=== PATIENT | female | born 1935 | race Caucasian/White ===

== ENCOUNTER 2017-11-14 10:08 | Observation (INO) | payer OTHER ==
--- NOTE | 2017-11-14 10:32 | RAD REPORT ---
EXAM DESCRIPTION: CT - Ct Stroke Brain Wo Cont - 11/14/2017 10:24 am CLINICAL HISTORY: Aphasia, acute CVA, stroke protocol study CLINICAL HISTORY: CT February 2016 TECHNIQUE: Axial 5 millimeter thick images of the head were obtained without IV contrast. All CT scans are performed using dose optimization technique as appropriate and may include automated exposure control or mA/KV adjustment according to patient size. FINDINGS: No intracranial hemorrhage, mass, or cerebral edema. No acute cortical based infarction. A trophy changes are mild. Mild chronic ischemic changes are present. Ventricular size is in proportion to volume loss. Dense arterial tree calcifications are present. No extra-axial fluid collections. G ray matter-white matter differentiation is preserved. Visualized portions of the mastoid air cells, paranasal sinuses, and orbits are unremarkable. Findings telephoned to doctor Simmons 10:28 a.m.. IMPRESSION: No CT evidence of acute intracranial process. Mild atrophy and mild chronic ischemic changes are similar to prior imaging. Chronic ischemic changes can mask nonhemorrhagic acute infarction. MR brain followup can be obtained if there is ongoing concern for acute ischemia.
--- NOTE | 2017-11-14 10:54 | EDPHYS ---
Physician Documentation [facility] Name: Radha Lara Age: 82 yrs Sex: Female : 1935 Arrival Date: 11/14/2017 Time: 10:13 Bed 2 Private MD: Elli Britt ED Physician Reynold Paredes HPI: 11/14 10:58 This 82 yrs old Female presents to ER via Wheelchair with complaints of S/S gs of Possible Stroke. 10:58 The patient's problem is reported as dysphasia, expressive aphasia. Onset: The gs symptoms/episode began/occurred today, at 08:00. Duration: This was a single incident. The symptoms are alleviated by nothing. The symptoms are aggravated by nothing. Associated signs and symptoms: Pertinent negatives: agitation, blurred vision, confusion, shortness of breath, vertigo, weakness. Severity of symptoms: At their worst the symptoms were moderate in the emergency department the symptoms have improved markedly, essentially resolved. The patient has experienced similar episodes in the past, a few times. Historical: - Allergies: 10:48 Aspirin; jl7 10:48 Codeine; jl7 10:48 Iodinated Contrast Media - IV Dye; jl7 - Home Meds: 10:48 carvedilol 25 mg Oral tab 1 tab 2 times per day [Active]; valsartan 160 mg Oral tab 1 jl7 tab once daily [Active]; verapamil 240 mg Oral TbER 1 tab once daily [Active]; hydralazine 50 mg Oral tab 1 tab 4 times per day [Active]; Eliquis 5 mg Oral tab 2 times per day [Active]; metformin 500 mg Oral Tb24 1 tab 2 times per day [Active]; omeprazole 40 mg Oral cpDR 1 cap once daily [Active]; Crestor 40 mg Oral tab once daily [Active]; ranitidine HCl 75 mg Oral tab as needed [Active]; cranberry Oral twice a day [Active]; Probiotic Oral [Active]; Multiple Vitamins Oral tab daily [Active]; vitamin E Oral once daily [Active]; Vitamin D3 1,000 unit Oral chew daily [Active]; Vitamin B-12 2,000 mcg Oral TbER daily [Active]; magnesium oxide 500 mg Oral cap [Active]; - PMHx: 10:48 Diabetes - NIDDM; Hypertension; Kidney stones; TIA; UTI; Atrial Fib; Acid reflux; jl7 Hyperlipidemia; - PSHx: 10:48 Tonsillectomy; blood clot in lung; stents in kidney; bone-spurs removed; triple bypass; jl7 Cholecystectomy; Hysterectomy; Triple Bypass; Stints in right kidney; Sleep Apnea; Cataract Surgery; - Immunization history:: Adult Immunizations unknown. - Social history:: The patient lives at home, Smoking status: Patient/guardian denies using tobacco. ROS: 10:58 All other systems are negative. gs Exam: 10:58 Head/Face: Normocephalic, atraumatic. Eyes: Pupils equal round and reactive to light, gs extra-ocular motions intact. Lids and lashes normal. Conjunctiva and sclera are non-icteric and not injected. Cornea within normal limits. Periorbital areas with no swelling, redness, or edema. ENT: Nares patent. No nasal discharge, no septal abnormalities noted. Tympanic membranes are normal and external auditory canals are clear. Oropharynx with no redness, swelling, or masses, exudates, or evidence of obstruction, uvula midline. Mucous membranes moist. Neck: Trachea midline, no thyromegaly or masses palpated, and no cervical lymphadenopathy. Supple, full range of motion without nuchal rigidity, or vertebral point tenderness. No Meningismus. Chest/axilla: Normal chest wall appearance and motion. Nontender with no deformity. No lesions are appreciated. Cardiovascular: Regular rate and rhythm with a normal S1 and S2. No gallops, murmurs, or rubs. Normal PMI, no JVD. No pulse deficits. Respiratory: Lungs have equal breath sounds bilaterally, clear to auscultation and percussion. No rales, rhonchi or wheezes noted. No increased work of breathing, no retractions or nasal flaring. Abdomen/GI: Soft, non-tender, with normal bowel sounds. No distension or tympany. No guarding or rebound. No evidence of tenderness throughout. Back: No spinal tenderness. No costovertebral tenderness. Full range of motion. Skin: Warm, dry with normal turgor. Normal color with no rashes, no lesions, and no evidence of cellulitis. MS/ Extremity: Pulses equal, no cyanosis. Neurovascular intact. Full, normal range of motion. Neuro: Awake and alert, GCS 15, oriented to person, place, time, and situation. Cranial nerves II-XII grossly intact. Motor strength 5/5 in all extremities. Sensory grossly intact. Cerebellar exam normal. Normal gait. 10:58 ECG was reviewed by the Attending Physician. Vital Signs: 10:26 BP 191 / 85; Pulse 54; Resp 16 S; Pulse Ox 100% on R/A; Pain 0/10; jl7 10:45 BP 216 / 83; Pulse 55; Resp 16 S; Pulse Ox 99% on R/A; jl7 11:00 BP 206 / 72; Pulse 51; Resp 16 S; Pulse Ox 100% on R/A; jl7 11:15 BP 199 / 60; Pulse 44; Resp 16 S; Pulse Ox 99% on R/A; jl7 11:30 BP 219 / 64; Pulse 53; Resp 16; Pulse Ox 99% ; jl7 11:45 BP 220 / 61; Pulse 53; Resp 16 S; Pulse Ox 99% on R/A; jl7 11:57 BP 169 / 100; Pulse 52; Resp 16 S; Pulse Ox 97% on R/A; Pain 0/10; jl7 12:00 BP 178 / 58; Pulse 54; Resp 18 S; Pulse Ox 98% on R/A; jl7 NIH Stroke Scale Scores: 10:21 NIHSS Score: 0 7 10:58 NIHSS Score: 0 MDM: 10:33 Patient medically screened. 10:58 Differential diagnosis: CVA, TIA, metabolic disorder, drug effects. Data reviewed: vital signs, nurses notes. Response to treatment: the patient's symptoms have markedly improved after treatment, and as a result, I will admit patient. ED course: no tpa discussed risks benefits and low to zero NIH pt doesn't not want so will not administer TPA. 11:02 Physician consultation: Edmundo Diamond MD and will see patient in inpatient room. 11/14 10:34 Order name: Basic Metabolic Panel; Complete Time: 11:38 11/14 10:34 Order name: CBC with Diff; Complete Time: 11:02 11/14 10:34 Order name: PT-INR; Complete Time: 11:38 11/14 10:34 Order name: Troponin (emerg Dept Use Only); Complete Time: 11:38 11/14 10:18 Order name: CT Stroke Brain w/o Contrast; Complete Time: 10:33 11/14 10:34 Order name: XRAY Chest (1 view); Complete Time: 11:38 11/14 10:34 Order name: EKG; Complete Time: 10:34 11/14 10:34 Order name: Cardiac monitoring; Complete Time: 11:03 11/14 10:57 Order name: CONS Physician Consult [facility] 11/14 12:31 Order name: Urine Dipstick--Ancillary (enter results) 11/14 12:35 Order name: Urine Dipstick-Ancillary [facility] 11/14 10:34 Order name: EKG - Nurse/Tech; Complete Time: 11:03 11/14 10:34 Order name: IV Saline Lock; Complete Time: 11:03 11/14 10:34 Order name: Labs collected and sent; Complete Time: 11:03 11/14 10:34 Order name: O2 Per Protocol; Complete Time: 11:03 11/14 10:34 Order name: O2 Sat Monitoring; Complete Time: 11:03 11/14 10:34 Order name: Urine Dipstick-Ancillary (obtain specimen); Complete Time: 12:40 gs EC:58 Rate is 56 beats/min. Rhythm is irregularly irregular. Q waves are Old. T waves are gs Normal. No ST changes noted. Clinical impression: Abnormal EKG without significant change. Interpreted by me. Administered Medications: 11:48 Drug: Enalaprilat 1.25 mg Route: IV; Rate: bolus; Site: right antecubital; jl7 11:51 Follow up: IV Status: Completed infusion jl7 Point of Care Testing: Blood Glucose: 10:18 Blood Glucose: 135 mg/dL; iw Ranges: Critical Glucose Levels:Adult <50 mg/dl or >400 mg/dl <40 mg/dl or >180 mg/dl Disposition: 11/14/17 10:53 Hospitalization ordered by Marielena Bañuelos for Observation. Preliminary diagnosis is Transient cerebral ischemic attacks and related syndromes. - Bed requested for Telemetry/MedSurg (observation). - Status is Observation. tw2 - Condition is Stable. - Problem is new. - Symptoms have improved. UTI on Admission? No Critical care time excluding procedures: 10:58 Critical care time: Bedside Care: 10 minutes, Consultation: 10 minutes, Family gs Intervention: 10 minutes. Total time: 30 minutes NIH Stroke Scale - NIH Stroke Score Date: 11/14/2017 Time: 10:21 Total Score = 0 1a. Level of Consciousness (LOC) - 0(Alert) 1b. Level of Consciousness (LOC) (Year \T\ Age) - 0(Both) 1c. LOC Commands (Open \T\ Closes Eyes/Business Services Sales Agent) - 0(Both) 2. Best Gaze (Lateral Gaze Paresis) - 0(Normal) 3. Visual Field Loss - 0(No visual loss) 4. Facial Palsy - 0(Normal) 5a. Left Arm: Motor (10-second hold) - 0(No drift) 5b. Right Arm: Motor (10-second hold) - 0(No drift) 6a. Left Leg: Motor (5-second hold - always test supine) - 0(No drift) 6b. Right Leg: Motor (5-second hold - always test supine) - 0(No drift) 7. Limb Ataxia (finger/nose \T\ heel/felix - test with eyes open) - 0(Absent) 8. Sensory Loss (pinprick arms/legs/face) - 0(Normal) 9. Best Language: Aphasia (description/naming/reading) - 0(No aphasia) 10. Dysarthria (speech clarity - read or repeat words) - 0(Normal) 11. Extinction and Inattention (visual/tactile/auditory/spatial/personal) - 0(No abnormality) Initials: jl7 NIH Stroke Scale - NIH Stroke Score Date: 11/14/2017 Time: 10:58 Total Score = 0 1a. Level of Consciousness (LOC) - 0(Alert) 1b. Level of Consciousness (LOC) (Year \T\ Age) - 0(Both) 1c. LOC Commands (Open \T\ Closes Eyes/Business Services Sales Agent) - 0(Both) 2. Best Gaze (Lateral Gaze Paresis) - 0(Normal) 3. Visual Field Loss - 0(No visual loss) 4. Facial Palsy - 0(Normal) 5a. Left Arm: Motor (10-second hold) - 0(No drift) 5b. Right Arm: Motor (10-second hold) - 0(No drift) 6a. Left Leg: Motor (5-second hold - always test supine) - 0(No drift) 6b. Right Leg: Motor (5-second hold - always test supine) - 0(No drift) 7. Limb Ataxia (finger/nose \T\ heel/felix - test with eyes open) - 0(Absent) 8. Sensory Loss (pinprick arms/legs/face) - 0(Normal) 9. Best Language: Aphasia (description/naming/reading) - 0(No aphasia) 10. Dysarthria (speech clarity - read or repeat words) - 0(Normal) 11. Extinction and Inattention (visual/tactile/auditory/spatial/personal) - 0(No abnormality) Initials: gs Signatures: Dispatcher [employer] EDSunshine Rao Tara RN RN tw2 Vicente Villatoro RN RN jl7 Diana Mahoney RN RN Reynold Guzmán MD MD
--- NOTE | 2017-11-14 10:54 | ER ---
Nurse's Notes [facility] Name: Radha Lara Age: 82 yrs Sex: Female : 1935 Arrival Date: 11/14/2017 Time: 10:13 Bed 2 Private MD: Elli Britt Diagnosis: Transient cerebral ischemic attacks and related syndromes Presentation: 11/14 10:12 Presenting complaint: Friend states: 2 days ago pt c/o right sided facial numbness and iw right sided weakness, yesterday felt normal, today while eating breakfast at 0900 she all of a sudden had a hard time speaking. Transition of care: patient was not received from another setting of care. 10:12 Method Of Arrival: Wheelchair iw 10:12 Acuity: YOLANDE 2 iw 10:30 No acute neurological deficit is noted. The patients blood glucose was checked before jl7 arriving to the hospital and was found to be normal. Onset of symptoms was November 14, 2017 at 09:00. Initial Sepsis Screen: Does the patient meet any 2 criteria? No. Patient's initial sepsis screen is negative. Does the patient have a suspected source of infection? No. Patient's initial sepsis screen is negative. Care prior to arrival: None. Triage Assessment: 10:26 The onset of the patients symptoms was November 14, 2017 at 09:00. jl7 10:30 General: Appears in no apparent distress. uncomfortable, Behavior is cooperative, jl7 anxious. 10:30 Neuro: Reports "I couldn't find my words.". jl7 Stroke Activation: Symptom onset < 3 hours Physician: Stroke Attending; Name: ; Notified At: ; Arrived At: Physician: Chief Stroke Resident; Name: ; Notified At: ; Arrived At: Physician: Stroke Resident; Name: ; Notified At: ; Arrived At: Physician: ED Attending; Name: ; Notified At: ; Arrived At: Physician: ED Resident; Name: ; Notified At: ; Arrived At: Historical: - Allergies: 10:48 Aspirin; jl7 10:48 Codeine; jl7 10:48 Iodinated Contrast Media - IV Dye; jl7 - Home Meds: 10:48 carvedilol 25 mg Oral tab 1 tab 2 times per day [Active]; valsartan 160 mg Oral tab 1 jl7 tab once daily [Active]; verapamil 240 mg Oral TbER 1 tab once daily [Active]; hydralazine 50 mg Oral tab 1 tab 4 times per day [Active]; Eliquis 5 mg Oral tab 2 times per day [Active]; metformin 500 mg Oral Tb24 1 tab 2 times per day [Active]; omeprazole 40 mg Oral cpDR 1 cap once daily [Active]; Crestor 40 mg Oral tab once daily [Active]; ranitidine HCl 75 mg Oral tab as needed [Active]; cranberry Oral twice a day [Active]; Probiotic Oral [Active]; Multiple Vitamins Oral tab daily [Active]; vitamin E Oral once daily [Active]; Vitamin D3 1,000 unit Oral chew daily [Active]; Vitamin B-12 2,000 mcg Oral TbER daily [Active]; magnesium oxide 500 mg Oral cap [Active]; - PMHx: 10:48 Diabetes - NIDDM; Hypertension; Kidney stones; TIA; UTI; Atrial Fib; Acid reflux; jl7 Hyperlipidemia; - PSHx: 10:48 Tonsillectomy; blood clot in lung; stents in kidney; bone-spurs removed; triple bypass; jl7 Cholecystectomy; Hysterectomy; Triple Bypass; Stints in right kidney; Sleep Apnea; Cataract Surgery; - Immunization history:: Adult Immunizations unknown. - Social history:: The patient lives at home, Smoking status: Patient/guardian denies using tobacco. Screenin:40 Abuse screen: Denies threats or abuse. Denies injuries from another. Nutritional jl7 screening: No deficits noted. Tuberculosis screening: No symptoms or risk factors identified. Fall Risk IV access (20 points). Mental Status- Oriented to own ability (0 pts). Total Glez Fall Scale indicates No Risk (0-24 pts). Assessment: 10:14 Reassessment: To CT via wheelchair with LAILA Marcos. jl7 10:20 General: Appears in no apparent distress. uncomfortable, Behavior is cooperative, jl7 anxious. Pain: Denies pain. Neuro: Level of Consciousness is awake, alert, obeys commands, Oriented to person, place, time, situation, Copier And Printer Field Technician are equal bilaterally Moves all extremities. Gait is steady, Speech is normal, Facial symmetry appears normal, Pupils are PERRLA. Cardiovascular: Denies chest pain, Heart tones S1 S2 present Patient's skin is warm and dry. Respiratory: Airway is patent Respiratory effort is even, unlabored, Respiratory pattern is regular, symmetrical, Breath sounds are clear bilaterally. Denies shortness of breath. GI: No signs and/or symptoms were reported involving the gastrointestinal system. Patient currently denies diarrhea, nausea, vomiting. : No signs and/or symptoms were reported regarding the genitourinary system. EENT: No signs and/or symptoms were reported regarding the EENT system. Derm: Skin is pink, warm \\T\\ dry. Musculoskeletal: No signs and/or symptoms reported regarding the musculoskeletal system. 10:30 T-PA (Activase) Screening: Contraindications: Is the patient on Aspirin, Heparin, or jl7 Warfarin: Yes. 10:35 The patient has not been NPO before screening. The patient is currently on the jl7 following diet: regular The patient is alert, and able to follow commands. The patient does not exhibit slurred or garbled speech. The patient is not exhibiting difficulty speaking. The patient does not exhibit difficulty understanding words. The patient is able to swallow own secretions with no drooling or need for suction. The patient did not tolerate one teaspoon of water. Drooling, immediate coughing, gurgling, or clearing of the throat was noted. Bedside swallow screening discontinued. Patient kept NPO until cleared by Speech Therapy or Physician. The patient failed the bedside swallow screening. The patient will be kept NPO until cleared by Speech Therapy or Physician. Provider notified of bedside swallow screening results: Reynold Paredes MD. 10:40 Reassessment: Daughter at bedside. 7 10:[address] Paredes, pt swallowing own secretions, ordered to re-assess swallow screen. jl7 Patient tolerated one teaspoon of water. No drooling, immediate coughing, gurgling, or clearing of the throat was noted. . The patient tolerated 90mL of water. No drooling, immediate coughing, gurgling, or clearing of the throat was noted. The patient passed the bedside swallow screening. Oral medications may be given as ordered. Contact Physician for further diet orders. Provider notified of bedside swallow screening results: Reynold Paredes MD. 11:20 Reassessment: No changes from previously documented assessment. Patient and/or family jl7 updated on plan of care and expected duration. Pain level reassessed. Patient is alert, oriented x 3, equal unlabored respirations, skin warm/dry/pink. Daughter remains at bedside. 12:00 Reassessment: Assisted pt to bathroom via wheel chair. Pt denies discomfort at this jl7 time. 12:15 Reassessment: Pt to MRI via wheelchair. jl7 Vital Signs: 10:26 BP 191 / 85; Pulse 54; Resp 16 S; Pulse Ox 100% on R/A; Pain 0/10; jl7 10:45 BP 216 / 83; Pulse 55; Resp 16 S; Pulse Ox 99% on R/A; jl7 11:00 BP 206 / 72; Pulse 51; Resp 16 S; Pulse Ox 100% on R/A; jl7 11:15 BP 199 / 60; Pulse 44; Resp 16 S; Pulse Ox 99% on R/A; jl7 11:30 BP 219 / 64; Pulse 53; Resp 16; Pulse Ox 99% ; jl7 11:45 BP 220 / 61; Pulse 53; Resp 16 S; Pulse Ox 99% on R/A; jl7 11:57 BP 169 / 100; Pulse 52; Resp 16 S; Pulse Ox 97% on R/A; Pain 0/10; jl7 12:00 BP 178 / 58; Pulse 54; Resp 18 S; Pulse Ox 98% on R/A; jl7 NIH Stroke Scale Scores: 10:21 NIHSS Score: 0 jl7 10:58 NIHSS Score: 0 ED Course: 10:13 Patient arrived in ED. mr 10:13 Elli Britt MD is Private Physician. mr 10:17 Vicente Villatoro, LAILA is Primary Nurse. jl7 10:20 Reynold Paredes MD is Attending Physician. gs 10:20 Triage completed. iw 10:23 CT Stroke Brain w/o Contrast In Process Unspecified. EDMS 10:26 Arm band placed on right wrist. jl7 10:30 Patient has correct armband on for positive identification. Placed in gown. Bed in low jl7 position. Call light in reach. Side rails up X2. monitoring and evaluation advisor on. Pulse ox on. NIBP on. Warm blanket given. 10:37 EKG done, by radio television technical director. reviewed by Reynold Paredes MD. at1 10:46 Missed attempt(s): 20 gauge in left antecubital area. jb1 10:46 Inserted saline lock: 24 gauge in right antecubital area, using aseptic technique. jb1 Blood collected. 10:53 Marielena Bañuelos MD is Hospitalizing Provider. gs 10:54 X-ray completed. Portable x-ray completed in exam room. Patient tolerated procedure jb2 well. 10:55 XRAY Chest (1 view) In Process Unspecified. EDMS 12:22 Patient moved to MRI via wheelchair. ka 12:45 Urine collected: clean catch specimen, cloudy, izabel colored. jb1 13:04 MRI completed. Patient tolerated well. Patient moved back from MRI. ka 13:23 No provider procedures requiring assistance completed. Patient admitted, IV remains in tw2 place. Administered Medications: 11:48 Drug: Enalaprilat 1.25 mg Route: IV; Rate: bolus; Site: right antecubital; jl7 11:51 Follow up: IV Status: Completed infusion jl7 Point of Care Testing: Blood Glucose: 10:18 Blood Glucose: 135 mg/dL; iw Ranges: Outcome: 10:53 Decision to Hospitalize by Provider. gs 13:23 Admitted to Med/surg accompanied by tech, with chart. tw2 13:23 Condition: stable 13:23 Instructed on the need for admit. 13:24 Patient left the ED. tw2 NIH Stroke Scale - NIH Stroke Score Date: 11/14/2017 Time: 10:21 Total Score = 0 1a. Level of Consciousness (LOC) - 0(Alert) 1b. Level of Consciousness (LOC) (Year \\T\\ Age) - 0(Both) 1c. LOC Commands (Open \\T\\ Closes Eyes/Agricultural Real Estate Agent) - 0(Both) 2. Best Gaze (Lateral Gaze Paresis) - 0(Normal) 3. Visual Field Loss - 0(No visual loss) 4. Facial Palsy - 0(Normal) 5a. Left Arm: Motor (10-second hold) - 0(No drift) 5b. Right Arm: Motor (10-second hold) - 0(No drift) 6a. Left Leg: Motor (5-second hold - always test supine) - 0(No drift) 6b. Right Leg: Motor (5-second hold - always test supine) - 0(No drift) 7. Limb Ataxia (finger/nose \\T\\ heel/felix - test with eyes open) - 0(Absent) 8. Sensory Loss (pinprick arms/legs/face) - 0(Normal) 9. Best Language: Aphasia (description/naming/reading) - 0(No aphasia) 10. Dysarthria (speech clarity - read or repeat words) - 0(Normal) 11. Extinction and Inattention (visual/tactile/auditory/spatial/personal) - 0(No abnormality) Initials: jl7 NIH Stroke Scale - NIH Stroke Score Date: 11/14/2017 Time: 10:58 Total Score = 0 1a. Level of Consciousness (LOC) - 0(Alert) 1b. Level of Consciousness (LOC) (Year \\T\\ Age) - 0(Both) 1c. LOC Commands (Open \\T\\ Closes Eyes/Agricultural Real Estate Agent) - 0(Both) 2. Best Gaze (Lateral Gaze Paresis) - 0(Normal) 3. Visual Field Loss - 0(No visual loss) 4. Facial Palsy - 0(Normal) 5a. Left Arm: Motor (10-second hold) - 0(No drift) 5b. Right Arm: Motor (10-second hold) - 0(No drift) 6a. Left Leg: Motor (5-second hold - always test supine) - 0(No drift) 6b. Right Leg: Motor (5-second hold - always test supine) - 0(No drift) 7. Limb Ataxia (finger/nose \\T\\ heel/felix - test with eyes open) - 0(Absent) 8. Sensory Loss (pinprick arms/legs/face) - 0(Normal) 9. Best Language: Aphasia (description/naming/reading) - 0(No aphasia) 10. Dysarthria (speech clarity - read or repeat words) - 0(Normal) 11. Extinction and Inattention (visual/tactile/auditory/spatial/personal) - 0(No abnormality) Initials: gs Signatures: Dispatcher [employer] EDMS Marc Gonzalez jb1 Keila Hanna Arun Russell jb2 Priti Crawford, LAILA RN iw Amaya garzon, sawdust machine operator EKG Tat1 Viola Aguirre Tara, RN RN tw2 Vicente Villatoro RN RN jl7 Reynold Paredes MD MD gs
[2017-11-14 11:00] LABS: Absolute Lymphocytes (CBC) 2.4 K/uL (0.7-4.9); Absolute Monocytes 0.7 K/uL (0.1-1.3); Absolute Neutrophil 3.9 K/uL (1.8-8.0); Basophils % 0.6 % (0-1.3); Eosinophils % 4.9 % (0-4.4); Hematocrit 40.2 % (36.0-45.0); MCH 32.4 pg (27.0-35.0); MCV 95.8 fL (80-100); MPV 7.8 fL (7.6-11.3); Monocytes % 9.3 % (3.3-12.3)
[2017-11-14 11:08] LABS: Protime INR 1.23
[2017-11-14 11:13] LABS: Bicarbonate 26 mEq/L (21-31); Glucose Level 123 mg/dL (65-120); Potassium 4.1 mEq/L (3.6-5.0); Sodium Level 135 mEq/L (135-145)
[2017-11-14 11:14] LABS: BUN Blood Urea Nitrogen 14 mg/dL (6-20)
[2017-11-14] MEDS ORDERED: ONDANSETRON 4 MG/2 ML VIAL IV PRN (11:14)
[2017-11-14] MEDS ORDERED: ACETAMINOPHEN 500 MG TAB PO PRN (11:14)
--- NOTE | 2017-11-14 11:34 | RAD REPORT ---
EXAM DESCRIPTION: RAD - Chest Single View - 11/14/2017 11:02 am CLINICAL HISTORY: Code stroke chest film COMPARISON: June 2017 TECHNIQUE: AP portable chest image was obtained 1034 hours . FINDINGS: No mass, consolidation or pulmonary edema. Mild cardiomegaly present without vascular engo rgement. Sternotomy wires are in place. Trachea is midline. No measurable pleural effusion and no pne umothorax. No gross bony abnormality seen. No acute aortic findings suspected. IMPRESSION: No acute cardiopulmonary process. Chest findings are similar to June 28, 2017 imaging.
[2017-11-14] MEDS ORDERED: ENALAPRILAT 1.25 MG/ML VIAL IV ONE (11:44)
[2017-11-14 12:34] LABS: Urine Blood NEGATIVE (NEG); Urine Glucose NEGATIVE (NEG); Urine Protein NEGATIVE (NEG); Urine Specific Gravity 1.015 (1.005-1.030)
--- NOTE | 2017-11-14 13:32 | RAD REPORT ---
EXAM DESCRIPTION: MRI - Stroke Protocol - 11/14/2017 1:09 pm CLINICAL HISTORY: TIA, possible CVA, slurred speech, right-sided face and arm numbness COMPARISON: CT head November 14 TECHNIQUE: Sagittal T1- weighted images were obtained along with PD/heavily T2- weighted and T2-FLAI R images. Axial DWI and ADC mapping sequences were also obtained. Coronal heavily T2- weighted images were obtained. MRA head imaging performed with source images and 3D reconstruction images reviewed. MRA neck imaging was performed with source and 3D reconstruction imaging reviewed. Post contrast T1 i maging was performed. A 14 ml GD dosage was utilized. FINDINGS: No intracranial hemorrhage, mass or acute infarction. There is no edema or shift of midlin e structures. No extra-axial fluid collections. Alberto-matter/white matter junction is preserved. Signa l voids are seen as a normal finding in the major intracranial vessels. Mild atrophy changes are pres ent. Mild to moderate chronic ischemic changes are present in the cerebral white matter. Brainstem an d basal ganglia are spared any significant chronic ischemic change. Ventricles are in proportion to v olume loss. Mastoid air cells and paranasal sinuses are clear. No globe or orbit abnormality. MRA Head imaging shows no aneurysm or vascular malformation. Advanced atherosclerotic changes are pre sent causing luminal narrowing and irregular contour to the left-side M1 MCA and A1 MONSERRAT segments near the inupiat of Lawson. More peripherally in the bilateral middle cerebral artery distributions athero sclerotic changes are mild. Mild atherosclerotic changes are present in the posterior cerebral artery circulations. Tortuosity of the basilar artery noted without stenosis. Left vertebral artery is do minant. Aortic arch is 3 vessel with no origin stenosis. Vertebral artery origins are not adequately visualiz ed for assessment. No vertebral artery stenosis or dissection.Approximately 50% stenosis noted at the origin of each internal carotid artery. No dissection. IMPRESSION: No acute infarction changes are present. No hemorrhage, mass or acute intracranial findi ng. Intracranial atherosclerotic changes are present with significant disease involving the A1 MONSERRAT and M1 MCA segments. Elsewhere the atherosclerotic intracranial disease is more mild. Approximately 50% stenosis of each internal carotid artery origin. Atrophy and chronic ischemic changes are present. Ventricular size is in proportion.
--- NOTE | 2017-11-14 13:53 | EKG ---
Test Date: 2017-11-14 Test Time: 10:34:49 Warehouse Delivery Manager: RIYA MEASUREMENT RESULTS: Intervals: Rate: 56 DE: QRSD: 98 QT: 434 QTc: 418 [place]: P: DE: QRS: 51 T: 86 INTERPRETIVE STATEMENTS: Atrial fibrillation with slow ventricular response with premature ventricular or aberrantly conducted complexes Septal infarct, age undetermined Abnormal ECG Compared to ECG 06/29/2017 07:35:23 Myocardial infarct finding now present ST (T wave) deviation no longer present Possible ischemia no longer present Electronically Signed On 11-14-17 13:52:35 CDT by Ayaan Ni
[2017-11-14 15:35] LABS: Thyroid Stimulating Hormone 3.56 uIU/mL (0.34-5.60)
[2017-11-14 16:39] VITALS: BMI 24.3
[2017-11-14] MEDS ORDERED: PNEUMOCOCCAL VACCINE 0.5 ML IMVAC ONE (17:00)
[2017-11-14] MEDS ORDERED: HYDRALAZINE HCL 25 MG TABLET PO ONE (17:45)
[2017-11-14] MEDS ORDERED: ACETAMINOPHEN PO PRN (17:53)
[2017-11-14] MEDS ORDERED: RANITIDINE HCL 75 MG PO PRN (17:53)
[2017-11-14] MEDS ORDERED: RANITIDINE 150 MG TABLET PO PRN (18:17)
[2017-11-14] MEDS ORDERED: ACETAMINOPHEN 325 MG TABLET PO PRN (18:28)
[2017-11-14] MEDS ORDERED: D50W 25 GM/50 ML SYRINGE IV PRN (18:30)
[2017-11-14] MEDS ORDERED: GLUCAGON 1 MG/VIAL IM PRN (18:30)
--- NOTE | 2017-11-14 18:36 | P.HP ---
Certification for Inpatient Patient admitted to: Observation With expected LOS: <2 Midnights Patient will require the following post-hospital care: None Practitioner: I am a practitioner with admitting privileges, knowledge of patient current condition, hospital course, and medical plan of care. Services: Services provided to patient in accordance with Admission requirements found in Title 42 Section 412.3 of the Code of Federal Regulations Patient History Date of Service: 11/14/17 Primary Care Provider: Dr Britt Reason for admission: TIA History of Present Illness: This is a 82-year-old female with significant past medical history of hypertension, hyperlipidemia, diabetes, atrial fibrillation, acid reflux, who presented to the ED complaining of dysarthria. Patient stated that it is 2-3 days ago she started noticing that she was having a facial droop however could not think of anything at that time. And just resumed her normal daily activity. However this morning around 9AM patient was having breakfast with her friend who noticed that she was having trouble speaking and thus the decided to come to the ER. Patient has never had anything like this happen to her before this is the 1st time that she has these symptoms. In the ER patient was alert and oriented x3 in no neurological deficits were noted. Medicine team was thus consulted to admit the patient for further workup. Allergies aspirin Adverse Reaction (Verified 06/28/17 21:58) RAPID HEART RATE clonidine Adverse Reaction (Verified 06/28/17 21:58) Rapid Heart Rate codeine [Codeine] Adverse Reaction (Verified 06/28/17 21:58) CONFUSION hydrocodone bitartrate [From Vicodin] Adverse Reaction (Verified 06/28/17 21:58) CONFUSION iodine Adverse Reaction (Verified 06/28/17 21:58) NAUSEA lisinopril Adverse Reaction (Verified 06/28/17 21:58) COUGH niacin Adverse Reaction (Verified 06/28/17 21:58) Rash nitrofurantoin Adverse Reaction (Verified 11/14/17 15:31) Itching/Hives/Rash nitrous oxide [Nitrous Oxide] Adverse Reaction (Verified 06/28/17 21:58) Shortness of breath iodine dye Allergy (Intermediate, Uncoded 06/28/17 21:58) Itching/Hives/Rash Home Medications: Carvedilol [Coreg*] 25 mg PO BID 05/22/14 Cranberry Conc/Ascorbic Acid [Cranberry 12,600 mg Softgel] 4,200 mg PO BID 05/22 Multivitamin [One Daily Multivitamin] 1 each PO DAILY 05/22/14 Omeprazole [Prilosec] 1 tab PO DAILY 05/22/14 Vitamin E [Vitamin E*] 400 iu PO DAILY 09/30/14 Apixaban [Eliquis] 5 mg PO BID 11/13/15 Metformin HCl [Glucophage*] 1 tab PO BID 11/13/15 Verapamil HCl [Verapamil ER] 240 mg PO BEDTIME 11/13/15 Cyanocobalamin [Vitamin B-12*] 2,000 mcg PO DAILY 11/17/15 Magnesium Oxide [Magnesium] 500 mg PO DAILY 05/15/16 Ranitidine HCl 75 mg PO DAILY PRN 05/15/16 Rosuvastatin Calcium [Crestor] 40 mg PO DAILY 05/15/16 Valsartan/Hydrochlorothiazide [Valsartan-Hctz 160-12.5 mg Tab] 1 each PO DAILY 05/15/16 Hydralazine HCl [Apresoline] 50 mg PO QID #120 tablet 06/30/17 Acetaminophen [Tylenol Arthritis] 1 tab PO Q6H PRN 11/14/17 Cholecalciferol (Vitamin D3) [Vitamin D3] 1,000 unit PO DAILY 11/14/17 L.acidoph,Paracasei, B.lactis [Probiotic] 1 each PO BEDTIME 11/14/17 - Past Medical/Surgical History Has patient received pneumonia vaccine in the past: Yes Diabetic: Yes -: Kidney Stones -: TIA -: PUMONARY EMBOLISM -: DM -: CAD -: tonsillectomy -: colon polyps -: CABG -: Cholecystectomy -: Hysterectomy -: Bone Spurs removed -: Triple Bypass -: 3 Stents in right kidney - Family History Mother -: Heart disease, Other (see notes) Notes: [place]. Age of 64 Father -: Heart disease Notes: Age of 77 - Social History Smoking Status: Never smoker Alcohol use: No CD- Drugs: No Caffeine use: No Place of Residence: Home Review of Systems General: As per HPI Physical Examination - Vital Signs Temperature: 96.3 F Blood Pressure: 186/77 Pulse: 52 Respirations: 16 Pulse Ox (%): 96 - Physical Exam General: Alert, In no apparent distress, Oriented x3 HEENT: Atraumatic Neck: Supple Respiratory: Clear to auscultation bilaterally, Normal air movement Cardiovascular: Regular rate/rhythm, Normal S1 S2 Gastrointestinal: Normal bowel sounds, Soft and benign, Non-distended, No tenderness Musculoskeletal: No tenderness Integumentary: No rashes Neurological: Normal gait, Normal strength at 5/5 x4 extr, Normal tone, Abnormal speech Lymphatics: No axilla or inguinal lymphadenopathy - Studies Laboratory Data (last 24 hrs) 11/14/17 10:30: PT 14.5 H, INR 1.23 11/14/17 10:30: WBC 7.4, Hgb 13.6, Hct 40.2, Plt Count 202 11/14/17 10:30: Sodium 135, Potassium 4.1, BUN 14, Creatinine 0.54, Glucose 123 H Assessment and Plan - Problems (Diagnosis) (1) TIA (transient ischemic attack) Current Visit: Yes Status: Acute Plan: Right sided Weakness and facial Droop with Dysarthia today -Head CT negative -MRI stroke pending -Neurology consulted. Awaiting reccs -On high intensity statin and Eleiquis at this time -PT/OT Qualifiers: Transient cerebral ischemia type: other Qualified Code(s): G45.8 - Other transient cerebral ischemic attacks and related syndromes (2) HTN (hypertension) Current Visit: Yes Status: Chronic Qualifiers: Hypertension type: essential hypertension Qualified Code(s): I10 - Essential (primary) hypertension (3) Atrial fibrillation Onset Date: 11/13/15 Current Visit: No Status: Chronic Qualifiers: Atrial fibrillation type: chronic (4) Diabetes mellitus Onset Date: 11/13/15 Current Visit: No Status: Chronic Qualifiers: Diabetes mellitus type: type 2 Diabetes mellitus fdc insulin use: without fdc use Diabetes mellitus complication status: without complication Qualified Code(s): E11.9 - Type 2 diabetes mellitus without complications (5) GERD (gastroesophageal reflux disease) Current Visit: Yes Status: Chronic Qualifiers: Esophagitis presence: without esophagitis Qualified Code(s): K21.9 - Gastro -esophageal reflux disease without esophagitis Discharge Plan: Home Plan to discharge in: 24 Hours - Advance Directives Does patient have a Living Will: Yes Does patient have a Durable POA for Healthcare: Yes
[2017-11-14] MEDS: INSULIN -REGULAR HUMAN 50 UNIT/0.5 ML ML SQ SCH (21:00)
[2017-11-14] MEDS ORDERED: HOME MED 1 EA UNK (Hydralazine Hcl [Apresoline] 50 MG) PO SCH (21:00)
[2017-11-14] MEDS: ASCORBIC ACID PO SCH (21:00)
[2017-11-14] MEDS ORDERED: HOME MED 1 EA UNK (L.Acidoph,Paracasei, B.Lactis [Probiotic] 1 EACH) PO SCH (21:00)
[2017-11-14] MEDS ORDERED: VERAPAMIL SR 240 MG TABLET PO SCH (21:00)
[2017-11-14] MEDS ORDERED: VERAPAMIL HCL 240 MG PO SCH (21:00)
[2017-11-14] MEDS ORDERED: ATORVASTATIN 40 MG TAB PO SCH (21:00)
[2017-11-14] MEDS: CRANBERRY PO SCH (21:00)
[2017-11-14] MEDS ORDERED: ROSUVASTATIN 10 MG TAB PO SCH (21:00)
[2017-11-14] MEDS: LACTOBACILLUS/ACIDOPHILUS TAB PO SCH ×2 (21:00→21:19)
[2017-11-14] MEDS: CARVEDILOL 25 MG TAB PO SCH (21:03)
[2017-11-14] MEDS: APIXABAN 5 MG TABLET PO SCH (21:03)
[2017-11-14 22:14] VITALS: O2SAT 97
[2017-11-14] MEDS: HYDRALAZINE HCL 25 MG TABLET PO SCH (23:00)
--- NOTE | 2017-11-15 00:36 | CON ---
Date of Consultation: 11/14/2017 Reason: TIA. History: This is an 82-year-old lady with a history of hypertension, hyperlipidemia, vascular disease, history of kidney stones, diabetes, prior bypass. She was in her usual state of health until really today. She woke up, she felt fine. 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 While there, she had abrupt onset of dysarthria. She was brought to the Emergency Department , and by the time she arrived in the Emergency Department, symptoms were improving quite rapidly as she was on Eliquis, and had rapidly improving symptoms. Decision was made not to administer tPA. CT scan was negative. She was admitted. Since being admitted, brain MRI has been performed which is normal. No evidence of stroke, but she does have significant intracranial atherosclerosis. As noted at this juncture, symptoms have resolved completely. Neurologic consultation was requested. Past Medical History: As alluded to. Medications: Routinely, carvedilol, cranberry, multivitamin, Eliquis 5 mg twice daily, and the patient states she has good compliance with that medicine. Metformin, verapamil, B12, magnesium, Zantac, Crestor 40, valsartan, hydrochlorothiazide, hydralazine. Social History: Never smoked. Independent with activities of daily living. Family History: Heart disease, mother. Heart disease, father. Review of Systems: General: Good health. Eyes: Anisocoria, postsurgical. Ears, Ears, Nose, Throat: Dysarthria resolved. Cardiovascular: Atrial fibrillation. Pulmonary: Negative. GI: Negative. : History of kidney stones. Musculoskeletal: Arthralgias. Neurologic: As noted. Psychiatric: Negative. Endocrine: Diabetes. Hematologic: Negative. Physical Examination: Vital Signs: 96.3, 52, 16, 186/77. General: Pleasant lady, sitting in bed, in no distress. She is awake, alert, oriented to time, person, place, situation. Heart: Irregularly, irregular. Lungs: Clear. Abdomen: Soft. Bowel sounds present. No carotid bruits. Eyes: Pupils reactive. Anisocoria OD greater than OS. OD is postsurgical and slightly irregular after cataract extraction. Ocular motion full. Parker full. Facial strength sensation normal. Tongue protrudes evenly. Soft palate elevates symmetrically bilaterally. Extremity: Strength full. Sensation intact. No cortical extinction. Reflexes 1/4. Toes are downgoing. Cerebellar exam demonstrates no ataxia. Pertinent Laboratory Data: MRI as noted. EKG, atrial fibrillation with slow ventricular response. CT as noted, negative for acute event. Chest x-ray, cardiomegaly and prior median sternotomy. White count normal, hemoglobin normal , platelets normal. Creatinine 0.54, glucose 140, LDL 27, total cholesterol 101. TSH normal. B12 874. Impression: Transient ischemic attack. Plan: The patient is on really maximal medical therapy for her problem. Lipids are good. I would suggest just continuing the Crestor her treating avionics systems repairer is Dr. Ni. I think the only medication adjustments that might be fruitful would be perhaps to work on her antihypertensive regimen. She states that it is difficult to control and she is on multiple medications for that problem. The patient's allergies include aspirin, clonidine, codeine, hydrocodone, and iodine. There has been some suggestions that Xa inhibitors with the addition of anti-platelet agent to be helpful for intracranial atherosclerosis, i.e., low-dose aspirin, but with the aspirin allergy, she states it causes heart fluttering, but even with that, I think I would be hesitant to empirically add that to her regimen, so I think the prudent thing to do is to observe the patient overnight for any recurrent events and if she remains at baseline tomorrow, and I think she can safely be discharged to home with just the recommendation to monitor her blood pressure, and bring those readings to her avionics systems repairer and see if any additional changes in her antihypertensive regimen are warranted. Thank you for the consult. MI Voice ID: [id number] Report ID: [id number] MAURA
[2017-11-15 05:41] LABS: Absolute Lymphocytes (CBC) 2.5 K/uL (0.7-4.9); Absolute Monocytes 0.8 K/uL (0.1-1.3); Absolute Neutrophil 3.7 K/uL (1.8-8.0); Basophils % 0.6 % (0-1.3); Eosinophils % 4.5 % (0-4.4); Hematocrit 37.2 % (36.0-45.0); Lymphocytes % 34.3 % (15.3-44.8); MCH 32.1 pg (27.0-35.0); MPV 8.4 fL (7.6-11.3); Monocytes % 10.6 % (3.3-12.3); RBC Red Blood Cell Count 3.87 M/uL (3.86-4.86)
[2017-11-15 06:48] LABS: ALT/SGPT 17 IU/L (10-60); AST/SGOT 21 IU/L (10-42); Albumin 3.4 g/dL (3.2-5.5); Alkaline Phosphatase 63 IU/L (42-121); BUN Blood Urea Nitrogen 15 mg/dL (6-20); Bicarbonate 27 mEq/L (21-31); Bilirubin Total 0.6 mg/dL (0.3-1.2); Glucose Level 114 mg/dL (65-120); Magnesium 1.9 mg/dL (1.8-2.5); Phosphorus 4.1 mg/dL (2.5-4.3); Protein, Total 5.8 g/dL (6.0-8.3); Sodium Level 135 mEq/L (135-145)
[2017-11-15 07:22] LABS: Thyroid Stimulating Hormone 6.14 uIU/mL (0.34-5.60)
[2017-11-15] MEDS ORDERED: PANTOPRAZOLE 40MG TABLET PO SCH (07:30)
[2017-11-15] MEDS: INSULIN -REGULAR HUMAN 50 UNIT/0.5 ML ML SQ SCH ×3 (07:30→16:30)
[2017-11-15] MEDS: HYDRALAZINE HCL 25 MG TABLET PO SCH (08:51)
[2017-11-15] MEDS: hydroCHLOROthiazide 12.5 MG CAP PO SCH ×2 (08:52→09:00)
[2017-11-15] MEDS: APIXABAN 5 MG TABLET PO SCH (08:52)
[2017-11-15] MEDS: CRANBERRY PO SCH (08:53)
[2017-11-15] MEDS: ASCORBIC ACID PO SCH (08:53)
[2017-11-15] MEDS: CARVEDILOL 25 MG TAB PO SCH (08:53)
[2017-11-15] MEDS ORDERED: HOME MED 1 EA UNK (Rosuvastatin Calcium [Crestor] 40 MG) PO SCH (09:00)
[2017-11-15] MEDS ORDERED: VALSARTAN PO SCH (09:00)
[2017-11-15] MEDS ORDERED: HOME MED 1 EA UNK (Cholecalciferol (Vitamin D3) [Vitamin D3] 1,000 UNIT) PO SCH (09:00)
[2017-11-15] MEDS ORDERED: CYANOCOBALAMIN 1,000 MCG TAB PO SCH (09:00)
[2017-11-15] MEDS ORDERED: VITAMIN E 400 IU CAP PO SCH (09:00)
[2017-11-15] MEDS ORDERED: HOME MED 1 EA UNK (Omeprazole [Prilosec] 1 TAB) PO SCH (09:00)
[2017-11-15] MEDS ORDERED: MULTIVITAMIN PO SCH (09:00)
[2017-11-15] MEDS ORDERED: MULTIVITAMIN TAB PO SCH (09:00)
[2017-11-15] MEDS ORDERED: ASPIRIN 81 MG CHEWABLE TABLET PO SCH (09:00)
[2017-11-15] MEDS ORDERED: [UNRECOGNIZED DRUG - OTHER] PO SCH (09:00)
[2017-11-15] MEDS ORDERED: VALSARTAN 160 MG TAB PO SCH (09:00)
[2017-11-15] MEDS ORDERED: HYDROCHLOROTHIAZIDE PO SCH (09:00)
[2017-11-15] MEDS ORDERED: HOME MED 1 EA UNK (Magnesium Oxide [Magnesium] 500 MG) PO SCH (09:00)
[2017-11-15] MEDS ORDERED: VITAMIN D 1000 UNIT TAB PO SCH (09:00)
[2017-11-15] MEDS ORDERED: HYDRALAZINE HCL 25 MG TABLET PO SCH (14:00)
--- NOTE | 2017-11-15 14:10 | RAD REPORT ---
EXAM DESCRIPTION: VAS - Abdomen Pelvis Scan - 11/15/2017 1:51 pm CLINICAL HISTORY: High blood pressure COMPARISON: 04/30/2014 FINDINGS: The bilateral kidneys are normal in size, the right measuring 9.1 x 3.9 x 3.8 cm and the l eft measuring 12.1 x 4.9 x 4.4 cm. Several cysts are present involving both kidneys. Aortic velocity: 89 cm/second Right proximal renal artery: 178 cm/second Right mid renal artery: 109 cm/second Right distal renal artery: 115 cm/second Right renal arcuate artery resistive index: 0.7 Right renal artery / aorta ratio: 2.0 Left proximal renal artery: 179 cm/second Left mid renal artery: 107 cm/second Left distal renal artery: 118 cm/second Left renal arcuate artery resistive index: 0.7 Left renal artery/aorta ratio: 2.0 Normal waveforms demonstrated within the bilateral renal arteries. IMPRESSION: No evidence of hemodynamically significant stenosis within the bilateral renal arteries.
[2017-11-15 17:09] VITALS: BP 197/81; TEMP 98.4
--- NOTE | 2017-11-15 18:19 | P.SSS ---
Patient History Date of Service: 11/15/17 Primary Care Provider: Dr Britt Reason for admission: TIA History of Present Illness: This is a 82-year-old female with significant past medical history of hypertension, hyperlipidemia, diabetes, atrial fibrillation, acid reflux, who presented to the ED complaining of dysarthria. Patient stated that it is 2-3 days ago she started noticing that she was having a facial droop however could not think of anything at that time. And just resumed her normal daily activity. However this morning around 9AM patient was having breakfast with her friend who noticed that she was having trouble speaking and thus the decided to come to the ER. Patient has never had anything like this happen to her before this is the 1st time that she has these symptoms. In the ER patient was alert and oriented x3 in no neurological deficits were noted. Medicine team was thus consulted to admit the patient for further workup. Allergies aspirin Adverse Reaction (Verified 06/28/17 21:58) RAPID HEART RATE clonidine Adverse Reaction (Verified 06/28/17 21:58) Rapid Heart Rate codeine [Codeine] Adverse Reaction (Verified 06/28/17 21:58) CONFUSION hydrocodone bitartrate [From Vicodin] Adverse Reaction (Verified 06/28/17 21:58) CONFUSION iodine Adverse Reaction (Verified 06/28/17 21:58) NAUSEA lisinopril Adverse Reaction (Verified 06/28/17 21:58) COUGH niacin Adverse Reaction (Verified 06/28/17 21:58) Rash nitrofurantoin Adverse Reaction (Verified 11/14/17 15:31) Itching/Hives/Rash nitrous oxide [Nitrous Oxide] Adverse Reaction (Verified 06/28/17 21:58) Shortness of breath iodine dye Allergy (Intermediate, Uncoded 06/28/17 21:58) Itching/Hives/Rash Home Medications: Carvedilol [Coreg*] 25 mg PO BID 05/22/14 Cranberry Conc/Ascorbic Acid [Cranberry 12,600 mg Softgel] 4,200 mg PO BID 05/22 Multivitamin [One Daily Multivitamin] 1 each PO DAILY 05/22/14 Omeprazole [Prilosec] 1 tab PO DAILY 05/22/14 Vitamin E [Vitamin E*] 400 iu PO DAILY 09/30/14 Apixaban [Eliquis] 5 mg PO BID 11/13/15 Metformin HCl [Glucophage*] 1 tab PO BID 11/13/15 Verapamil HCl [Verapamil ER] 240 mg PO BEDTIME 11/13/15 Cyanocobalamin [Vitamin B-12*] 2,000 mcg PO DAILY 11/17/15 Magnesium Oxide [Magnesium] 500 mg PO DAILY 05/15/16 Ranitidine HCl 75 mg PO DAILY PRN 05/15/16 Rosuvastatin Calcium [Crestor] 40 mg PO DAILY 05/15/16 Valsartan/Hydrochlorothiazide [Valsartan-Hctz 160-12.5 mg Tab] 1 each PO DAILY 05/15/16 Acetaminophen [Tylenol Arthritis] 1 tab PO Q6H PRN 11/14/17 Cholecalciferol (Vitamin D3) [Vitamin D3] 1,000 unit PO DAILY 11/14/17 L.acidoph,Paracasei, B.lactis [Probiotic] 1 each PO BEDTIME 11/14/17 Hydralazine [Apresoline*] 100 mg PO TID #90 tab 11/15/17 - Past Medical/Surgical History Has patient received pneumonia vaccine in the past: Yes Diabetic: Yes -: Kidney Stones -: TIA -: PUMONARY EMBOLISM -: DM -: CAD -: tonsillectomy -: colon polyps -: CABG -: Cholecystectomy -: Hysterectomy -: Bone Spurs removed -: Triple Bypass -: 3 Stents in right kidney - Family History Mother -: Heart disease, Other (see notes) Notes: [place]. Age of 64 Father -: Heart disease Notes: Age of 77 - Social History Smoking Status: Never smoker Alcohol use: No CD- Drugs: No Caffeine use: No Place of Residence: Home Review of Systems General: As per HPI Physical Examination - Vital Signs Temperature: 98.4 F Blood Pressure: 197/81 Pulse: 75 Respirations: 17 Pulse Ox (%): 96 - Physical Exam General: Alert, In no apparent distress, Oriented x3 HEENT: Atraumatic, PERRLA, Mucous membr. moist/pink, EOMI, Sclerae nonicteric Neck: Supple, 2+ carotid pulse no bruit, No LAD, Without JVD or thyroid abnormality Respiratory: Clear to auscultation bilaterally, Normal air movement Cardiovascular: Regular rate/rhythm, Normal S1 S2 Gastrointestinal: Normal bowel sounds, No tenderness Musculoskeletal: No tenderness Integumentary: No rashes Neurological: Normal gait, Normal speech, Normal strength at 5/5 x4 extr, Normal tone, Normal affect Lymphatics: No axilla or inguinal lymphadenopathy - Diagnosis (Problem(s)) (1) TIA (transient ischemic attack) Status: Acute Plan: Right sided Weakness and facial Droop with Dysarthia on admission. resolved today. PT consulted and Pt is independent and Rehab needs identified -Head CT negative -MRI stroke negative -Neurology consulted. Reccs appreciated -Adjusted Home medication for BP -Increased Hydralazine to 100mg TID -BP log to be kept by Patient. -DC on Eliquis and ASA -Stop Crestor -F/U with PCP in 1 week Qualifiers: Transient cerebral ischemia type: other Qualified Code(s): G45.8 - Other transient cerebral ischemic attacks and related syndromes (2) HTN (hypertension) Status: Chronic Qualifiers: Hypertension type: essential hypertension Qualified Code(s): I10 - Essential (primary) hypertension (3) Atrial fibrillation Onset Date: 11/13/15 Status: Chronic Qualifiers: Atrial fibrillation type: chronic (4) Diabetes mellitus Onset Date: 11/13/15 Status: Chronic Qualifiers: Diabetes mellitus type: type 2 Diabetes mellitus chcf insulin use: without assistant terminal manager use Diabetes mellitus complication status: without complication Qualified Code(s): E11.9 - Type 2 diabetes mellitus without complications (5) GERD (gastroesophageal reflux disease) Status: Chronic Qualifiers: Esophagitis presence: without esophagitis Qualified Code(s): K21.9 - Gastro -esophageal reflux disease without esophagitis - Disposition Disposition: ROUTINE DISCHARGE Condition: GOOD Patient Discharge Instructions: Please f/u with PCP in 1 week post discharge. Please f/u with Cardiology in 1 week post discharge. Please keep a log of BP at home to bring to the cardiology appt. New medication. Hydralazine changed to 100mg TID Diet: Regular Activity: Ad treva
== END 2017-11-15 17:28 | disposition home or self-care (01) ==
LOC: ER 10:08 → ERHOLD 10:55 → 2ND 12:52
PROVIDERS: ADMIT Family Medicine; ATTEND Family Medicine
DX: G45.9 Transient cerebral ischemic attack, unspecified (principal); I10 Essential (primary) hypertension; I48.2 Chronic atrial fibrillation; E11.9 Type 2 diabetes mellitus without complications; K21.9 Gastro-esophageal reflux disease without esophagitis; E78.5 Hyperlipidemia, unspecified; I25.10 Atherosclerotic heart disease of native coronary artery without angina pectoris; Z95.1 Presence of aortocoronary bypass graft; Z87.442 Personal history of urinary calculi; Z88.6 Allergy status to analgesic agent
CPT/HCPCS: 36415; 70450; 70544; 70549; 70553; 71045; 80048; 80053; 80061; 81003; 82306; 82607; 82962 ×6; 83735; 84100; 84439; 84443 ×2; 84484; 85025 ×2; 85610; 92526; 93005; 93975; 96374; 97116; 97163; 97530; 99285; A9577; G0378 ×2

== ENCOUNTER 2017-11-19 17:16 | Emergency (ER) | payer OTHER ==
--- NOTE | 2017-11-19 17:35 | RAD REPORT ---
EXAM DESCRIPTION: CT - Ct Stroke Brain Wo Cont - 11/19/2017 5:27 pm CLINICAL HISTORY: TIA/CVA COMPARISON: 11/14/2017 TECHNIQUE: All CT scans are performed using dose optimization technique as appropriate and may inclu de automated exposure control or mA/KV adjustment according to patient size. FINDINGS: No intracranial hemorrhage, hydrocephalus or extra-axial fluid collection.Moderate general ized brain atrophy is present with mild periventricular and deep white matter chronic microvascular i schemic changes.No areas of brain edema or evidence of midline shift. The paranasal sinuses and mastoids are clear. The calvarium is intact. Vertebral arteries are calcifi ed. IMPRESSION: No acute intracranial abnormality. The findings were discussed with Dr. Simmons in the emergency room on 11/19/2017 at 5:30 p.m. by kellen mendoza.
[2017-11-19 17:39] LABS: Absolute Lymphocytes (CBC) 2.6 K/uL (0.7-4.9); Absolute Monocytes 0.6 K/uL (0.1-1.3); Absolute Neutrophil 4.2 K/uL (1.8-8.0); Basophils % 0.9 % (0-1.3); Eosinophils % 4.4 % (0-4.4); Lymphocytes % 33.4 % (15.3-44.8); MCH 32.7 pg (27.0-35.0); MCV 94.7 fL (80-100); Monocytes % 7.4 % (3.3-12.3); RBC Red Blood Cell Count 4.11 M/uL (3.86-4.86)
[2017-11-19] MEDS ORDERED: NA CHLORIDE 0.9% 0 ML IV ONE (17:42)
[2017-11-19] MEDS ORDERED: ALTEPLASE 0 ML IV ONE (17:42)
[2017-11-19 17:44] LABS: Protime INR 1.29
[2017-11-19 17:49] LABS: Bicarbonate 27 mEq/L (21-31); Glucose Level 206 mg/dL (65-120); Sodium Level 131 mEq/L (135-145)
[2017-11-19 17:50] LABS: BUN Blood Urea Nitrogen 16 mg/dL (6-20)
[2017-11-19 18:04] LABS: Urine Blood NEGATIVE (NEG); Urine Glucose NEGATIVE (NEG); Urine Protein NEGATIVE (NEG); Urine Specific Gravity 1.015 (1.005-1.030); Urine pH 7.5 (5.0-7.0)
[2017-11-19 18:07] LABS: Urine Bacteria NONE SEEN /HPF (<20); Urine Culture Reflex Order NOT NEEDED; Urine RBC <5 /HPF (NONE SEEN)
--- NOTE | 2017-11-19 18:11 | RAD REPORT ---
EXAM DESCRIPTION: RAD - Chest Single View - 11/19/2017 5:50 pm CLINICAL HISTORY: TIA/CVA COMPARISON: 11/14/2017 FINDINGS: Portable technique limits examination quality. The lungs are grossly clear. The heart is normal in size. No displaced fractures.Sternotomy wires pre sent. IMPRESSION: No acute intrathoracic process suspected.
--- NOTE | 2017-11-19 18:12 | ER ---
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 Pt was hospitalized for TIA 2 weeks ago, has some left sided weakness from previous CVA. Pupils unequal and nonreactive, RIGHT 5mm, LEFT 1-2mm, BP 198/68, BGL 228. Hx TIA, CVA, AFib, sleep anea, HTN. Transition of care: patient was not received from another setting of care. An acute neurological deficit is present. The patients blood glucose was checked prior to arriving to the hospital and was found to be hyperglycemic. The charge nurse has been notified. Onset of symptoms was November 19, 2017 at 16:45. Initial Sepsis Screen: Does the patient meet any 2 criteria? No. Patient's initial sepsis screen is negative. Does the patient have a suspected source of infection? No. Patient's initial sepsis screen is negative. Care prior to arrival: None. 17:18 Method Of Arrival: EMS: [facility] hb 17:18 Acuity: YOLANDE 2 hb Triage Assessment: 17:18 The onset of the patients symptoms was less than three hours ago. General: Appears ae1 uncomfortable. Neuro: Reports weakness. 18:56 The onset of the patients symptoms was November 19, 2017 at 16:30. General: Behavior is ae1 cooperative, anxious. Stroke Activation: Symptom onset < 3 hours Physician: Stroke Attending; Name: ; Notified At: ; Arrived At: Physician: Chief Stroke Resident; Name: ; Notified At: ; Arrived At: Physician: Stroke Resident; Name: ; Notified At: ; Arrived At: Physician: ED Attending; Name: ; Notified At: ; Arrived At: Physician: ED Resident; Name: ; Notified At: ; Arrived At: Historical: - Allergies: 17:32 Aspirin; hb 17:32 Codeine; hb 17:32 Iodinated Contrast Media - IV Dye; hb - Home Meds: 17:32 carvedilol 25 mg Oral tab 1 tab 2 times per day [Active]; cranberry Oral twice a day hb [Active]; Crestor 40 mg Oral tab once daily [Active]; Eliquis 5 mg Oral tab 2 times per day [Active]; hydralazine 50 mg Oral tab 1 tab 4 times per day [Active]; magnesium oxide 500 mg Oral cap [Active]; metformin 500 mg Oral Tb24 1 tab 2 times per day [Active]; Multiple Vitamins Oral tab daily [Active]; omeprazole 40 mg Oral cpDR 1 cap once daily [Active]; Probiotic Oral [Active]; ranitidine HCl 75 mg Oral tab as needed [Active]; valsartan 160 mg Oral tab 1 tab once daily [Active]; verapamil 240 mg Oral TbER 1 tab once daily [Active]; Vitamin B-12 2,000 mcg Oral TbER daily [Active]; Vitamin D3 1,000 unit Oral chew daily [Active]; vitamin E Oral once daily [Active]; - PMHx: 17:32 acid reflux; Atrial Fib; Diabetes - NIDDM; Hyperlipidemia; Hypertension; Kidney stones; hb TIA; UTI; - PSHx: 17:32 Tonsillectomy; blood clot in lung; stents in kidney; Cholecystectomy; Hysterectomy; hb Triple Bypass; Sleep Apnea; Stints in right kidney; Cataract Surgery; bone-spurs removed; - Immunization history:: Adult Immunizations up to date. - Social history:: Smoking status: Patient/guardian denies using tobacco. Screenin:33 Abuse screen: Denies threats or abuse. Denies injuries from another. Nutritional hb screening: No deficits noted. Tuberculosis screening: No symptoms or risk factors identified. Fall Risk Total Glez Fall Scale indicates High Risk Score (45 or more points). Fall prevention measures have been instituted. Side Rails Up X 2 Frequent Obs/Assessments Occuring Family Present and informed to notify staff if the need to leave the bedside As available patient and family educated on Fall Prevention Program and Strategies. Assessment: 17:18 Reassessment: PA Page at bedside to assess pt. hb 17:20 Reassessment: Pt to CT. hb 17:20 General: Appears uncomfortable, slender, Behavior is cooperative, anxious, crying. ae1 Pain: Denies pain. Neuro: Level of Consciousness is awake, alert, obeys commands, Oriented to person, place, time, situation. Cardiovascular: Heart tones S1 S2 Patient's skin is warm and dry. Rhythm is irregular. Respiratory: Airway is patent Respiratory effort is even, unlabored, Respiratory pattern is regular, symmetrical, Breath sounds are clear bilaterally. GI: No signs and/or symptoms were reported involving the gastrointestinal system. : Urine is clear. EENT: Oral mucosa is dry. Derm: Skin is pale. Musculoskeletal: No signs and/or symptoms reported regarding the musculoskeletal system. Reports Generalized weakness. 17:27 Reassessment: Pt returned from CT. hb 17:31 Reassessment: Dr. Bernal reports negative CT. iw 17:40 T-PA (Activase) Screening: Indications: Definite evidence of stroke, ischemic, embolic, iw or hypertensive: Yes. Treatment will start within 4.5 hours onset of symptoms: Yes. No evidence of intracranial hemorrhage or CT of head and no evidence of peripheral hemorrhage or recent CVA: Yes. Contraindications: Is the patient on Aspirin, Heparin, or Warfarin: Yes. 17:40 Reassessment: pt will not receive TPA, is currently on Eliquis for Afib. iw 17:51 Patient has been NPO before screening. The patient is alert, and able to follow ae1 commands. The patient does not exhibit slurred or garbled speech. The patient is exhibiting difficulty speaking. Patient can speak clearly and patient states she is having trouble stating what she wants to say, she states can "think it" but "it has trouble coming out" The patient does not exhibit difficulty understanding words. The patient is able to swallow own secretions with no drooling or need for suction. Patient tolerated one teaspoon of water. No drooling, immediate coughing, gurgling, or clearing of the throat was noted. The patient passed the bedside swallow screening. Oral medications may be given as ordered. Contact Physician for further diet orders. Pain: Denies pain. 18:29 Reassessment: Report called to LAILA Barraza [facility] via telephone. ae1 18:42 Provider notified of bedside swallow screening results: Hari DE LA O. ae1 18:54 Reassessment: Bedside report and hand off care to EMS. ae1 Vital Signs: 17:43 BP 190 / 82; Pulse 76; Resp 24; Temp 97.3(A); Pulse Ox 99% on R/A; Weight 63.5 kg (R); ae1 17:49 Weight 64.5 kg (M); hb 18:11 BP 193 / 80; Pulse 76; Resp 20; Pulse Ox 99% on R/A; ae1 18:40 BP 171 / 56; Pulse 71; Resp 19; Pulse Ox 99% on R/A; ae1 NIH Stroke Scale Scores: 17:18 NIHSS Score: 4 ae1 17:34 NIHSS Score: 1 cp ED Course: 17:21 Patient arrived in ED. hb 17:21 Hari Lara PA is PHCP. cp 17:21 Hari Simmons MD is Attending Physician. cp 17:27 CT Stroke Brain w/o Contrast In Process Unspecified. EDMS 17:28 Triage completed. hb 17:29 Arm band placed on right wrist. hb 17:37 Drew Jackson, LAILA is Primary Nurse. ae1 17:40 Inserted saline lock: 22 gauge in left antecubital area, using aseptic technique. Blood iw collected. IV inserted by Sumit Soni ED tech Missed attempt(s): 22 gauge in right wrist. Bleeding controlled, band aid applied, catheter tip intact. 17:45 X-ray completed. Portable x-ray completed in exam room. Patient tolerated procedure kp1 well. 17:50 Stroke CXR 1 View In Process Unspecified. EDMS 18:10 Placed in gown. Bed in low position. Call light in reach. Side rails up X2. Adult w/ ae1 patient. laryngologist on. Pulse ox on. NIBP on. Warm blanket given. 18:55 No provider procedures requiring assistance completed. Patient transferred, IV remains ae1 in place. Administered Medications: 18:53 Drug: foLIC Acid 1 mg Route: IVPB; Site: left antecubital; ae1 18:54 Follow up: IV Status: Completed infusion ae1 Point of Care Testing: Blood Glucose: 17:20 Blood Glucose: 189 mg/dL; hb Ranges: Outcome: 18:11 ER care complete, transfer ordered by . cp 18:55 Transferred by ground EMS to [facility]. ae1 18:55 Condition: stable 18:55 Discharge instructions given to patient, family, Instructed on the need for transfer, Demonstrated understanding of instructions. 18:57 Patient left the ED. ae1 NIH Stroke Scale - NIH Stroke Score Date: 11/19/2017 Time: 17:18 Total Score = 4 1a. Level of Consciousness (LOC) - 0(Alert) 1b. Level of Consciousness (LOC) (Year \\T\\ Age) - 0(Both) 1c. LOC Commands (Open \\T\\ Closes Eyes/Market Analysis Director) - 0(Both) 2. Best Gaze (Lateral Gaze Paresis) - 0(Normal) 3. Visual Field Loss - 0(No visual loss) 4. Facial Palsy - 1(Minor Paralysis) 5a. Left Arm: Motor (10-second hold) - 1(Drift) 5b. Right Arm: Motor (10-second hold) - 0(No drift) 6a. Left Leg: Motor (5-second hold - always test supine) - 0(No drift) 6b. Right Leg: Motor (5-second hold - always test supine) - 0(No drift) 7. Limb Ataxia (finger/nose \\T\\ heel/felix - test with eyes open) - 0(Absent) 8. Sensory Loss (pinprick arms/legs/face) - 0(Normal) 9. Best Language: Aphasia (description/naming/reading) - 1(Mild to moderate aphasia) 10. Dysarthria (speech clarity - read or repeat words) - 1(Mild to Moderate) 11. Extinction and Inattention (visual/tactile/auditory/spatial/personal) - 0(No abnormality) Initials: ae1 NIH Stroke Scale - NIH Stroke Score Date: 11/19/2017 Time: 17:34 Total Score = 1 1a. Level of Consciousness (LOC) - 0(Alert) 1b. Level of Consciousness (LOC) (Year \\T\\ Age) - 0(Both) 1c. LOC Commands (Open \\T\\ Closes Eyes/Market Analysis Director) - 0(Both) 2. Best Gaze (Lateral Gaze Paresis) - 0(Normal) 3. Visual Field Loss - 0(No visual loss) 4. Facial Palsy - 0(Normal) 5a. Left Arm: Motor (10-second hold) - 0(No drift) 5b. Right Arm: Motor (10-second hold) - 0(No drift) 6a. Left Leg: Motor (5-second hold - always test supine) - 0(No drift) 6b. Right Leg: Motor (5-second hold - always test supine) - 0(No drift) 7. Limb Ataxia (finger/nose \\T\\ heel/felix - test with eyes open) - 0(Absent) 8. Sensory Loss (pinprick arms/legs/face) - 0(Normal) 9. Best Language: Aphasia (description/naming/reading) - 0(No aphasia) 10. Dysarthria (speech clarity - read or repeat words) - 1(Mild to Moderate) 11. Extinction and Inattention (visual/tactile/auditory/spatial/personal) - 0(No abnormality) Initials: cp Signatures: Dispatcher [employer] EDMS Priti Crawford RN RN Hari Lara PA PA cp Deepthi Pablo RN RN Drew Jackson RN RN ae1 Katherine Vasquez kp1 Corrections: (The following items were deleted from the chart) 18:45 17:20 BP 171 / 56; Pulse 71bpm; Resp 19bpm; Pulse Ox 99% RA; ae1 ae1
--- NOTE | 2017-11-19 18:12 | EDPHYS ---
Physician Documentation [facility] Name: Radha Lara Age: 82 yrs Sex: Female : 1935 Arrival Date: 11/19/2017 Time: 17:21 Bed 3 Private MD: ED Physician Hari Simmons HPI: 11/19 17:49 This 82 yrs old Female presents to ER via EMS with complaints of S/S of cp Possible Stroke. 17:49 The patient's problem is reported as dysphasia, expressive aphasia, weakness, that is cp generalized. Onset: The symptoms/episode began/occurred 30 minute(s) ago. Duration: The episode is continuous. 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 Associated signs and symptoms: Pertinent negatives: abdominal pain, chest pain, headache. Severity of symptoms: in the emergency department the symptoms are unchanged despite EMS interventions. Patient's baseline: Neuro: alert and fully oriented, Motor: no deficits, Ambulation: walks without assistance, Speech: normal. Historical: - Allergies: 17:32 Aspirin; hb 17:32 Codeine; hb 17:32 Iodinated Contrast Media - IV Dye; hb - Home Meds: 17:32 carvedilol 25 mg Oral tab 1 tab 2 times per day [Active]; cranberry Oral twice a day hb [Active]; Crestor 40 mg Oral tab once daily [Active]; Eliquis 5 mg Oral tab 2 times per day [Active]; hydralazine 50 mg Oral tab 1 tab 4 times per day [Active]; magnesium oxide 500 mg Oral cap [Active]; metformin 500 mg Oral Tb24 1 tab 2 times per day [Active]; Multiple Vitamins Oral tab daily [Active]; omeprazole 40 mg Oral cpDR 1 cap once daily [Active]; Probiotic Oral [Active]; ranitidine HCl 75 mg Oral tab as needed [Active]; valsartan 160 mg Oral tab 1 tab once daily [Active]; verapamil 240 mg Oral TbER 1 tab once daily [Active]; Vitamin B-12 2,000 mcg Oral TbER daily [Active]; Vitamin D3 1,000 unit Oral chew daily [Active]; vitamin E Oral once daily [Active]; - PMHx: 17:32 acid reflux; Atrial Fib; Diabetes - NIDDM; Hyperlipidemia; Hypertension; Kidney stones; hb TIA; UTI; - PSHx: 17:32 Tonsillectomy; blood clot in lung; stents in kidney; Cholecystectomy; Hysterectomy; hb Triple Bypass; Sleep Apnea; Stints in right kidney; Cataract Surgery; bone-spurs removed; - Immunization history:: Adult Immunizations up to date. - Social history:: Smoking status: Patient/guardian denies using tobacco. ROS: 17:55 Eyes: Negative for injury, pain, redness, and discharge. cp 17:55 Constitutional: Negative for body aches, chills, fever, poor PO intake. 17:55 Cardiovascular: Negative for chest pain, edema, palpitations. 17:55 Respiratory: Negative for cough, shortness of breath, wheezing. 17:55 Abdomen/GI: Negative for abdominal pain, vomiting, diarrhea, constipation, black/tarry stool, rectal bleeding. 17:55 Skin: Negative for cellulitis, rash. 17:55 Neuro: Positive for speech changes, general weakness, Negative for altered mental status, headache. 17:55 All other systems are negative. Exam: 17:56 Radiologist reports: negative for acute findings cp 17:56 Head/Face: Normocephalic, atraumatic. 17:56 Constitutional: The patient appears in no acute distress, alert, awake, non-diaphoretic, non-toxic, well developed, well nourished. 17:56 Eyes: Periorbital structures: appear normal, Pupils: equal, round, and reactive to light and accomodation, Extraocular movements: intact throughout, Conjunctiva: normal, no exudate, no injection, Sclera: no appreciated abnormality, Lids and lashes: appear normal, bilaterally. 17:56 ENT: External ear(s): are unremarkable, Ear canal(s): are normal, clear, TM's: dullness, bilaterally, Nose: is normal, Mouth: Lips: moist, Oral mucosa: moist, Posterior pharynx: is normal, airway is patent, no erythema, no exudate. 17:56 Neck: ROM/movement: is normal, is supple, without pain, no range of motions limitations, no meningismus, no nuchal rigidity. 17:56 Chest/axilla: Inspection: normal, Palpation: is normal, no crepitus, no tenderness. 17:56 Cardiovascular: Rate: normal, Rhythm: irregularly irregular, Pulses: Pulses are 2+ in right radial artery and left radial artery. Edema: is not appreciated, JVD: is not appreciated. 17:56 Respiratory: the patient does not display signs of respiratory distress, Respirations: normal, no use of accessory muscles, no retractions, no splinting, no tachypnea, labored breathing, is not present, Breath sounds: are clear throughout, no decreased breath sounds, no stridor, no wheezing. 17:56 Abdomen/GI: Inspection: abdomen appears normal, Bowel sounds: active, all quadrants, Palpation: abdomen is soft and non-tender, in all quadrants, rebound tenderness, is not appreciated, voluntary guarding, is not appreciated, involuntary guarding, is not appreciated. 17:56 Back: pain, is absent. 17:56 Skin: cellulitis, is not appreciated, no rash present. 17:56 Neuro: Orientation: to person, place \T\ time. Mentation: able to follow commands, slow to respond, Cerebellar function: Romberg testing is negative, normal finger to nose testing, Motor: moves all fours, general weakness w/o focal deficits, Sensation: no obvious gross deficits. 18:10 ECG was reviewed by the Attending Physician. cp Vital Signs: 17:43 BP 190 / 82; Pulse 76; Resp 24; Temp 97.3(A); Pulse Ox 99% on R/A; Weight 63.5 kg (R); ae1 17:49 Weight 64.5 kg (M); hb 18:11 BP 193 / 80; Pulse 76; Resp 20; Pulse Ox 99% on R/A; ae1 18:40 BP 171 / 56; Pulse 71; Resp 19; Pulse Ox 99% on R/A; ae1 NIH Stroke Scale Scores: 17:18 NIHSS Score: 4 ae1 17:34 NIHSS Score: 1 cp MDM: 17:24 Patient medically screened. cp 17:30 Differential diagnosis: CVA, TIA, drug effects. cp 18:01 ED course: VSS. Patient not a candidate for tpa due to current use of prescribed cp Eliquis for a-fib. 18:10 Data reviewed: vital signs, nurses notes, EKG, radiologic studies, CT scan, plain films.cp 18:10 Counseling: I had a detailed discussion with the patient and/or guardian regarding: the cp historical points, exam findings, and any diagnostic results supporting the discharge/admit diagnosis, the need to transfer to another facility, for higher level of care. 11/19 17:24 Order name: Magnesium cp 11/19 17:24 Order name: Troponin (emerg Dept Use Only) 11/19 17:24 Order name: Basic Metabolic Panel 11/19 17:24 Order name: CBC with Diff 11/19 17:24 Order name: Protime (+inr) 11/19 17:24 Order name: Ptt, Activated 11/19 17:24 Order name: Urine Microscopic Only 11/19 17:24 Order name: CT Stroke Brain w/o Contrast 11/19 17:24 Order name: Stroke CXR 1 View 11/19 17:24 Order name: EKG; Complete Time: 17:24 11/19 17:24 Order name: Accucheck; Complete Time: 17:49 cp 11/19 18:04 Order name: Urine Dipstick--Ancillary (enter results) 11/19 18:05 Order name: Urine Dipstick-Ancillary EDME 11/19 17:24 Order name: Cardiac monitoring; Complete Time: 17:49 cp 11/19 17:24 Order name: EKG - Nurse/Tech; Complete Time: 18:05 cp 11/19 17:24 Order name: IV Saline Lock; Complete Time: 17:49 cp 11/19 17:24 Order name: Labs collected and sent; Complete Time: 17:50 cp 11/19 17:24 Order name: NPO; Complete Time: 17:50 cp 11/19 17:24 Order name: O2 Per Protocol; Complete Time: 17:50 cp 11/19 17:24 Order name: O2 Sat Monitoring; Complete Time: 17:50 cp 11/19 17:24 Order name: Stroke Swallow Screen; Complete Time: 17:57 cp 11/19 17:24 Order name: Urine Dipstick-Ancillary (obtain specimen); Complete Time: 17:50 cp EC:10 Rate is 71 beats/min. Rhythm is irregularly irregular. QRS interval is normal. QT cp interval is normal. No ST changes noted. Clinical impression: Atrial Fibrillation. Interpreted by me. Reviewed by me. Administered Medications: 18:53 Drug: foLIC Acid 1 mg Route: IVPB; Site: left antecubital; ae1 18:54 Follow up: IV Status: Completed infusion ae1 Point of Care Testing: Blood Glucose: 17:20 Blood Glucose: 189 mg/dL; hb Ranges: Critical Glucose Levels:Adult <50 mg/dl or >400 mg/dl <40 mg/dl or >180 mg/dl Disposition: 11/19/17 18:[address] [facility]. Diagnosis are Aphasia, Chronic atrial fibrillation. - Reason for transfer: Higher level of care. - Accepting physician is DR Quevedo. - Condition is Stable. - Problem is new. - Symptoms are unchanged. NIH Stroke Scale - NIH Stroke Score Date: 11/19/2017 Time: 17:18 Total Score = 4 1a. Level of Consciousness (LOC) - 0(Alert) 1b. Level of Consciousness (LOC) (Year \T\ Age) - 0(Both) 1c. LOC Commands (Open \T\ Closes Eyes/Maintenance Shop Technician) - 0(Both) 2. Best Gaze (Lateral Gaze Paresis) - 0(Normal) 3. Visual Field Loss - 0(No visual loss) 4. Facial Palsy - 1(Minor Paralysis) 5a. Left Arm: Motor (10-second hold) - 1(Drift) 5b. Right Arm: Motor (10-second hold) - 0(No drift) 6a. Left Leg: Motor (5-second hold - always test supine) - 0(No drift) 6b. Right Leg: Motor (5-second hold - always test supine) - 0(No drift) 7. Limb Ataxia (finger/nose \T\ heel/felix - test with eyes open) - 0(Absent) 8. Sensory Loss (pinprick arms/legs/face) - 0(Normal) 9. Best Language: Aphasia (description/naming/reading) - 1(Mild to moderate aphasia) 10. Dysarthria (speech clarity - read or repeat words) - 1(Mild to Moderate) 11. Extinction and Inattention (visual/tactile/auditory/spatial/personal) - 0(No abnormality) Initials: ae1 NIH Stroke Scale - NIH Stroke Score Date: 11/19/2017 Time: 17:34 Total Score = 1 1a. Level of Consciousness (LOC) - 0(Alert) 1b. Level of Consciousness (LOC) (Year \T\ Age) - 0(Both) 1c. LOC Commands (Open \T\ Closes Eyes/Maintenance Shop Technician) - 0(Both) 2. Best Gaze (Lateral Gaze Paresis) - 0(Normal) 3. Visual Field Loss - 0(No visual loss) 4. Facial Palsy - 0(Normal) 5a. Left Arm: Motor (10-second hold) - 0(No drift) 5b. Right Arm: Motor (10-second hold) - 0(No drift) 6a. Left Leg: Motor (5-second hold - always test supine) - 0(No drift) 6b. Right Leg: Motor (5-second hold - always test supine) - 0(No drift) 7. Limb Ataxia (finger/nose \T\ heel/felix - test with eyes open) - 0(Absent) 8. Sensory Loss (pinprick arms/legs/face) - 0(Normal) 9. Best Language: Aphasia (description/naming/reading) - 0(No aphasia) 10. Dysarthria (speech clarity - read or repeat words) - 1(Mild to Moderate) 11. Extinction and Inattention (visual/tactile/auditory/spatial/personal) - 0(No abnormality) Initials: cp Addendum: 11/21/2017 09:08 Co-signature as Attending Physician, Hari Simmons MD I agree with the iron assessment and plan of care. Signatures: Dispatcher [employer] EDHari Andrade MD MD cha Page, Corey, PA PA cp Baxter, Heather, LIALA RN Drew Andujar RN RN ae1
[2017-11-19] MEDS ORDERED: FOLIC ACID 5 MG/ML VIAL ONE (18:50)
[2017-11-19 19:16] VITALS: TEMP 97.3; O2SAT 99
[2017-11-19 19:18] VITALS: BP 171/56
--- NOTE | 2017-11-20 16:09 | EKG ---
Test Date: 2017-11-19 Test Time: 18:03:39 Outpatient Phlebotomist: AMANDEEP MEASUREMENT RESULTS: Intervals: Rate: 71 NV: QRSD: 94 QT: 398 QTc: 432 [place]: P: NV: QRS: 15 T: 152 INTERPRETIVE STATEMENTS: Atrial fibrillation Septal infarct, age undetermined ST & T wave abnormality, consider lateral ischemia Abnormal ECG Compared to ECG 11/14/2017 10:34:49 ST (T wave) deviation now present Possible ischemia now present Ventricular premature complex(es) no longer present Aberrant conduction of supraventricular beat(s) no longer present Myocardial infarct finding still present Electronically Signed On 11-20-17 16:08:34 CDT by Ayaan Ni
== END 2017-11-19 18:57 | disposition short-term general hospital (02) ==
LOC: ER 17:16
DX: I48.2 Chronic atrial fibrillation (principal); I10 Essential (primary) hypertension; E11.9 Type 2 diabetes mellitus without complications; E78.5 Hyperlipidemia, unspecified; Z79.02 Long term (current) use of antithrombotics/antiplatelets; Z88.5 Allergy status to narcotic agent; Z88.6 Allergy status to analgesic agent; Z91.041 Radiographic dye allergy status
CPT/HCPCS: 36415; 70450; 71045; 80048; 81003; 81015; 82962; 83735; 84484; 85025; 85610; 85730; 93005; 96374; 99285; J2997

== ENCOUNTER 2018-08-20 18:04 | Emergency (ER) | payer OTHER ==
--- OUTSIDE RECORDS SUMMARY | 2018-08-20 18:07 | XMS REPORT | Clinical Summary ---
:1935 Author Organization [facility] Address [address] [place] [address] Care Team Providers Name Role Phone Unavailable Primary Care Provider Unavailable Allergies Active Allergy Reactions Severity Noted Date Comments Aspirin 11/19/2017 palpitations Codeine 11/19/2017 Confusion Iodinated Contrast- Oral And Iv Dye 11/19/2017 vomiting Medications Medication Sig Dispensed Refills Start Date End Date Status carvedilol (COREG) 25 Take 25 mg by 0 Active MG tablet mouth 2 (two) times daily with breakfast and dinner. rosuvastatin (CRESTOR) Take 40 mg by 0 Active 40 MG tablet mouth daily. apixaban (ELIQUIS) 5 Take 5 mg by 0 Active mg Tab tablet mouth 2 (two) times daily. hydrALAZINE Take 100 mg by 0 Active (APRESOLINE) 100 MG mouth 3 (three) tablet times daily. magnesium gluconate Take 500 mg by 0 Active (MAGONATE) 27.5 mg mouth 2 (two) (500 mg) tablet times daily. metFORMIN (GLUCOPHAGE) Take 500 mg by 0 Active 500 MG tablet mouth 2 (two) times daily with breakfast and dinner. omeprazole (PRILOSEC) Take 40 mg by 0 Active 40 MG capsule mouth daily. valsartan (DIOVAN) 160 Take 160 mg by 0 Active MG tablet mouth daily. verapamil (VERELAN PM) Take 240 mg by 0 Active 240 MG 24 hr capsule mouth nightly. cyanocobalamin Take 1,000 mcg 0 Active (VITAMIN B-12) 1000 by mouth daily. MCG tablet cholecalciferol, Take 1,000 Units 0 Active vitamin D3, 1,000 unit by mouth daily. capsule clopidogrel (PLAVIX) Take 1 tablet 30 tablet 3 11/23/2017 11/23/2018 Active 75 mg tablet (75 mg total) by mouth daily. Active Problems Problem Noted Date Expressive aphasia 11/19/2017 Essential hypertension 11/19/2017 Type 2 diabetes mellitus without complication, without long-term current 11/19 use of insulin Chronic atrial fibrillation 11/19/2017 Hyponatremia 11/19/2017 TIA (transient ischemic attack) 11/19/2017 Encounters Date Type Specialty Care Team Description 11/22/2017 Surgery Virtual, PROCEDURE DONE Surgeon OUTSIDE OR 11/22/2017 Anesthesia Event Fran Ambriz CRNA 11/19/2017 - Hospital Encounter General Internal [facility] Chronic atrial fibrillation (HCC) (Primary Dx); 11/22/2017 Medicine Maria Teresa Montes Essential hypertension; MD Jesica Expressive aphasia; Svetlana Edwards Hyponatremia; Magda Hathaway, Transient cerebral ischemia, unspecified type; Type 2 diabetes mellitus without complication, without long-term current use of insulin (HCC); Yana Charles Bilateral carotid artery stenosis MD Daisy Paz, Otoniel Randhawa MD after 08/19/2017 Social History Tobacco Use Types Packs/Day Years Used Date Never Smoker Smokeless Tobacco: Never Used Sex Assigned at Date Recorded Not on file Job Start Date Occupation Industry Not on file Not on file Not on file Travel History Travel Start Travel End No recent travel history available. Last Filed Vital Signs Vital Sign Reading Time Taken Blood Pressure 164/70 11/22/2017 4:00 PM CDT Pulse 70 11/22/2017 4:00 PM CDT Temperature 35.7 C (96.2 F) 11/22/2017 12:00 PM CDT Respiratory Rate 22 11/22/2017 12:00 PM CDT Oxygen Saturation 99% 11/22/2017 12:00 PM CDT Inhaled Oxygen Concentration 21% 11/22/2017 2:14 AM CDT Weight 60.3 kg (133 lb) 11/21/2017 12:00 PM CDT Height 162.6 cm (5' 4") 11/21/2017 12:00 PM CDT Body Mass Index 22.83 11/21/2017 12:00 PM CDT Plan of Treatment Not on file Procedures Procedure Name Priority Date/Time Associated Comments Diagnosis RHYTHM STRIP - SCAN 11/24/2017 10:30 AM CDT NV CEREBRAL 4 VESSEL Routine 11/22/2017 11:25 Results for this ANGIOGRAM AM CDT procedure are in the results section. PROCEDURE DONE OUTSIDE 11/22/2017 10:45 Stenosis of artery OR AM CDT (HCC) POCT-GLUCOSE METER Routine 11/22/2017 7:28 Results for this AM CDT procedure are in the results section. POCT-GLUCOSE METER Routine 11/22/2017 5:51 Results for this AM CDT procedure are in the results section. PT/APTT Routine 11/22/2017 5:44 Results for this AM CDT procedure are in the results section. MAGNESIUM Routine 11/22/2017 5:44 Results for this AM CDT procedure are in the results section. BASIC METABOLIC PANEL Routine 11/22/2017 5:44 Results for this (7) AM CDT procedure are in the results section. POCT-GLUCOSE METER Routine 11/21/2017 9:31 Results for this PM CDT procedure are in the results section. ECHOCARDIOGRAM REPORT - 11/21/2017 5:50 SCAN PM CDT POCT-GLUCOSE METER Routine 11/21/2017 5:29 Results for this PM CDT procedure are in the results section. 2D ECHO W/ DOPPLER Routine 11/21/2017 2:36 Results for this (CW/PW/COLOR) PM CDT procedure are in the results section. CT/CTA BRAIN Routine 11/21/2017 1:55 Results for this PM CDT procedure are in the results section. CT/CTA CAROTID Routine 11/21/2017 1:55 Results for this PM CDT procedure are in the results section. POCT-GLUCOSE METER Routine 11/21/2017 11:48 Results for this AM CDT procedure are in the results section. POCT-GLUCOSE METER Routine 11/21/2017 7:39 Results for this AM CDT procedure are in the results section. MAGNESIUM Routine 11/21/2017 4:21 Results for this AM CDT procedure are in the results section. BASIC METABOLIC PANEL Routine 11/21/2017 4:21 Results for this (7) AM CDT procedure are in the results section. POCT-GLUCOSE METER Routine 11/20/2017 9:26 Results for this PM CDT procedure are in the results section. TSH/FREE T4 IF Routine 11/20/2017 9:14 Results for this INDICATED PM CDT procedure are in the results section. MAGNESIUM Routine 11/20/2017 9:14 Results for this PM CDT procedure are in the results section. LIPID PANEL Routine 11/20/2017 9:14 Results for this PM CDT procedure are in the results section. BASIC METABOLIC PANEL Routine 11/20/2017 9:14 Results for this (7) PM CDT procedure are in the results section. POCT-GLUCOSE METER Routine 11/20/2017 5:38 Results for this PM CDT procedure are in the results section. POCT-GLUCOSE METER Routine 11/20/2017 12:31 Results for this PM CDT procedure are in the results section. MR BRAIN WITHOUT IV Routine 11/20/2017 10:36 Results for this CONTRAST AM CDT procedure are in the results section. MR MRA NECK WITHOUT IV Routine 11/20/2017 10:36 Results for this CONTRAST AM CDT procedure are in the results section. MR MRA HEAD WITHOUT Routine 11/20/2017 10:36 Results for this CONTRAST AM CDT procedure are in the results section. POCT-GLUCOSE METER Routine 11/20/2017 7:42 Results for this AM CDT procedure are in the results section. CBC W/PLT COUNT & AUTO Routine 11/20/2017 5:27 Results for this DIFFERENTIAL AM CDT procedure are in the results section. TSH/FREE T4 IF Routine 11/20/2017 5:27 Results for this INDICATED AM CDT procedure are in the results section. VITAMIN B12 Routine 11/20/2017 5:27 Results for this AM CDT procedure are in the results section. CBC W/PLT COUNT & AUTO Routine 11/20/2017 5:27 Results for this DIFFERENTIAL AM CDT procedure are in the results section. HEMOGLOBIN A1C Routine 11/20/2017 5:27 Results for this AM CDT procedure are in the results section. POCT-GLUCOSE METER Routine 11/19/2017 10:07 Results for this PM CDT procedure are in the results section. after 08/19/2017 Results RHYTHM STRIP - SCAN (11/24/2017 10:30 AM CDT) Narrative Performed At [facility] cerebral 4 vessel angiogram (11/22/2017 11:25 AM CDT) Narrative Performed At [facility] November 22, 2017 CLINICAL HISTORY: 82 years old right-handed female with history of carotid stenosis. The patient is referred for angiographic evaluation . Procedure: The risk and benefits of the procedure as well as alternatives were explained to the patient and her family and they expressed understanding and willingness to proceed with the procedure. A consent form was signed. The risks include but not limited to stroke, damage to the blood vessels, aneurysm rupture, hemorrhage, damage to the cranial nerves with loss motor, and sensory functions, loss of vision, infection, allergic reaction to the contrast, damage to the kidney with renal failure,need for additional treatment, and . Neuroleptic sedation was provided by anesthesiology. Using a micropuncture set and under fluoroscopic guidance and strict sterile technique a 4 Ecuadorean femoral sheath was inserted into the right common femoral artery. Through the sheath a 4 Ecuadorean vertebral catheter was then advanced over the wire and the following procedure was performed: 1. Selective right common carotid arteriogram with biplane imaging over the common carotid bifurcation. 2. Selective right common carotid arteriogram with biplane imaging over the intracranial carotid circulation. 3. Selective left common carotid arteriogram with biplane imaging over the common carotid bifurcation. 4. Selective left common carotid arteriogram with biplane imaging overthe intracranial carotid circulation. 5. Selective left vertebral angiogram with biplane imaging over the vertebrobasilar circulation. 6. Selective right vertebral arteriogram with biplane imaging over the vertebrobasilar circulation. Findings: The selective right common carotid arteriogram with biplane imaging over the common carotid bifurcation demonstrates mild proximal internal carotid stenosis of approximately 40%. The selective right common carotid arteriogram with biplane imaging over the intracranial carotid circulation demonstrates diminished antegrade with diffuse atherosclerotic changes particularly involving the cavernous segment with multiple ulcerations without significant focal stenosis, aneurysm, vascular malformation, or dural arteriovenous fistula. The venous system is within normal limits. There is mild to moderate cross filling to the left intracranial circulation. The selective left common carotid arteriogram with biplane imaging over the common carotid bifurcation demonstrates mild stenosis of the proximal internal carotid artery of approximately 30%. The selective left common carotid arteriogram with biplane imaging over the intracranial carotid circulation demonstrates a critical supraclinoid ICA stenosis of approximately 80%. There is delayed antegrade flow. The venous system is within normal limits. The selective right vertebral arteriogram demonstrates good antegrade flow without significant focal stenosis, aneurysm, vascular malformation, or dural arteriovenous fistula. The venous system is within normal limits. No posterior communicating arteries are seen. The selective left vertebral arteriogram demonstrates good antegrade flow without significant focal stenosis, aneurysm, vascular malformation, or dural arteriovenous fistula. The venous system is within normal limits. No posterior commuting artery is seen. At the end of the procedure, the right femoral sheath was withdrawn. Local hemostasis was achieved utilizing manual compression and a mynx closure device. The patient tolerated the procedure well without acute complication. SUMMARY: 1. Critical stenosis of the left supraclinoid ICA measuring 85% with delay of anterograde flow 2. Main collateral is through the anterior communicating artery. 3. Mild bilateral cervical ICA stenosis with mild diffuse right cavernous ICA stenosis. Signed: Susanna Aden MD Report Verified Date/Time:11/22/2017 11:37:47 Reading Location: [facility] [id number] Neuro Angio Reading Room Procedure Note Interface, External Ris In - 11/22/2017 11:40 AM CDT FINAL REPORT November 22, 2017 CLINICAL HISTORY: 82 years old right-handed female with history of carotid stenosis. The patient is referred for angiographic evaluation . Procedure: The risk and benefits of the procedure as well as alternatives were explained to the patient and her family and they expressed understanding and willingness to proceed with the procedure. A consent form was signed. The risks include but not limited to stroke, damage to the blood vessels, aneurysm rupture, hemorrhage, damage to the cranial nerves with loss motor, and sensory functions, loss of vision, infection, allergic reaction to the contrast, damage to the kidney with renal failure,need for additional treatment, and . Neuroleptic sedation was provided by anesthesiology. Using a micropuncture set and under fluoroscopic guidance and strict sterile technique a 4 Ecuadorean femoral sheath was inserted into the right common femoral artery. Through the sheath a 4 Ecuadorean vertebral catheter was then advanced over the wire and the following procedure was performed: 1. Selective right common carotid arteriogram with biplane imaging over the common carotid bifurcation. 2. Selective right common carotid arteriogram with biplane imaging over the intracranial carotid circulation. 3. Selective left common carotid arteriogram with biplane imaging over the common carotid bifurcation. 4. Selective left common carotid arteriogram with biplane imaging over the intracranial carotid circulation. 5. Selective left vertebral angiogram with biplane imaging over the vertebrobasilar circulation. 6. Selective right vertebral arteriogram with biplane imaging over the vertebrobasilar circulation. Findings: The selective right common carotid arteriogram with biplane imaging over the common carotid bifurcation demonstrates mild proximal internal carotid stenosis of approximately 40%. The selective right common carotid arteriogram with biplane imaging over the intracranial carotid circulation demonstrates diminished antegrade with diffuse atherosclerotic changes particularly involving the cavernous segment with multiple ulcerations without significant focal stenosis, aneurysm, vascular malformation, or dural arteriovenous fistula. The venous system is within normal limits. There is mild to moderate cross filling to the left intracranial circulation. The selective left common carotid arteriogram with biplane imaging over the common carotid bifurcation demonstrates mild stenosis of the proximal internal carotid artery of approximately 30%. The selective left common carotid arteriogram with biplane imaging over the intracranial carotid circulation demonstrates a critical supraclinoid ICA stenosis of approximately 80%. There is delayed antegrade flow. The venous system is within normal limits. The selective right vertebral arteriogram demonstrates good antegrade flow without significant focal stenosis, aneurysm, vascular malformation, or dural arteriovenous fistula. The venous system is within normal limits. No posterior communicating arteries are seen. The selective left vertebral arteriogram demonstrates good antegrade flow without significant focal stenosis, aneurysm, vascular malformation, or dural arteriovenous fistula. The venous system is within normal limits. No posterior commuting artery is seen. At the end of the procedure, the right femoral sheath was withdrawn. Local hemostasis was achieved utilizing manual compression and a mynx closure device. The patient tolerated the procedure well without acute complication. SUMMARY: 1. Critical stenosis of the left supraclinoid ICA measuring 85% with delay of anterograde flow 2. Main collateral is through the anterior communicating artery. 3. Mild bilateral cervical ICA stenosis with mild diffuse right cavernous ICA stenosis. Signed: Susanna Aden MD Report Verified Date/Time: 11/22/2017 11:37:47 Reading Location: [facility] Performing Organization Address City/State/Zipcode Phone Number [employer] POC-Glucose meter (11/22/2017 7:28 AM CDT)Only the most recent of11 resultswithin the time period is included. POC-Glucose Meter 149 (H)Comment: TESTED AT 70 - 110 mg/dL [facility] [address] [place] [id number] Specimen Blood Performing Organization Address City/State/Zipcode Phone Number [address] [address] CENTER PT/aPTT (11/22/2017 5:44 AM CDT) Protime 15.5 (H) 11.7 - 14.7 seconds [facility] INR 1.2 <=5.9 [facility] PTT 35.9 22.5 - 36.0 seconds [facility] Specimen Blood - Arm, Right Narrative Performed At [facility] RECOMMENDED COUMADIN/WARFARIN INR THERAPY RANGES STANDARD DOSE: 2.0 - 3.0 Includes: PROPHYLAXIS for venous thrombosis, systemic embolization; TREATMENT for venous thrombosis and/or pulmonary embolus. HIGH RISK: Target INR is 2.5-3.5 for patients with mechanical heart valves. Performing Organization Address City/[facility] Cent[facility] Phone Number [address] [address] CENTER Magnesium (11/22/2017 5:44 AM CDT)Only the most recent of3 resultswithin the time period is included. Magnesium 2.0 1.6 - 2.6 mg/dL [facility] Specimen Blood - Arm, Right Performing Organization Address City/State/Zipcode Phone Number [address] [address] [phone] CENTER Basic metabolic panel (11/22/2017 5:44 AM CDT)Only the most recent of3 resultswithin the time period is included. Sodium 133 (L) 136 - 145 meq/L [facility] Potassium 4.4 3.5 - 5.1 meq/L [facility] Chloride 99 98 - 107 meq/L [facility] CO2 25 22 - 29 meq/L [facility] BUN 11 7 - 21 mg/dL [facility] Creatinine 0.65 0.57 - 1.25 mg/dL [facility] Glucose 162 (H) 70 - 105 mg/dL [facility] Calcium 9.5 8.4 - 10.2 mg/dL [facility] EGFR 87Comment: ESTIMATED GFR IS mL/min/1.73 sq m [facility] NOT ACCURATE CREATININE [facility] CLEARANCE IN PREDICTING GLOMERULAR FILTRATION RATE. ESTIMATED GFR IS NOT APPLICABLE FOR DIALYSIS PATIENTS. Specimen Blood - Arm, Right Performing Organization Address City/State/Zipcode Phone Number [facility] [address] [place] [address] [phone] CENTER ECHOCARDIOGRAM REPORT - SCAN (11/21/2017 5:50 PM CDT) Narrative Performed At 2D Echo W/Doppler(CW/PW/Color) (11/21/2017 2:36 PM CDT) Ejection Fraction [facility] ECHO [facility] MKCKESSON CPA Narrative Performed At Transthoracic Echocardiography Report (TTE) [facility]ART[facility] Demographics Patient Name Anamaria LARA of Study11/21/2017 M [id number] Gender Female Visit Number [id number] Race [id number] [id number] Number Date of Birth1935 Referring PhysicianYana Charles Age82 year(s) SonographFranklin Crawford RDCS AnalystAriadna Interpreting Slava Burrows PhysicianMD Procedure Type of Study TTE procedure:2DECHO W DOPPLER(CW/PW/COLOR) (Routine) Indications:TIA work up . Clinical History DEFINITY 3 ML HGB 13.4 HCT 39.7 % HTN, DM II, A-FIB, TIA, PULMONARY EMBOLUS, CVA, CABG Contrast Medium: Bubble Study. Height: 64 inches Weight: 60.33 kg (133 lbs) BSA: 1.64 m^2 BMI: 22.83 kg/m^2 HR: 71 bpm BP: 164/59 mmHg Summary The left ventricle is chamber size (by vol index) is small. Agllvyrn-yg-rosyzu concentric LV hypertrophy. All of the LV segments are hyperkinetic . Global LV systolic function hyperdynamic . LVEF by Friend's method of disk assessment is increased (>60%) . Degree of diastolic dysfunction (LAP assessment) is inconclusive due to arrhythmia. IV saline contrast injection was negative for a PFO (patent foramen ovale) at rest and post Valsalva . Mild aortic stenosis. Mild mitral regurgitation. Estimated peak systolic PA pressure is 35-40 mmHg . No pericardial effusion is visualized. Signature Findings Left Ventricle LV endocardium is adequately visualized with IV ul trasound enhancing agent. Th e left ventricle is chamber size (by vol index) is small. Yaofpqri-nn-iangvk concentric LV hy pertrophy. All of the LV segments are hy perkinetic . Global LV systolic function hy perdynamic . LV EF by Friend's method of disk assessment is in creased (>60%) . De gree of diastolic dysfunction (LAP assessment) is in conclusive due to arrhythmia. Left AtriumLA size is severely enlarged (>48 ml/m2) . Right VentricleRV chamber size is normal . Gl obal RV systolic function is normal . Right Atrium RA size is normal. Atrial SeptumIV saline contrast injection was negative for a PFO (p atent foramen ovale) at rest and post Valsalva . Aortic Valve Mild AoV cusp thickening. Mi hp-qh-svuqhaly AoV cusp calcification. Mi ld aortic stenosis. Mitral Valve Mild MV leaflet thickening. Mo derate mitral annular calcification. Mi ld mitral regurgitation. Tricuspid ValveMild TV leaflet thickening. Mi ld tricuspid regurgitation. Es timated peak systolic PA pressure is 35-40 mmHg . Pulmonic Valve Normal PV structure and function by limited views an d Doppler. PericardiumNo pericardial effusion is visualized. IVC/SVC/PA/PV/PleuralThe estimated RA pressure by IVC dynamics 8 mmHg . Chambers/Structures Left Atrium LA Dimension: 4.45 cmLA Area: 23.03 cm^2 LA Volume: 75.68 ml LA Vol. Index: 46 ml/m^2 Left Ventricle LVIDd: 3.29 cm LVIDs: 2 cm LV Septum Diastolic: 1.59 cm LV PW Diastolic: 1.51 cmLV FS: 39.2 % LVEDV Friend's:46.27 mlLV IVRT: 117.9 msec LVESV Friend's:13.03 mlLVEDVI: 28 ml/m^2 LVEF Friend's: 71.8 %LVESVI: 8 ml/m^2 LVOT Diameter: 2.17 cm Right Atrium RA Vol. (Sngl Plane): 38.5 ml Doppler/Quantitative Measurements Mitral Valve MV Peak E-Wave: 1.28 m/sMV Peak A-Wave: 0.5 m/s E/A Ratio: 2.57 Mean Velocity: 0.62 m/s Peak Gradient: 6.56 mmHg Mean Gradient: 2.02 mmHgDeceleration Time: 214.4 msec Area (continuity): 2.31 cm^2 MV VTI: 36.46 cm MV Cosme. Peak: 1.35 m/s Aortic Valve Peak Velocity: 2.13 m/sMean Velocity: 1.36 m/s Peak Gradient: 18.16 mmHgMean Gradient: 8.75 mmHg AV Area (continuity): 1.75 cm^2 AV VTI: 48.1 cm AV DVI: 0.47 LVOT Peak Velocity: 0.95 m/s Peak Gradient: 3.63 mmHg Mean Velocity: 0.66 m/s Mean Gradient: 1.99 mmHg LVOT Diameter: 2.17 cmLVOT VTI: 22.78 cm LVOT Area: 3.7 cm^2 LVOT SV:84.21 ml LVOT CO: 5.98 l/min LVOT CI: 3.65 l/min/m^2 RVOT RVOT VTI (PW): 14.03 cm Tricuspid Valve TR Velocity: 2.73 m/s TR Gradient: 29.74 mmHg Procedure Note Interface, External Ris In - 11/21/2017 5:15 PM CDT Transthoracic Echocardiography Report (TTE) Demographics Patient Name RADHA LARA Date of Study 11/21/2017 M Gender Female Visit Number [id number] Race Room Number 2211 Number Date of 1935 Referring Physician Yana Charles Age 82 year(s) [place] Drawer Jorge A Crawford [facility] Sleeping Room Cleaner Mari Interpreting Slava Burrows Physician Procedure Type of Study TTE procedure:2DECHO W DOPPLER(CW/PW/COLOR) (Routine) Indications:TIA work up . Clinical History DEFINITY 3 ML HGB 13.4 HCT 39.7 % HTN, DM II, A-FIB, TIA, PULMONARY EMBOLUS, CVA, CABG Contrast Medium: Bubble Study. Height: 64 inches Weight: 60.33 kg (133 lbs) BSA: 1.64 m^2 BMI: 22.83 kg/m^2 HR: 71 bpm BP: 164/59 mmHg Summary The left ventricle is chamber size (by vol index) is small. Knurxxxk-fy-ivakbp concentric LV hypertrophy. All of the LV segments are hyperkinetic . Global LV systolic function hyperdynamic . LVEF by Friend's method of disk assessment is increased (>60%) . Degree of diastolic dysfunction (LAP assessment) is inconclusive due to arrhythmia. IV saline contrast injection was negative for a PFO (patent foramen ovale) at rest and post Valsalva . Mild aortic stenosis. Mild mitral regurgitation. Estimated peak systolic PA pressure is 35-40 mmHg . No pericardial effusion is visualized. Signature Findings Left Ventricle LV endocardium is adequately visualized with IV ultrasound enhancing agent. The left ventricle is chamber size (by vol index) is small. Repvkxez-td-muwnsg concentric LV hypertrophy. All of the LV segments are hyperkinetic . Global LV systolic function hyperdynamic . LVEF by Friend's method of disk assessment is increased (>60%) . Degree of diastolic dysfunction (LAP assessment) is inconclusive due to arrhythmia. Left Atrium LA size is severely enlarged (>48 ml/m2) . Right Ventricle RV chamber size is normal . Global RV systolic function is normal . Right Atrium RA size is normal. Atrial Septum IV saline contrast injection was negative for a PFO (patent foramen ovale) at rest and post Valsalva . Aortic Valve Mild AoV cusp thickening. Uiqw-du-apeunzdg AoV cusp calcification. Mild aortic stenosis. Mitral Valve Mild MV leaflet thickening. Moderate mitral annular calcification. Mild mitral regurgitation. Tricuspid Valve Mild TV leaflet thickening. Mild tricuspid regurgitation. Estimated peak systolic PA pressure is 35-40 mmHg . Pulmonic Valve Normal PV structure and function by limited views and Doppler. Pericardium No pericardial effusion is visualized. IVC/SVC/PA/PV/Pleural The estimated RA pressure by IVC dynamics 8 mmHg . Chambers/Structures Left Atrium LA Dimension: 4.45 cm LA Area: 23.03 cm^2 LA Volume: 75.68 ml LA Vol. Index: 46 ml/m^2 Left Ventricle LVIDd: 3.29 cm LVIDs: 2 cm LV Septum Diastolic: 1.59 cm LV PW Diastolic: 1.51 cm LV FS: 39.2 % LVEDV Friend's:46.27 ml LV IVRT: 117.9 msec LVESV Friend's:13.03 ml LVEDVI: 28 ml/m^2 LVEF Friend's: 71.8 % LVESVI: 8 ml/m^2 LVOT Diameter: 2.17 cm Right Atrium RA Vol. (Sngl Plane): 38.5 ml Doppler/Quantitative Measurements Mitral Valve MV Peak E-Wave: 1.28 m/s MV Peak A-Wave: 0.5 m/s E/A Ratio: 2.57 Mean Velocity: 0.62 m/s Peak Gradient: 6.56 mmHg Mean Gradient: 2.02 mmHg Deceleration Time: 214.4 msec Area (continuity): 2.31 cm^2 MV VTI: 36.46 cm MV Cosme. Peak: 1.35 m/s Aortic Valve Peak Velocity: 2.13 m/s Mean Velocity: 1.36 m/s Peak Gradient: 18.16 mmHg Mean Gradient: 8.75 mmHg AV Area (continuity): 1.75 cm^2 AV VTI: 48.1 cm AV DVI: 0.47 LVOT Peak Velocity: 0.95 m/s Peak Gradient: 3.63 mmHg Mean Velocity: 0.66 m/s Mean Gradient: 1.99 mmHg LVOT Diameter: 2.17 cm LVOT VTI: 22.78 cm LVOT Area: 3.7 cm^2 LVOT SV:84.21 ml LVOT CO: 5.98 l/min LVOT CI: 3.65 l/min/m^2 RVOT RVOT VTI (PW): 14.03 cm Tricuspid Valve TR Velocity: 2.73 m/s TR Gradient: 29.74 mmHg Performing Organization Address City/State/Zipcode Phone Number [facility] CTA carotid (11/21/2017 1:55 PM CDT) Narrative Performed At FINAL REPORT [facility] CT angiogram of the upper chest, neck, and head Comparison:MRA dated November 20, 2017 Reason for exam: TIA Discussion: Multiple axial CT images of the upper chest, neck, and head were obtained using CT angiography technique. 2-D and 3-D reconstructed images were provided.Please note that CTA is inherently insensitive in evaluating the cavernous and skullbase portions of the internal carotid arteries because of adjacent bone and venous opacification. This exam was performed according to our departmental dose optimization program which includes automated exposure control, adjustment of the mA and/or kV according to patient's size and/or use of iterative reconstructive technique. There is mild calcification at the aortic arch and great vessel origins, without hemodynamically significant stenosis. Mild narrowing is noted at the bifurcation of right common carotid and subclavian arteries. There is mild stenosis at the origin of the left vertebral artery, and 1 cm segment of at least moderate stenosis at origin of the right vertebral artery. Remainder of the cervical segment vertebral arteries are normally patent. Heavy atherosclerotic calcification is present at both carotid bifurcations, with moderate (approximately 50-60 % narrowing by NASCET criteria) stenosis at the origin of the right ICA, moderate narrowing of the distal left common carotid, and moderate narrowing (50-60%) of the left ICA origin. At least moderate narrowing is noted in the mid left ICA, where there is a sharp angulation, at the level of C2-C3, and just distally, there is an inferolateral broad-based aneurysmal outpouching, measuring approximately 3 mm. Multifocal high-grade narrowing is noted in the left carotid siphon, with suspected near occlusion, or occlusion of the supraclinoid portion of the left ICA. Flow is reconstituted in the left ICA terminus. There is also ijyz-mh-scvghmsw multifocal narrowing of the right carotid siphon. Degree of vascular enhancement in the left MCA is decreased compared to the right side. The intracranial portion of the vertebral arteries demonstrate mild multifocal narrowing. Basilar artery is normally patent. No aneurysm, or major branch vessel occlusion is identified intracranially. The major dural venous sinuses are patent. There is no mass or abnormal enhancement. No evidence for lymphadenopathy. The salivary glands are unremarkable. The thyroid gland is homogeneous. The visualized brain, orbits, paranasal sinuses are without worrisome finding. No suspicious bony lesion. Visualized lung apices are unremarkable. Impression: Moderate stenosis of the bilateral ICA origins. Mild stenosis of the left vertebral artery origin, at least moderate stenosis of the origin and proximal portion of right vertebral artery. At least moderate focal narrowing and sharp angulation in the mid left ICA at the level of C2-C3. 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 Multifocal high-grade narrowing in the left carotid siphon. Suspect near occlusion or occlusion of the supraclinoid portion of the left ICA, with reconstitution of flow in left ICA terminus. Mild to moderate multifocal narrowing of the right carotid siphon. Signed: Sylvia Mcdaniels MD Report Verified Date/Time:11/21/2017 14:54:26 Reading Location: [facility] Radiology Reading Room Procedure Note Interface, External Ris In - 11/21/2017 3:39 PM CDT FINAL REPORT CT angiogram of the upper chest, neck, and head Comparison: MRA dated November 20, 2017 Reason for exam: TIA Discussion: Multiple axial CT images of the upper chest, neck, and head were obtained using CT angiography technique. 2-D and 3-D reconstructed images were provided. Please note that CTA is inherently insensitive in evaluating the cavernous and skullbase portions of the internal carotid arteries because of adjacent bone and venous opacification. This exam was performed according to our departmental dose optimization program which includes automated exposure control, adjustment of the mA and/or kV according to patient's size and/or use of iterative reconstructive technique. There is mild calcification at the aortic arch and great vessel origins, without hemodynamically significant stenosis. Mild narrowing is noted at the bifurcation of right common carotid and subclavian arteries. There is mild stenosis at the origin of the left vertebral artery, and 1 cm segment of at least moderate stenosis at origin of the right vertebral artery. Remainder of the cervical segment vertebral arteries are normally patent. Heavy atherosclerotic calcification is present at both carotid bifurcations, with moderate (approximately 50-60 % narrowing by NASCET criteria) stenosis at the origin of the right ICA, moderate narrowing of the distal left common carotid, and moderate narrowing (50-60%) of the left ICA origin. At least moderate narrowing is noted in the mid left ICA, where there is a sharp angulation, at the level of C2-C3, and just distally, there is an inferolateral broad-based aneurysmal outpouching, measuring approximately 3 mm. Multifocal high-grade narrowing is noted in the left carotid siphon, with suspected near occlusion, or occlusion of the supraclinoid portion of the left ICA. Flow is reconstituted in the left ICA terminus. There is also iwql-bq-aasymlzb multifocal narrowing of the right carotid siphon. Degree of vascular enhancement in the left MCA is decreased compared to the right side. The intracranial portion of the vertebral arteries demonstrate mild multifocal narrowing. Basilar artery is normally patent. No aneurysm, or major branch vessel occlusion is identified intracranially. The major dural venous sinuses are patent. There is no mass or abnormal enhancement. No evidence for lymphadenopathy. The salivary glands are unremarkable. The thyroid gland is homogeneous. The visualized brain, orbits, paranasal sinuses are without worrisome finding. No suspicious bony lesion. Visualized lung apices are unremarkable. Impression: Moderate stenosis of the bilateral ICA origins. Mild stenosis of the left vertebral artery origin, at least moderate stenosis of the origin and proximal portion of right vertebral artery. At least moderate focal narrowing and sharp angulation in the mid left ICA at the level of C2-C3. 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 Multifocal high-grade narrowing in the left carotid siphon. Suspect near occlusion or occlusion of the supraclinoid portion of the left ICA, with reconstitution of flow in left ICA terminus. Mild to moderate multifocal narrowing of the right carotid siphon. Signed: Sylvia Mcdaniels MD Report Verified Date/Time: 11/21/2017 14:54:26 Reading Location: [facility] Radiology Reading Room Performing Organization Address City/State/Zipcode Phone Number [facility] CTA brain (11/21/2017 1:55 PM CDT) Narrative Performed At FINAL REPORT [facility] CT angiogram of the upper chest, neck, and head Comparison:MRA dated November 20, 2017 Reason for exam: TIA Discussion: Multiple axial CT images of the upper chest, neck, and head were obtained using CT angiography technique. 2-D and 3-D reconstructed images were provided.Please note that CTA is inherently insensitive in evaluating the cavernous and skullbase portions of the internal carotid arteries because of adjacent bone and venous opacification. This exam was performed according to our departmental dose optimization program which includes automated exposure control, adjustment of the mA and/or kV according to patient's size and/or use of iterative reconstructive technique. There is mild calcification at the aortic arch and great vessel origins, without hemodynamically significant stenosis. Mild narrowing is noted at the bifurcation of right common carotid and subclavian arteries. There is mild stenosis at the origin of the left vertebral artery, and 1 cm segment of at least moderate stenosis at origin of the right vertebral artery. Remainder of the cervical segment vertebral arteries are normally patent. Heavy atherosclerotic calcification is present at both carotid bifurcations, with moderate (approximately 50-60 % narrowing by NASCET criteria) stenosis at the origin of the right ICA, moderate narrowing of the distal left common carotid, and moderate narrowing (50-60%) of the left ICA origin. At least moderate narrowing is noted in the mid left ICA, where there is a sharp angulation, at the level of C2-C3, and just distally, there is an inferolateral broad-based aneurysmal outpouching, measuring approximately 3 mm. Multifocal high-grade narrowing is noted in the left carotid siphon, with suspected near occlusion, or occlusion of the supraclinoid portion of the left ICA. Flow is reconstituted in the left ICA terminus. There is also rxez-qw-uqmqhsbc multifocal narrowing of the right carotid siphon. Degree of vascular enhancement in the left MCA is decreased compared to the right side. The intracranial portion of the vertebral arteries demonstrate mild multifocal narrowing. Basilar artery is normally patent. No aneurysm, or major branch vessel occlusion is identified intracranially. The major dural venous sinuses are patent. There is no mass or abnormal enhancement. No evidence for lymphadenopathy. The salivary glands are unremarkable. The thyroid gland is homogeneous. The visualized brain, orbits, paranasal sinuses are without worrisome finding. No suspicious bony lesion. Visualized lung apices are unremarkable. Impression: Moderate stenosis of the bilateral ICA origins. Mild stenosis of the left vertebral artery origin, at least moderate stenosis of the origin and proximal portion of right vertebral artery. At least moderate focal narrowing and sharp angulation in the mid left ICA at the level of C2-C3. 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 Multifocal high-grade narrowing in the left carotid siphon. Suspect near occlusion or occlusion of the supraclinoid portion of the left ICA, with reconstitution of flow in left ICA terminus. Mild to moderate multifocal narrowing of the right carotid siphon. Signed: Sylvia Mcdaniels MD Report Verified Date/Time:11/21/2017 14:54:26 Reading Location: [facility] Radiology Reading Room Procedure Note Interface, External Ris In - 11/21/2017 3:39 PM CDT FINAL REPORT CT angiogram of the upper chest, neck, and head Comparison: MRA dated November 20, 2017 Reason for exam: TIA Discussion: Multiple axial CT images of the upper chest, neck, and head were obtained using CT angiography technique. 2-D and 3-D reconstructed images were provided. Please note that CTA is inherently insensitive in evaluating the cavernous and skullbase portions of the internal carotid arteries because of adjacent bone and venous opacification. This exam was performed according to our departmental dose optimization program which includes automated exposure control, adjustment of the mA and/or kV according to patient's size and/or use of iterative reconstructive technique. There is mild calcification at the aortic arch and great vessel origins, without hemodynamically significant stenosis. Mild narrowing is noted at the bifurcation of right common carotid and subclavian arteries. There is mild stenosis at the origin of the left vertebral artery, and 1 cm segment of at least moderate stenosis at origin of the right vertebral artery. Remainder of the cervical segment vertebral arteries are normally patent. Heavy atherosclerotic calcification is present at both carotid bifurcations, with moderate (approximately 50-60 % narrowing by NASCET criteria) stenosis at the origin of the right ICA, moderate narrowing of the distal left common carotid, and moderate narrowing (50-60%) of the left ICA origin. At least moderate narrowing is noted in the mid left ICA, where there is a sharp angulation, at the level of C2-C3, and just distally, there is an inferolateral broad-based aneurysmal outpouching, measuring approximately 3 mm. Multifocal high-grade narrowing is noted in the left carotid siphon, with suspected near occlusion, or occlusion of the supraclinoid portion of the left ICA. Flow is reconstituted in the left ICA terminus. There is also efmh-yz-pfhfzeyg multifocal narrowing of the right carotid siphon. Degree of vascular enhancement in the left MCA is decreased compared to the right side. The intracranial portion of the vertebral arteries demonstrate mild multifocal narrowing. Basilar artery is normally patent. No aneurysm, or major branch vessel occlusion is identified intracranially. The major dural venous sinuses are patent. There is no mass or abnormal enhancement. No evidence for lymphadenopathy. The salivary glands are unremarkable. The thyroid gland is homogeneous. The visualized brain, orbits, paranasal sinuses are without worrisome finding. No suspicious bony lesion. Visualized lung apices are unremarkable. Impression: Moderate stenosis of the bilateral ICA origins. Mild stenosis of the left vertebral artery origin, at least moderate stenosis of the origin and proximal portion of right vertebral artery. At least moderate focal narrowing and sharp angulation in the mid left ICA at the level of C2-C3. 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 Multifocal high-grade narrowing in the left carotid siphon. Suspect near occlusion or occlusion of the supraclinoid portion of the left ICA, with reconstitution of flow in left ICA terminus. Mild to moderate multifocal narrowing of the right carotid siphon. Signed: Sylvia Mcdaniels MD Report Verified Date/Time: 11/21/2017 14:54:26 Reading Location: [facility] Radiology Reading Room Performing Organization Address City/[facility] Phone Number [facility] TSH/Free T4 If Indicated (11/20/2017 9:14 PM CDT)Only the most recent of2 resultswithin the time period is included. TSH 4.66 0.35 - 4.94 uIU/mL [facility] Specimen Blood Performing Organization Address City/[facility] Cent[facility]ode Phone Number [address] [phone] [place] Lipid panel (11/20/2017 9:14 PM CDT) Triglycerides 70 mg/dL [facility] Cholesterol 101 mg/dL [facility] HDL 39 mg/dL [facility] LDL Calculated 48 mg/dL [facility] Specimen Blood Narrative Performed At [facility] Triglyceride Reference Range: Low Risk <150 [id number] High Risk 200-499 Very High Risk>=500 Cholesterol Reference Range: Low Risk <200 [id number] High Risk>240 HDL Cholesterol Reference Range: Low Risk >=60 High Risk <40 LDL Cholesterol Reference Range: Optimal<100 Near [id number] Very High >=190 Performing Organization Address [facility] Cent[facility]oks Phone Number [address] [phone] [place] MR brain without IV contrast (11/20/2017 10:36 AM CDT) Narrative Performed At FINAL REPORT [facility] MRI Brain without contrast Clinical History: CVA Technique: MRI of the brain utilizing axial T2, FLAIR, GRE, DWI; sagittal and coronal T1-weighted images. Comparisons: None Findings: There is no evidence of acute infarct or parenchymal hemorrhage. There are punctate chronic bilateral cerebellar infarcts. There is asymmetric FLAIR signal abnormality throughout the left cerebral sulci, without corresponding gradient echo signal dephasing. There is periventricular and subcortical white matter T2 hyperintensity, which is nonspecific but compatible with chronic microvascular ischemic change. There is mild generalized parenchymal volume loss without hydrocephalus, midline shift, or apparent mass effect. There are no extra-axial fluid collections. The craniocervical junction is preserved. The major intracranial flow-voids appear patent. IMPRESSION: No evidence of acute infarct. Punctate chronic bilateral cerebellar infarcts. Left cerebral sulcal FLAIR signal abnormality. The differential diagnosis includes slow vascular flow related to a proximal stenosis versus abnormal sulcal debris. However, an asymmetric meningitis would be considered atypical. Clinical correlation is requested. Signed: Alexa Bolden MD Report Verified Date/Time:11/20/2017 11:05:05 Reading Location: [address] Neuro Reading Room Procedure Note Interface, External Ris In - 11/20/2017 11:07 AM CDT FINAL REPORT MRI Brain without contrast Clinical History: CVA Technique: MRI of the brain utilizing axial T2, FLAIR, GRE, DWI; sagittal and coronal T1-weighted images. Comparisons: None Findings: There is no evidence of acute infarct or parenchymal hemorrhage. There are punctate chronic bilateral cerebellar infarcts. There is asymmetric FLAIR signal abnormality throughout the left cerebral sulci, without corresponding gradient echo signal dephasing. There is periventricular and subcortical white matter T2 hyperintensity, which is nonspecific but compatible with chronic microvascular ischemic change. There is mild generalized parenchymal volume loss without hydrocephalus, midline shift, or apparent mass effect. There are no extra-axial fluid collections. The craniocervical junction is preserved. The major intracranial flow-voids appear patent. IMPRESSION: No evidence of acute infarct. Punctate chronic bilateral cerebellar infarcts. Left cerebral sulcal FLAIR signal abnormality. The differential diagnosis includes slow vascular flow related to a proximal stenosis versus abnormal sulcal debris. However, an asymmetric meningitis would be considered atypical. Clinical correlation is requested. Signed: Alexa Bolden MD Report Verified Date/Time: 11/20/2017 11:05:05 Reading Location: [address] Neuro Reading Room Performing Organization Address City/State/Zipcode Phone Number [facility] MRA neck without IV contrast (11/20/2017 10:36 AM CDT) Narrative Performed At FINAL REPORT [facility] MRA Head and Neck CLINICAL HISTORY: CVA TECHNIQUE: MRA of the head utilizing 3-D geit-ls-qkkwuk technique, with 3-D reconstructions. MRA of the neck utilizing 2-D and 3-D ngho-gn-nwskic technique, with 3-D reconstructions. COMPARISON: None FINDINGS: There is asymmetric decreased intensity of flow related enhancement throughout the left common and internal carotid artery. There is a high-grade stenosis of the proximal left internal carotid artery, although exact quantification is difficult. Additionally, there is a severe appearing stenosis of the left internal carotid artery siphon, with near complete signal dropout in the paraclinoid region. There is diminished intensity of flow related enhancement throughout the left middle cerebral artery without evidence of a proximal branch vessel occlusion. There is no other evidence for a [place] proximal branch vessel occlusion. There is a severe stenosis of the proximal left posterior cerebral artery. There is no hemodynamically significant stenosis of the proximal right internal carotid artery by NASCET criteria. There is a severe appearing stenosis of the right internal carotid artery siphons. There is antegrade flow in the vertebral arteries in the neck. IMPRESSION: Decreased intensity of flow related enhancement throughout the left common and internal carotid artery with severe stenosis and focal signal dropout near the carotid terminus. Decreased intensity of flow related enhancement within the left middle artery branch vessels likely reflects slow flow from the upstream stenosis, and may account for the asymmetric FLAIR signal abnormality on MRI brain. Severe stenosis of the right internal carotid artery siphon. Signed: Alexa Bolden MD Report Verified Date/Time:11/20/2017 11:33:14 Reading Location: [address] Neuro Reading Room Procedure Note Interface, External Ris In - 11/20/2017 11:35 AM CDT FINAL REPORT MRA Head and Neck CLINICAL HISTORY: CVA TECHNIQUE: MRA of the head utilizing 3-D nljg-eb-dhkskb technique, with 3-D reconstructions. MRA of the neck utilizing 2-D and 3-D sfsj-gb-tovkzg technique, with 3-D reconstructions. COMPARISON: None FINDINGS: There is asymmetric decreased intensity of flow related enhancement throughout the left common and internal carotid artery. There is a high-grade stenosis of the proximal left internal carotid artery, although exact quantification is difficult. Additionally, there is a severe appearing stenosis of the left internal carotid artery siphon, with near complete signal dropout in the paraclinoid region. There is diminished intensity of flow related enhancement throughout the left middle cerebral artery without evidence of a proximal branch vessel occlusion. There is no other evidence for a [place] proximal branch vessel occlusion. There is a severe stenosis of the proximal left posterior cerebral artery. There is no hemodynamically significant stenosis of the proximal right internal carotid artery by NASCET criteria. There is a severe appearing stenosis of the right internal carotid artery siphons. There is antegrade flow in the vertebral arteries in the neck. IMPRESSION: Decreased intensity of flow related enhancement throughout the left common and internal carotid artery with severe stenosis and focal signal dropout near the carotid terminus. Decreased intensity of flow related enhancement within the left middle artery branch vessels likely reflects slow flow from the upstream stenosis, and may account for the asymmetric FLAIR signal abnormality on MRI brain. Severe stenosis of the right internal carotid artery siphon. Signed: Alexa Bolden MD Report Verified Date/Time: 11/20/2017 11:33:14 Reading Location: [address] Neuro Reading Room Performing Organization Address City/State/Zipcode Phone Number [facility] RIS MRA head without IV contrast (11/20/2017 10:36 AM CDT) Narrative Performed At FINAL REPORT [facility] RIS MRA Head and Neck CLINICAL HISTORY: CVA TECHNIQUE: MRA of the head utilizing 3-D isri-ay-gsluhj technique, with 3-D reconstructions. MRA of the neck utilizing 2-D and 3-D glgt-hj-dozuqa technique, with 3-D reconstructions. COMPARISON: None FINDINGS: There is asymmetric decreased intensity of flow related enhancement throughout the left common and internal carotid artery. There is a high-grade stenosis of the proximal left internal carotid artery, although exact quantification is difficult. Additionally, there is a severe appearing stenosis of the left internal carotid artery siphon, with near complete signal dropout in the paraclinoid region. There is diminished intensity of flow related enhancement throughout the left middle cerebral artery without evidence of a proximal branch vessel occlusion. There is no other evidence for a [place] proximal branch vessel occlusion. There is a severe stenosis of the proximal left posterior cerebral artery. There is no hemodynamically significant stenosis of the proximal right internal carotid artery by NASCET criteria. There is a severe appearing stenosis of the right internal carotid artery siphons. There is antegrade flow in the vertebral arteries in the neck. IMPRESSION: Decreased intensity of flow related enhancement throughout the left common and internal carotid artery with severe stenosis and focal signal dropout near the carotid terminus. Decreased intensity of flow related enhancement within the left middle artery branch vessels likely reflects slow flow from the upstream stenosis, and may account for the asymmetric FLAIR signal abnormality on MRI brain. Severe stenosis of the right internal carotid artery siphon. Signed: Alexa Bolden MD Report Verified Date/Time:11/20/2017 11:33:14 Reading Location: [facility] C013V Neuro Reading Room Procedure Note Interface, External Ris In - 11/20/2017 11:35 AM CDT FINAL REPORT MRA Head and Neck CLINICAL HISTORY: CVA TECHNIQUE: MRA of the head utilizing 3-D [id number]-vm-cthhye technique, with 3-D reconstructions. MRA of the neck utilizing 2-D and 3-D eacz-[id number] technique, with 3-D reconstructions. COMPARISON: None FINDINGS: There is asymmetric decreased intensity of flow related enhancement throughout the left common and internal carotid artery. There is a high-grade stenosis of the proximal left internal carotid artery, although exact quantification is difficult. Additionally, there is a severe appearing stenosis of the left internal carotid artery siphon, with near complete signal dropout in the paraclinoid region. There is diminished intensity of flow related enhancement throughout the left middle cerebral artery without evidence of a proximal branch vessel occlusion. There is no other evidence for a [place] proximal branch vessel occlusion. There is a severe stenosis of the proximal left posterior cerebral artery. There is no hemodynamically significant stenosis of the proximal right internal carotid artery by NASCET criteria. There is a severe appearing stenosis of the right internal carotid artery siphons. There is antegrade flow in the vertebral arteries in the neck. IMPRESSION: Decreased intensity of flow related enhancement throughout the left common and internal carotid artery with severe stenosis and focal signal dropout near the carotid terminus. Decreased intensity of flow related enhancement within the left middle artery branch vessels likely reflects slow flow from the upstream stenosis, and may account for the asymmetric FLAIR signal abnormality on MRI brain. Severe stenosis of the right internal carotid artery siphon. Signed: Alexa Bolden MD Report Verified Date/Time: 11/20/2017 11:33:14 Reading Location: [facility] C013V Neuro Reading Room Performing Organization Address City/State/Zipcode Phone Number GE RIS CBC with platelet count + automated diff (11/20/2017 5:27 AM CDT) WBC 8.3 3.5 - 10.5 K/L [facility] RBC 4.11 3.93 - 5.22 M/L [facility] Hemoglobin 13.4 11.2 - 15.7 GM/DL [facility] Hematocrit 39.7 34.1 - 44.9 % [facility] MCV 96.6 (H) 79.4 - 94.8 fL [facility] MCH 32.6 (H) 25.6 - 32.2 pg [facility] MCHC 33.8 32.2 - 35.5 GM/DL [facility] RDW 12.1 11.7 - 14.4 % [facility] Platelets 209 150 - 450 K/CU MM [facility] MPV 9.7 9.4 - 12.3 fL [facility] nRBC 0 0 - 0 /100 WBC [facility] % Neutros 49 % [facility] % Lymphs 35 % [facility] % Monos 12 % [facility] % Eos 4 % [facility] % Baso 1 % [facility] # Neutros 4.02 1.56 - 6.13 K/L [facility] # Lymphs 2.89 1.18 - 3.74 K/L [facility] # Monos 0.95 (H) 0.24 - 0.36 K/L [facility] # Eos 0.35 0.04 - 0.36 K/L [facility] # Baso 0.04 0.01 - 0.08 K/L [facility] Immature Granulocytes-Relative 0 0 - 1 % [facility] Specimen Blood Performing Organization Address City/[facility] Phone Number [facility] [address] [place] [address] [phone] [place] Hemoglobin A1c (11/20/2017 5:27 AM CDT) Hemoglobin A1C 6.1 4.3 - 6.1 % [facility] Specimen Blood Performing Organization Address [facility] Phone Number [facility] [address] [place] [phone] [place] Vitamin B12 (11/20/2017 5:27 AM CDT) Vitamin B12 857 (H) 213 - 816 pg/mL [facility] Specimen Blood Performing Organization Address City/[facility]oks Phone Number [facility] [address] [place] [address] [phone] [place] after 08/19/2017 Insurance Payer Benefit Plan / Group Subscriber ID Type Phone Address [facility] xxxxxxxxx Maps Contracted Advance Directives For more information, please contact:[address] [phone] Code Status Date Activated Date Inactivated Comments Partial Code 11/19/2017 10:17 PM 11/22/2017 6:56 PM This code status was determined by: Patient Drug Protocol After Arrest Occurs? No Mechanical Ventilation with Intubation? No Bag/Mask? No Internal/External Pacemaker? No Transfer to Critical Care? No Chest Compressions? No Defibrillation/Cardioversion? No
--- OUTSIDE RECORDS SUMMARY | 2018-08-20 18:08 | XMS REPORT ---
:1935 Author Organization [employer] Care Team Providers Name Role Phone Britt, Na Provider Role Unavailable Allergies, Adverse Reactions, Alerts Substance Reaction Event Type N.K.D.A. Info Not Available Non Drug Allergy Problems Problem Type Condition Code Onset Dates Condition Status Problem Type 2 diabetes E11.9 Active Problem Obstructive sleep apnea G47.33 Active Problem Overactive bladder N32.81 Active Problem Hospital discharge follow-up Z09 Active Assessment Hyperlipidemia E78.5 Active Problem Atherosclerosis I70.90 Active Assessment Allergic rhinitis J30.9 Active Assessment Obstructive sleep apnea G47.33 Active Problem History of TIA (transient ischemic Z86.73 Active attack) Problem 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 Active Problem Recurrent urinary tract infection N39.0 Active Problem Stenosis of left carotid artery I65.22 Active Problem Other speech disturbance R47.89 Active Problem GERD (gastroesophageal reflux K21.9 Active disease) Assessment Hypertension I10 Active Assessment Type 2 diabetes E11.9 Active Problem Allergic rhinitis J30.9 Active Problem Hyperlipidemia E78.5 Active Problem Obesity E66.9 Active Problem Chronic a-fib I48.2 Active Assessment Chronic a-fib I48.2 Active Problem Hypertension I10 Active Problem Abnormal mammogram R92.8 Active Medications Medication Code Code Instructions Start End Status Dosage System Date Date Vitamin D3 [facility] 62415417250 1000 UNIT Active 1 capsule Orally Once a day HydrALAZINE HCl [facility] 59687189535 100 MG Orally December 05, Active as Three times a 2018 day Omeprazole [facility] 90647970646 40 MG orally Active 1 EACH daily in AM ONCE A DAY Plavix ND 46922949842 75 MG Orally Active 1 tablet Once a day Cyanocobalamin [facility] [address]-29 1000 MCG/15ML Active 15 ml Orally Once a day Valsartan ND 29777164690 160 MG Orally Active 1 tablet Once a day Verapamil HCl ER ND 17776667514 240 MG Orally Active 1 capsule Once a day Coreg [facility] 63630491774 25 MG Orally Active not defined HydrALAZINE HCl [facility] 36748780254 50 MG Orally Active 1 tablet Four times a with food day Eliquis [facility] 66249117498 5 MG Orally Active 1 tablet twice a day Myrbetriq [facility] 82997748228 25 MG Orally Inactive 1 tablet Once a day Metformin HCl [facility] 50034118417 500 MG Orally Active 1 tablet Twice a day with meals Toviaz [facility] 09072095417 8 MG Orally Active 1 tablet Once a day Crestor [facility] 04514054185 40 MG Active 1 EACH ONCE A DAY Results No Known Results Summary Purpose eClinicalWorks Submission
--- OUTSIDE RECORDS SUMMARY | 2018-08-20 18:08 | XMS REPORT ---
[...] Active Problem Hospital discharge follow-up Z09 Active Problem Atherosclerosis I70.90 Active Problem History of TIA (transient ischemic Z86.73 Active attack) Problem 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 Active Problem Recurrent urinary tract infection N39.0 Active Problem Stenosis of left carotid artery I65.22 Active Problem Other speech disturbance R47.89 Active Problem GERD (gastroesophageal reflux K21.9 Active disease) Assessment Urinary tract infection without N39.0 Active hematuria, site unspecified Problem Allergic rhinitis J30.9 Active Problem Hyperlipidemia E78.5 Active Problem Obesity E66.9 Active Problem Chronic a-fib I48.2 Active Problem Hypertension I10 Active Problem Abnormal mammogram R92.8 Active Medications Medication Code Code Instructions Start End Status Dosage System Date Date Verapamil HCl ER [facility] 36558030886 240 MG Orally Active 1 capsule Once a day Bactrim DS [facility] 19985970505 800-160 MG January Active 1 tablet Orally Twice a , [address] [facility] 64597464424 500 MG Orally Active 1 tablet Twice a day with meals Valsartan [facility] 43485362404 160 MG Orally Active 1 tablet Once a day Plavix ND 61993463899 75 MG Orally Active 1 tablet Once a day Vitamin D3 ND 27720209805 1000 UNIT Active 1 capsule Orally Once a day Toviaz [facility] 39036580589 8 MG Orally Active 1 tablet Once a day Eliquis [facility] 05559082435 5 MG Orally Active 1 tablet twice a day Crestor [facility] 04878765877 40 MG Active 1 EACH ONCE A DAY HydrALAZINE HCl [facility] 94381241852 50 MG Orally Active 1 tablet Four times a with food day Cyanocobalamin [facility] [address]-66 1000 MCG/15ML Active 15 ml Orally Once a day Omeprazole [facility] 72966549542 40 MG orally Active 1 EACH daily in AM ONCE A DAY HydrALAZINE HCl [facility] 14900540626 100 MG Orally December 05, Active as Three times a [address] [facility] 95854303733 25 MG Orally Active not defined Results No Known Results Summary Purpose eClinicalWorks Submission
--- OUTSIDE RECORDS SUMMARY | 2018-08-20 18:08 | XMS REPORT ---
:1935 [facility] Address [address] [place] [address] [address] [place] [address] Care Team Providers Name Role Phone DORY MEJIA Unavailable Unavailable Problems This patient has no known problems. Allergies, Adverse Reactions, Alerts This patient has no known allergies or adverse reactions. Medications This patient has no known medications. Results Test Description Test Time Test Comments Text Results Atomic Results Result Comments NV, ANGIOGRAM, 2017-11-22 11:37:00 Reason for FINAL REPORT PATIENT ID: CEREBRAL exam:->TIAs [id number] November 22, 2017 CLINICAL HISTORY: 82 years [...] guidance and strict sterile technique a 4 Romanian femoral sheath was inserted into the right common femoral artery. Through the sheath a 4 Romanian vertebral catheter was then advanced over the wire and the following procedure was performed: 1. Selective right common carotid arteriogram with biplane imaging over the common carotid bifurcation. 2. Selective right common carotid arteriogram with biplane imaging over the intracranial carotid circulation.3. Selective left common carotid arteriogram with biplane imaging over the common carotid bifurcation.4. Selective left common carotid arteriogram with biplane imaging over the intracranial carotid circulation.5. Selective left vertebral angiogram with biplane imaging [...] right cavernous ICA stenosis. Signed: Susanna Aden MDReport Verified Date/Time: 11/22/2017 11:37:47 Reading Location: [facility] Y018 Neuro Angio Reading Room -GLUCOSE METER 2017-11-22 07:43:00 Test Item Value Reference Range Comments POC-GLUCOSE METER (BEAKER) (test 149 mg/dL 70-110 TESTED AT [facility] [address] [facility] qoco=1379) [facility] [address] [id number] 06:46:00 Test Item Value Reference Range Comments MAGNESIUM (BEAKER) (test pqdk=727) 2.0 mg/dL 1.6-2.6 BASIC METABOLIC [id number] 06:46:00 Test Item Value Reference Range Comments SODIUM (BEAKER) (test 133 meq/L 136-145 skpw=962) POTASSIUM (BEAKER) (test 4.4 meq/L 3.5-5.1 rnkx=120) CHLORIDE (BEAKER) (test 99 meq/L 98-107 midd=409) CO2 (BEAKER) (test 25 meq/L 22-29 eeex=838) BLOOD UREA NITROGEN 11 mg/dL 7-21 (BEAKER) (test fnft=568) CREATININE (BEAKER) (test 0.65 mg/dL 0.57-1.25 jsdt=327) GLUCOSE RANDOM (BEAKER) 162 mg/dL 70-105 (test ljfl=496) CALCIUM (BEAKER) (test 9.5 mg/dL 8.4-10.2 oxsz=566) EGFR (BEAKER) (test 87 mL/min/1.73 sq m ESTIMATED GFR IS NOT fujv=4719) ACCURATE CREATININE CLEARANCE IN PREDICTING GLOMERULAR FILTRATION RATE. ESTIMATED GFR IS NOT APPLICABLE FOR DIALYSIS PATIENTS. [id number] 06:33:00 Test Item Value Reference Range Comments PROTIME (BEAKER) (test gznx=495) 15.5 seconds 11.7-14.7 INR (BEAKER) (test uapj=717) 1.2 <=5.9 PARTIAL THROMBOPLASTIN TIME (BEAKER) (test 35.9 seconds 22.5-36.0 hoht=377) RECOMMENDED COUMADIN/WARFARIN INR THERAPY RANGESSTANDARD DOSE: 2.0 - 3.0 Includes: PROPHYLAXIS forvenous thrombosis, systemic embolization; TREATMENT for venous thrombosis and/or pulmonary embolus.HIGH RISK: Target INR is 2.5-3.5 for patients with mechanical heart valves.POCT-GLUCOSE [id number] 06:22:00 Test Item Value Reference Range Comments POC-GLUCOSE METER (BEAKER) 161 mg/dL 70-110 TESTED AT [facility] [address] [facility] (test nbcg=8510) [facility] [address] POCT-GLUCOSE [id number] 02:08:00 Test Item Value Reference Range Comments POC-GLUCOSE METER (BEAKER) 182 mg/dL 70-110 TESTED AT [facility] [address] [facility] (test xbse=0021) [facility] [address] POCT-GLUCOSE [id number] 19:30:00 Test Item Value Reference Range Comments POC-GLUCOSE METER (BEAKER) 146 mg/dL 70-110 TESTED AT [facility] [address] [facility] (test vief=1382) [facility] [address] CT, CAROTID, [id number] 14:54:00Please include aortaFINAL REPORT CT angiogram of the upper chest, neck, and head Comparison: MRAdated November 20, 2017 Reason for exam: TIA [...] are normally patent. Heavy atherosclerotic calcification is presentat both carotid bifurcations, with moderate (approximately 50-60 % narrowing by NASCET criteria ) stenosis at the origin of the right [...] the left ICA terminus. There is also wymp-ys-vbvoaopd multifocal narrowing of the right carotid siphon. [...] for lymphadenopathy. The salivary glands are unremarkable. Thethyroid gland is homogeneous. The visualized brain, orbits, [...] Suspect near occlusion or occlusion of the supraclinoidportion of the left ICA, with reconstitution of flow in left ICA terminus. Mild to moderate multifocal narrowing of the right carotid siphon. Signed: Sylvia Mcd[facility]iel[facility]arnes[facility] Verified Date/Time: 11/21/2017 14:54:26 Reading Location: [facility] Radiology Reading Room [facility] [id number] 14:54:00FINAL REPORT CT angiogram of the upper chest, neck, and head Comparison: MRAdated November 20, 2017 Reason for exam: TIA [...] are normally patent. Heavy atherosclerotic calcification is presentat both carotid bifurcations, with moderate (approximately 50-60 % narrowing by NASCET criteria ) stenosis at the origin of the right [...] the left ICA terminus. There is also zorj-gm-okggtify multifocal narrowing of the right carotid siphon. [...] for lymphadenopathy. The salivary glands are unremarkable. Thethyroid gland is homogeneous. The visualized brain, orbits, [...] Suspect near occlusion or occlusion of the supraclinoidportion of the left ICA, with reconstitution of flow in left ICA terminus. Mild to moderate multifocal narrowing of the right carotid siphon. Signed: Sylvia Mcdaniels Verified Date/Time: 11/21/2017 14:54:26 Reading Location: [facility] Radiology Reading Room POCT-GLUCOSE [id number] 11:50:00 Test Item Value Reference Range Comments POC-GLUCOSE METER (BEAKER) 153 mg/dL 70-110 TESTED AT [facility] [address] [facility] (test bcst=0939) [facility] [address] POCT-GLUCOSE [id number] 08:08:00 Test Item Value Reference Range Comments POC-GLUCOSE METER (BEAKER) 125 mg/dL 70-110 TESTED AT [facility] [address] [facility] (test tdnf=2524) [facility] [address] [id number] 06:43:00 Test Item Value Reference Range Comments MAGNESIUM (BEAKER) (test mnmb=007) 2.1 mg/dL 1.6-2.6 BASIC METABOLIC [id number] 06:43:00 Test Item Value Reference Range Comments SODIUM (BEAKER) (test 136 meq/L 136-145 jtov=760) POTASSIUM (BEAKER) (test 4.0 meq/L 3.5-5.1 pqvk=204) CHLORIDE (BEAKER) (test 101 meq/L 98-107 gwkz=770) CO2 (BEAKER) (test 27 meq/L 22-29 amex=805) BLOOD UREA NITROGEN 12 mg/dL 7-21 (BEAKER) (test vvlc=783) CREATININE (BEAKER) (test 0.68 mg/dL 0.57-1.25 ysyg=423) GLUCOSE RANDOM (BEAKER) 122 mg/dL 70-105 (test dlky=546) CALCIUM (BEAKER) (test 9.5 mg/dL 8.4-10.2 crqs=485) EGFR (BEAKER) (test 83 mL/min/1.73 sq m ESTIMATED GFR IS NOT ifpc=2435) ACCURATE CREATININE CLEARANCE IN PREDICTING GLOMERULAR FILTRATION RATE. ESTIMATED GFR IS NOT APPLICABLE FOR DIALYSIS PATIENTS. TSH/FREE T4 IF [id number] 22:12:00 Test Item Value Reference Range Comments THYROID STIMULATING HORMONE (BEAKER) (test 4.66 uIU/mL 0.35-4.94 kyma=921) [id number] 21:54:00 Test Item Value Reference Range Comments MAGNESIUM (BEAKER) (test iqty=903) 2.0 mg/dL 1.6-2.6 BASIC METABOLIC [id number] 21:54:00 Test Item Value Reference Range Comments SODIUM (BEAKER) (test 134 meq/L 136-145 rclw=855) POTASSIUM (BEAKER) (test 4.1 meq/L 3.5-5.1 eytc=815) CHLORIDE (BEAKER) (test 101 meq/L 98-107 yagz=388) CO2 (BEAKER) (test 24 meq/L 22-29 rhec=280) BLOOD UREA NITROGEN 11 mg/dL 7-21 (BEAKER) (test ukfx=632) CREATININE (BEAKER) (test 0.65 mg/dL 0.57-1.25 ealw=309) GLUCOSE RANDOM (BEAKER) 126 mg/dL 70-105 (test equm=561) CALCIUM (BEAKER) (test 9.5 mg/dL 8.4-10.2 yozp=154) EGFR (BEAKER) (test 87 mL/min/1.73 sq m ESTIMATED GFR IS NOT ewyq=0904) ACCURATE CREATININE CLEARANCE IN PREDICTING GLOMERULAR FILTRATION RATE. ESTIMATED GFR IS NOT APPLICABLE FOR DIALYSIS PATIENTS. LIPID [id number] 21:54:00 Test Item Value Reference Range Comments TRIGLYCERIDES (BEAKER) (test ywek=437) 70 mg/dL CHOLESTEROL (BEAKER) (test kdsh=383) 101 mg/dL HDL CHOLESTEROL (BEAKER) (test jbmv=027) 39 mg/dL LDL CHOLESTEROL CALCULATED (BEAKER) (test 48 mg/dL lzze=056) Triglyceride Reference Range: Low Risk <150 Borderline 150- 199 High Risk 200-499 Very High Risk >=500Cholesterol Reference Range: Low Risk <200 Borderline 200-239 High Risk > 240HDL Cholesterol Reference Range: Low Risk >=60 High Risk <40LDL Cholesterol Reference Range: Optimal <100 Near Optimal 100-129 Borderline 130-159 High 160-189 Very High >=190POCT-GLUCOSE [id number] 21:35:00 Test Item Value Reference Range Comments POC-GLUCOSE METER (BEAKER) 128 mg/dL 70-110 TESTED AT [address] (test mptt=5876) [facility] [address] POCT-GLUCOSE [id number] 17:55:00 Test Item Value Reference Range Comments POC-GLUCOSE METER (BEAKER) 113 mg/dL 70-110 TESTED AT [address] (test ytqr=2013) [facility] [address] POCT-GLUCOSE [id number] 12:32:00 Test Item Value Reference Range Comments POC-GLUCOSE METER (JANNETH) 120 mg/dL 70-110 TESTED AT [place] [address] [facility] (test iecd=8222[facility] [address] MR, MRA, BRAIN, WITHOUT [id number] 11:33:00Reason for exam:-> Ischemic Stroke EvaluationFINAL REPORT MRA Head and Neck CLINICAL HISTORY: CVA TECHNIQUE: MRA of the head utilizing 3-D osrl-iv-naaket technique, with 3-D reconstructions. MRA of the neck utilizing 2-D and 3-D time- of-flight technique, with 3-D reconstructions. COMPARISON: None FINDINGS: [...] dropout in the paraclinoid region. There is diminishedintensity of flow related enhancement throughout the left middle cerebral artery without evidence ofa proximal branch vessel occlusion. There is no other evidence for a [place] proximal branch vessel occlusion. There [...] right internal carotid artery siphon. Signed: Alexa Kocheport Verified Date/Time: 11/20/2017 11:33:14 Reading Location : [facility] C013V Neuro Reading Room MR, MRA, NECK, WITHOUT IV [id number] 11:33: 00Reason for exam:->Ischemic Stroke EvaluationFINAL REPORT MRA Head and Neck CLINICAL HISTORY: CVA TECHNIQUE: MRA of the head utilizing 3-D afxo-er-ntphug technique, with 3-D reconstructions. MRA of the neck utilizing 2-D and 3-D opvk-vt-wanepp technique, with 3-D reconstructions. COMPARISON: None FINDINGS: [...] dropout in the paraclinoid region. There is diminishedintensity of flow related enhancement throughout the left middle cerebral artery without evidence ofa proximal branch vessel occlusion. There is no other evidence for a [place] proximal branch vessel occlusion. There [...] right internal carotid artery siphon. Signed: Alexa Koch MDReport Verified Date/Time: 11/20/2017 11 :33:14 Reading Location: [address] Neuro Reading Room MR, BRAIN, WITHOUT [id number] 11:05:00Reason for exam:->Ischemic Stroke EvaluationFINAL REPORT MRI Brain without contrast Clinical History: CVA Technique: MRI of the brain utilizing axial T2, FLAIR, GRE, DWI; sagittal and coronal T1-weighted images. Comparisons: None Findings: There is no evidence of acute infarct or parenchymal hemorrhage. There are punctatechronic bilateral cerebellar infarcts. There is asymmetric FLAIR signal abnormality throughout the left cerebral sulci, without corresponding gradient echo signal dephasing. There is periventricular and subcortical white matter T2 hyperintensity, which is nonspecific but compatible with chronic microvascular ischemic change. There is mild generalized parenchymal volume loss without hydrocephalus, midline shift , or apparent mass effect. There are no [...] atypical. Clinical correlation is requested. Signed: Alexa Koch MDReport Verified Date/Time: 11/20/2017 11:05:05 Reading Location: [address] Neuro Reading Room HEMOGLOBIN [id number] 09:08:00 Test Item Value Reference Range Comments HEMOGLOBIN A1C (BEAKER) (test viwl=797) 6.1 % 4.3-6.1 POCT-GLUCOSE [id number] 08:27:00 Test Item Value Reference Range Comments POC-GLUCOSE METER ([facility]) 125 mg/dL 70-110 TESTED AT [facility] [address] [facility] (test qgwg=1130) [facility] [address] TSH/FREE T4 IF [id number] 07:47:00 Test Item Value Reference Range Comments THYROID STIMULATING HORMONE (BEAKER) (test 5.97 uIU/mL 0.35-4.94 qqqn=574) VITAMIN [id number] 07:44:00 Test Item Value Reference Range Comments VITAMIN B12 (BEAKER) (test irtf=118) 857 pg/mL 213-816 CBC W/PLT COUNT & AUTO [id number] 06:47:00 Test Item Value Reference Range Comments WHITE BLOOD CELL COUNT (BEAKER) (test sost=871) 8.3 K/ L 3.5-10.5 RED BLOOD CELL COUNT (BEAKER) (test ujyt=299) 4.11 M/ L 3.93-5.22 HEMOGLOBIN (BEAKER) (test fbpw=943) 13.4 GM/DL 11.2-15.7 HEMATOCRIT (BEAKER) (test uwce=004) 39.7 % 34.1-44.9 MEAN CORPUSCULAR VOLUME (BEAKER) (test rpox=366) 96.6 fL 79.4-94.8 MEAN CORPUSCULAR HEMOGLOBIN (BEAKER) (test 32.6 pg 25.6-32.2 dygw=748) MEAN CORPUSCULAR HEMOGLOBIN CONC (BEAKER) (test 33.8 GM/DL 32.2-35.5 hwwu=271) RED CELL DISTRIBUTION WIDTH (BEAKER) (test 12.1 % 11.7-14.4 hyag=135) PLATELET COUNT (BEAKER) (test prpl=063) 209 K/CU MM 150-450 MEAN PLATELET VOLUME (BEAKER) (test wxoq=557) 9.7 fL 9.4-12.3 NUCLEATED RED BLOOD CELLS (BEAKER) (test 0 /100 WBC 0-0 vupm=461) NEUTROPHILS RELATIVE PERCENT (BEAKER) (test 49 % dlwn=454) LYMPHOCYTES RELATIVE PERCENT (BEAKER) (test 35 % gznm=606) MONOCYTES RELATIVE PERCENT (BEAKER) (test 12 % weom=672) EOSINOPHILS RELATIVE PERCENT (BEAKER) (test 4 % zqtm=469) BASOPHILS RELATIVE PERCENT (BEAKER) (test 1 % djdg=669) NEUTROPHILS ABSOLUTE COUNT (BEAKER) (test 4.02 K/ L 1.56-6.13 esoi=693) LYMPHOCYTES ABSOLUTE COUNT (BEAKER) (test 2.89 K/ L 1.18-3.74 ntto=571) MONOCYTES ABSOLUTE COUNT (BEAKER) (test 0.95 K/ L 0.24-0.36 jyme=600) EOSINOPHILS ABSOLUTE COUNT (BEAKER) (test 0.35 K/ L 0.04-0.36 feqv=824) BASOPHILS ABSOLUTE COUNT (BEAKER) (test 0.04 K/ L 0.01-0.08 hovf=654) IMMATURE GRANULOCYTES-RELATIVE PERCENT (BEAKER) 0 % 0-1 (test dyvk=5789) POCT-GLUCOSE [id number] 22:09:00 Test Item Value Reference Range Comments POC-GLUCOSE METER (BEAKER) 130 mg/dL 70-110 TESTED AT [facility] [address] [facility] (test ygem=3297) [facility] [address]
--- NOTE | 2018-08-20 19:02 | RAD REPORT ---
EXAM DESCRIPTION: Diane Single View08/20/2018 6:47 pm CLINICAL HISTORY: Cough COMPARISON: October 2017 FINDINGS: The lungs appear clear of acute infiltrate. The heart is mildly enlarged. Postsurgical changes involve the chest. IMPRESSION: No acute abnormalities displayed
[2018-08-20] MEDS ORDERED: CARVEDILOL 6.25 MG TAB ONE (20:31)
--- NOTE | 2018-08-20 21:06 | ER ---
Nurse's Notes [facility] Name: Radha Lara Age: 83 yrs Sex: Female : 1935 Arrival Date: 08/20/2018 Time: 18:07 Bed 25 Private MD: Diagnosis: Acute upper respiratory infection, unspecified;Urinary tract infection, site not specified Presentation: 08/20 18:12 Presenting complaint: Patient states: I have been sick for 2-3 days and it is getting la1 worse, I feel SOB and am having pain in my shoulders, I have been real congested, I have felt really warm but dont know if I have had fever. Transition of care: patient was not received from another setting of care. Onset of symptoms was August 20, 2018. Risk Assessment: Do you want to hurt yourself or someone else? Patient reports no desire to harm self or others. Initial Sepsis Screen: Does the patient meet any 2 criteria? No. Patient's initial sepsis screen is negative. Does the patient have a suspected source of infection? No. Patient's initial sepsis screen is negative. Care prior to arrival: None. 18:12 Method Of Arrival: Wheelchair la1 18:12 Acuity: YOLANDE 3 la1 Triage Assessment: 18:30 Respiratory: Onset: The symptoms/episode began/occurred gradually, the patient has mild aj1 shortness of breath. 18:30 General: Appears in no apparent distress. aj1 Historical: - Allergies: 18:12 Aspirin; la1 18:12 Codeine; la1 18:12 Iodinated Contrast Media - IV Dye; la1 18:12 nitrous oxide; la1 18:12 vicoden; la1 18:12 Niacin; la1 18:12 Lisinopril; la1 18:12 Clonidine; la1 18:12 Nitrofurantoin; la1 - PMHx: 18:12 acid reflux; Atrial Fib; Diabetes - NIDDM; Hyperlipidemia; Hypertension; Kidney stones; la1 TIA; UTI; - Immunization history:: Adult Immunizations up to date. - Social history:: Smoking status: Patient/guardian denies using tobacco. - Ebola Screening: : No symptoms or risks identified at this time. Screenin:30 Abuse screen: Denies threats or abuse. Denies injuries from another. Nutritional aj1 screening: No deficits noted. Tuberculosis screening: No symptoms or risk factors identified. 21:59 Fall Risk No fall in past 12 months (0 pts). No secondary diagnosis (0 pts). No IV (0 aj1 pts). Ambulatory Aid- Crutches/Cane/Walker (15 pts). Gait- Weak (10 pts.). Mental Status- Oriented to own ability (0 pts). Total Glez Fall Scale indicates Low Risk Score (25-44 pts). As available Patient and Family Educated on Fall Prevention Program and strategies. Assessment: 18:30 General: Appears in no apparent distress. uncomfortable, ill, Behavior is calm, aj1 cooperative, appropriate for age. Pain: Complains of pain in left trapezius, right trapezius and thoracic area Pain does not radiate. Pain currently is 5 out of 10 on a pain scale. Neuro: Level of Consciousness is awake, alert, obeys commands. Cardiovascular: Denies chest pain, Heart tones S1 S2 present Patient's skin is warm and dry. Rhythm is sinus rhythm. Respiratory: Reports shortness of breath cough that is persistent Airway is patent Respiratory effort is even, labored, Respiratory pattern is regular, symmetrical, Breath sounds are clear bilaterally. GI: No signs and/or symptoms were reported involving the gastrointestinal system. : No signs and/or symptoms were reported regarding the genitourinary system. EENT: Reports nasal congestion nasal discharge. Derm: No signs and/or symptoms reported regarding the dermatologic system. Skin is pink, warm \T\ dry. normal. Musculoskeletal: No signs and/or symptoms reported regarding the musculoskeletal system. Circulation, motion, and sensation intact. 19:20 Reassessment: Patient appears in no apparent distress at this time. No changes from aj1 previously documented assessment. Patient and/or family updated on plan of care and expected duration. Pain level reassessed. Patient is alert, oriented x 3, equal unlabored respirations, skin warm/dry/pink. 19:50 Reassessment: Verbal order received from Velma Maynard NP to hold Rocephin until we are aj1 able to obtain a urine sample. 20:13 Reassessment: Patient appears in no apparent distress at this time. No changes from aj1 previously documented assessment. Patient and/or family updated on plan of care and expected duration. Pain level reassessed. Patient is alert, oriented x 3, equal unlabored respirations, skin warm/dry/pink. 21:30 Reassessment: Patient appears in no apparent distress at this time. No changes from aj1 previously documented assessment. Patient and/or family updated on plan of care and expected duration. Pain level reassessed. Patient is alert, oriented x 3, equal unlabored respirations, skin warm/dry/pink. Vital Signs: 18:20 BP 214 / 58; Pulse 69; Resp 18; Temp 98.0; Pulse Ox 97% on R/A; la1 19:20 BP 192 / 49; Pulse 55; Resp 16; Pulse Ox 100% on R/A; aj1 20:14 BP 208 / 62; Pulse 60; Resp 18; Pulse Ox 99% on R/A; aj1 21:30 BP 175 / 65; Pulse 58; Resp 18; Pulse Ox 97% on R/A; aj1 ED Course: 18:07 Patient arrived in ED. mr 18:13 Triage completed. la1 18:13 Arm band placed on right wrist. la1 18:17 Linette Julien RN is Primary Nurse. ph 18:24 Bessie Maynard FNP-C [facility]. snw 18:24 Chris Hammond MD is Attending Physician. snw 18:30 Patient has correct armband on for positive identification. Placed in gown. Bed in low aj1 position. Call light in reach. doughmaker on. Pulse ox on. NIBP on. 18:30 No provider procedures requiring assistance completed. aj1 18:30 EKG done, reviewed by Bessie BOWLING. aj1 18:48 Chest Single View XRAY In Process Unspecified. EDMS 19:16 Rebecca Lal RN is Primary Nurse. aj1 22:00 Patient did not have IV access during this emergency room visit. aj1 Administered Medications: 20:24 Drug: carvedilol 25 mg Route: PO; aj1 21:57 Follow up: Response: No adverse reaction aj1 21:30 Drug: Rocephin (cefTRIAXone) 1 grams Route: IM; Site: right gluteus; aj1 21:57 Follow up: Response: No adverse reaction aj1 Outcome: 21:06 Discharge ordered by . snw 22:00 Discharged to home via ambulance, with family. aj1 22:00 Condition: good 22:00 Discharge instructions given to patient, family, Instructed on discharge instructions, follow up and referral plans. medication usage, Demonstrated understanding of instructions, follow-up care, medications. 22:01 Patient left the ED. aj1 Signatures: Dispatcher [employer] EDMS Rebecca Lal RN RN aj1 Caesar Bessie, BAND SINGER-C BAND SINGER-Csnw Marley HannaKevin, RN RN la1 Linette Julien RN RN ph Corrections: (The following items were deleted from the chart) 19:16 General: Appears in no apparent distress. uncomfortable, ill, Behavior is calm, aj1 cooperative, appropriate for age, aj1 : 19:16 Pain: Complains of pain in left trapezius, right trapezius and thoracic area Pain aj1 does not radiate. Pain currently is 5 out of 10 on a pain scale. aj1 : 19:16 Neuro: Level of Consciousness is awake, alert, obeys commands, aj1 aj1 : 19:16 Cardiovascular: Denies chest pain, Heart tones S1 S2 present Patient's skin is aj1 warm and dry. Rhythm is sinus rhythm aj1 19:16 Respiratory: Reports shortness of breath cough that is persistent Airway is aj1 patent Respiratory effort is even, labored, Respiratory pattern is regular, symmetrical, Breath sounds are clear bilaterally. aj1 : 19:16 GI: No signs and/or symptoms were reported involving the gastrointestinal system. aj1 aj1 : 19:16 : No signs and/or symptoms were reported regarding the genitourinary system. aj1aj1 : 19:16 EENT: Reports nasal congestion nasal discharge aj1 aj1 19:16 Derm: No signs and/or symptoms reported regarding the dermatologic system. Skin aj1 is pink, warm \T\ dry. normal, aj1 : 19:16 Musculoskeletal: No signs and/or symptoms reported regarding the musculoskeletal aj1 system. Circulation, motion, and sensation intact. aj1
--- NOTE | 2018-08-20 21:07 | EDPHYS ---
Physician Documentation [facility] Name: Radha Lara Age: 83 yrs Sex: Female : 1935 Arrival Date: 08/20/2018 Time: 18:07 Bed 25 Private MD: ED Physician Chris Hammond HPI: 08/20 18:35 This 83 yrs old Female presents to ER via Wheelchair with complaints of Flu snw Symptoms, Breathing Difficulty. 18:35 congestion, low grade fever, body aches to upper chest and back. Onset: The snw symptoms/episode began/occurred suddenly, 2 day(s) ago, and became persistent. Severity of symptoms: At their worst the symptoms were moderate. It is unknown whether or not the patient has had similar symptoms in the past. It is unknown whether or not the patient has recently seen a physician, sees Dr. Britt. Historical: - Allergies: 18:12 Aspirin; la1 18:12 Codeine; la1 18:12 Iodinated Contrast Media - IV Dye; la1 18:12 nitrous oxide; la1 18:12 vicoden; la1 18:12 Niacin; la1 18:12 Lisinopril; la1 18:12 Clonidine; la1 18:12 Nitrofurantoin; la1 - PMHx: 18:12 acid reflux; Atrial Fib; Diabetes - NIDDM; Hyperlipidemia; Hypertension; Kidney stones; la1 TIA; UTI; - Immunization history:: Adult Immunizations up to date. - Social history:: Smoking status: Patient/guardian denies using tobacco. - Ebola Screening: : No symptoms or risks identified at this time. ROS: 18:30 Eyes: Negative for injury, pain, redness, and discharge, ENT: Negative for injury, snw pain, and discharge, Neck: Negative for injury, pain, and swelling, Cardiovascular: Negative for chest pain, palpitations, and edema. 18:30 ENT: Negative for injury, pain, and discharge, + congestion and swollen nasal passages Abdomen/GI: Negative for abdominal pain, nausea, vomiting, diarrhea, and constipation, Back: Negative for injury and pain, : Negative for injury, bleeding, discharge, and swelling, MS/Extremity: Negative for injury and deformity, Skin: Negative for injury, rash, and discoloration, Neuro: Negative for headache, weakness, numbness, tingling, and seizure, Psych: Negative for depression, anxiety, suicide ideation, homicidal ideation, and hallucinations. 18:30 Constitutional: Positive for body aches, fatigue, fever, malaise. 18:30 Respiratory: Positive for cough. Exam: 18:29 Head/Face: Normocephalic, atraumatic. Eyes: Pupils equal round and reactive to light, snw extra-ocular motions intact. Lids and lashes normal. Conjunctiva and sclera are non-icteric and not injected. Cornea within normal limits. Periorbital areas with no swelling, redness, or edema. 18:29 Neck: Trachea midline, no thyromegaly or masses palpated, and no cervical lymphadenopathy. Supple, full range of motion without nuchal rigidity, or vertebral point tenderness. No Meningismus. Chest/axilla: Normal chest wall appearance and motion. Nontender with no deformity. No lesions are appreciated. 18:29 Abdomen/GI: Soft, non-tender, with normal bowel sounds. No distension or tympany. No guarding or rebound. No evidence of tenderness throughout. Back: No spinal tenderness. No costovertebral tenderness. Full range of motion. Skin: Warm, dry with normal turgor. Normal color with no rashes, no lesions, and no evidence of cellulitis. MS/ Extremity: Pulses equal, no cyanosis. Neurovascular intact. Full, normal range of motion. Neuro: Awake and alert, GCS 15, oriented to person, place, time, and situation. Cranial nerves II-XII grossly intact. Motor strength 5/5 in all extremities. Sensory grossly intact. Cerebellar exam normal. Normal gait. 18:29 Constitutional: The patient appears awake, frail, restless, uncomfortable. 18:29 ENT: TM's: are normal, Nose: Nasal mucosa: edematous, Mouth: is normal, Posterior pharynx: is normal, Dental exam: normal, Voice: is hoarse. 18:29 Cardiovascular: Rate: normal, Rhythm: irregularly irregular, Pulses: no pulse deficits are appreciated, Heart sounds: murmur, systolic, grade 2 over 6, JVD: is not appreciated. 18:29 Respiratory: the patient does not display signs of respiratory distress, Respirations: shallow respirations, Breath sounds: + upper airway congestion. Vital Signs: 18:20 BP 214 / 58; Pulse 69; Resp 18; Temp 98.0; Pulse Ox 97% on R/A; la1 19:20 BP 192 / 49; Pulse 55; Resp 16; Pulse Ox 100% on R/A; aj1 20:14 BP 208 / 62; Pulse 60; Resp 18; Pulse Ox 99% on R/A; aj1 21:30 BP 175 / 65; Pulse 58; Resp 18; Pulse Ox 97% on R/A; aj1 MDM: 18:25 Patient medically screened. snw 21:07 Data reviewed: vital signs, nurses notes. Data interpreted: Pulse oximetry: on room air snw is 99 %. Interpretation: normal. Counseling: I had a detailed discussion with the patient and/or guardian regarding: the historical points, exam findings, and any diagnostic results supporting the discharge/admit diagnosis, lab results, radiology results, the need for outpatient follow up, to return to the emergency department if symptoms worsen or persist or if there are any questions or concerns that arise at home. Special discussion: Based on the history and exam findings, there is no indication for further emergent testing or inpatient evaluation. I discussed with the patient/guardian the need to see the primary care provider for further evaluation of the symptoms. 08/20 18:24 Order name: Flu; Complete Time: 19:05 snw 08/20 19:53 Order name: Urine Culture snw 08/20 18:24 Order name: Chest Single View XRAY; Complete Time: 19:05 snw 08/20 20:59 Order name: Urine Dipstick--Ancillary (enter results) ar5 08/20 19:08 Order name: Misc. Order: saline neb; Complete Time: 19:17 snw 08/20 19:16 Order name: Recheck B/P; Complete Time: 19:21 snw Administered Medications: 20:24 Drug: carvedilol 25 mg Route: PO; aj1 21:57 Follow up: Response: No adverse reaction aj1 21:30 Drug: Rocephin (cefTRIAXone) 1 grams Route: IM; Site: right gluteus; aj1 21:57 Follow up: Response: No adverse reaction aj1 Disposition: 08/20/18 21:06 Discharged to Home. Impression: Acute upper respiratory infection, unspecified, Urinary tract infection, site not specified. - Condition is Stable. - Discharge Instructions: Hypertension, Upper Respiratory Infection, Adult, Urinary Tract Infection, Adult, Cool Mist Vaporizer, Rehydration, Elderly. - Prescriptions for Flonase Allergy Relief 50 mcg/actuation Nasal spray,suspension - inhale 2 spray by INTRANASAL route once daily; 1 Cartridge. Augmentin 875- 125 mg Oral Tablet - take 1 tablet by ORAL route every 12 hours for 10 days; 20 tablet. Fluconazole 150 mg Oral Tablet - take 1 tablet by ORAL route once wkly; 2 tablet. - Medication Reconciliation Form, Thank You Letter, Antibiotic Education, Prescription Opioid Use form. - Follow up: Private Physician; When: 2 - 3 days; Reason: Recheck today's complaints, Continuance of care, Re-evaluation by your physician. Follow up: Emergency Department; When: As needed; Reason: Worsening of condition. Addendum: 08/22/2018 19:59 Co-signature as Attending Physician, Chris Hammond MD. r n Signatures: Dispatcher [employer] EDMS Rebecca Lal RN RN aj1 Bessie Maynard, MIDDLE SCHOOL COUNSELOR-C MIDDLE SCHOOL COUNSELOR-Csnw Chris Hammond MD MD rn Attema, Lee RN RN la1 Corrections: (The following items were deleted from the chart) 08/20 22:01 21:06 08/20/2018 21:06 Discharged to Home. Impression: Acute upper respiratory aj1 infection, unspecified; Urinary tract infection, site not specified. Condition is Stable. Forms are Medication Reconciliation Form, Thank You Letter, Antibiotic Education, Prescription Opioid Use. Follow up: Private Physician; When: 2 - 3 days; Reason: Recheck today's complaints, Continuance of care, Re-evaluation by your physician. Follow up: Emergency Department; When: As needed; Reason: Worsening of condition. snw
[2018-08-20] MEDS ORDERED: CEFTRIAXONE 1000 MG/VIAL ONE (21:30)
[2018-08-20] MEDS ORDERED: LIDOCAINE 1% MPF 2 ML AMPULE ONE (21:30)
[2018-08-20 22:06] VITALS: TEMP 98
[2018-08-20 22:11] VITALS: BP 175/65; O2SAT 97
[2018-08-20 22:56] LABS: Urine Blood NEGATIVE (NEG); Urine Glucose NEGATIVE (NEG); Urine pH 7.5 (5.0-7.0)
[2018-08-20 22:57] LABS: Urine Protein NEGATIVE (NEG)
--- NOTE | 2018-08-21 20:52 | EKG ---
Test Date: 2018-08-20 Test Time: 18:28:46 Automotive Services Manager: [place] MEASUREMENT RESULTS: Intervals: Rate: 57 IA: QRSD: 100 QT: 408 QTc: 397 Porter: P: IA: QRS: 11 T: 91 INTERPRETIVE STATEMENTS: Atrial fibrillation with slow ventricular response Nonspecific ST and T wave abnormality Abnormal ECG Compared to ECG 11/19/2017 18:03:39 Myocardial infarct finding no longer present Possible ischemia no longer present ST (T wave) deviation still present Electronically Signed On 08-21-18 20:48:18 PLATFORM ENGINEER by Jass Lance
== END 2018-08-20 22:01 | disposition home or self-care (01) ==
LOC: ER 18:04
DX: J06.9 Acute upper respiratory infection, unspecified (principal); N39.0 Urinary tract infection, site not specified; I10 Essential (primary) hypertension; Z88.5 Allergy status to narcotic agent; Z88.6 Allergy status to analgesic agent; Z88.8 Allergy status to other drugs, medicaments and biological substances; Z91.041 Radiographic dye allergy status
CPT/HCPCS: 71045; 81003; 87088; 87804 ×2; 93005; 96372; 99284; J2001; 87086

== ENCOUNTER 2018-11-20 16:03 | Emergency (ER) | payer OTHER ==
--- OUTSIDE RECORDS SUMMARY | 2018-11-20 16:08 | XMS REPORT | Clinical Summary ---
:1935 Author Organization [facility] Address [address] [place] [address] Care Team Providers Name Role Phone Unavailable [...] CRNA 11/19/2017 - Hospital Encounter General Internal [facility] Chronic atrial fibrillation (HCC) (Primary Dx); 11/22/2017 Medicine Maria Teresa Montes Essential hypertension; MD Jesica Expressive aphasia; Svetlana Edwards Hyponatremia; Magda Hathaway, Transient cerebral ischemia, unspecified type; Type 2 diabetes mellitus without complication, without long-term current use of insulin (HCC); Yana Charles Bilateral carotid artery stenosis MD Daisy Paz, Otoniel Randhawa MD after 11/19/2017 Social History Tobacco Use Types Packs/Day Years [...] procedure are in the results section. after 11/19/2017 Results RHYTHM STRIP - SCAN (11/24/2017 10:30 AM CDT) Narrative Performed At [facility] cerebral 4 vessel angiogram (11/22/2017 11:25 AM CDT) Specimen Narrative Performed At FINAL REPORT [facility] November 22, 2017 CLINICAL HISTORY: 82 years [...] guidance and strict sterile technique a 4 Tongan femoral sheath was inserted into the right common femoral artery. Through the sheath a 4 Tongan vertebral catheter was then advanced over the [...] MD Report Verified Date/Time:11/22/2017 11:37:47 Reading Location: [facility] Y018 Neuro Angio Reading Room Procedure [...] guidance and strict sterile technique a 4 Tongan femoral sheath was inserted into the right common femoral artery. Through the sheath a 4 Tongan vertebral catheter was then advanced over the [...] Report Verified Date/Time: 11/22/2017 11:37:47 Reading [facility] Performing Organization Address City/State/Zipcode Phone Number [employer] POC-Glucose meter (11/22/2017 7:28 AM CDT)Only the most recent of11 resultswithin the time period is included. POC-Glucose Meter 149 (H)Comment: TESTED AT 70 - 110 mg/dL [address] [address] Specimen Blood Performing Organization Address City/State/Zipcode Phone Number [address] [address] CENTER PT/aPTT (11/22/2017 5:44 AM CDT) Protime 15.5 (H) 11.7 - 14.7 seconds [facility] INR 1.2 <=5.9 [facility] PTT 35.9 22.5 - 36.0 seconds [facility] Specimen Blood Narrative Performed At [facility] RECOMMENDED COUMADIN/WARFARIN INR THERAPY RANGES STANDARD DOSE: 2.0 - 3.0 Includes: PROPHYLAXIS for venous thrombosis, systemic embolization; TREATMENT for venous thrombosis and/or pulmonary embolus. HIGH RISK: Target INR is 2.5-3.5 for patients with mechanical heart valves. Performing Organization Address City/State/[facility] Phone Number [address] [phone] CENTER Magnesium (11/22/2017 5:44 AM CDT)Only the most recent of3 resultswithin the time period is included. Magnesium 2.0 1.6 - 2.6 mg/dL [facility] Specimen Blood Performing Organization Address City/[facility] Phone Number [address] [address] [phone] [place] Basic metabolic panel (11/22/2017 5:44 AM CDT)Only the most recent of3 resultswithin the time period is included. Sodium 133 (L) 136 - 145 meq/L [facility] Potassium 4.4 3.5 - 5.1 meq/L [facility] Chloride 99 98 - 107 meq/L [facility] CO2 25 22 - 29 meq/L [facility] BUN 11 7 - 21 mg/dL [facility] Creatinine 0.65 0.57 - 1.25 mg/dL [facility] Glucose 162 (H) 70 - 105 mg/dL [facility] Calcium 9.5 8.4 - 10.2 mg/dL [facility] EGFR 87Comment: ESTIMATED GFR IS mL/min/1.73 sq m [facility] NOT ACCURATE CREATININE [facility] CENTER CLEARANCE IN PREDICTING GLOMERULAR FILTRATION RATE. ESTIMATED GFR IS NOT APPLICABLE FOR DIALYSIS PATIENTS. Specimen Blood Performing Organization Address City/State/Zipcode Phone Number [facility] [address] [place] [address] [phone] CENTER ECHOCARDIOGRAM REPORT - SCAN (11/21/2017 5:50 PM CDT) Narrative Performed At 2D Echo W/Doppler(CW/PW/Color) (11/21/2017 2:36 PM CDT) Ejection Fraction [facility] ECHO [facility] Specimen Narrative Performed At Transthoracic Echocardiography Report (TTE) [facility] ECHO [facility] Demographics Patient Name Kavya LARAte of Study11/21/2017 M [id number] Gender Female Visit Number [id number] Race [id number] Number Date of Birth1935 Referring PhysicianYana Charles Age82 year(s) SonLaura Crawford [facility] AnalystAriadna Interpreting Slava Burrows PhysicianMD Procedure Type [...] chamber size (by vol index) is small. Dndrpcbk-yq-rnrxik concentric LV hypertrophy. All of the LV [...] chamber size (by vol index) is small. Dgfrdilr-de-tcnhsb concentric LV hy pertrophy. All of the [...] Aortic Valve Mild AoV cusp thickening. Mi rv-ht-cujhiivh AoV cusp calcification. Mi ld aortic stenosis. 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 Tnmvecgi-kz-bgqqer concentric LV hypertrophy. All of the LV [...] chamber size (by vol index) is small. Kdzgppda-yc-jjzsge concentric LV hypertrophy. All of the LV [...] . Aortic Valve Mild AoV cusp thickening. Lkes-jy-gzvsyomt AoV cusp calcification. Mild aortic stenosis. Mitral [...] mmHg Performing Organization Address City/State/Zipcode Phone Number [facility] ECHO HEARTLAB MKCKESSON [facility] CTA carotid (11/21/2017 1:55 PM CDT) Specimen Narrative Performed At FINAL REPORT [employer] CT angiogram of the upper chest, neck, [...] the left ICA terminus. There is also irsk-bf-deyqchen multifocal narrowing of the right carotid siphon. [...] MD Report Verified Date/Time:11/21/2017 14:54:26 Reading Location: [facility] Radiology Reading Room Procedure Note Interface, External [...] the left ICA terminus. There is also lrlz-hy-gechjfvx multifocal narrowing of the right carotid siphon. [...] Report Verified Date/Time: 11/21/2017 14:54:26 Reading Location: [facility] Radiology Reading Room Performing Organization Address City/State/Zipcode Phone Number [employer] CTA brain (11/21/2017 1:55 PM CDT) Specimen Narrative Performed At FINAL REPORT [employer] CT angiogram of the upper chest, neck, [...] the left ICA terminus. There is also urwh-hi-jjylazuh multifocal narrowing of the right carotid siphon. [...] MD Report Verified Date/Time:11/21/2017 14:54:26 Reading Location: [facility] Radiology Reading Room Procedure Note Interface, External [...] the left ICA terminus. There is also awal-lg-lzvpbswo multifocal narrowing of the right carotid siphon. [...] Report Verified Date/Time: 11/21/2017 14:54:26 Reading Location: [facility] Radiology Reading Room Performing Organization Address City/State/Zipcode Phone Number [facility] TSH/Free T4 If Indicated (11/20/2017 9:14 PM CDT)Only the most recent of2 resultswithin the time period is included. TSH 4.66 0.35 - 4.94 uIU/mL [facility] Specimen Blood Performing Organization Address City/[facility]/Zipcode Phone Number [facility] [address] [place] [phone] [place] Lipid panel (11/20/2017 9:14 PM CDT) Triglycerides 70 mg/dL [facility] Cholesterol 101 mg/dL [facility] HDL 39 mg/dL [facility] LDL Calculated 48 mg/dL [facility] Specimen Blood Narrative Performed At [facility] Triglyceride Reference Range: Low Risk <150 [id number] High Risk 200-499 Very High Risk>=500 Cholesterol Reference Range: Low Risk <200 Ietgohgbgm001-501 High Risk>240 HDL Cholesterol Reference Range: Low Risk >=60 High Risk <40 LDL Cholesterol Reference Range: Optimal<100 Near Ralwirr043-532 Snmpjndqjz524-929 Fqfr345-675 Very High >=190 Performing Organization Address City/[facility] Phone Number [address] [address] [phone] [place] MR brain without IV contrast (11/20/2017 10:36 AM CDT) Specimen Narrative Performed At FINAL REPORT [facility] MRI Brain without contrast Clinical History: CVA [...] MD Report Verified Date/Time:11/20/2017 11:05:05 Reading Location: [address] Neuro Reading Room Procedure Note Interface, [...] Report Verified Date/Time: 11/20/2017 11:05:05 Reading Location: [address] Neuro Reading Room Performing Organization Address City/State/Zipcode Phone Number [employer] MRA neck without IV contrast (11/20/2017 10:36 AM CDT) Specimen Narrative Performed At FINAL REPORT [employer] MRA Head and Neck CLINICAL HISTORY: CVA TECHNIQUE: MRA of the head utilizing 3-D jjcr-yy-jkkxbv technique, with 3-D reconstructions. MRA of the neck utilizing 2-D and 3-D xkwg-jv-xjsvdo technique, with 3-D reconstructions. COMPARISON: None FINDINGS: [...] There is no other evidence for a [place] proximal branch vessel occlusion. There [...] MD Report Verified Date/Time:11/20/2017 11:33:14 Reading Location: [address] Neuro Reading Room Procedure Note Interface, External Ris In - 11/20/2017 11:35 AM CDT FINAL REPORT MRA Head and Neck CLINICAL HISTORY: CVA TECHNIQUE: MRA of the head utilizing 3-D trqn-vb-jxmdew technique, with 3-D reconstructions. MRA of the neck utilizing 2-D and 3-D ipst-an-sttuiw technique, with 3-D reconstructions. COMPARISON: None FINDINGS: [...] There is no other evidence for a [place] proximal branch vessel occlusion. There [...] Report Verified Date/Time: 11/20/2017 11:33:14 Reading Location: [address] Neuro Reading Room Performing Organization Address City/State/Zipcode Phone Number [employer] MRA head without IV contrast (11/20/2017 10:36 AM CDT) Specimen Narrative Performed At FINAL REPORT [employer] [facility]IS MRA Head and Neck CLINICAL HISTORY: CVA TECHNIQUE: MRA of the head utilizing 3-D urrx-xm-vtdsgn technique, with 3-D reconstructions. MRA of the neck utilizing 2-D and 3-D ykvz-cv-kpulua technique, with 3-D reconstructions. COMPARISON: None FINDINGS: [...] There is no other evidence for a [place] proximal branch vessel occlusion. There [...] MD Report Verified Date/Time:11/20/2017 11:33:14 Reading Location: [address] Neuro Reading Room Procedure Note Interface, External Ris In - 11/20/2017 11:35 AM CDT FINAL REPORT MRA Head and Neck CLINICAL HISTORY: CVA TECHNIQUE: MRA of the head utilizing 3-D fgzp-vk-joencm technique, with 3-D reconstructions. MRA of the neck utilizing 2-D and 3-D hhqa-wv-zynull technique, with 3-D reconstructions. COMPARISON: None FINDINGS: [...] There is no other evidence for a [place] proximal branch vessel occlusion. There [...] Report Verified Date/Time: 11/20/2017 11:33:14 Reading Location: [address] Neuro Reading Room Performing Organization Address City/State/Zipcode Phone Number [facility] CBC with platelet count + automated diff (11/20/2017 5:27 AM CDT) WBC 8.3 3.5 - 10.5 K/L [facility] RBC 4.11 3.93 - 5.22 M/L [facility] Hemoglobin 13.4 11.2 - 15.7 GM/DL [facility] Hematocrit 39.7 34.1 - 44.9 % [facility] MCV 96.6 (H) 79.4 - 94.8 fL [facility] MCH 32.6 (H) 25.6 - 32.2 pg [facility] MCHC 33.8 32.2 - 35.5 GM/DL [facility] RDW 12.1 11.7 - 14.4 % [facility] Platelets 209 150 - 450 K/CU MM [facility] MPV 9.7 9.4 - 12.3 fL [facility] nRBC 0 0 - 0 /100 WBC [facility] % Neutros 49 % [facility] % Lymphs 35 % [facility] % Monos 12 % [facility] % Eos 4 % [facility] % Baso 1 % [facility] # Neutros 4.02 1.56 - 6.13 K/L [facility] # Lymphs 2.89 1.18 - 3.74 K/L [facility] # Monos 0.95 (H) 0.24 - 0.36 K/L [facility] # Eos 0.35 0.04 - 0.36 K/L [facility] # Baso 0.04 0.01 - 0.08 K/L [facility] Immature Granulocytes-Relative 0 0 - 1 % [facility] Specimen Blood Performing Organization Address City/[facility] Phone Number [facility] [address] [place] [phone] CENTER Hemoglobin A1c (11/20/2017 5:27 AM CDT) Hemoglobin A1C 6.1 4.3 - 6.1 % [facility] Specimen Blood Performing Organization Address [facility] Phone Number [address] [address] [place] Vitamin B12 (11/20/2017 5:27 AM CDT) Vitamin B12 857 (H) 213 - 816 pg/mL [facility] Specimen Blood Performing Organization Address City/[facility] Phone Number [facility] [address] [place] [phone] CENTER after 11/19/2017 Insurance Payer Benefit Plan / Group Subscriber ID Type Phone Address [employer] xxxxxxxxx Maps Contracted Advance Directives For more information, please contact:[address] [phone] Code Status Date Activated Date Inactivated Comments Partial Code 11/19/2017 10:17 PM 11/22/2017 6:56 PM This code status was determined by: Patient Drug Protocol After Arrest Occurs? No Mechanical Ventilation with Intubation? No Bag/Mask? No Internal/External Pacemaker? No Transfer to Critical Care? No Chest Compressions? No Defibrillation/Cardioversion? No
--- OUTSIDE RECORDS SUMMARY | 2018-11-20 16:09 | XMS REPORT ---
[...] Status Dosage System Date Date Vitamin D3 [facility] 47735824704 1000 UNIT Active 1 capsule Orally Once a day HydrALAZINE HCl [facility] 35684958589 100 MG Orally December 05, Active as Three times a 2018 day Omeprazole [facility] 15410085208 40 MG orally Active 1 EACH daily in AM ONCE A DAY Plavix ND 73177629577 75 MG Orally Active 1 tablet Once a day Cyanocobalamin [facility] [address]-74 1000 MCG/15ML Active 15 ml Orally Once a day Valsartan ND 14171469769 160 MG Orally Active 1 tablet Once a day Verapamil HCl ER ND 51428913436 240 MG Orally Active 1 capsule Once a day Coreg [facility] 91243260517 25 MG Orally Active not defined HydrALAZINE HCl [facility] 60523564501 50 MG Orally Active 1 tablet Four times a with food day Eliquis [facility] 36121416854 5 MG Orally Active 1 tablet twice a day Myrbetriq [facility] 31738958812 25 MG Orally Inactive 1 tablet Once a day Metformin HCl [facility] 29364514058 500 MG Orally Active 1 tablet Twice a day with meals Toviaz [facility] 40447391193 8 MG Orally Active 1 tablet Once a day Crestor [facility] 00091815419 40 MG Active 1 EACH ONCE A DAY Results No Known Results Summary Purpose eClinicalWorks Submission
--- OUTSIDE RECORDS SUMMARY | 2018-11-20 16:09 | XMS REPORT ---
:1935 [facility] Address [address] [place] [address] [address]. [address] [place] [address] Care Team Providers Name Role Phone DORY MEJIA Unavailable Unavailable Problems This patient has no known problems. Allergies, Adverse Reactions, Alerts This patient has no known allergies or adverse reactions. Medications This patient has no known medications. Results Test Description Test Time Test Comments Text Results Atomic Results Result Comments NV, ANGIOGRAM, 2017-11-22 11:37:00 Reason for FINAL REPORT PATIENT ID: CEREBRAL exam:->TIAs [id number] November 22, 2017 CLINICAL HISTORY: 82 years [...] guidance and strict sterile technique a 4 Ghanaian femoral sheath was inserted into the right common femoral artery. Through the sheath a 4 Ghanaian vertebral catheter was then advanced over the [...] MDReport Verified Date/Time: 11/22/2017 11:37:47 Reading Location: [facility] Y018 Neuro Angio Reading Room -GLUCOSE METER 2017-11-22 07:43:00 Test Item Value Reference Range Comments POC-GLUCOSE METER (BEAKER) (test 149 mg/dL 70-110 TESTED AT [facility] [address] [facility] mhxl=4239) [facility] [address] [id number] 06:46:00 Test Item Value Reference Range Comments MAGNESIUM (BEAKER) (test aubz=822) 2.0 mg/dL 1.6-2.6 BASIC METABOLIC [id number] 06:46:00 Test Item Value Reference Range Comments SODIUM (BEAKER) (test 133 meq/L 136-145 tpsz=807) POTASSIUM (BEAKER) (test 4.4 meq/L 3.5-5.1 qpqz=559) CHLORIDE (BEAKER) (test 99 meq/L 98-107 rkqh=025) CO2 (BEAKER) (test 25 meq/L 22-29 xofi=033) BLOOD UREA NITROGEN 11 mg/dL 7-21 (BEAKER) (test pzag=021) CREATININE (BEAKER) (test 0.65 mg/dL 0.57-1.25 gcob=024) GLUCOSE RANDOM (BEAKER) 162 mg/dL 70-105 (test wlne=617) CALCIUM (BEAKER) (test 9.5 mg/dL 8.4-10.2 yuxg=326) EGFR (BEAKER) (test 87 mL/min/1.73 sq m ESTIMATED GFR IS NOT bkqe=9188) ACCURATE CREATININE CLEARANCE IN PREDICTING GLOMERULAR FILTRATION RATE. ESTIMATED GFR IS NOT APPLICABLE FOR DIALYSIS PATIENTS. [id number] 06:33:00 Test Item Value Reference Range Comments PROTIME (BEAKER) (test xmcn=349) 15.5 seconds 11.7-14.7 INR (BEAKER) (test esvv=627) 1.2 <=5.9 PARTIAL THROMBOPLASTIN TIME (BEAKER) (test 35.9 seconds 22.5-36.0 tpsr=964) RECOMMENDED COUMADIN/WARFARIN INR THERAPY RANGESSTANDARD DOSE: 2.0 - 3.0 Includes: PROPHYLAXIS forvenous thrombosis, systemic embolization; TREATMENT for venous thrombosis and/or pulmonary embolus.HIGH RISK: Target INR is 2.5-3.5 for patients with mechanical heart valves.POCT-GLUCOSE [id number] 06:22:00 Test Item Value Reference Range Comments POC-GLUCOSE METER (BEAKER) 161 mg/dL 70-110 TESTED AT [facility] [address] [facility] (test picq=9655) [facility] [address] POCT-GLUCOSE [id number] 02:08:00 Test Item Value Reference Range Comments POC-GLUCOSE METER (BEAKER) 182 mg/dL 70-110 TESTED AT [facility] [address] [facility] (test xkbb=1483) [facility] [address] POCT-GLUCOSE [id number] 19:30:00 Test Item Value Reference Range Comments POC-GLUCOSE METER (BEAKER) 146 mg/dL 70-110 TESTED AT [facility] [address] [facility] (test fbhg=6373) [facility] [address] CT, CAROTID, [id number] 14:54:00Please include aortaFINAL REPORT CT angiogram of [...] the left ICA terminus. There is also stby-hv-ywthxwod multifocal narrowing of the right carotid siphon. [...] of the right carotid siphon. Signed: [facility] Verified Date/Time: 11/21/2017 14:54:26 Reading Location: [facility] Radiology Reading Room [facility] [id number] 14:54:00FINAL REPORT CT angiogram of the upper [...] the left ICA terminus. There is also ltwc-pd-rpynaods multifocal narrowing of the right carotid siphon. [...] Mcdaniels Verified Date/Time: 11/21/2017 14:54:26 Reading Location: [facility] Radiology Reading Room POCT-GLUCOSE [id number] 11:50:00 Test Item Value Reference Range Comments POC-GLUCOSE METER (BEAKER) 153 mg/dL 70-110 TESTED AT [facility] [address] [facility] (test auzf=0357) [facility] [address] POCT-GLUCOSE [id number] 08:08:00 Test Item Value Reference Range Comments POC-GLUCOSE METER (BEAKER) 125 mg/dL 70-110 TESTED AT [facility] [address] [facility] (test atun=8925) [facility] [address] [id number] 06:43:00 Test Item Value Reference Range Comments MAGNESIUM (BEAKER) (test dkvl=089) 2.1 mg/dL 1.6-2.6 BASIC METABOLIC [id number] 06:43:00 Test Item Value Reference Range Comments SODIUM (BEAKER) (test 136 meq/L 136-145 zdvy=334) POTASSIUM (BEAKER) (test 4.0 meq/L 3.5-5.1 dqkm=864) CHLORIDE (BEAKER) (test 101 meq/L 98-107 xxpy=899) CO2 (BEAKER) (test 27 meq/L 22-29 jdjt=731) BLOOD UREA NITROGEN 12 mg/dL 7-21 (BEAKER) (test iqmn=122) CREATININE (BEAKER) (test 0.68 mg/dL 0.57-1.25 vliz=240) GLUCOSE RANDOM (BEAKER) 122 mg/dL 70-105 (test gvki=650) CALCIUM (BEAKER) (test 9.5 mg/dL 8.4-10.2 zpyo=465) EGFR (BEAKER) (test 83 mL/min/1.73 sq m ESTIMATED GFR IS NOT tfoq=9067) ACCURATE CREATININE CLEARANCE IN PREDICTING GLOMERULAR FILTRATION RATE. ESTIMATED GFR IS NOT APPLICABLE FOR DIALYSIS PATIENTS. TSH/FREE T4 IF [id number] 22:12:00 Test Item Value Reference Range Comments THYROID STIMULATING HORMONE (BEAKER) (test 4.66 uIU/mL 0.35-4.94 nzoz=778) [id number] 21:54:00 Test Item Value Reference Range Comments MAGNESIUM (BEAKER) (test lsmq=807) 2.0 mg/dL 1.6-2.6 BASIC METABOLIC [id number] 21:54:00 Test Item Value Reference Range Comments SODIUM (BEAKER) (test 134 meq/L 136-145 nsgn=498) POTASSIUM (BEAKER) (test 4.1 meq/L 3.5-5.1 wczb=631) CHLORIDE (BEAKER) (test 101 meq/L 98-107 pheu=128) CO2 (BEAKER) (test 24 meq/L 22-29 gdqk=840) BLOOD UREA NITROGEN 11 mg/dL 7-21 (BEAKER) (test xikl=327) CREATININE (BEAKER) (test 0.65 mg/dL 0.57-1.25 zgjd=104) GLUCOSE RANDOM (BEAKER) 126 mg/dL 70-105 (test cdnd=485) CALCIUM (BEAKER) (test 9.5 mg/dL 8.4-10.2 uxtq=526) EGFR (BEAKER) (test 87 mL/min/1.73 sq m ESTIMATED GFR IS NOT yius=0370) ACCURATE CREATININE CLEARANCE IN PREDICTING GLOMERULAR FILTRATION RATE. ESTIMATED GFR IS NOT APPLICABLE FOR DIALYSIS PATIENTS. LIPID [id number] 21:54:00 Test Item Value Reference Range Comments TRIGLYCERIDES (BEAKER) (test rojr=226) 70 mg/dL CHOLESTEROL (BEAKER) (test jmoa=818) 101 mg/dL HDL CHOLESTEROL (BEAKER) (test zgay=802) 39 mg/dL LDL CHOLESTEROL CALCULATED (BEAKER) (test 48 mg/dL vuaq=887) Triglyceride Reference Range: Low Risk <150 Borderline 150- 199 High Risk 200-499 Very High Risk >=500Cholesterol Reference Range: Low Risk <200 Borderline 200-239 High Risk > 240HDL Cholesterol Reference Range: Low Risk >=60 High Risk <40LDL Cholesterol Reference Range: Optimal <100 Near Optimal 100-129 Borderline 130-159 High 160-189 Very High >=190POCT-GLUCOSE [id number] 21:35:00 Test Item Value Reference Range Comments POC-GLUCOSE METER (BEAKER) 128 mg/dL 70-110 TESTED AT [address] (test dguv=1359) [facility] [address] POCT-GLUCOSE [id number] 17:55:00 Test Item Value Reference Range Comments POC-GLUCOSE METER (BEAKER) 113 mg/dL 70-110 TESTED AT [address] (test nvxf=6440) [facility] [address] POCT-GLUCOSE [id number] 12:32:00 Test Item Value Reference Range Comments POC-GLUCOSE METER (JANNETH) 120 mg/dL 70-110 TESTED [facility] [place] [address] [facility] qjrv[facility]5974[facility] [address] MR, MRA, BRAIN, WITHOUT [id number] 11:33:00Reason for exam:-> Ischemic Stroke EvaluationFINAL REPORT MRA Head and Neck CLINICAL HISTORY: CVA TECHNIQUE: MRA of the head utilizing 3-D liby-gv-xdqldp technique, with 3-D reconstructions. MRA of the [...] There is no other evidence for a lower elwh[place] of [place] proximal branch vessel occlusion. There [...] Verified Date/Time: 11/20/2017 11:33:14 Reading Location : [facility] C013V Neuro Reading Room MR, MRA, NECK, WITHOUT IV [id number] 11:33: 00Reason for exam:->Ischemic Stroke EvaluationFINAL REPORT MRA Head and Neck CLINICAL HISTORY: CVA TECHNIQUE: MRA of the head utilizing 3-D sgar-ny-hncpow technique, with 3-D reconstructions. MRA of the neck utilizing 2-D and 3-D nnyh-xp-ibgmzs technique, with 3-D reconstructions. COMPARISON: None FINDINGS: [...] There is no other evidence for a lower el[place] of [place] proximal branch vessel occlusion. There [...] Verified Date/Time: 11/20/2017 11 :33:14 Reading Location: [address] Neuro Reading Room MR, BRAIN, WITHOUT [id number] 11:05:00Reason for exam:->Ischemic Stroke EvaluationFINAL REPORT MRI [...] MDReport Verified Date/Time: 11/20/2017 11:05:05 Reading Location: [address] Neuro Reading Room HEMOGLOBIN [id number] 09:08:00 Test Item Value Reference Range Comments HEMOGLOBIN A1C (BEAKER) (test vfdj=969) 6.1 % 4.3-6.1 POCT-GLUCOSE [id number] 08:27:00 Test Item Value Reference Range Comments POC-GLUCOSE METER ([facility]) 125 mg/dL 70-110 TESTED AT [facility] [address] [facility] (test kzua=0076) [facility] [address] TSH/FREE T4 IF [id number] 07:47:00 Test Item Value Reference Range Comments THYROID STIMULATING HORMONE (BEAKER) (test 5.97 uIU/mL 0.35-4.94 jmst=780) VITAMIN [id number] 07:44:00 Test Item Value Reference Range Comments VITAMIN B12 (BEAKER) (test vnlc=515) 857 pg/mL 213-816 CBC W/PLT COUNT & AUTO [id number] 06:47:00 Test Item Value Reference Range Comments WHITE BLOOD CELL COUNT (BEAKER) (test dqzz=573) 8.3 K/ L 3.5-10.5 RED BLOOD CELL COUNT (BEAKER) (test xtbf=491) 4.11 M/ L 3.93-5.22 HEMOGLOBIN (BEAKER) (test gamf=824) 13.4 GM/DL 11.2-15.7 HEMATOCRIT (BEAKER) (test stxt=791) 39.7 % 34.1-44.9 MEAN CORPUSCULAR VOLUME (BEAKER) (test pbwv=527) 96.6 fL 79.4-94.8 MEAN CORPUSCULAR HEMOGLOBIN (BEAKER) (test 32.6 pg 25.6-32.2 jfoz=001) MEAN CORPUSCULAR HEMOGLOBIN CONC (BEAKER) (test 33.8 GM/DL 32.2-35.5 dzrq=965) RED CELL DISTRIBUTION WIDTH (BEAKER) (test 12.1 % 11.7-14.4 ykgs=216) PLATELET COUNT (BEAKER) (test vcnd=069) 209 K/CU MM 150-450 MEAN PLATELET VOLUME (BEAKER) (test ctwd=276) 9.7 fL 9.4-12.3 NUCLEATED RED BLOOD CELLS (BEAKER) (test 0 /100 WBC 0-0 ighq=495) NEUTROPHILS RELATIVE PERCENT (BEAKER) (test 49 % xxqn=919) LYMPHOCYTES RELATIVE PERCENT (BEAKER) (test 35 % fzvh=519) MONOCYTES RELATIVE PERCENT (BEAKER) (test 12 % esyp=213) EOSINOPHILS RELATIVE PERCENT (BEAKER) (test 4 % flci=532) BASOPHILS RELATIVE PERCENT (BEAKER) (test 1 % cows=893) NEUTROPHILS ABSOLUTE COUNT (BEAKER) (test 4.02 K/ L 1.56-6.13 reey=899) LYMPHOCYTES ABSOLUTE COUNT (BEAKER) (test 2.89 K/ L 1.18-3.74 pfkt=682) MONOCYTES ABSOLUTE COUNT (BEAKER) (test 0.95 K/ L 0.24-0.36 ezfe=182) EOSINOPHILS ABSOLUTE COUNT (BEAKER) (test 0.35 K/ L 0.04-0.36 psmz=817) BASOPHILS ABSOLUTE COUNT (BEAKER) (test 0.04 K/ L 0.01-0.08 zqwv=739) IMMATURE GRANULOCYTES-RELATIVE PERCENT (BEAKER) 0 % 0-1 (test xsoy=9419) POCT-GLUCOSE [id number] 22:09:00 Test Item Value Reference Range Comments POC-GLUCOSE METER (BEAKER) 130 mg/dL 70-110 TESTED AT [facility] [address] [facility] (test cteo=9985) [facility] [address]
--- OUTSIDE RECORDS SUMMARY | 2018-11-20 16:09 | XMS REPORT ---
[...] Dosage System Date Date Verapamil HCl ER [facility] 05860786124 240 MG Orally Active 1 capsule Once a day Bactrim DS [facility] 67209176368 800-160 MG January Active 1 tablet Orally Twice a , 2017 Metformin HCl [facility] 60138317901 500 MG Orally Active 1 tablet Twice a day with meals Valsartan [facility] 65491372702 160 MG Orally Active 1 tablet Once a day Plavix ND 19918275204 75 MG Orally Active 1 tablet Once a day Vitamin D3 ND 19476273526 1000 UNIT Active 1 capsule Orally Once a day Toviaz [facility] 90494971313 8 MG Orally Active 1 tablet Once a day Eliquis [facility] 79563350493 5 MG Orally Active 1 tablet twice a day Crestor [facility] 13762809525 40 MG Active 1 EACH ONCE A DAY HydrALAZINE HCl [facility] 74098685749 50 MG Orally Active 1 tablet Four times a with food day Cyanocobalamin [facility] [address]-82 1000 MCG/15ML Active 15 ml Orally Once a day Omeprazole [facility] 39671427399 40 MG orally Active 1 EACH daily in AM ONCE A DAY HydrALAZINE HCl [facility] 47867887612 100 MG Orally December 05, Active as Three times a 2018 day Coreg [facility] 65800708834 25 MG Orally Active not defined Results No Known Results Summary Purpose eClinicalWorks Submission
--- OUTSIDE RECORDS SUMMARY | 2018-11-20 16:09 | XMS REPORT ---
:1935 Author Organization eClinicalWorks Care Team Providers Name Role Phone Britt, Na Provider Role Unavailable Allergies, Adverse Reactions, Alerts Substance Reaction Event Type PCN yeast infection Drug Allergy Problems Problem Type Condition Code Onset Dates Condition Status Problem Hyperlipidemia E78.5 Active Problem Abnormal mammogram R92.8 Active Problem Chronic a-fib I48.2 Active Problem Hospital discharge follow-up Z09 Active Problem Stenosis of left carotid artery I65.22 Active Problem Chronic fatigue R53.82 Active Problem History of TIA (transient ischemic Z86.73 Active attack) Problem Type 2 diabetes E11.9 Active Problem Atherosclerosis I70.90 Active Problem Other speech disturbance R47.89 Active Problem Recurrent urinary tract infection N39.0 Active Problem Overactive bladder N32.81 Active Assessment Acute cystitis without hematuria N30.00 Active Problem GERD (gastroesophageal reflux K21.9 Active disease) Problem Obesity E66.9 Active Problem Obstructive sleep apnea G47.33 Active Problem Hypertension I10 Active Problem 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 Active Problem Allergic rhinitis J30.9 Active Medications Medication Code Code Instructions Start End Status Dosage System Date Date Macrobid [facility] 98187548528 100 MG Orally Sep 08, Aug Active 1 capsule every 12 hrs 2018 22, with food 2018 HydrALAZINE HCl [facility] 68018749013 100 MG Orally December 05, Active as Three times a 2018 day Cyanocobalamin [facility] [address]-90 1000 MCG/15ML Active 15 ml Orally Once a day Metformin HCl [facility] 23476676668 500 MG Orally Active 1 tablet Twice a day with meals Bactrim DS ND 55872990062 800-160 MG January Active 1 tablet Orally Twice a 30, day 2017 Irbesartan [facility] 15442815707 150 MG Orally Active 1 tablet Once a day Crestor [facility] 23938497691 40 MG Active 1 EACH ONCE A DAY Valsartan [facility] 11566399261 160 MG Orally Active 1 tablet Once a day HydrALAZINE HCl [facility] 17856357461 50 MG Orally Active 1 tablet Four times a with food day Eliquis [facility] 90079861690 5 MG Orally Active 1 tablet twice a day Metformin HCl [facility] 37208735378 500 Active TAKE 1 TABLET BY MOUTH TWICE DAILY Crestor [facility] 18671387085 40 Active 1 EACH ONCE A DAY Coreg [facility] 05999546923 25 MG Orally Active not defined Omeprazole [facility] 69846321846 40 Active 1 EACH ONCE A DAY Toviaz [facility] 84233245944 8 MG Orally Active 1 tablet Once a day Plavix [facility] 02077494573 75 MG Orally Active 1 tablet Once a day Verapamil HCl ER [facility] 49874932216 240 MG Orally Active 1 capsule Once a day Omeprazole [facility] 16110071072 40 MG orally Active 1 EACH daily in AM ONCE A DAY Vitamin D3 [facility] 22426422483 1000 UNIT Active 1 capsule Orally Once a day Results No Known Results Summary Purpose eClinicalWorks Submission
--- OUTSIDE RECORDS SUMMARY | 2018-11-20 16:09 | XMS REPORT ---
:1935 Author Organization eClinicalWorks Care Team Providers Name Role Phone Britt, Na Provider Role Unavailable Allergies, Adverse Reactions, Alerts Substance Reaction Event Type N.K.D.A. Info Not Available Non Drug Allergy Problems Problem Type Condition Code Onset Dates Condition Status Assessment Chronic fatigue R53.82 Active Problem Hypertension I10 Active Assessment Chronic a-fib I48.2 Active Problem Allergic rhinitis J30.9 Active Assessment Obstructive sleep apnea G47.33 Active Problem Hyperlipidemia E78.5 Active Problem Abnormal mammogram R92.8 Active Problem Chronic a-fib I48.2 Active Problem Hospital discharge follow-up Z09 Active Problem Stenosis of left carotid artery I65.22 Active Assessment Hypertension I10 Active Assessment Hyperlipidemia E78.5 Active Problem Chronic fatigue R53.82 Active Assessment Allergic rhinitis J30.9 Active Problem History of TIA (transient ischemic Z86.73 Active attack) Problem Type 2 diabetes E11.9 Active Problem Atherosclerosis I70.90 Active Problem Other speech disturbance R47.89 Active Problem Recurrent urinary tract infection N39.0 Active Problem Overactive bladder N32.81 Active Assessment Type 2 diabetes E11.9 Active Problem GERD (gastroesophageal reflux K21.9 Active disease) Problem Obesity E66.9 Active Problem Obstructive sleep apnea G47.33 Active Problem 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 Active Medications Medication Code Code Instructions Start End Status Dosage System Date Date Omeprazole [facility] 89033952153 40 MG orally Active 1 EACH daily in AM ONCE A DAY HydrALAZINE HCl [facility] 71381563672 50 MG Orally Active 1 tablet Four times a with food day Vitamin D3 [facility] 19381334413 1000 UNIT Active 1 capsule Orally Once a day Cyanocobalamin [facility] [address]-82 1000 MCG/15ML Active 15 ml Orally Once a day Metformin HCl [facility] 02461461458 500 MG Orally Active 1 tablet Twice a day with meals Omeprazole [facility] 45338140943 40 Active 1 EACH ONCE A DAY Coreg [facility] 93966106412 25 MG Orally Active not defined Bactrim DS [facility] 83528799643 800-160 MG January Active 1 tablet Orally Twice a , 2017 Toviaz [facility] 47981898887 8 MG Orally Active 1 tablet Once a day Valsartan [facility] 22859079781 160 MG Orally Active 1 tablet Once a day Verapamil HCl ER [facility] 97927660226 240 MG Orally Active 1 capsule Once a day Eliquis [facility] 65960196120 5 MG Orally Active 1 tablet twice a day Metformin HCl [facility] 66565936529 500 Active TAKE 1 TABLET BY MOUTH TWICE DAILY HydrALAZINE HCl [facility] 92427970410 100 MG Orally December 05, Active as Three times a 2017 day Crestor [facility] 01488100743 40 Active 1 EACH ONCE A DAY Crestor [facility] 89170486874 40 MG Active 1 EACH ONCE A DAY Plavix [facility] 14914316247 75 MG Orally Active 1 tablet Once a day Irbesartan [facility] 01353033407 150 MG Orally Active 1 tablet Once a day Results No Known Results Summary Purpose eClinicalWorks Submission
--- OUTSIDE RECORDS SUMMARY | 2018-11-20 16:09 | XMS REPORT ---
:1935 Author Organization eClinicalWorks Care Team Providers Name Role Phone Britt, Na Provider Role Unavailable Allergies No Known Allergies Problems Problem Type Condition Code Onset Dates [...] N39.0 Active Problem Overactive bladder N32.81 Active Problem GERD (gastroesophageal reflux K21.9 Active disease) Problem Obesity E66.9 Active Problem Obstructive sleep apnea G47.33 Active Problem Hypertension I10 Active Problem 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 Active Problem Allergic rhinitis J30.9 Active Medications Medication Code Code Instructions Start End Status Dosage System Date Date Fluconazole IDC 66865256027 150 MG Orally Sep 15, Active 1 tablet today one tab a week 2018 and may repeat one tab in 1 week if no improvement Results No Known Results Summary Purpose eClinicalWorks Submission
[2018-11-20 17:45] LABS: Absolute Lymphocytes (CBC) 2.5 K/uL (0.7-4.9); Absolute Monocytes 0.6 K/uL (0.1-1.3); Absolute Neutrophil 3.9 K/uL (1.8-8.0); Basophils % 0.7 % (0-1.3); Eosinophils % 1.9 % (0-4.4); Hematocrit 40.8 % (36.0-45.0); MPV 8.3 fL (7.6-11.3); Monocytes % 8.4 % (3.3-12.3); RBC Red Blood Cell Count 4.27 M/uL (3.86-4.86)
[2018-11-20 17:48] LABS: Protime INR 1.15
[2018-11-20 18:05] LABS: ALT/SGPT 27 U/L (12-78); AST/SGOT 18 U/L (15-37); Albumin 3.7 g/dL (3.4-5.0); Alkaline Phosphatase 99 U/L (45-117); BUN Blood Urea Nitrogen 15 mg/dL (7-18); Bicarbonate 28 mmol/L (21-32); Bilirubin Direct 0.1 mg/dL (0-0.2); Bilirubin Total 0.4 mg/dL (0.2-1.0); Creatine Phosphokinase 42 U/L (26-192); Glucose Level 141 mg/dL (74-106); Magnesium 2.2 mg/dL (1.8-2.4); NT PRO-BNP 1611 pg/mL (<450); Potassium 4.2 mmol/L (3.5-5.1); Protein, Total 7.6 g/dL (6.4-8.2); Sodium Level 137 mmol/L (136-145); Troponin (Emerg Dept Use Only) < 0.02 ng/mL (0.0-0.045)
--- NOTE | 2018-11-20 18:54 | RAD REPORT ---
EXAM DESCRIPTION: RAD - Chest Single View - 11/20/2018 6:12 pm CLINICAL HISTORY: Body aches, cough and congestion COMPARISON: July 2018 TECHNIQUE: AP portable chest image was obtained 1807 hours . FINDINGS: No focal mass or consolidation. Lung markings are not substantially different from compari son when adjusting for a more shallow inspiration on the current study. CABG surgical changes again n oted. Heart and vasculature are normal. No measurable pleural effusion and no pneumothorax. No acute bony abnormality seen. No acute aortic findings suspected. IMPRESSION: No acute cardiopulmonary process. Chest is not significantly different from comparison.
[2018-11-20 18:55] LABS: Urine Blood NEGATIVE (NEG); Urine Glucose NEGATIVE (NEG); Urine Protein NEGATIVE (NEG); Urine Specific Gravity 1.015 (1.005-1.030); Urine pH 7.5 (5.0-7.0)
--- NOTE | 2018-11-20 19:26 | ER ---
Nurse's Notes [facility] Name: Radha Lara Age: 83 yrs Sex: Female : 1935 Arrival Date: 11/20/2018 Time: 16:04 Bed 30 Private MD: Elli Britt Diagnosis: Weakness Presentation: 11/20 16:22 Presenting complaint: Patient states: nasal congestion, chest congestion, and body aa5 aches that began this morning. Pt denies cough. Transition of care: patient was not received from another setting of care. Onset of symptoms was October 2018. Risk Assessment: Do you want to hurt yourself or someone else? Patient reports no desire to harm self or others. Initial Sepsis Screen: Does the patient meet any 2 criteria? No. Patient's initial sepsis screen is negative. Does the patient have a suspected source of infection? No. Patient's initial sepsis screen is negative. Care prior to arrival: None. 16:22 Method Of Arrival: Wheelchair aa5 16:22 Acuity: YOLANDE 3 aa5 Historical: - Allergies: 16:24 Aspirin; aa5 16:24 Clonidine; aa5 16:24 Codeine; aa5 16:24 Iodinated Contrast Media - IV Dye; aa5 16:24 Lisinopril; aa5 16:24 Niacin; aa5 16:24 Nitrofurantoin; aa5 16:24 nitrous oxide; aa5 16:24 vicoden; aa5 - Home Meds: 17:58 carvedilol 25 mg Oral tab 1 tab 2 times per day [Active]; cranberry Oral twice a day mg2 [Active]; Crestor 40 mg Oral tab once daily [Active]; Eliquis 5 mg Oral tab 2 times per day [Active]; hydralazine 50 mg Oral tab 1 tab 4 times per day [Active]; magnesium oxide 500 mg Oral cap [Active]; metformin 500 mg Oral Tb24 1 tab 2 times per day [Active]; Multiple Vitamins Oral tab daily [Active]; omeprazole 40 mg Oral cpDR 1 cap once daily [Active]; Probiotic Oral [Active]; ranitidine HCl 75 mg Oral tab as needed [Active]; valsartan 160 mg Oral tab 1 tab once daily [Active]; verapamil 240 mg Oral TbER 1 tab once daily [Active]; Vitamin B-12 2,000 mcg Oral TbER daily [Active]; Vitamin D3 1,000 unit Oral chew daily [Active]; vitamin E Oral once daily [Active]; - PMHx: 16:24 acid reflux; Atrial Fib; Diabetes - NIDDM; Hyperlipidemia; Hypertension; Kidney stones; aa5 TIA; UTI; - Immunization history:: Pneumococcal vaccine is up to date, Flu vaccine is not up to date. - Social history:: Smoking status: Patient/guardian denies using tobacco. - Ebola Screening: : No symptoms or risks identified at this time. Screenin:01 Abuse screen: Denies threats or abuse. Denies injuries from another. Nutritional mg2 screening: No deficits noted. Tuberculosis screening: No symptoms or risk factors identified. Fall Risk None identified. Assessment: 17:53 General: Appears in no apparent distress. comfortable, Behavior is calm, cooperative. mg2 Pain: Complains of pain in chest Pain does not radiate. Pain currently is 4 out of 10 on a pain scale. Quality of pain is described as aching, Pain began gradually, 2-3 days ago. Neuro: Level of Consciousness is awake, alert, obeys commands, Oriented to person, place, time, situation. Cardiovascular: Reports chest pain, Capillary refill < 3 seconds Patient's skin is warm and dry. Respiratory: Airway is patent Respiratory effort is even, unlabored, Respiratory pattern is regular, symmetrical. Respiratory: Reports runny nose and congestion. GI: No signs and/or symptoms were reported involving the gastrointestinal system. : No signs and/or symptoms were reported regarding the genitourinary system. EENT: No signs and/or symptoms were reported regarding the EENT system. Derm: Skin is intact, is healthy with good turgor, Skin is pink, warm \T\ dry. normal. Musculoskeletal: Circulation, motion, and sensation intact. Capillary refill < 3 seconds. 20:08 Reassessment: Patient appears in no apparent distress at this time. Patient and/or mg2 family updated on plan of care and expected duration. Pain level reassessed. Patient is alert, oriented x 3, equal unlabored respirations, skin warm/dry/pink. Vital Signs: 16:24 BP 186 / 85; Pulse 71; Resp 18 S; Temp 98.1(O); Pulse Ox 97% on R/A; Weight 63.5 kg aa5 (R); Height 5 ft. 2 in. (157.48 cm) (R); Pain 4/10; 18:31 BP 177 / 53; Pulse 68; Resp 18; Pulse Ox 100% on R/A; mg2 20:08 BP 137 / 67; Pulse 80; Resp 18; Pulse Ox 100% on R/A; Pain 0/10; mg2 16:24 Body Mass Index 25.61 (63.50 kg, 157.48 cm) aa5 ED Course: 16:04 Patient arrived in ED. as 16:05 Elli Britt MD is Private Physician. as 16:22 Arm band placed on. aa5 16:23 Triage completed. aa5 16:30 Reynold Paredes MD is Attending Physician. 16:57 Gage Bajwa, RN is Primary Nurse. mg2 17:21 EKG done, by [employer] technical lead senior developer. reviewed by Reynold Paredes MD. sm3 17:55 Patient has correct armband on for positive identification. stem roller or crusher operator on. Pulse mg2 ox on. NIBP on. Door closed. Warm blanket given. 17:55 No provider procedures requiring assistance completed. Inserted saline lock: in left mg2 wrist, using aseptic technique. Blood collected. 18:09 X-ray completed. Portable x-ray completed in exam room. Patient tolerated procedure ml well. 18:12 XRAY Chest (1 view) In Process Unspecified. EDMS 20:09 IV discontinued, intact, bleeding controlled, No redness/swelling at site. Pressure mg2 dressing applied. Administered Medications: No medications were administered Outcome: 19:26 Discharge ordered by MD. 20:08 Discharged to home via wheelchair, with family. mg2 20:08 Condition: stable 20:08 Discharge instructions given to patient, family, Instructed on discharge instructions, follow up and referral plans. Demonstrated understanding of instructions, follow-up care. 20:09 Patient left the ED. mg2 Signatures: Dispatcher [employer] EDMS Vicki Thomas Melissa ml Calderon, Audri, RN RN [place] [employer] Reynold Paredes MD MD Gage Bajwa, LAILA RN mg2 Maddie De Oliveira 3 Corrections: (The following items were deleted from the chart) 18:33 18:31 Pulse 68bpm; Resp 18bpm; Pulse Ox 100% RA; mg2 mg2 19:21 18:31 BP 117 / 53; Pulse 68bpm; Resp 18bpm; Pulse Ox 100% RA; mg2 mg2
--- NOTE | 2018-11-20 19:26 | EDPHYS ---
Physician Documentation [facility] Name: Radha Lara Age: 83 yrs Sex: Female : 1935 Arrival Date: 11/20/2018 Time: 16:04 Bed 30 Private MD: Elli Britt ED Physician Reynold Paredes HPI: 11/20 21:07 This 83 yrs old Female presents to ER via Wheelchair with complaints of Pain gs All Over. 21:07 says pain everywhere for a week . Onset: The symptoms/episode began/occurred 1 week(s) gs ago. Severity of symptoms: At their worst the symptoms were severe in the emergency department the symptoms are unchanged. The patient has experienced similar episodes in the past, a few times. The patient has not recently seen a physician. Historical: - Allergies: 16:24 Aspirin; aa5 16:24 Clonidine; aa5 16:24 Codeine; aa5 16:24 Iodinated Contrast Media - IV Dye; aa5 16:24 Lisinopril; aa5 16:24 Niacin; aa5 16:24 Nitrofurantoin; aa5 16:24 nitrous oxide; aa5 16:24 vicoden; aa5 - Home Meds: 17:58 carvedilol 25 mg Oral tab 1 tab 2 times per day [Active]; cranberry Oral twice a day mg2 [Active]; Crestor 40 mg Oral tab once daily [Active]; Eliquis 5 mg Oral tab 2 times per day [Active]; hydralazine 50 mg Oral tab 1 tab 4 times per day [Active]; magnesium oxide 500 mg Oral cap [Active]; metformin 500 mg Oral Tb24 1 tab 2 times per day [Active]; Multiple Vitamins Oral tab daily [Active]; omeprazole 40 mg Oral cpDR 1 cap once daily [Active]; Probiotic Oral [Active]; ranitidine HCl 75 mg Oral tab as needed [Active]; valsartan 160 mg Oral tab 1 tab once daily [Active]; verapamil 240 mg Oral TbER 1 tab once daily [Active]; Vitamin B-12 2,000 mcg Oral TbER daily [Active]; Vitamin D3 1,000 unit Oral chew daily [Active]; vitamin E Oral once daily [Active]; - PMHx: 16:24 acid reflux; Atrial Fib; Diabetes - NIDDM; Hyperlipidemia; Hypertension; Kidney stones; aa5 TIA; UTI; - Immunization history:: Pneumococcal vaccine is up to date, Flu vaccine is not up to date. - Social history:: Smoking status: Patient/guardian denies using tobacco. - Ebola Screening: : No symptoms or risks identified at this time. ROS: 21:07 Constitutional: Positive for fatigue, Negative for fever. gs 21:07 Cardiovascular: Negative for chest pain, orthopnea, palpitations, paroxysmal nocturnal dyspnea. 21:07 Respiratory: Negative for cough, hemoptysis, pleurisy, shortness of breath. 21:07 Abdomen/GI: Negative for nausea and vomiting, nausea, vomiting, and diarrhea. 21:07 Skin: Negative for abscesses, cellulitis, erythema, rash, swelling. 21:07 Neuro: Negative for altered mental status. 21:07 All other systems are negative. Exam: 21:07 Head/Face: Normocephalic, atraumatic. Eyes: Pupils equal round and reactive to light, gs extra-ocular motions intact. Lids and lashes normal. Conjunctiva and sclera are non-icteric and not injected. Cornea within normal limits. Periorbital areas with no swelling, redness, or edema. ENT: Nares patent. No nasal discharge, no septal abnormalities noted. Tympanic membranes are normal and external auditory canals are clear. Oropharynx with no redness, swelling, or masses, exudates, or evidence of obstruction, uvula midline. Mucous membranes moist. Neck: Trachea midline, no thyromegaly or masses palpated, and no cervical lymphadenopathy. Supple, full range of motion without nuchal rigidity, or vertebral point tenderness. No Meningismus. Chest/axilla: Normal chest wall appearance and motion. Nontender with no deformity. No lesions are appreciated. Cardiovascular: Regular rate and rhythm with a normal S1 and S2. No gallops, murmurs, or rubs. Normal PMI, no JVD. No pulse deficits. Respiratory: Lungs have equal breath sounds bilaterally, clear to auscultation and percussion. No rales, rhonchi or wheezes noted. No increased work of breathing, no retractions or nasal flaring. Abdomen/GI: Soft, non-tender, with normal bowel sounds. No distension or tympany. No guarding or rebound. No evidence of tenderness throughout. Back: No spinal tenderness. No costovertebral tenderness. Full range of motion. Skin: Warm, dry with normal turgor. Normal color with no rashes, no lesions, and no evidence of cellulitis. MS/ Extremity: Pulses equal, no cyanosis. Neurovascular intact. Full, normal range of motion. Neuro: Awake and alert, GCS 15, oriented to person, place, time, and situation. Cranial nerves II-XII grossly intact. Motor strength 5/5 in all extremities. Sensory grossly intact. Cerebellar exam normal. Normal gait. 21:07 Constitutional: The patient appears alert, awake. 21:07 ECG was reviewed by the Attending Physician. Vital Signs: 16:24 BP 186 / 85; Pulse 71; Resp 18 S; Temp 98.1(O); Pulse Ox 97% on R/A; Weight 63.5 kg aa5 (R); Height 5 ft. 2 in. (157.48 cm) (R); Pain 4/10; 18:31 BP 177 / 53; Pulse 68; Resp 18; Pulse Ox 100% on R/A; mg2 20:08 BP 137 / 67; Pulse 80; Resp 18; Pulse Ox 100% on R/A; Pain 0/10; mg2 16:24 Body Mass Index 25.61 (63.50 kg, 157.48 cm) aa5 MDM: 17:07 Patient medically screened. 21:07 Differential Diagnosis sepsis, flu, uti cad. Data reviewed: vital signs, nurses notes, gs lab test result(s), EKG, radiologic studies. Counseling: I had a detailed discussion with the patient and/or guardian regarding: the historical points, exam findings, and any diagnostic results supporting the discharge/admit diagnosis, lab results, radiology results, the need for outpatient follow up. Response to treatment: the patient's symptoms have mildly improved after treatment, and as a result, I will discharge patient. 11/20 17:07 Order name: Basic Metabolic Panel; Complete Time: 18:19 11/20 17:07 Order name: CBC with Diff; Complete Time: 18:19 11/20 17:07 Order name: LFT's; Complete Time: 18:19 11/20 17:07 Order name: Magnesium; Complete Time: 18:19 11/20 17:07 Order name: NT PRO-BNP; Complete Time: 18:19 11/20 17:07 Order name: PT-INR; Complete Time: 18:19 11/20 17:07 Order name: Troponin (emerg Dept Use Only); Complete Time: 18:19 11/20 17:07 Order name: XRAY Chest (1 view); Complete Time: 18:56 11/20 17:07 Order name: EKG; Complete Time: 17:09 11/20 17:07 Order name: Cardiac monitoring; Complete Time: 17: 11/20 17:07 Order name: EKG - Nurse/Tech; Complete Time: 17: 11/20 17:07 Order name: IV Saline Lock; Complete Time: 17: 11/20 17:07 Order name: CPK; Complete Time: 18:19 11/20 18:48 Order name: Urine Dipstick--Ancillary (enter results); Complete Time: 18:56 11/20 17:07 Order name: Labs collected and sent; Complete Time: 17: 11/20 17:07 Order name: O2 Per Protocol; Complete Time: : 11/20 17:07 Order name: O2 Sat Monitoring; Complete Time: : 11/20 18:20 Order name: Urine Dipstick-Ancillary (obtain specimen); Complete Time: 18:46 gs EC:07 Rate is 64 beats/min. Rhythm is irregularly irregular. QRS interval is normal. QT gs interval is normal. T waves are Flattened. Clinical impression: Abnormal EKG without significant change. Interpreted by me. Administered Medications: No medications were administered Disposition: 11/20/18 19:26 Discharged to Home. Impression: Weakness. - Condition is Stable. - Discharge Instructions: Weakness, Fatigue. - Medication Reconciliation Form, Thank You Letter, Antibiotic Education, Prescription Opioid Use form. - Follow up: Private Physician; When: 1 - 2 days; Reason: Re-evaluation by your physician. - Problem is new. - Symptoms have improved. Signatures: Dispatcher [employer] EDGuerda Oconnor, RN RN aa5 Reynold Paredes MD MD gs Gardose, Michele, RN RN mg2 Corrections: (The following items were deleted from the chart) 20:09 19:26 11/20/2018 19:26 Discharged to Home. Impression: Weakness. Condition is Stable. mg2 Forms are Medication Reconciliation Form, Thank You Letter, Antibiotic Education, Prescription Opioid Use. Follow up: Private Physician; When: 1 - 2 days; Reason: Re-evaluation by your physician. Problem is new. Symptoms have improved. gs
[2018-11-20 20:15] VITALS: TEMP 98.1
[2018-11-20 20:16] VITALS: O2SAT 100
[2018-11-20 20:17] VITALS: BP 137/67
--- NOTE | 2018-11-21 07:14 | EKG ---
Test Date: 2018-11-20 Test Time: 17:17:38 Welfare Manager: ЕКАТЕРИНА MEASUREMENT RESULTS: Intervals: Rate: 64 [place]: QRSD: 98 QT: 406 QTc: 418 [place]: P: [place]: QRS: 51 T: 83 INTERPRETIVE STATEMENTS: Atrial fibrillation Minimal voltage criteria for LVH, may be normal variant Anteroseptal infarct, age undetermined Abnormal ECG Compared to ECG 08/20/2018 18:28:46 Left ventricular hypertrophy now present Myocardial infarct finding now present ST (T wave) deviation no longer present Electronically Signed On 11-21-18 07:13:26 CDT by Ayaan Ni
== END 2018-11-20 20:09 | disposition home or self-care (01) ==
LOC: ER 16:03
DX: R53.1 Weakness (principal); I10 Essential (primary) hypertension; E78.5 Hyperlipidemia, unspecified; E11.9 Type 2 diabetes mellitus without complications; I48.91 Unspecified atrial fibrillation; Z79.01 Long term (current) use of anticoagulants; Z88.5 Allergy status to narcotic agent; Z88.6 Allergy status to analgesic agent; Z88.8 Allergy status to other drugs, medicaments and biological substances; Z91.041 Radiographic dye allergy status
CPT/HCPCS: 36415; 71045; 80048; 80076; 81003; 82550; 83735; 83880; 84484; 85025; 85610; 93005; 99284

== ENCOUNTER 2018-12-31 12:01 | Emergency (ER) | payer OTHER ==
--- OUTSIDE RECORDS SUMMARY | 2018-12-31 12:04 | XMS REPORT ---
[...] Dosage System Date Date Verapamil HCl [place] [facility] [place] 31140110820 240 MG Orally Active 1 capsule Once a day Bactrim DS [facility] [place] 23376973599 800-160 MG January Active 1 tablet Orally Twice a , 2017 Metformin HCl [facility] [place] 41991995324 500 MG Orally Active 1 tablet Twice a day with meals Valsartan [facility] [place] 95349126855 160 MG Orally Active 1 tablet Once a day Plavix ND 53024877454 75 MG Orally Active 1 tablet Once a day Vitamin D3 ND 24766392560 1000 UNIT Active 1 capsule Orally Once a day Toviaz [facility] [place] 43135106350 8 MG Orally Active 1 tablet Once a day Eliquis [facility] [place] 27879462915 5 MG Orally Active 1 tablet twice a day Crestor [facility] [place] 66454275052 40 MG Active 1 EACH ONCE A DAY HydrALAZINE HCl [facility] [place] 72066351646 50 MG Orally Active 1 tablet Four times a with food day Cyanocobalamin [facility] [place] [address]-48 1000 MCG/15ML Active 15 ml Orally Once a day Omeprazole [facility] [place] 46169567722 40 MG orally Active 1 EACH daily in AM ONCE A DAY HydrALAZINE HCl [facility] [place] 10067245392 100 MG Orally December 05, Active as Three times a 2018 day Coreg [facility] [place] 61160484356 25 MG Orally Active not defined Results No Known Results Summary Purpose eClinicalWorks Submission
--- OUTSIDE RECORDS SUMMARY | 2018-12-31 12:04 | XMS REPORT | Clinical Summary ---
:1935 Author Organization [facility] Address [address] [place] [address] Care Team Providers Name Role Phone Unavailable [...] times daily with breakfast and dinner. rosuvastatin Take 40 mg by 0 Active (CRESTOR) 40 MG mouth daily. tablet apixaban (ELIQUIS) 5 Take 5 mg by 0 Active mg Tab tablet mouth 2 (two) times daily. hydrALAZINE Take 100 mg by 0 Active (APRESOLINE) 100 MG mouth 3 (three) tablet times daily. magnesium gluconate Take 500 mg by 0 Active (MAGONATE) 27.5 mg mouth 2 (two) (500 mg) tablet times daily. metFORMIN Take 500 mg by 0 Active (GLUCOPHAGE) 500 MG mouth 2 (two) tablet times daily with breakfast and dinner. omeprazole (PRILOSEC) Take 40 mg by 0 Active 40 MG capsule mouth daily. valsartan (DIOVAN) Take 160 mg by 0 Active 160 MG tablet mouth daily. verapamil (VERELAN Take 240 mg by 0 Active PM) 240 MG 24 hr mouth nightly. capsule cyanocobalamin Take 1,000 mcg 0 Active (VITAMIN B-12) 1000 by mouth daily. MCG tablet cholecalciferol, Take 1,000 Units 0 Active vitamin D3, 1,000 by mouth daily. unit capsule clopidogrel (PLAVIX) Take 1 tablet 30 tablet 3 11/23/2017 11/23/2018 75 mg tablet (75 mg total) by mouth daily. Active Problems Problem Noted Date Expressive aphasia 11/19/2017 Essential hypertension 11/19/2017 Type 2 diabetes mellitus without complication, without long-term current 11/19 use of insulin Chronic atrial fibrillation 11/19/2017 Hyponatremia 11/19/2017 TIA (transient ischemic attack) 11/19/2017 Social History Tobacco Use Types Packs/Day Years Used Date Never Smoker Smokeless Tobacco: Never Used Sex Assigned at Date Recorded Not on file Job Start Date Occupation Industry Not on file Not on file Not on file Travel History Travel Start Travel End No recent travel history available. Last Filed Vital Signs Not on file Plan of Treatment Not on file Results Not on fileafter 12/30/2017 Insurance Payer Benefit Plan / Group Subscriber ID Type Phone Address [facility] x[facility] Maps Contracted Advance Directives For more information, please contact:[address] [phone] Code Status Date Activated Date Inactivated Comments Partial Code 11/19/2017 10:17 PM 11/22/2017 6:56 PM This code status was determined by: Patient Drug Protocol After Arrest Occurs? No Mechanical Ventilation with Intubation? No Bag/Mask? No Internal/External Pacemaker? No Transfer to Critical Care? No Chest Compressions? No Defibrillation/Cardioversion? No
--- OUTSIDE RECORDS SUMMARY | 2018-12-31 12:04 | XMS REPORT ---
[...] End Status Dosage System Date Date Macrobid [facility] 13470934091 100 MG Orally Sep 08, Aug Active 1 capsule every 12 hrs 2018 22, with food 2018 HydrALAZINE HCl [facility] 46981668793 100 MG Orally December 05, Active as Three times a 2018 day Cyanocobalamin [facility] [address]-98 1000 MCG/15ML Active 15 ml Orally Once a day Metformin HCl [facility] 90578725268 500 MG Orally Active 1 tablet Twice a day with meals Bactrim DS ND 96815270676 800-160 MG January Active 1 tablet Orally Twice a 30, day 2017 Irbesartan [facility] 67498850108 150 MG Orally Active 1 tablet Once a day Crestor [facility] 21495977804 40 MG Active 1 EACH ONCE A DAY Valsartan [facility] 63821274807 160 MG Orally Active 1 tablet Once a day HydrALAZINE HCl [facility] 86270504424 50 MG Orally Active 1 tablet Four times a with food day Eliquis [facility] 69074863244 5 MG Orally Active 1 tablet twice a day Metformin HCl [facility] 87733306941 500 Active TAKE 1 TABLET BY MOUTH TWICE DAILY Crestor [facility] 81805143620 40 Active 1 EACH ONCE A DAY Coreg [facility] 47438756680 25 MG Orally Active not defined Omeprazole [facility] 39625300869 40 Active 1 EACH ONCE A DAY Toviaz [facility] 86602847665 8 MG Orally Active 1 tablet Once a day Plavix [facility] 77329110864 75 MG Orally Active 1 tablet Once a day Verapamil HCl ER [facility] 68892679902 240 MG Orally Active 1 capsule Once a day Omeprazole [facility] 06051352729 40 MG orally Active 1 EACH daily in AM ONCE A DAY Vitamin D3 [facility] 91435590179 1000 UNIT Active 1 capsule Orally Once a day Results No Known Results Summary Purpose eClinicalWorks Submission
--- OUTSIDE RECORDS SUMMARY | 2018-12-31 12:04 | XMS REPORT ---
:1935 [facility] Address [address] [place] [address] [address] [place] [address] Care Team Providers Name Role Phone DORY MEJIA Unavailable Unavailable Problems This patient has no known problems. Allergies, Adverse Reactions, Alerts This patient has no known allergies or adverse reactions. Medications This patient has no known medications. Results Test Description Test Time Test Comments Text Results Atomic Results Result Comments NV, ANGIOGRAM, 2017-11-22 11:37:00 Reason for FINAL REPORT PATIENT ID: CEREBRAL exam:->TIAs [id number] November 22, 2017 CLINICAL HISTORY: 82 years [...] guidance and strict sterile technique a 4 Welsh femoral sheath was inserted into the right common femoral artery. Through the sheath a 4 Welsh vertebral catheter was then advanced over the [...] MDReport Verified Date/Time: 11/22/2017 11:37:47 Reading Location: [facility] Y018 Neuro Angio Reading Room -GLUCOSE METER 2017-11-22 07:43:00 Test Item Value Reference Range Comments POC-GLUCOSE METER (BEAKER) (test 149 mg/dL 70-110 TESTED AT [facility] [address] [facility] yifu=2536) [facility] [place] [address] [id number] 06:46:00 Test Item Value Reference Range Comments MAGNESIUM (BEAKER) (test ybip=093) 2.0 mg/dL 1.6-2.6 BASIC METABOLIC [id number] 06:46:00 Test Item Value Reference Range Comments SODIUM (BEAKER) (test 133 meq/L 136-145 rqee=923) POTASSIUM (BEAKER) (test 4.4 meq/L 3.5-5.1 dlyq=480) CHLORIDE (BEAKER) (test 99 meq/L 98-107 tmrj=759) CO2 (BEAKER) (test 25 meq/L 22-29 dpmy=277) BLOOD UREA NITROGEN 11 mg/dL 7-21 (BEAKER) (test godt=532) CREATININE (BEAKER) (test 0.65 mg/dL 0.57-1.25 uexu=271) GLUCOSE RANDOM (BEAKER) 162 mg/dL 70-105 (test vgww=788) CALCIUM (BEAKER) (test 9.5 mg/dL 8.4-10.2 tdpi=720) EGFR (BEAKER) (test 87 mL/min/1.73 sq m ESTIMATED GFR IS NOT fxzc=6686) ACCURATE CREATININE CLEARANCE IN PREDICTING GLOMERULAR FILTRATION RATE. ESTIMATED GFR IS NOT APPLICABLE FOR DIALYSIS PATIENTS. [id number] 06:33:00 Test Item Value Reference Range Comments PROTIME (BEAKER) (test advu=144) 15.5 seconds 11.7-14.7 INR (BEAKER) (test vpmn=681) 1.2 <=5.9 PARTIAL THROMBOPLASTIN TIME (BEAKER) (test 35.9 seconds 22.5-36.0 ubul=583) RECOMMENDED COUMADIN/WARFARIN INR THERAPY RANGESSTANDARD DOSE: 2.0 - 3.0 Includes: PROPHYLAXIS forvenous thrombosis, systemic embolization; TREATMENT for venous thrombosis and/or pulmonary embolus.HIGH RISK: Target INR is 2.5-3.5 for patients with mechanical heart valves.POCT-GLUCOSE [id number] 06:22:00 Test Item Value Reference Range Comments POC-GLUCOSE METER (BEAKER) 161 mg/dL 70-110 TESTED AT [facility] [address] [facility] (test boll=4902) [facility] [place] [address] POCT-GLUCOSE [id number] 02:08:00 Test Item Value Reference Range Comments POC-GLUCOSE METER (BEAKER) 182 mg/dL 70-110 TESTED AT [facility] [address] [facility] (test tqfe=3260) [facility] [place] [address] POCT-GLUCOSE [id number] 19:30:00 Test Item Value Reference Range Comments POC-GLUCOSE METER (BEAKER) 146 mg/dL 70-110 TESTED AT [facility] [address] [facility] (test imdo=4102) [facility] [place] [address] CT, CAROTID, [id number] 14:54:00Please include aortaFINAL REPORT CT angiogram of [...] the left ICA terminus. There is also bhot-ee-npwntvam multifocal narrowing of the right carotid siphon. [...] of the right carotid siphon. Signed: [facility] Verified Date/Time: 11/21/2017 14:54:26 [facility] Reading Room [facility] [id number] 14:54:00FINAL REPORT CT angiogram of the upper [...] the left ICA terminus. There is also fspd-in-cfqjfdkc multifocal narrowing of the right carotid siphon. [...] Mcdaniels Verified Date/Time: 11/21/2017 14:54:26 Reading Location: [facility] Radiology Reading Room POCT-GLUCOSE [id number] 11:50:00 Test Item Value Reference Range Comments POC-GLUCOSE METER (BEAKER) 153 mg/dL 70-110 TESTED AT [facility] [address] [facility] (test lvvn=4376) [facility] [place] [address] POCT-GLUCOSE [id number] 08:08:00 Test Item Value Reference Range Comments POC-GLUCOSE METER (BEAKER) 125 mg/dL 70-110 TESTED AT [facility] [address] [facility] (test rqvp=7030) [facility] [place] [address] [id number] 06:43:00 Test Item Value Reference Range Comments MAGNESIUM (BEAKER) (test nlgh=598) 2.1 mg/dL 1.6-2.6 BASIC METABOLIC [id number] 06:43:00 Test Item Value Reference Range Comments SODIUM (BEAKER) (test 136 meq/L 136-145 bjlr=855) POTASSIUM (BEAKER) (test 4.0 meq/L 3.5-5.1 tyri=787) CHLORIDE (BEAKER) (test 101 meq/L 98-107 hter=313) CO2 (BEAKER) (test 27 meq/L 22-29 bsve=269) BLOOD UREA NITROGEN 12 mg/dL 7-21 (BEAKER) (test yanf=724) CREATININE (BEAKER) (test 0.68 mg/dL 0.57-1.25 uovq=858) GLUCOSE RANDOM (BEAKER) 122 mg/dL 70-105 (test meem=201) CALCIUM (BEAKER) (test 9.5 mg/dL 8.4-10.2 ecsh=992) EGFR (BEAKER) (test 83 mL/min/1.73 sq m ESTIMATED GFR IS NOT daxk=1369) ACCURATE CREATININE CLEARANCE IN PREDICTING GLOMERULAR FILTRATION RATE. ESTIMATED GFR IS NOT APPLICABLE FOR DIALYSIS PATIENTS. TSH/FREE T4 IF [id number] 22:12:00 Test Item Value Reference Range Comments THYROID STIMULATING HORMONE (BEAKER) (test 4.66 uIU/mL 0.35-4.94 qnfp=672) [id number] 21:54:00 Test Item Value Reference Range Comments MAGNESIUM (BEAKER) (test kszd=526) 2.0 mg/dL 1.6-2.6 BASIC METABOLIC [id number] 21:54:00 Test Item Value Reference Range Comments SODIUM (BEAKER) (test 134 meq/L 136-145 guwb=835) POTASSIUM (BEAKER) (test 4.1 meq/L 3.5-5.1 ctii=416) CHLORIDE (BEAKER) (test 101 meq/L 98-107 deul=504) CO2 (BEAKER) (test 24 meq/L 22-29 wmav=292) BLOOD UREA NITROGEN 11 mg/dL 7-21 (BEAKER) (test yqyg=327) CREATININE (BEAKER) (test 0.65 mg/dL 0.57-1.25 pntw=696) GLUCOSE RANDOM (BEAKER) 126 mg/dL 70-105 (test qvuz=606) CALCIUM (BEAKER) (test 9.5 mg/dL 8.4-10.2 pzxw=843) EGFR (BEAKER) (test 87 mL/min/1.73 sq m ESTIMATED GFR IS NOT oexm=9208) ACCURATE CREATININE CLEARANCE IN PREDICTING GLOMERULAR FILTRATION RATE. ESTIMATED GFR IS NOT APPLICABLE FOR DIALYSIS PATIENTS. LIPID [id number] 21:54:00 Test Item Value Reference Range Comments TRIGLYCERIDES (BEAKER) (test ijoi=950) 70 mg/dL CHOLESTEROL (BEAKER) (test zhks=261) 101 mg/dL HDL CHOLESTEROL (BEAKER) (test yuaq=996) 39 mg/dL LDL CHOLESTEROL CALCULATED (BEAKER) (test 48 mg/dL mxpr=045) Triglyceride Reference Range: Low Risk <150 Borderline 150- 199 High Risk 200-499 Very High Risk >=500Cholesterol Reference Range: Low Risk <200 Borderline 200-239 High Risk > 240HDL Cholesterol Reference Range: Low Risk >=60 High Risk <40LDL Cholesterol Reference Range: Optimal <100 Near Optimal 100-129 Borderline 130-159 High 160-189 Very High >=190POCT-GLUCOSE [id number] 21:35:00 Test Item Value Reference Range Comments POC-GLUCOSE METER (BEAKER) 128 mg/dL 70-110 TESTED AT [address] (test cyko=9252) [facility] [place] [address] POCT-GLUCOSE [id number] 17:55:00 Test Item Value Reference Range Comments POC-GLUCOSE METER (BEAKER) 113 mg/dL 70-110 TESTED AT [address] (test clzv=5614) [facility] [place] [address] POCT-GLUCOSE [id number] 12:32:00 Test Item Value Reference Range Comments POC-GLUCOSE METER (JANNETH) 120 mg/dL 70-110 TEST[facility] [place] [address] [facility] ohtt[facility]4443[facility] [place] [address] MR, MRA, BRAIN, WITHOUT [id number] 11:33:00Reason for exam:-> Ischemic Stroke EvaluationFINAL REPORT MRA Head and Neck CLINICAL HISTORY: CVA TECHNIQUE: MRA of the head utilizing 3-D bljn-cc-nuddbb technique, with 3-D reconstructions. MRA of the [...] There is no other evidence for a [place] of [place] proximal branch vessel occlusion. There [...] Verified Date/Time: 11/20/2017 11:33:14 Reading Location : [facility] C013V Neuro Reading Room MR, MRA, NECK, WITHOUT IV [id number] 11:33: 00Reason for exam:->Ischemic Stroke EvaluationFINAL REPORT MRA Head and Neck CLINICAL HISTORY: CVA TECHNIQUE: MRA of the head utilizing 3-D yrrb-nr-betskp technique, with 3-D reconstructions. MRA of the neck utilizing 2-D and 3-D ywal-vb-elmsmb technique, with 3-D reconstructions. COMPARISON: None FINDINGS: [...] There is no other evidence for a [place] of [place] proximal branch vessel occlusion. There [...] Verified Date/Time: 11/20/2017 11 :33:14 Reading Location: [address] Neuro Reading Room MR, BRAIN, WITHOUT [id number] 11:05:00Reason for exam:->Ischemic Stroke EvaluationFINAL REPORT MRI [...] MDReport Verified Date/Time: 11/20/2017 11:05:05 Reading Location: [address] Neuro Reading Room HEMOGLOBIN [id number] 09:08:00 Test Item Value Reference Range Comments HEMOGLOBIN A1C (BEAKER) (test eegh=095) 6.1 % 4.3-6.1 POCT-GLUCOSE [id number] 08:27:00 Test Item Value Reference Range Comments POC-GLUCOSE METER ([facility]) 125 mg/dL 70-110 TESTED AT [facility] [address] [facility] (test isox=7224) [facility] [place] [address] TSH/FREE T4 IF [id number] 07:47:00 Test Item Value Reference Range Comments THYROID STIMULATING HORMONE (BEAKER) (test 5.97 uIU/mL 0.35-4.94 svxj=217) VITAMIN [id number] 07:44:00 Test Item Value Reference Range Comments VITAMIN B12 (BEAKER) (test wspu=170) 857 pg/mL 213-816 CBC W/PLT COUNT & AUTO [id number] 06:47:00 Test Item Value Reference Range Comments WHITE BLOOD CELL COUNT (BEAKER) (test jcea=693) 8.3 K/ L 3.5-10.5 RED BLOOD CELL COUNT (BEAKER) (test iodu=859) 4.11 M/ L 3.93-5.22 HEMOGLOBIN (BEAKER) (test ozgq=742) 13.4 GM/DL 11.2-15.7 HEMATOCRIT (BEAKER) (test toso=570) 39.7 % 34.1-44.9 MEAN CORPUSCULAR VOLUME (BEAKER) (test fyrm=313) 96.6 fL 79.4-94.8 MEAN CORPUSCULAR HEMOGLOBIN (BEAKER) (test 32.6 pg 25.6-32.2 oowz=255) MEAN CORPUSCULAR HEMOGLOBIN CONC (BEAKER) (test 33.8 GM/DL 32.2-35.5 wczj=464) RED CELL DISTRIBUTION WIDTH (BEAKER) (test 12.1 % 11.7-14.4 mlqz=896) PLATELET COUNT (BEAKER) (test rldy=435) 209 K/CU MM 150-450 MEAN PLATELET VOLUME (BEAKER) (test okoc=564) 9.7 fL 9.4-12.3 NUCLEATED RED BLOOD CELLS (BEAKER) (test 0 /100 WBC 0-0 wfcb=281) NEUTROPHILS RELATIVE PERCENT (BEAKER) (test 49 % ydmt=174) LYMPHOCYTES RELATIVE PERCENT (BEAKER) (test 35 % sjkg=342) MONOCYTES RELATIVE PERCENT (BEAKER) (test 12 % kirb=660) EOSINOPHILS RELATIVE PERCENT (BEAKER) (test 4 % dxqx=777) BASOPHILS RELATIVE PERCENT (BEAKER) (test 1 % aiyd=577) NEUTROPHILS ABSOLUTE COUNT (BEAKER) (test 4.02 K/ L 1.56-6.13 ekkh=965) LYMPHOCYTES ABSOLUTE COUNT (BEAKER) (test 2.89 K/ L 1.18-3.74 tevl=365) MONOCYTES ABSOLUTE COUNT (BEAKER) (test 0.95 K/ L 0.24-0.36 suhz=389) EOSINOPHILS ABSOLUTE COUNT (BEAKER) (test 0.35 K/ L 0.04-0.36 fjkn=821) BASOPHILS ABSOLUTE COUNT (BEAKER) (test 0.04 K/ L 0.01-0.08 rkmj=333) IMMATURE GRANULOCYTES-RELATIVE PERCENT (BEAKER) 0 % 0-1 (test pvbw=2414) POCT-GLUCOSE [id number] 22:09:00 Test Item Value Reference Range Comments POC-GLUCOSE METER (BEAKER) 130 mg/dL 70-110 TESTED AT [facility] [address] [facility] (test aesv=9004) [facility] [place] [address]
--- OUTSIDE RECORDS SUMMARY | 2018-12-31 12:04 | XMS REPORT ---
[...] End Status Dosage System Date Date Omeprazole [facility] 52609185888 40 MG orally Active 1 EACH daily in AM ONCE A DAY HydrALAZINE HCl [facility] 65944942289 50 MG Orally Active 1 tablet Four times a with food day Vitamin D3 [facility] 34737992459 1000 UNIT Active 1 capsule Orally Once a day Cyanocobalamin [facility] [address]-24 1000 MCG/15ML Active 15 ml Orally Once a day Metformin HCl [facility] 24407805479 500 MG Orally Active 1 tablet Twice a day with meals Omeprazole [facility] 54308740031 40 Active 1 EACH ONCE A DAY Coreg [facility] 95853164443 25 MG Orally Active not defined Bactrim DS [facility] 44502055332 800-160 MG January Active 1 tablet Orally Twice a , 2017 Toviaz [facility] 88752393163 8 MG Orally Active 1 tablet Once a day Valsartan [facility] 91500067869 160 MG Orally Active 1 tablet Once a day Verapamil HCl ER [facility] 10217244654 240 MG Orally Active 1 capsule Once a day Eliquis [facility] 62074841801 5 MG Orally Active 1 tablet twice a day Metformin HCl [facility] 28767466193 500 Active TAKE 1 TABLET BY MOUTH TWICE DAILY HydrALAZINE HCl [facility] 51193688175 100 MG Orally December 05, Active as Three times a 2017 day Crestor [facility] 81989359806 40 Active 1 EACH ONCE A DAY Crestor [facility] 51172443388 40 MG Active 1 EACH ONCE A DAY Plavix [facility] 83801550095 75 MG Orally Active 1 tablet Once a day Irbesartan [facility] 46958594347 150 MG Orally Active 1 tablet Once a day Results No Known Results Summary Purpose eClinicalWorks Submission
--- OUTSIDE RECORDS SUMMARY | 2018-12-31 12:04 | XMS REPORT ---
[...] Status Dosage System Date Date Vitamin D3 [facility] 05228298323 1000 UNIT Active 1 capsule Orally Once a day HydrALAZINE HCl [facility] 31965319709 100 MG Orally December 05, Active as Three times a 2018 day Omeprazole [facility] 33135249176 40 MG orally Active 1 EACH daily in AM ONCE A DAY Plavix ND 28874576509 75 MG Orally Active 1 tablet Once a day Cyanocobalamin [facility] [address]-04 1000 MCG/15ML Active 15 ml Orally Once a day Valsartan ND 08842559851 160 MG Orally Active 1 tablet Once a day Verapamil HCl ER ND 96582137337 240 MG Orally Active 1 capsule Once a day Coreg [facility] 19484137445 25 MG Orally Active not defined HydrALAZINE HCl [facility] 79555015729 50 MG Orally Active 1 tablet Four times a with food day Eliquis [facility] 91377246814 5 MG Orally Active 1 tablet twice a day Myrbetriq [facility] 48428635980 25 MG Orally Inactive 1 tablet Once a day Metformin HCl [facility] 56364831288 500 MG Orally Active 1 tablet Twice a day with meals Toviaz [facility] 10062009644 8 MG Orally Active 1 tablet Once a day Crestor [facility] 04649171051 40 MG Active 1 EACH ONCE A DAY Results No Known Results Summary Purpose eClinicalWorks Submission
--- OUTSIDE RECORDS SUMMARY | 2018-12-31 12:05 | XMS REPORT ---
[...] End Status Dosage System Date Date Fluconazole TNC 02586673102 150 MG Orally Sep 15, Active 1 tablet today one tab a week 2018 and may repeat one tab in 1 week if no improvement Results No Known Results Summary Purpose eClinicalWorks Submission
[2018-12-31] MEDS ORDERED: NA CHLORIDE 0.9% 500 ML ONE (12:54)
[2018-12-31 13:26] LABS: Absolute Lymphocytes (CBC) 1.9 K/uL (0.7-4.9); Absolute Monocytes 0.9 K/uL (0.1-1.3); Absolute Neutrophil 5.4 K/uL (1.8-8.0); Basophils % 0.7 % (0-1.3); Eosinophils % 1.3 % (0-4.4); Hematocrit 39.1 % (36.0-45.0); Lymphocytes % 22.8 % (15.3-44.8); MPV 7.7 fL (7.6-11.3); Monocytes % 10.8 % (3.3-12.3); RBC Red Blood Cell Count 4.11 M/uL (3.86-4.86)
[2018-12-31 13:28] LABS: Urine Blood NEGATIVE (NEG); Urine Glucose NEGATIVE (NEG); Urine Protein NEGATIVE (NEG); Urine Specific Gravity 1.015 (1.005-1.030); Urine pH 6.5 (5.0-7.0)
[2018-12-31 13:34] LABS: Protime INR 1.46
[2018-12-31 13:41] LABS: Urine Bacteria <20 /HPF (<20); Urine Culture Reflex Order NOT NEEDED; Urine RBC <5 /HPF (NONE SEEN)
[2018-12-31 13:46] LABS: ALT/SGPT 28 U/L (12-78); AST/SGOT 18 U/L (15-37); Albumin 3.7 g/dL (3.4-5.0); Alkaline Phosphatase 90 U/L (45-117); BUN Blood Urea Nitrogen 15 mg/dL (7-18); Bicarbonate 27 mmol/L (21-32); Bilirubin Direct 0.2 mg/dL (0-0.2); Bilirubin Total 0.4 mg/dL (0.2-1.0); Glucose Level 127 mg/dL (74-106); Magnesium 2.2 mg/dL (1.8-2.4); NT PRO-BNP 1291 pg/mL (<450); Potassium 4.7 mmol/L (3.5-5.1); Protein, Total 7.2 g/dL (6.4-8.2); Sodium Level 130 mmol/L (136-145); Troponin (Emerg Dept Use Only) < 0.02 ng/mL (0.0-0.045)
[2018-12-31] MEDS ORDERED: ONDANSETRON 4 MG/2 ML VIAL ONE (14:42)
[2018-12-31] MEDS ORDERED: FAMOTIDINE 20 MG/2 ML VIAL IV ONE (14:42)
--- NOTE | 2018-12-31 15:01 | ER ---
Nurse's Notes [facility] Name: Radha Lara Age: 83 yrs Sex: Female : 1935 Arrival Date: 12/31/2018 Time: 12:06 Bed 13 Private MD: Elli Britt Diagnosis: Nausea;Weakness-general Presentation: 12/31 12:17 Presenting complaint: Patient states: Fatigue and weakness x 2 weeks. Seen by PCP 3 ss days ago and diagnosed with UTI and given Bactrim. Pt reports that her symptoms have not improved and she is now nauseated and has mid back achiness. Transition of care: patient was not received from another setting of care. Onset of symptoms was December 17, 2018. Risk Assessment: Do you want to hurt yourself or someone else? Patient reports no desire to harm self or others. Initial Sepsis Screen: Does the patient meet any 2 criteria? No. Patient's initial sepsis screen is negative. Does the patient have a suspected source of infection? No. Patient's initial sepsis screen is negative. Care prior to arrival: None. 12:17 Method Of Arrival: Ambulatory ss 12:17 Acuity: YOLANDE 3 ss Historical: - Allergies: 12:22 Aspirin; tw2 12:22 Clonidine; tw2 12:22 Codeine; tw2 12:22 Iodinated Contrast Media - IV Dye; tw2 12:22 Lisinopril; tw2 12:22 Niacin; tw2 12:22 Nitrofurantoin; tw2 12:22 nitrous oxide; tw2 12:22 vicoden; tw2 12:22 Ibuprofen; tw2 12:22 Unable to obtain; tw2 - Home Meds: 14:42 carvedilol 25 mg Oral tab 1 tab 2 times per day [Active]; cranberry Oral twice a day tw2 [Active]; Crestor 40 mg Oral tab once daily [Active]; Eliquis 5 mg Oral tab 2 times per day [Active]; hydralazine 50 mg Oral tab 1 tab 4 times per day [Active]; Multiple Vitamins Oral tab daily [Active]; omeprazole 40 mg Oral cpDR 1 cap once daily [Active]; Probiotic Oral [Active]; vitamin E Oral once daily [Active]; verapamil 240 mg Oral TbER 1 tab once daily [Active]; Vitamin D3 1,000 unit Oral chew daily [Active]; Vitamin B-12 2,000 mcg Oral TbER daily [Active]; valsartan 160 mg Oral tab 1 tab once daily [Active]; ranitidine HCl 75 mg Oral tab as needed [Active]; metformin 500 mg Oral Tb24 1 tab 2 times per day [Active]; magnesium oxide 500 mg Oral cap [Active]; - PMHx: 12:22 Diabetes - NIDDM; Hypertension; Kidney stones; Hyperlipidemia; acid reflux; Atrial Fib; tw2 TIA; UTI; - Immunization history:: Adult Immunizations. - Social history:: Smoking status: . - Ebola Screening: : Patient denies travel to an Ebola-affected area in the 21 days before illness onset. Screenin:19 Abuse screen: Denies threats or abuse. Nutritional screening: No deficits noted. tw2 Tuberculosis screening: No symptoms or risk factors identified. Fall Risk Secondary diagnosis (15 points) impaired mobility. Assessment: 12:10 General: Appears in no apparent distress. Behavior is calm, cooperative, appropriate tw2 for age. Pain: Denies pain. Neuro: Level of Consciousness is awake, alert, obeys commands, Oriented to person, place, time, situation. Neuro: Reports weakness. Cardiovascular: Heart tones S1 S2 Patient's skin is warm and dry. Respiratory: Airway is patent Respiratory effort is even, unlabored, Respiratory pattern is regular, symmetrical, Breath sounds are clear bilaterally. GI: Abdomen is flat, non-distended, Bowel sounds present X 4 quads. Reports nausea. : Reports recent uti. EENT: No signs and/or symptoms were reported regarding the EENT system. Derm: No signs and/or symptoms reported regarding the dermatologic system. Musculoskeletal: Range of motion: intact in all extremities. 13:10 Reassessment: Patient appears in no apparent distress at this time. No changes from tw2 previously documented assessment. Patient and/or family updated on plan of care and expected duration. Pain level reassessed. Patient is alert, oriented x 3, equal unlabored respirations, skin warm/dry/pink. 14:12 Reassessment: Patient appears in no apparent distress at this time. No changes from tw2 previously documented assessment. Patient and/or family updated on plan of care and expected duration. Pain level reassessed. Patient is alert, oriented x 3, equal unlabored respirations, skin warm/dry/pink. 15:27 Reassessment: Patient appears in no apparent distress at this time. No changes from tw2 previously documented assessment. Patient and/or family updated on plan of care and expected duration. Pain level reassessed. Patient is alert, oriented x 3, equal unlabored respirations, skin warm/dry/pink. Vital Signs: 12:17 BP 183 / 63; Pulse 75; Resp 18; Temp 98.0(TE); Pulse Ox 98% on R/A; Weight 63.05 kg; ss Height 5 ft. 2 in. (157.48 cm); Pain 0/10; 13:10 BP 167 / 42; Pulse 64; Resp 17; Pulse Ox 98% on R/A; tw2 14:12 BP 182 / 49; Pulse 61; Resp 17; Pulse Ox 98% on R/A; tw2 14:57 BP 178 / 55; Pulse 68; Resp 17; Pulse Ox 99% ; tw2 15:27 BP 174 / 42; Pulse 63; Resp 17; Pulse Ox 97% on R/A; tw2 12:17 Body Mass Index 25.42 (63.05 kg, 157.48 cm) ss 14:57 pt reports being due for next BP medication at 3pm today, provider notified. tw2 ED Course: 12:06 Patient arrived in ED. mr 12:06 Elli Britt MD is Private Physician. mr 12:07 Hari Lara PA is PHCP. cp 12:07 Chris Hammond MD is Attending Physician. cp 12:08 Placed in gown. Bed in low position. Call light in reach. Side rails up X2. Cardiac tw2 monitor on. Pulse ox on. NIBP on. 12:19 Mary Ellen Keys, LAILA is Primary Nurse. tw2 12:20 Arm band placed on. tw2 12:23 Triage completed. ss 12:51 Missed attempt(s): 22 gauge in right forearm. Bleeding controlled, band aid applied, tw2 catheter tip intact. Missed attempt(s): 22 gauge in right forearm. Bleeding controlled, band aid applied, catheter tip intact. 13:20 Inserted saline lock: 22 gauge in left antecubital area, using aseptic technique. Blood la1 collected. 14:28 XRAY Chest (1 view) In Process Unspecified. EDMS 14:59 Elli Britt MD is Referral Physician. cp 15:26 No provider procedures requiring assistance completed. IV discontinued, intact, tw2 bleeding controlled, No redness/swelling at site. Pressure dressing applied. Administered Medications: 13:20 Drug: NS 0.9% 500 ml Route: IV; Rate: 500 ml/hr; Site: left antecubital; tw2 14:00 Follow up: Response: No adverse reaction; IV Status: Completed infusion; IV Intake: tw2 500ml 14:35 Drug: Zofran 4 mg Route: IVP; Site: left antecubital; tw2 14:58 Follow up: Response: No adverse reaction; Nausea is decreased tw2 14:36 Drug: Pepcid 20 mg Route: IVP; Site: left antecubital; tw2 14:58 Follow up: Response: No adverse reaction tw2 Intake: 14:00 IV: 500ml; Total: 500ml. tw2 Outcome: 15:01 Discharge ordered by MD. cp 15:27 Discharged to home via wheelchair, with family. tw2 15:27 Condition: stable 15:27 Discharge instructions given to patient, family, Instructed on discharge instructions, follow up and referral plans. medication usage, Demonstrated understanding of instructions, follow-up care, medications, Prescriptions given X 1. 15:28 Patient left the ED. tw2 Signatures: Dispatcher [employer] Marley Yu Shelby, RN Kevin Ely RN RN la1 Hari Lara PA PA cp Wise, Tara, RN RN tw2
--- NOTE | 2018-12-31 15:01 | EDPHYS ---
Physician Documentation [facility] Name: Radha Lara Age: 83 yrs Sex: Female : 1935 Arrival Date: 12/31/2018 Time: 12:06 Bed 13 Private MD: Elli Britt ED Physician Chris Hammond HPI: 12/31 12:35 This 83 yrs old Female presents to ER via Ambulatory with complaints of cp Nausea, Weakness. 12:35 The patient presents to the emergency department with nausea, that is mild. cp 12:35 Onset: The symptoms/episode began/occurred gradually. Possible causes: diagnosed with cp UTI 2 days ago and currently taking Bactrim. Associated signs and symptoms: Pertinent positives: fatigue, general weakness, low back pain, Pertinent negatives: abdominal pain, constipation, diarrhea, fever, GI bleeding, hematuria, vomiting. Severity of symptoms: in the emergency department the symptoms are unchanged despite home interventions. Historical: - Allergies: 12:22 Aspirin; tw2 12:22 Clonidine; tw2 12:22 Codeine; tw2 12:22 Iodinated Contrast Media - IV Dye; tw2 12:22 Lisinopril; tw2 12:22 Niacin; tw2 12:22 Nitrofurantoin; tw2 12:22 nitrous oxide; tw2 12:22 vicoden; tw2 12:22 Ibuprofen; tw2 12:22 Unable to obtain; tw2 - Home Meds: 14:42 carvedilol 25 mg Oral tab 1 tab 2 times per day [Active]; cranberry Oral twice a day tw2 [Active]; Crestor 40 mg Oral tab once daily [Active]; Eliquis 5 mg Oral tab 2 times per day [Active]; hydralazine 50 mg Oral tab 1 tab 4 times per day [Active]; Multiple Vitamins Oral tab daily [Active]; omeprazole 40 mg Oral cpDR 1 cap once daily [Active]; Probiotic Oral [Active]; vitamin E Oral once daily [Active]; verapamil 240 mg Oral TbER 1 tab once daily [Active]; Vitamin D3 1,000 unit Oral chew daily [Active]; Vitamin B-12 2,000 mcg Oral TbER daily [Active]; valsartan 160 mg Oral tab 1 tab once daily [Active]; ranitidine HCl 75 mg Oral tab as needed [Active]; metformin 500 mg Oral Tb24 1 tab 2 times per day [Active]; magnesium oxide 500 mg Oral cap [Active]; - PMHx: 12:22 Diabetes - NIDDM; Hypertension; Kidney stones; Hyperlipidemia; acid reflux; Atrial Fib; tw2 TIA; UTI; - Immunization history:: Adult Immunizations. - Social history:: Smoking status: . - Ebola Screening: : Patient denies travel to an Ebola-affected area in the 21 days before illness onset. ROS: 12:45 Constitutional: Negative for body aches, chills, fever, poor PO intake. cp 12:45 Eyes: Negative for injury, pain, redness, and discharge. cp 12:45 ENT: Negative for drainage from ear(s), ear pain, sore throat, difficulty swallowing, difficulty handling secretions. 12:45 Neck: Negative for pain with movement, pain at rest, stiffness, tenderness. 12:45 Cardiovascular: Negative for chest pain, edema, palpitations. 12:45 Respiratory: Negative for cough, shortness of breath, wheezing. 12:45 Abdomen/GI: Positive for nausea, Negative for abdominal pain, vomiting, diarrhea, constipation, anorexia, black/tarry stool, rectal bleeding. 12:45 Back: Positive for pain at rest, of the low back area. 12:45 : Negative for hematuria, pelvic pain, difficulty urinating, vaginal bleeding. 12:45 Skin: Negative for cellulitis, rash. 12:45 Neuro: Positive for weakness, Negative for altered mental status, dizziness, headache, syncope. 12:45 All other systems are negative. Exam: 12:50 ECG was reviewed by the Attending Physician. cp 12:52 Constitutional: The patient appears in no acute distress, alert, awake, cp non-diaphoretic, non-toxic, well developed, well nourished. 12:52 Head/Face: Normocephalic, atraumatic. Eyes: Pupils equal round and reactive to light, cp extra-ocular motions intact. Lids and lashes normal. Conjunctiva and sclera are non-icteric and not injected. Cornea within normal limits. Periorbital areas with no swelling, redness, or edema. ENT: Nares patent. No nasal discharge, no septal abnormalities noted. Tympanic membranes are normal and external auditory canals are clear. Oropharynx with no redness, swelling, or masses, exudates, or evidence of obstruction, uvula midline. Mucous membranes moist. Neck: Trachea midline, no thyromegaly or masses palpated, and no cervical lymphadenopathy. Supple, full range of motion without nuchal rigidity, or vertebral point tenderness. No Meningismus. Chest/axilla: Normal chest wall appearance and motion. Nontender with no deformity. No lesions are appreciated. 12:52 Cardiovascular: Rate: normal, Rhythm: regular, Edema: is not appreciated, JVD: is not appreciated. 12:52 Respiratory: the patient does not display signs of respiratory distress, Respirations: normal, no use of accessory muscles, no retractions, no splinting, no tachypnea, labored breathing, is not present, Breath sounds: are clear throughout, no decreased breath sounds, no stridor, no wheezing. 12:52 Abdomen/GI: Inspection: abdomen appears normal, Bowel sounds: active, all quadrants, Palpation: abdomen is soft and non-tender, in all quadrants, rebound tenderness, is not appreciated, voluntary guarding, is not appreciated, involuntary guarding, is not appreciated. 12:52 Back: pain, that is very mild, of the low back area, ROM is normal. 12:52 Skin: cellulitis, is not appreciated, no rash present. 12:52 Neuro: Orientation: to person, place \T\ time. Mentation: is normal, Cerebellar function: is grossly normal, Motor: moves all fours, strength is normal, Sensation: no obvious gross deficits. Vital Signs: 12:17 BP 183 / 63; Pulse 75; Resp 18; Temp 98.0(TE); Pulse Ox 98% on R/A; Weight 63.05 kg; ss Height 5 ft. 2 in. (157.48 cm); Pain 0/10; 13:10 BP 167 / 42; Pulse 64; Resp 17; Pulse Ox 98% on R/A; tw2 14:12 BP 182 / 49; Pulse 61; Resp 17; Pulse Ox 98% on R/A; tw2 14:57 BP 178 / 55; Pulse 68; Resp 17; Pulse Ox 99% ; tw2 15:27 BP 174 / 42; Pulse 63; Resp 17; Pulse Ox 97% on R/A; tw2 12:17 Body Mass Index 25.42 (63.05 kg, 157.48 cm) 14:57 pt reports being due for next BP medication at 3pm today, provider notified. tw2 MDM: 12:10 Patient medically screened. cp 15:00 Data reviewed: vital signs, nurses notes, lab test result(s), EKG, radiologic studies, cp plain films. 15:00 Differential diagnosis: gastritis, viral gastroenteritis, gastroenteritis, sepsis, cp bacteremia. Test interpretation: by ED physician or midlevel provider: ECG, plain radiologic studies. Counseling: I had a detailed discussion with the patient and/or guardian regarding: the historical points, exam findings, and any diagnostic results supporting the discharge/admit diagnosis, lab results, radiology results, to return to the emergency department if symptoms worsen or persist or if there are any questions or concerns that arise at home. Response to treatment: the patient's symptoms have mildly improved after treatment, and as a result, I will discharge patient. 12/31 12:26 Order name: Basic Metabolic Panel 12/31 12:26 Order name: CBC with Diff 12/31 12:26 Order name: LFT's 12/31 12:26 Order name: Magnesium 12/31 12:26 Order name: NT PRO-BNP 12/31 12:26 Order name: PT-INR; Complete Time: 13:49 12/31 13:49 Interpretation: Reviewed. 12/31 12:26 Order name: Troponin (emerg Dept Use Only); Complete Time: 13:49 12/31 13:50 Interpretation: Reviewed. 12/31 12:26 Order name: Urine Microscopic Only; Complete Time: 13:49 12/31 13:51 Interpretation: Reviewed. 12/31 12:26 Order name: Procalcitonin; Complete Time: 14:12 cp 12/31 14:13 Interpretation: Within normal limits: Procalcitonin < 0.05. 12/31 12:26 Order name: Lactate; Complete Time: 13:49 cp 12/31 12:29 Order name: Basic Metabolic Panel; Complete Time: 13:49 EDMS 12/31 13:49 Interpretation: Normal except: NA 130; CL 97; GLUC 127; GFR 74. 12/31 12:29 Order name: CBC with Automated Diff; Complete Time: 13:49 EDMS 12/31 12:29 Order name: Liver (Hepatic) Function; Complete Time: 13:49 EDMS 12/31 12:29 Order name: Magnesium; Complete Time: 13:49 EDMS 12/31 12:26 Order name: EKG; Complete Time: 12:30 cp 12/31 12:26 Order name: Cardiac monitoring; Complete Time: 12:39 cp 12/31 12:26 Order name: EKG - Nurse/Tech; Complete Time: 13:14 cp 12/31 12:26 Order name: IV Saline Lock; Complete Time: 13:14 cp 12/31 12:26 Order name: Labs collected and sent; Complete Time: 13:14 cp 12/31 12:26 Order name: O2 Per Protocol; Complete Time: 13:14 cp 12/31 12:26 Order name: O2 Sat Monitoring; Complete Time: 13:14 cp 12/31 12:26 Order name: Cath; Complete Time: 13:20 cp 12/31 12:26 Order name: Urine Dipstick-Ancillary (obtain specimen); Complete Time: 13:20 cp 12/31 12:29 Order name: NT PRO-BNP; Complete Time: 13:49 EDMS 12/31 13:49 Interpretation: Abnormal: NT PRO-BNP 1291. cp 12/31 13:26 Order name: Urine Dipstick--Ancillary (enter results); Complete Time: 13:49 ag 12/31 13:50 Order name: XRAY Chest (1 view) cp / 14:14 Order name: PO challenge; Complete Time: 14:57 cp EC:50 Rate is 70 beats/min. Rhythm is irregularly irregular. QRS interval is prolonged at 104 cp msec. QT interval is normal. T waves are Inverted in leads aVL, V5. Interpreted by me. Reviewed by me. Administered Medications: 13:20 Drug: NS 0.9% 500 ml Route: IV; Rate: 500 ml/hr; Site: left antecubital; tw2 14:00 Follow up: Response: No adverse reaction; IV Status: Completed infusion; IV Intake: tw2 500ml 14:35 Drug: Zofran 4 mg Route: IVP; Site: left antecubital; tw2 14:58 Follow up: Response: No adverse reaction; Nausea is decreased tw2 14:36 Drug: Pepcid 20 mg Route: IVP; Site: left antecubital; tw2 14:58 Follow up: Response: No adverse reaction tw2 Disposition: 18:32 Co-signature as Attending Physician, Chris Hammond MD. rn Disposition: 12/31/18 15:01 Discharged to Home. Impression: Nausea, Weakness - general. - Condition is Stable. - Discharge Instructions: Nausea, Adult, Weakness. - Prescriptions for Zofran 4 mg Oral Tablet - take 1 tablet by ORAL route every 12 hours As needed; 20 tablet. - Medication Reconciliation Form, Thank You Letter, Antibiotic Education, Prescription Opioid Use form. - Follow up: Elli Britt MD; When: 1 - 2 days; Reason: Worsening of condition. - Problem is new. - Symptoms have improved. Signatures: Dispatcher [employer] EDMS Chris Hammond MD MD rn Page, Corey, PA PA cp Wise, Tara, RN RN tw2 Corrections: (The following items were deleted from the chart) 15:28 15:01 12/31/2018 15:01 Discharged to Home. Impression: Nausea; Weakness - general. tw2 Condition is Stable. Forms are Medication Reconciliation Form, Thank You Letter, Antibiotic Education, Prescription Opioid Use. Follow up: Elli Britt; When: 1 - 2 days; Reason: Worsening of condition. Problem is new. Symptoms have improved. cp
--- NOTE | 2018-12-31 15:31 | RAD REPORT ---
EXAM DESCRIPTION: RAD - Chest Single View - 12/31/2018 2:26 pm CLINICAL HISTORY: Weakness, fatigue, shortness of breath COMPARISON: October 2018 TECHNIQUE: AP portable chest image was obtained 1425 hours . FINDINGS: No focal lung parenchymal process. Chronic interstitial pattern is similar to comparison. Mild cardiomegaly matches prior imaging. No abnormal vascular engorgement. Sternotomy wires in place. No measurable pleural effusion and no pneumothorax. No acute bony abnormality seen. No acute aortic findings suspected. IMPRESSION: No acute cardiopulmonary process. Chest is similar to comparison.
[2018-12-31 15:43] VITALS: TEMP 98
[2018-12-31 15:46] VITALS: BP 174/42; O2SAT 97
--- NOTE | 2019-01-01 09:56 | EKG ---
Test Date: 2018-12-31 Test Time: 12:41:18 Fluid Pump Operator: DAGO MEASUREMENT RESULTS: Intervals: Rate: 70 WI: QRSD: 104 QT: 408 QTc: 440 [place]: P: WI: QRS: 38 T: 156 INTERPRETIVE STATEMENTS: Atrial fibrillation Minimal voltage criteria for LVH, may be normal variant Anteroseptal infarct, age undetermined ST & T wave abnormality, consider lateral ischemia Abnormal ECG Compared to ECG 11/20/2018 17:17:38 ST (T wave) deviation now present Possible ischemia now present Myocardial infarct finding still present Electronically Signed On 01-01-19 09:55:14 CDT by Ayaan Ni
== END 2018-12-31 15:28 | disposition home or self-care (01) ==
LOC: ER 12:01
DX: R53.1 Weakness (principal); I10 Essential (primary) hypertension; E11.9 Type 2 diabetes mellitus without complications; I48.91 Unspecified atrial fibrillation; E78.5 Hyperlipidemia, unspecified; Z79.01 Long term (current) use of anticoagulants; Z88.4 Allergy status to anesthetic agent; Z88.5 Allergy status to narcotic agent; Z88.6 Allergy status to analgesic agent; Z88.8 Allergy status to other drugs, medicaments and biological substances; Z91.041 Radiographic dye allergy status
CPT/HCPCS: 96361; 93005; 85025; 80048; 36415; 83735; 85610; 80076; 83605; 84484; 84145; 83880; 71045; 96375; 96374; 99284; J2405; 81003; 81015

== ENCOUNTER 2019-01-01 18:38 | Observation (INO) | payer OTHER ==
--- OUTSIDE RECORDS SUMMARY | 2019-01-01 18:40 | XMS REPORT | Clinical Summary ---
:1935 Author Organization [facility] Address [address] [place] [address] Care Team Providers Name Role Phone Unavailable [...] Not on file Results Not on fileafter 12/31/2017 Insurance Payer Benefit Plan / Group Subscriber ID Type Phone Address [facility] xxxxxxxxx Maps Contracted Advance Directives For more information, please contact:[address] [phone] Code Status Date Activated Date Inactivated Comments Partial Code 11/19/2017 10:17 PM 11/22/2017 6:56 PM This code status was determined by: Patient Drug Protocol After Arrest Occurs? No Mechanical Ventilation with Intubation? No Bag/Mask? No Internal/External Pacemaker? No Transfer to Critical Care? No Chest Compressions? No Defibrillation/Cardioversion? No
--- OUTSIDE RECORDS SUMMARY | 2019-01-01 18:41 | XMS REPORT ---
[...] Status Dosage System Date Date Vitamin D3 [facility] 72229188806 1000 UNIT Active 1 capsule Orally Once a day HydrALAZINE HCl [facility] 16922085621 100 MG Orally December 05, Active as Three times a 2018 day Omeprazole [facility] 25526670060 40 MG orally Active 1 EACH daily in AM ONCE A DAY Plavix ND 97514979923 75 MG Orally Active 1 tablet Once a day Cyanocobalamin [facility] [address]-75 1000 MCG/15ML Active 15 ml Orally Once a day Valsartan ND 49949777650 160 MG Orally Active 1 tablet Once a day Verapamil HCl ER ND 27774563867 240 MG Orally Active 1 capsule Once a day Coreg [facility] 75592059720 25 MG Orally Active not defined HydrALAZINE HCl [facility] 03125304379 50 MG Orally Active 1 tablet Four times a with food day Eliquis [facility] 03919408670 5 MG Orally Active 1 tablet twice a day Myrbetriq [facility] 15856578627 25 MG Orally Inactive 1 tablet Once a day Metformin HCl [facility] 80746310887 500 MG Orally Active 1 tablet Twice a day with meals Toviaz [facility] 41797044964 8 MG Orally Active 1 tablet Once a day Crestor [facility] 02398396146 40 MG Active 1 EACH ONCE A DAY Results No Known Results Summary Purpose eClinicalWorks Submission
--- OUTSIDE RECORDS SUMMARY | 2019-01-01 18:41 | XMS REPORT ---
[...] End Status Dosage System Date Date Fluconazole ORC 39818718644 150 MG Orally Sep 15, Active 1 tablet today one tab a week 2018 and may repeat one tab in 1 week if no improvement Results No Known Results Summary Purpose eClinicalWorks Submission
--- OUTSIDE RECORDS SUMMARY | 2019-01-01 18:41 | XMS REPORT ---
[...] End Status Dosage System Date Date Macrobid [facility] 40838881661 100 MG Orally Sep 08, Aug Active 1 capsule every 12 hrs 2018 22, with food 2018 HydrALAZINE HCl [facility] 32955035664 100 MG Orally December 05, Active as Three times a 2018 day Cyanocobalamin [facility] [address]-73 1000 MCG/15ML Active 15 ml Orally Once a day Metformin HCl [facility] 53698212529 500 MG Orally Active 1 tablet Twice a day with meals Bactrim DS ND 64547501195 800-160 MG January Active 1 tablet Orally Twice a 30, day 2017 Irbesartan [facility] 47656643347 150 MG Orally Active 1 tablet Once a day Crestor [facility] 09545933350 40 MG Active 1 EACH ONCE A DAY Valsartan [facility] 89326218356 160 MG Orally Active 1 tablet Once a day HydrALAZINE HCl [facility] 67198696542 50 MG Orally Active 1 tablet Four times a with food day Eliquis [facility] 52059105927 5 MG Orally Active 1 tablet twice a day Metformin HCl [facility] 37214251612 500 Active TAKE 1 TABLET BY MOUTH TWICE DAILY Crestor [facility] 72447988506 40 Active 1 EACH ONCE A DAY Coreg [facility] 28064509983 25 MG Orally Active not defined Omeprazole [facility] 38615910521 40 Active 1 EACH ONCE A DAY Toviaz [facility] 79196688102 8 MG Orally Active 1 tablet Once a day Plavix [facility] 91541199789 75 MG Orally Active 1 tablet Once a day Verapamil HCl ER [facility] 28845032545 240 MG Orally Active 1 capsule Once a day Omeprazole [facility] 43075222846 40 MG orally Active 1 EACH daily in AM ONCE A DAY Vitamin D3 [facility] 46033236360 1000 UNIT Active 1 capsule Orally Once a day Results No Known Results Summary Purpose eClinicalWorks Submission
--- OUTSIDE RECORDS SUMMARY | 2019-01-01 18:41 | XMS REPORT ---
[...] End Status Dosage System Date Date Omeprazole [facility] 98757532006 40 MG orally Active 1 EACH daily in AM ONCE A DAY HydrALAZINE HCl [facility] 58521239573 50 MG Orally Active 1 tablet Four times a with food day Vitamin D3 [facility] 92456645333 1000 UNIT Active 1 capsule Orally Once a day Cyanocobalamin [facility] [address]-57 1000 MCG/15ML Active 15 ml Orally Once a day Metformin HCl [facility] 14719946689 500 MG Orally Active 1 tablet Twice a day with meals Omeprazole [facility] 49221334496 40 Active 1 EACH ONCE A DAY Coreg [facility] 06202758081 25 MG Orally Active not defined Bactrim DS [facility] 55407721818 800-160 MG January Active 1 tablet Orally Twice a , 2017 Toviaz [facility] 10376498922 8 MG Orally Active 1 tablet Once a day Valsartan [facility] 90686727425 160 MG Orally Active 1 tablet Once a day Verapamil HCl ER [facility] 78445149883 240 MG Orally Active 1 capsule Once a day Eliquis [facility] 33060829452 5 MG Orally Active 1 tablet twice a day Metformin HCl [facility] 67103759720 500 Active TAKE 1 TABLET BY MOUTH TWICE DAILY HydrALAZINE HCl [facility] 55755216667 100 MG Orally December 05, Active as Three times a 2017 day Crestor [facility] 39323841966 40 Active 1 EACH ONCE A DAY Crestor [facility] 70384948105 40 MG Active 1 EACH ONCE A DAY Plavix [facility] 76071191274 75 MG Orally Active 1 tablet Once a day Irbesartan [facility] 54336291851 150 MG Orally Active 1 tablet Once a day Results No Known Results Summary Purpose eClinicalWorks Submission
--- OUTSIDE RECORDS SUMMARY | 2019-01-01 18:41 | XMS REPORT ---
:1935 [facility] [address] [place] [address] [address] [place] [address] Care Team Providers Name Role Phone DORY MEJIA Unavailable Unavailable Problems This patient has no known problems. Allergies, Adverse Reactions, Alerts This patient has no known allergies or adverse reactions. Medications This patient has no known medications. Results Test Description Test Time Test Comments Text Results Atomic Results Result Comments NV, ANGIOGRAM, 2017-11-22 11:37:00 Reason for FINAL REPORT PATIENT ID: CEREBRAL exam:->TIAs [id number] November 22, 2017 CLINICAL HISTORY: 82 years [...] guidance and strict sterile technique a 4 English femoral sheath was inserted into the right common femoral artery. Through the sheath a 4 English vertebral catheter was then advanced over the [...] MDReport Verified Date/Time: 11/22/2017 11:37:47 Reading Location: [facility] Y018 Neuro Angio Reading Room -GLUCOSE METER 2017-11-22 07:43:00 Test Item Value Reference Range Comments POC-GLUCOSE METER (BEAKER) (test 149 mg/dL 70-110 TESTED AT [facility] [address] [facility] srun=7012) [facility] [address] [id number] 06:46:00 Test Item Value Reference Range Comments MAGNESIUM (BEAKER) (test lfdn=067) 2.0 mg/dL 1.6-2.6 BASIC METABOLIC [id number] 06:46:00 Test Item Value Reference Range Comments SODIUM (BEAKER) (test 133 meq/L 136-145 oqbo=050) POTASSIUM (BEAKER) (test 4.4 meq/L 3.5-5.1 rfeh=462) CHLORIDE (BEAKER) (test 99 meq/L 98-107 zcjd=527) CO2 (BEAKER) (test 25 meq/L 22-29 gbta=849) BLOOD UREA NITROGEN 11 mg/dL 7-21 (BEAKER) (test lsfd=384) CREATININE (BEAKER) (test 0.65 mg/dL 0.57-1.25 icmi=663) GLUCOSE RANDOM (BEAKER) 162 mg/dL 70-105 (test ijtj=122) CALCIUM (BEAKER) (test 9.5 mg/dL 8.4-10.2 macj=091) EGFR (BEAKER) (test 87 mL/min/1.73 sq m ESTIMATED GFR IS NOT uvma=7380) ACCURATE CREATININE CLEARANCE IN PREDICTING GLOMERULAR FILTRATION RATE. ESTIMATED GFR IS NOT APPLICABLE FOR DIALYSIS PATIENTS. [id number] 06:33:00 Test Item Value Reference Range Comments PROTIME (BEAKER) (test wrnc=062) 15.5 seconds 11.7-14.7 INR (BEAKER) (test tmls=993) 1.2 <=5.9 PARTIAL THROMBOPLASTIN TIME (BEAKER) (test 35.9 seconds 22.5-36.0 hcto=408) RECOMMENDED COUMADIN/WARFARIN INR THERAPY RANGESSTANDARD DOSE: 2.0 - 3.0 Includes: PROPHYLAXIS forvenous thrombosis, systemic embolization; TREATMENT for venous thrombosis and/or pulmonary embolus.HIGH RISK: Target INR is 2.5-3.5 for patients with mechanical heart valves.POCT-GLUCOSE [id number] 06:22:00 Test Item Value Reference Range Comments POC-GLUCOSE METER (BEAKER) 161 mg/dL 70-110 TESTED AT [facility] [address] [facility] (test bths=4540) [facility] [address] POCT-GLUCOSE [id number] 02:08:00 Test Item Value Reference Range Comments POC-GLUCOSE METER (BEAKER) 182 mg/dL 70-110 TESTED AT [facility] [address] [facility] (test xlie=9080) [facility] [address] POCT-GLUCOSE [id number] 19:30:00 Test Item Value Reference Range Comments POC-GLUCOSE METER (BEAKER) 146 mg/dL 70-110 TESTED AT [facility] [address] [facility] (test pobu=6356) [facility] [address] CT, CAROTID, [id number] 14:54:00Please include aortaFINAL REPORT CT angiogram of [...] the left ICA terminus. There is also atpp-pd-wyxmcnvj multifocal narrowing of the right carotid siphon. [...] of the right carotid siphon. Signed: [facility] Verified Date/Time: 11/21/2017 14:54:26 Reading Location: [facility] Radiology Reading Room . [facility] [id number] 14:54:00FINAL REPORT CT angiogram of the upper [...] the left ICA terminus. There is also hpbw-nu-eohkpsjl multifocal narrowing of the right carotid siphon. [...] Mcdaniels Verified Date/Time: 11/21/2017 14:54:26 Reading Location: [facility] Radiology Reading Room POCT-GLUCOSE [id number] 11:50:00 Test Item Value Reference Range Comments POC-GLUCOSE METER (BEAKER) 153 mg/dL 70-110 TESTED AT [facility] [address] [facility] (test vttc=7079) [facility] [address] POCT-GLUCOSE [id number] 08:08:00 Test Item Value Reference Range Comments POC-GLUCOSE METER (BEAKER) 125 mg/dL 70-110 TESTED AT [facility] [address] [facility] (test fybv=0203) [facility] [address] [id number] 06:43:00 Test Item Value Reference Range Comments MAGNESIUM (BEAKER) (test sjgp=336) 2.1 mg/dL 1.6-2.6 BASIC METABOLIC [id number] 06:43:00 Test Item Value Reference Range Comments SODIUM (BEAKER) (test 136 meq/L 136-145 eunf=149) POTASSIUM (BEAKER) (test 4.0 meq/L 3.5-5.1 yapa=662) CHLORIDE (BEAKER) (test 101 meq/L 98-107 xqxu=307) CO2 (BEAKER) (test 27 meq/L 22-29 aeec=723) BLOOD UREA NITROGEN 12 mg/dL 7-21 (BEAKER) (test adso=146) CREATININE (BEAKER) (test 0.68 mg/dL 0.57-1.25 ggeb=644) GLUCOSE RANDOM (BEAKER) 122 mg/dL 70-105 (test xjsp=792) CALCIUM (BEAKER) (test 9.5 mg/dL 8.4-10.2 dkbk=657) EGFR (BEAKER) (test 83 mL/min/1.73 sq m ESTIMATED GFR IS NOT ydyx=3983) ACCURATE CREATININE CLEARANCE IN PREDICTING GLOMERULAR FILTRATION RATE. ESTIMATED GFR IS NOT APPLICABLE FOR DIALYSIS PATIENTS. TSH/FREE T4 IF [id number] 22:12:00 Test Item Value Reference Range Comments THYROID STIMULATING HORMONE (BEAKER) (test 4.66 uIU/mL 0.35-4.94 dqhc=228) [id number] 21:54:00 Test Item Value Reference Range Comments MAGNESIUM (BEAKER) (test nsrq=419) 2.0 mg/dL 1.6-2.6 BASIC METABOLIC [id number] 21:54:00 Test Item Value Reference Range Comments SODIUM (BEAKER) (test 134 meq/L 136-145 lvwa=555) POTASSIUM (BEAKER) (test 4.1 meq/L 3.5-5.1 vvwu=419) CHLORIDE (BEAKER) (test 101 meq/L 98-107 okdo=818) CO2 (BEAKER) (test 24 meq/L 22-29 dfme=244) BLOOD UREA NITROGEN 11 mg/dL 7-21 (BEAKER) (test tkdh=370) CREATININE (BEAKER) (test 0.65 mg/dL 0.57-1.25 jhkw=561) GLUCOSE RANDOM (BEAKER) 126 mg/dL 70-105 (test bhdg=829) CALCIUM (BEAKER) (test 9.5 mg/dL 8.4-10.2 uhvi=962) EGFR (BEAKER) (test 87 mL/min/1.73 sq m ESTIMATED GFR IS NOT dgvd=4274) ACCURATE CREATININE CLEARANCE IN PREDICTING GLOMERULAR FILTRATION RATE. ESTIMATED GFR IS NOT APPLICABLE FOR DIALYSIS PATIENTS. LIPID [id number] 21:54:00 Test Item Value Reference Range Comments TRIGLYCERIDES (BEAKER) (test zyiz=578) 70 mg/dL CHOLESTEROL (BEAKER) (test zrpx=744) 101 mg/dL HDL CHOLESTEROL (BEAKER) (test xbdk=091) 39 mg/dL LDL CHOLESTEROL CALCULATED (BEAKER) (test 48 mg/dL mpbe=486) Triglyceride Reference Range: Low Risk <150 Borderline 150- 199 High Risk 200-499 Very High Risk >=500Cholesterol Reference Range: Low Risk <200 Borderline 200-239 High Risk > 240HDL Cholesterol Reference Range: Low Risk >=60 High Risk <40LDL Cholesterol Reference Range: Optimal <100 Near Optimal 100-129 Borderline 130-159 High 160-189 Very High >=190POCT-GLUCOSE [id number] 21:35:00 Test Item Value Reference Range Comments POC-GLUCOSE METER (BEAKER) 128 mg/dL 70-110 TESTED AT [address] (test spvo=5509) [facility] [address] POCT-GLUCOSE [id number] 17:55:00 Test Item Value Reference Range Comments POC-GLUCOSE METER (BEAKER) 113 mg/dL 70-110 TESTED AT [address] (test dnxp=0334) [facility] [address] POCT-GLUCOSE [id number] 12:32:00 Test Item Value Reference Range Comments POC-GLUCOSE METER (JANNETH) 120 mg/dL 70-110 TESTED AT [place] [address] [facility] moha[facility]5404[facility] [address] MR, MRA, BRAIN, WITHOUT [id number] 11:33:00Reason for exam:-> Ischemic Stroke EvaluationFINAL REPORT MRA Head and Neck CLINICAL HISTORY: CVA TECHNIQUE: MRA of the head utilizing 3-D eytu-tl-tuvlek technique, with 3-D reconstructions. MRA of the [...] There is no other evidence for a [place] proximal branch vessel occlusion. There [...] Verified Date/Time: 11/20/2017 11:33:14 Reading Location : [facility] C013V Neuro Reading Room MR, MRA, NECK, WITHOUT IV [id number] 11:33: 00Reason for exam:->Ischemic Stroke EvaluationFINAL REPORT MRA Head and Neck CLINICAL HISTORY: CVA TECHNIQUE: MRA of the head utilizing 3-D dvhr-ps-yejnbk technique, with 3-D reconstructions. MRA of the neck utilizing 2-D and 3-D egxi-rj-tmckan technique, with 3-D reconstructions. COMPARISON: None FINDINGS: [...] There is no other evidence for a [place] proximal branch vessel occlusion. There [...] Verified Date/Time: 11/20/2017 11 :33:14 Reading Location: [address] Neuro Reading Room MR, BRAIN, WITHOUT [id number] 11:05:00Reason for exam:->Ischemic Stroke EvaluationFINAL REPORT MRI [...] MDReport Verified Date/Time: 11/20/2017 11:05:05 Reading Location: [address] Neuro Reading Room HEMOGLOBIN [id number] 09:08:00 Test Item Value Reference Range Comments HEMOGLOBIN A1C (BEAKER) (test usyn=399) 6.1 % 4.3-6.1 POCT-GLUCOSE [id number] 08:27:00 Test Item Value Reference Range Comments POC-GLUCOSE METER ([facility]) 125 mg/dL 70-110 TESTED AT [facility] [address] [facility] (test aqve=4499) [facility] [address] TSH/FREE T4 IF [id number] 07:47:00 Test Item Value Reference Range Comments THYROID STIMULATING HORMONE (BEAKER) (test 5.97 uIU/mL 0.35-4.94 nvhz=304) VITAMIN [id number] 07:44:00 Test Item Value Reference Range Comments VITAMIN B12 (BEAKER) (test wsnw=293) 857 pg/mL 213-816 CBC W/PLT COUNT & AUTO [id number] 06:47:00 Test Item Value Reference Range Comments WHITE BLOOD CELL COUNT (BEAKER) (test ezql=869) 8.3 K/ L 3.5-10.5 RED BLOOD CELL COUNT (BEAKER) (test dtgh=341) 4.11 M/ L 3.93-5.22 HEMOGLOBIN (BEAKER) (test klcz=977) 13.4 GM/DL 11.2-15.7 HEMATOCRIT (BEAKER) (test jbza=072) 39.7 % 34.1-44.9 MEAN CORPUSCULAR VOLUME (BEAKER) (test anfc=844) 96.6 fL 79.4-94.8 MEAN CORPUSCULAR HEMOGLOBIN (BEAKER) (test 32.6 pg 25.6-32.2 xwru=111) MEAN CORPUSCULAR HEMOGLOBIN CONC (BEAKER) (test 33.8 GM/DL 32.2-35.5 qilt=679) RED CELL DISTRIBUTION WIDTH (BEAKER) (test 12.1 % 11.7-14.4 cinb=920) PLATELET COUNT (BEAKER) (test uydp=035) 209 K/CU MM 150-450 MEAN PLATELET VOLUME (BEAKER) (test cxwi=073) 9.7 fL 9.4-12.3 NUCLEATED RED BLOOD CELLS (BEAKER) (test 0 /100 WBC 0-0 kjiu=196) NEUTROPHILS RELATIVE PERCENT (BEAKER) (test 49 % vuoq=669) LYMPHOCYTES RELATIVE PERCENT (BEAKER) (test 35 % nqvz=902) MONOCYTES RELATIVE PERCENT (BEAKER) (test 12 % xqet=737) EOSINOPHILS RELATIVE PERCENT (BEAKER) (test 4 % abkf=785) BASOPHILS RELATIVE PERCENT (BEAKER) (test 1 % zpkg=880) NEUTROPHILS ABSOLUTE COUNT (BEAKER) (test 4.02 K/ L 1.56-6.13 xhju=958) LYMPHOCYTES ABSOLUTE COUNT (BEAKER) (test 2.89 K/ L 1.18-3.74 wjxq=437) MONOCYTES ABSOLUTE COUNT (BEAKER) (test 0.95 K/ L 0.24-0.36 qcmr=054) EOSINOPHILS ABSOLUTE COUNT (BEAKER) (test 0.35 K/ L 0.04-0.36 ewty=703) BASOPHILS ABSOLUTE COUNT (BEAKER) (test 0.04 K/ L 0.01-0.08 ipes=891) IMMATURE GRANULOCYTES-RELATIVE PERCENT (BEAKER) 0 % 0-1 (test blnw=0384) POCT-GLUCOSE [id number] 22:09:00 Test Item Value Reference Range Comments POC-GLUCOSE METER (BEAKER) 130 mg/dL 70-110 TESTED AT [facility] [address] [facility] (test wzrv=8136) [facility] [address]
--- OUTSIDE RECORDS SUMMARY | 2019-01-01 18:41 | XMS REPORT ---
[...] Dosage System Date Date Verapamil HCl ER [facility] 12524075660 240 MG Orally Active 1 capsule Once a day Bactrim DS [facility] 57241449149 800-160 MG January Active 1 tablet Orally Twice a , 2017 Metformin HCl [facility] 78630619912 500 MG Orally Active 1 tablet Twice a day with meals Valsartan [facility] 69676144107 160 MG Orally Active 1 tablet Once a day Plavix ND 51287897839 75 MG Orally Active 1 tablet Once a day Vitamin D3 ND 90892735829 1000 UNIT Active 1 capsule Orally Once a day Toviaz [facility] 57494433434 8 MG Orally Active 1 tablet Once a day Eliquis [facility] 13923034300 5 MG Orally Active 1 tablet twice a day Crestor [facility] 12181892468 40 MG Active 1 EACH ONCE A DAY HydrALAZINE HCl [facility] 63849088262 50 MG Orally Active 1 tablet Four times a with food day Cyanocobalamin [facility] [address]-58 1000 MCG/15ML Active 15 ml Orally Once a day Omeprazole [facility] 39116585947 40 MG orally Active 1 EACH daily in AM ONCE A DAY HydrALAZINE HCl [facility] 13595134669 100 MG Orally December 05, Active as Three times a 2018 day Coreg [facility] 87167136705 25 MG Orally Active not defined Results No Known Results Summary Purpose eClinicalWorks Submission
[2019-01-01] MEDS ORDERED: CEFTRIAXONE/SWI 1gm 1 GM/10 ML SYR ONE (19:39)
[2019-01-01] MEDS ORDERED: NA CHLORIDE 0.9% 1,000 ML ONE ×2 (19:39→21:34)
[2019-01-01] MEDS ORDERED: ONDANSETRON 4 MG/2 ML VIAL ONE (19:39)
[2019-01-01 20:15] LABS: Absolute Lymphocytes (CBC) 1.9 K/uL (0.7-4.9); Absolute Monocytes 0.9 K/uL (0.1-1.3); Absolute Neutrophil 4.7 K/uL (1.8-8.0); Basophils % 3.1 % (0-1.3); Eosinophils % 1.7 % (0-4.4); Hematocrit 38.1 % (36.0-45.0); Lymphocytes % 23.9 % (15.3-44.8); MPV 7.7 fL (7.6-11.3); Monocytes % 11.3 % (3.3-12.3); RBC Red Blood Cell Count 3.99 M/uL (3.86-4.86)
[2019-01-01 20:17] LABS: Protime INR 1.13
--- NOTE | 2019-01-01 20:22 | RAD REPORT ---
EXAM DESCRIPTION: Diane Single View01/01/2019 8:07 pm CLINICAL HISTORY: Chest pain COMPARISON: December 31, 2018 FINDINGS: The lungs appear clear of acute infiltrate. The heart is mildly enlarged. Postsurgical changes involve the chest. IMPRESSION: No acute abnormalities displayed
[2019-01-01 20:29] LABS: Urine Blood NEGATIVE (NEG); Urine Glucose TRACE (NEG); Urine Protein NEGATIVE (NEG)
[2019-01-01 20:35] LABS: ALT/SGPT 32 U/L (12-78); AST/SGOT 23 U/L (15-37); Albumin 3.4 g/dL (3.4-5.0); Alkaline Phosphatase 107 U/L (45-117); BUN Blood Urea Nitrogen 15 mg/dL (7-18); Bicarbonate 27 mmol/L (21-32); Bilirubin Direct 0.1 mg/dL (0-0.2); Bilirubin Total 0.4 mg/dL (0.2-1.0); Creatine Phosphokinase 53 U/L (26-192); Glucose Level 174 mg/dL (74-106); Potassium 4.4 mmol/L (3.5-5.1); Protein, Total 7.1 g/dL (6.4-8.2); Sodium Level 127 mmol/L (136-145)
[2019-01-01 20:36] LABS: C-Reactive Protein < 2.90 mg/L (<3.00); CKMB Creatine Kinase MB 1.3 ng/mL (0.3-3.6); Lipase 148 U/L (73-393)
[2019-01-01 20:49] LABS: Urine Bacteria <20 /HPF (<20); Urine Culture Reflex Order NOT NEEDED; Urine RBC NONE SEEN /HPF (NONE SEEN)
--- NOTE | 2019-01-01 21:17 | ER ---
Nurse's Notes [facility] Name: Radha Lara Age: 83 yrs Sex: Female : 1935 Arrival Date: 01/01/2019 Time: 18:42 Bed 23 Private MD: Diagnosis: Cyclical vomiting, intractable Presentation: 01/01 18:56 Presenting complaint: Patient states: N/V since yesterday. Seen in this ER for same aj complaints. Given RX for zofran. Care prior to arrival: None. 18:56 Method Of Arrival: Ambulatory aj 18:56 Acuity: YOLANDE 3 aj 20:21 Transition of care: patient was not received from another setting of care. Onset of mg2 symptoms was January 01, 2019. Risk Assessment: Do you want to hurt yourself or someone else? Patient reports no desire to harm self or others. Initial Sepsis Screen: Does the patient meet any 2 criteria? No. Patient's initial sepsis screen is negative. Does the patient have a suspected source of infection? No. Patient's initial sepsis screen is negative. Triage Assessment: 18:57 General: Appears in no apparent distress. uncomfortable, ill, Behavior is calm, aj cooperative, appropriate for age. Pain: Denies pain. Neuro: Level of Consciousness is awake, alert, obeys commands, Oriented to person, place, time, situation, Appropriate for age. Respiratory: Airway is patent Respiratory effort is even, unlabored, Respiratory pattern is regular, symmetrical. GI: Reports nausea, vomiting. Derm: Skin is intact, is healthy with good turgor, Skin is pink, warm \T\ dry. normal. Historical: - Allergies: 18:57 Aspirin; aj 18:57 Clonidine; aj 18:57 Codeine; aj 18:57 Ibuprofen; aj 18:57 Iodinated Contrast Media - IV Dye; aj 18:57 Lisinopril; aj 18:57 Niacin; aj 18:57 Nitrofurantoin; aj 18:57 nitrous oxide; aj 18:57 Unable to obtain; aj 18:57 vicoden; aj - Home Meds: 20:25 carvedilol 25 mg Oral tab 1 tab 2 times per day [Active]; cranberry Oral twice a day mg2 [Active]; Crestor 40 mg Oral tab once daily [Active]; Eliquis 5 mg Oral tab 2 times per day [Active]; hydralazine 50 mg Oral tab 1 tab 4 times per day [Active]; magnesium oxide 500 mg Oral cap [Active]; metformin 500 mg Oral Tb24 1 tab 2 times per day [Active]; Multiple Vitamins Oral tab daily [Active]; omeprazole 40 mg Oral cpDR 1 cap once daily [Active]; Probiotic Oral [Active]; ranitidine HCl 75 mg Oral tab as needed [Active]; valsartan 160 mg Oral tab 1 tab once daily [Active]; verapamil 240 mg Oral TbER 1 tab once daily [Active]; Vitamin B-12 2,000 mcg Oral TbER daily [Active]; Vitamin D3 1,000 unit Oral chew daily [Active]; vitamin E Oral once daily [Active]; - PMHx: 20:28 acid reflux; Atrial Fib; Diabetes - NIDDM; Hyperlipidemia; Hypertension; Kidney stones; mg2 TIA; UTI; - Immunization history:: Flu vaccine status is unknown. - Social history:: Smoking status: unknown Patient/guardian denies using alcohol, street drugs, The patient lives with family. - Ebola Screening: : No symptoms or risks identified at this time. - Family history:: not pertinent. Screenin:18 Abuse screen: Denies threats or abuse. Denies injuries from another. Nutritional mg2 screening: No deficits noted. Tuberculosis screening: No symptoms or risk factors identified. Fall Risk IV access (20 points). Assessment: 20:19 General: Appears in no apparent distress. comfortable, Behavior is calm, cooperative. mg2 Pain: Complains of pain in abdomen Pain does not radiate. Pain currently is 2 out of 10 on a pain scale. Neuro: Level of Consciousness is awake, alert, obeys commands, Oriented to person, place, time, situation. Cardiovascular: Capillary refill < 3 seconds Patient's skin is warm and dry. Respiratory: Airway is patent Respiratory effort is even, unlabored, Respiratory pattern is regular, symmetrical. GI: Reports lower abdominal pain, upper abdominal pain, nausea, vomiting. : Reports history of UTI. EENT: No signs and/or symptoms were reported regarding the EENT system. Derm: Skin is intact, is healthy with good turgor, Skin is pink, warm \T\ dry. normal. Musculoskeletal: Circulation, motion, and sensation intact. Capillary refill < 3 seconds. 23:22 Reassessment: LAILA Gross will call me back to receive the report as per MALVIN Schneider. mg2 Vital Signs: 18:57 BP 196 / 91; Pulse 79; Resp 20; Temp 97.9; Pulse Ox 96% on R/A; Weight 63.05 kg; Height aj 5 ft. 2 in. (157.48 cm); 20:27 BP 183 / 63; Pulse 71; Resp 18; Pulse Ox 95% on R/A; mg2 21:54 BP 159 / 56; Pulse 78; Resp 18; Pulse Ox 95% on R/A; mg2 23:45 BP 159 / 54; Pulse 72; Resp 18; Temp 97.8; Pulse Ox 95% on R/A; Pain 0/10; mg2 18:57 Body Mass Index 25.42 (63.05 kg, 157.48 cm) aj ED Course: 18:42 Patient arrived in ED. tw3 18:56 Triage completed. aj 18:57 Arm band placed on left wrist. Patient placed in waiting room. aj 18:59 Jonathan Galicia MD is Attending Physician. ma2 19:01 Gage Bajwa, LAILA is Primary Nurse. mg2 20:10 Chest Single View XRAY In Process Unspecified. EDMS 20:17 No provider procedures requiring assistance completed. Inserted saline lock: 20 gauge mg2 in right hand, using aseptic technique. Blood collected. 20:22 Patient has correct armband on for positive identification. mg2 21:16 Mattie Lemus MD is Hospitalizing Provider. ma2 23:44 Patient admitted, IV remains in place. mg2 Administered Medications: 19:59 Drug: Zofran 4 mg Route: IVP; Site: right hand; mg2 22:11 Follow up: Response: No adverse reaction; Marked relief of symptoms mg2 20:00 Drug: NS 0.9% (30 ml/kg) 30 ml/kg Route: IV; Rate: bolus; Site: right hand; mg2 23:23 Follow up: Response: No adverse reaction; IV Status: Completed infusion; IV Intake: mg2 1800ml 20:00 Drug: Rocephin 1 grams Route: IV; Rate: calculated rate; Site: right hand; mg2 20:19 Follow up: given \\ 2019 mg2 23:23 Follow up: Response: No adverse reaction; IV Status: Completed infusion mg2 Point of Care Testing: Blood Glucose: 20:30 Blood Glucose: 166 mg/dL; mg2 Ranges: Intake: 23:23 IV: 1800ml; Total: 1800ml. mg2 Outcome: 21:16 Decision to Hospitalize by Provider. ma2 23:44 Admitted to Tele accompanied by tech, via wheelchair, room 421, with chart, Report mg2 called to LAILA Gross 23:44 Condition: stable 23:44 Instructed on the need for admit, Demonstrated understanding of instructions. 23:57 Patient left the ED. mg2 Signatures: Dispatcher [employer] Amaya Weems RN RN aj Wade, Tia tw3 Jonathan Galicia MD MD ma2 Gage Bajwa RN RN mg2 Corrections: (The following items were deleted from the chart) 18:57 18:56 Presenting complaint: Patient states: N/V since yesterday. Seen in this ER for aj same complaints aj
--- NOTE | 2019-01-01 21:18 | EDPHYS ---
Physician Documentation [facility] Name: Radha Lara Age: 83 yrs Sex: Female : 1935 Arrival Date: 01/01/2019 Time: 18:42 Bed 23 Private MD: ED Physician Jonathan Galicia HPI: 01/01 21:13 This 83 yrs old Female presents to ER via Ambulatory with complaints of ma2 Weakness, Vomiting. 21:13 This 83 yrs old Female presents to ER via Ambulatory with complaints of ma2 Weakness, Vomiting. 21:13 This 83 yrs old Female presents to ER via Ambulatory with complaints of ma2 Weakness, Vomiting. 21:13 This 83 yrs old Female presents to ER via Ambulatory with complaints of ma2 Weakness, Vomiting. 21:13 This 83 yrs old Female presents to ER via Ambulatory with complaints of ma2 Weakness, Vomiting. 21:13 Onset: The symptoms/episode began/occurred gradually, 1 week(s) ago. Associated signs ma2 and symptoms: Pertinent positives: nausea, Pertinent negatives: dizziness, fever, seizure, syncope, loss of vision. Severity of symptoms: At their worst the symptoms were moderate in the emergency department the symptoms are unchanged. The patient has experienced similar episodes in the past. Historical: - Allergies: 18:57 Aspirin; aj 18:57 Clonidine; aj 18:57 Codeine; aj 18:57 Ibuprofen; aj 18:57 Iodinated Contrast Media - IV Dye; aj 18:57 Lisinopril; aj 18:57 Niacin; aj 18:57 Nitrofurantoin; aj 18:57 nitrous oxide; aj 18:57 Unable to obtain; aj 18:57 vicoden; aj - Home Meds: 20:25 carvedilol 25 mg Oral tab 1 tab 2 times per day [Active]; cranberry Oral twice a day mg2 [Active]; Crestor 40 mg Oral tab once daily [Active]; Eliquis 5 mg Oral tab 2 times per day [Active]; hydralazine 50 mg Oral tab 1 tab 4 times per day [Active]; magnesium oxide 500 mg Oral cap [Active]; metformin 500 mg Oral Tb24 1 tab 2 times per day [Active]; Multiple Vitamins Oral tab daily [Active]; omeprazole 40 mg Oral cpDR 1 cap once daily [Active]; Probiotic Oral [Active]; ranitidine HCl 75 mg Oral tab as needed [Active]; valsartan 160 mg Oral tab 1 tab once daily [Active]; verapamil 240 mg Oral TbER 1 tab once daily [Active]; Vitamin B-12 2,000 mcg Oral TbER daily [Active]; Vitamin D3 1,000 unit Oral chew daily [Active]; vitamin E Oral once daily [Active]; - PMHx: 20:28 acid reflux; Atrial Fib; Diabetes - NIDDM; Hyperlipidemia; Hypertension; Kidney stones; mg2 TIA; UTI; - Immunization history:: Flu vaccine status is unknown. - Social history:: Smoking status: unknown Patient/guardian denies using alcohol, street drugs, The patient lives with family. - Ebola Screening: : No symptoms or risks identified at this time. - Family history:: not pertinent. ROS: 21:13 Constitutional: Negative for fever, chills, and weight loss. ma2 21:13 Abdomen/GI: Positive for nausea, vomiting, Negative for abdominal cramps, abdominal distension, rectal pain, flatulence. 21:13 All other systems are negative. Exam: 21:13 Constitutional: This is a well developed, well nourished patient who is awake, alert, ma2 and in no acute distress. Head/Face: Normocephalic, atraumatic. ENT: Nares patent. No nasal discharge, no septal abnormalities noted. Tympanic membranes are normal and external auditory canals are clear. Oropharynx with no redness, swelling, or masses, exudates, or evidence of obstruction, uvula midline. Mucous membranes moist. Chest/axilla: Normal chest wall appearance and motion. Nontender with no deformity. No lesions are appreciated. Cardiovascular: Regular rate and rhythm with a normal S1 and S2. No gallops, murmurs, or rubs. Normal PMI, no JVD. No pulse deficits. Respiratory: Lungs have equal breath sounds bilaterally, clear to auscultation and percussion. No rales, rhonchi or wheezes noted. No increased work of breathing, no retractions or nasal flaring. Abdomen/GI: Soft, non-tender, with normal bowel sounds. No distension or tympany. No guarding or rebound. No evidence of tenderness throughout. Skin: Warm, dry with normal turgor. Normal color with no rashes, no lesions, and no evidence of cellulitis. MS/ Extremity: Pulses equal, no cyanosis. Neurovascular intact. Full, normal range of motion. Neuro: Awake and alert, GCS 15, oriented to person, place, time, and situation. Cranial nerves II-XII grossly intact. Motor strength 5/5 in all extremities. Sensory grossly intact. Cerebellar exam normal. Normal gait. Vital Signs: 18:57 BP 196 / 91; Pulse 79; Resp 20; Temp 97.9; Pulse Ox 96% on R/A; Weight 63.05 kg; Height aj 5 ft. 2 in. (157.48 cm); 20:27 BP 183 / 63; Pulse 71; Resp 18; Pulse Ox 95% on R/A; mg2 21:54 BP 159 / 56; Pulse 78; Resp 18; Pulse Ox 95% on R/A; mg2 23:45 BP 159 / 54; Pulse 72; Resp 18; Temp 97.8; Pulse Ox 95% on R/A; Pain 0/10; mg2 18:57 Body Mass Index 25.42 (63.05 kg, 157.48 cm) aj MDM: 18:59 Patient medically screened. [facility] 21:13 Data reviewed: vital signs, EMS record, lab test result(s), EKG. Counseling: I had a [facility] detailed discussion with the patient and/or guardian regarding: the historical points, exam findings, and any diagnostic results supporting the discharge/admit diagnosis, the presence of at least one elevated blood pressure reading (>120/80) during this emergency department visit, the need for outpatient follow up. Response to treatment: the patient's symptoms have mildly improved after treatment. ED course: will admit for intractable nausea and vomiitng second visit to er . 01/01 19:20 Order name: C-Reactive Protein [facility] 01/01 19:20 Order name: Urine Culture [facility] 01/01 19:20 Order name: Basic Metabolic Panel [facility] 01/01 19:20 Order name: Blood Culture Adult (2) [facility] 01/01 19:20 Order name: CBC with Diff [facility] 01/01 19:20 Order name: Ckmb [facility] 01/01 19:20 Order name: CPK; Complete Time: 21:00 [facility] 01/01 19:20 Order name: Lactate; Complete Time: 21:00 [facility] 01/01 19:20 Order name: LFT's; Complete Time: 21:00 [facility] 01/01 19:20 Order name: Lipase; Complete Time: 21:00 [facility] 01/01 19:20 Order name: Procalcitonin [facility] 01/01 19:20 Order name: Protime (+inr); Complete Time: 21:00 [facility] 01/01 19:20 Order name: Ptt, Activated; Complete Time: 21:00 [facility] 01/01 19:20 Order name: Troponin (emerg Dept Use Only); Complete Time: 21:00 [facility] 01/01 19:20 Order name: Urine Microscopic Only; Complete Time: 21:00 [facility] 01/01 19:20 Order name: Chest Single View XRAY; Complete Time: 21:00 [facility] 01/01 19:20 Order name: Accucheck; Complete Time: 20:17 [facility] 01/01 19:20 Order name: Cardiac monitoring; Complete Time: 20:01 [facility] 01/01 19:20 Order name: EKG - Nurse/Tech; Complete Time: 20:17 [facility] 01/01 19:23 Order name: C-Reactive Protein; Complete Time: 21:00 [facility] 01/01 19:23 Order name: Urine Culture [facility] 01/01 19:23 Order name: Basic Metabolic Panel; Complete Time: 21:00 [facility] 01/01 19:23 Order name: Blood Culture [facility] 01/01 19:23 Order name: CBC with Automated Diff [facility] 01/01 19:23 Order name: CKMB Creatine Kinase MB; Complete Time: 21:00 [facility] 01/01 20:25 Order name: Urine Dipstick--Ancillary (enter results); Complete Time: 21:00 [facility] 01/01 21:44 Order name: CBC Smear Scan [facility] 01/01 19:20 Order name: IV Saline Lock - Large Bore; Complete Time: 20:01 [facility] 01/01 19:20 Order name: Labs collected and sent; Complete Time: 20:01 [facility] 01/01 19:20 Order name: O2 Per Protocol; Complete Time: 20:01 [facility] 01/01 19:20 Order name: O2 Sat Monitoring; Complete Time: 20:01 [facility] 01/01 19:20 Order name: Urine Dipstick-Ancillary (obtain specimen); Complete Time: 20:29 ma2 Administered Medications: 19:59 Drug: Zofran 4 mg Route: IVP; Site: right hand; mg2 22:11 Follow up: Response: No adverse reaction; Marked relief of symptoms mg2 20:00 Drug: NS 0.9% (30 ml/kg) 30 ml/kg Route: IV; Rate: bolus; Site: right hand; mg2 23:23 Follow up: Response: No adverse reaction; IV Status: Completed infusion; IV Intake: mg2 1800ml 20:00 Drug: Rocephin 1 grams Route: IV; Rate: calculated rate; Site: right hand; mg2 20:19 Follow up: given \T\ 2019 mg2 23:23 Follow up: Response: No adverse reaction; IV Status: Completed infusion mg2 Point of Care Testing: Blood Glucose: 20:30 Blood Glucose: 166 mg/dL; mg2 Ranges: Critical Glucose Levels:Adult <50 mg/dl or >400 mg/dl <40 mg/dl or >180 mg/dl Disposition: 01/01/19 21:16 Hospitalization ordered by Mattie Lemus for Observation. Preliminary diagnosis is Cyclical vomiting, intractable. - Bed requested for Telemetry/MedSurg (observation). - Status is Observation. mg2 - Condition is Stable. - Problem is new. - Symptoms are unchanged. UTI on Admission? No Signatures: Dispatcher [employer] EDMS Ingrid Taylor RN RN Amaya Mason RN RN aj Alzahri, Mohammad, MD MD ma2 Gage Bajwa RN RN mg2 Corrections: (The following items were deleted from the chart) 23:03 21:16 Hospitalization Ordered by Mattie Lemus MD for Observation. Preliminary mw diagnosis is Cyclical vomiting, intractable. Bed requested for Telemetry/MedSurg (observation). Status is Observation. Condition is Stable. Problem is new. Symptoms are unchanged. UTI on Admission? No. ma2 23:57 23:03 01/01/2019 21:16 Hospitalization Ordered by Mattie Lemus MD for Observation. mg2 Preliminary diagnosis is Cyclical vomiting, intractable. Bed requested for Telemetry/MedSurg (observation). Status is Observation. Condition is Stable. Problem is new. Symptoms are unchanged. UTI on Admission? No. mw
[2019-01-01 21:43] LABS: Blood Morphology Comment NOT SEEN (NOT SEEN); Platelet Estimate ADEQ; Urine White Blood Cell Casts OK
--- NOTE | 2019-01-01 23:14 | P.HP ---
Certification for Inpatient Patient admitted to: Observation With expected LOS: <2 Midnights Practitioner: I am a practitioner with admitting privileges, knowledge of patient current condition, hospital course, and medical plan of care. Services: Services provided to patient in accordance with Admission requirements found in Title 42 Section 412.3 of the Code of Federal Regulations Patient History Date of Service: 01/01/19 Reason for admission: hyponatremia History of Present Illness: Ms Lara is an 83 years old woman with multiple medical problems, who start about 4 days ago, with painful urination associated with nausea. She went to see her PCP, was diagnosed with UTI, she was prescribed Bactrim. Yesterday she came to ED because, weakness and nausea, but the patient was discharged home. Today, she came back to ED because her symptoms got worse. Lab work remarkable for normal WBC count, sodium level 127. Lactate and procalcitonin normal. Allergies aspirin Adverse Reaction (Verified 06/28/17 21:58) RAPID HEART RATE clonidine Adverse Reaction (Verified 06/28/17 21:58) Rapid Heart Rate codeine [Codeine] Adverse Reaction (Verified 06/28/17 21:58) CONFUSION hydrocodone bitartrate [From Vicodin] Adverse Reaction (Verified 06/28/17 21:58) CONFUSION iodine Adverse Reaction (Verified 06/28/17 21:58) NAUSEA lisinopril Adverse Reaction (Verified 06/28/17 21:58) COUGH niacin Adverse Reaction (Verified 06/28/17 21:58) Rash nitrofurantoin Adverse Reaction (Verified 11/14/17 15:31) Itching/Hives/Rash nitrous oxide [Nitrous Oxide] Adverse Reaction (Verified 06/28/17 21:58) Shortness of breath iodine dye Allergy (Intermediate, Uncoded 06/28/17 21:58) Itching/Hives/Rash Home Medications: Carvedilol [Coreg*] 25 mg PO BID 05/22/14 Cranberry Conc/Ascorbic Acid [Cranberry 12,600 mg Softgel] 4,200 mg PO BID 05/22 Multivitamin [One-Daily Multi-Vitamin] 1 each PO DAILY 05/22/14 Omeprazole [Prilosec] 1 tab PO DAILY 05/22/14 Vitamin E [Vitamin E*] 400 iu PO DAILY 09/30/14 Apixaban [Eliquis] 5 mg PO BID 11/13/15 Metformin HCl [Glucophage*] 1 tab PO BID 11/13/15 Verapamil HCl [Verapamil ER] 240 mg PO BEDTIME 11/13/15 Cyanocobalamin [Vitamin B-12*] 2,000 mcg PO DAILY 11/17/15 Magnesium Oxide [Magnesium] 500 mg PO DAILY 05/15/16 Rosuvastatin Calcium [Crestor] 40 mg PO DAILY 05/15/16 Valsartan/Hydrochlorothiazide [Valsartan-Hctz 160-12.5 mg Tab] 1 each PO DAILY 05/15/16 raNITIdine HCl [Ranitidine HCl] 75 mg PO DAILY PRN 05/15/16 Acetaminophen [Tylenol Arthritis] 1 tab PO Q6H PRN 11/14/17 Cholecalciferol (Vitamin D3) [Vitamin D3] 1,000 unit PO DAILY 11/14/17 L.acidoph,Paracasei, B.lactis [Probiotic] 1 each PO BEDTIME 11/14/17 Hydralazine [Apresoline*] 100 mg PO TID #90 tab 11/15/17 - Past Medical/Surgical History Diabetic: Yes -: Kidney Stones -: TIA -: PUMONARY EMBOLISM -: DM -: CAD -: tonsillectomy -: colon polyps -: CABG -: Cholecystectomy -: Hysterectomy -: Bone Spurs removed -: Triple Bypass -: 3 Stents in right kidney - Family History Mother -: Heart disease, Other (see notes) Notes: [place]. Age of 64 Father -: Heart disease Notes: Age of 77 - Social History Alcohol use: No CD- Drugs: No Caffeine use: No Place of Residence: Home Review of Systems 10-point ROS is otherwise unremarkable Physical Examination - Physical Exam General: Alert, In no apparent distress HEENT: Atraumatic, PERRLA, Mucous membr. moist/pink, EOMI, Sclerae nonicteric Neck: Supple, 2+ carotid pulse no bruit, No LAD, Without JVD or thyroid abnormality Respiratory: Clear to auscultation bilaterally, Normal air movement Cardiovascular: Normal S1 S2, No gallops Gastrointestinal: Normal bowel sounds, No tenderness Musculoskeletal: No tenderness Integumentary: No rashes Neurological: Normal speech, Normal strength at 5/5 x4 extr, Normal tone, Normal affect Lymphatics: No axilla or inguinal lymphadenopathy - Studies Laboratory Data (last 24 hrs) 01/01/19 19:55: PT 13.3 H, INR 1.13, APTT 35.5 01/01/19 19:55: WBC 7.8, Hgb 12.7, Hct 38.1, Plt Count 186 01/01/19 19:55: Sodium 127 L, Potassium 4.4, BUN 15, Creatinine 0.63, Glucose 174 H, Total Bilirubin 0.4, AST 23, ALT 32, Alkaline Phosphatase 107, Lipase 148 Assessment and Plan - Problems (Diagnosis) (1) Hyponatremia Current Visit: Yes Status: Acute (2) Atrial fibrillation Onset Date: 11/13/15 Current Visit: No Status: Chronic Qualifiers: Atrial fibrillation type: chronic (3) Diabetes mellitus Onset Date: 11/13/15 Current Visit: No Status: Chronic Qualifiers: Diabetes mellitus type: type 2 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 Will start gently IV normal saline. Continue SSI for BS control. - Advance Directives Does patient have a Living Will: Yes Does patient have a Durable POA for Healthcare: Yes - Code Status/Comfort Care Code Status Assessed: Yes Code Status: Full Code
[2019-01-02] MEDS ORDERED: ONDANSETRON 4 MG/2 ML VIAL IV PRN (00:04)
[2019-01-02] MEDS ORDERED: D50W 25 GM/50 ML SYRINGE IV PRN (00:04)
[2019-01-02] MEDS ORDERED: GLUCAGON 1 MG/VIAL IM PRN (00:04)
[2019-01-02] MEDS: NA CHLORIDE 0.9% 1,000 ML IV SCH ×2 (00:33→09:08)
[2019-01-02 01:32] VITALS: O2SAT 98; BMI 25.0
[2019-01-02] MEDS: HYDRALAZINE HCL 20 MG/ML VIAL IV PRN ×4 (05:37→17:46)
[2019-01-02] MEDS: INSULIN -REGULAR HUMAN 50 UNIT/0.5 ML ML SQ SCH ×3 (07:30→16:08)
[2019-01-02 07:46] LABS: BUN Blood Urea Nitrogen 8 mg/dL (7-18); Bicarbonate 24 mmol/L (21-32); Glucose Level 126 mg/dL (74-106); Potassium 4.2 mmol/L (3.5-5.1); Sodium Level 135 mmol/L (136-145)
[2019-01-02 08:02] LABS: Absolute Lymphocytes (CBC) 2.1 K/uL (0.7-4.9); Absolute Monocytes 0.8 K/uL (0.1-1.3); Absolute Neutrophil 4.4 K/uL (1.8-8.0); Basophils % 0.9 % (0-1.3); Eosinophils % 1.4 % (0-4.4); Lymphocytes % 28.6 % (15.3-44.8); MPV 8.2 fL (7.6-11.3); Monocytes % 10.5 % (3.3-12.3); RBC Red Blood Cell Count 3.91 M/uL (3.86-4.86)
[2019-01-02 17:23] VITALS: BP 182/61; TEMP 97.6
--- NOTE | 2019-01-02 23:25 | DS ---
Date of Discharge: 01/02/2019 Code Status: Full. Discharge Diagnoses: 1.Hyponatremia, resolved. 2.Atrial fibrillation, chronic. 3.Diabetes mellitus, type 2, without long-term use of insulin, with hyperglycemia. 4.Essential hypertension. 5.History of TIA. 6.Coronary artery disease, [place] artery, [place] heart, status post CABG. Hospital Course: The patient is an 83-year-old female with hypertension, coronary artery disease, di abetes, comes in with UTI. The patient was started on Bactrim by her PCP, came to the ER the day andres or to admission, however, was sent home. Returned to the ED on the day of admission for worsening sy mptoms. The patient was found to have a sodium level of 127. White count was normal. Repeat urine was clear and urine culture has been negative to date. The patient was not septic and lactate and pr ocalcitonin were negative. The patient was started on IV fluids. Sodium improved to 135. The patie nt antibiotics were held as repeat urine was negative. The patient was asymptomatic, did not have an y further dysuria, frequency, or pain in her flank, which are her usual symptoms. The patient does h ave history of recurrent UTIs. Has seen Dr. Benavides in the past. Overall, the patient did well. She was able to ambulate. She was able to tolerate her diet, did not have any further symptoms. Sodium had normalized. She was then cleared for discharge, sent home in a stable condition. Activity: As tolerated. Medications: As per medication reconciliation list. Followup: Follow up with primary care physician in 2-3 days. Follow up with urologist in 2-4 weeks. Return to ER for worsening condition. Physical Examination: General: Awake, alert, oriented x3. No acute distress. CV: S1, S2. Irregularly irregular. Peripheral pulses present. Respiratory: Moving air well bilaterally. Abdomen: Soft, nontender, nondistended. Positive bowel sounds. Extremities: No clubbing, cyanosis, or edema. Neurologic: Nonfocal. SA/MODL Voice ID: [id number] Report ID: [id number]
--- NOTE | 2019-01-03 06:20 | EKG ---
Test Date: 2019-01-01 Test Time: 20:06:32 Filter Assembler: MEASUREMENT RESULTS: Intervals: Rate: 71 [place]: QRSD: 106 QT: 382 QTc: 415 [place]: P: [place]: QRS: 157 T: 46 INTERPRETIVE STATEMENTS: Suspect arm lead reversal, interpretation assumes no reversal Atrial fibrillation Minimal voltage criteria for LVH, may be normal variant Anterolateral infarct, age undetermined Abnormal ECG Compared to ECG 12/31/2018 12:41:18 ST (T wave) deviation no longer present Possible ischemia no longer present Myocardial infarct finding still present Electronically Signed On 01-03-19 06:19:57 CDT by Ayaan Ni
== END 2019-01-02 19:35 | disposition home or self-care (01) ==
LOC: ER 18:38 → ERHOLD 23:16 → 4TH 23:44
PROVIDERS: ADMIT Internal Medicine; ATTEND Family Medicine
DX: E87.1 Hypo-osmolality and hyponatremia (principal); N39.0 Urinary tract infection, site not specified; G43.A1 Cyclical vomiting, in migraine, intractable; I48.2 Chronic atrial fibrillation; E11.65 Type 2 diabetes mellitus with hyperglycemia; I10 Essential (primary) hypertension; I25.10 Atherosclerotic heart disease of native coronary artery without angina pectoris; K21.9 Gastro-esophageal reflux disease without esophagitis; E78.5 Hyperlipidemia, unspecified; Z79.84 Long term (current) use of oral hypoglycemic drugs; Z79.01 Long term (current) use of anticoagulants; Z79.899 Other long term (current) drug therapy; Z95.1 Presence of aortocoronary bypass graft; Z86.73 Personal history of transient ischemic attack (TIA), and cerebral infarction without residual deficits; Z86.711 Personal history of pulmonary embolism
CPT/HCPCS: 96365; 96368; 93005; 87040 ×2; 87088; 85025 ×2; 80048 ×2; 36415; 82550; 85610; 82962 ×4; 80076; 83605; 85730; 84484; 82553; 83690; 84145; 86140; 71045; 96375; 99285; 96366; J0360 ×4; J0696; J7030 ×4; J2405; G0378 ×2; 81003; 81015; 87086

== ENCOUNTER 2019-01-26 11:35 | Emergency (ER) | payer OTHER ==
--- OUTSIDE RECORDS SUMMARY | 2019-01-26 11:40 | XMS REPORT ---
:1935 [facility] Address [address] [place] [address] [address] [place] [address] Care Team Providers Name Role Phone DORY MEJIA Unavailable Unavailable Problems This patient has no known problems. Allergies, Adverse Reactions, Alerts This patient has no known allergies or adverse reactions. Medications This patient has no known medications. Results Test Description Test Time Test Comments Text Results Atomic Results Result Comments NV, ANGIOGRAM, 2017-11-22 11:37:00 Reason for FINAL REPORT PATIENT ID: CEREBRAL exam:->TIAs [id number] November 22, 2017 CLINICAL HISTORY: 82 years [...] guidance and strict sterile technique a 4 Bulgarian femoral sheath was inserted into the right common femoral artery. Through the sheath a 4 Bulgarian vertebral catheter was then advanced over the [...] MDReport Verified Date/Time: 11/22/2017 11:37:47 Reading Location: [facility] Y018 Neuro Angio Reading Room -GLUCOSE METER 2017-11-22 07:43:00 Test Item Value Reference Range Comments POC-GLUCOSE METER (BEAKER) (test 149 mg/dL 70-110 TESTED AT [facility] [address] [facility] psax=2876) [facility] [address] [id number] 06:46:00 Test Item Value Reference Range Comments MAGNESIUM (BEAKER) (test ckrv=821) 2.0 mg/dL 1.6-2.6 BASIC METABOLIC [id number] 06:46:00 Test Item Value Reference Range Comments SODIUM (BEAKER) (test 133 meq/L 136-145 agee=287) POTASSIUM (BEAKER) (test 4.4 meq/L 3.5-5.1 fxcm=173) CHLORIDE (BEAKER) (test 99 meq/L 98-107 yrva=074) CO2 (BEAKER) (test 25 meq/L 22-29 tcuq=547) BLOOD UREA NITROGEN 11 mg/dL 7-21 (BEAKER) (test mwmr=241) CREATININE (BEAKER) (test 0.65 mg/dL 0.57-1.25 qsrp=918) GLUCOSE RANDOM (BEAKER) 162 mg/dL 70-105 (test oyvc=972) CALCIUM (BEAKER) (test 9.5 mg/dL 8.4-10.2 pfah=522) EGFR (BEAKER) (test 87 mL/min/1.73 sq m ESTIMATED GFR IS NOT dctz=2096) ACCURATE CREATININE CLEARANCE IN PREDICTING GLOMERULAR FILTRATION RATE. ESTIMATED GFR IS NOT APPLICABLE FOR DIALYSIS PATIENTS. [id number] 06:33:00 Test Item Value Reference Range Comments PROTIME (BEAKER) (test qpzv=547) 15.5 seconds 11.7-14.7 INR (BEAKER) (test pgoq=239) 1.2 <=5.9 PARTIAL THROMBOPLASTIN TIME (BEAKER) (test 35.9 seconds 22.5-36.0 eqlu=623) RECOMMENDED COUMADIN/WARFARIN INR THERAPY RANGESSTANDARD DOSE: 2.0 - 3.0 Includes: PROPHYLAXIS forvenous thrombosis, systemic embolization; TREATMENT for venous thrombosis and/or pulmonary embolus.HIGH RISK: Target INR is 2.5-3.5 for patients with mechanical heart valves.POCT-GLUCOSE [id number] 06:22:00 Test Item Value Reference Range Comments POC-GLUCOSE METER (BEAKER) 161 mg/dL 70-110 TESTED AT [facility] [address] [facility] (test hxkk=1621) [facility] [address] POCT-GLUCOSE [id number] 02:08:00 Test Item Value Reference Range Comments POC-GLUCOSE METER (BEAKER) 182 mg/dL 70-110 TESTED AT [facility] [address] [facility] (test fqwu=1791) [facility] [address] POCT-GLUCOSE [id number] 19:30:00 Test Item Value Reference Range Comments POC-GLUCOSE METER (BEAKER) 146 mg/dL 70-110 TESTED AT [facility] [address] [facility] (test zokw=8244) [facility] [address] CT, CAROTID, [id number] 14:54:00Please include aortaFINAL REPORT CT angiogram of [...] the left ICA terminus. There is also ooog-kg-jcntjcek multifocal narrowing of the right carotid siphon. [...] of the right carotid siphon. Signed: [facility] Verified Date/Time: 11/21/2017 14:54:26 Reading Location: [facility] Radiology Reading Room [facility] [id number] 14:54:00FINAL REPORT CT angiogram of the upper [...] the left ICA terminus. There is also yddc-fy-jisbmnqh multifocal narrowing of the right carotid siphon. [...] Mcdaniels Verified Date/Time: 11/21/2017 14:54:26 Reading Location: [facility] Radiology Reading Room POCT-GLUCOSE [id number] 11:50:00 Test Item Value Reference Range Comments POC-GLUCOSE METER (BEAKER) 153 mg/dL 70-110 TESTED AT [facility] [address] [facility] (test rawq=4940) [facility] [address] POCT-GLUCOSE [id number] 08:08:00 Test Item Value Reference Range Comments POC-GLUCOSE METER (BEAKER) 125 mg/dL 70-110 TESTED AT [facility] [address] [facility] (test yxwu=0895) [facility] [address] [id number] 06:43:00 Test Item Value Reference Range Comments MAGNESIUM (BEAKER) (test tvta=832) 2.1 mg/dL 1.6-2.6 BASIC METABOLIC [id number] 06:43:00 Test Item Value Reference Range Comments SODIUM (BEAKER) (test 136 meq/L 136-145 atbs=999) POTASSIUM (BEAKER) (test 4.0 meq/L 3.5-5.1 ogiu=224) CHLORIDE (BEAKER) (test 101 meq/L 98-107 outy=642) CO2 (BEAKER) (test 27 meq/L 22-29 pwrt=389) BLOOD UREA NITROGEN 12 mg/dL 7-21 (BEAKER) (test hden=613) CREATININE (BEAKER) (test 0.68 mg/dL 0.57-1.25 kpmn=892) GLUCOSE RANDOM (BEAKER) 122 mg/dL 70-105 (test ycpt=405) CALCIUM (BEAKER) (test 9.5 mg/dL 8.4-10.2 satp=180) EGFR (BEAKER) (test 83 mL/min/1.73 sq m ESTIMATED GFR IS NOT pyox=4620) ACCURATE CREATININE CLEARANCE IN PREDICTING GLOMERULAR FILTRATION RATE. ESTIMATED GFR IS NOT APPLICABLE FOR DIALYSIS PATIENTS. TSH/FREE T4 IF [id number] 22:12:00 Test Item Value Reference Range Comments THYROID STIMULATING HORMONE (BEAKER) (test 4.66 uIU/mL 0.35-4.94 vehw=788) [id number] 21:54:00 Test Item Value Reference Range Comments MAGNESIUM (BEAKER) (test wilg=961) 2.0 mg/dL 1.6-2.6 BASIC METABOLIC [id number] 21:54:00 Test Item Value Reference Range Comments SODIUM (BEAKER) (test 134 meq/L 136-145 dxsa=219) POTASSIUM (BEAKER) (test 4.1 meq/L 3.5-5.1 mrlr=142) CHLORIDE (BEAKER) (test 101 meq/L 98-107 fqot=216) CO2 (BEAKER) (test 24 meq/L 22-29 fxyk=844) BLOOD UREA NITROGEN 11 mg/dL 7-21 (BEAKER) (test loek=706) CREATININE (BEAKER) (test 0.65 mg/dL 0.57-1.25 tmaf=417) GLUCOSE RANDOM (BEAKER) 126 mg/dL 70-105 (test iizm=945) CALCIUM (BEAKER) (test 9.5 mg/dL 8.4-10.2 wcfs=808) EGFR (BEAKER) (test 87 mL/min/1.73 sq m ESTIMATED GFR IS NOT qfbu=8557) ACCURATE CREATININE CLEARANCE IN PREDICTING GLOMERULAR FILTRATION RATE. ESTIMATED GFR IS NOT APPLICABLE FOR DIALYSIS PATIENTS. LIPID [id number] 21:54:00 Test Item Value Reference Range Comments TRIGLYCERIDES (BEAKER) (test zjfc=266) 70 mg/dL CHOLESTEROL (BEAKER) (test hgeb=192) 101 mg/dL HDL CHOLESTEROL (BEAKER) (test cxlx=340) 39 mg/dL LDL CHOLESTEROL CALCULATED (BEAKER) (test 48 mg/dL ywzy=092) Triglyceride Reference Range: Low Risk <150 Borderline 150- 199 High Risk 200-499 Very High Risk >=500Cholesterol Reference Range: Low Risk <200 Borderline 200-239 High Risk > 240HDL Cholesterol Reference Range: Low Risk >=60 High Risk <40LDL Cholesterol Reference Range: Optimal <100 Near Optimal 100-129 Borderline 130-159 High 160-189 Very High >=190POCT-GLUCOSE [id number] 21:35:00 Test Item Value Reference Range Comments POC-GLUCOSE METER (BEAKER) 128 mg/dL 70-110 TESTED AT [address] (test eufp=3610) [facility] [address] POCT-GLUCOSE [id number] 17:55:00 Test Item Value Reference Range Comments POC-GLUCOSE METER (BEAKER) 113 mg/dL 70-110 TESTED AT [address] (test saie=8824) [facility] [address] POCT-GLUCOSE [id number] 12:32:00 Test Item Value Reference Range Comments POC-GLUCOSE METER (JANNETH) 120 mg/dL 70-110 [facility] [place] [address] [facility] cgvd[facility]4461[facility] [address] MR, MRA, BRAIN, WITHOUT [id number] 11:33:00Reason for exam:-> Ischemic Stroke EvaluationFINAL REPORT MRA Head and Neck CLINICAL HISTORY: CVA TECHNIQUE: MRA of the head utilizing 3-D hqro-ts-grbzzo technique, with 3-D reconstructions. MRA of the [...] There is no other evidence for a [place] of [place] proximal branch vessel occlusion. There [...] Verified Date/Time: 11/20/2017 11:33:14 Reading Location : [facility] C013V Neuro Reading Room MR, MRA, NECK, WITHOUT IV [id number] 11:33: 00Reason for exam:->Ischemic Stroke EvaluationFINAL REPORT MRA Head and Neck CLINICAL HISTORY: CVA TECHNIQUE: MRA of the head utilizing 3-D bxjj-cr-seugqm technique, with 3-D reconstructions. MRA of the neck utilizing 2-D and 3-D rehy-lm-aqucsj technique, with 3-D reconstructions. COMPARISON: None FINDINGS: [...] There is no other evidence for a [place] of [place] proximal branch vessel occlusion. There [...] Verified Date/Time: 11/20/2017 11 :33:14 Reading Location: [address] Neuro Reading Room MR, BRAIN, WITHOUT [id number] 11:05:00Reason for exam:->Ischemic Stroke EvaluationFINAL REPORT MRI [...] MDReport Verified Date/Time: 11/20/2017 11:05:05 Reading Location: [address] Neuro Reading Room HEMOGLOBIN [id number] 09:08:00 Test Item Value Reference Range Comments HEMOGLOBIN A1C (BEAKER) (test dvyx=798) 6.1 % 4.3-6.1 POCT-GLUCOSE [id number] 08:27:00 Test Item Value Reference Range Comments POC-GLUCOSE METER ([facility]) 125 mg/dL 70-110 TESTED AT [facility] [address] [facility] (test ogas=8669) [facility] [address] TSH/FREE T4 IF [id number] 07:47:00 Test Item Value Reference Range Comments THYROID STIMULATING HORMONE (BEAKER) (test 5.97 uIU/mL 0.35-4.94 yvfz=372) VITAMIN [id number] 07:44:00 Test Item Value Reference Range Comments VITAMIN B12 (BEAKER) (test qypb=257) 857 pg/mL 213-816 CBC W/PLT COUNT & AUTO [id number] 06:47:00 Test Item Value Reference Range Comments WHITE BLOOD CELL COUNT (BEAKER) (test bzne=720) 8.3 K/ L 3.5-10.5 RED BLOOD CELL COUNT (BEAKER) (test ixkb=343) 4.11 M/ L 3.93-5.22 HEMOGLOBIN (BEAKER) (test hpfd=650) 13.4 GM/DL 11.2-15.7 HEMATOCRIT (BEAKER) (test yuwp=211) 39.7 % 34.1-44.9 MEAN CORPUSCULAR VOLUME (BEAKER) (test onxe=781) 96.6 fL 79.4-94.8 MEAN CORPUSCULAR HEMOGLOBIN (BEAKER) (test 32.6 pg 25.6-32.2 sqne=048) MEAN CORPUSCULAR HEMOGLOBIN CONC (BEAKER) (test 33.8 GM/DL 32.2-35.5 kfni=002) RED CELL DISTRIBUTION WIDTH (BEAKER) (test 12.1 % 11.7-14.4 ujvr=486) PLATELET COUNT (BEAKER) (test goqv=721) 209 K/CU MM 150-450 MEAN PLATELET VOLUME (BEAKER) (test jsgl=587) 9.7 fL 9.4-12.3 NUCLEATED RED BLOOD CELLS (BEAKER) (test 0 /100 WBC 0-0 qelm=585) NEUTROPHILS RELATIVE PERCENT (BEAKER) (test 49 % tmee=972) LYMPHOCYTES RELATIVE PERCENT (BEAKER) (test 35 % lehh=489) MONOCYTES RELATIVE PERCENT (BEAKER) (test 12 % lhaf=819) EOSINOPHILS RELATIVE PERCENT (BEAKER) (test 4 % mwcc=957) BASOPHILS RELATIVE PERCENT (BEAKER) (test 1 % iabe=775) NEUTROPHILS ABSOLUTE COUNT (BEAKER) (test 4.02 K/ L 1.56-6.13 ffea=045) LYMPHOCYTES ABSOLUTE COUNT (BEAKER) (test 2.89 K/ L 1.18-3.74 jwlx=855) MONOCYTES ABSOLUTE COUNT (BEAKER) (test 0.95 K/ L 0.24-0.36 nsja=691) EOSINOPHILS ABSOLUTE COUNT (BEAKER) (test 0.35 K/ L 0.04-0.36 igvp=830) BASOPHILS ABSOLUTE COUNT (BEAKER) (test 0.04 K/ L 0.01-0.08 jtbz=780) IMMATURE GRANULOCYTES-RELATIVE PERCENT (BEAKER) 0 % 0-1 (test jgei=1989) POCT-GLUCOSE [id number] 22:09:00 Test Item Value Reference Range Comments POC-GLUCOSE METER (BEAKER) 130 mg/dL 70-110 TESTED AT [facility] [address] [facility] (test ultm=5137) [facility] [address]
--- OUTSIDE RECORDS SUMMARY | 2019-01-26 11:40 | XMS REPORT ---
[...] Status Dosage System Date Date Vitamin D3 [facility] 33577223337 1000 UNIT Active 1 capsule Orally Once a day HydrALAZINE HCl [facility] 76858054268 100 MG Orally December 05, Active as Three times a 2018 day Omeprazole [facility] 47329377704 40 MG orally Active 1 EACH daily in AM ONCE A DAY Plavix ND 58670832579 75 MG Orally Active 1 tablet Once a day Cyanocobalamin [facility] [address]-32 1000 MCG/15ML Active 15 ml Orally Once a day Valsartan ND 06677758645 160 MG Orally Active 1 tablet Once a day Verapamil HCl ER ND 18816256618 240 MG Orally Active 1 capsule Once a day Coreg [facility] 85765488584 25 MG Orally Active not defined HydrALAZINE HCl [facility] 14216424591 50 MG Orally Active 1 tablet Four times a with food day Eliquis [facility] 24159794106 5 MG Orally Active 1 tablet twice a day Myrbetriq [facility] 93484722011 25 MG Orally Inactive 1 tablet Once a day Metformin HCl [facility] 18488711610 500 MG Orally Active 1 tablet Twice a day with meals Toviaz [facility] 46856289641 8 MG Orally Active 1 tablet Once a day Crestor [facility] 38588888237 40 MG Active 1 EACH ONCE A DAY Results No Known Results Summary Purpose eClinicalWorks Submission
--- OUTSIDE RECORDS SUMMARY | 2019-01-26 11:40 | XMS REPORT ---
[...] Dosage System Date Date Verapamil HCl ER [facility] 11791834140 240 MG Orally Active 1 capsule Once a day Bactrim DS [facility] 14355805255 800-160 MG January Active 1 tablet Orally Twice a , 2017 Metformin HCl [facility] 50600755910 500 MG Orally Active 1 tablet Twice a day with meals Valsartan [facility] 55901116185 160 MG Orally Active 1 tablet Once a day Plavix ND 00950873408 75 MG Orally Active 1 tablet Once a day Vitamin D3 ND 84014459579 1000 UNIT Active 1 capsule Orally Once a day Toviaz [facility] 31630865623 8 MG Orally Active 1 tablet Once a day Eliquis [facility] 28573893086 5 MG Orally Active 1 tablet twice a day Crestor [facility] 89068461057 40 MG Active 1 EACH ONCE A DAY HydrALAZINE HCl [facility] 05441448503 50 MG Orally Active 1 tablet Four times a with food day Cyanocobalamin [facility] [address]-29 1000 MCG/15ML Active 15 ml Orally Once a day Omeprazole [facility] 23121073368 40 MG orally Active 1 EACH daily in AM ONCE A DAY HydrALAZINE HCl [facility] 13516490436 100 MG Orally December 05, Active as Three times a 2018 day Coreg [facility] 55128538458 25 MG Orally Active not defined Results No Known Results Summary Purpose eClinicalWorks Submission
--- OUTSIDE RECORDS SUMMARY | 2019-01-26 11:41 | XMS REPORT ---
:1935 Author Organization eClinicalWorks Care Team Providers Name Role Phone Britt, Na Provider Role Unavailable Allergies No Known Allergies Problems Problem Type Condition Code Onset Dates Condition Status Problem Abnormal mammogram R92.8 Active Problem Atherosclerosis I70.90 Active Problem Type 2 diabetes E11.9 Active Problem Elevated TSH R79.89 Active Problem Chronic fatigue R53.82 Active Problem Mild depression F32.0 Active Problem Stenosis of left carotid artery I65.22 Active Problem History of TIA (transient ischemic Z86.73 Active attack) Problem Hospital discharge follow-up Z09 Active Problem Other speech disturbance R47.89 Active Problem Obstructive sleep apnea G47.33 Active Problem 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 Active Problem Recurrent urinary tract infection N39.0 Active Problem Overactive bladder N32.81 Active Problem Hypertension I10 Active Problem Allergic rhinitis J30.9 Active Problem GERD (gastroesophageal reflux K21.9 Active disease) Problem Hyperlipidemia E78.5 Active Problem Obesity E66.9 Active Problem Chronic a-fib I48.2 Active Medications No Known Medications Results No Known Results Summary Purpose eClinicalWorks Submission
--- OUTSIDE RECORDS SUMMARY | 2019-01-26 11:41 | XMS REPORT ---
[...] End Status Dosage System Date Date Macrobid [facility] 95502124056 100 MG Orally Sep 08, Aug Active 1 capsule every 12 hrs 2018 22, with food 2018 HydrALAZINE HCl [facility] 49703176485 100 MG Orally December 05, Active as Three times a 2018 day Cyanocobalamin [facility] [address]-17 1000 MCG/15ML Active 15 ml Orally Once a day Metformin HCl [facility] 43308525717 500 MG Orally Active 1 tablet Twice a day with meals Bactrim DS ND 15311989103 800-160 MG January Active 1 tablet Orally Twice a 30, day 2017 Irbesartan [facility] 61985434362 150 MG Orally Active 1 tablet Once a day Crestor [facility] 08149027130 40 MG Active 1 EACH ONCE A DAY Valsartan [facility] 00487797521 160 MG Orally Active 1 tablet Once a day HydrALAZINE HCl [facility] 09973612229 50 MG Orally Active 1 tablet Four times a with food day Eliquis [facility] 34466800456 5 MG Orally Active 1 tablet twice a day Metformin HCl [facility] 81208487187 500 Active TAKE 1 TABLET BY MOUTH TWICE DAILY Crestor [facility] 21916781917 40 Active 1 EACH ONCE A DAY Coreg [facility] 96153049236 25 MG Orally Active not defined Omeprazole [facility] 07801515413 40 Active 1 EACH ONCE A DAY Toviaz [facility] 87330163676 8 MG Orally Active 1 tablet Once a day Plavix [facility] 61352409242 75 MG Orally Active 1 tablet Once a day Verapamil HCl ER [facility] 05174432676 240 MG Orally Active 1 capsule Once a day Omeprazole [facility] 32189339188 40 MG orally Active 1 EACH daily in AM ONCE A DAY Vitamin D3 [facility] 90679628412 1000 UNIT Active 1 capsule Orally Once a day Results No Known Results Summary Purpose eClinicalWorks Submission
--- OUTSIDE RECORDS SUMMARY | 2019-01-26 11:41 | XMS REPORT ---
[...] End Status Dosage System Date Date Omeprazole [facility] 60342562608 40 MG orally Active 1 EACH daily in AM ONCE A DAY HydrALAZINE HCl [facility] 13595498492 50 MG Orally Active 1 tablet Four times a with food day Vitamin D3 [facility] 01641045773 1000 UNIT Active 1 capsule Orally Once a day Cyanocobalamin [facility] [address]-05 1000 MCG/15ML Active 15 ml Orally Once a day Metformin HCl [facility] 45586562291 500 MG Orally Active 1 tablet Twice a day with meals Omeprazole [facility] 06336150761 40 Active 1 EACH ONCE A DAY Coreg [facility] 26306862364 25 MG Orally Active not defined Bactrim DS [facility] 15468996126 800-160 MG January Active 1 tablet Orally Twice a , 2017 Toviaz [facility] 47604640052 8 MG Orally Active 1 tablet Once a day Valsartan [facility] 54171139764 160 MG Orally Active 1 tablet Once a day Verapamil HCl ER [facility] 98947646210 240 MG Orally Active 1 capsule Once a day Eliquis [facility] 04457743603 5 MG Orally Active 1 tablet twice a day Metformin HCl [facility] 45047112047 500 Active TAKE 1 TABLET BY MOUTH TWICE DAILY HydrALAZINE HCl [facility] 09415421419 100 MG Orally December 05, Active as Three times a 2017 day Crestor [facility] 16148096690 40 Active 1 EACH ONCE A DAY Crestor [facility] 55437945298 40 MG Active 1 EACH ONCE A DAY Plavix [facility] 91580578759 75 MG Orally Active 1 tablet Once a day Irbesartan [facility] 13980823997 150 MG Orally Active 1 tablet Once a day Results No Known Results Summary Purpose eClinicalWorks Submission
--- OUTSIDE RECORDS SUMMARY | 2019-01-26 11:41 | XMS REPORT ---
[...] End Status Dosage System Date Date Fluconazole [facility] 89445480712 150 MG Orally Sep 15, Active 1 tablet today one tab a week 2018 and may repeat one tab in 1 week if no improvement Results No Known Results Summary Purpose eClinicalWorks Submission
--- OUTSIDE RECORDS SUMMARY | 2019-01-26 11:41 | XMS REPORT ---
[...] R79.89 Active Problem Chronic fatigue R53.82 Active Assessment Acute urinary tract infection N39.0 Active Assessment Nasal sinus congestion R09.81 Active Problem Mild depression F32.0 Active Problem [...] K21.9 Active disease) Problem Hyperlipidemia E78.5 Active Assessment Allergic rhinitis J30.9 Active Problem Obesity E66.9 Active Problem Chronic a-fib I48.2 Active Medications Medication Code Code Instructions Start End Status Dosage System Date Date Verapamil HCl ER [facility] 12553316430 240 MG Orally Active 1 capsule Once a day Metformin HCl [facility] 01263694500 500 Active TAKE 1 TABLET BY MOUTH TWICE DAILY Metformin HCl [facility] 09283846728 500 MG Orally Active 1 tablet with Twice a day meals Eliquis [facility] 74235604234 5 MG Orally Active 1 tablet twice a day Coreg ND 79060016391 25 MG Orally Active not defined Crestor [facility] 20405844078 40 Active 1 EACH ONCE A DAY Vitamin D3 [facility] 79799152393 1000 UNIT Active 1 capsule Orally Once a day HydrALAZINE HCl ND 83663595910 100 MG Orally December 05, Active as directed Three times a 2017 day Bactrim DS [facility] 32829150858 800-160 MG January Active 1 tablet Orally Twice a , [address] [facility] 65459106067 500 Active TAKE 1 TABLET BY MOUTH TWICE DAILY HydrALAZINE HCl [facility] 49320298904 50 MG Orally Active 1 tablet with Four times a food day Fluconazole ND 27569676697 150 MG Orally Sep 15, Active 1 tablet one tab a week 2019 today and may repeat one tab in 1 week if no improvement Carvedilol [facility] 61109695752 25 MG Orally Active as directed Irbesartan [facility] 84951775302 150 MG Orally Active 1 tablet Once a day Omeprazole [facility] 84632121804 40 Active 1 EACH ONCE A DAY Crestor [facility] 13716080024 40 Active 1 EACH ONCE A DAY Valsartan [facility] 19970431625 160 MG Orally Active 1 tablet Once a day Cyanocobalamin [facility] [address]-97 1000 MCG/15ML Active 15 ml Orally Once a day Bactrim DS [facility] 25944227864 800-160 MG December Active 1 tablet Orally Twice a , [address] [facility] 44356199863 75 MG Orally Active 1 tablet Once a day Omeprazole [facility] 05153500713 40 MG orally Active 1 EACH ONCE A daily in AM DAY Crestor [facility] 38471437117 40 MG Active 1 EACH ONCE A DAY Toviaz [facility] 86237895059 8 MG Orally Active 1 tablet Once a day Results No Known Results Summary Purpose eClinicalWorks Submission
--- OUTSIDE RECORDS SUMMARY | 2019-01-26 11:41 | XMS REPORT ---
:1935 Author Organization eClinicalWorks Care Team Providers Name Role Phone Britt, Na Provider Role Unavailable Allergies, Adverse Reactions, Alerts Substance Reaction Event Type N.K.D.A. Info Not Available Non Drug Allergy Problems Problem Type Condition Code Onset Dates Condition Status Assessment Weakness R53.1 Active Assessment Chronic fatigue R53.82 Active Assessment Chronic a-fib I48.2 Active Assessment Mild depression F32.0 Active Assessment Hyperlipidemia E78.5 Active Problem Hyperlipidemia E78.5 Active Assessment Hypertension I10 Active Problem Chronic a-fib I48.2 Active Assessment Type 2 diabetes E11.9 Active Problem Abnormal mammogram R92.8 Active Problem Atherosclerosis I70.90 Active Problem Type 2 diabetes E11.9 Active Problem Elevated TSH R79.89 Active Problem Chronic fatigue R53.82 Active Assessment Hospital discharge follow-up Z09 Active Problem Mild depression F32.0 Active Assessment Hyponatremia E87.1 Active Problem Stenosis of left carotid artery [...] K21.9 Active disease) Problem Obesity E66.9 Active Medications Medication Code Code Instructions Start End Status Dosage System Date Date Carvedilol ND 07913818708 25 MG Orally Active as directed Omeprazole ND 29169652782 40 MG orally Active 1 EACH ONCE A daily in AM DAY Vitamin D3 ND 18228519011 1000 UNIT Active 1 capsule Orally Once a day Metformin HCl ND 65659214642 500 MG Orally Active 1 tablet with Twice a day meals Valsartan ND 62710496711 160 MG Orally Active 1 tablet Once a day HydrALAZINE HCl ND 80034129052 50 MG Orally Active 1 tablet with Four times a food day Eliquis [facility] 48008466861 5 MG Orally Active 1 tablet twice a day Crestor [facility] 62778563224 40 Active 1 EACH ONCE A DAY HydrALAZINE HCl [facility] 55832134583 100 MG Orally December 05, Active as directed Three times a 2017 day Fluconazole ND 21806377256 150 MG Orally Sep 15, Active 1 tablet one tab a week 2019 today and may repeat one tab in 1 week if no improvement Verapamil HCl ER [facility] 73221384820 240 MG Orally Active 1 capsule Once a day Irbesartan [facility] 63131701896 150 MG Orally Active 1 tablet Once a day Coreg [facility] 87188954611 25 MG Orally Active not defined Omeprazole [facility] 71303945049 40 Active 1 EACH ONCE A DAY Toviaz [facility] 41065415317 8 MG Orally Active 1 tablet Once a day Metformin HCl [facility] 38612615696 500 Active TAKE 1 TABLET BY MOUTH TWICE DAILY Cyanocobalamin [facility] [address]-86 1000 MCG/15ML Active 15 ml Orally Once a day Crestor [facility] 48042953338 40 MG Active 1 EACH ONCE A DAY Metformin HCl [facility] 31775710757 500 Active TAKE 1 TABLET BY MOUTH TWICE DAILY Bactrim DS [facility] 99424733695 800-160 MG January Active 1 tablet Orally Twice a , 2017 Bactrim DS [facility] 32711309796 800-160 MG December Active 1 tablet Orally Twice a , 2018 Plavix [facility] 32831448429 75 MG Orally Active 1 tablet Once a day Results Name Result Date Reference Range Unit Abnormality Flag Basic Metabolic Panel ----Calcium Level 8.5 20190111 8.5-10.1 mg/dL ----Glomerular Filtration 86 20190111 =/>90 mL L Rate ----Creatinine 0.66 20190111 0.55-1.3 mg/dL ----BUN Blood Urea Nitrogen 17 20190111 7-18 mg/dL ----Glucose Level 109 20190111 74-106 mg/dL H ----Sodium Level 138 20190111 136-145 mmol/L ----Potassium 4.2 20190111 3.5-5.1 mmol/L ----Chloride Level 104 20190111 98-107 mmol/L ----Bicarbonate 26 20190111 21-32 mmol/L Summary Purpose eClinicalWorks Submission
[2019-01-26 12:49] LABS: Absolute Lymphocytes (CBC) 2.1 K/uL (0.7-4.9); Basophils % 0.6 % (0-1.3); Eosinophils % 1.4 % (0-4.4); Hematocrit 39.6 % (36.0-45.0); Lymphocytes % 26.8 % (15.3-44.8); Monocytes % 10.8 % (3.3-12.3); RBC Red Blood Cell Count 4.15 M/uL (3.86-4.86)
[2019-01-26 12:55] LABS: Protime INR 1.46
[2019-01-26 13:15] LABS: ALT/SGPT 27 U/L (12-78); AST/SGOT 17 U/L (15-37); Albumin 3.5 g/dL (3.4-5.0); Alkaline Phosphatase 93 U/L (45-117); BUN Blood Urea Nitrogen 13 mg/dL (7-18); Bicarbonate 30 mmol/L (21-32); Bilirubin Direct 0.1 mg/dL (0-0.2); Bilirubin Total 0.5 mg/dL (0.2-1.0); Glucose Level 117 mg/dL (74-106); Lipase 126 U/L (73-393); Magnesium 2.3 mg/dL (1.8-2.4); NT PRO-BNP 1744 pg/mL (<450); Potassium 3.8 mmol/L (3.5-5.1); Protein, Total 7.2 g/dL (6.4-8.2); Sodium Level 137 mmol/L (136-145); Troponin (Emerg Dept Use Only) < 0.02 ng/mL (0.0-0.045)
--- NOTE | 2019-01-26 13:24 | RAD REPORT ---
EXAM DESCRIPTION: Diane Single View01/26/2019 1:17 pm CLINICAL HISTORY: Shortness of breath COMPARISON: January 01, 2019 FINDINGS: The lungs appear clear of acute infiltrate. The heart is mildly to moderately enlarged. Postsurgical changes involve the chest. IMPRESSION: No acute abnormalities displayed
[2019-01-26 14:03] LABS: Urine Blood NEGATIVE (NEG); Urine Glucose NEGATIVE (NEG); Urine Protein NEGATIVE (NEG)
[2019-01-26 14:05] LABS: Urine Bacteria NONE SEEN /HPF (<20); Urine Culture Reflex Order NOT NEEDED; Urine RBC NONE SEEN /HPF (NONE SEEN)
[2019-01-26] MEDS ORDERED: HYDRALAZINE HCL 20 MG/ML VIAL ONE (14:17)
--- NOTE | 2019-01-26 15:02 | ER ---
Nurse's Notes [facility] Name: Radha Lara Age: 83 yrs Sex: Female : 1935 Arrival Date: 01/26/2019 Time: 11:39 Bed 3 Private MD: Elli Britt Diagnosis: Essential (primary) hypertension;Weakness;Vomiting Presentation: 01/26 12:09 Presenting complaint: Malaise and nausea x 2 days, pain in neck and low back, SOB, hb N/V/D, and generalized weakness today. Denies abdominal pain/fever. Transition of care: patient was not received from another setting of care. 12:09 Method Of Arrival: Wheelchair hb 12:10 Onset of symptoms was January 25, 2019. Risk Assessment: Do you want to hurt yourself or hb someone else? Patient reports no desire to harm self or others. Care prior to arrival: None. 12:10 Acuity: YOLANDE 3 hb 12:36 Initial Sepsis Screen: Does the patient meet any 2 criteria? No. Patient's initial ph sepsis screen is negative. Does the patient have a suspected source of infection? No. Patient's initial sepsis screen is negative. Historical: - Allergies: 12:12 Aspirin; hb 12:12 Clonidine; hb 12:12 Codeine; hb 12:12 Ibuprofen; hb 12:12 Iodinated Contrast Media - IV Dye; hb 12:12 Lisinopril; hb 12:12 Niacin; hb 12:12 Nitrofurantoin; hb 12:12 nitrous oxide; hb 12:12 vicoden; hb - Home Meds: 12:12 carvedilol 25 mg Oral tab 1 tab 2 times per day [Active]; cranberry Oral twice a day hb [Active]; Crestor 40 mg Oral tab once daily [Active]; Eliquis 5 mg Oral tab 2 times per day [Active]; hydralazine 50 mg Oral tab 1 tab 4 times per day [Active]; magnesium oxide 500 mg Oral cap [Active]; metformin 500 mg Oral Tb24 1 tab 2 times per day [Active]; Multiple Vitamins Oral tab daily [Active]; omeprazole 40 mg Oral cpDR 1 cap once daily [Active]; Probiotic Oral [Active]; ranitidine HCl 75 mg Oral tab as needed [Active]; valsartan 160 mg Oral tab 1 tab once daily [Active]; verapamil 240 mg Oral TbER 1 tab once daily [Active]; Vitamin B-12 2,000 mcg Oral TbER daily [Active]; Vitamin D3 1,000 unit Oral chew daily [Active]; vitamin E Oral once daily [Active]; - PMHx: 12:12 Atrial Fib; Diabetes - NIDDM; acid reflux; Hyperlipidemia; Hypertension; Kidney stones; hb TIA; UTI; - Immunization history:: Adult Immunizations up to date. - Social history:: Smoking status: Patient/guardian denies using tobacco. - Ebola Screening: : No symptoms or risks identified at this time. Screenin:00 Abuse screen: Denies injuries from another. Nutritional screening: No deficits noted. ph Tuberculosis screening: No symptoms or risk factors identified. Fall Risk None identified. Assessment: 12:45 General: Appears in no apparent distress. uncomfortable, slender, well groomed, ph Behavior is calm, cooperative, appropriate for age, Denies fever, chills. Pain: Complains of pain in back of neck and back. Neuro: Level of Consciousness is awake, alert, obeys commands, Oriented to person, place, time, situation. Cardiovascular: Capillary refill < 3 seconds in bilateral fingers Patient's skin is warm and dry. Respiratory: Airway is patent Respiratory effort is even, unlabored. GI: Abdomen is round non-distended, Reports nausea, vomiting. : Reports pain in lower back Denies burning with urination, urinary frequency. Derm: Skin is intact, Skin is pink, warm \T\ dry. Musculoskeletal: Circulation, motion, and sensation intact. Range of motion: intact in all extremities. 14:00 Reassessment: Patient appears in no apparent distress at this time. Patient and/or ph family updated on plan of care and expected duration. Pain level reassessed. Patient is alert, oriented x 3, equal unlabored respirations, skin warm/dry/pink. 15:00 Reassessment: Patient appears in no apparent distress at this time. Patient and/or ph family updated on plan of care and expected duration. Pain level reassessed. Patient is alert, oriented x 3, equal unlabored respirations, skin warm/dry/pink. Vital Signs: 12:10 BP 214 / 72; Pulse 74; Resp 16; Temp 98.1(TE); Pulse Ox 100% on R/A; Weight 63.05 kg; hb Height 5 ft. 2 in. (157.48 cm); Pain 5/10; 13:38 BP 222 / 51; Pulse 64; Resp 18; Pulse Ox 100% on R/A; ph 13:53 BP 195 / 60 LA Supine (man/); Pulse 66; Resp 16; Pulse Ox 98% on R/A; ph 14:12 BP 173 / 60; Pulse 73; Resp 16; Pulse Ox 98% on R/A; aj 12:10 Body Mass Index 25.42 (63.05 kg, 157.48 cm) hb ED Course: 11:39 Patient arrived in ED. rg4 11:39 Elli Britt MD is Private Physician. rg4 12:10 Triage completed. hb 12:10 Arm band placed on. hb 12:12 John Macedo NP is PHCP. pm1 12:12 Hari Simmons MD is Attending Physician. pm1 12:13 Linette Julien RN is Primary Nurse. ph 12:30 Patient has correct armband on for positive identification. Placed in gown. Bed in low ph position. Call light in reach. pegger on. Pulse ox on. NIBP on. Door closed. Noise minimized. Warm blanket given. Pillow given. Head of bed lowered. 12:40 Inserted saline lock: 22 gauge in right forearm, using aseptic technique. Blood aj collected. 13:14 X-ray completed. Portable x-ray completed in exam room. Patient tolerated procedure jb2 well. 13:17 XRAY Chest (1 view) In Process Unspecified. EDMS 14:59 Elli Britt MD is Referral Physician. pm1 15:25 No provider procedures requiring assistance completed. IV discontinued, intact, ph bleeding controlled, No redness/swelling at site. Pressure dressing applied. Administered Medications: 14:04 Drug: hydrALAZINE 10 mg Route: IV; Rate: calculated rate; Site: right forearm; aj 15:00 Follow up: Response: No adverse reaction; Blood pressure is lowered; IV Status: ph Completed infusion Outcome: 15:00 Discharge ordered by . pm1 15:27 Patient left the ED. ph 15:27 Discharged to home via wheelchair, with family. ph 15:27 Condition: improved 15:27 Discharge instructions given to patient, family, Instructed on discharge instructions, follow up and referral plans. Demonstrated understanding of instructions, follow-up care. Signatures: Dispatcher [employer] Amaya Weems RN RN aj Buechter, Jesse jbLinette Skelton RN RN ph Marinas, Patrick, HOLE PUNCHER STRAP HOLE PUNCHER STRAP pm1 Deepthi Pablo RN RN hb Garcia, Rubi rg4
--- NOTE | 2019-01-26 15:04 | EDPHYS ---
Physician Documentation [facility] Name: Radha Lara Age: 83 yrs Sex: Female : 1935 Arrival Date: 01/26/2019 Time: 11:39 Bed 3 Private MD: Elli Britt ED Physician Hair Simmons HPI: 01/26 12:35 This 83 yrs old Female presents to ER via Wheelchair with complaints of pm1 Generalized Weakness, Neck Pain, <24hrs Old, Back Pain, Vomiting. 12:35 The patient presents to the emergency department with weakness of the entire body, pm1 generalized weakness. Onset: The symptoms/episode began/occurred yesterday. Associated signs and symptoms: Pertinent positives: vomit x 1, loose stools x 2 this AM, Pertinent negatives: chills, fever, headache, abdominal pain. Severity of symptoms: Pain is currently a 0 / 10. Patient's baseline: Neuro: alert and fully oriented, Motor: no deficits, Ambulation: walks without assistance. One month ago admission to hospital due to nausea and vomiting with electrolyte changes. Historical: - Allergies: 12:12 Aspirin; hb 12:12 Clonidine; hb 12:12 Codeine; hb 12:12 Ibuprofen; hb 12:12 Iodinated Contrast Media - IV Dye; hb 12:12 Lisinopril; hb 12:12 Niacin; hb 12:12 Nitrofurantoin; hb 12:12 nitrous oxide; hb 12:12 vicoden; hb - Home Meds: 12:12 carvedilol 25 mg Oral tab 1 tab 2 times per day [Active]; cranberry Oral twice a day hb [Active]; Crestor 40 mg Oral tab once daily [Active]; Eliquis 5 mg Oral tab 2 times per day [Active]; hydralazine 50 mg Oral tab 1 tab 4 times per day [Active]; magnesium oxide 500 mg Oral cap [Active]; metformin 500 mg Oral Tb24 1 tab 2 times per day [Active]; Multiple Vitamins Oral tab daily [Active]; omeprazole 40 mg Oral cpDR 1 cap once daily [Active]; Probiotic Oral [Active]; ranitidine HCl 75 mg Oral tab as needed [Active]; valsartan 160 mg Oral tab 1 tab once daily [Active]; verapamil 240 mg Oral TbER 1 tab once daily [Active]; Vitamin B-12 2,000 mcg Oral TbER daily [Active]; Vitamin D3 1,000 unit Oral chew daily [Active]; vitamin E Oral once daily [Active]; - PMHx: 12:12 Atrial Fib; Diabetes - NIDDM; acid reflux; Hyperlipidemia; Hypertension; Kidney stones; hb TIA; UTI; - Immunization history:: Adult Immunizations up to date. - Social history:: Smoking status: Patient/guardian denies using tobacco. - Ebola Screening: : No symptoms or risks identified at this time. ROS: 12:35 Eyes: Negative for injury, pain, redness, and discharge, ENT: Negative for injury, pm1 pain, and discharge, Cardiovascular: Negative for chest pain, palpitations, and edema. 12:35 Constitutional: Negative for fever, chills, and weight loss. 12:35 Back: Negative for injury and pain, : Negative for injury, bleeding, discharge, and swelling, MS/Extremity: Negative for injury and deformity, Skin: Negative for injury, rash, and discoloration. 12:35 Neck: Positive for tenderness, of the left trapezius and right trapezius, Negative for stiffness, swelling. 12:35 Respiratory: Positive for occasional sensation like she cant catch her breath. No current shortness of breath. 12:35 Abdomen/GI: Positive for nausea and vomiting x 1. Loose stool x 2 this AM. 12:35 Neuro: Positive for generalized weakness. Exam: 12:35 Constitutional: This is a well developed, well nourished patient who is awake, alert, pm1 and in no acute distress. Head/Face: Normocephalic, atraumatic. Eyes: Pupils equal round and reactive to light, extra-ocular motions intact. Lids and lashes normal. Conjunctiva and sclera are non-icteric and not injected. Cornea within normal limits. Periorbital areas with no swelling, redness, or edema. ENT: Nares patent. No nasal discharge, no septal abnormalities noted. Tympanic membranes are normal and external auditory canals are clear. Oropharynx with no redness, swelling, or masses, exudates, or evidence of obstruction, uvula midline. Mucous membranes moist. 12:35 Chest/axilla: Normal chest wall appearance and motion. Nontender with no deformity. No lesions are appreciated. Cardiovascular: Regular rate and rhythm with a normal S1 and S2. No gallops, murmurs, or rubs. Normal PMI, no JVD. No pulse deficits. Respiratory: Lungs have equal breath sounds bilaterally, clear to auscultation and percussion. No rales, rhonchi or wheezes noted. No increased work of breathing, no retractions or nasal flaring. Abdomen/GI: Soft, non-tender, with normal bowel sounds. No distension or tympany. No guarding or rebound. No evidence of tenderness throughout. Back: No spinal tenderness. No costovertebral tenderness. Full range of motion. Skin: Warm, dry with normal turgor. Normal color with no rashes, no lesions, and no evidence of cellulitis. MS/ Extremity: Pulses equal, no cyanosis. Neurovascular intact. Full, normal range of motion. 12:35 Neck: External neck: tenderness, of the left trapezius and right trapezius, improved with massage to area. No crepitus, ROM/movement: Meningeal signs: are not present, Kernig's sign is negative, Brudzinski's sign is negative, nuchal rigidity, is not appreciated. 12:35 Neuro: Orientation: is normal, Mentation: is normal, Cranial nerves: CN II- XII are normal as tested, Cerebellar function: normal finger to nose testing, Motor: moves all fours, Sensation: is normal, no obvious gross deficits. Vital Signs: 12:10 BP 214 / 72; Pulse 74; Resp 16; Temp 98.1(TE); Pulse Ox 100% on R/A; Weight 63.05 kg; hb Height 5 ft. 2 in. (157.48 cm); Pain 5/10; 13:38 BP 222 / 51; Pulse 64; Resp 18; Pulse Ox 100% on R/A; ph 13:53 BP 195 / 60 LA Supine (man/); Pulse 66; Resp 16; Pulse Ox 98% on R/A; ph 14:12 BP 173 / 60; Pulse 73; Resp 16; Pulse Ox 98% on R/A; aj 12:10 Body Mass Index 25.42 (63.05 kg, 157.48 cm) hb MDM: 12:12 Patient medically screened. [facility] 14:58 Data reviewed: vital signs. Data interpreted: Pulse oximetry: on room air is 98 %. pm1 Interpretation: normal. Counseling: I had a detailed discussion with the patient and/or guardian regarding: the historical points, exam findings, and any diagnostic results supporting the discharge/admit diagnosis, lab results, radiology results, the need for outpatient follow up, to return to the emergency department if symptoms worsen or persist or if there are any questions or concerns that arise at home. 01/26 12:23 Order name: Basic Metabolic Panel; Complete Time: 13:33 pm01/26 12:23 Order name: CBC with Diff; Complete Time: 13:33 pm01/26 12:23 Order name: LFT's; Complete Time: 13:33 pm01/26 12:23 Order name: Magnesium; Complete Time: 13:33 pm01/26 12:23 Order name: NT PRO-BNP; Complete Time: 13:33 pm01/26 12:23 Order name: PT-INR; Complete Time: 13:33 pm01/26 12:23 Order name: Troponin (emerg Dept Use Only); Complete Time: 13:33 pm01/26 12:23 Order name: XRAY Chest (1 view); Complete Time: 13:33 pm01/26 12:23 Order name: EKG; Complete Time: 12:25 pm01/26 12:23 Order name: Cardiac monitoring; Complete Time: 13:57 pm01/26 12:23 Order name: Lipase; Complete Time: 13:33 pm01/26 12:23 Order name: Urine Microscopic Only; Complete Time: 14:10 pm01/26 13:55 Order name: Urine Dipstick--Ancillary (enter results); Complete Time: 14:10 01/26 12:23 Order name: EKG - Nurse/Tech; Complete Time: 13:57 pm01/26 12:23 Order name: IV Saline Lock; Complete Time: 12:41 pm01/26 12:23 Order name: Labs collected and sent; Complete Time: 12:41 pm01/26 12:23 Order name: O2 Per Protocol; Complete Time: 13:57 pm01/26 12:23 Order name: O2 Sat Monitoring; Complete Time: 13:57 pm01/26 12:23 Order name: Urine Dipstick-Ancillary (obtain specimen); Complete Time: 13:57 pm EC:59 Rate is 68 beats/min. Rhythm is irregular, A fib with No ectopy. No Q waves. T waves pm1 are Normal. No ST changes noted. Clinical impression: Atrial Fibrillation. Administered Medications: 14:04 Drug: hydrALAZINE 10 mg Route: IV; Rate: calculated rate; Site: right forearm; 15:00 Follow up: Response: No adverse reaction; Blood pressure is lowered; IV Status: ph Completed infusion Disposition: 01/26/19 15:00 Discharged to Home. Impression: Essential (primary) hypertension, Weakness, Vomiting. - Condition is Stable. - Discharge Instructions: Hypertension, Nausea and Vomiting, Adult, Weakness, How to Take Your Blood Pressure, [id number], DASH Eating Plan, Managing Your Hypertension. - Prescriptions for Zofran 4 mg Oral Tablet - take 1 tablet by ORAL route every 12 hours As needed; 20 tablet. - Medication Reconciliation Form, Thank You Letter, Antibiotic Education, Prescription Opioid Use form. - Follow up: Emergency Department; When: As needed; Reason: Worsening of condition. Follow up: Elli Britt MD; When: 2 - 3 days; Reason: Recheck today's complaints, Continuance of care, Re-evaluation by your physician. - Problem is new. - Symptoms have improved. Addendum: 01/31/2019 16:49 Co-signature as Attending Physician, Hari Simmons MD I agree with the assessment and c rosales plan of care. Signatures: Dispatcher [employer] EDMS Amaya Mason RN RN aj Anderson, Corey, MD MD cha Hall, Patricia, RN RN John Macedo, MANAGER TRANSPORTATION MANAGER TRANSPORTATION pm1 Deepthi Pablo RN RN Corrections: (The following items were deleted from the chart) 01/26 15:27 15:00 01/26/2019 15:00 Discharged to Home. Impression: Essential (primary) ph hypertension; Weakness; Vomiting. Condition is Stable. Forms are Medication Reconciliation Form, Thank You Letter, Antibiotic Education, Prescription Opioid Use. Follow up: Emergency Department; When: As needed; Reason: Worsening of condition. Follow up: Elli Britt; When: 2 - 3 days; Reason: Recheck today's complaints, Continuance of care, Re-evaluation by your physician. Problem is new. Symptoms have improved. pm1
[2019-01-26 15:42] VITALS: TEMP 98.1
[2019-01-26 15:43] VITALS: O2SAT 98
[2019-01-26 15:45] VITALS: BP 173/60
--- NOTE | 2019-01-26 16:42 | EKG ---
Test Date: 2019-01-26 Test Time: 12:56:13 Paper Coating Machine Operator: RIYA MEASUREMENT RESULTS: Intervals: Rate: 68 WI: QRSD: 104 QT: 420 QTc: 446 [place]: P: WI: QRS: 24 T: 127 INTERPRETIVE STATEMENTS: Atrial fibrillation Minimal voltage criteria for LVH, may be normal variant Septal infarct, age undetermined Abnormal ECG Compared to ECG 01/01/2019 20:06:32 No significant changes Electronically Signed On 01-26-19 16:41:37 CDT by Jass Lance
== END 2019-01-26 15:27 | disposition home or self-care (01) ==
LOC: ER 11:35
DX: I10 Essential (primary) hypertension (principal); R11.10 Vomiting, unspecified; E11.9 Type 2 diabetes mellitus without complications; I48.91 Unspecified atrial fibrillation; Z79.01 Long term (current) use of anticoagulants; Z88.5 Allergy status to narcotic agent; Z88.6 Allergy status to analgesic agent; Z88.8 Allergy status to other drugs, medicaments and biological substances; Z91.041 Radiographic dye allergy status
CPT/HCPCS: 96365; 93005; 85025; 80048; 36415; 83735; 85610; 80076; 84484; 83690; 83880; 71045; 99284; J0360; 81003; 81015

== ENCOUNTER 2019-02-17 13:38 | Emergency (ER) | payer OTHER ==
--- OUTSIDE RECORDS SUMMARY | 2019-02-17 13:41 | XMS REPORT ---
[...] End Status Dosage System Date Date Fluconazole VAC [id number] 150 MG Orally Sep 15, Active 1 tablet today one tab a week 2018 and may repeat one tab in 1 week if no improvement Results No Known Results Summary Purpose eClinicalWorks Submission
--- OUTSIDE RECORDS SUMMARY | 2019-02-17 13:41 | XMS REPORT ---
:1935 Author Organization [facility] Address [address] [place] [address] [address] [place] [address] Care Team Providers Name Role Phone DORY MEJIA Unavailable Unavailable Problems This patient has no known problems. Allergies, Adverse Reactions, Alerts This patient has no known allergies or adverse reactions. Medications This patient has no known medications. Results Test Description Test Time Test Comments Text Results Atomic Results Result Comments NV, ANGIOGRAM, 2017-11-22 11:37:00 Reason for FINAL REPORT PATIENT ID: CEREBRAL exam:->TIAs [id number] November 22, 2017 CLINICAL HISTORY: 82 years [...] guidance and strict sterile technique a 4 [place] femoral sheath was inserted into the right common femoral artery. Through the sheath a 4 [place] vertebral catheter was then advanced over the [...] MDReport Verified Date/Time: 11/22/2017 11:37:47 Reading Location: [facility] Y018 Neuro Angio Reading Room -GLUCOSE METER 2017-11-22 07:43:00 Test Item Value Reference Range Comments POC-GLUCOSE METER (BEAKER) (test 149 mg/dL 70-[address] [facility] [address] [facility] ggih=7858) [facility] [address] [id number] 06:46:00 Test Item Value Reference Range Comments MAGNESIUM (BEAKER) (test zvnq=713) 2.0 mg/dL 1.6-2.6 BASIC METABOLIC [id number] 06:46:00 Test Item Value Reference Range Comments SODIUM (BEAKER) (test 133 meq/L 136-145 ofrf=016) POTASSIUM (BEAKER) (test 4.4 meq/L 3.5-5.1 orsa=652) CHLORIDE (BEAKER) (test 99 meq/L 98-107 vqqa=515) CO2 (BEAKER) (test 25 meq/L 22-29 aphl=493) BLOOD UREA NITROGEN 11 mg/dL 7-21 (BEAKER) (test lehj=966) CREATININE (BEAKER) (test 0.65 mg/dL 0.57-1.25 uthg=468) GLUCOSE RANDOM (BEAKER) 162 mg/dL 70-105 (test uttb=564) CALCIUM (BEAKER) (test 9.5 mg/dL 8.4-10.2 qhbi=648) EGFR (BEAKER) (test 87 mL/min/1.73 sq m ESTIMATED GFR IS NOT lcao=5532) ACCURATE CREATININE CLEARANCE IN PREDICTING GLOMERULAR FILTRATION RATE. ESTIMATED GFR IS NOT APPLICABLE FOR DIALYSIS PATIENTS. [id number] 06:33:00 Test Item Value Reference Range Comments PROTIME (BEAKER) (test qtqw=127) 15.5 seconds 11.7-14.7 INR (BEAKER) (test fpdx=084) 1.2 <=5.9 PARTIAL THROMBOPLASTIN TIME (BEAKER) (test 35.9 seconds 22.5-36.0 ivsh=351) RECOMMENDED COUMADIN/WARFARIN INR THERAPY RANGESSTANDARD DOSE: 2.0 - 3.0 Includes: PROPHYLAXIS forvenous thrombosis, systemic embolization; TREATMENT for venous thrombosis and/or pulmonary embolus.HIGH RISK: Target INR is 2.5-3.5 for patients with mechanical heart valves.POCT-GLUCOSE [id number] 06:22:00 Test Item Value Reference Range Comments POC-GLUCOSE METER (BEAKER) 161 mg/dL 70-[address] [facility] [address] [facility] (test yzji=6773) [facility] [address] POCT-GLUCOSE [id number] 02:08:00 Test Item Value Reference Range Comments POC-GLUCOSE METER (BEAKER) 182 mg/dL 70-[address] [facility] [address] [facility] (test ddal=8781) [facility] [address] POCT-GLUCOSE [id number] 19:30:00 Test Item Value Reference Range Comments POC-GLUCOSE METER (BEAKER) 146 mg/dL 70-[address] [facility] [address] [facility] (test frsw=9979) [facility] [address] CT, CAROTID, [id number] 14:54:00Please include aortaFINAL REPORT CT angiogram of [...] the left ICA terminus. There is also tyxp-zj-lsiftvae multifocal narrowing of the right carotid siphon. [...] of the right carotid siphon. Signed: [facility] Verified Date/Time: 11/21/2017 14:54:26 Reading Location: [facility] Radiology Reading Room [facility] [id number] 14:54:00FINAL REPORT CT angiogram of the upper [...] the left ICA terminus. There is also cccv-cc-owqqojlo multifocal narrowing of the right carotid siphon. [...] 14:54:26 Reading Location: [facility] Radiology Reading Room POCT-GLUCOSE [id number] 11:50:00 Test Item Value Reference Range Comments POC-GLUCOSE METER (BEAKER) 153 mg/dL 70-[address] [facility] [address] [facility] (test iqxn=7484) [facility] [address] POCT-GLUCOSE [id number] 08:08:00 Test Item Value Reference Range Comments POC-GLUCOSE METER (BEAKER) 125 mg/dL 70-[address] [facility] [address] [facility] (test xezh=6667) [facility] [address] [id number] 06:43:00 Test Item Value Reference Range Comments MAGNESIUM (BEAKER) (test boor=084) 2.1 mg/dL 1.6-2.6 BASIC METABOLIC [id number] 06:43:00 Test Item Value Reference Range Comments SODIUM (BEAKER) (test 136 meq/L 136-145 zdlt=398) POTASSIUM (BEAKER) (test 4.0 meq/L 3.5-5.1 kgys=073) CHLORIDE (BEAKER) (test 101 meq/L 98-107 bkqc=042) CO2 (BEAKER) (test 27 meq/L 22-29 oqju=978) BLOOD UREA NITROGEN 12 mg/dL 7-21 (BEAKER) (test llhx=474) CREATININE (BEAKER) (test 0.68 mg/dL 0.57-1.25 iqcp=469) GLUCOSE RANDOM (BEAKER) 122 mg/dL 70-105 (test rvha=779) CALCIUM (BEAKER) (test 9.5 mg/dL 8.4-10.2 aiav=787) EGFR (BEAKER) (test 83 mL/min/1.73 sq m ESTIMATED GFR IS NOT hxah=7554) ACCURATE CREATININE CLEARANCE IN PREDICTING GLOMERULAR FILTRATION RATE. ESTIMATED GFR IS NOT APPLICABLE FOR DIALYSIS PATIENTS. TSH/FREE T4 IF [id number] 22:12:00 Test Item Value Reference Range Comments THYROID STIMULATING HORMONE (BEAKER) (test 4.66 uIU/mL 0.35-4.94 vgjr=355) [id number] 21:54:00 Test Item Value Reference Range Comments MAGNESIUM (BEAKER) (test yibp=776) 2.0 mg/dL 1.6-2.6 BASIC METABOLIC [id number] 21:54:00 Test Item Value Reference Range Comments SODIUM (BEAKER) (test 134 meq/L 136-145 tvzt=270) POTASSIUM (BEAKER) (test 4.1 meq/L 3.5-5.1 ogzn=787) CHLORIDE (BEAKER) (test 101 meq/L 98-107 zdbq=769) CO2 (BEAKER) (test 24 meq/L 22-29 rpyx=661) BLOOD UREA NITROGEN 11 mg/dL 7-21 (BEAKER) (test ynwl=700) CREATININE (BEAKER) (test 0.65 mg/dL 0.57-1.25 dgzq=337) GLUCOSE RANDOM (BEAKER) 126 mg/dL 70-105 (test yfbi=987) CALCIUM (BEAKER) (test 9.5 mg/dL 8.4-10.2 vyaf=929) EGFR (BEAKER) (test 87 mL/min/1.73 sq m ESTIMATED GFR IS NOT zhrj=0710) ACCURATE CREATININE CLEARANCE IN PREDICTING GLOMERULAR FILTRATION RATE. ESTIMATED GFR IS NOT APPLICABLE FOR DIALYSIS PATIENTS. LIPID [id number] 21:54:00 Test Item Value Reference Range Comments TRIGLYCERIDES (BEAKER) (test szep=871) 70 mg/dL CHOLESTEROL (BEAKER) (test ycrl=197) 101 mg/dL HDL CHOLESTEROL (BEAKER) (test gqum=257) 39 mg/dL LDL CHOLESTEROL CALCULATED (BEAKER) (test 48 mg/dL pbzi=237) Triglyceride Reference Range: Low Risk <150 Borderline 150- 199 High Risk 200-499 Very High Risk >=500Cholesterol Reference Range: Low Risk <200 Borderline 200-239 High Risk > 240HDL Cholesterol Reference Range: Low Risk >=60 High Risk <40LDL Cholesterol Reference Range: Optimal <100 Near Optimal 100-129 Borderline 130-159 High 160-189 Very High >=190POCT-GLUCOSE [id number] 21:35:00 Test Item Value Reference Range Comments POC-GLUCOSE METER (BEAKER) 128 mg/dL 70-110 TESTED AT [address] (test gtzj=8170) [facility] [address] POCT-GLUCOSE [id number] 17:55:00 Test Item Value Reference Range Comments POC-GLUCOSE METER (BEAKER) 113 mg/dL 70-110 TESTED AT [address] (test clrb=1533) [facility] [address] POCT-GLUCOSE [id number] 12:32:00 Test Item Value Reference Range Comments POC-GLUCOSE METER (JANNETH) 120 mg/dL 70-110 TESTED AT [place] [address] [facility] (test hqpi=9264) [facility] [address] MR, MRA, BRAIN, WITHOUT [id number] 11:33:00Reason for exam:-> Ischemic Stroke EvaluationFINAL REPORT MRA Head and Neck CLINICAL HISTORY: CVA TECHNIQUE: MRA of the head utilizing 3-D lkpu-si-trtstc technique, with 3-D reconstructions. MRA of the [...] There is no other evidence for a [place] proximal branch vessel occlusion. There [...] Verified Date/Time: 11/20/2017 11:33:14 Reading Location : [facility] C013V Neuro Reading Room MR, MRA, NECK, WITHOUT IV [id number] 11:33: 00Reason for exam:->Ischemic Stroke EvaluationFINAL REPORT MRA Head and Neck CLINICAL HISTORY: CVA TECHNIQUE: MRA of the head utilizing 3-D zoxk-oz-fqxmwc technique, with 3-D reconstructions. MRA of the neck utilizing 2-D and 3-D gbkh-aj-hgxqaz technique, with 3-D reconstructions. COMPARISON: None FINDINGS: [...] There is no other evidence for a [place] proximal branch vessel occlusion. There [...] Verified Date/Time: 11/20/2017 11 :33:14 Reading Location: [address] Neuro Reading Room MR, BRAIN, WITHOUT [id number] 11:05:00Reason for exam:->Ischemic Stroke EvaluationFINAL REPORT MRI [...] MDReport Verified Date/Time: 11/20/2017 11:05:05 Reading Location: [address] Neuro Reading Room HEMOGLOBIN [id number] 09:08:00 Test Item Value Reference Range Comments HEMOGLOBIN A1C (BEAKER) (test bofj=985) 6.1 % 4.3-6.1 POCT-GLUCOSE [id number] 08:27:00 Test Item Value Reference Range Comments POC-GLUCOSE METER (BANNER) 125 mg/dL 70-[address] [facility] [address] [facility] (test cdjc=8548) [facility] [address] TSH/FREE T4 IF [id number] 07:47:00 Test Item Value Reference Range Comments THYROID STIMULATING HORMONE (BEAKER) (test 5.97 uIU/mL 0.35-4.94 nvyq=323) VITAMIN [id number] 07:44:00 Test Item Value Reference Range Comments VITAMIN B12 (BEAKER) (test fgnq=104) 857 pg/mL 213-816 CBC W/PLT COUNT & AUTO [id number] 06:47:00 Test Item Value Reference Range Comments WHITE BLOOD CELL COUNT (BEAKER) (test lkwj=666) 8.3 K/ L 3.5-10.5 RED BLOOD CELL COUNT (BEAKER) (test joup=372) 4.11 M/ L 3.93-5.22 HEMOGLOBIN (BEAKER) (test qwdw=414) 13.4 GM/DL 11.2-15.7 HEMATOCRIT (BEAKER) (test ukax=750) 39.7 % 34.1-44.9 MEAN CORPUSCULAR VOLUME (BEAKER) (test nxps=485) 96.6 fL 79.4-94.8 MEAN CORPUSCULAR HEMOGLOBIN (BEAKER) (test 32.6 pg 25.6-32.2 ayvf=661) MEAN CORPUSCULAR HEMOGLOBIN CONC (BEAKER) (test 33.8 GM/DL 32.2-35.5 osrf=170) RED CELL DISTRIBUTION WIDTH (BEAKER) (test 12.1 % 11.7-14.4 zegd=324) PLATELET COUNT (BEAKER) (test wxqd=743) 209 K/CU MM 150-450 MEAN PLATELET VOLUME (BEAKER) (test zffc=657) 9.7 fL 9.4-12.3 NUCLEATED RED BLOOD CELLS (BEAKER) (test 0 /100 WBC 0-0 snim=276) NEUTROPHILS RELATIVE PERCENT (BEAKER) (test 49 % rlsd=443) LYMPHOCYTES RELATIVE PERCENT (BEAKER) (test 35 % tbhf=535) MONOCYTES RELATIVE PERCENT (BEAKER) (test 12 % heov=134) EOSINOPHILS RELATIVE PERCENT (BEAKER) (test 4 % mrxg=740) BASOPHILS RELATIVE PERCENT (BEAKER) (test 1 % ncad=706) NEUTROPHILS ABSOLUTE COUNT (BEAKER) (test 4.02 K/ L 1.56-6.13 fkus=609) LYMPHOCYTES ABSOLUTE COUNT (BEAKER) (test 2.89 K/ L 1.18-3.74 utrz=018) MONOCYTES ABSOLUTE COUNT (BEAKER) (test 0.95 K/ L 0.24-0.36 sjom=070) EOSINOPHILS ABSOLUTE COUNT (BEAKER) (test 0.35 K/ L 0.04-0.36 oybp=365) BASOPHILS ABSOLUTE COUNT (BEAKER) (test 0.04 K/ L 0.01-0.08 vyde=910) IMMATURE GRANULOCYTES-RELATIVE PERCENT (BEAKER) 0 % 0-1 (test gdhc=2809) POCT-GLUCOSE [id number] 22:09:00 Test Item Value Reference Range Comments POC-GLUCOSE METER (BEAKER) 130 mg/dL 70-[address] [facility] [address] [facility] (test fpww=2451) [facility] [address]
--- OUTSIDE RECORDS SUMMARY | 2019-02-17 13:41 | XMS REPORT | Clinical Summary ---
:1935 Author Organization [facility] Address [address] [place] [address] Care Team Providers Name Role Phone Unavailable [...] Not on file Results Not on fileafter 02/16/2018 Insurance Payer Benefit Plan / Group Subscriber ID Type Phone Address [facility] ALL xxxxxxxxx Maps Contracted Advance Directives For more information, please contact:[address] [phone] Code Status Date Activated Date Inactivated Comments Partial Code 11/19/2017 10:17 PM 11/22/2017 6:56 PM This code status was determined by: Patient Drug Protocol After Arrest Occurs? No Mechanical Ventilation with Intubation? No Bag/Mask? No Internal/External Pacemaker? No Transfer to Critical Care? No Chest Compressions? No Defibrillation/Cardioversion? No
--- OUTSIDE RECORDS SUMMARY | 2019-02-17 13:41 | XMS REPORT ---
[...] End Status Dosage System Date Date Omeprazole [facility] 26945012331 40 MG orally Active 1 EACH daily in AM ONCE A DAY HydrALAZINE HCl [facility] 36219855157 50 MG Orally Active 1 tablet Four times a with food day Vitamin D3 [facility] 12316310209 1000 UNIT Active 1 capsule Orally Once a day Cyanocobalamin [facility] [address]-09 1000 MCG/15ML Active 15 ml Orally Once a day Metformin HCl [facility] 95853161935 500 MG Orally Active 1 tablet Twice a day with meals Omeprazole [facility] 43287791664 40 Active 1 EACH ONCE A DAY Coreg [facility] 76737138114 25 MG Orally Active not defined Bactrim DS [facility] 81155287721 800-160 MG January Active 1 tablet Orally Twice a , 2017 Toviaz [facility] 03465850881 8 MG Orally Active 1 tablet Once a day Valsartan [facility] 53577378955 160 MG Orally Active 1 tablet Once a day Verapamil HCl ER [facility] 92772449156 240 MG Orally Active 1 capsule Once a day Eliquis [facility] 16233150682 5 MG Orally Active 1 tablet twice a day Metformin HCl [facility] 97995418047 500 Active TAKE 1 TABLET BY MOUTH TWICE DAILY HydrALAZINE HCl [facility] 10298684727 100 MG Orally December 05, Active as Three times a 2017 day Crestor [facility] 74743109090 40 Active 1 EACH ONCE A DAY Crestor [facility] 21116487618 40 MG Active 1 EACH ONCE A DAY Plavix [facility] 55946713700 75 MG Orally Active 1 tablet Once a day Irbesartan [facility] 87234094387 150 MG Orally Active 1 tablet Once a day Results No Known Results Summary Purpose eClinicalWorks Submission
--- OUTSIDE RECORDS SUMMARY | 2019-02-17 13:41 | XMS REPORT ---
[...] Dosage System Date Date Verapamil HCl ER [facility] 01684313178 240 MG Orally Active 1 capsule Once a day Bactrim DS [facility] 74630585843 800-160 MG January Active 1 tablet Orally Twice a , 2017 Metformin HCl [facility] 98992038315 500 MG Orally Active 1 tablet Twice a day with meals Valsartan [facility] 05961978658 160 MG Orally Active 1 tablet Once a day Plavix ND 15857247336 75 MG Orally Active 1 tablet Once a day Vitamin D3 ND 85006312253 1000 UNIT Active 1 capsule Orally Once a day Toviaz [facility] 74693442782 8 MG Orally Active 1 tablet Once a day Eliquis [facility] 27469844011 5 MG Orally Active 1 tablet twice a day Crestor [facility] 61719715109 40 MG Active 1 EACH ONCE A DAY HydrALAZINE HCl [facility] 37215786516 50 MG Orally Active 1 tablet Four times a with food day Cyanocobalamin [facility] [address]-78 1000 MCG/15ML Active 15 ml Orally Once a day Omeprazole [facility] 13529860620 40 MG orally Active 1 EACH daily in AM ONCE A DAY HydrALAZINE HCl [facility] 25356889837 100 MG Orally December 05, Active as Three times a 2018 day Coreg [facility] 21695679388 25 MG Orally Active not defined Results No Known Results Summary Purpose eClinicalWorks Submission
--- OUTSIDE RECORDS SUMMARY | 2019-02-17 13:41 | XMS REPORT ---
[...] Status Dosage System Date Date Macrobid [facility] 19660239747 100 MG Orally Sep 08, Aug Active 1 capsule every 12 hrs 2018 22, with food [address] [facility] 32286139916 100 MG Orally December 05, Active as Three times a 2018 [address] [facility] [address]-31 1000 MCG/15ML Active 15 ml Orally Once a day Metformin HCl [facility] 26323760036 500 MG Orally Active 1 tablet Twice a day with meals Bactrim DS ND 18293151965 800-160 MG January Active 1 tablet Orally Twice a 30, day [address] [facility] 35875946400 150 MG Orally Active 1 tablet Once a day Crestor [facility] 92094486505 40 MG Active 1 EACH ONCE A DAY Valsartan [facility] 40704391734 160 MG Orally Active 1 tablet Once a day HydrALAZINE HCl [facility] 63628733797 50 MG Orally Active 1 tablet Four times a with food day Eliquis [facility] 69892677484 5 MG Orally Active 1 tablet twice a day Metformin HCl [facility] 17819323299 500 Active TAKE 1 TABLET BY MOUTH TWICE DAILY Crestor [facility] 27827813862 40 Active 1 EACH ONCE A DAY Coreg [facility] 75945288571 25 MG Orally Active not defined Omeprazole [facility] 47751120264 40 Active 1 EACH ONCE A DAY Toviaz [facility] 76019174613 8 MG Orally Active 1 tablet Once a day Plavix [facility] 67075696187 75 MG Orally Active 1 tablet Once a day Verapamil HCl ER [facility] 65347653705 240 MG Orally Active 1 capsule Once a day Omeprazole [facility] 48368175586 40 MG orally Active 1 EACH daily in AM ONCE A DAY Vitamin D3 [facility] 15534351694 1000 UNIT Active 1 capsule Orally Once a day Results No Known Results Summary Purpose eClinicalWorks Submission
--- OUTSIDE RECORDS SUMMARY | 2019-02-17 13:42 | XMS REPORT ---
:1935 Author Organization eClinicalWorks Care Team Providers Name Role Phone EsauAdamaris Provider Role Unavailable Allergies, Adverse Reactions, Alerts Substance Reaction Event Type N.K.D.A. Info Not Available Non Drug Allergy Problems Problem Type Condition Code Onset Dates Condition Status Assessment Recurrent UTI N39.0 Active Assessment Lower urinary tract symptoms (LUTS) R39.9 Active Problem Type 2 diabetes E11.9 Active Assessment Mixed stress and urge urinary N39.46 Active incontinence Problem Other speech disturbance R47.89 Active Problem History of TIA (transient ischemic Z86.73 Active attack) Problem Atherosclerosis I70.90 Active Problem Hospital discharge follow-up Z09 Active Problem Other chronic pain G89.29 Active Problem Stress at home F43.9 Active Problem Overactive bladder N32.81 Active Problem 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 Active Problem Mixed stress and urge urinary N39.46 Active incontinence Problem Recurrent urinary tract infection N39.0 Active Problem Chronic fatigue R53.82 Active Problem Stenosis of left carotid artery I65.22 Active Problem Mild depression F32.0 Active Problem Elevated TSH R79.89 Active Problem Obesity E66.9 Active Problem Hypertension I10 Active Problem Obstructive sleep apnea G47.33 Active Problem GERD (gastroesophageal reflux K21.9 Active disease) Problem Chronic a-fib I48.2 Active Problem Abnormal mammogram R92.8 Active Problem Allergic rhinitis J30.9 Active Problem Hyperlipidemia E78.5 Active Medications Medication Code Code Instructions Start End Status Dosage System Date Date Vitamin D3 ND 92614190110 1000 UNIT Active 1 capsule Orally Once a day Cyanocobalamin [facility] [address]-48 1000 MCG/15ML Active 15 ml Orally Once a day Crestor ND 77025493363 40 Active 1 EACH ONCE A DAY HydrALAZINE HCl ND 70083979287 100 MG Orally December 05, Active as directed Three times a 2017 day Valsartan ND 67271520400 160 MG Orally Active 1 tablet Once a day Estradiol ND 65682925826 0.1 MG/GM January Active as directed Vaginal Two , times a Week 2018 Omeprazole [facility] 30720719462 40 Active 1 EACH ONCE A DAY Verapamil HCl ER [facility] 92017370162 240 MG Orally Active 1 capsule Once a day Carvedilol ND 75672211322 25 MG Orally Active as directed HydrALAZINE HCl [facility] 73939871060 50 MG Orally Active 1 tablet with Four times a food day Sertraline HCl ND 96197665365 25 MG Orally January Active 1 tablet Once a day 2018 Sertraline HCl [facility] 50418804149 25 Orally Once Active 1 tablet a day Fluconazole [facility] 63807960231 150 MG Orally Sep 15, Active 1 tablet one tab a week 2019 today and may repeat one tab in 1 week if no improvement Metformin HCl ND 13220078752 500 Active TAKE 1 TABLET BY MOUTH TWICE DAILY Metformin HCl [facility] 31895589168 500 MG Orally Active 1 tablet with Twice a day meals Eliquis [facility] 88969289187 5 MG Orally Active 1 tablet twice a day Toviaz [facility] 49662059132 8 MG Orally Active 1 tablet Once a day Metformin HCl [facility] 18058313840 500 Active TAKE 1 TABLET BY MOUTH TWICE DAILY Omeprazole [facility] 15581206777 40 MG orally Active 1 EACH ONCE A daily in AM DAY Coreg [facility] 73613811170 25 MG Orally Active not defined Crestor [facility] 76812766855 40 MG Active 1 EACH ONCE A DAY Bactrim DS [facility] 16028783782 800-160 MG December Active 1 tablet Orally Twice a , 2018 Irbesartan ND 27478415147 150 MG Orally Active 1 tablet Once a day Plavix [facility] 79399600849 75 MG Orally Active 1 tablet Once a day Bactrim DS [facility] 82314215366 800-160 MG January Active 1 tablet Orally Twice a , 2017 Results No Known Results Summary Purpose eClinicalWorks Submission
--- OUTSIDE RECORDS SUMMARY | 2019-02-17 13:42 | XMS REPORT ---
:1935 Author Organization eClinicalWorks Care Team Providers Name Role Phone Britt, Na Provider Role Unavailable Allergies No Known Allergies Problems Problem Type Condition Code Onset Dates Condition Status Problem Other speech disturbance R47.89 Active Problem Hospital discharge follow-up Z09 Active Problem History of TIA (transient ischemic Z86.73 Active attack) Problem Stress at home F43.9 Active Problem 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 Active Problem Mild depression F32.0 Active Problem Recurrent urinary tract infection N39.0 Active Problem Other chronic pain G89.29 Active Problem Stenosis of left carotid artery I65.22 Active Problem Atherosclerosis I70.90 Active Problem Elevated TSH R79.89 Active Problem Chronic fatigue R53.82 Active Problem GERD (gastroesophageal reflux K21.9 Active disease) Problem Obesity E66.9 Active Problem Overactive bladder N32.81 Active Problem Obstructive sleep apnea G47.33 Active Problem Hyperlipidemia E78.5 Active Problem Chronic a-fib I48.2 Active Problem Hypertension I10 Active Problem Abnormal mammogram R92.8 Active Problem Allergic rhinitis J30.9 Active Problem Type 2 diabetes E11.9 Active Medications No Known Medications Results No Known Results Summary Purpose eClinicalWorks Submission
--- OUTSIDE RECORDS SUMMARY | 2019-02-17 13:42 | XMS REPORT ---
[...] Status Dosage System Date Date Carvedilol ND 06592885596 25 MG Orally Active as directed Omeprazole ND 90757964584 40 MG orally Active 1 EACH ONCE A daily in AM DAY Vitamin D3 ND 11641130417 1000 UNIT Active 1 capsule Orally Once a day Metformin HCl ND 99447557249 500 MG Orally Active 1 tablet with Twice a day meals Valsartan ND 93194593778 160 MG Orally Active 1 tablet Once a day HydrALAZINE HCl ND 14800673044 50 MG Orally Active 1 tablet with Four times a food day Eliquis [facility] 07494736622 5 MG Orally Active 1 tablet twice a day Crestor [facility] 25805524581 40 Active 1 EACH ONCE A DAY HydrALAZINE HCl [facility] 33075338641 100 MG Orally December 05, Active as directed Three times a 2017 day Fluconazole ND 07681381298 150 MG Orally Sep 15, Active 1 tablet one tab a week 2019 today and may repeat one tab in 1 week if no improvement Verapamil HCl ER [facility] 93324486786 240 MG Orally Active 1 capsule Once a day Irbesartan [facility] 29703473422 150 MG Orally Active 1 tablet Once a day Coreg [facility] 21803576642 25 MG Orally Active not defined Omeprazole [facility] 22729030239 40 Active 1 EACH ONCE A DAY Toviaz [facility] 50168341859 8 MG Orally Active 1 tablet Once a day Metformin HCl [facility] 39400699665 500 Active TAKE 1 TABLET BY MOUTH TWICE DAILY Cyanocobalamin [facility] [address]-34 1000 MCG/15ML Active 15 ml Orally Once a day Crestor [facility] 15445432831 40 MG Active 1 EACH ONCE A DAY Metformin HCl [facility] 31106368348 500 Active TAKE 1 TABLET BY MOUTH TWICE DAILY Bactrim DS [facility] 81036410830 800-160 MG January Active 1 tablet Orally Twice a , 2017 Bactrim DS [facility] 13273256439 800-160 MG December Active 1 tablet Orally Twice a , 2018 Plavix [facility] 08393639050 75 MG Orally Active 1 tablet Once [...]
--- OUTSIDE RECORDS SUMMARY | 2019-02-17 13:42 | XMS REPORT ---
[...] Dosage System Date Date Verapamil HCl ER [facility] 23930838790 240 MG Orally Active 1 capsule Once a day Metformin HCl [facility] 26818359469 500 Active TAKE 1 TABLET BY MOUTH TWICE DAILY Metformin HCl [facility] 58883145209 500 MG Orally Active 1 tablet with Twice a day meals Eliquis [facility] 55572167468 5 MG Orally Active 1 tablet twice a day Coreg ND 43276252146 25 MG Orally Active not defined Crestor [facility] 94294650589 40 Active 1 EACH ONCE A DAY Vitamin D3 [facility] 37432109131 1000 UNIT Active 1 capsule Orally Once a day HydrALAZINE HCl ND 12346150845 100 MG Orally December 05, Active as directed Three times a 2017 day Bactrim DS [facility] 33915954119 800-160 MG January Active 1 tablet Orally Twice a , 2017 Metformin HCl [facility] 88809205803 500 Active TAKE 1 TABLET BY MOUTH TWICE DAILY HydrALAZINE HCl [facility] 32217321170 50 MG Orally Active 1 tablet with Four times a food day Fluconazole ND 98522236491 150 MG Orally Sep 15, Active 1 tablet one tab a week 2019 today and may repeat one tab in 1 week if no improvement Carvedilol [facility] 89624364468 25 MG Orally Active as directed Irbesartan [facility] 80934356691 150 MG Orally Active 1 tablet Once a day Omeprazole [facility] 02349999598 40 Active 1 EACH ONCE A DAY Crestor [facility] 73136039561 40 Active 1 EACH ONCE A DAY Valsartan [facility] 04909208547 160 MG Orally Active 1 tablet Once a day Cyanocobalamin [facility] [address]-50 1000 MCG/15ML Active 15 ml Orally Once a day Bactrim DS [facility] 23620638988 800-160 MG December Active 1 tablet Orally Twice a , 2018 Plavix [facility] 56655630352 75 MG Orally Active 1 tablet Once a day Omeprazole [facility] 14456036688 40 MG orally Active 1 EACH ONCE A daily in AM DAY Crestor [facility] 15501277541 40 MG Active 1 EACH ONCE A DAY Toviaz [facility] 10095322811 8 MG Orally Active 1 tablet Once a day Results No Known Results Summary Purpose eClinical[employer] Submission
[2019-02-17 14:38] LABS: Magnesium 2.2 mg/dL (1.8-2.4); Troponin (Emerg Dept Use Only) < 0.02 ng/mL (0.0-0.045)
[2019-02-17 14:40] LABS: Albumin 3.6 g/dL (3.4-5.0); Bilirubin Direct 0.2 mg/dL (0-0.2); Bilirubin Total 0.5 mg/dL (0.2-1.0); Potassium 4.2 mmol/L (3.5-5.1); Protein, Total 7.1 g/dL (6.4-8.2)
[2019-02-17 14:45] LABS: Absolute Lymphocytes (CBC) 2.4 K/uL (0.7-4.9); Basophils % 0.4 % (0-1.3); Hematocrit 37.7 % (36.0-45.0); Lymphocytes % 26.3 % (15.3-44.8); MPV 8.1 fL (7.6-11.3); RBC Red Blood Cell Count 3.97 M/uL (3.86-4.86)
--- NOTE | 2019-02-17 15:01 | RAD REPORT ---
EXAM DESCRIPTION: Diane Single View02/17/2019 2:38 pm CLINICAL HISTORY: Chest pain COMPARISON: January 26, 2019 FINDINGS: The lungs appear clear of acute infiltrate. The heart is mildly to moderately enlarged. Postsurgical changes involve the chest. IMPRESSION: No acute abnormalities displayed
--- NOTE | 2019-02-17 15:04 | RAD REPORT ---
EXAM DESCRIPTION: CT - Head Brain Wo Cont - 02/17/2019 2:30 pm CLINICAL HISTORY: Headache COMPARISON: 2018 TECHNIQUE: Computed axial tomography of the head was obtained. IV contrast was not requested. All CT scans are performed using dose optimization technique as appropriate and may include automated exposure control or mA/KV adjustment according to patient size. FINDINGS: An intracranial bleed is not seen . The ventricles are normal in caliber. No extra-axial fluid collection is noted. Mild low-density areas within periventricular, deep and subcortical white matter likely represent is chemic changes secondary to small vessel disease. Fluid within the sinuses/ mastoids is not seen. IMPRESSION: No acute intracranial abnormality is seen. If patient's symptoms persist MRI of the bra in would be recommended.
[2019-02-17 15:33] LABS: Protime INR 1.52
[2019-02-17] MEDS ORDERED: NA CHLORIDE 0.9% 250 ML ONE (15:37)
[2019-02-17 16:16] LABS: Urine Bacteria <20 /HPF (<20); Urine Culture Reflex Order NOT NEEDED; Urine RBC <5 /HPF (NONE SEEN)
--- NOTE | 2019-02-17 16:36 | ER ---
Nurse's Notes [facility] Name: Radha Lara Age: 83 yrs Sex: Female : 1935 Arrival Date: 02/17/2019 Time: 13:40 Bed 7 Private MD: Elli Britt Diagnosis: Hypertensive heart disease Presentation: 02/17 13:42 Presenting complaint: Patient states: She was feeling bad so she checked her blood aj1 pressure and it was 200/80. Patient reports headache, and pain to her neck and shoulders. Patient also reports dizziness when she stands. Transition of care: patient was not received from another setting of care. Onset of symptoms was February 17, 2019. Risk Assessment: Do you want to hurt yourself or someone else? Patient reports no desire to harm self or others. Initial Sepsis Screen: Does the patient meet any 2 criteria? No. Patient's initial sepsis screen is negative. Does the patient have a suspected source of infection? No. Patient's initial sepsis screen is negative. Care prior to arrival: None. 13:42 Method Of Arrival: Ambulatory aj1 13:42 Acuity: YOLANDE 2 aj1 13:44 Note Physical therapist called and reports pt used to take Verapamil and changed to aa5 Amlodipine by Dr. Ni a week ago. Triage Assessment: 13:46 General: Appears in no apparent distress. uncomfortable, Behavior is calm, cooperative, aj1 appropriate for age. Pain: Complains of pain in top of head Pain currently is 3 out of 10 on a pain scale. Neuro: Level of Consciousness is awake, alert, obeys commands. Cardiovascular: Patient's skin is warm and dry. Respiratory: Airway is patent Respiratory effort is even, unlabored, Respiratory pattern is regular, symmetrical. Historical: - Allergies: 13:46 Aspirin; aj1 13:46 Clonidine; aj1 13:46 Codeine; aj1 13:46 Ibuprofen; aj1 13:46 Iodinated Contrast Media - IV Dye; aj1 13:46 Lisinopril; aj1 13:46 Niacin; aj1 13:46 Nitrofurantoin; aj1 13:46 nitrous oxide; aj1 13:46 vicoden; aj1 - Home Meds: 13:46 carvedilol 25 mg Oral tab 1 tab 2 times per day [Active]; irbesartan 150 mg oral tab 1 aj1 tab once daily [Active]; amlodipine 5 mg tab 1 tab once daily [Active]; hydralazine 100 mg oral tab 3 times per day [Active]; Eliquis 5 mg Oral tab 2 times per day [Active]; metformin 500 mg Oral Tb24 1 tab 2 times per day [Active]; omeprazole 40 mg Oral cpDR 1 cap once daily [Active]; Crestor 40 mg Oral tab once daily [Active]; Plavix 75 mg Oral tab 1 tab once daily [Active]; sertraline 50 mg oral tab 1 tab once daily [Active]; cranberry Oral twice a day [Active]; Probiotic Oral [Active]; Multiple Vitamins Oral tab daily [Active]; vitamin E Oral once daily [Active]; Vitamin D3 1,000 unit Oral chew daily [Active]; Vitamin B-12 2,000 mcg Oral TbER daily [Active]; magnesium oxide 500 mg Oral cap [Active]; - PMHx: 13:46 acid reflux; Atrial Fib; Diabetes - NIDDM; Hyperlipidemia; Hypertension; Kidney stones; aj1 TIA; UTI; ADD/ADHD; CVA; - Immunization history:: Flu vaccine is not up to date. - Social history:: Smoking status: Patient/guardian denies using tobacco. - Ebola Screening: : Patient denies travel to an Ebola-affected area in the 21 days before illness onset. Screenin:54 Abuse screen: Denies threats or abuse. Denies injuries from another. Nutritional ss screening: No deficits noted. Tuberculosis screening: Never had TB. Assessment: 13:55 General: Appears uncomfortable, Behavior is calm, cooperative, Denies fever, feeling ss ill, fatigue, chills. General: Patient and daughter report that patient has been having issues with her blood pressure and just had her medication changed last week. Daughter states that it seemed like it was working until today when patient was complaining of not feeling well, she checked her blood pressure and it was high despite taking her home medications.. Pain: Complains of pain in top of head Pain currently is 3 out of 10 on a pain scale. Quality of pain is described as aching, Pain began "a few days ago" Is intermittent. Neuro: Level of Consciousness is awake, alert, obeys commands, Oriented to person, place, time, situation, [employer] are equal bilaterally Speech is normal, Facial symmetry appears normal, Pupils are PERRLA. Cardiovascular: Capillary refill < 3 seconds is brisk in bilateral fingers. Respiratory: Airway is patent Respiratory effort is even, unlabored, Respiratory pattern is regular, symmetrical, Breath sounds are clear bilaterally. Denies cough, shortness of breath. GI: Reports nausea, Patient currently denies diarrhea, vomiting. : No signs and/or symptoms were reported regarding the genitourinary system. EENT: Oral mucosa is moist. Derm: Skin is intact, is healthy with good turgor, Skin is pink, warm \\T\\ dry. normal. Musculoskeletal: Circulation, motion, and sensation intact. Range of motion: intact in all extremities. 14:22 Reassessment: Pt in CT at this time. Patient states that she had urine tested at kidney ss specialist recently and everything checked out okay. Daughter still insist that we check her urine because "she frequently gets UTI's". 14:48 Reassessment: Patient appears in no apparent distress at this time. Patient and/or ss family updated on plan of care and expected duration. Pain level reassessed. Patient is alert, oriented x 3, equal unlabored respirations, skin warm/dry/pink. Patient denies pain at this time. Patient states feeling better. Patient states symptoms have improved. 15:30 Reassessment: assisted patient to bedside commode. Urine sample obtained. Patient back ss in bed on monitors. Awaiting IV fluids to finish infusing prior to obtaining orthostatics. 15:52 Reassessment: Patient appears in no apparent distress at this time. Patient and/or ss family updated on plan of care and expected duration. Pain level reassessed. Orthostatics complete. patient tolerated well. Hari Page notified. Awaiting disposition. Patient denies pain at this time. Vital Signs: 13:46 BP 204 / 69; Pulse 67; Resp 18; Temp 98.5; Pulse Ox 98% on R/A; Weight 63.5 kg (R); aj1 Height 5 ft. 2 in. (157.48 cm) (R); Pain 3/10; 13:54 BP 182 / 59; Pulse 60; Pulse Ox 97% ; Pain 3/10; ss 14:00 BP 180 / 57; ss 14:47 BP 158 / 56; Pulse 60; Resp 16; Pulse Ox 97% on R/A; Pain 0/10; ss 15:40 BP 190 / 52; Pulse 62; Resp 16; Pulse Ox 97% ; Pain 0/10; ss 15:52 BP 173 / 54 Supine; Pulse 68; ss 15:52 BP 184 / 91 Sitting; Pulse 68; ss 15:52 BP 170 / 65; Pulse 70; ss 16:19 BP 171 / 56; Pulse 56; ss 13:46 Body Mass Index 25.61 (63.50 kg, 157.48 cm) aj1 ED Course: 13:40 Patient arrived in ED. as 13:40 Elli Britt MD is Private Physician. as 13:43 Triage completed. aj1 13:46 Arm band placed on Patient placed in an exam room. aj1 13:50 Hari Lara PA is PHCP. cp 13:50 Hari Simmons MD is Attending Physician. cp 13:53 Abigail Ayala, LAILA is Primary Nurse. ss 13:53 Patient has correct armband on for positive identification. Placed in gown. Bed in low ss position. Call light in reach. Side rails up X 1. Adult w/ patient. monitoring specialist on. Pulse ox on. NIBP on. Warm blanket given. 14:15 Inserted saline lock: 22 gauge in right forearm, using aseptic technique. Blood ss collected. 14:[address] via stretcher. sv 14:28 CT completed. Patient tolerated procedure well. Patient moved back from CT. bq 14:30 Patient moved to radiology. bq 14:32 CT Head Brain wo Cont In Process Unspecified. EDMS 14:39 XRAY Chest (1 view) In Process Unspecified. EDMS 16:33 Ayaan Ni MD is Referral Physician. cp 16:41 No provider procedures requiring assistance completed. IV discontinued, intact, ss bleeding controlled, No redness/swelling at site. Pressure dressing applied. Administered Medications: 15:12 Not Given (Physician Discretion): hydrALAZINE 10 mg IV at calculated rate once cp 15:29 Drug: NS 0.9% 250 ml Route: IV; Rate: bolus; Site: right forearm; ss 15:51 Follow up: IV Status: Completed infusion; IV Intake: 250ml ss Intake: 15:51 IV: 250ml; Total: 250ml. ss Outcome: 16:33 Discharge ordered by . cp 16:41 Discharged to home via wheelchair, with family. ss 16:41 Condition: improved 16:41 Discharge instructions given to patient, family, Instructed on discharge instructions, follow up and referral plans. medication usage, Demonstrated understanding of instructions, follow-up care, medications, Prescriptions given X 1. 16:41 Patient left the ED. Signatures: Dispatcher [employer] EDRebecca Mathis RN RN aj1 Meg Macias RN RN Radha Bustillo Amelia as Calderon, Audri, RN RN aa5 Abigail Ayala RN RN ss Hari Lara, PA PA cp
--- NOTE | 2019-02-17 16:36 | EDPHYS ---
Physician Documentation [facility] Name: Radha Lara Age: 83 yrs Sex: Female : 1935 Arrival Date: 02/17/2019 Time: 13:40 Bed 7 Private MD: Elli Britt ED Physician Hari Simmons HPI: 02/17 14:05 This 83 yrs old Female presents to ER via Ambulatory with complaints of Blood cp Pressure Problem. 14:05 The patient has elevated blood pressure and discovered this at home, with a home cp device. Severity of symptoms: At its worst the blood pressure was 204 mm Hg, in the emergency department the blood pressure is improved, 180 mm Hg. 14:05 Onset: The symptoms/episode began/occurred today. Associated signs and symptoms: cp Pertinent positives: dizziness, headache, weakness, upper back and neck pain, Pertinent negatives: chest pain, vomiting, abdominal pain. Patient reports recent change of blood pressure medication from Verapamil to Amlodipine about [address] Ni due to HR being too low. Historical: - Allergies: 13:46 Aspirin; aj1 13:46 Clonidine; aj1 13:46 Codeine; aj1 13:46 Ibuprofen; aj1 13:46 Iodinated Contrast Media - IV Dye; aj1 13:46 Lisinopril; aj1 13:46 Niacin; aj1 13:46 Nitrofurantoin; aj1 13:46 nitrous oxide; aj1 13:46 vicoden; aj1 - Home Meds: 13:46 carvedilol 25 mg Oral tab 1 tab 2 times per day [Active]; irbesartan 150 mg oral tab 1 aj1 tab once daily [Active]; amlodipine 5 mg tab 1 tab once daily [Active]; hydralazine 100 mg oral tab 3 times per day [Active]; Eliquis 5 mg Oral tab 2 times per day [Active]; metformin 500 mg Oral Tb24 1 tab 2 times per day [Active]; omeprazole 40 mg Oral cpDR 1 cap once daily [Active]; Crestor 40 mg Oral tab once daily [Active]; Plavix 75 mg Oral tab 1 tab once daily [Active]; sertraline 50 mg oral tab 1 tab once daily [Active]; cranberry Oral twice a day [Active]; Probiotic Oral [Active]; Multiple Vitamins Oral tab daily [Active]; vitamin E Oral once daily [Active]; Vitamin D3 1,000 unit Oral chew daily [Active]; Vitamin B-12 2,000 mcg Oral TbER daily [Active]; magnesium oxide 500 mg Oral cap [Active]; - PMHx: 13:46 acid reflux; Atrial Fib; Diabetes - NIDDM; Hyperlipidemia; Hypertension; Kidney stones; aj1 TIA; UTI; ADD/ADHD; CVA; - Immunization history:: Flu vaccine is not up to date. - Social history:: Smoking status: Patient/guardian denies using tobacco. - Ebola Screening: : Patient denies travel to an Ebola-affected area in the 21 days before illness onset. ROS: 14:10 Constitutional: Negative for body aches, chills, fever, poor PO intake. cp 14:10 Eyes: Negative for injury, pain, redness, and discharge. cp 14:10 ENT: Negative for drainage from ear(s), ear pain, sore throat, difficulty swallowing, difficulty handling secretions. 14:10 Cardiovascular: Negative for chest pain, edema, palpitations. 14:10 Respiratory: Negative for cough, shortness of breath, wheezing. 14:10 Abdomen/GI: Negative for abdominal pain, nausea, vomiting, and diarrhea, black/tarry stool, rectal bleeding. 14:10 Back: Negative for pain at rest, pain with movement, radiated pain. 14:10 : Negative for urinary symptoms. 14:10 Skin: Negative for cellulitis, rash. 14:10 Neuro: Positive for general weakness, Negative for altered mental status, dizziness, headache, syncope. 14:10 All other systems are negative. Exam: 14:20 Constitutional: The patient appears in no acute distress, alert, awake, cp non-diaphoretic, non-toxic, well developed, well nourished. 14:20 Head/Face: Normocephalic, atraumatic. cp 14:20 Eyes: Periorbital structures: appear normal, Pupils: equal, round, and reactive to light and accomodation, Extraocular movements: intact throughout, Conjunctiva: normal, no exudate, no injection, Lids and lashes: appear normal, bilaterally. 14:20 ENT: External ear(s): are unremarkable, Ear canal(s): are normal, clear, TM's: bulging, is not appreciated, bilaterally, dullness, bilaterally, erythema, is not appreciated, bilaterally, Nose: is normal, Mouth: Lips: moist, Oral mucosa: pink and intact, moist, Posterior pharynx: is normal, airway is patent, no erythema, no exudate. 14:20 Neck: ROM/movement: is normal, is supple, without pain, no range of motions limitations, no meningismus, no nuchal rigidity. 14:20 Chest/axilla: Inspection: normal, Palpation: is normal, no crepitus, no tenderness. 14:20 Cardiovascular: Rate: normal, Rhythm: regular, Edema: is not appreciated, JVD: is not appreciated. 14:20 Respiratory: the patient does not display signs of respiratory distress, Respirations: normal, no use of accessory muscles, no retractions, no splinting, no tachypnea, labored breathing, is not present, Breath sounds: are clear throughout, no decreased breath sounds, no stridor, no wheezing. 14:20 Abdomen/GI: Inspection: abdomen appears normal, Bowel sounds: active, all quadrants, Palpation: abdomen is soft and non-tender, in all quadrants, rebound tenderness, is not appreciated, voluntary guarding, is not appreciated, involuntary guarding, is not appreciated. 14:20 Back: pain, is absent, ROM is normal. 14:20 Skin: no rash present. 14:20 Neuro: Orientation: to person, place \T\ time. Mentation: is normal, Cerebellar function: is grossly normal, Motor: is normal, Sensation: is normal. 14:55 ECG was reviewed by the Attending Physician. cp Vital Signs: 13:46 BP 204 / 69; Pulse 67; Resp 18; Temp 98.5; Pulse Ox 98% on R/A; Weight 63.5 kg (R); aj1 Height 5 ft. 2 in. (157.48 cm) (R); Pain 3/10; 13:54 BP 182 / 59; Pulse 60; Pulse Ox 97% ; Pain 3/10; ss 14:00 BP 180 / 57; ss 14:47 BP 158 / 56; Pulse 60; Resp 16; Pulse Ox 97% on R/A; Pain 0/10; ss 15:40 BP 190 / 52; Pulse 62; Resp 16; Pulse Ox 97% ; Pain 0/10; ss 15:52 BP 173 / 54 Supine; Pulse 68; ss 15:52 BP 184 / 91 Sitting; Pulse 68; ss 15:52 BP 170 / 65; Pulse 70; ss 16:19 BP 171 / 56; Pulse 56; ss 13:46 Body Mass Index 25.61 (63.50 kg, 157.48 cm) aj1 MDM: 13:53 Patient medically screened. [facility] 16:32 Data reviewed: vital signs, nurses notes, lab test result(s), EKG, radiologic studies, cp CT scan, plain films. 16:32 Test interpretation: by ED physician or midlevel provider: ECG. Counseling: I had a cp detailed discussion with the patient and/or guardian regarding: the historical points, exam findings, and any diagnostic results supporting the discharge/admit diagnosis, the presence of at least one elevated blood pressure reading (>120/80) during this emergency department visit, lab results, radiology results, the need for outpatient follow up, a breaker tender, to return to the emergency department if symptoms worsen or persist or if there are any questions or concerns that arise at home. Response to treatment: the patient's symptoms have mildly improved after treatment, VSS. Patient reports symptoms improved. Will increase Amlodipine to 10 mg at night and recommend f/u with cardiology, and as a result, I will discharge patient. 02/17 14:03 Order name: Basic Metabolic Panel; Complete Time: 14:50 02/17 14:47 Interpretation: Normal except: NA 133; GLUC 122; GFR 89. 02/17 14:03 Order name: CBC with Diff; Complete Time: 14:50 02/17 14:03 Order name: LFT's; Complete Time: 14:50 02/17 15:12 Interpretation: A/G 1.0. 02/17 14:03 Order name: Magnesium; Complete Time: 14:50 02/17 14:03 Order name: NT PRO-BNP; Complete Time: 14:50 02/17 14:48 Interpretation: Abnormal: NT PRO-BNP 1490. 02/17 14:03 Order name: PT-INR; Complete Time: 16:13 02/17 16:13 Interpretation: Reviewed. 02/17 14:03 Order name: CT Head Brain wo Cont; Complete Time: 15:12 02/17 14:03 Order name: Troponin (emerg Dept Use Only); Complete Time: 14:50 02/17 14:03 Order name: XRAY Chest (1 view); Complete Time: 15:12 cp 02/17 14:03 Order name: EKG; Complete Time: 14:05 cp 02/17 14:03 Order name: Urine Microscopic Only cp 02/17 15:31 Order name: Urine Dipstick--Ancillary (enter results) em1 02/17 14:03 Order name: Cardiac monitoring; Complete Time: 14:14 cp 02/17 14:03 Order name: EKG - Nurse/Tech; Complete Time: 14:49 cp 02/17 14:03 Order name: IV Saline Lock; Complete Time: 14:14 cp 02/17 14:03 Order name: Labs collected and sent; Complete Time: 14:14 cp 02/17 14:03 Order name: O2 Per Protocol; Complete Time: 14:14 cp 02/17 14:03 Order name: O2 Sat Monitoring; Complete Time: 14:14 cp 02/17 14:03 Order name: Urine Dipstick-Ancillary (obtain specimen); Complete Time: 15:28 cp 02/17 15:13 Order name: Orthostatics; Complete Time: 15:53 cp EC:55 Rate is 64 beats/min. Rhythm is irregularly irregular. QRS interval is normal. QT cp interval is normal. T waves are Inverted in lead aVL. Interpreted by me. Reviewed by me. Administered Medications: 15:12 Not Given (Physician Discretion): hydrALAZINE 10 mg IV at calculated rate once cp 15:29 Drug: NS 0.9% 250 ml Route: IV; Rate: bolus; Site: right forearm; ss 15:51 Follow up: IV Status: Completed infusion; IV Intake: 250ml ss Disposition: 02/18 11:11 Co-signature as Attending Physician, Hari Simmons MD I agree with the assessment and iron plan of care. Disposition: 02/17/19 16:33 Discharged to Home. Impression: Hypertensive heart disease. - Condition is Stable. - Discharge Instructions: Hypertension. - Prescriptions for amlodipine 10 mg Oral tablet - take 1 tablet by ORAL route Every night; 30 tablet. - Medication Reconciliation Form, Thank You Letter, Antibiotic Education, Prescription Opioid Use form. - Follow up: Ayaan Ni MD; When: 2 - 3 days; Reason: Recheck today's complaints. - Problem is new. - Symptoms have improved. - Notes: Increase Amlodipine blood pressure medication to 10 mg at night Signatures: Dispatcher [employer] EDRebecca Mathis RN RN aj1 Hari Simmons MD MD cha Smirch, Shelby, RN RN ss Hari Lara PA PA cp Corrections: (The following items were deleted from the chart) 02/17 16:41 16:33 02/17/2019 16:33 Discharged to Home. Impression: Hypertensive heart disease. ss Condition is Stable. Forms are Medication Reconciliation Form, Thank You Letter, Antibiotic Education, Prescription Opioid Use. Follow up: Ayaan Ni; When: 2 - 3 days; Reason: Recheck today's complaints. Problem is new. Symptoms have improved. cp
[2019-02-17 17:14] VITALS: O2SAT 97
[2019-02-17 17:15] VITALS: TEMP 98.5
[2019-02-17 17:21] VITALS: BP 171/56
[2019-02-17 18:12] LABS: Urine Blood NEGATIVE (NEG); Urine Glucose NEGATIVE (NEG); Urine Protein NEGATIVE (NEG); Urine Specific Gravity 1.015 (1.005-1.030)
--- NOTE | 2019-02-18 06:29 | EKG ---
Test Date: 2019-02-17 Test Time: 14:47:11 Family [employer] Consumer Education Teacher: CHRIS MEASUREMENT RESULTS: Intervals: Rate: 64 WI: QRSD: 98 QT: 436 QTc: 449 [place]: P: WI: QRS: 29 T: 160 INTERPRETIVE STATEMENTS: Atrial fibrillation ST & T wave abnormality, consider lateral ischemia or digitalis effect Abnormal ECG Compared to ECG 01/26/2019 12:56:13 ST (T wave) deviation now present Possible ischemia now present Left ventricular hypertrophy no longer present Myocardial infarct finding no longer present Electronically Signed On 02-18-19 06:28:48 CDT by Ayaan Ni
== END 2019-02-17 16:41 | disposition home or self-care (01) ==
LOC: ER 13:38
DX: I11.9 Hypertensive heart disease without heart failure (principal); E11.9 Type 2 diabetes mellitus without complications; I48.91 Unspecified atrial fibrillation; E78.5 Hyperlipidemia, unspecified; F90.9 Attention-deficit hyperactivity disorder, unspecified type; Z79.01 Long term (current) use of anticoagulants; Z88.5 Allergy status to narcotic agent; Z88.6 Allergy status to analgesic agent; Z88.8 Allergy status to other drugs, medicaments and biological substances; Z91.041 Radiographic dye allergy status
CPT/HCPCS: 36415; 70450; 71045; 80048; 80076; 81003; 81015; 83735; 83880; 84484; 85025; 85610; 93005; 96365; 99285

== ENCOUNTER 2019-02-18 18:56 | Observation (INO) | payer OTHER ==
--- OUTSIDE RECORDS SUMMARY | 2019-02-18 18:59 | XMS REPORT ---
:1935 Author Organization [facility] Address [address] [place] [address] [address] [place] [address] Care Team Providers Name Role Phone DORY MEJIA Unavailable Unavailable Problems This patient has no known problems. Allergies, Adverse Reactions, Alerts This patient has no known allergies or adverse reactions. Medications This patient has no known medications. Results Test Description Test Time Test Comments Text Results Atomic Results Result Comments NV, ANGIOGRAM, 2017-11-22 11:37:00 Reason for FINAL REPORT PATIENT ID: CEREBRAL exam:->TIAs [id number] November 22, 2017 CLINICAL HISTORY: 82 years [...] guidance and strict sterile technique a 4 Tuvaluan femoral sheath was inserted into the right common femoral artery. Through the sheath a 4 Tu[place]uan vertebral catheter was then advanced over the [...] MDReport Verified Date/Time: 11/22/2017 11:37:47 Reading Location: [facility] Y018 Neuro Angio Reading Room -GLUCOSE METER 2017-11-22 07:43:00 Test Item Value Reference Range Comments POC-GLUCOSE METER (BEAKER) (test 149 mg/dL 70-[address] [facility] [address] [facility] uzus=[id number]) [facility] [address] [id number] 06:46:00 Test Item Value Reference Range Comments MAGNESIUM (BEAKER) (test qilg=752) 2.0 mg/dL 1.6-2.6 BASIC METABOLIC [id number] 06:46:00 Test Item Value Reference Range Comments SODIUM (BEAKER) (test 133 meq/L 136-145 fbjq=884) POTASSIUM (BEAKER) (test 4.4 meq/L 3.5-5.1 xbwt=225) CHLORIDE (BEAKER) (test 99 meq/L 98-107 cldt=218) CO2 (BEAKER) (test 25 meq/L 22-29 twzm=647) BLOOD UREA NITROGEN 11 mg/dL 7-21 (BEAKER) (test wbxl=893) CREATININE (BEAKER) (test 0.65 mg/dL 0.57-1.25 zrpq=746) GLUCOSE RANDOM (BEAKER) 162 mg/dL 70-105 (test rlhc=266) CALCIUM (BEAKER) (test 9.5 mg/dL 8.4-10.2 atqr=431) EGFR (BEAKER) (test 87 mL/min/1.73 sq m ESTIMATED GFR IS NOT whzr=1329) ACCURATE CREATININE CLEARANCE IN PREDICTING GLOMERULAR FILTRATION RATE. ESTIMATED GFR IS NOT APPLICABLE FOR DIALYSIS PATIENTS. [id number] 06:33:00 Test Item Value Reference Range Comments PROTIME (BEAKER) (test inlw=594) 15.5 seconds 11.7-14.7 INR (BEAKER) (test mazi=385) 1.2 <=5.9 PARTIAL THROMBOPLASTIN TIME (BEAKER) (test 35.9 seconds 22.5-36.0 lnle=145) RECOMMENDED COUMADIN/WARFARIN INR THERAPY RANGESSTANDARD DOSE: 2.0 - 3.0 Includes: PROPHYLAXIS forvenous thrombosis, systemic embolization; TREATMENT for venous thrombosis and/or pulmonary embolus.HIGH RISK: Target INR is 2.5-3.5 for patients with mechanical heart valves.POCT-GLUCOSE [id number] 06:22:00 Test Item Value Reference Range Comments POC-GLUCOSE METER (BEAKER) 161 mg/dL 70-[address] [facility] [address] [facility] (test qkuf=7246) [facility] [address] POCT-GLUCOSE [id number] 02:08:00 Test Item Value Reference Range Comments POC-GLUCOSE METER (BEAKER) 182 mg/dL 70-[address] [facility] [address] [facility] (test ksfd=1015) [facility] [address] POCT-GLUCOSE [id number] 19:30:00 Test Item Value Reference Range Comments POC-GLUCOSE METER (BEAKER) 146 mg/dL 70-[address] [facility] [address] [facility] (test vecw=7543) [facility] [address] CT, CAROTID, [id number] 14:54:00Please include aortaFINAL REPORT CT angiogram of [...] the left ICA terminus. There is also zfck-nq-quscdikh multifocal narrowing of the right carotid siphon. [...] of the right carotid siphon. Signed: [facility] Verified Date/Time: 11/21/2017 14:54:26 Reading Location: [facility] Radiology Reading Room [facility] [id number] 14:54:00FINAL REPORT CT angiogram of the upper [...] the left ICA terminus. There is also fbbg-mw-zqjgflba multifocal narrowing of the right carotid siphon. [...] Mcdaniels Verified Date/Time: 11/21/2017 14:54:26 Reading Location: [facility] Radiology Reading Room POCT-GLUCOSE [id number] 11:50:00 Test Item Value Reference Range Comments POC-GLUCOSE METER (BEAKER) 153 mg/dL 70-[address] [facility] [address] [facility] (test mloz=9358) [facility] [address] POCT-GLUCOSE [id number] 08:08:00 Test Item Value Reference Range Comments POC-GLUCOSE METER (BEAKER) 125 mg/dL 70-[address] [facility] [address] [facility] (test wlkq=3119) [facility] [address] [id number] 06:43:00 Test Item Value Reference Range Comments MAGNESIUM (BEAKER) (test ttob=507) 2.1 mg/dL 1.6-2.6 BASIC METABOLIC [id number] 06:43:00 Test Item Value Reference Range Comments SODIUM (BEAKER) (test 136 meq/L 136-145 veir=138) POTASSIUM (BEAKER) (test 4.0 meq/L 3.5-5.1 xvln=269) CHLORIDE (BEAKER) (test 101 meq/L 98-107 ztzi=344) CO2 (BEAKER) (test 27 meq/L 22-29 midb=185) BLOOD UREA NITROGEN 12 mg/dL 7-21 (BEAKER) (test rvao=029) CREATININE (BEAKER) (test 0.68 mg/dL 0.57-1.25 lfsd=463) GLUCOSE RANDOM (BEAKER) 122 mg/dL 70-105 (test tewb=779) CALCIUM (BEAKER) (test 9.5 mg/dL 8.4-10.2 mxda=912) EGFR (BEAKER) (test 83 mL/min/1.73 sq m ESTIMATED GFR IS NOT hbil=6367) ACCURATE CREATININE CLEARANCE IN PREDICTING GLOMERULAR FILTRATION RATE. ESTIMATED GFR IS NOT APPLICABLE FOR DIALYSIS PATIENTS. TSH/FREE T4 IF [id number] 22:12:00 Test Item Value Reference Range Comments THYROID STIMULATING HORMONE (BEAKER) (test 4.66 uIU/mL 0.35-4.94 zndk=554) [id number] 21:54:00 Test Item Value Reference Range Comments MAGNESIUM (BEAKER) (test yxrw=485) 2.0 mg/dL 1.6-2.6 BASIC METABOLIC [id number] 21:54:00 Test Item Value Reference Range Comments SODIUM (BEAKER) (test 134 meq/L 136-145 amew=596) POTASSIUM (BEAKER) (test 4.1 meq/L 3.5-5.1 bhoh=810) CHLORIDE (BEAKER) (test 101 meq/L 98-107 itqd=501) CO2 (BEAKER) (test 24 meq/L 22-29 shqt=634) BLOOD UREA NITROGEN 11 mg/dL 7-21 (BEAKER) (test qqls=718) CREATININE (BEAKER) (test 0.65 mg/dL 0.57-1.25 ihmo=701) GLUCOSE RANDOM (BEAKER) 126 mg/dL 70-105 (test eeuf=675) CALCIUM (BEAKER) (test 9.5 mg/dL 8.4-10.2 akcs=017) EGFR (BEAKER) (test 87 mL/min/1.73 sq m ESTIMATED GFR IS NOT asgh=2330) ACCURATE CREATININE CLEARANCE IN PREDICTING GLOMERULAR FILTRATION RATE. ESTIMATED GFR IS NOT APPLICABLE FOR DIALYSIS PATIENTS. LIPID [id number] 21:54:00 Test Item Value Reference Range Comments TRIGLYCERIDES (BEAKER) (test sxcp=909) 70 mg/dL CHOLESTEROL (BEAKER) (test wveg=668) 101 mg/dL HDL CHOLESTEROL (BEAKER) (test fzia=086) 39 mg/dL LDL CHOLESTEROL CALCULATED (BEAKER) (test 48 mg/dL kksd=138) Triglyceride Reference Range: Low Risk <150 Borderline 150- 199 High Risk 200-499 Very High Risk >=500Cholesterol Reference Range: Low Risk <200 Borderline 200-239 High Risk > 240HDL Cholesterol Reference Range: Low Risk >=60 High Risk <40LDL Cholesterol Reference Range: Optimal <100 Near Optimal 100-129 Borderline 130-159 High 160-189 Very High >=190POCT-GLUCOSE [id number] 21:35:00 Test Item Value Reference Range Comments POC-GLUCOSE METER (BEAKER) 128 mg/dL 70-110 TESTED AT [address] (test latt=1500) [facility] [address] POCT-GLUCOSE [id number] 17:55:00 Test Item Value Reference Range Comments POC-GLUCOSE METER (BEAKER) 113 mg/dL 70-110 TESTED AT [address] (test ypqe=9066) [facility] [address] POCT-GLUCOSE [id number] 12:32:00 Test Item Value Reference Range Comments POC-GLUCOSE METER (JANNETH) 120 mg/dL 70-110 TESTED AT [place] [address] [facility] gvwk=9521) [facility] [address] MR, MRA, BRAIN, WITHOUT [id number] 11:33:00Reason for exam:-> Ischemic Stroke EvaluationFINAL REPORT MRA Head and Neck CLINICAL HISTORY: CVA TECHNIQUE: MRA of the head utilizing 3-D nmnl-dg-iljebq technique, with 3-D reconstructions. MRA of the [...] There is no other evidence for a [place] proximal branch vessel occlusion. There [...] Verified Date/Time: 11/20/2017 11:33:14 Reading Location : [facility] C013V Neuro Reading Room MR, MRA, NECK, WITHOUT IV [id number] 11:33: 00Reason for exam:->Ischemic Stroke EvaluationFINAL REPORT MRA Head and Neck CLINICAL HISTORY: CVA TECHNIQUE: MRA of the head utilizing 3-D lrln-ew-rsopre technique, with 3-D reconstructions. MRA of the neck utilizing 2-D and 3-D dhvz-sq-tucgze technique, with 3-D reconstructions. COMPARISON: None FINDINGS: [...] There is no other evidence for a [place] proximal branch vessel occlusion. There [...] Verified Date/Time: 11/20/2017 11 :33:14 Reading Location: [address] Neuro Reading Room MR, BRAIN, WITHOUT [id number] 11:05:00Reason for exam:->Ischemic Stroke EvaluationFINAL REPORT MRI [...] MDReport Verified Date/Time: 11/20/2017 11:05:05 Reading Location: [address] Neuro Reading Room HEMOGLOBIN [id number] 09:08:00 Test Item Value Reference Range Comments HEMOGLOBIN A1C (BEAKER) (test yemi=908) 6.1 % 4.3-6.1 POCT-GLUCOSE [id number] 08:27:00 Test Item Value Reference Range Comments POC-GLUCOSE METER ([facility]) 125 mg/dL 70-[address] [facility] [address] [facility] (test felh=1124) [facility] [address] TSH/FREE T4 IF [id number] 07:47:00 Test Item Value Reference Range Comments THYROID STIMULATING HORMONE (BEAKER) (test 5.97 uIU/mL 0.35-4.94 bont=463) VITAMIN [id number] 07:44:00 Test Item Value Reference Range Comments VITAMIN B12 (BEAKER) (test kwsq=594) 857 pg/mL 213-816 CBC W/PLT COUNT & AUTO [id number] 06:47:00 Test Item Value Reference Range Comments WHITE BLOOD CELL COUNT (BEAKER) (test kmwv=881) 8.3 K/ L 3.5-10.5 RED BLOOD CELL COUNT (BEAKER) (test vqwb=048) 4.11 M/ L 3.93-5.22 HEMOGLOBIN (BEAKER) (test jebi=739) 13.4 GM/DL 11.2-15.7 HEMATOCRIT (BEAKER) (test etkc=565) 39.7 % 34.1-44.9 MEAN CORPUSCULAR VOLUME (BEAKER) (test lsbe=536) 96.6 fL 79.4-94.8 MEAN CORPUSCULAR HEMOGLOBIN (BEAKER) (test 32.6 pg 25.6-32.2 qzcn=224) MEAN CORPUSCULAR HEMOGLOBIN CONC (BEAKER) (test 33.8 GM/DL 32.2-35.5 bdpu=659) RED CELL DISTRIBUTION WIDTH (BEAKER) (test 12.1 % 11.7-14.4 lwhd=992) PLATELET COUNT (BEAKER) (test vpsh=298) 209 K/CU MM 150-450 MEAN PLATELET VOLUME (BEAKER) (test khtt=647) 9.7 fL 9.4-12.3 NUCLEATED RED BLOOD CELLS (BEAKER) (test 0 /100 WBC 0-0 crsk=840) NEUTROPHILS RELATIVE PERCENT (BEAKER) (test 49 % vksb=206) LYMPHOCYTES RELATIVE PERCENT (BEAKER) (test 35 % blcr=028) MONOCYTES RELATIVE PERCENT (BEAKER) (test 12 % nqxq=213) EOSINOPHILS RELATIVE PERCENT (BEAKER) (test 4 % colk=489) BASOPHILS RELATIVE PERCENT (BEAKER) (test 1 % jxbi=255) NEUTROPHILS ABSOLUTE COUNT (BEAKER) (test 4.02 K/ L 1.56-6.13 oult=136) LYMPHOCYTES ABSOLUTE COUNT (BEAKER) (test 2.89 K/ L 1.18-3.74 rrlh=804) MONOCYTES ABSOLUTE COUNT (BEAKER) (test 0.95 K/ L 0.24-0.36 xfjv=668) EOSINOPHILS ABSOLUTE COUNT (BEAKER) (test 0.35 K/ L 0.04-0.36 hglq=891) BASOPHILS ABSOLUTE COUNT (BEAKER) (test 0.04 K/ L 0.01-0.08 oumv=813) IMMATURE GRANULOCYTES-RELATIVE PERCENT (BEAKER) 0 % 0-1 (test jooy=4034) POCT-GLUCOSE [id number] 22:09:00 Test Item Value Reference Range Comments POC-GLUCOSE METER (BEAKER) 130 mg/dL 70-[address] [facility] [address] [facility] (test vwxt=4962) [facility] [address]
--- OUTSIDE RECORDS SUMMARY | 2019-02-18 18:59 | XMS REPORT | Clinical Summary ---
:1935 Author Organization [facility] Address [address] [place] [address] Care Team Providers Name Role Phone Unavailable [...] Not on file Results Not on fileafter 02/17/2018 Insurance Payer Benefit Plan / Group Subscriber ID Type Phone Address [facility] xxxxxxxxx Maps Contracted Advance Directives For more information, please contact:[address] [phone] Code Status Date Activated Date Inactivated Comments Partial Code 11/19/2017 10:17 PM 11/22/2017 6:56 PM This code status was determined by: Patient Drug Protocol After Arrest Occurs? No Mechanical Ventilation with Intubation? No Bag/Mask? No Internal/External Pacemaker? No Transfer to Critical Care? No Chest Compressions? No Defibrillation/Cardioversion? No
--- OUTSIDE RECORDS SUMMARY | 2019-02-18 19:00 | XMS REPORT ---
[...] End Status Dosage System Date Date Fluconazole ALC [id number] 150 MG Orally Sep 15, Active 1 tablet today one tab a week 2018 and may repeat one tab in 1 week if no improvement Results No Known Results Summary Purpose eClinicalWorks Submission
--- OUTSIDE RECORDS SUMMARY | 2019-02-18 19:00 | XMS REPORT ---
[...] End Status Dosage System Date Date Omeprazole [facility] 33775288435 40 MG orally Active 1 EACH daily in AM ONCE A DAY HydrALAZINE HCl [facility] 01315742152 50 MG Orally Active 1 tablet Four times a with food day Vitamin D3 [facility] 68838721080 1000 UNIT Active 1 capsule Orally Once a day Cyanocobalamin [facility] [address]-17 1000 MCG/15ML Active 15 ml Orally Once a day Metformin HCl [facility] 05112447891 500 MG Orally Active 1 tablet Twice a day with meals Omeprazole [facility] 82562004665 40 Active 1 EACH ONCE A DAY Coreg [facility] 72101806334 25 MG Orally Active not defined Bactrim DS [facility] 66413442199 800-160 MG January Active 1 tablet Orally Twice a , 2017 Toviaz [facility] 57501897899 8 MG Orally Active 1 tablet Once a day Valsartan [facility] 22281032591 160 MG Orally Active 1 tablet Once a day Verapamil HCl ER [facility] 43338472230 240 MG Orally Active 1 capsule Once a day Eliquis [facility] 48118375873 5 MG Orally Active 1 tablet twice a day Metformin HCl [facility] 82904612043 500 Active TAKE 1 TABLET BY MOUTH TWICE DAILY HydrALAZINE HCl [facility] 14527770996 100 MG Orally December 05, Active as Three times a 2017 day Crestor [facility] 20957406432 40 Active 1 EACH ONCE A DAY Crestor [facility] 59028433659 40 MG Active 1 EACH ONCE A DAY Plavix [facility] 51960843347 75 MG Orally Active 1 tablet Once a day Irbesartan [facility] 89302041615 150 MG Orally Active 1 tablet Once a day Results No Known Results Summary Purpose eClinicalWorks Submission
--- OUTSIDE RECORDS SUMMARY | 2019-02-18 19:00 | XMS REPORT ---
[...] End Status Dosage System Date Date Macrobid [facility] 27954619935 100 MG Orally Sep 08, Aug Active 1 capsule every 12 hrs 2018 22, with food 2018 HydrALAZINE HCl [facility] 07372729602 100 MG Orally December 05, Active as Three times a 2018 day Cyanocobalamin [facility] [address]-30 1000 MCG/15ML Active 15 ml Orally Once a day Metformin HCl [facility] 76392004273 500 MG Orally Active 1 tablet Twice a day with meals Bactrim DS ND 75802200946 800-160 MG January Active 1 tablet Orally Twice a 30, day [address] [facility] 82978722722 150 MG Orally Active 1 tablet Once a day Crestor [facility] 60053715132 40 MG Active 1 EACH ONCE A DAY Valsartan [facility] 52426093958 160 MG Orally Active 1 tablet Once a day HydrALAZINE HCl [facility] 43707506961 50 MG Orally Active 1 tablet Four times a with food day Eliquis [facility] 39514099940 5 MG Orally Active 1 tablet twice a day Metformin HCl [facility] 29613473256 500 Active TAKE 1 TABLET BY MOUTH TWICE DAILY Crestor [facility] 47745790783 40 Active 1 EACH ONCE A DAY Coreg [facility] 69188261385 25 MG Orally Active not defined Omeprazole [facility] 05119575282 40 Active 1 EACH ONCE A DAY Toviaz [facility] 88581014244 8 MG Orally Active 1 tablet Once a day Plavix [facility] 10759161908 75 MG Orally Active 1 tablet Once a day Verapamil HCl ER [facility] 02093989779 240 MG Orally Active 1 capsule Once a day Omeprazole [facility] 11617862105 40 MG orally Active 1 EACH daily in AM ONCE A DAY Vitamin D3 [facility] 02993493410 1000 UNIT Active 1 capsule Orally Once a day Results No Known Results Summary Purpose eClinicalWorks Submission
--- OUTSIDE RECORDS SUMMARY | 2019-02-18 19:00 | XMS REPORT ---
[...] Dosage System Date Date Verapamil HCl ER [facility] 35239328998 240 MG Orally Active 1 capsule Once a day Bactrim DS [facility] 73589524842 800-160 MG January Active 1 tablet Orally Twice a , 2017 Metformin HCl [facility] 94026744137 500 MG Orally Active 1 tablet Twice a day with meals Valsartan [facility] 61868860434 160 MG Orally Active 1 tablet Once a day Plavix ND 97431097778 75 MG Orally Active 1 tablet Once a day Vitamin D3 ND 44517217326 1000 UNIT Active 1 capsule Orally Once a day Toviaz [facility] 06947942443 8 MG Orally Active 1 tablet Once a day Eliquis [facility] 02719457973 5 MG Orally Active 1 tablet twice a day Crestor [facility] 99410132744 40 MG Active 1 EACH ONCE A DAY HydrALAZINE HCl [facility] 89916859660 50 MG Orally Active 1 tablet Four times a with food day Cyanocobalamin [facility] [address]-32 1000 MCG/15ML Active 15 ml Orally Once a day Omeprazole [facility] 10207736524 40 MG orally Active 1 EACH daily in AM ONCE A DAY HydrALAZINE HCl [facility] 14548394104 100 MG Orally December 05, Active as Three times a 2018 day Coreg [facility] 32010825650 25 MG Orally Active not defined Results No Known Results Summary Purpose eClinicalWorks Submission
--- OUTSIDE RECORDS SUMMARY | 2019-02-18 19:01 | XMS REPORT ---
[...] Dosage System Date Date Verapamil HCl ER [facility] 69123879051 240 MG Orally Active 1 capsule Once a day Metformin HCl [facility] 17853448011 500 Active TAKE 1 TABLET BY MOUTH TWICE DAILY Metformin HCl [facility] 22602712686 500 MG Orally Active 1 tablet with Twice a day meals Eliquis [facility] 00639743712 5 MG Orally Active 1 tablet twice a day Coreg ND 74117388834 25 MG Orally Active not defined Crestor [facility] 34833709067 40 Active 1 EACH ONCE A DAY Vitamin D3 [facility] 81599438425 1000 UNIT Active 1 capsule Orally Once a day HydrALAZINE HCl ND 45358433783 100 MG Orally December 05, Active as directed Three times a 2017 day Bactrim DS [facility] 92019843557 800-160 MG January Active 1 tablet Orally Twice a , 2017 Metformin HCl [facility] 04593025089 500 Active TAKE 1 TABLET BY MOUTH TWICE DAILY HydrALAZINE HCl [facility] 66746306707 50 MG Orally Active 1 tablet with Four times a food day Fluconazole ND 79587108378 150 MG Orally Sep 15, Active 1 tablet one tab a week 2019 today and may repeat one tab in 1 week if no improvement Carvedilol [facility] 66706694657 25 MG Orally Active as directed Irbesartan [facility] 32173380350 150 MG Orally Active 1 tablet Once a day Omeprazole [facility] 14220079683 40 Active 1 EACH ONCE A DAY Crestor [facility] 99442548282 40 Active 1 EACH ONCE A DAY Valsartan [facility] 82923200280 160 MG Orally Active 1 tablet Once a day Cyanocobalamin [facility] [address]-28 1000 MCG/15ML Active 15 ml Orally Once a day Bactrim DS [facility] 16545969903 800-160 MG December Active 1 tablet Orally Twice a , 2018 Plavix [facility] 09834260158 75 MG Orally Active 1 tablet Once a day Omeprazole [facility] 49053796777 40 MG orally Active 1 EACH ONCE A daily in AM DAY Crestor [facility] 35840299858 40 MG Active 1 EACH ONCE A DAY Toviaz [facility] 48974741810 8 MG Orally Active 1 tablet Once a day Results No Known Results Summary Purpose eClinicalWorks Submission
--- OUTSIDE RECORDS SUMMARY | 2019-02-18 19:01 | XMS REPORT ---
[...] Status Dosage System Date Date Carvedilol ND 85231539990 25 MG Orally Active as directed Omeprazole ND 54557002027 40 MG orally Active 1 EACH ONCE A daily in AM DAY Vitamin D3 ND 68000669788 1000 UNIT Active 1 capsule Orally Once a day Metformin HCl ND 27252536570 500 MG Orally Active 1 tablet with Twice a day meals Valsartan ND 00913022313 160 MG Orally Active 1 tablet Once a day HydrALAZINE HCl ND 48524256549 50 MG Orally Active 1 tablet with Four times a food day Eliquis [facility] 00101130257 5 MG Orally Active 1 tablet twice a day Crestor [facility] 28482375861 40 Active 1 EACH ONCE A DAY HydrALAZINE HCl [facility] 27040374414 100 MG Orally December 05, Active as directed Three times a 2017 day Fluconazole ND 63018723308 150 MG Orally Sep 15, Active 1 tablet one tab a week 2019 today and may repeat one tab in 1 week if no improvement Verapamil HCl ER [facility] 19648877806 240 MG Orally Active 1 capsule Once a day Irbesartan [facility] 29390195766 150 MG Orally Active 1 tablet Once a day Coreg [facility] 34374121976 25 MG Orally Active not defined Omeprazole [facility] 46625130905 40 Active 1 EACH ONCE A DAY Toviaz [facility] 21280686638 8 MG Orally Active 1 tablet Once a day Metformin HCl [facility] 77664620951 500 Active TAKE 1 TABLET BY MOUTH TWICE DAILY Cyanocobalamin [facility] [address]-12 1000 MCG/15ML Active 15 ml Orally Once a day Crestor [facility] 45110293598 40 MG Active 1 EACH ONCE A DAY Metformin HCl [facility] 27651842447 500 Active TAKE 1 TABLET BY MOUTH TWICE DAILY Bactrim DS [facility] 96173844807 800-160 MG January Active 1 tablet Orally Twice a , 2017 Bactrim DS [facility] 25470798795 800-160 MG December Active 1 tablet Orally Twice a , 2018 Plavix [facility] 49944887963 75 MG Orally Active 1 tablet Once [...]
--- OUTSIDE RECORDS SUMMARY | 2019-02-18 19:01 | XMS REPORT ---
[...] Dosage System Date Date Vitamin D3 ND 76038890213 1000 UNIT Active 1 capsule Orally Once a day Cyanocobalamin [facility] [address]-23 1000 MCG/15ML Active 15 ml Orally Once a day Crestor ND 25399649629 40 Active 1 EACH ONCE A DAY HydrALAZINE HCl ND 66928191357 100 MG Orally December 05, Active as directed Three times a 2017 day Valsartan ND 10406399700 160 MG Orally Active 1 tablet Once a day Estradiol ND 90710023594 0.1 MG/GM January Active as directed Vaginal Two , times a Week 2018 Omeprazole [facility] 31993657525 40 Active 1 EACH ONCE A DAY Verapamil HCl ER [facility] 24444726689 240 MG Orally Active 1 capsule Once a day Carvedilol ND 81995080542 25 MG Orally Active as directed HydrALAZINE HCl [facility] 96250583982 50 MG Orally Active 1 tablet with Four times a food day Sertraline HCl ND 51656815772 25 MG Orally January Active 1 tablet Once a day 2018 Sertraline HCl [facility] 02610207772 25 Orally Once Active 1 tablet a day Fluconazole [facility] 69224665348 150 MG Orally Sep 15, Active 1 tablet one tab a week 2019 today and may repeat one tab in 1 week if no improvement Metformin HCl ND 20473978084 500 Active TAKE 1 TABLET BY MOUTH TWICE DAILY Metformin HCl [facility] 11084287275 500 MG Orally Active 1 tablet with Twice a day meals Eliquis [facility] 57643872820 5 MG Orally Active 1 tablet twice a day Toviaz [facility] 00105689283 8 MG Orally Active 1 tablet Once a day Metformin HCl [facility] 68231563024 500 Active TAKE 1 TABLET BY MOUTH TWICE DAILY Omeprazole [facility] 52733758889 40 MG orally Active 1 EACH ONCE A daily in AM DAY Coreg [facility] 76438644026 25 MG Orally Active not defined Crestor [facility] 86029559685 40 MG Active 1 EACH ONCE A DAY Bactrim DS [facility] 65495509754 800-160 MG December Active 1 tablet Orally Twice a , 2018 Irbesartan ND 59189361916 150 MG Orally Active 1 tablet Once a day Plavix [facility] 66821149271 75 MG Orally Active 1 tablet Once a day Bactrim DS [facility] 32137796258 800-160 MG January Active 1 tablet Orally Twice a , 2017 Results No Known Results Summary Purpose eClinicalWorks Submission
[2019-02-18 19:39] LABS: Absolute Lymphocytes (CBC) 1.9 K/uL (0.7-4.9); Basophils % 0.5 % (0-1.3); Hematocrit 38.6 % (36.0-45.0); MPV 7.8 fL (7.6-11.3); RBC Red Blood Cell Count 4.05 M/uL (3.86-4.86)
[2019-02-18 19:47] LABS: Protime INR 1.12
[2019-02-18 20:00] LABS: ALT/SGPT 25 U/L (12-78); AST/SGOT 16 U/L (15-37); Albumin 3.7 g/dL (3.4-5.0); Alkaline Phosphatase 106 U/L (45-117); BUN Blood Urea Nitrogen 14 mg/dL (7-18); Bicarbonate 29 mmol/L (21-32); Bilirubin Direct 0.2 mg/dL (0-0.2); Bilirubin Total 0.4 mg/dL (0.2-1.0); Glucose Level 189 mg/dL (74-106); NT PRO-BNP 1132 pg/mL (<450); Protein, Total 7.2 g/dL (6.4-8.2); Sodium Level 127 mmol/L (136-145); Troponin (Emerg Dept Use Only) < 0.02 ng/mL (0.0-0.045)
--- NOTE | 2019-02-18 21:35 | EDPHYS ---
Physician Documentation [facility] Name: Radha Lara Age: 83 yrs Sex: Female : 1935 Arrival Date: 02/18/2019 Time: 19:02 Bed 13 Private MD: Elli Britt ED Physician Vega Gomez HPI: 02/18 22:09 This 83 yrs old Female presents to ER via Wheelchair with complaints of High tw4 Blood Pressure, Headache, Vomiting, Feel cold. 22:09 The patient has elevated blood pressure and discovered this at home. Onset: The tw4 symptoms/episode began/occurred 2 day(s) ago. Modifying factors: The symptoms are aggravated by. Associated signs and symptoms: Pertinent positives: headache, nausea, vomiting. Severity of symptoms: At its worst the blood pressure was moderate, 200 mm Hg. The patient has not experienced similar symptoms in the past. Historical: - Allergies: 19:11 Aspirin; ak1 19:11 Clonidine; ak1 19:11 Codeine; ak1 19:11 Ibuprofen; ak1 19:11 vicoden; ak1 19:11 nitrous oxide; ak1 19:11 Nitrofurantoin; ak1 19:11 Niacin; ak1 19:11 Lisinopril; ak1 19:11 Iodinated Contrast Media - IV Dye; ak1 - Home Meds: 19:11 amlodipine 10 mg oral tab 1 tab once daily for Hypertension [Active]; cranberry Oral ak1 twice a day [Active]; carvedilol 25 mg Oral tab 1 tab 2 times per day [Active]; Crestor 40 mg Oral tab once daily [Active]; Eliquis 5 mg Oral tab 2 times per day [Active]; hydralazine 100 mg Oral tab 3 times per day [Active]; irbesartan 150 mg Oral tab 1 tab once daily [Active]; metformin 500 mg Oral Tb24 1 tab 2 times per day [Active]; magnesium oxide 500 mg Oral cap [Active]; Multiple Vitamins Oral tab daily [Active]; omeprazole 40 mg Oral cpDR 1 cap once daily [Active]; Plavix 75 mg Oral tab 1 tab once daily [Active]; Probiotic Oral [Active]; sertraline 50 mg Oral tab 1 tab once daily [Active]; Vitamin B-12 2,000 mcg Oral TbER daily [Active]; Vitamin D3 1,000 unit Oral chew daily [Active]; vitamin E Oral once daily [Active]; - PMHx: 19:11 acid reflux; ADD/ADHD; Atrial Fib; CVA; Diabetes - NIDDM; Hyperlipidemia; UTI; TIA; ak1 Kidney stones; Hypertension; - PSHx: 19:11 Hysterectomy; Tonsillectomy; Cholecystectomy; Heart stents; DVT; triple bypass; ak1 catatact sx; - Immunization history:: Adult Immunizations unknown. - Social history:: Smoking status: Patient/guardian denies using tobacco. - Ebola Screening: : No symptoms or risks identified at this time. ROS: 22:09 Constitutional: Negative for fever, chills, and weight loss, Eyes: Negative for injury, tw4 pain, redness, and discharge, Cardiovascular: Negative for chest pain, palpitations, and edema, Respiratory: Negative for shortness of breath, cough, wheezing, and pleuritic chest pain, Back: Negative for injury and pain, MS/Extremity: Negative for injury and deformity, Neuro: Negative for headache, weakness, numbness, tingling, and seizure. 22:09 Abdomen/GI: Positive for nausea and vomiting, nausea, vomiting, and diarrhea, nausea, vomiting, diarrhea, Negative for abdominal pain, abdominal cramps, abdominal distension, anorexia, black/tarry stool, rectal pain, bowel incontinence. Exam: 22:09 Constitutional: This is a well developed, well nourished patient who is awake, alert, tw4 and in no acute distress. Head/Face: Normocephalic, atraumatic. Chest/axilla: Normal chest wall appearance and motion. Nontender with no deformity. No lesions are appreciated. Cardiovascular: Regular rate and rhythm with a normal S1 and S2. No gallops, murmurs, or rubs. Normal PMI, no JVD. No pulse deficits. Respiratory: Lungs have equal breath sounds bilaterally, clear to auscultation and percussion. No rales, rhonchi or wheezes noted. No increased work of breathing, no retractions or nasal flaring. Abdomen/GI: Soft, non-tender, with normal bowel sounds. No distension or tympany. No guarding or rebound. No evidence of tenderness throughout. MS/ Extremity: Pulses equal, no cyanosis. Neurovascular intact. Full, normal range of motion. Neuro: Awake and alert, GCS 15, oriented to person, place, time, and situation. Cranial nerves II-XII grossly intact. Motor strength 5/5 in all extremities. Sensory grossly intact. Cerebellar exam normal. Normal gait. Vital Signs: 19:11 BP 189 / 65; Pulse 70; Resp 18; Temp 97.7(O); Pulse Ox 96% on R/A; Weight 65.77 kg (R); ak1 Height 5 ft. 2 in. (157.48 cm) (R); Pain 4/10; 20:30 BP 164 / 48; Pulse 72; Resp 18; Pulse Ox 95% on R/A; jb4 21:30 BP 172 / 62; Pulse 72; Resp 16; Pulse Ox 98% on R/A; jb4 22:30 BP 155 / 64; Pulse 71; Resp 18; Temp 97.4(TE); Pulse Ox 94% ; jb4 19:11 Body Mass Index 26.52 (65.77 kg, 157.48 cm) ak1 MDM: 19:09 Patient medically screened. tw4 22:09 Differential diagnosis: hypertensive crisis, Malignant HTN. Data reviewed: vital signs, tw4 nurses notes. Counseling: I had a detailed discussion with the patient and/or guardian regarding: the historical points, exam findings, and any diagnostic results supporting the discharge/admit diagnosis. Special discussion: I discussed with the patient/guardian in detail that at this point there is no indication for admission to the hospital. It is understood, however, that if the symptoms persist or worsen the patient needs to return immediately for re-evaluation. 02/18 19:15 Order name: Basic Metabolic Panel; Complete Time: 21:04 tw4 02/18 19:15 Order name: CBC with Diff; Complete Time: 21:04 tw4 02/18 19:15 Order name: LFT's; Complete Time: 21:04 tw4 02/18 19:15 Order name: Magnesium; Complete Time: 21:04 tw4 02/18 19:15 Order name: NT PRO-BNP; Complete Time: 21:04 tw02/18 19:15 Order name: PT-INR; Complete Time: 21:04 02/18 19:15 Order name: Troponin (emerg Dept Use Only); Complete Time: 21:04 tw4 02/18 19:15 Order name: EKG; Complete Time: 19:18 02/18 19:15 Order name: Cardiac monitoring; Complete Time: :32 02/18 19:15 Order name: EKG - Nurse/Tech; Complete Time: 19:32 02/18 19:15 Order name: IV Saline Lock; Complete Time: 19:32 02/18 19:15 Order name: Labs collected and sent; Complete Time: :32 02/18 19:15 Order name: O2 Per Protocol; Complete Time: :32 02/18 19:15 Order name: O2 Sat Monitoring; Complete Time: :32 tw4 Administered Medications: 21:30 Drug: NS 0.9% 1000 ml Route: IV; Rate: 125 ml/hr; Site: left antecubital; jb4 21:40 Drug: Zofran 4 mg Route: IVP; Site: left antecubital; jb4 Disposition: 02/18/19 21:33 Hospitalization ordered by Arben Martin for Observation. Preliminary diagnosis are Hypo-osmolality and hyponatremia, intractable nausea and vomiting. - Bed requested for Telemetry/MedSurg (observation). - Status is Observation. jb4 - Condition is Fair. - Problem is an ongoing problem. - Symptoms are unchanged. UTI on Admission? No Signatures: Dispatcher [employer] EDMS Sandrine Gaytan RN RN ak1 Janine Kong RN RN cg Jose Arteaga RN RN jb4 Vega oGmez MD MD tw4 Corrections: (The following items were deleted from the chart) 21:34 21:33 Hospitalization Ordered by Arben Martin DO for Observation. Preliminary tw4 diagnosis is Hypo-osmolality and hyponatremia. Bed requested for Telemetry/MedSurg (observation). Status is Observation. Condition is Fair. Problem is an ongoing problem. Symptoms are unchanged. UTI on Admission? No. tw4 22:25 21:34 02/18/2019 21:33 Hospitalization Ordered by Arben Martin DO for Observation. Preliminary diagnosis is Hypo-osmolality and hyponatremia; intractable nausea and vomiting. Bed requested for Telemetry/MedSurg (observation). Status is Observation. Condition is Fair. Problem is an ongoing problem. Symptoms are unchanged. UTI on Admission? No. tw4 23:21 22:25 02/18/2019 21:33 Hospitalization Ordered by Arben Martin DO for Observation. jb4 Preliminary diagnosis is Hypo-osmolality and hyponatremia; intractable nausea and vomiting. Bed requested for Telemetry/MedSurg (observation). Status is Observation. Condition is Fair. Problem is an ongoing problem. Symptoms are unchanged. UTI on Admission? No. cg
--- NOTE | 2019-02-18 21:35 | ER ---
Nurse's Notes [facility] Name: Radha Lara Age: 83 yrs Sex: Female : 1935 Arrival Date: 02/18/2019 Time: 19:02 Bed 13 Private MD: Elli Britt Diagnosis: Hypo-osmolality and hyponatremia;intractable nausea and vomiting Presentation: 02/18 19:12 Presenting complaint: Patient states: headache, neck pain, high blood pressure, ak1 vomiting. pt seen in ER yesterday with same s/s. Transition of care: patient was not received from another setting of care. Onset of symptoms is unknown. Risk Assessment: Do you want to hurt yourself or someone else? Patient reports no desire to harm self or others. Initial Sepsis Screen: Does the patient meet any 2 criteria? No. Patient's initial sepsis screen is negative. Does the patient have a suspected source of infection? No. Patient's initial sepsis screen is negative. Care prior to arrival: None. 19:12 Method Of Arrival: Wheelchair ak1 19:12 Acuity: YOLANDE 3 ak1 Triage Assessment: 19:11 General: Appears in no apparent distress. uncomfortable, ill, Behavior is cooperative. ak1 Historical: - Allergies: 19:11 Aspirin; ak1 19:11 Clonidine; ak1 19:11 Codeine; ak1 19:11 Ibuprofen; ak1 19:11 vicoden; ak1 19:11 nitrous oxide; ak1 19:11 Nitrofurantoin; ak1 19:11 Niacin; ak1 19:11 Lisinopril; ak1 19:11 Iodinated Contrast Media - IV Dye; ak1 - Home Meds: 19:11 amlodipine 10 mg oral tab 1 tab once daily for Hypertension [Active]; cranberry Oral ak1 twice a day [Active]; carvedilol 25 mg Oral tab 1 tab 2 times per day [Active]; Crestor 40 mg Oral tab once daily [Active]; Eliquis 5 mg Oral tab 2 times per day [Active]; hydralazine 100 mg Oral tab 3 times per day [Active]; irbesartan 150 mg Oral tab 1 tab once daily [Active]; metformin 500 mg Oral Tb24 1 tab 2 times per day [Active]; magnesium oxide 500 mg Oral cap [Active]; Multiple Vitamins Oral tab daily [Active]; omeprazole 40 mg Oral cpDR 1 cap once daily [Active]; Plavix 75 mg Oral tab 1 tab once daily [Active]; Probiotic Oral [Active]; sertraline 50 mg Oral tab 1 tab once daily [Active]; Vitamin B-12 2,000 mcg Oral TbER daily [Active]; Vitamin D3 1,000 unit Oral chew daily [Active]; vitamin E Oral once daily [Active]; - PMHx: 19:11 acid reflux; ADD/ADHD; Atrial Fib; CVA; Diabetes - NIDDM; Hyperlipidemia; UTI; TIA; ak1 Kidney stones; Hypertension; - PSHx: 19:11 Hysterectomy; Tonsillectomy; Cholecystectomy; Heart stents; DVT; triple bypass; ak1 catatact sx; - Immunization history:: Adult Immunizations unknown. - Social history:: Smoking status: Patient/guardian denies using tobacco. - Ebola Screening: : No symptoms or risks identified at this time. Screenin:15 Abuse screen: Denies threats or abuse. Nutritional screening: No deficits noted. jb4 Tuberculosis screening: No symptoms or risk factors identified. Fall Risk None identified. Assessment: 19:15 General: Appears in no apparent distress. uncomfortable, Behavior is calm, cooperative, jb4 appropriate for age. Pain: Complains of pain in abdomen, Headache. Pain does not radiate. Pain currently is 3 out of 10 on a pain scale. Quality of pain is described as aching, Pain began 1 day ago. Is intermittent. Neuro: Level of Consciousness is awake, alert, obeys commands, Oriented to person, place, time, situation, Moves all extremities. Speech is normal, Facial symmetry appears normal. Cardiovascular: Patient's skin is warm and dry. Respiratory: Airway is patent Respiratory effort is even, unlabored, Respiratory pattern is regular, symmetrical. GI: Bowel sounds present X 4 quads. Abd is soft and non tender X 4 quads. Reports lower abdominal pain, nausea, vomiting. : No signs and/or symptoms were reported regarding the genitourinary system. EENT: No signs and/or symptoms were reported regarding the EENT system. Derm: Skin is intact, Skin is pink, warm \T\ dry. Musculoskeletal: Circulation, motion, and sensation intact. Range of motion: intact in all extremities. 20:15 Reassessment: Patient appears in no apparent distress at this time. Patient and/or jb4 family updated on plan of care and expected duration. Pain level reassessed. Patient is alert, oriented x 3, equal unlabored respirations, skin warm/dry/pink. 21:43 Reassessment: Patient appears in no apparent distress at this time. Patient and/or jb4 family updated on plan of care and expected duration. Pain level reassessed. Patient is alert, oriented x 3, equal unlabored respirations, skin warm/dry/pink. Dr. Martin is at the bedside. 22:29 Reassessment: Patient appears in no apparent distress at this time. Patient and/or jb4 family updated on plan of care and expected duration. Pain level reassessed. Patient is alert, oriented x 3, equal unlabored respirations, skin warm/dry/pink. 23:00 Reassessment: Patient appears in no apparent distress at this time. Patient and/or jb4 family updated on plan of care and expected duration. Pain level reassessed. Patient is alert, oriented x 3, equal unlabored respirations, skin warm/dry/pink. PT taken upstairs via stretcher, IV pulls and flushes with ease, saline locked for transfer. Vital Signs: 19:11 BP 189 / 65; Pulse 70; Resp 18; Temp 97.7(O); Pulse Ox 96% on R/A; Weight 65.77 kg (R); ak1 Height 5 ft. 2 in. (157.48 cm) (R); Pain 4/10; 20:30 BP 164 / 48; Pulse 72; Resp 18; Pulse Ox 95% on R/A; jb4 21:30 BP 172 / 62; Pulse 72; Resp 16; Pulse Ox 98% on R/A; jb4 22:30 BP 155 / 64; Pulse 71; Resp 18; Temp 97.4(TE); Pulse Ox 94% ; jb4 19:11 Body Mass Index 26.52 (65.77 kg, 157.48 cm) ak1 ED Course: 19:02 Patient arrived in ED. es 19:02 Elli Britt MD is Private Physician. es 19:09 Vega Gomez MD is Attending Physician. tw4 19:11 Jose Arteaga, LAILA is Primary Nurse. jb4 19:11 Arm band placed on Patient placed in an exam room, on a stretcher, on pulse oximetry, ak1 Patient notified of wait time. 19:13 Triage completed. ak1 19:15 Patient has correct armband on for positive identification. Bed in low position. Call jb4 light in reach. Side rails up X 1. Pulse ox on. NIBP on. 19:18 Missed attempt(s): 22 gauge in right forearm. sc 19:25 Initial lab(s) drawn, by me, sent to lab. Inserted saline lock: 20 gauge in left jb4 antecubital area, using aseptic technique. Blood collected. Patient admitted, IV remains in place. 21:33 Arben Martin DO is Hospitalizing Provider. tw4 23:00 No provider procedures requiring assistance completed. jb4 Administered Medications: 21:30 Drug: NS 0.9% 1000 ml Route: IV; Rate: 125 ml/hr; Site: left antecubital; jb4 21:40 Drug: Zofran 4 mg Route: IVP; Site: left antecubital; jb4 Outcome: 21:33 Decision to Hospitalize by Provider. tw4 22:49 Admitted to Tele accompanied by tech, via stretcher, room 229, with chart, Report bb called to Dulce ULLOA 23:00 Condition: stable jb4 23:00 Instructed on the need for admit, Demonstrated understanding of instructions. 23:21 Patient left the ED. jb4 Signatures: Viki Wong Brenda, RN RN bb Sandrine Gaytan RN RN ak1 Jose Arteaga RN RN jb4 Thompson, Moriah mt Wadley, Terrence, MD MD tw4
[2019-02-18] MEDS ORDERED: NA CHLORIDE 0.9% 1,000 ML ONE (21:44)
[2019-02-18] MEDS ORDERED: ONDANSETRON 4 MG/2 ML VIAL ONE (21:51)
--- NOTE | 2019-02-18 22:04 | P.HP ---
Certification for Inpatient Patient admitted to: Observation With expected LOS: <2 Midnights Patient will require the following post-hospital care: None Practitioner: I am a practitioner with admitting privileges, knowledge of patient current condition, hospital course, and medical plan of care. Services: Services provided to patient in accordance with Admission requirements found in Title 42 Section 412.3 of the Code of Federal Regulations Patient History Date of Service: 02/18/19 Primary Care Provider: Dr. Britt; Cardiology-Dr. Ni Reason for admission: Nausea, vomiting and weakness History of Present Illness: 83-year-old female presented to the emergency room with nausea, vomiting and weakness. Patient with underlying hypertension, diabetes mellitus type 2 non-insulin dependent, hyperlipidemia, history of TIA, atrial fibrillation on chronic anti coagulation therapy, GERD and depression. Patient was actually seen yesterday for nausea and elevated blood pressure. The patient was released from the emergency room yesterday. Her amlodipine was increased to 10 mg daily for better blood pressure control. Actually her blood pressure medication was recently changed by Cardiology as mentioned by the patient. She was previously was taking verapamil. This was changed to amlodipine. She also reports recent start of Zoloft this past week for underlying depression. She is going through a lot of stress at home. Her has Alzheimer's him requires a lot of attention. She has been very tired and weak since. Today she was not able to keep anything down. She came to the ER for further evaluation. In the ER patient was evaluated. White count 7.6, hemoglobin 12.9, sodium 127, potassium 4.0 %period% creatinine 0.5 with a GFR greater than 90. Glucose 189. Troponin within normal range. Patient was given some IV fluids in the emergency room. She was given medication for nausea. She was admitted for further observation. When I saw the patient ER, she appeared stable. No sick contacts noted. She denies any diarrhea, constipation, fever or abdominal pain. As mentioned above recent start of Zoloft was noted. She initially did not want to take medication. Allergies aspirin Adverse Reaction (Verified 06/28/17 21:58) RAPID HEART RATE clonidine Adverse Reaction (Verified 06/28/17 21:58) Rapid Heart Rate codeine [Codeine] Adverse Reaction (Verified 06/28/17 21:58) CONFUSION hydrocodone bitartrate [From Vicodin] Adverse Reaction (Verified 06/28/17 21:58) CONFUSION iodine Adverse Reaction (Verified 06/28/17 21:58) NAUSEA lisinopril Adverse Reaction (Verified 06/28/17 21:58) COUGH niacin Adverse Reaction (Verified 06/28/17 21:58) Rash nitrofurantoin Adverse Reaction (Verified 11/14/17 15:31) Itching/Hives/Rash nitrous oxide [Nitrous Oxide] Adverse Reaction (Verified 06/28/17 21:58) Shortness of breath iodine dye Allergy (Intermediate, Uncoded 06/28/17 21:58) Itching/Hives/Rash Home medications list reviewed: Yes Home Medications: Carvedilol [Coreg*] 25 mg PO BID 05/22/14 Cranberry Conc/Ascorbic Acid [Cranberry 12,600 mg Softgel] 4,200 mg PO BID 05/22 Multivitamin [One-Daily Multi-Vitamin] 1 each PO DAILY 05/22/14 Omeprazole [Prilosec] 1 tab PO DAILY 05/22/14 Vitamin E [Vitamin E*] 400 iu PO DAILY 09/30/14 Apixaban [Eliquis] 5 mg PO BID 11/13/15 Metformin HCl [Glucophage*] 1 tab PO BID 11/13/15 Verapamil HCl [Verapamil ER] 240 mg PO BEDTIME 11/13/15 Cyanocobalamin [Vitamin B-12*] 2,000 mcg PO DAILY 11/17/15 Magnesium Oxide [Magnesium] 500 mg PO DAILY 05/15/16 Acetaminophen [Tylenol Arthritis] 1 tab PO Q6H PRN 11/14/17 Cholecalciferol (Vitamin D3) [Vitamin D3] 1,000 unit PO DAILY 11/14/17 Hydralazine [Apresoline*] 100 mg PO TID #90 tab 11/15/17 Clopidogrel Bisulfate [Plavix*] 75 mg PO BEDTIME 01/02/19 Irbesartan [Avapro*] 150 mg PO DAILY 01/02/19 Rosuvastatin Calcium [Crestor] 40 mg PO BEDTIME 01/02/19 - Past Medical/Surgical History Diabetic: Yes -: History of nephrolithiasis -: History of TIA -: History of pulmonary embolism on chronic anti coagulation therapy -: Diabetes mellitus type 2, [id number] -: CAD -: GERD -: Atrial fibrillation on chronic anti coagulation therapy -: Hyperlipidemia -: HTN -: Depression with anxiety -: Tonsillectomy -: Removal of colon polyps -: CABG -: Cholecystectomy -: Hysterectomy -: Bone Spurs removed -: Triple Bypass -: 3 Stents in right kidney Psychosocial/ Personal History: Patient lives at home. 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 - Family History Family History: Reviewed- Non-Contributory - Family History Mother -: Heart disease, Other (see notes) Notes: [place]. Age of 64 Father -: Heart disease Notes: Age of 77 - Social History Smoking Status: Never smoker Alcohol use: No CD- Drugs: No Caffeine use: No Place of Residence: Home Review of Systems General: Weakness, Malaise, As per HPI Eyes: Unremarkable ENT: Unremarkable Respiratory: Unremarkable Cardiovascular: Unremarkable Gastrointestinal: Nausea, Vomiting, As per HPI Genitourinary: Unremarkable Musculoskeletal: Unremarkable Integumentary: Unremarkable Neurological: Weakness, As per HPI Lymphatics: Unremarkable Physical Examination - Physical Exam General: Alert, In no apparent distress, Oriented x3, Cooperative HEENT: Atraumatic, Normocephalic, PERRLA, Other (Dry mucous membranes) Neck: Supple, No Thyromegaly Respiratory: Clear to auscultation bilaterally, Normal air movement Cardiovascular: Normal pulses, Regular rate/rhythm Gastrointestinal: Normal bowel sounds, Soft and benign, Non-distended, No tenderness, No masses, No rebound, No guarding Musculoskeletal: No erythema, No tenderness, No warmth Integumentary: No tenderness/swelling, No erythema, No warmth, No cyanosis Neurological: Normal speech, Normal strength at 5/5 x4 extr, Normal tone, Normal affect - Studies Laboratory Data (last 24 hrs) 02/18/19 19:30: PT 13.2 H, INR 1.12 02/18/19 19:30: WBC 7.6 D, Hgb 12.9, Hct 38.6, Plt Count 207 02/18/19 19:30: Sodium 127 L, Potassium 4.0, BUN 14, Creatinine 0.58, Glucose 189 H, Magnesium 2.0, Total Bilirubin 0.4, AST 16, ALT 25, Alkaline Phosphatase 106 Assessment and Plan - Plan Impression: Fatigue, nausea and vomiting likely secondary to medication-Zoloft Hyponatremia likely from mild dehydration, nausea and vomiting Hypertension Diabetes mellitus type 2, [id number] Atrial fibrillation on chronic anti coagulation therapy GERD CAD with prior CABG History of TIA Depression with anxiety Plan: Fatigue, nausea and vomiting likely secondary to medication-Zoloft: Patient will be admitted for observation. Will hydrate patient with IV fluids. Will discontinue Zoloft as this was recently started this past week. This is the likely cause of her fatigue, nausea and vomiting. Will recommend to discontinue Zoloft entirely. Will check tsh and free T4. Likely discharge tomorrow with clinical improvement. Hyponatremia likely from mild dehydration, nausea and vomiting: Hyponatremia likely from hypovolemia. Will check urine sodium and osmolarity. Will start low-dose IV fluids. Will advance diet as tolerated. Hypertension: Will continue with her home medication of carvedilol 25 mg 1 pill twice daily, hydralazine 100 mg 3 times a day, Irbesartan 150 mg daily and amlodipine 10 mg daily. Will monitor and adjust appropriately. Diabetes mellitus type 2, [id number]: Will restart metformin 500 mg 1 pill twice daily. Will provide insulin sliding scale. Will monitor Accu- Cheks. Atrial fibrillation on chronic anti coagulation therapy: Will continue with Eliquis 5 mg 1 pill twice daily. No need for DVT prophylaxis since the patient is taking Eliquis. GERD: Will provide Protonix 40 mg daily. Patient takes Prilosec at home. CAD with prior CABG: Continue with Plavix. History of TIA: Continue with Plavix. Depression with anxiety: Will recommend to discontinue Zoloft as this is the likely cause of her fatigue, nausea and vomiting. Will recommend counseling instead of medication. Patient did not initially want to start medication from the beginning. There is increased stress at home as she takes care of her who has Alzheimer's. Will recommend to continue help at home. Discharge Plan: Home Plan to discharge in: 24 Hours - Advance Directives Does patient have a Living Will: No Does patient have a Durable POA for Healthcare: No - Code Status/Comfort Care Code Status Assessed: Yes (Patient is full code) Time Spent Managing Pts Care (In Minutes): 55
[2019-02-18] MEDS ORDERED: ONDANSETRON 4 MG/2 ML VIAL IV PRN (22:56)
[2019-02-18] MEDS ORDERED: NA CHLORIDE 0.9% 1,000 ML IV SCH (22:56)
[2019-02-18] MEDS ORDERED: ACETAMINOPHEN 500 MG TAB PO PRN (22:56)
[2019-02-18] MEDS ORDERED: D50W 25 GM/50 ML SYRINGE IV PRN (22:56)
[2019-02-18] MEDS ORDERED: GLUCAGON 1 MG/VIAL IM PRN (22:56)
[2019-02-18 23:08] VITALS: BMI 25.2
[2019-02-18 23:57] VITALS: O2SAT 94
[2019-02-19] MEDS ORDERED: CARVEDILOL 25 MG TAB PO SCH (06:00)
[2019-02-19] MEDS ORDERED: PANTOPRAZOLE 40MG TABLET PO SCH (06:30)
[2019-02-19 06:34] LABS: BUN Blood Urea Nitrogen 8 mg/dL (7-18); Bicarbonate 28 mmol/L (21-32); Glucose Level 132 mg/dL (74-106); Magnesium 2.1 mg/dL (1.8-2.4); Potassium 3.7 mmol/L (3.5-5.1); Sodium Level 136 mmol/L (136-145)
[2019-02-19 07:23] LABS: Urine Appearance CLEAR; Urine Bilirubin NEGATIVE (NEG); Urine Blood NEGATIVE (NEG); Urine Color YELLOW; Urine Glucose NEGATIVE (NEG); Urine Protein NEGATIVE (NEG); Urine Specific Gravity <=1.005 (1.005-1.030); Urine Urobilinogen 0.2 mg/dL (0.2-1.0); Urine pH 7.5 (5.0-7.0)
[2019-02-19 07:24] LABS: Urine Microscopic Reflex NO UMIC
[2019-02-19] MEDS: INSULIN -REGULAR HUMAN 50 UNIT/0.5 ML ML SQ SCH ×2 (07:30→11:30)
--- NOTE | 2019-02-19 07:39 | EKG ---
Test Date: 2019-02-18 Test Time: 19:25:02 Metalsmith Helper: DORA MEASUREMENT RESULTS: Intervals: Rate: 67 KS: QRSD: 100 QT: 390 QTc: 412 Carbon: P: KS: QRS: 47 T: 136 INTERPRETIVE STATEMENTS: Atrial fibrillation Septal infarct, age undetermined ST & T wave abnormality, consider lateral ischemia Abnormal ECG Compared to ECG 02/17/2019 14:47:11 Myocardial infarct finding now present ST (T wave) deviation still present Possible ischemia still present Electronically Signed On 02-19-19 07:39:17 CDT by Ayaan Ni
[2019-02-19] MEDS ORDERED: METFORMIN HCL 500 MG TAB PO SCH (08:00)
[2019-02-19] MEDS: HYDRALAZINE HCL 25 MG TABLET PO SCH ×2 (08:54→12:26)
[2019-02-19] MEDS ORDERED: POTASSIUM CL SA 10 MEQ TAB PO ONE (09:00)
[2019-02-19] MEDS ORDERED: APIXABAN 5 MG TABLET PO SCH (09:00)
[2019-02-19] MEDS ORDERED: AMLODIPINE 10 MG TAB PO SCH (09:00)
[2019-02-19] MEDS ORDERED: MULTIVITAMIN TAB PO SCH (09:00)
[2019-02-19] MEDS ORDERED: CLOPIDOGREL 75 MG TABLET PO SCH (09:00)
[2019-02-19] MEDS ORDERED: IRBESARTAN 150 MG TAB PO SCH (09:00)
[2019-02-19 12:48] VITALS: BP 181/73; TEMP 97
--- NOTE | 2019-02-19 16:17 | P.SSS ---
Patient History Date of Service: 02/19/19 Primary Care Provider: Dr. Britt; Cardiology-Dr. Ni Reason for admission: Nausea, vomiting and weakness History of Present Illness: 83-year-old female presented to the emergency room with nausea, vomiting and weakness. Patient with underlying hypertension, diabetes mellitus type 2 non-insulin dependent, hyperlipidemia, history of TIA, atrial fibrillation on chronic anti coagulation therapy, GERD and depression. Patient was actually seen yesterday for nausea and elevated blood pressure. The patient was released from the emergency room yesterday. Her amlodipine was increased to 10 mg daily for better blood pressure control. Actually her blood pressure medication was recently changed by Cardiology as mentioned by the patient. She was previously was taking verapamil. This was changed to amlodipine. She also reports recent start of Zoloft this past week for underlying depression. She is going through a lot of stress at home. Her has Alzheimer's him requires a lot of attention. She has been very tired and weak since. Today she was not able to keep anything down. She came to the ER for further evaluation. In the ER patient was evaluated. White count 7.6, hemoglobin 12.9, sodium 127, potassium 4.0 %period% creatinine 0.5 with a GFR greater than 90. Glucose 189. Troponin within normal range. Patient was given some IV fluids in the emergency room. She was given medication for nausea. She was admitted for further observation. When I saw the patient ER, she appeared stable. No sick contacts noted. She denies any diarrhea, constipation, fever or abdominal pain. As mentioned above recent start of Zoloft was noted. She initially did not want to take medication. Allergies aspirin Adverse Reaction (Verified 06/28/17 21:58) RAPID HEART RATE clonidine Adverse Reaction (Verified 06/28/17 21:58) Rapid Heart Rate codeine [Codeine] Adverse Reaction (Verified 06/28/17 21:58) CONFUSION hydrocodone bitartrate [From Vicodin] Adverse Reaction (Verified 06/28/17 21:58) CONFUSION iodine Adverse Reaction (Verified 06/28/17 21:58) NAUSEA lisinopril Adverse Reaction (Verified 06/28/17 21:58) COUGH niacin Adverse Reaction (Verified 06/28/17 21:58) Rash nitrofurantoin Adverse Reaction (Verified 11/14/17 15:31) Itching/Hives/Rash nitrous oxide [Nitrous Oxide] Adverse Reaction (Verified 06/28/17 21:58) Shortness of breath iodine dye Allergy (Intermediate, Uncoded 06/28/17 21:58) Itching/Hives/Rash Home Medications: Amlodipine [Norvasc*] 1 tab PO DAILY 02/18/19 Apixaban [Eliquis] 1 tab PO BID 02/18/19 Carvedilol [Coreg*] 1 tab PO BID 02/18/19 Cholecalciferol (Vitamin D3) [Vitamin D3] 1 cap PO DAILY 02/18/19 Clopidogrel Bisulfate [Plavix*] 1 tab PO DAILY 02/18/19 Cranberry 4,200 mg PO BID 02/18/19 Hydralazine HCl [Apresoline] 1 tab PO TID 02/18/19 Irbesartan [Avapro*] 1 tab PO DAILY 02/18/19 L.acidoph,Paracasei, B.lactis [Probiotic] 1 cap PO DAILY 02/18/19 Magnesium Oxide [Magnesium] 1 tab PO DAILY 02/18/19 Metformin ER [Glucophage ER*] 1 tab PO BID 02/18/19 Multivitamin [Multivitamins] 1 cap PO DAILY 02/18/19 Omeprazole [Prilosec] 1 tab PO DAILY 02/18/19 Rosuvastatin Calcium [Crestor] 1 tab PO DAILY 02/18/19 Vit B12/Iod/mg/Zn/Se/Herb#193 [Adrenoid Capsule] 1 cap PO DAILY 02/18/19 Vitamin E 1 tab PO DAILY 02/18/19 Levothyroxine [Synthroid*] 75 mcg PO [id number] #30 tab 02/19/19 - Past Medical/Surgical History Has patient received pneumonia vaccine in the past: Yes Diabetic: Yes -: History of nephrolithiasis -: History of TIA -: History of pulmonary embolism on chronic anti coagulation therapy -: Diabetes mellitus type 2, [id number] -: CAD -: GERD -: Atrial fibrillation on chronic anti coagulation therapy -: Hyperlipidemia -: HTN -: Depression with anxiety -: Tonsillectomy -: Removal of colon polyps -: CABG -: Cholecystectomy -: Hysterectomy -: Bone Spurs removed -: Triple Bypass -: 3 Stents in right kidney Psychosocial/ Personal History: Patient lives at home. 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 - Family History Family History: Reviewed- Non-Contributory - Family History Mother -: Heart disease, Other (see notes) Notes: [place]. Age of 64 Father -: Heart disease Notes: Age of 77 - Social History Smoking Status: Never smoker Alcohol use: No CD- Drugs: No Caffeine use: No Place of Residence: Home Review of Systems 10-point ROS is otherwise unremarkable Physical Examination - Vital Signs Temperature: 97.0 F Blood Pressure: 181/73 Pulse: 74 Respirations: 16 Pulse Ox (%): 95 - Physical Exam General: Alert, In no apparent distress HEENT: Atraumatic, PERRLA, Mucous membr. moist/pink, EOMI, Sclerae nonicteric Neck: Supple, 2+ carotid pulse no bruit, No LAD, Without JVD or thyroid abnormality Respiratory: Clear to auscultation bilaterally, Normal air movement Cardiovascular: Regular rate/rhythm, Normal S1 S2 Gastrointestinal: Normal bowel sounds, No tenderness Musculoskeletal: No tenderness Integumentary: No rashes Neurological: Normal gait, Normal speech, Normal strength at 5/5 x4 extr, Normal tone, Normal affect Lymphatics: No axilla or inguinal lymphadenopathy - Studies Laboratory Data (last 24 hrs) 02/18/19 19:30: PT 13.2 H, INR 1.12 02/18/19 19:30: WBC 7.6 D, Hgb 12.9, Hct 38.6, Plt Count 207 02/18/19 19:30: Sodium 127 L, Potassium 4.0, BUN 14, Creatinine 0.58, Glucose 189 H, Magnesium 2.0, Total Bilirubin 0.4, AST 16, ALT 25, Alkaline Phosphatase 106 - Diagnosis (Problem(s)) (1) Viral gastroenteritis Status: Resolved (2) Hyponatremia Status: Resolved (3) Atrial fibrillation Onset Date: 11/13/15 Status: Chronic Qualifiers: Atrial fibrillation type: chronic (4) Diabetes mellitus Onset Date: 11/13/15 Status: Chronic Qualifiers: Diabetes mellitus type: type 2 Diabetes mellitus fci insulin use: without bed bug exterminator use Diabetes mellitus complication status: without complication Qualified Code(s): E11.9 - Type 2 diabetes mellitus without complications (5) GERD (gastroesophageal reflux disease) Onset Date: 11/16/17 Status: Chronic Qualifiers: Esophagitis presence: without esophagitis Qualified Code(s): K21.9 - Gastro -esophageal reflux disease without esophagitis (6) HTN (hypertension) Onset Date: 11/16/17 Status: Chronic Qualifiers: Hypertension type: essential hypertension Qualified Code(s): I10 - Essential (primary) hypertension Treatment Summary: Patient was initially admitted to the hospital for nausea vomiting and hypernatremia most likely secondary to dehydration viral gastroenteritis. Patient was started on IV fluids here in the hospital had marked improvement in her symptoms and thus was discharged home under stable condition - Disposition Disposition: [facility] Condition: GOOD Diet: Regular Activity: Ad trvea
[2019-02-19] MEDS ORDERED: ROSUVASTATIN 10 MG TAB PO SCH (21:00)
== END 2019-02-19 14:27 | disposition home health service (06) ==
LOC: ER 18:56 → ERHOLD 21:49 → 2ND 22:49
PROVIDERS: ADMIT Family Medicine; ATTEND Family Medicine
DX: A08.4 Viral intestinal infection, unspecified (principal); R53.83 Other fatigue; E87.1 Hypo-osmolality and hyponatremia; E11.9 Type 2 diabetes mellitus without complications; I10 Essential (primary) hypertension; I48.91 Unspecified atrial fibrillation; I25.10 Atherosclerotic heart disease of native coronary artery without angina pectoris; K21.9 Gastro-esophageal reflux disease without esophagitis; F41.8 Other specified anxiety disorders; E78.5 Hyperlipidemia, unspecified; R94.31 Abnormal electrocardiogram [ECG] [EKG]; Z79.01 Long term (current) use of anticoagulants; Z79.02 Long term (current) use of antithrombotics/antiplatelets; Z79.84 Long term (current) use of oral hypoglycemic drugs; Z79.899 Other long term (current) drug therapy; Z95.1 Presence of aortocoronary bypass graft; Z86.73 Personal history of transient ischemic attack (TIA), and cerebral infarction without residual deficits; Z86.711 Personal history of pulmonary embolism
CPT/HCPCS: 93005; 85025; 80048 ×2; 36415; 83735 ×2; 85610; 84300; 82962 ×2; 80076; 84443; 81003; 84484; 84439; 83880; 83930; 83935; 96374; 99285; J7030 ×2; J2405; G0378 ×2

== ENCOUNTER 2019-04-05 14:03 | Emergency (ER) | payer OTHER ==
--- OUTSIDE RECORDS SUMMARY | 2019-04-05 14:06 | XMS REPORT | Clinical Summary ---
:1935 Author Organization [facility] Address [address] [place] [address] Care Team Providers Name Role Phone Unavailable Primary Care Provider Unavailable Allergies Active Allergy Reactions Severity Noted Date Comments Aspirin 11/19/2017 palpitations Codeine 11/19/2017 Confusion Iodinated Contrast Media 11/19/2017 vomiting Medications Medication Sig Dispensed Refills [...] Not on file Results Not on fileafter 04/04/2018 Insurance Payer Benefit Plan / Group Subscriber ID Type Phone Address [facility] xxxxxxxxx Maps Contracted Advance Directives For more information, please contact:[address] [phone] Code Status Date Activated Date Inactivated Comments Partial Code 11/19/2017 10:17 PM 11/22/2017 6:56 PM This code status was determined by: Patient Drug Protocol After Arrest Occurs? No Mechanical Ventilation with Intubation? No Bag/Mask? No Internal/External Pacemaker? No Transfer to Critical Care? No Chest Compressions? No Defibrillation/Cardioversion? No
--- OUTSIDE RECORDS SUMMARY | 2019-04-05 14:07 | XMS REPORT ---
:1935 [facility] Organization [facility] Address [address] [place] [address] [address] [place] [address] Care Team Providers Name Role Phone DORY MEJIA Unavailable Unavailable Problems This patient has no known problems. Allergies, Adverse Reactions, Alerts This patient has no known allergies or adverse reactions. Medications This patient has no known medications. Results Test Description Test Time Test Comments Text Results Atomic Results Result Comments NV, ANGIOGRAM, 2017-11-22 11:37:00 Reason for FINAL REPORT PATIENT ID: CEREBRAL exam:->TIAs [id number] November 22, 2017 CLINICAL HISTORY: 82 years [...] guidance and strict sterile technique a 4 Australian femoral sheath was inserted into the right common femoral artery. Through the sheath a 4 Australian vertebral catheter was then advanced over the [...] MDReport Verified Date/Time: 11/22/2017 11:37:47 Reading Location: [facility] Y018 Neuro Angio Reading Room -GLUCOSE METER 2017-11-22 07:43:00 Test Item Value Reference Range Comments POC-GLUCOSE METER (BEAKER) (test 149 mg/dL 70-110 TESTED AT [facility] [address] teow=2928) [facility] [address] [id number] 06:46:00 Test Item Value Reference Range Comments MAGNESIUM (BEAKER) (test gltx=629) 2.0 mg/dL 1.6-2.6 BASIC METABOLIC [id number] 06:46:00 Test Item Value Reference Range Comments SODIUM (BEAKER) (test 133 meq/L 136-145 ujhz=132) POTASSIUM (BEAKER) (test 4.4 meq/L 3.5-5.1 vlms=430) CHLORIDE (BEAKER) (test 99 meq/L 98-107 sxbh=079) CO2 (BEAKER) (test 25 meq/L 22-29 dkfg=726) BLOOD UREA NITROGEN 11 mg/dL 7-21 (BEAKER) (test lbpl=738) CREATININE (BEAKER) (test 0.65 mg/dL 0.57-1.25 yfht=533) GLUCOSE RANDOM (BEAKER) 162 mg/dL 70-105 (test gyuj=278) CALCIUM (BEAKER) (test 9.5 mg/dL 8.4-10.2 saxq=849) EGFR (BEAKER) (test 87 mL/min/1.73 sq m ESTIMATED GFR IS NOT joxn=3080) ACCURATE CREATININE CLEARANCE IN PREDICTING GLOMERULAR FILTRATION RATE. ESTIMATED GFR IS NOT APPLICABLE FOR DIALYSIS PATIENTS. PT/[id number] 06:33:00 Test Item Value Reference Range Comments PROTIME (BEAKER) (test selv=787) 15.5 seconds 11.7-14.7 INR (BEAKER) (test npur=140) 1.2 <=5.9 PARTIAL THROMBOPLASTIN TIME (BEAKER) (test 35.9 seconds 22.5-36.0 bwho=326) RECOMMENDED COUMADIN/WARFARIN INR THERAPY RANGESSTANDARD DOSE: 2.0 - 3.0 Includes: PROPHYLAXIS forvenous thrombosis, systemic embolization; TREATMENT for venous thrombosis and/or pulmonary embolus.HIGH RISK: Target INR is 2.5-3.5 for patients with mechanical heart valves.POCT-GLUCOSE [id number] 06:22:00 Test Item Value Reference Range Comments POC-GLUCOSE METER (BEAKER) 161 mg/dL 70-110 TESTED AT [facility] [address] (test tqei=6535) [facility] [address] POCT-GLUCOSE [id number] 02:08:00 Test Item Value Reference Range Comments POC-GLUCOSE METER (BEAKER) 182 mg/dL 70-110 TESTED AT [facility] [address] [facility] (test olmz=7269) [facility] [address] POCT-GLUCOSE [id number] 19:30:00 Test Item Value Reference Range Comments POC-GLUCOSE METER (BEAKER) 146 mg/dL 70-110 TESTED AT [facility] [address] (test ldyw=8671) [facility] [address] CT, CAROTID, [id number] 14:54:00Please include aortaFINAL REPORT CT angiogram of [...] the left ICA terminus. There is also aufn-fy-dboixqck multifocal narrowing of the right carotid siphon. [...] center Verified Date/Time: 11/21/2017 14:54:26 Reading Location: [facility] Radiology Reading [facility] [id number] 14:54:00FINAL REPORT CT angiogram of the upper [...] the left ICA terminus. There is also apgk-uh-ypcbxwyo multifocal narrowing of the right carotid siphon. [...] Mcdaniels Verified Date/Time: 11/21/2017 14:54:26 Reading Location: [facility] Radiology Reading Room POCT-GLUCOSE [id number] 11:50:00 Test Item Value Reference Range Comments POC-GLUCOSE METER (BEAKER) 153 mg/dL 70-110 TESTED AT [facility] [address] (test wylv=1717) [facility] [address] POCT-GLUCOSE [id number] 08:08:00 Test Item Value Reference Range Comments POC-GLUCOSE METER (BEAKER) 125 mg/dL 70-110 TESTED AT [facility] [address] (test ptbc=2487) [facility] [address] [id number] 06:43:00 Test Item Value Reference Range Comments MAGNESIUM (BEAKER) (test rwzi=256) 2.1 mg/dL 1.6-2.6 BASIC METABOLIC [id number] 06:43:00 Test Item Value Reference Range Comments SODIUM (BEAKER) (test 136 meq/L 136-145 sysm=026) POTASSIUM (BEAKER) (test 4.0 meq/L 3.5-5.1 bdit=378) CHLORIDE (BEAKER) (test 101 meq/L 98-107 mept=105) CO2 (BEAKER) (test 27 meq/L 22-29 cofh=215) BLOOD UREA NITROGEN 12 mg/dL 7-21 (BEAKER) (test lvxl=840) CREATININE (BEAKER) (test 0.68 mg/dL 0.57-1.25 sbio=198) GLUCOSE RANDOM (BEAKER) 122 mg/dL 70-105 (test lnek=907) CALCIUM (BEAKER) (test 9.5 mg/dL 8.4-10.2 bpio=415) EGFR (BEAKER) (test 83 mL/min/1.73 sq m ESTIMATED GFR IS NOT kufb=3986) ACCURATE CREATININE CLEARANCE IN PREDICTING GLOMERULAR FILTRATION RATE. ESTIMATED GFR IS NOT APPLICABLE FOR DIALYSIS PATIENTS. TSH/FREE T4 IF [id number] 22:12:00 Test Item Value Reference Range Comments THYROID STIMULATING HORMONE (BEAKER) (test 4.66 uIU/mL 0.35-4.94 qlik=055) [id number] 21:54:00 Test Item Value Reference Range Comments MAGNESIUM (BEAKER) (test xype=536) 2.0 mg/dL 1.6-2.6 BASIC METABOLIC [id number] 21:54:00 Test Item Value Reference Range Comments SODIUM (BEAKER) (test 134 meq/L 136-145 fssc=076) POTASSIUM (BEAKER) (test 4.1 meq/L 3.5-5.1 hvjw=236) CHLORIDE (BEAKER) (test 101 meq/L 98-107 wqvb=327) CO2 (BEAKER) (test 24 meq/L 22-29 mfzy=485) BLOOD UREA NITROGEN 11 mg/dL 7-21 (BEAKER) (test yunm=512) CREATININE (BEAKER) (test 0.65 mg/dL 0.57-1.25 ohgr=896) GLUCOSE RANDOM (BEAKER) 126 mg/dL 70-105 (test kazm=375) CALCIUM (BEAKER) (test 9.5 mg/dL 8.4-10.2 bjyw=849) EGFR (BEAKER) (test 87 mL/min/1.73 sq m ESTIMATED GFR IS NOT czqm=0865) ACCURATE CREATININE CLEARANCE IN PREDICTING GLOMERULAR FILTRATION RATE. ESTIMATED GFR IS NOT APPLICABLE FOR DIALYSIS PATIENTS. LIPID [id number] 21:54:00 Test Item Value Reference Range Comments TRIGLYCERIDES (BEAKER) (test ujka=788) 70 mg/dL CHOLESTEROL (BEAKER) (test lyjw=579) 101 mg/dL HDL CHOLESTEROL (BEAKER) (test vtzc=193) 39 mg/dL LDL CHOLESTEROL CALCULATED (BEAKER) (test 48 mg/dL sopf=597) Triglyceride Reference Range: Low Risk <150 Borderline 150- 199 High Risk 200-499 Very High Risk >=500Cholesterol Reference Range: Low Risk <200 Borderline 200-239 High Risk > 240HDL Cholesterol Reference Range: Low Risk >=60 High Risk <40LDL Cholesterol Reference Range: Optimal <100 Near Optimal 100-129 Borderline 130-159 High 160-189 Very High >=190POCT-GLUCOSE [id number] 21:35:00 Test Item Value Reference Range Comments POC-GLUCOSE METER (BEAKER) 128 mg/dL 70-110 TESTED AT [address] (test lpjz=7376) [facility] [address] POCT-GLUCOSE [id number] 17:55:00 Test Item Value Reference Range Comments POC-GLUCOSE METER (BEAKER) 113 mg/dL 70-110 TESTED AT [address] (test eryc=6800) [facility] [address] POCT-GLUCOSE [id number] 12:32:00 Test Item Value Reference Range Comments POC-GLUCOSE METER (JANNETH) 120 mg/dL 70-110 [facility] [place] [address] [facility] kaxg[facility]9587[facility] [address] MR, MRA, BRAIN, WITHOUT [id number] 11:33:00Reason for exam:-> Ischemic Stroke EvaluationFINAL REPORT MRA Head and Neck CLINICAL HISTORY: CVA TECHNIQUE: MRA of the head utilizing 3-D whbd-zu-utaiks technique, with 3-D reconstructions. MRA of the [...] There is no other evidence for a [place] proximal branch vessel occlusion. There [...] Verified Date/Time: 11/20/2017 11:33:14 Reading Location : [facility] C013V Neuro Reading Room MR, MRA, NECK, WITHOUT IV [id number] 11:33: 00Reason for exam:->Ischemic Stroke EvaluationFINAL REPORT MRA Head and Neck CLINICAL HISTORY: CVA TECHNIQUE: MRA of the head utilizing 3-D tqeo-jj-vtmijc technique, with 3-D reconstructions. MRA of the neck utilizing 2-D and 3-D unsw-zk-iqhupp technique, with 3-D reconstructions. COMPARISON: None FINDINGS: [...] There is no other evidence for a [place] proximal branch vessel occlusion. There [...] Verified Date/Time: 11/20/2017 11 :33:14 Reading Location: [address] Neuro Reading Room MR, BRAIN, WITHOUT [id number] 11:05:00Reason for exam:->Ischemic Stroke EvaluationFINAL REPORT MRI [...] MDReport Verified Date/Time: 11/20/2017 11:05:05 Reading Location: [address] Neuro Reading Room HEMOGLOBIN [id number] 09:08:00 Test Item Value Reference Range Comments HEMOGLOBIN A1C (BEAKER) (test hmrf=212) 6.1 % 4.3-6.1 POCT-GLUCOSE [id number] 08:27:00 Test Item Value Reference Range Comments POC-GLUCOSE METER ([facility]) 125 mg/dL 70-110 TESTED AT [facility] [address] (test obhr=0938) [facility] [address] TSH/FREE T4 IF [id number] 07:47:00 Test Item Value Reference Range Comments THYROID STIMULATING HORMONE (BEAKER) (test 5.97 uIU/mL 0.35-4.94 ctbd=570) VITAMIN [id number] 07:44:00 Test Item Value Reference Range Comments VITAMIN B12 (BEAKER) (test kcpr=899) 857 pg/mL 213-816 CBC W/PLT COUNT & AUTO [id number] 06:47:00 Test Item Value Reference Range Comments WHITE BLOOD CELL COUNT (BEAKER) (test dgan=403) 8.3 K/ L 3.5-10.5 RED BLOOD CELL COUNT (BEAKER) (test deem=856) 4.11 M/ L 3.93-5.22 HEMOGLOBIN (BEAKER) (test oahw=792) 13.4 GM/DL 11.2-15.7 HEMATOCRIT (BEAKER) (test ptzs=444) 39.7 % 34.1-44.9 MEAN CORPUSCULAR VOLUME (BEAKER) (test lgzw=744) 96.6 fL 79.4-94.8 MEAN CORPUSCULAR HEMOGLOBIN (BEAKER) (test 32.6 pg 25.6-32.2 dxzp=388) MEAN CORPUSCULAR HEMOGLOBIN CONC (BEAKER) (test 33.8 GM/DL 32.2-35.5 hzfj=691) RED CELL DISTRIBUTION WIDTH (BEAKER) (test 12.1 % 11.7-14.4 idbt=139) PLATELET COUNT (BEAKER) (test xnzc=395) 209 K/CU MM 150-450 MEAN PLATELET VOLUME (BEAKER) (test kbon=710) 9.7 fL 9.4-12.3 NUCLEATED RED BLOOD CELLS (BEAKER) (test 0 /100 WBC 0-0 tykw=607) NEUTROPHILS RELATIVE PERCENT (BEAKER) (test 49 % wyip=308) LYMPHOCYTES RELATIVE PERCENT (BEAKER) (test 35 % oeam=329) MONOCYTES RELATIVE PERCENT (BEAKER) (test 12 % sbbs=702) EOSINOPHILS RELATIVE PERCENT (BEAKER) (test 4 % hlhy=659) BASOPHILS RELATIVE PERCENT (BEAKER) (test 1 % ylwu=514) NEUTROPHILS ABSOLUTE COUNT (BEAKER) (test 4.02 K/ L 1.56-6.13 mhsn=192) LYMPHOCYTES ABSOLUTE COUNT (BEAKER) (test 2.89 K/ L 1.18-3.74 fobj=203) MONOCYTES ABSOLUTE COUNT (BEAKER) (test 0.95 K/ L 0.24-0.36 houn=106) EOSINOPHILS ABSOLUTE COUNT (BEAKER) (test 0.35 K/ L 0.04-0.36 nxzn=342) BASOPHILS ABSOLUTE COUNT (BEAKER) (test 0.04 K/ L 0.01-0.08 hvql=679) IMMATURE GRANULOCYTES-RELATIVE PERCENT (BEAKER) 0 % 0-1 (test zrya=2974) POCT-GLUCOSE [id number] 22:09:00 Test Item Value Reference Range Comments POC-GLUCOSE METER (BEAKER) 130 mg/dL 70-110 TESTED AT [facility] [address] (test znqf=0340) [facility] [address]
--- OUTSIDE RECORDS SUMMARY | 2019-04-05 14:07 | XMS REPORT ---
:1935 Author Organization [employer] Care Team Providers Name Role Phone Lora Meyer Provider Role Unavailable Allergies, Adverse Reactions, Alerts Substance Reaction Event Type Zoloft Info Not Available Drug Allergy Vicodin Info Not Available Drug Allergy Niacin Info Not Available Drug Allergy Macrodantin Info Not Available Drug Allergy Lisinopril Info Not Available Drug Allergy Aspirin Info Not Available Drug Allergy Nitrous oxide Info Not Available Non Drug Allergy Iodine contrast dye Info Not Available Non Drug Allergy Problems Problem Type Condition Code Onset Dates Condition Status Assessment Urinary tract infection, site not N39.0 Active specified Problem Other speech disturbance R47.89 Active Problem History of TIA (transient ischemic Z86.73 Active attack) Problem Recurrent urinary tract infection N39.0 Active Problem Hospital discharge follow-up Z09 Active Problem Stenosis of left carotid artery I65.22 Active Problem Atherosclerosis I70.90 Active Problem Mixed stress and urge urinary N39.46 Active incontinence Problem Other chronic pain G89.29 Active Problem Obstructive sleep apnea G47.33 Active Problem Overactive bladder N32.81 Active Problem Acquired hypothyroidism E03.9 Active Problem 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 Active Problem Elevated TSH R79.89 Active Problem Chronic fatigue R53.82 Active Problem Stress at home F43.9 Active Problem Mild depression F32.0 Active Problem Hypertension I10 Active Problem Allergic rhinitis J30.9 Active Problem GERD (gastroesophageal reflux K21.9 Active disease) Problem Obesity E66.9 Active Problem Abnormal mammogram R92.8 Active Problem Type 2 diabetes E11.9 Active Problem Hyperlipidemia E78.5 Active Problem Chronic a-fib I48.2 Active Medications Medication Code Code Instructions Start End Status Dosage System Date Date Nystatin [facility] 24979510468 [id number] UNIT/GM Mar 12Mar Active 1 application Externally 2018 18, to affected Twice a day 2019 area Tylenol Arthritis NDC 0 Active not defined Pain Multivitamin [facility] 06938-05317 Active not defined Probiotic [facility] 04222-73888 Active not defined Fluconazole [facility] 96838774016 150 MG Orally Sep 15, Active 1 tablet one tab a week 2019 today and may repeat one tab in 1 week if no improvement Vitamin D3 [facility] 33808151443 1000 UNIT Active 1 capsule Orally Once a day Verapamil HCl ER [facility] 22817183156 240 MG Orally Active 1 capsule Once a day Ranitidine ND 0 Active not defined Vitamin E [facility] 15897-56784 Active not defined Valsartan [facility] 73550035098 160 MG Orally Active 1 tablet Once a day Cipro [facility] 63867081509 250 MG Orally Mar 24Mar Active 1 tablet twice a day 2018 Metformin HCl [facility] 22323854752 500 Active TAKE 1 TABLET BY MOUTH TWICE DAILY Metformin HCl [facility] 27376814215 500 Active TAKE 1 TABLET BY MOUTH TWICE DAILY HydrALAZINE HCl [facility] 69670603879 100 MG Orally December 05, Active as directed Three times a 2017 day Verapamil HCl [facility] [address]-91 Active not defined Cyanocobalamin [facility] [address]-55 1000 MCG/15ML Active 15 ml Orally Once a day Magnesium ND 0 Active not defined Crestor [facility] 07262371714 40 MG Active 1 EACH ONCE A DAY Vitamin B-12 [facility] 60942-35408 Active not defined Plavix [facility] 51049013695 75 MG Orally Active 1 tablet Once a day Omeprazole [facility] 93191856967 40 MG orally Active 1 EACH ONCE A daily in DAY Cranberry [facility] 65195-47747 Active not defined Concentrate Levothyroxine [facility] [address]-03 Active not defined Sodium Estradiol [facility] 29632995842 0.1 MG/GM January Active as directed Vaginal Two 22, times a Week 2018 HydrALAZINE HCl [facility] 43521931736 50 MG Orally Active 1 tablet with Four times a food day Sertraline HCl [facility] 35558570275 25 Orally Once Active 1 tablet a day Eliquis [facility] 50391577152 5 MG Orally Active 1 tablet twice a day Irbesartan [facility] 12349067951 150 MG Orally Active 1 tablet Once a day Bactrim DS [facility] 34127074277 800-160 MG January Active 1 tablet Orally Twice a 30, day 2017 Metformin HCl [facility] 76237090779 500 MG Orally Active 1 tablet with Twice a day meals Omeprazole [facility] 73154759648 40 Active TAKE 1 CAPSULE BY MOUTH EVERY DAY Amlodipine [facility] 01459672098 10 MG Orally Feb 28, Active 1 tablet Besylate Once a day 2018 Carvedilol [facility] 04684207168 25 MG Orally Active as directed Sertraline HCl [facility] 26517570983 25 MG Orally Active 1 tablet Once a day Bactrim DS [facility] 62983690899 800-160 MG December Active 1 tablet Orally Twice a 2018 Toviaz [facility] 48684366549 8 MG Orally Active 1 tablet Once a day Results Name Result Date Reference Range Unit Abnormality Flag URINALYSIS AUTO W/O SCOPE (10531) ----ANDREA TRACE [id number] ----NIT POS [id number] ----PROTEIN TRACE 20190324 ----pH 7.0 20190324 ----GLUCOSE Trace 20190324 ----KETONES NEG 20190324 ----SPECIFIC GRAVITY 1.015 20190324 ----BLO NEG 20190324 Summary Purpose [employer] Submission
[2019-04-05 16:00] LABS: Absolute Lymphocytes (CBC) 2.5 K/uL (0.7-4.9); Basophils % 1.1 % (0-1.3); Hematocrit 38.8 % (36.0-45.0); MPV 8.4 fL (7.6-11.3); RBC Red Blood Cell Count 4.05 M/uL (3.86-4.86)
[2019-04-05 16:07] LABS: Protime INR 1.35
[2019-04-05 16:16] LABS: ALT/SGPT 30 U/L (12-78); AST/SGOT 19 U/L (15-37); Albumin 4.2 g/dL (3.4-5.0); Alkaline Phosphatase 114 U/L (45-117); BUN Blood Urea Nitrogen 16 mg/dL (7-18); Bicarbonate 27 mmol/L (21-32); Bilirubin Direct 0.2 mg/dL (0-0.2); Bilirubin Total 0.5 mg/dL (0.2-1.0); Glucose Level 127 mg/dL (74-106); NT PRO-BNP 1027 pg/mL (<450); Potassium 4.5 mmol/L (3.5-5.1); Protein, Total 7.9 g/dL (6.4-8.2); Sodium Level 136 mmol/L (136-145); Troponin (Emerg Dept Use Only) < 0.02 ng/mL (0.0-0.045)
[2019-04-05 16:17] LABS: Magnesium 2.3 mg/dL (1.8-2.4)
[2019-04-05 17:10] LABS: Urine Blood NEGATIVE (NEG); Urine Glucose NEGATIVE (NEG); Urine Protein NEGATIVE (NEG); Urine Specific Gravity 1.015 (1.005-1.030)
[2019-04-05 17:10] LABS: Urine Bacteria <20 /HPF (<20); Urine Culture Reflex Order NOT NEEDED; Urine RBC <5 /HPF (NONE SEEN)
--- NOTE | 2019-04-05 17:13 | EDPHYS ---
Physician Documentation [facility] Name: Radha Lara Age: 83 yrs Sex: Female : 1935 Arrival Date: 04/05/2019 Time: 14:07 Bed 28 Private MD: Elli Britt ED Physician Jonathan Galicia HPI: 04/05 14:57 This 83 yrs old Female presents to ER via Wheelchair with complaints of jr8 Weakness, Dizziness. 14:57 Patient stated while getting eye exam this afternoon had sudden onset of general jr8 weakness, fatigue, and chills. Denies any other symptoms . Severity of symptoms: At their worst the symptoms were moderate in the emergency department the symptoms are unchanged. The patient has not experienced similar symptoms in the past. The patient has been recently seen by a physician:. Historical: - Allergies: 14:37 Aspirin; iw 14:37 Clonidine; iw 14:37 Codeine; iw 14:37 Ibuprofen; iw 14:37 Iodinated Contrast Media - IV Dye; iw 14:37 Lisinopril; iw 14:37 Niacin; iw 14:37 Nitrofurantoin; iw 14:37 nitrous oxide; iw 14:37 vicoden; iw - Home Meds: 14:37 amlodipine 10 mg tab 1 tab once daily for Hypertension [Active]; carvedilol 25 mg Oral iw tab 1 tab 2 times per day [Active]; Crestor 40 mg Oral tab once daily [Active]; Eliquis 5 mg Oral tab 2 times per day [Active]; cranberry Oral twice a day [Active]; hydralazine 100 mg Oral tab 3 times per day [Active]; irbesartan 150 mg Oral tab 1 tab once daily [Active]; magnesium oxide 500 mg Oral cap [Active]; metformin 500 mg Oral Tb24 1 tab 2 times per day [Active]; Multiple Vitamins Oral tab daily [Active]; omeprazole 40 mg Oral cpDR 1 cap once daily [Active]; Plavix 75 mg Oral tab 1 tab once daily [Active]; Probiotic Oral [Active]; sertraline 50 mg Oral tab 1 tab once daily [Active]; Vitamin B-12 2,000 mcg Oral TbER daily [Active]; Vitamin D3 1,000 unit Oral chew daily [Active]; vitamin E Oral once daily [Active]; - PMHx: 14:37 acid reflux; ADD/ADHD; Atrial Fib; CVA; Diabetes - NIDDM; Hyperlipidemia; Hypertension; iw Kidney stones; TIA; UTI; - PSHx: 14:37 Hysterectomy; Tonsillectomy; Cholecystectomy; Heart stents; DVT; triple bypass; iw catatact sx; - Immunization history:: Adult Immunizations up to date. - Social history:: Smoking status: . - Ebola Screening: : No symptoms or risks identified at this time. ROS: 14:57 Eyes: Negative for injury, pain, redness, and discharge, ENT: Negative for injury, jr8 pain, and discharge, Neck: Negative for injury, pain, and swelling, Cardiovascular: Negative for chest pain, palpitations, and edema, Respiratory: Negative for shortness of breath, cough, wheezing, and pleuritic chest pain, Abdomen/GI: Negative for abdominal pain, nausea, vomiting, diarrhea, and constipation, Back: Negative for injury and pain, MS/Extremity: Negative for injury and deformity, Skin: Negative for injury, rash, and discoloration, Neuro: Negative for headache, weakness, numbness, tingling, and seizure. 14:57 Constitutional: Positive for fatigue, malaise, general weakness. Exam: 14:57 Eyes: Pupils equal round and reactive to light, extra-ocular motions intact. Lids and jr8 lashes normal. Conjunctiva and sclera are non-icteric and not injected. Cornea within normal limits. Periorbital areas with no swelling, redness, or edema. ENT: Nares patent. No nasal discharge, no septal abnormalities noted. Tympanic membranes are normal and external auditory canals are clear. Oropharynx with no redness, swelling, or masses, exudates, or evidence of obstruction, uvula midline. Mucous membranes moist. Neck: Trachea midline, no thyromegaly or masses palpated, and no cervical lymphadenopathy. Supple, full range of motion without nuchal rigidity, or vertebral point tenderness. No Meningismus. Cardiovascular: irregularly irregular rhythm with a normal S1 and S2. 2/5 systolic murmur best her at right sternal boarder. Normal PMI, no JVD. No pulse deficits. Respiratory: Lungs have equal breath sounds bilaterally, clear to auscultation and percussion. No rales, rhonchi or wheezes noted. No increased work of breathing, no retractions or nasal flaring. Abdomen/GI: Soft, non-tender, with normal bowel sounds. No distension or tympany. No guarding or rebound. No evidence of tenderness throughout. Back: No spinal tenderness. No costovertebral tenderness. Full range of motion. Skin: Warm, dry with normal turgor. Normal color with no rashes, no lesions, and no evidence of cellulitis. MS/ Extremity: Pulses equal, no cyanosis. Neurovascular intact. Full, normal range of motion. Neuro: Awake and alert, GCS 15, oriented to person, place, time, and situation. Cranial nerves II-XII grossly intact. Motor strength 5/5 in all extremities. Sensory grossly intact. Cerebellar exam normal. Normal gait. Vital Signs: 14:35 BP 185 / 54; Pulse 63; Resp 16; Temp 97.5; Pulse Ox 98% on R/A; Weight 63.5 kg; Height iw 5 ft. 2 in. (157.48 cm); Pain 0/10; 15:30 BP 150 / 51; Pulse 70; Resp 16; Pulse Ox 100% on R/A; tr5 16:30 BP 160 / 61; Pulse 65; Resp 16; Pulse Ox 100% on R/A; tr5 17:30 BP 165 / 60; Pulse 72; Resp 17; Pulse Ox 100% on R/A; tr5 14:35 Body Mass Index 25.61 (63.50 kg, 157.48 cm) iw MDM: 14:52 Patient medically screened. [facility] 17:11 Data reviewed: vital signs, nurses notes, lab test result(s), EKG, radiologic studies, [facility] CT scan, plain films. Data interpreted: Pulse oximetry: on room air is 98 %. Interpretation: normal. Counseling: I had a detailed discussion with the patient and/or guardian regarding: the historical points, exam findings, and any diagnostic results supporting the discharge/admit diagnosis, lab results, radiology results, the need for outpatient follow up, a family practitioner, to return to the emergency department if symptoms worsen or persist or if there are any questions or concerns that arise at home. ED course: Patient feeling better. BP improved. No acute findings on labs, ECG, or imaging. Will d/c to f/u with PCP. If worse or something were to change to immediately come back. Otherwise no signs or renal, cardiac, or pulmonary problems. No electrolyte disturbances. No signs of infection or focal neurologic deficits . 04/05 14:55 Order name: Basic Metabolic Panel; Complete Time: 16:20 04/05 14:55 Order name: CBC with Diff; Complete Time: 16:15 04/05 14:55 Order name: LFT's; Complete Time: 16:20 04/05 14:55 Order name: Magnesium; Complete Time: 16:20 04/05 14:55 Order name: NT PRO-BNP; Complete Time: 16:20 04/05 14:55 Order name: PT-INR; Complete Time: 16:15 04/05 14:55 Order name: Troponin (emerg Dept Use Only); Complete Time: 16:20 04/05 14:55 Order name: XRAY Chest (1 view); Complete Time: 17:44 04/05 14:55 Order name: EKG; Complete Time: 14:56 04/05 14:55 Order name: Cardiac monitoring; Complete Time: 16:15 04/05 14:55 Order name: EKG - Nurse/Tech; Complete Time: 16:16 04/05 14:55 Order name: IV Saline Lock; Complete Time: 15:38 04/05 14:55 Order name: Urine Microscopic Only; Complete Time: 17:04/05 17:04 Order name: Urine Dipstick--Ancillary (enter results); Complete Time: 17:10 04/05 14:55 Order name: Labs collected and sent; Complete Time: 16:16 04/05 14:55 Order name: O2 Per Protocol; Complete Time: 16:16 04/05 14:55 Order name: O2 Sat Monitoring; Complete Time: 16:16 04/05 14:55 Order name: Urine Dipstick-Ancillary (obtain specimen); Complete Time: 16:33 Administered Medications: No medications were administered Disposition: 18:43 Co-signature as Attending Physician, Jonathan Galicia MD. ma2 Disposition: 04/05/19 17:13 Discharged to Home. Impression: Essential (primary) hypertension, Muscle weakness (generalized). - Condition is Stable. - Discharge Instructions: Hypertension, Weakness. - Medication Reconciliation Form, Thank You Letter, Antibiotic Education, Prescription Opioid Use form. - Follow up: Elli Britt MD; When: Tomorrow; Reason: Recheck today's complaints, Continuance of care, Re-evaluation by your physician. - Problem is new. - Symptoms have improved. Signatures: Dispatcher [employer] EDPriti Salamanca RN RN Flavio Ren PA PA jr8 Jonathan Galicia MD MD ma2 Kyle Ham RN RN tr5 Corrections: (The following items were deleted from the chart) 18:12 17:13 04/05/2019 17:13 Discharged to Home. Impression: Essential (primary) tr5 hypertension; Muscle weakness (generalized). Condition is Stable. Forms are Medication Reconciliation Form, Thank You Letter, Antibiotic Education, Prescription Opioid Use. Follow up: Elli Britt; When: Tomorrow; Reason: Recheck today's complaints, Continuance of care, Re-evaluation by your physician. Problem is new. Symptoms have improved. jr8
--- NOTE | 2019-04-05 17:13 | ER ---
Nurse's Notes [facility] Name: Radha Lara Age: 83 yrs Sex: Female : 1935 Arrival Date: 04/05/2019 Time: 14:07 Bed 28 Private MD: Elli Britt Diagnosis: Essential (primary) hypertension;Muscle weakness (generalized) Presentation: 04/05 14:31 Presenting complaint: Patient states: was at Dr. Monteiro's office for eye exam, was iw sitting in chair and got cold and clammy, light headed, weak, denies LOC, throat was very dry and daughter states that she was doing something weird with her tongue when she walked in. right now pt states she feels weak all over, recent TIAs. Transition of care: patient was not received from another setting of care. No acute neurological deficit is noted. Pre-hospital glucose is not applicable to this patient. Onset of symptoms was April 05, 2019. Risk Assessment: Do you want to hurt yourself or someone else? Patient reports no desire to harm self or others. Initial Sepsis Screen: Does the patient meet any 2 criteria? No. Patient's initial sepsis screen is negative. Does the patient have a suspected source of infection? No. Patient's initial sepsis screen is negative. Care prior to arrival: None. 14:31 Method Of Arrival: Wheelchair iw 14:31 Acuity: YOLANDE 2 iw Historical: - Allergies: 14:37 Aspirin; iw 14:37 Clonidine; iw 14:37 Codeine; iw 14:37 Ibuprofen; iw 14:37 Iodinated Contrast Media - IV Dye; iw 14:37 Lisinopril; iw 14:37 Niacin; iw 14:37 Nitrofurantoin; iw 14:37 nitrous oxide; iw 14:37 vicoden; iw - Home Meds: 14:37 amlodipine 10 mg tab 1 tab once daily for Hypertension [Active]; carvedilol 25 mg Oral iw tab 1 tab 2 times per day [Active]; Crestor 40 mg Oral tab once daily [Active]; Eliquis 5 mg Oral tab 2 times per day [Active]; cranberry Oral twice a day [Active]; hydralazine 100 mg Oral tab 3 times per day [Active]; irbesartan 150 mg Oral tab 1 tab once daily [Active]; magnesium oxide 500 mg Oral cap [Active]; metformin 500 mg Oral Tb24 1 tab 2 times per day [Active]; Multiple Vitamins Oral tab daily [Active]; omeprazole 40 mg Oral cpDR 1 cap once daily [Active]; Plavix 75 mg Oral tab 1 tab once daily [Active]; Probiotic Oral [Active]; sertraline 50 mg Oral tab 1 tab once daily [Active]; Vitamin B-12 2,000 mcg Oral TbER daily [Active]; Vitamin D3 1,000 unit Oral chew daily [Active]; vitamin E Oral once daily [Active]; - PMHx: 14:37 acid reflux; ADD/ADHD; Atrial Fib; CVA; Diabetes - NIDDM; Hyperlipidemia; Hypertension; iw Kidney stones; TIA; UTI; - PSHx: 14:37 Hysterectomy; Tonsillectomy; Cholecystectomy; Heart stents; DVT; triple bypass; iw catatact sx; - Immunization history:: Adult Immunizations up to date. - Social history:: Smoking status: . - Ebola Screening: : No symptoms or risks identified at this time. Screenin:35 Abuse screen: Denies threats or abuse. Nutritional screening: No deficits noted. tr5 Tuberculosis screening: No symptoms or risk factors identified. Fall Risk None identified. Assessment: 14:35 General: Appears uncomfortable, Behavior is calm, cooperative, appropriate for age. tr5 Pain: Denies pain. Neuro: Level of Consciousness is awake, alert, obeys commands, Oriented to person, place, time, situation, Forest Fire Prevention Specialist are equal bilaterally. Cardiovascular: Heart tones present Capillary refill < 3 seconds Pulses are all present. Respiratory: Airway is patent Respiratory effort is even, unlabored, Respiratory pattern is regular, symmetrical. GI: No signs and/or symptoms were reported involving the gastrointestinal system. : No signs and/or symptoms were reported regarding the genitourinary system. EENT: No signs and/or symptoms were reported regarding the EENT system. Derm: Skin is intact, Skin is Skin is normal, Skin temperature is warm. Musculoskeletal: Capillary refill < 3 seconds, Range of motion: intact in all extremities. 15:30 Reassessment: Patient appears in no apparent distress at this time. Patient and/or tr5 family updated on plan of care and expected duration. Pain level reassessed. Patient is alert, oriented x 3, equal unlabored respirations, skin warm/dry/pink. 16:30 Reassessment: Patient and/or family updated on plan of care and expected duration. Pain tr5 level reassessed. Patient is alert, oriented x 3, equal unlabored respirations, skin warm/dry/pink. Patient states feeling better. 17:30 Reassessment: No changes from previously documented assessment. Patient and/or family tr5 updated on plan of care and expected duration. Pain level reassessed. Patient is alert, oriented x 3, equal unlabored respirations, skin warm/dry/pink. Vital Signs: 14:35 BP 185 / 54; Pulse 63; Resp 16; Temp 97.5; Pulse Ox 98% on R/A; Weight 63.5 kg; Height iw 5 ft. 2 in. (157.48 cm); Pain 0/10; 15:30 BP 150 / 51; Pulse 70; Resp 16; Pulse Ox 100% on R/A; tr5 16:30 BP 160 / 61; Pulse 65; Resp 16; Pulse Ox 100% on R/A; tr5 17:30 BP 165 / 60; Pulse 72; Resp 17; Pulse Ox 100% on R/A; tr5 14:35 Body Mass Index 25.61 (63.50 kg, 157.48 cm) iw ED Course: 14:07 Patient arrived in ED. rg4 14:07 Elli Britt MD is Private Physician. rg4 14:35 Triage completed. iw 14:35 Arm band placed on. iw 14:35 Bed in low position. Call light in reach. Side rails up X 1. Adult w/ patient. Door tr5 closed. Warm blanket given. 14:44 Flavio Watters PA is PHCP. jr8 14:44 Jonathan Galicia MD is Attending Physician. jr8 14:56 Kyle Ham, LAILA is Primary Nurse. tr5 15:05 XRAY Chest (1 view) In Process Unspecified. EDMS 15:10 Inserted saline lock: 24 gauge in right antecubital area, using aseptic technique. tr5 15:15 Initial lab(s) drawn, by me, sent to lab. tr5 15:44 EKG done, by technology services manager. reviewed by Flavio DE LA O. sm3 17:13 Elli Britt MD is Referral Physician. jr8 18:09 No provider procedures requiring assistance completed. Patient did not have IV access tr5 during this emergency room visit. Administered Medications: No medications were administered Outcome: 17:13 Discharge ordered by . lowell 18:09 Discharged to home tr5 18:09 Discharged to home ambulatory, with family. 18:09 Condition: stable 18:09 Discharge instructions given to patient, family, Instructed on discharge instructions, follow up and referral plans. Demonstrated understanding of instructions, follow-up care. 18:12 Patient left the ED. tr5 Signatures: Dispatcher [employer] EDPriti Salamanca, RN RN Flavio Watters PA PA jr8 Mirella Kong 4 Maddie De Oliveira 3 Kyle Ham RN RN tr5 Corrections: (The following items were deleted from the chart) 14:38 14:31 Acuity: YOLANDE 3 [facility]
--- NOTE | 2019-04-05 17:23 | RAD REPORT ---
EXAM DESCRIPTION: Diane Single View04/05/2019 3:05 pm CLINICAL HISTORY: sob COMPARISON: January 2019 FINDINGS: The lungs appear clear of acute infiltrate. The heart is mildly to moderately enlarged. Postsurgical changes involve the chest. IMPRESSION: No acute abnormalities displayed
[2019-04-05 18:45] VITALS: TEMP 97.5
[2019-04-05 18:46] VITALS: O2SAT 100
[2019-04-05 18:49] VITALS: BP 165/60
--- NOTE | 2019-04-06 07:40 | EKG ---
Test Date: 2019-04-05 Test Time: 15:18:20 [place]: RIYA/S MEASUREMENT RESULTS: Intervals: Rate: 72 WI: QRSD: 94 QT: 408 QTc: 446 [place]: P: WI: QRS: 8 T: 95 INTERPRETIVE STATEMENTS: Atrial fibrillation Abnormal QRS-T angle, consider primary T wave abnormality Abnormal ECG Compared to ECG 02/18/2019 19:25:02 T-wave abnormality now present Myocardial infarct finding no longer present ST (T wave) deviation no longer present Possible ischemia no longer present Electronically Signed On 04-06-19 07:38:07 CDT by Jass Lance
== END 2019-04-05 18:12 | disposition home or self-care (01) ==
LOC: ER 14:03
DX: M62.81 Muscle weakness (generalized) (principal); I10 Essential (primary) hypertension; E78.5 Hyperlipidemia, unspecified; E11.9 Type 2 diabetes mellitus without complications; Z88.6 Allergy status to analgesic agent
CPT/HCPCS: 36415; 71045; 80048; 80076; 81003; 81015; 83735; 83880; 84484; 85025; 85610; 93005; 99284

== ENCOUNTER 2019-04-29 14:01 | Emergency (ER) | payer OTHER ==
[2019-04-29] MEDS ORDERED: FAMOTIDINE 20 MG/2 ML VIAL IV ONE (15:22)
[2019-04-29] MEDS ORDERED: ONDANSETRON 4 MG/2 ML VIAL ONE (15:22)
[2019-04-29] MEDS ORDERED: NA CHLORIDE 0.9% 500 ML ONE (15:22)
[2019-04-29 16:07] LABS: Absolute Lymphocytes (CBC) 2.2 K/uL (0.7-4.9); Basophils % 0.6 % (0-1.3); Lymphocytes % 26.6 % (15.3-44.8); MPV 7.9 fL (7.6-11.3)
[2019-04-29 16:22] LABS: Protime INR 1.53
[2019-04-29 16:28] LABS: ALT/SGPT 30 U/L (12-78); AST/SGOT 21 U/L (15-37); Albumin 3.8 g/dL (3.4-5.0); Alkaline Phosphatase 103 U/L (45-117); BUN Blood Urea Nitrogen 18 mg/dL (7-18); Bicarbonate 26 mmol/L (21-32); Bilirubin Direct 0.2 mg/dL (0-0.2); Bilirubin Total 0.5 mg/dL (0.2-1.0); Glucose Level 129 mg/dL (74-106); Lipase 148 U/L (73-393); Magnesium 2.1 mg/dL (1.8-2.4); NT PRO-BNP 1735 pg/mL (<450); Potassium 4.7 mmol/L (3.5-5.1); Protein, Total 7.6 g/dL (6.4-8.2); Sodium Level 131 mmol/L (136-145); Troponin (Emerg Dept Use Only) < 0.02 ng/mL (0.0-0.045)
--- NOTE | 2019-04-29 16:29 | RAD REPORT ---
EXAM DESCRIPTION: RAD - Chest Single View - 04/29/2019 3:37 pm CLINICAL HISTORY: Nausea, vomiting, abdominal pain COMPARISON: April 05 TECHNIQUE: AP portable chest image was obtained 1533 hours . FINDINGS: No focal mass or consolidation. Lung markings are similar to minimally increased over the comparison. Heart and vasculature are normal. No measurable pleural effusion and no pneumothorax. No acute bony abnormality seen. No acute aortic findings suspected. IMPRESSION: No focal mass or consolidation. Lung markings are similar to minimally increased. A minimal edema or infiltrate not excluded.
[2019-04-29 17:11] LABS: Urine Amorphous Sediment 1+ /HPF (NONE SEEN); Urine Bacteria <20 /HPF (<20); Urine Culture Reflex Order NOT NEEDED; Urine RBC NONE SEEN /HPF (NONE SEEN)
[2019-04-29 17:12] LABS: Urine Blood NEGATIVE (NEG); Urine Glucose NEGATIVE (NEG); Urine Protein NEGATIVE (NEG); Urine Specific Gravity 1.015 (1.005-1.030)
--- NOTE | 2019-04-29 19:13 | RAD REPORT ---
EXAM DESCRIPTION: - CT-ABD PELVIS W/O CONTRAST - 04/29/2019 7:00 pm CLINICAL HISTORY: ABD PAIN COMPARISON: None. TECHNIQUE: Axial 5 millimeter thick images of the abdomen and pelvis were obtained following oral co ntrast. The CT scan was performed using dose optimization techniques as appropriate to a performed exam incl uding one or more of the following: Automated exposure control, adjustment of the mA and/or kV accord ing to patient size (this includes techniques or standardized protocols for targeted exams where dose is matched to indication/reason for exam) and use of iterative reconstruction technique. FINDINGS: No acute lung base finding. No pericardial thickening or effusion. Right and left atria ar e prominent. Coronary artery and valve calcifications are present. Patient has dense calcification of the arterial tree. Vascular assessment is limited in the absence o f contrast. No displaced calcifications in the aorta. Maximum aortic diameter is 3.1 cm just below th e renal vasculature. The liver, spleen, pancreas and adrenal glands show no suspicious findings. Cholecystectomy clips are present. No biliary tree dilatation. No hydronephrosis or obstructing calculi. No nonobstructing calculi seen. An exophytic 2.[address] mass from the upper pole right kidney shows partial rim calcification. Urinary bladder shows no c alculus. Bladder is only partially filled. Bladder wall thickening is not suspected. Uterus is absent. Ovaries are absent or atrophic. No acute gastric finding. No acute small bowel finding. Appendicitis is not suspected. Oral CT contra st has reached the rectum. There is circumferential wall thickening involving the rectum and sigmoid colon. Very little adjacent stranding changes are present. No free air or pneumatosis. No free fluid. No omental thickening, mass or bulky lymphadenopathy. Disc and bone degenerative changes are present. IMPRESSION: Circumferential wall thickening of the rectum and sigmoid colon most likely representing colitis or d iverticulitis. The patient has very minimal diverticulosis as a baseline. No bowel obstruction, free air or other surgically emergent finding. Nonacute findings are detailed in the body of the report.
--- NOTE | 2019-04-29 19:55 | RAD REPORT ---
EXAM DESCRIPTION: - CT-STROKE BRAIN W/O CONTRAST - 04/29/2019 7:44 pm CLINICAL HISTORY: Acute onset stroke-like symptoms COMPARISON: None. TECHNIQUE: Axial 5 mm thick images of the head were obtained without IV contrast. All CT scans are performed using dose optimization technique as appropriate and may include automated exposure control or mA/KV adjustment according to patient size. FINDINGS: No intracranial hemorrhage, mass, edema or shift of mid-line structures. No acute cortical based infarction evident. No cortical edema or sulcal effacement. Patchy chronic ischemic change in the cerebral white matter similar to comparison. Ventricles are normal. Mastoid air cells and visualized portions of the paranasal sinuses are clear. No acute bony findings. Findings telephoned to the referring clinician 1730 hours IMPRESSION: No intracranial hemorrhage present. No acute infarction changes evident.
--- NOTE | 2019-04-29 20:17 | EDPHYS ---
Physician Documentation [facility] Name: Radha Lara Age: 83 yrs Sex: Female : 1935 Arrival Date: 04/29/2019 Time: 14:04 Bed 20 Private MD: Elli Britt ED Physician Chris Hammond HPI: 04/29 15:20 This 83 yrs old Female presents to ER via Wheelchair with complaints of cp Nausea/Vomiting, Weakness. 15:20 The patient presents to the emergency department with nausea, that is moderate, cp vomiting, that is intermittent, abdominal pain, of the lower abdomen. 15:20 Onset: The symptoms/episode began/occurred gradually, and became worse this morning. cp 15:20 Associated signs and symptoms: Pertinent positives: nausea, vomiting, general weakness, cp Pertinent negatives: constipation, diarrhea, fever, GI bleeding. Severity of symptoms: in the emergency department the symptoms are unchanged despite home interventions. Daughter reports patient currently taking Bactrim for uti. Historical: - Allergies: 14:30 Aspirin; aj1 14:30 Clonidine; aj1 14:30 Codeine; aj1 14:30 Ibuprofen; aj1 14:30 Iodinated Contrast Media - IV Dye; aj1 14:30 Lisinopril; aj1 14:30 Niacin; aj1 14:30 Nitrofurantoin; aj1 14:30 nitrous oxide; aj1 14:30 vicoden; aj1 - Home Meds: 14:30 amlodipine 10 mg tab 1 tab once daily for Hypertension [Active]; carvedilol 25 mg Oral aj1 tab 1 tab 2 times per day [Active]; cranberry Oral twice a day [Active]; Crestor 40 mg Oral tab once daily [Active]; Eliquis 5 mg Oral tab 2 times per day [Active]; irbesartan 150 mg Oral tab 1 tab once daily [Active]; hydralazine 100 mg Oral tab 3 times per day [Active]; magnesium oxide 500 mg Oral cap [Active]; metformin 500 mg Oral Tb24 1 tab 2 times per day [Active]; Multiple Vitamins Oral tab daily [Active]; omeprazole 40 mg Oral cpDR 1 cap once daily [Active]; Plavix 75 mg Oral tab 1 tab once daily [Active]; Probiotic Oral [Active]; sertraline 50 mg Oral tab 1 tab once daily [Active]; Vitamin B-12 2,000 mcg Oral TbER daily [Active]; Vitamin D3 1,000 unit Oral chew daily [Active]; vitamin E Oral once daily [Active]; - PMHx: 14:30 acid reflux; ADD/ADHD; Atrial Fib; CVA; Diabetes - NIDDM; Hyperlipidemia; Hypertension; aj1 Kidney stones; TIA; UTI; PE; Sleep Apnea; - PSHx: 14:30 Tonsillectomy; Cholecystectomy; Hysterectomy; triple bypass; aj1 - Immunization history:: Flu vaccine is not up to date. - Social history:: Smoking status: Patient/guardian denies using tobacco. - Ebola Screening: : Patient denies travel to an Ebola-affected area in the 21 days before illness onset. ROS: 15:27 Constitutional: Positive for poor PO intake, Negative for body aches, chills, fever. cp 15:27 Eyes: Negative for injury, pain, redness, and discharge. cp 15:27 Cardiovascular: Negative for chest pain, edema, palpitations. 15:27 Respiratory: Negative for cough, shortness of breath, wheezing. 15:27 Abdomen/GI: Positive for abdominal pain, nausea and vomiting, anorexia, Negative for diarrhea, constipation, black/tarry stool, rectal bleeding. 15:27 Back: Negative for pain at rest, pain with movement. 15:27 Skin: Negative for cellulitis, rash. 15:27 Neuro: Positive for general weakness, Negative for altered mental status, headache, syncope. 15:27 All other systems are negative. Exam: 15:25 ECG was reviewed by the Attending Physician. cp 15:30 Constitutional: The patient appears in no acute distress, alert, awake, cp non-diaphoretic, non-toxic, well developed, well nourished, uncomfortable. 15:30 Head/Face: Normocephalic, atraumatic. Eyes: Pupils equal round and reactive to light, cp extra-ocular motions intact. Lids and lashes normal. Conjunctiva and sclera are non-icteric and not injected. Cornea within normal limits. Periorbital areas with no swelling, redness, or edema. ENT: Nares patent. No nasal discharge, no septal abnormalities noted. Tympanic membranes are normal and external auditory canals are clear. Oropharynx with no redness, swelling, or masses, exudates, or evidence of obstruction, uvula midline. Mucous membranes moist. Chest/axilla: Normal chest wall appearance and motion. Nontender with no deformity. No lesions are appreciated. 15:30 Cardiovascular: Rate: normal, Rhythm: irregular, Edema: is not appreciated, JVD: is not appreciated. 15:30 Respiratory: the patient does not display signs of respiratory distress, Respirations: normal, no use of accessory muscles, no retractions, no splinting, no tachypnea, labored breathing, is not present, Breath sounds: are clear throughout, no decreased breath sounds, no stridor, no wheezing. 15:30 Abdomen/GI: Inspection: abdomen appears normal, Bowel sounds: active, all quadrants, Palpation: soft, in all quadrants, mild abdominal tenderness, in the right lower quadrant and left lower quadrant, rebound tenderness, is not appreciated, involuntary guarding, is not appreciated. 15:30 Back: CVA tenderness, is absent. 15:30 Skin: no rash present. 15:30 Neuro: Orientation: to person, place \T\ time. Mentation: is normal, Cerebellar function: is grossly normal, Motor: moves all fours, strength is normal, Sensation: no obvious gross deficits. Vital Signs: 14:30 BP 155 / 47; Pulse 67; Resp 20; Temp 97.8; Pulse Ox 96% on R/A; Weight 62.6 kg (R); aj1 Pain 2/10; 16:36 BP 155 / 48; Pulse 73; Resp 18; Pulse Ox 96% on R/A; Pain 2/10; em 18:18 BP 156 / 58; Pulse 78; Resp 18; Pulse Ox 99% on R/A; em 19:30 BP 140 / 63; Pulse 75; Resp 13; Pulse Ox 95% on R/A; lp1 20:30 BP 155 / 58; Pulse 73; Resp 20; Pulse Ox 96% on R/A; lp1 21:41 BP 149 / 76; Pulse 74; Resp 18; Temp 98.2(O); Pulse Ox 96% on R/A; lp1 22:30 BP 151 / 56; Pulse 69; Resp 19; Pulse Ox 95% on R/A; lp1 NIH Stroke Scale Scores: 19:40 NIHSS Score: 2 lp1 19:44 NIHSS Score: 1 cp MDM: 15:15 Patient medically screened. cp 19:57 ED course: received phone report from radiologist that head CT negative for acute cp findings. 20:20 Physician consultation: DR Morris, neurologist \T\[facility], will consult cp on patient and requests transfer to hospitalist services. 21:00 Data reviewed: vital signs, nurses notes, lab test result(s), EKG, radiologic studies, cp CT scan, plain films. 21:00 Test interpretation: by ED physician or midlevel provider: ECG, plain radiologic cp studies. 21:15 Physician consultation: DR Edwards, hospitalist \T\[facility], will accept patient as cp transfer. 04/29 15:14 Order name: Basic Metabolic Panel cp 04/29 15:14 Order name: CBC with Diff; Complete Time: 17:53 cp 04/29 17:53 Interpretation: Normal except: RBC 3.70; HCT 35.0. cp 04/29 15:14 Order name: LFT's; Complete Time: 17:53 cp 04/29 15:14 Order name: Magnesium; Complete Time: 17:53 cp 04/29 15:14 Order name: NT PRO-BNP; Complete Time: 17:53 cp 04/29 18:28 Interpretation: Abnormal: NT PRO-BNP 1735. cp 04/29 15:14 Order name: PT-INR; Complete Time: 17:53 cp 04/29 15:14 Order name: Troponin (emerg Dept Use Only); Complete Time: 17:53 cp 04/29 17:54 Interpretation: Reviewed. cp 04/29 15:14 Order name: XRAY Chest (1 view); Complete Time: 17:53 cp 04/29 15:14 Order name: Lipase; Complete Time: 17:53 cp 04/29 15:14 Order name: Urine Microscopic Only; Complete Time: 17:53 cp 04/29 18:28 Interpretation: Reviewed. cp 04/29 15:15 Order name: Basic Metabolic Panel; Complete Time: 17:53 EDMS 04/29 17:54 Interpretation: NA 131; GLUC 129; GFR 71. cp 04/29 16:36 Order name: Urine Dipstick--Ancillary (enter results); Complete Time: 17:53 gm 04/29 22:01 Order name: NOVA; Complete Time: 20:27 lp1 04/29 15:14 Order name: EKG; Complete Time: 15:16 cp 04/29 15:14 Order name: Cardiac monitoring; Complete Time: 16:28 cp 04/29 15:14 Order name: EKG - Nurse/Tech; Complete Time: 16:28 cp 04/29 18:56 Order name: CT-ABD ; Complete Time: 19:49 EDMS 04/29 19:26 Order name: CT-STROKE BRAIN W/O CONTRAST; Complete Time: 20:50 EDMS 04/29 15:14 Order name: IV Saline Lock; Complete Time: 16:28 cp 04/29 15:14 Order name: Labs collected and sent; Complete Time: 16:28 cp 04/29 15:14 Order name: O2 Per Protocol; Complete Time: 16:28 cp 04/29 15:14 Order name: O2 Sat Monitoring; Complete Time: 16:28 cp 04/29 15:14 Order name: Cath: patient currently on bactrim for uti; Complete Time: 16:28 cp 04/29 15:14 Order name: Urine Dipstick-Ancillary (obtain specimen); Complete Time: 16:28 cp 04/29 19:53 Order name: Swallow Screen; Complete Time: 20:02 cp EC:25 Rate is 68 beats/min. Rhythm is irregular. QRS interval is prolonged at 102 msec. QT cp interval is normal. Interpreted by me. Reviewed by me. Administered Medications: 15:50 Drug: NS 0.9% 250 ml Route: IV; Rate: bolus; Site: right antecubital; em 16:33 Follow up: IV Status: Completed infusion; IV Intake: 250ml em 15:50 Drug: Zofran 4 mg Route: IVP; Site: right antecubital; hb 16:34 Follow up: Response: No adverse reaction; Nausea is decreased em 15:51 Drug: Pepcid 20 mg Route: IVP; Site: right antecubital; hb 16:34 Follow up: Response: No adverse reaction em 16:33 Drug: NS 0.9% 1000 ml Route: IV; Rate: 75 ml/hr; Site: right antecubital; em 19:54 CANCELLED (Physician Discretion): PlaVIX 75 mg PO once cp 21:00 Drug: foLIC Acid 1 mg Route: IVPB; Site: left antecubital; lp1 21:39 Follow up: IV Status: Completed infusion; IV Intake: 50ml lp1 21:00 Drug: metroNIDAZOLE 500 mg Volume: 100 ml; Route: IVPB; Infused Over: 30 mins; Site: lp1 left antecubital; 21:44 Follow up: IV Status: Completed infusion; IV Intake: 100ml lp1 21:00 Drug: PlaVIX 75 mg Route: PO; lp1 22:41 Follow up: Response: No adverse reaction lp1 21:00 Drug: Tylenol 1000 mg Route: PO; lp1 22:40 Follow up: Response: Pain is decreased lp1 21:39 Drug: Ciprofloxacin 400 mg Volume: 200 ml; Route: IVPB; Infused Over: 60 mins; Site: lp1 left antecubital; 22:41 Follow up: IV Status: Completed infusion; IV Intake: 200ml lp1 Disposition: 04/29/19 20:17 Transfer ordered to [facility]. Diagnosis are Aphasia, Colitis. - Reason for transfer: Higher level of care. - Accepting physician is DR Edwards. - Condition is Stable. - Problem is new. - Symptoms have improved. NIH Stroke Scale - NIH Stroke Score Date: 04/29/2019 Time: 19:40 Total Score = 2 1a. Level of Consciousness (LOC) - 0(Alert) 1b. Level of Consciousness (LOC) (Year \T\ Age) - 1(One) 1c. LOC Commands (Open \T\ Closes Eyes/Laboratory Development Technician) - 0(Both) 2. Best Gaze (Lateral Gaze Paresis) - 0(Normal) 3. Visual Field Loss - 0(No visual loss) 4. Facial Palsy - 0(Normal) 5a. Left Arm: Motor (10-second hold) - 0(No drift) 5b. Right Arm: Motor (10-second hold) - 0(No drift) 6a. Left Leg: Motor (5-second hold - always test supine) - 0(No drift) 6b. Right Leg: Motor (5-second hold - always test supine) - 0(No drift) 7. Limb Ataxia (finger/nose \T\ heel/felix - test with eyes open) - 0(Absent) 8. Sensory Loss (pinprick arms/legs/face) - 0(Normal) 9. Best Language: Aphasia (description/naming/reading) - 1(Mild to moderate aphasia) 10. Dysarthria (speech clarity - read or repeat words) - 0(Normal) 11. Extinction and Inattention (visual/tactile/auditory/spatial/personal) - 0(No abnormality) Initials: lp1 NIH Stroke Scale - NIH Stroke Score Date: 04/29/2019 Time: 19:44 Total Score = 1 1a. Level of Consciousness (LOC) - 0(Alert) 1b. Level of Consciousness (LOC) (Year \T\ Age) - 1(One) 1c. LOC Commands (Open \T\ Closes Eyes/Laboratory Development Technician) - 0(Both) 2. Best Gaze (Lateral Gaze Paresis) - 0(Normal) 3. Visual Field Loss - 0(No visual loss) 4. Facial Palsy - 0(Normal) 5a. Left Arm: Motor (10-second hold) - 0(No drift) 5b. Right Arm: Motor (10-second hold) - 0(No drift) 6a. Left Leg: Motor (5-second hold - always test supine) - 0(No drift) 6b. Right Leg: Motor (5-second hold - always test supine) - 0(No drift) 7. Limb Ataxia (finger/nose \T\ heel/felix - test with eyes open) - 0(Absent) 8. Sensory Loss (pinprick arms/legs/face) - 0(Normal) 9. Best Language: Aphasia (description/naming/reading) - 0(No aphasia) 10. Dysarthria (speech clarity - read or repeat words) - 0(Normal) 11. Extinction and Inattention (visual/tactile/auditory/spatial/personal) - 0(No abnormality) Initials: cp Addendum: 05/03/2019 20:26 Co-signature as Attending Physician, Chris Hammond MD. rn Signatures: Dispatcher [employer] EDMS Rebecca Lal RN RN aj1 Sae Lim, PROPULSION MACHINERY SERVICE ENGINEER PROPULSION MACHINERY SERVICE ENGINEER Chris Flores MD MD rn Pena, Laura RN RN lp1 Hari Lara PA PA cp Baxter, Heather, RN RN Corrections: (The following items were deleted from the chart) 04/29 18:56 16:18 Abdomen Pelvis W Con+CT.RAD.BRZ ordered. EDMS EDMS 19:26 19:15 Head Brain Wo Cont+CT.RAD.BRZ ordered. EDMS EDMS 19:51 19:44 NIHSS Score: 0 cp cp 19:54 19:53 PlaVIX 75 mg PO once ordered. cp cp 20:54 20:17 04/29/2019 20:17 Transfer ordered to [facility]. cp Diagnosis is Aphasia; Colitis. Reason for transfer: Higher level of care. Accepting physician is doctor. Condition is Stable. Problem is new. Symptoms have improved. cp 23:18 20:54 04/29/2019 20:17 Transfer ordered to [facility]. lp1 Diagnosis is Aphasia; Colitis. Reason for transfer: Higher level of care. Accepting physician is DR Edwards. Condition is Stable. Problem is new. Symptoms have improved. cp
--- NOTE | 2019-04-29 20:17 | ER ---
Nurse's Notes [facility] Name: Radha Lara Age: 83 yrs Sex: Female : 1935 Arrival Date: 04/29/2019 Time: 14:04 Bed 20 Private MD: Elli Britt Diagnosis: Aphasia;Colitis Presentation: 04/29 14:26 Presenting complaint: Patient states: Lower abdominal pain, nausea that started today. aj1 Denies vomiting. Reports that last week she had a UTI, and she has been taking Bactrim for that. Denies fever, but reports chills. Denies diarrhea. Transition of care: patient was not received from another setting of care. Onset of symptoms was April 29, 2019. Risk Assessment: Do you want to hurt yourself or someone else? Patient reports no desire to harm self or others. Initial Sepsis Screen: Does the patient meet any 2 criteria? No. Patient's initial sepsis screen is negative. Does the patient have a suspected source of infection? Yes: Acute abdominal pain. Care prior to arrival: None. 14:26 Method Of Arrival: Wheelchair aj1 14:26 Acuity: YOLANDE 3 aj1 Triage Assessment: 14:30 General: Appears in no apparent distress. uncomfortable, Behavior is calm, cooperative, aj1 appropriate for age. Pain: Complains of pain in right lower quadrant and left lower quadrant Pain currently is 2 out of 10 on a pain scale. Neuro: Level of Consciousness is awake, alert, obeys commands. Cardiovascular: Patient's skin is warm and dry. Respiratory: Airway is patent Respiratory effort is even, unlabored, Respiratory pattern is regular, symmetrical. GI: Reports lower abdominal pain, nausea, vomiting. Historical: - Allergies: 14:30 Aspirin; aj1 14:30 Clonidine; aj1 14:30 Codeine; aj1 14:30 Ibuprofen; aj1 14:30 Iodinated Contrast Media - IV Dye; aj1 14:30 Lisinopril; aj1 14:30 Niacin; aj1 14:30 Nitrofurantoin; aj1 14:30 nitrous oxide; aj1 14:30 vicoden; aj1 - Home Meds: 14:30 amlodipine 10 mg tab 1 tab once daily for Hypertension [Active]; carvedilol 25 mg Oral aj1 tab 1 tab 2 times per day [Active]; cranberry Oral twice a day [Active]; Crestor 40 mg Oral tab once daily [Active]; Eliquis 5 mg Oral tab 2 times per day [Active]; irbesartan 150 mg Oral tab 1 tab once daily [Active]; hydralazine 100 mg Oral tab 3 times per day [Active]; magnesium oxide 500 mg Oral cap [Active]; metformin 500 mg Oral Tb24 1 tab 2 times per day [Active]; Multiple Vitamins Oral tab daily [Active]; omeprazole 40 mg Oral cpDR 1 cap once daily [Active]; Plavix 75 mg Oral tab 1 tab once daily [Active]; Probiotic Oral [Active]; sertraline 50 mg Oral tab 1 tab once daily [Active]; Vitamin B-12 2,000 mcg Oral TbER daily [Active]; Vitamin D3 1,000 unit Oral chew daily [Active]; vitamin E Oral once daily [Active]; - PMHx: 14:30 acid reflux; ADD/ADHD; Atrial Fib; CVA; Diabetes - NIDDM; Hyperlipidemia; Hypertension; aj1 Kidney stones; TIA; UTI; PE; Sleep Apnea; - PSHx: 14:30 Tonsillectomy; Cholecystectomy; Hysterectomy; triple bypass; aj1 - Immunization history:: Flu vaccine is not up to date. - Social history:: Smoking status: Patient/guardian denies using tobacco. - Ebola Screening: : Patient denies travel to an Ebola-affected area in the 21 days before illness onset. Screenin:40 Abuse screen: Denies threats or abuse. Nutritional screening: No deficits noted. em Tuberculosis screening: No symptoms or risk factors identified. Fall Risk None identified. 19:42 Patient has been NPO before screening. The patient is alert, able to follow commands. lp1 The patient does not exhibit slurred or garbled speech The patient is not exhibiting difficulty speaking. The patient does not exhibit difficulty understanding words. The patient is able to swallow own secretions with no drooling or need for suction. Patient tolerated one teaspoon of water. No drooling, immediate coughing, gurgling, or clearing of the throat was noted. The patient tolerated 90mL of water. No drooling, immediate coughing, gurgling, or clearing of the throat was noted. The patient passed the bedside swallow screening. Oral medications may be given as ordered. Contact Physician for further diet orders. Assessment: 15:30 General: Appears in no apparent distress. comfortable, Behavior is calm, cooperative, em Denies fever. Pain: Complains of pain in abdomen Pain currently is 2 out of 10 on a pain scale. Neuro: Level of Consciousness is awake, alert, obeys commands, Oriented to person, place, time, situation, Reports weakness Denies dizziness, headache. Cardiovascular: Capillary refill < 3 seconds Patient's skin is warm and dry. Rhythm is atrial fibrillation. Respiratory: Airway is patent Respiratory effort is even, unlabored, Respiratory pattern is regular, symmetrical. GI: Abdomen is flat, Abd is soft and non tender X 4 quads. Reports nausea, vomiting. : Reports burning with urination. Derm: Skin is intact, is healthy with good turgor, Skin is pink, warm \T\ dry. Musculoskeletal: Capillary refill < 3 seconds, Range of motion: intact in all extremities. 15:40 Reassessment: I agree with previous assessment. hb 16:57 Reassessment: Patient appears in no apparent distress at this time. Patient and/or em family updated on plan of care and expected duration. Pain level reassessed. Patient is alert, oriented x 3, equal unlabored respirations, skin warm/dry/pink. Patient states feeling better. Patient states symptoms have improved. 18:09 Reassessment: Patient appears in no apparent distress at this time. No changes from em previously documented assessment. Patient and/or family updated on plan of care and expected duration. Pain level reassessed. Patient is alert, oriented x 3, equal unlabored respirations, skin warm/dry/pink. Patient states feeling better. 19:10 Reassessment: Patient in CT at this time. lp1 19:35 Reassessment: Patient returned to room from CT; JAYLYN Billings at bedside to assess lp1 patient. 20:30 Reassessment: Patient complaint of neck pain; provider notified. lp1 20:30 Reassessment: Patient appears in no apparent distress at this time. Patient is alert, lp1 oriented x 3, equal unlabored respirations, skin warm/dry/pink. 21:30 Reassessment: Patient ambulated to bathroom at this time; States no further episodes of lp1 diarrhea. 21:56 Reassessment: report given to LAILA Cortés at [facility] for patient transfer to 14 lp1 [address] [facility] bed 1461. Vital Signs: 14:30 BP 155 / 47; Pulse 67; Resp 20; Temp 97.8; Pulse Ox 96% on R/A; Weight 62.6 kg (R); aj1 Pain 2/10; 16:36 BP 155 / 48; Pulse 73; Resp 18; Pulse Ox 96% on R/A; Pain 2/10; em 18:18 BP 156 / 58; Pulse 78; Resp 18; Pulse Ox 99% on R/A; em 19:30 BP 140 / 63; Pulse 75; Resp 13; Pulse Ox 95% on R/A; lp1 20:30 BP 155 / 58; Pulse 73; Resp 20; Pulse Ox 96% on R/A; lp1 21:41 BP 149 / 76; Pulse 74; Resp 18; Temp 98.2(O); Pulse Ox 96% on R/A; lp1 22:30 BP 151 / 56; Pulse 69; Resp 19; Pulse Ox 95% on R/A; lp1 NIH Stroke Scale Scores: 19:40 NIHSS Score: 2 lp1 19:44 NIHSS Score: 1 cp ED Course: 14:04 Patient arrived in ED. as 14:04 Elli Britt MD is Private Physician. as 14:27 Triage completed. aj1 14:30 Arm band placed on Patient placed in waiting room, Patient notified of wait time. aj1 15:00 Sae Lim LVN is Primary Nurse. em 15:00 EKG done, by ED staff. jd2 15:05 Hari Lara PA is PHCP. cp 15:05 Chris Hammond MD is Attending Physician. cp 15:30 Patient has correct armband on for positive identification. Placed in gown. Bed in low em position. Call light in reach. Side rails up X2. Adult w/ patient. boom master on. Pulse ox on. NIBP on. 15:38 XRAY Chest (1 view) In Process Unspecified. EDMS 15:50 Initial lab(s) drawn, by me, sent to lab. Inserted saline lock: 20 gauge in right em antecubital area, using aseptic technique. Blood collected. 16:24 Urine collected: straight cath specimen, clear, Amount Returned: 250mL Wet prep swab jd2 sent to lab. 16:58 IV discontinued, intact, bleeding controlled, No redness/swelling at site. Pressure em dressing applied. 16:58 Inserted saline lock: 20 gauge in left antecubital area, using aseptic technique. em 19:00 CT completed. Patient tolerated procedure well. Patient moved back from CT. mw3 19:01 CT-ABD In Process Unspecified. EDMS 19:45 CT-STROKE BRAIN W/O CONTRAST In Process Unspecified. EDMS 21:43 No provider procedures requiring assistance completed. lp1 Administered Medications: 15:50 Drug: NS 0.9% 250 ml Route: IV; Rate: bolus; Site: right antecubital; em 16:33 Follow up: IV Status: Completed infusion; IV Intake: 250ml em 15:50 Drug: Zofran 4 mg Route: IVP; Site: right antecubital; hb 16:34 Follow up: Response: No adverse reaction; Nausea is decreased em 15:51 Drug: Pepcid 20 mg Route: IVP; Site: right antecubital; hb 16:34 Follow up: Response: No adverse reaction em 16:33 Drug: NS 0.9% 1000 ml Route: IV; Rate: 75 ml/hr; Site: right antecubital; em 19:54 CANCELLED (Physician Discretion): PlaVIX 75 mg PO once cp 21:00 Drug: foLIC Acid 1 mg Route: IVPB; Site: left antecubital; lp1 21:39 Follow up: IV Status: Completed infusion; IV Intake: 50ml lp1 21:00 Drug: metroNIDAZOLE 500 mg Volume: 100 ml; Route: IVPB; Infused Over: 30 mins; Site: lp1 left antecubital; 21:44 Follow up: IV Status: Completed infusion; IV Intake: 100ml lp1 21:00 Drug: PlaVIX 75 mg Route: PO; lp1 22:41 Follow up: Response: No adverse reaction lp1 21:00 Drug: Tylenol 1000 mg Route: PO; lp1 22:40 Follow up: Response: Pain is decreased lp1 21:39 Drug: Ciprofloxacin 400 mg Volume: 200 ml; Route: IVPB; Infused Over: 60 mins; Site: lp1 left antecubital; 22:41 Follow up: IV Status: Completed infusion; IV Intake: 200ml lp1 Intake: 16:33 IV: 250ml; Total: 250ml. em 21:39 IV: 50ml; Total: 300ml. lp1 21:44 IV: 100ml; Total: 400ml. lp1 22:41 IV: 200ml; Total: 600ml. lp1 Outcome: 20:17 ER care complete, transfer ordered by cp 21:54 Condition: stable lp1 21:54 Instructed on the need for transfer. 23:00 Transferred by ground EMS to [facility], Transfer form completed. lp1 X-rays sent w/ patient. 23:18 Patient left the ED. lp1 NIH Stroke Scale - NIH Stroke Score Date: 04/29/2019 Time: 19:40 Total Score = 2 1a. Level of Consciousness (LOC) - 0(Alert) 1b. Level of Consciousness (LOC) (Year \T\ Age) - 1(One) 1c. LOC Commands (Open \T\ Closes Eyes/Residential Energy Auditor) - 0(Both) 2. Best Gaze (Lateral Gaze Paresis) - 0(Normal) 3. Visual Field Loss - 0(No visual loss) 4. Facial Palsy - 0(Normal) 5a. Left Arm: Motor (10-second hold) - 0(No drift) 5b. Right Arm: Motor (10-second hold) - 0(No drift) 6a. Left Leg: Motor (5-second hold - always test supine) - 0(No drift) 6b. Right Leg: Motor (5-second hold - always test supine) - 0(No drift) 7. Limb Ataxia (finger/nose \T\ heel/felix - test with eyes open) - 0(Absent) 8. Sensory Loss (pinprick arms/legs/face) - 0(Normal) 9. Best Language: Aphasia (description/naming/reading) - 1(Mild to moderate aphasia) 10. Dysarthria (speech clarity - read or repeat words) - 0(Normal) 11. Extinction and Inattention (visual/tactile/auditory/spatial/personal) - 0(No abnormality) Initials: lp1 NIH Stroke Scale - NIH Stroke Score Date: 04/29/2019 Time: 19:44 Total Score = 1 1a. Level of Consciousness (LOC) - 0(Alert) 1b. Level of Consciousness (LOC) (Year \T\ Age) - 1(One) 1c. LOC Commands (Open \T\ Closes Eyes/Residential Energy Auditor) - 0(Both) 2. Best Gaze (Lateral Gaze Paresis) - 0(Normal) 3. Visual Field Loss - 0(No visual loss) 4. Facial Palsy - 0(Normal) 5a. Left Arm: Motor (10-second hold) - 0(No drift) 5b. Right Arm: Motor (10-second hold) - 0(No drift) 6a. Left Leg: Motor (5-second hold - always test supine) - 0(No drift) 6b. Right Leg: Motor (5-second hold - always test supine) - 0(No drift) 7. Limb Ataxia (finger/nose \T\ heel/felix - test with eyes open) - 0(Absent) 8. Sensory Loss (pinprick arms/legs/face) - 0(Normal) 9. Best Language: Aphasia (description/naming/reading) - 0(No aphasia) 10. Dysarthria (speech clarity - read or repeat words) - 0(Normal) 11. Extinction and Inattention (visual/tactile/auditory/spatial/personal) - 0(No abnormality) Initials: cp Signatures: Dispatcher [employer] EDRebecca Mathis RN RN aj1 Sae Lim, LOZENGE MAKER HELPER LOZENGE MAKER HELPER Vicki Chao Laura, RN RN lp1 Hari Lara PA PA cp Deepthi Pablo RN RN Keshia Pandya Michelle mw3 Corrections: (The following items were deleted from the chart) 21:58 21:46 Reassessment: Patient complaint of neck pain; provider notified lp1 lp1
[2019-04-29] MEDS ORDERED: CLOPIDOGREL 75 MG TABLET ONE (20:45)
[2019-04-29] MEDS ORDERED: ACETAMINOPHEN 500 MG TAB ONE (20:45)
[2019-04-29] MEDS ORDERED: METRONIDAZOLE 500mg IVPB 500 MG/100 ML BAG IV ONE (20:46)
[2019-04-29] MEDS ORDERED: CIPROFLOXACIN 400mg IV 400 MG/200 ML BAG IV ONE (20:46)
[2019-04-29] MEDS ORDERED: FOLIC ACID 5 MG/ML VIAL ONE (20:46)
[2019-04-29] MEDS ORDERED: NA CHLORIDE 0.9% 50 ML IV ONE (20:47)
[2019-04-29 23:35] VITALS: TEMP 98.2
[2019-04-29 23:37] VITALS: BP 151/56; O2SAT 95
--- NOTE | 2019-04-30 09:47 | EKG ---
Test Date: 2019-04-29 Test Time: 15:21:43 Household Chores: VICTORINO MEASUREMENT RESULTS: Intervals: Rate: 68 NC: QRSD: 102 QT: 402 QTc: 427 Spring: P: NC: QRS: 47 T: 111 INTERPRETIVE STATEMENTS: Atrial fibrillation Septal infarct, age undetermined Abnormal ECG Compared to ECG 04/05/2019 15:18:20 Myocardial infarct finding now present T-wave abnormality no longer present Electronically Signed On 04-30-19 09:46:34 CDT by Ayaan Ni
== END 2019-04-29 23:18 | disposition short-term general hospital (02) ==
LOC: ER 14:01
DX: K52.9 Noninfective gastroenteritis and colitis, unspecified (principal); R47.01 Aphasia; I10 Essential (primary) hypertension; E11.9 Type 2 diabetes mellitus without complications; E78.5 Hyperlipidemia, unspecified; I48.91 Unspecified atrial fibrillation; F90.9 Attention-deficit hyperactivity disorder, unspecified type; Z79.01 Long term (current) use of anticoagulants; Z79.02 Long term (current) use of antithrombotics/antiplatelets; Z86.73 Personal history of transient ischemic attack (TIA), and cerebral infarction without residual deficits; Z88.5 Allergy status to narcotic agent; Z88.6 Allergy status to analgesic agent; Z91.041 Radiographic dye allergy status
CPT/HCPCS: 96365; 96367; 96361; 96368; 93005; 85025; 80048; 36415; 83735; 85610; 82962; 80076; 84484; 83690; 83880; 71045; 74176; 70450; 96375; 99285; J7040; J2405; J0744; 81003; 81015

== ENCOUNTER 2019-05-23 04:41 | Observation (INO) | payer OTHER ==
[2019-05-23] MEDS ORDERED: ONDANSETRON 4 MG/2 ML VIAL ONE (05:14)
[2019-05-23 05:39] LABS: Absolute Lymphocytes (CBC) 1.9 K/uL (0.7-4.9); Basophils % 0.5 % (0-1.3); Hematocrit 34.5 % (36.0-45.0); Lymphocytes % 31.9 % (15.3-44.8); MPV 7.9 fL (7.6-11.3); RBC Red Blood Cell Count 3.62 M/uL (3.86-4.86)
[2019-05-23 05:54] LABS: Protime INR 1.33
[2019-05-23 05:59] LABS: ALT/SGPT 25 U/L (12-78); AST/SGOT 18 U/L (15-37); Albumin 3.8 g/dL (3.4-5.0); Alkaline Phosphatase 96 U/L (45-117); BUN Blood Urea Nitrogen 12 mg/dL (7-18); Bicarbonate 29 mmol/L (21-32); Bilirubin Direct 0.2 mg/dL (0-0.2); Bilirubin Total 0.5 mg/dL (0.2-1.0); CKMB Creatine Kinase MB < 1.0 ng/mL (0.3-3.6); Creatine Phosphokinase 30 U/L (26-192); Glucose Level 163 mg/dL (74-106); Magnesium 2.1 mg/dL (1.8-2.4); Potassium 3.7 mmol/L (3.5-5.1); Protein, Total 7.2 g/dL (6.4-8.2); Sodium Level 133 mmol/L (136-145); Troponin (Emerg Dept Use Only) < 0.02 ng/mL (0.0-0.045)
[2019-05-23 06:00] LABS: Amylase Level 34 U/L (25-115); Lipase 119 U/L (73-393)
[2019-05-23] MEDS ORDERED: MAGNE/ALUM HYDROXD 30 ML UCUP ONE (06:51)
--- NOTE | 2019-05-23 07:08 | EDPHYS ---
Physician Documentation [facility] Name: Radha Lara Age: 83 yrs Sex: Female : 1935 Arrival Date: 05/23/2019 Time: 04:42 Bed 5 Private MD: ED Physician Vega Gomez HPI: 05/23 05:24 This 83 yrs old Female presents to ER via Wheelchair with complaints of tw4 Altered Mental Status, Nausea. 05:24 The patient presents with disorientation. Onset: The symptoms/episode began/occurred tw4 just prior to arrival. Possible causes: unknown. Associated signs and symptoms: The patient has no apparent associated signs or symptoms. Current symptoms: In the emergency department the patient's symptoms are unchanged from the initial presentation. The patient has not experienced similar symptoms in the past. Historical: - Allergies: 04:57 Aspirin; bb 04:57 Clonidine; bb 04:57 Codeine; bb 04:57 Ibuprofen; bb 04:57 Iodinated Contrast Media - IV Dye; bb 04:57 Lisinopril; bb 04:57 Niacin; bb 04:57 Nitrofurantoin; bb 04:57 nitrous oxide; bb 04:57 vicoden; bb 04:57 Zoloft; bb - Home Meds: 04:57 carvedilol 25 mg Oral tab 1 tab 2 times per day [Active]; irbesartan 150 mg Oral tab 1 bb tab once daily [Active]; amlodipine 5 mg oral tab 1 tab once daily [Active]; hydralazine 100 mg Oral tab 3 times per day [Active]; Eliquis 5 mg Oral tab 2 times per day [Active]; metformin 500 mg Oral Tb24 1 tab 2 times per day [Active]; omeprazole 40 mg Oral cpDR 1 cap once daily [Active]; Crestor 40 mg Oral tab once daily [Active]; Plavix 75 mg Oral tab 1 tab once daily [Active]; levothyroxine 75 mcg tab 1 tab once daily [Active]; cranberry Oral twice a day [Active]; Probiotic Oral [Active]; Multiple Vitamins Oral tab daily [Active]; furosemide 40 mg Oral tab as needed [Active]; magnesium oxide 500 mg Oral cap [Active]; Vitamin D3 1,000 unit Oral chew daily [Active]; Vitamin B-12 2,000 mcg Oral TbER daily [Active]; vitamin E Oral once daily [Active]; - PMHx: 04:57 acid reflux; ADD/ADHD; Atrial Fib; CVA; Diabetes - NIDDM; Hyperlipidemia; Hypertension; bb Kidney stones; PE; Sleep Apnea; TIA; UTI; - PSHx: 04:57 Tonsillectomy; Cholecystectomy; Hysterectomy; triple bypass; Kidney stents; cataract bb surgery; - Immunization history:: Adult Immunizations unknown. - Social history:: Smoking status: Patient/guardian denies using tobacco, Patient/guardian denies using alcohol. - Ebola Screening: : No symptoms or risks identified at this time. ROS: 05:24 Constitutional: Negative for fever, chills, and weight loss, Eyes: Negative for injury, tw4 pain, redness, and discharge, Cardiovascular: Negative for chest pain, palpitations, and edema, Respiratory: Negative for shortness of breath, cough, wheezing, and pleuritic chest pain, Abdomen/GI: Negative for abdominal pain, nausea, vomiting, diarrhea, and constipation, Back: Negative for injury and pain, MS/Extremity: Negative for injury and deformity. 05:24 Neuro: Positive for altered mental status, Negative for dizziness, gait disturbance, headache, hearing loss, loss of consciousness, numbness, seizure activity, speech changes, syncope, near syncope, tingling, tinnitus, tremor, visual changes. Exam: 05:24 Constitutional: This is a well developed, well nourished patient who is awake, alert, tw4 and in no acute distress. Head/Face: Normocephalic, atraumatic. Chest/axilla: Normal chest wall appearance and motion. Nontender with no deformity. No lesions are appreciated. Cardiovascular: Regular rate and rhythm with a normal S1 and S2. No gallops, murmurs, or rubs. Normal PMI, no JVD. No pulse deficits. Respiratory: Lungs have equal breath sounds bilaterally, clear to auscultation and percussion. No rales, rhonchi or wheezes noted. No increased work of breathing, no retractions or nasal flaring. Abdomen/GI: Soft, non-tender, with normal bowel sounds. No distension or tympany. No guarding or rebound. No evidence of tenderness throughout. Back: No spinal tenderness. No costovertebral tenderness. Full range of motion. MS/ Extremity: Pulses equal, no cyanosis. Neurovascular intact. Full, normal range of motion. Vital Signs: 04:58 BP 165 / 71; Pulse 79; Resp 16 S; Temp 97.4(O); Pulse Ox 97% on R/A; Weight 62.14 kg bb (R); Height 5 ft. 2 in. (157.48 cm) (R); Pain 0/10; 06:13 BP 161 / 48; Pulse 68; Resp 16; Pulse Ox 96% on R/A; tl1 07:00 BP 152 / 54; Pulse 75; Resp 16; Pulse Ox 96% on R/A; ph 08:32 BP 149 / 51; Pulse 79; Resp 18; Temp 97.5; Pulse Ox 96% on R/A; ph 04:58 Body Mass Index 25.06 (62.14 kg, 157.48 cm) bb MDM: 04:55 Patient medically screened. tw4 07:07 Differential Diagnosis: CVA, electrolyte abnormality, hypoglycemia, intracranial bleed, tw4 overdose, pneumonia, seizure, sepsis, TIA, UTI, volume depletion. Data reviewed: vital signs, nurses notes. Data interpreted: Pulse oximetry: Interpretation: normal. Counseling: I had a detailed discussion with the patient and/or guardian regarding: the historical points, exam findings, and any diagnostic results supporting the discharge/admit diagnosis. Physician consultation: Joe Dunbar MD regarding admission, and will see patient in inpatient room. 05/23 05:07 Order name: Glucose, Ancillary Testing; Complete Time: 06:53 EDMS 05/23 05:13 Order name: Troponin (emerg Dept Use Only) tw4 05/23 05:13 Order name: CPK tw4 05/23 05:13 Order name: Magnesium tw4 05/23 05:13 Order name: Lipase tw4 05/23 05:13 Order name: Ckmb tw4 05/23 05:13 Order name: Amylase, Serum tw4 05/23 05:13 Order name: Hepatic Function; Complete Time: 06:53 tw4 05/23 06:53 Interpretation: Within normal limits. tw4 05/23 05:13 Order name: Basic Metabolic Panel; Complete Time: 06:53 tw4 05/23 06:53 Interpretation: Normal except: NA 133; GLUC 163. tw4 05/23 05:13 Order name: CBC with Diff; Complete Time: 06:53 tw4 10/30 06:53 Interpretation: Normal except: RBC 3.62; HGB 11.9; HCT 34.5. 05/23 05:13 Order name: Protime (+inr); Complete Time: 06:53 05/23 06:53 Interpretation: Normal except: PT 15.5. 05/23 05:13 Order name: Ptt, Activated; Complete Time: 06:53 05/23 06:53 Interpretation: Within normal limits: PTT 36.2. 05/23 05:14 Order name: Troponin (Emerg Dept Use Only); Complete Time: 06:53 EDMS 05/23 06:53 Interpretation: Within normal limits: TROPED < 0.02. 05/23 05:14 Order name: Creatine Phosphokinase; Complete Time: 06:53 EDMS 05/23 06:53 Interpretation: Within normal limits: CPK 30. 05/23 05:13 Order name: CT Stroke Brain w/o Contrast 05/23 05:13 Order name: EKG; Complete Time: 05:14 05/23 05:13 Order name: Accucheck; Complete Time: 05:20 05/23 05:13 Order name: Cardiac monitoring; Complete Time: 05:27 05/23 05:13 Order name: EKG - Nurse/Tech; Complete Time: 05:20 05/23 05:13 Order name: IV Saline Lock; Complete Time: 05:20 05/23 05:13 Order name: Labs collected and sent; Complete Time: 05:27 05/23 05:13 Order name: NPO; Complete Time: 05:30 05/23 05:13 Order name: O2 Per Protocol; Complete Time: 05:27 05/23 05:13 Order name: O2 Sat Monitoring; Complete Time: 05:27 05/23 05:14 Order name: Magnesium; Complete Time: 06:53 EDMS 05/23 06:53 Interpretation: Within normal limits: MG 2.1. 05/23 05:14 Order name: Lipase; Complete Time: 06:53 EDMS 05/23 06:54 Interpretation: Within normal limits: LIP 119. 05/23 05:14 Order name: CKMB Creatine Kinase MB; Complete Time: 06:53 EDNH 05/23 05:14 Order name: Amylase Level; Complete Time: 06:53 EDNH 05/23 06:23 Order name: Urine Dipstick--Ancillary (enter results) mw2 05/23 05:13 Order name: Stroke Swallow Screen; Complete Time: 05:39 tw4 Administered Medications: 05:15 Drug: Zofran 4 mg Route: IVP; Site: left antecubital; bb Disposition: 05/23/19 07:07 Hospitalization ordered by oJe Dunbar for Observation. Preliminary diagnosis is Altered mental status, unspecified. - Bed requested for Telemetry/MedSurg (observation). - Status is Observation. ph - Condition is Stable. - Problem is new. - Symptoms have improved. UTI on Admission? No Signatures: Dispatcher [employer] EDNH Sunshine Guthrie Brenda, LAILA RN Linette Padilla RN RN Vega Perera MD MD tw4 Corrections: (The following items were deleted from the chart) 08:25 07:07 Hospitalization Ordered by Joe Dunbar MD for Observation. Preliminary diagnosis bd is Altered mental status, unspecified. Bed requested for Telemetry/MedSurg (observation). Status is Observation. Condition is Stable. Problem is new. Symptoms have improved. UTI on Admission? No. tw4 10:05 08:25 05/23/2019 07:07 Hospitalization Ordered by Joe Dunbar MD for Observation. ph Preliminary diagnosis is Altered mental status, unspecified. Bed requested for Telemetry/MedSurg (observation). Status is Observation. Condition is Stable. Problem is new. Symptoms have improved. UTI on Admission? No. bd
--- NOTE | 2019-05-23 07:08 | ER ---
Nurse's Notes [facility] Name: Radha Lara Age: 83 yrs Sex: Female : 1935 Arrival Date: 05/23/2019 Time: 04:42 Bed 5 Private MD: Diagnosis: Altered mental status, unspecified Presentation: 05/23 04:58 Presenting complaint: Patient states: she hasn't been feeling well the last 2 days she bb is confused and has been nauseous with vomiting. Transition of care: patient was not received from another setting of care. Onset of symptoms was May 20, 2019. Risk Assessment: Do you want to hurt yourself or someone else? Patient reports no desire to harm self or others. Initial Sepsis Screen: Does the patient meet any 2 criteria? No. Patient's initial sepsis screen is negative. Does the patient have a suspected source of infection? No. Patient's initial sepsis screen is negative. Care prior to arrival: None. 04:58 Method Of Arrival: Wheelchair bb 04:58 Acuity: YOLANDE 3 bb Historical: - Allergies: 04:57 Aspirin; bb 04:57 Clonidine; bb 04:57 Codeine; bb 04:57 Ibuprofen; bb 04:57 Iodinated Contrast Media - IV Dye; bb 04:57 Lisinopril; bb 04:57 Niacin; bb 04:57 Nitrofurantoin; bb 04:57 nitrous oxide; bb 04:57 vicoden; bb 04:57 Zoloft; bb - Home Meds: 04:57 carvedilol 25 mg Oral tab 1 tab 2 times per day [Active]; irbesartan 150 mg Oral tab 1 bb tab once daily [Active]; amlodipine 5 mg oral tab 1 tab once daily [Active]; hydralazine 100 mg Oral tab 3 times per day [Active]; Eliquis 5 mg Oral tab 2 times per day [Active]; metformin 500 mg Oral Tb24 1 tab 2 times per day [Active]; omeprazole 40 mg Oral cpDR 1 cap once daily [Active]; Crestor 40 mg Oral tab once daily [Active]; Plavix 75 mg Oral tab 1 tab once daily [Active]; levothyroxine 75 mcg tab 1 tab once daily [Active]; cranberry Oral twice a day [Active]; Probiotic Oral [Active]; Multiple Vitamins Oral tab daily [Active]; furosemide 40 mg Oral tab as needed [Active]; magnesium oxide 500 mg Oral cap [Active]; Vitamin D3 1,000 unit Oral chew daily [Active]; Vitamin B-12 2,000 mcg Oral TbER daily [Active]; vitamin E Oral once daily [Active]; - PMHx: 04:57 acid reflux; ADD/ADHD; Atrial Fib; CVA; Diabetes - NIDDM; Hyperlipidemia; Hypertension; bb Kidney stones; PE; Sleep Apnea; TIA; UTI; - PSHx: 04:57 Tonsillectomy; Cholecystectomy; Hysterectomy; triple bypass; Kidney stents; cataract bb surgery; - Immunization history:: Adult Immunizations unknown. - Social history:: Smoking status: Patient/guardian denies using tobacco, Patient/guardian denies using alcohol. - Ebola Screening: : No symptoms or risks identified at this time. Screenin:00 Abuse screen: Denies threats or abuse. Nutritional screening: No deficits noted. bb Tuberculosis screening: No symptoms or risk factors identified. Fall Risk None identified. 05:40 The patient has not been NPO before screening. The patient is alert, able to follow bb commands. The patient does not exhibit slurred or garbled speech The patient is not exhibiting difficulty speaking. The patient does not exhibit difficulty understanding words. The patient is able to swallow own secretions with no drooling or need for suction. Patient tolerated one teaspoon of water. No drooling, immediate coughing, gurgling, or clearing of the throat was noted. The patient tolerated 90mL of water. No drooling, immediate coughing, gurgling, or clearing of the throat was noted. The patient passed the bedside swallow screening. Oral medications may be given as ordered. Contact Physician for further diet orders. Assessment: 05:00 General: Appears ill, Behavior is cooperative, listless. Neuro: Level of Consciousness bb is awake, listless, Oriented to person, place. Cardiovascular: Capillary refill < 3 seconds Patient's skin is warm and dry. Pulses are palpable in right radial artery and left radial artery. Respiratory: Respiratory effort is even, unlabored, Respiratory pattern is regular. GI: Abdomen is round Reports nausea, vomiting. Derm: Skin is dry, Skin is pale, Skin temperature is warm. Musculoskeletal: Circulation, motion, and sensation intact. 07:00 Reassessment: Patient appears in no apparent distress at this time. Patient and/or ph family updated on plan of care and expected duration. Pain level reassessed. Pt resting comfortably w/ stable vitals, daughter at bedside, awaiting room assignment. 08:00 Reassessment: Patient appears in no apparent distress at this time. No changes from ph previously documented assessment. Patient and/or family updated on plan of care and expected duration. Pain level reassessed. 08:52 Reassessment: Patient appears in no apparent distress at this time. Patient and/or ph family updated on plan of care and expected duration. Pain level reassessed. Attempted to call report, placed on hold > 5 min. 09:36 Reassessment: Patient appears in no apparent distress at this time. Patient and/or ph family updated on plan of care and expected duration. Pain level reassessed. Report called to Berenice ULLOA. Vital Signs: 04:58 BP 165 / 71; Pulse 79; Resp 16 S; Temp 97.4(O); Pulse Ox 97% on R/A; Weight 62.14 kg bb (R); Height 5 ft. 2 in. (157.48 cm) (R); Pain 0/10; 06:13 BP 161 / 48; Pulse 68; Resp 16; Pulse Ox 96% on R/A; tl1 07:00 BP 152 / 54; Pulse 75; Resp 16; Pulse Ox 96% on R/A; ph 08:32 BP 149 / 51; Pulse 79; Resp 18; Temp 97.5; Pulse Ox 96% on R/A; ph 04:58 Body Mass Index 25.06 (62.14 kg, 157.48 cm) bb ED Course: 04:42 Patient arrived in ED. ds1 04:55 Vega Gomez MD is Attending Physician. tw4 04:58 Arm band placed on Patient placed in an exam room, on a stretcher, on pulse oximetry. bb EKG completed in triage. Results shown to MD. Family accompanied patient. 04:59 Triage completed. bb 05:00 Patient has correct armband on for positive identification. Bed in low position. Call bb light in reach. Side rails up X2. Adult w/ patient. Warm blanket given. 05:00 Inserted saline lock: 20 gauge in right antecubital area, using aseptic technique. ds4 Blood collected. 05:48 CT Stroke Brain w/o Contrast In Process Unspecified. EDMS 07:06 Joe Dunbar MD is Hospitalizing Provider. tw4 07:27 Linette Julien, RN is Primary Nurse. ph 09:37 No provider procedures requiring assistance completed. Patient admitted, IV remains in ph place. Administered Medications: 05:15 Drug: Zofran 4 mg Route: IVP; Site: left antecubital; bb Outcome: 07:07 Decision to Hospitalize by Provider. tw4 09:37 Admitted to Tele accompanied by tech, family with patient, via wheelchair, room 201, with chart, Report called to Berenice ULLOA 09:37 Condition: stable 09:37 Instructed on the need for admit. 10:05 Patient left the ED. Signatures: Dispatcher [employer] EDMD Nimisha Marcus ds1 Latihsa Chen RN RN José Guy ds4 Khushbu Luque RN RN tl1 Linette Julien, LAILA RN Vega Gomez MD MD tw4
[2019-05-23 08:46] LABS: Urine Blood NEGATIVE (NEG); Urine Glucose NEGATIVE (NEG); Urine Protein NEGATIVE (NEG); Urine pH 7.5 (5.0-7.0)
[2019-05-23] MEDS ORDERED: CLOPIDOGREL 75 MG TABLET PO SCH ×2 (09:54→21:00)
[2019-05-23] MEDS ORDERED: ONDANSETRON 4 MG/2 ML VIAL IV PRN (09:54)
[2019-05-23] MEDS ORDERED: ACETAMINOPHEN 500 MG TAB PO PRN (09:54)
[2019-05-23 10:09] VITALS: BMI 25.2
[2019-05-23] MEDS ORDERED: LORAZEPAM 0.5 MG TABLET PO ONE (10:24)
[2019-05-23] MEDS: NA CHLORIDE 0.9% 1,000 ML IV SCH (10:46)
--- NOTE | 2019-05-23 10:49 | RAD REPORT ---
EXAM DESCRIPTION: CT Head Without Intravenous Contrast CLINICAL HISTORY: The patient is 83 years old and is Female; WEAKNESS TECHNIQUE: Axial computed tomography images of the head/brain without intravenous contrast. Sagitt al and coronal reformatted images were created and reviewed. This CT exam was performed using one o r more of the following dose reduction techniques: automated exposure control, adjustment of the mA and/or kV according to patient size, and/or use of iterative reconstruction technique. COMPARISON: April 29, 2019 FINDINGS: Brain: Periventricular and deep white matter hypodensities, most commonly due to nonspec [facility] white matter chronic microvascular ischemia. Mild cerebral atrophy. No hemorrhage. Ventricles: Unremarkable. No ventriculomegaly. Bones/joints: Unremarkable. No acute fracture. Soft tissues: Unremarkable. Vasculature: Vascular calcifications. Sinuses: Unremarkable as visualized. No acute sinusitis. Mastoid air cells: Unremarkable as visualized. No mastoid effusion. IMPRESSION: No acute intracranial findings. Mild cerebral atrophy and nonspecific chronic microvascu lar ischemic changes. If there is persistent concern for acute ischemia recommend obtaining MRI for f lennox evaluation. Electronically signed by: Mark Bocanegra MD 05/23/2019 6:11 AM CDT Due to temporary technical issues with the PACS/Fluency reporting system, reports are being signed by the in house radiologist as a courtesy to ensure prompt reporting. The interpreting radiologist is bradley jaramillo responsible for the content of the report.
--- NOTE | 2019-05-23 10:56 | EKG ---
Test Date: 2019-05-23 Test Time: 05:07:04 Collar Shaper Operator: KIMI MEASUREMENT RESULTS: Intervals: Rate: 77 CT: QRSD: 94 QT: 392 QTc: 443 [place]: P: CT: QRS: 29 T: 105 INTERPRETIVE STATEMENTS: Atrial fibrillation with premature ventricular or aberrantly conducted complexes Anterior infarct, age undetermined Abnormal ECG Compared to ECG 04/29/2019 15:21:43 Ventricular premature complex(es) now present Myocardial infarct finding still present Electronically Signed On 05-23-19 10:56:10 CDT by Ayaan Ni
--- NOTE | 2019-05-23 12:28 | RAD REPORT ---
EXAM DESCRIPTION: MRI - Brain W/Wo Cont - 05/23/2019 12:14 pm CLINICAL HISTORY: AMS, rule out CVA COMPARISON: CT head May 23, MR brain April 2018 TECHNIQUE: Sagittal and axial T1-weighted images were obtained. Axial PD/heavily T2-weighted and T2- FLAIR images were obtained along with axial DWI/ADC mapping sequences. Coronal heavily T2 weighted s equence obtained. Axial and coronal post-contrast T1-weighted images were also obtained. A 14 ml Mul tihance contrast following utilized. FINDINGS: No intracranial hemorrhage, mass or acute infarction. There is no edema or shift of midli ne structures. No extra-axial fluid collections. Alberto-matter/white matter junction is preserved. Sig nal voids are seen as a normal finding in the major intracranial vessels. Mild to moderate atrophy ch anges are present. Moderate severity chronic ischemic change seen in the cerebral white matter. Brain stem is spared. The Post-contrast images show normal enhancement. No dural thickening. Mastoid air cells and paranasal sinuses are clear. No globe or orbital content abnormality. No sella or supra sella abnormality. IMPRESSION: No acute infarction. No hemorrhage, mass or acute intracranial finding. Mild to moderate atrophy and moderate chronic ischemic changes are present. Pattern is not substanti ally different from April 2018.
--- NOTE | 2019-05-23 12:32 | RAD REPORT ---
EXAM DESCRIPTION: MRI - MRA Head Wo Cont - 05/23/2019 12:14 pm CLINICAL HISTORY: AMS, rule out CVA COMPARISON: CT head same date, MRI same date TECHNIQUE: Axial and coronal 3D [id number] image acquisition was performed. 3D rotational images were generated with source and reconstruction images reviewed. Horizontal and vertical axis rotation al views generated using MIP protocol. FINDINGS: No aneurysm or vascular malformation. Left vertebral artery is dominant. Tortuosity of the vertebrobasilar vasculature seen without stenosis. Exam has motion degradation issues. There is long segment atherosclerotic narrowing involving the pet carlos portion of the left internal carotid artery estimated at 50%. This continues into the supraclinoi d portion. Significant atherosclerotic changes are present narrowing of the left anterior cerebral ar radha A2 segment. This is a high-grade focal bandlike stenosis. Prominent atherosclerotic changes invo lve the left middle cerebral artery M1 and M2 branches. Atherosclerotic changes cause significant zaida rowing of the supraclinoid portion of the right internal carotid artery. IMPRESSION: Significant atherosclerotic changes are present with significant luminal narrowing of ea ch supraclinoid portion of the internal carotid artery. Significant flow restricting atherosclerotic lesions in the left anterior and middle cerebral artery distributions. No aneurysm or vascular malformation.
--- NOTE | 2019-05-23 12:36 | RAD REPORT ---
EXAM DESCRIPTION: MRI - MRA Neck W/Wo Cont - 05/23/2019 12:14 pm CLINICAL HISTORY: AMS, CVA, memory loss and confusion COMPARISON: MRA neck April 2018 TECHNIQUE: MR angiography of the cervical vasculature performed. Coronal imaging plane acquisition u tilized. A 14 MultiHance contrast volume was utilized. Coronal reformatted images were generated and reviewed. Vertical axis 3D rotational projections obtained using maximum intensity projection protoco l. FINDINGS: Aortic arch is 3 vessel configuration. Mild narrowing at the origin of the left common car otid artery, less than 50%. Mild narrowing at the origin of each vertebral artery. Left vertebral art aron is dominant. No significant stenosis of the vertebrobasilar vasculature. No dissection in the pos terior circulation. Atherosclerotic change causes approximately 40% stenosis at the left carotid bulb. This is similar to the prior study. Focal narrowing is present at the origin of the right internal carotid artery. This is also estimated at 40% and not substantially different from comparison. The long segment narrowing of the left internal carotid artery seen on the prior study is not present on the current exam. IMPRESSION: Approximately 40% stenosis near the origin of each internal carotid artery.
--- NOTE | 2019-05-23 12:49 | RAD REPORT ---
EXAM DESCRIPTION: RAD - Chest Single View - 05/23/2019 12:42 pm CLINICAL HISTORY: Cough COMPARISON: April 29 TECHNIQUE: AP portable chest image was obtained 1223 hours . FINDINGS: Lungs are clear. Lung markings are similar to comparison. CABG surgical changes noted. Hea rt and vasculature are normal. No measurable pleural effusion and no pneumothorax. No acute bony abno rmality seen. No acute aortic findings suspected. IMPRESSION: No acute cardiopulmonary process.
--- NOTE | 2019-05-23 16:07 | ECHO ---
HEIGHT: 5 ft 2 in WEIGHT: 138 lb 0 oz DATE OF STUDY: 05/23/[address]: Joe Dunbar MD 2-DIMENSIONAL: YES M.MODE: YES DOPPLER: YES COLOR FLOW: YES TDS: NO PORTABLE: NO DEFINITY: NO BUBBLE STUDY: NO DIAGNOSIS: STROKE CARDIAC HISTORY: CATHERIZATION: YES SURGERY: YES PROSTHETIC VALVE: NO PACEMAKER: NO MEASUREMENTS (cm) DIASTOLIC (NORMALS) SYSTOLIC (NORMALS) IVSd 1.2 (0.6-1.2) LA Diam 3.9 (1.9-4.0) LVEF 68% LVIDd 4.0 (3.5-5.7) LVIDs 2.5 (2.0-3.5) %FS 37% LVPWd 1.1 (0.6-1.2) Ao Diam 2.8 (2.0-3.7) 2 DIMENSIONAL ASSESSMENT: RIGHT ATRIUM: NORMAL LEFT ATRIUM: DILATED RIGHT VENTRICLE: NORMAL LEFT VENTRICLE: NORMAL TRICUSPID VALVE: NORMAL MITRAL VALVE: NORMAL PULMONIC VALVE: NORMAL AORTIC VALVE: SCLEROSIS PERICARDIAL EFFUSION: NONE AORTIC ROOT: NORMAL LEFT VENTRICULAR WALL MOTION: NORMAL DOPPLER/COLOR FLOW: MILD MITRAL AND TRICUSPID REGURGITATION. ESTIMATED RIGHT VENTRICULAR SYSTOLIC PRESSURE 42 mmHg. MILD PULMONARY HYPERTENSION. COMMENTS: NORMAL LEFT VENTRICULAR EJECTION FRACTION. DILATED LEFT ATRIUM. AORTIC SCLEROSIS WITH NO AORTIC STENOSIS OR AORTIC REGURGITATION. MILD MITRAL AND TRICUSPID REGURGITATION. MILD PULMONARY HYPERTENSION. TECHNOLOGIST: Alejandro BATISTA
[2019-05-23] MEDS ORDERED: levETIRAcetam 500 MG in NA CHLORIDE 0.9% 100 ML IV ONE (20:00)
[2019-05-23] MEDS: APIXABAN 5 MG TABLET PO SCH (20:54)
[2019-05-23] MEDS ORDERED: ROSUVASTATIN 10 MG TAB PO SCH (21:00)
[2019-05-23] MEDS ORDERED: ATORVASTATIN 40 MG TAB PO SCH (21:00)
[2019-05-23] MEDS ORDERED: LEVETIRACETAM 500 MG/5 ML VIAL IV ONE (21:24)
[2019-05-23] MEDS ORDERED: NA CHLORIDE 0.9% 100 ML ONE (21:26)
--- NOTE | 2019-05-23 23:01 | HP ---
Date of Admission: 05/23/2019 Primary Care Physician: Dr. Britt. Consultants: Dr. Diamond with Neurology. Chief Complaint: Altered mental status. Code Status: Full. History Of Present Illness: Patient is an 83-year-old female with history of previous stroke, curren tly on Plavix; hypertension; diabetes, [id number]; hyperlipidemia; carotid artery disease; atrial fibrillation, on Eliquis; GERD; and depression. Patient was recently at [facility] f or similar symptoms, had workup done over there and was discharged on the . 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 Patient also reported some generalized malaise ongoing for the past 3 to 4 days onofre ng with allergy symptoms. Otherwise, she denies any fevers, chills. Does report some nausea and vom iting, had 1 episode of diarrhea, however, no blood in the stool. She also has decreased p.o. intake . The patient was then referred to the ER for further evaluation. Her symptoms are constant, modera te, progressively worsening. By the time she arrived to the ER, her confusion had improved. Her wor kup revealed normal WBC count. Sodium was slightly low. CT scan of the brain was unremarkable. Past Medical History: Hypertension; hyperlipidemia; diabetes mellitus type 2, non-insulin dependent; history of TIA and CVA; atrial fibrillation, on anticoagulation; GERD; depression; history of nephro lithiasis; history of pulmonary embolism; coronary artery disease. Surgical History: Tonsillectomy, removal of colon polyps, CABG, cholecystectomy, hysterectomy, bone spurs removed, 3 stents in the right kidney. Allergies: IODINE, LISINOPRIL, NIACIN, NITROFURANTOIN, NITROUS OXIDE, AND ASPIRIN WELL CLONIDI NE, CODEINE, AND VICODIN. Medications: List reviewed. Social History: The patient denies any tobacco use. No alcohol use or illicit drug use. Lives at [facility] with her , and lives in an attached unit with her daughter. Independent in her activities of daily living. Family History: Mother had heart disease, of an ND at age of 64. Father had heart disease, d at 77. Review of Systems: Ten-point system reviewed, negative except as per HPI. Physical Examination: Vital Signs: Temperature 97.4, heart rate 79, blood pressure 165/71, respirations 16, O2 97% on room air. General: Awake, alert, oriented x3. Elderly female, in some mild distress. HEENT: Normocephalic, atraumatic. PERRLA. EOMI. Moist mucous membranes. Oropharynx is clear. Co njunctivae anicteric. Neck: Supple. No JVD. Trachea midline. CV: S1, S2. Irregularly irregular. Peripheral pulses weak. Respiratory: Moving air well bilaterally. No wheezing or stridor. No use of accessory muscles. Gastrointestinal: Abdomen is soft, nontender, nondistended. Positive bowel sounds. No guarding or rigidity. Extremities: No clubbing, cyanosis, or edema. No calf tenderness. Neuro: Cranial nerves 2 through 12 intact grossly. No focal neurological deficits. Speech is chelle l. Patient is alert and oriented x3. No facial asymmetry. Sensation intact to light touch. Skin: No rashes. Normal skin turgor. Laboratory Data: Sodium 133, potassium 3.7, chloride 100, CO2 of 29, BUN 12, creatinine 0.61, glucos e 163, calcium 9, magnesium 2.1. Troponin less than 0.02. WBC 5.9, H and H 11.9 and 34.5, platelets 177, neutrophils 53%. INR 1.33. UA is negative. Head CT scan shows no acute intracranial findings . Mild cerebral atrophy and nonspecific chronic microvascular ischemic changes present. EKG shows a trial fibrillation with premature ventricular complexes, rate of 77. Assessment And Plan: An 83-year-old female with: 1.Acute metabolic encephalopathy, unclear etiology, may be seizure versus possible transient ischemi c attack or cerebrovascular accident. Patient does have history. I spoke with Dr. Diamond, patient's neurologist, who has been consulted, recommends repeat MRI of the brain. Patient does have carotid a rtery disease as well. Has seen Cardiology in the past. We will also obtain MRA of the head and nec k. Patient does not have any allergy to gadolinium, only to iodine. We will start on stroke guideli jose g. Patient is allergic to aspirin. Currently on Plavix and Eliquis. 2.Hyponatremia. Sodium 133. Start on IV fluids. We will continue to monitor. 3.Essential hypertension. We will allow permissive hypertension, systolic 160s to 180s. 4.Coronary artery disease, pokagon artery and pokagon heart, status post bypass, stable. No angina. 5.Diabetes mellitus type 2, [id number] with hyperglycemia. We will continue on sliding s luz maria insulin. Monitor blood glucose levels. 6.History of pulmonary embolism, on Eliquis. 7.Atrial fibrillation, on Eliquis. 8.Mixed hyperlipidemia. Continue with statin. 9.Depression with anxiety, stable. Plan: Admit patient to Med-Surg, [facility] as observation. /CHIKI Voice ID: [id number]
[2019-05-23 23:48] VITALS: O2SAT 95
--- NOTE | 2019-05-24 01:01 | CON ---
Date of Consultation: 05/23/2019 Reason: Possible TIA. Chief Complaint: "I had the weirdest thing happened to me last night." History: This is a very nice 83-year-old lady, who I have known for a while. Primarily, I knew her initially because her has severe advanced Alzheimer disease. Patient has chronic AFib, on [facility] anticoagulation. She has had several TIAs and has stroke as well. Over the last 18 months to 2 years, workup has revealed significant intracranial atherosclerosis and she has been evaluated at the medical center at [facility] in [place] several times, had an arteriogram even, and there was no additional surgical intervention that was recommended. Maximal medical management has been recommend ed and she did fairly well over this summer. She was actually in this hospital on the with nause a, vomiting, and weakness. She had transient dysarthria and right-sided weakness. She was subsequen tly transferred up to [place], where she had re-evaluation of the entire vascular anatomy from the dc ck up and no evidence of a new stroke. She has known significant intracranial atherosclerosis, left greater than right, near occlusive, so no medication changes were initiated and then she was discharg ed to home. I saw her in the office just like last week for a followup after her recent discharge. Events were noted. She needs to have eye surgery and we were very trepidatious about that since she is on dual anticoagulation with Eliquis and Plavix. So, we had recommended that anticoagulation be a ddressed prior to any type of interventions that might require cessation of anticoagulants. So, she was home last night with her and she was sleeping. He got up, he woke her up, this is not un common. She was helping him change and then she just felt abruptly confused. She did not know who s he was. She did not know where she was. She did not know her name. It is very much unlike her prio r TIAs and strokes, which have had a very left MCA predominant flavor to them. They summoned their f amily. They were brought to the emergency department with confusion and nausea and she improved. CT was negative. Not a tPA candidate, on Eliquis, improving symptoms. She was admitted. Since being admitted, brain MRI, no new stroke, known intracranial atherosclerotic disease. EEG was ordered and it is reviewed. It is 9 Hz background, but there are new epileptiform discharges in the right fronto temporal region, not sure why they are on the right since most of her prior symptoms have been left h emispheric, but indeed they are there. Patient is better. She does not have weakness. She is still a little bit intermittently confused and not quite at her baseline. She is normally quite sharp for her age and she was having difficulty using her smart phone. Consultation was requested. Past Medical History: Neurologic difficulties as alluded to; atrial fibrillation; hyperlipidemia, we ll controlled on the statin; hypothyroidism. Allergies: ASPIRIN, CLONIDINE, CODEINE, HYDROCODONE, IODINE. Social History: , nonsmoker, although states smoker in the chart. Normally independent activ ities of daily living. Review of Systems: General: Chronically ill. Eyes: Anisocoria. Ocular issues as alluded to in History. Ears, Nose, Throat: Negative. Cardiovascular: As alluded to. Pulmonary: Negative. GI: Nausea. : Negative. Neurologic: As noted. Psychiatric: Negative. Endocrine: Negative. Hematologic: Negative. Physical Examination: Vital Signs: 97.9, 75, 16, 145/54. Neurologic: She is awake, alert, oriented x3, but intermittently loses her train of thought. Pupils reactive. Anisocoria, OD greater than OS noted previous exam. Ocular motion full. Parker full. F acial strength, sensation normal. Tongue protrudes evenly. Soft palate elevates symmetrically bilat erally. Extremity strength full. Sensation intact. Reflexes 1/4 left toe upgoing, which is a new f inding. Right toe downgoing. Cerebellar exam demonstrates no ataxia. Pertinent Laboratory Data/imaging: An EEG is noted. CBC: Hemoglobin 11.9, otherwise normal. PT 15 .5. Glucose 140. Creatinine normal. Liver function tests normal. UA normal. Impression: New-onset complex partial seizure. Plan: We will start IV Keppra tonight and continue that p.o. tomorrow. The seizure proper is probab ly from the vascular insufficiency/prior strokes. I think she should be observed at least overnight, starting new medication, and given her age, she is likely to have some drowsiness and dizziness, and she is already a significant fall risk. Thank you for the consult. We will continue to follow with you. MI Voice ID: [id number] Report ID: [id number]
[2019-05-24] MEDS: NA CHLORIDE 0.9% 1,000 ML IV SCH (05:32)
[2019-05-24] MEDS ORDERED: LEVOTHYROXINE SOD 0.075 MG TAB PO SCH (06:00)
[2019-05-24 06:26] LABS: Basophils % 0.5 % (0-1.3); Hematocrit 36.1 % (36.0-45.0); Lymphocytes % 27.9 % (15.3-44.8); MPV 8.1 fL (7.6-11.3); RBC Red Blood Cell Count 3.79 M/uL (3.86-4.86)
[2019-05-24] MEDS ORDERED: PANTOPRAZOLE 40MG TABLET PO SCH (06:30)
[2019-05-24 07:05] LABS: ALT/SGPT 24 U/L (12-78); AST/SGOT 20 U/L (15-37); Albumin 3.3 g/dL (3.4-5.0); Alkaline Phosphatase 82 U/L (45-117); BUN Blood Urea Nitrogen 9 mg/dL (7-18); Bicarbonate 27 mmol/L (21-32); Bilirubin Total 0.5 mg/dL (0.2-1.0); Glucose Level 112 mg/dL (74-106); HDL Cholesterol 43 mg/dL (40-60); LDL Cholesterol, Calculated 30 (<130); Potassium 3.7 mmol/L (3.5-5.1); Protein, Total 6.8 g/dL (6.4-8.2); Sodium Level 139 mmol/L (136-145)
[2019-05-24] MEDS: APIXABAN 5 MG TABLET PO SCH (08:00)
[2019-05-24] MEDS ORDERED: ROSUVASTATIN CALCIUM PO SCH (09:00)
[2019-05-24] MEDS ORDERED: POTASSIUM CL SA 10 MEQ TAB PO ONE (09:00)
--- NOTE | 2019-05-24 09:55 | EEG ---
CHART: [id number] TEST ID#: [id number] DATE OF STUDY: 05/23/2019 THE EEG WAS RECORDED PORTABLE IN THE PATIENTS ROOM ON A 17 CHANNEL MACHINE. ELECTRODES WERE APPLIED IN THE USUAL MANNER USING THE INTERNATIONAL 10-20 SYSTEM. THE WAKING BACKGROUND RHYTHM IN THIS RECORD CONSISTS OF FAIRLY WELL DEVELOPED AND FAIRLY WELL ORGANIZED WAVES OF 9 HZ., MAXIMAL IN THE POSTERIOR HEAD REGIONS WHICH ATTENUATE NORMALLY WITH EYE OPENING. IN DROWSINESS THE BACKGROUND DROPS TO 8 HZ. RARE SHARP WAVES AND SHARP FRAGMENTS ARE NOTED ON THE RIGHT, MAXIMAL IN THE TEMPORAL REGION. SLEEP DID NOT OCCUR. HYPERVENTILATION WAS NOT PERFORMED. PHOTIC STIMULATION PRODUCED FAIR DRIVING BILATERALLY. IMPRESSION: ABNORMAL EEG BECAUSE OF RARE EPILEPTIFORM DISCHARGES ON THE RIGHT. THE ABOVE SUGGEST FOCAL PATHOLOGY/ DYSFUNCTION ON THE RIGHT WITH A POTENTIALLY IRRITABLE AND EPILEPTOGENIC COMPONENT.
[2019-05-24 12:27] VITALS: BP 170/71; TEMP 97.5
--- NOTE | 2019-05-25 05:00 | DS ---
Date of Discharge: 05/24/2019 Consultants: Dr. Diamond with Neurology. Discharge Diagnoses: 1.Acute metabolic encephalopathy, resolved. 2.Acute seizure. 3.Hyponatremia, corrected. 4.Essential hypertension, stable. 5.Coronary artery disease, [place] artery, [place] heart status post coronary artery bypass graft. No angina. 6.Diabetes mellitus type 2, [id number]-[id number] with hyperglycemia, stable. 7.History of pulmonary embolism on Eliquis. 8.Atrial fibrillation, chronic, permanent on Eliquis. 9.Mixed hyperlipidemia, continue statin. 10.Depression with anxiety, stable. 11.History of transient ischemic attack, cerebrovascular accident, no new strokes. Hospital Course: Patient is an 83-year-old female with past medical history of CVA, on Plavix, hyper tension, diabetes, hyperlipidemia, carotid artery disease, atrial fibrillation on Eliquis, GERD, depr ession, history of PE, who comes in with altered mental status. Patient was somewhat confused. She was admitted to the hospital for further workup. Neurology was consulted. They recommended repeatin g MRI to rule out new CVA. MRI of the brain did not show any acute CVA, showed old changes. MRA of the neck and brain was also done showed significant atherosclerotic changes with significant luminal narrowing of each supraclinoid portion of the internal carotid artery, significant flow restriction, atherosclerotic lesions in the left anterior and middle cerebral artery distributions. No aneurysms or vascular malformation. Echocardiogram was done, which showed EF of 68%, aortic sclerosis with no stenosis or regurg, mild mitral and tricuspid regurg, mild pulmonary hypertension. Patient had an ex tensive workup done at [facility] earlier this month with arteriogram and no surgical intervention wa s recommended at that time. Patient is on maximal medical management. Stroke was ruled out. EEG wa s done and was found to have epileptiform discharges in the right frontotemporal region. Therefore, she was loaded with IV Keppra and switched to oral Keppra the following day. Patient did not have an y further seizure episodes or episodes of confusion. She did well on the Keppra. She was then clear ed for discharge. She was able to ambulate without difficulty. Did not have any symptoms of orthost atic hypotension or difficulty tolerating her diet. She was then sent home in a stable condition. Activity: As tolerated. Diet: Diabetic. Followup: Follow up with primary care physician in 2-3 days. Follow up with neurologist, Dr. Diamond in 2 weeks. Return to ER for worsening condition. Medications: As per medication reconciliation list. Physical Examination: General: Awake, alert, and oriented x3, elderly female. CV: S1, S2. Irregularly irregular. Respiratory: Moving air well bilaterally. Abdomen: Abdomen is soft, nontender, nondistended. Positive bowel sounds. Extremities: No clubbing, cyanosis, edema. Neurologic: Nonfocal. SA/MODL Voice ID: [id number] Report ID: [id number]
--- OUTSIDE RECORDS SUMMARY | 2019-06-03 15:56 | XMS REPORT ---
:1935 Author Organization [employer] Care Team Providers Name Role Phone Adamaris Cifuentes Provider Role Unavailable Allergies, Adverse Reactions, Alerts Substance Reaction Event Type Zoloft Info Not Available Drug Allergy Vicodin Info Not Available Drug Allergy Niacin Info Not Available Drug Allergy Macrodantin Info Not Available Drug Allergy Lisinopril Info Not Available Drug Allergy Aspirin Info Not Available Drug Allergy Iodine contrast dye Info Not Available Non Drug Allergy Nitrous oxide Info Not Available Non Drug Allergy Problems Problem Type Condition Code Onset Dates Condition Status Assessment Recurrent UTI N39.0 Active Assessment Lower urinary tract symptoms (LUTS) R39.9 Active Assessment Mixed stress and urge urinary N39.46 Active incontinence Assessment History of recurrent UTI (urinary Z87.440 Active tract infection) Problem Recurrent urinary tract infection N39.0 Active Problem History of TIA (transient ischemic Z86.73 Active attack) Problem Hospital discharge follow-up Z09 Active Problem 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 Active Problem Atherosclerosis I70.90 Active Problem Chronic fatigue R53.82 Active Problem Stenosis of left carotid artery I65.22 Active Problem Mixed stress and urge urinary N39.46 Active incontinence Problem Other chronic pain G89.29 Active Problem GERD (gastroesophageal reflux K21.9 Active disease) Problem Obstructive sleep apnea G47.33 Active Problem Acquired hypothyroidism E03.9 Active Problem Overactive bladder N32.81 Active Problem Mild depression F32.0 Active Problem Elevated TSH R79.89 Active Problem Memory change R41.3 Active Problem Stress at home F43.9 Active Problem Allergic rhinitis J30.9 Active Problem Hyperlipidemia E78.5 Active Problem Obesity E66.9 Active Problem Hypertension I10 Active Problem Type 2 diabetes E11.9 Active Problem Other speech disturbance R47.89 Active Problem Chronic a-fib I48.2 Active Problem Abnormal mammogram R92.8 Active Medications Medication Code Code Instructions Start End Status Dosage System Date Date Magnesium NDC 0 Active not defined Ranitidine NDC 0 Active not defined Levothyroxine [facility] [address]-28 Active not defined Sodium Vitamin B-12 [facility] 259[address]677 Active not defined Metformin HCl [facility] 41028056477 500 MG Orally Active 1 tablet with Twice a day meals Sertraline HCl [facility] 37549807725 25 Orally Once Active 1 tablet a day Bactrim DS [facility] 74327965643 800-160 MG December Active 1 tablet Orally Twice a 2018 Vitamin E [facility] [address]83-77195 Active not defined Cranberry [facility] [address]06-[address]53 Active not defined Concentrate Rosuvastatin [facility] 27369796877 40 Active TAKE 1 TABLET Calcium BY MOUTH DAILY Cyanocobalamin [facility] [address]-04 1000 MCG/15ML Active 15 ml Orally Once a day Tylenol Arthritis ND 0 Active not defined Pain Valsartan [facility] 80938626433 160 MG Orally Active 1 tablet Once a day Bactrim DS [facility] 40620247649 800-160 MG January Active 1 tablet Orally Twice a , 2017 Crestor [facility] 36109815461 40 MG Active 1 EACH ONCE A DAY Multivitamin [facility] 80264-05579 Active not defined Probiotic [facility] 50631-[address]658 Active not defined Plavix [facility] 12404938921 75 MG Orally Active 1 tablet Once a day HydrALAZINE HCl [facility] 37244904877 100 MG Orally December 05, Active as directed Three times a 2017 day Toviaz [facility] 41682444595 8 MG Orally Active 1 tablet Once a day Verapamil HCl [facility] [address]-08 Active not defined Omeprazole [facility] 57956127266 40 Active TAKE 1 CAPSULE BY MOUTH EVERY DAY Fluconazole ND 33478725156 150 MG Orally Sep 15, Active 1 tablet one tab a week 2019 today and may repeat one tab in 1 week if no improvement Estradiol [facility] 43161025403 0.1 MG/GM January Active as directed Vaginal Two 22, times a Week 2018 Metformin HCl [facility] 89613416781 500 Active TAKE 1 TABLET BY MOUTH TWICE DAILY Omeprazole [facility] 66365616032 40 MG orally Active 1 EACH ONCE A daily in AM DAY Eliquis [facility] 69636978149 5 MG Orally Active 1 tablet twice a day Sertraline HCl [facility] 00228249875 25 MG Orally Active 1 tablet Once a day Carvedilol ND 38661169570 25 MG Orally Active as directed Vitamin D3 [facility] 10572957581 1000 UNIT Active 1 capsule Orally Once a day Amlodipine [facility] 93912033485 10 MG Orally Active 1 tablet Besylate Once a day Coreg [facility] 43140015147 25 MG Orally Active not defined HydrALAZINE HCl [facility] 56104349533 100 MG Orally Active 1 tablet with Three times a food day Irbesartan [facility] 00704205735 150 MG Orally Active 1 tablet Once a day Results No Known Results Summary Purpose eClinicalWorks Submission
--- OUTSIDE RECORDS SUMMARY | 2019-06-03 15:56 | XMS REPORT ---
:1935 [facility] [place] [address] Care Team Providers Name Role Phone LARISSA MENDENHALL Unavailable Unavailable DORY MEJIA Unavailable Unavailable Problems This patient has no known problems. Allergies, Adverse Reactions, Alerts This patient has no known allergies or adverse reactions. Medications This patient has no known medications. Results Test Description Test Time Test Comments Text Results Atomic Results Result Comments CT, CTANGIO 2019-05-01 10:58:00 Reason for FINAL REPORT PATIENT ID: BRAIN exam:->stroke [id number] CLINICAL HISTORY: TIA TECHNIQUE: Initially, noncontrast head CT images were performed. Contiguous contrast-enhanced axial images through the neck followed by axial images through the head with coronal and sagittal reformations to assess the arterial circulation. 3-D reconstructions were performed using a volume rendered technique separately on a workstation. This exam was performed according to the departmental dose optimization program which includes automated exposure control, adjustment of the mA and/or kV according to the patient size, and/or use of an iterative reconstruction technique. COMPARISON: Conventional catheter angiogram 11/22/2017, CTA 11/21/2017, MRI 11/20/2017 FINDINGS: There is no CT evidence of acute infarct or hemorrhage. There is no hydrocephalus or midline shift. The skull is intact. There is no evidence for a tanacross of Lawson proximal branch vessel occlusion. Mild multifocal intracranial atherosclerotic disease is unchanged. No aneurysms are seen. 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 Moderate right carotid siphon stenosis is also unchanged. Approximately 30-40% stenosis of the bilateral proximal internal carotid arteries by NASCET criteria is unchanged. A broad-based 5 mm protuberance again projects laterally from the proximal left cervical internal carotid artery compatible with a pseudoaneurysm, also unchanged. Mild to moderate bilateral vertebral artery origin and intradural segment stenoses are unchanged. There are dorsal spondylitic changes in the cervical spine. There are scattered subcentimeter lymph nodes in the neck. The visualized lung apices are clear. IMPRESSION: Since 2018, severe left internal carotid artery siphon stenosis, with near critical narrowing at the carotid terminus is unchanged. Moderate right carotid siphon stenosis is unchanged. 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 No hemodynamically significant stenosis of the proximal internal carotid arteries by NASCET criteria. Mild to moderate bilateral vertebral artery stenosis, unchanged. No evidence for a tanacross of Lawson proximal branch vessel occlusion. Signed: Alexa Koch MDReport Verified Date/Time: 05/01/2019 10:58:29 Reading Location: [facility] C013V Neuro Reading Room , CAROTID, 2019-05-01 10:58:00 Reason for exam:->eval FINAL REPORT PATIENT ID: ANGIO for TIA [id number] CLINICAL HISTORY: TIA TECHNIQUE: Initially, noncontrast head CT images were performed. Contiguous contrast-enhanced axial images through the neck followed by axial images through the head with coronal and sagittal reformations to assess the arterial circulation. 3-D reconstructions were performed using a volume rendered technique separately on a workstation. This exam was performed according to the departmental dose optimization program which includes automated exposure control, adjustment of the mA and/or kV according to the patient size, and/or use of an iterative reconstruction technique. COMPARISON: Conventional catheter angiogram 11/22/2017, CTA 11/21/2017, MRI 11/20/2017 FINDINGS: There is no CT evidence of acute infarct or hemorrhage. There is no hydrocephalus or midline shift. The skull is intact. There is no evidence for a tanacross of Lawson proximal branch vessel occlusion. Mild multifocal intracranial atherosclerotic disease is unchanged. No aneurysms are seen. 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 Moderate right carotid siphon stenosis is also unchanged. Approximately 30-40% stenosis of the bilateral proximal internal carotid arteries by NASCET criteria is unchanged. A broad-based 5 mm protuberance again projects laterally from the proximal left cervical internal carotid artery compatible with a pseudoaneurysm, also unchanged. Mild to moderate bilateral vertebral artery origin and intradural segment stenoses are unchanged. There are dorsal spondylitic changes in the cervical spine. There are scattered subcentimeter lymph nodes in the neck. The visualized lung apices are clear. IMPRESSION: Since 2018, severe left internal carotid artery siphon stenosis, with near critical narrowing at the carotid terminus is unchanged. Moderate right carotid siphon stenosis is unchanged. 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 No hemodynamically significant stenosis of the proximal internal carotid arteries by NASCET criteria. Mild to moderate bilateral vertebral artery stenosis, unchanged. No evidence for a tanacross of Lawson proximal branch vessel occlusion. Signed: Alexa Koch MDReport Verified Date/Time: 05/01/2019 10:58:29 Reading Location: [facility] C013V Neuro Reading Room C METABOLIC PANEL 2019-05-01 06:04:00 Test Item Value Reference Range Comments SODIUM (BEAKER) (test 133 meq/L 136-145 vhqf=011) POTASSIUM (BEAKER) (test 4.3 meq/L 3.5-5.1 jkgl=543) CHLORIDE (BEAKER) (test 104 meq/L 98-107 pzlk=193) CO2 (BEAKER) (test vpmo=942) 24 meq/L 22-29 BLOOD UREA NITROGEN (BEAKER) 8 mg/dL 7-21 (test fcfa=492) CREATININE (BEAKER) (test 0.63 mg/dL 0.57-1.25 fvou=593) GLUCOSE RANDOM (BEAKER) 105 mg/dL 70-105 (test bpbh=813) CALCIUM (BEAKER) (test 8.8 mg/dL 8.4-10.2 baql=045) EGFR (BEAKER) (test 90 mL/min/1.73 sq m ESTIMATED GFR IS NOT lmug=3544) ACCURATE CREATININE CLEARANCE IN PREDICTING GLOMERULAR FILTRATION RATE. ESTIMATED GFR IS NOT APPLICABLE FOR DIALYSIS PATIENTS. CBC (HEMOGRAM ONLY)2019-05-01 04:59:00 Test Item Value Reference Range Comments WHITE BLOOD CELL COUNT (BEAKER) (test pgzw=047) 7.4 K/ L 3.5-10.5 RED BLOOD CELL COUNT (BEAKER) (test cqlt=118) 3.56 M/ L 3.93-5.22 HEMOGLOBIN (BEAKER) (test nwne=034) 11.3 GM/DL 11.2-15.7 HEMATOCRIT (BEAKER) (test mcbv=242) 33.9 % 34.1-44.9 MEAN CORPUSCULAR VOLUME (BEAKER) (test obww=741) 95.2 fL 79.4-94.8 MEAN CORPUSCULAR HEMOGLOBIN (BEAKER) (test 31.7 pg 25.6-32.2 ndza=459) MEAN CORPUSCULAR HEMOGLOBIN CONC (BEAKER) (test 33.3 GM/DL 32.2-35.5 keto=650) RED CELL DISTRIBUTION WIDTH (BEAKER) (test 12.0 % 11.7-14.4 teut=334) PLATELET COUNT (BEAKER) (test jqfe=649) 170 K/CU MM 150-450 MEAN PLATELET VOLUME (BEAKER) (test mwaw=249) 9.6 fL 9.4-12.3 NUCLEATED RED BLOOD CELLS (BEAKER) (test 0 /100 WBC 0-0 ylcz=498) TROPONIN [id number] 20:18:00 Test Item Value Reference Range Comments TROPONIN I (BEAKER) (test srgu=792) < ng/mL 0.00-0.03 Troponin I (TnI) levels must be interpreted in the context of the presenting symptoms and the clinical findings. Elevated TnI levels indicate myocardial damage, but are not specific for ischemic heart disease. Elevated TnI levels are seen in patients with other cardiac conditions (including myocarditis and congestive heart failure), and slight TnI elevations occur in patients with other conditions, including sepsis, renal failure, acidosis, acute neurological disease, and persistent tachyarrhythmia.MR, BRAIN, WITHOUT [id number] 19 :07:00Reason for exam:->Ischemic Stroke EvaluationFINAL REPORT MR, BRAIN, WITHOUT CONTRAST INDICATION: Stroke, follow upIschemic Stroke Evaluation Technique: MRI of the brain utilizing axial T1, T2, FLAIR, GRE , DWI, sagittal T1;and postgadolinium axial, sagittal, and coronal T1-weighted images. COMPARISON: November 20, 2017 FINDINGS:Brain parenchyma is normal in morphology. Midline structures are normally developed. No restricted diffusion to suggest recent ischemic insult. No abnormal susceptibility. Remote bilateral cerebellar infarcts. Cerebellar tonsils are low-lying. Scattered T2/FLAIR hyperintense foci within the periventricular and subcortical white matter are nonspecific, however, statistically represent chronic microvascular ischemic changes. No hydrocephalus. Orbits are within normal limits. Prior bilateral lens surgery No obstructive paranasal sinus disease. Additional findings: None. IMPRESSION: No acute infarct Signed: Ashleigh Gee MDReport Verified Date/ Time: 04/30/2019 19:07:03 Reading Location: [address] Neuro Reading Room HEMOGLOBIN [id number] 10:33:00 Test Item Value Reference Range Comments HEMOGLOBIN A1C (BEAKER) (test tdij=859) 6.6 % 4.3-6.1 FastingVITAMIN [id number] 09:00:00 Test Item Value Reference Range Comments VITAMIN B12 (BEAKER) (test xzqr=500) 654 pg/mL 213-816 Add on please to morning labsAdd on to morning labsTSH/FREE T4 IF [id number] 09:00:00 Test Item Value Reference Range Comments THYROID STIMULATING HORMONE (BEAKER) (test 0.69 uIU/mL 0.35-4.94 yteo=099) Add on please to morning labsAdd on to morning labsBASIC METABOLIC [id number] 07:30:00 Test Item Value Reference Range Comments SODIUM (BEAKER) (test 131 meq/L 136-145 efro=841) POTASSIUM (BEAKER) (test 4.2 meq/L 3.5-5.1 Specimen slightly bmvh=653) hemolyzed CHLORIDE (BEAKER) (test 99 meq/L 98-107 rdin=957) CO2 (BEAKER) (test 23 meq/L 22-29 rnmx=400) BLOOD UREA NITROGEN 10 mg/dL 7-21 (BEAKER) (test kqmp=513) CREATININE (BEAKER) (test 0.67 mg/dL 0.57-1.25 Specimen slightly duty=869) hemolyzed GLUCOSE RANDOM (BEAKER) 115 mg/dL 70-105 (test xava=094) CALCIUM (BEAKER) (test 8.8 mg/dL 8.4-10.2 gwbv=918) EGFR (BEAKER) (test 84 mL/min/1.73 sq m ESTIMATED GFR IS NOT jcla=0996) ACCURATE CREATININE CLEARANCE IN PREDICTING GLOMERULAR FILTRATION RATE. ESTIMATED GFR IS NOT APPLICABLE FOR DIALYSIS PATIENTS. FastingLIPID [id number] 07:30:00 Test Item Value Reference Range Comments TRIGLYCERIDES (BEAKER) (test 57 mg/dL Specimen slightly hemolyzed wsgq=890) CHOLESTEROL (BEAKER) (test 83 mg/dL Specimen slightly hemolyzed lnja=842) HDL CHOLESTEROL (BEAKER) (test 37 mg/dL qtdo=938) LDL CHOLESTEROL CALCULATED 35 mg/dL (BEAKER) (test sujz=124) Triglyceride Reference Range: Low Risk <150 Borderline 150- 199 High Risk 200-499 Very High Risk >=500Cholesterol Reference Range: Low Risk <200 Borderline 200-239 High Risk > 240HDL Cholesterol Reference Range: Low Risk >=60 High Risk <40LDL Cholesterol Reference Range: Optimal <100 Near Optimal 100-129 Borderline 130-159 High 160-189 Very High >=190 FastingTROPONIN [id number] 07:28:00 Test Item Value Reference Range Comments TROPONIN I (BEAKER) (test ubyc=787) < ng/mL 0.00-0.03 Troponin I (TnI) levels must be interpreted in the context of the presenting symptoms and the clinical findings. Elevated TnI levels indicate myocardial damage, but are not specific for ischemic heart disease. Elevated TnI levels are seen in patients with other cardiac conditions (including myocarditis and congestive heart failure), and slight TnI elevations occur in patients with other conditions, including sepsis, renal failure, acidosis, acute neurological disease, and persistent tachyarrhythmia.FastingCBC W/PLT COUNT & AUTO [id number] 05:43:00 Test Item Value Reference Range Comments WHITE BLOOD CELL COUNT (BEAKER) (test ffeh=722) 7.9 K/ L 3.5-10.5 RED BLOOD CELL COUNT (BEAKER) (test ypzw=345) 3.40 M/ L 3.93-5.22 HEMOGLOBIN (BEAKER) (test nasc=803) 10.6 GM/DL 11.2-15.7 HEMATOCRIT (BEAKER) (test cdsb=728) 32.1 % 34.1-44.9 MEAN CORPUSCULAR VOLUME (BEAKER) (test okoo=595) 94.4 fL 79.4-94.8 MEAN CORPUSCULAR HEMOGLOBIN (BEAKER) (test 31.2 pg 25.6-32.2 bndm=097) MEAN CORPUSCULAR HEMOGLOBIN CONC (BEAKER) (test 33.0 GM/DL 32.2-35.5 fbef=239) RED CELL DISTRIBUTION WIDTH (BEAKER) (test 12.0 % 11.7-14.4 ygww=122) PLATELET COUNT (BEAKER) (test thum=764) 168 K/CU MM 150-450 MEAN PLATELET VOLUME (BEAKER) (test yabe=608) 9.6 fL 9.4-12.3 NUCLEATED RED BLOOD CELLS (BEAKER) (test 0 /100 WBC 0-0 ihyk=188) NEUTROPHILS RELATIVE PERCENT (BEAKER) (test 57 % drgo=773) LYMPHOCYTES RELATIVE PERCENT (BEAKER) (test 28 % pxyo=510) MONOCYTES RELATIVE PERCENT (BEAKER) (test 12 % qyxs=529) EOSINOPHILS RELATIVE PERCENT (BEAKER) (test 2 % bbum=252) BASOPHILS RELATIVE PERCENT (BEAKER) (test 0 % lbrd=219) NEUTROPHILS ABSOLUTE COUNT (BEAKER) (test 4.50 K/ L 1.56-6.13 sypc=573) LYMPHOCYTES ABSOLUTE COUNT (BEAKER) (test 2.23 K/ L 1.18-3.74 pnrk=467) MONOCYTES ABSOLUTE COUNT (BEAKER) (test 0.98 K/ L 0.24-0.36 imxn=575) EOSINOPHILS ABSOLUTE COUNT (BEAKER) (test 0.15 K/ L 0.04-0.36 pqeb=684) BASOPHILS ABSOLUTE COUNT (BEAKER) (test 0.03 K/ L 0.01-0.08 ltab=369) IMMATURE GRANULOCYTES-RELATIVE PERCENT (BEAKER) 0 % 0-1 (test ukia=5768) NV, ANGIOGRAM, [id number] 11:37:00Reason for exam:->TIAsFINAL REPORT November 22, 2017 CLINICAL HISTORY: 82 [...] guidance and strict sterile technique a 4 [place] femoral sheath was inserted into the right common femoral artery. Through the sheath a 4 [place] vertebral catheter was then advanced over the wire and the following procedure was performed: 1. Selective right common carotid arteriogram with biplane imaging over the common carotid bifurcation. 2. Selective right common carotidarteriogram with biplane imaging over the intracranial carotid circulation.3. Selective left common carotid arteriogram with biplane imaging over the common carotid bifurcation.4. Selective left commoncarotid arteriogram with biplane imaging over the intracranial [...] demonstrates a critical supraclinoid ICA stenosis of fmkecyzhvywwj54%. There is delayed antegrade flow. The venous system is within normal limits. The selective rightvertebral arteriogram demonstrates good antegrade flow without significant focal stenosis, aneurysm,vascular malformation, or dural arteriovenous fistula. The venous system is within normal limits. Noposterior communicating arteries are seen. The selective left vertebral arteriogram demonstrates good antegrade flow without significant focal stenosis, aneurysm, vascular malformation, or dural arteriovenous fistula. The venous system is within normal limits. No posterior commuting artery is seen. Atthe end of the procedure, the right femoral [...] MDReport Verified Date/Time: 11/22/2017 11:37:47 Reading Location: [facility] Y018 Neuro Angio Reading Room POCT-GLUCOSE [id number] 07:43:00 Test Item Value Reference Range Comments POC-GLUCOSE METER (BEAKER) 149 mg/dL 70-110 TESTED AT [facility] [address] [place] (test gact=5405) [facility] [address] [id number] 06:46:00 Test Item Value Reference Range Comments MAGNESIUM (BEAKER) (test xpen=704) 2.0 mg/dL 1.6-2.6 BASIC METABOLIC [id number] 06:46:00 Test Item Value Reference Range Comments SODIUM (BEAKER) (test 133 meq/L 136-145 mzwm=983) POTASSIUM (BEAKER) (test 4.4 meq/L 3.5-5.1 icjs=304) CHLORIDE (BEAKER) (test 99 meq/L 98-107 mxmz=031) CO2 (BEAKER) (test 25 meq/L 22-29 zmyr=902) BLOOD UREA NITROGEN 11 mg/dL 7-21 (BEAKER) (test nftw=527) CREATININE (BEAKER) (test 0.65 mg/dL 0.57-1.25 epie=197) GLUCOSE RANDOM (BEAKER) 162 mg/dL 70-105 (test lplc=837) CALCIUM (BEAKER) (test 9.5 mg/dL 8.4-10.2 hogt=417) EGFR (BEAKER) (test 87 mL/min/1.73 sq m ESTIMATED GFR IS NOT pvlj=7313) ACCURATE CREATININE CLEARANCE IN PREDICTING GLOMERULAR FILTRATION RATE. ESTIMATED GFR IS NOT APPLICABLE FOR DIALYSIS PATIENTS. PT/[id number] 06:33:00 Test Item Value Reference Range Comments PROTIME (BEAKER) (test fsvf=027) 15.5 seconds 11.7-14.7 INR (BEAKER) (test qnjh=039) 1.2 <=5.9 PARTIAL THROMBOPLASTIN TIME (BEAKER) (test 35.9 seconds 22.5-36.0 bcla=852) RECOMMENDED COUMADIN/WARFARIN INR THERAPY RANGESSTANDARD DOSE: 2.0 - 3.0 Includes: PROPHYLAXIS forvenous thrombosis, systemic embolization; TREATMENT for venous thrombosis and/or pulmonary embolus.HIGH RISK: Target INR is 2.5-3.5 for patients with mechanical heart valves.POCT-GLUCOSE [id number] 06:22:00 Test Item Value Reference Range Comments POC-GLUCOSE METER (BEAKER) 161 mg/dL 70-110 TESTED AT [address] (test vmpt=4441) [place] [address] POCT-GLUCOSE [id number] 02:08:00 Test Item Value Reference Range Comments POC-GLUCOSE METER (BEAKER) 182 mg/dL 70-110 TESTED AT [address] (test aphb=9372) [place] [address] POCT-GLUCOSE [id number] 19:30:00 Test Item Value Reference Range Comments POC-GLUCOSE METER (BEAKER) 146 mg/dL 70-110 TESTED AT [address] (test ysrn=2165) [place] [address] CT, CAROT[place], [id number] 14:54:00Please include aortaFINAL REPORT CT angiogram of [...] the left ICA terminus. There is also ounl-ru-tvicaimu multifocal narrowing of the right carotid siphon. [...] the right carotid siphon. Signed: Sylvia Mcdaniels MDReport Verified Date/Time: 11/21/2017 14:54:26 Reading Location: [facility] Radiology Reading Room H MEJIA [id number] 14:54:00FINAL REPORT CT angiogram of the upper [...] the left ICA terminus. There is also tthg-wp-npfabtsc multifocal narrowing of the right carotid siphon. [...] Mcdaniels Verified Date/Time: 11/21/2017 14:54:26 Reading Location: [facility] Radiology Reading Room POCT-GLUCOSE [id number] 11:50:00 Test Item Value Reference Range Comments POC-GLUCOSE METER (BEAKER) 153 mg/dL 70-110 TESTED AT [place] [id number] [place] (test fixp=7251) [facility] [address] POCT-GLUCOSE [id number] 08:08:00 Test Item Value Reference Range Comments POC-GLUCOSE METER (BEAKER) 125 mg/dL 70-110 TESTED AT [address] (test woum=0269) [place] [address] [id number] 06:43:00 Test Item Value Reference Range Comments MAGNESIUM (BEAKER) (test hzoi=085) 2.1 mg/dL 1.6-2.6 BASIC METABOLIC [id number] 06:43:00 Test Item Value Reference Range Comments SODIUM (BEAKER) (test 136 meq/L 136-145 zrtq=913) POTASSIUM (BEAKER) (test 4.0 meq/L 3.5-5.1 inie=468) CHLORIDE (BEAKER) (test 101 meq/L 98-107 vmoo=069) CO2 (BEAKER) (test 27 meq/L 22-29 jzlr=668) BLOOD UREA NITROGEN 12 mg/dL 7-21 (BEAKER) (test nbzh=521) CREATININE (BEAKER) (test 0.68 mg/dL 0.57-1.25 haua=369) GLUCOSE RANDOM (BEAKER) 122 mg/dL 70-105 (test nkkv=671) CALCIUM (BEAKER) (test 9.5 mg/dL 8.4-10.2 gcmf=928) EGFR (BEAKER) (test 83 mL/min/1.73 sq m ESTIMATED GFR IS NOT syzk=1617) ACCURATE CREATININE CLEARANCE IN PREDICTING GLOMERULAR FILTRATION RATE. ESTIMATED GFR IS NOT APPLICABLE FOR DIALYSIS PATIENTS. TSH/FREE T4 IF [id number] 22:12:00 Test Item Value Reference Range Comments THYROID STIMULATING HORMONE (BEAKER) (test 4.66 uIU/mL 0.35-4.94 lceg=875) [id number] 21:54:00 Test Item Value Reference Range Comments MAGNESIUM (BEAKER) (test bcow=052) 2.0 mg/dL 1.6-2.6 BASIC METABOLIC [id number] 21:54:00 Test Item Value Reference Range Comments SODIUM (BEAKER) (test 134 meq/L 136-145 fvld=921) POTASSIUM (BEAKER) (test 4.1 meq/L 3.5-5.1 rksi=096) CHLORIDE (BEAKER) (test 101 meq/L 98-107 wotb=535) CO2 (BEAKER) (test 24 meq/L 22-29 shrf=839) BLOOD UREA NITROGEN 11 mg/dL 7-21 (BEAKER) (test hxsw=670) CREATININE (BEAKER) (test 0.65 mg/dL 0.57-1.25 rrny=400) GLUCOSE RANDOM (BEAKER) 126 mg/dL 70-105 (test bvbz=630) CALCIUM (BEAKER) (test 9.5 mg/dL 8.4-10.2 dnqs=256) EGFR (BEAKER) (test 87 mL/min/1.73 sq m ESTIMATED GFR IS NOT uyye=7455) ACCURATE CREATININE CLEARANCE IN PREDICTING GLOMERULAR FILTRATION RATE. ESTIMATED GFR IS NOT APPLICABLE FOR DIALYSIS PATIENTS. LIPID [id number] 21:54:00 Test Item Value Reference Range Comments TRIGLYCERIDES (BEAKER) (test zamk=910) 70 mg/dL CHOLESTEROL (BEAKER) (test nvrl=603) 101 mg/dL HDL CHOLESTEROL (BEAKER) (test atbe=519) 39 mg/dL LDL CHOLESTEROL CALCULATED (BEAKER) (test 48 mg/dL wvmb=006) Triglyceride Reference Range: Low Risk <150 Borderline 150- 199 High Risk 200-499 Very High Risk >=500Cholesterol Reference Range: Low Risk <200 Borderline 200-239 High Risk > 240HDL Cholesterol Reference Range: Low Risk >=60 High Risk <40LDL Cholesterol Reference Range: Optimal <100 Near Optimal 100-129 Borderline 130-159 High 160-189 Very High >=190POCT-GLUCOSE [id number] 21:35:00 Test Item Value Reference Range Comments POC-GLUCOSE METER (BEAKER) 128 mg/dL 70-110 TESTED AT [address] (test zxxk=6979) [place] [address] POCT-GLUCOSE [id number] 17:55:00 Test Item Value Reference Range Comments POC-GLUCOSE METER (BEAKER) 113 mg/dL 70-110 TESTED AT [address] (test wvpj=2115) [place] [address] POCT-GLUCOSE [id number] 12:32:00 Test Item Value Reference Range Comments POC-GLUCOSE METER (BEAKER) 120 mg/dL 70-110 TESTED AT [address] (test awso=3409) [place] [address] MR, MRA, BRAIN, WITHOUT [id number] 11:33:00Reason for exam:-> Ischemic Stroke EvaluationFINAL REPORT MRA Head and Neck CLINICAL HISTORY: CVA TECHNIQUE: MRA of the head utilizing 3-D wiup-ey-wvmwzk technique, with 3-D reconstructions. MRA of the [...] There is no other evidence for a tanacross of Lawson proximal branch vessel occlusion. There [...] Signed: Alexa Koch MDReport Verified Date/Time: 11/20/2017 11:33:14 Reading Location : [facility] C013 Neuro Reading Room MR, MRA, NECK, WITHOUT IV [id number] 11:33: 00Reason for exam:->Ischemic Stroke EvaluationFINAL REPORT MRA Head and Neck CLINICAL HISTORY: CVA TECHNIQUE: MRA of the head utilizing 3-D yvgr-bu-kswflr technique, with 3-D reconstructions. MRA of the neck utilizing 2-D and 3-D indt-xu-nfrxgt technique, with 3-D reconstructions. COMPARISON: None FINDINGS: [...] There is no other evidence for a tanacross of Lawson proximal branch vessel occlusion. There [...] internal carotid artery siphon. Signed: Alexa Koch Verified Date/Time: 11/20/2017 11 :33:14 Reading Location: [address] Neuro Reading Room MR, BRAIN, WITHOUT [id number] 11:05:00Reason for exam:->Ischemic Stroke EvaluationFINAL REPORT MRI [...] Clinical correlation is requested. Signed: Alexa Koch Verified Date/Time: 11/20/2017 11:05:05 Reading Location: [address] Neuro Reading Room HEMOGLOBIN [id number] 09:08:00 Test Item Value Reference Range Comments HEMOGLOBIN A1C (BEAKER) (test afjm=004) 6.1 % 4.3-6.1 POCT-GLUCOSE [id number] 08:27:00 Test Item Value Reference Range Comments POC-GLUCOSE METER (BEAKER) 125 mg/dL 70-110 TESTED AT [address] (test uwqj=2991) [facility] [address] TSH/FREE T4 IF [id number] 07:47:00 Test Item Value Reference Range Comments THYROID STIMULATING HORMONE (BEAKER) (test 5.97 uIU/mL 0.35-4.94 adwh=247) VITAMIN [id number] 07:44:00 Test Item Value Reference Range Comments VITAMIN B12 (BEAKER) (test wtzx=792) 857 pg/mL 213-816 CBC W/PLT COUNT & AUTO [id number] 06:47:00 Test Item Value Reference Range Comments WHITE BLOOD CELL COUNT (BEAKER) (test brso=307) 8.3 K/ L 3.5-10.5 RED BLOOD CELL COUNT (BEAKER) (test jbva=069) 4.11 M/ L 3.93-5.22 HEMOGLOBIN (BEAKER) (test eavs=732) 13.4 GM/DL 11.2-15.7 HEMATOCRIT (BEAKER) (test kkdj=991) 39.7 % 34.1-44.9 MEAN CORPUSCULAR VOLUME (BEAKER) (test jxfs=041) 96.6 fL 79.4-94.8 MEAN CORPUSCULAR HEMOGLOBIN (BEAKER) (test 32.6 pg 25.6-32.2 qxcg=012) MEAN CORPUSCULAR HEMOGLOBIN CONC (BEAKER) (test 33.8 GM/DL 32.2-35.5 haxv=329) RED CELL DISTRIBUTION WIDTH (BEAKER) (test 12.1 % 11.7-14.4 necq=639) PLATELET COUNT (BEAKER) (test mquf=767) 209 K/CU MM 150-450 MEAN PLATELET VOLUME (BEAKER) (test sozx=001) 9.7 fL 9.4-12.3 NUCLEATED RED BLOOD CELLS (BEAKER) (test 0 /100 WBC 0-0 immb=082) NEUTROPHILS RELATIVE PERCENT (BEAKER) (test 49 % fpjx=243) LYMPHOCYTES RELATIVE PERCENT (BEAKER) (test 35 % kwac=171) MONOCYTES RELATIVE PERCENT (BEAKER) (test 12 % kiiy=037) EOSINOPHILS RELATIVE PERCENT (BEAKER) (test 4 % zgqi=162) BASOPHILS RELATIVE PERCENT (BEAKER) (test 1 % wvfm=731) NEUTROPHILS ABSOLUTE COUNT (BEAKER) (test 4.02 K/ L 1.56-6.13 hzam=798) LYMPHOCYTES ABSOLUTE COUNT (BEAKER) (test 2.89 K/ L 1.18-3.74 inmp=778) MONOCYTES ABSOLUTE COUNT (BEAKER) (test 0.95 K/ L 0.24-0.36 yjpw=420) EOSINOPHILS ABSOLUTE COUNT (BEAKER) (test 0.35 K/ L 0.04-0.36 sowu=841) BASOPHILS ABSOLUTE COUNT (BEAKER) (test 0.04 K/ L 0.01-0.08 ogjs=796) IMMATURE GRANULOCYTES-RELATIVE PERCENT (BEAKER) 0 % 0-1 (test swze=1892) POCT-GLUCOSE [id number] 22:09:00 Test Item Value Reference Range Comments POC-GLUCOSE METER (BEAKER) 130 mg/dL 70-110 TESTED AT [facility] [address] [place] (test vxdi=6933) [facility] [address]
[2020-05-24] MEDS ORDERED: levETIRAcetam 500 MG TAB PO SCH (09:00)
== END 2019-05-24 14:19 | disposition home or self-care (01) ==
LOC: ER 04:41 → ERHOLD 08:13 → 2ND 09:37
PROVIDERS: ADMIT Family Medicine; ATTEND Family Medicine
DX: G40.209 Localization-related (focal) (partial) symptomatic epilepsy and epileptic syndromes with complex partial seizures, not intractable, without status epilepticus (principal); G93.41 Metabolic encephalopathy; I10 Essential (primary) hypertension; E87.1 Hypo-osmolality and hyponatremia; I25.10 Atherosclerotic heart disease of native coronary artery without angina pectoris; E78.2 Mixed hyperlipidemia; F41.8 Other specified anxiety disorders; E11.65 Type 2 diabetes mellitus with hyperglycemia; I48.20 Chronic atrial fibrillation, unspecified; Z86.711 Personal history of pulmonary embolism; Z86.73 Personal history of transient ischemic attack (TIA), and cerebral infarction without residual deficits
CPT/HCPCS: 95816; 93005; 93306; 85025 ×2; 80048; 36415 ×2; 82150; 83735; 82550; 85610; 80061; 82947 ×5; 80076; 85730; 81003; 84484; 82553; 83690; 80053; 70450; 71045; 70553; 70544; 70549; 92610; 97112; 97116; 97161; 94760 ×3; 96374; 99285; A9577; J1953; J7030 ×2; J2405; G0378 ×3

== ENCOUNTER 2019-06-20 18:07 | Emergency (ER) | payer OTHER ==
--- OUTSIDE RECORDS SUMMARY | 2019-06-20 18:10 | XMS REPORT ---
[...] Condition Status Assessment Weakness R53.1 Active Assessment Hyponatremia E87.1 Active Assessment Seizure disorder G40.909 Active Assessment Hospital discharge follow-up Z09 Active Problem Recurrent urinary tract infection N39.0 Active Problem Chronic a-fib I48.2 Active Problem History of TIA (transient ischemic Z86.73 Active attack) Problem Hospital discharge follow-up Z09 Active Problem Overactive bladder N32.81 Active Problem Atherosclerosis I70.90 Active Problem Mild depression F32.0 Active Problem Chronic fatigue R53.82 Active Problem Acquired hypothyroidism E03.9 Active Problem Mixed stress and urge urinary N39.46 Active incontinence Problem Obesity E66.9 Active Problem GERD (gastroesophageal reflux K21.9 Active disease) Problem Seizure disorder G40.909 Active Problem Obstructive sleep apnea G47.33 Active Problem Stress at home F43.9 Active Problem Elevated TSH R79.89 Active Problem Other chronic pain G89.29 Active Problem Memory change R41.3 Active Problem Hyperlipidemia E78.5 Active Problem Abnormal mammogram R92.8 Active Problem Hypertension I10 Active Problem Allergic rhinitis J30.9 Active Problem Other speech disturbance R47.89 Active Problem Stenosis of left carotid artery I65.22 Active Problem Type 2 diabetes E11.9 Active Problem 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 Active Medications Medication Code Code Instructions Start End Status Dosage System Date Date Toviaz [facility] 69594799862 8 MG Orally Active 1 tablet Once a day Valsartan [facility] 04126584162 160 MG Orally Active 1 tablet Once a day Tylenol Arthritis NDC 0 Active not defined Pain Metformin HCl [facility] 30418059812 500 MG Orally Active 1 tablet with Twice a day meals Estradiol [facility] 57123344120 0.1 MG/GM January Active as directed Vaginal Two 22, times a Week 2018 Probiotic [facility] 55509-11451 Active not defined Cranberry [facility] 437[address]-81578 Active not defined Concentrate Bactrim DS [place] 84472248164 800-160 MG December Active 1 tablet Orally Twice a 2018 Cyanocobalamin [facility] [address]-12 1000 MCG/15ML Active 15 ml Orally Once a day HydrALAZINE HCl [facility] 34559235606 100 MG Orally December 05, Active as directed Three times a 2017 day Eliquis [facility] 03826057401 5 MG Orally Active 1 tablet twice a day Omeprazole [facility] 76055131890 40 Active TAKE 1 CAPSULE BY MOUTH EVERY DAY Levothyroxine [facility] [address]-63 Active not defined Sodium Verapamil HCl [facility] [address]-22 Active not defined Irbesartan [facility] 77791911764 150 MG Orally Active 1 tablet Once a day Sertraline HCl [facility] 53789545952 25 Orally Once Active 1 tablet a day Bactrim DS [facility] 88440914137 800-160 MG January Active 1 tablet Orally Twice a 2017 Multivitamin [facility] 31710-58002 Active not defined Sertraline HCl [facility] 72814323719 25 MG Orally Active 1 tablet Once a day Metformin HCl [facility] 01405057289 500 Active TAKE 1 TABLET BY MOUTH TWICE DAILY Vitamin B-12 [facility] 33767-83794 Active not defined Levetiracetam [facility] 66461624597 250 MG Orally Active 1 tablet every 12 hrs Amlodipine [facility] 66649556363 10 MG Orally Active 1 tablet Besylate Once a day Magnesium ND 0 Active not defined HydrALAZINE HCl [facility] 43649015615 100 MG Orally Active 1 tablet with Three times a food day Carvedilol [facility] 18569877481 25 MG Orally Active as directed Vitamin E [facility] 79[address]252 Active not defined Coreg [facility] 53144588288 25 MG Orally Active not defined Vitamin D3 [facility] 01611209517 1000 UNIT Active 1 capsule Orally Once a day Ranitidine [facility] 15382119081 Active not defined Rosuvastatin [facility] 96261717512 40 Active TAKE 1 TABLET Calcium BY MOUTH DAILY Plavix [facility] 37759115530 75 MG Orally Active 1 tablet Once a day Omeprazole [facility] 71822172249 40 MG orally Active 1 EACH ONCE A daily in AM DAY Fluconazole [facility] 05269360655 150 MG Orally Sep 15, Active 1 tablet one tab a week 2019 today and may repeat one tab in 1 week if no improvement Crestor [facility] 58723110522 40 MG Active 1 EACH ONCE A DAY Results No Known Results Summary Purpose eClinicalWorks Submission
--- OUTSIDE RECORDS SUMMARY | 2019-06-20 18:10 | XMS REPORT ---
:1935 Author Organization [facility] Address [facility] [place] [address] Care Team Providers Name Role Phone LARISSA [...] for FINAL REPORT PATIENT ID: BRAIN exam:->stroke [id number] CLINICAL HISTORY: TIA TECHNIQUE: Initially, noncontrast head [...] intact. There is no evidence for a [place] proximal branch vessel occlusion. Mild [...] artery stenosis, unchanged. No evidence for a [place] proximal branch vessel occlusion. Signed: Alexa Koch MDReport Verified Date/Time: 05/01/2019 10:58:29 Reading Location: [facility] C013V Neuro Reading Room , [place], 2019-05-01 10:58:00 Reason for exam:->eval FINAL REPORT PATIENT ID: ANGIO for TIA [id number] CLINICAL HISTORY: TIA TECHNIQUE: Initially, noncontrast head [...] intact. There is no evidence for a [place] proximal branch vessel occlusion. Mild [...] artery stenosis, unchanged. No evidence for a [place] proximal branch vessel occlusion. Signed: Alexa Koch MDReport Verified Date/Time: 05/01/2019 10:58:29 Reading Location: [facility] C013V Neuro Reading Room C METABOLIC PANEL 2019-05-01 06:04:00 Test Item Value Reference Range Comments SODIUM (BEAKER) (test 133 meq/L 136-145 igfa=372) POTASSIUM (BEAKER) (test 4.3 meq/L 3.5-5.1 hcux=448) CHLORIDE (BEAKER) (test 104 meq/L 98-107 tvqg=079) CO2 (BEAKER) (test uwyk=940) 24 meq/L 22-29 BLOOD UREA NITROGEN (BEAKER) 8 mg/dL 7-21 (test siwt=862) CREATININE (BEAKER) (test 0.63 mg/dL 0.57-1.25 qede=492) GLUCOSE RANDOM (BEAKER) 105 mg/dL 70-105 (test ozhh=412) CALCIUM (BEAKER) (test 8.8 mg/dL 8.4-10.2 vuhd=081) EGFR (BEAKER) (test 90 mL/min/1.73 sq m ESTIMATED GFR IS NOT qnhl=2915) ACCURATE CREATININE CLEARANCE IN PREDICTING GLOMERULAR FILTRATION RATE. ESTIMATED GFR IS NOT APPLICABLE FOR DIALYSIS PATIENTS. CBC (HEMOGRAM ONLY)2019-05-01 04:59:00 Test Item Value Reference Range Comments WHITE BLOOD CELL COUNT (BEAKER) (test imfm=145) 7.4 K/ L 3.5-10.5 RED BLOOD CELL COUNT (BEAKER) (test xxqn=904) 3.56 M/ L 3.93-5.22 HEMOGLOBIN (BEAKER) (test kcek=172) 11.3 GM/DL 11.2-15.7 HEMATOCRIT (BEAKER) (test vwbx=550) 33.9 % 34.1-44.9 MEAN CORPUSCULAR VOLUME (BEAKER) (test ixfg=135) 95.2 fL 79.4-94.8 MEAN CORPUSCULAR HEMOGLOBIN (BEAKER) (test 31.7 pg 25.6-32.2 msip=609) MEAN CORPUSCULAR HEMOGLOBIN CONC (BEAKER) (test 33.3 GM/DL 32.2-35.5 uyeu=955) RED CELL DISTRIBUTION WIDTH (BEAKER) (test 12.0 % 11.7-14.4 ijwq=983) PLATELET COUNT (BEAKER) (test wldz=047) 170 K/CU MM 150-450 MEAN PLATELET VOLUME (BEAKER) (test numa=822) 9.6 fL 9.4-12.3 NUCLEATED RED BLOOD CELLS (BEAKER) (test 0 /100 WBC 0-0 rtea=570) TROPONIN [id number] 20:18:00 Test Item Value Reference Range Comments TROPONIN I (BEAKER) (test piam=224) < ng/mL 0.00-0.03 Troponin I (TnI) levels [...] neurological disease, and persistent tachyarrhythmia.MR, BRAIN, WITHOUT [id number] 19 :07:00Reason for exam:->Ischemic Stroke EvaluationFINAL REPORT [...] Verified Date/ Time: 04/30/2019 19:07:03 Reading Location: [address] Neuro Reading Room HEMOGLOBIN [id number] 10:33:00 Test Item Value Reference Range Comments HEMOGLOBIN A1C (BEAKER) (test votd=007) 6.6 % 4.3-6.1 FastingVITAMIN [id number] 09:00:00 Test Item Value Reference Range Comments VITAMIN B12 (BEAKER) (test tkxu=001) 654 pg/mL 213-816 Add on please to morning labsAdd on to morning labsTSH/FREE T4 IF [id number] 09:00:00 Test Item Value Reference Range Comments THYROID STIMULATING HORMONE (BEAKER) (test 0.69 uIU/mL 0.35-4.94 euog=982) Add on please to morning labsAdd on to morning labsBASIC METABOLIC [id number] 07:30:00 Test Item Value Reference Range Comments SODIUM (BEAKER) (test 131 meq/L 136-145 uaqv=346) POTASSIUM (BEAKER) (test 4.2 meq/L 3.5-5.1 Specimen slightly lsdv=680) hemolyzed CHLORIDE (BEAKER) (test 99 meq/L 98-107 pdrc=647) CO2 (BEAKER) (test 23 meq/L 22-29 ikop=739) BLOOD UREA NITROGEN 10 mg/dL 7-21 (BEAKER) (test phfq=017) CREATININE (BEAKER) (test 0.67 mg/dL 0.57-1.25 Specimen slightly iuip=302) hemolyzed GLUCOSE RANDOM (BEAKER) 115 mg/dL 70-105 (test kdme=707) CALCIUM (BEAKER) (test 8.8 mg/dL 8.4-10.2 nruf=672) EGFR (BEAKER) (test 84 mL/min/1.73 sq m ESTIMATED GFR IS NOT tpnq=0969) ACCURATE CREATININE CLEARANCE IN PREDICTING GLOMERULAR FILTRATION RATE. ESTIMATED GFR IS NOT APPLICABLE FOR DIALYSIS PATIENTS. FastingLIPID [id number] 07:30:00 Test Item Value Reference Range Comments TRIGLYCERIDES (BEAKER) (test 57 mg/dL Specimen slightly hemolyzed nqlr=608) CHOLESTEROL (BEAKER) (test 83 mg/dL Specimen slightly hemolyzed cseq=213) HDL CHOLESTEROL (BEAKER) (test 37 mg/dL fsot=322) LDL CHOLESTEROL CALCULATED 35 mg/dL (BEAKER) (test iphy=464) Triglyceride Reference Range: Low Risk <150 Borderline 150- 199 High Risk 200-499 Very High Risk >=500Cholesterol Reference Range: Low Risk <200 Borderline 200-239 High Risk > 240HDL Cholesterol Reference Range: Low Risk >=60 High Risk <40LDL Cholesterol Reference Range: Optimal <100 Near Optimal 100-129 Borderline 130-159 High 160-189 Very High >=190 FastingTROPONIN [id number] 07:28:00 Test Item Value Reference Range Comments TROPONIN I (BEAKER) (test uxmv=325) < ng/mL 0.00-0.03 Troponin I (TnI) levels [...] and persistent tachyarrhythmia.FastingCBC W/PLT COUNT & AUTO [id number] 05:43:00 Test Item Value Reference Range Comments WHITE BLOOD CELL COUNT (BEAKER) (test gsch=876) 7.9 K/ L 3.5-10.5 RED BLOOD CELL COUNT (BEAKER) (test hbss=369) 3.40 M/ L 3.93-5.22 HEMOGLOBIN (BEAKER) (test pdny=545) 10.6 GM/DL 11.2-15.7 HEMATOCRIT (BEAKER) (test ylkj=439) 32.1 % 34.1-44.9 MEAN CORPUSCULAR VOLUME (BEAKER) (test kpay=310) 94.4 fL 79.4-94.8 MEAN CORPUSCULAR HEMOGLOBIN (BEAKER) (test 31.2 pg 25.6-32.2 caqf=803) MEAN CORPUSCULAR HEMOGLOBIN CONC (BEAKER) (test 33.0 GM/DL 32.2-35.5 fegb=601) RED CELL DISTRIBUTION WIDTH (BEAKER) (test 12.0 % 11.7-14.4 xgsu=352) PLATELET COUNT (BEAKER) (test whrs=698) 168 K/CU MM 150-450 MEAN PLATELET VOLUME (BEAKER) (test avmd=049) 9.6 fL 9.4-12.3 NUCLEATED RED BLOOD CELLS (BEAKER) (test 0 /100 WBC 0-0 syhg=997) NEUTROPHILS RELATIVE PERCENT (BEAKER) (test 57 % mkwb=541) LYMPHOCYTES RELATIVE PERCENT (BEAKER) (test 28 % rzbd=855) MONOCYTES RELATIVE PERCENT (BEAKER) (test 12 % otrx=728) EOSINOPHILS RELATIVE PERCENT (BEAKER) (test 2 % ophx=027) BASOPHILS RELATIVE PERCENT (BEAKER) (test 0 % devp=098) NEUTROPHILS ABSOLUTE COUNT (BEAKER) (test 4.50 K/ L 1.56-6.13 gfxm=588) LYMPHOCYTES ABSOLUTE COUNT (BEAKER) (test 2.23 K/ L 1.18-3.74 edjx=830) MONOCYTES ABSOLUTE COUNT (BEAKER) (test 0.98 K/ L 0.24-0.36 smwv=303) EOSINOPHILS ABSOLUTE COUNT (BEAKER) (test 0.15 K/ L 0.04-0.36 xgqq=435) BASOPHILS ABSOLUTE COUNT (BEAKER) (test 0.03 K/ L 0.01-0.08 bgon=692) IMMATURE GRANULOCYTES-RELATIVE PERCENT (BEAKER) 0 % 0-1 (test cunp=6038) NV, ANGIOGRAM, [id number] 11:37:00Reason for exam:->TIAsFINAL REPORT November 22, 2017 [...] guidance and strict sterile technique a 4 [place] femoral sheath was inserted into the right common femoral artery. Through the sheath a 4 [place] vertebral catheter was then advanced over the [...] demonstrates a critical supraclinoid ICA stenosis of mmpotephqyanq07%. There is delayed antegrade flow. The venous [...] MDReport Verified Date/Time: 11/22/2017 11:37:47 Reading Location: [facility] Y018 Neuro Angio Reading Room POCT-GLUCOSE [id number] 07:43:00 Test Item Value Reference Range Comments POC-GLUCOSE METER (BEAKER) 149 mg/dL 70-110 TESTED AT [facility] [address] [facility] (test voki=8291) [facility] [address] [id number] 06:46:00 Test Item Value Reference Range Comments MAGNESIUM (BEAKER) (test ifzf=734) 2.0 mg/dL 1.6-2.6 BASIC METABOLIC [id number] 06:46:00 Test Item Value Reference Range Comments SODIUM (BEAKER) (test 133 meq/L 136-145 kyoj=311) POTASSIUM (BEAKER) (test 4.4 meq/L 3.5-5.1 hote=764) CHLORIDE (BEAKER) (test 99 meq/L 98-107 kgjb=533) CO2 (BEAKER) (test 25 meq/L 22-29 bbyk=823) BLOOD UREA NITROGEN 11 mg/dL 7-21 (BEAKER) (test cmyl=671) CREATININE (BEAKER) (test 0.65 mg/dL 0.57-1.25 ywfz=570) GLUCOSE RANDOM (BEAKER) 162 mg/dL 70-105 (test zoam=856) CALCIUM (BEAKER) (test 9.5 mg/dL 8.4-10.2 haex=822) EGFR (BEAKER) (test 87 mL/min/1.73 sq m ESTIMATED GFR IS NOT mqqu=2941) ACCURATE CREATININE CLEARANCE IN PREDICTING GLOMERULAR FILTRATION RATE. ESTIMATED GFR IS NOT APPLICABLE FOR DIALYSIS PATIENTS. [id number] 06:33:00 Test Item Value Reference Range Comments PROTIME (BEAKER) (test rgip=817) 15.5 seconds 11.7-14.7 INR (BEAKER) (test sqkf=053) 1.2 <=5.9 PARTIAL THROMBOPLASTIN TIME (BEAKER) (test 35.9 seconds 22.5-36.0 wbhw=687) RECOMMENDED COUMADIN/WARFARIN INR THERAPY RANGESSTANDARD DOSE: 2.0 - 3.0 Includes: PROPHYLAXIS forvenous thrombosis, systemic embolization; TREATMENT for venous thrombosis and/or pulmonary embolus.HIGH RISK: Target INR is 2.5-3.5 for patients with mechanical heart valves.POCT-GLUCOSE [id number] 06:22:00 Test Item Value Reference Range Comments POC-GLUCOSE METER (BEAKER) 161 mg/dL 70-110 TESTED AT [address] (test oirv=3462) [place] [address] POCT-GLUCOSE [id number] 02:08:00 Test Item Value Reference Range Comments POC-GLUCOSE METER (BEAKER) 182 mg/dL 70-110 TESTED AT [address] (test idmi=8366) [place] [address] POCT-GLUCOSE [id number] 19:30:00 Test Item Value Reference Range Comments POC-GLUCOSE METER (BEAKER) 146 mg/dL 70-110 TESTED AT [address] (test jirz=7156) [place] [address] CT, [place]OT[place], [id number] 14:54:00Please include aortaFINAL REPORT CT angiogram of [...] the left ICA terminus. There is also avuk-oq-fgpgdmzt multifocal narrowing of the right carotid siphon. [...] MDReport Verified Date/Time: 11/21/2017 14:54:26 Reading Location: [facility] Radiology Reading Room H MEJIA [id number] 14:54:00FINAL REPORT CT angiogram of the upper [...] the left ICA terminus. There is also qyrr-gu-aknouihy multifocal narrowing of the right carotid siphon. [...] Mcdaniels Verified Date/Time: 11/21/2017 14:54:26 Reading Location: [facility] Radiology Reading Room POCT-GLUCOSE [id number] 11:50:00 Test Item Value Reference Range Comments POC-GLUCOSE METER (BEAKER) 153 mg/dL 70-110 TESTED AT [place] [id number] [facility] (test eugz=4151) [facility] [address] POCT-GLUCOSE [id number] 08:08:00 Test Item Value Reference Range Comments POC-GLUCOSE METER (BEAKER) 125 mg/dL 70-110 TESTED AT [address] (test ekxx=6308) [place] [address] [id number] 06:43:00 Test Item Value Reference Range Comments MAGNESIUM (BEAKER) (test rgdu=495) 2.1 mg/dL 1.6-2.6 BASIC METABOLIC [id number] 06:43:00 Test Item Value Reference Range Comments SODIUM (BEAKER) (test 136 meq/L 136-145 xvir=402) POTASSIUM (BEAKER) (test 4.0 meq/L 3.5-5.1 sqdc=668) CHLORIDE (BEAKER) (test 101 meq/L 98-107 przf=031) CO2 (BEAKER) (test 27 meq/L 22-29 kkuw=007) BLOOD UREA NITROGEN 12 mg/dL 7-21 (BEAKER) (test pknq=058) CREATININE (BEAKER) (test 0.68 mg/dL 0.57-1.25 ytol=935) GLUCOSE RANDOM (BEAKER) 122 mg/dL 70-105 (test yzvi=847) CALCIUM (BEAKER) (test 9.5 mg/dL 8.4-10.2 lgoq=803) EGFR (BEAKER) (test 83 mL/min/1.73 sq m ESTIMATED GFR IS NOT ddxm=9451) ACCURATE CREATININE CLEARANCE IN PREDICTING GLOMERULAR FILTRATION RATE. ESTIMATED GFR IS NOT APPLICABLE FOR DIALYSIS PATIENTS. TSH/FREE T4 IF [id number] 22:12:00 Test Item Value Reference Range Comments THYROID STIMULATING HORMONE (BEAKER) (test 4.66 uIU/mL 0.35-4.94 wpzu=235) [id number] 21:54:00 Test Item Value Reference Range Comments MAGNESIUM (BEAKER) (test qlyo=281) 2.0 mg/dL 1.6-2.6 BASIC METABOLIC [id number] 21:54:00 Test Item Value Reference Range Comments SODIUM (BEAKER) (test 134 meq/L 136-145 ajir=498) POTASSIUM (BEAKER) (test 4.1 meq/L 3.5-5.1 yfwe=646) CHLORIDE (BEAKER) (test 101 meq/L 98-107 mtbn=801) CO2 (BEAKER) (test 24 meq/L 22-29 zhhe=329) BLOOD UREA NITROGEN 11 mg/dL 7-21 (BEAKER) (test cssf=282) CREATININE (BEAKER) (test 0.65 mg/dL 0.57-1.25 fdld=765) GLUCOSE RANDOM (BEAKER) 126 mg/dL 70-105 (test dvpw=278) CALCIUM (BEAKER) (test 9.5 mg/dL 8.4-10.2 smat=576) EGFR (BEAKER) (test 87 mL/min/1.73 sq m ESTIMATED GFR IS NOT jzjt=9622) ACCURATE CREATININE CLEARANCE IN PREDICTING GLOMERULAR FILTRATION RATE. ESTIMATED GFR IS NOT APPLICABLE FOR DIALYSIS PATIENTS. LIPID [id number] 21:54:00 Test Item Value Reference Range Comments TRIGLYCERIDES (BEAKER) (test elio=333) 70 mg/dL CHOLESTEROL (BEAKER) (test lvhj=346) 101 mg/dL HDL CHOLESTEROL (BEAKER) (test lyvm=725) 39 mg/dL LDL CHOLESTEROL CALCULATED (BEAKER) (test 48 mg/dL ybeh=903) Triglyceride Reference Range: Low Risk <150 Borderline 150- 199 High Risk 200-499 Very High Risk >=500Cholesterol Reference Range: Low Risk <200 Borderline 200-239 High Risk > 240HDL Cholesterol Reference Range: Low Risk >=60 High Risk <40LDL Cholesterol Reference Range: Optimal <100 Near Optimal 100-129 Borderline 130-159 High 160-189 Very High >=190POCT-GLUCOSE [id number] 21:35:00 Test Item Value Reference Range Comments POC-GLUCOSE METER (BEAKER) 128 mg/dL 70-110 TESTED AT [address] (test yfhw=7213) [place] [address] POCT-GLUCOSE [id number] 17:55:00 Test Item Value Reference Range Comments POC-GLUCOSE METER (BEAKER) 113 mg/dL 70-110 TESTED AT [address] (test kort=9419) [place] [address] POCT-GLUCOSE [id number] 12:32:00 Test Item Value Reference Range Comments POC-GLUCOSE METER (BEAKER) 120 mg/dL 70-110 TESTED AT [address] (test vock=9051) [place] [address] MR, MRA, BRAIN, WITHOUT [id number] 11:33:00Reason for exam:-> Ischemic Stroke EvaluationFINAL REPORT MRA Head and Neck CLINICAL HISTORY: CVA TECHNIQUE: MRA of the head utilizing 3-D uwbl-bx-juypvy technique, with 3-D reconstructions. MRA of the [...] There is no other evidence for a [place] proximal branch vessel occlusion. There [...] Verified Date/Time: 11/20/2017 11:33:14 Reading Location : [facility] C013 Neuro Reading Room MR, MRA, NECK, WITHOUT IV [id number] 11:33: 00Reason for exam:->Ischemic Stroke EvaluationFINAL REPORT MRA Head and Neck CLINICAL HISTORY: CVA TECHNIQUE: MRA of the head utilizing 3-D qcwc-ro-pwvjav technique, with 3-D reconstructions. MRA of the neck utilizing 2-D and 3-D chww-tt-ybygzu technique, with 3-D reconstructions. COMPARISON: None FINDINGS: [...] There is no other evidence for a [place] proximal branch vessel occlusion. There [...] Verified Date/Time: 11/20/2017 11 :33:14 Reading Location: [address] Neuro Reading Room MR, BRAIN, WITHOUT [id number] 11:05:00Reason for exam:->Ischemic Stroke EvaluationFINAL REPORT MRI [...] Koch Verified Date/Time: 11/20/2017 11:05:05 Reading Location: [address] Neuro Reading Room HEMOGLOBIN [id number] 09:08:00 Test Item Value Reference Range Comments HEMOGLOBIN A1C (BEAKER) (test ksce=513) 6.1 % 4.3-6.1 POCT-GLUCOSE [id number] 08:27:00 Test Item Value Reference Range Comments POC-GLUCOSE METER (BEAKER) 125 mg/dL 70-110 TESTED AT [address] (test cbfl=3354) [facility] [address] TSH/FREE T4 IF [id number] 07:47:00 Test Item Value Reference Range Comments THYROID STIMULATING HORMONE (BEAKER) (test 5.97 uIU/mL 0.35-4.94 fmtf=176) VITAMIN [id number] 07:44:00 Test Item Value Reference Range Comments VITAMIN B12 (BEAKER) (test nrjk=195) 857 pg/mL 213-816 CBC W/PLT COUNT & AUTO [id number] 06:47:00 Test Item Value Reference Range Comments WHITE BLOOD CELL COUNT (BEAKER) (test gbae=902) 8.3 K/ L 3.5-10.5 RED BLOOD CELL COUNT (BEAKER) (test ibum=219) 4.11 M/ L 3.93-5.22 HEMOGLOBIN (BEAKER) (test iynk=638) 13.4 GM/DL 11.2-15.7 HEMATOCRIT (BEAKER) (test phbl=689) 39.7 % 34.1-44.9 MEAN CORPUSCULAR VOLUME (BEAKER) (test cfzk=591) 96.6 fL 79.4-94.8 MEAN CORPUSCULAR HEMOGLOBIN (BEAKER) (test 32.6 pg 25.6-32.2 ggwd=913) MEAN CORPUSCULAR HEMOGLOBIN CONC (BEAKER) (test 33.8 GM/DL 32.2-35.5 flou=419) RED CELL DISTRIBUTION WIDTH (BEAKER) (test 12.1 % 11.7-14.4 lmwh=001) PLATELET COUNT (BEAKER) (test uftl=797) 209 K/CU MM 150-450 MEAN PLATELET VOLUME (BEAKER) (test rkgd=133) 9.7 fL 9.4-12.3 NUCLEATED RED BLOOD CELLS (BEAKER) (test 0 /100 WBC 0-0 hyqe=791) NEUTROPHILS RELATIVE PERCENT (BEAKER) (test 49 % sjql=419) LYMPHOCYTES RELATIVE PERCENT (BEAKER) (test 35 % qcvd=363) MONOCYTES RELATIVE PERCENT (BEAKER) (test 12 % fvtj=560) EOSINOPHILS RELATIVE PERCENT (BEAKER) (test 4 % tuua=387) BASOPHILS RELATIVE PERCENT (BEAKER) (test 1 % urku=479) NEUTROPHILS ABSOLUTE COUNT (BEAKER) (test 4.02 K/ L 1.56-6.13 fvbx=883) LYMPHOCYTES ABSOLUTE COUNT (BEAKER) (test 2.89 K/ L 1.18-3.74 xljj=153) MONOCYTES ABSOLUTE COUNT (BEAKER) (test 0.95 K/ L 0.24-0.36 kffh=925) EOSINOPHILS ABSOLUTE COUNT (BEAKER) (test 0.35 K/ L 0.04-0.36 oecn=410) BASOPHILS ABSOLUTE COUNT (BEAKER) (test 0.04 K/ L 0.01-0.08 umzd=939) IMMATURE GRANULOCYTES-RELATIVE PERCENT (BEAKER) 0 % 0-1 (test urvg=8814) POCT-GLUCOSE [id number] 22:09:00 Test Item Value Reference Range Comments POC-GLUCOSE METER (BEAKER) 130 mg/dL 70-110 TESTED AT [facility] [address] (test blma=2121) [facility] [id number]
--- OUTSIDE RECORDS SUMMARY | 2019-06-20 18:10 | XMS REPORT ---
[...] Ranitidine NDC 0 Active not defined Levothyroxine [facility] [address]-92 Active not defined Sodium Vitamin B-12 [facility] 53440-64940 Active not defined Metformin HCl [facility] 37306142032 500 MG Orally Active 1 tablet with Twice a day meals Sertraline HCl [facility] 95383036268 25 Orally Once Active 1 tablet a day Bactrim DS [facility] 96508025127 800-160 MG December Active 1 tablet Orally Twice a 2018 Vitamin E [facility] 83[address]-19220 Active not defined Cranberry [facility] 95922-30035 Active not defined Concentrate Rosuvastatin [facility] 06420614153 40 Active TAKE 1 TABLET Calcium BY MOUTH DAILY Cyanocobalamin [facility] [address]-59 1000 MCG/15ML Active 15 ml Orally Once a day Tylenol Arthritis ND 0 Active not defined Pain Valsartan [facility] 96138222030 160 MG Orally Active 1 tablet Once a day Bactrim DS [facility] 92021944623 800-160 MG January Active 1 tablet Orally Twice a , 2017 Crestor [facility] 66659141290 40 MG Active 1 EACH ONCE A DAY Multivitamin [facility] 31707-07950 Active not defined Probiotic [facility] 78624-80910 Active not defined Plavix [facility] 55233413598 75 MG Orally Active 1 tablet Once a day HydrALAZINE HCl [facility] 93049131608 100 MG Orally December 05, Active as directed Three times a 2017 day Toviaz [facility] 30870993750 8 MG Orally Active 1 tablet Once a day Verapamil HCl [facility] [address]-45 Active not defined Omeprazole [facility] 62884430378 40 Active TAKE 1 CAPSULE BY MOUTH EVERY DAY Fluconazole ND 66711535640 150 MG Orally Sep 15, Active 1 tablet one tab a week 2019 today and may repeat one tab in 1 week if no improvement Estradiol [facility] 28837950465 0.1 MG/GM January Active as directed Vaginal Two 22, times a Week 2018 Metformin HCl [facility] 98547549327 500 Active TAKE 1 TABLET BY MOUTH TWICE DAILY Omeprazole [facility] 56528469770 40 MG orally Active 1 EACH ONCE A daily in AM DAY Eliquis [facility] 74114868952 5 MG Orally Active 1 tablet twice a day Sertraline HCl [facility] 89211854717 25 MG Orally Active 1 tablet Once a day Carvedilol ND 16936297396 25 MG Orally Active as directed Vitamin D3 [facility] 71724420117 1000 UNIT Active 1 capsule Orally Once a day Amlodipine [facility] 82077048803 10 MG Orally Active 1 tablet Besylate Once a day Coreg [facility] 04027103981 25 MG Orally Active not defined HydrALAZINE HCl [facility] 60307285153 100 MG Orally Active 1 tablet with Three times a food day Irbesartan [facility] 55088893378 150 MG Orally Active 1 tablet Once a day Results No Known Results Summary Purpose eClinicalWorks Submission
[2019-06-20] MEDS ORDERED: NA CHLORIDE 0.9% 500 ML ONE (19:33)
[2019-06-20] MEDS ORDERED: ONDANSETRON 4 MG/2 ML VIAL ONE (19:33)
[2019-06-20 20:01] LABS: Absolute Lymphocytes (CBC) 2.6 K/uL (0.7-4.9); Basophils % 0.3 % (0-1.3); Hematocrit 35.4 % (36.0-45.0); Lymphocytes % 27.3 % (15.3-44.8); RBC Red Blood Cell Count 3.69 M/uL (3.86-4.86)
[2019-06-20 20:24] LABS: ALT/SGPT 29 U/L (12-78); AST/SGOT 17 U/L (15-37); Albumin 3.6 g/dL (3.4-5.0); Alkaline Phosphatase 104 U/L (45-117); BUN Blood Urea Nitrogen 13 mg/dL (7-18); Bicarbonate 29 mmol/L (21-32); Bilirubin Direct 0.2 mg/dL (0-0.2); Bilirubin Total 0.6 mg/dL (0.2-1.0); Glucose Level 130 mg/dL (74-106); Lipase 134 U/L (73-393); Potassium 4.2 mmol/L (3.5-5.1); Protein, Total 7.2 g/dL (6.4-8.2); Sodium Level 135 mmol/L (136-145)
--- NOTE | 2019-06-20 21:59 | ER ---
Nurse's Notes [facility] Name: Radha Lara Age: 83 yrs Sex: Female : 1935 Arrival Date: 06/20/2019 Time: 18:09 Bed 23 Private MD: Elli Britt Diagnosis: Viral syndrome Presentation: 06/20 18:16 Presenting complaint: Patient states: I feel miserable and tired, my neck hurts right la1 at my shoulders, my legs hurt, I just hurt all over. I do have a sniffly nose. Transition of care: patient was not received from another setting of care. Onset of symptoms was June 20, 2019. Risk Assessment: Do you want to hurt yourself or someone else? Patient reports no desire to harm self or others. Initial Sepsis Screen: Does the patient meet any 2 criteria? No. Patient's initial sepsis screen is negative. Does the patient have a suspected source of infection? No. Patient's initial sepsis screen is negative. Care prior to arrival: None. 18:16 Method Of Arrival: Wheelchair la1 18:16 Acuity: YOLANDE 3 la1 Historical: - Allergies: 18:16 Aspirin; la1 18:16 Clonidine; la1 18:16 Codeine; la1 18:16 Ibuprofen; la1 18:16 Iodinated Contrast Media - IV Dye; la1 18:16 Lisinopril; la1 18:16 Niacin; la1 18:16 Nitrofurantoin; la1 18:16 nitrous oxide; la1 18:16 vicoden; la1 18:16 Zoloft; la1 - PMHx: 18:16 acid reflux; Atrial Fib; CVA; Diabetes - NIDDM; Hyperlipidemia; Hypertension; Kidney la1 stones; PE; Sleep Apnea; TIA; UTI; - Immunization history:: Adult Immunizations up to date. - Social history:: Smoking status: Patient/guardian denies using tobacco. - Ebola Screening: : No symptoms or risks identified at this time. Screenin:43 Abuse screen: Denies threats or abuse. Denies injuries from another. Nutritional aa1 screening: No deficits noted. Tuberculosis screening: No symptoms or risk factors identified. Fall Risk IV access (20 points). Assessment: 19:43 General: Appears in no apparent distress. uncomfortable, Behavior is calm, cooperative, aa1 appropriate for age. Pain: Complains of pain in back, right leg, left leg and neck Quality of pain is described as aching, throbbing. Neuro: Level of Consciousness is awake, alert, obeys commands, Oriented to person, place, time, situation, Moves all extremities. Speech is normal. Cardiovascular: Denies chest pain, palpitations, shortness of breath, Heart tones S1 S2 present. Cardiovascular: Reports fatigue, nausea. Respiratory: Airway is patent Respiratory effort is even, unlabored, Respiratory pattern is regular, symmetrical, Breath sounds are clear bilaterally. GI: Abdomen is non-distended, Abd is soft and non tender X 4 quads. Reports nausea, vomiting. : No signs and/or symptoms were reported regarding the genitourinary system. EENT: No signs and/or symptoms were reported regarding the EENT system. Derm: Skin is intact, is healthy with good turgor, Skin is pink, warm \T\ dry. Musculoskeletal: Circulation, motion, and sensation intact. Capillary refill < 3 seconds. 21:00 Reassessment: Patient appears in no apparent distress at this time. Patient and/or aa1 family updated on plan of care and expected duration. Pain level reassessed. Patient is alert, oriented x 3, equal unlabored respirations, skin warm/dry/pink. Awaiting provider reassessment. 22:10 Reassessment: Patient appears in no apparent distress at this time. Patient is alert, aa1 oriented x 3, equal unlabored respirations, skin warm/dry/pink. Discussed d/c \T\ f/u instructions with pt; denies questions or concerns at this time. Pt taken to vehicle via wheelchair Patient denies pain at this time. Patient states feeling better. Vital Signs: 18:15 Pulse 65; Resp 16; Temp 98.1; Pulse Ox 100% on R/A; Weight 58.97 kg; Height 5 ft. 2 in. la1 (157.48 cm); 18:25 BP 164 / 65; la1 19:13 BP 188 / 62; Pulse 73; Resp 16; Temp 97.9(O); Pulse Ox 97% on R/A; tr5 20:05 BP 163 / 55; Pulse 71; Resp 18; Pulse Ox 94% on R/A; Pain 5/10; aa1 21:00 BP 155 / 57; Pulse 74; Resp 18; Pulse Ox 94% on R/A; Pain 0/10; aa1 22:10 BP 153 / 54; Pulse 74; Resp 16; Temp 98.1; Pulse Ox 95% on R/A; Pain 0/10; aa1 18:15 Body Mass Index 23.78 (58.97 kg, 157.48 cm) la1 ED Course: 18:09 Patient arrived in ED. mr 18:09 Elli Britt MD is Private Physician. mr 18:15 Eleazar Tenorio MD is Attending Physician. kdr 18:16 Arm band placed on left wrist. la1 18:17 Triage completed. la1 19:01 Magalys Johns RN is Primary Nurse. aa1 19:12 Vega Gomez MD is Attending Physician. tw4 19:43 Patient has correct armband on for positive identification. Bed in low position. Call aa1 light in reach. table games supervisor on. Pulse ox on. NIBP on. Warm blanket given. Pillow given. 19:44 Initial lab(s) drawn, by mt, sent to lab. Inserted saline lock: 22 gauge in right hand, tr5 using aseptic technique. 21:58 Elli Britt MD is Referral Physician. tw4 22:10 No provider procedures requiring assistance completed. IV discontinued, intact, aa1 bleeding controlled, No redness/swelling at site. Pressure dressing applied. Administered Medications: 19:45 Drug: Zofran 4 mg Route: IVP; Site: right hand; tr5 19:45 Drug: NS 0.9% 500 ml Route: IV; Rate: bolus; Site: right hand; tr5 Outcome: 21:58 Discharge ordered by . tw4 22:10 Discharged to home ambulatory. aa1 22:10 Condition: stable 22:10 Discharge instructions given to patient, family, Instructed on discharge instructions, follow up and referral plans. medication usage, Demonstrated understanding of instructions, follow-up care, medications, Prescriptions given X 1. 22:13 Patient left the ED. aa1 Signatures: Magalys Johns RN RN aa1 Eleazar Tenorio MD MD kdr Hanna, Marley mr Kevin Minaya RN LAILA la1 Vega Gomez MD MD tw4 Jitendra, Kyle, RN RN tr5
--- NOTE | 2019-06-20 21:59 | EDPHYS ---
Physician Documentation [facility] Name: Radha Lara Age: 83 yrs Sex: Female : 1935 Arrival Date: 06/20/2019 Time: 18:09 Bed 23 Private MD: Elli Britt ED Physician Vega Gomez HPI: 06/20 20:10 This 83 yrs old Female presents to ER via Wheelchair with complaints of tw4 Weakness, Nausea, Neck Problem. 20:10 The patient presents to the emergency department with nausea, that is moderate, tw4 vomiting, 2 times since the onset of symptoms. Onset: The symptoms/episode began/occurred today. Possible causes: unknown. The symptoms are aggravated by nothing. The symptoms are alleviated by nothing. Associated signs and symptoms: The patient has no apparent associated signs or symptoms. Severity of symptoms: At their worst the symptoms were mild in the emergency department the symptoms are unchanged. The patient has not experienced similar symptoms in the past. Historical: - Allergies: 18:16 Aspirin; la1 18:16 Clonidine; la1 18:16 Codeine; la1 18:16 Ibuprofen; la1 18:16 Iodinated Contrast Media - IV Dye; la1 18:16 Lisinopril; la1 18:16 Niacin; la1 18:16 Nitrofurantoin; la1 18:16 nitrous oxide; la1 18:16 vicoden; la1 18:16 Zoloft; la1 - PMHx: 18:16 acid reflux; Atrial Fib; CVA; Diabetes - NIDDM; Hyperlipidemia; Hypertension; Kidney la1 stones; PE; Sleep Apnea; TIA; UTI; - Immunization history:: Adult Immunizations up to date. - Social history:: Smoking status: Patient/guardian denies using tobacco. - Ebola Screening: : No symptoms or risks identified at this time. ROS: 20:10 Eyes: Negative for injury, pain, redness, and discharge, ENT: Negative for injury, tw4 pain, and discharge, Cardiovascular: Negative for chest pain, palpitations, and edema, Respiratory: Negative for shortness of breath, cough, wheezing, and pleuritic chest pain, Back: Negative for injury and pain, MS/Extremity: Negative for injury and deformity, Skin: Negative for injury, rash, and discoloration. 20:10 Constitutional: Positive for malaise, Negative for body aches, chills, fatigue, fever. 20:10 Abdomen/GI: Positive for nausea, vomiting, Negative for abdominal pain, nausea and vomiting, nausea, vomiting, and diarrhea, vomiting, diarrhea, constipation, abdominal cramps, abdominal distension, anorexia, dysphagia, hematemesis, black/tarry stool, rectal pain, rectal bleeding. Exam: 20:10 Constitutional: This is a well developed, well nourished patient who is awake, alert, tw4 and in no acute distress. Head/Face: Normocephalic, atraumatic. Neck: Trachea midline, no thyromegaly or masses palpated, and no cervical lymphadenopathy. Supple, full range of motion without nuchal rigidity, or vertebral point tenderness. No Meningismus. Chest/axilla: Normal chest wall appearance and motion. Nontender with no deformity. No lesions are appreciated. Cardiovascular: Regular rate and rhythm with a normal S1 and S2. No gallops, murmurs, or rubs. Normal PMI, no JVD. No pulse deficits. Respiratory: Lungs have equal breath sounds bilaterally, clear to auscultation and percussion. No rales, rhonchi or wheezes noted. No increased work of breathing, no retractions or nasal flaring. Abdomen/GI: Soft, non-tender, with normal bowel sounds. No distension or tympany. No guarding or rebound. No evidence of tenderness throughout. Back: No spinal tenderness. No costovertebral tenderness. Full range of motion. Skin: Warm, dry with normal turgor. Normal color with no rashes, no lesions, and no evidence of cellulitis. MS/ Extremity: Pulses equal, no cyanosis. Neurovascular intact. Full, normal range of motion. Vital Signs: 18:15 Pulse 65; Resp 16; Temp 98.1; Pulse Ox 100% on R/A; Weight 58.97 kg; Height 5 ft. 2 in. la1 (157.48 cm); 18:25 BP 164 / 65; la1 19:13 BP 188 / 62; Pulse 73; Resp 16; Temp 97.9(O); Pulse Ox 97% on R/A; tr5 20:05 BP 163 / 55; Pulse 71; Resp 18; Pulse Ox 94% on R/A; Pain 5/10; aa1 21:00 BP 155 / 57; Pulse 74; Resp 18; Pulse Ox 94% on R/A; Pain 0/10; aa1 22:10 BP 153 / 54; Pulse 74; Resp 16; Temp 98.1; Pulse Ox 95% on R/A; Pain 0/10; aa1 18:15 Body Mass Index 23.78 (58.97 kg, 157.48 cm) la1 MDM: 19:12 Patient medically screened. 06/21 06:45 Differential diagnosis: Nonspecific abd pain, gastritis, viral gastroenteritis, tw4 gastroenteritis. Data reviewed: vital signs, nurses notes. Data reviewed: lab test result(s), CBC, white blood cell count, hemoglobin, hematocrit, platelets, electrolytes, potassium, chloride, serum bicarbonate, BUN, creatinine, serum glucose, Flu: negative hepatic panel. Data interpreted: Pulse oximetry: Interpretation: normal. Counseling: I had a detailed discussion with the patient and/or guardian regarding: the historical points, exam findings, and any diagnostic results supporting the discharge/admit diagnosis, lab results. Special discussion: I discussed with the patient/guardian in detail that at this point there is no indication for admission to the hospital. It is understood, however, that if the symptoms persist or worsen the patient needs to return immediately for re-evaluation. 06/20 19:24 Order name: Basic Metabolic Panel; Complete Time: 21:34 06/20 21:37 Interpretation: Normal except: NA 135; GLUC 130. 06/20 19:24 Order name: CBC with Diff; Complete Time: 21:34 06/20 21:37 Interpretation: Normal except: RBC 3.69; HGB 11.9; HCT 35.4. 06/20 19:24 Order name: Creatinine for Radiology; Complete Time: 21:34 06/20 21:38 Interpretation: Within normal limits: CRE 0.56. 06/20 19:24 Order name: Hepatic Function; Complete Time: 21:34 06/20 21:37 Interpretation: Normal except: GLOB 3.6; A/G 1.0. 06/20 19:24 Order name: Lipase; Complete Time: 21:34 06/20 21:38 Interpretation: Within normal limits: LIP 134. 06/20 19:24 Order name: Flu; Complete Time: 21:34 tw4 06/20 21:38 Interpretation: Within normal limits. 4 06/20 19:24 Order name: IV Saline Lock; Complete Time: 19:45 tw4 06/20 19:24 Order name: Labs collected and sent; Complete Time: 19:45 tw4 Administered Medications: 06/20 19:45 Drug: Zofran 4 mg Route: IVP; Site: right hand; tr5 19:45 Drug: NS 0.9% 500 ml Route: IV; Rate: bolus; Site: right hand; tr5 Disposition: 06/20/19 21:58 Discharged to Home. Impression: Viral syndrome. - Condition is Stable. - Discharge Instructions: Nausea, Adult. - Prescriptions for Zofran 4 mg Oral Tablet - take 1 tablet by ORAL route every 12 hours As needed; 6 tablet. - Medication Reconciliation Form, Thank You Letter, Antibiotic Education, Prescription Opioid Use form. - Follow up: Elli Britt MD; When: Upon discharge from the Emergency Department; Reason: Recheck today's complaints, Continuance of care. - Problem is new. - Symptoms have improved. Signatures: Dispatcher [employer] EDMS Magalys Johns RN RN aa1 Kevin Minaya RN RN la1 Vega Gomez MD MD tw4 Kyle Ham RN RN tr5 Corrections: (The following items were deleted from the chart) 22:13 21:58 06/20/2019 21:58 Discharged to Home. Impression: Viral syndrome. Condition is aa1 Stable. Forms are Medication Reconciliation Form, Thank You Letter, Antibiotic Education, Prescription Opioid Use. Follow up: Elli Britt; When: Upon discharge from the Emergency Department; Reason: Recheck today's complaints, Continuance of care. Problem is new. Symptoms have improved. tw4
[2019-06-20 22:58] VITALS: TEMP 97.9
[2019-06-20 22:59] VITALS: O2SAT 94
[2019-06-20 23:01] VITALS: BP 155/57
== END 2019-06-20 22:13 | disposition home or self-care (01) ==
LOC: ER 18:07
DX: B34.9 Viral infection, unspecified (principal); Z88.6 Allergy status to analgesic agent; Z88.8 Allergy status to other drugs, medicaments and biological substances; Z91.09 Other allergy status, other than to drugs and biological substances
CPT/HCPCS: 85025; 80048; 36415; 80076; 83690; 87804 ×2; 96374; 99284; J7040; J2405

== ENCOUNTER 2019-07-19 16:05 | Emergency (ER) | payer OTHER ==
--- OUTSIDE RECORDS SUMMARY | 2019-07-19 16:08 | XMS REPORT ---
:1935 [facility] [place] [address] Care Team Providers Name Role Phone LARISSA [...] for FINAL REPORT PATIENT ID: BRAIN exam:->stroke [id number] CLINICAL HISTORY: TIA TECHNIQUE: Initially, noncontrast head [...] intact. There is no evidence for a blackfeet of Lawson proximal branch vessel occlusion. Mild [...] artery stenosis, unchanged. No evidence for a blackfeet of Lawson proximal branch vessel occlusion. Signed: Alexa Koch MDReport Verified Date/Time: 05/01/2019 10:58:29 Reading Location: [facility] C013V Neuro Reading Room , CAROTID, 2019-05-01 10:58:00 Reason for exam:->eval FINAL REPORT PATIENT ID: ANGIO for TIA [id number] CLINICAL HISTORY: TIA TECHNIQUE: Initially, noncontrast head [...] intact. There is no evidence for a blackfeet of Lawson proximal branch vessel occlusion. Mild [...] artery stenosis, unchanged. No evidence for a blackfeet of Lawson proximal branch vessel occlusion. Signed: Alexa Koch MDReport Verified Date/Time: 05/01/2019 10:58:29 Reading Location: [facility] C013V Neuro Reading Room C METABOLIC PANEL 2019-05-01 06:04:00 Test Item Value Reference Range Comments SODIUM (BEAKER) (test 133 meq/L 136-145 dssj=681) POTASSIUM (BEAKER) (test 4.3 meq/L 3.5-5.1 zwom=039) CHLORIDE (BEAKER) (test 104 meq/L 98-107 mpoi=229) CO2 (BEAKER) (test kxfn=471) 24 meq/L 22-29 BLOOD UREA NITROGEN (BEAKER) 8 mg/dL 7-21 (test kthc=546) CREATININE (BEAKER) (test 0.63 mg/dL 0.57-1.25 uuzk=710) GLUCOSE RANDOM (BEAKER) 105 mg/dL 70-105 (test jtif=236) CALCIUM (BEAKER) (test 8.8 mg/dL 8.4-10.2 wclj=303) EGFR (BEAKER) (test 90 mL/min/1.73 sq m ESTIMATED GFR IS NOT nsdw=9050) ACCURATE CREATININE CLEARANCE IN PREDICTING GLOMERULAR FILTRATION RATE. ESTIMATED GFR IS NOT APPLICABLE FOR DIALYSIS PATIENTS. CBC (HEMOGRAM ONLY)2019-05-01 04:59:00 Test Item Value Reference Range Comments WHITE BLOOD CELL COUNT (BEAKER) (test dcdp=812) 7.4 K/ L 3.5-10.5 RED BLOOD CELL COUNT (BEAKER) (test zhjf=815) 3.56 M/ L 3.93-5.22 HEMOGLOBIN (BEAKER) (test iife=786) 11.3 GM/DL 11.2-15.7 HEMATOCRIT (BEAKER) (test bmlq=340) 33.9 % 34.1-44.9 MEAN CORPUSCULAR VOLUME (BEAKER) (test bwyq=496) 95.2 fL 79.4-94.8 MEAN CORPUSCULAR HEMOGLOBIN (BEAKER) (test 31.7 pg 25.6-32.2 vjtp=396) MEAN CORPUSCULAR HEMOGLOBIN CONC (BEAKER) (test 33.3 GM/DL 32.2-35.5 ydze=674) RED CELL DISTRIBUTION WIDTH (BEAKER) (test 12.0 % 11.7-14.4 sydm=294) PLATELET COUNT (BEAKER) (test lmzt=761) 170 K/CU MM 150-450 MEAN PLATELET VOLUME (BEAKER) (test kktr=921) 9.6 fL 9.4-12.3 NUCLEATED RED BLOOD CELLS (BEAKER) (test 0 /100 WBC 0-0 amhn=282) TROPONIN [id number] 20:18:00 Test Item Value Reference Range Comments TROPONIN I (BEAKER) (test bias=319) < ng/mL 0.00-0.03 Troponin I (TnI) levels [...] neurological disease, and persistent tachyarrhythmia.MR, BRAIN, WITHOUT [id number] 19 :07:00Reason for exam:->Ischemic Stroke EvaluationFINAL REPORT [...] Verified Date/ Time: 04/30/2019 19:07:03 Reading Location: [address] Neuro Reading Room HEMOGLOBIN [id number] 10:33:00 Test Item Value Reference Range Comments HEMOGLOBIN A1C (BEAKER) (test baqb=972) 6.6 % 4.3-6.1 FastingVITAMIN [id number] 09:00:00 Test Item Value Reference Range Comments VITAMIN B12 (BEAKER) (test zlyf=314) 654 pg/mL 213-816 Add on please to morning labsAdd on to morning labsTSH/FREE T4 IF [id number] 09:00:00 Test Item Value Reference Range Comments THYROID STIMULATING HORMONE (BEAKER) (test 0.69 uIU/mL 0.35-4.94 ltce=318) Add on please to morning labsAdd on to morning labsBASIC METABOLIC [id number] 07:30:00 Test Item Value Reference Range Comments SODIUM (BEAKER) (test 131 meq/L 136-145 uzfd=842) POTASSIUM (BEAKER) (test 4.2 meq/L 3.5-5.1 Specimen slightly pxpi=666) hemolyzed CHLORIDE (BEAKER) (test 99 meq/L 98-107 tcgc=504) CO2 (BEAKER) (test 23 meq/L 22-29 juph=674) BLOOD UREA NITROGEN 10 mg/dL 7-21 (BEAKER) (test heot=375) CREATININE (BEAKER) (test 0.67 mg/dL 0.57-1.25 Specimen slightly zfbk=328) hemolyzed GLUCOSE RANDOM (BEAKER) 115 mg/dL 70-105 (test duia=478) CALCIUM (BEAKER) (test 8.8 mg/dL 8.4-10.2 dvpn=008) EGFR (BEAKER) (test 84 mL/min/1.73 sq m ESTIMATED GFR IS NOT pzof=6530) ACCURATE CREATININE CLEARANCE IN PREDICTING GLOMERULAR FILTRATION RATE. ESTIMATED GFR IS NOT APPLICABLE FOR DIALYSIS PATIENTS. FastingLIPID [id number] 07:30:00 Test Item Value Reference Range Comments TRIGLYCERIDES (BEAKER) (test 57 mg/dL Specimen slightly hemolyzed fffy=360) CHOLESTEROL (BEAKER) (test 83 mg/dL Specimen slightly hemolyzed svmw=378) HDL CHOLESTEROL (BEAKER) (test 37 mg/dL ppin=143) LDL CHOLESTEROL CALCULATED 35 mg/dL (BEAKER) (test pgmo=202) Triglyceride Reference Range: Low Risk <150 Borderline 150- 199 High Risk 200-499 Very High Risk >=500Cholesterol Reference Range: Low Risk <200 Borderline 200-239 High Risk > 240HDL Cholesterol Reference Range: Low Risk >=60 High Risk <40LDL Cholesterol Reference Range: Optimal <100 Near Optimal 100-129 Borderline 130-159 High 160-189 Very High >=190 FastingTROPONIN [id number] 07:28:00 Test Item Value Reference Range Comments TROPONIN I (BEAKER) (test smez=691) < ng/mL 0.00-0.03 Troponin I (TnI) levels [...] and persistent tachyarrhythmia.FastingCBC W/PLT COUNT & AUTO [id number] 05:43:00 Test Item Value Reference Range Comments WHITE BLOOD CELL COUNT (BEAKER) (test hrrw=076) 7.9 K/ L 3.5-10.5 RED BLOOD CELL COUNT (BEAKER) (test ypmw=622) 3.40 M/ L 3.93-5.22 HEMOGLOBIN (BEAKER) (test zloy=078) 10.6 GM/DL 11.2-15.7 HEMATOCRIT (BEAKER) (test tolw=985) 32.1 % 34.1-44.9 MEAN CORPUSCULAR VOLUME (BEAKER) (test vflz=886) 94.4 fL 79.4-94.8 MEAN CORPUSCULAR HEMOGLOBIN (BEAKER) (test 31.2 pg 25.6-32.2 uhvi=470) MEAN CORPUSCULAR HEMOGLOBIN CONC (BEAKER) (test 33.0 GM/DL 32.2-35.5 bmmz=848) RED CELL DISTRIBUTION WIDTH (BEAKER) (test 12.0 % 11.7-14.4 zfay=887) PLATELET COUNT (BEAKER) (test ltxw=944) 168 K/CU MM 150-450 MEAN PLATELET VOLUME (BEAKER) (test ngcu=386) 9.6 fL 9.4-12.3 NUCLEATED RED BLOOD CELLS (BEAKER) (test 0 /100 WBC 0-0 suiw=807) NEUTROPHILS RELATIVE PERCENT (BEAKER) (test 57 % nmdj=090) LYMPHOCYTES RELATIVE PERCENT (BEAKER) (test 28 % pqhl=206) MONOCYTES RELATIVE PERCENT (BEAKER) (test 12 % zdgz=775) EOSINOPHILS RELATIVE PERCENT (BEAKER) (test 2 % vweb=515) BASOPHILS RELATIVE PERCENT (BEAKER) (test 0 % ghgp=864) NEUTROPHILS ABSOLUTE COUNT (BEAKER) (test 4.50 K/ L 1.56-6.13 rmdb=512) LYMPHOCYTES ABSOLUTE COUNT (BEAKER) (test 2.23 K/ L 1.18-3.74 pdrn=308) MONOCYTES ABSOLUTE COUNT (BEAKER) (test 0.98 K/ L 0.24-0.36 gmjw=195) EOSINOPHILS ABSOLUTE COUNT (BEAKER) (test 0.15 K/ L 0.04-0.36 cvio=140) BASOPHILS ABSOLUTE COUNT (BEAKER) (test 0.03 K/ L 0.01-0.08 usfx=176) IMMATURE GRANULOCYTES-RELATIVE PERCENT (BEAKER) 0 % 0-1 (test neze=8677) NV, ANGIOGRAM, [id number] 11:37:00Reason for exam:->TIAsFINAL REPORT November 22, 2017 [...] guidance and strict sterile technique a 4 Icelandic femoral sheath was inserted into the right common femoral artery. Through the sheath a 4 Icelandic vertebral catheter was then advanced over the [...] demonstrates a critical supraclinoid ICA stenosis of bgjbmttxongkl56%. There is delayed antegrade flow. The venous [...] MDReport Verified Date/Time: 11/22/2017 11:37:47 Reading Location: [facility] Y018 Neuro Angio Reading Room POCT-GLUCOSE [id number] 07:43:00 Test Item Value Reference Range Comments POC-GLUCOSE METER (BEAKER) 149 mg/dL 70-110 TESTED AT [facility] [address] [facility] (test cifn=1517) [facility] [address] [id number] 06:46:00 Test Item Value Reference Range Comments MAGNESIUM (BEAKER) (test stjz=214) 2.0 mg/dL 1.6-2.6 BASIC METABOLIC [id number] 06:46:00 Test Item Value Reference Range Comments SODIUM (BEAKER) (test 133 meq/L 136-145 yffm=166) POTASSIUM (BEAKER) (test 4.4 meq/L 3.5-5.1 kmyr=277) CHLORIDE (BEAKER) (test 99 meq/L 98-107 tgls=915) CO2 (BEAKER) (test 25 meq/L 22-29 cwbl=261) BLOOD UREA NITROGEN 11 mg/dL 7-21 (BEAKER) (test pqop=408) CREATININE (BEAKER) (test 0.65 mg/dL 0.57-1.25 onnf=266) GLUCOSE RANDOM (BEAKER) 162 mg/dL 70-105 (test tkxr=339) CALCIUM (BEAKER) (test 9.5 mg/dL 8.4-10.2 tnbq=583) EGFR (BEAKER) (test 87 mL/min/1.73 sq m ESTIMATED GFR IS NOT dtly=3798) ACCURATE CREATININE CLEARANCE IN PREDICTING GLOMERULAR FILTRATION RATE. ESTIMATED GFR IS NOT APPLICABLE FOR DIALYSIS PATIENTS. [id number] 06:33:00 Test Item Value Reference Range Comments PROTIME (BEAKER) (test cajr=183) 15.5 seconds 11.7-14.7 INR (BEAKER) (test prgs=505) 1.2 <=5.9 PARTIAL THROMBOPLASTIN TIME (BEAKER) (test 35.9 seconds 22.5-36.0 jufb=655) RECOMMENDED COUMADIN/WARFARIN INR THERAPY RANGESSTANDARD DOSE: 2.0 - 3.0 Includes: PROPHYLAXIS forvenous thrombosis, systemic embolization; TREATMENT for venous thrombosis and/or pulmonary embolus.HIGH RISK: Target INR is 2.5-3.5 for patients with mechanical heart valves.POCT-GLUCOSE [id number] 06:22:00 Test Item Value Reference Range Comments POC-GLUCOSE METER (BEAKER) 161 mg/dL 70-110 TESTED AT [address] (test fpvo=0493) [place] [address] POCT-GLUCOSE [id number] 02:08:00 Test Item Value Reference Range Comments POC-GLUCOSE METER (BEAKER) 182 mg/dL 70-110 TESTED AT [address] (test jvhc=4211) [place] [address] POCT-GLUCOSE [id number] 19:30:00 Test Item Value Reference Range Comments POC-GLUCOSE METER (BEAKER) 146 mg/dL 70-110 TESTED AT [address] (test rvzo=1467) [place] [address] CT, CAROTID, [id number] 14:54:00Please include aortaFINAL REPORT CT angiogram of [...] the left ICA terminus. There is also jiqe-zv-ntoghgpy multifocal narrowing of the right carotid siphon. [...] MDReport Verified Date/Time: 11/21/2017 14:54:26 Reading Location: [facility] Radiology Reading Room H MEJIA [id number] 14:54:00FINAL REPORT CT angiogram of the upper [...] the left ICA terminus. There is also cyix-oh-wkiflbht multifocal narrowing of the right carotid siphon. [...] Mcdaniels Verified Date/Time: 11/21/2017 14:54:26 Reading Location: [facility] Radiology Reading Room POCT-GLUCOSE [id number] 11:50:00 Test Item Value Reference Range Comments POC-GLUCOSE METER (BEAKER) 153 mg/dL 70-110 TESTED AT [place] [id number] [facility] (test tbfi=6991) [facility] [address] POCT-GLUCOSE [id number] 08:08:00 Test Item Value Reference Range Comments POC-GLUCOSE METER (BEAKER) 125 mg/dL 70-110 TESTED AT [address] (test yaoz=3526) [place] [address] [id number] 06:43:00 Test Item Value Reference Range Comments MAGNESIUM (BEAKER) (test iajn=517) 2.1 mg/dL 1.6-2.6 BASIC METABOLIC [id number] 06:43:00 Test Item Value Reference Range Comments SODIUM (BEAKER) (test 136 meq/L 136-145 cxuw=822) POTASSIUM (BEAKER) (test 4.0 meq/L 3.5-5.1 sqhi=927) CHLORIDE (BEAKER) (test 101 meq/L 98-107 cxig=272) CO2 (BEAKER) (test 27 meq/L 22-29 mfpg=775) BLOOD UREA NITROGEN 12 mg/dL 7-21 (BEAKER) (test logx=756) CREATININE (BEAKER) (test 0.68 mg/dL 0.57-1.25 ifuc=718) GLUCOSE RANDOM (BEAKER) 122 mg/dL 70-105 (test brem=162) CALCIUM (BEAKER) (test 9.5 mg/dL 8.4-10.2 ggau=550) EGFR (BEAKER) (test 83 mL/min/1.73 sq m ESTIMATED GFR IS NOT kknv=6487) ACCURATE CREATININE CLEARANCE IN PREDICTING GLOMERULAR FILTRATION RATE. ESTIMATED GFR IS NOT APPLICABLE FOR DIALYSIS PATIENTS. TSH/FREE T4 IF [id number] 22:12:00 Test Item Value Reference Range Comments THYROID STIMULATING HORMONE (BEAKER) (test 4.66 uIU/mL 0.35-4.94 doso=756) [id number] 21:54:00 Test Item Value Reference Range Comments MAGNESIUM (BEAKER) (test nnxp=412) 2.0 mg/dL 1.6-2.6 BASIC METABOLIC [id number] 21:54:00 Test Item Value Reference Range Comments SODIUM (BEAKER) (test 134 meq/L 136-145 liwj=085) POTASSIUM (BEAKER) (test 4.1 meq/L 3.5-5.1 pgki=454) CHLORIDE (BEAKER) (test 101 meq/L 98-107 dkmi=803) CO2 (BEAKER) (test 24 meq/L 22-29 iyby=020) BLOOD UREA NITROGEN 11 mg/dL 7-21 (BEAKER) (test uusn=181) CREATININE (BEAKER) (test 0.65 mg/dL 0.57-1.25 hgqo=061) GLUCOSE RANDOM (BEAKER) 126 mg/dL 70-105 (test gmax=287) CALCIUM (BEAKER) (test 9.5 mg/dL 8.4-10.2 rwya=736) EGFR (BEAKER) (test 87 mL/min/1.73 sq m ESTIMATED GFR IS NOT bpbe=6913) ACCURATE CREATININE CLEARANCE IN PREDICTING GLOMERULAR FILTRATION RATE. ESTIMATED GFR IS NOT APPLICABLE FOR DIALYSIS PATIENTS. LIPID [id number] 21:54:00 Test Item Value Reference Range Comments TRIGLYCERIDES (BEAKER) (test dlqq=725) 70 mg/dL CHOLESTEROL (BEAKER) (test shct=268) 101 mg/dL HDL CHOLESTEROL (BEAKER) (test mkvr=793) 39 mg/dL LDL CHOLESTEROL CALCULATED (BEAKER) (test 48 mg/dL xvmw=129) Triglyceride Reference Range: Low Risk <150 Borderline 150- 199 High Risk 200-499 Very High Risk >=500Cholesterol Reference Range: Low Risk <200 Borderline 200-239 High Risk > 240HDL Cholesterol Reference Range: Low Risk >=60 High Risk <40LDL Cholesterol Reference Range: Optimal <100 Near Optimal 100-129 Borderline 130-159 High 160-189 Very High >=190POCT-GLUCOSE [id number] 21:35:00 Test Item Value Reference Range Comments POC-GLUCOSE METER (BEAKER) 128 mg/dL 70-110 TESTED AT [address] (test lgzc=5711) [place] [address] POCT-GLUCOSE [id number] 17:55:00 Test Item Value Reference Range Comments POC-GLUCOSE METER (BEAKER) 113 mg/dL 70-110 TESTED AT [address] (test clkm=0383) [place] [address] POCT-GLUCOSE [id number] 12:32:00 Test Item Value Reference Range Comments POC-GLUCOSE METER (BEAKER) 120 mg/dL 70-110 TESTED AT [address] (test zwhu=3078) [place] [address] MR, MRA, BRAIN, WITHOUT [id number] 11:33:00Reason for exam:-> Ischemic Stroke EvaluationFINAL REPORT MRA Head and Neck CLINICAL HISTORY: CVA TECHNIQUE: MRA of the head utilizing 3-D nudu-ii-wuafbl technique, with 3-D reconstructions. MRA of the [...] There is no other evidence for a blackfeet of Lawson proximal branch vessel occlusion. There [...] Verified Date/Time: 11/20/2017 11:33:14 Reading Location : [facility] C013 Neuro Reading Room MR, MRA, NECK, WITHOUT IV [id number] 11:33: 00Reason for exam:->Ischemic Stroke EvaluationFINAL REPORT MRA Head and Neck CLINICAL HISTORY: CVA TECHNIQUE: MRA of the head utilizing 3-D uleb-ws-ksktjd technique, with 3-D reconstructions. MRA of the neck utilizing 2-D and 3-D eifv-ix-hqpdci technique, with 3-D reconstructions. COMPARISON: None FINDINGS: [...] There is no other evidence for a blackfeet of Lawson proximal branch vessel occlusion. There [...] Date/Time: 11/20/2017 11 :33:14 Reading Location: [address] Neuro Reading Room MR, BRAIN, WITHOUT [id number] 11:05:00Reason for exam:->Ischemic Stroke EvaluationFINAL REPORT MRI [...] Koch Verified Date/Time: 11/20/2017 11:05:05 Reading Location: [address] Neuro Reading Room HEMOGLOBIN [id number] 09:08:00 Test Item Value Reference Range Comments HEMOGLOBIN A1C (BEAKER) (test nsxu=173) 6.1 % 4.3-6.1 POCT-GLUCOSE [id number] 08:27:00 Test Item Value Reference Range Comments POC-GLUCOSE METER (BEAKER) 125 mg/dL 70-110 TESTED AT [address] (test zvaq=0462) [facility] [address] TSH/FREE T4 IF [id number] 07:47:00 Test Item Value Reference Range Comments THYROID STIMULATING HORMONE (BEAKER) (test 5.97 uIU/mL 0.35-4.94 dtzd=285) VITAMIN [id number] 07:44:00 Test Item Value Reference Range Comments VITAMIN B12 (BEAKER) (test brwy=679) 857 pg/mL 213-816 CBC W/PLT COUNT & AUTO [id number] 06:47:00 Test Item Value Reference Range Comments WHITE BLOOD CELL COUNT (BEAKER) (test zpjq=069) 8.3 K/ L 3.5-10.5 RED BLOOD CELL COUNT (BEAKER) (test ecpc=704) 4.11 M/ L 3.93-5.22 HEMOGLOBIN (BEAKER) (test vfpq=932) 13.4 GM/DL 11.2-15.7 HEMATOCRIT (BEAKER) (test egob=385) 39.7 % 34.1-44.9 MEAN CORPUSCULAR VOLUME (BEAKER) (test amoc=170) 96.6 fL 79.4-94.8 MEAN CORPUSCULAR HEMOGLOBIN (BEAKER) (test 32.6 pg 25.6-32.2 wweg=072) MEAN CORPUSCULAR HEMOGLOBIN CONC (BEAKER) (test 33.8 GM/DL 32.2-35.5 omls=651) RED CELL DISTRIBUTION WIDTH (BEAKER) (test 12.1 % 11.7-14.4 ldrz=645) PLATELET COUNT (BEAKER) (test cwww=707) 209 K/CU MM 150-450 MEAN PLATELET VOLUME (BEAKER) (test nzog=435) 9.7 fL 9.4-12.3 NUCLEATED RED BLOOD CELLS (BEAKER) (test 0 /100 WBC 0-0 nbrh=910) NEUTROPHILS RELATIVE PERCENT (BEAKER) (test 49 % kjyy=556) LYMPHOCYTES RELATIVE PERCENT (BEAKER) (test 35 % bcwe=983) MONOCYTES RELATIVE PERCENT (BEAKER) (test 12 % oznu=982) EOSINOPHILS RELATIVE PERCENT (BEAKER) (test 4 % ncig=295) BASOPHILS RELATIVE PERCENT (BEAKER) (test 1 % hztf=693) NEUTROPHILS ABSOLUTE COUNT (BEAKER) (test 4.02 K/ L 1.56-6.13 xucu=848) LYMPHOCYTES ABSOLUTE COUNT (BEAKER) (test 2.89 K/ L 1.18-3.74 bobi=025) MONOCYTES ABSOLUTE COUNT (BEAKER) (test 0.95 K/ L 0.24-0.36 pwai=727) EOSINOPHILS ABSOLUTE COUNT (BEAKER) (test 0.35 K/ L 0.04-0.36 wcrx=008) BASOPHILS ABSOLUTE COUNT (BEAKER) (test 0.04 K/ L 0.01-0.08 bgbx=479) IMMATURE GRANULOCYTES-RELATIVE PERCENT (BEAKER) 0 % 0-1 (test inwn=8503) POCT-GLUCOSE [id number] 22:09:00 Test Item Value Reference Range Comments POC-GLUCOSE METER (BEAKER) 130 mg/dL 70-110 TESTED AT [facility] [address] [facility] (test legq=4678) [facility] [address]
--- OUTSIDE RECORDS SUMMARY | 2019-07-19 16:08 | XMS REPORT ---
[...] Ranitidine NDC 0 Active not defined Levothyroxine [facility] [address]-28 Active not defined Sodium Vitamin B-12 [facility] [address] Active not defined Metformin HCl [facility] 35963841908 500 MG Orally Active 1 tablet with Twice a day meals Sertraline HCl [facility] 09568337640 25 Orally Once Active 1 tablet a day Bactrim DS [facility] 23467062575 800-160 MG December Active 1 tablet Orally Twice a 2018 Vitamin E [facility] 86[address]-13420 Active not defined Cranberry [facility] [address]-23784 Active not defined Concentrate Rosuvastatin [facility] 55390563881 40 Active TAKE 1 TABLET Calcium BY MOUTH DAILY Cyanocobalamin [facility] [address]-20 1000 MCG/15ML Active 15 ml Orally Once a day Tylenol Arthritis ND 0 Active not defined Pain Valsartan [facility] 04224779205 160 MG Orally Active 1 tablet Once a day Bactrim DS [facility] 53760240085 800-160 MG January Active 1 tablet Orally Twice a , 2017 Crestor [facility] 30999873558 40 MG Active 1 EACH ONCE A DAY Multivitamin [facility] 09168-18280 Active not defined Probiotic [facility] 38[address]54 Active not defined Plavix [facility] 27252041040 75 MG Orally Active 1 tablet Once a day HydrALAZINE HCl [facility] 39195242896 100 MG Orally December 05, Active as directed Three times a 2017 day Toviaz [facility] 01421169550 8 MG Orally Active 1 tablet Once a day Verapamil HCl [facility] [address]-09 Active not defined Omeprazole [facility] 04924812032 40 Active TAKE 1 CAPSULE BY MOUTH EVERY DAY Fluconazole ND 47923159814 150 MG Orally Sep 15, Active 1 tablet one tab a week 2019 today and may repeat one tab in 1 week if no improvement Estradiol [facility] 43884027517 0.1 MG/GM January Active as directed Vaginal Two 22, times a Week 2018 Metformin HCl [facility] 75734106600 500 Active TAKE 1 TABLET BY MOUTH TWICE DAILY Omeprazole [facility] 78364217725 40 MG orally Active 1 EACH ONCE A daily in AM DAY Eliquis [facility] 70531587576 5 MG Orally Active 1 tablet twice a day Sertraline HCl [facility] 73484920387 25 MG Orally Active 1 tablet Once a day Carvedilol ND 72123943113 25 MG Orally Active as directed Vitamin D3 [facility] 84989321917 1000 UNIT Active 1 capsule Orally Once a day Amlodipine [facility] 27634346510 10 MG Orally Active 1 tablet Besylate Once a day Coreg [facility] 31636628143 25 MG Orally Active not defined HydrALAZINE HCl [facility] 48848239538 100 MG Orally Active 1 tablet with Three times a food day Irbesartan [facility] 29864581550 150 MG Orally Active 1 tablet Once a day Results No Known Results Summary Purpose eClinicalWorks Submission
--- OUTSIDE RECORDS SUMMARY | 2019-07-19 16:09 | XMS REPORT ---
:1935 Author Organization eClinicalWorks Care Team Providers Name Role Phone Britt, Na Provider Role Unavailable Allergies No Known Allergies Problems Problem Type Condition Code Onset Dates Condition Status Assessment Memory change R41.3 Active Assessment Chronic a-fib I48.2 Active Assessment Hyperlipidemia E78.5 Active Assessment Mild depression F32.0 Active Assessment Acquired hypothyroidism E03.9 Active Assessment Hypertension I10 Active Assessment Type 2 diabetes E11.9 Active Problem Recurrent urinary tract infection N39.0 [...] G89.29 Active Problem Memory change R41.3 Active Assessment Stress at home F43.9 Active Problem Hyperlipidemia E78.5 Active Assessment Weakness R53.1 Active Problem Abnormal mammogram R92.8 Active Assessment Positive colorectal cancer R19.5 Active screening using Cologuard test Problem Hypertension I10 Active Assessment Chronic fatigue R53.82 Active Problem Allergic rhinitis J30.9 Active Problem Other speech disturbance R47.89 Active Problem Stenosis of left carotid artery I65.22 Active Problem Type 2 diabetes E11.9 Active Problem 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 Active Medications Medication Code Code Instructions Start End Status Dosage System Date Date Levothyroxine [facility] 29903033896 125 MCG Orally Active 1 tablet Sodium Once a day in the morning on an empty stomach Cranberry [facility] [address] 425 MG Orally Active 1 capsule Concentrate with meals Plavix ND 81373933627 75 MG Orally Active 1 tablet Once a day Eliquis [facility] 18582894022 5 MG Orally Active 1 tablet twice a day Rosuvastatin [facility] 58723914395 40 Active TAKE 1 Calcium TABLET BY MOUTH DAILY Levetiracetam [facility] 10034609837 250 MG Orally Active 1 tablet every 12 hrs Tylenol Arthritis ND 0 Active not Pain defined Vitamin B-12 [facility] 47[address]87 Active not defined Estradiol [facility] 63856684428 0.1 MG/GM January Active as Vaginal Two , directed times a Week 2018 Irbesartan [facility] 70702990728 150 MG Orally Active 1 tablet Once a day Metformin HCl [facility] 49931467493 500 MG Orally Active 1 tablet Twice a day with meals Amlodipine [facility] 27624021881 10 MG Orally Active 1 tablet Besylate Once a day Carvedilol [facility] 98106957872 25 MG Orally Active as directed Omeprazole [facility] 10451983915 40 MG orally Active 1 EACH daily in AM ONCE A DAY Sertraline HCl [facility] 81041587857 25 MG Orally Active 1 tablet Once a day HydrALAZINE HCl [facility] 93610735441 100 MG Orally Active 1 tablet Three times a with food day HydrALAZINE HCl [facility] 74838637124 100 MG Orally December 05, Active as Three times a 2017 directed day Cyanocobalamin [facility] [address]-80 1000 MCG/15ML Active 15 ml Orally Once a day Omeprazole [facility] 54917453391 40 Active TAKE 1 CAPSULE BY MOUTH EVERY DAY Crestor [facility] 52319290809 40 MG Active 1 EACH ONCE A DAY Vitamin E [facility] 59991592246 400 UNIT Orally Active not defined Coreg [facility] 46150280342 25 MG Orally Active not defined Vitamin D3 [facility] 94116812603 1000 UNIT Active 1 capsule Orally Once a day Metformin HCl [facility] 21662898056 500 Active TAKE 1 TABLET BY MOUTH TWICE DAILY Multivitamin [facility] 48650-31850 Active not defined Probiotic [facility] 90956958066 - Orally Active not defined Magnesium [facility] 37096058340 500 MG Orally Active not defined Results No Known Results Summary Purpose eClinicalWorks Submission
--- OUTSIDE RECORDS SUMMARY | 2019-07-19 16:09 | XMS REPORT ---
[...] End Status Dosage System Date Date Toviaz [facility] 37735115682 8 MG Orally Active 1 tablet Once a day Valsartan [facility] 13527554416 160 MG Orally Active 1 tablet Once a day Tylenol Arthritis NDC 0 Active not defined Pain Metformin HCl [facility] 77357205947 500 MG Orally Active 1 tablet with Twice a day meals Estradiol [facility] 49574431934 0.1 MG/GM January Active as directed Vaginal Two 22, times a Week [address] [facility] 41079-[address] Active not defined Cranberry [facility] [address]-99137 Active not defined Concentrate Bactrim DS ND 09720995867 800-160 MG December Active 1 tablet Orally Twice a [address]oc[address] [facility] [address]-13 1000 MCG/15ML Active 15 ml Orally Once a day HydrALAZINE HCl [facility] 30557884787 100 MG Orally December 05, Active as directed Three times a 2017 day Eliquis [facility] 90224857489 5 MG Orally Active 1 tablet twice a day Omeprazole [facility] 24679544815 40 Active TAKE 1 CAPSULE BY MOUTH EVERY DAY Levothyroxine [facility] [address]-58 Active not defined Sodium Verapamil HCl [facility] [address]-49 Active not defined Irbesartan [facility] 83894958490 150 MG Orally Active 1 tablet Once a day Sertraline HCl [facility] 67657967832 25 Orally Once Active 1 tablet a day Bactrim DS [facility] 12699534058 800-160 MG January Active 1 tablet Orally Twice a [address] [facility] 04706-29431 Active not defined Sertraline HCl [facility] 12327709105 25 MG Orally Active 1 tablet Once a day Metformin HCl [facility] 55389940187 500 Active TAKE 1 TABLET BY MOUTH TWICE DAILY Vitamin B-[address] [facility] 84291-90753 Active not defined Levetiracetam [facility] 20268447710 250 MG Orally Active 1 tablet every 12 hrs Amlodipine [facility] 06009196374 10 MG Orally Active 1 tablet Besylate Once a day Magnesium ND 0 Active not defined HydrALAZINE HCl [facility] 20192364392 100 MG Orally Active 1 tablet with Three times a food day Carvedilol [facility] 91033090840 25 MG Orally Active as directed Vitamin E [facility] 38[address]89 Active not defined Coreg [facility] 60404008951 25 MG Orally Active not defined Vitamin D3 [facility] 00152013058 1000 UNIT Active 1 capsule Orally Once a day Ranitidine [facility] 16313995614 Active not defined Rosuvastatin [facility] 22984565037 40 Active TAKE 1 TABLET Calcium BY MOUTH DAILY Plavix [facility] 05695847032 75 MG Orally Active 1 tablet Once a day Omeprazole [facility] 84452071593 40 MG orally Active 1 EACH ONCE A daily in AM DAY Fluconazole [facility] 38859802361 150 MG Orally Sep 15, Active 1 tablet one tab a week 2019 today and may repeat one tab in 1 week if no improvement Crestor [facility] 46477571997 40 MG Active 1 EACH ONCE A DAY Results No Known Results Summary Purpose eClinicalWorks Submission
[2019-07-19 17:48] LABS: Urine Bacteria <20 /HPF (<20); Urine Culture Reflex Order NOT NEEDED; Urine RBC <5 /HPF (NONE SEEN)
[2019-07-19 17:48] LABS: Urine Blood NEGATIVE (NEG); Urine Glucose NEGATIVE (NEG); Urine Protein NEGATIVE (NEG); Urine Specific Gravity 1.015 (1.005-1.030)
[2019-07-19 18:35] LABS: Absolute Lymphocytes (CBC) 2.3 K/uL (0.7-4.9); Basophils % 0.6 % (0-1.3); Hematocrit 36.6 % (36.0-45.0); Lymphocytes % 33.9 % (15.3-44.8); MPV 8.3 fL (7.6-11.3); RBC Red Blood Cell Count 3.85 M/uL (3.86-4.86)
[2019-07-19 18:38] LABS: Protime INR 1.07
[2019-07-19 18:54] LABS: ALT/SGPT 27 U/L (12-78); AST/SGOT 18 U/L (15-37); Albumin 3.7 g/dL (3.4-5.0); Alkaline Phosphatase 101 U/L (45-117); BUN Blood Urea Nitrogen 10 mg/dL (7-18); Bicarbonate 30 mmol/L (21-32); Bilirubin Direct 0.2 mg/dL (0-0.2); Bilirubin Total 0.5 mg/dL (0.2-1.0); Glucose Level 136 mg/dL (74-106); Magnesium 2.4 mg/dL (1.8-2.4); NT PRO-BNP 1643 pg/mL (<450); Potassium 4.2 mmol/L (3.5-5.1); Protein, Total 7.1 g/dL (6.4-8.2); Sodium Level 138 mmol/L (136-145); Troponin (Emerg Dept Use Only) < 0.02 ng/mL (0.0-0.045)
--- NOTE | 2019-07-19 19:44 | ER ---
Nurse's Notes [facility] Name: Radha Lara Age: 84 yrs Sex: Female : 1935 Arrival Date: 07/19/2019 Time: 16:08 Bed 16 Private MD: Elli Britt Diagnosis: Viral infection, unspecified Presentation: 07/19 16:29 Presenting complaint: Patient states: started feeling bad yesterday and it got worse bp around 0400 today. Pt states she is nauseated but hasn't really thrown up other than some phlegm. Transition of care: patient was not received from another setting of care. Onset of symptoms was July 18, 2019. 16:29 Method Of Arrival: Ambulatory bp 16:29 Acuity: YOLANDE 3 bp 20:54 Risk Assessment: Do you want to hurt yourself or someone else? Patient reports no lc1 desire to harm self or others. Initial Sepsis Screen: Does the patient meet any 2 criteria? No. Patient's initial sepsis screen is negative. Does the patient have a suspected source of infection? No. Patient's initial sepsis screen is negative. Care prior to arrival: None. Triage Assessment: 19:30 General: Appears Behavior is calm, cooperative. lc1 Historical: - Allergies: 16:40 Aspirin; bp 16:40 Codeine; bp 16:40 Zoloft; bp 16:40 vicoden; bp 16:40 nitrous oxide; bp 16:40 Nitrofurantoin; bp 16:40 Niacin; bp 16:40 Lisinopril; bp 16:40 Clonidine; bp 16:40 Ibuprofen; bp 16:40 Iodinated Contrast Media - IV Dye; bp - Home Meds: 16:40 carvedilol 25 mg Oral tab 1 tab 2 times per day [Active]; irbesartan 150 mg Oral tab 1 bp tab once daily [Active]; amlodipine 5 mg tab 1 tab once daily for Hypertension [Active]; hydralazine 100 mg Oral tab 3 times per day [Active]; Eliquis 5 mg Oral tab 2 times per day [Active]; metformin 500 mg Oral Tb24 1 tab 2 times per day [Active]; omeprazole 40 mg Oral cpDR 1 cap once daily [Active]; Crestor 40 mg Oral tab once daily [Active]; Plavix 75 mg Oral tab 1 tab once daily [Active]; levothyroxine 75 mcg tab 1 tab once daily [Active]; cranberry Oral twice a day [Active]; Probiotic Oral [Active]; Multiple Vitamins Oral tab daily [Active]; magnesium oxide 500 mg Oral cap [Active]; furosemide 40 mg Oral tab as needed [Active]; Vitamin B-12 2,000 mcg Oral TbER daily [Active]; Vitamin D3 1,000 unit Oral chew daily [Active]; vitamin E Oral once daily [Active]; - PMHx: 16:40 UTI; ADD/ADHD; acid reflux; Atrial Fib; CVA; Diabetes - NIDDM; Hyperlipidemia; bp Hypertension; Kidney stones; PE; Sleep Apnea; TIA; - PSHx: 16:40 CABG; Heart stents; Tonsillectomy; Hysterectomy; bp - Immunization history:: Adult Immunizations up to date. - Social history:: Smoking status: Patient/guardian denies using tobacco. - Ebola Screening: : No symptoms or risks identified at this time. Screenin:30 Abuse screen: Denies threats or abuse. Denies injuries from another. Nutritional bp screening: No deficits noted. Tuberculosis screening: No symptoms or risk factors identified. Fall Risk No fall in past 12 months (0 pts). Secondary diagnosis (15 points) CVA, No IV (0 pts). Ambulatory Aid- None/Bed Rest/Nurse Assist (0 pts). Gait- Normal/Bed Rest/Wheelchair (0 pts) Mental Status- Oriented to own ability (0 pts). Total Glez Fall Scale indicates No Risk (0-24 pts). Assessment: 16:30 General: SEE TRIAGE NOTE. Pain: Denies pain. GI: Reports diarrhea. bp 17:30 Reassessment: ALL CURRENT ORDERS COMPLETED, VS STABLE. bp 18:30 Reassessment: ADDITIONAL ORDERS COMPLETED, RESULTS PENDING. NO ACUTE S/S AT THIS TIME. bp 20:51 General: Behavior is calm, cooperative. lc1 Vital Signs: 16:31 BP 174 / 62; Pulse 62; Resp 20; Temp 98.1(O); Pulse Ox 98% on R/A; Weight 60.78 kg; bp Height 5 ft. 2 in. (157.48 cm); 17:30 BP 154 / 66; Pulse 59; Resp 17; Pulse Ox 96% ; bp 18:30 BP 129 / 75; Pulse 59; Resp 16; Pulse Ox 100% ; bp 19:30 BP 155 / 54; Pulse 57; Resp 20; Pulse Ox 100% on R/A; lc1 20:00 BP 153 / 73; Pulse 65; Resp 18; Pulse Ox 97% on R/A; lc1 16:31 Body Mass Index 24.51 (60.78 kg, 157.48 cm) bp ED Course: 16:08 Patient arrived in ED. rg4 16:09 Elli Britt MD is Private Physician. rg4 16:22 Julian Castro, RN is Primary Nurse. bp 16:30 Patient has correct armband on for positive identification. Bed in low position. Call bp light in reach. Side rails up X2. Adult w/ patient. 16:31 Triage completed. bp 16:40 Arm band placed on. bp 16:54 Bessei Maynard FNP-C is PHCP. snw 16:54 Chris Hammond MD is Attending Physician. snw 18:06 XRAY Chest (1 view) In Process Unspecified. EDMS 18:25 Inserted saline lock: 20 gauge in left forearm, using aseptic technique. Blood bp collected. 19:41 Elli Britt MD is Referral Physician. snw 19:42 Referral Physician role handed off by Elli Britt MD snw 19:42 Elli Britt MD is Referral Physician. snw 20:00 No provider procedures requiring assistance completed. IV discontinued, intact, lc1 bleeding controlled, Pressure dressing applied. Administered Medications: 20:16 Drug: Tylenol 1000 mg Route: PO; lc1 20:50 Follow up: Response: No adverse reaction 1 Outcome: 19:43 Discharge ordered by . snw 20:00 Discharged to home ambulatory. lc1 20:00 Condition: good 20:00 Discharge instructions given to patient, Instructed on discharge instructions, follow up and referral plans. Demonstrated understanding of instructions, follow-up care. 20:38 Patient left the ED. lc1 Signatures: Dispatcher [employer] EDMS Bessie Maynard FNP-C FISH SEINER-Csnw Johanna Umaña lc1 Mirella Kong rg4 Julian Castro, RN RN bp Corrections: (The following items were deleted from the chart) 20:54 20:53 General: Appears Behavior is calm, cooperative, lc1 lc1
--- NOTE | 2019-07-19 19:45 | EDPHYS ---
Physician Documentation [facility] Name: Radha Lara Age: 84 yrs Sex: Female : 1935 Arrival Date: 07/19/2019 Time: 16:08 Bed 16 Private MD: Elli Britt ED Physician Chris Hammond HPI: 07/19 19:49 This 84 yrs old Female presents to ER via Ambulatory with complaints of snw Diarrhea, Chills. 19:49 The patient presents to the emergency department with nausea, diarrhea. Onset: The snw symptoms/episode began/occurred 3 day(s) ago, and became persistent. Possible causes: unknown. The symptoms are aggravated by nothing. The symptoms are alleviated by nothing. Severity of symptoms: At their worst the symptoms were moderate in the emergency department the symptoms are unchanged. It is unknown whether or not the patient has had similar symptoms in the past. It is unknown whether or not the patient has recently seen a physician. denies fever. Historical: - Allergies: 16:40 Aspirin; bp 16:40 Codeine; bp 16:40 Zoloft; bp 16:40 vicoden; bp 16:40 nitrous oxide; bp 16:40 Nitrofurantoin; bp 16:40 Niacin; bp 16:40 Lisinopril; bp 16:40 Clonidine; bp 16:40 Ibuprofen; bp 16:40 Iodinated Contrast Media - IV Dye; bp - Home Meds: 16:40 carvedilol 25 mg Oral tab 1 tab 2 times per day [Active]; irbesartan 150 mg Oral tab 1 bp tab once daily [Active]; amlodipine 5 mg tab 1 tab once daily for Hypertension [Active]; hydralazine 100 mg Oral tab 3 times per day [Active]; Eliquis 5 mg Oral tab 2 times per day [Active]; metformin 500 mg Oral Tb24 1 tab 2 times per day [Active]; omeprazole 40 mg Oral cpDR 1 cap once daily [Active]; Crestor 40 mg Oral tab once daily [Active]; Plavix 75 mg Oral tab 1 tab once daily [Active]; levothyroxine 75 mcg tab 1 tab once daily [Active]; cranberry Oral twice a day [Active]; Probiotic Oral [Active]; Multiple Vitamins Oral tab daily [Active]; magnesium oxide 500 mg Oral cap [Active]; furosemide 40 mg Oral tab as needed [Active]; Vitamin B-12 2,000 mcg Oral TbER daily [Active]; Vitamin D3 1,000 unit Oral chew daily [Active]; vitamin E Oral once daily [Active]; - PMHx: 16:40 UTI; ADD/ADHD; acid reflux; Atrial Fib; CVA; Diabetes - NIDDM; Hyperlipidemia; bp Hypertension; Kidney stones; PE; Sleep Apnea; TIA; - PSHx: 16:40 CABG; Heart stents; Tonsillectomy; Hysterectomy; bp - Immunization history:: Adult Immunizations up to date. - Social history:: Smoking status: Patient/guardian denies using tobacco. - Ebola Screening: : No symptoms or risks identified at this time. ROS: 19:48 Eyes: Negative for injury, pain, redness, and discharge, ENT: Negative for injury, snw pain, and discharge, Neck: Negative for injury, pain, and swelling, Cardiovascular: Negative for chest pain, palpitations, and edema, Respiratory: Negative for shortness of breath, cough, wheezing, and pleuritic chest pain, Back: Negative for injury and pain, : Negative for injury, bleeding, discharge, and swelling, MS/Extremity: Negative for injury and deformity, Skin: Negative for injury, rash, and discoloration, Neuro: Negative for headache, weakness, numbness, tingling, and seizure. 19:48 Constitutional: Positive for fatigue, malaise, poor PO intake. 19:48 Abdomen/GI: Positive for nausea, diarrhea. Exam: 19:48 Head/Face: Normocephalic, atraumatic. Eyes: Pupils equal round and reactive to light, snw extra-ocular motions intact. Lids and lashes normal. Conjunctiva and sclera are non-icteric and not injected. Cornea within normal limits. Periorbital areas with no swelling, redness, or edema. ENT: Nares patent. No nasal discharge, no septal abnormalities noted. Tympanic membranes are normal and external auditory canals are clear. Oropharynx with no redness, swelling, or masses, exudates, or evidence of obstruction, uvula midline. Mucous membranes moist. Neck: Trachea midline, no thyromegaly or masses palpated, and no cervical lymphadenopathy. Supple, full range of motion without nuchal rigidity, or vertebral point tenderness. No Meningismus. Chest/axilla: Normal chest wall appearance and motion. Nontender with no deformity. No lesions are appreciated. Cardiovascular: Regular rate and rhythm with a normal S1 and S2. No gallops, murmurs, or rubs. Normal PMI, no JVD. No pulse deficits. Respiratory: Lungs have equal breath sounds bilaterally, clear to auscultation and percussion. No rales, rhonchi or wheezes noted. No increased work of breathing, no retractions or nasal flaring. Abdomen/GI: Soft, non-tender, with normal bowel sounds. No distension or tympany. No guarding or rebound. No evidence of tenderness throughout. Back: No spinal tenderness. No costovertebral tenderness. Full range of motion. Skin: Warm, dry with normal turgor. Normal color with no rashes, no lesions, and no evidence of cellulitis. MS/ Extremity: Pulses equal, no cyanosis. Neurovascular intact. Full, normal range of motion. Neuro: Awake and alert, GCS 15, oriented to person, place, time, and situation. Cranial nerves II-XII grossly intact. Motor strength 5/5 in all extremities. Sensory grossly intact. Cerebellar exam normal. Normal gait. Psych: Awake, alert, with orientation to person, place and time. Behavior, mood, and affect are within normal limits. 19:48 Constitutional: The patient appears alert, frail, uncomfortable. Vital Signs: 16:31 BP 174 / 62; Pulse 62; Resp 20; Temp 98.1(O); Pulse Ox 98% on R/A; Weight 60.78 kg; bp Height 5 ft. 2 in. (157.48 cm); 17:30 BP 154 / 66; Pulse 59; Resp 17; Pulse Ox 96% ; bp 18:30 BP 129 / 75; Pulse 59; Resp 16; Pulse Ox 100% ; bp 19:30 BP 155 / 54; Pulse 57; Resp 20; Pulse Ox 100% on R/A; lc1 20:00 BP 153 / 73; Pulse 65; Resp 18; Pulse Ox 97% on R/A; lc1 16:31 Body Mass Index 24.51 (60.78 kg, 157.48 cm) bp MDM: 16:55 Patient medically screened. snw 19:49 Data reviewed: vital signs, nurses notes. Data interpreted: Pulse oximetry: on room air snw is 100 %. Interpretation: normal. Counseling: I had a detailed discussion with the patient and/or guardian regarding: the historical points, exam findings, and any diagnostic results supporting the discharge/admit diagnosis, lab results, radiology results, the need for outpatient follow up, to return to the emergency department if symptoms worsen or persist or if there are any questions or concerns that arise at home. Special discussion: Based on the patient's Hx, exam, and Dx evaluation, there is no indication for emergent surgery or inpatient Tx. It is understood by the patient/guardian that if the Sx's persist or worsen they need to return immediately for re-evaluation. Based on the history and exam findings, there is no indication for further emergent testing or inpatient evaluation. I discussed with the patient/guardian the need to see the primary care provider for further evaluation of the symptoms. 07/19 17:12 Order name: Flu; Complete Time: 17:50 snw 07/19 17:12 Order name: Urine Culture snw 07/19 17:12 Order name: Urine Microscopic Only; Complete Time: 17:50 snw 07/19 17:39 Order name: Urine Dipstick--Ancillary (enter results); Complete Time: 17:50 eb 07/19 17:55 Order name: Basic Metabolic Panel; Complete Time: 18:58 snw 07/19 17:55 Order name: CBC with Diff; Complete Time: 18:58 snw 07/19 17:55 Order name: LFT's; Complete Time: 18:58 snw 07/19 17:55 Order name: Magnesium; Complete Time: 18:58 snw 07/19 17:55 Order name: NT PRO-BNP; Complete Time: 18:58 snw 07/19 17:55 Order name: PT-INR; Complete Time: 18:58 snw 07/19 17:55 Order name: Troponin (emerg Dept Use Only); Complete Time: 18:58 snw 07/19 17:55 Order name: XRAY Chest (1 view); Complete Time: 20:12 snw 07/19 17:55 Order name: EKG; Complete Time: 17:56 snw 07/19 17:12 Order name: Urine Dipstick-Ancillary (obtain specimen); Complete Time: 17:40 snw 07/19 17:55 Order name: Cardiac monitoring; Complete Time: 18:24 snw 07/19 17:55 Order name: EKG - Nurse/Tech; Complete Time: 18:24 snw 07/19 17:55 Order name: IV Saline Lock; Complete Time: 18:26 snw 07/19 17:55 Order name: Labs collected and sent; Complete Time: 18:26 snw 07/19 17:55 Order name: O2 Per Protocol; Complete Time: 17:59 snw 07/19 17:55 Order name: O2 Sat Monitoring; Complete Time: 17:59 snw Administered Medications: 20:16 Drug: Tylenol 1000 mg Route: PO; lc1 20:50 Follow up: Response: No adverse reaction lc1 Disposition: 07/20 05:55 Co-signature as Attending Physician, Chris Hammond MD I agree with the assessment and rn plan of care. Disposition: 07/19/19 19:43 Discharged to Home. Impression: Viral infection, unspecified. - Condition is Stable. - Discharge Instructions: Food Choices to Help Relieve Diarrhea, Adult, Muscle Pain, Adult, Viral Gastroenteritis, Adult, Rehydration, Elderly, [place] Diet. - Medication Reconciliation Form, Thank You Letter, Antibiotic Education, Prescription Opioid Use form. - Follow up: Elli Britt MD; When: 2 - 3 days; Reason: Recheck today's complaints, Continuance of care, Re-evaluation by your physician. Follow up: Emergency Department; When: As needed; Reason: Worsening of condition. Follow up: Elli Britt MD; When: 1 - 2 days; Reason: Recheck today's complaints, Continuance of care, Re-evaluation by your physician. Signatures: Dispatcher [employer] EDNJ Bessie Maynard, CRAFT ARTIST-C CRAFT ARTIST-Csnw Chris Hammond MD MD rn Calhoun, Lisa lc1 Julian Castro, RN RN bp Corrections: (The following items were deleted from the chart) 07/19 17:40 17:12 Humphries ordered. w bp 20:38 19:43 07/19/2019 19:43 Discharged to Home. Impression: Viral infection, unspecified. lc1 Condition is Stable. Forms are Medication Reconciliation Form, Thank You Letter, Antibiotic Education, Prescription Opioid Use. Follow up: Emergency Department; When: As needed; Reason: Worsening of condition. Follow up: Elli Britt; When: 1 - 2 days; Reason: Recheck today's complaints, Continuance of care, Re-evaluation by your physician. w
[2019-07-19] MEDS ORDERED: ACETAMINOPHEN 500 MG TAB ONE (19:48)
--- NOTE | 2019-07-19 20:07 | RAD REPORT ---
EXAM DESCRIPTION: RAD - Chest Single View - 07/19/2019 6:05 pm CLINICAL HISTORY: Weakness COMPARISON: May 23 TECHNIQUE: AP portable chest image was obtained 1801 hours . FINDINGS: No focal mass or consolidation. Vasculature and lung markings are fractionally increased o yash comparison. Heart size is prominent but stable. Sternotomy wires are in place. Surgical clips are present. No measurable pleural effusion and no pneumothorax. No acute bony abnormality seen. No acut e aortic findings suspected. IMPRESSION: No peripheral mass or consolidation. Prominent vasculature and lung markings suggestive of mild failure or volume overload.
[2019-07-19 21:50] VITALS: TEMP 98.1
[2019-07-19 21:52] VITALS: BP 129/75; O2SAT 100
--- NOTE | 2019-07-20 13:49 | EKG ---
Test Date: 2019-07-19 Test Time: 18:10:40 Group Insurance Specialist: JOSE MEASUREMENT RESULTS: Intervals: Rate: 76 [place]: QRSD: 98 QT: 402 QTc: 452 [place]: P: [place]: QRS: 3 T: 69 INTERPRETIVE STATEMENTS: Atrial fibrillation Septal infarct, age undetermined Abnormal ECG Compared to ECG 05/23/2019 05:07:04 Ventricular premature complex(es) no longer present Myocardial infarct finding still present Electronically Signed On 07-20-19 13:46:33 TEST FIXTURE DESIGNER by Jass Lance
== END 2019-07-19 20:38 | disposition home or self-care (01) ==
LOC: ER 16:05
DX: B34.9 Viral infection, unspecified (principal); I10 Essential (primary) hypertension; E11.9 Type 2 diabetes mellitus without complications; E78.5 Hyperlipidemia, unspecified; Z79.01 Long term (current) use of anticoagulants; Z79.02 Long term (current) use of antithrombotics/antiplatelets; Z88.8 Allergy status to other drugs, medicaments and biological substances; Z88.5 Allergy status to narcotic agent; Z88.6 Allergy status to analgesic agent; Z91.041 Radiographic dye allergy status; Z95.1 Presence of aortocoronary bypass graft; Z95.818 Presence of other cardiac implants and grafts
CPT/HCPCS: 36415; 71045; 80048; 80076; 81003; 81015; 83735; 83880; 84484; 85025; 85610; 87086; 87088; 87804; 93005; 99284

== ENCOUNTER 2019-08-04 15:10 | Emergency (ER) | payer OTHER ==
--- OUTSIDE RECORDS SUMMARY | 2019-08-04 15:14 | XMS REPORT ---
[...] End Status Dosage System Date Date Toviaz [facility] 53689504235 8 MG Orally Active 1 tablet Once a day Valsartan [facility] 78925401868 160 MG Orally Active 1 tablet Once a day Tylenol Arthritis NDC 0 Active not defined Pain Metformin HCl [facility] 72651823542 500 MG Orally Active 1 tablet with Twice a day meals Estradiol [facility] 34598010899 0.1 MG/GM January Active as directed Vaginal Two 22, times a Week 2018 Probiotic [facility] 04756-62063 Active not defined Cranberry [facility] 64[address]563 Active not defined Concentrate Bactrim DS ND 35026566557 800-160 MG December Active 1 tablet Orally Twice a 2018 Cyanocobalamin [facility] [address]-96 1000 MCG/15ML Active 15 ml Orally Once a day HydrALAZINE HCl [facility] 80185010352 100 MG Orally December 05, Active as directed Three times a 2017 day Eliquis [facility] 36566049656 5 MG Orally Active 1 tablet twice a day Omeprazole [facility] 29479805798 40 Active TAKE 1 CAPSULE BY MOUTH EVERY DAY Levothyroxine [facility] [address]-03 Active not defined Sodium Verapamil HCl [facility] [address]-61 Active not defined Irbesartan [facility] 08339444520 150 MG Orally Active 1 tablet Once a day Sertraline HCl [facility] 42502344382 25 Orally Once Active 1 tablet a day Bactrim DS [facility] 55509657651 800-160 MG January Active 1 tablet Orally Twice a 2017 Multivitamin [facility] 94271-19838 Active not defined Sertraline HCl [facility] 96156913927 25 MG Orally Active 1 tablet Once a day Metformin HCl [facility] 34538086444 500 Active TAKE 1 TABLET BY MOUTH TWICE DAILY Vitamin B-12 [facility] 93934-96916 Active not defined Levetiracetam [facility] 14097311559 250 MG Orally Active 1 tablet every 12 hrs Amlodipine [facility] 47282932414 10 MG Orally Active 1 tablet Besylate Once a day Magnesium ND 0 Active not defined HydrALAZINE HCl [facility] 55348838836 100 MG Orally Active 1 tablet with Three times a food day Carvedilol [facility] 57993444616 25 MG Orally Active as directed Vitamin E [facility] 42865-59193 Active not defined Coreg [facility] 99352839874 25 MG Orally Active not defined Vitamin D3 [facility] 41363927272 1000 UNIT Active 1 capsule Orally Once a day Ranitidine [facility] 51010270326 Active not defined Rosuvastatin [facility] 68748913848 40 Active TAKE 1 TABLET Calcium BY MOUTH DAILY Plavix [facility] 15379521647 75 MG Orally Active 1 tablet Once a day Omeprazole [facility] 06100677696 40 MG orally Active 1 EACH ONCE A daily in AM DAY Fluconazole [facility] 77855894291 150 MG Orally Sep 15, Active 1 tablet one tab a week 2019 today and may repeat one tab in 1 week if no improvement Crestor [facility] 70374364214 40 MG Active 1 EACH ONCE A DAY Results No Known Results Summary Purpose eClinicalWorks Submission
--- OUTSIDE RECORDS SUMMARY | 2019-08-04 15:14 | XMS REPORT ---
[...] End Status Dosage System Date Date Levothyroxine [facility] 64949311686 125 MCG Orally Active 1 tablet Sodium Once a day in the morning on an empty stomach Cranberry [facility] [address] 425 MG Orally Active 1 capsule Concentrate with meals Plavix ND 08908675322 75 MG Orally Active 1 tablet Once a day Eliquis [facility] 45643922737 5 MG Orally Active 1 tablet twice a day Rosuvastatin [facility] 72012783134 40 Active TAKE 1 Calcium TABLET BY MOUTH DAILY Levetiracetam [facility] 43788991923 250 MG Orally Active 1 tablet every 12 hrs Tylenol Arthritis ND 0 Active not Pain defined Vitamin B-12 [facility] 91850-91247 Active not defined Estradiol [facility] 36717319454 0.1 MG/GM January Active as Vaginal Two , directed times a Week 2018 Irbesartan [facility] 89498084706 150 MG Orally Active 1 tablet Once a day Metformin HCl [facility] 98665608227 500 MG Orally Active 1 tablet Twice a day with meals Amlodipine [facility] 53121801241 10 MG Orally Active 1 tablet Besylate Once a day Carvedilol [facility] 44293188370 25 MG Orally Active as directed Omeprazole [facility] 54310863051 40 MG orally Active 1 EACH daily in AM ONCE A DAY Sertraline HCl [facility] 93956640480 25 MG Orally Active 1 tablet Once a day HydrALAZINE HCl [facility] 82835501427 100 MG Orally Active 1 tablet Three times a with food day HydrALAZINE HCl [facility] 62791380172 100 MG Orally December 05, Active as Three times a 2017 directed day Cyanocobalamin [facility] [address]-12 1000 MCG/15ML Active 15 ml Orally Once a day Omeprazole [facility] 46660744441 40 Active TAKE 1 CAPSULE BY MOUTH EVERY DAY Crestor [facility] 83670782514 40 MG Active 1 EACH ONCE A DAY Vitamin E [facility] 79782278519 400 UNIT Orally Active not defined Coreg [facility] 62028056954 25 MG Orally Active not defined Vitamin D3 [facility] 95845878349 1000 UNIT Active 1 capsule Orally Once a day Metformin HCl [facility] 07663586204 500 Active TAKE 1 TABLET BY MOUTH TWICE DAILY Multivitamin [facility] 86254-05631 Active not defined Probiotic [facility] 28452116121 - Orally Active not defined Magnesium [facility] 15461196938 500 MG Orally Active not defined Results No Known Results Summary Purpose eClinicalWorks Submission
--- OUTSIDE RECORDS SUMMARY | 2019-08-04 15:14 | XMS REPORT ---
:1935 [facility] Address [facility] [place] [address] Care Team Providers Name Role Phone LARISSA [...] for FINAL REPORT PATIENT ID: BRAIN exam:->stroke [id number] CLINICAL HISTORY: TIA TECHNIQUE: Initially, noncontrast head [...] intact. There is no evidence for a saxman of Lawson proximal branch vessel occlusion. Mild [...] artery stenosis, unchanged. No evidence for a saxman of Lawson proximal branch vessel occlusion. Signed: Alexa Koch MDReport Verified Date/Time: 05/01/2019 10:58:29 Reading Location: [facility] C013V Neuro Reading Room , CAROTID, 2019-05-01 10:58:00 Reason for exam:->eval FINAL REPORT PATIENT ID: ANGIO for TIA [id number] CLINICAL HISTORY: TIA TECHNIQUE: Initially, noncontrast head [...] intact. There is no evidence for a saxman of Lawson proximal branch vessel occlusion. Mild [...] artery stenosis, unchanged. No evidence for a saxman of Lawson proximal branch vessel occlusion. Signed: Alexa Koch MDReport Verified Date/Time: 05/01/2019 10:58:29 Reading Location: [facility] C013V Neuro Reading Room C METABOLIC PANEL 2019-05-01 06:04:00 Test Item Value Reference Range Comments SODIUM (BEAKER) (test 133 meq/L 136-145 jnyu=488) POTASSIUM (BEAKER) (test 4.3 meq/L 3.5-5.1 stfd=624) CHLORIDE (BEAKER) (test 104 meq/L 98-107 xlje=580) CO2 (BEAKER) (test kzvg=122) 24 meq/L 22-29 BLOOD UREA NITROGEN (BEAKER) 8 mg/dL 7-21 (test wvsh=652) CREATININE (BEAKER) (test 0.63 mg/dL 0.57-1.25 hvzc=992) GLUCOSE RANDOM (BEAKER) 105 mg/dL 70-105 (test xtjh=446) CALCIUM (BEAKER) (test 8.8 mg/dL 8.4-10.2 whes=971) EGFR (BEAKER) (test 90 mL/min/1.73 sq m ESTIMATED GFR IS NOT ztjj=5451) ACCURATE CREATININE CLEARANCE IN PREDICTING GLOMERULAR FILTRATION RATE. ESTIMATED GFR IS NOT APPLICABLE FOR DIALYSIS PATIENTS. CBC (HEMOGRAM ONLY)2019-05-01 04:59:00 Test Item Value Reference Range Comments WHITE BLOOD CELL COUNT (BEAKER) (test ybmb=721) 7.4 K/ L 3.5-10.5 RED BLOOD CELL COUNT (BEAKER) (test ysvc=220) 3.56 M/ L 3.93-5.22 HEMOGLOBIN (BEAKER) (test nmpb=781) 11.3 GM/DL 11.2-15.7 HEMATOCRIT (BEAKER) (test lpcv=992) 33.9 % 34.1-44.9 MEAN CORPUSCULAR VOLUME (BEAKER) (test lqau=855) 95.2 fL 79.4-94.8 MEAN CORPUSCULAR HEMOGLOBIN (BEAKER) (test 31.7 pg 25.6-32.2 gjdc=581) MEAN CORPUSCULAR HEMOGLOBIN CONC (BEAKER) (test 33.3 GM/DL 32.2-35.5 zkmr=839) RED CELL DISTRIBUTION WIDTH (BEAKER) (test 12.0 % 11.7-14.4 xcyl=101) PLATELET COUNT (BEAKER) (test qptv=891) 170 K/CU MM 150-450 MEAN PLATELET VOLUME (BEAKER) (test oaos=375) 9.6 fL 9.4-12.3 NUCLEATED RED BLOOD CELLS (BEAKER) (test 0 /100 WBC 0-0 cxvl=379) TROPONIN [id number] 20:18:00 Test Item Value Reference Range Comments TROPONIN I (BEAKER) (test ckqb=988) < ng/mL 0.00-0.03 Troponin I (TnI) levels [...] neurological disease, and persistent tachyarrhythmia.MR, BRAIN, WITHOUT [id number] 19 :07:00Reason for exam:->Ischemic Stroke EvaluationFINAL REPORT [...] Verified Date/ Time: 04/30/2019 19:07:03 Reading Location: [address] Neuro Reading Room HEMOGLOBIN [id number] 10:33:00 Test Item Value Reference Range Comments HEMOGLOBIN A1C (BEAKER) (test wblj=282) 6.6 % 4.3-6.1 FastingVITAMIN [id number] 09:00:00 Test Item Value Reference Range Comments VITAMIN B12 (BEAKER) (test ihml=889) 654 pg/mL 213-816 Add on please to morning labsAdd on to morning labsTSH/FREE T4 IF [id number] 09:00:00 Test Item Value Reference Range Comments THYROID STIMULATING HORMONE (BEAKER) (test 0.69 uIU/mL 0.35-4.94 zpkc=030) Add on please to morning labsAdd on to morning labsBASIC METABOLIC [id number] 07:30:00 Test Item Value Reference Range Comments SODIUM (BEAKER) (test 131 meq/L 136-145 istk=948) POTASSIUM (BEAKER) (test 4.2 meq/L 3.5-5.1 Specimen slightly yxyl=313) hemolyzed CHLORIDE (BEAKER) (test 99 meq/L 98-107 qswk=668) CO2 (BEAKER) (test 23 meq/L 22-29 xhwz=753) BLOOD UREA NITROGEN 10 mg/dL 7-21 (BEAKER) (test nxra=784) CREATININE (BEAKER) (test 0.67 mg/dL 0.57-1.25 Specimen slightly qyca=097) hemolyzed GLUCOSE RANDOM (BEAKER) 115 mg/dL 70-105 (test lquj=206) CALCIUM (BEAKER) (test 8.8 mg/dL 8.4-10.2 tecp=950) EGFR (BEAKER) (test 84 mL/min/1.73 sq m ESTIMATED GFR IS NOT ebgm=7889) ACCURATE CREATININE CLEARANCE IN PREDICTING GLOMERULAR FILTRATION RATE. ESTIMATED GFR IS NOT APPLICABLE FOR DIALYSIS PATIENTS. FastingLIPID [id number] 07:30:00 Test Item Value Reference Range Comments TRIGLYCERIDES (BEAKER) (test 57 mg/dL Specimen slightly hemolyzed cwwb=751) CHOLESTEROL (BEAKER) (test 83 mg/dL Specimen slightly hemolyzed rtjg=489) HDL CHOLESTEROL (BEAKER) (test 37 mg/dL mfkr=534) LDL CHOLESTEROL CALCULATED 35 mg/dL (BEAKER) (test knrr=823) Triglyceride Reference Range: Low Risk <150 Borderline 150- 199 High Risk 200-499 Very High Risk >=500Cholesterol Reference Range: Low Risk <200 Borderline 200-239 High Risk > 240HDL Cholesterol Reference Range: Low Risk >=60 High Risk <40LDL Cholesterol Reference Range: Optimal <100 Near Optimal 100-129 Borderline 130-159 High 160-189 Very High >=190 FastingTROPONIN [id number] 07:28:00 Test Item Value Reference Range Comments TROPONIN I (BEAKER) (test pdvx=905) < ng/mL 0.00-0.03 Troponin I (TnI) levels [...] and persistent tachyarrhythmia.FastingCBC W/PLT COUNT & AUTO [id number] 05:43:00 Test Item Value Reference Range Comments WHITE BLOOD CELL COUNT (BEAKER) (test bxvu=467) 7.9 K/ L 3.5-10.5 RED BLOOD CELL COUNT (BEAKER) (test xont=939) 3.40 M/ L 3.93-5.22 HEMOGLOBIN (BEAKER) (test blps=297) 10.6 GM/DL 11.2-15.7 HEMATOCRIT (BEAKER) (test sksy=857) 32.1 % 34.1-44.9 MEAN CORPUSCULAR VOLUME (BEAKER) (test rolq=656) 94.4 fL 79.4-94.8 MEAN CORPUSCULAR HEMOGLOBIN (BEAKER) (test 31.2 pg 25.6-32.2 vgjq=002) MEAN CORPUSCULAR HEMOGLOBIN CONC (BEAKER) (test 33.0 GM/DL 32.2-35.5 lelu=793) RED CELL DISTRIBUTION WIDTH (BEAKER) (test 12.0 % 11.7-14.4 zmbm=455) PLATELET COUNT (BEAKER) (test zatc=729) 168 K/CU MM 150-450 MEAN PLATELET VOLUME (BEAKER) (test ujry=636) 9.6 fL 9.4-12.3 NUCLEATED RED BLOOD CELLS (BEAKER) (test 0 /100 WBC 0-0 nbtf=820) NEUTROPHILS RELATIVE PERCENT (BEAKER) (test 57 % kdje=461) LYMPHOCYTES RELATIVE PERCENT (BEAKER) (test 28 % kbcv=953) MONOCYTES RELATIVE PERCENT (BEAKER) (test 12 % djjk=272) EOSINOPHILS RELATIVE PERCENT (BEAKER) (test 2 % cuuy=842) BASOPHILS RELATIVE PERCENT (BEAKER) (test 0 % wneg=254) NEUTROPHILS ABSOLUTE COUNT (BEAKER) (test 4.50 K/ L 1.56-6.13 efqa=552) LYMPHOCYTES ABSOLUTE COUNT (BEAKER) (test 2.23 K/ L 1.18-3.74 tfst=902) MONOCYTES ABSOLUTE COUNT (BEAKER) (test 0.98 K/ L 0.24-0.36 cyjx=340) EOSINOPHILS ABSOLUTE COUNT (BEAKER) (test 0.15 K/ L 0.04-0.36 hwhi=780) BASOPHILS ABSOLUTE COUNT (BEAKER) (test 0.03 K/ L 0.01-0.08 obga=983) IMMATURE GRANULOCYTES-RELATIVE PERCENT (BEAKER) 0 % 0-1 (test give=1100) NV, ANGIOGRAM, [id number] 11:37:00Reason for exam:->TIAsFINAL REPORT November 22, 2017 [...] guidance and strict sterile technique a 4 Syrian femoral sheath was inserted into the right common femoral artery. Through the sheath a 4 Syrian vertebral catheter was then advanced over the [...] demonstrates a critical supraclinoid ICA stenosis of wlgwujptxpzft01%. There is delayed antegrade flow. The venous [...] MDReport Verified Date/Time: 11/22/2017 11:37:47 Reading Location: [facility] Y018 Neuro Angio Reading Room POCT-GLUCOSE [id number] 07:43:00 Test Item Value Reference Range Comments POC-GLUCOSE METER (BEAKER) 149 mg/dL 70-110 TESTED AT [facility] [address] [facility] (test tbrb=0417) [facility] [address] [id number] 06:46:00 Test Item Value Reference Range Comments MAGNESIUM (BEAKER) (test cxho=361) 2.0 mg/dL 1.6-2.6 BASIC METABOLIC [id number] 06:46:00 Test Item Value Reference Range Comments SODIUM (BEAKER) (test 133 meq/L 136-145 kbzb=658) POTASSIUM (BEAKER) (test 4.4 meq/L 3.5-5.1 srkm=346) CHLORIDE (BEAKER) (test 99 meq/L 98-107 vleg=759) CO2 (BEAKER) (test 25 meq/L 22-29 vkyc=402) BLOOD UREA NITROGEN 11 mg/dL 7-21 (BEAKER) (test mjtk=067) CREATININE (BEAKER) (test 0.65 mg/dL 0.57-1.25 sfaw=740) GLUCOSE RANDOM (BEAKER) 162 mg/dL 70-105 (test uflc=364) CALCIUM (BEAKER) (test 9.5 mg/dL 8.4-10.2 zeym=617) EGFR (BEAKER) (test 87 mL/min/1.73 sq m ESTIMATED GFR IS NOT srlz=3752) ACCURATE CREATININE CLEARANCE IN PREDICTING GLOMERULAR FILTRATION RATE. ESTIMATED GFR IS NOT APPLICABLE FOR DIALYSIS PATIENTS. [id number] 06:33:00 Test Item Value Reference Range Comments PROTIME (BEAKER) (test jgaa=496) 15.5 seconds 11.7-14.7 INR (BEAKER) (test cqhy=852) 1.2 <=5.9 PARTIAL THROMBOPLASTIN TIME (BEAKER) (test 35.9 seconds 22.5-36.0 jlkf=424) RECOMMENDED COUMADIN/WARFARIN INR THERAPY RANGESSTANDARD DOSE: 2.0 - 3.0 Includes: PROPHYLAXIS forvenous thrombosis, systemic embolization; TREATMENT for venous thrombosis and/or pulmonary embolus.HIGH RISK: Target INR is 2.5-3.5 for patients with mechanical heart valves.POCT-GLUCOSE [id number] 06:22:00 Test Item Value Reference Range Comments POC-GLUCOSE METER (BEAKER) 161 mg/dL 70-110 TESTED AT [address] (test btgk=6873) [place] [address] POCT-GLUCOSE [id number] 02:08:00 Test Item Value Reference Range Comments POC-GLUCOSE METER (BEAKER) 182 mg/dL 70-110 TESTED AT [address] (test nnua=7773) [place] [address] POCT-GLUCOSE [id number] 19:30:00 Test Item Value Reference Range Comments POC-GLUCOSE METER (BEAKER) 146 mg/dL 70-110 TESTED AT [address] (test wlkc=5059) [place] [address] CT, CAROTID, [id number] 14:54:00Please include aortaFINAL REPORT CT angiogram of [...] the left ICA terminus. There is also bspb-wb-lvqzstwv multifocal narrowing of the right carotid siphon. [...] MDReport Verified Date/Time: 11/21/2017 14:54:26 Reading Location: [facility] Radiology Reading Room H MEJIA [id number] 14:54:00FINAL REPORT CT angiogram of the upper [...] the left ICA terminus. There is also eclr-ct-ayitlfsr multifocal narrowing of the right carotid siphon. [...] Mcdaniels Verified Date/Time: 11/21/2017 14:54:26 Reading Location: [facility] Radiology Reading Room POCT-GLUCOSE [id number] 11:50:00 Test Item Value Reference Range Comments POC-GLUCOSE METER (BEAKER) 153 mg/dL 70-110 TESTED AT [place] [id number] [facility] (test bgqi=1132) [facility] [address] POCT-GLUCOSE [id number] 08:08:00 Test Item Value Reference Range Comments POC-GLUCOSE METER (BEAKER) 125 mg/dL 70-110 TESTED AT [address] (test expv=6469) [place] [address] [id number] 06:43:00 Test Item Value Reference Range Comments MAGNESIUM (BEAKER) (test xdtj=394) 2.1 mg/dL 1.6-2.6 BASIC METABOLIC [id number] 06:43:00 Test Item Value Reference Range Comments SODIUM (BEAKER) (test 136 meq/L 136-145 zzjh=831) POTASSIUM (BEAKER) (test 4.0 meq/L 3.5-5.1 awyk=075) CHLORIDE (BEAKER) (test 101 meq/L 98-107 heha=395) CO2 (BEAKER) (test 27 meq/L 22-29 cdef=933) BLOOD UREA NITROGEN 12 mg/dL 7-21 (BEAKER) (test ocas=405) CREATININE (BEAKER) (test 0.68 mg/dL 0.57-1.25 vwma=103) GLUCOSE RANDOM (BEAKER) 122 mg/dL 70-105 (test oecj=490) CALCIUM (BEAKER) (test 9.5 mg/dL 8.4-10.2 uatb=313) EGFR (BEAKER) (test 83 mL/min/1.73 sq m ESTIMATED GFR IS NOT hpmj=5634) ACCURATE CREATININE CLEARANCE IN PREDICTING GLOMERULAR FILTRATION RATE. ESTIMATED GFR IS NOT APPLICABLE FOR DIALYSIS PATIENTS. TSH/FREE T4 IF [id number] 22:12:00 Test Item Value Reference Range Comments THYROID STIMULATING HORMONE (BEAKER) (test 4.66 uIU/mL 0.35-4.94 trrw=611) [id number] 21:54:00 Test Item Value Reference Range Comments MAGNESIUM (BEAKER) (test xenz=051) 2.0 mg/dL 1.6-2.6 BASIC METABOLIC [id number] 21:54:00 Test Item Value Reference Range Comments SODIUM (BEAKER) (test 134 meq/L 136-145 yulh=976) POTASSIUM (BEAKER) (test 4.1 meq/L 3.5-5.1 nbnv=362) CHLORIDE (BEAKER) (test 101 meq/L 98-107 woin=948) CO2 (BEAKER) (test 24 meq/L 22-29 hokm=807) BLOOD UREA NITROGEN 11 mg/dL 7-21 (BEAKER) (test sszg=388) CREATININE (BEAKER) (test 0.65 mg/dL 0.57-1.25 ytmj=265) GLUCOSE RANDOM (BEAKER) 126 mg/dL 70-105 (test aucu=816) CALCIUM (BEAKER) (test 9.5 mg/dL 8.4-10.2 vzpq=291) EGFR (BEAKER) (test 87 mL/min/1.73 sq m ESTIMATED GFR IS NOT rari=3045) ACCURATE CREATININE CLEARANCE IN PREDICTING GLOMERULAR FILTRATION RATE. ESTIMATED GFR IS NOT APPLICABLE FOR DIALYSIS PATIENTS. LIPID [id number] 21:54:00 Test Item Value Reference Range Comments TRIGLYCERIDES (BEAKER) (test nwzz=936) 70 mg/dL CHOLESTEROL (BEAKER) (test sclp=514) 101 mg/dL HDL CHOLESTEROL (BEAKER) (test ohph=391) 39 mg/dL LDL CHOLESTEROL CALCULATED (BEAKER) (test 48 mg/dL wunr=143) Triglyceride Reference Range: Low Risk <150 Borderline 150- 199 High Risk 200-499 Very High Risk >=500Cholesterol Reference Range: Low Risk <200 Borderline 200-239 High Risk > 240HDL Cholesterol Reference Range: Low Risk >=60 High Risk <40LDL Cholesterol Reference Range: Optimal <100 Near Optimal 100-129 Borderline 130-159 High 160-189 Very High >=190POCT-GLUCOSE [id number] 21:35:00 Test Item Value Reference Range Comments POC-GLUCOSE METER (BEAKER) 128 mg/dL 70-110 TESTED AT [address] (test bqcd=7763) [place] [address] POCT-GLUCOSE [id number] 17:55:00 Test Item Value Reference Range Comments POC-GLUCOSE METER (BEAKER) 113 mg/dL 70-110 TESTED AT [address] (test lutm=6988) [place] [address] POCT-GLUCOSE [id number] 12:32:00 Test Item Value Reference Range Comments POC-GLUCOSE METER (BEAKER) 120 mg/dL 70-110 TESTED AT [address] (test cdzx=2846) [place] [address] MR, MRA, BRAIN, WITHOUT [id number] 11:33:00Reason for exam:-> Ischemic Stroke EvaluationFINAL REPORT MRA Head and Neck CLINICAL HISTORY: CVA TECHNIQUE: MRA of the head utilizing 3-D nyor-ea-fmsdkz technique, with 3-D reconstructions. MRA of the [...] There is no other evidence for a saxman of Lawson proximal branch vessel occlusion. There [...] Verified Date/Time: 11/20/2017 11:33:14 Reading Location : [facility] C013 Neuro Reading Room MR, MRA, NECK, WITHOUT IV [id number] 11:33: 00Reason for exam:->Ischemic Stroke EvaluationFINAL REPORT MRA Head and Neck CLINICAL HISTORY: CVA TECHNIQUE: MRA of the head utilizing 3-D ppsi-lr-weviqi technique, with 3-D reconstructions. MRA of the neck utilizing 2-D and 3-D sekf-jg-aowhim technique, with 3-D reconstructions. COMPARISON: None FINDINGS: [...] There is no other evidence for a saxman of Lawson proximal branch vessel occlusion. There [...] Verified Date/Time: 11/20/2017 11 :33:14 Reading Location: [address] Neuro Reading Room MR, BRAIN, WITHOUT [id number] 11:05:00Reason for exam:->Ischemic Stroke EvaluationFINAL REPORT MRI [...] Koch Verified Date/Time: 11/20/2017 11:05:05 Reading Location: [address] Neuro Reading Room HEMOGLOBIN [id number] 09:08:00 Test Item Value Reference Range Comments HEMOGLOBIN A1C (BEAKER) (test xozd=716) 6.1 % 4.3-6.1 POCT-GLUCOSE [id number] 08:27:00 Test Item Value Reference Range Comments POC-GLUCOSE METER (BEAKER) 125 mg/dL 70-110 TESTED AT [address] (test bbpy=7178) [facility] [address] TSH/FREE T4 IF [id number] 07:47:00 Test Item Value Reference Range Comments THYROID STIMULATING HORMONE (BEAKER) (test 5.97 uIU/mL 0.35-4.94 dtmq=834) VITAMIN [id number] 07:44:00 Test Item Value Reference Range Comments VITAMIN B12 (BEAKER) (test muca=855) 857 pg/mL 213-816 CBC W/PLT COUNT & AUTO [id number] 06:47:00 Test Item Value Reference Range Comments WHITE BLOOD CELL COUNT (BEAKER) (test vvth=376) 8.3 K/ L 3.5-10.5 RED BLOOD CELL COUNT (BEAKER) (test olca=380) 4.11 M/ L 3.93-5.22 HEMOGLOBIN (BEAKER) (test hvfc=845) 13.4 GM/DL 11.2-15.7 HEMATOCRIT (BEAKER) (test lehq=539) 39.7 % 34.1-44.9 MEAN CORPUSCULAR VOLUME (BEAKER) (test vxaw=283) 96.6 fL 79.4-94.8 MEAN CORPUSCULAR HEMOGLOBIN (BEAKER) (test 32.6 pg 25.6-32.2 isir=392) MEAN CORPUSCULAR HEMOGLOBIN CONC (BEAKER) (test 33.8 GM/DL 32.2-35.5 ajai=779) RED CELL DISTRIBUTION WIDTH (BEAKER) (test 12.1 % 11.7-14.4 jhwq=826) PLATELET COUNT (BEAKER) (test fcyk=837) 209 K/CU MM 150-450 MEAN PLATELET VOLUME (BEAKER) (test ivyq=467) 9.7 fL 9.4-12.3 NUCLEATED RED BLOOD CELLS (BEAKER) (test 0 /100 WBC 0-0 ausj=892) NEUTROPHILS RELATIVE PERCENT (BEAKER) (test 49 % huiz=339) LYMPHOCYTES RELATIVE PERCENT (BEAKER) (test 35 % yfqu=359) MONOCYTES RELATIVE PERCENT (BEAKER) (test 12 % lcem=753) EOSINOPHILS RELATIVE PERCENT (BEAKER) (test 4 % dspc=712) BASOPHILS RELATIVE PERCENT (BEAKER) (test 1 % ntmz=835) NEUTROPHILS ABSOLUTE COUNT (BEAKER) (test 4.02 K/ L 1.56-6.13 nrlu=290) LYMPHOCYTES ABSOLUTE COUNT (BEAKER) (test 2.89 K/ L 1.18-3.74 kvlx=735) MONOCYTES ABSOLUTE COUNT (BEAKER) (test 0.95 K/ L 0.24-0.36 hltl=259) EOSINOPHILS ABSOLUTE COUNT (BEAKER) (test 0.35 K/ L 0.04-0.36 xsjx=059) BASOPHILS ABSOLUTE COUNT (BEAKER) (test 0.04 K/ L 0.01-0.08 bryc=363) IMMATURE GRANULOCYTES-RELATIVE PERCENT (BEAKER) 0 % 0-1 (test jukg=8375) POCT-GLUCOSE [id number] 22:09:00 Test Item Value Reference Range Comments POC-GLUCOSE METER (BEAKER) 130 mg/dL 70-110 TESTED AT [facility] [address] [facility] (test aqzh=1928) [facility] [address]
--- OUTSIDE RECORDS SUMMARY | 2019-08-04 15:14 | XMS REPORT ---
[...] Ranitidine NDC 0 Active not defined Levothyroxine [facility] [address]-39 Active not defined Sodium Vitamin B-12 [facility] [address]-97413 Active not defined Metformin HCl [facility] 41791556262 500 MG Orally Active 1 tablet with Twice a day meals Sertraline HCl [facility] 72895413527 25 Orally Once Active 1 tablet a day Bactrim DS [facility] 85257062168 800-160 MG December Active 1 tablet Orally Twice a 2018 Vitamin E [facility] 96269-35567 Active not defined Cranberry [facility] [address]853 Active not defined Concentrate Rosuvastatin [facility] 74079466456 40 Active TAKE 1 TABLET Calcium BY MOUTH DAILY Cyanocobalamin [facility] [address]-81 1000 MCG/15ML Active 15 ml Orally Once a day Tylenol Arthritis ND 0 Active not defined Pain Valsartan [facility] 43538640636 160 MG Orally Active 1 tablet Once a day Bactrim DS [facility] 87148582199 800-160 MG January Active 1 tablet Orally Twice a , 2017 Crestor [facility] 27362897360 40 MG Active 1 EACH ONCE A DAY Multivitamin [facility] 74881-67401 Active not defined Probiotic [facility] [address]5521-95435 Active not defined Plavix [facility] 60945252150 75 MG Orally Active 1 tablet Once a day HydrALAZINE HCl [facility] 53746451095 100 MG Orally December 05, Active as directed Three times a 2017 day Toviaz [facility] 93421854128 8 MG Orally Active 1 tablet Once a day Verapamil HCl [facility] [address]-96 Active not defined Omeprazole [facility] 63098394227 40 Active TAKE 1 CAPSULE BY MOUTH EVERY DAY Fluconazole ND 60096995055 150 MG Orally Sep 15, Active 1 tablet one tab a week 2019 today and may repeat one tab in 1 week if no improvement Estradiol [facility] 21312854768 0.1 MG/GM January Active as directed Vaginal Two 22, times a Week 2018 Metformin HCl [facility] 29408867838 500 Active TAKE 1 TABLET BY MOUTH TWICE DAILY Omeprazole [facility] 76185460567 40 MG orally Active 1 EACH ONCE A daily in AM DAY Eliquis [facility] 11608159545 5 MG Orally Active 1 tablet twice a day Sertraline HCl [facility] 42313647168 25 MG Orally Active 1 tablet Once a day Carvedilol ND 18108952463 25 MG Orally Active as directed Vitamin D3 [facility] 47158666817 1000 UNIT Active 1 capsule Orally Once a day Amlodipine [facility] 27425199547 10 MG Orally Active 1 tablet Besylate Once a day Coreg [facility] 86463687748 25 MG Orally Active not defined HydrALAZINE HCl [facility] 82310237317 100 MG Orally Active 1 tablet with Three times a food day Irbesartan [facility] 25750935119 150 MG Orally Active 1 tablet Once a day Results No Known Results Summary Purpose eClinicalWorks Submission
--- OUTSIDE RECORDS SUMMARY | 2019-08-04 15:15 | XMS REPORT ---
:1935 Author Organization eClinicalWorks Care Team Providers Name Role Phone Esau Adamaris Provider Role Unavailable Allergies, Adverse Reactions, Alerts [...] Condition Code Onset Dates Condition Status Assessment Lower urinary tract symptoms (LUTS) R39.9 Active Assessment Recurrent UTI N39.0 Active Assessment Mixed stress and urge urinary N39.46 Active incontinence Assessment History of recurrent UTI (urinary Z87.440 Active tract infection) Assessment Urinary tract infection without N39.0 Active hematuria, site unspecified Problem Recurrent urinary tract infection N39.0 Active [...] End Status Dosage System Date Date Vitamin B-12 [facility] [address]38 Active not defined Levothyroxine [facility] 59611972769 125 MCG Orally Active 1 tablet Sodium Once a day in the morning on an empty stomach Crestor [facility] 90602579593 40 MG Active 1 EACH ONCE A DAY Estradiol [facility] 06153761714 0.1 MG/GM January Active as Vaginal Two 22, directed times a Week 2018 Irbesartan [facility] 56564090875 150 MG Orally Active 1 tablet Once a day Cyanocobalamin [facility] [address]-65 1000 MCG/15ML Active 15 ml Orally Once a day Methenamine [facility] 23370133716 1 GM Orally Aug 02September Active 1 tablet Hippurate Twice a day 2019 Probiotic [facility] 25919598713 - Orally Active not defined Eliquis [facility] 76412042249 5 MG Orally Active 1 tablet twice a day Vitamin E [facility] 66171749860 400 UNIT Active not Orally defined HydrALAZINE HCl [facility] 89149707058 100 MG Orally Active 1 tablet Three times a with food day Coreg [facility] 41391429672 25 MG Orally Active not defined Tylenol Arthritis ND 0 Active not Pain defined Levetiracetam [facility] 09851119064 250 MG Orally Active 1 tablet every 12 hrs Cranberry [facility] 75759-49232 425 MG Orally Active 1 capsule Concentrate with meals Multivitamin [facility] 22893-11080 Active not defined HydrALAZINE HCl [facility] 29179633559 100 MG Orally December 05, Active as Three times a 2017 directed day Metformin HCl [facility] 09636655747 500 MG Orally Active 1 tablet Twice a day with meals Plavix [facility] 96250807902 75 MG Orally Active 1 tablet Once a day Omeprazole [facility] 78760363385 40 Active TAKE 1 CAPSULE BY MOUTH EVERY DAY Omeprazole [facility] 17613475569 40 MG orally Active 1 EACH daily in AM ONCE A DAY Sertraline HCl [facility] 04215621713 25 MG Orally Active 1 tablet Once a day Carvedilol ND 75245668430 25 MG Orally Active as directed Magnesium [facility] 06108955018 500 MG Orally Active not defined Vitamin D3 [facility] 74095054084 1000 UNIT Active 1 capsule Orally Once a day Bactrim [facility] 62030638083 400-80 MG Aug 02, Aug 07, Active 1 tablet Orally BID 2019 2019 Metformin HCl [facility] 01390431244 500 Active TAKE 1 TABLET BY MOUTH TWICE DAILY Rosuvastatin [facility] 24127669017 40 Active TAKE 1 Calcium TABLET BY MOUTH DAILY Amlodipine [facility] 94784494547 10 MG Orally Active 1 tablet Besylate Once a day Results No Known Results Summary Purpose eClinicalWorks Submission
[2019-08-04] MEDS ORDERED: ONDANSETRON 4 MG/2 ML VIAL ONE (15:52)
[2019-08-04] MEDS ORDERED: DIPHENHYDRAMINE 50 MG/ML VIAL ONE (15:52)
[2019-08-04] MEDS ORDERED: NA CHLORIDE 0.9% 1,000 ML ONE (15:52)
[2019-08-04 15:58] LABS: Basophils % 0.4 % (0-1.3); Hematocrit 37.4 % (36.0-45.0); Lymphocytes % 28.8 % (15.3-44.8); MPV 8.1 fL (7.6-11.3); RBC Red Blood Cell Count 3.94 M/uL (3.86-4.86)
[2019-08-04 16:13] LABS: Albumin 3.7 g/dL (3.4-5.0); Bilirubin Direct 0.2 mg/dL (0-0.2); Bilirubin Total 0.4 mg/dL (0.2-1.0); Potassium 4.4 mmol/L (3.5-5.1); Protein, Total 7.2 g/dL (6.4-8.2)
[2019-08-04 16:21] LABS: Urine Bacteria <20 /HPF (<20); Urine Culture Reflex Order NOT NEEDED; Urine RBC <5 /HPF (NONE SEEN)
[2019-08-04 16:40] LABS: Urine Blood NEGATIVE (NEG); Urine Glucose NEGATIVE (NEG); Urine Protein NEGATIVE (NEG)
--- NOTE | 2019-08-04 17:43 | RAD REPORT ---
EXAM DESCRIPTION: CT - Abdomen Pelvis W Contrast - 08/04/2019 5:32 pm CLINICAL HISTORY: FLANK PAIN COMPARISON: CT-ABD PELVIS W/O CONTRAST dated 04/29/2019 TECHNIQUE: Biphasic, helical CT imaging of the abdomen and pelvis was performed following 100 ml non -ionic IV contrast. No oral contrast. All CT scans are performed using dose optimization technique as appropriate and may include automated exposure control or mA/KV adjustment according to patient size. FINDINGS: No acute lung parenchymal process or pleural effusion. Cardiomegaly is present. Cardiac en largement is primarily due to biatrial enlargement. There is suspected left ventricular myocardial hy pertrophy. No pericardial effusion. The liver, spleen, and pancreas show no suspicious findings. Cholecystectomy clips are present. Bilia ry tree is prominent similar to comparison. Dilatation is not outside of normal range for a post chol ecystectomy patient. Renal function is symmetric. Pyelonephritis is not suspected. No solid mass lesions seen. Complex low er pole right renal cyst with calcification unchanged from April 2019. Left ureter is prominent but no obstructing calculus seen. No acute renal parenchymal mass. No urinary bladder wall thickening, e david or enhancement. Delete select No adrenal abnormalities. No dilated bowel loops or bowel wall thickening. Appendicitis is not suspected. Patient has minimal d iverticulosis. No free air, free fluid or inflammatory stranding. No hernia, mass or bulky lymphaden opathy. Prominent disc and bony degenerative changes are present. Pattern is similar to comparison. Dense arterial tree calcifications are present. Infrarenal aortic aneurysmal dilatation is present up to 3.1 cm in diameter. No displaced calcification. No acute aortic finding. IMPRESSION: No pyelonephritis findings on CT. No acute finding is identifiable. Correlation is ne eded with any UA abnormalities. Ureteritis is not excluded. No acute GI process. Gallbladder is absent. Minimal dilatation of the biliary tree not outside of nor mal for a post cholecystectomy patient. Cardiomegaly primarily due to biatrial enlargement. Left ventricular myocardial hypertrophy suspected . No pericardial effusion.
--- NOTE | 2019-08-04 18:12 | EDPHYS ---
Physician Documentation [facility] Name: Radha Lara Age: 84 yrs Sex: Female : 1935 Arrival Date: 08/04/2019 Time: 15:13 Bed 13 Private MD: Elli Britt ED Physician Chris Hammond HPI: 08/04 15:33 This 84 yrs old Female presents to ER via Ambulatory with complaints of LLQ pm1 pain, Left flank pain, Nausea. 15:33 The patient complains of pain in the left low back and LLQ. The pain does not radiate. pm1 Onset: The symptoms/episode began/occurred 2 day(s) ago. Modifying factors: The symptoms are alleviated by nothing. the symptoms are aggravated by nothing. Associated signs and symptoms: Pertinent positives: nausea, chills, Pertinent negatives: fever, vomiting. The patient has been recently seen by a physician: the patient's primary care provider, 2 day(s) ago, with similar presenting complaints, and apparently given a diagnosis of UTI and prescribed Bactrim. Patient was seen by PCP on for burning with urination and low back pain. Was prescribed bactrim and her burning with urination has resolved. Today she experienced some chills, nausea, continued low back pain and LLQ pain. No fever or cough, but onset of runny nose today. Historical: - Allergies: 15:16 Aspirin; sv 15:16 Clonidine; sv 15:16 Codeine; sv 15:16 Ibuprofen; sv 15:16 Iodinated Contrast Media - IV Dye; sv 15:16 Lisinopril; sv 15:16 Niacin; sv 15:16 Nitrofurantoin; sv 15:16 nitrous oxide; sv 15:16 vicoden; sv 15:16 Zoloft; sv - PMHx: 15:16 Diabetes - NIDDM; Hypertension; CVA; PE; TIA; Kidney stones; Sleep Apnea; ADD/ADHD; sv acid reflux; Atrial Fib; Hyperlipidemia; UTI; - PSHx: 15:16 CABG; Heart stents; Tonsillectomy; Hysterectomy; sv - Immunization history:: Flu vaccine status is unknown. - Social history:: Smoking status: unknown. - Ebola Screening: : No symptoms or risks identified at this time. ROS: 15:33 Eyes: Negative for injury, pain, redness, and discharge. pm1 15:33 Neck: Negative for injury, pain, and swelling, Cardiovascular: Negative for chest pain, palpitations, and edema. 15:33 MS/Extremity: Negative for injury and deformity, Skin: Negative for injury, rash, and discoloration, Neuro: Negative for headache, weakness, numbness, tingling, and seizure. 15:33 Constitutional: Positive for body aches, chills, poor PO intake, Negative for fever. 15:33 ENT: Positive for rhinorrhea, Negative for ear pain, sore throat, difficulty swallowing, difficulty handling secretions, hoarseness. 15:33 Respiratory: Negative for cough, shortness of breath, sputum production, wheezing. 15:33 Abdomen/GI: Positive for abdominal pain, nausea, of the left lower quadrant, Negative for vomiting, diarrhea, constipation. 15:33 Back: Positive for flank pain, on the left, Negative for radiated pain. 15:33 : Negative for urinary frequency, burning with urination, difficulty urinating. Exam: 15:33 Constitutional: This is a well developed, well nourished patient who is awake, alert, pm1 and in no acute distress. Head/Face: Normocephalic, atraumatic. Eyes: Pupils equal round and reactive to light, extra-ocular motions intact. Lids and lashes normal. Conjunctiva and sclera are non-icteric and not injected. Cornea within normal limits. Periorbital areas with no swelling, redness, or edema. ENT: Nares patent. No nasal discharge, no septal abnormalities noted. Tympanic membranes are normal and external auditory canals are clear. Oropharynx with no redness, swelling, or masses, exudates, or evidence of obstruction, uvula midline. Mucous membranes moist. Neck: Trachea midline, no thyromegaly or masses palpated, and no cervical lymphadenopathy. Supple, full range of motion without nuchal rigidity, or vertebral point tenderness. No Meningismus. Chest/axilla: Normal chest wall appearance and motion. Nontender with no deformity. No lesions are appreciated. Cardiovascular: Regular rate and rhythm with a normal S1 and S2. No gallops, murmurs, or rubs. No pulse deficits. Respiratory: Lungs have equal breath sounds bilaterally, clear to auscultation and percussion. No rales, rhonchi or wheezes noted. No increased work of breathing, no retractions or nasal flaring. Abdomen/GI: Soft, non-tender, with normal bowel sounds. No distension or tympany. No guarding or rebound. No evidence of tenderness throughout. Back: No spinal tenderness. No costovertebral tenderness. Full range of motion. Skin: Warm, dry with normal turgor. Normal color with no rashes, no lesions, and no evidence of cellulitis. MS/ Extremity: Pulses equal, no cyanosis. Neurovascular intact. Full, normal range of motion. 15:33 Neuro: Orientation: is normal, Motor: is normal, moves all fours. Vital Signs: 15:17 BP 169 / 50; Pulse 88; Resp 20; Temp 98.2(O); Pulse Ox 98% on R/A; Weight 61.23 kg; sv Height 5 ft. 2 in. (157.48 cm); 16:07 BP 145 / 105; Pulse 70; Resp 18; Pulse Ox 100% on R/A; mg2 18:35 BP 135 / 78; Pulse 71; Resp 18; Temp 98(O); Pulse Ox 100% on R/A; mg2 15:17 Body Mass Index 24.69 (61.23 kg, 157.48 cm) sv MDM: 15:20 Patient medically screened. pm1 15:38 Data reviewed: vital signs. Data interpreted: Pulse oximetry: on room air is 98 %. pm1 Interpretation: normal. 18:10 Counseling: I had a detailed discussion with the patient and/or guardian regarding: the pm1 historical points, exam findings, and any diagnostic results supporting the discharge/admit diagnosis, lab results, radiology results, the need for outpatient follow up, to return to the emergency department if symptoms worsen or persist or if there are any questions or concerns that arise at home. 08/04 15:31 Order name: Flu; Complete Time: 16:19 pm1 08/04 15:31 Order name: Basic Metabolic Panel; Complete Time: 16:19 pm08/04 15:31 Order name: CBC with Diff; Complete Time: 16:19 pm1 08/04 15:31 Order name: Creatinine for Radiology; Complete Time: 16:19 pm1 08/04 15:31 Order name: Hepatic Function; Complete Time: 16:19 pm08/04 15:31 Order name: Lipase; Complete Time: 16:19 pm1 08/04 15:31 Order name: IV Saline Lock; Complete Time: 15:59 pm1 08/04 15:31 Order name: Labs collected and sent; Complete Time: 15:59 pm1 08/04 15:31 Order name: CT Abd/Pelvis - IV Contrast Only; Complete Time: 17:55 pm1 08/04 15:31 Order name: Urine Microscopic Only; Complete Time: 16:44 pm1 08/04 16:13 Order name: Urine Dipstick--Ancillary (enter results); Complete Time: 16:44 ms 08/04 15:31 Order name: Urine Dipstick-Ancillary (obtain specimen); Complete Time: 15:59 pm1 Administered Medications: 16:00 Drug: Zofran 4 mg Route: IVP; Site: left forearm; mg2 17:00 Follow up: Response: No adverse reaction mg2 16:00 Drug: NS 0.9% 1000 ml Route: IV; Rate: 1000 ml; Site: left forearm; mg2 18:37 Follow up: Response: No adverse reaction; IV Status: Completed infusion; IV Intake: mg2 1000ml 16:55 Drug: Benadryl 25 mg Route: IVP; Site: left forearm; mg2 18:15 Follow up: Response: No adverse reaction mg2 Disposition: 19:03 Co-signature as Attending Physician, Chris Hammond MD. rn Disposition: 08/04/19 18:11 Discharged to Home. Impression: Low back pain, Nausea, Unspecified abdominal pain. - Condition is Stable. - Discharge Instructions: Abdominal Pain, Adult, Back Pain, Adult, Nausea, Adult. - Prescriptions for Zofran 4 mg Oral Tablet - take 1 tablet by ORAL route every 12 hours As needed; 20 tablet. Tramadol 50 mg Oral Tablet - take 1 tablet by ORAL route every 8 hours As needed as needed; 12 tablet. - Medication Reconciliation Form, Thank You Letter, Antibiotic Education, Prescription Opioid Use form. - Follow up: Emergency Department; When: As needed; Reason: Worsening of condition. Follow up: Private Physician; When: 2 - 3 days; Reason: Recheck today's complaints, Continuance of care, Re-evaluation by your physician. - Problem is new. - Symptoms have improved. Signatures: [facility]patcher [facility] Meg Dobbins RN RN sv Nieto, Roman, MD MD rn Marinas John, LIANNE SIGNAL TOWER OPERATOR pm1 Gage Bajwa, RN RN mg2 Corrections: (The following items were deleted from the chart) 18:11 18:11 08/04/2019 18:11 Discharged to Home. Impression: Nausea; Unspecified abdominal pm1 pain; Low back pain. Condition is Stable. Forms are Medication Reconciliation Form, Thank You Letter, Antibiotic Education, Prescription Opioid Use. Follow up: Emergency Department; When: As needed; Reason: Worsening of condition. Follow up: Private Physician; When: 2 - 3 days; Reason: Recheck today's complaints, Continuance of care, Re-evaluation by your physician. Problem is new. Symptoms have improved. pm1 18:38 18:11 08/04/2019 18:11 Discharged to Home. Impression: Low back painNausea; Unspecified mg2 abdominal pain. Condition is Stable. Forms are Medication Reconciliation Form, Thank You Letter, Antibiotic Education, Prescription Opioid Use. Follow up: Emergency Department; When: As needed; Reason: Worsening of condition. Follow up: Private Physician; When: 2 - 3 days; Reason: Recheck today's complaints, Continuance of care, Re-evaluation by your physician. Problem is new. Symptoms have improved. pm1
--- NOTE | 2019-08-04 18:12 | ER ---
Nurse's Notes [facility] Name: Radha Lara Age: 84 yrs Sex: Female : 1935 Arrival Date: 08/04/2019 Time: 15:13 Bed 13 Private MD: Elli Britt Diagnosis: Nausea;Unspecified abdominal pain;Low back pain Presentation: 08/04 15:14 Presenting complaint: Patient states: dx with UTI on , but reports chills, sv nausea, runny nose, left back and LLQ pain started this morning. Transition of care: patient was not received from another setting of care. Onset of symptoms was August 04, 2019. Risk Assessment: Do you want to hurt yourself or someone else? Patient reports no desire to harm self or others. Care prior to arrival: None. 15:14 Method Of Arrival: Ambulatory sv 15:14 Acuity: YOLANDE 3 sv 16:08 Initial Sepsis Screen: Does the patient meet any 2 criteria? No. Patient's initial mg2 sepsis screen is negative. Does the patient have a suspected source of infection? No. Patient's initial sepsis screen is negative. Historical: - Allergies: 15:16 Aspirin; sv 15:16 Clonidine; sv 15:16 Codeine; sv 15:16 Ibuprofen; sv 15:16 Iodinated Contrast Media - IV Dye; sv 15:16 Lisinopril; sv 15:16 Niacin; sv 15:16 Nitrofurantoin; sv 15:16 nitrous oxide; sv 15:16 vicoden; sv 15:16 Zoloft; sv - PMHx: 15:16 Diabetes - NIDDM; Hypertension; CVA; PE; TIA; Kidney stones; Sleep Apnea; ADD/ADHD; sv acid reflux; Atrial Fib; Hyperlipidemia; UTI; - PSHx: 15:16 CABG; Heart stents; Tonsillectomy; Hysterectomy; sv - Immunization history:: Flu vaccine status is unknown. - Social history:: Smoking status: unknown. - Ebola Screening: : No symptoms or risks identified at this time. Screenin:03 Abuse screen: Denies threats or abuse. Denies injuries from another. Nutritional mg2 screening: No deficits noted. Tuberculosis screening: No symptoms or risk factors identified. Fall Risk IV access (20 points). Assessment: 16:01 General: Appears in no apparent distress. comfortable, Behavior is calm, cooperative. mg2 Pain: Complains of pain in left lower quadrant. Neuro: Level of Consciousness is awake, alert, obeys commands, Oriented to person, place, time, situation. Cardiovascular: Capillary refill < 3 seconds Patient's skin is warm and dry. Respiratory: Airway is patent Respiratory effort is even, unlabored, Respiratory pattern is regular, symmetrical. GI: Abdomen is flat, non-distended, Reports lower abdominal pain, nausea. : No deficits noted. EENT: No deficits noted. Derm: Skin is intact, is healthy with good turgor, Skin is pink, warm \T\ dry. normal. Musculoskeletal: Circulation, motion, and sensation intact. Capillary refill < 3 seconds. 18:36 Reassessment: Patient appears in no apparent distress at this time. Patient and/or mg2 family updated on plan of care and expected duration. Pain level reassessed. Patient is alert, oriented x 3, equal unlabored respirations, skin warm/dry/pink. Vital Signs: 15:17 BP 169 / 50; Pulse 88; Resp 20; Temp 98.2(O); Pulse Ox 98% on R/A; Weight 61.23 kg; sv Height 5 ft. 2 in. (157.48 cm); 16:07 BP 145 / 105; Pulse 70; Resp 18; Pulse Ox 100% on R/A; mg2 18:35 BP 135 / 78; Pulse 71; Resp 18; Temp 98(O); Pulse Ox 100% on R/A; mg2 15:17 Body Mass Index 24.69 (61.23 kg, 157.48 cm) sv ED Course: 15:13 Patient arrived in ED. as 15:13 Elli Britt MD is Private Physician. as 15:15 Triage completed. sv 15:17 Arm band placed on. sv 15:18 John Macedo NP is PHCP. pm1 15:18 Chris Hammond MD is Attending Physician. pm1 15:25 Gage Bajwa, LAILA is Primary Nurse. mg2 15:59 Radiology exam delayed due to lab results not completed at this time. (BUN/Creatinine). bq 16:04 No provider procedures requiring assistance completed. Inserted saline lock: 20 gauge mg2 in left forearm, using aseptic technique. Blood collected. 16:07 Patient has correct armband on for positive identification. Pulse ox on. NIBP on. Door mg2 closed. Warm blanket given. 17:32 CT Abd/Pelvis - IV Contrast Only In Process Unspecified. EDMS 17:32 CT completed. Patient tolerated procedure well. Patient moved back from CT. bq 18:35 IV discontinued, intact, bleeding controlled, No redness/swelling at site. Pressure mg2 dressing applied. Administered Medications: 16:00 Drug: Zofran 4 mg Route: IVP; Site: left forearm; mg2 17:00 Follow up: Response: No adverse reaction mg2 16:00 Drug: NS 0.9% 1000 ml Route: IV; Rate: 1000 ml; Site: left forearm; mg2 18:37 Follow up: Response: No adverse reaction; IV Status: Completed infusion; IV Intake: mg2 1000ml 16:55 Drug: Benadryl 25 mg Route: IVP; Site: left forearm; mg2 18:15 Follow up: Response: No adverse reaction mg2 Intake: 18:37 IV: 1000ml; Total: 1000ml. mg2 Outcome: 18:11 Discharge ordered by MD. pm1 18:36 Discharged to home ambulatory, with family. mg2 18:36 Condition: stable 18:36 Discharge instructions given to patient, family, Instructed on discharge instructions, follow up and referral plans. medication usage, Demonstrated understanding of instructions, follow-up care, medications, Prescriptions given X 2. 18:38 Patient left the ED. mg2 Signatures: Dispatcher [employer] EDMS Meg Macias, RN RN sv Radha Whitlock Amelia as Marinas, Patrick, COMPLEX DIRECTOR COMPLEX DIRECTOR pm1 Gage Bajwa RN RN mg2 Corrections: (The following items were deleted from the chart) 15:18 15:17 Pulse 65bpm; Resp 20bpm; Pulse Ox 96%; Temp 98.2F Oral; 61.23 kg; Height 5 ft. 2 sv in.; BMI: 24.6; sv
[2019-08-04 18:47] VITALS: O2SAT 100
[2019-08-04 18:48] VITALS: BP 135/78; TEMP 98
== END 2019-08-04 18:38 | disposition home or self-care (01) ==
LOC: ER 15:10
DX: M54.5 Low back pain (principal); R11.0 Nausea; I10 Essential (primary) hypertension; Z95.1 Presence of aortocoronary bypass graft; Z95.818 Presence of other cardiac implants and grafts
CPT/HCPCS: 96361; 85025; 80048; 36415; 80076; 83690; 87804 ×2; 74177; 96375; 96374; 99284; Q9967; J1200; J7030; J2405; 81003; 81015

== ENCOUNTER 2019-08-18 20:13 | Emergency (ER) | payer OTHER ==
--- OUTSIDE RECORDS SUMMARY | 2019-08-18 20:17 | XMS REPORT ---
:1935 [facility] [place] [address] Care Team Providers Name Role Phone LARISSA [...] for FINAL REPORT PATIENT ID: BRAIN exam:->stroke [id number] CLINICAL HISTORY: TIA TECHNIQUE: Initially, noncontrast head [...] intact. There is no evidence for a [place] proximal branch vessel occlusion. Mild [...] artery stenosis, unchanged. No evidence for a [place] proximal branch vessel occlusion. Signed: Alexa Koch MDReport Verified Date/Time: 05/01/2019 10:58:29 Reading Location: [facility] C013V Neuro Reading Room , CAROTID, 2019-05-01 10:58:00 Reason for exam:->eval FINAL REPORT PATIENT ID: ANGIO for TIA [id number] CLINICAL HISTORY: TIA TECHNIQUE: Initially, noncontrast head [...] intact. There is no evidence for a [place] proximal branch vessel occlusion. Mild [...] artery stenosis, unchanged. No evidence for a [place] proximal branch vessel occlusion. Signed: Alexa Koch MDReport Verified Date/Time: 05/01/2019 10:58:29 Reading Location: [facility] C013V Neuro Reading Room C METABOLIC PANEL 2019-05-01 06:04:00 Test Item Value Reference Range Comments SODIUM (BEAKER) (test 133 meq/L 136-145 awlx=026) POTASSIUM (BEAKER) (test 4.3 meq/L 3.5-5.1 ljwv=719) CHLORIDE (BEAKER) (test 104 meq/L 98-107 iwuf=435) CO2 (BEAKER) (test ffqn=015) 24 meq/L 22-29 BLOOD UREA NITROGEN (BEAKER) 8 mg/dL 7-21 (test abwh=223) CREATININE (BEAKER) (test 0.63 mg/dL 0.57-1.25 ijxg=356) GLUCOSE RANDOM (BEAKER) 105 mg/dL 70-105 (test zrzv=200) CALCIUM (BEAKER) (test 8.8 mg/dL 8.4-10.2 ccop=540) EGFR (BEAKER) (test 90 mL/min/1.73 sq m ESTIMATED GFR IS NOT smog=1352) ACCURATE CREATININE CLEARANCE IN PREDICTING GLOMERULAR FILTRATION RATE. ESTIMATED GFR IS NOT APPLICABLE FOR DIALYSIS PATIENTS. CBC (HEMOGRAM ONLY)2019-05-01 04:59:00 Test Item Value Reference Range Comments WHITE BLOOD CELL COUNT (BEAKER) (test dgxb=109) 7.4 K/ L 3.5-10.5 RED BLOOD CELL COUNT (BEAKER) (test fywy=682) 3.56 M/ L 3.93-5.22 HEMOGLOBIN (BEAKER) (test msig=173) 11.3 GM/DL 11.2-15.7 HEMATOCRIT (BEAKER) (test pilf=697) 33.9 % 34.1-44.9 MEAN CORPUSCULAR VOLUME (BEAKER) (test hihr=788) 95.2 fL 79.4-94.8 MEAN CORPUSCULAR HEMOGLOBIN (BEAKER) (test 31.7 pg 25.6-32.2 pyxy=263) MEAN CORPUSCULAR HEMOGLOBIN CONC (BEAKER) (test 33.3 GM/DL 32.2-35.5 jvdr=864) RED CELL DISTRIBUTION WIDTH (BEAKER) (test 12.0 % 11.7-14.4 vsqi=687) PLATELET COUNT (BEAKER) (test amxa=239) 170 K/CU MM 150-450 MEAN PLATELET VOLUME (BEAKER) (test dzvp=304) 9.6 fL 9.4-12.3 NUCLEATED RED BLOOD CELLS (BEAKER) (test 0 /100 WBC 0-0 fnfc=616) TROPONIN [id number] 20:18:00 Test Item Value Reference Range Comments TROPONIN I (BEAKER) (test ytgk=666) < ng/mL 0.00-0.03 Troponin I (TnI) levels [...] neurological disease, and persistent tachyarrhythmia.MR, BRAIN, WITHOUT [id number] 19 :07:00Reason for exam:->Ischemic Stroke EvaluationFINAL REPORT [...] Verified Date/ Time: 04/30/2019 19:07:03 Reading Location: [address] Neuro Reading Room HEMOGLOBIN [id number] 10:33:00 Test Item Value Reference Range Comments HEMOGLOBIN A1C (BEAKER) (test uelr=656) 6.6 % 4.3-6.1 FastingVITAMIN [id number] 09:00:00 Test Item Value Reference Range Comments VITAMIN B12 (BEAKER) (test xmut=581) 654 pg/mL 213-816 Add on please to morning labsAdd on to morning labsTSH/FREE T4 IF [id number] 09:00:00 Test Item Value Reference Range Comments THYROID STIMULATING HORMONE (BEAKER) (test 0.69 uIU/mL 0.35-4.94 vehe=609) Add on please to morning labsAdd on to morning labsBASIC METABOLIC [id number] 07:30:00 Test Item Value Reference Range Comments SODIUM (BEAKER) (test 131 meq/L 136-145 qjng=854) POTASSIUM (BEAKER) (test 4.2 meq/L 3.5-5.1 Specimen slightly drqs=445) hemolyzed CHLORIDE (BEAKER) (test 99 meq/L 98-107 ncom=354) CO2 (BEAKER) (test 23 meq/L 22-29 givi=633) BLOOD UREA NITROGEN 10 mg/dL 7-21 (BEAKER) (test nvod=311) CREATININE (BEAKER) (test 0.67 mg/dL 0.57-1.25 Specimen slightly nwzh=374) hemolyzed GLUCOSE RANDOM (BEAKER) 115 mg/dL 70-105 (test tmyl=178) CALCIUM (BEAKER) (test 8.8 mg/dL 8.4-10.2 qhag=580) EGFR (BEAKER) (test 84 mL/min/1.73 sq m ESTIMATED GFR IS NOT tlrn=7774) ACCURATE CREATININE CLEARANCE IN PREDICTING GLOMERULAR FILTRATION RATE. ESTIMATED GFR IS NOT APPLICABLE FOR DIALYSIS PATIENTS. FastingLIPID [id number] 07:30:00 Test Item Value Reference Range Comments TRIGLYCERIDES (BEAKER) (test 57 mg/dL Specimen slightly hemolyzed czpm=297) CHOLESTEROL (BEAKER) (test 83 mg/dL Specimen slightly hemolyzed ocgg=255) HDL CHOLESTEROL (BEAKER) (test 37 mg/dL zpfn=434) LDL CHOLESTEROL CALCULATED 35 mg/dL (BEAKER) (test kgwx=612) Triglyceride Reference Range: Low Risk <150 Borderline 150- 199 High Risk 200-499 Very High Risk >=500Cholesterol Reference Range: Low Risk <200 Borderline 200-239 High Risk > 240HDL Cholesterol Reference Range: Low Risk >=60 High Risk <40LDL Cholesterol Reference Range: Optimal <100 Near Optimal 100-129 Borderline 130-159 High 160-189 Very High >=190 FastingTROPONIN [id number] 07:28:00 Test Item Value Reference Range Comments TROPONIN I (BEAKER) (test oeez=910) < ng/mL 0.00-0.03 Troponin I (TnI) levels [...] and persistent tachyarrhythmia.FastingCBC W/PLT COUNT & AUTO [id number] 05:43:00 Test Item Value Reference Range Comments WHITE BLOOD CELL COUNT (BEAKER) (test dugv=312) 7.9 K/ L 3.5-10.5 RED BLOOD CELL COUNT (BEAKER) (test dwcd=161) 3.40 M/ L 3.93-5.22 HEMOGLOBIN (BEAKER) (test whbv=066) 10.6 GM/DL 11.2-15.7 HEMATOCRIT (BEAKER) (test hhgg=826) 32.1 % 34.1-44.9 MEAN CORPUSCULAR VOLUME (BEAKER) (test wtze=661) 94.4 fL 79.4-94.8 MEAN CORPUSCULAR HEMOGLOBIN (BEAKER) (test 31.2 pg 25.6-32.2 qivh=340) MEAN CORPUSCULAR HEMOGLOBIN CONC (BEAKER) (test 33.0 GM/DL 32.2-35.5 srei=383) RED CELL DISTRIBUTION WIDTH (BEAKER) (test 12.0 % 11.7-14.4 mtws=404) PLATELET COUNT (BEAKER) (test hyxj=046) 168 K/CU MM 150-450 MEAN PLATELET VOLUME (BEAKER) (test kvqf=076) 9.6 fL 9.4-12.3 NUCLEATED RED BLOOD CELLS (BEAKER) (test 0 /100 WBC 0-0 atcn=808) NEUTROPHILS RELATIVE PERCENT (BEAKER) (test 57 % xthq=128) LYMPHOCYTES RELATIVE PERCENT (BEAKER) (test 28 % viqs=861) MONOCYTES RELATIVE PERCENT (BEAKER) (test 12 % jnna=860) EOSINOPHILS RELATIVE PERCENT (BEAKER) (test 2 % jdkk=547) BASOPHILS RELATIVE PERCENT (BEAKER) (test 0 % zffg=859) NEUTROPHILS ABSOLUTE COUNT (BEAKER) (test 4.50 K/ L 1.56-6.13 geti=552) LYMPHOCYTES ABSOLUTE COUNT (BEAKER) (test 2.23 K/ L 1.18-3.74 hulv=510) MONOCYTES ABSOLUTE COUNT (BEAKER) (test 0.98 K/ L 0.24-0.36 hlok=407) EOSINOPHILS ABSOLUTE COUNT (BEAKER) (test 0.15 K/ L 0.04-0.36 msgv=228) BASOPHILS ABSOLUTE COUNT (BEAKER) (test 0.03 K/ L 0.01-0.08 gygp=332) IMMATURE GRANULOCYTES-RELATIVE PERCENT (BEAKER) 0 % 0-1 (test qpfh=8454) NV, ANGIOGRAM, [id number] 11:37:00Reason for exam:->TIAsFINAL REPORT November 22, 2017 [...] guidance and strict sterile technique a 4 Montenegrin femoral sheath was inserted into the right common femoral artery. Through the sheath a 4 Montenegrin vertebral catheter was then advanced over the [...] demonstrates a critical supraclinoid ICA stenosis of bybvkpimzczda95%. There is delayed antegrade flow. The venous [...] MDReport Verified Date/Time: 11/22/2017 11:37:47 Reading Location: [facility] Y018 Neuro Angio Reading Room POCT-GLUCOSE [id number] 07:43:00 Test Item Value Reference Range Comments POC-GLUCOSE METER (BEAKER) 149 mg/dL 70-[address] [facility] [address] [place] (test qkjh=5258) [facility] [address] [id number] 06:46:00 Test Item Value Reference Range Comments MAGNESIUM (BEAKER) (test crsv=345) 2.0 mg/dL 1.6-2.6 BASIC METABOLIC [id number] 06:46:00 Test Item Value Reference Range Comments SODIUM (BEAKER) (test 133 meq/L 136-145 lzma=445) POTASSIUM (BEAKER) (test 4.4 meq/L 3.5-5.1 vpnf=450) CHLORIDE (BEAKER) (test 99 meq/L 98-107 habl=034) CO2 (BEAKER) (test 25 meq/L 22-29 hhcf=662) BLOOD UREA NITROGEN 11 mg/dL 7-21 (BEAKER) (test pjnh=561) CREATININE (BEAKER) (test 0.65 mg/dL 0.57-1.25 tzfm=235) GLUCOSE RANDOM (BEAKER) 162 mg/dL 70-105 (test khtt=420) CALCIUM (BEAKER) (test 9.5 mg/dL 8.4-10.2 ztxe=730) EGFR (BEAKER) (test 87 mL/min/1.73 sq m ESTIMATED GFR IS NOT mzco=0126) ACCURATE CREATININE CLEARANCE IN PREDICTING GLOMERULAR FILTRATION RATE. ESTIMATED GFR IS NOT APPLICABLE FOR DIALYSIS PATIENTS. [id number] 06:33:00 Test Item Value Reference Range Comments PROTIME (BEAKER) (test huyx=058) 15.5 seconds 11.7-14.7 INR (BEAKER) (test yedf=731) 1.2 <=5.9 PARTIAL THROMBOPLASTIN TIME (BEAKER) (test 35.9 seconds 22.5-36.0 gmjj=556) RECOMMENDED COUMADIN/WARFARIN INR THERAPY RANGESSTANDARD DOSE: 2.0 - 3.0 Includes: PROPHYLAXIS forvenous thrombosis, systemic embolization; TREATMENT for venous thrombosis and/or pulmonary embolus.HIGH RISK: Target INR is 2.5-3.5 for patients with mechanical heart valves.POCT-GLUCOSE [id number] 06:22:00 Test Item Value Reference Range Comments POC-GLUCOSE METER (BEAKER) 161 mg/dL 70-110 TESTED AT [address] (test tthb=1301) [place] [address] POCT-GLUCOSE [id number] 02:08:00 Test Item Value Reference Range Comments POC-GLUCOSE METER (BEAKER) 182 mg/dL 70-110 TESTED AT [address] (test ozke=9414) [place] [address] POCT-GLUCOSE [id number] 19:30:00 Test Item Value Reference Range Comments POC-GLUCOSE METER (BEAKER) 146 mg/dL 70-110 TESTED AT [address] (test ymmy=7700) [place] [address] CT, CAROTID, [id number] 14:54:00Please include aortaFINAL REPORT CT angiogram of [...] the left ICA terminus. There is also psbm-kz-zpiuffqe multifocal narrowing of the right carotid siphon. [...] MDReport Verified Date/Time: 11/21/2017 14:54:26 Reading Location: [facility] Radiology Reading Room H MEJIA [id number] 14:54:00FINAL REPORT CT angiogram of the upper [...] the left ICA terminus. There is also zelf-vj-gwogiasz multifocal narrowing of the right carotid siphon. [...] Mcdaniels Verified Date/Time: 11/21/2017 14:54:26 Reading Location: [facility] Radiology Reading Room POCT-GLUCOSE [id number] 11:50:00 Test Item Value Reference Range Comments POC-GLUCOSE METER (BEAKER) 153 mg/dL 70-110 TESTED AT [place] [id number] [place] (test choi=6218) [facility] [address] POCT-GLUCOSE [id number] 08:08:00 Test Item Value Reference Range Comments POC-GLUCOSE METER (BEAKER) 125 mg/dL 70-110 TESTED AT [address] (test azgm=4021) [place] [address] [id number] 06:43:00 Test Item Value Reference Range Comments MAGNESIUM (BEAKER) (test sorb=102) 2.1 mg/dL 1.6-2.6 BASIC METABOLIC [id number] 06:43:00 Test Item Value Reference Range Comments SODIUM (BEAKER) (test 136 meq/L 136-145 nxta=877) POTASSIUM (BEAKER) (test 4.0 meq/L 3.5-5.1 llej=620) CHLORIDE (BEAKER) (test 101 meq/L 98-107 fckj=171) CO2 (BEAKER) (test 27 meq/L 22-29 ynhb=078) BLOOD UREA NITROGEN 12 mg/dL 7-21 (BEAKER) (test tekr=436) CREATININE (BEAKER) (test 0.68 mg/dL 0.57-1.25 ilhx=270) GLUCOSE RANDOM (BEAKER) 122 mg/dL 70-105 (test wtgm=533) CALCIUM (BEAKER) (test 9.5 mg/dL 8.4-10.2 axhm=153) EGFR (BEAKER) (test 83 mL/min/1.73 sq m ESTIMATED GFR IS NOT cnfy=5242) ACCURATE CREATININE CLEARANCE IN PREDICTING GLOMERULAR FILTRATION RATE. ESTIMATED GFR IS NOT APPLICABLE FOR DIALYSIS PATIENTS. TSH/FREE T4 IF [id number] 22:12:00 Test Item Value Reference Range Comments THYROID STIMULATING HORMONE (BEAKER) (test 4.66 uIU/mL 0.35-4.94 rqdq=015) [id number] 21:54:00 Test Item Value Reference Range Comments MAGNESIUM (BEAKER) (test paqw=829) 2.0 mg/dL 1.6-2.6 BASIC METABOLIC [id number] 21:54:00 Test Item Value Reference Range Comments SODIUM (BEAKER) (test 134 meq/L 136-145 zwqn=409) POTASSIUM (BEAKER) (test 4.1 meq/L 3.5-5.1 hajl=534) CHLORIDE (BEAKER) (test 101 meq/L 98-107 pibq=785) CO2 (BEAKER) (test 24 meq/L 22-29 vaeb=078) BLOOD UREA NITROGEN 11 mg/dL 7-21 (BEAKER) (test dcbo=346) CREATININE (BEAKER) (test 0.65 mg/dL 0.57-1.25 uvtz=730) GLUCOSE RANDOM (BEAKER) 126 mg/dL 70-105 (test ucpa=081) CALCIUM (BEAKER) (test 9.5 mg/dL 8.4-10.2 dmom=959) EGFR (BEAKER) (test 87 mL/min/1.73 sq m ESTIMATED GFR IS NOT npzl=0895) ACCURATE CREATININE CLEARANCE IN PREDICTING GLOMERULAR FILTRATION RATE. ESTIMATED GFR IS NOT APPLICABLE FOR DIALYSIS PATIENTS. LIPID [id number] 21:54:00 Test Item Value Reference Range Comments TRIGLYCERIDES (BEAKER) (test yimi=980) 70 mg/dL CHOLESTEROL (BEAKER) (test zzey=277) 101 mg/dL HDL CHOLESTEROL (BEAKER) (test lypl=075) 39 mg/dL LDL CHOLESTEROL CALCULATED (BEAKER) (test 48 mg/dL qujy=972) Triglyceride Reference Range: Low Risk <150 Borderline 150- 199 High Risk 200-499 Very High Risk >=500Cholesterol Reference Range: Low Risk <200 Borderline 200-239 High Risk > 240HDL Cholesterol Reference Range: Low Risk >=60 High Risk <40LDL Cholesterol Reference Range: Optimal <100 Near Optimal 100-129 Borderline 130-159 High 160-189 Very High >=190POCT-GLUCOSE [id number] 21:35:00 Test Item Value Reference Range Comments POC-GLUCOSE METER (BEAKER) 128 mg/dL 70-110 TESTED AT [address] (test okhm=3704) [place] [address] POCT-GLUCOSE [id number] 17:55:00 Test Item Value Reference Range Comments POC-GLUCOSE METER (BEAKER) 113 mg/dL 70-110 TESTED AT [address] (test tmrl=6648) [place] [address] POCT-GLUCOSE [id number] 12:32:00 Test Item Value Reference Range Comments POC-GLUCOSE METER (BEAKER) 120 mg/dL 70-110 TESTED AT [address] (test rkwr=1350) [place] [address] MR, MRA, BRAIN, WITHOUT [id number] 11:33:00Reason for exam:-> Ischemic Stroke EvaluationFINAL REPORT MRA Head and Neck CLINICAL HISTORY: CVA TECHNIQUE: MRA of the head utilizing 3-D npkv-gc-lusowk technique, with 3-D reconstructions. MRA of the [...] There is no other evidence for a [place] proximal branch vessel occlusion. There [...] Verified Date/Time: 11/20/2017 11:33:14 Reading Location : [facility] C013 Neuro Reading Room MR, MRA, NECK, WITHOUT IV [id number] 11:33: 00Reason for exam:->Ischemic Stroke EvaluationFINAL REPORT MRA Head and Neck CLINICAL HISTORY: CVA TECHNIQUE: MRA of the head utilizing 3-D cvox-mh-gsovzh technique, with 3-D reconstructions. MRA of the neck utilizing 2-D and 3-D ycpj-mq-dwrgwx technique, with 3-D reconstructions. COMPARISON: None FINDINGS: [...] There is no other evidence for a [place] proximal branch vessel occlusion. There [...] Verified Date/Time: 11/20/2017 11 :33:14 Reading Location: [address] Neuro Reading Room MR, BRAIN, WITHOUT [id number] 11:05:00Reason for exam:->Ischemic Stroke EvaluationFINAL REPORT MRI [...] Koch Verified Date/Time: 11/20/2017 11:05:05 Reading Location: [address] Neuro Reading Room HEMOGLOBIN [id number] 09:08:00 Test Item Value Reference Range Comments HEMOGLOBIN A1C (BEAKER) (test cwsx=369) 6.1 % 4.3-6.1 POCT-GLUCOSE [id number] 08:27:00 Test Item Value Reference Range Comments POC-GLUCOSE METER (BEAKER) 125 mg/dL 70-110 TESTED AT [address] (test fuyg=5569) [facility] [address] TSH/FREE T4 IF [id number] 07:47:00 Test Item Value Reference Range Comments THYROID STIMULATING HORMONE (BEAKER) (test 5.97 uIU/mL 0.35-4.94 gzoc=957) VITAMIN [id number] 07:44:00 Test Item Value Reference Range Comments VITAMIN B12 (BEAKER) (test cxew=126) 857 pg/mL 213-816 CBC W/PLT COUNT & AUTO [id number] 06:47:00 Test Item Value Reference Range Comments WHITE BLOOD CELL COUNT (BEAKER) (test cvzz=062) 8.3 K/ L 3.5-10.5 RED BLOOD CELL COUNT (BEAKER) (test ddzy=272) 4.11 M/ L 3.93-5.22 HEMOGLOBIN (BEAKER) (test hooo=462) 13.4 GM/DL 11.2-15.7 HEMATOCRIT (BEAKER) (test xssr=255) 39.7 % 34.1-44.9 MEAN CORPUSCULAR VOLUME (BEAKER) (test egsu=435) 96.6 fL 79.4-94.8 MEAN CORPUSCULAR HEMOGLOBIN (BEAKER) (test 32.6 pg 25.6-32.2 vcke=919) MEAN CORPUSCULAR HEMOGLOBIN CONC (BEAKER) (test 33.8 GM/DL 32.2-35.5 dznn=718) RED CELL DISTRIBUTION WIDTH (BEAKER) (test 12.1 % 11.7-14.4 qfvk=020) PLATELET COUNT (BEAKER) (test ychi=509) 209 K/CU MM 150-450 MEAN PLATELET VOLUME (BEAKER) (test pzvf=089) 9.7 fL 9.4-12.3 NUCLEATED RED BLOOD CELLS (BEAKER) (test 0 /100 WBC 0-0 peya=722) NEUTROPHILS RELATIVE PERCENT (BEAKER) (test 49 % kpcp=058) LYMPHOCYTES RELATIVE PERCENT (BEAKER) (test 35 % bled=655) MONOCYTES RELATIVE PERCENT (BEAKER) (test 12 % wuqi=990) EOSINOPHILS RELATIVE PERCENT (BEAKER) (test 4 % hpyq=395) BASOPHILS RELATIVE PERCENT (BEAKER) (test 1 % ekdb=813) NEUTROPHILS ABSOLUTE COUNT (BEAKER) (test 4.02 K/ L 1.56-6.13 byas=862) LYMPHOCYTES ABSOLUTE COUNT (BEAKER) (test 2.89 K/ L 1.18-3.74 jvzx=431) MONOCYTES ABSOLUTE COUNT (BEAKER) (test 0.95 K/ L 0.24-0.36 qvig=699) EOSINOPHILS ABSOLUTE COUNT (BEAKER) (test 0.35 K/ L 0.04-0.36 umjn=409) BASOPHILS ABSOLUTE COUNT (BEAKER) (test 0.04 K/ L 0.01-0.08 chbb=082) IMMATURE GRANULOCYTES-RELATIVE PERCENT (BEAKER) 0 % 0-1 (test qwps=5796) POCT-GLUCOSE [id number] 22:09:00 Test Item Value Reference Range Comments POC-GLUCOSE METER (BEAKER) 130 mg/dL 70-[address] [facility] [address] [place] (test akze=8339) [facility] [address]
--- OUTSIDE RECORDS SUMMARY | 2019-08-18 20:18 | XMS REPORT ---
[...] not defined Levothyroxine [facility] [address]-92 Active not defined Sodium Vitamin B-12 [facility] [address] Active not defined Metformin HCl [facility] 62298463642 500 MG Orally Active 1 tablet with Twice a day meals Sertraline HCl [facility] 13530707527 25 Orally Once Active 1 tablet a day Bactrim DS [facility] 94022407105 800-160 MG December Active 1 tablet Orally Twice a 2018 Vitamin E [facility] [address] Active not defined Cranberry [facility] [address] Active not defined Concentrate Rosuvastatin [facility] 85559943257 40 Active TAKE 1 TABLET Calcium BY MOUTH DAILY Cyanocobalamin [facility] [address]-66 1000 MCG/15ML Active 15 ml Orally Once a day Tylenol Arthritis ND 0 Active not defined Pain Valsartan [facility] 92951048378 160 MG Orally Active 1 tablet Once a day Bactrim DS [facility] 18560297625 800-160 MG January Active 1 tablet Orally Twice a , 2017 Crestor [facility] 21613774708 40 MG Active 1 EACH ONCE A DAY Multivitamin [facility] [address]97 Active not defined Probiotic [facility] [address] Active not defined Plavix [facility] 57404554459 75 MG Orally Active 1 tablet Once a day HydrALAZINE HCl [facility] 53891952304 100 MG Orally December 05, Active as directed Three times a 2017 day Toviaz [facility] 82294309807 8 MG Orally Active 1 tablet Once a day Verapamil HCl [facility] [address]-23 Active not defined Omeprazole [facility] 66776376637 40 Active TAKE 1 CAPSULE BY MOUTH EVERY DAY Fluconazole ND 42893005549 150 MG Orally Sep 15, Active 1 tablet one tab a week 2019 today and may repeat one tab in 1 week if no improvement Estradiol [facility] 07443435965 0.1 MG/GM January Active as directed Vaginal Two 22, times a Week 2018 Metformin HCl [facility] 94233858162 500 Active TAKE 1 TABLET BY MOUTH TWICE DAILY Omeprazole [facility] 02857901099 40 MG orally Active 1 EACH ONCE A daily in AM DAY Eliquis [facility] 25482619447 5 MG Orally Active 1 tablet twice a day Sertraline HCl [facility] 60871845992 25 MG Orally Active 1 tablet Once a day Carvedilol ND 45067734232 25 MG Orally Active as directed Vitamin D3 [facility] 94823802469 1000 UNIT Active 1 capsule Orally Once a day Amlodipine [facility] 53762871423 10 MG Orally Active 1 tablet Besylate Once a day Coreg [facility] 96188391476 25 MG Orally Active not defined HydrALAZINE HCl [facility] 68783825064 100 MG Orally Active 1 tablet with Three times a food day Irbesartan [facility] 36445650164 150 MG Orally Active 1 tablet Once a day Results No Known Results Summary Purpose eClinicalWorks Submission
--- OUTSIDE RECORDS SUMMARY | 2019-08-18 20:18 | XMS REPORT ---
[...] End Status Dosage System Date Date Toviaz [facility] 19393728371 8 MG Orally Active 1 tablet Once a day Valsartan [facility] 06004328529 160 MG Orally Active 1 tablet Once a day Tylenol Arthritis NDC 0 Active not defined Pain Metformin HCl [facility] 67900889172 500 MG Orally Active 1 tablet with Twice a day meals Estradiol [facility] 15312168123 0.1 MG/GM January Active as directed Vaginal Two 22, times a Week 2018 Probiotic [facility] 38647-41272 Active not defined Cranberry [facility] 21966-00158 Active not defined Concentrate Bactrim DS ND 79860414547 800-160 MG December Active 1 tablet Orally Twice a 2018 Cyanocobalamin [facility] [address]-57 1000 MCG/15ML Active 15 ml Orally Once a day HydrALAZINE HCl [facility] 50648131082 100 MG Orally December 05, Active as directed Three times a 2017 day Eliquis [facility] 43847465517 5 MG Orally Active 1 tablet twice a day Omeprazole [facility] 37031151983 40 Active TAKE 1 CAPSULE BY MOUTH EVERY DAY Levothyroxine [facility] [address]-96 Active not defined Sodium Verapamil HCl [facility] [address]-00 Active not defined Irbesartan [facility] 50428083551 150 MG Orally Active 1 tablet Once a day Sertraline HCl [facility] 89139454951 25 Orally Once Active 1 tablet a day Bactrim DS [facility] 12724303684 800-160 MG January Active 1 tablet Orally Twice a 2017 Multivitamin [facility] 71010-85902 Active not defined Sertraline HCl [facility] 47966587459 25 MG Orally Active 1 tablet Once a day Metformin HCl [facility] 46001065196 500 Active TAKE 1 TABLET BY MOUTH TWICE DAILY Vitamin B-12 [facility] 63752-74015 Active not defined Levetiracetam [facility] 32428601730 250 MG Orally Active 1 tablet every 12 hrs Amlodipine [facility] 79331032579 10 MG Orally Active 1 tablet Besylate Once a day Magnesium ND 0 Active not defined HydrALAZINE HCl [facility] 59223318367 100 MG Orally Active 1 tablet with Three times a food day Carvedilol [facility] 98976363315 25 MG Orally Active as directed Vitamin E [facility] 10665-19812 Active not defined Coreg [facility] 41494831205 25 MG Orally Active not defined Vitamin D3 [facility] 31706437220 1000 UNIT Active 1 capsule Orally Once a day Ranitidine [facility] 25125953961 Active not defined Rosuvastatin [facility] 39221397279 40 Active TAKE 1 TABLET Calcium BY MOUTH DAILY Plavix [facility] 20137390973 75 MG Orally Active 1 tablet Once a day Omeprazole [facility] 51813360458 40 MG orally Active 1 EACH ONCE A daily in AM DAY Fluconazole [facility] 09219751172 150 MG Orally Sep 15, Active 1 tablet one tab a week 2019 today and may repeat one tab in 1 week if no improvement Crestor [facility] 42082844918 40 MG Active 1 EACH ONCE A DAY Results No Known Results Summary Purpose eClinicalWorks Submission
--- OUTSIDE RECORDS SUMMARY | 2019-08-18 20:19 | XMS REPORT ---
[...] Status Dosage System Date Date Vitamin B-12 [facility] [address] Active not defined Levothyroxine [facility] 63623961884 125 MCG Orally Active 1 tablet Sodium Once a day in the morning on an empty stomach Crestor [facility] 47346883503 40 MG Active 1 EACH ONCE A DAY Estradiol [facility] 32417248330 0.1 MG/GM January Active as Vaginal Two 22, directed times a Week 2018 Irbesartan [facility] 90943760955 150 MG Orally Active 1 tablet Once a day Cyanocobalamin [facility] [address]-68 1000 MCG/15ML Active 15 ml Orally Once a day Methenamine [facility] 28415509353 1 GM Orally Aug 02September Active 1 tablet Hippurate Twice a day 2019 Probiotic [facility] 60733804497 - Orally Active not defined Eliquis [facility] 59395883758 5 MG Orally Active 1 tablet twice a day Vitamin E [facility] 91912421128 400 UNIT Active not Orally defined HydrALAZINE HCl [facility] 54910805891 100 MG Orally Active 1 tablet Three times a with food day Coreg [facility] 07871384167 25 MG Orally Active not defined Tylenol Arthritis ND 0 Active not Pain defined Levetiracetam [facility] 99373690683 250 MG Orally Active 1 tablet every 12 hrs Cranberry [facility] [address]90-[address] 425 MG Orally Active 1 capsule Concentrate with meals Multivitamin [facility] 49450-[address]55 Active not defined HydrALAZINE HCl [facility] 78633558928 100 MG Orally December 05, Active as Three times a 2017 directed day Metformin HCl [facility] 48895370205 500 MG Orally Active 1 tablet Twice a day with meals Plavix [facility] 84316767721 75 MG Orally Active 1 tablet Once a day Omeprazole [facility] 24107439004 40 Active TAKE 1 CAPSULE BY MOUTH EVERY DAY Omeprazole [facility] 86619660715 40 MG orally Active 1 EACH daily in AM ONCE A DAY Sertraline HCl [facility] 59282799875 25 MG Orally Active 1 tablet Once a day Carvedilol ND 78810059599 25 MG Orally Active as directed Magnesium [facility] 13135118676 500 MG Orally Active not defined Vitamin D3 [facility] 50784888989 1000 UNIT Active 1 capsule Orally Once a day Bactrim [facility] 00865868828 400-80 MG Aug 02, Aug 07, Active 1 tablet Orally BID 2019 2019 Metformin HCl [facility] 18250907681 500 Active TAKE 1 TABLET BY MOUTH TWICE DAILY Rosuvastatin [facility] 12977511245 40 Active TAKE 1 Calcium TABLET BY MOUTH DAILY Amlodipine [facility] 61448919178 10 MG Orally Active 1 tablet Besylate Once a day Results No Known Results Summary Purpose eClinicalWorks Submission
--- OUTSIDE RECORDS SUMMARY | 2019-08-18 20:19 | XMS REPORT ---
[...] Date Date Levothyroxine [facility] 07752138446 125 MCG Orally Active 1 tablet Sodium Once a day in the morning on an empty stomach Cranberry [facility] [address] 425 MG Orally Active 1 capsule Concentrate with meals Plavix ND 53311146051 75 MG Orally Active 1 tablet Once a day Eliquis [facility] 03044648926 5 MG Orally Active 1 tablet twice a day Rosuvastatin [facility] 49689523953 40 Active TAKE 1 Calcium TABLET BY MOUTH DAILY Levetiracetam [facility] 31491872561 250 MG Orally Active 1 tablet every 12 hrs Tylenol Arthritis ND 0 Active not Pain defined Vitamin B-12 [facility] [address]677-[address] Active not defined Estradiol [facility] 82749914402 0.1 MG/GM January Active as Vaginal Two , directed times a Week 2018 Irbesartan [facility] 29274146419 150 MG Orally Active 1 tablet Once a day Metformin HCl [facility] 14553973445 500 MG Orally Active 1 tablet Twice a day with meals Amlodipine [facility] 93238514907 10 MG Orally Active 1 tablet Besylate Once a day Carvedilol [facility] 36422807550 25 MG Orally Active as directed Omeprazole [facility] 34240936615 40 MG orally Active 1 EACH daily in AM ONCE A DAY Sertraline HCl [facility] 20473005608 25 MG Orally Active 1 tablet Once a day HydrALAZINE HCl [facility] 26328771603 100 MG Orally Active 1 tablet Three times a with food day HydrALAZINE HCl [facility] 58452443511 100 MG Orally December 05, Active as Three times a 2017 directed day Cyanocobalamin [facility] [address]-09 1000 MCG/15ML Active 15 ml Orally Once a day Omeprazole [facility] 36462756645 40 Active TAKE 1 CAPSULE BY MOUTH EVERY DAY Crestor [facility] 56112264848 40 MG Active 1 EACH ONCE A DAY Vitamin E [facility] 35662263246 400 UNIT Orally Active not defined Coreg [facility] 93436425670 25 MG Orally Active not defined Vitamin D3 [facility] 85639224137 1000 UNIT Active 1 capsule Orally Once a day Metformin HCl [facility] 08738643998 500 Active TAKE 1 TABLET BY MOUTH TWICE DAILY Multivitamin [facility] [address] Active not defined Probiotic [facility] 92422531162 - Orally Active not defined Magnesium [facility] 95252349077 500 MG Orally Active not defined Results No Known Results Summary Purpose eClinicalWorks Submission
[2019-08-18] MEDS ORDERED: ONDANSETRON 4 MG/2 ML VIAL ONE ×2 (21:26→22:14)
[2019-08-18] MEDS ORDERED: NA CHLORIDE 0.9% 250 ML ONE (21:27)
[2019-08-18] MEDS ORDERED: ONDANSETRON 4 MG (ODT) TAB ONE (21:40)
[2019-08-18 21:52] LABS: Absolute Lymphocytes (CBC) 2.2 K/uL (0.7-4.9); Basophils % 0.4 % (0-1.3); Hematocrit 38.8 % (36.0-45.0); Lymphocytes % 27.3 % (15.3-44.8); MPV 7.9 fL (7.6-11.3); RBC Red Blood Cell Count 4.04 M/uL (3.86-4.86)
[2019-08-18 21:59] LABS: Urine Bacteria <20 /HPF (<20); Urine RBC <5 /HPF (NONE SEEN)
[2019-08-18 22:00] LABS: Urine Culture Reflex Order NOT NEEDED
[2019-08-18 22:11] LABS: ALT/SGPT 33 U/L (12-78); AST/SGOT 26 U/L (15-37); Alkaline Phosphatase 105 U/L (45-117); BUN Blood Urea Nitrogen 10 mg/dL (7-18); Bicarbonate 27 mmol/L (21-32); Bilirubin Direct 0.2 mg/dL (0-0.2); Bilirubin Total 0.5 mg/dL (0.2-1.0); Glucose Level 143 mg/dL (74-106); Lipase 112 U/L (73-393); Protein, Total 7.5 g/dL (6.4-8.2); Sodium Level 134 mmol/L (136-145)
[2019-08-18] MEDS ORDERED: MEPERIDINE HCL 25 MG/0.5 ML ONE (22:21)
[2019-08-18 22:30] LABS: Blood Morphology Comment NOTED (NOT SEEN); Burr Cells 1+; Platelet Estimate ADEQ; Urine White Blood Cell Casts OK
[2019-08-18 23:24] LABS: Urine Blood NEGATIVE (NEG); Urine Glucose NEGATIVE (NEG); Urine Protein NEGATIVE (NEG); Urine Specific Gravity 1.015 (1.005-1.030)
--- NOTE | 2019-08-19 01:35 | ER ---
Nurse's Notes [facility] Name: Radha Lara Age: 84 yrs Sex: Female : 1935 Arrival Date: 08/18/2019 Time: 20:16 Bed 13 Private MD: Diagnosis: Viral syndrome;Vomiting, unspecified Presentation: 08/18 20:28 Presenting complaint: Sinus congestion, body aches, headache, nausea, and malaise x 2 hb days. Transition of care: patient was not received from another setting of care. Onset of symptoms was August 17, 2019. Risk Assessment: Do you want to hurt yourself or someone else? Patient reports no desire to harm self or others. Care prior to arrival: Medication(s) given: Zofran and Tylenol at 1730. 20:28 Method Of Arrival: Wheelchair hb 20:28 Acuity: YOLANDE 3 hb 21:00 Initial Sepsis Screen: Does the patient meet any 2 criteria? No. Patient's initial sepsis screen is negative. Does the patient have a suspected source of infection? No. Patient's initial sepsis screen is negative. Triage Assessment: 21:00 GI: Reports nausea. wh Historical: - Allergies: 20:30 Aspirin; hb 20:30 Clonidine; hb 20:30 Codeine; hb 20:30 Ibuprofen; hb 20:30 Iodinated Contrast Media - IV Dye; hb 20:30 Lisinopril; hb 20:30 Niacin; hb 20:30 Nitrofurantoin; hb 20:30 nitrous oxide; hb 20:30 vicoden; hb 20:30 Zoloft; hb - Immunization history:: Adult Immunizations up to date. - Coronavirus screen:: The patient has NOT traveled to [place], [place], or [place] in the past 14 days. The patient has NOT had contact with known/suspected case of Coronavirus? Proceed with normal triage procedures. - Social history:: Smoking status: Patient denies any tobacco usage or history of. - Family history:: not pertinent. - Ebola Screening: : No symptoms or risks identified at this time. - Hospitalizations: : No recent hospitalization is reported. Screenin:00 Abuse screen: Denies threats or abuse. Denies injuries from another. Nutritional wh screening: No deficits noted. Tuberculosis screening: No symptoms or risk factors identified. Fall Risk None identified. Assessment: 20:45 General: Appears in no apparent distress. Behavior is calm, cooperative, appropriate wh for age. Pain: Denies pain. Neuro: Level of Consciousness is awake, alert, obeys commands, Oriented to person, place, time, situation, Appropriate for age. Cardiovascular: Heart tones S1 S2. Respiratory: Airway is patent Respiratory effort is even, unlabored, Respiratory pattern is regular, symmetrical, Breath sounds are clear bilaterally. GI: Abdomen is flat, non-distended. : No signs and/or symptoms were reported regarding the genitourinary system. EENT: Throat is pink. Derm: Skin is intact, is healthy with good turgor, Skin is pink, warm \T\ dry. normal. Musculoskeletal: Circulation, motion, and sensation intact. 22:00 Reassessment: Patient appears in no apparent distress at this time. No changes from previously documented assessment. Patient and/or family updated on plan of care and expected duration. Pain level reassessed. Patient is alert, oriented x 3, equal unlabored respirations, skin warm/dry/pink. 23:02 Reassessment: Patient appears in no apparent distress at this time. No changes from wh previously documented assessment. Patient and/or family updated on plan of care and expected duration. Pain level reassessed. Patient is alert, oriented x 3, equal unlabored respirations, skin warm/dry/pink. Patient states feeling better. Patient states symptoms have improved. 08/19 00:10 Reassessment: Patient appears in no apparent distress at this time. No changes from wh previously documented assessment. Patient and/or family updated on plan of care and expected duration. Pain level reassessed. Patient is alert, oriented x 3, equal unlabored respirations, skin warm/dry/pink. Patient states feeling better. Patient states symptoms have improved. 01:24 Reassessment: Patient appears in no apparent distress at this time. No changes from previously documented assessment. Patient and/or family updated on plan of care and expected duration. Pain level reassessed. Patient is alert, oriented x 3, equal unlabored respirations, skin warm/dry/pink. Patient states feeling better. Patient states symptoms have improved. Vital Signs: 08/18 20:30 BP 151 / 62; Pulse 73; Resp 16; Temp 98.9; Pulse Ox 96% on R/A; Weight 61.23 kg; Height hb 5 ft. 2 in. (157.48 cm); Pain 3/10; 22:00 BP 146 / 50; Pulse 52; Resp 18; Pulse Ox 95% on R/A; wh 23:30 BP 129 / 53; Pulse 55; Resp 18; Pulse Ox 96% on R/A; 08/19 01:00 BP 134 / 75; Pulse 61; Resp 18; Pulse Ox 92% on R/A; 08/18 20:30 Body Mass Index 24.69 (61.23 kg, 157.48 cm) hb ED Course: 08/18 20:16 Patient arrived in ED. jg7 20:29 Triage completed. hb 20:30 Arm band placed on. hb 20:32 Jessica Lucero is Primary Nurse. wh 20:44 Chris Hammond MD is Attending Physician. rn 21:00 Patient has correct armband on for positive identification. Bed in low position. Call light in reach. Side rails up X 1. Pulse ox on. NIBP on. 21:05 XRAY Chest (1 view) In Process Unspecified. EDMS 21:45 Missed attempt(s): 24 gauge Bleeding controlled, band aid applied, catheter tip intact. oe 21:52 CT completed. Patient tolerated procedure well. Patient moved to CT via stretcher. Patient moved back from CT. 22:04 CT Abd/Pelvis - Without Contrast In Process Unspecified. EDMS 22:10 Missed attempt(s): 22 gauge in left forearm. fc 22:15 Inserted 18 gauge 10 cm midline to right upper arm basilic vein on first attempt. Line fc with good blood return and flushes well. 08/19 00:28 Head Brain Wo Cont In Process Unspecified. EDMS 01:38 No provider procedures requiring assistance completed. IV discontinued, intact, wh bleeding controlled, No redness/swelling at site. Administered Medications: 08/18 21:39 Not Given ( changed ordered): Zofran 4 mg IVP once; over 2 minutes 21:39 Drug: Zofran 4 mg Route: PO; 22:13 Follow up: Response: No adverse reaction; Nausea unchanged 22:14 Drug: NS 0.9% 250 ml Route: IV; Rate: 1 bolus; Site: right upper arm; 08/19 01:40 Follow up: Response: No adverse reaction; IV Status: Completed infusion 08/18 22:20 Drug: Zofran 4 mg Route: IVP; Site: right upper arm; 23:20 Follow up: Response: No adverse reaction; Nausea is decreased 22:22 Drug: Demerol - Meperidine 12.5 mg Route: IVP; Site: right upper arm; 23:21 Follow up: Response: No adverse reaction; Pain is decreased; RASS: Alert and Calm (0) Outcome: 08/19 01:34 Discharge ordered by . rn 01:38 Discharged to home via wheelchair, with family. 01:38 Condition: stable 01:38 Discharge instructions given to patient, family, Instructed on discharge instructions, follow up and referral plans. medication usage, POC Demonstrated understanding of instructions, follow-up care, medications, POC Prescriptions given X 1. 01:55 Patient left the ED. Signatures: Dispatcher [employer] EDMS Rizwan Sotelo Felicia, RN RN fc Nieto, Roman, MD MD rn Baxter, Heather, RN RN hb [place], [place] oe Habalo, Winsy Beth Baker [id number] Corrections: (The following items were deleted from the chart) 08/18 23:04 23:02 Reassessment: Patient appears in no apparent distress at this time. No changes from previously documented assessment. Patient and/or family updated on plan of care and expected duration. Pain level reassessed. Patient states feeling better. Patient states symptoms have improved.
--- NOTE | 2019-08-19 01:35 | EDPHYS ---
Physician Documentation [facility] Name: Radha Lara Age: 84 yrs Sex: Female : 1935 Arrival Date: 08/18/2019 Time: 20:16 Bed 13 Private MD: ED Physician Chris Hammond HPI: 08/18 20:56 This 84 yrs old Female presents to ER via Wheelchair with complaints of Flu rn Symptoms, Vomiting. 20:56 The patient presents to the emergency department with nausea, vomiting. Onset: The rn symptoms/episode began/occurred yesterday. Possible causes: unknown. The symptoms are aggravated by nothing. The symptoms are alleviated by nothing. Severity of symptoms: At their worst the symptoms were mild in the emergency department the symptoms are unchanged. The patient has experienced similar episodes in the past. Reports hasn't felt well since yesterday, subjective fever, + generalized weakness with runny nose/cough/nausea/vomiting. . Historical: - Allergies: 20:30 Aspirin; hb 20:30 Clonidine; hb 20:30 Codeine; hb 20:30 Ibuprofen; hb 20:30 Iodinated Contrast Media - IV Dye; hb 20:30 Lisinopril; hb 20:30 Niacin; hb 20:30 Nitrofurantoin; hb 20:30 nitrous oxide; hb 20:30 vicoden; hb 20:30 Zoloft; hb - Immunization history:: Adult Immunizations up to date. - Coronavirus screen:: The patient has NOT traveled to [place], [place], or [place] in the past 14 days. The patient has NOT had contact with known/suspected case of Coronavirus? Proceed with normal triage procedures. - Social history:: Smoking status: Patient denies any tobacco usage or history of. - Family history:: not pertinent. - Ebola Screening: : No symptoms or risks identified at this time. - Hospitalizations: : No recent hospitalization is reported. ROS: 20:56 Constitutional: + fever Eyes: Negative for injury, pain, redness, and discharge, ENT: + rn runny nose Neck: Negative for injury, pain, and swelling, Cardiovascular: Negative for chest pain, palpitations, and edema, Respiratory: Negative for shortness of breath, wheezing, and pleuritic chest pain, Abdomen/GI: Negative for diarrhea, and constipation, MS/Extremity: Negative for injury and deformity, Skin: Negative for injury, rash, and discoloration, Neuro: Negative for headache, numbness, tingling, and seizure. Exam: 20:56 Constitutional: This is a well developed, well nourished patient who is awake, alert, rn and in no acute distress. Head/Face: Normocephalic, atraumatic. ENT: MMM, no stridor, no oral lesions Neck: Trachea midline, no thyromegaly or masses palpated, and no cervical lymphadenopathy. Supple, full range of motion without nuchal rigidity, or vertebral point tenderness. No Meningismus. Cardiovascular: Regular rate and rhythm. No pulse deficits. Respiratory: No increased work of breathing, no retractions or nasal flaring. Abdomen/GI: soft, mild tenderness left abdomen MS/ Extremity: Pulses equal, no cyanosis. Neurovascular intact. Full, normal range of motion. Equal circumference. Neuro: Awake and alert, GCS 15, oriented to person, place, time, and situation. Vital Signs: 20:30 BP 151 / 62; Pulse 73; Resp 16; Temp 98.9; Pulse Ox 96% on R/A; Weight 61.23 kg; Height hb 5 ft. 2 in. (157.48 cm); Pain 3/10; 22:00 BP 146 / 50; Pulse 52; Resp 18; Pulse Ox 95% on R/A; wh 23:30 BP 129 / 53; Pulse 55; Resp 18; Pulse Ox 96% on R/A; wh 08/19 01:00 BP 134 / 75; Pulse 61; Resp 18; Pulse Ox 92% on R/A; 08/18 20:30 Body Mass Index 24.69 (61.23 kg, 157.48 cm) [facility]: 08/18 20:44 Patient medically screened. rn 08/19 01:33 Differential diagnosis: viral gastroenteritis, gastroenteritis, viral syndrome, URI, rn dehydration. Data reviewed: vital signs, nurses notes, lab test result(s), EKG, radiologic studies, CT scan, plain films, and as a result, I will discharge patient. Counseling: I had a detailed discussion with the patient and/or guardian regarding: the historical points, exam findings, and any diagnostic results supporting the discharge/admit diagnosis, lab results, radiology results, the need for outpatient follow up, to return to the emergency department if symptoms worsen or persist or if there are any questions or concerns that arise at home. Response to treatment: the patient's symptoms have mildly improved after treatment, and as a result, I will discharge patient. Special discussion: I discussed with the patient/guardian in detail that at this point there is no indication for admission to the hospital. It is understood, however, that if the symptoms persist or worsen the patient needs to return immediately for re-evaluation. ED course: No acute findings on bloodwork/ct/cxr. Neg flu. Will dc home with prn zofran and return precautions.. 08/18 20:41 Order name: Flu 08/18 20:41 Order name: Strep; Complete Time: : 08/18 20:41 Order name: Influenza Screen (A ; Complete Time: : [facility] 08/18 20:53 Order name: Basic Metabolic Panel; Complete Time: 23: 08/18 20:53 Order name: CBC with Diff; Complete Time: 23: 08/18 20:53 Order name: Creatinine for Radiology; Complete Time: 23: 08/18 20:53 Order name: Hepatic Function; Complete Time: 23: 08/18 20:53 Order name: Lipase; Complete Time: 23: 08/18 20:53 Order name: Urine Culture 08/18 20:53 Order name: Urine Microscopic Only; Complete Time: 23: 08/18 20:53 Order name: Procalcitonin; Complete Time: 23: 08/18 21:16 Order name: Throat Culture [facility] 08/18 21:58 Order name: CBC Smear Scan; Complete Time: 23: [facility] 08/18 22:09 Order name: Urine Dipstick--Ancillary (enter results); Complete Time: 01:32 ar5 08/18 20:53 Order name: IV Saline Lock; Complete Time: 22: 08/18 20:53 Order name: Labs collected and sent; Complete Time: 22: 08/18 20:53 Order name: Urine Dipstick-Ancillary (obtain specimen); Complete Time: 22: 08/18 20:53 Order name: XRAY Chest (1 view) 08/18 20:54 Order name: CT Abd/Pelvis - Without Contrast 08/18 23:49 Order name: Head Brain Wo Cont EDMS Administered Medications: 08/18 21:39 Not Given (MD changed ordered): Zofran 4 mg IVP once; over 2 minutes 21:39 Drug: Zofran 4 mg Route: PO; 22:13 Follow up: Response: No adverse reaction; Nausea unchanged 22:14 Drug: NS 0.9% 250 ml Route: IV; Rate: 1 bolus; Site: right upper arm; 08/19 01:40 Follow up: Response: No adverse reaction; IV Status: Completed infusion 08/18 22:20 Drug: Zofran 4 mg Route: IVP; Site: right upper arm; 23:20 Follow up: Response: No adverse reaction; Nausea is decreased 22:22 Drug: Demerol - Meperidine 12.5 mg Route: IVP; Site: right upper arm; 23:21 Follow up: Response: No adverse reaction; Pain is decreased; RASS: Alert and Calm (0) Disposition: 08/19/19 01:34 Discharged to Home. Impression: Viral syndrome, Vomiting, unspecified. - Condition is Stable. - Discharge Instructions: Nausea and Vomiting, Adult. - Prescriptions for Zofran ODT 4 mg Oral tablet,disintegrating - place 1 tablet by TRANSLINGUAL route every 8 hours As needed; 20 tablet. - Medication Reconciliation Form, Thank You Letter, Antibiotic Education, Prescription Opioid Use form. - Follow up: Private Physician; When: 1 - 2 days; Reason: Recheck today's complaints, Re-evaluation by your physician. - Problem is new. - Symptoms have improved. Signatures: Dispatcher [employer] EDMS Chris Hammond MD MD rn Baxter, Heather, RN RN hb Habalo, Winsy Corrections: (The following items were deleted from the chart) 08/19 01:55 01:34 08/19/2019 01:34 Discharged to Home. Impression: Viral syndrome; Vomiting, wh unspecified. Condition is Stable. Forms are Medication Reconciliation Form, Thank You Letter, Antibiotic Education, Prescription Opioid Use. Follow up: Private Physician; When: 1 - 2 days; Reason: Recheck today's complaints, Re-evaluation by your physician. Problem is new. Symptoms have improved. rn
[2019-08-19 02:49] VITALS: TEMP 98.9
[2019-08-19 02:55] VITALS: BP 134/75; O2SAT 92
--- NOTE | 2019-08-19 08:59 | RAD REPORT ---
EXAM DESCRIPTION: Diane Single View08/18/2019 9:05 pm CLINICAL HISTORY: Cough COMPARISON: June 2019 FINDINGS: The lungs appear clear of acute infiltrate. The heart is mildly to moderately enlarged. Postsurgical changes involve the chest. IMPRESSION: No acute abnormalities displayed
--- NOTE | 2019-08-20 11:07 | RAD REPORT ---
EXAM DESCRIPTION: CT - Head Brain Wo Cont - 08/19/2019 5:32 am CLINICAL HISTORY: HEADACHE; VOMITING TECHNIQUE: Multiple axial CT images of the brain were performed followed by sagittal and coronal rec onstructed images. The CT study is performed according to ALARA (as low as reasonably achievable) or ALARA/IMAGE GENTLY, with automatic adjustment of mA and/or kV according to patient size. Performed on: 08/18/2019 11:58 PM Comparisons: None. FINDINGS: There is no evidence of mass, acute mass effect or midline shift. There are no acute extra -axial fluid collections. There is no evidence of acute intracranial hemorrhage. The cerebral sulci and ventricles are normal in size and configuration. There are scattered areas of decreased attenuation within the subcortical and periventricular white m atter most likely due to mild chronic microangiopathy. There is no significant mucosal thickening of the paranasal sinuses. The mastoid air cells are clear. The orbital contents are grossly unremarkable. No acute osseous abnormalities are identified. No focal soft tissue abnormalities are identified. There are atherosclerotic calcifications along the cavernous carotid arteries and distal vertebral arteries. IMPRESSION: 1. There is no evidence of acute intracranial pathology. 2. Mild chronic microangiopathy. Electronically signed by: Tyra Barreto DO 08/19/2019 1:10 AM SOUND SYSTEM INSTALLER Due to temporary technical issues with the PACS/Fluency reporting system, reports are being signed by the in house radiologist as a courtesy to ensure prompt reporting. The interpreting radiologist is f ully responsible for the content of the report.
--- NOTE | 2019-08-20 11:42 | RAD REPORT ---
EXAM DESCRIPTION: CT - Abdomen Pelvis Wo Contrast - 08/20/2019 9:57 am CLINICAL HISTORY: 84 years Female fever, vomiting; abdominal pain TECHNIQUE: Contiguous axial images obtained through the abdomen and pelvis without intravenous contr ast administration. Coronal and sagittal reformatted images provided. This CT exam was performed according to our departmental dose-optimization program, which includes on e or more of the following dose reduction techniques: automated exposure control, adjustment of the m A and/or kV according to patient size, and/or use of iterative reconstruction technique. COMPARISON: 08/04/2019 FINDINGS: Stable mild cardiomegaly without pericardial effusion. Prior cholecystectomy without biliary dilatation. The unenhanced liver, pancreas, spleen, adrenal glands, left kidney, and urinary bladder are normal. 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 Prior hysterectomy. There is no bowel inflammation, obstruction, free intraperitoneal air, or ascites. Prior appendectomy . Atherosclerosis with a stable infrarenal abdominal aortic aneurysm measuring up to 3.0 cm. No retrope ritoneal hemorrhage. Stent at the origin of the right renal artery. Chronic degenerative changes in the spine. IMPRESSION: No acute findings in the abdomen or pelvis. 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 Stable 3 cm infrarenal abdominal aortic aneurysm. This should be followed up every three years. Electronically signed by: Mya Wills MD 08/18/2019 10:55 PM [employer] Due to temporary technical issues with the PACS/Fluency reporting system, reports are being signed by the in house radiologist as a courtesy to ensure prompt reporting. The interpreting radiologist is f ully responsible for the content of the report.
== END 2019-08-19 01:55 | disposition home or self-care (01) ==
LOC: ER 20:13
DX: B34.9 Viral infection, unspecified (principal); Z88.5 Allergy status to narcotic agent; Z88.8 Allergy status to other drugs, medicaments and biological substances; Z88.6 Allergy status to analgesic agent; Z91.041 Radiographic dye allergy status
CPT/HCPCS: 96361; 87070; 87088; 85025; 80048; 36415; 80076; 87081; 83690; 84145; 87804 ×2; 70450; 74176; 71045; 96375; 96374; 99284; J2175; J7030; J2405; 81003; 81015; 87086; 96365; 96366

== ENCOUNTER 2019-09-12 04:51 | Observation (INO) | payer OTHER ==
--- OUTSIDE RECORDS SUMMARY | 2019-09-12 04:54 | XMS REPORT ---
[...] End Status Dosage System Date Date Levothyroxine [facility] 54046978000 125 MCG Orally Active 1 tablet Sodium Once a day in the morning on an empty stomach Cranberry [facility] 18603-58749 425 MG Orally Active 1 capsule Concentrate with meals Plavix ND 31497749610 75 MG Orally Active 1 tablet Once a day Eliquis [facility] 10630522104 5 MG Orally Active 1 tablet twice a day Rosuvastatin [facility] 33944466301 40 Active TAKE 1 Calcium TABLET BY MOUTH DAILY Levetiracetam [facility] 46265416704 250 MG Orally Active 1 tablet every 12 hrs Tylenol Arthritis ND 0 Active not Pain defined Vitamin B-12 [facility] 83438-86828 Active not defined Estradiol [facility] 87030935553 0.1 MG/GM January Active as Vaginal Two , directed times a Week 2018 Irbesartan [facility] 06078617439 150 MG Orally Active 1 tablet Once a day Metformin HCl [facility] 42306298893 500 MG Orally Active 1 tablet Twice a day with meals Amlodipine [facility] 62850552039 10 MG Orally Active 1 tablet Besylate Once a day Carvedilol [facility] 70945083948 25 MG Orally Active as directed Omeprazole [facility] 97719897466 40 MG orally Active 1 EACH daily in AM ONCE A DAY Sertraline HCl [facility] 20677621713 25 MG Orally Active 1 tablet Once a day HydrALAZINE HCl [facility] 95953187899 100 MG Orally Active 1 tablet Three times a with food day HydrALAZINE HCl [facility] 19862519166 100 MG Orally December 05, Active as Three times a 2017 directed day Cyanocobalamin [facility] [address]-60 1000 MCG/15ML Active 15 ml Orally Once a day Omeprazole [facility] 43301538033 40 Active TAKE 1 CAPSULE BY MOUTH EVERY DAY Crestor [facility] 23835017694 40 MG Active 1 EACH ONCE A DAY Vitamin E [facility] 37413151084 400 UNIT Orally Active not defined Coreg [facility] 05105387420 25 MG Orally Active not defined Vitamin D3 [facility] 89031207129 1000 UNIT Active 1 capsule Orally Once a day Metformin HCl [facility] 72216723162 500 Active TAKE 1 TABLET BY MOUTH TWICE DAILY Multivitamin [facility] 06490-91576 Active not defined Probiotic [facility] 13165983682 - Orally Active not defined Magnesium [facility] 68583984931 500 MG Orally Active not defined Results No Known Results Summary Purpose [employer]ClinicalWorks Submission
--- OUTSIDE RECORDS SUMMARY | 2019-09-12 04:54 | XMS REPORT ---
[...] Ranitidine NDC 0 Active not defined Levothyroxine [facility] [address]-74 Active not defined Sodium Vitamin B-12 [facility] 76757-68810 Active not defined Metformin HCl [facility] 52492781318 500 MG Orally Active 1 tablet with Twice a day meals Sertraline HCl [facility] 38005975910 25 Orally Once Active 1 tablet a day Bactrim DS [facility] 05731113587 800-160 MG December Active 1 tablet Orally Twice a 2018 Vitamin E [facility] 41655-87032 Active not defined Cranberry [facility] 03324-78974 Active not defined Concentrate Rosuvastatin [facility] 75095096340 40 Active TAKE 1 TABLET Calcium BY MOUTH DAILY Cyanocobalamin [facility] [address]-20 1000 MCG/15ML Active 15 ml Orally Once a day Tylenol Arthritis ND 0 Active not defined Pain Valsartan [facility] 13570218929 160 MG Orally Active 1 tablet Once a day Bactrim DS [facility] 78951627311 800-160 MG January Active 1 tablet Orally Twice a , 2017 Crestor [facility] 79289041248 40 MG Active 1 EACH ONCE A DAY Multivitamin [facility] 16395-83493 Active not defined Probiotic [facility] 52330-77489 Active not defined Plavix [facility] 57821803245 75 MG Orally Active 1 tablet Once a day HydrALAZINE HCl [facility] 26984924573 100 MG Orally December 05, Active as directed Three times a 2017 day Toviaz [facility] 87858871765 8 MG Orally Active 1 tablet Once a day Verapamil HCl [facility] [address]-05 Active not defined Omeprazole [facility] 47156083459 40 Active TAKE 1 CAPSULE BY MOUTH EVERY DAY Fluconazole ND 79178784128 150 MG Orally Sep 15, Active 1 tablet one tab a week 2019 today and may repeat one tab in 1 week if no improvement Estradiol [facility] 83369106825 0.1 MG/GM January Active as directed Vaginal Two 22, times a Week 2018 Metformin HCl [facility] 12664546025 500 Active TAKE 1 TABLET BY MOUTH TWICE DAILY Omeprazole [facility] 81695244892 40 MG orally Active 1 EACH ONCE A daily in AM DAY Eliquis [facility] 43619595884 5 MG Orally Active 1 tablet twice a day Sertraline HCl [facility] 14884626399 25 MG Orally Active 1 tablet Once a day Carvedilol ND 33514226665 25 MG Orally Active as directed Vitamin D3 [facility] 83217509328 1000 UNIT Active 1 capsule Orally Once a day Amlodipine [facility] 70277995847 10 MG Orally Active 1 tablet Besylate Once a day Coreg [facility] 64431095926 25 MG Orally Active not defined HydrALAZINE HCl [facility] 45769864244 100 MG Orally Active 1 tablet with Three times a food day Irbesartan [facility] 38839262873 150 MG Orally Active 1 tablet Once a day Results No Known Results Summary Purpose eClinicalWorks Submission
--- OUTSIDE RECORDS SUMMARY | 2019-09-12 04:54 | XMS REPORT ---
:1935 [facility] [place] [address] Care Team Providers Name Role Phone LARISSA [...] for FINAL REPORT PATIENT ID: BRAIN exam:->stroke [id number] CLINICAL HISTORY: TIA TECHNIQUE: Initially, noncontrast head [...] intact. There is no evidence for a iqugmiut of Lawson proximal branch vessel occlusion. Mild [...] artery stenosis, unchanged. No evidence for a iqugmiut of Lawson proximal branch vessel occlusion. Signed: Alexa Koch MDReport Verified Date/Time: 05/01/2019 10:58:29 Reading Location: [facility] C013V Neuro Reading Room , CAROTID, 2019-05-01 10:58:00 Reason for exam:->eval FINAL REPORT PATIENT ID: ANGIO for TIA [id number] CLINICAL HISTORY: TIA TECHNIQUE: Initially, noncontrast head [...] intact. There is no evidence for a iqugmiut of Lawson proximal branch vessel occlusion. Mild [...] artery stenosis, unchanged. No evidence for a iqugmiut of Lawson proximal branch vessel occlusion. Signed: Alexa Koch MDReport Verified Date/Time: 05/01/2019 10:58:29 Reading Location: [facility] C013V Neuro Reading Room C METABOLIC PANEL 2019-05-01 06:04:00 Test Item Value Reference Range Comments SODIUM (BEAKER) (test 133 meq/L 136-145 hedg=069) POTASSIUM (BEAKER) (test 4.3 meq/L 3.5-5.1 xfto=309) CHLORIDE (BEAKER) (test 104 meq/L 98-107 kgtm=222) CO2 (BEAKER) (test fret=139) 24 meq/L 22-29 BLOOD UREA NITROGEN (BEAKER) 8 mg/dL 7-21 (test rrgj=573) CREATININE (BEAKER) (test 0.63 mg/dL 0.57-1.25 mvbv=862) GLUCOSE RANDOM (BEAKER) 105 mg/dL 70-105 (test ewtm=113) CALCIUM (BEAKER) (test 8.8 mg/dL 8.4-10.2 xlmk=836) EGFR (BEAKER) (test 90 mL/min/1.73 sq m ESTIMATED GFR IS NOT ukqd=5323) ACCURATE CREATININE CLEARANCE IN PREDICTING GLOMERULAR FILTRATION RATE. ESTIMATED GFR IS NOT APPLICABLE FOR DIALYSIS PATIENTS. CBC (HEMOGRAM ONLY)2019-05-01 04:59:00 Test Item Value Reference Range Comments WHITE BLOOD CELL COUNT (BEAKER) (test uowz=008) 7.4 K/ L 3.5-10.5 RED BLOOD CELL COUNT (BEAKER) (test jxdo=958) 3.56 M/ L 3.93-5.22 HEMOGLOBIN (BEAKER) (test mhjm=418) 11.3 GM/DL 11.2-15.7 HEMATOCRIT (BEAKER) (test vguk=090) 33.9 % 34.1-44.9 MEAN CORPUSCULAR VOLUME (BEAKER) (test vdtn=609) 95.2 fL 79.4-94.8 MEAN CORPUSCULAR HEMOGLOBIN (BEAKER) (test 31.7 pg 25.6-32.2 muhu=439) MEAN CORPUSCULAR HEMOGLOBIN CONC (BEAKER) (test 33.3 GM/DL 32.2-35.5 xkdl=693) RED CELL DISTRIBUTION WIDTH (BEAKER) (test 12.0 % 11.7-14.4 uymp=796) PLATELET COUNT (BEAKER) (test zpqb=280) 170 K/CU MM 150-450 MEAN PLATELET VOLUME (BEAKER) (test jayw=728) 9.6 fL 9.4-12.3 NUCLEATED RED BLOOD CELLS (BEAKER) (test 0 /100 WBC 0-0 ggcv=731) TROPONIN [id number] 20:18:00 Test Item Value Reference Range Comments TROPONIN I (BEAKER) (test pobz=204) < ng/mL 0.00-0.03 Troponin I (TnI) levels [...] neurological disease, and persistent tachyarrhythmia.MR, BRAIN, WITHOUT [id number] 19 :07:00Reason for exam:->Ischemic Stroke EvaluationFINAL REPORT [...] Verified Date/ Time: 04/30/2019 19:07:03 Reading Location: [address] Neuro Reading Room HEMOGLOBIN [id number] 10:33:00 Test Item Value Reference Range Comments HEMOGLOBIN A1C (BEAKER) (test vzlx=087) 6.6 % 4.3-6.1 FastingVITAMIN [id number] 09:00:00 Test Item Value Reference Range Comments VITAMIN B12 (BEAKER) (test radk=605) 654 pg/mL 213-816 Add on please to morning labsAdd on to morning labsTSH/FREE T4 IF [id number] 09:00:00 Test Item Value Reference Range Comments THYROID STIMULATING HORMONE (BEAKER) (test 0.69 uIU/mL 0.35-4.94 ihkd=110) Add on please to morning labsAdd on to morning labsBASIC METABOLIC [id number] 07:30:00 Test Item Value Reference Range Comments SODIUM (BEAKER) (test 131 meq/L 136-145 ewdi=096) POTASSIUM (BEAKER) (test 4.2 meq/L 3.5-5.1 Specimen slightly zwec=404) hemolyzed CHLORIDE (BEAKER) (test 99 meq/L 98-107 qocc=313) CO2 (BEAKER) (test 23 meq/L 22-29 sfkd=150) BLOOD UREA NITROGEN 10 mg/dL 7-21 (BEAKER) (test pknf=512) CREATININE (BEAKER) (test 0.67 mg/dL 0.57-1.25 Specimen slightly asra=426) hemolyzed GLUCOSE RANDOM (BEAKER) 115 mg/dL 70-105 (test pxse=117) CALCIUM (BEAKER) (test 8.8 mg/dL 8.4-10.2 oxab=393) EGFR (BEAKER) (test 84 mL/min/1.73 sq m ESTIMATED GFR IS NOT xocv=4226) ACCURATE CREATININE CLEARANCE IN PREDICTING GLOMERULAR FILTRATION RATE. ESTIMATED GFR IS NOT APPLICABLE FOR DIALYSIS PATIENTS. FastingLIPID [id number] 07:30:00 Test Item Value Reference Range Comments TRIGLYCERIDES (BEAKER) (test 57 mg/dL Specimen slightly hemolyzed yiph=673) CHOLESTEROL (BEAKER) (test 83 mg/dL Specimen slightly hemolyzed bnyt=478) HDL CHOLESTEROL (BEAKER) (test 37 mg/dL rhau=825) LDL CHOLESTEROL CALCULATED 35 mg/dL (BEAKER) (test gorn=203) Triglyceride Reference Range: Low Risk <150 Borderline 150- 199 High Risk 200-499 Very High Risk >=500Cholesterol Reference Range: Low Risk <200 Borderline 200-239 High Risk > 240HDL Cholesterol Reference Range: Low Risk >=60 High Risk <40LDL Cholesterol Reference Range: Optimal <100 Near Optimal 100-129 Borderline 130-159 High 160-189 Very High >=190 FastingTROPONIN [id number] 07:28:00 Test Item Value Reference Range Comments TROPONIN I (BEAKER) (test knhl=350) < ng/mL 0.00-0.03 Troponin I (TnI) levels [...] and persistent tachyarrhythmia.FastingCBC W/PLT COUNT & AUTO [id number] 05:43:00 Test Item Value Reference Range Comments WHITE BLOOD CELL COUNT (BEAKER) (test lgyv=633) 7.9 K/ L 3.5-10.5 RED BLOOD CELL COUNT (BEAKER) (test aazp=326) 3.40 M/ L 3.93-5.22 HEMOGLOBIN (BEAKER) (test pztb=024) 10.6 GM/DL 11.2-15.7 HEMATOCRIT (BEAKER) (test abep=090) 32.1 % 34.1-44.9 MEAN CORPUSCULAR VOLUME (BEAKER) (test sbxg=755) 94.4 fL 79.4-94.8 MEAN CORPUSCULAR HEMOGLOBIN (BEAKER) (test 31.2 pg 25.6-32.2 zpbr=477) MEAN CORPUSCULAR HEMOGLOBIN CONC (BEAKER) (test 33.0 GM/DL 32.2-35.5 yauo=054) RED CELL DISTRIBUTION WIDTH (BEAKER) (test 12.0 % 11.7-14.4 tdlu=628) PLATELET COUNT (BEAKER) (test bfdn=927) 168 K/CU MM 150-450 MEAN PLATELET VOLUME (BEAKER) (test rqpe=898) 9.6 fL 9.4-12.3 NUCLEATED RED BLOOD CELLS (BEAKER) (test 0 /100 WBC 0-0 zgng=287) NEUTROPHILS RELATIVE PERCENT (BEAKER) (test 57 % rqwx=027) LYMPHOCYTES RELATIVE PERCENT (BEAKER) (test 28 % wbsg=966) MONOCYTES RELATIVE PERCENT (BEAKER) (test 12 % ybjw=630) EOSINOPHILS RELATIVE PERCENT (BEAKER) (test 2 % kmod=141) BASOPHILS RELATIVE PERCENT (BEAKER) (test 0 % tydo=636) NEUTROPHILS ABSOLUTE COUNT (BEAKER) (test 4.50 K/ L 1.56-6.13 pjfd=081) LYMPHOCYTES ABSOLUTE COUNT (BEAKER) (test 2.23 K/ L 1.18-3.74 pghy=455) MONOCYTES ABSOLUTE COUNT (BEAKER) (test 0.98 K/ L 0.24-0.36 odrk=232) EOSINOPHILS ABSOLUTE COUNT (BEAKER) (test 0.15 K/ L 0.04-0.36 rzlt=750) BASOPHILS ABSOLUTE COUNT (BEAKER) (test 0.03 K/ L 0.01-0.08 nccp=079) IMMATURE GRANULOCYTES-RELATIVE PERCENT (BEAKER) 0 % 0-1 (test vuzc=3738) NV, ANGIOGRAM, [id number] 11:37:00Reason for exam:->TIAsFINAL REPORT November 22, 2017 [...] guidance and strict sterile technique a 4 Austrian femoral sheath was inserted into the right common femoral artery. Through the sheath a 4 Austrian vertebral catheter was then advanced over the [...] demonstrates a critical supraclinoid ICA stenosis of wsrmxgqteemfj46%. There is delayed antegrade flow. The venous [...] [place] Y018 Neuro Angio Reading Room POCT-GLUCOSE [id number] 07:43:00 Test Item Value Reference Range Comments POC-GLUCOSE METER (BEAKER) 149 mg/dL 70-110 TESTED AT [facility] [address] [facility] (test czbz=3345) [facility] [address] [id number] 06:46:00 Test Item Value Reference Range Comments MAGNESIUM (BEAKER) (test pwpo=945) 2.0 mg/dL 1.6-2.6 BASIC METABOLIC [id number] 06:46:00 Test Item Value Reference Range Comments SODIUM (BEAKER) (test 133 meq/L 136-145 wplr=546) POTASSIUM (BEAKER) (test 4.4 meq/L 3.5-5.1 ozwp=893) CHLORIDE (BEAKER) (test 99 meq/L 98-107 xdgd=038) CO2 (BEAKER) (test 25 meq/L 22-29 asio=702) BLOOD UREA NITROGEN 11 mg/dL 7-21 (BEAKER) (test fqwm=587) CREATININE (BEAKER) (test 0.65 mg/dL 0.57-1.25 elsx=221) GLUCOSE RANDOM (BEAKER) 162 mg/dL 70-105 (test jazb=339) CALCIUM (BEAKER) (test 9.5 mg/dL 8.4-10.2 albn=907) EGFR (BEAKER) (test 87 mL/min/1.73 sq m ESTIMATED GFR IS NOT wytc=4358) ACCURATE CREATININE CLEARANCE IN PREDICTING GLOMERULAR FILTRATION RATE. ESTIMATED GFR IS NOT APPLICABLE FOR DIALYSIS PATIENTS. [id number] 06:33:00 Test Item Value Reference Range Comments PROTIME (BEAKER) (test dqxk=245) 15.5 seconds 11.7-14.7 INR (BEAKER) (test qxzy=492) 1.2 <=5.9 PARTIAL THROMBOPLASTIN TIME (BEAKER) (test 35.9 seconds 22.5-36.0 stcp=890) RECOMMENDED COUMADIN/WARFARIN INR THERAPY RANGESSTANDARD DOSE: 2.0 - 3.0 Includes: PROPHYLAXIS forvenous thrombosis, systemic embolization; TREATMENT for venous thrombosis and/or pulmonary embolus.HIGH RISK: Target INR is 2.5-3.5 for patients with mechanical heart valves.POCT-GLUCOSE [id number] 06:22:00 Test Item Value Reference Range Comments POC-GLUCOSE METER (BEAKER) 161 mg/dL 70-110 TESTED AT [address] (test zngq=6193) [place] [address] POCT-GLUCOSE [id number] 02:08:00 Test Item Value Reference Range Comments POC-GLUCOSE METER (BEAKER) 182 mg/dL 70-110 TESTED AT [address] (test qevp=2155) [place] [address] POCT-GLUCOSE [id number] 19:30:00 Test Item Value Reference Range Comments POC-GLUCOSE METER (BEAKER) 146 mg/dL 70-110 TESTED AT [address] (test njff=7973) [place] [address] CT, CAROT[place], [id number] 14:54:00Please include aortaFINAL REPORT CT angiogram of [...] the left ICA terminus. There is also lfwg-fl-rcclomiz multifocal narrowing of the right carotid siphon. [...] MDReport Verified Date/Time: 11/21/2017 14:54:26 Reading Location: [facility] Radiology Reading Room H MEJIA [id number] 14:54:00FINAL REPORT CT angiogram of the upper [...] the left ICA terminus. There is also yfxk-kw-ymapslyp multifocal narrowing of the right carotid siphon. [...] Mcdaniels Verified Date/Time: 11/21/2017 14:54:26 Reading Location: [facility] Radiology Reading Room POCT-GLUCOSE [id number] 11:50:00 Test Item Value Reference Range Comments POC-GLUCOSE METER (BEAKER) 153 mg/dL 70-110 TESTED AT [place] [id number] [facility] (test aqvq=9608) [facility] [address] POCT-GLUCOSE [id number] 08:08:00 Test Item Value Reference Range Comments POC-GLUCOSE METER (BEAKER) 125 mg/dL 70-110 TESTED AT [address] (test nlyt=7396) [place] [address] [id number] 06:43:00 Test Item Value Reference Range Comments MAGNESIUM (BEAKER) (test cmnq=954) 2.1 mg/dL 1.6-2.6 BASIC METABOLIC [id number] 06:43:00 Test Item Value Reference Range Comments SODIUM (BEAKER) (test 136 meq/L 136-145 pmvo=587) POTASSIUM (BEAKER) (test 4.0 meq/L 3.5-5.1 rfis=854) CHLORIDE (BEAKER) (test 101 meq/L 98-107 oyek=021) CO2 (BEAKER) (test 27 meq/L 22-29 jdja=440) BLOOD UREA NITROGEN 12 mg/dL 7-21 (BEAKER) (test bfog=119) CREATININE (BEAKER) (test 0.68 mg/dL 0.57-1.25 xgsn=493) GLUCOSE RANDOM (BEAKER) 122 mg/dL 70-105 (test upve=736) CALCIUM (BEAKER) (test 9.5 mg/dL 8.4-10.2 ayst=040) EGFR (BEAKER) (test 83 mL/min/1.73 sq m ESTIMATED GFR IS NOT ydcx=8933) ACCURATE CREATININE CLEARANCE IN PREDICTING GLOMERULAR FILTRATION RATE. ESTIMATED GFR IS NOT APPLICABLE FOR DIALYSIS PATIENTS. TSH/FREE T4 IF [id number] 22:12:00 Test Item Value Reference Range Comments THYROID STIMULATING HORMONE (BEAKER) (test 4.66 uIU/mL 0.35-4.94 mrsg=287) [id number] 21:54:00 Test Item Value Reference Range Comments MAGNESIUM (BEAKER) (test wkfy=460) 2.0 mg/dL 1.6-2.6 BASIC METABOLIC [id number] 21:54:00 Test Item Value Reference Range Comments SODIUM (BEAKER) (test 134 meq/L 136-145 vdbm=670) POTASSIUM (BEAKER) (test 4.1 meq/L 3.5-5.1 kimh=084) CHLORIDE (BEAKER) (test 101 meq/L 98-107 dwhm=321) CO2 (BEAKER) (test 24 meq/L 22-29 uatr=400) BLOOD UREA NITROGEN 11 mg/dL 7-21 (BEAKER) (test rwnc=340) CREATININE (BEAKER) (test 0.65 mg/dL 0.57-1.25 ocft=480) GLUCOSE RANDOM (BEAKER) 126 mg/dL 70-105 (test pzik=476) CALCIUM (BEAKER) (test 9.5 mg/dL 8.4-10.2 ctqw=050) EGFR (BEAKER) (test 87 mL/min/1.73 sq m ESTIMATED GFR IS NOT chtk=0042) ACCURATE CREATININE CLEARANCE IN PREDICTING GLOMERULAR FILTRATION RATE. ESTIMATED GFR IS NOT APPLICABLE FOR DIALYSIS PATIENTS. LIPID [id number] 21:54:00 Test Item Value Reference Range Comments TRIGLYCERIDES (BEAKER) (test wwla=441) 70 mg/dL CHOLESTEROL (BEAKER) (test abmd=421) 101 mg/dL HDL CHOLESTEROL (BEAKER) (test rsbm=729) 39 mg/dL LDL CHOLESTEROL CALCULATED (BEAKER) (test 48 mg/dL rhvs=253) Triglyceride Reference Range: Low Risk <150 Borderline 150- 199 High Risk 200-499 Very High Risk >=500Cholesterol Reference Range: Low Risk <200 Borderline 200-239 High Risk > 240HDL Cholesterol Reference Range: Low Risk >=60 High Risk <40LDL Cholesterol Reference Range: Optimal <100 Near Optimal 100-129 Borderline 130-159 High 160-189 Very High >=190POCT-GLUCOSE [id number] 21:35:00 Test Item Value Reference Range Comments POC-GLUCOSE METER (BEAKER) 128 mg/dL 70-110 TESTED AT [address] (test wavt=3451) [place] [address] POCT-GLUCOSE [id number] 17:55:00 Test Item Value Reference Range Comments POC-GLUCOSE METER (BEAKER) 113 mg/dL 70-110 TESTED AT [address] (test dbbh=0319) [place] [address] POCT-GLUCOSE [id number] 12:32:00 Test Item Value Reference Range Comments POC-GLUCOSE METER (BEAKER) 120 mg/dL 70-110 TESTED AT [address] (test qrpl=3723) [place] [address] MR, MRA, BRAIN, WITHOUT [id number] 11:33:00Reason for exam:-> Ischemic Stroke EvaluationFINAL REPORT MRA Head and Neck CLINICAL HISTORY: CVA TECHNIQUE: MRA of the head utilizing 3-D tymq-uw-xafkuf technique, with 3-D reconstructions. MRA of the [...] There is no other evidence for a iqugmiut of Lawson proximal branch vessel occlusion. There [...] Reading Location : [facility] C013 Neuro Reading Room MR, MRA, NECK, WITHOUT IV [id number] 11:33: 00Reason for exam:->Ischemic Stroke EvaluationFINAL REPORT MRA Head and Neck CLINICAL HISTORY: CVA TECHNIQUE: MRA of the head utilizing 3-D uqml-ms-zeghaw technique, with 3-D reconstructions. MRA of the neck utilizing 2-D and 3-D vkal-xe-zgwmlb technique, with 3-D reconstructions. COMPARISON: None FINDINGS: [...] There is no other evidence for a iqugmiut of Lawson proximal branch vessel occlusion. There [...] Verified Date/Time: 11/20/2017 11 :33:14 Reading Location: [address] Neuro Reading Room MR, BRAIN, WITHOUT [id number] 11:05:00Reason for exam:->Ischemic Stroke EvaluationFINAL REPORT MRI [...] Koch Verified Date/Time: 11/20/2017 11:05:05 Reading Location: [address] Neuro Reading Room HEMOGLOBIN [id number] 09:08:00 Test Item Value Reference Range Comments HEMOGLOBIN A1C (BEAKER) (test wsyo=009) 6.1 % 4.3-6.1 POCT-GLUCOSE [id number] 08:27:00 Test Item Value Reference Range Comments POC-GLUCOSE METER (BEAKER) 125 mg/dL 70-110 TESTED AT [address] (test wmwf=0145) [facility] [address] TSH/FREE T4 IF [id number] 07:47:00 Test Item Value Reference Range Comments THYROID STIMULATING HORMONE (BEAKER) (test 5.97 uIU/mL 0.35-4.94 udfy=386) VITAMIN [id number] 07:44:00 Test Item Value Reference Range Comments VITAMIN B12 (BEAKER) (test oroy=713) 857 pg/mL 213-816 CBC W/PLT COUNT & AUTO [id number] 06:47:00 Test Item Value Reference Range Comments WHITE BLOOD CELL COUNT (BEAKER) (test vheh=609) 8.3 K/ L 3.5-10.5 RED BLOOD CELL COUNT (BEAKER) (test puuk=745) 4.11 M/ L 3.93-5.22 HEMOGLOBIN (BEAKER) (test rdxn=599) 13.4 GM/DL 11.2-15.7 HEMATOCRIT (BEAKER) (test zgqq=437) 39.7 % 34.1-44.9 MEAN CORPUSCULAR VOLUME (BEAKER) (test mvyg=398) 96.6 fL 79.4-94.8 MEAN CORPUSCULAR HEMOGLOBIN (BEAKER) (test 32.6 pg 25.6-32.2 sumq=624) MEAN CORPUSCULAR HEMOGLOBIN CONC (BEAKER) (test 33.8 GM/DL 32.2-35.5 rgsi=127) RED CELL DISTRIBUTION WIDTH (BEAKER) (test 12.1 % 11.7-14.4 hwxg=268) PLATELET COUNT (BEAKER) (test xtyp=804) 209 K/CU MM 150-450 MEAN PLATELET VOLUME (BEAKER) (test zzwn=144) 9.7 fL 9.4-12.3 NUCLEATED RED BLOOD CELLS (BEAKER) (test 0 /100 WBC 0-0 pmzt=110) NEUTROPHILS RELATIVE PERCENT (BEAKER) (test 49 % ezcb=854) LYMPHOCYTES RELATIVE PERCENT (BEAKER) (test 35 % lkso=819) MONOCYTES RELATIVE PERCENT (BEAKER) (test 12 % mzlb=129) EOSINOPHILS RELATIVE PERCENT (BEAKER) (test 4 % ywnm=496) BASOPHILS RELATIVE PERCENT (BEAKER) (test 1 % hrxj=515) NEUTROPHILS ABSOLUTE COUNT (BEAKER) (test 4.02 K/ L 1.56-6.13 hpwm=758) LYMPHOCYTES ABSOLUTE COUNT (BEAKER) (test 2.89 K/ L 1.18-3.74 wmqw=852) MONOCYTES ABSOLUTE COUNT (BEAKER) (test 0.95 K/ L 0.24-0.36 szbn=184) EOSINOPHILS ABSOLUTE COUNT (BEAKER) (test 0.35 K/ L 0.04-0.36 vmra=029) BASOPHILS ABSOLUTE COUNT (BEAKER) (test 0.04 K/ L 0.01-0.08 rafe=823) IMMATURE GRANULOCYTES-RELATIVE PERCENT (BEAKER) 0 % 0-1 (test tvzw=9622) POCT-GLUCOSE [id number] 22:09:00 Test Item Value Reference Range Comments POC-GLUCOSE METER (BEAKER) 130 mg/dL 70-110 TESTED AT [facility] [address] [facility] (test spav=0726) [facility] [address]
--- OUTSIDE RECORDS SUMMARY | 2019-09-12 04:54 | XMS REPORT ---
[...] End Status Dosage System Date Date Toviaz [facility] 79390274893 8 MG Orally Active 1 tablet Once a day Valsartan [facility] 18635403395 160 MG Orally Active 1 tablet Once a day Tylenol Arthritis NDC 0 Active not defined Pain Metformin HCl [facility] 15476642462 500 MG Orally Active 1 tablet with Twice a day meals Estradiol [facility] 30768523086 0.1 MG/GM January Active as directed Vaginal Two 22, times a Week 2018 Probiotic [facility] 90730-41916 Active not defined Cranberry [facility] 67901-40591 Active not defined Concentrate Bactrim DS ND 92758574793 800-160 MG December Active 1 tablet Orally Twice a 2018 Cyanocobalamin [facility] [address]-78 1000 MCG/15ML Active 15 ml Orally Once a day HydrALAZINE HCl [facility] 81975698260 100 MG Orally December 05, Active as directed Three times a 2017 day Eliquis [facility] 33278218995 5 MG Orally Active 1 tablet twice a day Omeprazole [facility] 58779441652 40 Active TAKE 1 CAPSULE BY MOUTH EVERY DAY Levothyroxine [facility] [address]-41 Active not defined Sodium Verapamil HCl [facility] [address]-09 Active not defined Irbesartan [facility] 95297240331 150 MG Orally Active 1 tablet Once a day Sertraline HCl [facility] 67540681214 25 Orally Once Active 1 tablet a day Bactrim DS [facility] 02948326737 800-160 MG January Active 1 tablet Orally Twice a 2017 Multivitamin [facility] 18502-91490 Active not defined Sertraline HCl [facility] 81706469287 25 MG Orally Active 1 tablet Once a day Metformin HCl [facility] 93403647255 500 Active TAKE 1 TABLET BY MOUTH TWICE DAILY Vitamin B-12 [facility] 27604-38667 Active not defined Levetiracetam [facility] 25828432421 250 MG Orally Active 1 tablet every 12 hrs Amlodipine [facility] 25647123092 10 MG Orally Active 1 tablet Besylate Once a day Magnesium ND 0 Active not defined HydrALAZINE HCl [facility] 83421366897 100 MG Orally Active 1 tablet with Three times a food day Carvedilol [facility] 30754149372 25 MG Orally Active as directed Vitamin E [facility] 56917-29055 Active not defined Coreg [facility] 38517873775 25 MG Orally Active not defined Vitamin D3 [facility] 49151614818 1000 UNIT Active 1 capsule Orally Once a day Ranitidine [facility] 96727591492 Active not defined Rosuvastatin [facility] 80384566493 40 Active TAKE 1 TABLET Calcium BY MOUTH DAILY Plavix [facility] 37615072477 75 MG Orally Active 1 tablet Once a day Omeprazole [facility] 62069351068 40 MG orally Active 1 EACH ONCE A daily in AM DAY Fluconazole [facility] 06943356320 150 MG Orally Sep 15, Active 1 tablet one tab a week 2019 today and may repeat one tab in 1 week if no improvement Crestor [facility] 29440026798 40 MG Active 1 EACH ONCE A DAY Results No Known Results Summary Purpose eClinicalWorks Submission
--- OUTSIDE RECORDS SUMMARY | 2019-09-12 04:55 | XMS REPORT ---
[...] Active Assessment Recurrent UTI N39.0 Active Assessment History of recurrent UTI (urinary Z87.440 Active tract infection) Assessment Mixed stress and urge urinary N39.46 Active incontinence Assessment Urinary tract infection without N39.0 Active hematuria, site unspecified Problem Chronic a-fib I48.2 Active Problem Overactive bladder N32.81 Active Problem Obstructive sleep apnea G47.33 Active Problem GERD (gastroesophageal reflux K21.9 Active disease) Problem Atherosclerosis I70.90 Active Problem Chronic fatigue R53.82 Active Problem Obesity E66.9 Active Problem Elevated TSH R79.89 Active Problem Stress at home F43.9 Active Problem Mild depression F32.0 Active Problem Seasonal allergic rhinitis, J30.2 Active unspecified trigger Problem Seizure disorder G40.909 Active Problem Hyperlipidemia E78.5 Active Problem Allergic rhinitis J30.9 Active Problem Osteoarthritis of multiple joints, M15.9 Active unspecified osteoarthritis type Problem Hypertension I10 Active Problem Other chronic pain G89.29 Active Problem Memory change R41.3 Active Problem Acquired hypothyroidism E03.9 Active Problem Mixed stress and urge urinary N39.46 Active incontinence Problem Recurrent urinary tract infection N39.0 Active Problem 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 Active Problem Abnormal mammogram R92.8 Active Problem Type 2 diabetes E11.9 Active Problem History of TIA (transient ischemic Z86.73 Active attack) Problem Hospital discharge follow-up Z09 Active Problem Stenosis of left carotid artery I65.22 Active Problem Other speech disturbance R47.89 Active Medications Medication Code Code Instructions Start End Status Dosage System Date Date Amlodipine [facility] 46775477082 10 MG Orally Active 1 tablet Besylate Once a day Levetiracetam [facility] 95840812097 250 MG Orally Active 1 tablet every 12 hrs Magnesium [facility] 99421345700 500 MG Orally Active not defined Sertraline HCl [facility] 65636689556 25 MG Orally Active 1 tablet Once a day Eliquis [facility] 51518160345 5 MG Orally Active 1 tablet twice a day Cranberry [facility] 98438-80363 425 MG Orally Active 1 capsule Concentrate with meals Levothyroxine [facility] 52640419200 125 MCG Orally Active 1 tablet Sodium Once a day in the morning on an empty stomach Metformin HCl [facility] 54032032976 500 MG Orally Active 1 tablet Twice a day with meals Metformin HCl [facility] 83434692699 500 Active TAKE 1 TABLET BY MOUTH TWICE DAILY Tylenol Arthritis [facility] 0 Active not Pain defined Plavix [facility] 77997335703 75 MG Orally Active 1 tablet Once a day Crestor [facility] 15520536632 40 MG Active 1 EACH ONCE A DAY Vitamin B-12 [facility] 73965-89229 Active not defined Omeprazole [facility] 94067163789 40 Active TAKE 1 CAPSULE BY MOUTH EVERY DAY Coreg [facility] 31919158713 25 MG Orally Active not defined Irbesartan [facility] 68070426690 150 MG Orally Active 1 tablet Once a day Multivitamin [facility] 76520-18905 Active not defined Estradiol [facility] 19537223149 0.1 MG/GM January Active as Vaginal Two 22, directed times a Week 2018 Rosuvastatin [facility] 37596650155 40 Active TAKE 1 Calcium TABLET BY MOUTH DAILY HydrALAZINE HCl [facility] 40307675926 100 MG Orally Active 1 tablet Three times a with food day Probiotic [facility] 13512522967 - Orally Active not defined Methenamine [facility] 12574862265 1 GM Orally Active 1 tablet Hippurate Twice a day Cyanocobalamin [facility] [address]-49 1000 MCG/15ML Active 15 ml Orally Once a day Vitamin E [facility] 80140332982 400 UNIT Orally Active not defined Vitamin D3 [facility] 65749745661 1000 UNIT Active 1 capsule Orally Once a day Omeprazole [facility] 91582815271 40 MG orally Active 1 EACH daily in AM ONCE A DAY Carvedilol [facility] 70216208725 25 MG Orally Active as directed HydrALAZINE HCl [facility] 63779727916 100 MG Orally December 05, Active as Three times a 2018 directed day Results No Known Results Summary Purpose eClinicalWorks Submission
--- OUTSIDE RECORDS SUMMARY | 2019-09-12 04:55 | XMS REPORT ---
[...] Status Dosage System Date Date Vitamin B-12 [facility] 372[address]10 Active not defined Levothyroxine [facility] 48625910184 125 MCG Orally Active 1 tablet Sodium Once a day in the morning on an empty stomach Crestor [facility] 96202313185 40 MG Active 1 EACH ONCE A DAY Estradiol [facility] 37665992905 0.1 MG/GM January Active as Vaginal Two 22, directed times a Week 2018 Irbesartan [facility] 07124417135 150 MG Orally Active 1 tablet Once a day Cyanocobalamin [facility] [address]-99 1000 MCG/15ML Active 15 ml Orally Once a day Methenamine [facility] 61868021067 1 GM Orally Aug 02September Active 1 tablet Hippurate Twice a day 2019 Probiotic [facility] 62152748383 - Orally Active not defined Eliquis [facility] 12445889438 5 MG Orally Active 1 tablet twice a day Vitamin E [facility] 08915939969 400 UNIT Active not Orally defined HydrALAZINE HCl [facility] 34371582004 100 MG Orally Active 1 tablet Three times a with food day Coreg [facility] 70194012108 25 MG Orally Active not defined Tylenol Arthritis ND 0 Active not Pain defined Levetiracetam [facility] 51737692182 250 MG Orally Active 1 tablet every 12 hrs Cranberry [facility] 07893-45338 425 MG Orally Active 1 capsule Concentrate with meals Multivitamin [facility] 05370-99361 Active not defined HydrALAZINE HCl [facility] 64452905962 100 MG Orally December 05, Active as Three times a 2017 directed day Metformin HCl [facility] 99296942437 500 MG Orally Active 1 tablet Twice a day with meals Plavix [facility] 49571027558 75 MG Orally Active 1 tablet Once a day Omeprazole [facility] 92875378416 40 Active TAKE 1 CAPSULE BY MOUTH EVERY DAY Omeprazole [facility] 53759253366 40 MG orally Active 1 EACH daily in AM ONCE A DAY Sertraline HCl [facility] 97035434526 25 MG Orally Active 1 tablet Once a day Carvedilol ND 37367996057 25 MG Orally Active as directed Magnesium [facility] 93367682478 500 MG Orally Active not defined Vitamin D3 [facility] 71202488353 1000 UNIT Active 1 capsule Orally Once a day Bactrim [facility] 18816674321 400-80 MG Aug 02, Aug 07, Active 1 tablet Orally BID 2019 2019 Metformin HCl [facility] 69281302161 500 Active TAKE 1 TABLET BY MOUTH TWICE DAILY Rosuvastatin [facility] 92684427939 40 Active TAKE 1 Calcium TABLET BY MOUTH DAILY Amlodipine [facility] 43538863823 10 MG Orally Active 1 tablet Besylate Once a day Results No Known Results Summary Purpose eClinicalWorks Submission
--- OUTSIDE RECORDS SUMMARY | 2019-09-12 04:55 | XMS REPORT ---
[...] Condition Code Onset Dates Condition Status Assessment Stress at home F43.9 Active Assessment Positive colorectal cancer R19.5 Active screening using Cologuard test Assessment Acquired hypothyroidism E03.9 Active Assessment Weakness R53.1 Active Assessment Chronic fatigue R53.82 Active Problem Chronic a-fib I48.2 Active Problem Overactive [...] and urge urinary N39.46 Active incontinence Assessment Osteoarthritis of multiple joints, M15.9 Active unspecified osteoarthritis type Problem Recurrent urinary tract infection N39.0 Active Assessment Seasonal allergic rhinitis, J30.2 Active unspecified trigger Problem 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 Active Problem Abnormal mammogram R92.8 Active Problem Type 2 diabetes E11.9 Active Problem History of TIA (transient ischemic Z86.73 Active attack) Problem Hospital discharge follow-up Z09 Active Problem Stenosis of left carotid artery I65.22 Active Problem Other speech disturbance R47.89 Active Medications Medication Code Code Instructions Start End Status Dosage System Date Date Eliquis [facility] 32656857079 5 MG Orally Active 1 tablet twice a day Omeprazole [facility] 64899331413 40 MG orally Active 1 EACH daily in AM ONCE A DAY Levetiracetam [facility] 93750766786 250 MG Orally Active 1 tablet every 12 hrs Tylenol Arthritis [facility] 0 Active not Pain defined Multivitamin [facility] 602[address] Active not defined Rosuvastatin [facility] 31158470697 40 Active TAKE 1 Calcium TABLET BY MOUTH DAILY Sertraline HCl [facility] 57251731162 25 MG Orally Active 1 tablet Once a day Crestor [facility] 02157262199 40 MG Active 1 EACH ONCE A DAY Methenamine [facility] 42759855051 1 GM Orally Aug 02September Active 1 tablet Hippurate Twice a day 2019 Levothyroxine [facility] 00303355738 125 MCG Orally Active 1 tablet Sodium Once a day in the morning on an empty stomach Cranberry [facility] 95[address]253 425 MG Orally Active 1 capsule Concentrate with meals Probiotic [facility] 84073695772 - Orally Active not defined HydrALAZINE HCl [facility] 85606270527 100 MG Orally Active 1 tablet Three times a with food day Coreg [facility] 21061250604 25 MG Orally Active not defined HydrALAZINE HCl [facility] 33774659334 100 MG Orally December 05, Active as Three times a 2017 directed day Vitamin D3 [facility] 84504389112 1000 UNIT Active 1 capsule Orally Once a day Metformin HCl [facility] 99514342016 500 MG Orally Active 1 tablet Twice a day with meals Metformin HCl [facility] 65880224973 500 Active TAKE 1 TABLET BY MOUTH TWICE DAILY Cyanocobalamin [facility] [address]-14 1000 MCG/15ML Active 15 ml Orally Once a day Carvedilol [facility] 90260737905 25 MG Orally Active as directed Amlodipine [facility] 18524578804 10 MG Orally Active 1 tablet Besylate Once a day Omeprazole [facility] 83095585683 40 Active TAKE 1 CAPSULE BY MOUTH EVERY DAY Vitamin B-12 [facility] 834[address] Active not defined Irbesartan [facility] 82235128236 150 MG Orally Active 1 tablet Once a day Vitamin E [facility] 47302443815 400 UNIT Active not Orally defined Estradiol [facility] 07411843944 0.1 MG/GM January Active as Vaginal Two 22, directed times a Week 2018 Plavix [facility] 25203586964 75 MG Orally Active 1 tablet Once a day Magnesium [facility] 81549351090 500 MG Orally Active not defined Results No Known Results Summary Purpose eClinicalWorks Submission
[2019-09-12] MEDS ORDERED: CEFTRIAXONE/SWI 1gm 1 GM/10 ML SYR ONE (06:05)
[2019-09-12] MEDS ORDERED: NA CHLORIDE 0.9% 2,000 ML ONE (06:05)
[2019-09-12 06:49] LABS: Absolute Lymphocytes (CBC) 2.1 K/uL (0.7-4.9); Basophils % 0.6 % (0-1.3); Hematocrit 40.3 % (36.0-45.0); Lymphocytes % 25.3 % (15.3-44.8); MPV 8.2 fL (7.6-11.3); RBC Red Blood Cell Count 4.19 M/uL (3.86-4.86)
[2019-09-12 06:50] LABS: Protime INR 1.32
[2019-09-12 07:01] LABS: ALT/SGPT 22 U/L (12-78); AST/SGOT 16 U/L (15-37); Alkaline Phosphatase 89 U/L (45-117); BUN Blood Urea Nitrogen 11 mg/dL (7-18); Bicarbonate 28 mmol/L (21-32); Bilirubin Direct 0.2 mg/dL (0-0.2); Bilirubin Total 0.6 mg/dL (0.2-1.0); Glucose Level 146 mg/dL (74-106); Lipase 94 U/L (73-393); Magnesium 2.2 mg/dL (1.8-2.4); NT PRO-BNP 1619 pg/mL (<450); Potassium 4.1 mmol/L (3.5-5.1); Protein, Total 7.6 g/dL (6.4-8.2); Sodium Level 133 mmol/L (136-145); Troponin (Emerg Dept Use Only) < 0.02 ng/mL (0.0-0.045)
--- NOTE | 2019-09-12 07:13 | RAD REPORT ---
EXAM DESCRIPTION: CT - Stone Protocol - 09/12/2019 6:59 am CLINICAL HISTORY: Flank pain. ABD PAIN COMPARISON: Abdomen Pelvis Wo Contrast dated 08/18/2019Abdomen Pelvis Wo Contrast dated 08/18/2019 ; Abdomen Pelvis W Contrast dated 08/04/2019 TECHNIQUE: Axial images were obtained without oral or IV contrast. Lack of contrast limits solid org an and vascular assessment. The [id number]-helb spans the entirety of the system partially obscuring uppermost abdomen and lung bases. Coronal reformatted images were obtained and reviewed. All CT scans are performed using dose optimization technique as appropriate and may include automated exposure control or mA/KV adjustment according to patient size. FINDINGS: The lower lung de souza are clear. Cholecystectomy clips. Imaged portions of the liver and spleen show no suspicious findings on non-contrast imaging. The panc reas and adrenal glands are normal. No pathologic lymphadenopathy in the abdomen or pelvis. No urinary tract stones or obstructive uropathy. 2.4 cm mildly complex right renal cystic lesion is s table. No bowel obstruction, free air, free fluid or abscess. Prominent rectosigmoid fecal retention.Normal appendix. No significant bony abnormality. Significant aortic atherosclerosis. IMPRESSION: No urinary tract stones or obstructive uropathy. Prominent rectosigmoid fecal retention. Stable mildly complex right renal cystic lesion measuring 2.4 cm.
--- NOTE | 2019-09-12 07:14 | RAD REPORT ---
EXAM DESCRIPTION: CT - Head Brain Wo Cont - 09/12/2019 7:08 am CLINICAL HISTORY: Dizziness;Syncope Headache, drowsiness COMPARISON: Head Brain Wo Cont dated 08/18/2019; Ct Stroke Brain Wo Cont dated 05/23/2019 TECHNIQUE: All CT scans are performed using dose optimization technique as appropriate and may inclu de automated exposure control or mA/KV adjustment according to patient size. FINDINGS: No intracranial hemorrhage, hydrocephalus or extra-axial fluid collection.Mild frontal lob e atrophy.No areas of brain edema or evidence of midline shift. Vertebral atherosclerosis. The paranasal sinuses and mastoids are clear. The calvarium is intact. IMPRESSION: No acute intracranial abnormality.
--- NOTE | 2019-09-12 07:30 | ER ---
Nurse's Notes [facility] Name: Radha Lara Age: 84 yrs Sex: Female : 1935 Arrival Date: 09/12/2019 Time: 04:54 Bed 2 Private MD: Diagnosis: Weakness;Fever, unspecified;Nausea;Atrial fibrillation and flutter;Urinary tract infection, site not specified;Volume depletion Presentation: 09/12 05:20 Presenting complaint: Patient states: wasn't feeling well yesterday, Pt C/O burning wh pain when urination and weakness. Daughter states Pt was here a few weeks ago for same symptoms but nothing was prescribed. Transition of care: patient was not received from another setting of care. Onset of symptoms was September 12, 2019. Risk Assessment: Do you want to hurt yourself or someone else? Patient reports no desire to harm self or others. Initial Sepsis Screen: Does the patient meet any 2 criteria? No. Patient's initial sepsis screen is negative. Does the patient have a suspected source of infection? Yes: Dysuria/Frequency/Urgency/UTI. Care prior to arrival: None. 05:20 Method Of Arrival: Wheelchair 05:20 Acuity: YOLANDE 3 Historical: - Allergies: 05:45 Aspirin; 05:45 Clonidine; 05:45 Codeine; 05:45 Ibuprofen; 05:45 Iodinated Contrast Media - IV Dye; 05:45 Lisinopril; 05:45 Niacin; 05:45 Nitrofurantoin; 05:45 nitrous oxide; 05:45 vicoden; 05:45 Zoloft; - Home Meds: 05:45 amlodipine 5 mg tab 1 tab once daily for Hypertension [Active]; carvedilol 25 mg Oral wh tab 1 tab 2 times per day [Active]; cranberry Oral twice a day [Active]; Crestor 40 mg Oral tab once daily [Active]; Eliquis 5 mg Oral tab 2 times per day [Active]; furosemide 40 mg Oral tab as needed [Active]; hydralazine 100 mg Oral tab 3 times per day [Active]; irbesartan 150 mg Oral tab 1 tab once daily [Active]; levothyroxine 75 mcg tab 1 tab once daily [Active]; magnesium oxide 500 mg Oral cap [Active]; metformin 500 mg Oral Tb24 1 tab 2 times per day [Active]; Multiple Vitamins Oral tab daily [Active]; omeprazole 40 mg Oral cpDR 1 cap once daily [Active]; Plavix 75 mg Oral tab 1 tab once daily [Active]; Probiotic Oral [Active]; Vitamin B-12 2,000 mcg Oral TbER daily [Active]; Vitamin D3 1,000 unit Oral chew daily [Active]; vitamin E Oral once daily [Active]; - PMHx: 05:45 acid reflux; ADD/ADHD; Atrial Fib; CVA; Diabetes - NIDDM; Hyperlipidemia; Hypertension; wh Kidney stones; PE; Sleep Apnea; TIA; UTI; - PSHx: 05:45 Hysterectomy; Cholecystectomy; Tonsillectomy; wh - Immunization history:: Adult Immunizations up to date. - Coronavirus screen:: The patient has NOT traveled to [place] in the past 14 days. - Social history:: Smoking status: Patient/guardian denies using. - Family history:: not pertinent. - Ebola Screening: : Patient negative for fever greater than or equal to 101.5 degrees Fahrenheit, and additional compatible Ebola Virus Disease symptoms Patient denies exposure to infectious person. Screenin:45 Abuse screen: Denies threats or abuse. Denies injuries from another. Nutritional wh screening: No deficits noted. Tuberculosis screening: No symptoms or risk factors identified. Fall Risk None identified. Assessment: 05:30 General: Appears in no apparent distress. comfortable, Behavior is calm, cooperative, jb4 appropriate for age, Pt reports feeling weak all over for the past 2 days.. Pain: Denies pain. Neuro: Level of Consciousness is awake, alert, obeys commands, Oriented to person, place, time, situation, Moves all extremities. Full function Speech is normal, Facial symmetry appears normal. Cardiovascular: Patient's skin is warm and dry. Respiratory: Airway is patent Respiratory effort is even, unlabored, Respiratory pattern is regular, symmetrical. GI: No signs and/or symptoms were reported involving the gastrointestinal system. : No signs and/or symptoms were reported regarding the genitourinary system. EENT: No signs and/or symptoms were reported regarding the EENT system. Derm: Skin is intact, Skin is pink, warm \T\ dry. Musculoskeletal: Circulation, motion, and sensation intact. Range of motion: intact in all extremities. 06:45 Reassessment: Patient appears in no apparent distress at this time. Patient and/or jb4 family updated on plan of care and expected duration. Pain level reassessed. Patient is alert, oriented x 3, equal unlabored respirations, skin warm/dry/pink. 06:50 Reassessment: Pt taken to CT. jb4 07:30 Reassessment: Patient appears in no apparent distress at this time. Patient and/or ph family updated on plan of care and expected duration. Pain level reassessed. Patient is alert, oriented x 3, equal unlabored respirations, skin warm/dry/pink. 09:10 Reassessment: Patient appears in no apparent distress at this time. Patient and/or ph family updated on plan of care and expected duration. Pain level reassessed. Patient is alert, oriented x 3, equal unlabored respirations, skin warm/dry/pink. Report called to 4th floor, pt taken to room via wheelchair. Vital Signs: 05:45 BP 166 / 59; Pulse 71; Resp 16; Temp 98.5; Pulse Ox 97% on R/A; jb4 06:18 BP 164 / 58; Pulse 64; Resp 18; Pulse Ox 100% on R/A; jb4 07:30 BP 160 / 64; Pulse 72; Resp 18; Pulse Ox 96% on R/A; ph 08:56 BP 158 / 75; Pulse 78; Resp 18; Pulse Ox 95% on R/A; ph ED Course: 04:54 Patient arrived in ED. ag3 04:56 Hari Simmons MD is Attending Physician. iron 05:33 Shilpa Brewer, RN is Primary Nurse. ea 05:36 Triage completed. wh 05:46 Arm band placed on right wrist. wh 05:46 Patient has correct armband on for positive identification. Bed in low position. Call light in reach. Side rails up X 1. Pulse ox on. NIBP on. 06:25 Inserted saline lock: 22 gauge in left antecubital area, using aseptic technique. Blood ea collected. 06:49 XRAY Chest (1 view) In Process Unspecified. EDMS 06:59 CT Stone Protocol In Process Unspecified. EDMS 07:11 CT Head Brain wo Cont In Process Unspecified. EDMS 07:28 Joe Dunbar MD is Hospitalizing Provider. iron 08:59 No provider procedures requiring assistance completed. Patient admitted, IV remains in ph place. Administered Medications: 06:37 Drug: NS 0.9% 1000 ml Route: IV; Rate: 1 bolus; Site: left antecubital; ea 08:51 Follow up: Response: No adverse reaction; IV Status: Completed infusion; IV Intake: ph 1000ml 07:50 Drug: Rocephin 1 grams Route: IV; Rate: per protocol; Site: left antecubital; ph 08:52 Follow up: Response: No adverse reaction; IV Status: Completed infusion ph 08:51 Drug: NS 0.9% 1000 ml Route: IV; Rate: 125 ml/hr; Site: left antecubital; ph 08:51 Follow up: IV Status: Infusion continued upon admission ph 08:56 Drug: Lactulose 30 grams Volume: 45 ml; Route: PO; ph 09:23 Follow up: Response: No adverse reaction ph 09:20 Not Given (Other Intervention Used): Dulcolax Suppository 10 mg HI once ph Intake: 08:51 IV: 1000ml; Total: 1000ml. ph Outcome: 07:29 Decision to Hospitalize by Provider. iron 09:10 Admitted to Tele accompanied by tech, family with patient, via wheelchair, room 401, with chart, Report called to Xavier 09:10 Condition: stable 09:10 Instructed on the need for admit. 09:24 Patient left the ED. ph Signatures: Dispatcher [employer] EDMS Hari Simmons MD MD cha Hall, Patricia, RN RN ph Bryson, James, RN RN jb4 Antunez, Elena, RN RN ea Habalo, Winsy wh Gomez, Alice ag3 Corrections: (The following items were deleted from the chart) 06:54 05:00 General: Appears in no apparent distress. comfortable, Behavior is calm, jb4 cooperative, appropriate for age, Pt reports feeling weak all over for the past 2 days.. jb4 06:54 05:00 Pain: Denies pain. jb4 jb4 06:54 05:00 Neuro: Level of Consciousness is awake, alert, obeys commands, Oriented to jb4 person, place, time, situation, Moves all extremities. Full function Speech is normal, Facial symmetry appears normal, jb4 06:54 05:00 Cardiovascular: Patient's skin is warm and dry. jb4 jb4 06:54 05:00 Respiratory: Airway is patent Respiratory effort is even, unlabored, Respiratory jb4 pattern is regular, symmetrical, jb4 05:00 GI: No signs and/or symptoms were reported involving the gastrointestinal system. jb4 jb4 05:00 : No signs and/or symptoms were reported regarding the genitourinary system. [id number] 05:00 EENT: No signs and/or symptoms were reported regarding the EENT system. jb4 jb4 05:00 Derm: Skin is intact, Skin is pink, warm \T\ dry. jb4 jb4 05:00 Musculoskeletal: Circulation, motion, and sensation intact. Range of motion: jb4 intact in all extremities, jb4 06:00 Reassessment: Patient appears in no apparent distress at this time. Patient jb4 and/or family updated on plan of care and expected duration. Pain level reassessed. Patient is alert, oriented x 3, equal unlabored respirations, skin warm/dry/pink. jb4 05:00 BP 166 / 59; Pulse 71bpm; Resp 16bpm; Pulse Ox 97% RA; Temp 98.5F; jb4 jb4
--- NOTE | 2019-09-12 07:30 | EDPHYS ---
Physician Documentation [facility] Name: Radha Lara Age: 84 yrs Sex: Female : 1935 Arrival Date: 09/12/2019 Time: 04:54 Bed 2 Private MD: JESSICA Physician Hari Simmons HPI: 09/12 05:47 This 84 yrs old Female presents to ER via Wheelchair with complaints of Fever.iron 05:47 The patient reports fever, that was measured at 99 degrees Fahrenheit. Onset: The iron symptoms/episode began/occurred 3 day(s) ago. Modifying factors: there are no obvious modifying factors. Associated signs and symptoms: Pertinent positives: arthralgias, nausea, dysuria. Severity of symptoms: At their worst the symptoms were mild moderate yesterday, in the emergency department the symptoms are unchanged. The patient has not experienced similar symptoms in the past. Historical: - Allergies: 05:45 Aspirin; 05:45 Clonidine; 05:45 Codeine; 05:45 Ibuprofen; 05:45 Iodinated Contrast Media - IV Dye; 05:45 Lisinopril; 05:45 Niacin; 05:45 Nitrofurantoin; 05:45 nitrous oxide; 05:45 vicoden; 05:45 Zoloft; - Home Meds: 05:45 amlodipine 5 mg tab 1 tab once daily for Hypertension [Active]; carvedilol 25 mg Oral wh tab 1 tab 2 times per day [Active]; cranberry Oral twice a day [Active]; Crestor 40 mg Oral tab once daily [Active]; Eliquis 5 mg Oral tab 2 times per day [Active]; furosemide 40 mg Oral tab as needed [Active]; hydralazine 100 mg Oral tab 3 times per day [Active]; irbesartan 150 mg Oral tab 1 tab once daily [Active]; levothyroxine 75 mcg tab 1 tab once daily [Active]; magnesium oxide 500 mg Oral cap [Active]; metformin 500 mg Oral Tb24 1 tab 2 times per day [Active]; Multiple Vitamins Oral tab daily [Active]; omeprazole 40 mg Oral cpDR 1 cap once daily [Active]; Plavix 75 mg Oral tab 1 tab once daily [Active]; Probiotic Oral [Active]; Vitamin B-12 2,000 mcg Oral TbER daily [Active]; Vitamin D3 1,000 unit Oral chew daily [Active]; vitamin E Oral once daily [Active]; - PMHx: 05:45 acid reflux; ADD/ADHD; Atrial Fib; CVA; Diabetes - NIDDM; Hyperlipidemia; Hypertension; Kidney stones; PE; Sleep Apnea; TIA; UTI; - PSHx: 05:45 Hysterectomy; Cholecystectomy; Tonsillectomy; wh - Immunization history:: Adult Immunizations up to date. - Coronavirus screen:: The patient has NOT traveled to [place] in the past 14 days. - Social history:: Smoking status: Patient/guardian denies using. - Family history:: not pertinent. - Ebola Screening: : Patient negative for fever greater than or equal to 101.5 degrees Fahrenheit, and additional compatible Ebola Virus Disease symptoms Patient denies exposure to infectious person. ROS: 05:47 Constitutional: Negative for fever, chills, and weight loss, Eyes: Negative for injury, iron pain, redness, and discharge, ENT: Negative for injury, pain, and discharge, Neck: Negative for injury, pain, and swelling, Cardiovascular: Negative for chest pain, palpitations, and edema, Respiratory: Negative for shortness of breath, cough, wheezing, and pleuritic chest pain, Abdomen/GI: Negative for abdominal pain, nausea, vomiting, diarrhea, and constipation, Back: Negative for injury and pain, : Negative for injury, bleeding, discharge, and swelling, MS/Extremity: Negative for injury and deformity, Skin: Negative for injury, rash, and discoloration, Psych: Negative for depression, anxiety, suicide ideation, homicidal ideation, and hallucinations, Allergy/Immunology: Negative for hives, rash, and allergies, Endocrine: Negative for neck swelling, polydipsia, polyuria, polyphagia, and marked weight changes, Hematologic/Lymphatic: Negative for swollen nodes, abnormal bleeding, and unusual bruising. 05:47 Neuro: Positive for weakness. Exam: 05:47 Constitutional: This is a well developed, well nourished patient who is awake, alert, iron and in no acute distress. Head/Face: Normocephalic, atraumatic. Eyes: Pupils equal round and reactive to light, extra-ocular motions intact. Lids and lashes normal. Conjunctiva and sclera are non-icteric and not injected. Cornea within normal limits. Periorbital areas with no swelling, redness, or edema. ENT: Nares patent. No nasal discharge, no septal abnormalities noted. Tympanic membranes are normal and external auditory canals are clear. Oropharynx with no redness, swelling, or masses, exudates, or evidence of obstruction, uvula midline. Mucous membranes moist. Neck: Trachea midline, no thyromegaly or masses palpated, and no cervical lymphadenopathy. Supple, full range of motion without nuchal rigidity, or vertebral point tenderness. No Meningismus. Chest/axilla: Normal chest wall appearance and motion. Nontender with no deformity. No lesions are appreciated. Cardiovascular: Regular rate and rhythm with a normal S1 and S2. No gallops, murmurs, or rubs. Normal PMI, no JVD. No pulse deficits. Respiratory: Lungs have equal breath sounds bilaterally, clear to auscultation and percussion. No rales, rhonchi or wheezes noted. No increased work of breathing, no retractions or nasal flaring. Abdomen/GI: Soft, non-tender, with normal bowel sounds. No distension or tympany. No guarding or rebound. No evidence of tenderness throughout. Back: No spinal tenderness. No costovertebral tenderness. Full range of motion. Female : Normal external genitalia. Skin: Warm, dry with normal turgor. Normal color with no rashes, no lesions, and no evidence of cellulitis. MS/ Extremity: Pulses equal, no cyanosis. Neurovascular intact. Full, normal range of motion. Neuro: Awake and alert, GCS 15, oriented to person, place, time, and situation. Cranial nerves II-XII grossly intact. Motor strength 5/5 in all extremities. Sensory grossly intact. Cerebellar exam normal. Normal gait. Psych: Awake, alert, with orientation to person, place and time. Behavior, mood, and affect are within normal limits. Vital Signs: 05:45 BP 166 / 59; Pulse 71; Resp 16; Temp 98.5; Pulse Ox 97% on R/A; jb4 06:18 BP 164 / 58; Pulse 64; Resp 18; Pulse Ox 100% on R/A; jb4 07:30 BP 160 / 64; Pulse 72; Resp 18; Pulse Ox 96% on R/A; ph 08:56 BP 158 / 75; Pulse 78; Resp 18; Pulse Ox 95% on R/A; ph MDM: 05:02 Patient medically screened. [facility] 07:26 Data reviewed: vital signs, nurses notes, lab test result(s), EKG, radiologic studies, [facility] CT scan, plain films. 09/12 05:47 Order name: Basic Metabolic Panel [facility] 09/12 05:47 Order name: CBC with Diff [facility] 09/12 05:47 Order name: LFT's [facility] 09/12 05:47 Order name: Magnesium; Complete Time: 07:09 [facility] 09/12 05:47 Order name: NT PRO-BNP; Complete Time: 07:09 [facility] 09/12 05:47 Order name: PT-INR; Complete Time: 07:09 [facility] 09/12 05:47 Order name: Troponin (emerg Dept Use Only); Complete Time: 07:09 [facility] 09/12 05:47 Order name: Lipase; Complete Time: 07:09 [facility] 09/12 05:47 Order name: Blood Culture Adult (2) [facility] 09/12 05:47 Order name: Urine Culture [facility] 09/12 05:47 Order name: Procalcitonin [facility] 09/12 05:48 Order name: Basic Metabolic Panel; Complete Time: 07:09 [facility] 09/12 05:48 Order name: CBC with Automated Diff; Complete Time: 07:09 [facility] 09/12 05:48 Order name: Liver (Hepatic) Function; Complete Time: 07:09 [facility] 09/12 05:47 Order name: XRAY Chest (1 view) [facility] 09/12 05:47 Order name: EKG; Complete Time: 05:49 [facility] 09/12 05:47 Order name: Cardiac monitoring; Complete Time: 06:38 [facility] 09/12 05:47 Order name: EKG - Nurse/Tech; Complete Time: 06:38 [facility] 09/12 05:47 Order name: IV Saline Lock; Complete Time: 06:25 [facility] 09/12 05:47 Order name: Labs collected and sent; Complete Time: 06:25 [facility] 09/12 05:47 Order name: O2 Per Protocol; Complete Time: 06:38 [facility] 09/12 05:47 Order name: O2 Sat Monitoring; Complete Time: 06:38 [facility] 09/12 05:47 Order name: CT Head Brain wo Cont; Complete Time: 07:18 [facility] 09/12 05:51 Order name: CT Stone Protocol; Complete Time: 07:18 [facility] 09/12 06:25 Order name: Urine Dipstick--Ancillary (enter results) cm6 09/12 05:47 Order name: Urine Dipstick-Ancillary (obtain specimen); Complete Time: 07:01 [facility] Administered Medications: 06:37 Drug: NS 0.9% 1000 ml Route: IV; Rate: 1 bolus; Site: left antecubital; ea 08:51 Follow up: Response: No adverse reaction; IV Status: Completed infusion; IV Intake: ph 1000ml 07:50 Drug: Rocephin 1 grams Route: IV; Rate: per protocol; Site: left antecubital; ph 08:52 Follow up: Response: No adverse reaction; IV Status: Completed infusion ph 08:51 Drug: NS 0.9% 1000 ml Route: IV; Rate: 125 ml/hr; Site: left antecubital; ph 08:51 Follow up: IV Status: Infusion continued upon admission ph 08:56 Drug: Lactulose 30 grams Volume: 45 ml; Route: PO; ph 09:23 Follow up: Response: No adverse reaction ph 09:20 Not Given (Other Intervention Used): Dulcolax Suppository 10 mg HI once ph Disposition: 09/12/19 07:29 Hospitalization ordered by Joe Dunbar for Inpatient Admission. Preliminary diagnosis are Weakness, Fever, unspecified, Nausea, Atrial fibrillation and flutter, Urinary tract infection, site not specified, Volume depletion. - Bed requested for Telemetry/MedSurg (Inpatient). - Status is Inpatient Admission. ph - Condition is Fair. - Problem is new. - Symptoms have improved. Signatures: Dispatcher [employer] EDMS Sunshine Guthrie Corey, MD MD cha Hall, Patricia, RN RN Shilpa Stuart, RN RN Jessica Upton Corrections: (The following items were deleted from the chart) 07:30 07:29 Hospitalization Ordered by Joe Dunbar MD for Inpatient Admission. Preliminary [facility] diagnosis is Weakness; Fever, unspecified; Nausea; Atrial fibrillation and flutter; Urinary tract infection, site not specified. Bed requested for Telemetry/MedSurg (Inpatient). Status is Inpatient Admission. Condition is Fair. Problem is new. Symptoms have improved. [facility] 08:50 07:30 09/12/2019 07:29 Hospitalization Ordered by Joe Dunbar MD for Inpatient bd Admission. Preliminary diagnosis is Weakness; Fever, unspecified; Nausea; Atrial fibrillation and flutter; Urinary tract infection, site not specified; Volume depletion. Bed requested for Telemetry/MedSurg (Inpatient). Status is Inpatient Admission. Condition is Fair. Problem is new. Symptoms have improved. rion 09:24 08:50 09/12/2019 07:29 Hospitalization Ordered by Joe Dunbar MD for Inpatient ph Admission. Preliminary diagnosis is Weakness; Fever, unspecified; Nausea; Atrial fibrillation and flutter; Urinary tract infection, site not specified; Volume depletion. Bed requested for Telemetry/MedSurg (Inpatient). Status is Inpatient Admission. Condition is Fair. Problem is new. Symptoms have improved. bd
[2019-09-12 07:45] LABS: Urine Blood NEGATIVE (NEG); Urine Glucose NEGATIVE (NEG); Urine Protein NEGATIVE (NEG); Urine pH 8.5 (5.0-7.0)
--- NOTE | 2019-09-12 09:05 | RAD REPORT ---
EXAM DESCRIPTION: RAD - Chest Single View - 09/12/2019 6:41 am CLINICAL HISTORY: COUGH Chest pain. COMPARISON: Chest Single View dated 08/18/2019; Chest Single View dated 07/19/2019; Chest Single View dated 05/23/2019; Chest Single View dated 04/29/2019 FINDINGS: Portable technique limits examination quality. The lungs are grossly clear. The heart is mildly enlarged with sternotomy wires present. No displaced fractures. IMPRESSION: No acute intrathoracic process suspected.
[2019-09-12] MEDS ORDERED: LACTULOSE 20 GM/30 ML UCUP ONE (09:06)
[2019-09-12] MEDS ORDERED: ACETAMINOPHEN 500 MG TAB PO PRN (09:09)
[2019-09-12] MEDS ORDERED: ONDANSETRON 4 MG/2 ML VIAL IV PRN (09:09)
[2019-09-12] MEDS: NA CHLORIDE 0.9% 1,000 ML IV SCH ×3 (09:35→22:29)
[2019-09-12 09:51] VITALS: BMI 23.4
--- NOTE | 2019-09-12 10:19 | EKG ---
Test Date: 2019-09-12 Test Time: 06:35:52 Display Maker: ILENE MEASUREMENT RESULTS: Intervals: Rate: 67 CT: QRSD: 84 QT: 388 QTc: 409 [place]: P: CT: QRS: 10 T: 103 INTERPRETIVE STATEMENTS: Atrial fibrillation Nonspecific ST and T wave abnormality, probably digitalis effect Abnormal ECG Compared to ECG 07/19/2019 18:10:40 ST (T wave) deviation now present Myocardial infarct finding no longer present Electronically Signed On 09-12-19 10:18:52 THERAPIST by Ayaan Ni
[2019-09-12] MEDS: INSULIN -REGULAR HUMAN 50 UNIT/0.5 ML ML SQ SCH ×3 (11:30→21:00)
--- NOTE | 2019-09-12 12:44 | P.HP ---
Certification for Inpatient Patient admitted to: Observation With expected LOS: <2 Midnights Patient will require the following post-hospital care: None Practitioner: I am a practitioner with admitting privileges, knowledge of patient current condition, hospital course, and medical plan of care. Services: Services provided to patient in accordance with Admission requirements found in Title 42 Section 412.3 of the Code of Federal Regulations Patient History Date of Service: 09/12/19 Reason for admission: UTI History of Present Illness: Patient is an 84-year-old female with past medical history of hypertension hyperlipidemia diabetes pulmonary embolism on anticoagulation atrial fibrillation coronary artery disease history of kidney stones who has recurrent UTIs comes in with similar symptoms of dysuria frequency. Patient's symptoms are constant moderate progressively worsening. Denies any fevers or chills. Patient had cystoscopy 2 years ago which was normal. Patient came into the ER for further evaluation. Patient's vital signs were stable she was afebrile. Her workup revealed a abnormal UA. CT scan of the abdomen did not show any nephrolithiasis. Does show incidental renal cyst which is stable from previous imaging. For calcitonin was negative white blood cell count was normal. Patient did have some nausea vomiting and was dehydrated. Due to her nausea and vomiting was felt that she would not tolerate oral antibiotics and was admitted for further evaluation. When seen in the ER she was awake alert oriented x3 in some mild distress Allergies aspirin Adverse Reaction (Verified 09/12/19 11:53) RAPID HEART RATE clonidine Adverse Reaction (Verified 09/12/19 11:53) Rapid Heart Rate codeine [Codeine] Adverse Reaction (Verified 09/12/19 11:53) CONFUSION hydrocodone bitartrate [From Vicodin] Adverse Reaction (Verified 09/12/19 11:53) CONFUSION iodine Adverse Reaction (Verified 09/12/19 11:53) NAUSEA lisinopril Adverse Reaction (Verified 09/12/19 11:53) COUGH niacin Adverse Reaction (Verified 09/12/19 11:53) Rash nitrofurantoin Adverse Reaction (Verified 09/12/19 11:53) Itching/Hives/Rash nitrous oxide [Nitrous Oxide] Adverse Reaction (Verified 09/12/19 11:53) Shortness of breath iodine dye Allergy (Intermediate, Uncoded 09/12/19 11:53) Itching/Hives/Rash Home medications list reviewed: Yes Home Medications: Amlodipine [Norvasc*] 1 tab PO BEDTIME 02/18/19 Apixaban [Eliquis] 1 tab PO BID 02/18/19 Cholecalciferol (Vitamin D3) [Vitamin D3] 1 cap PO DAILY 02/18/19 Clopidogrel Bisulfate [Plavix*] 1 tab PO BEDTIME 02/18/19 Cranberry 4,200 mg PO BID 02/18/19 Hydralazine HCl [Apresoline] 1 tab PO TID 02/18/19 Irbesartan [Avapro*] 1 tab PO DAILY 02/18/19 L.acidoph,Paracasei, B.lactis [Probiotic] 1 cap PO BEDTIME 02/18/19 Magnesium Oxide [Magnesium] 1 tab PO DAILY 02/18/19 Metformin ER [Glucophage ER*] 1 tab PO BID 02/18/19 Multivitamin [Multivitamins] 1 cap PO DAILY 02/18/19 Omeprazole [Prilosec] 1 tab PO DAILY 02/18/19 Rosuvastatin Calcium [Crestor] 1 tab PO DAILY 02/18/19 Vitamin E 1 tab PO DAILY 02/18/19 carvediloL [Coreg*] 1 tab PO BID 02/18/19 Levothyroxine [Synthroid*] 75 mcg PO [id number] #30 tab 02/19/19 Acetaminophen [Tylenol Arthritis] 1 tab PO SEECOM 09/12/19 Cyanocobalamin [Vitamin B-12] 2,000 mcg PO DAILY 09/12/19 Furosemide 40 mg PO SEECOM 09/12/19 - Past Medical/Surgical History Has patient received pneumonia vaccine in the past: Yes Diabetic: Yes -: History of nephrolithiasis -: History of TIA- 2 -: History of pulmonary embolism on chronic anti coagulation therapy -: Diabetes mellitus type 2, [id number] -: CAD -: GERD -: Atrial fibrillation on chronic anti coagulation therapy -: Hyperlipidemia -: HTN -: Depression with anxiety -: UTI -: Tonsillectomy -: Removal of colon polyps -: CABG -: Cholecystectomy -: Hysterectomy -: Bone Spurs removed -: Triple Bypass -: 3 Stents in right kidney Psychosocial/ Personal History: Patient lives at home. 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 - Family History Mother -: Heart disease, Other (see notes) Notes: [place]. Age of 64 Father -: Heart disease Notes: Age of 77 - Social History Smoking Status: Never smoker Alcohol use: No CD- Drugs: No Caffeine use: Yes Place of Residence: Home Review of Systems 10-point ROS is otherwise unremarkable Genitourinary: As per HPI Physical Examination - Vital Signs Temperature: 97.6 F Blood Pressure: 173/77 Pulse: 71 Respirations: 16 Pulse Ox (%): 96 - Physical Exam General: Alert, Oriented x3, Mild distress, Other (Ill-appearing elderly female) HEENT: Atraumatic, PERRLA, Mucous membr. moist/pink, EOMI, Sclerae nonicteric Neck: Supple, JVD not distended Respiratory: Clear to auscultation bilaterally, Normal air movement Cardiovascular: No edema, Normal pulses, Normal S1 S2, Irregular heart rate/ rhythm Gastrointestinal: Normal bowel sounds, Soft and benign, Non-distended, Tenderness (Suprapubic region) Musculoskeletal: No tenderness Integumentary: No rashes, No erythema Neurological: Normal gait, Normal speech, Normal strength at 5/5 x4 extr, Normal tone, Normal affect - Studies Laboratory Data (last 24 hrs) 09/12/19 06:10: PT 15.4 H, INR 1.32 09/12/19 06:10: WBC 8.1, Hgb 13.4, Hct 40.3, Plt Count 208 09/12/19 06:10: Sodium 133 L, Potassium 4.1, BUN 11, Creatinine 0.63, Glucose 146 H, Magnesium 2.2, Total Bilirubin 0.6, AST 16, ALT 22, Alkaline Phosphatase 89, Lipase 94 Imagings Data: CT scan abdomen IMPRESSION: No urinary tract stones or obstructive uropathy. Prominent rectosigmoid fecal retention. Stable mildly complex right renal cystic lesion measuring 2.4 cm. Assessment and Plan - Problems (Diagnosis) (1) Acute cystitis without hematuria Current Visit: Yes Status: Acute (2) Acute dehydration Current Visit: Yes Status: Acute (3) Nausea & vomiting Current Visit: Yes Status: Acute Qualifiers: Vomiting type: unspecified Vomiting Intractability: non-intractable Qualified Code(s): R11.2 - Nausea with vomiting, unspecified (4) Hyponatremia Current Visit: No Status: Resolved (5) Atrial fibrillation Onset Date: 11/13/15 Current Visit: No Status: Chronic Qualifiers: Atrial fibrillation type: paroxysmal Qualified Code(s): I48.0 - Paroxysmal atrial fibrillation (6) Diabetes mellitus Onset Date: 11/13/15 Current Visit: No Status: Chronic Qualifiers: Diabetes mellitus type: type 2 Diabetes mellitus chcf insulin use: without termite control servicer use Diabetes mellitus complication status: with hyperglycemia Qualified Code(s): E11.65 - Type 2 diabetes mellitus with hyperglycemia (7) GERD (gastroesophageal reflux disease) Onset Date: 11/16/17 Current Visit: No Status: Chronic Qualifiers: Esophagitis presence: without esophagitis Qualified Code(s): K21.9 - Gastro -esophageal reflux disease without esophagitis (8) HTN (hypertension) Onset Date: 11/16/17 Current Visit: No Status: Chronic Qualifiers: Hypertension type: essential hypertension Qualified Code(s): I10 - Essential (primary) hypertension (9) History of heart disease Current Visit: No Status: Chronic (10) History of pulmonary embolus (PE) Current Visit: No Status: Chronic - Plan Will start on Rocephin 1 mg IV q 24 hr Follow up on urine cultures. Patient is and multiple recurrent UTIs there is a possibility of multi-drug resistant bacteria. Patient is to follow up with urology as an outpatient did speak to urologist on- call Dr. Longo recommends outpatient followup for possible repeat cystoscopy. Start on IV fluids for dehydration IV anti emetics Continue with home medications DVT prophylaxis addressed patient is on chronic anticoagulation with Eliquis Discharge Plan: Home Plan to discharge in: 24 Hours - Advance Directives Does patient have a Living Will: No Does patient have a Durable POA for Healthcare: No
[2019-09-12] MEDS: HYDRALAZINE HCL 25 MG TABLET PO SCH ×3 (13:32→21:08)
[2019-09-12] MEDS ORDERED: LACTOBACILLUS/ACIDOPHILUS TAB PO SCH (21:00)
[2019-09-12] MEDS ORDERED: CLOPIDOGREL 75 MG TABLET PO SCH (21:00)
[2019-09-12] MEDS ORDERED: ROSUVASTATIN 10 MG TAB PO SCH (21:00)
[2019-09-12] MEDS ORDERED: AMLODIPINE 10 MG TAB PO SCH (21:00)
[2019-09-12] MEDS: APIXABAN 5 MG TABLET PO SCH (21:08)
[2019-09-12] MEDS: carvediloL 25 MG TAB PO SCH (21:08)
[2019-09-13] MEDS ORDERED: LEVOTHYROXINE SOD 0.075 MG TAB PO SCH (06:00)
[2019-09-13] MEDS ORDERED: CEFTRIAXONE/SWI 1gm 1 GM/10 ML SYR IV SCH (06:00)
[2019-09-13] MEDS: INSULIN -REGULAR HUMAN 50 UNIT/0.5 ML ML SQ SCH (07:30)
[2019-09-13 08:14] VITALS: O2SAT 96
[2019-09-13] MEDS: carvediloL 25 MG TAB PO SCH (08:23)
[2019-09-13 08:24] VITALS: BP 174/73
[2019-09-13] MEDS: HYDRALAZINE HCL 25 MG TABLET PO SCH (08:24)
[2019-09-13] MEDS: APIXABAN 5 MG TABLET PO SCH (08:24)
[2019-09-13] MEDS ORDERED: IRBESARTAN 150 MG TAB PO SCH (09:00)
[2019-09-13] MEDS ORDERED: PANTOPRAZOLE 40MG TABLET PO SCH (09:00)
--- NOTE | 2019-09-13 11:03 | P.DS ---
Admission Date: 09/12/19 Discharge Date: 09/13/19 Primary Care Provider: Dr. Britt Disposition: ROUTINE DISCHARGE Discharge Condition: FAIR Reason for Admission: UTI - Problems (1) Acute cystitis without hematuria Status: Acute (2) Acute dehydration Status: Acute (3) Nausea & vomiting Status: Acute Qualifiers: Vomiting type: unspecified Vomiting Intractability: non-intractable Qualified Code(s): R11.2 - Nausea with vomiting, unspecified (4) Hyponatremia Status: Resolved (5) Atrial fibrillation Onset Date: 11/13/15 Status: Chronic Qualifiers: Atrial fibrillation type: paroxysmal Qualified Code(s): I48.0 - Paroxysmal atrial fibrillation (6) Diabetes mellitus Onset Date: 11/13/15 Status: Chronic Qualifiers: Diabetes mellitus type: type 2 Diabetes mellitus intermission coordinator insulin use: without nursing home use Diabetes mellitus complication status: with hyperglycemia Qualified Code(s): E11.65 - Type 2 diabetes mellitus with hyperglycemia (7) GERD (gastroesophageal reflux disease) Onset Date: 11/16/17 Status: Chronic Qualifiers: Esophagitis presence: without esophagitis Qualified Code(s): K21.9 - Gastro -esophageal reflux disease without esophagitis (8) HTN (hypertension) Onset Date: 11/16/17 Status: Chronic Qualifiers: Hypertension type: essential hypertension Qualified Code(s): I10 - Essential (primary) hypertension (9) History of heart disease Status: Chronic (10) History of pulmonary embolus (PE) Status: Chronic Brief History of Present Illness: Patient is an 84-year-old female with past medical history of hypertension hyperlipidemia diabetes pulmonary embolism on anticoagulation atrial fibrillation coronary artery disease history of kidney stones who has recurrent UTIs comes in with similar symptoms of dysuria frequency. Patient's symptoms are constant moderate progressively worsening. Denies any fevers or chills. Patient had cystoscopy 2 years ago which was normal. Patient came into the ER for further evaluation. Patient's vital signs were stable she was afebrile. Her workup revealed a abnormal UA. CT scan of the abdomen did not show any nephrolithiasis. Does show incidental renal cyst which is stable from previous imaging. For calcitonin was negative white blood cell count was normal. Patient did have some nausea vomiting and was dehydrated. Due to her nausea and vomiting was felt that she would not tolerate oral antibiotics and was admitted for further evaluation. When seen in the ER she was awake alert oriented x3 in some mild distress Hospital Course: Patient is an 84-year-old female with multiple chronic medical conditions including diabetes hypertension atrial fibrillation comes in with nausea vomiting dehydration and found to have UTI. Patient was symptomatically dysuria frequency and urgency. Patient has had multiple recurrent UTIs in the past. Does see a urologist on a regular basis. Patient was admitted to the hospital for IV antibiotics as she was unable to tolerate p.o.. Patient was started on IV fluids and anti emetics. Patient responded well to the treatment. She did not have any signs of sepsis. Her blood cultures were negative to date. Her urine cultures are growing out Gram negative rods. Final ID and sensitivities pending at this time. Patient is doing well clinically no signs of sepsis. White blood cell count was normal no fever chills tachycardia. Patient's symptoms improved. Patient was then discharged home in a stable condition. I did speak to urologist on-call Dr. Longo who recommends that the patient follow up with her primary urologist as an outpatient for a cystoscopy. Her last cystoscopy was 2 years ago and was normal. Vital Signs/Physical Exam: Temp Pulse Resp BP Pulse Ox 98.4 F 93 H 16 174/73 H 94 09/13/19 04:00 09/13/19 08:23 09/13/19 04:00 09/13/19 08:23 09/13/19 04:00 General: Alert, In no apparent distress, Oriented x3, Other (Elderly female) HEENT: Atraumatic, PERRLA, EOMI Neck: Supple, JVD not distended Respiratory: Clear to auscultation bilaterally, Normal air movement Cardiovascular: No edema, Normal pulses, Normal S1 S2, Irregular heart rate/ rhythm Gastrointestinal: Normal bowel sounds, Soft and benign, Non-distended, No tenderness Musculoskeletal: No tenderness Integumentary: No rashes Neurological: Normal speech, Normal strength at 5/5 x4 extr, Normal tone, Normal affect Laboratory Data at Discharge: WBC 8.1 K/uL (4.3-10.9) 09/12/19 06:10 Hgb 13.4 g/dL (12.0-15.0) 09/12/19 06:10 Hct 40.3 % (36.0-45.0) 09/12/19 06:10 Plt Count 208 K/uL (152-406) 09/12/19 06:10 PT 15.4 SECONDS (9.5-12.5) H 09/12/19 06:10 INR 1.32 09/12/19 06:10 Sodium 133 mmol/L (136-145) L 09/12/19 06:10 Potassium 4.1 mmol/L (3.5-5.1) 09/12/19 06:10 BUN 11 mg/dL (7-18) 09/12/19 06:10 Creatinine 0.63 mg/dL (0.55-1.3) 09/12/19 06:10 Glucose 146 mg/dL (74-106) H 09/12/19 06:10 Magnesium 2.2 mg/dL (1.8-2.4) 09/12/19 06:10 Total Bilirubin 0.6 mg/dL (0.2-1.0) 09/12/19 06:10 AST 16 U/L (15-37) 09/12/19 06:10 ALT 22 U/L (12-78) 09/12/19 06:10 Alkaline Phosphatase 89 U/L (45-117) 09/12/19 06:10 Lipase 94 U/L (73-393) 09/12/19 06:10 Home Medications: Amlodipine [Norvasc*] 1 tab PO BEDTIME 02/18/19 Apixaban [Eliquis] 1 tab PO BID 02/18/19 Cholecalciferol (Vitamin D3) [Vitamin D3] 1 cap PO DAILY 02/18/19 Clopidogrel Bisulfate [Plavix*] 1 tab PO BEDTIME 02/18/19 Cranberry 4,200 mg PO BID 02/18/19 Hydralazine HCl [Apresoline] 1 tab PO TID 02/18/19 Irbesartan [Avapro*] 1 tab PO DAILY 02/18/19 L.acidoph,Paracasei, B.lactis [Probiotic] 1 cap PO BEDTIME 02/18/19 Magnesium Oxide [Magnesium] 1 tab PO DAILY 02/18/19 Metformin ER [Glucophage ER*] 1 tab PO BID 02/18/19 Multivitamin [Multivitamins] 1 cap PO DAILY 02/18/19 Omeprazole [Prilosec] 1 tab PO DAILY 02/18/19 Rosuvastatin Calcium [Crestor] 1 tab PO DAILY 02/18/19 Vitamin E 1 tab PO DAILY 02/18/19 carvediloL [Coreg*] 1 tab PO BID 02/18/19 Levothyroxine [Synthroid*] 75 mcg PO [id number] #30 tab 02/19/19 Acetaminophen [Tylenol Arthritis] 1 tab PO SEECOM 09/12/19 Cyanocobalamin [Vitamin B-12*] 2,000 mcg PO DAILY 09/12/19 Furosemide 40 mg PO SEECOM 09/12/19 Sulfamethoxazole/Trimethoprim [Bactrim Ds Tablet] 1 each PO BID #8 tablet New Medications: Sulfamethoxazole/Trimethoprim [Bactrim Ds Tablet] 1 each PO BID #8 tablet Patient Discharge Instructions: f/up w PCP in 2-3 days. f/up w primary urologist in 1 week. Return to ER for worsening condition Diet: ADA Activity: Ad treva
[2019-09-13 11:35] VITALS: TEMP 97.8
--- NOTE | 2019-09-14 10:38 | P.PN ---
Date of Service: 09/14/19 Patients urine culture grew out proteus but is resistant to bactrim. Patient was notified and new prescription for cefuroxime was e prescribed to her pharmacy. Patient understands that she needs to stop taking the bactrim and switch to the cefuroxime. She was able to repeat my instructions to her. I answered all of her questions.
== END 2019-09-13 10:33 | disposition home or self-care (01) ==
LOC: ER 04:51 → ERHOLD 07:35 → 4TH 09:10 → UNDODISOB 10:41
PROVIDERS: ADMIT Family Medicine; ATTEND Family Medicine
DX: N30.01 Acute cystitis with hematuria (principal); E87.1 Hypo-osmolality and hyponatremia; I10 Essential (primary) hypertension; E78.5 Hyperlipidemia, unspecified; E86.0 Dehydration; I48.0 Paroxysmal atrial fibrillation; I25.10 Atherosclerotic heart disease of native coronary artery without angina pectoris; E11.65 Type 2 diabetes mellitus with hyperglycemia; K21.9 Gastro-esophageal reflux disease without esophagitis; F41.8 Other specified anxiety disorders; Z86.73 Personal history of transient ischemic attack (TIA), and cerebral infarction without residual deficits; Z86.711 Personal history of pulmonary embolism
CPT/HCPCS: 96365; 96361; 93005; 87040 ×2; 87088; 85025; 87086; 80048; 36415; 83735; 85610; 82947 ×5; 80076; 87077; 87186; 81003; 84484; 83690; 84145; 83880; 70450; 76377; 74176; 71045; 94760 ×3; 99285; J0696 ×2; J7030 ×2; G0378 ×3

== ENCOUNTER 2019-10-01 18:11 | Emergency (ER) | payer OTHER ==
--- OUTSIDE RECORDS SUMMARY | 2019-10-01 18:14 | XMS REPORT ---
[...] End Status Dosage System Date Date Toviaz [facility] 40586089132 8 MG Orally Active 1 tablet Once a day Valsartan [facility] 51473197485 160 MG Orally Active 1 tablet Once a day Tylenol Arthritis NDC 0 Active not defined Pain Metformin HCl [facility] 88986055490 500 MG Orally Active 1 tablet with Twice a day meals Estradiol [facility] 55619038650 0.1 MG/GM January Active as directed Vaginal Two 22, times a Week 2018 Probiotic [facility] 15810-16018 Active not defined Cranberry [facility] 28142-08519 Active not defined Concentrate Bactrim DS ND 84708712871 800-160 MG December Active 1 tablet Orally Twice a 2018 Cyanocobalamin [facility] [address]-11 1000 MCG/15ML Active 15 ml Orally Once a day HydrALAZINE HCl [facility] 21357401016 100 MG Orally December 05, Active as directed Three times a 2017 day Eliquis [facility] 67254503635 5 MG Orally Active 1 tablet twice a day Omeprazole [facility] 40109427388 40 Active TAKE 1 CAPSULE BY MOUTH EVERY DAY Levothyroxine [facility] [address]-50 Active not defined Sodium Verapamil HCl [facility] [address]-74 Active not defined Irbesartan [facility] 11531376802 150 MG Orally Active 1 tablet Once a day Sertraline HCl [facility] 30406677101 25 Orally Once Active 1 tablet a day Bactrim DS [facility] 03614015661 800-160 MG January Active 1 tablet Orally Twice a 2017 Multivitamin [facility] 99198-69956 Active not defined Sertraline HCl [facility] 58797851582 25 MG Orally Active 1 tablet Once a day Metformin HCl [facility] 55923125427 500 Active TAKE 1 TABLET BY MOUTH TWICE DAILY Vitamin B-12 [facility] 19494-43618 Active not defined Levetiracetam [facility] 94793235130 250 MG Orally Active 1 tablet every 12 hrs Amlodipine [facility] 92469726171 10 MG Orally Active 1 tablet Besylate Once a day Magnesium ND 0 Active not defined HydrALAZINE HCl [facility] 75503697565 100 MG Orally Active 1 tablet with Three times a food day Carvedilol [facility] 69042008942 25 MG Orally Active as directed Vitamin E [facility] 86543-62882 Active not defined Coreg [facility] 82226884158 25 MG Orally Active not defined Vitamin D3 [facility] 00398738364 1000 UNIT Active 1 capsule Orally Once a day Ranitidine [facility] 45816866966 Active not defined Rosuvastatin [facility] 74139338832 40 Active TAKE 1 TABLET Calcium BY MOUTH DAILY Plavix [facility] 08063413940 75 MG Orally Active 1 tablet Once a day Omeprazole [facility] 24014893914 40 MG orally Active 1 EACH ONCE A daily in AM DAY Fluconazole [facility] 55267138178 150 MG Orally Sep 15, Active 1 tablet one tab a week 2019 today and may repeat one tab in 1 week if no improvement Crestor [facility] 06161441609 40 MG Active 1 EACH ONCE A DAY Results No Known Results Summary Purpose eClinicalWorks Submission
--- OUTSIDE RECORDS SUMMARY | 2019-10-01 18:14 | XMS REPORT ---
:1935 [facility] Address [address] [place] [address] [address] [place] [address] Care Team Providers Name Role Phone LARISSA [...] for FINAL REPORT PATIENT ID: BRAIN exam:->stroke [id number] CLINICAL HISTORY: TIA TECHNIQUE: Initially, noncontrast head [...] intact. There is no evidence for a [place] proximal branch vessel occlusion. Mild [...] artery stenosis, unchanged. No evidence for a [place] proximal branch vessel occlusion. Signed: Alexa Koch MDReport Verified Date/Time: 05/01/2019 10:58:29 Reading Location: [facility] C013V Neuro Reading Room , [place], 2019-05-01 10:58:00 Reason for exam:->eval FINAL REPORT PATIENT ID: ANGIO for TIA [id number] CLINICAL HISTORY: TIA TECHNIQUE: Initially, noncontrast head [...] intact. There is no evidence for a [place] proximal branch vessel occlusion. Mild [...] artery stenosis, unchanged. No evidence for a [place] proximal branch vessel occlusion. Signed: Alexa Koch MDReport Verified Date/Time: 05/01/2019 10:58:29 Reading Location: [facility] C013V Neuro Reading Room C METABOLIC PANEL 2019-05-01 06:04:00 Test Item Value Reference Range Comments SODIUM (BEAKER) (test 133 meq/L 136-145 sesk=745) POTASSIUM (BEAKER) (test 4.3 meq/L 3.5-5.1 efvs=375) CHLORIDE (BEAKER) (test 104 meq/L 98-107 xaxg=040) CO2 (BEAKER) (test jjis=815) 24 meq/L 22-29 BLOOD UREA NITROGEN (BEAKER) 8 mg/dL 7-21 (test qgsi=215) CREATININE (BEAKER) (test 0.63 mg/dL 0.57-1.25 jbri=127) GLUCOSE RANDOM (BEAKER) 105 mg/dL 70-105 (test hhbc=287) CALCIUM (BEAKER) (test 8.8 mg/dL 8.4-10.2 caol=500) EGFR (BEAKER) (test 90 mL/min/1.73 sq m ESTIMATED GFR IS NOT emdq=0968) ACCURATE CREATININE CLEARANCE IN PREDICTING GLOMERULAR FILTRATION RATE. ESTIMATED GFR IS NOT APPLICABLE FOR DIALYSIS PATIENTS. CBC (HEMOGRAM ONLY)2019-05-01 04:59:00 Test Item Value Reference Range Comments WHITE BLOOD CELL COUNT (BEAKER) (test domv=068) 7.4 K/ L 3.5-10.5 RED BLOOD CELL COUNT (BEAKER) (test dutg=151) 3.56 M/ L 3.93-5.22 HEMOGLOBIN (BEAKER) (test pwyq=149) 11.3 GM/DL 11.2-15.7 HEMATOCRIT (BEAKER) (test zmfl=710) 33.9 % 34.1-44.9 MEAN CORPUSCULAR VOLUME (BEAKER) (test wmaw=040) 95.2 fL 79.4-94.8 MEAN CORPUSCULAR HEMOGLOBIN (BEAKER) (test 31.7 pg 25.6-32.2 ljfa=358) MEAN CORPUSCULAR HEMOGLOBIN CONC (BEAKER) (test 33.3 GM/DL 32.2-35.5 wkjh=759) RED CELL DISTRIBUTION WIDTH (BEAKER) (test 12.0 % 11.7-14.4 bvqk=675) PLATELET COUNT (BEAKER) (test uefy=454) 170 K/CU MM 150-450 MEAN PLATELET VOLUME (BEAKER) (test khiv=855) 9.6 fL 9.4-12.3 NUCLEATED RED BLOOD CELLS (BEAKER) (test 0 /100 WBC 0-0 zzmt=541) TROPONIN [id number] 20:18:00 Test Item Value Reference Range Comments TROPONIN I (BEAKER) (test hvlm=790) < ng/mL 0.00-0.03 Troponin I (TnI) levels [...] neurological disease, and persistent tachyarrhythmia.MR, BRAIN, WITHOUT [id number] 19 :07:00Reason for exam:->Ischemic Stroke EvaluationFINAL REPORT [...] Verified Date/ Time: 04/30/2019 19:07:03 Reading Location: [address] Neuro Reading Room HEMOGLOBIN [id number] 10:33:00 Test Item Value Reference Range Comments HEMOGLOBIN A1C (BEAKER) (test lhhm=277) 6.6 % 4.3-6.1 FastingVITAMIN [id number] 09:00:00 Test Item Value Reference Range Comments VITAMIN B12 (BEAKER) (test fcfk=791) 654 pg/mL 213-816 Add on please to morning labsAdd on to morning labsTSH/FREE T4 IF [id number] 09:00:00 Test Item Value Reference Range Comments THYROID STIMULATING HORMONE (BEAKER) (test 0.69 uIU/mL 0.35-4.94 bwmf=214) Add on please to morning labsAdd on to morning labsBASIC METABOLIC [id number] 07:30:00 Test Item Value Reference Range Comments SODIUM (BEAKER) (test 131 meq/L 136-145 owtc=534) POTASSIUM (BEAKER) (test 4.2 meq/L 3.5-5.1 Specimen slightly mfxg=613) hemolyzed CHLORIDE (BEAKER) (test 99 meq/L 98-107 ktyu=897) CO2 (BEAKER) (test 23 meq/L 22-29 byjk=492) BLOOD UREA NITROGEN 10 mg/dL 7-21 (BEAKER) (test umdr=464) CREATININE (BEAKER) (test 0.67 mg/dL 0.57-1.25 Specimen slightly jafi=263) hemolyzed GLUCOSE RANDOM (BEAKER) 115 mg/dL 70-105 (test kmfv=207) CALCIUM (BEAKER) (test 8.8 mg/dL 8.4-10.2 dhig=687) EGFR (BEAKER) (test 84 mL/min/1.73 sq m ESTIMATED GFR IS NOT zgmr=0026) ACCURATE CREATININE CLEARANCE IN PREDICTING GLOMERULAR FILTRATION RATE. ESTIMATED GFR IS NOT APPLICABLE FOR DIALYSIS PATIENTS. FastingLIPID [id number] 07:30:00 Test Item Value Reference Range Comments TRIGLYCERIDES (BEAKER) (test 57 mg/dL Specimen slightly hemolyzed eguz=756) CHOLESTEROL (BEAKER) (test 83 mg/dL Specimen slightly hemolyzed jcjx=167) HDL CHOLESTEROL (BEAKER) (test 37 mg/dL bnqt=553) LDL CHOLESTEROL CALCULATED 35 mg/dL (BEAKER) (test qhic=807) Triglyceride Reference Range: Low Risk <150 Borderline 150- 199 High Risk 200-499 Very High Risk >=500Cholesterol Reference Range: Low Risk <200 Borderline 200-239 High Risk > 240HDL Cholesterol Reference Range: Low Risk >=60 High Risk <40LDL Cholesterol Reference Range: Optimal <100 Near Optimal 100-129 Borderline 130-159 High 160-189 Very High >=190 FastingTROPONIN [id number] 07:28:00 Test Item Value Reference Range Comments TROPONIN I (BEAKER) (test brob=878) < ng/mL 0.00-0.03 Troponin I (TnI) levels [...] and persistent tachyarrhythmia.FastingCBC W/PLT COUNT & AUTO [id number] 05:43:00 Test Item Value Reference Range Comments WHITE BLOOD CELL COUNT (BEAKER) (test rdzn=569) 7.9 K/ L 3.5-10.5 RED BLOOD CELL COUNT (BEAKER) (test hwgw=983) 3.40 M/ L 3.93-5.22 HEMOGLOBIN (BEAKER) (test anes=292) 10.6 GM/DL 11.2-15.7 HEMATOCRIT (BEAKER) (test msqg=348) 32.1 % 34.1-44.9 MEAN CORPUSCULAR VOLUME (BEAKER) (test xvbg=982) 94.4 fL 79.4-94.8 MEAN CORPUSCULAR HEMOGLOBIN (BEAKER) (test 31.2 pg 25.6-32.2 gucm=453) MEAN CORPUSCULAR HEMOGLOBIN CONC (BEAKER) (test 33.0 GM/DL 32.2-35.5 mexl=909) RED CELL DISTRIBUTION WIDTH (BEAKER) (test 12.0 % 11.7-14.4 qtoq=817) PLATELET COUNT (BEAKER) (test ctpy=272) 168 K/CU MM 150-450 MEAN PLATELET VOLUME (BEAKER) (test kshs=143) 9.6 fL 9.4-12.3 NUCLEATED RED BLOOD CELLS (BEAKER) (test 0 /100 WBC 0-0 oknj=487) NEUTROPHILS RELATIVE PERCENT (BEAKER) (test 57 % hqnk=224) LYMPHOCYTES RELATIVE PERCENT (BEAKER) (test 28 % qdig=600) MONOCYTES RELATIVE PERCENT (BEAKER) (test 12 % enqm=186) EOSINOPHILS RELATIVE PERCENT (BEAKER) (test 2 % xfqs=947) BASOPHILS RELATIVE PERCENT (BEAKER) (test 0 % lvjm=558) NEUTROPHILS ABSOLUTE COUNT (BEAKER) (test 4.50 K/ L 1.56-6.13 tdej=803) LYMPHOCYTES ABSOLUTE COUNT (BEAKER) (test 2.23 K/ L 1.18-3.74 ehyw=623) MONOCYTES ABSOLUTE COUNT (BEAKER) (test 0.98 K/ L 0.24-0.36 liea=631) EOSINOPHILS ABSOLUTE COUNT (BEAKER) (test 0.15 K/ L 0.04-0.36 lkqs=367) BASOPHILS ABSOLUTE COUNT (BEAKER) (test 0.03 K/ L 0.01-0.08 tpsq=572) IMMATURE GRANULOCYTES-RELATIVE PERCENT (BEAKER) 0 % 0-1 (test itlk=6420) NV, ANGIOGRAM, [id number] 11:37:00Reason for exam:->TIAsFINAL REPORT November 22, 2017 [...] guidance and strict sterile technique a 4 [place] femoral sheath was inserted into the right common femoral artery. Through the sheath a 4 [place] vertebral catheter was then advanced over the [...] demonstrates a critical supraclinoid ICA stenosis of ggxgfddgmkmuz09%. There is delayed antegrade flow. The venous [...] MDReport Verified Date/Time: 11/22/2017 11:37:47 Reading Location: [facility] Y018 Neuro Angio Reading Room POCT-GLUCOSE [id number] 07:43:00 Test Item Value Reference Range Comments POC-GLUCOSE METER (BEAKER) 149 mg/dL 70-110 TESTED AT [facility] [address] [facility] (test spep=5739) [facility] [address] [id number] 06:46:00 Test Item Value Reference Range Comments MAGNESIUM (BEAKER) (test qbvt=746) 2.0 mg/dL 1.6-2.6 BASIC METABOLIC [id number] 06:46:00 Test Item Value Reference Range Comments SODIUM (BEAKER) (test 133 meq/L 136-145 ommb=656) POTASSIUM (BEAKER) (test 4.4 meq/L 3.5-5.1 ygcf=245) CHLORIDE (BEAKER) (test 99 meq/L 98-107 nkde=959) CO2 (BEAKER) (test 25 meq/L 22-29 kbsf=832) BLOOD UREA NITROGEN 11 mg/dL 7-21 (BEAKER) (test bsur=335) CREATININE (BEAKER) (test 0.65 mg/dL 0.57-1.25 yqcf=146) GLUCOSE RANDOM (BEAKER) 162 mg/dL 70-105 (test zveh=822) CALCIUM (BEAKER) (test 9.5 mg/dL 8.4-10.2 cgny=873) EGFR (BEAKER) (test 87 mL/min/1.73 sq m ESTIMATED GFR IS NOT qdzj=2680) ACCURATE CREATININE CLEARANCE IN PREDICTING GLOMERULAR FILTRATION RATE. ESTIMATED GFR IS NOT APPLICABLE FOR DIALYSIS PATIENTS. [id number] 06:33:00 Test Item Value Reference Range Comments PROTIME (BEAKER) (test fbqw=950) 15.5 seconds 11.7-14.7 INR (BEAKER) (test xecu=629) 1.2 <=5.9 PARTIAL THROMBOPLASTIN TIME (BEAKER) (test 35.9 seconds 22.5-36.0 gjgy=356) RECOMMENDED COUMADIN/WARFARIN INR THERAPY RANGESSTANDARD DOSE: 2.0 - 3.0 Includes: PROPHYLAXIS forvenous thrombosis, systemic embolization; TREATMENT for venous thrombosis and/or pulmonary embolus.HIGH RISK: Target INR is 2.5-3.5 for patients with mechanical heart valves.POCT-GLUCOSE [id number] 06:22:00 Test Item Value Reference Range Comments POC-GLUCOSE METER (BEAKER) 161 mg/dL 70-110 TESTED AT [address] (test htkr=9846) [place] [address] POCT-GLUCOSE [id number] 02:08:00 Test Item Value Reference Range Comments POC-GLUCOSE METER (BEAKER) 182 mg/dL 70-110 TESTED AT [address] (test vwwh=2281) [place] [address] POCT-GLUCOSE [id number] 19:30:00 Test Item Value Reference Range Comments POC-GLUCOSE METER (BEAKER) 146 mg/dL 70-110 TESTED AT [address] (test ilas=4022) [place] [address] CT, [place], [id number] 14:54:00Please include aortaFINAL REPORT CT angiogram of [...] the left ICA terminus. There is also ahww-ue-uvsmxkrz multifocal narrowing of the right carotid siphon. [...] MDReport Verified Date/Time: 11/21/2017 14:54:26 Reading Location: [facility] Radiology Reading Room H MEJIA [id number] 14:54:00FINAL REPORT CT angiogram of the upper [...] the left ICA terminus. There is also xvmc-ff-zqbhxuyc multifocal narrowing of the right carotid siphon. [...] Mcdaniels Verified Date/Time: 11/21/2017 14:54:26 Reading Location: [facility] Radiology Reading Room POCT-GLUCOSE [id number] 11:50:00 Test Item Value Reference Range Comments POC-GLUCOSE METER (BEAKER) 153 mg/dL 70-110 TESTED AT [place] [id number] [facility] (test tdda=6466) [facility] [address] POCT-GLUCOSE [id number] 08:08:00 Test Item Value Reference Range Comments POC-GLUCOSE METER (BEAKER) 125 mg/dL 70-110 TESTED AT [address] (test zalc=8475) [place] [address] [id number] 06:43:00 Test Item Value Reference Range Comments MAGNESIUM (BEAKER) (test atwu=054) 2.1 mg/dL 1.6-2.6 BASIC METABOLIC [id number] 06:43:00 Test Item Value Reference Range Comments SODIUM (BEAKER) (test 136 meq/L 136-145 klga=456) POTASSIUM (BEAKER) (test 4.0 meq/L 3.5-5.1 ptoq=849) CHLORIDE (BEAKER) (test 101 meq/L 98-107 cdqn=390) CO2 (BEAKER) (test 27 meq/L 22-29 hbws=876) BLOOD UREA NITROGEN 12 mg/dL 7-21 (BEAKER) (test vbhq=359) CREATININE (BEAKER) (test 0.68 mg/dL 0.57-1.25 oidk=943) GLUCOSE RANDOM (BEAKER) 122 mg/dL 70-105 (test sbzj=602) CALCIUM (BEAKER) (test 9.5 mg/dL 8.4-10.2 xcir=549) EGFR (BEAKER) (test 83 mL/min/1.73 sq m ESTIMATED GFR IS NOT gebd=0932) ACCURATE CREATININE CLEARANCE IN PREDICTING GLOMERULAR FILTRATION RATE. ESTIMATED GFR IS NOT APPLICABLE FOR DIALYSIS PATIENTS. TSH/FREE T4 IF [id number] 22:12:00 Test Item Value Reference Range Comments THYROID STIMULATING HORMONE (BEAKER) (test 4.66 uIU/mL 0.35-4.94 xbfm=365) [id number] 21:54:00 Test Item Value Reference Range Comments MAGNESIUM (BEAKER) (test fyyr=583) 2.0 mg/dL 1.6-2.6 BASIC METABOLIC [id number] 21:54:00 Test Item Value Reference Range Comments SODIUM (BEAKER) (test 134 meq/L 136-145 kjqy=181) POTASSIUM (BEAKER) (test 4.1 meq/L 3.5-5.1 ryjx=332) CHLORIDE (BEAKER) (test 101 meq/L 98-107 tfvm=815) CO2 (BEAKER) (test 24 meq/L 22-29 iizu=730) BLOOD UREA NITROGEN 11 mg/dL 7-21 (BEAKER) (test bydy=739) CREATININE (BEAKER) (test 0.65 mg/dL 0.57-1.25 mtmw=875) GLUCOSE RANDOM (BEAKER) 126 mg/dL 70-105 (test aiia=728) CALCIUM (BEAKER) (test 9.5 mg/dL 8.4-10.2 weuq=116) EGFR (BEAKER) (test 87 mL/min/1.73 sq m ESTIMATED GFR IS NOT nxmx=5476) ACCURATE CREATININE CLEARANCE IN PREDICTING GLOMERULAR FILTRATION RATE. ESTIMATED GFR IS NOT APPLICABLE FOR DIALYSIS PATIENTS. LIPID [id number] 21:54:00 Test Item Value Reference Range Comments TRIGLYCERIDES (BEAKER) (test osyb=296) 70 mg/dL CHOLESTEROL (BEAKER) (test eaqu=613) 101 mg/dL HDL CHOLESTEROL (BEAKER) (test opdc=891) 39 mg/dL LDL CHOLESTEROL CALCULATED (BEAKER) (test 48 mg/dL frwu=087) Triglyceride Reference Range: Low Risk <150 Borderline 150- 199 High Risk 200-499 Very High Risk >=500Cholesterol Reference Range: Low Risk <200 Borderline 200-239 High Risk > 240HDL Cholesterol Reference Range: Low Risk >=60 High Risk <40LDL Cholesterol Reference Range: Optimal <100 Near Optimal 100-129 Borderline 130-159 High 160-189 Very High >=190POCT-GLUCOSE [id number] 21:35:00 Test Item Value Reference Range Comments POC-GLUCOSE METER (BEAKER) 128 mg/dL 70-110 TESTED AT [address] (test ghpu=0956) [place] [address] POCT-GLUCOSE [id number] 17:55:00 Test Item Value Reference Range Comments POC-GLUCOSE METER (BEAKER) 113 mg/dL 70-110 TESTED AT [address] (test fnar=1354) [place] [address] POCT-GLUCOSE [id number] 12:32:00 Test Item Value Reference Range Comments POC-GLUCOSE METER (BEAKER) 120 mg/dL 70-110 TESTED AT [address] (test uduw=3128) [place] [address] MR, MRA, BRAIN, WITHOUT [id number] 11:33:00Reason for exam:-> Ischemic Stroke EvaluationFINAL REPORT MRA Head and Neck CLINICAL HISTORY: CVA TECHNIQUE: MRA of the head utilizing 3-D ryig-fv-bnpsum technique, with 3-D reconstructions. MRA of the [...] There is no other evidence for a [place] proximal branch vessel occlusion. There [...] Verified Date/Time: 11/20/2017 11:33:14 Reading Location : [facility] C013 Neuro Reading Room MR, MRA, NECK, WITHOUT IV [id number] 11:33: 00Reason for exam:->Ischemic Stroke EvaluationFINAL REPORT MRA Head and Neck CLINICAL HISTORY: CVA TECHNIQUE: MRA of the head utilizing 3-D juca-sq-fbuckb technique, with 3-D reconstructions. MRA of the neck utilizing 2-D and 3-D odbj-hv-ihswmg technique, with 3-D reconstructions. COMPARISON: None FINDINGS: [...] There is no other evidence for a [place] proximal branch vessel occlusion. There [...] Verified Date/Time: 11/20/2017 11 :33:14 Reading Location: [address] Neuro Reading Room MR, BRAIN, WITHOUT [id number] 11:05:00Reason for exam:->Ischemic Stroke EvaluationFINAL REPORT MRI [...] Koch Verified Date/Time: 11/20/2017 11:05:05 Reading Location: [address] Neuro Reading Room HEMOGLOBIN [id number] 09:08:00 Test Item Value Reference Range Comments HEMOGLOBIN A1C (BEAKER) (test rktk=686) 6.1 % 4.3-6.1 POCT-GLUCOSE [id number] 08:27:00 Test Item Value Reference Range Comments POC-GLUCOSE METER (BEAKER) 125 mg/dL 70-110 TESTED AT [address] (test qgsw=9061) [facility] [address] TSH/FREE T4 IF [id number] 07:47:00 Test Item Value Reference Range Comments THYROID STIMULATING HORMONE (BEAKER) (test 5.97 uIU/mL 0.35-4.94 pqmq=040) VITAMIN [id number] 07:44:00 Test Item Value Reference Range Comments VITAMIN B12 (BEAKER) (test nvye=915) 857 pg/mL 213-816 CBC W/PLT COUNT & AUTO [id number] 06:47:00 Test Item Value Reference Range Comments WHITE BLOOD CELL COUNT (BEAKER) (test fldf=902) 8.3 K/ L 3.5-10.5 RED BLOOD CELL COUNT (BEAKER) (test lcjq=583) 4.11 M/ L 3.93-5.22 HEMOGLOBIN (BEAKER) (test oqfj=620) 13.4 GM/DL 11.2-15.7 HEMATOCRIT (BEAKER) (test wdvi=619) 39.7 % 34.1-44.9 MEAN CORPUSCULAR VOLUME (BEAKER) (test fwaj=397) 96.6 fL 79.4-94.8 MEAN CORPUSCULAR HEMOGLOBIN (BEAKER) (test 32.6 pg 25.6-32.2 lkio=445) MEAN CORPUSCULAR HEMOGLOBIN CONC (BEAKER) (test 33.8 GM/DL 32.2-35.5 cdjp=754) RED CELL DISTRIBUTION WIDTH (BEAKER) (test 12.1 % 11.7-14.4 tpmy=537) PLATELET COUNT (BEAKER) (test qfhw=467) 209 K/CU MM 150-450 MEAN PLATELET VOLUME (BEAKER) (test ifef=639) 9.7 fL 9.4-12.3 NUCLEATED RED BLOOD CELLS (BEAKER) (test 0 /100 WBC 0-0 iyas=706) NEUTROPHILS RELATIVE PERCENT (BEAKER) (test 49 % dugd=454) LYMPHOCYTES RELATIVE PERCENT (BEAKER) (test 35 % ebzt=844) MONOCYTES RELATIVE PERCENT (BEAKER) (test 12 % ywws=809) EOSINOPHILS RELATIVE PERCENT (BEAKER) (test 4 % rzgj=095) BASOPHILS RELATIVE PERCENT (BEAKER) (test 1 % nexg=637) NEUTROPHILS ABSOLUTE COUNT (BEAKER) (test 4.02 K/ L 1.56-6.13 ljqh=030) LYMPHOCYTES ABSOLUTE COUNT (BEAKER) (test 2.89 K/ L 1.18-3.74 bvns=899) MONOCYTES ABSOLUTE COUNT (BEAKER) (test 0.95 K/ L 0.24-0.36 ubet=254) EOSINOPHILS ABSOLUTE COUNT (BEAKER) (test 0.35 K/ L 0.04-0.36 pmho=893) BASOPHILS ABSOLUTE COUNT (BEAKER) (test 0.04 K/ L 0.01-0.08 xwjz=812) IMMATURE GRANULOCYTES-RELATIVE PERCENT (BEAKER) 0 % 0-1 (test aksp=4922) POCT-GLUCOSE [id number] 22:09:00 Test Item Value Reference Range Comments POC-GLUCOSE METER (BEAKER) 130 mg/dL 70-110 TESTED AT [facility] [address] [facility] (test foaj=6463) [facility] [address]
--- OUTSIDE RECORDS SUMMARY | 2019-10-01 18:14 | XMS REPORT ---
:1935 Author Organization [employer] Care Team Providers Name Role Phone Rbitt, Na Provider Role Unavailable Allergies No Known [...] End Status Dosage System Date Date Levothyroxine [facility] 84571292348 125 MCG Orally Active 1 tablet Sodium Once a day in the morning on an empty stomach Cranberry [facility] [address] 425 MG Orally Active 1 capsule Concentrate with meals Plavix ND 71534440748 75 MG Orally Active 1 tablet Once a day Eliquis [facility] 50621859643 5 MG Orally Active 1 tablet twice a day Rosuvastatin [facility] 14218879611 40 Active TAKE 1 Calcium TABLET BY MOUTH DAILY Levetiracetam [facility] 38001359279 250 MG Orally Active 1 tablet every 12 hrs Tylenol Arthritis ND 0 Active not Pain defined Vitamin B-12 [facility] 394[address]34 Active not defined Estradiol [facility] 53728848699 0.1 MG/GM January Active as Vaginal Two , directed times a Week 2018 Irbesartan [facility] 68485437103 150 MG Orally Active 1 tablet Once a day Metformin HCl [facility] 24157281427 500 MG Orally Active 1 tablet Twice a day with meals Amlodipine [facility] 59946133187 10 MG Orally Active 1 tablet Besylate Once a day Carvedilol [facility] 44667949690 25 MG Orally Active as directed Omeprazole [facility] 13122604216 40 MG orally Active 1 EACH daily in AM ONCE A DAY Sertraline HCl [facility] 23249263450 25 MG Orally Active 1 tablet Once a day HydrALAZINE HCl [facility] 89630315989 100 MG Orally Active 1 tablet Three times a with food day HydrALAZINE HCl [facility] 18621297271 100 MG Orally December 05, Active as Three times a 2017 directed day Cyanocobalamin [facility] [address]-08 1000 MCG/15ML Active 15 ml Orally Once a day Omeprazole [facility] 88085184589 40 Active TAKE 1 CAPSULE BY MOUTH EVERY DAY Crestor [facility] 71535991895 40 MG Active 1 EACH ONCE A DAY Vitamin E [facility] 72431820650 400 UNIT Orally Active not defined Coreg [facility] 28186662057 25 MG Orally Active not defined Vitamin D3 [facility] 68794016481 1000 UNIT Active 1 capsule Orally Once a day Metformin HCl [facility] 65977425576 500 Active TAKE 1 TABLET BY MOUTH TWICE DAILY Multivitamin [facility] [address] Active not defined Probiotic [facility] 26205430142 - Orally Active not defined Magnesium [facility] 94780350045 500 MG Orally Active not defined Results No Known Results Summary Purpose [employer] Submission
--- OUTSIDE RECORDS SUMMARY | 2019-10-01 18:14 | XMS REPORT ---
[...] Ranitidine NDC 0 Active not defined Levothyroxine [facility] [address]-14 Active not defined Sodium Vitamin B-12 [facility] [address]-95143 Active not defined Metformin HCl [facility] 26749887305 500 MG Orally Active 1 tablet with Twice a day meals Sertraline HCl [facility] 05877821892 25 Orally Once Active 1 tablet a day Bactrim DS [facility] 31063338960 800-160 MG December Active 1 tablet Orally Twice a 2018 Vitamin E [facility] 6[address]29-[address]29 Active not defined Cranberry [facility] 227[address]21 Active not defined Concentrate Rosuvastatin [facility] 48354110445 40 Active TAKE 1 TABLET Calcium BY MOUTH DAILY Cyanocobalamin [facility] [address]-38 1000 MCG/15ML Active 15 ml Orally Once a day Tylenol Arthritis ND 0 Active not defined Pain Valsartan [facility] 01738493166 160 MG Orally Active 1 tablet Once a day Bactrim DS [facility] 01559359542 800-160 MG January Active 1 tablet Orally Twice a , 2017 Crestor [facility] 75596276810 40 MG Active 1 EACH ONCE A DAY Multivitamin [facility] 58680-[address]762 Active not defined Probiotic [facility] 53078-65552 Active not defined Plavix [facility] 89053486825 75 MG Orally Active 1 tablet Once a day HydrALAZINE HCl [facility] 68599533958 100 MG Orally December 05, Active as directed Three times a 2017 day Toviaz [facility] 54682822753 8 MG Orally Active 1 tablet Once a day Verapamil HCl [facility] [address]-65 Active not defined Omeprazole [facility] 46562068922 40 Active TAKE 1 CAPSULE BY MOUTH EVERY DAY Fluconazole ND 28049019167 150 MG Orally Sep 15, Active 1 tablet one tab a week 2019 today and may repeat one tab in 1 week if no improvement Estradiol [facility] 01932851149 0.1 MG/GM January Active as directed Vaginal Two 22, times a Week 2018 Metformin HCl [facility] 63388660753 500 Active TAKE 1 TABLET BY MOUTH TWICE DAILY Omeprazole [facility] 85145166436 40 MG orally Active 1 EACH ONCE A daily in AM DAY Eliquis [facility] 28222536735 5 MG Orally Active 1 tablet twice a day Sertraline HCl [facility] 58652310421 25 MG Orally Active 1 tablet Once a day Carvedilol ND 46653484174 25 MG Orally Active as directed Vitamin D3 [facility] 47999714546 1000 UNIT Active 1 capsule Orally Once a day Amlodipine [facility] 04938399116 10 MG Orally Active 1 tablet Besylate Once a day Coreg [facility] 83217640379 25 MG Orally Active not defined HydrALAZINE HCl [facility] 97024604808 100 MG Orally Active 1 tablet with Three times a food day Irbesartan [facility] 13380312416 150 MG Orally Active 1 tablet Once a day Results No Known Results Summary Purpose [employer]ClinicalWorks Submission
--- OUTSIDE RECORDS SUMMARY | 2019-10-01 18:15 | XMS REPORT ---
:1935 Author Organization [employer] Care Team Providers Name Role Phone Britt, Na Provider Role Unavailable Allergies No Known Allergies Problems Problem Type Condition Code Onset Dates Condition Status Problem Chronic a-fib I48.2 Active Problem Overactive [...] Problem Other speech disturbance R47.89 Active Medications No Known Medications Results No Known Results Summary Purpose [employer]ClinicalWorks Submission
--- OUTSIDE RECORDS SUMMARY | 2019-10-01 18:15 | XMS REPORT ---
[...] End Status Dosage System Date Date Amlodipine [facility] NAMED [facility] 67587259623 10 MG Orally Active 1 tablet Besylate Once a day Levetiracetam FOR[facility] NAMED [facility] 67741510900 250 MG Orally Active 1 tablet every 12 hrs Magnesium [facility] NAMED [facility] 20118836717 500 MG Orally Active not defined Sertraline HCl [facility] NAMED [facility] 87749089370 25 MG Orally Active 1 tablet Once a day Eliquis [facility] NAMED [facility] 97670026892 5 MG Orally Active 1 tablet twice a day Cranberry [facility] NAM[facility] 436[address]158 425 MG Orally Active 1 capsule Concentrate with meals Levothyroxine [facility] NAMED [facility] 53755085897 125 MCG Orally Active 1 tablet Sodium Once a day in the morning on an empty stomach Metformin HCl [facility] NAMED [facility] 89793785715 500 MG Orally Active 1 tablet Twice a day with meals Metformin HCl [facility] NAMED [facility] 32915248688 500 Active TAKE 1 TABLET BY MOUTH TWICE DAILY Tylenol Arthritis [facility]AM[facility] 0 Active not Pain defined Plavix [facility] NAMED [facility] 60053862833 75 MG Orally Active 1 tablet Once a day Crestor [facility] NAMED [facility] 57316378249 40 MG Active 1 EACH ONCE A DAY Vitamin B-12 [facility]AM[facility] 53897-92956 Active not defined Omeprazole [facility] NAMED [facility] 60138474699 40 Active TAKE 1 CAPSULE BY MOUTH EVERY DAY Coreg FOR[facility] NAMED [facility] 13306234716 25 MG Orally Active not defined Irbesartan [facility] NAMED [facility] 36395381353 150 MG Orally Active 1 tablet Once a day Multivitamin [facility] NAMED [facility] 0[address]-70653 Active not defined Estradiol [facility] NAMED [facility] 19879660567 0.1 MG/GM January Active as Vaginal Two 22, directed times a Week 2018 Rosuvastatin [facility] NAMED [facility] 94469369523 40 Active TAKE 1 Calcium TABLET BY MOUTH DAILY HydrALAZINE HCl [facility] NAMED [facility] 97261106499 100 MG Orally Active 1 tablet Three times a with food day Probiotic [facility] NAMED [facility] 51803451625 - Orally Active not defined Methenamine [facility] NAMED [facility] 15110580721 1 GM Orally Active 1 tablet Hippurate Twice a day Cyanocobalamin [facility] NAM[facility] [address]-98 1000 MCG/15ML Active 15 ml Orally Once a day Vitamin E [facility] NAMED [facility] 05804268987 400 UNIT Orally Active not defined Vitamin D3 [facility]AM[facility] 68146237908 1000 UNIT Active 1 capsule Orally Once a day Omeprazole [facility] NAMED [facility] 52501470633 40 MG orally Active 1 EACH daily in AM ONCE A DAY Carvedilol [facility] NAMED [facility] 83569681652 25 MG Orally Active as directed HydrALAZINE HCl [facility] NAMED [facility] 89150217168 100 MG Orally December 05, Active as Three times a 2018 directed day Results No Known Results Summary Purpose eClinicalWorks Submission
--- OUTSIDE RECORDS SUMMARY | 2019-10-01 18:15 | XMS REPORT ---
[...] End Status Dosage System Date Date Eliquis [facility] NAMED [facility] 45147905941 5 MG Orally Active 1 tablet twice a day Omeprazole [facility] NAMED [facility] 44890340704 40 MG orally Active 1 EACH daily in AM ONCE A DAY Levetiracetam [facility] NAMED [facility] 57731135228 250 MG Orally Active 1 tablet every 12 hrs Tylenol Arthritis [facility]AM[facility] 0 Active not Pain defined Multivitamin [facility] NAMED [facility] [address]3931-[address]93 Active not defined Rosuvastatin [facility] NAM[facility] 89021162736 40 Active TAKE 1 Calcium TABLET BY MOUTH DAILY Sertraline HCl [facility] NAM[facility] 71450376277 25 MG Orally Active 1 tablet Once a day Crestor [facility] NAM[facility] 71005841071 40 MG Active 1 EACH ONCE A DAY Methenamine [facility] NAMED [facility] 28454069877 1 GM Orally Aug 02September Active 1 tablet Hippurate Twice a day 2019 Levothyroxine [facility] NAMED [facility] 61086478953 125 MCG Orally Active 1 tablet Sodium Once a day in the morning on an empty stomach Cranberry [facility] NAMED [facility] 84867-74728 425 MG Orally Active 1 capsule Concentrate with meals Probiotic [facility] NAMED [facility] 74879371366 - Orally Active not defined HydrALAZINE HCl [facility] NAMED [facility] 91098879652 100 MG Orally Active 1 tablet Three times a with food day Coreg [facility] NAMED [facility] 61367635875 25 MG Orally Active not defined HydrALAZINE HCl [facility] NAMED [facility] 78254555821 100 MG Orally December 05, Active as Three times a 2017 directed day Vitamin D3 [facility] NAMED [facility] 53363887625 1000 UNIT Active 1 capsule Orally Once a day Metformin HCl [facility] NAMED [facility] 89233341035 500 MG Orally Active 1 tablet Twice a day with meals Metformin HCl [facility] NAMED [facility] 69955227561 500 Active TAKE 1 TABLET BY MOUTH TWICE DAILY Cyanocobalamin [facility] NAMED [facility] [address]-06 1000 MCG/15ML Active 15 ml Orally Once a day Carvedilol [facility] NAM[facility] 80524550352 25 MG Orally Active as directed Amlodipine [facility] NAMED [facility] 43512369529 10 MG Orally Active 1 tablet Besylate Once a day Omeprazole [facility] NAM[facility] 55891112965 40 Active TAKE 1 CAPSULE BY MOUTH EVERY DAY Vitamin B-12 [facility] NAM[facility] 679[address]-94989 Active not defined Irbesartan [facility] NAM[facility] 46219691436 150 MG Orally Active 1 tablet Once a day Vitamin E [facility] NAMED [facility] 81429357614 400 UNIT Active not Orally defined Estradiol [facility] NAM[facility] 07298222124 0.1 MG/GM January Active as Vaginal Two 22, directed times a Week 2018 Plavix [facility] NAM[facility] 96500927384 75 MG Orally Active 1 tablet Once a day Magnesium [facility] NAMED [facility] 23440269232 500 MG Orally Active not defined Results No Known Results Summary Purpose [employer]ClinicalWorks Submission
--- OUTSIDE RECORDS SUMMARY | 2019-10-01 18:15 | XMS REPORT ---
[...] Status Dosage System Date Date Vitamin B-12 [facility] [address] Active not defined Levothyroxine [facility] 49542856599 125 MCG Orally Active 1 tablet Sodium Once a day in the morning on an empty stomach Crestor [facility] 39355617801 40 MG Active 1 EACH ONCE A DAY Estradiol [facility] 85000628090 0.1 MG/GM January Active as Vaginal Two 22, directed times a Week 2018 Irbesartan [facility] 57814424263 150 MG Orally Active 1 tablet Once a day Cyanocobalamin [facility] [address]-47 1000 MCG/15ML Active 15 ml Orally Once a day Methenamine [facility] 15431471626 1 GM Orally Aug 02September Active 1 tablet Hippurate Twice a day 2019 Probiotic [facility] 06383964502 - Orally Active not defined Eliquis [facility] 83762987623 5 MG Orally Active 1 tablet twice a day Vitamin E [facility] 47747080728 400 UNIT Active not Orally defined HydrALAZINE HCl [facility] 26531049771 100 MG Orally Active 1 tablet Three times a with food day Coreg [facility] 84650579084 25 MG Orally Active not defined Tylenol Arthritis ND 0 Active not Pain defined Levetiracetam [facility] 06455636473 250 MG Orally Active 1 tablet every 12 hrs Cranberry [facility] 61003-74708 425 MG Orally Active 1 capsule Concentrate with meals Multivitamin [facility] 05862-01738 Active not defined HydrALAZINE HCl [facility] 53687623816 100 MG Orally December 05, Active as Three times a 2017 directed day Metformin HCl [facility] 24554796778 500 MG Orally Active 1 tablet Twice a day with meals Plavix [facility] 12983366000 75 MG Orally Active 1 tablet Once a day Omeprazole [facility] 32486106488 40 Active TAKE 1 CAPSULE BY MOUTH EVERY DAY Omeprazole [facility] 51690025687 40 MG orally Active 1 EACH daily in AM ONCE A DAY Sertraline HCl [facility] 70533338667 25 MG Orally Active 1 tablet Once a day Carvedilol ND 07052595214 25 MG Orally Active as directed Magnesium [facility] 82974082741 500 MG Orally Active not defined Vitamin D3 [facility] 90938097258 1000 UNIT Active 1 capsule Orally Once a day Bactrim [facility] 53466125025 400-80 MG Aug 02, Aug 07, Active 1 tablet Orally BID 2019 2019 Metformin HCl [facility] 39369950076 500 Active TAKE 1 TABLET BY MOUTH TWICE DAILY Rosuvastatin [facility] 90619262718 40 Active TAKE 1 Calcium TABLET BY MOUTH DAILY Amlodipine [facility] 02409155885 10 MG Orally Active 1 tablet Besylate Once a day Results No Known Results Summary Purpose eClinicalWorks Submission
--- OUTSIDE RECORDS SUMMARY | 2019-10-01 18:16 | XMS REPORT ---
[...] Condition Code Onset Dates Condition Status Assessment Mixed stress and urge urinary N39.46 Active incontinence Assessment Lower urinary tract symptoms (LUTS) R39.9 Active Assessment Urinary tract infection without N39.0 Active hematuria, site unspecified Assessment History of recurrent UTI (urinary Z87.440 Active tract infection) Assessment Urinary tract infection, site not N39.0 Active specified Problem Chronic a-fib I48.2 Active Problem Overactive [...] Recurrent urinary tract infection N39.0 Active Assessment Recurrent UTI N39.0 Active Problem 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 Active Problem Abnormal mammogram R92.8 Active Problem Type 2 diabetes E11.9 Active Problem History of TIA (transient ischemic Z86.73 Active attack) Problem Hospital discharge follow-up Z09 Active Problem Stenosis of left carotid artery I65.22 Active Problem Other speech disturbance R47.89 Active Medications Medication Code Code Instructions Start End Status Dosage System Date Date Methenamine [facility] 13212443153 1 GM Orally Active 1 tablet Hippurate Twice a day HydrALAZINE HCl [facility] 18537793416 100 MG Orally Active 1 tablet Three times a with food day Vitamin E [facility] 06064600352 400 UNIT Active not Orally defined Magnesium [facility] 44767583464 500 MG Orally Active not defined Carvedilol [facility] 39637141585 25 MG Orally Active as directed Plavix [facility] 51991665274 75 MG Orally Active 1 tablet Once a day Crestor [facility] 10613496553 40 MG Active 1 EACH ONCE A DAY Coreg [facility] 99531551202 25 MG Orally Active not defined Multivitamin [facility] 67151-62966 Active not defined Tylenol Arthritis ND 0 Active not Pain defined Trimethoprim [facility] 15375546023 100 MG Orally Sep 18September Active 1 tablet Once a day 2019 Cyanocobalamin [facility] [address]-45 1000 MCG/15ML Active 15 ml Orally Once a day Estradiol [facility] 65032377017 0.1 MG/GM January Active as Vaginal Two 22, directed times a Week 2018 Vitamin D3 [facility] 97774609358 1000 UNIT Active 1 capsule Orally Once a day Metformin HCl [facility] 50561092510 500 MG Orally Active 1 tablet Twice a day with meals Sertraline HCl [facility] 32982889695 25 MG Orally Active 1 tablet Once a day Vitamin B-12 [facility] 90988-03173 Active not defined Eliquis [facility] 73011512883 5 MG Orally Active 1 tablet twice a day Metformin HCl [facility] 08692024056 500 Active TAKE 1 TABLET BY MOUTH TWICE DAILY Rosuvastatin [facility] 90963063730 40 Active TAKE 1 Calcium TABLET BY MOUTH DAILY Probiotic [facility] 50880560149 - Orally Active not defined Omeprazole [facility] 66525149620 40 Active TAKE 1 CAPSULE BY MOUTH EVERY DAY Cranberry [facility] 28362-53678 425 MG Orally Active 1 capsule Concentrate with meals Irbesartan [facility] 08154184499 150 MG Orally Active 1 tablet Once a day Levothyroxine [facility] 83554963245 125 MCG Orally Active 1 tablet Sodium Once a day in the morning on an empty stomach Omeprazole [facility] 60672546253 40 MG orally Active 1 EACH daily in AM ONCE A DAY Amlodipine [facility] 05124469928 10 MG Orally Active 1 tablet Besylate Once a day Levetiracetam [facility] 56479731686 250 MG Orally Active 1 tablet every 12 hrs HydrALAZINE HCl [facility] 54794268535 100 MG Orally December 05, Active as Three times a 2017 Results No Known Results Summary Purpose eClinicalWorks Submission
[2019-10-01] MEDS ORDERED: NA CHLORIDE 0.9% 1,000 ML ONE (20:28)
[2019-10-01 20:31] LABS: Absolute Lymphocytes (CBC) 2.3 K/uL (0.7-4.9); Basophils % 0.4 % (0-1.3); Hematocrit 37.5 % (36.0-45.0); Lymphocytes % 32.6 % (15.3-44.8); MPV 7.7 fL (7.6-11.3)
[2019-10-01 20:50] LABS: Urine Blood NEGATIVE (NEG); Urine Glucose NEGATIVE (NEG); Urine Protein NEGATIVE (NEG); Urine pH 7.5 (5.0-7.0)
[2019-10-01 20:51] LABS: ALT/SGPT 22 U/L (12-78); AST/SGOT 16 U/L (15-37); Albumin 3.6 g/dL (3.4-5.0); Alkaline Phosphatase 91 U/L (45-117); BUN Blood Urea Nitrogen 8 mg/dL (7-18); Bicarbonate 27 mmol/L (21-32); Bilirubin Direct 0.2 mg/dL (0-0.2); Bilirubin Total 0.6 mg/dL (0.2-1.0); Glucose Level 135 mg/dL (74-106); Lipase 89 U/L (73-393); Protein, Total 7.4 g/dL (6.4-8.2); Sodium Level 134 mmol/L (136-145)
[2019-10-01 21:05] LABS: Urine Bacteria <20 /HPF (<20); Urine Culture Reflex Order NOT NEEDED; Urine RBC <5 /HPF (NONE SEEN)
--- NOTE | 2019-10-01 21:58 | EDPHYS ---
Physician Documentation [facility] Name: Radha Lara Age: 84 yrs Sex: Female : 1935 Arrival Date: 10/01/2019 Time: 18:12 Bed 6 Private MD: Elli Britt ED Physician Vega Gomez HPI: 10/01 06:46 This 84 yrs old Female presents to ER via Wheelchair with complaints of tw4 Congestion, Runny Nose. 06:46 The patient or guardian reports cough, that is intermittent. Onset: The tw4 symptoms/episode began/occurred 3 day(s) ago. Severity of symptoms: At their worst the symptoms were mild, in the emergency department the symptoms are unchanged. Modifying factors: The symptoms are alleviated by nothing, the symptoms are aggravated by nothing. Associated signs and symptoms: The patient has no apparent associated signs or symptoms. The patient has not experienced similar symptoms in the past. Historical: - Allergies: 09/30 18:25 Aspirin; ss 18:25 Clonidine; ss 18:25 Codeine; ss 18:25 Ibuprofen; ss 18:25 Iodinated Contrast Media - IV Dye; ss 18:25 Lisinopril; ss 18:25 Niacin; ss 18:25 Nitrofurantoin; ss 18:25 nitrous oxide; ss 18:25 vicoden; ss 18:25 Zoloft; ss - Home Meds: 20:38 amlodipine 5 mg tab 1 tab once daily for Hypertension [Active]; carvedilol 25 mg Oral tl2 tab 1 tab 2 times per day [Active]; cranberry Oral twice a day [Active]; Crestor 40 mg Oral tab once daily [Active]; Eliquis 5 mg Oral tab 2 times per day [Active]; furosemide 40 mg Oral tab as needed [Active]; hydralazine 100 mg Oral tab 3 times per day [Active]; irbesartan 150 mg Oral tab 1 tab once daily [Active]; levothyroxine 75 mcg tab 1 tab once daily [Active]; magnesium oxide 500 mg Oral cap [Active]; metformin 500 mg Oral Tb24 1 tab 2 times per day [Active]; Multiple Vitamins Oral tab daily [Active]; omeprazole 40 mg Oral cpDR 1 cap once daily [Active]; Plavix 75 mg Oral tab 1 tab once daily [Active]; Probiotic Oral [Active]; Vitamin B-12 2,000 mcg Oral TbER daily [Active]; Vitamin D3 1,000 unit Oral chew daily [Active]; vitamin E Oral once daily [Active]; - PMHx: 18:25 Hyperlipidemia; Sleep Apnea; PE; TIA; Kidney stones; Hypertension; Diabetes - NIDDM; ss CVA; Atrial Fib; ADD/ADHD; acid reflux; UTI; - PSHx: 18:25 Hysterectomy; Cholecystectomy; Tonsillectomy; ss - Immunization history:: Adult Immunizations up to date. - Social history:: Smoking status: Patient denies any tobacco usage or history of. ROS: 10/01 06:46 Eyes: Negative for injury, pain, redness, and discharge, Cardiovascular: Negative for tw4 chest pain, palpitations, and edema, Abdomen/GI: Negative for abdominal pain, nausea, vomiting, diarrhea, and constipation, Back: Negative for injury and pain, MS/Extremity: Negative for injury and deformity, Skin: Negative for injury, rash, and discoloration, Neuro: Negative for headache, weakness, numbness, tingling, and seizure. Constitutional: Negative for Respiratory: Positive for cough, Negative for dyspnea on exertion, hemoptysis, orthopnea, pleurisy, shortness of breath, wheezing. : Positive for urinary frequency, burning with urination. Exam: 06:46 Constitutional: This is a well developed, well nourished patient who is awake, alert, tw4 and in no acute distress. Head/Face: Normocephalic, atraumatic. Chest/axilla: Normal chest wall appearance and motion. Nontender with no deformity. No lesions are appreciated. Cardiovascular: Regular rate and rhythm with a normal S1 and S2. No gallops, murmurs, or rubs. Normal PMI, no JVD. No pulse deficits. Respiratory: Lungs have equal breath sounds bilaterally, clear to auscultation and percussion. No rales, rhonchi or wheezes noted. No increased work of breathing, no retractions or nasal flaring. Abdomen/GI: Soft, non-tender, with normal bowel sounds. No distension or tympany. No guarding or rebound. No evidence of tenderness throughout. Skin: Warm, dry with normal turgor. Normal color with no rashes, no lesions, and no evidence of cellulitis. MS/ Extremity: Pulses equal, no cyanosis. Neurovascular intact. Full, normal range of motion. Neuro: Awake and alert, GCS 15, oriented to person, place, time, and situation. Cranial nerves II-XII grossly intact. Motor strength 5/5 in all extremities. Sensory grossly intact. Cerebellar exam normal. Normal gait. Vital Signs: 09/30 18:22 BP 151 / 65; Pulse 87; Resp 17; Temp 98.2(TE); Pulse Ox 96% on R/A; Weight 58.06 kg; ss Height 5 ft. 2 in. (157.48 cm); Pain 2/10; 20:00 BP 147 / 64; Pulse 72; Resp 17; Pulse Ox 95% on R/A; tl2 21:41 BP 155 / 58; Pulse 69; Resp 16; Pulse Ox 97% on R/A; tl2 21:47 Temp 97.9(O); ar5 22:14 BP 154 / 59; Pulse 74; Resp 16; Pulse Ox 97% on R/A; tl2 18:22 Body Mass Index 23.41 (58.06 kg, 157.48 cm) ss MDM: 19:27 Patient medically screened. tw4 10/01 06:46 Differential Diagnosis: Obstructed Airway Bronchitis Influenza. Data reviewed: vital tw4 signs, nurses notes. Data reviewed: lab test result(s), CBC, electrolytes. Data interpreted: Pulse oximetry: Interpretation: normal. Counseling: I had a detailed discussion with the patient and/or guardian regarding: the historical points, exam findings, and any diagnostic results supporting the discharge/admit diagnosis. Special discussion: I discussed with the patient/guardian in detail that at this point there is no indication for admission to the hospital. It is understood, however, that if the symptoms persist or worsen the patient needs to return immediately for re-evaluation. 09/30 19:09 Order name: Flu; Complete Time: 21:21 tw4 09/30 21:21 Interpretation: Within normal limits. tw4 09/30 19:09 Order name: Strep; Complete Time: 21:21 tw4 09/30 19:38 Order name: Basic Metabolic Panel; Complete Time: 21:21 tw4 09/30 21:21 Interpretation: Normal except: NA 134; GLUC 135; CRE 0.52. tw4 09/30 19:38 Order name: CBC with Diff; Complete Time: 21:21 [facility] 09/30 21:22 Interpretation: Within normal limits. tw 09/30 19:38 Order name: Creatinine for Radiology; Complete Time: 21:21 [facility] 09/30 21:22 Interpretation: Within normal limits: CRE 0.55. [facility] 09/30 19:38 Order name: Hepatic Function; Complete Time: 21:21 [facility] 09/30 21:21 Interpretation: Normal except: GLOB 3.8; A/G 0.9. [facility] 09/30 19:38 Order name: Lipase; Complete Time: 21:21 [facility] 09/30 21:22 Interpretation: Within normal limits: LIP 89. [facility] 09/30 19:38 Order name: IV Saline Lock; Complete Time: 20:21 [facility] 09/30 19:38 Order name: Labs collected and sent; Complete Time: 20:21 [facility] 09/30 19:38 Order name: Urine Microscopic Only; Complete Time: 21:21 [facility] 09/30 21:22 Interpretation: Within normal limits. [facility] 09/30 20:18 Order name: Urine Dipstick--Ancillary (enter results); Complete Time: 21:21 [place] 09/30 21:21 Interpretation: Normal except: UPH 7.5. [facility] 09/30 20:31 Order name: Throat Culture [facility] 09/30 21:23 Order name: CXR XRAY [facility] 09/30 19:38 Order name: Urine Dipstick-Ancillary (obtain specimen); Complete Time: 19:42 tw4 Administered Medications: 09/30 20:28 Drug: NS 0.9% 1000 ml Route: IV; Rate: 1 bolus; Site: left forearm; tl2 22:25 Follow up: IV Status: Completed infusion; IV Intake: 1000ml tl2 Disposition: 10/01/19 21:58 Discharged to Home. Impression: Acute upper respiratory infection, unspecified, Dysuria. - Condition is Stable. - Discharge Instructions: Dysuria, Upper Respiratory Infection, Adult, Viral Respiratory Infection. - Prescriptions for Tessalon Perles 100 mg Oral Capsule - take 1 capsule by ORAL route every 8 hours As needed; 15 capsule. - Medication Reconciliation Form, Thank You Letter, Antibiotic Education, Prescription Opioid Use form. - Follow up: Elli Britt MD; When: Upon discharge from the Emergency Department; Reason: Recheck today's complaints, Continuance of care, Re-evaluation by your physician. - Problem is new. - Symptoms have improved. Signatures: Dispatcher [employer] Abigail Wood RN RN Nica Lombardi RN RN tl2 Vega Gomez MD MD tw4 Corrections: (The following items were deleted from the chart) 22:29 21:58 10/01/2019 21:58 Discharged to Home. Impression: Acute upper respiratory tl2 infection, unspecified; Dysuria. Condition is Stable. Forms are Medication Reconciliation Form, Thank You Letter, Antibiotic Education, Prescription Opioid Use. Follow up: Elli Britt; When: Upon discharge from the Emergency Department; Reason: Recheck today's complaints, Continuance of care, Re-evaluation by your physician. Problem is new. Symptoms have improved. tw4
--- NOTE | 2019-10-01 21:58 | ER ---
Nurse's Notes [facility] Name: Radha Lara Age: 84 yrs Sex: Female : 1935 Arrival Date: 10/01/2019 Time: 18:12 Bed 6 Private MD: Elli Britt Diagnosis: Acute upper respiratory infection, unspecified;Dysuria Presentation: 09/30 18:22 Chief complaint: Patient states: burning with urination x 2-3 days and now congestion/ ss runny nose that began yesterday. Coronavirus screen: The patient has NOT traveled to a country currently being monitored by the CDC within the last 14 days. Proceed with normal triage procedures. Ebola Screen: Patient denies exposure to infectious person. Patient denies travel to an Ebola-affected area in the 21 days before illness onset. Resp Distress? No respiratory distress is noted at this time. Initial Sepsis Screen: Does the patient meet any 2 criteria? No. Patient's initial sepsis screen is negative. Does the patient have a suspected source of infection? No. Patient's initial sepsis screen is negative. Risk Assessment: Do you want to hurt yourself or someone else? Patient reports no desire to harm self or others. 18:22 Method Of Arrival: Wheelchair ss 18:22 Acuity: YOLANDE 3 ss 19:00 Onset of symptoms was September 29, 2019. tl2 Historical: - Allergies: 18:25 Aspirin; ss 18:25 Clonidine; ss 18:25 Codeine; ss 18:25 Ibuprofen; ss 18:25 Iodinated Contrast Media - IV Dye; ss 18:25 Lisinopril; ss 18:25 Niacin; ss 18:25 Nitrofurantoin; ss 18:25 nitrous oxide; ss 18:25 vicoden; ss 18:25 Zoloft; ss - Home Meds: 20:38 amlodipine 5 mg tab 1 tab once daily for Hypertension [Active]; carvedilol 25 mg Oral tl2 tab 1 tab 2 times per day [Active]; cranberry Oral twice a day [Active]; Crestor 40 mg Oral tab once daily [Active]; Eliquis 5 mg Oral tab 2 times per day [Active]; furosemide 40 mg Oral tab as needed [Active]; hydralazine 100 mg Oral tab 3 times per day [Active]; irbesartan 150 mg Oral tab 1 tab once daily [Active]; levothyroxine 75 mcg tab 1 tab once daily [Active]; magnesium oxide 500 mg Oral cap [Active]; metformin 500 mg Oral Tb24 1 tab 2 times per day [Active]; Multiple Vitamins Oral tab daily [Active]; omeprazole 40 mg Oral cpDR 1 cap once daily [Active]; Plavix 75 mg Oral tab 1 tab once daily [Active]; Probiotic Oral [Active]; Vitamin B-12 2,000 mcg Oral TbER daily [Active]; Vitamin D3 1,000 unit Oral chew daily [Active]; vitamin E Oral once daily [Active]; - PMHx: 18:25 Hyperlipidemia; Sleep Apnea; PE; TIA; Kidney stones; Hypertension; Diabetes - NIDDM; ss CVA; Atrial Fib; ADD/ADHD; acid reflux; UTI; - PSHx: 18:25 Hysterectomy; Cholecystectomy; Tonsillectomy; ss - Immunization history:: Adult Immunizations up to date. - Social history:: Smoking status: Patient denies any tobacco usage or history of. Screenin:30 Abuse screen: Denies threats or abuse. Nutritional screening: No deficits noted. tl2 Tuberculosis screening: No symptoms or risk factors identified. Fall Risk IV access (20 points). Gait- Weak (10 pts.). Assessment: 19:30 General: Appears in no apparent distress. uncomfortable, Behavior is calm, cooperative, tl2 drowsy, Reports feeling ill for 12-24 hours. Pain: Complains of pain in right mid back. Neuro: Level of Consciousness is awake, alert, obeys commands, Oriented to person, place, time, situation. Cardiovascular: Denies chest pain, Patient's skin is warm and dry. Respiratory: Airway is patent Respiratory effort is even, unlabored, Respiratory pattern is regular, symmetrical, Breath sounds are clear bilaterally. GI: Reports diarrhea, nausea. : Reports urinary frequency, "UTI symptoms". Derm: Skin is pink, warm \\T\\ dry. 21:41 Reassessment: Patient appears in no apparent distress at this time. Patient and/or tl2 family updated on plan of care and expected duration. Pain level reassessed. Patient is alert, oriented x 3, equal unlabored respirations, skin warm/dry/pink. Assisted pt to restroom, was able to use independently. Awaiting further orders. 22:23 Reassessment: Patient appears in no apparent distress at this time. Patient and/or tl2 family updated on plan of care and expected duration. Pain level reassessed. Patient is alert, oriented x 3, equal unlabored respirations, skin warm/dry/pink. pt and family verbalized understanding of discharge instructions, need for follow up and prescription usage Patient states feeling better. Vital Signs: 18:22 BP 151 / 65; Pulse 87; Resp 17; Temp 98.2(TE); Pulse Ox 96% on R/A; Weight 58.06 kg; ss Height 5 ft. 2 in. (157.48 cm); Pain 2/10; 20:00 BP 147 / 64; Pulse 72; Resp 17; Pulse Ox 95% on R/A; tl2 21:41 BP 155 / 58; Pulse 69; Resp 16; Pulse Ox 97% on R/A; tl2 21:47 Temp 97.9(O); ar5 22:14 BP 154 / 59; Pulse 74; Resp 16; Pulse Ox 97% on R/A; tl2 18:22 Body Mass Index 23.41 (58.06 kg, 157.48 cm) ED Course: 18:12 Patient arrived in ED. rg4 18:13 Elli Britt MD is Private Physician. rg4 18:24 Triage completed. ss 18:25 Arm band placed on left wrist. ss 19:15 Vega Gomez MD is Attending Physician. tw4 19:30 Patient has correct armband on for positive identification. Placed in gown. Bed in low tl2 position. Call light in reach. Side rails up X2. Adult w/ patient. 19:50 Nica Lombardi RN is Primary Nurse. tl2 19:50 Strep Sent. tl2 19:50 Flu Sent. tl2 20:19 Initial lab(s) drawn, by ar, sent to lab. Inserted saline lock: 22 gauge in left sg forearm, using aseptic technique. Blood collected. 21:42 CXR XRAY In Process Unspecified. EDMS 21:57 Elli Britt MD is Referral Physician. tw4 22:23 No provider procedures requiring assistance completed. IV discontinued, intact, tl2 bleeding controlled, No redness/swelling at site. Pressure dressing applied. Administered Medications: 20:28 Drug: NS 0.9% 1000 ml Route: IV; Rate: 1 bolus; Site: left forearm; tl2 22:25 Follow up: IV Status: Completed infusion; IV Intake: 1000ml tl2 Intake: 22:25 IV: 1000ml; Total: 1000ml. tl2 Outcome: 21:58 Discharge ordered by . [email or web address] 22:23 Discharged to home via wheelchair, with family. tl2 22:23 Condition: stable 22:23 Discharge instructions given to patient, family, Instructed on discharge instructions, follow up and referral plans. medication usage, Demonstrated understanding of instructions, follow-up care, medications, Prescriptions given X 1. 22:29 Patient left the ED. tl2 Signatures: Dispatcher [employer] EDMS Fran Lee RN RN Abigail Ayala RN RN ss Knox, Taylor, RN RN tl2 [email or web address] Vega Gomez MD MD tw4 Christine Mishra ar5 Corrections: (The following items were deleted from the chart) 22:25 19:00 Onset of symptoms was September 23, 2019 tl2 tl2
[2019-10-01 22:42] VITALS: O2SAT 97
[2019-10-01 22:43] VITALS: TEMP 97.9
[2019-10-01 22:45] VITALS: BP 154/59
--- NOTE | 2019-10-02 07:49 | RAD REPORT ---
EXAM DESCRIPTION: Diane Single View10/01/2019 9:42 pm CLINICAL HISTORY: Fever COMPARISON: August 2021 FINDINGS: The lungs appear clear of acute infiltrate. The heart is mildly enlarged. Postsurgical changes involve the chest. IMPRESSION: No acute abnormalities displayed
== END 2019-10-01 22:29 | disposition home or self-care (01) ==
LOC: ER 18:11
DX: J06.9 Acute upper respiratory infection, unspecified (principal); R30.0 Dysuria; Z88.6 Allergy status to analgesic agent; Z88.8 Allergy status to other drugs, medicaments and biological substances; Z91.09 Other allergy status, other than to drugs and biological substances; I10 Essential (primary) hypertension; E11.9 Type 2 diabetes mellitus without complications; E78.5 Hyperlipidemia, unspecified; Z86.73 Personal history of transient ischemic attack (TIA), and cerebral infarction without residual deficits; K21.9 Gastro-esophageal reflux disease without esophagitis
CPT/HCPCS: 96361; 87070; 85025; 80048; 36415; 80076; 87081; 83690; 87804 ×2; 71045; 96360; 99284; J7030; 81003; 81015

== ENCOUNTER 2019-10-14 08:35 | Emergency (ER) | payer OTHER ==
--- OUTSIDE RECORDS SUMMARY | 2019-10-14 08:38 | XMS REPORT ---
:1935 Author Organization [facility] Address [facility] [place] [address] Care Team Providers Name Role Phone LARISSA [...] for FINAL REPORT PATIENT ID: BRAIN exam:->stroke [id number] CLINICAL HISTORY: TIA TECHNIQUE: Initially, noncontrast head [...] intact. There is no evidence for a [place] of [place] proximal branch vessel occlusion. Mild [...] artery stenosis, unchanged. No evidence for a [place] of [place] proximal branch vessel occlusion. Signed: Alexa Koch MDReport Verified Date/Time: 05/01/2019 10:58:29 Reading Location: [facility] C013V Neuro Reading Room , CAROTID, 2019-05-01 10:58:00 Reason for exam:->eval FINAL REPORT PATIENT ID: ANGIO for TIA [id number] CLINICAL HISTORY: TIA TECHNIQUE: Initially, noncontrast head [...] intact. There is no evidence for a [place] of [place] proximal branch vessel occlusion. Mild [...] artery stenosis, unchanged. No evidence for a [place] of [place] proximal branch vessel occlusion. Signed: Alexa Koch MDReport Verified Date/Time: 05/01/2019 10:58:29 Reading Location: [facility] C013V Neuro Reading Room C METABOLIC PANEL 2019-05-01 06:04:00 Test Item Value Reference Range Comments SODIUM (BEAKER) (test 133 meq/L 136-145 fgkk=741) POTASSIUM (BEAKER) (test 4.3 meq/L 3.5-5.1 nhpn=022) CHLORIDE (BEAKER) (test 104 meq/L 98-107 myqu=961) CO2 (BEAKER) (test lmrz=113) 24 meq/L 22-29 BLOOD UREA NITROGEN (BEAKER) 8 mg/dL 7-21 (test gjtu=954) CREATININE (BEAKER) (test 0.63 mg/dL 0.57-1.25 agmi=753) GLUCOSE RANDOM (BEAKER) 105 mg/dL 70-105 (test toyc=168) CALCIUM (BEAKER) (test 8.8 mg/dL 8.4-10.2 racd=873) EGFR (BEAKER) (test 90 mL/min/1.73 sq m ESTIMATED GFR IS NOT ayit=6443) ACCURATE CREATININE CLEARANCE IN PREDICTING GLOMERULAR FILTRATION RATE. ESTIMATED GFR IS NOT APPLICABLE FOR DIALYSIS PATIENTS. CBC (HEMOGRAM ONLY)2019-05-01 04:59:00 Test Item Value Reference Range Comments WHITE BLOOD CELL COUNT (BEAKER) (test szmh=965) 7.4 K/ L 3.5-10.5 RED BLOOD CELL COUNT (BEAKER) (test lfvp=813) 3.56 M/ L 3.93-5.22 HEMOGLOBIN (BEAKER) (test lkkp=921) 11.3 GM/DL 11.2-15.7 HEMATOCRIT (BEAKER) (test mjmm=244) 33.9 % 34.1-44.9 MEAN CORPUSCULAR VOLUME (BEAKER) (test rikw=964) 95.2 fL 79.4-94.8 MEAN CORPUSCULAR HEMOGLOBIN (BEAKER) (test 31.7 pg 25.6-32.2 jtsn=162) MEAN CORPUSCULAR HEMOGLOBIN CONC (BEAKER) (test 33.3 GM/DL 32.2-35.5 xulr=781) RED CELL DISTRIBUTION WIDTH (BEAKER) (test 12.0 % 11.7-14.4 tbux=862) PLATELET COUNT (BEAKER) (test iyrz=412) 170 K/CU MM 150-450 MEAN PLATELET VOLUME (BEAKER) (test pywr=647) 9.6 fL 9.4-12.3 NUCLEATED RED BLOOD CELLS (BEAKER) (test 0 /100 WBC 0-0 glve=359) TROPONIN [id number] 20:18:00 Test Item Value Reference Range Comments TROPONIN I (BEAKER) (test vshz=484) < ng/mL 0.00-0.03 Troponin I (TnI) levels [...] neurological disease, and persistent tachyarrhythmia.MR, BRAIN, WITHOUT [id number] 19 :07:00Reason for exam:->Ischemic Stroke EvaluationFINAL REPORT [...] Verified Date/ Time: 04/30/2019 19:07:03 Reading Location: [address] Neuro Reading Room HEMOGLOBIN [id number] 10:33:00 Test Item Value Reference Range Comments HEMOGLOBIN A1C (BEAKER) (test eljt=559) 6.6 % 4.3-6.1 FastingVITAMIN [id number] 09:00:00 Test Item Value Reference Range Comments VITAMIN B12 (BEAKER) (test wqac=618) 654 pg/mL 213-816 Add on please to morning labsAdd on to morning labsTSH/FREE T4 IF [id number] 09:00:00 Test Item Value Reference Range Comments THYROID STIMULATING HORMONE (BEAKER) (test 0.69 uIU/mL 0.35-4.94 nopp=679) Add on please to morning labsAdd on to morning labsBASIC METABOLIC [id number] 07:30:00 Test Item Value Reference Range Comments SODIUM (BEAKER) (test 131 meq/L 136-145 znyt=798) POTASSIUM (BEAKER) (test 4.2 meq/L 3.5-5.1 Specimen slightly ebcn=046) hemolyzed CHLORIDE (BEAKER) (test 99 meq/L 98-107 xtyj=443) CO2 (BEAKER) (test 23 meq/L 22-29 kukt=036) BLOOD UREA NITROGEN 10 mg/dL 7-21 (BEAKER) (test jklb=303) CREATININE (BEAKER) (test 0.67 mg/dL 0.57-1.25 Specimen slightly raul=302) hemolyzed GLUCOSE RANDOM (BEAKER) 115 mg/dL 70-105 (test guft=451) CALCIUM (BEAKER) (test 8.8 mg/dL 8.4-10.2 gvrs=699) EGFR (BEAKER) (test 84 mL/min/1.73 sq m ESTIMATED GFR IS NOT xnvc=5936) ACCURATE CREATININE CLEARANCE IN PREDICTING GLOMERULAR FILTRATION RATE. ESTIMATED GFR IS NOT APPLICABLE FOR DIALYSIS PATIENTS. FastingLIPID [id number] 07:30:00 Test Item Value Reference Range Comments TRIGLYCERIDES (BEAKER) (test 57 mg/dL Specimen slightly hemolyzed iobv=870) CHOLESTEROL (BEAKER) (test 83 mg/dL Specimen slightly hemolyzed qegs=066) HDL CHOLESTEROL (BEAKER) (test 37 mg/dL nsjg=123) LDL CHOLESTEROL CALCULATED 35 mg/dL (BEAKER) (test jwae=345) Triglyceride Reference Range: Low Risk <150 Borderline 150- 199 High Risk 200-499 Very High Risk >=500Cholesterol Reference Range: Low Risk <200 Borderline 200-239 High Risk > 240HDL Cholesterol Reference Range: Low Risk >=60 High Risk <40LDL Cholesterol Reference Range: Optimal <100 Near Optimal 100-129 Borderline 130-159 High 160-189 Very High >=190 FastingTROPONIN [id number] 07:28:00 Test Item Value Reference Range Comments TROPONIN I (BEAKER) (test avyv=582) < ng/mL 0.00-0.03 Troponin I (TnI) levels [...] and persistent tachyarrhythmia.FastingCBC W/PLT COUNT & AUTO [id number] 05:43:00 Test Item Value Reference Range Comments WHITE BLOOD CELL COUNT (BEAKER) (test zfud=495) 7.9 K/ L 3.5-10.5 RED BLOOD CELL COUNT (BEAKER) (test elly=979) 3.40 M/ L 3.93-5.22 HEMOGLOBIN (BEAKER) (test jujw=257) 10.6 GM/DL 11.2-15.7 HEMATOCRIT (BEAKER) (test jghv=682) 32.1 % 34.1-44.9 MEAN CORPUSCULAR VOLUME (BEAKER) (test lsry=812) 94.4 fL 79.4-94.8 MEAN CORPUSCULAR HEMOGLOBIN (BEAKER) (test 31.2 pg 25.6-32.2 gabb=498) MEAN CORPUSCULAR HEMOGLOBIN CONC (BEAKER) (test 33.0 GM/DL 32.2-35.5 yvej=213) RED CELL DISTRIBUTION WIDTH (BEAKER) (test 12.0 % 11.7-14.4 yaph=899) PLATELET COUNT (BEAKER) (test jkgq=061) 168 K/CU MM 150-450 MEAN PLATELET VOLUME (BEAKER) (test gjkl=603) 9.6 fL 9.4-12.3 NUCLEATED RED BLOOD CELLS (BEAKER) (test 0 /100 WBC 0-0 xjcq=834) NEUTROPHILS RELATIVE PERCENT (BEAKER) (test 57 % vxsd=582) LYMPHOCYTES RELATIVE PERCENT (BEAKER) (test 28 % nwcl=212) MONOCYTES RELATIVE PERCENT (BEAKER) (test 12 % avwp=614) EOSINOPHILS RELATIVE PERCENT (BEAKER) (test 2 % viff=768) BASOPHILS RELATIVE PERCENT (BEAKER) (test 0 % uvoa=291) NEUTROPHILS ABSOLUTE COUNT (BEAKER) (test 4.50 K/ L 1.56-6.13 zszg=987) LYMPHOCYTES ABSOLUTE COUNT (BEAKER) (test 2.23 K/ L 1.18-3.74 xcuv=466) MONOCYTES ABSOLUTE COUNT (BEAKER) (test 0.98 K/ L 0.24-0.36 pqkf=937) EOSINOPHILS ABSOLUTE COUNT (BEAKER) (test 0.15 K/ L 0.04-0.36 zudw=788) BASOPHILS ABSOLUTE COUNT (BEAKER) (test 0.03 K/ L 0.01-0.08 ihdi=822) IMMATURE GRANULOCYTES-RELATIVE PERCENT (BEAKER) 0 % 0-1 (test mmzl=2005) NV, ANGIOGRAM, [id number] 11:37:00Reason for exam:->TIAsFINAL REPORT November 22, 2017 [...] guidance and strict sterile technique a 4 [place] femoral sheath was inserted into the right common femoral artery. Through the sheath a 4 [place] vertebral catheter was then advanced over the [...] demonstrates a critical supraclinoid ICA stenosis of fyyoewpjqvbjv16%. There is delayed antegrade flow. The venous [...] MDReport Verified Date/Time: 11/22/2017 11:37:47 Reading Location: [facility] Y018 Neuro Angio Reading Room POCT-GLUCOSE [id number] 07:43:00 Test Item Value Reference Range Comments POC-GLUCOSE METER (BEAKER) 149 mg/dL 70-[address] [facility] [address] [facility] (test upbx=0809) [facility] [address] [id number] 06:46:00 Test Item Value Reference Range Comments MAGNESIUM (BEAKER) (test iwjy=693) 2.0 mg/dL 1.6-2.6 BASIC METABOLIC [id number] 06:46:00 Test Item Value Reference Range Comments SODIUM (BEAKER) (test 133 meq/L 136-145 xcgu=832) POTASSIUM (BEAKER) (test 4.4 meq/L 3.5-5.1 qlif=522) CHLORIDE (BEAKER) (test 99 meq/L 98-107 ruqm=868) CO2 (BEAKER) (test 25 meq/L 22-29 ymzi=477) BLOOD UREA NITROGEN 11 mg/dL 7-21 (BEAKER) (test qrea=869) CREATININE (BEAKER) (test 0.65 mg/dL 0.57-1.25 rsfr=233) GLUCOSE RANDOM (BEAKER) 162 mg/dL 70-105 (test lpxv=303) CALCIUM (BEAKER) (test 9.5 mg/dL 8.4-10.2 npvn=355) EGFR (BEAKER) (test 87 mL/min/1.73 sq m ESTIMATED GFR IS NOT xmtz=4411) ACCURATE CREATININE CLEARANCE IN PREDICTING GLOMERULAR FILTRATION RATE. ESTIMATED GFR IS NOT APPLICABLE FOR DIALYSIS PATIENTS. [id number] 06:33:00 Test Item Value Reference Range Comments PROTIME (BEAKER) (test dymr=705) 15.5 seconds 11.7-14.7 INR (BEAKER) (test bnry=655) 1.2 <=5.9 PARTIAL THROMBOPLASTIN TIME (BEAKER) (test 35.9 seconds 22.5-36.0 bquo=030) RECOMMENDED COUMADIN/WARFARIN INR THERAPY RANGESSTANDARD DOSE: 2.0 - 3.0 Includes: PROPHYLAXIS forvenous thrombosis, systemic embolization; TREATMENT for venous thrombosis and/or pulmonary embolus.HIGH RISK: Target INR is 2.5-3.5 for patients with mechanical heart valves.POCT-GLUCOSE [id number] 06:22:00 Test Item Value Reference Range Comments POC-GLUCOSE METER (BEAKER) 161 mg/dL 70-110 TESTED AT [address] (test bgps=0626) [place] [address] POCT-GLUCOSE [id number] 02:08:00 Test Item Value Reference Range Comments POC-GLUCOSE METER (BEAKER) 182 mg/dL 70-110 TESTED AT [address] (test mcvb=1651) [place] [address] POCT-GLUCOSE [id number] 19:30:00 Test Item Value Reference Range Comments POC-GLUCOSE METER (BEAKER) 146 mg/dL 70-110 TESTED AT [address] (test qxji=1416) [place] [address] CT, CAROTID, [id number] 14:54:00Please include aortaFINAL REPORT CT angiogram of [...] the left ICA terminus. There is also wajp-xg-jfowynab multifocal narrowing of the right carotid siphon. [...] MDReport Verified Date/Time: 11/21/2017 14:54:26 Reading Location: [facility] Radiology Reading Room H MEJIA [id number] 14:54:00FINAL REPORT CT angiogram of the upper [...] the left ICA terminus. There is also xmfh-cx-sgjlhkza multifocal narrowing of the right carotid siphon. [...] Mcdaniels Verified Date/Time: 11/21/2017 14:54:26 Reading Location: [facility] Radiology Reading Room POCT-GLUCOSE [id number] 11:50:00 Test Item Value Reference Range Comments POC-GLUCOSE METER (BEAKER) 153 mg/dL 70-110 TESTED AT [place] [id number] [facility] (test mvti=9258) [facility] [address] POCT-GLUCOSE [id number] 08:08:00 Test Item Value Reference Range Comments POC-GLUCOSE METER (BEAKER) 125 mg/dL 70-110 TESTED AT [address] (test fcqn=7524) [place] [address] [id number] 06:43:00 Test Item Value Reference Range Comments MAGNESIUM (BEAKER) (test phfq=956) 2.1 mg/dL 1.6-2.6 BASIC METABOLIC [id number] 06:43:00 Test Item Value Reference Range Comments SODIUM (BEAKER) (test 136 meq/L 136-145 czcy=453) POTASSIUM (BEAKER) (test 4.0 meq/L 3.5-5.1 oxuz=887) CHLORIDE (BEAKER) (test 101 meq/L 98-107 tzvm=337) CO2 (BEAKER) (test 27 meq/L 22-29 ajmh=546) BLOOD UREA NITROGEN 12 mg/dL 7-21 (BEAKER) (test oybw=117) CREATININE (BEAKER) (test 0.68 mg/dL 0.57-1.25 tind=635) GLUCOSE RANDOM (BEAKER) 122 mg/dL 70-105 (test jwvz=349) CALCIUM (BEAKER) (test 9.5 mg/dL 8.4-10.2 rims=225) EGFR (BEAKER) (test 83 mL/min/1.73 sq m ESTIMATED GFR IS NOT qqjz=6550) ACCURATE CREATININE CLEARANCE IN PREDICTING GLOMERULAR FILTRATION RATE. ESTIMATED GFR IS NOT APPLICABLE FOR DIALYSIS PATIENTS. TSH/FREE T4 IF [id number] 22:12:00 Test Item Value Reference Range Comments THYROID STIMULATING HORMONE (BEAKER) (test 4.66 uIU/mL 0.35-4.94 qdeq=316) [id number] 21:54:00 Test Item Value Reference Range Comments MAGNESIUM (BEAKER) (test hlrd=969) 2.0 mg/dL 1.6-2.6 BASIC METABOLIC [id number] 21:54:00 Test Item Value Reference Range Comments SODIUM (BEAKER) (test 134 meq/L 136-145 pese=022) POTASSIUM (BEAKER) (test 4.1 meq/L 3.5-5.1 xzsm=461) CHLORIDE (BEAKER) (test 101 meq/L 98-107 vcfl=854) CO2 (BEAKER) (test 24 meq/L 22-29 tghj=570) BLOOD UREA NITROGEN 11 mg/dL 7-21 (BEAKER) (test uunh=765) CREATININE (BEAKER) (test 0.65 mg/dL 0.57-1.25 nogz=841) GLUCOSE RANDOM (BEAKER) 126 mg/dL 70-105 (test qumb=417) CALCIUM (BEAKER) (test 9.5 mg/dL 8.4-10.2 ihrc=978) EGFR (BEAKER) (test 87 mL/min/1.73 sq m ESTIMATED GFR IS NOT tcho=2440) ACCURATE CREATININE CLEARANCE IN PREDICTING GLOMERULAR FILTRATION RATE. ESTIMATED GFR IS NOT APPLICABLE FOR DIALYSIS PATIENTS. LIPID [id number] 21:54:00 Test Item Value Reference Range Comments TRIGLYCERIDES (BEAKER) (test qeai=236) 70 mg/dL CHOLESTEROL (BEAKER) (test iqti=006) 101 mg/dL HDL CHOLESTEROL (BEAKER) (test fnij=698) 39 mg/dL LDL CHOLESTEROL CALCULATED (BEAKER) (test 48 mg/dL lhod=548) Triglyceride Reference Range: Low Risk <150 Borderline 150- 199 High Risk 200-499 Very High Risk >=500Cholesterol Reference Range: Low Risk <200 Borderline 200-239 High Risk > 240HDL Cholesterol Reference Range: Low Risk >=60 High Risk <40LDL Cholesterol Reference Range: Optimal <100 Near Optimal 100-129 Borderline 130-159 High 160-189 Very High >=190POCT-GLUCOSE [id number] 21:35:00 Test Item Value Reference Range Comments POC-GLUCOSE METER (BEAKER) 128 mg/dL 70-110 TESTED AT [address] (test dpnm=3770) [place] [address] POCT-GLUCOSE [id number] 17:55:00 Test Item Value Reference Range Comments POC-GLUCOSE METER (BEAKER) 113 mg/dL 70-110 TESTED AT [address] (test dwea=2676) [place] [address] POCT-GLUCOSE [id number] 12:32:00 Test Item Value Reference Range Comments POC-GLUCOSE METER (BEAKER) 120 mg/dL 70-110 TESTED AT [address] (test eupv=7654) [place] [address] MR, MRA, BRAIN, WITHOUT [id number] 11:33:00Reason for exam:-> Ischemic Stroke EvaluationFINAL REPORT MRA Head and Neck CLINICAL HISTORY: CVA TECHNIQUE: MRA of the head utilizing 3-D cvbk-my-jrmhqn technique, with 3-D reconstructions. MRA of the [...] There is no other evidence for a [place] of [place] proximal branch vessel occlusion. There [...] Verified Date/Time: 11/20/2017 11:33:14 Reading Location : [facility] C013 Neuro Reading Room MR, MRA, NECK, WITHOUT IV [id number] 11:33: 00Reason for exam:->Ischemic Stroke EvaluationFINAL REPORT MRA Head and Neck CLINICAL HISTORY: CVA TECHNIQUE: MRA of the head utilizing 3-D lznh-fu-ybuqll technique, with 3-D reconstructions. MRA of the neck utilizing 2-D and 3-D unog-qe-duptcw technique, with 3-D reconstructions. COMPARISON: None FINDINGS: [...] There is no other evidence for a [place] of [place] proximal branch vessel occlusion. There [...] Verified Date/Time: 11/20/2017 11 :33:14 Reading Location: [address] Neuro Reading Room MR, BRAIN, WITHOUT [id number] 11:05:00Reason for exam:->Ischemic Stroke EvaluationFINAL REPORT MRI [...] Koch Verified Date/Time: 11/20/2017 11:05:05 Reading Location: [address] Neuro Reading Room HEMOGLOBIN [id number] 09:08:00 Test Item Value Reference Range Comments HEMOGLOBIN A1C (BEAKER) (test bizn=530) 6.1 % 4.3-6.1 POCT-GLUCOSE [id number] 08:27:00 Test Item Value Reference Range Comments POC-GLUCOSE METER (BEAKER) 125 mg/dL 70-110 TESTED AT [address] (test zjrp=0538) [facility] [address] TSH/FREE T4 IF [id number] 07:47:00 Test Item Value Reference Range Comments THYROID STIMULATING HORMONE (BEAKER) (test 5.97 uIU/mL 0.35-4.94 vkqz=339) VITAMIN [id number] 07:44:00 Test Item Value Reference Range Comments VITAMIN B12 (BEAKER) (test erwe=288) 857 pg/mL 213-816 CBC W/PLT COUNT & AUTO [id number] 06:47:00 Test Item Value Reference Range Comments WHITE BLOOD CELL COUNT (BEAKER) (test pbrl=384) 8.3 K/ L 3.5-10.5 RED BLOOD CELL COUNT (BEAKER) (test qjhv=141) 4.11 M/ L 3.93-5.22 HEMOGLOBIN (BEAKER) (test dwjy=762) 13.4 GM/DL 11.2-15.7 HEMATOCRIT (BEAKER) (test abof=123) 39.7 % 34.1-44.9 MEAN CORPUSCULAR VOLUME (BEAKER) (test ewki=700) 96.6 fL 79.4-94.8 MEAN CORPUSCULAR HEMOGLOBIN (BEAKER) (test 32.6 pg 25.6-32.2 valp=869) MEAN CORPUSCULAR HEMOGLOBIN CONC (BEAKER) (test 33.8 GM/DL 32.2-35.5 qwjy=617) RED CELL DISTRIBUTION WIDTH (BEAKER) (test 12.1 % 11.7-14.4 phek=984) PLATELET COUNT (BEAKER) (test ejym=527) 209 K/CU MM 150-450 MEAN PLATELET VOLUME (BEAKER) (test spgr=268) 9.7 fL 9.4-12.3 NUCLEATED RED BLOOD CELLS (BEAKER) (test 0 /100 WBC 0-0 kbqp=627) NEUTROPHILS RELATIVE PERCENT (BEAKER) (test 49 % dfid=371) LYMPHOCYTES RELATIVE PERCENT (BEAKER) (test 35 % ahds=693) MONOCYTES RELATIVE PERCENT (BEAKER) (test 12 % xzjh=943) EOSINOPHILS RELATIVE PERCENT (BEAKER) (test 4 % nryi=633) BASOPHILS RELATIVE PERCENT (BEAKER) (test 1 % dhom=707) NEUTROPHILS ABSOLUTE COUNT (BEAKER) (test 4.02 K/ L 1.56-6.13 qneo=281) LYMPHOCYTES ABSOLUTE COUNT (BEAKER) (test 2.89 K/ L 1.18-3.74 cpuc=426) MONOCYTES ABSOLUTE COUNT (BEAKER) (test 0.95 K/ L 0.24-0.36 tlyr=496) EOSINOPHILS ABSOLUTE COUNT (BEAKER) (test 0.35 K/ L 0.04-0.36 vmkc=879) BASOPHILS ABSOLUTE COUNT (BEAKER) (test 0.04 K/ L 0.01-0.08 ngoe=463) IMMATURE GRANULOCYTES-RELATIVE PERCENT (BEAKER) 0 % 0-1 (test smpp=8939) POCT-GLUCOSE [id number] 22:09:00 Test Item Value Reference Range Comments POC-GLUCOSE METER (BEAKER) 130 mg/dL 70-[address] [facility] [address] [facility] (test cyqj=3655) [facility] [address]
--- OUTSIDE RECORDS SUMMARY | 2019-10-14 08:39 | XMS REPORT ---
[...] End Status Dosage System Date Date Levothyroxine [facility] 45270363736 125 MCG Orally Active 1 tablet Sodium Once a day in the morning on an empty stomach Cranberry [facility] [address] 425 MG Orally Active 1 capsule Concentrate with meals Plavix ND 76191311971 75 MG Orally Active 1 tablet Once a day Eliquis [facility] 75370857861 5 MG Orally Active 1 tablet twice a day Rosuvastatin [facility] 34194373748 40 Active TAKE 1 Calcium TABLET BY MOUTH DAILY Levetiracetam [facility] 72598395459 250 MG Orally Active 1 tablet every 12 hrs Tylenol Arthritis ND 0 Active not Pain defined Vitamin B-12 [facility] [address] Active not defined Estradiol [facility] 13922085659 0.1 MG/GM January Active as Vaginal Two , directed times a Week 2018 Irbesartan [facility] 00883903836 150 MG Orally Active 1 tablet Once a day Metformin HCl [facility] 82334848401 500 MG Orally Active 1 tablet Twice a day with meals Amlodipine [facility] 92713313805 10 MG Orally Active 1 tablet Besylate Once a day Carvedilol [facility] 24160095251 25 MG Orally Active as directed Omeprazole [facility] 94046849055 40 MG orally Active 1 EACH daily in AM ONCE A DAY Sertraline HCl [facility] 65757289636 25 MG Orally Active 1 tablet Once a day HydrALAZINE HCl [facility] 15917830918 100 MG Orally Active 1 tablet Three times a with food day HydrALAZINE HCl [facility] 12431741223 100 MG Orally December 05, Active as Three times a 2017 directed day Cyanocobalamin [facility] [address]-34 1000 MCG/15ML Active 15 ml Orally Once a day Omeprazole [facility] 07231172860 40 Active TAKE 1 CAPSULE BY MOUTH EVERY DAY Crestor [facility] 93950546687 40 MG Active 1 EACH ONCE A DAY Vitamin E [facility] 15993642192 400 UNIT Orally Active not defined Coreg [facility] 54102664824 25 MG Orally Active not defined Vitamin D3 [facility] 76382741068 1000 UNIT Active 1 capsule Orally Once a day Metformin HCl [facility] 60359160630 500 Active TAKE 1 TABLET BY MOUTH TWICE DAILY Multivitamin [facility] [address] Active not defined Probiotic [facility] 00953784433 - Orally Active not defined Magnesium [facility] 31263524651 500 MG Orally Active not defined Results No Known Results Summary Purpose eClinicalWorks Submission
--- OUTSIDE RECORDS SUMMARY | 2019-10-14 08:39 | XMS REPORT ---
[...] Status Dosage System Date Date Vitamin B-12 [facility] [address] Active not defined Levothyroxine [facility] 46745572658 125 MCG Orally Active 1 tablet Sodium Once a day in the morning on an empty stomach Crestor [facility] 77081995425 40 MG Active 1 EACH ONCE A DAY Estradiol [facility] 69838508001 0.1 MG/GM January Active as Vaginal Two 22, directed times a Week 2018 Irbesartan [facility] 99836957212 150 MG Orally Active 1 tablet Once a day Cyanocobalamin [facility] [address]-41 1000 MCG/15ML Active 15 ml Orally Once a day Methenamine [facility] 33857952618 1 GM Orally Aug 02September Active 1 tablet Hippurate Twice a day 2019 Probiotic [facility] [id number] - Orally Active not defined Eliquis [facility] 93057905696 5 MG Orally Active 1 tablet twice a day Vitamin E [facility] 88452094478 400 UNIT Active not Orally defined HydrALAZINE HCl [facility] 91122541298 100 MG Orally Active 1 tablet Three times a with food day Coreg [facility] 17146021712 25 MG Orally Active not defined Tylenol Arthritis ND 0 Active not Pain defined Levetiracetam [facility] 83166027948 250 MG Orally Active 1 tablet every 12 hrs Cranberry [facility] [address] 425 MG Orally Active 1 capsule Concentrate with meals Multivitamin [facility] [address] Active not defined HydrALAZINE HCl [facility] 17883448462 100 MG Orally December 05, Active as Three times a 2017 directed day Metformin HCl [facility] 39361769172 500 MG Orally Active 1 tablet Twice a day with meals Plavix [facility] 36037118517 75 MG Orally Active 1 tablet Once a day Omeprazole [facility] 06930565702 40 Active TAKE 1 CAPSULE BY MOUTH EVERY DAY Omeprazole [facility] 86883899431 40 MG orally Active 1 EACH daily in AM ONCE A DAY Sertraline HCl [facility] 36634424914 25 MG Orally Active 1 tablet Once a day Carvedilol ND 18761182598 25 MG Orally Active as directed Magnesium [facility] 23719868554 500 MG Orally Active not defined Vitamin D3 [facility] 44373059744 1000 UNIT Active 1 capsule Orally Once a day Bactrim [facility] 75316125166 400-80 MG Aug 02, Aug 07, Active 1 tablet Orally BID 2019 2019 Metformin HCl [facility] 34786271273 500 Active TAKE 1 TABLET BY MOUTH TWICE DAILY Rosuvastatin [facility] 17884798810 40 Active TAKE 1 Calcium TABLET BY MOUTH DAILY Amlodipine [facility] 19880651152 10 MG Orally Active 1 tablet Besylate Once a day Results No Known Results Summary Purpose eClinicalWorks Submission
--- OUTSIDE RECORDS SUMMARY | 2019-10-14 08:39 | XMS REPORT ---
:1935 Author Organization eClinicalWorks Care Team Providers Name Role Phone Admaaris Cifuentes Provider Role Unavailable Allergies, Adverse Reactions, [...] Ranitidine NDC 0 Active not defined Levothyroxine [facility] [address]-77 Active not defined Sodium Vitamin B-12 [facility] [address] Active not defined Metformin HCl [facility] 60972906118 500 MG Orally Active 1 tablet with Twice a day meals Sertraline HCl [facility] 34611676166 25 Orally Once Active 1 tablet a day Bactrim DS [facility] 32816945806 800-160 MG December Active 1 tablet Orally Twice a 2018 Vitamin E [facility] 44[address] Active not defined Cranberry [facility] [address] Active not defined Concentrate Rosuvastatin [facility] 37402038676 40 Active TAKE 1 TABLET Calcium BY MOUTH DAILY Cyanocobalamin [facility] [address]-13 1000 MCG/15ML Active 15 ml Orally Once a day Tylenol Arthritis ND 0 Active not defined Pain Valsartan [facility] 93968595040 160 MG Orally Active 1 tablet Once a day Bactrim DS [facility] 77856660153 800-160 MG January Active 1 tablet Orally Twice a , 2017 Crestor [facility] 40278944113 40 MG Active 1 EACH ONCE A DAY Multivitamin [facility] [address] Active not defined Probiotic [facility] 90[address] Active not defined Plavix [facility] 52406774231 75 MG Orally Active 1 tablet Once a day HydrALAZINE HCl [facility] 17930318610 100 MG Orally December 05, Active as directed Three times a 2017 day Toviaz [facility] 12051812405 8 MG Orally Active 1 tablet Once a day Verapamil HCl [facility] [address]-32 Active not defined Omeprazole [facility] 46607899929 40 Active TAKE 1 CAPSULE BY MOUTH EVERY DAY Fluconazole ND 83783498267 150 MG Orally Sep 15, Active 1 tablet one tab a week 2019 today and may repeat one tab in 1 week if no improvement Estradiol [facility] 43660527452 0.1 MG/GM January Active as directed Vaginal Two 22, times a Week 2018 Metformin HCl [facility] 44002629730 500 Active TAKE 1 TABLET BY MOUTH TWICE DAILY Omeprazole [facility] 34926755659 40 MG orally Active 1 EACH ONCE A daily in AM DAY Eliquis [facility] 05383260805 5 MG Orally Active 1 tablet twice a day Sertraline HCl [facility] 14669843489 25 MG Orally Active 1 tablet Once a day Carvedilol ND 85016571696 25 MG Orally Active as directed Vitamin D3 [facility] 68021644985 1000 UNIT Active 1 capsule Orally Once a day Amlodipine [facility] 55879585728 10 MG Orally Active 1 tablet Besylate Once a day Coreg [facility] 59776598888 25 MG Orally Active not defined HydrALAZINE HCl [facility] 08227530154 100 MG Orally Active 1 tablet with Three times a food day Irbesartan [facility] 18373199904 150 MG Orally Active 1 tablet Once a day Results No Known Results Summary Purpose eClinicalWorks Submission
--- OUTSIDE RECORDS SUMMARY | 2019-10-14 08:39 | XMS REPORT ---
[...] System Date Date Toviaz [facility] 79761138206 8 MG Orally Active 1 tablet Once a day Valsartan [facility] 24706890546 160 MG Orally Active 1 tablet Once a day Tylenol Arthritis NDC 0 Active not defined Pain Metformin HCl [facility] 61177708688 500 MG Orally Active 1 tablet with Twice a day meals Estradiol [facility] 68239117170 0.1 MG/GM January Active as directed Vaginal Two 22, times a Week 2018 Probiotic [facility] 30973-[address] Active not defined Cranberry [facility] 8[address]62-[address]88 Active not defined Concentrate Bactrim DS ND 77360101072 800-160 MG December Active 1 tablet Orally Twice a 2018 Cyanocobalamin [facility] [address]-30 1000 MCG/15ML Active 15 ml Orally Once a day HydrALAZINE HCl [facility] 40212187103 100 MG Orally December 05, Active as directed Three times a 2017 day Eliquis [facility] 54354604666 5 MG Orally Active 1 tablet twice a day Omeprazole [facility] 59659379548 40 Active TAKE 1 CAPSULE BY MOUTH EVERY DAY Levothyroxine [facility] [address]-23 Active not defined Sodium Verapamil HCl [facility] [address]-98 Active not defined Irbesartan [facility] 98150101522 150 MG Orally Active 1 tablet Once a day Sertraline HCl [facility] 82988346241 25 Orally Once Active 1 tablet a day Bactrim DS [facility] 47768530305 800-160 MG January Active 1 tablet Orally Twice a 2017 Multivitamin [facility] 22144-57221 Active not defined Sertraline HCl [facility] 19708760958 25 MG Orally Active 1 tablet Once a day Metformin HCl [facility] 41174379373 500 Active TAKE 1 TABLET BY MOUTH TWICE DAILY Vitamin B-12 [facility] 542[address]207 Active not defined Levetiracetam [facility] 49365232375 250 MG Orally Active 1 tablet every 12 hrs Amlodipine [facility] 88441629345 10 MG Orally Active 1 tablet Besylate Once a day Magnesium ND 0 Active not defined HydrALAZINE HCl [facility] 04217207370 100 MG Orally Active 1 tablet with Three times a food day Carvedilol [facility] 17568807353 25 MG Orally Active as directed Vitamin E [facility] 625[address] Active not defined Coreg [facility] 58219473549 25 MG Orally Active not defined Vitamin D3 [facility] 85630317169 1000 UNIT Active 1 capsule Orally Once a day Ranitidine [facility] 27785740781 Active not defined Rosuvastatin [facility] 19711919080 40 Active TAKE 1 TABLET Calcium BY MOUTH DAILY Plavix [facility] 04841220851 75 MG Orally Active 1 tablet Once a day Omeprazole [facility] 17835745825 40 MG orally Active 1 EACH ONCE A daily in AM DAY Fluconazole [facility] 45055485523 150 MG Orally Sep 15, Active 1 tablet one tab a week 2019 today and may repeat one tab in 1 week if no improvement Crestor [facility] 78291627377 40 MG Active 1 EACH ONCE A DAY Results No Known Results Summary Purpose eClinicalWorks Submission
--- OUTSIDE RECORDS SUMMARY | 2019-10-14 08:40 | XMS REPORT ---
[...] End Status Dosage System Date Date Eliquis [facility] 51949562821 5 MG Orally Active 1 tablet twice a day Omeprazole [facility] 61264646743 40 MG orally Active 1 EACH daily in AM ONCE A DAY Levetiracetam [facility] 21459355957 250 MG Orally Active 1 tablet every 12 hrs Tylenol Arthritis [facility] 0 Active not Pain defined Multivitamin [facility] 305[address]07 Active not defined Rosuvastatin [facility] 35484710852 40 Active TAKE 1 Calcium TABLET BY MOUTH DAILY Sertraline HCl [facility] 33953530022 25 MG Orally Active 1 tablet Once a day Crestor [facility] 95487291451 40 MG Active 1 EACH ONCE A DAY Methenamine [facility] 53171777527 1 GM Orally Aug 02September Active 1 tablet Hippurate Twice a day 2019 Levothyroxine [facility] 27544729326 125 MCG Orally Active 1 tablet Sodium Once a day in the morning on an empty stomach Cranberry [facility] [address]59-[address]96 425 MG Orally Active 1 capsule Concentrate with meals Probiotic [facility] 09568165899 - Orally Active not defined HydrALAZINE HCl [facility] 46797423542 100 MG Orally Active 1 tablet Three times a with food day Coreg [facility] 45885976116 25 MG Orally Active not defined HydrALAZINE HCl [facility] 87647203535 100 MG Orally December 05, Active as Three times a 2017 directed day Vitamin D3 [facility] 39515159141 1000 UNIT Active 1 capsule Orally Once a day Metformin HCl [facility] 88146612011 500 MG Orally Active 1 tablet Twice a day with meals Metformin HCl [facility] 71536952244 500 Active TAKE 1 TABLET BY MOUTH TWICE DAILY Cyanocobalamin [facility] [address]-15 1000 MCG/15ML Active 15 ml Orally Once a day Carvedilol [facility] 23278981400 25 MG Orally Active as directed Amlodipine [facility] 05730532566 10 MG Orally Active 1 tablet Besylate Once a day Omeprazole [facility] 39470381171 40 Active TAKE 1 CAPSULE BY MOUTH EVERY DAY Vitamin B-12 [facility] 710[address] Active not defined Irbesartan [facility] 91894534865 150 MG Orally Active 1 tablet Once a day Vitamin E [facility] 84961292244 400 UNIT Active not Orally defined Estradiol [facility] 49636374095 0.1 MG/GM January Active as Vaginal Two 22, directed times a Week 2018 Plavix [facility] 36424560501 75 MG Orally Active 1 tablet Once a day Magnesium [facility] 96393174836 500 MG Orally Active not defined Results No Known Results Summary Purpose eClinicalWorks Submission
--- OUTSIDE RECORDS SUMMARY | 2019-10-14 08:40 | XMS REPORT ---
[...] End Status Dosage System Date Date Amlodipine [facility] 57871424724 10 MG Orally Active 1 tablet Besylate Once a day Levetiracetam [facility] 85960935508 250 MG Orally Active 1 tablet every 12 hrs Magnesium [facility] 88723742770 500 MG Orally Active not defined Sertraline HCl [facility] 39260821574 25 MG Orally Active 1 tablet Once a day Eliquis [facility] 50113102933 5 MG Orally Active 1 tablet twice a day Cranberry [facility] 39[address]808 425 MG Orally Active 1 capsule Concentrate with meals Levothyroxine [facility] 15041675353 125 MCG Orally Active 1 tablet Sodium Once a day in the morning on an empty stomach Metformin HCl [facility] 32559053782 500 MG Orally Active 1 tablet Twice a day with meals Metformin HCl [facility] 19032217115 500 Active TAKE 1 TABLET BY MOUTH TWICE DAILY Tylenol Arthritis [facility] 0 Active not Pain defined Plavix [facility] 40863333855 75 MG Orally Active 1 tablet Once a day Crestor [facility] 30803309759 40 MG Active 1 EACH ONCE A DAY Vitamin B-12 [facility] 18[address] Active not defined Omeprazole [facility] 56024766161 40 Active TAKE 1 CAPSULE BY MOUTH EVERY DAY Coreg [facility] 47059043406 25 MG Orally Active not defined Irbesartan [facility] 55335989486 150 MG Orally Active 1 tablet Once a day Multivitamin [facility] 01415-41362 Active not defined Estradiol [facility] 75536596333 0.1 MG/GM January Active as Vaginal Two 22, directed times a Week 2018 Rosuvastatin [facility] 93193360306 40 Active TAKE 1 Calcium TABLET BY MOUTH DAILY HydrALAZINE HCl [facility] 70559689406 100 MG Orally Active 1 tablet Three times a with food day Probiotic [facility] 74015443485 - Orally Active not defined Methenamine [facility] 15445269215 1 GM Orally Active 1 tablet Hippurate Twice a day Cyanocobalamin [facility] [address]-43 1000 MCG/15ML Active 15 ml Orally Once a day Vitamin E [facility] 34734393279 400 UNIT Orally Active not defined Vitamin D3 [facility] 42059715071 1000 UNIT Active 1 capsule Orally Once a day Omeprazole [facility] 91101888398 40 MG orally Active 1 EACH daily in AM ONCE A DAY Carvedilol [facility] 78051933598 25 MG Orally Active as directed HydrALAZINE HCl [facility] 77123357183 100 MG Orally December 05, Active as Three times a 2018 directed day Results No Known Results Summary Purpose eClinicalWorks Submission
--- OUTSIDE RECORDS SUMMARY | 2019-10-14 08:41 | XMS REPORT ---
[...] End Status Dosage System Date Date Methenamine [facility] 74627913690 1 GM Orally Active 1 tablet Hippurate Twice a day HydrALAZINE HCl [facility] 20004303297 100 MG Orally Active 1 tablet Three times a with food day Vitamin E [facility] 81840509644 400 UNIT Active not Orally defined Magnesium [facility] 31199160821 500 MG Orally Active not defined Carvedilol [facility] 49507938763 25 MG Orally Active as directed Plavix [facility] 45691966105 75 MG Orally Active 1 tablet Once a day Crestor [facility] 71312729956 40 MG Active 1 EACH ONCE A DAY Coreg [facility] 87731692089 25 MG Orally Active not defined Multivitamin [facility] [address] Active not defined Tylenol Arthritis ND 0 Active not Pain defined Trimethoprim [facility] 45507552699 100 MG Orally Sep 18September Active 1 tablet Once a day [address] [facility] [address]-34 1000 MCG/15ML Active 15 ml Orally Once a day Estradiol [facility] 01471379432 0.1 MG/GM January Active as Vaginal Two 22, directed times a Week 2018 Vitamin D3 [facility] 25903465303 1000 UNIT Active 1 capsule Orally Once a day Metformin HCl [facility] 95685806980 500 MG Orally Active 1 tablet Twice a day with meals Sertraline HCl [facility] 18505406587 25 MG Orally Active 1 tablet Once a day Vitamin B-[address] [facility] [address]242 Active not defined Eliquis [facility] 58817595265 5 MG Orally Active 1 tablet twice a day Metformin HCl [facility] 90901944024 500 Active TAKE 1 TABLET BY MOUTH TWICE DAILY Rosuvastatin [facility] 88449585996 40 Active TAKE 1 Calcium TABLET BY MOUTH DAILY Probiotic [facility] 65752658749 - Orally Active not defined Omeprazole [facility] 34780150947 40 Active TAKE 1 CAPSULE BY MOUTH EVERY DAY Cranberry [facility] [address]64 425 MG Orally Active 1 capsule Concentrate with meals Irbesartan [facility] 34174194761 150 MG Orally Active 1 tablet Once a day Levothyroxine [facility] 82877307360 125 MCG Orally Active 1 tablet Sodium Once a day in the morning on an empty stomach Omeprazole [facility] 83235768315 40 MG orally Active 1 EACH daily in AM ONCE A DAY Amlodipine [facility] 46510446505 10 MG Orally Active 1 tablet Besylate Once a day Levetiracetam [facility] 58264831943 250 MG Orally Active 1 tablet every 12 hrs HydrALAZINE HCl [facility] 64324330603 100 MG Orally December 05, Active as Three times a 2017 Results No Known Results Summary Purpose eClinicalWorks Submission
--- OUTSIDE RECORDS SUMMARY | 2019-10-14 08:41 | XMS REPORT ---
[...] Start End Status Dosage System Date Date Montelukast [facility] 65582460857 10 MG Orally October 11, Active 1 tablet Sodium Once a day 2019 Results No Known Results Summary Purpose eClinicalWorks Submission
[2019-10-14 09:18] LABS: Absolute Lymphocytes (CBC) 1.7 K/uL (0.7-4.9); Basophils % 1.2 % (0-1.3); Hematocrit 39.4 % (36.0-45.0); Lymphocytes % 21.1 % (15.3-44.8); MPV 7.2 fL (7.6-11.3); RBC Red Blood Cell Count 4.17 M/uL (3.86-4.86)
[2019-10-14 09:35] LABS: Urine Blood NEGATIVE (NEG); Urine Glucose 1+ (NEG); Urine Protein NEGATIVE (NEG); Urine pH 7.5 (5.0-7.0)
[2019-10-14 09:42] LABS: BUN Blood Urea Nitrogen 7 mg/dL (7-18); Bicarbonate 26 mmol/L (21-32); Glucose Level 161 mg/dL (74-106); Potassium 4.3 mmol/L (3.5-5.1); Sodium Level 125 mmol/L (136-145)
--- NOTE | 2019-10-14 09:52 | RAD REPORT ---
EXAM DESCRIPTION: RAD - Chest Pa And Lat (2 Views) - 10/14/2019 9:20 am CLINICAL HISTORY: COUGH COMPARISON: Portable October 01, 2019, September 12, 2019 TECHNIQUE: Frontal and lateral views of the chest were obtained. FINDINGS: The lungs are clear. Lung markings match comparison. 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 Hea rt size is normal and central vasculature is within normal limits. No pleural effusion or pneumothor ax seen. No acute bony finding noted. No aortic abnormality. IMPRESSION: No acute cardiopulmonary process. No significant change comparison.
[2019-10-14] MEDS ORDERED: NA CHLORIDE 0.9% 1,000 ML ONE (10:04)
[2019-10-14] MEDS ORDERED: ACETAMINOPHEN 325 MG TABLET ONE (11:31)
[2019-10-14 11:46] LABS: BUN Blood Urea Nitrogen 7 mg/dL (7-18); Bicarbonate 24 mmol/L (21-32); Glucose Level 138 mg/dL (74-106); Potassium 4.2 mmol/L (3.5-5.1); Sodium Level 131 mmol/L (136-145)
--- NOTE | 2019-10-14 12:04 | ER ---
Nurse's Notes [facility] Name: Radha Lara Age: 84 yrs Sex: Female : 1935 Arrival Date: 10/14/2019 Time: 08:38 Bed 7 Private MD: Elli Britt Diagnosis: Nausea;Dehydration;Cough Presentation: 10/13 08:52 Chief complaint: Patient states: has had a cough and has been nauseated since iw today has been very weak, denies fever, has been on allergy medicine and Singulair , was seen here a couple weeks ago for similar symptoms. Coronavirus screen: Patient denies fever greater than 100.4F, cough, shortness of breath, or difficulty breathing. Proceed with normal triage process. Ebola Screen: Patient negative for fever greater than or equal to 101.5 degrees Fahrenheit, and additional compatible Ebola Virus Disease symptoms Patient denies exposure to infectious person. Patient denies travel to an Ebola-affected area in the 21 days before illness onset. No symptoms or risks identified at this time. 08:52 Method Of Arrival: Wheelchair iw 08:58 Initial Sepsis Screen: Does the patient meet any 2 criteria? No. Patient's initial iw sepsis screen is negative. Does the patient have a suspected source of infection? No. Patient's initial sepsis screen is negative. Risk Assessment: Do you want to hurt yourself or someone else? Patient reports no desire to harm self or others. 08:58 Acuity: YOLANDE 3 iw 09:13 Onset of symptoms is unknown. jl7 Historical: - Allergies: 08:57 Aspirin; iw 08:57 Clonidine; iw 08:57 Codeine; iw 08:57 Ibuprofen; iw 08:57 Iodinated Contrast Media - IV Dye; iw 08:57 Lisinopril; iw 08:57 Niacin; iw 08:57 Nitrofurantoin; iw 08:57 nitrous oxide; iw 08:57 vicoden; iw 08:57 Zoloft; iw - Home Meds: 08:57 amlodipine 5 mg tab 1 tab once daily for Hypertension [Active]; carvedilol 25 mg Oral iw tab 1 tab 2 times per day [Active]; cranberry Oral twice a day [Active]; Crestor 40 mg Oral tab once daily [Active]; Eliquis 5 mg Oral tab 2 times per day [Active]; furosemide 40 mg Oral tab as needed [Active]; hydralazine 100 mg Oral tab 3 times per day [Active]; irbesartan 150 mg Oral tab 1 tab once daily [Active]; levothyroxine 75 mcg tab 1 tab once daily [Active]; magnesium oxide 500 mg Oral cap [Active]; metformin 500 mg Oral Tb24 1 tab 2 times per day [Active]; Multiple Vitamins Oral tab daily [Active]; omeprazole 40 mg Oral cpDR 1 cap once daily [Active]; Plavix 75 mg Oral tab 1 tab once daily [Active]; Probiotic Oral [Active]; Vitamin B-12 2,000 mcg Oral TbER daily [Active]; Vitamin D3 1,000 unit Oral chew daily [Active]; vitamin E Oral once daily [Active]; - PMHx: 08:57 acid reflux; ADD/ADHD; Atrial Fib; CVA; Diabetes - NIDDM; Hyperlipidemia; Hypertension; iw Kidney stones; PE; Sleep Apnea; TIA; UTI; - PSHx: 08:57 Hysterectomy; Cholecystectomy; Tonsillectomy; iw - Immunization history:: Adult Immunizations not up to date. - Social history:: Smoking status: Patient denies any tobacco usage or history of. Screenin:13 Abuse screen: Denies threats or abuse. Denies injuries from another. Nutritional jl7 screening: No deficits noted. Tuberculosis screening: No symptoms or risk factors identified. Fall Risk IV access (20 points). Assessment: 08:45 General: Appears in no apparent distress. uncomfortable, Behavior is cooperative, jl7 fussy. Pain: Complains of pain in posterior neck. Neuro: Level of Consciousness is awake, alert, obeys commands, Oriented to person, place, time, situation. Cardiovascular: Patient's skin is warm and dry. Respiratory: Airway is patent Respiratory effort is even, unlabored, Respiratory pattern is regular, symmetrical, Breath sounds are clear bilaterally. Derm: Skin is pink, warm \T\ dry. 09:45 Reassessment: Patient appears in no apparent distress at this time. No changes from jl7 previously documented assessment. Patient and/or family updated on plan of care and expected duration. Pain level reassessed. Patient is alert, oriented x 3, equal unlabored respirations, skin warm/dry/pink. 11:00 Reassessment: Patient appears in no apparent distress at this time. No changes from jl7 previously documented assessment. Patient and/or family updated on plan of care and expected duration. Pain level reassessed. Patient is alert, oriented x 3, equal unlabored respirations, skin warm/dry/pink. Vital Signs: 08:45 BP 167 / 59; Pulse 60; Resp 17 S; Pulse Ox 97% on R/A; jl7 08:52 Temp 98.2; Weight 58.97 kg; Height 5 ft. 2 in. (157.48 cm); iw 10:04 BP 147 / 51; Pulse 70; Resp 16 S; Pulse Ox 97% on R/A; jl7 11:30 BP 162 / 67; Pulse 68; Resp 16 S; Pulse Ox 97% on R/A; jl7 08:52 Body Mass Index 23.78 (58.97 kg, 157.48 cm) iw ED Course: 08:38 Patient arrived in ED. as 08:39 Elli Britt MD is Private Physician. as 08:43 Vicente Villatoro RN is Primary Nurse. jl7 08:44 [facility]C [facility] kb 08:44 Eleazar Tenorio MD is Attending Physician. kb 08:58 Triage completed. iw 08:58 Arm band placed on. iw 09:13 Patient has correct armband on for positive identification. Placed in gown. Bed in low jl7 position. Call light in reach. Side rails up X 1. Pulse ox on. NIBP on. 09:13 Initial lab(s) drawn, by me, sent to lab. Urine collected: clean catch specimen, clear, jl7 Flu and/or RSV swab sent to lab. Strep swab sent to lab. Inserted saline lock: 22 gauge in right forearm, using aseptic technique. Blood collected. 09:18 Chest Pa And Lat (2 Views) XRAY In Process Unspecified. EDMS 09:52 Throat Culture Sent. kj1 11:25 Repeat lab(s) drawn. by me, sent to lab. jl7 12:47 No provider procedures requiring assistance completed. IV discontinued, intact, jl7 bleeding controlled, No redness/swelling at site. Pressure dressing applied. Administered Medications: 10:03 Drug: NS 0.9% 1000 ml Route: IV; Rate: 1000 ml; Site: right forearm; jl7 11:25 Follow up: Response: No adverse reaction; IV Status: Completed infusion; IV Intake: jl7 1000ml 11:29 Drug: Tylenol 650 mg Route: PO; jl7 12:00 Follow up: Response: No adverse reaction; Pain is decreased jl7 12:30 Drug: Zofran (Ondansetron) 4 mg Route: IVP; Site: right forearm; jl7 12:46 Follow up: Response: Medication administered at discharge. jl7 Intake: 11:25 IV: 1000ml; Total: 1000ml. jl7 Outcome: 12:03 Discharge ordered by . alexus 12:47 Discharged to home via wheelchair, with family. jl7 12:47 Condition: stable 12:47 Discharge instructions given to patient, family, Instructed on discharge instructions, follow up and referral plans. medication usage, Demonstrated understanding of instructions, follow-up care, medications, Prescriptions given X 1. 12:47 Patient left the ED. jl7 Signatures: Dispatcher [employer] EDMS Karina Joaquin, ISELA-C ISELA-Vicki Green Irene, RN RN iw Leal, Jahala, RN RN jl7 Jackson, Kandis kj1
--- NOTE | 2019-10-14 12:04 | EDPHYS ---
Physician Documentation [facility] Name: Radha Lara Age: 84 yrs Sex: Female : 1935 Arrival Date: 10/14/2019 Time: 08:38 Bed 7 Private MD: Elli Britt ED Physician Eleazar Tenorio HPI: 10/13 11:22 This 84 yrs old Female presents to ER via Wheelchair with complaints of kb Cough, Congestion, Weakness. 11:22 The patient or guardian reports cough, that is intermittent, described as moderate, kb with no sputum. Onset: The symptoms/episode began/occurred 2 week(s) ago. Severity of symptoms: At their worst the symptoms were mild, moderate, in the emergency department the symptoms are unchanged. Modifying factors: The symptoms are alleviated by nothing, the symptoms are aggravated by nothing. Associated signs and symptoms: Pertinent positives: nausea, Pertinent negatives: chest pain, diarrhea, ear ache, fever, rhinorrhea, sore throat, vomiting. The patient has experienced similar episodes in the past, a few times. The patient has been recently seen at the [facility] Emergency Department, a couple of weeks ago. Pt reports cough, congestion, weakness, fatigue and nausea that started 2 weeks ago. Was seen here and diagnosed with a URI, then her PCP told her it was allergies and gave prescriptions for zofran and singulair. States the medications aren't helping and today she has been more weak. Historical: - Allergies: 08:57 Aspirin; iw 08:57 Clonidine; iw 08:57 Codeine; iw 08:57 Ibuprofen; iw 08:57 Iodinated Contrast Media - IV Dye; iw 08:57 Lisinopril; iw 08:57 Niacin; iw 08:57 Nitrofurantoin; iw 08:57 nitrous oxide; iw 08:57 vicoden; iw 08:57 Zoloft; iw - Home Meds: 08:57 amlodipine 5 mg tab 1 tab once daily for Hypertension [Active]; carvedilol 25 mg Oral iw tab 1 tab 2 times per day [Active]; cranberry Oral twice a day [Active]; Crestor 40 mg Oral tab once daily [Active]; Eliquis 5 mg Oral tab 2 times per day [Active]; furosemide 40 mg Oral tab as needed [Active]; hydralazine 100 mg Oral tab 3 times per day [Active]; irbesartan 150 mg Oral tab 1 tab once daily [Active]; levothyroxine 75 mcg tab 1 tab once daily [Active]; magnesium oxide 500 mg Oral cap [Active]; metformin 500 mg Oral Tb24 1 tab 2 times per day [Active]; Multiple Vitamins Oral tab daily [Active]; omeprazole 40 mg Oral cpDR 1 cap once daily [Active]; Plavix 75 mg Oral tab 1 tab once daily [Active]; Probiotic Oral [Active]; Vitamin B-12 2,000 mcg Oral TbER daily [Active]; Vitamin D3 1,000 unit Oral chew daily [Active]; vitamin E Oral once daily [Active]; - PMHx: 08:57 acid reflux; ADD/ADHD; Atrial Fib; CVA; Diabetes - NIDDM; Hyperlipidemia; Hypertension; iw Kidney stones; PE; Sleep Apnea; TIA; UTI; - PSHx: 08:57 Hysterectomy; Cholecystectomy; Tonsillectomy; iw - Immunization history:: Adult Immunizations not up to date. - Social history:: Smoking status: Patient denies any tobacco usage or history of. ROS: 11:21 ENT: Negative for injury, pain, and discharge, Neck: Negative for injury, pain, and kb swelling, Cardiovascular: Negative for chest pain, palpitations, and edema, Back: Negative for injury and pain, MS/Extremity: Negative for injury and deformity, Skin: Negative for injury, rash, and discoloration, Neuro: Negative for headache, weakness, numbness, tingling, and seizure. 11:21 Constitutional: Positive for fatigue, malaise, Negative for body aches, chills, fever, poor PO intake, weight loss. 11:21 Respiratory: Positive for cough, Negative for dyspnea on exertion, hemoptysis, orthopnea, pleurisy, shortness of breath, sputum production, wheezing. 11:21 Abdomen/GI: Positive for nausea, Negative for abdominal pain, vomiting, diarrhea, constipation, abdominal cramps, abdominal distension, anorexia. Exam: 11:17 Constitutional: This is a well developed, well nourished patient who is awake, alert, kb and in no acute distress. Head/Face: Normocephalic, atraumatic. ENT: Nares patent. No nasal discharge, no septal abnormalities noted. Tympanic membranes are normal and external auditory canals are clear. Oropharynx with no redness, swelling, or masses, exudates, or evidence of obstruction, uvula midline. Mucous membranes moist. Neck: Trachea midline, no thyromegaly or masses palpated, and no cervical lymphadenopathy. Supple, full range of motion without nuchal rigidity, or vertebral point tenderness. No Meningismus. Chest/axilla: Normal chest wall appearance and motion. Nontender with no deformity. No lesions are appreciated. Cardiovascular: Regular rate and rhythm with a normal S1 and S2. No gallops, murmurs, or rubs. Normal PMI, no JVD. No pulse deficits. Respiratory: Lungs have equal breath sounds bilaterally, clear to auscultation and percussion. No rales, rhonchi or wheezes noted. No increased work of breathing, no retractions or nasal flaring. Abdomen/GI: Soft, non-tender, with normal bowel sounds. No distension or tympany. No guarding or rebound. No evidence of tenderness throughout. Back: No spinal tenderness. No costovertebral tenderness. Full range of motion. Skin: Warm, dry with normal turgor. Normal color with no rashes, no lesions, and no evidence of cellulitis. MS/ Extremity: Pulses equal, no cyanosis. Neurovascular intact. Full, normal range of motion. Neuro: Awake and alert, GCS 15, oriented to person, place, time, and situation. Cranial nerves II-XII grossly intact. Motor strength 5/5 in all extremities. Sensory grossly intact. Cerebellar exam normal. Normal gait. Vital Signs: 08:45 BP 167 / 59; Pulse 60; Resp 17 S; Pulse Ox 97% on R/A; jl7 08:52 Temp 98.2; Weight 58.97 kg; Height 5 ft. 2 in. (157.48 cm); iw 10:04 BP 147 / 51; Pulse 70; Resp 16 S; Pulse Ox 97% on R/A; jl7 11:30 BP 162 / 67; Pulse 68; Resp 16 S; Pulse Ox 97% on R/A; jl7 08:52 Body Mass Index 23.78 (58.97 kg, 157.48 cm) iw MDM: 08:44 Patient medically screened. kb 09:00 Data reviewed: vital signs, nurses notes. kb 09:46 Data interpreted: Pulse oximetry: on room air is 97 %. Interpretation: normal. kb 10:00 Counseling: I had a detailed discussion with the patient and/or guardian regarding: the kb historical points, exam findings, and any diagnostic results supporting the discharge/admit diagnosis, lab results, radiology results, the need for further work-up and treatment in the hospital. 10:16 Physician consultation: Arben Martin DO was contacted at 10:10, regarding admission, kb to the telemetry unit. patient's condition, would like bolus of NS given to pt and then BMP repeated to see if pt can be discharged. 12:01 ED course: Electrolytes better after NS bolus. Pt looks better, only complains of kb nausea at this time. No abd tenderness or other abd complaints. . 10/13 08:52 Order name: CBC with Diff; Complete Time: 09:26 kb 10/13 08:52 Order name: Basic Metabolic Panel; Complete Time: 09:45 kb 10/13 08:52 Order name: Flu; Complete Time: 09:45 kb 10/13 08:52 Order name: Strep; Complete Time: 09:45 kb 10/13 09:16 Order name: Urine Dipstick--Ancillary (enter results); Complete Time: 09:45 eb 10/13 09:38 Order name: Throat Culture EDMS 10/13 08:52 Order name: Urine Dipstick-Ancillary (obtain specimen); Complete Time: 09:11 kb 10/13 08:52 Order name: Chest Pa And Lat (2 Views) XRAY; Complete Time: 09:55 kb 10/13 08:52 Order name: IV Start; Complete Time: 09:11 kb 10/13 11:12 Order name: BMP; Complete Time: 11:56 jl7 Administered Medications: 10:03 Drug: NS 0.9% 1000 ml Route: IV; Rate: 1000 ml; Site: right forearm; jl7 11:25 Follow up: Response: No adverse reaction; IV Status: Completed infusion; IV Intake: jl7 1000ml 11:29 Drug: Tylenol 650 mg Route: PO; jl7 12:00 Follow up: Response: No adverse reaction; Pain is decreased jl7 12:30 Drug: Zofran (Ondansetron) 4 mg Route: IVP; Site: right forearm; jl7 12:46 Follow up: Response: Medication administered at discharge. jl7 Disposition: 13:26 Co-signature as Attending Physician, Eleazar Tenorio MD I agree with the assessment and kdr plan of care. Disposition: 10/14/19 12:03 Discharged to Home. Impression: Nausea, Dehydration, Cough. - Condition is Stable. - Discharge Instructions: Cough, Adult, Tjud-la-Ldaw, Allergies, Afkh-[id number]-Dhbc, Nausea, Adult, [id number]. - Prescriptions for Zofran 4 mg Oral Tablet - take 1 tablet by ORAL route every 12 hours As needed; 20 tablet. - Medication Reconciliation Form, Thank You Letter, Antibiotic Education, Prescription Opioid Use form. - Follow up: Emergency Department; When: As needed; Reason: Worsening of condition. Follow up: Private Physician; When: 2 - 3 days; Reason: Recheck today's complaints, Continuance of care, Re-evaluation by your physician. Signatures: Dispatcher [employer] EDMS Karina Joaquin, ISELA-C WHEEL PRESS OPERATOR-Eleazar Carlin MD MD [facility] Priti Crawford RN RN Vicente Villatoro RN RN jl7 Corrections: (The following items were deleted from the chart) 11 11:15 Constitutional: Negative for fever, chills, and weight loss, Neck: Negative for kb injury, pain, and swelling, Cardiovascular: Negative for chest pain, palpitations, and edema, Abdomen/GI: Negative for abdominal pain, nausea, vomiting, diarrhea, and constipation, Back: Negative for injury and pain, MS/Extremity: Negative for injury and deformity, Skin: Negative for injury, rash, and discoloration, Neuro: Negative for headache, weakness, numbness, tingling, and seizure, kb 11:22 11:15 ENT: Positive for sore throat, kb kb 11: 11:15 Respiratory: Positive for wheezing, Negative for cough, dyspnea on exertion, kb hemoptysis, orthopnea, pleurisy, shortness of breath, sputum production, kb 12:47 12:03 10/14/2019 12:03 Discharged to Home. Impression: Nausea; Dehydration; Cough. jl7 Condition is Stable. Forms are Medication Reconciliation Form, Thank You Letter, Antibiotic Education, Prescription Opioid Use. Follow up: Emergency Department; When: As needed; Reason: Worsening of condition. Follow up: Private Physician; When: 2 - 3 days; Reason: Recheck today's complaints, Continuance of care, Re-evaluation by your physician. kb
[2019-10-14] MEDS ORDERED: ONDANSETRON 4 MG/2 ML VIAL ONE (12:31)
[2019-10-14 12:58] VITALS: O2SAT 97
[2019-10-14 12:59] VITALS: TEMP 98.2
[2019-10-14 13:01] VITALS: BP 162/67
== END 2019-10-14 12:47 | disposition home or self-care (01) ==
LOC: ER 08:35
DX: E86.0 Dehydration (principal); R11.0 Nausea; R05 Cough; Z88.6 Allergy status to analgesic agent; Z91.09 Other allergy status, other than to drugs and biological substances; Z88.8 Allergy status to other drugs, medicaments and biological substances; I10 Essential (primary) hypertension; E78.5 Hyperlipidemia, unspecified; E11.9 Type 2 diabetes mellitus without complications; K21.9 Gastro-esophageal reflux disease without esophagitis; Z86.73 Personal history of transient ischemic attack (TIA), and cerebral infarction without residual deficits
CPT/HCPCS: 96361; 87070; 85025; 80048 ×2; 36415; 87081; 81003; 87804 ×2; 71046; 96374; 99284; J7030; J2405

== ENCOUNTER 2019-11-09 06:49 | Emergency (ER) | payer OTHER ==
--- OUTSIDE RECORDS SUMMARY | 2019-11-09 06:53 | XMS REPORT ---
:1935 Author Organization [facility] t Address 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 diabetes Obstructive Obstructive Problem Active sleep apnea sleep apnea Overactive Overactive Problem Active bladder bladder [facility] Problem Active discharge discharge follow-up follow-up Hyperlipide Hyperlipide Problem Active nelson nelson Atheroscler Atheroscler Problem Active osis osis Allergic Allergic Problem Active rhinitis rhinitis History of History of Problem Active TIA TIA (transient (transient ischemic ischemic attack) attack) Renal cyst Renal cyst Problem Active Recurrent Recurrent Problem Active urinary urinary tract tract infection infection 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 GERD GERD Problem Active (gastroesop (gastroesop hageal hageal reflux reflux disease) disease) Hypertensio Hypertensio Problem Active n n Obesity Obesity Problem Active Chronic Chronic Problem Active a-fib a-fib Abnormal Abnormal Problem Active mammogram mammogram Chronic Chronic Problem Active fatigue fatigue Elevated Elevated Problem Active TSH TSH 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depression depression Stress at Stress at Problem Active home home Other Other Problem Active chronic chronic pain pain Mixed Mixed Problem Active stress and stress and urge urge urinary urinary incontinenc incontinenc e e Acquired Acquired Problem Active hypothyroid hypothyroid ism ism Memory Memory Problem Active change change Seizure Seizure Problem Active disorder disorder Seasonal Seasonal Problem Active allergic allergic rhinitis, rhinitis, unspecified unspecified trigger trigger 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, joints, unspecified unspecified osteoarthri osteoarthri tis type tis type History of History of Diagnosis Active recurrent recurrent UTI UTI (urinary (urinary tract tract infection) infection) Allergies, Adverse Reactions, Alerts Allergy Name Allergy Status Severity Reaction(s) Onset Inactive Treat ing Comments Type Date Date Clinician Nessoft Adverse Active Info Not Reaction Available Niacin Adverse Active Info Not Reaction Available Macrodantin Adverse Active Info Not Reaction Available Lisinopril Adverse Active Info Not Reaction Available Aspirin Adverse Active Info Not Reaction Available Nitrous oxide Adverse Active Info Not Reaction Available Iodine Adverse Active Info Not contrast dye Reaction Available Vicodin Adverse Active Info Not Reaction Available Medications Ordered Filled Start Stop Current Ordering Indication Dosage Frequency Signature Comments Components Medication Medication Date Date Medication? Clinician (SIG) Name Name Trimethopri Trimethopri 2020-0 2020- Yes Na Britt 1 tab let m m 2-25 03-24 00:00: 00:00 00 :00 Estradiol Estradiol 2018-0 Yes Na Britt as 7- directed 00:00: 00 HydrALAZINE HydrALAZINE Yes Na Britt as HCl HCl 5-14 directed 00:00: 00 Coreg Coreg Yes Na Britt not defined Omeprazole Omeprazole Yes Na Britt TAKE 1 CAPSULE BY MOUTH EVERY DAY Vitamin D3 Vitamin D3 Yes Na Britt 1 capsul e Crestor Crestor Yes Na Britt 1 EACH ONCE A DAY Magnesium Magnesium Yes Na Britt not defined Cyanocobala Cyanocobala Yes Na Britt 15 ml min min Tylenol Tylenol Yes Na Britt not Arthritis Arthritis defined Pain Pain Multivitami Multivitami Yes Na Britt not n n defined Rosuvastati Rosuvastati Yes Na Britt TAKE 1 n Calcium n Calcium TABLET BY MOUTH DAILY Sertraline Sertraline Yes Na Britt 1 tablet HCl HCl Levetiracet Levetiracet Yes Na Britt 1 tabl et am am Methenamine Methenamine Yes Na Britt 1 tabl et Hippurate Hippurate Levothyroxi Levothyroxi Yes Na Britt 1 tabl et ne Sodium ne Sodium in the morning on an empty stomach Vitamin Vitamin Yes Na Britt not B-12 B-12 defined Omeprazole Omeprazole Yes Na Britt 1 EACH ONCE A DAY Metformin Metformin Yes Na Britt 1 tablet HCl HCl with meals Plavix Plavix Yes Na Britt 1 tablet Eliquis Eliquis Yes Na Britt 1 tablet Amlodipine Amlodipine Yes Na Britt 1 tablet Besylate Besylate Cranberry Cranberry Yes Na Britt 1 capsule Concentrate Concentrate with yimi ls Carvedilol Carvedilol Yes Na Britt as directed Metformin Metformin Yes Na Britt TAKE 1 HCl HCl TABLET BY MOUTH TWICE DAILY Irbesartan Irbesartan Yes Na Britt 1 tablet Probiotic Probiotic Yes Na Britt not defined Vitamin E Vitamin E Yes Na Britt not defined Encounters Start End Encounter Admission Attending Care Care Encounter Date/Time Date/Time Type Type Clinicians Facility Department ID 2019-10-17 2019-10-17 [facility] [id number] 14:55:00 14:55:00 [facility] [facility] 2019-10-12 2019-10-12 [facility] [id number] 15:58:00 15:58:00 [facility] 2019-10-01 2019-10-01 [facility] [id number] 15:42:00 15:42:00 [facility] 2019-09-25 2019-09-25 [facility] [id number] 11:20:00 11:20:00 [facility] 2019-09-18 2019-09-18 [facility] [id number] 11:15:00 11:15:00 Specialty[facility]U [facility] 2019-09-14 2019-09-14 [facility] [id number] 11:32:00 11:32:00 [facility] 2019-09-04 2019-09-04 [facility] [id number] 11:20:00 11:20:00 [facility] 2019-09-04 2019-09-04 [facility] [id number] 10:00:00 10:00:00 Specialty/U Specialty/[facility] 2019-08-08 2019-08-08 [facility] [id number] 10:40:00 10:40:00 [facility] 2019-08-02 2019-08-02 [facility] [id number] 13:00:00 13:00:00 Specialty/U Specialty/U [facility] 2019-07-09 2019-07-09 [facility] [id number] 14:00:00 14:00:00 [facility] 2019-05-29 2019-05-29 [facility] [id number] 11:20:00 11:20:00 [facility] 2019-05-15 2019-05-15 [facility] [id number] 10:15:00 10:15:00 Specialty/U Specialty/U [facility] Clinic 2019-04-24 2019-04-24 [facility] [id number] 10:40:00 10:40:00 [facility] 2019-04-09 2019-04-09 [facility] [id number] 13:20:00 13:20:00 [facility] 2019-03-24 2019-03-24 [facility] [id number] 12:00:00 12:00:00 [facility] 2019-03-15 2019-03-15 [facility] [id number] 13:22:00 13:22:00 [facility] 2019-03-13 2019-03-13 [facility] [id number] 10:39:00 10:39:00 [facility] Medicine 2019-03-12 2019-03-12 [facility] [id number] 10:30:00 10:30:00 [facility] 2019-02-28 2019-02-28 [facility] [id number] 13:00:00 13:00:00 [facility] 2019-02-12 2019-02-12 [facility] [id number] 10:15:00 10:15:00 Specialty/U Specialty/U [facility]logy [facility]logy Clinic Clinic 2019-02-08 2019-02-08 [facility] [id number] 15:00:00 15:00:00 [facility] 2019-02-08 2019-02-08 [facility] [id number] 08:42:00 08:42:00 [facility] 2019-02-06 2019-02-06 [facility] [id number] 09:40:00 09:40:00 [facility] 2019-01-09 2019-01-09 [facility] [id number] 10:40:00 10:40:00 [facility] 2019-01-03 2019-01-03 [facility] [id number] 13:07:00 13:07:00 [facility] 2018-12-28 2018-12-28 [facility] [id number] 14:00:00 14:00:00 [facility] 2018-09-14 2018-09-14 [facility] [id number] 09:26:00 09:26:00 [facility] 2018-09-08 2018-09-08 [facility] [id number] 09:30:00 09:30:00 [facility] 2018-08-07 2018-08-07 [facility] [id number] 08:45:00 08:45:00 [facility] 2018-02-20 2018-02-20 [facility] [id number] 14:30:00 14:30:00 [facility] 2018-02-03 2018-02-03 [facility] [id number] 09:00:00 09:00:00 [facility] Results Test Description Test Time Test Comments Text Results Atomic Results Result Comments CT, CTANGIO 2019-05-01 10:58:00 Reason for FINAL REPORT PATIENT ID: BRAIN exam:->stroke [id number] CLINICAL HISTORY: TIA TECHNIQUE: Initially, noncontrast head [...] intact. There is no evidence for a ruby of Lawson proximal branch vessel occlusion. Mild [...] artery stenosis, unchanged. No evidence for a ruby of Lawson proximal branch vessel occlusion. Signed: Alexa Koch [facility] Verified Date/Time: 05/01/2019 10:58:29 Reading Location: [facility] C013V Neuro Reading Room , CAROTID, 2019-05-01 10:58:00 Reason for exam:->eval FINAL REPORT PATIENT ID: ANGIO for TIA [id number] CLINICAL HISTORY: TIA TECHNIQUE: Initially, noncontrast head [...] intact. There is no evidence for a ruby of Lawson proximal branch vessel occlusion. Mild [...] artery stenosis, unchanged. No evidence for a ruby of Lawson proximal branch vessel occlusion. Signed: Alexa Koch [facility] Verified Date/Time: 05/01/2019 10:58:29 Reading Location: [facility] C013V Neuro Reading Room C METABOLIC PANEL 2019-05-01 06:04:00 Test Item Value Reference Range Comments SODIUM (BEAKER) (test code = 133 meq/L 136-145 381) POTASSIUM (BEAKER) (test 4.3 meq/L 3.5-5.1 code = 379) CHLORIDE (BEAKER) (test code 104 meq/L 98-107 = 382) CO2 (BEAKER) (test code = 24 meq/L 22-29 355) BLOOD UREA NITROGEN (BEAKER) 8 mg/dL 7-21 (test code = 354) CREATININE (BEAKER) (test 0.63 mg/dL 0.57-1.25 code = 358) GLUCOSE RANDOM (BEAKER) 105 mg/dL 70-105 (test code = 652) CALCIUM (BEAKER) (test code 8.8 mg/dL 8.4-10.2 = 697) EGFR (BEAKER) (test code = 90 mL/min/1.73 sq m E STIMATED GFR IS NOT 1092) ACCURATE CREA TININE CLEARANCE IN PRE DICTING GLOMERULAR FILTR ATION RATE. ESTIMATED GFR IS NOT APPLICABLE FOR D IALYSIS PATIENTS. CBC (HEMOGRAM ONLY)2019-05-01 04:59:00 Test Item Value Reference Range Comments WHITE BLOOD CELL COUNT (BEAKER) (test code = 7.4 K/ L 3.5 -10.5 775) RED BLOOD CELL COUNT (BEAKER) (test code = 761) 3.56 M/ L 3.93-5.22 HEMOGLOBIN (BEAKER) (test code = 410) 11.3 GM/DL 11.2-15.7 HEMATOCRIT (BEAKER) (test code = 411) 33.9 % 34.1-44.9 MEAN CORPUSCULAR VOLUME (BEAKER) (test code = 95.2 fL 79 .4-94.8 753) MEAN CORPUSCULAR HEMOGLOBIN (BEAKER) (test code 31.7 pg 25.6-32.2 = 751) MEAN CORPUSCULAR HEMOGLOBIN CONC (BEAKER) (test 33.3 GM/DL 32.2-35.5 code = 752) RED CELL DISTRIBUTION WIDTH (BEAKER) (test code 12.0 % 11.7-14.4 = 412) PLATELET COUNT (BEAKER) (test code = 756) 170 K/CU MM 150-45 0 MEAN PLATELET VOLUME (BEAKER) (test code = 754) 9.6 fL 9.4-12.3 NUCLEATED RED BLOOD CELLS (BEAKER) (test code = 0 /100 WBC 0-0 413) TROPONIN [id number] 20:18:00 Test Item Value Reference Range Comments TROPONIN I (BEAKER) (test code = 397) < ng/mL 0.00-0.03 Troponin I (TnI) levels [...] neurological disease, and persistent tachyarrhythmia.MR, BRAIN, WITHOUT [id number] 19:07:00Reason for exam:->Ischemic Stroke EvaluationFINAL REPORT MR, BRAIN, WITHOUT CONTRAST INDICATION: Stroke, follow upIschemic Stroke Evaluation Technique: MRI of the brain utilizing axial T1, T2, FLAIR, GRE, DWI, sagittal T1;and postgadolinium axial, sagittal, and coronal T1- weighted images. COMPARISON: November 20, 2017 FINDINGS:Brain parenchyma [...] None. IMPRESSION: No acute infarct Signed: [facility] Verified Date/Time: 04/30/2019 19:07:03 Reading Location: [address] Neuro Reading Room HEMOGLOBIN [id number] 10:33:00 Test Item Value Reference Range Comments HEMOGLOBIN A1C (BEAKER) (test code = 368) 6.6 % 4.3-6. 1 FastingVITAMIN [id number] 09:00:00 Test Item Value Reference Range Comments VITAMIN B12 (BEAKER) (test code = 774) 654 pg/mL 213-816 Add on please to morning labsAdd on to morning labsTSH/FREE T4 IF INDICATED 2019-04-30 09:00:00 Test Item Value Reference Range Comments THYROID STIMULATING HORMONE (BEAKER) (test code 0.69 uIU/mL 0.35-4.94 = 772) Add on please to morning labsAdd on to morning labsBASIC METABOLIC PANEL 2019-04-30 07:30:00 Test Item Value Reference Range Comments SODIUM (BEAKER) (test 131 meq/L 136-145 code = 381) POTASSIUM (BEAKER) (test 4.2 meq/L 3.5-5.1 Specime n slightly code = 379) hemolyzed CHLORIDE (BEAKER) (test 99 meq/L 98-107 code = 382) CO2 (BEAKER) (test code = 23 meq/L 22-29 355) BLOOD UREA NITROGEN 10 mg/dL 7-21 (BEAKER) (test code = 354) CREATININE (BEAKER) (test 0.67 mg/dL 0.57-1.25 Specim en slightly code = 358) hemolyzed GLUCOSE RANDOM (BEAKER) 115 mg/dL 70-105 (test code = 652) CALCIUM (BEAKER) (test 8.8 mg/dL 8.4-10.2 code = 697) EGFR (BEAKER) (test code 84 mL/min/1.73 sq m EST IMATED GFR IS NOT = 1092) ACCURATE CREA TININE CLEARANCE IN PRE DICTING GLOMERULAR FILTR ATION RATE. ESTIMATED GFR IS NOT APPLICABLE F OR DIALYSIS PATIENT S. FastingLIPID [id number] 07:30:00 Test Item Value Reference Range Comments TRIGLYCERIDES (BEAKER) (test 57 mg/dL Spe cimen slightly hemolyzed code = 540) CHOLESTEROL (BEAKER) (test code 83 mg/dL Specimen slightly hemolyzed = 631) HDL CHOLESTEROL (BEAKER) (test 37 mg/dL code = 976) LDL CHOLESTEROL CALCULATED 35 mg/dL (BEAKER) (test code = 633) Triglyceride Reference Range: Low Risk <150 Borderline 150-199 High Risk 200-499 Very High Risk >=500Cholesterol Reference Range: Low Risk <200 Borderline 200-239 High Risk >240HDL Cholesterol Reference Range: Low Risk >=60 High Risk <40LDL Cholesterol Reference Range: Optimal <100 Near Optimal 100-129 Borderline 130-159 High 160-189 Very High >=190 FastingTROPONIN [id number] 07:28:00 Test Item Value Reference Range Comments TROPONIN I (BEAKER) (test code = 397) < ng/mL 0.00-0.03 Troponin I (TnI) levels [...] and persistent tachyarrhythmia.FastingCBC W/PLT COUNT & AUTO [id number] 05:43:00 Test Item Value Reference Range Comments WHITE BLOOD CELL COUNT (BEAKER) (test code = 7.9 K/ L 3.5 -10.5 775) RED BLOOD CELL COUNT (BEAKER) (test code = 761) 3.40 M/ L 3.93-5.22 HEMOGLOBIN (BEAKER) (test code = 410) 10.6 GM/DL 11.2-15.7 HEMATOCRIT (BEAKER) (test code = 411) 32.1 % 34.1-44.9 MEAN CORPUSCULAR VOLUME (BEAKER) (test code = 94.4 fL 79 .4-94.8 753) MEAN CORPUSCULAR HEMOGLOBIN (BEAKER) (test code 31.2 pg 25.6-32.2 = 751) MEAN CORPUSCULAR HEMOGLOBIN CONC (BEAKER) (test 33.0 GM/DL 32.2-35.5 code = 752) RED CELL DISTRIBUTION WIDTH (BEAKER) (test code 12.0 % 11.7-14.4 = 412) PLATELET COUNT (BEAKER) (test code = 756) 168 K/CU MM 150-45 0 MEAN PLATELET VOLUME (BEAKER) (test code = 754) 9.6 fL 9.4-12.3 NUCLEATED RED BLOOD CELLS (BEAKER) (test code = 0 /100 WBC 0-0 413) NEUTROPHILS RELATIVE PERCENT (BEAKER) (test code 57 % = 429) LYMPHOCYTES RELATIVE PERCENT (BEAKER) (test code 28 % = 430) MONOCYTES RELATIVE PERCENT (BEAKER) (test code = 12 % 431) EOSINOPHILS RELATIVE PERCENT (BEAKER) (test code 2 % = 432) BASOPHILS RELATIVE PERCENT (BEAKER) (test code = 0 % 437) NEUTROPHILS ABSOLUTE COUNT (BEAKER) (test code = 4.50 K/ L 1.56-6.13 670) LYMPHOCYTES ABSOLUTE COUNT (BEAKER) (test code = 2.23 K/ L 1.18-3.74 414) MONOCYTES ABSOLUTE COUNT (BEAKER) (test code = 0.98 K/ L 0 .24-0.36 415) EOSINOPHILS ABSOLUTE COUNT (BEAKER) (test code = 0.15 K/ L 0.04-0.36 416) BASOPHILS ABSOLUTE COUNT (BEAKER) (test code = 0.03 K/ L 0 .01-0.08 417) IMMATURE GRANULOCYTES-RELATIVE PERCENT (BEAKER) 0 % 0-1 (test code = 2801) NV, ANGIOGRAM, [id number] 11:37:00Reason for exam:->TIAsFINAL REPORT November 22, 2017 [...] guidance and strict sterile technique a 4 Turkmen femoral sheath was inserted into the right common femoral artery. Through the sheath a 4 Turkmen vertebral catheter was then advanced over the [...] over the intracranial carotid circulation demonstrates diminished a ntegrade with diffuse atherosclerotic changes particularly involving the [...] demonstrates a critical supraclinoid ICA stenosis of ajxgbsyyljfce08%. There is delayed antegrade flow. The venous [...] MDReport Verified Date/Time: 11/22/2017 11:37:47 Reading Location: [facility] Y018 Neuro Angio Reading Room POCT- GLUCOSE [id number] 07:43:00 Test Item Value Reference Range Comments POC-GLUCOSE METER (BEAKER) 149 mg/dL 70-110 TESTE D AT [facility] [address] [facility] (test code = 1538) [facility] [address] [id number] 06:46:00 Test Item Value Reference Range Comments MAGNESIUM (BEAKER) (test code = 627) 2.0 mg/dL 1.6-2.6 BASIC METABOLIC [id number] 06:46:00 Test Item Value Reference Range Comments SODIUM (BEAKER) (test 133 meq/L 136-145 code = 381) POTASSIUM (BEAKER) (test 4.4 meq/L 3.5-5.1 code = 379) CHLORIDE (BEAKER) (test 99 meq/L 98-107 code = 382) CO2 (BEAKER) (test code = 25 meq/L 22-29 355) BLOOD UREA NITROGEN 11 mg/dL 7-21 (BEAKER) (test code = 354) CREATININE (BEAKER) (test 0.65 mg/dL 0.57-1.25 code = 358) GLUCOSE RANDOM (BEAKER) 162 mg/dL 70-105 (test code = 652) CALCIUM (BEAKER) (test 9.5 mg/dL 8.4-10.2 code = 697) EGFR (BEAKER) (test code 87 mL/min/1.73 sq m EST IMATED GFR IS NOT = 1092) ACCURATE CREA TININE CLEARANCE IN PRE DICTING GLOMERULAR FILTR ATION RATE. ESTIMATED GFR IS NOT APPLICABLE F OR DIALYSIS PATIENT S. [id number] 06:33:00 Test Item Value Reference Range Comments PROTIME (BEAKER) (test code = 759) 15.5 seconds 11.7-14.7 INR (BEAKER) (test code = 370) 1.2 <=5.9 PARTIAL THROMBOPLASTIN TIME (BEAKER) (test code 35.9 seconds 22.5-36.0 = 760) RECOMMENDED COUMADIN/WARFARIN INR THERAPY RANGESSTANDARD DOSE: 2.0 - 3.0 Includes: PROPHYLAXIS forvenous thrombosis, systemic embolization; TREATMENT for venous thrombosis and/or pulmonary embolus.HIGH RISK: Target INR is 2.5-3.5 for patients with mechanical heart valves.POCT-GLUCOSE [id number] 06:22:00 Test Item Value Reference Range Comments POC-GLUCOSE METER (BEAKER) 161 mg/dL 70-110 TESTE D AT [address] (test code = 1538) [place] [address]30 POCT-GLUCOSE [id number] 02:08:00 Test Item Value Reference Range Comments POC-GLUCOSE METER (BEAKER) 182 mg/dL 70-110 TESTE D AT [address] (test code = 1538) [place] [address]30 POCT-GLUCOSE [id number] 19:30:00 Test Item Value Reference Range Comments POC-GLUCOSE METER (BEAKER) 146 mg/dL 70-110 TESTE D AT [address] (test code = 1538) [place] [address], CAROTID, [id number] 14:54:00Please include aortaFINAL REPORT CT angiogram of [...] of the distal left common carotid, and modera te narrowing (50-60%) of the left ICA origin. [...] the left ICA terminus. There is also wudd-ql-udlmdzor multifocal narrowing of the right carotid siphon. [...] of the right carotid siphon. Signed: Sylvia Mcdanielsort Verified Date/Time: 11/21/2017 14:54:26 Reading Location: [facility] Radiology Reading Room [facility] [id number] 14:54:00FINAL REPORT CT angiogram of the upper [...] adjacent bone and venous opacification. This exam wa s performed according to our departmental dose optimization program which includes automated exposure control, adjustment of the mA and/or kV according to patient's size and/or use of iterative reconstructive technique. There is mild calcification at the aortic arch and great vessel origins, without he modynamically significant stenosis. Mild narrowing is noted at [...] of the distal left common carotid, and modera te narrowing (50-60%) of the left ICA origin. [...] the left ICA terminus. There is also togp-yu-lfqnljok multifocal narrowing of the right carotid siphon. [...] Mcdaniels Verified Date/Time: 11/21/2017 14:54:26 Reading Location: [facility] Radiology Reading Room POCT-GLUCOSE [id number] 11:50:00 Test Item Value Reference Range Comments POC-GLUCOSE METER (BEAKER) 153 mg/dL 70-110 TESTE D AT [facility] [address] [facility] (test code = 1538) [facility] [address] POCT-GLUCOSE [id number] 08:08:00 Test Item Value Reference Range Comments POC-GLUCOSE METER (BEAKER) 125 mg/dL 70-110 TESTE D AT [facility] [address] (test code = 1538) [place] [address] [id number] 06:43:00 Test Item Value Reference Range Comments MAGNESIUM (BEAKER) (test code = 627) 2.1 mg/dL 1.6-2.6 BASIC METABOLIC [id number] 06:43:00 Test Item Value Reference Range Comments SODIUM (BEAKER) (test 136 meq/L 136-145 code = 381) POTASSIUM (BEAKER) (test 4.0 meq/L 3.5-5.1 code = 379) CHLORIDE (BEAKER) (test 101 meq/L 98-107 code = 382) CO2 (BEAKER) (test code = 27 meq/L 22-29 355) BLOOD UREA NITROGEN 12 mg/dL 7-21 (BEAKER) (test code = 354) CREATININE (BEAKER) (test 0.68 mg/dL 0.57-1.25 code = 358) GLUCOSE RANDOM (BEAKER) 122 mg/dL 70-105 (test code = 652) CALCIUM (BEAKER) (test 9.5 mg/dL 8.4-10.2 code = 697) EGFR (BEAKER) (test code 83 mL/min/1.73 sq m EST IMATED GFR IS NOT = 1092) ACCURATE CREA TININE CLEARANCE IN PRE DICTING GLOMERULAR FILTR ATION RATE. ESTIMATED GFR IS NOT APPLICABLE F OR DIALYSIS PATIENT S. TSH/FREE T4 IF [id number] 22:12:00 Test Item Value Reference Range Comments THYROID STIMULATING HORMONE (BEAKER) (test code 4.66 uIU/mL 0.35-4.94 = 772) [id number] 21:54:00 Test Item Value Reference Range Comments MAGNESIUM (BEAKER) (test code = 627) 2.0 mg/dL 1.6-2.6 BASIC METABOLIC [id number] 21:54:00 Test Item Value Reference Range Comments SODIUM (BEAKER) (test 134 meq/L 136-145 code = 381) POTASSIUM (BEAKER) (test 4.1 meq/L 3.5-5.1 code = 379) CHLORIDE (BEAKER) (test 101 meq/L 98-107 code = 382) CO2 (BEAKER) (test code = 24 meq/L 22-29 355) BLOOD UREA NITROGEN 11 mg/dL 7-21 (BEAKER) (test code = 354) CREATININE (BEAKER) (test 0.65 mg/dL 0.57-1.25 code = 358) GLUCOSE RANDOM (BEAKER) 126 mg/dL 70-105 (test code = 652) CALCIUM (BEAKER) (test 9.5 mg/dL 8.4-10.2 code = 697) EGFR (BEAKER) (test code 87 mL/min/1.73 sq m EST IMATED GFR IS NOT = 1092) ACCURATE CREA TININE CLEARANCE IN PRE DICTING GLOMERULAR FILTR ATION RATE. ESTIMATED GFR IS NOT APPLICABLE F OR DIALYSIS PATIENT S. LIPID [id number] 21:54:00 Test Item Value Reference Range Comments TRIGLYCERIDES (BEAKER) (test code = 540) 70 mg/dL CHOLESTEROL (BEAKER) (test code = 631) 101 mg/dL HDL CHOLESTEROL (BEAKER) (test code = 976) 39 mg/dL LDL CHOLESTEROL CALCULATED (BEAKER) (test code = 48 mg/dL 633) Triglyceride Reference Range: Low Risk <150 Borderline 150-199 High Risk 200-499 Very High Risk >=500Cholesterol Reference Range: Low Risk <200 Borderline 200-239 High Risk >240HDL Cholesterol Reference Range: Low Risk >=60 High Risk <40LDL Cholesterol Reference Range: Optimal <100 Near Optimal 100-129 Borderline 130-159 High 160-189 Very High >=190POCT-GLUCOSE [id number] 21:35:00 Test Item Value Reference Range Comments POC-GLUCOSE METER (BEAKER) 128 mg/dL 70-110 TESTE D AT [facility] [address] (test code = 1538) [facility] [address] POCT-GLUCOSE [id number] 17:55:00 Test Item Value Reference Range Comments POC-GLUCOSE METER (BEAKER) 113 mg/dL 70-110 TESTE D AT [place] [id number] (test code = 1538) [facility] [address] POCT-GLUCOSE [id number] 12:32:00 Test Item Value Reference Range Comments POC-GLUCOSE METER (BEAKER) 120 mg/dL 70-110 TESTE D AT [facility] [address] (test code = 1538) [facility] 77 030 MR, MRA, BRAIN, WITHOUT [id number] 11:33:00Reason for exam:->Ischemic Stroke EvaluationFINAL REPORT MRA Head and Neck CLINICAL HISTORY: CVA TECHNIQUE: MRA of the head utilizing 3-D ffrl-rv-wbmbna technique, with 3-D reconstructions. MRA of the neck utilizing 2-D and 3-D wnjq-de-tgyunc technique, with 3-D reconstructions. COMPARISON: None FINDINGS: [...] There is no other evidence for a ruby of Lawson proximal branch vessel occlusion. There is a severe stenosis of the proximal left posterior cerebral artery. There is no hemodynamically significant stenosis of the proximal right internal carotid artery by NASCET criteria. There is a severe appearing stenosis of the right internal carotid artery siphons. There is an tegrade flow in the vertebral arteries in the [...] Koch MDReport Verified Date/Time: 11/20/2017 11:33:14 Reading Location: [address] Neuro Reading Room MR, MRA, NECK, WITHOUT IV [id number] 11:33:00Reason for exam:->Ischemic Stroke EvaluationFINAL REPORT MRA Head and Neck CLINICAL HISTORY: CVA TECHNIQUE: MRA of the head utilizing 3-D tyok-uh-weqzks technique, with 3-D reconstructions. MRA of the neck utilizing 2- D and 3-D cpby-st-jqirmd technique, with 3-D reconstructions. COMPARISON: None FINDINGS: There is asymmetric decreased intensity of flow related enhancement throughout the left common and internal carotid artery. There is a high-grade stenosis of the proximal left internal carotid artery, although exact pooja ntification is difficult. Additionally, there is a severe appearing stenosis of the left internal carotid artery siphon, with near complete signal dropout in the paraclinoid region. There is diminishedintensity of flow related enhancement throughout the left middle cerebral artery without evidence ofa proximal branch vessel occlusion. There is no other evidence for a ruby of Lawson proximal branch vessel occlusion. There is a severe stenosis of the proximal left posterior cerebral artery. There is no hemodynamically significant stenosis of the proximal right internal carotid artery by NASCET criteria. There is a severe appearing stenosis of the right internal carotid artery siphons. There is an tegrade flow in the vertebral arteries in the [...] internal carotid artery siphon. Signed: Alexa Koch MDRort Verified Date/Time: 11/20/2017 11:33:14 Reading Location: [address] Neuro Reading Room MR, BRAIN, WITHOUT [id number] 11:05:00Reason for exam:->Ischemic Stroke EvaluationFINAL REPORT MRI [...] asymmetric meningitis would be considered atypical. Clinical correl ation is requested. Signed: Alexa Koch MDReport Verified Date/Time: 11/20/2017 11:05:05 Reading Location: [facility] B1 C013V Neuro Reading Room HEMOGLOBIN [id number] 09:08:00 Test Item Value Reference Range Comments HEMOGLOBIN A1C (BEAKER) (test code = 368) 6.1 % 4.3-6. 1 POCT-GLUCOSE [id number] 08:27:00 Test Item Value Reference Range Comments POC-GLUCOSE METER (BEAKER) 125 mg/dL 70-110 TESTE D AT [address] (test code = 1538) [facility] 77 030 TSH/FREE T4 IF [id number] 07:47:00 Test Item Value Reference Range Comments THYROID STIMULATING HORMONE (BEAKER) (test code 5.97 uIU/mL 0.35-4.94 = 772) VITAMIN [id number] 07:44:00 Test Item Value Reference Range Comments VITAMIN B12 (BEAKER) (test code = 774) 857 pg/mL 213-816 CBC W/PLT COUNT & AUTO [id number] 06:47:00 Test Item Value Reference Range Comments WHITE BLOOD CELL COUNT (BEAKER) (test code = 8.3 K/ L 3.5 -10.5 775) RED BLOOD CELL COUNT (BEAKER) (test code = 761) 4.11 M/ L 3.93-5.22 HEMOGLOBIN (BEAKER) (test code = 410) 13.4 GM/DL 11.2-15.7 HEMATOCRIT (BEAKER) (test code = 411) 39.7 % 34.1-44.9 MEAN CORPUSCULAR VOLUME (BEAKER) (test code = 96.6 fL 79 .4-94.8 753) MEAN CORPUSCULAR HEMOGLOBIN (BEAKER) (test code 32.6 pg 25.6-32.2 = 751) MEAN CORPUSCULAR HEMOGLOBIN CONC (BEAKER) (test 33.8 GM/DL 32.2-35.5 code = 752) RED CELL DISTRIBUTION WIDTH (BEAKER) (test code 12.1 % 11.7-14.4 = 412) PLATELET COUNT (BEAKER) (test code = 756) 209 K/CU MM 150-45 0 MEAN PLATELET VOLUME (BEAKER) (test code = 754) 9.7 fL 9.4-12.3 NUCLEATED RED BLOOD CELLS (BEAKER) (test code = 0 /100 WBC 0-0 413) NEUTROPHILS RELATIVE PERCENT (BEAKER) (test code 49 % = 429) LYMPHOCYTES RELATIVE PERCENT (BEAKER) (test code 35 % = 430) MONOCYTES RELATIVE PERCENT (BEAKER) (test code = 12 % 431) EOSINOPHILS RELATIVE PERCENT (BEAKER) (test code 4 % = 432) BASOPHILS RELATIVE PERCENT (BEAKER) (test code = 1 % 437) NEUTROPHILS ABSOLUTE COUNT (BEAKER) (test code = 4.02 K/ L 1.56-6.13 670) LYMPHOCYTES ABSOLUTE COUNT (BEAKER) (test code = 2.89 K/ L 1.18-3.74 414) MONOCYTES ABSOLUTE COUNT (BEAKER) (test code = 0.95 K/ L 0 .24-0.36 415) EOSINOPHILS ABSOLUTE COUNT (BEAKER) (test code = 0.35 K/ L 0.04-0.36 416) BASOPHILS ABSOLUTE COUNT (BEAKER) (test code = 0.04 K/ L 0 .01-0.08 417) IMMATURE GRANULOCYTES-RELATIVE PERCENT (BEAKER) 0 % 0-1 (test code = 2801) POCT-GLUCOSE [id number] 22:09:00 Test Item Value Reference Range Comments POC-GLUCOSE METER (BEAKER) 130 mg/dL 70-110 TESTE D AT [facility] [address] (test code = 1538) [facility] 77 030
--- OUTSIDE RECORDS SUMMARY | 2019-11-09 06:54 | XMS REPORT ---
[...] Problem Type Condition Code Onset Dates Condition Statu s Assessment Weakness R53.1 Active Assessment Hyponatremia E87.1 [...] fatigue R53.82 Active Problem Acquired hypothyroidism E03.9 Acti ve Problem Mixed stress and urge urinary N39.46 Active incontinence Problem Obesity E66.9 Active Problem GERD (gastroesophageal reflux K21.9 Active disease) Problem Seizure disorder G40.909 Active Problem Obstructive sleep apnea G47.33 Acti ve Problem Stress at home F43.9 Active Problem Elevated TSH R79.89 Active Problem Other chronic pain G89.29 Active Problem Memory change R41.3 Active Problem Hyperlipidemia E78.5 Active Problem Abnormal mammogram R92.8 Active Problem Hypertension I10 Active Problem Allergic rhinitis J30.9 Active Problem Other speech disturbance R47.89 Act marty Problem Stenosis of left carotid artery I65.22 Active Problem Type 2 diabetes E11.9 Active Problem 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 Active Medications Medication Code Code Instructions Start End Status Dosage System Date Date Toviaz [facility] 35323106632 8 MG Orally Active 1 tablet Once a day Valsartan [facility] 40088509575 160 MG Orally Active 1 ta blet Once a day Tylenol Arthritis NDC 0 Active not de fined Pain Metformin HCl [facility] 47597918093 500 MG Orally Active 1 tablet with Twice a day meals Estradiol [facility] 26066278911 0.1 MG/GM January Active as direc nika Vaginal Two 22, times a Week 2018 Probiotic [facility] 49830-78559 Active not define d Cranberry [facility] 03048-86394 Active not define d Concentrate Bactrim DS [facility] 22511215508 800-160 MG December Active 1 tabl et Orally Twice a 2018 Cyanocobalamin [facility] [address]-71 1000 MCG/15ML Activ e 15 ml Orally Once a day HydrALAZINE HCl [facility] 97177515749 100 MG Orally December 05, Active as directed Three times a 2017 day Eliquis [facility] 94157888609 5 MG Orally Active 1 tablet twice a day Omeprazole [facility] 14267887323 40 Active TAKE 1 CAPSULE BY MOUTH EVERY DAY Levothyroxine [facility] [address]-45 Active not defined Sodium Verapamil HCl [facility] [address]-35 Active not defined Irbesartan [facility] 80627439868 150 MG Orally Active 1 t ablet Once a day Sertraline HCl [facility] 37749192511 25 Orally Once Active 1 tablet a day Bactrim DS [facility] 66825759262 800-160 MG January Active 1 tabl et Orally Twice a 2017 Multivitamin [facility] 64837-07527 Active not def ined Sertraline HCl [facility] 42336691828 25 MG Orally Active 1 tablet Once a day Metformin HCl [facility] 61028976836 500 Active TAKE 1 TABLET BY MOUTH TWICE DAILY Vitamin B-12 [facility] 34433-61285 Active not def ined Levetiracetam [facility] 20659584432 250 MG Orally Active 1 tablet every 12 hrs Amlodipine ND 56218029378 10 MG Orally Active 1 ta blet Besylate Once a day Magnesium ND 0 Active not defined HydrALAZINE HCl [facility] 29930847529 100 MG Orally Active 1 tablet with Three times a food day Carvedilol ND 95821278402 25 MG Orally Active as d irected Vitamin E [facility] 20861-14187 Active not define d Coreg ND 65979829688 25 MG Orally Active not def ined Vitamin D3 [facility] 70547900549 1000 UNIT Active 1 capsu le Orally Once a day Ranitidine [facility] 95466891242 Active not defin ed Rosuvastatin [facility] 20122685531 40 Active TAKE 1 TABLET Calcium BY MOUTH DAILY Plavix [facility] 02130904900 75 MG Orally Active 1 table t Once a day Omeprazole [facility] 75682553436 40 MG orally Active 1 EA CH ONCE A daily in AM DAY Fluconazole [facility] 04804937917 150 MG Orally Sep 15, Active 1 tablet one tab a week 2019 today and may repeat one tab in 1 week if no improvement Crestor [facility] 89829065086 40 MG Active 1 EACH ONCE A DAY Results No Known Results Summary Purpose eClinicalWorks Submission
--- OUTSIDE RECORDS SUMMARY | 2019-11-09 06:54 | XMS REPORT ---
[...] Code Onset Dates Condition Statu s Assessment Recurrent UTI N39.0 Active Assessment Lower [...] Active disease) Problem Obstructive sleep apnea G47.33 Acti ve Problem Acquired hypothyroidism E03.9 Acti ve Problem Overactive bladder N32.81 Active Problem Mild depression F32.0 Active Problem Elevated TSH R79.89 Active Problem Memory change R41.3 Active Problem Stress at home F43.9 Active Problem Allergic rhinitis J30.9 Active Problem Hyperlipidemia E78.5 Active Problem Obesity E66.9 Active Problem Hypertension I10 Active Problem Type 2 diabetes E11.9 Active Problem Other speech disturbance R47.89 Act marty Problem Chronic a-fib I48.2 Active Problem Abnormal mammogram R92.8 Active Medications Medication Code Code Instructions Start End Status Dosage System Date Date Magnesium NDC 0 Active not defined Ranitidine NDC 0 Active not defined Levothyroxine NDC [address]-93 Active not defined Sodium Vitamin B-12 [facility] 90481-64985 Active not def ined Metformin HCl [facility] 20634654824 500 MG Orally Active 1 tablet with Twice a day meals Sertraline HCl [facility] 84898500318 25 Orally Once Active 1 tablet a day Bactrim DS [facility] 65721219142 800-160 MG December Active 1 tabl et Orally Twice a 2018 Vitamin E [facility] 99394-61920 Active not define d Cranberry [facility] 04064-96197 Active not define d Concentrate Rosuvastatin [facility] 74247863295 40 Active TAKE 1 TABLET Calcium BY MOUTH DAILY Cyanocobalamin [facility] [address]-30 1000 MCG/15ML Activ e 15 ml Orally Once a day Tylenol Arthritis ND 0 Active not de fined Pain Valsartan [facility] 18882042157 160 MG Orally Active 1 ta blet Once a day Bactrim DS [facility] 74479233843 800-160 MG January Active 1 tabl et Orally Twice a 2017 Crestor [facility] 39213871789 40 MG Active 1 EACH ONCE A DAY Multivitamin [facility] 03951-58513 Active not def ined Probiotic [facility] 90908-29659 Active not define d Plavix [facility] 12291154290 75 MG Orally Active 1 table t Once a day HydrALAZINE HCl [facility] 44860053313 100 MG Orally December 05, Active as directed Three times a 2017 day Toviaz [facility] 65555483092 8 MG Orally Active 1 tablet Once a day Verapamil HCl [facility] [address]-46 Active not defined Omeprazole [facility] 99434663036 40 Active TAKE 1 CAPSULE BY MOUTH EVERY DAY Fluconazole [facility] 15614478617 150 MG Orally Sep 15, Active 1 tablet one tab a week 2018 today and may repeat one tab in 1 week if no improvement Estradiol [facility] 47064106903 0.1 MG/GM January Active as direc nika Vaginal Two , times a Week 2018 Metformin HCl [facility] 30593868853 500 Active TAKE 1 TABLET BY MOUTH TWICE DAILY Omeprazole [facility] 95053231494 40 MG orally Active 1 EA CH ONCE A daily in AM DAY Eliquis [facility] 24401009377 5 MG Orally Active 1 tablet twice a day Sertraline HCl [facility] 31872432648 25 MG Orally Active 1 tablet Once a day Carvedilol [facility] 58640811395 25 MG Orally Active as d irected Vitamin D3 [facility] 36085791325 1000 UNIT Active 1 capsu le Orally Once a day Amlodipine [facility] 89795227610 10 MG Orally Active 1 ta blet Besylate Once a day Coreg [facility] 20630679199 25 MG Orally Active not def ined HydrALAZINE HCl [facility] 96043008090 100 MG Orally Active 1 tablet with Three times a food day Irbesartan [facility] 93297916929 150 MG Orally Active 1 t ablet Once a day Results No Known Results Summary Purpose eClinicalWorks Submission
--- OUTSIDE RECORDS SUMMARY | 2019-11-09 06:55 | XMS REPORT ---
:1935 Author Organization eClinicalWorks Care Team Providers Name Role Phone EsauCailincy Provider Role Unavailable Allergies, Adverse Reactions, Alerts [...] Code Onset Dates Condition Statu s Assessment Lower urinary tract symptoms (LUTS) R39.9 [...] Status Dosage System Date Date Vitamin B-12 NDC 18421-33180 Active not defined Levothyroxine [facility] 23191372343 125 MCG Orally Active 1 tablet Sodium Once a day in the morning on an empty stomach Crestor [facility] 08323635542 40 MG Active 1 EACH ONCE A DAY Estradiol [facility] 83642045037 0.1 MG/GM January Active as Vaginal Two 22, directed times a Week 2018 Irbesartan [facility] 22872039879 150 MG Orally Active 1 t ablet Once a day Cyanocobalamin [facility] [address]-50 1000 MCG/15ML Activ e 15 ml Orally Once a day Methenamine [facility] 53315505398 1 GM Orally Aug 02September Active 1 ta blet Hippurate Twice a day 2019 Probiotic [facility] 01939973199 - Orally Active not defined Eliquis [facility] 10488586085 5 MG Orally Active 1 tablet twice a day Vitamin E [facility] 41122979529 400 UNIT Active not Orally defined HydrALAZINE HCl [facility] 64716626212 100 MG Orally Active 1 tablet Three times a with food day Coreg [facility] 24654082991 25 MG Orally Active not defined Tylenol Arthritis ND 0 Active not Pain defined Levetiracetam [facility] 87638292502 250 MG Orally Active 1 tablet every 12 hrs Cranberry [facility] 61906-53141 425 MG Orally Active 1 ca psule Concentrate with meals Multivitamin [facility] 01062-79331 Active not defined HydrALAZINE HCl [facility] 43693921670 100 MG Orally December 05, Active as Three times a 2017 directed day Metformin HCl [facility] 85286294090 500 MG Orally Active 1 tablet Twice a day with meals Plavix [facility] 19732046313 75 MG Orally Active 1 table t Once a day Omeprazole [facility] 05739467150 40 Active TAKE 1 CAPSULE BY MOUTH EVERY DAY Omeprazole [facility] 00412603803 40 MG orally Active 1 EA CH daily in AM ONCE A DAY Sertraline HCl [facility] 91238174581 25 MG Orally Active 1 tablet Once a day Carvedilol [facility] 24531864003 25 MG Orally Active as directed Magnesium [facility] 64691868210 500 MG Orally Active not defined Vitamin D3 [facility] 98384869547 1000 UNIT Active 1 capsu le Orally Once a day Bactrim [facility] 33525081385 400-80 MG Aug 02, Aug 07, Active 1 tablet Orally BID 2019 2019 Metformin HCl [facility] 89408500942 500 Active TAKE 1 TABLET BY MOUTH TWICE DAILY Rosuvastatin [facility] 85251095406 40 Active TAKE 1 Calcium TABLET BY MOUTH DAILY Amlodipine [facility] 37338518423 10 MG Orally Active 1 ta blet Besylate Once a day Results No Known Results Summary Purpose eClinicalWorks Submission
--- OUTSIDE RECORDS SUMMARY | 2019-11-09 06:55 | XMS REPORT ---
:1935 Author Organization eClinicalWorks Care Team Providers Name Role Phone Britt, Na Provider Role Unavailable Allergies No Known Allergies Problems Problem Type Condition Code Onset Dates Condition Statu s Assessment Memory change R41.3 Active Assessment Chronic a-fib I48.2 Active Assessment Hyperlipidemia E78.5 Active Assessment Mild depression F32.0 Active Assessment Acquired hypothyroidism E03.9 Acti ve Assessment Hypertension I10 Active Assessment Type 2 [...] R92.8 Active Assessment Positive colorectal cancer R19.5 A ctive screening using Cologuard test Problem Hypertension I10 Active Assessment Chronic fatigue R53.82 Active Problem Allergic rhinitis J30.9 Active Problem Other speech disturbance R47.89 Act marty Problem Stenosis of left carotid artery I65.22 Active Problem Type 2 diabetes E11.9 Active Problem 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 Active Medications Medication Code Code Instructions Start End Status Dosage System Date Date Levothyroxine [facility] 74234872597 125 MCG Orally Active 1 tablet Sodium Once a day in the morning on an empty stomach Cranberry [facility] 09[address]-18332 425 MG Orally Active 1 ca psule Concentrate with meals Plavix [facility] 40667788287 75 MG Orally Active 1 table t Once a day Eliquis [facility] 15182242875 5 MG Orally Active 1 tablet twice a day Rosuvastatin [facility] 89447682099 40 Active TAKE 1 Calcium TABLET BY MOUTH DAILY Levetiracetam [facility] 75919094805 250 MG Orally Active 1 tablet every 12 hrs Tylenol Arthritis ND 0 Active not Pain defined Vitamin B-12 [facility] 23498-65923 Active not defined Estradiol [facility] 22791076355 0.1 MG/GM January Active as Vaginal Two 22, directed times a Week 2018 Irbesartan [facility] 92840491733 150 MG Orally Active 1 t ablet Once a day Metformin HCl [facility] 17670459075 500 MG Orally Active 1 tablet Twice a day with meals Amlodipine [facility] 07909723885 10 MG Orally Active 1 ta blet Besylate Once a day Carvedilol [facility] 57893723453 25 MG Orally Active as directed Omeprazole [facility] 40113036891 40 MG orally Active 1 EA CH daily in AM ONCE A DAY Sertraline HCl [facility] 78962838148 25 MG Orally Active 1 tablet Once a day HydrALAZINE HCl [facility] 66784671254 100 MG Orally Active 1 tablet Three times a with food day HydrALAZINE HCl [facility] 97832016790 100 MG Orally December 05, Active as Three times a 2017 directed day Cyanocobalamin [facility] [address]-60 1000 MCG/15ML Activ e 15 ml Orally Once a day Omeprazole [facility] 05938097529 40 Active TAKE 1 CAPSULE BY MOUTH EVERY DAY Crestor [facility] 42686202125 40 MG Active 1 EACH ONCE A DAY Vitamin E [facility] 27073632750 400 UNIT Orally Active no t defined Coreg [facility] 31155359698 25 MG Orally Active not defined Vitamin D3 [facility] 72393959220 1000 UNIT Active 1 capsu le Orally Once a day Metformin HCl [facility] 90805582843 500 Active TAKE 1 TABLET BY MOUTH TWICE DAILY Multivitamin [facility] 13689-03790 Active not defined Probiotic [facility] 03313768410 - Orally Active not defined Magnesium [facility] 33573564083 500 MG Orally Active not defined Results No Known Results Summary Purpose eClinicalWorks Submission
--- OUTSIDE RECORDS SUMMARY | 2019-11-09 06:56 | XMS REPORT ---
[...] Code Onset Dates Condition Statu s Assessment Stress at home F43.9 Active Assessment Positive colorectal cancer R19.5 A ctive screening using Cologuard test Assessment Acquired hypothyroidism E03.9 Acti ve Assessment Weakness R53.1 Active Assessment Chronic fatigue R53.82 Active Problem Chronic a-fib I48.2 Active Problem Overactive bladder N32.81 Active Problem Obstructive sleep apnea G47.33 Acti ve Problem GERD (gastroesophageal reflux K21.9 Active disease) [...] change R41.3 Active Problem Acquired hypothyroidism E03.9 Acti ve [...] I65.22 Active Problem Other speech disturbance R47.89 Act marty Medications Medication Code Code Instructions Start End Status Dosage System Date Date Eliquis [facility] 55029305631 5 MG Orally Active 1 tablet twice a day Omeprazole [facility] 85030362442 40 MG orally Active 1 EA CH daily in AM ONCE A DAY Levetiracetam [facility] 60649948074 250 MG Orally Active 1 tablet every 12 hrs Tylenol Arthritis ND 0 Active not Pain defined Multivitamin [facility] 78252-77967 Active not defined Rosuvastatin [facility] 21577785598 40 Active TAKE 1 Calcium TABLET BY MOUTH DAILY Sertraline HCl [facility] 99712782118 25 MG Orally Active 1 tablet Once a day Crestor [facility] 48425639028 40 MG Active 1 EACH ONCE A DAY Methenamine [facility] 99209479236 1 GM Orally Aug 02September Active 1 ta blet Hippurate Twice a day 2019 Levothyroxine [facility] 62304718684 125 MCG Orally Active 1 tablet Sodium Once a day in the morning on an empty stomach Cranberry [facility] 60334-62839 425 MG Orally Active 1 ca psule Concentrate with meals Probiotic [facility] 22963226432 - Orally Active not defined HydrALAZINE HCl [facility] 21069188213 100 MG Orally Active 1 tablet Three times a with food day Coreg [facility] 46697703705 25 MG Orally Active not defined HydrALAZINE HCl [facility] 53101139885 100 MG Orally December 05, Active as Three times a 2017 directed day Vitamin D3 [facility] 76733869275 1000 UNIT Active 1 capsu le Orally Once a day Metformin HCl [facility] 17280020950 500 MG Orally Active 1 tablet Twice a day with meals Metformin HCl [facility] 58582042928 500 Active TAKE 1 TABLET BY MOUTH TWICE DAILY Cyanocobalamin [facility] [address]-39 1000 MCG/15ML Activ e 15 ml Orally Once a day Carvedilol [facility] 43116691826 25 MG Orally Active as directed Amlodipine [facility] 87122092900 10 MG Orally Active 1 ta blet Besylate Once a day Omeprazole [facility] 15329939409 40 Active TAKE 1 CAPSULE BY MOUTH EVERY DAY Vitamin B-12 [facility] 85917-67033 Active not defined Irbesartan [facility] 62933986121 150 MG Orally Active 1 t ablet Once a day Vitamin E [facility] 02966920539 400 UNIT Active not Orally defined Estradiol [facility] 71474387713 0.1 MG/GM January Active as Vaginal Two 22, directed times a Week 2018 Plavix [facility] 94717039999 75 MG Orally Active 1 table t Once a day Magnesium [facility] 54430295409 500 MG Orally Active not defined Results No Known Results Summary Purpose eClinicalWorks Submission
--- OUTSIDE RECORDS SUMMARY | 2019-11-09 06:56 | XMS REPORT ---
[...] End Status Dosage System Date Date Amlodipine [facility] 96753081266 10 MG Orally Active 1 ta blet Besylate Once a day Levetiracetam [facility] 24943111050 250 MG Orally Active 1 tablet every 12 hrs Magnesium [facility] 75281600512 500 MG Orally Active not defined Sertraline HCl [facility] 85959592799 25 MG Orally Active 1 tablet Once a day Eliquis [facility] 22683163755 5 MG Orally Active 1 tablet twice a day Cranberry [facility] 22632-07380 425 MG Orally Active 1 ca psule Concentrate with meals Levothyroxine [facility] 86980987659 125 MCG Orally Active 1 tablet Sodium Once a day in the morning on an empty stomach Metformin HCl [facility] 80426037234 500 MG Orally Active 1 tablet Twice a day with meals Metformin HCl [facility] 19634427588 500 Active TAKE 1 TABLET BY MOUTH TWICE DAILY Tylenol Arthritis ND 0 Active not Pain defined Plavix [facility] 85824133985 75 MG Orally Active 1 table t Once a day Crestor [facility] 65751052874 40 MG Active 1 EACH ONCE A DAY Vitamin B-12 [facility] 32707-11682 Active not defined Omeprazole [facility] 61704465102 40 Active TAKE 1 CAPSULE BY MOUTH EVERY DAY Coreg [facility] 51975405367 25 MG Orally Active not defined Irbesartan [facility] 48485764040 150 MG Orally Active 1 t ablet Once a day Multivitamin [facility] 24098-24925 Active not defined Estradiol [facility] 64720521925 0.1 MG/GM January Active as Vaginal Two 22, directed times a Week 2018 Rosuvastatin [facility] 70048628079 40 Active TAKE 1 Calcium TABLET BY MOUTH DAILY HydrALAZINE HCl [facility] 53002688170 100 MG Orally Active 1 tablet Three times a with food day Probiotic [facility] 76180280634 - Orally Active not defined Methenamine [facility] 77855275081 1 GM Orally Active 1 ta blet Hippurate Twice a day Cyanocobalamin [facility] [address]-54 1000 MCG/15ML Activ e 15 ml Orally Once a day Vitamin E [facility] 68805228961 400 UNIT Orally Active no t defined Vitamin D3 [facility] 24953115017 1000 UNIT Active 1 capsu le Orally Once a day Omeprazole [facility] 41012994057 40 MG orally Active 1 EA CH daily in AM ONCE A DAY Carvedilol [facility] 28951024834 25 MG Orally Active as directed HydrALAZINE HCl [facility] 45223291913 100 MG Orally December 05, Active as Three times a 2018 directed day Results No Known Results Summary Purpose eClinicalWorks Submission
--- OUTSIDE RECORDS SUMMARY | 2019-11-09 06:57 | XMS REPORT ---
:1935 Author Organization eClinicalWorks Care Team Providers Name Role Phone Britt, Na Provider Role Unavailable Allergies No Known Allergies Problems Problem Type Condition Code Onset Dates Condition Statu s Problem Chronic a-fib I48.2 Active Problem Overactive [...] End Status Dosage System Date Date Montelukast [facility] 48826227114 10 MG Orally October 11, Active 1 tablet Sodium Once a day 2019 Results No Known Results Summary Purpose eClinicalWorks Submission
--- OUTSIDE RECORDS SUMMARY | 2019-11-09 06:57 | XMS REPORT | Encounter Summary ---
:1935 Author Care Team Providers Name Role Phone Dr. Cher Kwon Primary Care Provider Unavailable Na Balwinder CARIAS Primary Care Provider [phone] Reason for Visit Essential hypertension; Gastroesophageal reflux disease; Atrial fibrillation Instructions 1. Gastroesophageal reflux disea se omeprazole 40 mg capsule,d elayed release 2. Atrial fibrillation clopidogrel 75 mg tablet Eliquis 5 mg tablet 3. Essential hypertension amlodipine 5 mg tablet hydralazine 100 mg tablet irbesartan 150 mg tablet 4. Congestive heart failure carvedilol 25 mg tablet furosemide 40 mg tablet 5. Diabetes mellitus metformin 500 mg tablet Discussion Note Completed a telephonic visit with celi dietrich. Patient encouraged to continue taking her daily meds. Patient report she does not needs any refills at this time. Patient advice to continue to weigh self, monito r blood pressure and blood sugar. Patient encouraged to practice social distancing . Patient report her daughter does her shopping and does not go out at this dane e. Patient educational handouts: No information available. Plan of Care Reminders Provider Appointments None recorded. Lab None recorded. Referral None recorded. Procedures None recorded. Surgeries None recorded. Imaging None recorded. Medications Name Start Date amlodipine 5 mg tablet Take 1 tablet every day by oral route. carvedilol 25 mg tablet Take 1 tablet twice a day by oral route. clopidogrel 75 mg tablet Take 1 tablet every day by oral route. Crestor 40 mg tablet Take 1 tablet every day by oral route. Eliquis 5 mg tablet Take 1 tablet twice a day by oral route. furosemide 40 mg tablet Take 1 tablet every day by oral route. hydralazine 100 mg tablet Take 1 tablet 3 times a day by oral route. irbesartan 150 mg tablet Take 1 tablet every day by oral route. metformin 500 mg tablet Take 1 tablet twice a day by oral route. omeprazole 40 mg capsule,delayed release Take 1 capsule every day by oral route. Medications Administered None recorded. Vitals Height Weight BMI 5 ft 2 in 130 lbs 23.8 kg/m2 Results Lab Results None recorded. Allergies Code Code System Name Reaction Severity Status Onset 1191 RxNorm Aspirin Tachycardia Mild to Active Moderate 2599 RxNorm Clonidine Tachycardia Mild to Active Moderate 2670 RxNorm Codeine Confusion Mild to Active Moderate 6054 RxNorm Nitrofurantoin Irregular Heart Mild to Active Rate Moderate 59281 RxNorm Zoloft Confusion Moderate Active Problems Name Status Onset Date Source Diabetes Mellitus Active 01/08/2019 Hyperlipidemia Active 01/08/2019 Essential Hypertension Active 01/08/2019 Atrial Fibrillation Active 01/08/2019 Cerebrovascular Accident Active 01/08/2019 Gastroesophageal Reflux Disease Active 01/08/2019 Coronary Bypass Graft Finding Active 01/08/2019 Congestive Heart Failure Active 10/15/2019 Procedures None recorded. Vaccine List None recorded. Social History None recorded. 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 History of Present Illness HTN Reported By: Patient HPI: Type: essential. Status: con trolled. Severity without complication. Associated Symptoms: no ches t pain at rest, no chest pain with activity, no palpitations, no shortnes s of breath, no light headedness, no rapid weight gain. Modifying Facto rs improved with medications, improved with exercise, improved with diet , better with rest. Compliance: COMPLIANT WITH and UNDERSTANDS MED USE , compliant with diet, compliant with exercise Congestive Heart Failure (CH F) Reported By: Patient HPI: Weight Changes: no change in weight. Nocturnal Symptoms: no orthopnea. Dietary Compliance: complies to and understands diet, complies with low sodium diet, complies to amador e water restrictions. Associated Symptoms: no chest discomfort, no dysp suraj, no decline in exercise capacity, no fatigue, no associated palpi tations, no associated dizziness, no edema Review of Systems Comprehensive General Adult ROS Reported By: Patient Constitutional: Constitutional: no fever, no night sweats, no significant weight gain, no significant weight loss, no exercise intolerance Eyes: Eyes: no dry eyes, no vision change, no irritation ENMT: Ears: no difficulty hearing, no ear pain. Nose: no frequent nosebleeds, no nose problems , no sinus problems. Mouth/Throat: no sore throat, no bleeding gums, no snoring, no dry mouth, no mouth ulcers, no oral abnorm alities, no teeth problems Cardiovascular: Cardiovascular: no chest dasha n, no arm pain on exertion, no shortness of breath when lyi ng down, no palpitations, no known heart murmur, no lightheaded ness, shortness of breath when walking Respiratory: Respiratory: no cough, no wh eezing, no shortness of breath, no coughing up blood, no sleep apnea Gastrointestinal: Gastrointestinal: no abdomin al pain, no nausea, no vomiting, no constipation, normal appe tite, no diarrhea, not vomiting blood, no dyspepsia, no GERD Genitourinary: Genitourinary: no incontinen ce, no difficulty urinating, no hematuria, no increased freq uency Musculoskeletal: Musculoskeletal: no muscle a ches, no muscle weakness, no arthralgias/joint pain, no b ack pain, swelling in the extremities Integumentary: Skin: no abnormal mole, no j aundice, no rashes, no laceration Neurologic: Neurologic: no loss of consc iousness, no weakness, no numbness, no seizures, no di zziness, no migraines, no headaches, no tremor Psychiatric: Psych: no depression, no sle ep disturbances, feeling safe in a relationship, no alcohol abu se, no anxiety, no hallucinations, no suicidal thoughts Endocrine: Endocrine: no fatigue Hematologic/Lymphatic: Hematologic/Lymphatic no swo llen glands, no bruising, no excessive bleeding Allergic/Immunologic: Allergy/Immunologic: no runn y nose, no sinus pressure, no itching, no hives, no freque nt sneezing Physical Exam None recorded.
--- OUTSIDE RECORDS SUMMARY | 2019-11-09 06:57 | XMS REPORT ---
[...] Other speech disturbance R47.89 Act marty Medications No Known Medications Results No Known Results Summary Purpose eClinicalWorks Submission
--- OUTSIDE RECORDS SUMMARY | 2019-11-09 06:57 | XMS REPORT ---
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 [...] End Status Dosage System Date Date Methenamine [facility] 02867314666 1 GM Orally Active 1 ta blet Hippurate Twice a day HydrALAZINE HCl [facility] 37473849547 100 MG Orally Active 1 tablet Three times a with food day Vitamin E [facility] 68941749056 400 UNIT Active not Orally defined Magnesium [facility] 03961282666 500 MG Orally Active not defined Carvedilol [facility] 99422603526 25 MG Orally Active as directed Plavix [facility] 65175005467 75 MG Orally Active 1 table t Once a day Crestor [facility] 25973294988 40 MG Active 1 EACH ONCE A DAY Coreg [facility] 91297267157 25 MG Orally Active not defined Multivitamin [facility] 61405-60924 Active not defined Tylenol Arthritis ND 0 Active not Pain defined Trimethoprim [facility] 56115027666 100 MG Orally Sep 18September Active 1 tablet Once a day 2019 Cyanocobalamin [facility] [address]-20 1000 MCG/15ML Activ e 15 ml Orally Once a day Estradiol [facility] 35525447917 0.1 MG/GM January Active as Vaginal Two 22, directed times a Week 2018 Vitamin D3 [facility] 74412563954 1000 UNIT Active 1 capsu le Orally Once a day Metformin HCl [facility] 25518432609 500 MG Orally Active 1 tablet Twice a day with meals Sertraline HCl [facility] 10604017903 25 MG Orally Active 1 tablet Once a day Vitamin B-12 [facility] 93100-68889 Active not defined Eliquis [facility] 80890560403 5 MG Orally Active 1 tablet twice a day Metformin HCl [facility] 84096433492 500 Active TAKE 1 TABLET BY MOUTH TWICE DAILY Rosuvastatin [facility] 56657061558 40 Active TAKE 1 Calcium TABLET BY MOUTH DAILY Probiotic [facility] 96794936026 - Orally Active not defined Omeprazole [facility] 58884618172 40 Active TAKE 1 CAPSULE BY MOUTH EVERY DAY Cranberry [facility] 03851-99302 425 MG Orally Active 1 ca psule Concentrate with meals Irbesartan ND 16116790524 150 MG Orally Active 1 t ablet Once a day Levothyroxine [facility] 41886833911 125 MCG Orally Active 1 tablet Sodium Once a day in the morning on an empty stomach Omeprazole [facility] 87097802795 40 MG orally Active 1 EA CH daily in AM ONCE A DAY Amlodipine [facility] 02569853546 10 MG Orally Active 1 ta blet Besylate Once a day Levetiracetam [facility] 42407977065 250 MG Orally Active 1 tablet every 12 hrs HydrALAZINE HCl [facility] 92161240886 100 MG Orally December 05, Active as Three times a 2017 Results No Known Results Summary Purpose eClinicalWorks Submission
--- OUTSIDE RECORDS SUMMARY | 2019-11-09 06:58 | XMS REPORT ---
[...] Code Onset Dates Condition Statu s Assessment Seasonal allergic rhinitis, J30.2 Active unspecified trigger Assessment Hypertension I10 Active Assessment Viral illness B34.9 Active Assessment Hospital discharge follow-up Z09 Active Problem Chronic a-fib I48.2 Active Problem [...] Start End Status Dosage System Date Date Coreg [facility] 18733226456 25 MG Orally Active not defined Omeprazole [facility] 38980854800 40 Active TAKE 1 CAPSULE BY MOUTH EVERY DAY Vitamin D3 [facility] 96765692434 1000 UNIT Active 1 capsu le Orally Once a day Crestor [facility] 79087443020 40 MG Active 1 EACH ONCE A DAY Magnesium [facility] 48704338623 500 MG Orally Active not defined Cyanocobalamin [facility] [address]-51 1000 MCG/15ML Activ e 15 ml Orally Once a day Tylenol Arthritis ND 0 Active not Pain defined HydrALAZINE HCl [facility] 11318563765 100 MG Orally Active 1 tablet Three times a with food day Estradiol [facility] 86885373890 0.1 MG/GM January Active as Vaginal Two 22, directed times a Week [address] [facility] 68[address]23 Active not defined Rosuvastatin [facility] 91935213407 40 Active TAKE 1 Calcium TABLET BY MOUTH DAILY Sertraline HCl [facility] 71864744499 25 MG Orally Active 1 tablet Once a day Levetiracetam [facility] 71635054927 250 MG Orally Active 1 tablet every 12 hrs Methenamine [facility] 13089506482 1 GM Orally Active 1 ta blet Hippurate Twice a day Levothyroxine [facility] 72010088195 125 MCG Orally Active 1 tablet Sodium Once a day in the morning on an empty stomach Vitamin B-[address] [facility] [address]266 Active not defined Omeprazole [facility] 42792175902 40 MG orally Active 1 EA CH daily in AM ONCE A DAY Metformin HCl [facility] 16489358513 500 MG Orally Active 1 tablet Twice a day with meals Plavix [facility] 41717027660 75 MG Orally Active 1 table t Once a day Eliquis [facility] 98516498529 5 MG Orally Active 1 tablet twice a day HydrALAZINE HCl [facility] 74491404447 100 MG Orally December 05, Active as Three times a 2017 directed day Amlodipine ND 74324831516 10 MG Orally Active 1 ta blet Besylate Once a day Cranberry [facility] [address]45 425 MG Orally Active 1 ca psule Concentrate with meals Carvedilol [facility] 85328467667 25 MG Orally Active as directed Metformin HCl [facility] 98029690739 500 Active TAKE 1 TABLET BY MOUTH TWICE DAILY Irbesartan [facility] 39361173488 150 MG Orally Active 1 t ablet Once a day Probiotic [facility] 78115274469 - Orally Active not defined Vitamin E [facility] 99979112365 400 UNIT Orally Active no t defined Results No Known Results Summary Purpose eClinicalWorks Submission
--- OUTSIDE RECORDS SUMMARY | 2019-11-09 06:59 | XMS REPORT ---
[...] and urge urinary N39.46 Active incontinence Assessment Recurrent UTI N39.0 Active Assessment History of recurrent UTI (urinary Z87.440 Active tract infection) Assessment Hypertension I10 Active Assessment Hospital discharge follow-up Z09 Active [...] End Status Dosage System Date Date Magnesium [facility] 92638916764 500 MG Orally Active not defined Probiotic [facility] 85468607285 - Orally Active not defined Vitamin B-12 [facility] 56958-10768 Active not defined Levothyroxine [facility] 83026960934 125 MCG Orally Active 1 tablet Sodium Once a day in the morning on an empty stomach Levetiracetam [facility] 07359548843 250 MG Orally Active 1 tablet every 12 hrs Irbesartan [facility] 91386785532 150 MG Orally Active 1 t ablet Once a day Amlodipine [facility] 88777102067 10 MG Orally Active 1 ta blet Besylate Once a day Metformin HCl [facility] 58448620481 500 Active TAKE 1 TABLET BY MOUTH TWICE DAILY Estradiol [facility] 14091861905 0.1 MG/GM January Active as Vaginal Two , directed times a Week 2018 Sertraline HCl [facility] 67245632687 25 MG Orally Active 1 tablet Once a day Trimethoprim [facility] 30042079472 100 MG Orally Sep 18September Active 1 tablet Once a day 2019 HydrALAZINE HCl [facility] 41267748157 100 MG Orally Active 1 tablet Three times a with food day Coreg [facility] 66601703436 25 MG Orally Active not defined Carvedilol [facility] 62803594998 25 MG Orally Active as directed Multivitamin [facility] 38[address]-55670 Active not defined Vitamin E [facility] 76120968337 400 UNIT Active not Orally defined Vitamin D3 [facility] 53718492072 1000 UNIT Active 1 capsu le Orally Once a day Omeprazole [facility] 78055780178 40 MG orally Active 1 EA CH daily in AM ONCE A DAY Plavix [facility] 91500042716 75 MG Orally Active 1 table t Once a day Cranberry [facility] 82[address]2709 425 MG Orally Active 1 ca psule Concentrate with meals HydrALAZINE HCl [facility] 45483482989 100 MG Orally December 05, Active as Three times a 2017 directed day Omeprazole [facility] 50796732299 40 Active TAKE 1 CAPSULE BY MOUTH EVERY DAY Crestor [facility] 51119781019 40 MG Active 1 EACH ONCE A DAY Rosuvastatin [facility] 05894543205 40 Active TAKE 1 Calcium TABLET BY MOUTH DAILY Eliquis [facility] 87974865392 5 MG Orally Active 1 tablet twice a day Tylenol Arthritis ND 0 Active not Pain defined Metformin HCl [facility] 49694535493 500 MG Orally Active 1 tablet Twice a day with meals Methenamine [facility] 58775416529 1 GM Orally Active 1 ta blet Hippurate Twice a day Cyanocobalamin [facility] [address]-55 1000 MCG/15ML Activ e 15 ml Orally Once a day Results No Known Results Summary Purpose eClinicalWorks Submission
[2019-11-09] MEDS ORDERED: ACETAMINOPHEN 325 MG TABLET ONE (07:25)
[2019-11-09] MEDS ORDERED: ONDANSETRON 4 MG/2 ML VIAL ONE (07:25)
[2019-11-09] MEDS ORDERED: NA CHLORIDE 0.9% 500 ML ONE (07:25)
[2019-11-09 07:58] LABS: Absolute Lymphocytes (CBC) 1.6 K/uL (0.7-4.9); Basophils % 0.4 % (0-1.3); Hematocrit 42.2 % (36.0-45.0); Lymphocytes % 21.8 % (15.3-44.8); MPV 7.4 fL (7.6-11.3); RBC Red Blood Cell Count 4.37 M/uL (3.86-4.86)
[2019-11-09 08:10] LABS: BUN Blood Urea Nitrogen 9 mg/dL (7-18); Bicarbonate 29 mmol/L (21-32); Glucose Level 153 mg/dL (74-106); Magnesium 2.2 mg/dL (1.8-2.4); Sodium Level 130 mmol/L (136-145); Troponin (Emerg Dept Use Only) < 0.02 ng/mL (0.0-0.045)
[2019-11-09 09:12] LABS: Urine Blood NEGATIVE (NEG); Urine Glucose NEGATIVE (NEG); Urine Protein 1+ (NEG); Urine pH 8.5 (5.0-7.0)
[2019-11-09] MEDS ORDERED: carvediloL 6.25 MG TAB ONE (09:16)
[2019-11-09] MEDS ORDERED: IRBESARTAN 150 MG TAB PO ONE (10:00)
[2019-11-09] MEDS ORDERED: HYDRALAZINE HCL 25 MG TABLET PO ONE (10:00)
--- NOTE | 2019-11-09 10:31 | EDPHYS ---
Physician Documentation [facility] Name: Radha Lara Age: 84 yrs Sex: Female : 1935 Arrival Date: 11/09/2019 Time: 06:52 Bed 13 Private MD: Elli Britt ED Physician Eleazar Tenorio HPI: 11/08 07:11 This 84 yrs old Female presents to ER via EMS with complaints of Neck la1 Problem, Nausea/Vomiting, Abdominal Pain. 07:12 The patient presents to the emergency department with nausea, that is moderate. Onset: la1 The symptoms/episode began/occurred 2 day(s) ago. Possible causes: unknown. The symptoms are aggravated by nothing. The symptoms are alleviated by nothing. Associated signs and symptoms: Pertinent negatives: diarrhea, GI bleeding, vomiting. Severity of symptoms: At their worst the symptoms were mild. The patient has experienced similar episodes in the past. pt reports feeling ill the last two days, has had nausea without vomiting or diarrhea. Reports neck pain that is intermittent, similar to previous, and relieved with OTC meds, denies fevers. Pt also reports that she had her BP meds adjusted yesterday but has not taken them this morning so far. Pt denies CP/SOB, reports only malaise and nausea. . Historical: - Allergies: 06:59 Codeine; sg 06:59 Aspirin; sg 06:59 nitrous oxide; sg 06:59 vicoden; sg 06:59 Niacin; sg 06:59 Lisinopril; sg 06:59 Clonidine; sg 06:59 Iodinated Contrast Media - IV Dye; sg 06:59 Nitrofurantoin; sg 06:59 Zoloft; sg 06:59 Ibuprofen; sg - PMHx: 06:59 acid reflux; Atrial Fib; CVA; Hypertension; PE; UTI; TIA; ADD/ADHD; Diabetes - NIDDM; sg Hyperlipidemia; Kidney stones; Sleep Apnea; - PSHx: 06:59 Hysterectomy; Cholecystectomy; Tonsillectomy; sg - Immunization history:: Adult Immunizations up to date. - Social history:: Smoking status: Patient denies any tobacco usage or history of. ROS: 07:14 Constitutional: + chills Eyes: Negative for injury, pain, redness, and discharge, ENT: la1 Negative for injury, pain, and discharge, Neck: Negative for injury, pain, and swelling, Cardiovascular: Negative for chest pain, palpitations, and edema, Respiratory: Negative for shortness of breath, cough, wheezing, and pleuritic chest pain. 07:14 MS/Extremity: Negative for injury and deformity, Skin: Negative for injury, rash, and discoloration, Neuro: Negative for headache, weakness, numbness, tingling, and seizure. 07:14 Abdomen/GI: Positive for nausea, Negative for vomiting, diarrhea, black/tarry stool, rectal bleeding. Exam: 07:15 Constitutional: This is a well developed, well nourished patient who is awake, alert, la1 and in no acute distress. Head/Face: Normocephalic, atraumatic. Neck: Trachea midline, Supple, full range of motion without nuchal rigidity, or vertebral point tenderness. No Meningismus. Chest/axilla: Normal chest wall appearance and motion. Nontender with no deformity. No lesions are appreciated. 07:15 Abdomen/GI: Soft, non-tender, with normal bowel sounds. No distension, non-tender Neuro: Awake and alert, GCS 15, oriented to person, place, time, and situation. Cranial nerves II-XII grossly intact. Motor strength 5/5 in all extremities. 07:15 Cardiovascular: Rate: normal, Pulses: Pulses are 3+ in right radial artery and left radial artery. Heart sounds: murmur, heard in the aortic area, S1, S2, Edema: is not appreciated. Vital Signs: 06:59 BP 207 / 79; Pulse 75; Resp 18; Temp 97.7; Pulse Ox 97% on R/A; Pain 6/10; sg 09:04 BP 168 / 62; Pulse 85; Resp 18; Pulse Ox 100% on R/A; em 09:56 BP 196 / 87; Pulse 65; Resp 18; Pulse Ox 98% on R/A; dh3 11:05 BP 168 / 65; Pulse 74; Resp 18; Pulse Ox 97% on R/A; dh3 MDM: 06:52 Patient medically screened. la1 10:27 Differential diagnosis: Nonspecific abd pain, gastritis, gastroenteritis, hypertensive la1 urgency. Data reviewed: vital signs, nurses notes, lab test result(s), EKG, and as a result, I will discharge patient. Data interpreted: Pulse oximetry: on room air is 98 %. Interpretation: normal. Counseling: I had a detailed discussion with the patient and/or guardian regarding: the historical points, exam findings, and any diagnostic results supporting the discharge/admit diagnosis, lab results, the need for outpatient follow up, a family practitioner, to return to the emergency department if symptoms worsen or persist or if there are any questions or concerns that arise at home. Medication response: home BP meds, improved BP. Special discussion: Based on the patient's history, exam, and Dx evaluation, there is no indication for emergent intervention or inpatient Tx. It is understood by the patient/guardian that if the Sx's persist or worsen they need to return immediately for re-evaluation. ED course: pt feeling better at this time, Na is about at baseline, pt tolerating PO. Denies any pain. . 11/08 07:03 Order name: CBC with Diff; Complete Time: 08:05 11/08 07:03 Order name: BMP; Complete Time: 08:11 11/08 07:03 Order name: Troponin (emerg Dept Use Only); Complete Time: 08:11 11/08 07:03 Order name: Magnesium; Complete Time: 08:11 11/08 07:45 Order name: Urine Dipstick--Ancillary (enter results) eb 11/08 07:03 Order name: IV; Complete Time: 07:45 11/08 07:03 Order name: EKG; Complete Time: 07:04 11/08 07:03 Order name: Urine Dipstick-Ancillary (obtain specimen); Complete Time: 07:35 11/08 07:03 Order name: EKG - Nurse/Tech; Complete Time: 10:58 la1 EC: Rate is 61 beats/min. Rhythm is irregular, A fib. QRS [place] is Normal. QT interval is la1 normal. No ST changes noted. Clinical impression: Atrial Fibrillation. Interpreted by me. Reviewed by me. Administered Medications: 07:51 Drug: Zofran (Ondansetron) 4 mg Route: IVP; Site: right antecubital; em 11:23 Follow up: Response: No adverse reaction; Marked relief of symptoms; Nausea is decreasedem 07:51 Drug: Tylenol 650 mg Route: PO; em 09:30 Follow up: Response: No adverse reaction; Marked relief of symptoms; Pain is decreased em 08:01 Drug: NS 0.9% 500 ml Route: IV; Rate: bolus; Site: right antecubital; em 09:30 Follow up: IV Status: Completed infusion; IV Intake: 500ml em 09:05 Not Given (Physician Discretion): amLODIPine 10 mg PO once em 09:40 Drug: carvedilol 12.5 mg Route: PO; em 11:23 Follow up: Response: No adverse reaction em 09:40 Drug: HydrALAZINE 100 mg Route: PO; em 11:24 Follow up: Response: No adverse reaction em 09:40 Drug: Irbesartan 150 mg Route: PO; em 11:24 Follow up: Response: No adverse reaction em Disposition: 11:32 Co-signature as Attending Physician, Eleazar Tenorio MD I agree with the assessment and kdr plan of care. Disposition: 11/09/19 10:30 Discharged to Home. Impression: Hypertensive urgency, Nausea, Malaise and fatigue. - Condition is Stable. - Discharge Instructions: Hypertension, Musculoskeletal Pain, Nausea and Vomiting, Adult, How to Take Your Blood Pressure, [id number]. - Prescriptions for Zofran 4 mg Oral Tablet - take 1 tablet by ORAL route every 12 hours As needed; 6 tablet. - Medication Reconciliation Form, Thank You Letter form. - Follow up: Private Physician; When: 2 - 3 days; Reason: Recheck today's complaints, Re-evaluation by your physician. Follow up: Emergency Department; When: As needed; Reason: Trouble breathing, Worsening of condition. Signatures: Dispatcher [employer] Fran Michael RN RN Eleazar Tenorio MD MD [facility] Sae Lim RN RN em Kevin Minaya, TRIMMER MEAT-C TRIMMER MEAT-Cla1 Corrections: (The following items were deleted from the chart) 11:25 10:30 11/09/2019 10:30 Discharged to Home. Impression: Hypertensive urgency; Nausea; em Malaise and fatigue. Condition is Stable. Forms are Medication Reconciliation Form, Thank You Letter, Antibiotic Education, Prescription Opioid Use. Follow up: Private Physician; When: 2 - 3 days; Reason: Recheck today's complaints, Re-evaluation by your physician. Follow up: Emergency Department; When: As needed; Reason: Trouble breathing, Worsening of condition. la1
--- NOTE | 2019-11-09 10:31 | ER ---
Nurse's Notes [facility] Name: Radha Lara Age: 84 yrs Sex: Female : 1935 Arrival Date: 11/09/2019 Time: 06:52 Bed 13 Private MD: Elli Britt Diagnosis: Hypertensive urgency;Nausea;Malaise and fatigue Presentation: 11/08 06:59 Chief complaint: EMS states: pt reports having pain at the nape of her neck, also sg states feeling nauseated and having vomiting at home, pt reports having intermittent abdominal pain as well, that began last night. Coronavirus screen: Proceed with normal triage. Ebola Screen: Patient negative for fever greater than or equal to 101.5 degrees Fahrenheit, and additional compatible Ebola Virus Disease symptoms Patient denies exposure to infectious person. Patient denies travel to an Ebola-affected area in the 21 days before illness onset. No symptoms or risks identified at this time. Initial Sepsis Screen: Does the patient meet any 2 criteria? No. Patient's initial sepsis screen is negative. Does the patient have a suspected source of infection? No. Patient's initial sepsis screen is negative. Risk Assessment: Do you want to hurt yourself or someone else? Patient reports no desire to harm self or others. Onset of symptoms was November 09, 2019. Care prior to arrival: missed IV attempt to the left wrist. 06:59 Method Of Arrival: EMS: [facility] sg 06:59 Acuity: YOLANDE 2 sg Historical: - Allergies: 06:59 Codeine; sg 06:59 Aspirin; sg 06:59 nitrous oxide; sg 06:59 vicoden; sg 06:59 Niacin; sg 06:59 Lisinopril; sg 06:59 Clonidine; sg 06:59 Iodinated Contrast Media - IV Dye; sg 06:59 Nitrofurantoin; sg 06:59 Zoloft; sg 06:59 Ibuprofen; sg - PMHx: 06:59 acid reflux; Atrial Fib; CVA; Hypertension; PE; UTI; TIA; ADD/ADHD; Diabetes - NIDDM; sg Hyperlipidemia; Kidney stones; Sleep Apnea; - PSHx: 06:59 Hysterectomy; Cholecystectomy; Tonsillectomy; sg - Immunization history:: Adult Immunizations up to date. - Social history:: Smoking status: Patient denies any tobacco usage or history of. Screenin:12 Abuse screen: Denies threats or abuse. Nutritional screening: No deficits noted. em Tuberculosis screening: No symptoms or risk factors identified. Fall Risk None identified. Assessment: 07:13 General: Appears in no apparent distress. comfortable, Behavior is calm, cooperative, em Denies fever. Pain: Complains of pain in back of neck Pain currently is 6 out of 10 on a pain scale. Neuro: Level of Consciousness is awake, alert, obeys commands, Oriented to person, place, time, situation, Appropriate for age. Cardiovascular: Denies chest pain, Capillary refill < 3 seconds Patient's skin is warm and dry. Respiratory: Airway is patent Respiratory effort is even, unlabored, Respiratory pattern is regular, symmetrical. GI: Reports nausea, Patient currently denies diarrhea, vomiting. Derm: Skin is intact, is healthy with good turgor, Skin is pink, warm \T\ dry. Musculoskeletal: Capillary refill < 3 seconds, Range of motion: intact in all extremities. 09:20 Reassessment: Patient appears in no apparent distress at this time. Patient and/or em family updated on plan of care and expected duration. Pain level reassessed. Patient is alert, oriented x 3, equal unlabored respirations, skin warm/dry/pink. Patient states feeling better. Patient states symptoms have improved. 11:00 Reassessment: Patient appears in no apparent distress at this time. Patient and/or em family updated on plan of care and expected duration. Pain level reassessed. Patient is alert, oriented x 3, equal unlabored respirations, skin warm/dry/pink. Patient states feeling better. Patient states symptoms have improved. Vital Signs: 06:59 BP 207 / 79; Pulse 75; Resp 18; Temp 97.7; Pulse Ox 97% on R/A; Pain 6/10; sg 09:04 BP 168 / 62; Pulse 85; Resp 18; Pulse Ox 100% on R/A; em 09:56 BP 196 / 87; Pulse 65; Resp 18; Pulse Ox 98% on R/A; dh3 11:05 BP 168 / 65; Pulse 74; Resp 18; Pulse Ox 97% on R/A; dh3 ED Course: 06:52 Patient arrived in ED. sg 06:52 Kevin Minaya FNP-C [facility]. la1 06:52 Eleazar Tenorio MD is Attending Physician. la1 06:56 Arm band placed on. sg 07:03 Triage completed. sg 07:04 Elli Britt MD is Private Physician. sg 07:10 Sae Lim, LAILA is Primary Nurse. em 07:12 Patient has correct armband on for positive identification. Bed in low position. Call em light in reach. Side rails up X2. desk monitor on. Pulse ox on. NIBP on. 07:36 Urine collected: clean catch specimen, clear. dh3 07:43 Initial lab(s) drawn, by me, sent to lab. Inserted saline lock: 20 gauge in right dh3 antecubital area, using aseptic technique. Blood collected. 08:25 EKG done, reviewed by Kevin BOWLING. at1 11:04 IV discontinued, intact, bleeding controlled, No redness/swelling at site. Pressure em dressing applied. 11:21 No provider procedures requiring assistance completed. em Administered Medications: 07:51 Drug: Zofran (Ondansetron) 4 mg Route: IVP; Site: right antecubital; em 11:23 Follow up: Response: No adverse reaction; Marked relief of symptoms; Nausea is decreasedem 07:51 Drug: Tylenol 650 mg Route: PO; em 09:30 Follow up: Response: No adverse reaction; Marked relief of symptoms; Pain is decreased em 08:01 Drug: NS 0.9% 500 ml Route: IV; Rate: bolus; Site: right antecubital; em 09:30 Follow up: IV Status: Completed infusion; IV Intake: 500ml em 09:05 Not Given (Physician Discretion): amLODIPine 10 mg PO once em 09:40 Drug: carvedilol 12.5 mg Route: PO; em 11:23 Follow up: Response: No adverse reaction em 09:40 Drug: HydrALAZINE 100 mg Route: PO; em 11:24 Follow up: Response: No adverse reaction em 09:40 Drug: Irbesartan 150 mg Route: PO; em 11:24 Follow up: Response: No adverse reaction em Intake: 09:30 IV: 500ml; Total: 500ml. em Outcome: 10:30 Discharge ordered by . la1 11:21 Discharged to home via wheelchair, with family. em 11:21 Condition: good 11:21 Discharge instructions given to patient, Instructed on discharge instructions, follow up and referral plans. medication usage, Demonstrated understanding of instructions, follow-up care, medications, Prescriptions given X 1. 11:25 Patient left the ED. em Signatures: Fran Lee RN RN Sae Locke RN LAILA em Amaya Keenan, incident analyst EKG Tat1 Kevin Minaya, ROUTE SALES SPECIALIST-C ROUTE SALES SPECIALIST-Cla1 Chanel Pisano dh3 Corrections: (The following items were deleted from the chart) 11:22 11:04 IV discontinued, intact, bleeding controlled, No redness/swelling at site. em Pressure dressing applied, dh3
[2019-11-09 11:32] VITALS: TEMP 97.7
[2019-11-09 11:36] VITALS: BP 168/65; O2SAT 97
--- NOTE | 2019-11-09 12:03 | EKG ---
Test Date: 2019-11-09 Test Time: 08:16:32 Coin Counter And Wrapper: JODY MEASUREMENT RESULTS: Intervals: Rate: 61 VT: QRSD: 82 QT: 384 QTc: 386 Holt: P: VT: QRS: 44 T: 89 INTERPRETIVE STATEMENTS: afib Anterior infarct, age undetermined Abnormal ECG Compared to ECG 09/12/2019 06:35:52 Myocardial infarct finding now present ST (T wave) deviation no longer present Electronically Signed On 11-09-19 12:02:36 CDT by Jass Lance
== END 2019-11-09 11:25 | disposition home or self-care (01) ==
LOC: ER 06:49
DX: I16.0 Hypertensive urgency (principal); R53.81 Other malaise; R53.83 Other fatigue; I10 Essential (primary) hypertension; Z88.5 Allergy status to narcotic agent; Z88.6 Allergy status to analgesic agent; Z88.8 Allergy status to other drugs, medicaments and biological substances; Z91.041 Radiographic dye allergy status
CPT/HCPCS: 96361; 93005; 85025; 80048; 36415; 83735; 81003; 84484; 96374; 99285; J7040; J2405

== ENCOUNTER 2019-11-10 10:08 | Inpatient (IN) | payer OTHER ==
--- OUTSIDE RECORDS SUMMARY | 2019-11-10 10:12 | XMS REPORT ---
[...] End Status Dosage System Date Date Levothyroxine [facility] 80632286234 125 MCG Orally Active 1 tablet Sodium Once a day in the morning on an empty stomach Cranberry [facility] [address]27-[address]397 425 MG Orally Active 1 ca psule Concentrate with meals Plavix [facility] 83657601962 75 MG Orally Active 1 table t Once a day Eliquis [facility] 44469025303 5 MG Orally Active 1 tablet twice a day Rosuvastatin [facility] 69704700196 40 Active TAKE 1 Calcium TABLET BY MOUTH DAILY Levetiracetam [facility] 36810603025 250 MG Orally Active 1 tablet every 12 hrs Tylenol Arthritis ND 0 Active not Pain defined Vitamin B-12 [facility] [address]7022-77746 Active not defined Estradiol [facility] 78636823962 0.1 MG/GM January Active as Vaginal Two 22, directed times a Week 2018 Irbesartan [facility] 00604215993 150 MG Orally Active 1 t ablet Once a day Metformin HCl [facility] 82167170758 500 MG Orally Active 1 tablet Twice a day with meals Amlodipine [facility] 77753153983 10 MG Orally Active 1 ta blet Besylate Once a day Carvedilol [facility] 27702378865 25 MG Orally Active as directed Omeprazole [facility] 39241446303 40 MG orally Active 1 EA CH daily in AM ONCE A DAY Sertraline HCl [facility] 64090520759 25 MG Orally Active 1 tablet Once a day HydrALAZINE HCl [facility] 84689741393 100 MG Orally Active 1 tablet Three times a with food day HydrALAZINE HCl [facility] 88175291236 100 MG Orally December 05, Active as Three times a 2017 directed day Cyanocobalamin [facility] [address]-21 1000 MCG/15ML Activ e 15 ml Orally Once a day Omeprazole [facility] 28083169951 40 Active TAKE 1 CAPSULE BY MOUTH EVERY DAY Crestor [facility] 23599929024 40 MG Active 1 EACH ONCE A DAY Vitamin E [facility] 75697382679 400 UNIT Orally Active no t defined Coreg [facility] 43122269139 25 MG Orally Active not defined Vitamin D3 [facility] 20555879291 1000 UNIT Active 1 capsu le Orally Once a day Metformin HCl [facility] 67826285692 500 Active TAKE 1 TABLET BY MOUTH TWICE DAILY Multivitamin [facility] 90332-69109 Active not defined Probiotic [facility] 32615492469 - Orally Active not defined Magnesium [facility] 39082490515 500 MG Orally Active not defined Results No Known Results Summary Purpose eClinicalWorks Submission
--- OUTSIDE RECORDS SUMMARY | 2019-11-10 10:12 | XMS REPORT ---
:1935 Author Organization [facility] t Address [address] [place] [address] Care Team Providers Name Role Phone MIR [...] ID 2019-10-17 2019-10-17 [facility] [id number] 14:55:00 14:55:00 [facility] [employer] [place] [facility] 2019-10-12 2019-10-12 [facility] [id number] 15:58:00 15:58:00 [facility] 2019-10-01 2019-10-01 [facility] [id number] 15:42:00 15:42:00 [facility] 2019-09-25 2019-09-25 [facility] [id number] 11:20:00 11:20:00 [facility] 2019-09-18 2019-09-18 [facility] [id number] 11:15:00 11:15:00 Specialty/U Specialty/U [facility] 2019-09-14 2019-09-14 [facility] [id number] 11:32:00 11:32:00 [facility] 2019-09-04 2019-09-04 [facility] [id number] 11:20:00 11:20:00 [facility] 2019-09-04 2019-09-04 [facility] [id number] 10:00:00 10:00:00 Specialty/U Specialty/U [facility] Clinic 2019-08-08 2019-08-08 [facility] [id number] 10:40:00 10:40:00 [facility] 2019-08-02 2019-08-02 [facility] [id number] 13:00:00 13:00:00 Specialty/U Specialty/U [facility]y Clinic Clinic 2019-07-09 2019-07-09 [facility] [id number] 14:00:00 14:00:00 [employer] [facility] Medicine 2019-05-29 2019-05-29 [facility] [id number] 11:20:00 11:20:00 [employer] [facility] Medicine 2019-05-15 2019-05-15 [facility] [id number] 10:15:00 10:15:00 Specialty/U Specialty/U rology rology Clinic Clinic 2019-04-24 2019-04-24 [facility] [id number] 10:40:00 10:40:00 [employer] [facility] 2019-04-09 2019-04-09 [facility] [id number] 13:20:00 13:20:00 [employer] [facility] Medicine 2019-03-24 2019-03-24 [facility] [id number] 12:00:00 12:00:00 [facility] 2019-03-15 2019-03-15 [facility] [id number] 13:22:00 13:22:00 [facility] 2019-03-13 2019-03-13 [facility] [id number] 10:39:00 10:39:00 [employer] [facility] Medicine 2019-03-12 2019-03-12 [facility] [id number] 10:30:00 10:30:00 [facility] Clinic 2019-02-28 2019-02-28 [facility] [id number] 13:00:00 13:00:00 [employer] [facility] Medicine 2019-02-12 2019-02-12 [facility] [id number] 10:15:00 10:15:00 Specialty/U Specialty/U rology rology Clinic Clinic 2019-02-08 2019-02-08 [facility] [id number] 15:00:00 15:00:00 [employer] [facility] Medicine 2019-02-08 2019-02-08 [facility] [id number] 08:42:00 08:42:00 [employer] [facility] Medicine 2019-02-06 2019-02-06 [facility] [id number] 09:40:00 09:40:00 [facility] 2019-01-09 2019-01-09 [facility] [id number] 10:40:00 10:40:00 [facility] 2019-01-03 2019-01-03 [facility] [id number] 13:07:00 13:07:00 [facility] 2018-12-28 2018-12-28 [facility] [id number] 14:00:00 14:00:00 [facility] 2018-09-14 2018-09-14 [facility] [id number] 09:26:00 09:26:00 [facility] 2018-09-08 2018-09-08 [facility] [id number] 09:30:00 09:30:00 [facility] 2018-08-07 2018-08-07 [facility] [id number] 08:45:00 08:45:00 [facility] 2018-02-20 2018-02-20 [facility] [id number] 14:30:00 14:30:00 [facility] 2018-02-03 2018-02-03 [facility] [id number] 09:00:00 09:00:00 [facility] Results Test Description Test Time Test Comments Text Results Atomic Results Result Comments CT, CTANGIO 2019-05-01 10:58:00 Reason for FINAL REPORT PATIENT ID: BRAIN exam:->stroke [id number] CLINICAL HISTORY: TIA TECHNIQUE: Initially, noncontrast head [...] intact. There is no evidence for a asa'cars[place] of Lawson proximal branch vessel occlusion. Mild [...] artery stenosis, unchanged. No evidence for a asa'carsarmi[place] of Lawson proximal branch vessel occlusion. Signed: Alexa Koch [facility] Verified Date/Time: 05/01/2019 10:58:29 Reading Location: [facility] C013V Neuro Reading Room , CAROTID, 2019-05-01 10:58:00 Reason for exam:->eval FINAL REPORT PATIENT ID: ANGIO for TIA [id number] CLINICAL HISTORY: TIA TECHNIQUE: Initially, noncontrast head [...] intact. There is no evidence for a asa'cars[place] of [place] proximal branch vessel occlusion. Mild [...] artery stenosis, unchanged. No evidence for a asa'carsarmi[place] of Lawson proximal branch vessel occlusion. Signed: Alexa Koch [facility] Verified Date/Time: 05/01/2019 10:58:29 Reading Location: [facility] C013V Neuro Reading Room C METABOLIC PANEL [...] = 0 /100 WBC 0-0 413) TROPONIN [id number] 20:18:00 Test Item Value Reference Range Comments [...] neurological disease, and persistent tachyarrhythmia.MR, BRAIN, WITHOUT [id number] 19:07:00Reason for exam:->Ischemic Stroke EvaluationFINAL REPORT MR, [...] None. IMPRESSION: No acute infarct Signed: [facility] Verified Date/Time: 04/30/2019 19:07:03 Reading Location: [address] Neuro Reading Room HEMOGLOBIN [id number] 10:33:00 Test Item Value Reference Range Comments HEMOGLOBIN A1C (BEAKER) (test code = 368) 6.6 % 4.3-6. 1 FastingVITAMIN [id number] 09:00:00 Test Item Value Reference Range Comments [...] APPLICABLE F OR DIALYSIS PATIENT S. FastingLIPID [id number] 07:30:00 Test Item Value Reference Range Comments [...] 130-159 High 160-189 Very High >=190 FastingTROPONIN [id number] 07:28:00 Test Item Value Reference Range Comments [...] and persistent tachyarrhythmia.FastingCBC W/PLT COUNT & AUTO [id number] 05:43:00 Test Item Value Reference Range Comments [...] 0-1 (test code = 2801) NV, ANGIOGRAM, [id number] 11:37:00Reason for exam:->TIAsFINAL REPORT November 22, 2017 [...] guidance and strict sterile technique a 4 Micronesian femoral sheath was inserted into the right common femoral artery. Through the sheath a 4 Micronesian vertebral catheter was then advanced over the [...] demonstrates a critical supraclinoid ICA stenosis of iawzujsdnsasy96%. There is delayed antegrade flow. The venous [...] Verified Date/Time: 11/22/2017 11:37:47 Reading Location: [facility] Y018 Neuro Angio Reading Room POCT- GLUCOSE [id number] 07:43:00 Test Item Value Reference Range Comments POC-GLUCOSE METER (BEAKER) 149 mg/dL 70-110 TESTE D AT [facility] [address] [facility] (test code = 1538) [facility] [address] [id number] 06:46:00 Test Item Value Reference Range Comments MAGNESIUM (BEAKER) (test code = 627) 2.0 mg/dL 1.6-2.6 BASIC METABOLIC [id number] 06:46:00 Test Item Value Reference Range Comments [...] NOT APPLICABLE F OR DIALYSIS PATIENT S. PT/[id number] 06:33:00 Test Item Value Reference Range Comments [...] 2.5-3.5 for patients with mechanical heart valves.POCT-GLUCOSE [id number] 06:22:00 Test Item Value Reference Range Comments POC-GLUCOSE METER (BEAKER) 161 mg/dL 70-110 TESTE D AT [address] (test code = 1538) [place] [address] POCT-GLUCOSE [id number] 02:08:00 Test Item Value Reference Range Comments POC-GLUCOSE METER (BEAKER) 182 mg/dL 70-110 TESTE D AT [address] (test code = 1538) [place] [address]30 POCT-GLUCOSE [id number] 19:30:00 Test Item Value Reference Range Comments POC-GLUCOSE METER (BEAKER) 146 mg/dL 70-110 TESTE D AT [address] (test code = 1538) [place] [address], CAROT[place], [id number] 14:54:00Please include aortaFINAL REPORT CT angiogram of [...] the left ICA terminus. There is also egxg-yf-mqmvpjvv multifocal narrowing of the right carotid siphon. [...] Mcdanielsort Verified Date/Time: 11/21/2017 14:54:26 Reading Location: [facility] Radiology Reading Room [facility], CTANG [id number] 14:54:00FINAL REPORT CT angiogram of the upper [...] the left ICA terminus. There is also sqza-og-pwakhktn multifocal narrowing of the right carotid siphon. [...] Mcdaniels Verified Date/Time: 11/21/2017 14:54:26 Reading Location: [facility] Radiology Reading Room POCT-GLUCOSE [id number] 11:50:00 Test Item Value Reference Range Comments POC-GLUCOSE METER (BEAKER) 153 mg/dL 70-110 TESTE D AT [facility] [address] [facility] (test code = 1538) [facility] 77 030 POCT-GLUCOSE [id number] 08:08:00 Test Item Value Reference Range Comments POC-GLUCOSE METER (BEAKER) 125 mg/dL 70-110 TESTE D AT [facility] [address] (test code = 1538) [place] [address] [id number] 06:43:00 Test Item Value Reference Range Comments MAGNESIUM (BEAKER) (test code = 627) 2.1 mg/dL 1.6-2.6 BASIC METABOLIC [id number] 06:43:00 Test Item Value Reference Range Comments [...] OR DIALYSIS PATIENT S. TSH/FREE T4 IF [id number] 22:12:00 Test Item Value Reference Range Comments THYROID STIMULATING HORMONE (BEAKER) (test code 4.66 uIU/mL 0.35-4.94 = 772) [id number] 21:54:00 Test Item Value Reference Range Comments MAGNESIUM (BEAKER) (test code = 627) 2.0 mg/dL 1.6-2.6 BASIC METABOLIC [id number] 21:54:00 Test Item Value Reference Range Comments [...] APPLICABLE F OR DIALYSIS PATIENT S. LIPID [id number] 21:54:00 Test Item Value Reference Range Comments [...] Borderline 130-159 High 160-189 Very High >=190POCT-GLUCOSE [id number] 21:35:00 Test Item Value Reference Range Comments POC-GLUCOSE METER (BEAKER) 128 mg/dL 70-110 TESTE D AT [facility] [address] [facility] [address] POCT-GLUCOSE [id number] 17:55:00 Test Item Value Reference Range Comments POC-GLUCOSE METER (BEAKER) 113 mg/dL 70-110 TESTE D AT [place] [id number] [facility] = 1538[facility] 77 [address] POCT-GLUCOSE [id number] 12:32:00 Test Item Value Reference Range Comments POC-GLUCOSE METER (BEAKER) 120 mg/dL 70-110 TESTE D AT [facility] [address] (test code = 1538) [facility] 77 [address] MR, MRA, BRAIN, WITHOUT [id number] 11:33:00Reason for exam:->Ischemic Stroke EvaluationFINAL REPORT MRA Head and Neck CLINICAL HISTORY: CVA TECHNIQUE: MRA of the head utilizing 3-D mqwv-nj-xdhnqe technique, with 3-D reconstructions. MRA of the neck utilizing 2-D and 3-D gree-qx-qthxxw technique, with 3-D reconstructions. COMPARISON: None FINDINGS: [...] There is no other evidence for a asa'carsarmi[place] of Lawson proximal branch vessel occlusion. There [...] [facility] Verified Date/Time: 11/20/2017 11:33:14 Reading Location: [address] Neuro Reading Room MR, MRA, NECK, WITHOUT IV [id number] 11:33:00Reason for exam:->Ischemic Stroke EvaluationFINAL REPORT MRA Head and Neck CLINICAL HISTORY: CVA TECHNIQUE: MRA of the head utilizing 3-D gioe-xo-eiymze technique, with 3-D reconstructions. MRA of the neck utilizing 2- D and 3-D nglj-sq-mxrkuq technique, with 3-D reconstructions. COMPARISON: None FINDINGS: [...] There is no other evidence for a asa'carsarmi[place] of Lawson proximal branch vessel occlusion. There [...] MDRort Verified Date/Time: 11/20/2017 11:33:14 Reading Location: [address] Neuro Reading Room MR, BRAIN, WITHOUT [id number] 11:05:00Reason for exam:->Ischemic Stroke EvaluationFINAL REPORT MRI [...] MDRep[facility] Verified Date/Time: 11/20/2017 11:05:05 Reading Location: [facility] B1 C013V Neuro Reading Room HEMOGLOBIN [id number] 09:08:00 Test Item Value Reference Range Comments HEMOGLOBIN A1C (BEAKER) (test code = 368) 6.1 % 4.3-6. 1 POCT-GLUCOSE [id number] 08:27:00 Test Item Value Reference Range Comments POC-GLUCOSE METER (BEAKER) 125 mg/dL 70-110 TESTE D AT [address] (test code = 1538) [facility] 77 [address] TSH/FREE T4 IF [id number] 07:47:00 Test Item Value Reference Range Comments THYROID STIMULATING HORMONE (BEAKER) (test code 5.97 uIU/mL 0.35-4.94 = 772) VITAMIN [id number] 07:44:00 Test Item Value Reference Range Comments VITAMIN B12 (BEAKER) (test code = 774) 857 pg/mL 213-816 CBC W/PLT COUNT & AUTO [id number] 06:47:00 Test Item Value Reference Range Comments [...] % 0-1 (test code = 2801) POCT-GLUCOSE [id number] 22:09:00 Test Item Value Reference Range Comments POC-GLUCOSE METER (BEAKER) 130 mg/dL 70-110 TESTE D AT [facility] [address] (test code = 1538) [facility] [address]
--- OUTSIDE RECORDS SUMMARY | 2019-11-10 10:12 | XMS REPORT ---
[...] End Status Dosage System Date Date Toviaz [facility] 66821877285 8 MG Orally Active 1 tablet Once a day Valsartan [facility] 85859555745 160 MG Orally Active 1 ta blet Once a day Tylenol Arthritis NDC 0 Active not de fined Pain Metformin HCl [facility] 88650840222 500 MG Orally Active 1 tablet with Twice a day meals Estradiol [facility] 23690136761 0.1 MG/GM January Active as direc nika Vaginal Two 22, times a Week 2018 Probiotic [facility] 93999-96115 Active not define d Cranberry [facility] 42434-09509 Active not define d Concentrate Bactrim DS [facility] 39950713755 800-160 MG December Active 1 tabl et Orally Twice a 2018 Cyanocobalamin [facility] [address]-15 1000 MCG/15ML Activ e 15 ml Orally Once a day HydrALAZINE HCl [facility] 37447101616 100 MG Orally December 05, Active as directed Three times a 2017 day Eliquis [facility] 89434684370 5 MG Orally Active 1 tablet twice a day Omeprazole [facility] 48892667301 40 Active TAKE 1 CAPSULE BY MOUTH EVERY DAY Levothyroxine [facility] [address]-34 Active not defined Sodium Verapamil HCl [facility] [address]-77 Active not defined Irbesartan [facility] 46900232631 150 MG Orally Active 1 t ablet Once a day Sertraline HCl [facility] 57433119450 25 Orally Once Active 1 tablet a day Bactrim DS [facility] 25872335765 800-160 MG January Active 1 tabl et Orally Twice a 2017 Multivitamin [facility] 21008-77285 Active not def ined Sertraline HCl [facility] 01712729086 25 MG Orally Active 1 tablet Once a day Metformin HCl [facility] 69249928506 500 Active TAKE 1 TABLET BY MOUTH TWICE DAILY Vitamin B-12 [facility] 47039-78963 Active not def ined Levetiracetam [facility] 66639530793 250 MG Orally Active 1 tablet every 12 hrs Amlodipine ND 78473818953 10 MG Orally Active 1 ta blet Besylate Once a day Magnesium ND 0 Active not defined HydrALAZINE HCl [facility] 74457227413 100 MG Orally Active 1 tablet with Three times a food day Carvedilol ND 67903882138 25 MG Orally Active as d irected Vitamin E [facility] 91240-28094 Active not define d Coreg ND 60958646893 25 MG Orally Active not def ined Vitamin D3 [facility] 75735469955 1000 UNIT Active 1 capsu le Orally Once a day Ranitidine [facility] 43969046885 Active not defin ed Rosuvastatin [facility] 23686327296 40 Active TAKE 1 TABLET Calcium BY MOUTH DAILY Plavix [facility] 23832861975 75 MG Orally Active 1 table t Once a day Omeprazole [facility] 87669855023 40 MG orally Active 1 EA CH ONCE A daily in AM DAY Fluconazole [facility] 41018672804 150 MG Orally Sep 15, Active 1 tablet one tab a week 2019 today and may repeat one tab in 1 week if no improvement Crestor [facility] 15600945364 40 MG Active 1 EACH ONCE A DAY Results No Known Results Summary Purpose eClinicalWorks Submission
--- OUTSIDE RECORDS SUMMARY | 2019-11-10 10:12 | XMS REPORT ---
[...] NDC 0 Active not defined Levothyroxine NDC [address]-42 Active not defined Sodium Vitamin B-12 [facility] [address] Active not def ined Metformin HCl [facility] 32671781889 500 MG Orally Active 1 tablet with Twice a day meals Sertraline HCl [facility] 99149393884 25 Orally Once Active 1 tablet a day Bactrim DS [facility] 19353745976 800-160 MG December Active 1 tabl et Orally Twice a [address] [facility] [address]33 Active not define d Cranberry [facility] [address]44 Active not define d Concentrate Rosuvastatin [facility] 25878909203 40 Active TAKE 1 TABLET Calcium BY MOUTH DAILY Cyanocobalamin [facility] [address]-54 1000 MCG/15ML Activ e 15 ml Orally Once a day Tylenol Arthritis ND 0 Active not de fined Pain Valsartan [facility] 21375042376 160 MG Orally Active 1 ta blet Once a day Bactrim DS [facility] 93824733732 800-160 MG January Active 1 tabl et Orally Twice a [address] [facility] 47222016345 40 MG Active 1 EACH ONCE A DAY Multivitamin [facility] 7[address] Active not def ined Probiotic [facility] [address]-94470 Active not define d Plavix [facility] 04086507684 75 MG Orally Active 1 table t Once a day HydrALAZINE HCl [facility] 50948221217 100 MG Orally December 05, Active as directed Three times a [address] [facility] 55801992153 8 MG Orally Active 1 tablet Once a day Verapamil HCl [facility] [address]-87 Active not defined Omeprazole [facility] 16207385324 40 Active TAKE 1 CAPSULE BY MOUTH EVERY DAY Fluconazole [facility] 97496980928 150 MG Orally Sep 15, Active 1 tablet one tab a week 2018 today and may repeat one tab in 1 week if no improvement Estradiol [facility] 35667745063 0.1 MG/GM January Active as direc nika Vaginal Two , times a Week [address] [facility] 26576824387 500 Active TAKE 1 TABLET BY MOUTH TWICE DAILY Omeprazole [facility] 08351220089 40 MG orally Active 1 EA CH ONCE A daily in AM DAY Eliquis [facility] 33644873510 5 MG Orally Active 1 tablet twice a day Sertraline HCl [facility] 64019440238 25 MG Orally Active 1 tablet Once a day Carvedilol [facility] 04891901658 25 MG Orally Active as d irected Vitamin D3 [facility] 63473948382 1000 UNIT Active 1 capsu le Orally Once a day Amlodipine [facility] 22648567664 10 MG Orally Active 1 ta blet Besylate Once a day Coreg [facility] 92510177673 25 MG Orally Active not def ined HydrALAZINE HCl [facility] 37423101017 100 MG Orally Active 1 tablet with Three times a food day Irbesartan [facility] 44760480229 150 MG Orally Active 1 t ablet Once a day Results No Known Results Summary Purpose eClinicalWorks Submission
--- OUTSIDE RECORDS SUMMARY | 2019-11-10 10:13 | XMS REPORT ---
[...] Dosage System Date Date Vitamin B-12 NDC 78461-76780 Active not defined Levothyroxine [facility] 75909172443 125 MCG Orally Active 1 tablet Sodium Once a day in the morning on an empty stomach Crestor [facility] 89931627782 40 MG Active 1 EACH ONCE A DAY Estradiol [facility] 33566024562 0.1 MG/GM January Active as Vaginal Two 22, directed times a Week 2018 Irbesartan [facility] 13937718582 150 MG Orally Active 1 t ablet Once a day Cyanocobalamin [facility] [address]-42 1000 MCG/15ML Activ e 15 ml Orally Once a day Methenamine [facility] 22260974939 1 GM Orally Aug 02September Active 1 ta blet Hippurate Twice a day 2019 Probiotic [facility] 44417367042 - Orally Active not defined Eliquis [facility] 12998027718 5 MG Orally Active 1 tablet twice a day Vitamin E [facility] 80653799018 400 UNIT Active not Orally defined HydrALAZINE HCl [facility] 11529998630 100 MG Orally Active 1 tablet Three times a with food day Coreg [facility] 56894433666 25 MG Orally Active not defined Tylenol Arthritis ND 0 Active not Pain defined Levetiracetam [facility] 88017758549 250 MG Orally Active 1 tablet every 12 hrs Cranberry [facility] 51505-22983 425 MG Orally Active 1 ca psule Concentrate with meals Multivitamin [facility] 83357-07334 Active not defined HydrALAZINE HCl [facility] 20899258327 100 MG Orally December 05, Active as Three times a 2017 directed day Metformin HCl [facility] 71395098051 500 MG Orally Active 1 tablet Twice a day with meals Plavix [facility] 53002983511 75 MG Orally Active 1 table t Once a day Omeprazole [facility] 14092699065 40 Active TAKE 1 CAPSULE BY MOUTH EVERY DAY Omeprazole [facility] 76387393878 40 MG orally Active 1 EA CH daily in AM ONCE A DAY Sertraline HCl [facility] 30944553698 25 MG Orally Active 1 tablet Once a day Carvedilol [facility] 80172796374 25 MG Orally Active as directed Magnesium [facility] 89617502704 500 MG Orally Active not defined Vitamin D3 [facility] 07938734815 1000 UNIT Active 1 capsu le Orally Once a day Bactrim [facility] 30434466450 400-80 MG Aug 02, Aug 07, Active 1 tablet Orally BID 2019 2019 Metformin HCl [facility] 21865243201 500 Active TAKE 1 TABLET BY MOUTH TWICE DAILY Rosuvastatin [facility] 49840734378 40 Active TAKE 1 Calcium TABLET BY MOUTH DAILY Amlodipine [facility] 84268096196 10 MG Orally Active 1 ta blet Besylate Once a day Results No Known Results Summary Purpose eClinicalWorks Submission
--- OUTSIDE RECORDS SUMMARY | 2019-11-10 10:13 | XMS REPORT ---
[...] End Status Dosage System Date Date Eliquis [facility] 74336183803 5 MG Orally Active 1 tablet twice a day Omeprazole [facility] 03211664134 40 MG orally Active 1 EA CH daily in AM ONCE A DAY Levetiracetam [facility] 24710296978 250 MG Orally Active 1 tablet every 12 hrs Tylenol Arthritis ND 0 Active not Pain defined Multivitamin [facility] 49748-89505 Active not defined Rosuvastatin [facility] 85073419424 40 Active TAKE 1 Calcium TABLET BY MOUTH DAILY Sertraline HCl [facility] 96792447651 25 MG Orally Active 1 tablet Once a day Crestor [facility] 12997605978 40 MG Active 1 EACH ONCE A DAY Methenamine [facility] 85831239047 1 GM Orally Aug 02September Active 1 ta blet Hippurate Twice a day 2019 Levothyroxine [facility] 13476450138 125 MCG Orally Active 1 tablet Sodium Once a day in the morning on an empty stomach Cranberry [facility] 50064-70792 425 MG Orally Active 1 ca psule Concentrate with meals Probiotic [facility] 40805752640 - Orally Active not defined HydrALAZINE HCl [facility] 10173195340 100 MG Orally Active 1 tablet Three times a with food day Coreg [facility] 90474104504 25 MG Orally Active not defined HydrALAZINE HCl [facility] 24247852039 100 MG Orally December 05, Active as Three times a 2017 directed day Vitamin D3 [facility] 01030346079 1000 UNIT Active 1 capsu le Orally Once a day Metformin HCl [facility] 58292535317 500 MG Orally Active 1 tablet Twice a day with meals Metformin HCl [facility] 57680136880 500 Active TAKE 1 TABLET BY MOUTH TWICE DAILY Cyanocobalamin [facility] [address]-64 1000 MCG/15ML Activ e 15 ml Orally Once a day Carvedilol [facility] 59267183695 25 MG Orally Active as directed Amlodipine [facility] 94190899963 10 MG Orally Active 1 ta blet Besylate Once a day Omeprazole [facility] 04376943660 40 Active TAKE 1 CAPSULE BY MOUTH EVERY DAY Vitamin B-12 [facility] 79252-[address]1944 Active not defined Irbesartan [facility] 81277389979 150 MG Orally Active 1 t ablet Once a day Vitamin E [facility] 36031160669 400 UNIT Active not Orally defined Estradiol [facility] 30026449697 0.1 MG/GM January Active as Vaginal Two 22, directed times a Week 2018 Plavix [facility] 18292871254 75 MG Orally Active 1 table t Once a day Magnesium [facility] 30311739247 500 MG Orally Active not defined Results No Known Results Summary Purpose eClinicalWorks Submission
--- OUTSIDE RECORDS SUMMARY | 2019-11-10 10:14 | XMS REPORT ---
[...] End Status Dosage System Date Date Methenamine [facility] 35942632988 1 GM Orally Active 1 ta blet Hippurate Twice a day HydrALAZINE HCl [facility] 37725408212 100 MG Orally Active 1 tablet Three times a with food day Vitamin E [facility] 76250460077 400 UNIT Active not Orally defined Magnesium [facility] 11703746401 500 MG Orally Active not defined Carvedilol [facility] 14820533857 25 MG Orally Active as directed Plavix [facility] 89247689281 75 MG Orally Active 1 table t Once a day Crestor [facility] 86457873294 40 MG Active 1 EACH ONCE A DAY Coreg [facility] 17819378356 25 MG Orally Active not defined Multivitamin [facility] 005[address]-93460 Active not defined Tylenol Arthritis ND 0 Active not Pain defined Trimethoprim [facility] 19083830629 100 MG Orally Sep 18September Active 1 tablet Once a day 2019 Cyanocobalamin [facility] [address]-18 1000 MCG/15ML Activ e 15 ml Orally Once a day Estradiol [facility] 44580208583 0.1 MG/GM January Active as Vaginal Two 22, directed times a Week 2018 Vitamin D3 [facility] 35830282156 1000 UNIT Active 1 capsu le Orally Once a day Metformin HCl [facility] 63463359005 500 MG Orally Active 1 tablet Twice a day with meals Sertraline HCl [facility] 20410378289 25 MG Orally Active 1 tablet Once a day Vitamin B-12 [facility] 57[address]56 Active not defined Eliquis [facility] 89720933508 5 MG Orally Active 1 tablet twice a day Metformin HCl [facility] 33323220061 500 Active TAKE 1 TABLET BY MOUTH TWICE DAILY Rosuvastatin [facility] 83989213325 40 Active TAKE 1 Calcium TABLET BY MOUTH DAILY Probiotic [facility] 99861288228 - Orally Active not defined Omeprazole [facility] 48656703939 40 Active TAKE 1 CAPSULE BY MOUTH EVERY DAY Cranberry [facility] 96072-03188 425 MG Orally Active 1 ca psule Concentrate with meals Irbesartan ND 65191850617 150 MG Orally Active 1 t ablet Once a day Levothyroxine [facility] 46923050933 125 MCG Orally Active 1 tablet Sodium Once a day in the morning on an empty stomach Omeprazole [facility] 53975093316 40 MG orally Active 1 EA CH daily in AM ONCE A DAY Amlodipine [facility] 74424743267 10 MG Orally Active 1 ta blet Besylate Once a day Levetiracetam [facility] 59643250972 250 MG Orally Active 1 tablet every 12 hrs HydrALAZINE HCl [facility] 57506297746 100 MG Orally December 05, Active as Three times a 2017 Results No Known Results Summary Purpose eClinicalWorks Submission
--- OUTSIDE RECORDS SUMMARY | 2019-11-10 10:14 | XMS REPORT ---
[...] End Status Dosage System Date Date Amlodipine [facility] 38873257388 10 MG Orally Active 1 ta blet Besylate Once a day Levetiracetam [facility] 03009946304 250 MG Orally Active 1 tablet every 12 hrs Magnesium [facility] 36349667122 500 MG Orally Active not defined Sertraline HCl [facility] 91225661601 25 MG Orally Active 1 tablet Once a day Eliquis [facility] 56561724226 5 MG Orally Active 1 tablet twice a day Cranberry [facility] 12136-71266 425 MG Orally Active 1 ca psule Concentrate with meals Levothyroxine [facility] 16548557902 125 MCG Orally Active 1 tablet Sodium Once a day in the morning on an empty stomach Metformin HCl [facility] 95213178169 500 MG Orally Active 1 tablet Twice a day with meals Metformin HCl [facility] 17412314272 500 Active TAKE 1 TABLET BY MOUTH TWICE DAILY Tylenol Arthritis ND 0 Active not Pain defined Plavix [facility] 79800614187 75 MG Orally Active 1 table t Once a day Crestor [facility] 60568828104 40 MG Active 1 EACH ONCE A DAY Vitamin B-12 [facility] 275[address]-79234 Active not defined Omeprazole [facility] 06205551634 40 Active TAKE 1 CAPSULE BY MOUTH EVERY DAY Coreg [facility] 11568675227 25 MG Orally Active not defined Irbesartan [facility] 26479150150 150 MG Orally Active 1 t ablet Once a day Multivitamin [facility] 092[address]-20728 Active not defined Estradiol [facility] 15545272114 0.1 MG/GM January Active as Vaginal Two 22, directed times a Week 2018 Rosuvastatin [facility] 86718362073 40 Active TAKE 1 Calcium TABLET BY MOUTH DAILY HydrALAZINE HCl [facility] 92183752698 100 MG Orally Active 1 tablet Three times a with food day Probiotic [facility] 99730151480 - Orally Active not defined Methenamine [facility] 01874185642 1 GM Orally Active 1 ta blet Hippurate Twice a day Cyanocobalamin [facility] [address]-97 1000 MCG/15ML Activ e 15 ml Orally Once a day Vitamin E [facility] 75498933432 400 UNIT Orally Active no t defined Vitamin D3 [facility] 37887797170 1000 UNIT Active 1 capsu le Orally Once a day Omeprazole [facility] 21993311449 40 MG orally Active 1 EA CH daily in AM ONCE A DAY Carvedilol [facility] 56554187858 25 MG Orally Active as directed HydrALAZINE HCl [facility] 89985479492 100 MG Orally December 05, Active as Three times a 2018 directed day Results No Known Results Summary Purpose eClinicalWorks Submission
--- OUTSIDE RECORDS SUMMARY | 2019-11-10 10:15 | XMS REPORT ---
[...] Montelukast [facility] 04168565305 10 MG Orally October 11, Active 1 tablet Sodium Once a day 2019 Results No Known Results Summary Purpose eClinicalWorks Submission
--- OUTSIDE RECORDS SUMMARY | 2019-11-10 10:15 | XMS REPORT ---
[...] End Status Dosage System Date Date Coreg [facility] 40262609715 25 MG Orally Active not defined Omeprazole [facility] 76160144561 40 Active TAKE 1 CAPSULE BY MOUTH EVERY DAY Vitamin D3 [facility] 02919234128 1000 UNIT Active 1 capsu le Orally Once a day Crestor [facility] 07639160160 40 MG Active 1 EACH ONCE A DAY Magnesium [facility] 31486957644 500 MG Orally Active not defined Cyanocobalamin [facility] [address]-16 1000 MCG/15ML Activ e 15 ml Orally Once a day Tylenol Arthritis ND 0 Active not Pain defined HydrALAZINE HCl [facility] 90719682342 100 MG Orally Active 1 tablet Three times a with food day Estradiol [facility] 61045238117 0.1 MG/GM January Active as Vaginal Two 22, directed times a Week 2018 Multivitamin [facility] 15604-65585 Active not defined Rosuvastatin [facility] 50416659795 40 Active TAKE 1 Calcium TABLET BY MOUTH DAILY Sertraline HCl [facility] 57569194083 25 MG Orally Active 1 tablet Once a day Levetiracetam [facility] 56841696360 250 MG Orally Active 1 tablet every 12 hrs Methenamine [facility] 10285349996 1 GM Orally Active 1 ta blet Hippurate Twice a day Levothyroxine [facility] 05367596814 125 MCG Orally Active 1 tablet Sodium Once a day in the morning on an empty stomach Vitamin B-12 [facility] 596[address]-62375 Active not defined Omeprazole [facility] 68656818652 40 MG orally Active 1 EA CH daily in AM ONCE A DAY Metformin HCl [facility] 34202874435 500 MG Orally Active 1 tablet Twice a day with meals Plavix [facility] 73206744259 75 MG Orally Active 1 table t Once a day Eliquis [facility] 63554772533 5 MG Orally Active 1 tablet twice a day HydrALAZINE HCl [facility] 10680069315 100 MG Orally December 05, Active as Three times a 2017 directed day Amlodipine ND 64112190161 10 MG Orally Active 1 ta blet Besylate Once a day Cranberry [facility] 3[address]-05424 425 MG Orally Active 1 ca psule Concentrate with meals Carvedilol [facility] 90181472863 25 MG Orally Active as directed Metformin HCl [facility] 06470427162 500 Active TAKE 1 TABLET BY MOUTH TWICE DAILY Irbesartan [facility] 65778517622 150 MG Orally Active 1 t ablet Once a day Probiotic [facility] 35878007013 - Orally Active not defined Vitamin E [facility] 83042441178 400 UNIT Orally Active no t defined Results No Known Results Summary Purpose eClinicalWorks Submission
--- OUTSIDE RECORDS SUMMARY | 2019-11-10 10:15 | XMS REPORT ---
[...] End Status Dosage System Date Date Magnesium [facility] 71736061039 500 MG Orally Active not defined Probiotic [facility] 79183933863 - Orally Active not defined Vitamin B-12 [facility] 36839-51022 Active not defined Levothyroxine [facility] 39077086453 125 MCG Orally Active 1 tablet Sodium Once a day in the morning on an empty stomach Levetiracetam [facility] 77127351101 250 MG Orally Active 1 tablet every 12 hrs Irbesartan [facility] 18622694483 150 MG Orally Active 1 t ablet Once a day Amlodipine [facility] 90108368804 10 MG Orally Active 1 ta blet Besylate Once a day Metformin HCl [facility] 66991046166 500 Active TAKE 1 TABLET BY MOUTH TWICE DAILY Estradiol [facility] 91261766490 0.1 MG/GM January Active as Vaginal Two , directed times a Week 2018 Sertraline HCl [facility] 24904100606 25 MG Orally Active 1 tablet Once a day Trimethoprim [facility] 67426924751 100 MG Orally Sep 18September Active 1 tablet Once a day 2019 HydrALAZINE HCl [facility] 19012775135 100 MG Orally Active 1 tablet Three times a with food day Coreg [facility] 52992943453 25 MG Orally Active not defined Carvedilol [facility] 61952439379 25 MG Orally Active as directed Multivitamin [facility] 13182-42709 Active not defined Vitamin E [facility] 94916914563 400 UNIT Active not Orally defined Vitamin D3 [facility] 80383712346 1000 UNIT Active 1 capsu le Orally Once a day Omeprazole [facility] 69006905657 40 MG orally Active 1 EA CH daily in AM ONCE A DAY Plavix [facility] 24360727238 75 MG Orally Active 1 table t Once a day Cranberry [facility] 78626-28743 425 MG Orally Active 1 ca psule Concentrate with meals HydrALAZINE HCl [facility] 31034490002 100 MG Orally December 05, Active as Three times a 2017 directed day Omeprazole [facility] 18460253528 40 Active TAKE 1 CAPSULE BY MOUTH EVERY DAY Crestor [facility] 77688315170 40 MG Active 1 EACH ONCE A DAY Rosuvastatin [facility] 17903255136 40 Active TAKE 1 Calcium TABLET BY MOUTH DAILY Eliquis [facility] 66649458001 5 MG Orally Active 1 tablet twice a day Tylenol Arthritis ND 0 Active not Pain defined Metformin HCl [facility] 18638651599 500 MG Orally Active 1 tablet Twice a day with meals Methenamine [facility] 33907942116 1 GM Orally Active 1 ta blet Hippurate Twice a day Cyanocobalamin [facility] [address]-13 1000 MCG/15ML Activ e 15 ml Orally Once a day Results No Known Results Summary Purpose eClinicalWorks Submission
[2019-11-10] MEDS ORDERED: NA CHLORIDE 0.9% 500 ML ONE (10:58)
[2019-11-10] MEDS ORDERED: PROMETHAZINE INJ 25 MG/ML AMP ONE (10:58)
[2019-11-10 11:41] LABS: Urine Bacteria NONE SEEN /HPF (<20); Urine Culture Reflex Order NOT NEEDED; Urine RBC <5 /HPF (NONE SEEN)
--- NOTE | 2019-11-10 11:41 | RAD REPORT ---
EXAM DESCRIPTION: CT - Abdomen Pelvis Wo Contrast - 11/10/2019 11:03 am CLINICAL HISTORY: Abdominal pain. nausea/vomiting COMPARISON: Stone Protocol dated 09/12/2019; Abdomen Pelvis Wo Contrast dated 08/18/2019; Abdomen Pelvis W Contrast dated 08/04/2019 TECHNIQUE: CT imaging of the abdomen and pelvis was performed without contrast. Solid organ, bowel a nd vascular assessment is limited due to lack of IV and oral contrast. All CT scans are performed using dose optimization technique as appropriate and may include automated exposure control or mA/KV adjustment according to patient size. FINDINGS: The lower lung de souza are clear. The liver demonstrates no focal mass or biliary dilatation. Cholecystectomy clips are seen.The spleen , pancreas, adrenal glands are normal. No urinary tract stone or obstructive uropathy identified. Com plex cystic right renal lesion of wall calcifications are unchanged. No bowel obstruction, free air, free fluid or abscess. The appendix is not identified as a discrete s tructure, however, no secondary findings of appendicitis are identified. Mild fecal retention is see n in the rectosigmoid colon. Heavy aortic atherosclerosis seen. The osseous structures are within normal limits. IMPRESSION: No urinary tract stone or obstructive uropathy is seen. Stable mildly complex cystic rig ht renal lesion. Mild fecal retention with mild wall thickening is seen involving the rectosigmoid colon. Heavy atherosclerosis. A limited non-contrast examination was performed as detailed.
[2019-11-10 11:43] LABS: Urine Blood NEGATIVE (NEG); Urine Glucose NEGATIVE (NEG); Urine Protein NEGATIVE (NEG)
[2019-11-10 11:51] LABS: Absolute Lymphocytes (CBC) 2.2 K/uL (0.7-4.9); Basophils % 0.6 % (0-1.3); Hematocrit 38.9 % (36.0-45.0); Lymphocytes % 23.9 % (15.3-44.8); MPV 7.1 fL (7.6-11.3); RBC Red Blood Cell Count 4.09 M/uL (3.86-4.86)
[2019-11-10 12:08] LABS: ALT/SGPT 26 U/L (12-78); AST/SGOT 20 U/L (15-37); Albumin 3.6 g/dL (3.4-5.0); Alkaline Phosphatase 102 U/L (45-117); BUN Blood Urea Nitrogen 18 mg/dL (7-18); Bicarbonate 28 mmol/L (21-32); Bilirubin Direct 0.2 mg/dL (0-0.2); Bilirubin Total 0.5 mg/dL (0.2-1.0); Glucose Level 131 mg/dL (74-106); Lipase 123 U/L (73-393); Potassium 4.3 mmol/L (3.5-5.1); Protein, Total 7.1 g/dL (6.4-8.2); Sodium Level 129 mmol/L (136-145)
--- NOTE | 2019-11-10 12:13 | ER ---
Nurse's Notes [facility] Name: Radha Lara Age: 84 yrs Sex: Female : 1935 Arrival Date: 11/10/2019 Time: 10:12 Bed 7 Private MD: Elli Britt Diagnosis: Intractable vomiting;Dehydration;Weakness Presentation: 11/09 10:23 Chief complaint: Patient states: Feels sick for several days, was in the hospital for a ca1 few days, was discharged 2 days ago. Today, woke up with N/V and neck pain. Coronavirus screen: Proceed with normal triage. Patient denies a cough. Patient denies shortness of breath or difficulty breathing. Patient denies measured and/or subjective temperature greater than 100.4F prior to today's visit. Patient denies travel on a cruise ship or to a country the [facility] currently lists as an affected area. Patient denies contact with known and/or suspected case of COVID-19. Ebola Screen: Patient negative for fever greater than or equal to 101.5 degrees Fahrenheit, and additional compatible Ebola Virus Disease symptoms Patient denies exposure to infectious person. Patient denies travel to an Ebola-affected area in the 21 days before illness onset. No symptoms or risks identified at this time. Initial Sepsis Screen: Does the patient meet any 2 criteria? No. Patient's initial sepsis screen is negative. Does the patient have a suspected source of infection? No. Patient's initial sepsis screen is negative. Risk Assessment: Do you want to hurt yourself or someone else? Patient reports no desire to harm self or others. Onset of symptoms was November 10, 2019. 10:23 Method Of Arrival: Wheelchair ca1 10:23 Acuity: YOLANDE 3 ca1 Historical: - Allergies: 10:29 Aspirin; ca1 10:29 Codeine; ca1 10:29 Ibuprofen; ca1 10:29 Iodinated Contrast Media - IV Dye; ca1 10:29 Lisinopril; ca1 10:29 Niacin; ca1 10:29 Nitrofurantoin; ca1 10:29 nitrous oxide; ca1 10:29 vicoden; ca1 10:29 Zoloft; ca1 10:29 Clonidine; ca1 - Home Meds: 10:29 amlodipine 5 mg tab 1 tab once daily for Hypertension [Active]; carvedilol 25 mg Oral ca1 tab 1 tab 2 times per day [Active]; cranberry Oral twice a day [Active]; Crestor 40 mg Oral tab once daily [Active]; Eliquis 5 mg Oral tab 2 times per day [Active]; furosemide 40 mg Oral tab as needed [Active]; hydralazine 100 mg Oral tab 3 times per day [Active]; irbesartan 150 mg Oral tab 1 tab once daily [Active]; levothyroxine 75 mcg tab 1 tab once daily [Active]; magnesium oxide 500 mg Oral cap [Active]; metformin 500 mg Oral Tb24 1 tab 2 times per day [Active]; Multiple Vitamins Oral tab daily [Active]; omeprazole 40 mg Oral cpDR 1 cap once daily [Active]; Plavix 75 mg Oral tab 1 tab once daily [Active]; Probiotic Oral [Active]; Vitamin B-12 2,000 mcg Oral TbER daily [Active]; Vitamin D3 1,000 unit Oral chew daily [Active]; vitamin E Oral once daily [Active]; - PMHx: 10:29 UTI; acid reflux; ADD/ADHD; Atrial Fib; CVA; Diabetes - NIDDM; Hyperlipidemia; ca1 Hypertension; Kidney stones; PE; Sleep Apnea; TIA; - PSHx: 10:29 Hysterectomy; Cholecystectomy; Tonsillectomy; ca1 - Immunization history:: Adult Immunizations up to date, Pneumococcal vaccine is up to date, Flu vaccine is not up to date. - Social history:: Smoking status: Patient denies any tobacco usage or history of. - Family history:: not pertinent. - Hospitalizations: : No recent hospitalization is reported. Screenin:49 Abuse screen: Denies threats or abuse. Denies injuries from another. Nutritional ca1 screening: No deficits noted. Tuberculosis screening: No symptoms or risk factors identified. Fall Risk IV access (20 points). Assessment: 10:49 General: Appears in no apparent distress. comfortable, Behavior is calm, cooperative, ca1 appropriate for age. Pain: Complains of pain in left posterior aspect of neck Pain does not radiate. Pain currently is 5 out of 10 on a pain scale. Pain began this morning. Neuro: Level of Consciousness is awake, alert, obeys commands, Oriented to person, place, time, situation, Appropriate for age. Cardiovascular: Heart tones S1 S2 present Capillary refill < 3 seconds Patient's skin is warm and dry. Rhythm is atrial fibrillation. Respiratory: Airway is patent Respiratory effort is even, unlabored, Respiratory pattern is regular, symmetrical, Breath sounds are clear bilaterally. GI: Abdomen is flat, non-distended, Bowel sounds present X 4 quads. Abd is soft and non tender X 4 quads. Reports nausea, vomiting, since this morning. : No signs and/or symptoms were reported regarding the genitourinary system. EENT: No signs and/or symptoms were reported regarding the EENT system. Derm: Skin is intact, is healthy with good turgor, Skin is pink, warm \T\ dry. Musculoskeletal: Circulation, motion, and sensation intact. Capillary refill < 3 seconds. 10:53 Reassessment: Pt to CT. ca1 11:25 Reassessment: IV insertion attempts unsuccessful at this time. Called lab for blood ca1 draw. Reassessment: Patient appears in no apparent distress at this time. Patient and/or family updated on plan of care and expected duration. Pain level reassessed. Patient is alert, oriented x 3, equal unlabored respirations, skin warm/dry/pink. 12:27 Reassessment: Patient appears in no apparent distress at this time. Patient and/or ca1 family updated on plan of care and expected duration. Pain level reassessed. Patient is alert, oriented x 3, equal unlabored respirations, skin warm/dry/pink. Patient is alert/active/playful, equal unlabored respirations, skin warm/dry/pink. Dr. Dunbar at bedside. Reassessment: Daughter's number [phone]. 13:32 Reassessment: Patient appears in no apparent distress at this time. Patient is alert, ca1 oriented x 3, equal unlabored respirations, skin warm/dry/pink. Pending room assignment. 13:45 Reassessment: called for report. RN will call back. ca1 14:02 Reassessment: Patient appears in no apparent distress at this time. Patient is alert, ca1 oriented x 3, equal unlabored respirations, skin warm/dry/pink. Vital Signs: 10:23 BP 196 / 68; Pulse 72; Resp 18 S; Temp 98.6(O); Pulse Ox 94% on R/A; ca1 11:17 BP 210 / 82; Pulse 69; Resp 19; Pulse Ox 97% on R/A; ca1 11:52 BP 191 / 85; Pulse 75; Resp 20; Pulse Ox 95% on R/A; ca1 12:31 BP 182 / 82; Pulse 73; Resp 19; Pulse Ox 95% on R/A; ca1 13:07 BP 178 / 73; Pulse 77; Resp 17 S; Pulse Ox 97% on R/A; ca1 13:29 Weight 58.97 kg (R); Height 5 ft. 2 in. (157.48 cm) (R); ca1 13:29 Body Mass Index 23.78 (58.97 kg, 157.48 cm) ca1 ED Course: 10:12 Patient arrived in ED. as 10:12 Gerardo Adam MD is Private Physician. as 10:12 Elli Britt MD is Private Physician. as 10:21 Chris Hammond MD is Attending Physician. rn 10:23 Yandy Luna RN is Primary Nurse. ca1 10:25 Triage completed. ca1 10:29 Arm band placed on right wrist. ca1 10:49 Patient has correct armband on for positive identification. Placed in gown. Bed in low ca1 position. Call light in reach. Side rails up X2. monitor technician on. Pulse ox on. NIBP on. Warm blanket given. 10:49 No provider procedures requiring assistance completed. ca1 10:53 Urine collected: clean catch specimen, clear, Amount Voided: 120mL. ca1 11:03 CT Abd/Pelvis - Without Contrast In Process Unspecified. EDMS 11:04 CT completed. Patient tolerated procedure well. Patient moved back from CT. bq 11:16 EKG done, by ED staff, reviewed by Chris Hammond MD. Missed attempt(s): 22 gauge in right ca1 antecubital area. by vascular tech. Bleeding controlled, band aid applied, catheter tip intact. 11:22 Missed attempt(s): 22 gauge in right forearm. \E\. Bleeding controlled, band aid applied, ca1 catheter tip intact. 11:35 Missed attempt(s): 24 gauge in right wrist. Bleeding controlled, band aid applied, ca1 catheter tip intact. 11:40 Inserted saline lock: 24 gauge in left antecubital area, using aseptic technique. ca1 ,using aseptic technique. by KJ, vascular tech Blood collected. 12:09 Joe Dunbar MD is Hospitalizing Provider. rn 13:30 Patient admitted, IV remains in place. ca1 Administered Medications: 11:47 Drug: Phenergan 12.5 mg Route: IVP; Site: left antecubital; ca1 12:52 Follow up: Response: No adverse reaction; Nausea is decreased; Vomiting decreased ca1 11:47 Drug: NS 0.9% 500 ml Route: IV; Rate: bolus; Site: left antecubital; ca1 12:52 Follow up: Response: No adverse reaction; IV Status: Completed infusion ca1 Outcome: 12:12 Decision to Hospitalize by Provider. rn 14:01 Admitted to Med/surg accompanied by tech, via stretcher, room 219, with chart, Report ca1 called to LAILA Rosales 14:01 Condition: stable 14:01 Instructed on the need for admit. 14:18 Patient left the ED. ca1 Signatures: Dispatcher [employer] EDMS Radha Whitlock Amelia as Nieto, Roman, MD MD rn AcYandy villanueva RN RN ca1 Corrections: (The following items were deleted from the chart) 11:26 11:17 BP 210 / 82; Pulse 19bpm; Resp 69bpm; Pulse Ox 97% RA; ca1 ca1 11:45 11:40 Inserted saline lock: 24 gauge in left antecubital area, using aseptic technique. ca1 ,using aseptic technique. by LUIS, vascular tech ca1 12:55 10:49 Cardiovascular: Heart tones S1 S2 present Capillary refill < 3 seconds Patient's ca1 skin is warm and dry. ca1
--- NOTE | 2019-11-10 12:13 | EDPHYS ---
Physician Documentation [facility] Name: Radha Lara Age: 84 yrs Sex: Female : 1935 Arrival Date: 11/10/2019 Time: 10:12 Bed 7 Private MD: Elli Britt ED Physician Chris Hammond HPI: 11/09 10:38 This 84 yrs old Female presents to ER via Wheelchair with complaints of rn Nausea/Vomiting. 10:38 The patient presents to the emergency department with nausea, vomiting. Onset: The rn symptoms/episode began/occurred 1 week(s) ago. Possible causes: unknown. The symptoms are aggravated by nothing. The symptoms are alleviated by nothing. Associated signs and symptoms: Pertinent positives: nausea, vomiting, Pertinent negatives: abdominal pain, fever. Severity of symptoms: At their worst the symptoms were moderate in the emergency department the symptoms are unchanged. The patient has experienced similar episodes in the past. Reports nausea/vomiting, not bale to keep much down, seen here recently, given zofran prn to go home with, reports not really working. No headache or focal neuro complaint. No chest pain/sob. No current abd pain. Reports feels generalized weakness and fatigue. No syncope. . Historical: - Allergies: 10:29 Aspirin; ca1 10:29 Codeine; ca1 10:29 Ibuprofen; ca1 10:29 Iodinated Contrast Media - IV Dye; ca1 10:29 Lisinopril; ca1 10:29 Niacin; ca1 10:29 Nitrofurantoin; ca1 10:29 nitrous oxide; ca1 10:29 vicoden; ca1 10:29 Zoloft; ca1 10:29 Clonidine; ca1 - Home Meds: 10:29 amlodipine 5 mg tab 1 tab once daily for Hypertension [Active]; carvedilol 25 mg Oral ca1 tab 1 tab 2 times per day [Active]; cranberry Oral twice a day [Active]; Crestor 40 mg Oral tab once daily [Active]; Eliquis 5 mg Oral tab 2 times per day [Active]; furosemide 40 mg Oral tab as needed [Active]; hydralazine 100 mg Oral tab 3 times per day [Active]; irbesartan 150 mg Oral tab 1 tab once daily [Active]; levothyroxine 75 mcg tab 1 tab once daily [Active]; magnesium oxide 500 mg Oral cap [Active]; metformin 500 mg Oral Tb24 1 tab 2 times per day [Active]; Multiple Vitamins Oral tab daily [Active]; omeprazole 40 mg Oral cpDR 1 cap once daily [Active]; Plavix 75 mg Oral tab 1 tab once daily [Active]; Probiotic Oral [Active]; Vitamin B-12 2,000 mcg Oral TbER daily [Active]; Vitamin D3 1,000 unit Oral chew daily [Active]; vitamin E Oral once daily [Active]; - PMHx: 10:29 UTI; acid reflux; ADD/ADHD; Atrial Fib; CVA; Diabetes - NIDDM; Hyperlipidemia; ca1 Hypertension; Kidney stones; PE; Sleep Apnea; TIA; - PSHx: 10:29 Hysterectomy; Cholecystectomy; Tonsillectomy; ca1 - Immunization history:: Adult Immunizations up to date, Pneumococcal vaccine is up to date, Flu vaccine is not up to date. - Social history:: Smoking status: Patient denies any tobacco usage or history of. - Family history:: not pertinent. - Hospitalizations: : No recent hospitalization is reported. ROS: 10:38 Constitutional: Negative for fever, chills, and weight loss, Eyes: Negative for injury, rn pain, redness, and discharge, Neck: Negative for injury, pain, and swelling, Cardiovascular: Negative for chest pain, palpitations, and edema, Respiratory: Negative for shortness of breath, cough, wheezing, and pleuritic chest pain, Abdomen/GI: + nausea/vomiting, neg for abd pain MS/Extremity: Negative for injury and deformity, Skin: Negative for injury, rash, and discoloration, Neuro: + generalized weakness Exam: 10:38 Constitutional: This is a well developed, well nourished patient who is awake, alert, rn and in no acute distress. Head/Face: Normocephalic, atraumatic. ENT: dry MM Cardiovascular: Regular rate and rhythm. No pulse deficits. Respiratory: No increased work of breathing, no retractions or nasal flaring. Abdomen/GI: soft, non-tender, non-distended Skin: Warm, dry MS/ Extremity: Pulses equal, no cyanosis. Neuro: Awake and alert, GCS 15, oriented to person, place, time, and situation. Cranial nerves II-XII grossly intact. Motor strength 4/5 in all extremities. Sensory grossly intact. Cerebellar exam normal. 11:35 ECG was reviewed by the Attending Physician. rn Vital Signs: 10:23 BP 196 / 68; Pulse 72; Resp 18 S; Temp 98.6(O); Pulse Ox 94% on R/A; ca1 11:17 BP 210 / 82; Pulse 69; Resp 19; Pulse Ox 97% on R/A; ca1 11:52 BP 191 / 85; Pulse 75; Resp 20; Pulse Ox 95% on R/A; ca1 12:31 BP 182 / 82; Pulse 73; Resp 19; Pulse Ox 95% on R/A; ca1 13:07 BP 178 / 73; Pulse 77; Resp 17 S; Pulse Ox 97% on R/A; ca1 13:29 Weight 58.97 kg (R); Height 5 ft. 2 in. (157.48 cm) (R); ca1 13:29 Body Mass Index 23.78 (58.97 kg, 157.48 cm) ca1 MDM: 10:21 Patient medically screened. rn 12:08 Differential diagnosis: Nonspecific abd pain, gastritis, pancreatitis, diverticulitis, rn viral gastroenteritis, gastroenteritis. Data reviewed: vital signs, nurses notes, lab test result(s), radiologic studies, CT scan, and as a result, I will admit patient. Counseling: I had a detailed discussion with the patient and/or guardian regarding: the historical points, exam findings, and any diagnostic results supporting the discharge/admit diagnosis, lab results, radiology results, the need for further work-up and treatment in the hospital. Response to treatment: the patient's symptoms have mildly improved after treatment, and as a result, I will admit patient. Admission orders: after a detailed discussion of the patient's condition and case, the admit orders are written by me. ED course: Pt still nauseous, no acute findings on CT abdomen, normal WBC, failed outpt with zofran and had to return, will obs in hospital for fluids and prn meds. . 11/09 10:33 Order name: Basic Metabolic Panel; Complete Time: 12:05 rn 11/09 10:33 Order name: CBC with Diff; Complete Time: 11:50 rn 11/09 10:33 Order name: Creatinine for Radiology; Complete Time: 12:05 rn 11/09 10:33 Order name: Hepatic Function; Complete Time: 12:05 rn 11/09 10:33 Order name: Lipase; Complete Time: 12:05 rn 11/09 10:33 Order name: Urine Microscopic Only; Complete Time: 11:43 rn 11/09 10:33 Order name: IV Saline Lock; Complete Time: 11:37 rn 11/09 10:33 Order name: Labs collected and sent; Complete Time: 11:38 rn 11/09 10:33 Order name: CT Abd/Pelvis - Without Contrast; Complete Time: 11:43 rn 11/09 10:33 Order name: EKG; Complete Time: 10:33 rn 11/09 11:07 Order name: Urine Dipstick--Ancillary (enter results); Complete Time: 11:43 eb 11/09 14:09 Order name: Osmolality, Serum EDMS 11/09 10:33 Order name: EKG - Nurse/Tech; Complete Time: 11:15 rn 11/09 10:33 Order name: Urine Dipstick-Ancillary (obtain specimen); Complete Time: 10:58 rn EC:35 Rate is 78 beats/min. Rhythm is irregularly irregular. QRS [place] is Normal. [place] interval rn is normal. QRS interval is normal. QT interval is normal. No Q waves. T waves are Normal. No ST changes noted. Clinical impression: Atrial Fibrillation. Interpreted by me. Reviewed by me. Administered Medications: 11:47 Drug: Phenergan 12.5 mg Route: IVP; Site: left antecubital; ca1 12:52 Follow up: Response: No adverse reaction; Nausea is decreased; Vomiting decreased ca1 11:47 Drug: NS 0.9% 500 ml Route: IV; Rate: bolus; Site: left antecubital; ca1 12:52 Follow up: Response: No adverse reaction; IV Status: Completed infusion ca1 Disposition: 11/10/19 12:12 Hospitalization ordered by Joe Dunbar for Observation. Preliminary diagnosis are Intractable vomiting, Dehydration, Weakness. - Bed requested for Telemetry/MedSurg (observation). - Status is Observation. ca1 - Condition is Stable. - Problem is new. - Symptoms are unchanged. Signatures: Dispatcher [employer] EDJennie Chavez RN RN dw Nieto, Roman, MD MD rn AcYandy villanueva RN RN ca1 Corrections: (The following items were deleted from the chart) 10:41 10:38 Constitutional: This is a well developed, well nourished patient who is awake, rn alert, and in no acute distress. Head/Face: Normocephalic, atraumatic. ENT: dry MM Cardiovascular: Regular rate and rhythm. No pulse deficits. Respiratory: No increased work of breathing, no retractions or nasal flaring. Abdomen/GI: soft, non-tender, non-distended Skin: Warm, dry MS/ Extremity: Pulses equal, no cyanosis. Neuro: Awake and alert, GCS 15 rn 13:35 12:12 Hospitalization Ordered by Joe Dunbar MD for Observation. Preliminary diagnosis dw is Intractable vomiting; Dehydration; Weakness. Bed requested for Telemetry/MedSurg (observation). Status is Observation. Condition is Stable. Problem is new. Symptoms are unchanged. rn 14:18 13:35 11/10/2019 12:12 Hospitalization Ordered by Joe Dunbar MD for Observation. ca1 Preliminary diagnosis is Intractable vomiting; Dehydration; Weakness. Bed requested for Telemetry/MedSurg (observation). Status is Observation. Condition is Stable. Problem is new. Symptoms are unchanged. dw
--- NOTE | 2019-11-10 13:01 | P.HP ---
Certification for Inpatient Patient admitted to: Observation With expected LOS: <2 Midnights Practitioner: I am a practitioner with admitting privileges, knowledge of patient current condition, hospital course, and medical plan of care. Services: Services provided to patient in accordance with Admission requirements found in Title 42 Section 412.3 of the Code of Federal Regulations Patient History Date of Service: 11/10/19 Reason for admission: Nausea vomiting History of Present Illness: Patient is an 84-year-old female with past medical history of atrial fibrillation on Eliquis diabetes hypertension gastroesophageal reflux disease heart disease, stroke and history of pulmonary embolism who has had multiple admissions for nausea and vomiting. Patient was seen last in the ER 2 days ago with similar complaints of nausea. Patient states that the taste of food makes her nauseated and has vomited. She is able to tolerate liquids and boost. Patient's symptoms are constant moderate progressively worsening. Patient denies any choking episodes. No blood in the stool. No constipation fever chills shortness of breath or cough. No Close exposure to the recent viral pandemic. she denies any changes in her medications. She was last seen by GI 3 years ago and had a colonoscopy by Dr. youssef but has not seen GI since. Denies any recent antibiotic use. In the ER her workup revealed a sodium of 129 patient has had previous episodes of hyponatremia. UA was negative CT scan of the abdomen was unremarkable. Patient was then referred for admission. When seen in the ER she was awake alert oriented x3 in some mild distress. Allergies aspirin Adverse Reaction (Verified 09/12/19 11:53) RAPID HEART RATE clonidine Adverse Reaction (Verified 09/12/19 11:53) Rapid Heart Rate codeine [Codeine] Adverse Reaction (Verified 09/12/19 11:53) CONFUSION hydrocodone bitartrate [From Vicodin] Adverse Reaction (Verified 09/12/19 11:53) CONFUSION iodine Adverse Reaction (Verified 09/12/19 11:53) NAUSEA lisinopril Adverse Reaction (Verified 09/12/19 11:53) COUGH niacin Adverse Reaction (Verified 09/12/19 11:53) Rash nitrofurantoin Adverse Reaction (Verified 09/12/19 11:53) Itching/Hives/Rash nitrous oxide [Nitrous Oxide] Adverse Reaction (Verified 09/12/19 11:53) Shortness of breath iodine dye Allergy (Intermediate, Uncoded 09/12/19 11:53) Itching/Hives/Rash Home medications list reviewed: Yes Home Medications: Amlodipine [Norvasc*] 1 tab PO BEDTIME 02/18/19 Apixaban [Eliquis] 1 tab PO BID 02/18/19 Cholecalciferol (Vitamin D3) [Vitamin D3] 1 cap PO DAILY 02/18/19 Clopidogrel Bisulfate [Plavix*] 1 tab PO BEDTIME 02/18/19 Cranberry 4,200 mg PO BID 02/18/19 Hydralazine HCl [Apresoline] 1 tab PO TID 02/18/19 Irbesartan [Avapro*] 1 tab PO DAILY 02/18/19 L.acidoph,Paracasei, B.lactis [Probiotic] 1 cap PO BEDTIME 02/18/19 Magnesium Oxide [Magnesium] 1 tab PO DAILY 02/18/19 Metformin ER [Glucophage ER*] 1 tab PO BID 02/18/19 Multivitamin [Multivitamins] 1 cap PO DAILY 02/18/19 Omeprazole [Prilosec] 1 tab PO DAILY 02/18/19 Rosuvastatin Calcium [Crestor] 1 tab PO DAILY 02/18/19 Vitamin E 1 tab PO DAILY 02/18/19 carvediloL [Coreg*] 1 tab PO BID 02/18/19 Levothyroxine [Synthroid*] 75 mcg PO [id number] #30 tab 02/19/19 Acetaminophen [Tylenol Arthritis] 1 tab PO SEECOM 09/12/19 Cyanocobalamin [Vitamin B-12*] 2,000 mcg PO DAILY 09/12/19 Furosemide 40 mg PO SEECOM 09/12/19 Cefuroxime Axetil [Cefuroxime] 500 mg PO BID #8 tab 09/14/19 - Past Medical/Surgical History Diabetic: Yes -: History of nephrolithiasis -: History of TIA- 2 -: History of pulmonary embolism on chronic anti coagulation therapy -: Diabetes mellitus type 2, [id number] -: CAD -: GERD -: Atrial fibrillation on chronic anti coagulation therapy -: Hyperlipidemia -: HTN -: Depression with anxiety -: UTI -: Tonsillectomy -: Removal of colon polyps -: CABG -: Cholecystectomy -: Hysterectomy -: Bone Spurs removed -: Triple Bypass -: 3 Stents in right kidney Psychosocial/ Personal History: Patient lives at home. 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 - Family History Mother -: Heart disease, Other (see notes) Notes: DC. Age of 64 Father -: Heart disease Notes: Age of 77 - Social History Smoking Status: Never smoker Alcohol use: No CD- Drugs: No Caffeine use: Yes Place of Residence: Home Review of Systems 10-point ROS is otherwise unremarkable Gastrointestinal: As per HPI Physical Examination - Vital Signs Temperature: 98.6 F Blood Pressure: 196/68 Pulse: 72 Respirations: 18 Pulse Ox (%): 94 - Physical Exam General: Alert, Oriented x3, Mild distress, Other (Elderly female) HEENT: Atraumatic, PERRLA, Mucous membr. moist/pink, EOMI, Sclerae nonicteric Neck: Supple, JVD not distended Respiratory: Clear to auscultation bilaterally, Normal air movement Cardiovascular: No edema, Normal pulses, Normal S1 S2, Irregular heart rate/rhythm Gastrointestinal: Normal bowel sounds, Soft and benign, Non-distended, No tenderness Musculoskeletal: No tenderness Integumentary: No rashes, No erythema Neurological: Normal speech, Normal strength at 5/5 x4 extr, Normal tone, Cranial nerves 3-12 intact, Normal affect - Studies Laboratory Data (last 24 hrs) 11/10/19 11:40: Creatinine 0.57 11/10/19 11:40: WBC 9.1 D, Hgb 13.1, Hct 38.9, Plt Count 244 11/10/19 11:40: Sodium 129 L, Potassium 4.3, BUN 18, Creatinine 0.55, Glucose 131 H, Total Bilirubin 0.5, AST 20, ALT 26, Alkaline Phosphatase 102, Lipase 123 Imagings Data: EXAM DESCRIPTION: CT - Abdomen Pelvis Wo Contrast - 11/10/2019 11:03 am CLINICAL HISTORY: Abdominal pain. nausea/vomiting COMPARISON: Stone Protocol dated 09/12/2019; Abdomen Pelvis Wo Contrast dated 08/18/2019; Abdomen Pelvis W Contrast dated 08/04/2019 TECHNIQUE: CT imaging of the abdomen and pelvis was performed without contrast. Solid organ, bowel and vascular assessment is limited due to lack of IV and oral contrast. All CT scans are performed using dose optimization technique as appropriate and may include automated exposure control or mA/KV adjustment according to patient size. FINDINGS: The lower lung de souza are clear. The liver demonstrates no focal mass or biliary dilatation. Cholecystectomy clips are seen.The spleen, pancreas, adrenal glands are normal. No urinary tract stone or obstructive uropathy identified. Complex cystic right renal lesion of wall calcifications are unchanged. No bowel obstruction, free air, free fluid or abscess. The appendix is not identified as a discrete structure, however, no secondary findings of appendicitis are identified. Mild fecal retention is seen in the rectosigmoid colon. Heavy aortic atherosclerosis seen. The osseous structures are within normal limits. IMPRESSION: No urinary tract stone or obstructive uropathy is seen. Stable mildly complex cystic right renal lesion. Mild fecal retention with mild wall thickening is seen involving the rectosigmoid colon. Heavy atherosclerosis. A limited non-contrast examination was performed as detailed. Assessment and Plan - Plan 84-year-old female with 1. Intractable nausea and vomiting. Unclear etiology. May be cyclical vomiting syndrome. Will start on clear liquid diet and advance as tolerated. Zofran IV. CT scan of the abdomen is negative. GI is unavailable. 2. Generalized weakness. Likely secondary to above. PT eval 3. Hyponatremia. Will start on D5 half NS. Will correct slowly. Check serum osmolality. Consult nephrology. 4. Atrial fibrillation with controlled ventricular rate. Continue Eliquis. Continue rate control 5. Diabetes mellitus type 2 with hyperglycemia. Start on sliding scale insulin. Monitor blood glucose levels 6. Essential hypertension. Not well controlled. Add p.r.n. hydralazine 7. Gastroesophageal reflux disease. Will start on IV Protonix. 8. Coronary artery disease [place] artery [place] heart without angina. Resume Plavix 9. History of TIA. Continue Plavix 10. History of PE. Continue Eliquis DVT prophylaxis patient is already on Eliquis - Advance Directives Does patient have a Living Will: No Does patient have a Durable POA for Healthcare: No - Code Status/Comfort Care Code Status Assessed: Yes
[2019-11-10] MEDS ORDERED: D5 0.45 NS 1,000 ML IV SCH (14:41)
[2019-11-10] MEDS ORDERED: SODIUM CHLORIDE 0.9% 10ML INJ IV PRN (14:41)
[2019-11-10] MEDS: HYDRALAZINE HCL 20 MG/ML VIAL IV PRN (14:59)
[2019-11-10] MEDS ORDERED: D5 0.45 NS 1,000 ML IV ONE (14:59)
[2019-11-10] MEDS: INSULIN -REGULAR HUMAN 50 UNIT/0.5 ML ML SQ SCH ×2 (16:29→21:00)
[2019-11-10] MEDS: NA CHLORIDE 0.9% 1,000 ML IV SCH (18:16)
[2019-11-10] MEDS: PANTOPRAZOLE 40 MG INJ IVP SCH (18:16)
[2019-11-10] MEDS: ONDANSETRON 4 MG/2 ML VIAL IV PRN (18:16)
--- NOTE | 2019-11-10 20:44 | CON ---
Requesting Provider: Dr. Joe Dunbar. Reason For Consultation: Hyponatremia. History Of Present Illness: Ms. Lara, 84-year-old female with a history of CVA and hypertension, who presents to the hospital with acute nausea and vomiting. Patient has had a 5-day history of graciela sea and was progressed to vomiting. Patient's symptoms were not resolving and thus she came to the [facility] for further evaluation. Patient is awaiting GI workup. A consultation was requested for hyp onatremia. Patient did have a sodium of 129 on admission. Her prior records were reviewed. It appe ars the patient has had elements of hyponatremia during multiple admissions for nausea and vomiting. The patient denies any excessive water intake. The patient does admit to persistent nausea as stated . She denies any NSAID use. Patient's poor p.o. intake has been very poor during her acute illness. Past Medical History: Reviewed. Family History: Noncontributory. Physical Examination: Vital Signs: Blood pressure 157/55, pulse 76, temperature 97.6. General: Elderly, no acute distress. HEENT: Shows dry mucous membranes. Heart: Regular rate and rhythm. No murmurs, rubs, gallops. Lungs: Clear to auscultation bilaterally. Abdomen: Soft, nontender, nondistended. Extremities: No significant edema. Laboratory Data: Sodium 129, potassium 4.3, chloride 95, CO2 28, BUN 18, creatinine 0.55, glucose 14 1, calcium 8.7. Hepatic panel within normal limits. UA is noted. CBC also noted. There is no micr obiology data. Medications: Medications have been received were D5 half NS, also some antiemetics. The patient con tinues on D5 half NS. Impression: 1.Hyponatremia, likely depletional. 2.Persistent nausea and vomiting. 3.Uncontrolled hypertension. 4.Chronic atrial fibrillation. Plan: 1.At this point, patient will need a change in IV fluids, D5 half NS will be discontinued and I will start the patient on normal saline at 50 mL an hour. Given that the patient's blood pressure is unc ontrolled, I will avoid a higher rate of replenishment at this time, so as to avoid an acute exacerba tion of possible underlying diastolic congestive heart failure from a combination of IV fluids and un controlled hypertension. 2.I have asked the nurse that was there with me to restart the patient's home medications, patient c an be covered with hydralazine for uncontrolled hypertension, but the patient is on several antihyper tensive medications which the patient would need to restart tonight. Please continue antiemetics per primary team. Patient will need GI evaluation. I do not believe the patient needs a fluid restrict ion at this time. We will start with normal saline and continue to follow. Please increase rate onc e blood pressure is controlled to 75 mL/hour. Dr. Dunbar, thank you kindly for the consultation. YA Voice ID: [id number] Report ID: [id number]
[2019-11-10] MEDS: HYDRALAZINE HCL 25 MG TABLET PO SCH (21:19)
[2019-11-10] MEDS: carvediloL 25 MG TAB PO SCH (21:19)
[2019-11-10] MEDS: APIXABAN 5 MG TABLET PO SCH (21:19)
[2019-11-11 05:58] LABS: Absolute Lymphocytes (CBC) 2.5 K/uL (0.7-4.9); Basophils % 0.4 % (0-1.3); Hematocrit 37.9 % (36.0-45.0); Lymphocytes % 33.6 % (15.3-44.8); MPV 7.4 fL (7.6-11.3); RBC Red Blood Cell Count 3.93 M/uL (3.86-4.86)
[2019-11-11 06:16] LABS: Albumin 3.2 g/dL (3.4-5.0); Bilirubin Total 0.6 mg/dL (0.2-1.0); Potassium 3.8 mmol/L (3.5-5.1); Protein, Total 6.4 g/dL (6.4-8.2)
[2019-11-11] MEDS: LEVOTHYROXINE SOD 0.075 MG TAB PO SCH (06:21)
[2019-11-11 07:00] LABS: Blood Morphology Comment NOT SEEN (NOT SEEN); Platelet Estimate ADEQ; Urine White Blood Cell Casts OK
[2019-11-11] MEDS: INSULIN -REGULAR HUMAN 50 UNIT/0.5 ML ML SQ SCH ×4 (07:30→21:00)
--- NOTE | 2019-11-11 07:40 | EKG ---
Test Date: 2019-11-10 Test Time: 11:11:37 Postal Inspector: YUE MEASUREMENT RESULTS: Intervals: Rate: 78 MS: QRSD: 92 QT: 392 QTc: 446 [place]: P: MS: QRS: 39 T: 32 INTERPRETIVE STATEMENTS: Atrial fibrillation Anterior infarct, age undetermined Abnormal ECG Compared to ECG 11/09/2019 08:16:32 No significant changes Electronically Signed On 11-11-19 07:38:51 CDT by Jass Lance
[2019-11-11] MEDS ORDERED: POTASSIUM CL SA 10 MEQ TAB PO ONE (09:00)
[2019-11-11] MEDS: PANTOPRAZOLE 40 MG INJ IVP SCH (09:18)
[2019-11-11] MEDS: ROSUVASTATIN 10 MG TAB PO SCH (09:20)
[2019-11-11] MEDS: carvediloL 25 MG TAB PO SCH ×2 (09:21→21:13)
[2019-11-11] MEDS: IRBESARTAN 150 MG TAB PO SCH (09:21)
[2019-11-11] MEDS: HYDRALAZINE HCL 25 MG TABLET PO SCH ×3 (09:22→21:13)
[2019-11-11] MEDS: APIXABAN 5 MG TABLET PO SCH ×2 (09:22→21:14)
[2019-11-11] MEDS: ONDANSETRON 4 MG/2 ML VIAL IV PRN (09:23)
[2019-11-11] MEDS: ACETAMINOPHEN 500 MG TAB PO PRN (10:59)
--- NOTE | 2019-11-11 11:31 | P.PN ---
Subjective Date of Service: 11/11/19 Chief Complaint: Nausea vomiting Subjective: No new changes Patient seen and examined chart reviewed and case discussed with RN. Patient still complaining of nausea and pain. Had full liquid diet today Review of Systems 10-point ROS is otherwise unremarkable Gastrointestinal: As per HPI Physical Examination - Vital Signs Temperature: 98.3 F Blood Pressure: 172/77 Pulse: 75 Respirations: 20 Pulse Ox (%): 94 - Physical Exam General: Alert, Oriented x3, Mild distress, Other (Ill-appearing elderly female) HEENT: Atraumatic, PERRLA, EOMI Neck: Supple, JVD not distended Respiratory: Clear to auscultation bilaterally, Normal air movement, Other (No wheezing or stridor) Cardiovascular: No edema, Normal pulses, Normal S1 S2, Irregular heart rate/rhythm Gastrointestinal: Normal bowel sounds, Soft and benign, Non-distended, Tenderness Musculoskeletal: No tenderness Integumentary: No rashes Neurological: Normal speech, Normal strength at 5/5 x4 extr, Normal tone, Normal affect - Studies Laboratory Data (last 24 hrs) 11/10/19 11:40: Creatinine 0.57 11/10/19 11:40: WBC 9.1 D, Hgb 13.1, Hct 38.9, Plt Count 244 11/10/19 11:40: Sodium 129 L, Potassium 4.3, BUN 18, Creatinine 0.55, Glucose 131 H, Total Bilirubin 0.5, AST 20, ALT 26, Alkaline Phosphatase 102, Lipase 123 Medications List Reviewed: Yes Assessment And Plan - Plan 84-year-old female with 1. Intractable nausea and vomiting. Unclear etiology. May be cyclical vomiting syndrome. Not tolerating full liquids. Zofran IV. CT scan of the abdomen is negative. GI is unavailable. 2. Generalized weakness. Likely secondary to above. PT eval 3. Hyponatremia. Continue NS. Improving. Appreciate nephrology input. 4. Atrial fibrillation with controlled ventricular rate. Continue Eliquis. Continue rate control 5. Diabetes mellitus type 2 with hyperglycemia. Continue sliding scale insulin. Monitor blood glucose levels 6. Essential hypertension. Not well controlled. Add p.r.n. hydralazine. Home medications have been restarted. 7. Gastroesophageal reflux disease. Continue IV Protonix. 8. Coronary artery disease [place] artery [place] heart without angina. Resume Plavix 9. History of TIA. Continue Plavix 10. History of PE. Continue Eliquis DVT prophylaxis patient is already on Eliquis Dc home once sodium is improved and able to tolerate diet. Will need GI as outpatient Discharge Plan: Home Plan to discharge in: 24 Hours
[2019-11-11] MEDS: NA CHLORIDE 0.9% 1,000 ML IV SCH (13:48)
[2019-11-11] MEDS: AMLODIPINE 10 MG TAB PO SCH (16:00)
[2019-11-11] MEDS: HYDRALAZINE HCL 20 MG/ML VIAL IV PRN (18:36)
--- NOTE | 2019-11-11 20:05 | PN ---
Date of Progress Note: 11/11/2019 Subjective: Patient is seen at the bedside. No overnight events reported. The patient's nausea has shown some improvement, but the patient does still feels fatigued. Denies any fevers, chills, chest pain, shortness of breath, vomiting, or diarrhea. Objective: Vital Signs: Blood pressure is 172/77, pulse 75, afebrile. General: No acute distress. Elderly. Heart: Regular rate and rhythm. No murmurs, rubs, gallops. Lungs: Clear to auscultation bilaterally. Abdomen: Soft, nontender, nondistended. Extremities: No significant edema. Laboratory Data: CBC: Reviewed, stable. Serum chemistry: Sodium 133, potassium 3.8, chloride 101, CO2 of 27, BUN 14, creatinine 0.67, glucose 115. Current Medications: Patient continues on normal saline at 50 mL/h. Remainder of medications were r eviewed. Impression: 1.Hyponatremia depletional. 2.Nausea and vomiting, somewhat improved. 3.Uncontrolled hypertension. 4.Chronic atrial fibrillation. Plan: Patient's IV fluids can be continued at the current rate. Patient's hypertension remains unco ntrolled and I have restarted the patient's home dose of amlodipine 10 mg daily. Patient was taking in the evening and may need to be changed to an evening dose once blood pressure overall stabilizes. Continue patient on a low-sodium cardiac diet, titrate as per primary team. Consider GI evaluation. We will continue to follow. /CHIKI Voice ID: [id number] Report ID: [id number]
[2019-11-12] MEDS: HYDRALAZINE HCL 20 MG/ML VIAL IV PRN (02:18)
[2019-11-12 04:26] LABS: Absolute Lymphocytes (CBC) 1.9 K/uL (0.7-4.9); Basophils % 0.5 % (0-1.3); Hematocrit 37.7 % (36.0-45.0); Lymphocytes % 24.2 % (15.3-44.8); MPV 7.4 fL (7.6-11.3); RBC Red Blood Cell Count 3.92 M/uL (3.86-4.86)
[2019-11-12 04:39] LABS: BUN Blood Urea Nitrogen 8 mg/dL (7-18); Bicarbonate 27 mmol/L (21-32); Glucose Level 135 mg/dL (74-106); Potassium 3.7 mmol/L (3.5-5.1); Sodium Level 135 mmol/L (136-145)
[2019-11-12] MEDS: LEVOTHYROXINE SOD 0.075 MG TAB PO SCH (05:25)
[2019-11-12] MEDS ORDERED: POTASSIUM CL SA 10 MEQ TAB PO ONE (07:00)
[2019-11-12] MEDS: INSULIN -REGULAR HUMAN 50 UNIT/0.5 ML ML SQ SCH ×4 (07:30→21:00)
--- NOTE | 2019-11-12 09:22 | RAD REPORT ---
EXAM DESCRIPTION: RAD - Esophagram Only - 11/12/2019 9:01 am CLINICAL HISTORY: Dysphagia, nausea and vomiting COMPARISON: None. FINDINGS: An esophagram was performed and shows normal bolus formation and normal initiation of swal lowing. Mild pooling of contrast seen in the valleculae and piriform sinuses. There was no aspiration or laryngeal penetration observed. Primary peristalsis is only slightly decreased. No tertiary contr actions or esophageal spasm seen. There was slight delay in clearing of all contrast from the esophag us. Mild extrinsic impression on the cervical esophagus seen from cervical spine degenerative change. The re is no intrinsic esophageal stricture, mass or web. No hiatal hernia demonstrated. No reflux occurred during the examination. There were 4 cine loop sequences obtained. Fluoro time was 18 seconds. IMPRESSION: No esophageal stricture, mass or web identifiable. Slight decrease in primary peristalsis with minimal delay in clearing of contrast. No esophageal spas m or tertiary contractions. Minimal pooling in the valleculae and piriform sinuses without aspiration or laryngeal penetration se en.
[2019-11-12] MEDS: APIXABAN 5 MG TABLET PO SCH ×2 (10:11→21:22)
[2019-11-12] MEDS: PANTOPRAZOLE 40 MG INJ IVP SCH (10:11)
[2019-11-12] MEDS: HYDRALAZINE HCL 25 MG TABLET PO SCH ×3 (10:12→21:00)
[2019-11-12] MEDS: ROSUVASTATIN 10 MG TAB PO SCH (10:12)
[2019-11-12] MEDS: AMLODIPINE 10 MG TAB PO SCH (10:13)
[2019-11-12] MEDS: IRBESARTAN 150 MG TAB PO SCH ×2 (10:13→21:22)
[2019-11-12] MEDS: carvediloL 25 MG TAB PO SCH ×2 (10:13→21:23)
[2019-11-12] MEDS: NA CHLORIDE 0.9% 1,000 ML IV SCH (10:19)
[2019-11-12 12:39] LABS: C.diff Antigen/Toxin Ag neg : Tox neg (NEG : NEG)
--- NOTE | 2019-11-12 15:34 | P.PN ---
Subjective Date of Service: 11/12/19 Primary Care Provider: none Chief Complaint: Nausea vomiting Subjective: Improving Physical Examination - Vital Signs Temperature: 97.5 F Blood Pressure: 136/58 Pulse: 64 Respirations: 16 Pulse Ox (%): 97 - Physical Exam General: Alert, Cooperative HEENT: Atraumatic Neck: Supple Respiratory: Clear to auscultation bilaterally, Normal air movement Cardiovascular: Normal pulses, Regular rate/rhythm Gastrointestinal: Normal bowel sounds, Soft and benign, Non-distended Neurological: Normal speech, Normal strength at 5/5 x4 extr, Normal tone, Normal affect - Studies Medications List Reviewed: Yes Assessment & Plan Discharge Plan: Other (SNF) Plan to discharge in: 24 Hours Physician Review Additional Text: Impression: Intractable nausea and vomiting likely viral GERD Hyponatremia likely from dehydration Atrial fibrillation on chronic anti coagulation therapy Diabetes mellitus type 2 with hyperglycemia Hypertension History of TIA History of PE on chronic anti coagulation therapy Plan: Encourage and advance diet. CT abdomen negative. No evidence of aspiration. Continue Protonix. Patient desires skilled placement. Will consult medical social consultant to help with this. Anticipate discharge to skilled facility once approved. Time Spent Managing Pts Care (In Minutes): 55
--- NOTE | 2019-11-12 18:10 | P.PN ---
Date of Service: 11/12/19 Vital Signs Temp Pulse Resp BP Pulse Ox 97.2 F 66 15 177/69 H 98 11/12/19 16:00 11/12/19 16:00 11/12/19 16:00 11/12/19 16:00 11/12/19 16:00 Medications Acetaminophen (Tylenol -Extra Strength) 500 mg PO Q4HP PRN PRN Reason: Pain scale 2-4 (Mild) Stop: 12/10/19 14:42 Last Admin: 11/11/19 10:59 Dose: 500 mg Documented by: Amlodipine Besylate (Norvasc) 10 mg PO DAILY [facility] Stop: 12/11/19 14:46 Last Admin: 11/12/19 10:13 Dose: 10 mg Documented by: Apixaban (Eliquis) 5 mg PO BID [facility] Stop: 12/10/19 21:01 Last Admin: 11/12/19 10:11 Dose: 5 mg Documented by: Carvedilol (Coreg) 25 mg PO BID [facility] Stop: 12/10/19 21:01 Last Admin: 11/12/19 10:13 Dose: 25 mg Documented by: Hydralazine HCl (Apresoline) 10 mg IV Q6HP PRN PRN Reason: Titrate to SBP (MUST DEFINE) Stop: 12/10/19 14:42 Last Admin: 11/12/19 02:18 Dose: 10 mg Documented by: Hydralazine HCl (Apresoline) 100 mg PO TID@0900,1500,2100 [facility] Stop: 12/10/19 21:01 Last Admin: 11/12/19 14:40 Dose: 100 mg Documented by: Insulin Human Regular (Novolin -R) 0 unit SQ [facility]; Protocol Stop: 12/10/19 16:31 Last Admin: 11/12/19 16:30 Dose: Not Given Documented by: Irbesartan (Avapro) 150 mg PO BID [facility] Stop: 12/12/19 21:01 Levothyroxine Sodium (Synthroid) 0.075 mg PO [id number] [facility] Stop: 12/11/19 06:01 Last Admin: 11/12/19 05:25 Dose: 0.075 mg Documented by: Ondansetron HCl (Zofran) 4 mg IV Q4H PRN PRN Reason: NAUSEA / VOMITING Stop: 12/10/19 14:42 Last Admin: 11/11/19 09:23 Dose: 4 mg Documented by: Pantoprazole Sodium (Protonix Tab) 40 mg PO DAILYAC [facility]; Protocol Stop: 12/13/19 06:31 Rosuvastatin Calcium (Crestor) 40 mg PO DAILY [facility] Stop: 12/11/19 09:01 Last Admin: 11/12/19 10:12 Dose: 40 mg Documented by: Sodium Chloride (Normal Saline Flush) 10 ml IV BID [facility] Stop: 12/10/19 21:01 Last Admin: 11/12/19 10:14 Dose: 10 ml Documented by: Assessment/ Plan: Nephrology Persistent nausea. +BM, loose Good urine output. CPS stable without CP or SOB. No acute events overnight. Vitals, medications, blood work and imaging reviewed in the chart. NAD. MMM. Neck supple. CTA. RRR. Soft tender Abd. No C/C/E. No rash. AAO. Normal Speech. A/ Stable mildly complex right renal cyst. Hyponatemia in the setting of intractable N/V likely Viral GE. HTN, uncontrolled. DM II with hyperglycemia. Atherosclerosis of aorta. P/ Continue current POC and Medications. Restart IVF as needed. Incrase Irbesartan. Encourge nutrition. AM labs. Daily weight. No NSAIDs. EXAM DESCRIPTION: CT - Abdomen Pelvis Wo Contrast - 11/10/2019 11:03 am CLINICAL HISTORY: Abdominal pain. nausea/vomiting COMPARISON: [facility] Protocol dated 09/12/2019; Abdomen Pelvis Wo Contrast dated 08/18/2019; Abdomen Pelvis W Contrast dated 08/04/2019 TECHNIQUE: CT imaging of the abdomen and pelvis was performed without contrast. Solid organ, bowel and vascular assessment is limited due to lack of IV and oral contrast. All CT scans are performed using dose optimization technique as appropriate and may include automated exposure control or mA/KV adjustment according to patient size. FINDINGS: The lower lung de souza are clear. The liver demonstrates no focal mass or biliary dilatation. Cholecystectomy clips are seen.The spleen, pancreas, adrenal glands are normal. No urinary tract stone or obstructive uropathy identified. Complex cystic right renal lesion of wall calcifications are unchanged. No bowel obstruction, free air, free fluid or abscess. The appendix is not identified as a discrete structure, however, no secondary findings of appendicitis are identified. Mild fecal retention is seen in the rectosigmoid colon. Heavy aortic atherosclerosis seen. The osseous structures are within normal limits. IMPRESSION: No urinary tract stone or obstructive uropathy is seen. Stable mildly complex cystic right renal lesion. Mild fecal retention with mild wall thickening is seen involving the rectosigmoid colon. Heavy atherosclerosis.
[2019-11-13 04:19] LABS: BUN Blood Urea Nitrogen 8 mg/dL (7-18); Bicarbonate 28 mmol/L (21-32); Glucose Level 127 mg/dL (74-106); Potassium 3.9 mmol/L (3.5-5.1); Sodium Level 135 mmol/L (136-145)
[2019-11-13] MEDS: PANTOPRAZOLE 40MG TABLET PO SCH (05:58)
[2019-11-13] MEDS: LEVOTHYROXINE SOD 0.075 MG TAB PO SCH (05:58)
[2019-11-13] MEDS: INSULIN -REGULAR HUMAN 50 UNIT/0.5 ML ML SQ SCH ×4 (07:30→20:19)
[2019-11-13] MEDS ORDERED: POTASSIUM CL SA 10 MEQ TAB PO ONE (09:00)
[2019-11-13] MEDS: ROSUVASTATIN 10 MG TAB PO SCH (09:34)
[2019-11-13] MEDS: HYDRALAZINE HCL 25 MG TABLET PO SCH ×3 (09:34→20:19)
[2019-11-13] MEDS: IRBESARTAN 150 MG TAB PO SCH ×2 (09:35→20:18)
[2019-11-13] MEDS: carvediloL 25 MG TAB PO SCH ×2 (09:35→20:19)
[2019-11-13] MEDS: APIXABAN 5 MG TABLET PO SCH ×2 (09:35→20:19)
[2019-11-13] MEDS: AMLODIPINE 10 MG TAB PO SCH (09:36)
[2019-11-13] MEDS: ONDANSETRON 4 MG/2 ML VIAL IV PRN (17:03)
--- NOTE | 2019-11-13 17:03 | P.PN ---
Subjective Date of Service: 11/13/19 Primary Care Provider: none Chief Complaint: Nausea vomiting Subjective: Doing well Physical Examination - Vital Signs Temperature: 97.3 F Blood Pressure: 157/69 Pulse: 60 Respirations: 16 Pulse Ox (%): 100 - Physical Exam General: Alert, In no apparent distress, Cooperative HEENT: Atraumatic Neck: Supple Respiratory: Clear to auscultation bilaterally, Normal air movement Cardiovascular: Irregular heart rate/rhythm (AFib rate controlled) Gastrointestinal: Normal bowel sounds Neurological: Normal speech, Normal strength at 5/5 x4 extr, Normal tone - Studies Medications List Reviewed: Yes Assessment & Plan Discharge Plan: Other (halfway facility) Plan to discharge in: 24 Hours Physician Review Additional Text: Impression: Intractable nausea and vomiting likely viral GERD Hyponatremia likely from dehydration Atrial fibrillation on chronic anti coagulation therapy Diabetes mellitus type 2 with hyperglycemia Hypertension History of TIA History of PE on chronic anti coagulation therapy Plan: Patient doing well. Overall stable. Awaiting approval for skilled placement. Continue with physical therapy and occupational therapy. Anticipate discharge once approved. Time Spent Managing Pts Care (In Minutes): 55
[2019-11-13] MEDS: ACETAMINOPHEN 500 MG TAB PO PRN (17:33)
--- NOTE | 2019-11-13 20:29 | P.PN ---
Date of Service: 11/13/19 Vital Signs Temp Pulse Resp BP Pulse Ox 97.3 F 69 16 176/72 H 100 11/13/19 17:03 11/13/19 20:19 11/13/19 17:03 11/13/19 20:19 11/13/19 17:03 Medications Acetaminophen (Tylenol -Extra Strength) 500 mg PO Q4HP PRN PRN Reason: Pain scale 2-4 (Mild) Stop: 12/10/19 14:42 Last Admin: 11/13/19 17:33 Dose: 500 mg Documented by: Amlodipine Besylate (Norvasc) 10 mg PO DAILY [facility] Stop: 12/11/19 14:46 Last Admin: 11/13/19 09:36 Dose: 10 mg Documented by: Apixaban (Eliquis) 5 mg PO BID [facility] Stop: 12/10/19 21:01 Last Admin: 11/13/19 20:19 Dose: 5 mg Documented by: Carvedilol (Coreg) 25 mg PO BID [facility] Stop: 12/10/19 21:01 Last Admin: 11/13/19 20:19 Dose: 25 mg Documented by: Hydralazine HCl (Apresoline) 10 mg IV Q6HP PRN PRN Reason: Titrate to SBP (MUST DEFINE) Stop: 12/10/19 14:42 Last Admin: 11/12/19 02:18 Dose: 10 mg Documented by: Hydralazine HCl (Apresoline) 100 mg PO TID@0900,1500,2100 [facility] Stop: 12/10/19 21:01 Last Admin: 11/13/19 20:19 Dose: 100 mg Documented by: Insulin Human Regular (Novolin -R) 0 unit SQ [facility]; Protocol Stop: 12/10/19 16:31 Last Admin: 11/13/19 20:19 Dose: Not Given Documented by: Irbesartan (Avapro) 150 mg PO BID [facility] Stop: 12/12/19 21:01 Last Admin: 11/13/19 20:18 Dose: 150 mg Documented by: Levothyroxine Sodium (Synthroid) 0.075 mg PO [id number] [facility] Stop: 12/11/19 06:01 Last Admin: 11/13/19 05:58 Dose: 0.075 mg Documented by: Ondansetron HCl (Zofran) 4 mg IV Q4H PRN PRN Reason: NAUSEA / VOMITING Stop: 12/10/19 14:42 Last Admin: 11/13/19 17:03 Dose: 4 mg Documented by: Pantoprazole Sodium (Protonix Tab) 40 mg PO DAILYAC [facility]; Protocol Stop: 12/13/19 06:31 Last Admin: 11/13/19 05:58 Dose: 40 mg Documented by: Rosuvastatin Calcium (Crestor) 40 mg PO DAILY [facility] Stop: 12/11/19 09:01 Last Admin: 11/13/19 09:34 Dose: 40 mg Documented by: Sodium Chloride (Normal Saline Flush) 10 ml IV BID [facility] Stop: 12/10/19 21:01 Last Admin: 11/13/19 20:18 Dose: 10 ml Documented by: Assessment/ Plan: Nephrology Feeling much better today. Tolerating her diet well. CPS stable without CP or SOB. No acute events overnight. Vitals, medications, blood work and imaging reviewed in the chart. NAD. MMM. Neck supple. CTA. RRR. Soft tender Abd. No C/C/E. No rash. AAO. Normal Speech. A/ Stable mildly complex right renal cyst. Hyponatemia in the setting of intractable N/V likely Viral GE. HTN, uncontrolled. DM II with hyperglycemia. Atherosclerosis of aorta. P/ Continue current POC and Medications. Encourge nutrition. AM labs PRN. Daily weight. No NSAIDs. Case reviewed with Dr. Martin. EXAM DESCRIPTION: CT - Abdomen Pelvis Wo Contrast - 11/10/2019 11:03 am CLINICAL HISTORY: Abdominal pain. nausea/vomiting COMPARISON: [facility] Protocol dated 09/12/2019; Abdomen Pelvis Wo Contrast dated 08/18/2019; Abdomen Pelvis W Contrast dated 08/04/2019 TECHNIQUE: CT imaging of the abdomen and pelvis was performed without contrast. Solid organ, bowel and vascular assessment is limited due to lack of IV and oral contrast. All CT scans are performed using dose optimization technique as appropriate and may include automated exposure control or mA/KV adjustment according to patient size. FINDINGS: The lower lung de souza are clear. The liver demonstrates no focal mass or biliary dilatation. Cholecystectomy clips are seen.The spleen, pancreas, adrenal glands are normal. No urinary tract stone or obstructive uropathy identified. Complex cystic right renal lesion of wall calcifications are unchanged. No bowel obstruction, free air, free fluid or abscess. The appendix is not identified as a discrete structure, however, no secondary findings of appendicitis are identified. Mild fecal retention is seen in the rectosigmoid colon. Heavy aortic atherosclerosis seen. The osseous structures are within normal limits. IMPRESSION: No urinary tract stone or obstructive uropathy is seen. Stable mildly complex cystic right renal lesion. Mild fecal retention with mild wall thickening is seen involving the rectosigmoid colon. Heavy atherosclerosis.
[2019-11-14] MEDS: ONDANSETRON 4 MG/2 ML VIAL IV PRN ×2 (03:20→20:03)
[2019-11-14] MEDS: ACETAMINOPHEN 500 MG TAB PO PRN (03:22)
[2019-11-14] MEDS: HYDRALAZINE HCL 20 MG/ML VIAL IV PRN (05:09)
[2019-11-14] MEDS: PANTOPRAZOLE 40MG TABLET PO SCH (05:09)
[2019-11-14] MEDS: LEVOTHYROXINE SOD 0.075 MG TAB PO SCH (05:09)
[2019-11-14 05:45] VITALS: BMI 22.1
[2019-11-14 05:58] LABS: BUN Blood Urea Nitrogen 6 mg/dL (7-18); Bicarbonate 29 mmol/L (21-32); Glucose Level 141 mg/dL (74-106); Magnesium 2.1 mg/dL (1.8-2.4); Potassium 4.1 mmol/L (3.5-5.1); Sodium Level 135 mmol/L (136-145)
[2019-11-14] MEDS: INSULIN -REGULAR HUMAN 50 UNIT/0.5 ML ML SQ SCH ×4 (07:30→20:41)
[2019-11-14] MEDS: ROSUVASTATIN 10 MG TAB PO SCH (08:38)
[2019-11-14] MEDS: HYDRALAZINE HCL 25 MG TABLET PO SCH ×3 (08:43→20:40)
[2019-11-14] MEDS: AMLODIPINE 10 MG TAB PO SCH (08:48)
[2019-11-14] MEDS: APIXABAN 5 MG TABLET PO SCH ×2 (08:48→20:39)
[2019-11-14] MEDS: IRBESARTAN 150 MG TAB PO SCH ×2 (08:49→20:40)
[2019-11-14] MEDS: carvediloL 25 MG TAB PO SCH ×2 (08:49→20:41)
--- NOTE | 2019-11-14 16:25 | P.PN ---
Subjective Date of Service: 11/14/19 Primary Care Provider: none Chief Complaint: Nausea vomiting Subjective: Doing well Physical Examination - Vital Signs Temperature: 97.7 F Blood Pressure: 152/64 Pulse: 72 Respirations: 18 Pulse Ox (%): 97 - Physical Exam General: Alert, In no apparent distress, Oriented x3, Cooperative HEENT: Atraumatic Neck: Supple Respiratory: Clear to auscultation bilaterally, Normal air movement Cardiovascular: Normal pulses, Regular rate/rhythm Neurological: Normal speech, Normal strength at 5/5 x4 extr, Normal tone, Normal affect - Studies Medications List Reviewed: Yes Assessment & Plan Discharge Plan: Other ([facility] facility) Plan to discharge in: 24 Hours Physician Review Additional Text: Impression: Intractable nausea and vomiting likely viral GERD Hyponatremia likely from dehydration Atrial fibrillation on chronic anti coagulation therapy Diabetes mellitus type 2 with hyperglycemia Hypertension History of TIA 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 Awaiting approval for skilled placement. Continue physical therapy. Continue with current plan of care and medications. Anticipate discharge soon. Time Spent Managing Pts Care (In Minutes): 55
--- NOTE | 2019-11-14 18:30 | PN ---
Date of Progress Note: 11/14/2019 Subjective: Patient is seen and examined at bedside. She states that she is able to eat food today and she is not having as much nausea. She is unable to eat the meats, but otherwise able to tolerate rest of the food okay. Objective: Vital Signs: Have been reviewed and are stable. General: She appears in no acute distress. Lungs: Clear to auscultation. Abdomen: Soft and nontender. Extremities: Without any evidence of edema. Laboratory Data: Showing sodium improving to 135. Other labs are stable. Medications: Current medications have been reviewed in detail as well. Impression: 1.Hyponatremia secondary to possible syndrome of inappropriate antidiuretic hormone secretion trigge r from severe nausea and vomiting, currently improving at this time. 2.Nausea and vomiting, likely viral gastroenteritis, improving. 3.Atrial fibrillation, on chronic anticoagulation, currently rate controlled and continue with antic oagulation. Plan: Patient's sodium is improved at this time. Continue to advance diet as far as tolerated and m onitor her sodium closely. DONALD/CHIKI Voice ID: [id number] Report ID: [id number]
[2019-11-15] MEDS: LEVOTHYROXINE SOD 0.075 MG TAB PO SCH (05:28)
[2019-11-15] MEDS: PANTOPRAZOLE 40MG TABLET PO SCH (05:28)
[2019-11-15] MEDS: INSULIN -REGULAR HUMAN 50 UNIT/0.5 ML ML SQ SCH ×3 (07:30→16:30)
[2019-11-15] MEDS: IRBESARTAN 150 MG TAB PO SCH (08:43)
[2019-11-15] MEDS: carvediloL 25 MG TAB PO SCH (08:44)
[2019-11-15] MEDS: ROSUVASTATIN 10 MG TAB PO SCH (08:44)
[2019-11-15] MEDS: AMLODIPINE 10 MG TAB PO SCH (08:44)
[2019-11-15] MEDS: APIXABAN 5 MG TABLET PO SCH (08:45)
[2019-11-15] MEDS: HYDRALAZINE HCL 25 MG TABLET PO SCH ×2 (08:45→14:28)
[2019-11-15 09:40] VITALS: O2SAT 97
--- NOTE | 2019-11-15 11:25 | P.PN ---
Subjective Date of Service: 11/15/19 Primary Care Provider: none Chief Complaint: Nausea vomiting Subjective: Doing well Physical Examination - Vital Signs Temperature: 97.4 F Blood Pressure: 160/70 Pulse: 63 Respirations: 18 Pulse Ox (%): 97 - Physical Exam General: Alert, In no apparent distress, Oriented x3, Cooperative HEENT: Atraumatic Neck: Supple Respiratory: Clear to auscultation bilaterally Cardiovascular: Normal pulses, Regular rate/rhythm Gastrointestinal: Normal bowel sounds, Soft and benign, Non-distended Neurological: Normal speech, Normal strength at 5/5 x4 extr, Normal tone, Normal affect - Studies Medications List Reviewed: Yes Assessment & Plan Discharge Plan: Other (custodial facility) Plan to discharge in: 24 Hours Physician Review Additional Text: Impression: Intractable nausea and vomiting likely viral GERD Hyponatremia likely from dehydration Atrial fibrillation on chronic anti coagulation therapy Diabetes mellitus type 2 with hyperglycemia Hypertension History of TIA 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 Patient off antibiotic therapy. Continue oral medications and intake. Continue to work with physical therapy. Awaiting correction facility approval. GERD: Continue medication Hyponatremia likely from dehydration: Resolved. Case discussed with nephrology. Atrial fibrillation on chronic anti coagulation therapy: Overall stable. Continue medication Diabetes mellitus type 2 with hyperglycemia: Overall stable. Continue medication Hypertension: Overall stable. 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
[2019-11-15 13:02] VITALS: TEMP 97
--- NOTE | 2019-11-15 14:47 | P.DS ---
Admission Date: 11/10/19 Discharge Date: 11/15/19 Primary Care Provider: none Disposition: [place] HOME/HOME HEALTH CARE Discharge Condition: GOOD Reason for Admission: Nausea vomiting Consultations: Nephrology-Dr. Wright Procedures: Xray: FINDINGS: An esophagram was performed and shows normal bolus formation and normal initiation of swallowing. Mild pooling of contrast seen in the valleculae and piriform sinuses. There was no aspiration or laryngeal penetration observed. Primary peristalsis is only slightly decreased. No tertiary contractions or esophageal spasm seen. There was slight delay in clearing of all contrast from the esophagus. Mild extrinsic impression on the cervical esophagus seen from cervical spine degenerative change. There is no intrinsic esophageal stricture, mass or web. No hiatal hernia demonstrated. No reflux occurred during the examination. There were 4 cine loop sequences obtained. Fluoro time was 18 seconds. IMPRESSION: No esophageal stricture, mass or web identifiable. Slight decrease in primary peristalsis with minimal delay in clearing of contrast. No esophageal spasm or tertiary contractions. Minimal pooling in the valleculae and piriform sinuses without aspiration or laryngeal penetration seen. CT scan: FINDINGS: The lower lung de souza are clear. The liver demonstrates no focal mass or biliary dilatation. Cholecystectomy clips are seen.The spleen, pancreas, adrenal glands are normal. No urinary tract stone or obstructive uropathy identified. Complex cystic right renal lesion of wall calcifications are unchanged. No bowel obstruction, free air, free fluid or abscess. The appendix is not identified as a discrete structure, however, no secondary findings of appendicitis are identified. Mild fecal retention is seen in the rectosigmoid colon. Heavy aortic atherosclerosis seen. The osseous structures are within normal limits. IMPRESSION: No urinary tract stone or obstructive uropathy is seen. Stable mildly complex cystic right renal lesion. Mild fecal retention with mild wall thickening is seen involving the rectosigmoid colon. Heavy atherosclerosis. A limited non-contrast examination was performed as detailed. 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 Patient was evaluated in the emergency room. Acute renal injury noted Patient admitted for further evaluation. Hospital Course: Patient was admitted for intractable nausea and vomiting. This was likely viral as CT scan unremarkable. Patient was also dehydrated with hyponatremia. Nephrology was consulted. Her renal function improved. Overall the patient improved without any problems. Blood and urine culture negative. Patient has done well with therapy. Social work help to transfer patient to the skilled facility to continue rehabilitation. Unfortunately insurance tonight. Therefore patient will go home with home health and physical therapy. At discharge she will continue with her medications. Recommend follow up with her PCP in 1 week to follow up this hospitalization. Patient will continue with medication for GERD. Will recommend follow up with GI as an outpatient to further evaluate. Patient may benefit with EGD and colonoscopy in the near future. Patient with underlying atrial fibrillation on chronic anti coagulation therapy, diabetes mellitus type 2, hypertension, history of TIA, history of PE on chronic anti coagulation therapy. At discharge patient will continue with her current medications. Further adjustment can be done by her PCP. Please note that come on her medications Lasix has been discontinued due to her recent nausea and vomiting and dehydration. At discharge she will continue with her medication. She will continue monitor her weight daily. If her weight increases with noted edema then Lasix may need to be reconsidered. This can be further addressed by her PCP or nephrology. Recommend to recheck lab-BMP in 1-2 weeks. Vital Signs/Physical Exam: Temp Pulse Resp BP Pulse Ox 97 F 75 18 187/69 H 99 11/15/19 12:00 11/15/19 14:28 11/15/19 12:00 11/15/19 14:28 11/15/19 12:00 General: Alert, In no apparent distress, Oriented x3, Cooperative HEENT: Atraumatic Neck: Supple Respiratory: Clear to auscultation bilaterally, Normal air movement Cardiovascular: Normal pulses, Regular rate/rhythm Gastrointestinal: Normal bowel sounds, Soft and benign, Non-distended, No masses, No rebound, No guarding Neurological: Normal speech, Normal strength at 5/5 x4 extr, Normal tone, Normal affect Laboratory Data at Discharge: WBC 8.1 K/uL (4.3-10.9) 11/12/19 03:45 Hgb 12.6 g/dL (12.0-15.0) 11/12/19 03:45 Hct 37.7 % (36.0-45.0) 11/12/19 03:45 Plt Count 227 K/uL (152-406) 11/12/19 03:45 Sodium 135 mmol/L (136-145) L 11/14/19 05:03 Potassium 4.1 mmol/L (3.5-5.1) 11/14/19 05:03 BUN 6 mg/dL (7-18) L 11/14/19 05:03 Creatinine 0.60 mg/dL (0.55-1.3) 11/14/19 05:03 Glucose 141 mg/dL (74-106) H 11/14/19 05:03 Magnesium 2.1 mg/dL (1.8-2.4) 11/14/19 05:03 Total Bilirubin 0.6 mg/dL (0.2-1.0) 11/11/19 05:18 AST 19 U/L (15-37) 11/11/19 05:18 ALT 25 U/L (12-78) 11/11/19 05:18 Alkaline Phosphatase 75 U/L (45-117) 11/11/19 05:18 Lipase 123 U/L (73-393) 11/10/19 11:40 Home Medications: Apixaban [Eliquis] 1 tab PO BID 02/18/19 Hydralazine HCl [Apresoline] 1 tab PO TID 02/18/19 Irbesartan [Avapro*] 1 tab PO DAILY 02/18/19 Magnesium Oxide [Magnesium] 1 tab PO DAILY 02/18/19 Metformin ER [Glucophage ER*] 1 tab PO BID 02/18/19 Multivitamin [Multivitamins] 1 cap PO DAILY 02/18/19 Omeprazole [Prilosec] 1 tab PO DAILY 02/18/19 Rosuvastatin Calcium [Crestor] 1 tab PO DAILY 02/18/19 Vitamin E 1 tab PO DAILY 02/18/19 carvediloL [Coreg*] 1 tab PO BID 02/18/19 Levothyroxine [Synthroid*] 75 mcg PO [id number] #30 tab 02/19/19 Cholecalciferol (Vitamin D3) [Vitamin D 1000 Iu Tab*] 1,000 unit PO DAILY 11/10/19 Cyanocobalamin (Vitamin B-12) [Vitamin B-12] 2,000 mcg PO DAILY 11/10/19 Pantoprazole [Protonix Tab*] 40 mg PO DAILYAC #30 tab 11/15/19 New Medications: Pantoprazole [Protonix Tab*] 40 mg PO DAILYAC #30 tab Patient Discharge Instructions: 1. Recommend follow up with PCP in 1 week to follow up hospitalization. 2. Patient was admitted for intractable nausea and vomiting. This was likely viral as CT scan unremarkable. Patient was also dehydrated with hyponatremia. Nephrology was consulted. Her renal function improved. Overall the patient improved without any problems. Blood and urine culture negative. Patient has done well with therapy. Social work help to transfer patient to the skilled facility to continue rehabilitation. Unfortunately insurance tonight. Therefore patient will go home with home health and physical therapy. At discharge she will continue with her medications. Recommend follow up with her PCP in 1 week to follow up this hospitalization. Patient will continue with medication for GERD. Will recommend follow up with GI as an outpatient to further evaluate. Patient may benefit with EGD and colonoscopy in the near future. 3. 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 At discharge patient will continue with her current medications. Further adjustment can be done by her PCP. Please note at discharge Lasix has been discontinued. Recommend to monitor her weight daily. If her weight increases with noted edema then Lasix may need to be restarted. This can be further addressed by her PCP or nephrology. Recommend to recheck lab-BMP in 1-2 weeks. Diet: ADA Activity: Fall precautions Time spent managing pt's care (in minutes): 55
[2019-11-15 17:09] VITALS: BP 147/66
--- NOTE | 2019-11-15 22:18 | P.PN ---
Date of Service: 11/15/19 Vital Signs Temp Pulse Resp BP Pulse Ox 97 F 75 18 147/66 H 97 11/15/19 16:00 11/15/19 16:00 11/15/19 16:00 11/15/19 16:00 11/15/19 16:00 Assessment/ Plan: Nephrology Feeling much better today. Tolerating her diet well. CPS stable without CP or SOB. No acute events overnight. Vitals, medications, blood work and imaging reviewed in the chart. NAD. MMM. Neck supple. CTA. RRR. Soft tender Abd. No C/C/E. No rash. AAO. Normal Speech. A/ Stable mildly complex right renal cyst. Hyponatemia in the setting of intractable N/V likely Viral GE. HTN, uncontrolled. DM II with hyperglycemia. Atherosclerosis of aorta. P/ Continue current POC and Medications. Encourge nutrition. AM labs PRN. Daily weight. No NSAIDs. Case reviewed with Dr. Martin. EXAM DESCRIPTION: CT - Abdomen Pelvis Wo Contrast - 11/10/2019 11:03 am CLINICAL HISTORY: Abdominal pain. nausea/vomiting COMPARISON: [facility] Protocol dated 09/12/2019; Abdomen Pelvis Wo Contrast dated 08/18/2019; Abdomen Pelvis W Contrast dated 08/04/2019 TECHNIQUE: CT imaging of the abdomen and pelvis was performed without contrast. Solid organ, bowel and vascular assessment is limited due to lack of IV and oral contrast. All CT scans are performed using dose optimization technique as appropriate and may include automated exposure control or mA/KV adjustment according to patient size. FINDINGS: The lower lung de souza are clear. The liver demonstrates no focal mass or biliary dilatation. Cholecystectomy clips are seen.The spleen, pancreas, adrenal glands are normal. No urinary tract stone or obstructive uropathy identified. Complex cystic right renal lesion of wall calcifications are unchanged. No bowel obstruction, free air, free fluid or abscess. The appendix is not identified as a discrete structure, however, no secondary findings of appendicitis are identified. Mild fecal retention is seen in the rectosigmoid colon. Heavy aortic atherosclerosis seen. The osseous structures are within normal limits. IMPRESSION: No urinary tract stone or obstructive uropathy is seen. Stable mildly complex cystic right renal lesion. Mild fecal retention with mild wall thickening is seen involving the rectosigmoid colon. Heavy atherosclerosis.
== END 2019-11-15 18:23 | disposition home health service (06) | DRG 392 ==
LOC: ER 10:08 → ERHOLD 12:16 → OBSVTOIN 12:16 → 2ND 14:02
PROVIDERS: ADMIT Family Medicine; ATTEND Family Medicine
DX: A08.4 Viral intestinal infection, unspecified (principal); E87.1 Hypo-osmolality and hyponatremia; I48.20 Chronic atrial fibrillation, unspecified; N17.9 Acute kidney failure, unspecified; Z88.5 Allergy status to narcotic agent; Z79.899 Other long term (current) drug therapy; Z79.890 Hormone replacement therapy; Z79.01 Long term (current) use of anticoagulants; Z79.84 Long term (current) use of oral hypoglycemic drugs; Z79.02 Long term (current) use of antithrombotics/antiplatelets; K21.9 Gastro-esophageal reflux disease without esophagitis; Z86.73 Personal history of transient ischemic attack (TIA), and cerebral infarction without residual deficits; E78.5 Hyperlipidemia, unspecified; Z86.711 Personal history of pulmonary embolism; Z90.49 Acquired absence of other specified parts of digestive tract; Z90.710 Acquired absence of both cervix and uterus; E11.65 Type 2 diabetes mellitus with hyperglycemia; I25.10 Atherosclerotic heart disease of native coronary artery without angina pectoris; Z88.1 Allergy status to other antibiotic agents; I10 Essential (primary) hypertension; N28.1 Cyst of kidney, acquired; I70.0 Atherosclerosis of aorta; E86.0 Dehydration
CPT/HCPCS: 36415; 74176; 74220; 80048; 80053; 80076; 81003; 81015; 82533; 82947; 83690; 83735; 83930; 83935; 84300; 84443; 84484; 85025; 87324; 87449; 93005; 94760; 96361; 96374; 97116; 97161; 97530; 99285; C9113; J0360; J2405; J2550; J7030; J7040; J7799

== ENCOUNTER 2019-11-24 18:19 | Inpatient (IN) | payer OTHER ==
--- OUTSIDE RECORDS SUMMARY | 2019-11-24 18:23 | XMS REPORT ---
[...] NDC 0 Active not defined Levothyroxine NDC [address]-46 Active not defined Sodium Vitamin B-12 [facility] 39228-[address]48 Active not def ined Metformin HCl [facility] 78646521429 500 MG Orally Active 1 tablet with Twice a day meals Sertraline HCl [facility] 07124853211 25 Orally Once Active 1 tablet a day Bactrim DS [facility] 01421797932 800-160 MG December Active 1 tabl et Orally Twice a 2018 Vitamin E [facility] 84324-75057 Active not define d Cranberry [facility] 18090-62576 Active not define d Concentrate Rosuvastatin [facility] 73450357378 40 Active TAKE 1 TABLET Calcium BY MOUTH DAILY Cyanocobalamin [facility] [address]-40 1000 MCG/15ML Activ e 15 ml Orally Once a day Tylenol Arthritis ND 0 Active not de fined Pain Valsartan [facility] 21118333494 160 MG Orally Active 1 ta blet Once a day Bactrim DS [facility] 70969753783 800-160 MG January Active 1 tabl et Orally Twice a 2017 Crestor [facility] 55838170577 40 MG Active 1 EACH ONCE A DAY Multivitamin [facility] 40780-39385 Active not def ined Probiotic [facility] 56060-[address]62 Active not define d Plavix [facility] 77749452228 75 MG Orally Active 1 table t Once a day HydrALAZINE HCl [facility] 20623989146 100 MG Orally December 05, Active as directed Three times a 2017 day Toviaz [facility] 71572325328 8 MG Orally Active 1 tablet Once a day Verapamil HCl [facility] [address]-19 Active not defined Omeprazole [facility] 80895331898 40 Active TAKE 1 CAPSULE BY MOUTH EVERY DAY Fluconazole [facility] 14235552344 150 MG Orally Sep 15, Active 1 tablet one tab a week 2018 today and may repeat one tab in 1 week if no improvement Estradiol [facility] 83357774962 0.1 MG/GM January Active as direc nika Vaginal Two , times a Week 2018 Metformin HCl [facility] 01689753737 500 Active TAKE 1 TABLET BY MOUTH TWICE DAILY Omeprazole [facility] 83011798594 40 MG orally Active 1 EA CH ONCE A daily in AM DAY Eliquis [facility] 25218899054 5 MG Orally Active 1 tablet twice a day Sertraline HCl [facility] 43824495408 25 MG Orally Active 1 tablet Once a day Carvedilol [facility] 62122887571 25 MG Orally Active as d irected Vitamin D3 [facility] 96540101801 1000 UNIT Active 1 capsu le Orally Once a day Amlodipine [facility] 56061251490 10 MG Orally Active 1 ta blet Besylate Once a day Coreg [facility] 80375438385 25 MG Orally Active not def ined HydrALAZINE HCl [facility] 54867201971 100 MG Orally Active 1 tablet with Three times a food day Irbesartan [facility] 59206778977 150 MG Orally Active 1 t ablet Once a day Results No Known Results Summary Purpose eClinicalWorks Submission
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
--- OUTSIDE RECORDS SUMMARY | 2019-11-24 18:23 | XMS REPORT ---
:1935 Author Organization [employer] Care Team Providers Name Role Phone Brtit, Na Provider Role Unavailable Allergies No Known [...] Date Date Levothyroxine [facility] 95915281878 125 MCG Orally Active 1 tablet Sodium Once a day in the morning on an empty stomach Cranberry [facility] [address]81 425 MG Orally Active 1 ca psule Concentrate with meals Plavix [facility] 66665205897 75 MG Orally Active 1 table t Once a day Eliquis [facility] 09889743320 5 MG Orally Active 1 tablet twice a day Rosuvastatin [facility] 52181087781 40 Active TAKE 1 Calcium TABLET BY MOUTH DAILY Levetiracetam [facility] 44314442742 250 MG Orally Active 1 tablet every 12 hrs Tylenol Arthritis ND 0 Active not Pain defined Vitamin B-12 [facility] [address]63-63978 Active not defined Estradiol [facility] 32842876459 0.1 MG/GM January Active as Vaginal Two 22, directed times a Week 2018 Irbesartan [facility] 22111725824 150 MG Orally Active 1 t ablet Once a day Metformin HCl [facility] 35164598372 500 MG Orally Active 1 tablet Twice a day with meals Amlodipine [facility] 55937780630 10 MG Orally Active 1 ta blet Besylate Once a day Carvedilol [facility] 86584552073 25 MG Orally Active as directed Omeprazole [facility] 36007265135 40 MG orally Active 1 EA CH daily in AM ONCE A DAY Sertraline HCl [facility] 89174137795 25 MG Orally Active 1 tablet Once a day HydrALAZINE HCl [facility] 22614392483 100 MG Orally Active 1 tablet Three times a with food day HydrALAZINE HCl [facility] 37420982693 100 MG Orally December 05, Active as Three times a 2017 directed day Cyanocobalamin [facility] [address]-80 1000 MCG/15ML Activ e 15 ml Orally Once a day Omeprazole [facility] 31987013438 40 Active TAKE 1 CAPSULE BY MOUTH EVERY DAY Crestor [facility] 80457377459 40 MG Active 1 EACH ONCE A DAY Vitamin E [facility] 00273144124 400 UNIT Orally Active no t defined Coreg [facility] 28736845187 25 MG Orally Active not defined Vitamin D3 [facility] 89869065658 1000 UNIT Active 1 capsu le Orally Once a day Metformin HCl [facility] 88158646259 500 Active TAKE 1 TABLET BY MOUTH TWICE DAILY Multivitamin [facility] 30481-07033 Active not defined Probiotic [facility] 07928661494 - Orally Active not defined Magnesium [facility] 29507104982 500 MG Orally Active not defined Results No Known Results Summary Purpose eClinicalWorks Submission
--- OUTSIDE RECORDS SUMMARY | 2019-11-24 18:23 | XMS REPORT ---
[...] End Status Dosage System Date Date Toviaz [facility] 01319489653 8 MG Orally Active 1 tablet Once a day Valsartan [facility] 86647080162 160 MG Orally Active 1 ta blet Once a day Tylenol Arthritis NDC 0 Active not de fined Pain Metformin HCl [facility] 41396984815 500 MG Orally Active 1 tablet with Twice a day meals Estradiol [facility] 51830619602 0.1 MG/GM January Active as direc nika Vaginal Two 22, times a Week 2018 Probiotic [facility] [address] Active not define d Cranberry [facility] [address] Active not define d Concentrate Bactrim DS [facility] 26165077930 800-160 MG December Active 1 tabl et Orally Twice a 2018 Cyanocobalamin [facility] [address]-92 1000 MCG/15ML Activ e 15 ml Orally Once a day HydrALAZINE HCl [facility] 45240954191 100 MG Orally December 05, Active as directed Three times a 2017 day Eliquis [facility] 47804648242 5 MG Orally Active 1 tablet twice a day Omeprazole [facility] 56388781564 40 Active TAKE 1 CAPSULE BY MOUTH EVERY DAY Levothyroxine [facility] [address]-94 Active not defined Sodium Verapamil HCl [facility] [address]-87 Active not defined Irbesartan [facility] 21262003719 150 MG Orally Active 1 t ablet Once a day Sertraline HCl [facility] 97782479054 25 Orally Once Active 1 tablet a day Bactrim DS [facility] 17507236721 800-160 MG January Active 1 tabl et Orally Twice a 2017 Multivitamin [facility] 71346-25234 Active not def ined Sertraline HCl [facility] 03579049296 25 MG Orally Active 1 tablet Once a day Metformin HCl [facility] 93100627489 500 Active TAKE 1 TABLET BY MOUTH TWICE DAILY Vitamin B-12 [facility] 25[address]-89743 Active not def ined Levetiracetam [facility] 51093544872 250 MG Orally Active 1 tablet every 12 hrs Amlodipine ND 73673431545 10 MG Orally Active 1 ta blet Besylate Once a day Magnesium ND 0 Active not defined HydrALAZINE HCl [facility] 75630098796 100 MG Orally Active 1 tablet with Three times a food day Carvedilol ND 95821324146 25 MG Orally Active as d irected Vitamin E [facility] 86[address]356 Active not define d Coreg ND 47216343944 25 MG Orally Active not def ined Vitamin D3 [facility] 55093800606 1000 UNIT Active 1 capsu le Orally Once a day Ranitidine [facility] 82669387048 Active not defin ed Rosuvastatin [facility] 80883906027 40 Active TAKE 1 TABLET Calcium BY MOUTH DAILY Plavix [facility] 67123661269 75 MG Orally Active 1 table t Once a day Omeprazole [facility] 69188010558 40 MG orally Active 1 EA CH ONCE A daily in AM DAY Fluconazole [facility] 97576684987 150 MG Orally Sep 15, Active 1 tablet one tab a week 2019 today and may repeat one tab in 1 week if no improvement Crestor [facility] 54050061362 40 MG Active 1 EACH ONCE A DAY Results No Known Results Summary Purpose eClinicalWorks Submission
--- OUTSIDE RECORDS SUMMARY | 2019-11-24 18:24 | XMS REPORT ---
[...] Dosage System Date Date Vitamin B-12 NDC 92095-81324 Active not defined Levothyroxine [facility] 53776476279 125 MCG Orally Active 1 tablet Sodium Once a day in the morning on an empty stomach Crestor [facility] 68581596588 40 MG Active 1 EACH ONCE A DAY Estradiol [facility] 00601241400 0.1 MG/GM January Active as Vaginal Two 22, directed times a Week 2018 Irbesartan [facility] 00609844168 150 MG Orally Active 1 t ablet Once a day Cyanocobalamin [facility] [address]-18 1000 MCG/15ML Activ e 15 ml Orally Once a day Methenamine [facility] 79719327896 1 GM Orally Aug 02September Active 1 ta blet Hippurate Twice a day 2019 Probiotic [facility] 96203065629 - Orally Active not defined Eliquis [facility] 89553504475 5 MG Orally Active 1 tablet twice a day Vitamin E [facility] 22997725407 400 UNIT Active not Orally defined HydrALAZINE HCl [facility] 27460577006 100 MG Orally Active 1 tablet Three times a with food day Coreg [facility] 49939144799 25 MG Orally Active not defined Tylenol Arthritis ND 0 Active not Pain defined Levetiracetam [facility] 37078988240 250 MG Orally Active 1 tablet every 12 hrs Cranberry [facility] 04607-47440 425 MG Orally Active 1 ca psule Concentrate with meals Multivitamin [facility] 68469-80797 Active not defined HydrALAZINE HCl [facility] 99527193534 100 MG Orally December 05, Active as Three times a 2017 directed day Metformin HCl [facility] 25674946723 500 MG Orally Active 1 tablet Twice a day with meals Plavix [facility] 98418757744 75 MG Orally Active 1 table t Once a day Omeprazole [facility] 88414950608 40 Active TAKE 1 CAPSULE BY MOUTH EVERY DAY Omeprazole [facility] 68554268441 40 MG orally Active 1 EA CH daily in AM ONCE A DAY Sertraline HCl [facility] 40410775782 25 MG Orally Active 1 tablet Once a day Carvedilol [facility] 32502158723 25 MG Orally Active as directed Magnesium [facility] 93818935115 500 MG Orally Active not defined Vitamin D3 [facility] 13487238885 1000 UNIT Active 1 capsu le Orally Once a day Bactrim [facility] 61503961554 400-80 MG Aug 02, Aug 07, Active 1 tablet Orally BID 2019 2019 Metformin HCl [facility] 16189820048 500 Active TAKE 1 TABLET BY MOUTH TWICE DAILY Rosuvastatin [facility] 61755856679 40 Active TAKE 1 Calcium TABLET BY MOUTH DAILY Amlodipine [facility] 93970263466 10 MG Orally Active 1 ta blet Besylate Once a day Results No Known Results Summary Purpose eClinicalWorks Submission
--- OUTSIDE RECORDS SUMMARY | 2019-11-24 18:24 | XMS REPORT ---
[...] End Status Dosage System Date Date Eliquis [facility] 94631849083 5 MG Orally Active 1 tablet twice a day Omeprazole [facility] 67448186734 40 MG orally Active 1 EA CH daily in AM ONCE A DAY Levetiracetam [facility] 86695616329 250 MG Orally Active 1 tablet every 12 hrs Tylenol Arthritis ND 0 Active not Pain defined Multivitamin [facility] 04843-65045 Active not defined Rosuvastatin [facility] 99401552469 40 Active TAKE 1 Calcium TABLET BY MOUTH DAILY Sertraline HCl [facility] 19593530881 25 MG Orally Active 1 tablet Once a day Crestor [facility] 76474307131 40 MG Active 1 EACH ONCE A DAY Methenamine [facility] 49381297760 1 GM Orally Aug 02September Active 1 ta blet Hippurate Twice a day 2019 Levothyroxine [facility] 81628446144 125 MCG Orally Active 1 tablet Sodium Once a day in the morning on an empty stomach Cranberry [facility] 08[address]31 425 MG Orally Active 1 ca psule Concentrate with meals Probiotic [facility] 81342473669 - Orally Active not defined HydrALAZINE HCl [facility] 89133457240 100 MG Orally Active 1 tablet Three times a with food day Coreg [facility] 25543678440 25 MG Orally Active not defined HydrALAZINE HCl [facility] 69597628032 100 MG Orally December 05, Active as Three times a 2017 directed day Vitamin D3 [facility] 09871504202 1000 UNIT Active 1 capsu le Orally Once a day Metformin HCl [facility] 48602026436 500 MG Orally Active 1 tablet Twice a day with meals Metformin HCl [facility] 40038072101 500 Active TAKE 1 TABLET BY MOUTH TWICE DAILY Cyanocobalamin [facility] [address]-76 1000 MCG/15ML Activ e 15 ml Orally Once a day Carvedilol [facility] 37358738702 25 MG Orally Active as directed Amlodipine [facility] 60776088143 10 MG Orally Active 1 ta blet Besylate Once a day Omeprazole [facility] 36164427640 40 Active TAKE 1 CAPSULE BY MOUTH EVERY DAY Vitamin B-12 [facility] 457[address]6438 Active not defined Irbesartan [facility] 71987622719 150 MG Orally Active 1 t ablet Once a day Vitamin E [facility] 84183125798 400 UNIT Active not Orally defined Estradiol [facility] 93719196680 0.1 MG/GM January Active as Vaginal Two 22, directed times a Week 2018 Plavix [facility] 17390729275 75 MG Orally Active 1 table t Once a day Magnesium [facility] 98587853799 500 MG Orally Active not defined Results No Known Results Summary Purpose eClinicalWorks Submission
--- OUTSIDE RECORDS SUMMARY | 2019-11-24 18:24 | XMS REPORT ---
[...] Status Dosage System Date Date Amlodipine [facility] 65778903522 10 MG Orally Active 1 ta blet Besylate Once a day Levetiracetam [facility] 27611454517 250 MG Orally Active 1 tablet every 12 hrs Magnesium [facility] 48326316869 500 MG Orally Active not defined Sertraline HCl [facility] 42074748739 25 MG Orally Active 1 tablet Once a day Eliquis [facility] 78001087294 5 MG Orally Active 1 tablet twice a day Cranberry [facility] 80820-[address]29 425 MG Orally Active 1 ca psule Concentrate with meals Levothyroxine [facility] 71783927626 125 MCG Orally Active 1 tablet Sodium Once a day in the morning on an empty stomach Metformin HCl [facility] 73270255463 500 MG Orally Active 1 tablet Twice a day with meals Metformin HCl [facility] 83571215251 500 Active TAKE 1 TABLET BY MOUTH TWICE DAILY Tylenol Arthritis ND 0 Active not Pain defined Plavix [facility] 06608716197 75 MG Orally Active 1 table t Once a day Crestor [facility] 45808997499 40 MG Active 1 EACH ONCE A DAY Vitamin B-12 [facility] 13864-35947 Active not defined Omeprazole [facility] 57246627947 40 Active TAKE 1 CAPSULE BY MOUTH EVERY DAY Coreg [facility] 71572733155 25 MG Orally Active not defined Irbesartan [facility] 44882657842 150 MG Orally Active 1 t ablet Once a day Multivitamin [facility] 63212-35004 Active not defined Estradiol [facility] 06057698474 0.1 MG/GM January Active as Vaginal Two 22, directed times a Week 2018 Rosuvastatin [facility] 71973631292 40 Active TAKE 1 Calcium TABLET BY MOUTH DAILY HydrALAZINE HCl [facility] 24521364656 100 MG Orally Active 1 tablet Three times a with food day Probiotic [facility] 99589655413 - Orally Active not defined Methenamine [facility] 49899694780 1 GM Orally Active 1 ta blet Hippurate Twice a day Cyanocobalamin [facility] [address]-08 1000 MCG/15ML Activ e 15 ml Orally Once a day Vitamin E [facility] 36605027597 400 UNIT Orally Active no t defined Vitamin D3 [facility] 36132909751 1000 UNIT Active 1 capsu le Orally Once a day Omeprazole [facility] 23313718795 40 MG orally Active 1 EA CH daily in AM ONCE A DAY Carvedilol [facility] 03579617955 25 MG Orally Active as directed HydrALAZINE HCl [facility] 40264983180 100 MG Orally December 05, Active as Three times a 2018 directed day Results No Known Results Summary Purpose eClinicalWorks Submission
--- OUTSIDE RECORDS SUMMARY | 2019-11-24 18:25 | XMS REPORT ---
[...] End Status Dosage System Date Date Methenamine [facility] 96963694829 1 GM Orally Active 1 ta blet Hippurate Twice a day HydrALAZINE HCl [facility] 47562984251 100 MG Orally Active 1 tablet Three times a with food day Vitamin E [facility] 60683994379 400 UNIT Active not Orally defined Magnesium [facility] 20370662189 500 MG Orally Active not defined Carvedilol [facility] 20151923312 25 MG Orally Active as directed Plavix [facility] 43120374432 75 MG Orally Active 1 table t Once a day Crestor [facility] 45274079412 40 MG Active 1 EACH ONCE A DAY Coreg [facility] 01811486137 25 MG Orally Active not defined Multivitamin [facility] 428[address]-10136 Active not defined Tylenol Arthritis ND 0 Active not Pain defined Trimethoprim [facility] 33803993839 100 MG Orally Sep 18September Active 1 tablet Once a day 2019 Cyanocobalamin [facility] [address]-66 1000 MCG/15ML Activ e 15 ml Orally Once a day Estradiol [facility] 04593798931 0.1 MG/GM January Active as Vaginal Two 22, directed times a Week 2018 Vitamin D3 [facility] 45035762664 1000 UNIT Active 1 capsu le Orally Once a day Metformin HCl [facility] 46687205285 500 MG Orally Active 1 tablet Twice a day with meals Sertraline HCl [facility] 37935181469 25 MG Orally Active 1 tablet Once a day Vitamin B-12 [facility] 55571-01480 Active not defined Eliquis [facility] 50382849577 5 MG Orally Active 1 tablet twice a day Metformin HCl [facility] 61821625173 500 Active TAKE 1 TABLET BY MOUTH TWICE DAILY Rosuvastatin [facility] 99524324067 40 Active TAKE 1 Calcium TABLET BY MOUTH DAILY Probiotic [facility] 66623742865 - Orally Active not defined Omeprazole [facility] 61728322199 40 Active TAKE 1 CAPSULE BY MOUTH EVERY DAY Cranberry [facility] 8[address]-28791 425 MG Orally Active 1 ca psule Concentrate with meals Irbesartan ND 06572037280 150 MG Orally Active 1 t ablet Once a day Levothyroxine [facility] 95639790753 125 MCG Orally Active 1 tablet Sodium Once a day in the morning on an empty stomach Omeprazole [facility] 75245267904 40 MG orally Active 1 EA CH daily in AM ONCE A DAY Amlodipine [facility] 16126064481 10 MG Orally Active 1 ta blet Besylate Once a day Levetiracetam [facility] 08865973114 250 MG Orally Active 1 tablet every 12 hrs HydrALAZINE HCl [facility] 65695694416 100 MG Orally December 05, Active as Three times a 2017 Results No Known Results Summary Purpose eClinicalWorks Submission
--- OUTSIDE RECORDS SUMMARY | 2019-11-24 18:25 | XMS REPORT ---
[...] End Status Dosage System Date Date Montelukast [facility] 09519378197 10 MG Orally October 11, Active 1 tablet Sodium Once a day 2019 Results No Known Results Summary Purpose eClinicalWorks Submission
--- OUTSIDE RECORDS SUMMARY | 2019-11-24 18:26 | XMS REPORT ---
[...] End Status Dosage System Date Date Magnesium [facility] 54773800377 500 MG Orally Active not defined Probiotic [facility] 53274495890 - Orally Active not defined Vitamin B-12 [facility] 59235-55948 Active not defined Levothyroxine [facility] 97923182982 125 MCG Orally Active 1 tablet Sodium Once a day in the morning on an empty stomach Levetiracetam [facility] 07229448474 250 MG Orally Active 1 tablet every 12 hrs Irbesartan [facility] 56320885545 150 MG Orally Active 1 t ablet Once a day Amlodipine [facility] 57518112573 10 MG Orally Active 1 ta blet Besylate Once a day Metformin HCl [facility] 98269005309 500 Active TAKE 1 TABLET BY MOUTH TWICE DAILY Estradiol [facility] 45205544496 0.1 MG/GM January Active as Vaginal Two , directed times a Week 2018 Sertraline HCl [facility] 88216832044 25 MG Orally Active 1 tablet Once a day Trimethoprim [facility] 63615428900 100 MG Orally Sep 18September Active 1 tablet Once a day 2019 HydrALAZINE HCl [facility] 10058997749 100 MG Orally Active 1 tablet Three times a with food day Coreg [facility] 81273755055 25 MG Orally Active not defined Carvedilol [facility] 77380645301 25 MG Orally Active as directed Multivitamin [facility] 88643-70895 Active not defined Vitamin E [facility] 56359674306 400 UNIT Active not Orally defined Vitamin D3 [facility] 30702665726 1000 UNIT Active 1 capsu le Orally Once a day Omeprazole [facility] 39470194608 40 MG orally Active 1 EA CH daily in AM ONCE A DAY Plavix [facility] 61542164729 75 MG Orally Active 1 table t Once a day Cranberry [facility] 29750-33769 425 MG Orally Active 1 ca psule Concentrate with meals HydrALAZINE HCl [facility] 54407144735 100 MG Orally December 05, Active as Three times a 2017 directed day Omeprazole [facility] 36393789789 40 Active TAKE 1 CAPSULE BY MOUTH EVERY DAY Crestor [facility] 05810607111 40 MG Active 1 EACH ONCE A DAY Rosuvastatin [facility] 68217287792 40 Active TAKE 1 Calcium TABLET BY MOUTH DAILY Eliquis [facility] 78776466759 5 MG Orally Active 1 tablet twice a day Tylenol Arthritis ND 0 Active not Pain defined Metformin HCl [facility] 87580335699 500 MG Orally Active 1 tablet Twice a day with meals Methenamine [facility] 30976827131 1 GM Orally Active 1 ta blet Hippurate Twice a day Cyanocobalamin [facility] [address]-87 1000 MCG/15ML Activ e 15 ml Orally Once a day Results No Known Results Summary Purpose eClinicalWorks Submission
--- OUTSIDE RECORDS SUMMARY | 2019-11-24 18:26 | XMS REPORT ---
[...] End Status Dosage System Date Date Coreg [facility] 36362470201 25 MG Orally Active not defined Omeprazole [facility] 13305154111 40 Active TAKE 1 CAPSULE BY MOUTH EVERY DAY Vitamin D3 [facility] 74864923502 1000 UNIT Active 1 capsu le Orally Once a day Crestor [facility] 44367244527 40 MG Active 1 EACH ONCE A DAY Magnesium [facility] 36835004306 500 MG Orally Active not defined Cyanocobalamin [facility] [address]-30 1000 MCG/15ML Activ e 15 ml Orally Once a day Tylenol Arthritis ND 0 Active not Pain defined HydrALAZINE HCl [facility] 34858345149 100 MG Orally Active 1 tablet Three times a with food day Estradiol [facility] 11549268260 0.1 MG/GM January Active as Vaginal Two 22, directed times a Week 2018 Multivitamin [facility] 750[address]-83777 Active not defined Rosuvastatin [facility] 42937684068 40 Active TAKE 1 Calcium TABLET BY MOUTH DAILY Sertraline HCl [facility] 23836117145 25 MG Orally Active 1 tablet Once a day Levetiracetam [facility] 39006681284 250 MG Orally Active 1 tablet every 12 hrs Methenamine [facility] 49338818445 1 GM Orally Active 1 ta blet Hippurate Twice a day Levothyroxine [facility] 75263890810 125 MCG Orally Active 1 tablet Sodium Once a day in the morning on an empty stomach Vitamin B-12 [facility] 58888-29353 Active not defined Omeprazole [facility] 14522760254 40 MG orally Active 1 EA CH daily in AM ONCE A DAY Metformin HCl [facility] 65129657082 500 MG Orally Active 1 tablet Twice a day with meals Plavix [facility] 01513505943 75 MG Orally Active 1 table t Once a day Eliquis [facility] 54598744552 5 MG Orally Active 1 tablet twice a day HydrALAZINE HCl [facility] 57028766666 100 MG Orally December 05, Active as Three times a 2017 directed day Amlodipine ND 64448756556 10 MG Orally Active 1 ta blet Besylate Once a day Cranberry [facility] 75[address]-29378 425 MG Orally Active 1 ca psule Concentrate with meals Carvedilol [facility] 15158471165 25 MG Orally Active as directed Metformin HCl [facility] 09207545681 500 Active TAKE 1 TABLET BY MOUTH TWICE DAILY Irbesartan [facility] 59640134779 150 MG Orally Active 1 t ablet Once a day Probiotic [facility] 72210484201 - Orally Active not defined Vitamin E [facility] 01963767531 400 UNIT Orally Active no t defined Results No Known Results Summary Purpose eClinicalWorks Submission
[2019-11-24 20:03] LABS: Absolute Lymphocytes (CBC) 2.8 K/uL (0.7-4.9); Basophils % 0.7 % (0-1.3); Hematocrit 39.1 % (36.0-45.0); Lymphocytes % 32.6 % (15.3-44.8); MPV 7.2 fL (7.6-11.3); RBC Red Blood Cell Count 4.17 M/uL (3.86-4.86)
[2019-11-24 20:44] LABS: ALT/SGPT 39 U/L (12-78); Albumin 3.3 g/dL (3.4-5.0); Alkaline Phosphatase 109 U/L (45-117); BUN Blood Urea Nitrogen 14 mg/dL (7-18); Bicarbonate 26 mmol/L (21-32); Bilirubin Direct 0.1 mg/dL (0-0.2); Bilirubin Total 0.6 mg/dL (0.2-1.0); Glucose Level 127 mg/dL (74-106); Lipase 162 U/L (73-393); Protein, Total 6.7 g/dL (6.4-8.2)
[2019-11-24 20:46] LABS: Potassium 4.1 mmol/L (3.5-5.1)
[2019-11-24 20:47] LABS: AST/SGOT 29 U/L (15-37)
[2019-11-24 20:49] LABS: Sodium Level 118 mmol/L (136-145)
--- NOTE | 2019-11-24 20:56 | ER ---
Nurse's Notes [facility] Name: Radha Lara Age: 84 yrs Sex: Female : 1935 Arrival Date: 11/24/2019 Time: 18:22 Bed 19 Private MD: Elli Britt Diagnosis: Hypo-osmolality and hyponatremia;Weakness;Nausea Presentation: 11/23 18:31 Chief complaint: Patient states: has been nauseated and weak, was in the hospital in iw October with similar symptoms and has not gotten better, is not eating bc she feels so nauseated, asks every day to come to ER, also has neck and shoulder pain that is chronic, has been here multiple times, sees Dr. Britt and Dr. Diamond. Coronavirus screen: Proceed with normal triage. Patient denies a cough. Patient denies shortness of breath or difficulty breathing. Patient denies measured and/or subjective temperature greater than 100.4F prior to today's visit. Patient denies travel on a cruise ship or to a country the [facility] currently lists as an affected area. Patient denies contact with known and/or suspected case of COVID-19. Ebola Screen: Patient negative for fever greater than or equal to 101.5 degrees Fahrenheit, and additional compatible Ebola Virus Disease symptoms Patient denies exposure to infectious person. Patient denies travel to an Ebola-affected area in the 21 days before illness onset. No symptoms or risks identified at this time. Initial Sepsis Screen: Does the patient meet any 2 criteria? No. Patient's initial sepsis screen is negative. Does the patient have a suspected source of infection? No. Patient's initial sepsis screen is negative. Risk Assessment: Do you want to hurt yourself or someone else? Patient reports no desire to harm self or others. 18:31 Method Of Arrival: Wheelchair iw 18:31 Acuity: YOLANDE 3 iw 18:35 Onset of symptoms was October 2019. iw Triage Assessment: 20:38 General: Appears in no apparent distress. comfortable, Behavior is calm, cooperative. mg2 GI: Reports lower abdominal pain. Historical: - Allergies: 18:37 Aspirin; iw 18:37 Clonidine; iw 18:37 Codeine; iw 18:37 Ibuprofen; iw 18:37 Iodinated Contrast Media - IV Dye; iw 18:37 Lisinopril; iw 18:37 Niacin; iw 18:37 Nitrofurantoin; iw 18:37 nitrous oxide; iw 18:37 vicoden; iw 18:37 Zoloft; iw - Home Meds: 18:37 amlodipine 5 mg tab 1 tab once daily for Hypertension [Active]; carvedilol 25 mg Oral iw tab 1 tab 2 times per day [Active]; cranberry Oral twice a day [Active]; Crestor 40 mg Oral tab once daily [Active]; Eliquis 5 mg Oral tab 2 times per day [Active]; furosemide 40 mg Oral tab as needed [Active]; hydralazine 100 mg Oral tab 3 times per day [Active]; irbesartan 150 mg Oral tab 1 tab once daily [Active]; levothyroxine 75 mcg tab 1 tab once daily [Active]; magnesium oxide 500 mg Oral tab [Active]; metformin 500 mg Oral Tb24 1 tab 2 times per day [Active]; Multiple Vitamins Oral tab daily [Active]; omeprazole 40 mg Oral cpDR 1 cap once daily [Active]; Plavix 75 mg Oral tab 1 tab once daily [Active]; Probiotic Oral [Active]; Vitamin B-12 2,000 mcg Oral TbER daily [Active]; Vitamin D3 1,000 unit Oral chew daily [Active]; vitamin E Oral once daily [Active]; - PMHx: 18:37 acid reflux; ADD/ADHD; Atrial Fib; CVA; Diabetes - NIDDM; Hyperlipidemia; Hypertension; iw Kidney stones; PE; Sleep Apnea; TIA; UTI; - Immunization history:: Adult Immunizations up to date. - Social history:: Smoking status: Patient denies any tobacco usage or history of. - Family history:: not pertinent. Screenin:36 Abuse screen: Denies threats or abuse. Denies injuries from another. Nutritional mg2 screening: No deficits noted. Tuberculosis screening: No symptoms or risk factors identified. Fall Risk IV access (20 points). Assessment: 19:30 General: Appears in no apparent distress. comfortable. Pain: Complains of pain in neck mg2 and shoulder. Neuro: Level of Consciousness is awake, alert, obeys commands, Oriented to person, place, time, Appropriate for age. Cardiovascular: Capillary refill < 3 seconds Patient's skin is warm and dry. Respiratory: Airway is patent Respiratory effort is even, unlabored, Respiratory pattern is regular, symmetrical. GI: Abdomen is flat, non-distended. : No signs and/or symptoms were reported regarding the genitourinary system. EENT: No signs and/or symptoms were reported regarding the EENT system. Derm: Skin is intact, is healthy with good turgor, Skin is pink, warm \T\ dry. normal. Musculoskeletal: Circulation, motion, and sensation intact. Capillary refill < 3 seconds. Vital Signs: 18:31 BP 159 / 73; Pulse 69; Resp 16; Temp 98.2; Pulse Ox 98% on R/A; Weight 55.34 kg; Height iw 5 ft. 5 in. (165.10 cm); Pain 5/10; 20:37 BP 172 / 78; Pulse 73; Resp 18; Pulse Ox 98% on R/A; mg2 21:23 BP 164 / 72; Pulse 65; Resp 18; Pulse Ox 97% on R/A; mg2 22:54 BP 161 / 68; Pulse 72; Resp 18; Temp 97.9; Pulse Ox 97% on R/A; mg2 18:31 Body Mass Index 20.30 (55.34 kg, 165.10 cm) iw ED Course: 18:22 Patient arrived in ED. as 18:24 Elli Britt MD is Private Physician. as 18:35 Triage completed. iw 19:42 Gage Bajwa, LAILA is Primary Nurse. mg2 19:47 Hari Simmons MD is Attending Physician. iron 19:55 Inserted saline lock: 20 gauge in right wrist, using aseptic technique. Blood collected.mg2 20:36 Patient has correct armband on for positive identification. Pulse ox on. NIBP on. Door mg2 closed. Warm blanket given. 20:37 No provider procedures requiring assistance completed. mg2 20:55 [employer] [facility] is Hospitalizing Provider. iron 21:15 CT Head Brain wo Cont: headache on eliquis In Process Unspecified. EDMS 22:27 XRAY Chest (1 view) In Process Unspecified. EDMS 22:56 Arm band placed on. mg2 23:39 Patient admitted, IV remains in place. mg2 Administered Medications: 20:52 CANCELLED (Duplicate Order): NS 0.9% 1000 ml IV at 125 ml/hr continuous iron 20:59 Drug: NS 0.9% 500 ml Route: IV; Rate: bolus; Site: right wrist; mg2 22:59 Follow up: Response: No adverse reaction; IV Status: Completed infusion; IV Intake: mg2 500ml 20:59 Drug: Zofran (Ondansetron) 4 mg Route: IVP; Site: right wrist; mg2 22:59 Follow up: Response: No adverse reaction mg2 21:38 Drug: Solu-CORTEF 100 mg Route: IVP; Site: left forearm; ca1 22:59 Follow up: Response: No adverse reaction mg2 21:44 Drug: NS 0.9% 1000 ml Route: IV; Rate: 75 ml/hr; Site: right wrist; mg2 22:59 Follow up: IV Status: Infusion continued upon admission mg2 Intake: 22:59 IV: 500ml; Total: 500ml. mg2 Outcome: 20:55 Decision to Hospitalize by Provider. iron 23:40 Admitted to Med/surg accompanied by nurse, via wheelchair, room 216, with chart, Report mg2 called to LAILA Cyr 23:40 Condition: stable 23:40 Instructed on the need for admit, Demonstrated understanding of instructions. 23:41 Patient left the ED. mg2 Signatures: Dispatcher [employer] EDHari Andrade MD MD cha Martinez, Amelia as Priti Crawford RN RN iw Gage Bajwa RN RN mg2 Yandy Luna RN RN ca1 Corrections: (The following items were deleted from the chart) 18:38 18:31 BP 159 / 73; Pulse 69bpm; Resp 16bpm; Pulse Ox 98% RA; iw iw
--- NOTE | 2019-11-24 20:56 | EDPHYS ---
Physician Documentation [facility] Name: Radha Lara Age: 84 yrs Sex: Female : 1935 Arrival Date: 11/24/2019 Time: 18:22 Bed 19 Private MD: Elli Britt ED Physician Hari Simmons HPI: 11/23 20:48 This 84 yrs old Female presents to ER via Wheelchair with complaints of iron Nausea, Weakness. 20:48 The patient presents to the emergency department with nausea, vomiting, that is iron continuous. Onset: The symptoms/episode began/occurred 4 day(s) ago. Possible causes: unknown. The symptoms are aggravated by nothing. The symptoms are alleviated by nothing. Associated signs and symptoms: The patient has no apparent associated signs or symptoms. Severity of symptoms: At their worst the symptoms were mild moderate in the emergency department the symptoms are unchanged. The patient has not experienced similar symptoms in the past. Historical: - Allergies: 18:37 Aspirin; iw 18:37 Clonidine; iw 18:37 Codeine; iw 18:37 Ibuprofen; iw 18:37 Iodinated Contrast Media - IV Dye; iw 18:37 Lisinopril; iw 18:37 Niacin; iw 18:37 Nitrofurantoin; iw 18:37 nitrous oxide; iw 18:37 vicoden; iw 18:37 Zoloft; iw - Home Meds: 18:37 amlodipine 5 mg tab 1 tab once daily for Hypertension [Active]; carvedilol 25 mg Oral iw tab 1 tab 2 times per day [Active]; cranberry Oral twice a day [Active]; Crestor 40 mg Oral tab once daily [Active]; Eliquis 5 mg Oral tab 2 times per day [Active]; furosemide 40 mg Oral tab as needed [Active]; hydralazine 100 mg Oral tab 3 times per day [Active]; irbesartan 150 mg Oral tab 1 tab once daily [Active]; levothyroxine 75 mcg tab 1 tab once daily [Active]; magnesium oxide 500 mg Oral tab [Active]; metformin 500 mg Oral Tb24 1 tab 2 times per day [Active]; Multiple Vitamins Oral tab daily [Active]; omeprazole 40 mg Oral cpDR 1 cap once daily [Active]; Plavix 75 mg Oral tab 1 tab once daily [Active]; Probiotic Oral [Active]; Vitamin B-12 2,000 mcg Oral TbER daily [Active]; Vitamin D3 1,000 unit Oral chew daily [Active]; vitamin E Oral once daily [Active]; - PMHx: 18:37 acid reflux; ADD/ADHD; Atrial Fib; CVA; Diabetes - NIDDM; Hyperlipidemia; Hypertension; iw Kidney stones; PE; Sleep Apnea; TIA; UTI; - Immunization history:: Adult Immunizations up to date. - Social history:: Smoking status: Patient denies any tobacco usage or history of. - Family history:: not pertinent. ROS: 20:48 Constitutional: Negative for fever, chills, and weight loss, Eyes: Negative for injury, iron pain, redness, and discharge, ENT: Negative for injury, pain, and discharge, Neck: Negative for injury, pain, and swelling, Cardiovascular: Negative for chest pain, palpitations, and edema, Respiratory: Negative for shortness of breath, cough, wheezing, and pleuritic chest pain, Back: Negative for injury and pain, : Negative for injury, bleeding, discharge, and swelling, MS/Extremity: Negative for injury and deformity, Skin: Negative for injury, rash, and discoloration, Neuro: Negative for headache, weakness, numbness, tingling, and seizure, Psych: Negative for depression, anxiety, suicide ideation, homicidal ideation, and hallucinations, Allergy/Immunology: Negative for hives, rash, and allergies, Endocrine: Negative for neck swelling, polydipsia, polyuria, polyphagia, and marked weight changes, Hematologic/Lymphatic: Negative for swollen nodes, abnormal bleeding, and unusual bruising. 20:48 Abdomen/GI: Positive for nausea and vomiting. 20:48 Neuro: Positive for weakness. 20:48 Neuro: Positive for headache, pat stated nagging rosales. iron Exam: 20:48 Constitutional: This is a well developed, well nourished patient who is awake, alert, iron and in no acute distress. Head/Face: Normocephalic, atraumatic. Eyes: Pupils equal round and reactive to light, extra-ocular motions intact. Lids and lashes normal. Conjunctiva and sclera are non-icteric and not injected. Cornea within normal limits. Periorbital areas with no swelling, redness, or edema. ENT: Nares patent. No nasal discharge, no septal abnormalities noted. Tympanic membranes are normal and external auditory canals are clear. Oropharynx with no redness, swelling, or masses, exudates, or evidence of obstruction, uvula midline. Mucous membranes moist. Neck: Trachea midline, no thyromegaly or masses palpated, and no cervical lymphadenopathy. Supple, full range of motion without nuchal rigidity, or vertebral point tenderness. No Meningismus. Chest/axilla: Normal chest wall appearance and motion. Nontender with no deformity. No lesions are appreciated. Cardiovascular: Regular rate and rhythm with a normal S1 and S2. No gallops, murmurs, or rubs. Normal PMI, no JVD. No pulse deficits. Respiratory: Lungs have equal breath sounds bilaterally, clear to auscultation and percussion. No rales, rhonchi or wheezes noted. No increased work of breathing, no retractions or nasal flaring. Abdomen/GI: Soft, non-tender, with normal bowel sounds. No distension or tympany. No guarding or rebound. No evidence of tenderness throughout. Back: No spinal tenderness. No costovertebral tenderness. Full range of motion. Female : Normal external genitalia. Skin: Warm, dry with normal turgor. Normal color with no rashes, no lesions, and no evidence of cellulitis. MS/ Extremity: Pulses equal, no cyanosis. Neurovascular intact. Full, normal range of motion. Neuro: Awake and alert, GCS 15, oriented to person, place, time, and situation. Cranial nerves II-XII grossly intact. Motor strength 5/5 in all extremities. Sensory grossly intact. Cerebellar exam normal. Normal gait. Psych: Awake, alert, with orientation to person, place and time. Behavior, mood, and affect are within normal limits. 21:50 ECG was reviewed by the Attending Physician. iron Vital Signs: 18:31 BP 159 / 73; Pulse 69; Resp 16; Temp 98.2; Pulse Ox 98% on R/A; Weight 55.34 kg; Height iw 5 ft. 5 in. (165.10 cm); Pain 5/10; 20:37 BP 172 / 78; Pulse 73; Resp 18; Pulse Ox 98% on R/A; mg2 21:23 BP 164 / 72; Pulse 65; Resp 18; Pulse Ox 97% on R/A; mg2 22:54 BP 161 / 68; Pulse 72; Resp 18; Temp 97.9; Pulse Ox 97% on R/A; mg2 18:31 Body Mass Index 20.30 (55.34 kg, 165.10 cm) iw MDM: 19:47 Patient medically screened. iron 20:50 Differential diagnosis: Nonspecific abd pain, gastritis, viral gastroenteritis. Data [facility] reviewed: vital signs, nurses notes, EMS record, lab test result(s), EKG, radiologic studies, CT scan, plain films. 20:55 Data interpreted: alarm security or surveillance monitor: rate is 73 beats/min. Test interpretation: by ED iron physician or midlevel provider: ECG, plain radiologic studies. Counseling: I had a detailed discussion with the patient and/or guardian regarding: the historical points, exam findings, and any diagnostic results supporting the discharge/admit diagnosis, the presence of at least one elevated blood pressure reading (>120/80) during this emergency department visit, lab results, radiology results, the need for further work-up and treatment in the hospital. ED course: weak, nausea, not getting better, sodium 118, no hx of etoh. 11/23 19:43 Order name: Basic Metabolic Panel; Complete Time: 20:52 mg2 11/23 19:43 Order name: CBC with Diff; Complete Time: 20:52 mg2 11/23 19:43 Order name: Creatinine for Radiology; Complete Time: 20:52 mg2 11/23 19:43 Order name: Hepatic Function; Complete Time: 20:52 mg2 11/23 19:43 Order name: Lipase; Complete Time: 20:52 mg2 11/23 20:47 Order name: Magnesium; Complete Time: 21:48 iron 11/23 20:47 Order name: NT PRO-BNP; Complete Time: 21:48 iron 11/23 20:47 Order name: PT-INR; Complete Time: 21:48 iron 11/23 20:47 Order name: Troponin (emerg Dept Use Only); Complete Time: 21:48 iron 11/23 20:47 Order name: Urine Culture [facility] 11/23 20:47 Order name: CK; Complete Time: 21:48 iron 11/23 20:52 Order name: Urine Osmolality [facility] 11/23 20:52 Order name: Osmolality, Serum [facility] 11/23 20:52 Order name: Urine Sodium Random [facility] 11/23 19:43 Order name: IV Saline Lock; Complete Time: 19:58 mg2 11/23 19:43 Order name: Labs collected and sent; Complete Time: 19:58 mg2 11/23 20:47 Order name: XRAY Chest (1 view) [facility] 11/23 20:47 Order name: EKG; Complete Time: 20:49 iron 11/23 20:47 Order name: Cardiac monitoring; Complete Time: 21:41 iron 11/23 20:47 Order name: EKG - Nurse/Tech; Complete Time: 21:53 iron 11/23 20:47 Order name: O2 Per Protocol; Complete Time: 21:41 iron 11/23 20:47 Order name: O2 Sat Monitoring; Complete Time: 21:41 iron 11/23 20:47 Order name: Urine Dipstick-Ancillary (obtain specimen); Complete Time: 20:58 iron 11/23 20:47 Order name: CT Head Brain wo Cont: headache on eliquis; Complete Time: 21:48 iron 11/23 21:20 Order name: Urine Dipstick--Ancillary (enter results); Complete Time: 21:48 ma 11/23 20:53 Order name: Seizure Precautions; Complete Time: 21:44 [facility] EC:50 Rate is 76 beats/min. Rhythm is irregularly irregular. QRS [place] is Normal. MT interval iron is normal. QRS interval is normal. QT interval is normal. No Q waves. T waves are Normal. No ST changes noted. Clinical impression: Atrial Fibrillation. Interpreted by me. Reviewed by me. Administered Medications: 20:52 CANCELLED (Duplicate Order): NS 0.9% 1000 ml IV at 125 ml/hr continuous iron 20:59 Drug: NS 0.9% 500 ml Route: IV; Rate: bolus; Site: right wrist; mg2 22:59 Follow up: Response: No adverse reaction; IV Status: Completed infusion; IV Intake: mg2 500ml 20:59 Drug: Zofran (Ondansetron) 4 mg Route: IVP; Site: right wrist; mg2 22:59 Follow up: Response: No adverse reaction mg2 21:38 Drug: Solu-CORTEF 100 mg Route: IVP; Site: left forearm; ca1 22:59 Follow up: Response: No adverse reaction mg2 21:44 Drug: NS 0.9% 1000 ml Route: IV; Rate: 75 ml/hr; Site: right wrist; mg2 22:59 Follow up: IV Status: Infusion continued upon admission mg2 Disposition: 11/24/19 20:55 Hospitalization ordered by [facility] for Inpatient Admission. Preliminary diagnosis are Hypo-osmolality and hyponatremia, Weakness, Nausea. - Bed requested for Telemetry/MedSurg (Inpatient). - Status is Inpatient Admission. mg2 - Condition is Fair. - Problem is new. - Symptoms have improved. Signatures: Dispatcher [employer] EDMS Hari Simmons MD MD cha Williams, Irene, RN RN Janine Kong RN RN cg Gage Bajwa RN RN mg2 Acrich, LAILA Kebede RN ca1 Corrections: (The following items were deleted from the chart) 20:52 20:47 NS 0.9% 1000 ml IV at 125 ml/hr continuous ordered. [facility] 22:46 20:55 Hospitalization Ordered by [employer] [facility] for Inpatient Admission. Preliminary cg diagnosis is Hypo-osmolality and hyponatremia; Weakness; Nausea. Bed requested for Telemetry/MedSurg (Inpatient). Status is Inpatient Admission. Condition is Fair. Problem is new. Symptoms have improved. [facility] 23:41 22:46 11/24/2019 20:55 Hospitalization Ordered by [employer] [facility] for Inpatient mg2 Admission. Preliminary diagnosis is Hypo-osmolality and hyponatremia; Weakness; Nausea. Bed requested for Telemetry/MedSurg (Inpatient). Status is Inpatient Admission. Condition is Fair. Problem is new. Symptoms have improved.
[2019-11-24] MEDS ORDERED: ONDANSETRON 4 MG/2 ML VIAL ONE (20:59)
[2019-11-24] MEDS ORDERED: NA CHLORIDE 0.9% 1,000 ML ONE (20:59)
[2019-11-24 21:26] LABS: Urine Blood NEGATIVE (NEG); Urine Glucose NEGATIVE (NEG); Urine Protein NEGATIVE (NEG); Urine Specific Gravity 1.015 (1.005-1.030)
--- NOTE | 2019-11-24 21:27 | RAD REPORT ---
EXAM DESCRIPTION: CT - Head Brain Wo Cont - 11/24/2019 9:15 pm CLINICAL HISTORY: Headache COMPARISON: 2017 TECHNIQUE: Computed axial tomography of the head was obtained. IV contrast was not requested. All CT scans are performed using dose optimization technique as appropriate and may include automated exposure control or mA/KV adjustment according to patient size. FINDINGS: An intracranial bleed is not seen . The ventricles are normal in caliber. No extra-axial fluid collection is noted. Fluid within the sinuses/ mastoids is not seen. IMPRESSION: No acute intracranial abnormality is seen. If patient's symptoms persist MRI of the bra in would be recommended.
[2019-11-24 21:28] LABS: Protime INR 1.16
[2019-11-24] MEDS ORDERED: WATER FOR INJ,STERILE 10 ML ONE (21:36)
[2019-11-24] MEDS ORDERED: HYDROCORTISONE SUC 100 MG INJ ONE (21:36)
[2019-11-24 21:43] LABS: Creatine Phosphokinase 44 U/L (26-192); Magnesium 1.9 mg/dL (1.8-2.4); NT PRO-BNP 1067 pg/mL (<450); Troponin (Emerg Dept Use Only) < 0.02 ng/mL (0.0-0.045)
--- NOTE | 2019-11-24 22:18 | P.HP ---
Certification for Inpatient Patient admitted to: Inpatient With expected LOS: >2 Midnights Practitioner: I am a practitioner with admitting privileges, knowledge of patient current condition, hospital course, and medical plan of care. Services: Services provided to patient in accordance with Admission requirements found in Title 42 Section 412.3 of the Code of Federal Regulations Patient History Date of Service: 11/24/19 Reason for admission: Nausea History of Present Illness: 84-year-old woman with a history of TIA, chronic atrial fibrillation, history of pulmonary embolism on chronic anticoagulation presented to the emergency department with a complaint of nausea and poor oral intake since discharge from hospitalization 1 week ago. The patient was hospitalized a week ago for hyponatremia deemed secondary to dehydration, nausea and vomiting which was thought to be related to viral infection. Hyponatremia was corrected and patient discharged home. Patient states he has not been able to eat well and have had constant nausea since discharge. She came to the ED today because her symptoms got worse today. Blood work in the ED revealed hyponatremia and hypochloremia. This is likely secondary to dehydration. Patient is admitted for further management. Allergies aspirin Adverse Reaction (Verified 11/10/19 14:36) RAPID HEART RATE clonidine Adverse Reaction (Verified 11/10/19 14:36) Rapid Heart Rate codeine [Codeine] Adverse Reaction (Verified 11/10/19 14:36) CONFUSION hydrocodone bitartrate [From Vicodin] Adverse Reaction (Verified 11/10/19 14:36) CONFUSION iodine Adverse Reaction (Verified 11/10/19 14:36) NAUSEA lisinopril Adverse Reaction (Verified 11/10/19 14:36) COUGH niacin Adverse Reaction (Verified 11/10/19 14:36) Rash nitrofurantoin Adverse Reaction (Verified 11/10/19 14:36) Itching/Hives/Rash nitrous oxide [Nitrous Oxide] Adverse Reaction (Verified 11/10/19 14:36) Shortness of breath iodine dye Allergy (Intermediate, Uncoded 11/10/19 14:36) Itching/Hives/Rash Home Medications: Apixaban [Eliquis] 1 tab PO BID 02/18/19 Hydralazine HCl [Apresoline] 1 tab PO TID 02/18/19 Irbesartan [Avapro*] 1 tab PO DAILY 02/18/19 Magnesium Oxide [Magnesium] 1 tab PO DAILY 02/18/19 Metformin ER [Glucophage ER*] 1 tab PO BID 02/18/19 Multivitamin [Multivitamins] 1 cap PO DAILY 02/18/19 Omeprazole [Prilosec] 1 tab PO DAILY 02/18/19 Rosuvastatin Calcium [Crestor] 1 tab PO DAILY 02/18/19 Vitamin E 1 tab PO DAILY 02/18/19 carvediloL [Coreg*] 1 tab PO BID 02/18/19 Levothyroxine [Synthroid*] 75 mcg PO [id number] #30 tab 02/19/19 Cholecalciferol (Vitamin D3) [Vitamin D 1000 Iu Tab*] 1,000 unit PO DAILY 11/10/19 Cyanocobalamin (Vitamin B-12) [Vitamin B-12] 2,000 mcg PO DAILY 11/10/19 Pantoprazole [Protonix Tab*] 40 mg PO DAILYAC #30 tab 11/15/19 - Past Medical/Surgical History Diabetic: Yes -: History of nephrolithiasis -: History of TIA- 2 -: History of pulmonary embolism on chronic anti coagulation therapy -: Diabetes mellitus type 2, [id number] -: CAD -: GERD -: Atrial fibrillation on chronic anti coagulation therapy -: Hyperlipidemia -: HTN -: Depression with anxiety -: UTI -: Tonsillectomy -: Removal of colon polyps -: CABG -: Cholecystectomy -: Hysterectomy -: Bone Spurs removed -: Triple Bypass -: 3 Stents in right kidney Psychosocial/ Personal History: Patient lives at home. 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 - Family History Mother -: Heart disease, Other (see notes) Notes: [place]. Age of 64 Father -: Heart disease Notes: Age of 77 - Social History Alcohol use: No CD- Drugs: No Caffeine use: Yes Review of Systems Other: She denies any diarrhea or vomiting or abdominal pain. She denies any fever or coughing or shortness of breath or chest pain. Except as documented, all other systems reviewed and negative. Physical Examination - Physical Exam General: Alert, In no apparent distress, Other (Frail.) HEENT: PERRLA, Mucous membr. moist/pink, Sclerae nonicteric Neck: Supple, JVD not distended, No Thyromegaly Respiratory: Clear to auscultation bilaterally, Normal air movement Cardiovascular: No edema, Normal S1 S2, No murmurs, Irregular heart rate/rhythm Capillary refill: <2 Seconds Gastrointestinal: Normal bowel sounds, Soft and benign, Non-distended, No tenderness Musculoskeletal: No swelling, No erythema Integumentary: No rashes Neurological: Normal speech, Normal strength at 5/5 x4 extr, Cranial nerves 3-12 intact - Studies Laboratory Data (last 24 hrs) 11/24/19 21:00: PT 13.6 H, INR 1.16 11/24/19 21:00: Magnesium 1.9 11/24/19 19:50: Creatinine 0.51 L 11/24/19 19:50: WBC 8.5, Hgb 13.6, Hct 39.1, Plt Count 219 11/24/19 19:50: Sodium 118 L*, Potassium 4.1, BUN 14, Creatinine 0.52 L, Glucose 127 H, Total Bilirubin 0.6, AST 29, ALT 39, Alkaline Phosphatase 109, Lipase 162 Assessment and Plan - Problems (Diagnosis) (1) Hyponatremia Current Visit: No Status: Acute (2) Nausea & vomiting Current Visit: No Status: Acute Qualifiers: (3) Chronic atrial fibrillation Current Visit: Yes Status: Acute (4) Diabetes mellitus Onset Date: 11/13/15 Current Visit: No Status: Chronic Qualifiers: (5) GERD (gastroesophageal reflux disease) Onset Date: 11/16/17 Current Visit: No Status: Chronic Qualifiers: (6) History of pulmonary embolus (PE) Current Visit: No Status: Chronic - Plan Admit patient to the medical floor. Resuscitated with IV normal saline. Monitor BMP q 12 hours. Avoid sodium over-correction by 10 meq. Recent TSH is normal. IV Protonix for possible gastritis. Continue home medications for pulmonary embolism, chronic atrial fibrillation. Insulin sliding scale for glucose management. PT and OT. - Advance Directives Does patient have a Living Will: Yes Does patient have a Durable POA for Healthcare: Yes
[2019-11-24] MEDS ORDERED: ACETAMINOPHEN 500 MG TAB PO PRN (23:32)
[2019-11-24] MEDS ORDERED: ONDANSETRON 4 MG/2 ML VIAL IV PRN (23:32)
[2019-11-24] MEDS ORDERED: SODIUM CHLORIDE 0.9% 10ML INJ IV PRN (23:32)
[2019-11-25 00:04] VITALS: BMI 21.4
[2019-11-25] MEDS: NA CHLORIDE 0.9% 1,000 ML IV SCH ×3 (00:34→18:29)
[2019-11-25 04:44] LABS: Absolute Lymphocytes (CBC) 1.2 K/uL (0.7-4.9); Basophils % 0.2 % (0-1.3); Hematocrit 38.6 % (36.0-45.0); MPV 7.8 fL (7.6-11.3); RBC Red Blood Cell Count 4.12 M/uL (3.86-4.86)
[2019-11-25 07:01] LABS: ALT/SGPT 33 U/L (12-78); AST/SGOT 20 U/L (15-37); Albumin 3.2 g/dL (3.4-5.0); Alkaline Phosphatase 86 U/L (45-117); BUN Blood Urea Nitrogen 8 mg/dL (7-18); Bicarbonate 25 mmol/L (21-32); Bilirubin Total 0.6 mg/dL (0.2-1.0); Glucose Level 145 mg/dL (74-106); Magnesium 1.9 mg/dL (1.8-2.4); Phosphorus 2.9 mg/dL (2.5-4.9); Potassium 3.4 mmol/L (3.5-5.1); Protein, Total 6.4 g/dL (6.4-8.2); Sodium Level 129 mmol/L (136-145)
[2019-11-25] MEDS: INSULIN -REGULAR HUMAN 50 UNIT/0.5 ML ML SQ SCH ×4 (07:30→21:00)
[2019-11-25] MEDS: PANTOPRAZOLE 40 MG INJ IVP SCH (08:30)
[2019-11-25] MEDS: APIXABAN 5 MG TABLET PO SCH ×2 (09:34→21:42)
[2019-11-25] MEDS ORDERED: POTASSIUM 25 MEQ EFFERV TAB PO ONE (10:00)
--- NOTE | 2019-11-25 11:32 | RAD REPORT ---
EXAM DESCRIPTION: RAD - Chest Single View - 11/24/2019 10:26 pm CLINICAL HISTORY: COUGH Chest pain. COMPARISON: Chest Pa And Lat (2 Views) dated 10/14/2019; Chest Single View dated 10/01/2019; Chest Sing le View dated 09/12/2019; Chest Single View dated 08/18/2019 FINDINGS: Portable technique limits examination quality. The lungs are grossly clear. The heart is upper limit of normal in size. No displaced fractures.Bruno otomy wires. IMPRESSION: No acute intrathoracic process suspected.
[2019-11-25] MEDS: HYDRALAZINE HCL 25 MG TABLET PO SCH ×2 (13:46→21:41)
[2019-11-25] MEDS ORDERED: HOME MED 1 EA UNK (Hydralazine Hcl [Apresoline] 100 MG) PO SCH (14:00)
--- NOTE | 2019-11-25 14:25 | PN ---
Date of Progress Note: 11/25/2019 Subjective: Patient seen and examined. Chart reviewed and case discussed with RN. Patient states that she does not have much of an appetite similar to her previous episode of hyponatremia. Medications: List reviewed. Code status reviewed Physical Examination: Vital Signs: Temperature 97.2, heart rate 72, blood pressure 164/69, respirations 18, O2 95% on room air. General: Awake, alert, oriented x3. Elderly female, in some mild distress. CV: S1, S2. Irregularly irregular. Peripheral pulses present. Respiratory: Moving air well bilaterally. No wheezing or stridor. Gastrointestinal: Abdomen is soft, nontender, nondistended. Positive bowel sounds. Extremities: No clubbing, cyanosis, or edema. Neurologic: Nonfocal. Laboratory Data: Sodium 129, potassium 3.4, chloride 95, CO2 of 25, BUN 8, creatinine 0.45, glucose 145, calcium 8.1. WBC 7.1, H and H 13.4 and 38.6. Urine culture pending. Assessment: An 84-year-old female with: 1. Acute hyponatremia, improving. We will continue slow correction. Consult Nephrology, unclear etiology, may be due to syndrome of inappropriate antidiuretic hormone secretion. 2. Intractable nausea/vomiting. Patient has decreased appetite. We will continue with antiemetics. Encourage p.o. intake. 3. Chronic atrial fibrillation. Continue Eliquis and rate control. 4. Diabetes mellitus type 2 with hyperglycemia. We will start on sliding scale insulin. Monitor Accu-Cheks. 5. Gastroesophageal reflux disease. Continue PPI. 6. History of pulmonary embolism. Continue Eliquis. PT/OT eval. Plan: Likely discharge in the next 24-48 hours depending on symptoms and if patient is able to tolerate diet. SA/MODL Voice ID: [id number] Report ID: [id number] MAURA
--- NOTE | 2019-11-25 17:02 | P.CNS ---
Date of Consult: 11/25/19 Reason for Consult: Hyponatremia Requesting Physician: Joe Dunbar Chief Complaint: Nausea History of Present Illness: 84 yo WF CVD presented to the ER with 1 week of moderate, progressive nausea in the setting of anorexia with associated malaise, weakness. 84-year-old woman with a history of TIA, chronic atrial fibrillation, history of pulmonary embolism on chronic anticoagulation presented to the emergency department with a complaint of nausea and poor oral intake since discharge from hospitalization 1 week ago. The patient was hospitalized a week ago for hyponatremia deemed secondary to dehydration, nausea and vomiting which was thought to be related to viral infection. Hyponatremia was corrected and patient discharged home. Patient states he has not been able to eat well and have had constant nausea since discharge. She came to the ED today because her symptoms got worse today. Blood work in the ED revealed hyponatremia and hypochloremia. This is likely secondary to dehydration. Patient is admitted for further management. 20:48 This 84 yrs old Female presents to ER via Wheelchair with complaints of iron Nausea, Weakness. 20:48 The patient presents to the emergency department with nausea, vomiting, that is iron continuous. Onset: The symptoms/episode began/occurred 4 day(s) ago. P ossible causes: unknown. The symptoms are aggravated by nothing. The symptoms are alleviated by nothing. Associated signs and symptoms: The patient has no apparent asso ciated signs or symptoms. Severity of symptoms: At their worst the symptoms were mild moderate in the emergency department the symptoms are unchanged. The patient has not exper ienced similar symptoms in the past. Allergies aspirin Adverse Reaction (Verified 11/25/19 00:06) RAPID HEART RATE clonidine Adverse Reaction (Verified 11/25/19 00:06) Rapid Heart Rate codeine [Codeine] Adverse Reaction (Verified 11/25/19 00:06) CONFUSION hydrocodone bitartrate [From Vicodin] Adverse Reaction (Verified 11/25/19 00:06) CONFUSION iodine Adverse Reaction (Verified 11/25/19 00:06) NAUSEA lisinopril Adverse Reaction (Verified 11/25/19 00:06) COUGH niacin Adverse Reaction (Verified 11/25/19 00:06) Rash nitrofurantoin Adverse Reaction (Verified 11/25/19 00:06) Itching/Hives/Rash nitrous oxide [Nitrous Oxide] Adverse Reaction (Verified 11/25/19 00:06) Shortness of breath iodine dye Allergy (Intermediate, Uncoded 11/10/19 14:36) Itching/Hives/Rash Home medications list reviewed: Yes Home Medications: Apixaban [Eliquis] 1 tab PO BID 02/18/19 Hydralazine HCl [Apresoline] 100 mg PO TID 02/18/19 Irbesartan [Avapro*] 150 mg PO DAILY 02/18/19 Magnesium Oxide [Magnesium] 1 tab PO DAILY 02/18/19 Metformin ER [Glucophage ER*] 500 mg PO BID 02/18/19 Multivitamin [Multivitamins] 1 cap PO DAILY 02/18/19 Rosuvastatin Calcium [Crestor] 40 mg PO DAILY 02/18/19 Vitamin E 1 tab PO DAILY 02/18/19 carvediloL [Coreg*] 25 mg PO BID 02/18/19 Cholecalciferol (Vitamin D3) [Vitamin D 1000 Iu Tab*] 1,000 unit PO DAILY 11/10/19 Cyanocobalamin (Vitamin B-12) [Vitamin B-12] 2,000 mcg PO DAILY 11/10/19 Pantoprazole [Protonix Tab*] 40 mg PO DAILYAC #30 tab 11/15/19 Levothyroxine [Synthroid*] 75 mcg PO BEDTIME 11/25/19 - Past Medical/Surgical History Diabetic: Yes -: History of nephrolithiasis -: History of TIA- 2 -: History of pulmonary embolism on chronic anti coagulation therapy -: Diabetes mellitus type 2, [id number] -: CAD -: GERD -: Atrial fibrillation on chronic anti coagulation therapy -: Hyperlipidemia -: HTN -: Depression with anxiety -: UTI -: Tonsillectomy -: Removal of colon polyps -: CABG -: Cholecystectomy -: Hysterectomy -: Bone Spurs removed -: Triple Bypass -: 3 Stents in right kidney Psychosocial/ Personal History: Patient lives at home. 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 - Family History Mother Medical History: Heart disease, Other (see notes) Notes: [place]. Age of 64 Father Medical History: Heart disease Notes: Age of 77 - Social History Smoking Status: Unknown if ever smoked Alcohol use: No CD- Drugs: No Caffeine use: Yes Place of Residence: Home Review of Systems 10-point ROS is otherwise unremarkable General: Weakness, Malaise Gastrointestinal: Nausea Physical Examination Temp Pulse Resp BP Pulse Ox 97.5 F 66 18 179/60 H 99 11/25/19 12:00 11/25/19 12:00 11/25/19 12:00 11/25/19 12:00 11/25/19 12:00 General: In no apparent distress, Oriented x3, Cooperative HEENT: Atraumatic Neck: Supple Respiratory: Clear to auscultation bilaterally Cardiovascular: No edema, Regular rate/rhythm Gastrointestinal: Soft and benign, Non-distended Musculoskeletal: No clubbing, No contractures Integumentary: No rashes, No cyanosis Neurological: Normal speech Laboratory Data (last 24 hrs) 11/24/19 21:00: PT 13.6 H, INR 1.16 11/24/19 21:00: Magnesium 1.9 11/24/19 19:50: Creatinine 0.51 L 11/24/19 19:50: WBC 8.5, Hgb 13.6, Hct 39.1, Plt Count 219 11/24/19 19:50: Sodium 118 L*, Potassium 4.1, BUN 14, Creatinine 0.52 L, Glucose 127 H, Total Bilirubin 0.6, AST 29, ALT 39, Alkaline Phosphatase 109, Lipase 162 Imagings Data: EXAM DESCRIPTION: RAD - Chest Single View - 11/24/2019 10:26 pm CLINICAL HISTORY: COUGH Chest pain. COMPARISON: Chest Pa And Lat (2 Views) dated 10/14/2019; Chest Single View dated 10/01/2019; Chest Single View dated 09/12/2019; Chest Single View dated 08/18/2019 FINDINGS: Portable technique limits examination quality. The lungs are grossly clear. The heart is upper limit of normal in size. No displaced fractures.Sternotomy wires. IMPRESSION: No acute intrathoracic process suspected. NORMAL LEFT VENTRICULAR EJECTION FRACTION. DILATED LEFT ATRIUM. AORTIC SCLEROSIS WITH NO AORTIC STENOSIS OR AORTIC REGURGITATION. MILD MITRAL AND TRICUSPID REGURGITATION. MILD PULMONARY HYPERTENSION. Conclusions/Impression: A/ Hypotonic hyponatremia Hypokalemia Hypocalcemia HTN Pulmonary HTN DM II with CKD. Proteinuria P/ Continue current POC and Medications. Continue IVF. Start salt tabs. Replete potassium. Increase Irbesartan BID. Start Vitamin D3. No sugar diet. No NSAIDs. AM labs. Daily weight. Thank you kindly for the consultation. Case reviewed with Dr. Dunbar.
[2019-11-25] MEDS: HYDRALAZINE HCL 20 MG/ML VIAL IV PRN (17:44)
[2019-11-25] MEDS: VITAMIN D 5,000 UNIT CAP PO SCH (17:44)
[2019-11-25] MEDS: SODIUM CHLORIDE 1 GM TAB PO SCH ×2 (17:44→21:42)
[2019-11-25] MEDS: CALCITROL 0.25 MCG CAP PO SCH (17:50)
[2019-11-25] MEDS ORDERED: LEVOTHYROXINE SOD 0.075 MG TAB PO SCH (21:00)
[2019-11-25] MEDS: IRBESARTAN 150 MG TAB PO SCH (21:42)
[2019-11-25] MEDS: carvediloL 25 MG TAB PO SCH (21:42)
[2019-11-25 23:34] LABS: BUN Blood Urea Nitrogen 6 mg/dL (7-18); Bicarbonate 26 mmol/L (21-32); Glucose Level 127 mg/dL (74-106); Potassium 3.6 mmol/L (3.5-5.1); Sodium Level 132 mmol/L (136-145)
[2019-11-25 23:59] VITALS: O2SAT 97
[2019-11-26] MEDS ORDERED: POTASSIUM CL SA 10 MEQ TAB PO ONE (00:15)
[2019-11-26 03:54] LABS: Urine Appearance CLEAR; Urine Bilirubin NEGATIVE (NEG); Urine Blood NEGATIVE (NEG); Urine Color YELLOW; Urine Glucose NEGATIVE (NEG); Urine Protein NEGATIVE (NEG); Urine Specific Gravity <=1.005 (1.005-1.030); Urine pH 7.5 (5.0-7.0)
[2019-11-26] MEDS: NA CHLORIDE 0.9% 1,000 ML IV SCH (04:36)
[2019-11-26 04:53] LABS: UR MICROALBUMIN 1.1 mg/dL (< 1.9)
[2019-11-26] MEDS: carvediloL 25 MG TAB PO SCH (05:18)
[2019-11-26 05:29] LABS: Urine Bacteria <20 /HPF (<20); Urine Culture Reflex Order NOT NEEDED; Urine RBC NONE SEEN /HPF (NONE SEEN)
[2019-11-26 05:46] LABS: BUN Blood Urea Nitrogen 6 mg/dL (7-18); Bicarbonate 25 mmol/L (21-32); Glucose Level 121 mg/dL (74-106); Potassium 4.1 mmol/L (3.5-5.1); Sodium Level 131 mmol/L (136-145); Uric Acid 1.5 mg/dL (2.6-6.0)
[2019-11-26] MEDS: INSULIN -REGULAR HUMAN 50 UNIT/0.5 ML ML SQ SCH ×2 (07:30→11:30)
[2019-11-26] MEDS ORDERED: HOME MED 1 EA UNK (Rosuvastatin Calcium [Crestor] 40 MG) PO SCH (09:00)
[2019-11-26] MEDS ORDERED: IRBESARTAN 150 MG TAB PO SCH (09:00)
[2019-11-26] MEDS ORDERED: ROSUVASTATIN 10 MG TAB PO SCH (09:00)
[2019-11-26] MEDS: APIXABAN 5 MG TABLET PO SCH (09:32)
[2019-11-26] MEDS: HYDRALAZINE HCL 25 MG TABLET PO SCH ×2 (09:32→14:00)
[2019-11-26] MEDS: VITAMIN D 5,000 UNIT CAP PO SCH (09:32)
[2019-11-26] MEDS: CALCITROL 0.25 MCG CAP PO SCH (09:32)
[2019-11-26] MEDS: IRBESARTAN 150 MG TAB PO SCH (09:33)
[2019-11-26] MEDS: SODIUM CHLORIDE 1 GM TAB PO SCH ×2 (09:34→12:19)
[2019-11-26] MEDS: PANTOPRAZOLE 40 MG INJ IVP SCH (09:34)
--- NOTE | 2019-11-26 10:54 | EKG ---
Test Date: 2019-11-24 Test Time: 21:07:02 Social Media Marketing Manager: MEASUREMENT RESULTS: Intervals: Rate: 76 MS: QRSD: 100 QT: 430 QTc: 483 [place]: P: MS: QRS: 43 T: 193 INTERPRETIVE STATEMENTS: Atrial fibrillation Minimal voltage criteria for LVH, may be normal variant Cannot rule out Anterior infarct, age undetermined ST & T wave abnormality, consider inferolateral ischemia or digitalis effect Abnormal ECG Compared to ECG 11/10/2019 11:11:37 Left ventricular hypertrophy now present ST (T wave) deviation now present Possible ischemia now present Myocardial infarct finding still present Electronically Signed On 11-26-19 10:49:27 CDT by Jass Lance
[2019-11-26 11:23] LABS: BUN Blood Urea Nitrogen 6 mg/dL (7-18); Bicarbonate 24 mmol/L (21-32); Glucose Level 127 mg/dL (74-106); Sodium Level 131 mmol/L (136-145)
[2019-11-26 11:24] LABS: Potassium 4.2 mmol/L (3.5-5.1)
[2019-11-26] MEDS ORDERED: METOCLOPRAMIDE 5 MG TAB PO ONE (11:30)
[2019-11-26] MEDS ORDERED: CEFTRIAXONE 1 GM/NS 50 ML 1 GM/50 ML BAG IV SCH (11:33)
[2019-11-26] MEDS ORDERED: CEFTRIAXONE/SWI 1gm 1 GM/10 ML SYR IV SCH (12:00)
[2019-11-26] MEDS: HYDRALAZINE HCL 20 MG/ML VIAL IV PRN (12:19)
[2019-11-26 12:30] VITALS: TEMP 97.9
[2019-11-26 14:01] VITALS: BP 146/60
--- NOTE | 2019-11-26 16:36 | P.PN ---
Date of Service: 11/26/19 Vital Signs Temp Pulse Resp BP Pulse Ox 97.9 F 61 15 146/60 H 98 11/26/19 12:00 11/26/19 12:00 11/26/19 12:00 11/26/19 14:00 11/26/19 12:00 Microbiology Results 11/24/19 21:00 Catheterized Urine [place] Count - Preliminary <10,000 CFU/ML. 11/24/19 21:00 Catheterized Urine - Preliminary Assessment/ Plan: Nephrology Feeling better today with improved appetite. CPS stable without CP or SOB. No acute events overnight. Vitals, medications, blood work and imaging reviewed in the chart. General: In no apparent distress, Oriented x3, Cooperative HEENT: Atraumatic Neck: Supple Respiratory: Clear to auscultation bilaterally Cardiovascular: No edema, Regular rate/rhythm Gastrointestinal: Soft and benign, Non-distended Musculoskeletal: No clubbing, No contractures Integumentary: No rashes, No cyanosis Neurological: Normal speech Laboratory Data (last 24 hrs) 11/24/19 21:00: PT 13.6 H, INR 1.16 11/24/19 21:00: Magnesium 1.9 11/24/19 19:50: Creatinine 0.51 L 11/24/19 19:50: WBC 8.5, Hgb 13.6, Hct 39.1, Plt Count 219 11/24/19 19:50: Sodium 118 L*, Potassium 4.1, BUN 14, Creatinine 0.52 L, Glucose 127 H, Total Bilirubin 0.6, AST 29, ALT 39, Alkaline Phosphatase 109, Lipase 162 Imagings Data: EXAM DESCRIPTION: RAD - Chest Single View - 11/24/2019 10:26 pm CLINICAL HISTORY: COUGH Chest pain. COMPARISON: Chest Pa And Lat (2 Views) dated 10/14/2019; Chest Single View dated 10/01/2019; Chest Single View dated 09/12/2019; Chest Single View dated 08/18/2019 FINDINGS: Portable technique limits examination quality. The lungs are grossly clear. The heart is upper limit of normal in size. No displaced fractures.Sternotomy wires. IMPRESSION: No acute intrathoracic process suspected. NORMAL LEFT VENTRICULAR EJECTION FRACTION. DILATED LEFT ATRIUM. AORTIC SCLEROSIS WITH NO AORTIC STENOSIS OR AORTIC REGURGITATION. MILD MITRAL AND TRICUSPID REGURGITATION. MILD PULMONARY HYPERTENSION. Conclusions/Impression: A/ Hypotonic hyponatremia Hypokalemia Hypocalcemia HTN Pulmonary HTN DM II with CKD. Proteinuria P/ Continue current POC and Medications. Continue IVF. Continue salt tabs. Counseled regarding hyponatremia. No sugar diet. No NSAIDs. AM labs. Daily weight.
--- NOTE | 2019-11-27 00:43 | DS ---
Date of Discharge: 11/26/2019 Consultants: Dr. Wright with Nephrology. Admitting Diagnoses: 1.Acute hyponatremia. 2.Intractable nausea, vomiting. 3.Chronic atrial fibrillation, on Eliquis. 4.Diabetes mellitus type 2 with hyperglycemia, non-insulin requiring. 5.Gastroesophageal reflux disease. 6.History of pulmonary embolism, on anticoagulation. Discharge Diagnoses: 1.Acute hyponatremia, correcting. 2.Chronic atrial fibrillation, on anticoagulation. 3.Intractable nausea, vomiting, may be secondary to diabetic gastroparesis or other esophageal motil ity or other issues. We will need GI followup. Able to tolerate diet at this time. 4.Diabetes mellitus, type 2, [id number] with hyperglycemia, stable. 5.Gastroesophageal reflux disease. We will continue PPI. 6.History of pulmonary embolism, continue Eliquis, stable. Hospital Course: Patient is an 84-year-old female with history of TIA, chronic atrial fibrillation a nd PE, on anticoagulation, diabetes, patient given with acute hyponatremia, this was her second visit in the recent past. She was discharge approximately a week ago, this was thought to be due to dehyd ration, nausea and vomiting. Since then, patient again had some decreased appetite, became nauseous, was unable to eat and became hyponatremic again. Patient has also been started on salt tablets. Sh e was put on IV fluids. Sodium was corrected cautiously to avoid over-correction and to avoid correc ting too quickly. Nephrology was also consulted. The patient's sodium improved and has remained sta ble around 130s, which used to be close to her baseline. Kidney function remained stable. Patient w ill likely need GI workup for ruling out gastric motility issues, possibly due to diabetic gastropare sis as well as to rule out any sort of ulcer or mechanical issues in the esophagus. The patient urin e did grow out gram-negative rods, less than 10,000 colony-forming units. Her UA itself was negative . She was given dose of Rocephin. Patient denies any dysuria. This is likely asymptomatic bacteriu marky that will not need any further antibiotics when she goes home. Overall, patient did well. She w as then cleared for discharge. She was ambulating well, did not require any assistance. She lives w ith her and daughter. , however is demented. She also has a daughter across the [facility] et and did not wish to have any physical therapy setup. Patient's electrolytes were also corrected. Patient was then discharged home after being cleared by Nephrology. Activity: As tolerated. Medications: As per medication reconciliation list. Followup: Follow up with primary care physician in 2-3 days. Follow up with [employer], Dr. Alma Delia cannon in 1 week. Return to ER for worsening condition. Diet: Diabetic, small meals more frequently. Physical Examination: General: Awake, alert oriented x3. Elderly female, not in any acute distress. CV: S1, S2. Respiratory: Moving air well bilaterally. Abdomen: Soft, nontender, nondistended. Positive bowel sounds. Extremities: No clubbing, cyanosis, or edema. Neuro: Nonfocal. Total time spent discharging patient was 35 minutes. /CHIKI Voice ID: [id number] Report ID: [id number]
== END 2019-11-26 15:41 | disposition home or self-care (01) | DRG 641 ==
LOC: ER 18:19 → ERHOLD 22:21 → 2ND 23:27
PROVIDERS: ADMIT Internal Medicine; ATTEND Family Medicine
DX: E87.1 Hypo-osmolality and hyponatremia (principal); I48.20 Chronic atrial fibrillation, unspecified; E86.0 Dehydration; Z88.5 Allergy status to narcotic agent; Z88.8 Allergy status to other drugs, medicaments and biological substances; Z88.1 Allergy status to other antibiotic agents; Z91.041 Radiographic dye allergy status; Z79.01 Long term (current) use of anticoagulants; Z79.890 Hormone replacement therapy; Z79.84 Long term (current) use of oral hypoglycemic drugs; Z79.899 Other long term (current) drug therapy; Z79.02 Long term (current) use of antithrombotics/antiplatelets; K21.9 Gastro-esophageal reflux disease without esophagitis; Z86.73 Personal history of transient ischemic attack (TIA), and cerebral infarction without residual deficits; E78.5 Hyperlipidemia, unspecified; Z86.711 Personal history of pulmonary embolism; I25.10 Atherosclerotic heart disease of native coronary artery without angina pectoris; Z95.1 Presence of aortocoronary bypass graft; Z90.49 Acquired absence of other specified parts of digestive tract; Z90.710 Acquired absence of both cervix and uterus; E87.6 Hypokalemia; E83.51 Hypocalcemia; I27.20 Pulmonary hypertension, unspecified; E11.22 Type 2 diabetes mellitus with diabetic chronic kidney disease; N18.9 Chronic kidney disease, unspecified; I12.9 Hypertensive chronic kidney disease with stage 1 through stage 4 chronic kidney disease, or unspecified chronic kidney disease; E11.65 Type 2 diabetes mellitus with hyperglycemia; E11.43 Type 2 diabetes mellitus with diabetic autonomic (poly)neuropathy; K31.84 Gastroparesis
CPT/HCPCS: 36415; 70450; 71045; 80048; 80053; 80076; 81001; 81003; 82043; 82550; 82570; 82947; 83690; 83735; 83880; 83930; 83935; 84100; 84300; 84484; 84550; 85025; 85610; 87077; 87086; 87088; 87186; 93005; 94760; 97116; 97161; 99285; C9113; J0360; J0696; J1720; J2405; J7030

== ENCOUNTER 2020-03-04 17:03 | Emergency (ER) | payer OTHER ==
--- OUTSIDE RECORDS SUMMARY | 2020-03-04 17:07 | XMS REPORT | Clinical Summary ---
:1935 Author Organization [facility] Address [address] [place] [address] Care Team Providers Name Role Phone Unavailable Primary Care Provider Unavailable Allergies Active Allergy Reactions Severity Noted Date Comments Aspirin 11/19/2017 palpitations Codeine 11/19/2017 Confusion Iodinated Contrast Media 11/19/2017 vom iting Medications Medication Sig Dispensed Refills Start Date End Date Status carvedilol (COREG) 25 Take 25 mg by 0 Active MG tablet mouth 2 (two) times daily with breakfast and dinner. rosuvastatin (CRESTOR) Take 40 mg by 0 Active 40 MG tablet mouth daily. apixaban (ELIQUIS) 5 mg Take 5 mg by 0 Active Tab tablet mouth 2 (two) times daily. hydrALAZINE Take 100 mg by 0 Act marty (APRESOLINE) 100 MG mouth 3 (three) tablet times daily. magnesium gluconate Take 500 mg by 0 Active (MAGONATE) 27.5 mg (500 mouth daily . mg) tablet metFORMIN (GLUCOPHAGE) Take 500 mg by 0 Active 500 MG tablet mouth 2 (two) times daily with breakfast and dinner. omeprazole (PRILOSEC) Take 40 mg by 0 Active 40 MG capsule mouth daily. valsartan (DIOVAN) 160 Take 160 mg by 0 Active MG tablet mouth daily. verapamil (VERELAN PM) Take 240 mg by 0 Active 240 MG 24 hr capsule mouth nightly. cyanocobalamin (VITAMIN Take 1,000 mcg by 0 Active B-12) 1000 MCG tablet mouth daily. cholecalciferol, Take 1,000 Units 0 Active vitamin D3, 1,000 unit by mouth daily. capsule irbesartan (AVAPRO) 150 Take 150 mg by 0 02/18/2019 Active MG tablet mouth daily. amLODIPine (NORVASC) 10 Take 10 mg by 0 02/18/2019 Active MG tablet mouth daily. clopidogrel (PLAVIX) 75 Take 75 mg by 0 Active mg tablet mouth daily. sertraline (ZOLOFT) 25 Take 25 mg by 0 Active MG tablet mouth daily. cranberry conc-ascorbic Take 4,200 mg by 0 Active acid (CRANBERRY mouth 2 (two) CONCENTRATE) 140-100 mg times daily. Cap Lactobac 42-Bifid Take 1 tablet by 0 Active 3-rcetct-QLQ (PROBIOTIC mouth daily. PLUS COLOSTRUM) 30-500-50 mg PwPk losbbxvu-xmx-lrfuaoh Take 1 tablet by 0 Active fumarate (MULTI mouth daily. VITAMIN) 9 mg iron/15 mL Liqd Active Problems Problem Noted Date Expressive aphasia 11/19/2017 Essential hypertension 11/19/2017 Type 2 diabetes mellitus without complication, without long-term current 11/19/2017 use of insulin Chronic atrial fibrillation 11/19/2017 Hyponatremia 11/19/2017 TIA (transient ischemic attack) 11/19/2017 Encounters Date Type Specialty Care Team Description 04/30/2019 - Hospital Cardiology Svetlana Edwards Chronic a trial fibrillation; 05/01/2019 Encounter MD Rivas Essential hypertension; Canelo Bariv e aphasia; MD Ayaan Hyponatremia; Nathan Robles Type 2 ju[place] betes mellitus without complication, without long-term current use of insulin (HCC); Hx-TIA (transie nt ischemic attack); Intracranial va scular stenosis 04/30/2019 Travel 04/29/2019 Abstract Internal Medicine Svetlana Edwards MD after 03/04/2019 Social History Tobacco Use Types Packs/Day Years Used Date Never Smoker Smokeless Tobacco: Never Used Sex Assigned at Date Recorded Not on file Job Start Date Occupation Industry Not on file Not on file Not on file Travel History Travel Start Travel End No recent travel history available. Last Filed Vital Signs Vital Sign Reading Time Taken Blood Pressure 159/60 05/01/2019 3:00 PM CDT Pulse 68 05/01/2019 3:00 PM CDT Temperature 36.7 C (98 F) 05/01/2019 3:00 PM CDT Respiratory Rate 18 05/01/2019 3:00 PM CDT Oxygen Saturation 96% 05/01/2019 3:00 PM CDT Inhaled Oxygen Concentration - - Weight 59.1 kg (130 lb 6.4 oz) 05/01/2019 9:00 AM CDT Height - - Body Mass Index 22.38 05/01/2019 9:00 AM CDT Plan of Treatment Not on file Procedures Procedure Name Priority Date/Time Associated Comments Diagnosis REPORT OF PROCEDURE - 05/02/2019 1:30 ENDOSCOPY SCAN PM CDT RHYTHM STRIP - SCAN 05/02/2019 1:30 PM CDT ECHOCARDIOGRAM REPORT - 05/01/2019 9:[address]/CTA CAROTID Routine 05/01/2019 10:12 Results f or this AM CDT procedure are i n the results section. CTA BRAIN Routine 05/01/2019 10:12 Results for this AM CDT procedure are i n the results section. BASIC METABOLIC PANEL Routine 05/01/2019 4:23 Re sults for this (7) AM CDT procedure are i n the results section. CBC (HEMOGRAM ONLY) Routine 05/01/2019 4:23 Resu lts for this AM CDT procedure are i n the results section. TROPONIN I Routine 04/30/2019 7:34 Results for this PM CDT procedure are i n the results section. MR BRAIN WITHOUT IV Routine 04/30/2019 6:31 Resu lts for this CONTRAST PM CDT procedure are i n the results section. 2D ECHO W/ DOPPLER Routine 04/30/2019 4:26 Resul ts for this (CW/PW/COLOR) PM CDT procedure are in the results section. VITAMIN B12 Routine 04/30/2019 7:02 Results for this AM CDT procedure are i n the results section. TSH/FREE T4 IF Routine 04/30/2019 7:02 Results f or this INDICATED AM CDT procedure are i n the results section. CBC W/PLT COUNT & AUTO Routine 04/30/2019 4:28 R esults for this DIFFERENTIAL AM CDT procedure are i n the results section. TROPONIN I Routine 04/30/2019 4:28 Results for this AM CDT procedure are i n the results section. HEMOGLOBIN A1C Routine 04/30/2019 4:28 Results f or this AM CDT procedure are i n the results section. CBC W/PLT COUNT & AUTO Routine 04/30/2019 4:28 R esults for this DIFFERENTIAL AM CDT procedure are i n the results section. LIPID PANEL Routine 04/30/2019 4:28 Results for this AM CDT procedure are i n the results section. BASIC METABOLIC PANEL Routine 04/30/2019 4:28 Re sults for this (7) AM CDT procedure are i n the results section. after 03/04/2019 Results EKG-SCANNED (05/02/2019 1:30 PM CDT) Narrative Performed At This result has an attachment that is no t available. RHYTHM STRIP - SCAN (05/02/2019 1:30 PM CDT) Narrative Performed At This result has an attachment that is no t available. ECHOCARDIOGRAM REPORT - SCAN (05/01/2019 9:20 PM CDT) Narrative Performed At This result has an attachment that is no t available. CTA carotid (05/01/2019 10:12 AM CDT) Specimen Narrative Performed At FINAL REPORT [employer] CLINICAL HISTORY: TIA TECHNIQUE: Initially, noncontrast head C T images were performed. Contiguous contrast-enhanced axial image s through the neck followed by axial images through the head with co maya and sagittal reformations to assess the arterial circ ulation. 3-D reconstructions were performed using a volume rendered t echnique separately on a workstation. This exam was performed acc ording to the departmental dose optimization program which includes automated exposure control, adjustment of the mA and/or kV according to the patient size, and/or use of an iterative reconstruction techn ique. COMPARISON: Conventional catheter angiog lisandro 11/22/2017, CTA 11/21/2017, MRI 11/20/2017 FINDINGS: There is no CT evidence of acute infarct or hemorrhage. There is no hydrocephalus or midline shift. The skul l is intact. There is no evidence for a [place] lis proximal branch vessel occlusion. Mild multifocal intracranial atherosclerotic disease is unchanged. No aneurysms are seen. Severe left internal carotid artery siph on stenosis, near critical at the carotid terminus appears unchanged. Moderate right carotid siphon stenosis is also unchanged. Approximately 30-40% stenosis of the jeri ateral proximal internal carotid arteries by NASCET criteria is u nchanged. A broad-based 5 mm protuberance again projects laterally fr om the proximal left cervical internal carotid artery compatible with a pseudoaneurysm, also unchanged. Mild to moderate bilateral vertebral art aron origin and intradural segment stenoses are unchanged. There are dorsal spondylitic changes in the cervical spine. There are scattered subcentimeter lymph nodes in t he neck. The visualized lung apices are clear. IMPRESSION: Since 2018, severe left internal carotid artery siphon stenosis, with near critical narrowing at the carotid t erminus is unchanged. Moderate right carotid siphon stenosis i s unchanged. 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 No hemodynamically significant stenosis of the proximal internal carotid arteries by NASCET criteria. Mild to moderate bilateral vertebral art aron stenosis, unchanged. No evidence for a [place] proxi mal branch vessel occlusion. Signed: Alexa Bolden MD Report Verified Date/Time:05/01/2019 10:58:29 Reading Location: [address] Room Procedure Note Interface, External Ris In - 05/01/2019 11:07 AM CDT FINAL REPORT CLINICAL HISTORY: TIA TECHNIQUE: Initially, noncontrast head C T images were performed. Contiguous contrast-enhanced axial image s through the neck followed by axial images through the head with co maya and sagittal reformations to assess the arterial circ ulation. 3-D reconstructions were performed using a volume rendered t echnique separately on a workstation. This exam was performed acc ording to the departmental dose optimization program which includes automated exposure control, adjustment of the mA and/or kV according to the patient size, and/or use of an iterative reconstruction techn ique. COMPARISON: Conventional catheter angiog lisandro 11/22/2017, CTA 11/21/2017, MRI 11/20/2017 FINDINGS: There is no CT evidence of acute infarct or hemorrhage. There is no hydrocephalus or midline shift. The skul l is intact. There is no evidence for a [place] lis proximal branch vessel occlusion. Mild multifocal intracranial atherosclerotic disease is unchanged. No aneurysms are seen. Severe left internal carotid artery siph on stenosis, near critical at the carotid terminus appears unchanged. Moderate right carotid siphon stenosis is also unchanged. Approximately 30-40% stenosis of the jeri ateral proximal internal carotid arteries by NASCET criteria is u nchanged. A broad-based 5 mm protuberance again projects laterally fr om the proximal left cervical internal carotid artery compatible with a pseudoaneurysm, also unchanged. Mild to moderate bilateral vertebral art aron origin and intradural segment stenoses are unchanged. There are dorsal spondylitic changes in the cervical spine. There are scattered subcentimeter lymph nodes in t he neck. The visualized lung apices are clear. IMPRESSION: Since 2018, severe left internal carotid artery siphon stenosis, with near critical narrowing at the carotid t erminus is unchanged. Moderate right carotid siphon stenosis i s unchanged. 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 No hemodynamically significant stenosis of the proximal internal carotid arteries by NASCET criteria. Mild to moderate bilateral vertebral art aron stenosis, unchanged. No evidence for a [place] proxi mal branch vessel occlusion. Signed: Alexa Bolden MD Report Verified Date/Time: 05/01/2019 1 0:58:29 Reading Location: [facility] C013V [facility] Performing Organization Address City/State/Zipcode Phone Number [employer] CTA brain (05/01/2019 10:12 AM CDT) Specimen Narrative Performed At FINAL REPORT [employer] CLINICAL HISTORY: TIA TECHNIQUE: Initially, noncontrast head C T images were performed. Contiguous contrast-enhanced axial image s through the neck followed by axial images through the head with co maya and sagittal reformations to assess the arterial circ ulation. 3-D reconstructions were performed using a volume rendered t echnique separately on a workstation. This exam was performed acc ording to the departmental dose optimization program which includes automated exposure control, adjustment of the mA and/or kV according to the patient size, and/or use of an iterative reconstruction techn ique. COMPARISON: Conventional catheter angiog lisandro 11/22/2017, CTA 11/21/2017, MRI 11/20/2017 FINDINGS: There is no CT evidence of acute infarct or hemorrhage. There is no hydrocephalus or midline shift. The skul l is intact. There is no evidence for a [place] lis proximal branch vessel occlusion. Mild multifocal intracranial atherosclerotic disease is unchanged. No aneurysms are seen. Severe left internal carotid artery siph on stenosis, near critical at the carotid terminus appears unchanged. Moderate right carotid siphon stenosis is also unchanged. Approximately 30-40% stenosis of the jeri ateral proximal internal carotid arteries by NASCET criteria is u nchanged. A broad-based 5 mm protuberance again projects laterally fr om the proximal left cervical internal carotid artery compatible with a pseudoaneurysm, also unchanged. Mild to moderate bilateral vertebral art aron origin and intradural segment stenoses are unchanged. There are dorsal spondylitic changes in the cervical spine. There are scattered subcentimeter lymph nodes in t he neck. The visualized lung apices are clear. IMPRESSION: Since 2018, severe left internal carotid artery siphon stenosis, with near critical narrowing at the carotid t erminus is unchanged. Moderate right carotid siphon stenosis i s unchanged. 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 No hemodynamically significant stenosis of the proximal internal carotid arteries by NASCET criteria. Mild to moderate bilateral vertebral art aron stenosis, unchanged. No evidence for a [place] proxi mal branch vessel occlusion. Signed: Alexa Bolden MD Report Verified Date/Time:05/01/2019 10:58:29 Reading Location: [facility] Procedure Note Interface, External Ris In - 05/01/2019 11:07 AM CDT FINAL REPORT CLINICAL HISTORY: TIA TECHNIQUE: Initially, noncontrast head C T images were performed. Contiguous contrast-enhanced axial image s through the neck followed by axial images through the head with co maya and sagittal reformations to assess the arterial circ ulation. 3-D reconstructions were performed using a volume rendered t echnique separately on a workstation. This exam was performed acc ording to the departmental dose optimization program which includes automated exposure control, adjustment of the mA and/or kV according to the patient size, and/or use of an iterative reconstruction techn ique. COMPARISON: Conventional catheter angiog lisandro 11/22/2017, CTA 11/21/2017, MRI 11/20/2017 FINDINGS: There is no CT evidence of acute infarct or hemorrhage. There is no hydrocephalus or midline shift. The skul l is intact. There is no evidence for a [place] proximal branch vessel occlusion. Mild multifocal intracranial atherosclerotic disease is unchanged. No aneurysms are seen. Severe left internal carotid artery siph on stenosis, near critical at the carotid terminus appears unchanged. Moderate right carotid siphon stenosis is also unchanged. Approximately 30-40% stenosis of the jeri ateral proximal internal carotid arteries by NASCET criteria is u nchanged. A broad-based 5 mm protuberance again projects laterally fr om the proximal left cervical internal carotid artery compatible with a pseudoaneurysm, also unchanged. Mild to moderate bilateral vertebral art aron origin and intradural segment stenoses are unchanged. There are dorsal spondylitic changes in the cervical spine. There are scattered subcentimeter lymph nodes in t he neck. The visualized lung apices are clear. IMPRESSION: Since 2018, severe left internal carotid artery siphon stenosis, with near critical narrowing at the carotid t erminus is unchanged. Moderate right carotid siphon stenosis i s unchanged. 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 No hemodynamically significant stenosis of the proximal internal carotid arteries by NASCET criteria. Mild to moderate bilateral vertebral art aron stenosis, unchanged. No evidence for a [place] proxi mal branch vessel occlusion. Signed: Alexa Bolden MD Report Verified Date/Time: 05/01/2019 1 0:58:29 Reading Location: [address] Performing Organization Address City/State/Zipcode Phone Number [facility] RIS CBC (Hemogram only) (05/01/2019 4:23 AM CDT) WBC 7.4 3.5 - 10.5 K/L [facility] RBC 3.56 (L) 3.93 - 5.22 M/L [facility] Hemoglobin 11.3 11.2 - 15.7 GM/DL [facility] Hematocrit 33.9 (L) 34.1 - 44.9 % [facility] MCV 95.2 (H) 79.4 - 94.8 fL [facility] MCH 31.7 25.6 - 32.2 pg [facility] MCHC 33.3 32.2 - 35.5 GM/DL [facility] RDW 12.0 11.7 - 14.4 % [facility] Platelets 170 150 - 450 K/CU MM [facility] MPV 9.6 9.4 - 12.3 fL [facility] nRBC 0 0 - 0 /100 WBC [facility] Specimen Blood Performing Organization Address City/State/Zipcode Phone Number [address] [address] CENTER Basic Metabolic Panel (05/01/2019 4:23 AM CDT)Only the most recent of2 results within the time period is included. Sodium 133 (L) 136 - 145 meq/L [facility] Potassium 4.3 3.5 - 5.1 meq/L [facility] Chloride 104 98 - 107 meq/L [facility] CO2 24 22 - 29 meq/L [facility] BUN 8 7 - 21 mg/dL [facility] Creatinine 0.63 0.57 - 1.25 mg/dL [facility] Glucose 105 70 - 105 mg/dL [facility] Calcium 8.8 8.4 - 10.2 mg/dL [facility] EGFR 90Comment: ESTIMATED GFR IS mL/min/1.73 sq m [facility] NOT ACCURATE CREATININE [facility] CLEARANCE IN PREDICTING GLOMERULAR FILTRATION RATE. ESTIMATED GFR IS NOT APPLICABLE FOR DIALYSIS PATIENTS. Specimen Blood Performing Organization Address City/[facility]/Zipcode Phone Number [address] [address] CENTER Troponin I (04/30/2019 7:34 PM CDT)Only the most recent of2 resultswithin the time period is included. Troponin I <0.01 0.00 - 0.03 ng/mL [facility] Specimen Blood Narrative Performed At Troponin I (TnI) levels must be interpreted [facility] in the context of the presenting symptoms and the clinical findings. Elevated TnI levels indicate myocardial damage, but are not specific for ischemic heart disease. Elevated TnI levels are seen in patients with other cardiac conditions (including myocarditis and congestive heart failure), and slight TnI elevations occur in patients with other conditions, including sepsis, renal failure, acidosis, acute neurological disease, and persistent tachyarrhythmia. Performing Organization Address City/State/Zipcode Phone Number [facility] [address] [place] [address] CENTER MR brain without IV contrast (04/30/2019 6:31 PM CDT) Specimen Narrative Performed At FINAL REPORT [employer] [facility] MR, BRAIN, WITHOUT CONTRAST INDICATION: Stroke, follow up Ischemic Stroke Evaluation Technique: MRI of the brain utilizing ax ial T1, T2, FLAIR, GRE, DWI, sagittal T1; and postgadolinium axial, s agittal, and coronal T1-weighted images. COMPARISON: November 20, 2017 FINDINGS: Brain parenchyma is normal in morphology . Midline structures are normally developed. No restricted diffus ion to suggest recent ischemic insult. No abnormal susceptibil ity. Remote bilateral cerebellar infarcts. Cerebellar tonsils are low-lying. Scattered T2/FLAIR hyperintense foci wit hin the periventricular and subcortical white matter are nonspecific , however, statistically represent chronic microvascular ischemic changes. No hydrocephalus. Orbits are within normal limits. Prior b ilateral lens surgery No obstructive paranasal sinus disease. Additional findings: None. IMPRESSION: No acute infarct Signed: Brenden Hernandez MD Report Verified Date/Time:04/30/2019 19:07:03 Reading Location: [facility] [address] [place] [address] Procedure Note Interface, External Ris In - 04/30/2019 7:09 PM CDT FINAL REPORT MR, BRAIN, WITHOUT CONTRAST INDICATION: Stroke, follow up Ischemic Stroke Evaluation Technique: MRI of the brain utilizing ax ial T1, T2, FLAIR, GRE, DWI, sagittal T1; and postgadolinium axial, s agittal, and coronal T1-weighted images. COMPARISON: November 20, 2017 FINDINGS: Brain parenchyma is normal in morphology . Midline structures are normally developed. No restricted diffus ion to suggest recent ischemic insult. No abnormal susceptibil ity. Remote bilateral cerebellar infarcts. Cerebellar tonsils are low-lying. Scattered T2/FLAIR hyperintense foci wit hin the periventricular and subcortical white matter are nonspecific , however, statistically represent chronic microvascular ischemic changes. No hydrocephalus. Orbits are within normal limits. Prior b ilateral lens surgery No obstructive paranasal sinus disease. Additional findings: None. IMPRESSION: No acute infarct Signed: Brenden Hernandez MD Report Verified Date/Time: 04/30/2019 1 9:07:03 Reading Location: [facility] [address] [place] [address] Room Performing Organization Address City/State/Zipcode Phone Number [employer] 2D Echo W/Doppler(CW/PW/Color) (04/30/2019 4:26 PM CDT) Ejection Fraction [facility] ECHO HEAR TLAB [employer] CPACS Specimen Narrative Performed At Transthoracic Echocardiography Report (T TE) [facility] ECHO HEARTLAB MKCK[facility]ON [facility] Dem[facility] Patient Name RADHA LARA Date of Study 04/30/2019 Silvio [id number] GenderFema Visit Number [id number] Room Number [id number] Number Date of Birth1935Referring Physician NATHAN ROBLES Age83 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 Clinical History AFIB;CAD;DM;HTN;PULM EMBOLISM;STROKE. HGB 10.6 HCT 32.1 % Height: 63 inches Weight: 60.78 kg (134 lbs) BSA: 1.63 m^2 BMI: 23.74 kg/m^2 HR: 68 bpm BP: 160/70 mmHg Summary The left ventricle is chamber size (by PSLAX dimension) is normal (female - LVIDd 3.8-5.2cm) . Mild concentric LV hypertrophy. All of the LV segments contract normally . Estimated LVEF by qualitative assessment is normal (>60%) . LA size is severely enlarged (>48 ml/m2 ) . Atrial fibrillation with controlled ventricular response. IV saline contrast injection was negative for a PFO (patent foramen ovale) at rest and post Valsalva . Mild aortic stenosis. Hccx-db-ckrkrgcy mitral regurgitation. Mild tricuspid regurgitation. Estimated peak systolic PA pressure is 65-70 mmHg . The estimated RA pressure by IVC dynamics 16-20mmHg . Previous Study In comparison with the prior exam 11/21/2017 the following changes are noted: PAP higher . Signature Findings Rhythm/BPAtrial fibrillation with controlled ventricular re sponse. Left Ventricle The left ventricle is chamber size (by PSLAX di mension) is normal (female - LVIDd 3.8-5 .2cm) . Mi ld concentric LV hypertrophy. All of the LV se gments contract normally . Estimated LVE F by qu alitative assessment is normal (>60%) . Degree of di astolic dysfunction (LAP assessment) is in conclusive due to mitral annular calcifi cation . Left AtriumLA size is severely enlarged (>48 ml/m2) . Right VentricleRV chamber size is mildly enlarged . Gl obal RV systolic function is normal . Right Atrium Right atrium dilated. Atrial SeptumIV saline contrast injection was negative for a PF O (p atent foramen ovale) at rest and post Va lsalva . Aortic Valve Mild AoV cusp thickening. Mi ld AoV cusp calcification. Mi ld aortic stenosis. Ao V cusp mobility is moderately decreased . Mitral Valve Mild MV leaflet thickening. Moderate mitral annular ca lcification. Lhzi-es-cfizwipb mitral re gurgitation. MV inflow gradients are inc reased in pa rt due to MAC. Tricuspid ValveMild tricuspid regurgitation. Es timated peak systolic PA pressure is 65- 70 mmHg . Pulmonic Valve Normal PV structure and function by limited views an d Doppler. AortaAortic root size (SInus of Valsalva diameter) i s no rmal . PericardiumNo evidence of pericardial effusion. IVC/SVC/PA/PV/PleuralThe estimated RA pressure by IVC dynamics 16-20mmHg . Chambers/Structures Left Atrium LA Dimension: 4.02 cmLA Area: 25.22 cm^2 LA Volume: 85.14 ml LA Vol. Index: 52 ml/m^2 Left Ventricle LVIDd: 4.76 cm LVEDV:78.39 ml LVIDs: 2.9 cm LVESV:24.4 ml LV Septum Diastolic: 1.12 cmLVEF 2D Cube: 67 % LV PW Diastolic: 1.12 cm LV FS: 39.1 % LVOT Diameter: 2.1 cm LVEF: 68.9 % Aorta Ao Root S of Sylvia.: 3.11 cm Doppler/Quantitative Measurements Mitral Valve MV Peak E-Wave: 1.75 m/sMV Peak A-Wave: 0.01 m/s P1/2t: 57.7 msecE/A Ratio: 219.24 Mean Velocity: 1 m/sPeak Gradient: 12.3 mmHg Mean Gradient: 5.11 mmHgDeceleration Time: 198.8 msec MV Area (PHT): 3.82 cm^2Area (continuity): 2.13 cm^2 MV VTI: 38.85 cm MV Cosme. Peak: 1.8 m/s Aortic Valve Peak Velocity: 2.53 m/sMean Velocity: 1.57 m/s Peak Gradient: 25.54 mmHgMean Gradient: 12.12 mmHg AV Area (continuity): 1.64 cm^2 AV VTI: 50.47 cm AV DVI: 0.47 LVOT Peak Velocity: 1.11 m/s Peak Gradient: 4.9 mmHg Mean Velocity: 0.69 m/s Mean Gradient: 2.34 mmHg LVOT Diameter: 2.1 cm LVOT VTI: 23.88 cm LVOT Area: 3.46 cm^2LVOT SV:82.67 ml LVOT CO: 5.62 l/min LVOT CI: 3.45 l/min/m^2 Procedure Note Interface, External Ris In - 05/01/2019 11:00 AM CDT Transthoracic Echocardiography Report (TTE) Demographics Patient Name RADHA LARA Date of Study 04/30/2019 Silvio Gender Female Visit Number [id number] Race Room Num [place] [address] Number Date of 1935 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 Clinical History AFIB;CAD;DM;HTN;PULM EMBOLISM;STROKE. HGB 10.6 HCT 32.1 % Height: 63 inches Weight: 60.78 kg (134 lbs) BSA: 1.63 m^2 BMI: 23.74 kg/m^2 HR: 68 bpm BP: 160/70 mmHg Summary The left ventricle is chamber size (by PSLAX dimension) is normal (female - LVIDd 3.8-5.2cm) . Mild concentric LV hypertrophy. All of the LV segments contract normally . Estimated LVEF by qualitative assessment is normal (>60%) . LA size is severely enlarged (>48 ml/m2 ) . Atrial fibrillation with controlled nelsy tricular response. IV saline contrast injection was negati ve for a PFO (patent foramen ovale) at rest and post Valsalva . Mild aortic stenosis. [id number]-[id number] mitral regurgitation. Mild tricuspid regurgitation. Estimated peak systolic PA pressure is 65-70 mmHg . The estimated RA pressure by IVC dynami cs 16-20mmHg . Previous Study In comparison with the prior exam 2017 the following changes are noted: PAP higher . Signature Findings Rhythm/BP Atrial fibrillat ion with controlled ventricular response. Left Ventricle The left ventric le is chamber size (by PSLAX dimension) is no rmal (female - LVIDd 3.8-5.2cm) . Mild concentric LV hypertrophy. All of the LV segments contrac t normally . Estimated LVEF by qualitative asse ssment is normal (>60%) . Degree of diastolic dysfun ction (LAP assessment) is inconclusive due to mitral annular calcification . Left Atrium LA size is sever sherly enlarged (>48 ml/m2) . Right Ventricle RV chamber size is mildly enlarged . Global RV systol ic function is normal . Right Atrium Right atrium dil ated. Atrial Septum IV saline contra st injection was negative for a PFO (patent foramen ovale) at rest and post Valsalva . Aortic Valve Mild AoV cusp th ickening. Mild AoV cusp ca lcification. Mild aortic sten osis. AoV cusp mobilit y is moderately decreased . Mitral Valve Mild MV leaflet thickening. Moderate mitral annular calcification. M dae-gw-itkipgpa mitral regurgitation. 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 Tricuspid Valve Mild tricuspid r egurgitation. Estimated peak s ystolic PA pressure is 65-70 mmHg . Pulmonic Valve Normal PV struct ure and function by limited views and Doppler. Aorta Aortic root size (SInus of Valsalva diameter) is normal . Pericardium No evidence of p ericardial effusion. IVC/SVC/PA/PV/Pleural The estimated RA pressure by IVC dynamics 16-20mmHg . Chambers/Structures Left Atrium LA Dimension: 4.02 cm LA Area: 25.22 cm^2 LA Volume: 85.14 ml LA Vol. Index: 52 ml/m^2 Left Ventricle LVIDd: 4.76 cm LVEDV:78.39 ml LVIDs: 2.9 cm LVESV:24.4 ml LV Septum Diastolic: 1.12 cm LVEF 2D Cube: 67 % LV PW Diastolic: 1.12 cm LV FS: 39.1 % LVOT Diameter: 2.1 cm LVEF: 68.9 % Aorta Ao Root S of Sylvia.: 3.11 cm Doppler/Quantitative Measurements Mitral Valve MV Peak E-Wave: 1.75 m/s MV Pe ak A-Wave: 0.01 m/s P1/2t: 57.7 msec E/A R atio: 219.24 Mean Velocity: 1 m/s Peak Gradient: 12.3 mmHg Mean Gradient: 5.11 mmHg Decel eration Time: 198.8 msec MV Area (PHT): 3.82 cm^2 Area (continuity): 2.13 cm^2 MV VT I: 38.85 cm MV Cosme. Peak: 1.8 m/s Aortic Valve Peak Velocity: 2.53 m/s Mean Velocity: 1.57 m/s Peak Gradient: 25.54 mmHg Mean Gradient: 12.12 mmHg AV Area (continuity): 1.64 cm^2 AV VTI: 50.47 cm AV DVI: 0.47 LVOT Peak Velocity: 1.11 m/s Pea k Gradient: 4.9 mmHg Mean Velocity: 0.69 m/s Mari n Gradient: 2.34 mmHg LVOT Diameter: 2.1 cm LVO T VTI: 23.88 cm LVOT Area: 3.46 cm^2 LVO T SV:82.67 ml LVOT CO: 5.62 l/min LVO T CI: 3.45 l/min/m^2 Performing Organization Address City/State/Zipcode Phone Number [facility] [employer] [facility] TSH/Free T4 If Indicated (04/30/2019 7:02 AM CDT) TSH 0.69 0.35 - 4.94 uIU/mL [facility] Specimen Blood Narrative Performed At Add on please to morning labs [facility] Add on to morning labs Performing Organization Address City/State/Zipcode Phone Number [facility] [address] [place] [address] CENTER Vitamin B12 (04/30/2019 7:02 AM CDT) Vitamin B12 654 213 - 816 pg/mL [facility] Specimen Blood Narrative Performed At Add on please to morning labs [facility] Add on to morning labs Performing Organization Address City/State/Zipcode Phone Number [facility] [address] [place] [address] CENTER CBC with platelet count + automated diff (04/30/2019 4:28 AM CDT) WBC 7.9 3.5 - 10.5 K/L [facility] RBC 3.40 (L) 3.93 - 5.22 M/L [facility] Hemoglobin 10.6 (L) 11.2 - 15.7 GM/DL [facility] Hematocrit 32.1 (L) 34.1 - 44.9 % [facility] MCV 94.4 79.4 - 94.[address] [facility] MCH 31.2 25.6 - 32.2 pg [facility] MCHC 33.0 32.2 - 35.5 GM/DL [facility] RDW 12.0 11.7 - 14.4 % [facility] Platelets 168 150 - 450 K/CU MM [facility] MPV 9.6 9.4 - 12.3 fL [facility] nRBC 0 0 - 0 /[address] [facility] % Neutros 57 % [facility] % Lymphs 28 % [facility] % Monos 12 % [facility] % Eos 2 % [facility] % Baso 0 % [facility] # Neutros 4.50 1.56 - 6.13 K/L [facility] # Lymphs 2.23 1.18 - 3.74 K/L [facility] # Monos 0.98 (H) 0.24 - 0.36 K/L [facility] # Eos 0.15 0.04 - 0.36 K/L [facility] # Baso 0.03 0.01 - 0.08 K/L [facility] Immature Granulocytes-Relative 0 0 - 1 % C [facility] Specimen Blood Performing Organization Address City/[facility]/Zipcode Phone Number [address] [address] [place] Hemoglobin A1c - Fasting (04/30/2019 4:28 AM CDT) Hemoglobin A1C 6.6 (H) 4.3 - 6.1 % [facility] Specimen Blood Narrative Performed At Fasting [facility] Performing Organization Address City/[facility] Phone Number [address] [address] [place] Fasting lipid panel (04/30/2019 4:28 AM CDT) Triglycerides 57Comment: Specimen slightly mg/dL [facility] Cholesterol 83Comment: Specimen slightly mg/dL [facility] HDL 37 mg/dL [facility] LDL Calculated 35 mg/dL [facility] Specimen Blood Narrative Performed At Triglyceride Reference Range: [facility] Low Risk <150 [id number] High Risk 200-499 Very High Risk>=500 Cholesterol Reference Range: Low Risk <200 [id number] High Risk>240 HDL Cholesterol Reference Range: Low Risk >=60 High Risk <40 LDL Cholesterol Reference Range: Optimal<100 Near [id number] [id number] [id number] Very High >=190 Fasting Performing Organization Address City/[facility]/Zipcode Phone Number [address] [address] CENTER after 03/04/2019 Insurance Payer Benefit Plan / Group Subscriber ID Type Phone A ddress [employer] xxxxxxxxx Maps Contracted Advance Directives For more information, please contact:[address] [phone] Code Status Date Activated Date Inactivated Comments Full Code 04/30/2019 1:44 AM 05/01/2019 6:46 PM This code status was determined by: Patient Partial Code 11/19/2017 10:17 PM 11/22/2017 6:56 PM This code status was determined by: Patient Drug Protocol After Arrest Occurs? No Mechanical Ventilation with Intubation? No Bag/Mask? No Internal/External Pacemaker? No Transfer to Critical Care? No Chest Compressions? No Defibrillation/Cardioversion? No
--- OUTSIDE RECORDS SUMMARY | 2020-03-04 17:09 | XMS REPORT | Continuity of Care Document ---
:1935 Author Organization [facility] t Address [address] [place] [address] Care Team Providers Name Role Phone Mir Mendenhall MD Attending Clinician Ayaan Bar MD Attending Clinician Tracy Robles Attending Clinician MIR MENDENHALL Attending Clinician Unavailable JAMAAL MEJIA Attending Clinician Unavailable MIR MENDENHALL Admitting Clinician Unavailable JAMAAL MEJIA Admitting Clinician Unavailable Payers Payer Name Policy Type Policy Number Effective Expiration Source Date Date TEXANPLUSTEXANPLUS O x[facility] [place] Problems Condition Condition Condition Status Onset Resolution Last Treating Co mments Source Name Details Category Date Date Treatment Clinician Date Seizure Seizure Problem Active [place] disorder Disorder 7-28 Family 00:00: Practic 00 e 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 3-23 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 00:00: Practic 00 e Diabetes Diabetes Problem Active [place] ge mellitus Mellitus 6-17 Family 00:00: Practic 00 e Hyperlipid Hyperlipid Problem Active [facility] emia emia 6-17 Family 00:00: Practic 00 e Essential Essential Problem Active [place] hypertensi Hypertensi 6-17 Fa [facility] on on 00:00: Practic 00 e Atrial Atrial Problem Active [place] fibrillati Fibrillati 617 Fa [place] on on 00:00: Practic 00 e Gastroesop Gastroesop Problem Active [facility] hageal hageal 617 Family reflux Reflux 00:00: Practic disease Disease 00 e Expressive Expressive Disease Active [facility] aphasia aphasia 11-19 [facility] 00 Center Essential Essential Disease Active [facility] hypertensi hypertensi 11-19 Cyndi kes - on on 00:00: Medical 00 Center Type 2 Type [address] [facility] diabetes diabetes 11-19 [facility] - mellitus mellitus 00:00: Medica l without without 00 Center complicati complicati on, on, without without long-term long-term current current use of use of insulin insulin Chronic Chronic Disease Active [facility] atrial atrial 11-19 [facility] - fibrillati fibrillati 00:00: Me dical on on Center Hyponatrem Hyponatrem Disease Active [facility] ia ia 11-19 [facility] - 00:[facility]: Medical 00 Center TIA TIA Disease Active [facility] (transient (transient 11-19 Cyndi kes - ischemic ischemic 00:00: Medica l attack) attack) 00 Center Type 2 Type [address] [facility] diabetes diabetes [facility] - Mem[facility] l [facility] Obstructiv Obstructiv Problem Active [facility] e sleep e sleep [facility] - apnea apnea Memoria l [facility] Overactive Overactive Problem Active [facility] bladder bladder [facility] - [facility] Hospital Hospital Problem Active [facility] discharge discharge Luke s - follow-up follow-up Vicente marky l [facility] Hyperlipid Hyperlipid Problem Active [facility] emia emia [facility] 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[facility] rosis rosis [facility] 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 [facility] - [facility] History of History of Problem Active [facility] TIA TIA [facility] - (transient (transient Me moria ischemic ischemic l attack) attack) [facility] Renal cyst Renal cyst Problem Active [facility] 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 [facility] - tract tract Memoria infection infection l [facility] 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 [facility] - carotid carotid Memoria artery artery l [facility] ent Clinics Other Other Problem Active [facility] speech speech [facility] - disturbanc disturbanc Me moria e e l [facility] ent [facility] Gastroesop Gastroesop Problem Active [facility] hageal hageal [facility] - reflux reflux Memoria disease, disease, l esophagiti esophagiti Ou tpati s presence s presence en t not not Clinics specified specified Hypertensi Hypertensi Problem Active [facility] on on [facility] - [facility] ent [facility] Obesity Obesity Problem Active [facility] Chronic Chronic Problem Active [facility] a-fib a-fib kes - Memoria l [facility] ent Clinics Abnormal Abnormal Problem Active [facility] mammogram mammogram Luke s - Memoria l [facility] ent [facility] Chronic Chronic Problem Active [facility] fatigue fatigue [facility] - [facility] ent [facility] Elevated Elevated Problem Active [facility] TSH TSH kes - Memoria l [facility] Clinics 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 depression Cyndi kes - Memoria l [facility] ent Clinics Stress at Stress at Problem Active [facility] home home [facility] Clinics Other Other Problem Active [facility] chronic chronic [facility] - pain pain Memoria l [facility] ent Clinics Mixed Mixed Problem Active [facility] stress and stress and Cyndi kes - urge urge Memoria urinary urinary l incontinen incontinen Ou tpati [facility] Clinics Acquired Acquired Diagnosis Active [facility] hypothyroi hypothyroi Cyndi kes - dism dism Memoria l [facility] ent [facility] Memory Memory Problem Active [facility] change change [facility] Clinics Seizure Seizure Problem Active [facility] disorder disorder [facility] Clinics Seasonal Seasonal Problem Active [facility] allergic allergic [facility] - rhinitis, rhinitis, Vicente marky unspecifie unspecifie l d trigger d trigger Outp at ent Clinics 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 [facility]ukes - multiple multiple Memori a joints, joints, l unspecifie unspecifie Ou tpati d d ent osteoarthr osteoarthr Cl inics itis type itis type Hyponatrem Hyponatrem Problem Active [facility] ia ia [facility] Clinics Weakness Weakness Diagnosis Active [facility] Clinics Allergies, Adverse Reactions, Alerts Allergy Allergy Status Severity Reaction(s) Onset Inactive Treating Comm ents Source Name Type Date Date Clinician Aspirin Propensi Active palpitati [facility] ty to 11-19 ons [facility] - adverse 00:00: Medical reaction 00 Center s Codeine Propensi Active Confusion [facility] ty to 11-19 [facility] - adverse 00:00: Medical reaction 00 Center s Iodinate Propensi Active vomiting [facility] d ty to 11-19 [facility] - Contrast adverse 00:00: Medical Media reaction 00 Center s Aspirin Allergy Active Mild to Tachycardia [place] to moderate Family substanc Practic e e Clonidin Allergy Active Mild to Tachycardia [facility] illage e to moderate Family substanc Practic e e Codeine Allergy Active Mild to Confusion Vill age to moderate Family substanc Practic e e Nitrofur Allergy Active Mild to Irregular [place] antoin to moderate heart rate Fami ly substanc Practic e e Zoloft Allergy Active Moderate Confusion Vill age to Family substanc Practic e e Zoloft Adverse Active Info Not [facility] Reaction Available [facility] Niacin Adverse Active Info Not [facility] Reaction Available [facility] Macrodan Adverse Active Info Not [facility] tin Reaction Available [facility] Lisinopr Adverse Active Info Not [facility] il Reaction Available [facility] Aspirin Adverse Active Info Not [facility] Reaction Available [facility] Nitrous Adverse Active Info Not [facility] oxide Reaction Available [facility] Iodine Adverse Active Info Not [facility] contrast Reaction Available [facility] - [facility] Vicodin Adverse Active Info Not [facility] Reaction Available [facility] Social History Social Habit Start Date Stop Date Quantity Comments Source Sex Assigned At [facility] Smoking Status Start Date Stop Date Source Never smoker [facility] Medications Ordered Filled Start Stop Current Ordering Indication Dosage Frequency Signature Comments Components Source Medication Medication Date Date Medication? Clinician (SIG) Name Name Sodium Sodium 2020-0 2020- No Na Britt [address] Chloride Chloride 5-11 03-02 [facility] - 00:00: 00:00 Memoria 00 :00 [facility] Yes Na Britt [address] [facility] Sodium Sodium 3-20 [facility] - 00:00: Memoria 00 [facility] clopidogrel 2018-07 Yes 75mg QD Take [address] [facility] (PLAVIX) 75 0-07 by mouth Luke s - mg tablet 00:32: daily. Medica l [address] [place] sertraline 2018-07 Yes 25mg QD Take [address] (ZOLOFT) 25 0-07 by mouth Luke s - MG tablet 00:32: daily. Medica l [address] [place] cranberry 2018-07 Yes 4200mg Q.5D Take 4,[address] conc-ascorb 0-07 mg by [facility] - ic acid 00:32: mouth 2 Medical (CRANBERRY 41 (two) Center CONCENTRATE times ) 140-100 daily. mg Cap Lactobac 2018-07 Yes 1{tbl} QD Take 1 [facility] 42-Bifid 0-07 tablet by [facility] - 8-colost-FO 00:32: mouth Medic al S 41 daily. [place] (PROBIOTIC PLUS COLOSTRUM) 30-500-50 mg PwPk multivit-mi 2018-07 Yes 1{tbl} QD Take [address] n-ferrous 0-07 tablet by [facility] - fumarate 00:32: mouth Medical (MULTI 41 daily. [place] VITAMIN) 9 mg iron/15 mL Liqd magnesium 2018-07 Yes 500mg QD Take [address] gluconate 0-07 mg by [facility]ukes - (MAGONATE) 00:25: mouth Medica l 27.5 mg 41 daily . [place] (500 mg) tablet irbesartan Yes 150mg QD Take [address] (AVAPRO) 7-28 mg by [facility]ukes - 150 MG 00:00: mouth Medical tablet 00 daily. [place] amLODIPine Yes 10mg QD Take [address] (NORVASC) 7-28 by mouth [facility] - 10 MG 00:00: daily. Medical tablet 00 [place] Estradiol Estradiol Yes Na Britt as [facility] 7-22 directed [facility] - 00:00: Memoria [facility] HydrALAZINE HydrALAZINE Yes Na Britt as [facility] HCl HCl 5-14 directed [facility] - 00:00: Memoria [facility] rosuvastati 2018-0 Yes 40mg QD Take [address] [facility] n (CRESTOR) 4-28 by mouth Luke s - 40 MG 22:09: daily. Medical tablet 45 [place] apixaban 2018-0 Yes 5mg Q.5D Take [address] (ELIQUIS) 5 4-28 by mouth 2 Cyndi kes - mg Tab 22:09: (two) Medical tablet 45 times Center daily. hydrALAZINE 2018-0 Yes 100mg [id number] Take [address] (APRESOLINE 4-28 [id number] mg by L ukes - ) 100 MG 22:09: 3D mouth 3 Medica l tablet 45 (three) Center times daily. metFORMIN 2018-0 Yes 500mg Take [address] [facility] (GLUCOPHAGE 4-28 mg by [facility] - ) 500 MG 22:09: mouth 2 Medica l tablet 45 (two) Center times daily with breakfast and dinner. omeprazole 2018-0 Yes 40mg QD Take [address] (PRILOSEC) 4-28 by mouth [facility] - 40 MG 22:09: daily. Medical capsule 45 [place] valsartan 2018-0 Yes 160mg QD Take [address] (DIOVAN) 4-28 mg by [facility]ukes - 160 MG 22:09: mouth Medical tablet 45 daily. [place] verapamil 2018-0 Yes 240mg QD Take [address] (VERELAN 4-28 mg by [facility] - PM) 240 MG 22:09: mouth Medica l 24 hr 45 nightly. [place] capsule cyanocobala 2018-0 Yes 1000ug QD Take 1,[address] min 4-28 mcg by LuWaluzi - (VITAMIN 22:09: mouth Medical B-12) 1000 45 daily. [place] MCG tablet cholecalcif 2018-0 Yes 1000U QD Take 1,[address] roly, 4-28 Units by LuWaluzi - vitamin D3, 22:09: mouth Medic al 1,000 unit 45 daily. [place] capsule carvedilol 2018-0 Yes 25mg Take [address] (COREG) 25 4-28 by mouth 2 Cristian es - MG tablet 22:09: (two) Medical 44 times Center daily with breakfast and dinner. amlodipine amlodipine No 1 Q1D amlodipine [place] 5 mg tablet 5 mg tablet 5 mg F amily Take 1 Take 1 tablet Practic tablet tablet Take 1 e every day every day tablet by oral by oral every day route. route. by oral route. carvedilol carvedilol No 1 BID carvedilol [facility] 25 mg 25 mg 25 mg Family tablet Take tablet Take tablet Practic 1 tablet 1 tablet Take 1 e twice a day twice a day tablet by oral by oral twice a route. route. day by oral route. clopidogrel clopidogrel No 1 Q1D clopidogre [facility] 75 mg 75 mg l 75 mg Family tablet Take tablet Take tablet Practic 1 tablet 1 tablet Take 1 e every day every day tablet by oral by oral every day route. route. by oral route. Crestor 40 Crestor 40 No 1 Q1D Crestor 40 [facility] mg tablet mg tablet mg tablet Family Take 1 Take 1 Take 1 Practic tablet tablet tablet e every day every day every day by oral by oral by oral route. route. route. Eliquis 5 Eliquis 5 No 1 BID Eliquis 5 [facility] mg tablet mg tablet mg tablet Family Take 1 Take 1 Take 1 Practic tablet tablet tablet e twice a day twice a day twice a by oral by oral day by route. route. oral route. hydralazine hydralazine No 1 TID hydralazin [facility] 100 mg 100 mg e 100 mg Family tablet Take tablet Take tablet Practic 1 tablet 3 1 tablet 3 Take 1 e times a day times a day tablet 3 by oral by oral times a route. route. day by oral route. irbesartan irbesartan No 1 Q1D irbesartan [facility] 150 mg 150 mg 150 mg Family tablet Take tablet Take tablet Practic 1 tablet 1 tablet Take 1 e every day every day tablet by oral by oral every day route. route. by oral route. metformin metformin No 1 BID metformin [facility] 500 mg 500 mg 500 mg Family tablet Take tablet Take tablet Practic 1 tablet 1 tablet Take 1 e twice a day twice a day tablet by oral by oral twice a route. route. day by oral route. omeprazole omeprazole No 1capsul Q1D omeprazole [facility] 40 mg 40 mg e(s) 40 mg Family capsule,del capsule,del capsule,de Practic ayed ayed layed e release release release Take 1 Take 1 Take 1 capsule capsule capsule every day every day every day by oral by oral by oral route. route. route. Vimpat 50 Vimpat 50 No 1 Q1D Vimpat 50 [place] mg tablet mg tablet mg tablet Family Take 1 Take 1 Take 1 Practic tablet tablet tablet e every day every day every day by oral by oral by oral route. route. route. Levetiracet Levetiracet Yes Na Britt [address] [facility] am am [facility] Cyanocobala Cyanocobala Yes Na Britt [address] [facility] min min [facility] Amlodipine Amlodipine Yes Na Britt [address] [facility] Besylate Besylate [facility] Trimethopri Trimethopri Yes Na Britt [address] [facility] m m [facility]ics Magnesium Magnesium Yes Na Britt not [facility] defined [facility] Rosuvastati Rosuvastati Yes Na Britt TAKE [address] [facility] n Calcium n Calcium TABLET BY [facility]ukes - MOUTH Memoria DAILY l [facility] Tylenol Tylenol Yes Na Britt not [facility] Arthritis Arthritis defined Cyndi kes - Pain Pain Memoria l [facility] Probiotic Probiotic Yes Na Britt not [facility] defined [facility] Cranberry Cranberry Yes Na Britt [address] [facility] Concentrate Concentrate with meals [facility] - [facility] Sertraline Sertraline Yes Na Britt [address] [facility] HCl HCl [facility] Vitamin E Vitamin E Yes Na Britt not [facility] defined [facility] Irbesartan Irbesartan Yes Na Britt [address] [facility] Omeprazole Omeprazole Yes Na Britt [address] [facility] ONCE A DAY [facility] Carvedilol Carvedilol Yes Na Britt as [facility] directed [facility] Omeprazole Omeprazole Yes Na Britt TAKE [address] [facility] CAPSULE BY [facility]ukes - MOUTH Memoria EVERY DAY l [facility] Metformin Metformin Yes Na Britt [address] [facility] HCl HCl with meals [facility] Multivitami Multivitami Yes Na Britt not [facility] n n defined [facility] Plavix Plavix Yes Na Britt [address] Coreg Coreg Yes Na Britt not [facility] defined [facility]ics Vitamin D3 Vitamin D3 Yes Na Britt [address] [facility] Methenamine Methenamine Yes Na Britt [address] [facility] Hippurate Hippurate [facility] Levothyroxi Levothyroxi Yes Na Britt [address] [facility] [facility] ne Sodium ne Sodium in the Cristian es - morning on Memoria an empty l stomach [facility] Clinics Crestor Crestor Yes Na Britt [address] ONCE A DAY [facility] Eliquis Eliquis Yes Na Britt [address] [facility]ics Vitamin Vitamin Yes Na Britt not [facility] B-12 B-12 defined [facility] - Memoria [facility] Metformin Metformin Yes Na Britt TAKE [address] [facility] [facility] HCl HCl TABLET BY [facility] - MOUTH Memoria TWICE l DAILY [facility] ent [facility] Vital Signs Vital Name Observation Time Observation Value Comments Source Height 2020-02-19 00:00:00 62 [in_i] [facility] Height 2019-10-16 00:00:00 62 [in_i] [facility] BMI (Body Mass Index) 2019-10-16 00:00:00 23.8 kg/m2 [facility] Body Weight 2019-10-16 00:00:00 130 [lb_av] [facility] Systolic blood 2019-05-01 15:00:00 159 mm[Hg] [facility] Diastolic blood 2019-05-01 15:00:00 60 mm[Hg] [facility] Heart rate 2019-05-01 15:00:00 68 /min [facility] Body temperature 2019-05-01 15:00:00 36.67 Monica [facility] Respiratory rate 2019-05-01 15:00:00 18 /min [facility] Oxygen saturation in 2019-05-01 15:00:00 96 /min [facility] Arterial blood by Medical Ce nter Pulse oximetry Body weight Measured 2019-05-01 09:00:00 59.149 kg [facility] BMI 2019-05-01 09:00:00 22.38 kg/m2 [facility] Procedures Procedure Date / Time Performing Clinician Source Performed REPORT OF PROCEDURE - 2019-05-02 13:30:41 Provider, Default [facility] ENDOSCOPY SCAN [facility] RHYTHM STRIP - SCAN 2019-05-02 13:30:39 Provider, Default [facility] ECHOCARDIOGRAM REPORT - 2019-05-01 21:20:54 Provider, Default [facility] CTA BRAIN 2019-05-01 10:12:[address] [facility] [address]/CTA CAROTID 2019-05-01 10:12:00 [facility] CBC (HEMOGRAM ONLY) 2019-05-01 04:23[facility] (7) 2019-05-01 04:23:00 Margaret [facility] TROPONIN I 2019-04-30 19:34:00 Yosvany [facility] MR BRAIN WITHOUT IV 2019-04-30 18:31:00 Yosvany [facility] Emergency Departmentalex [facility] 2D ECHO W/ DOPPLER 2019-04-30 16:26:22 [facility] (CW/PW/COLOR) [facility] TSH/FREE T4 IF INDICATED 2019-04-30 07:02:00 [facility] VITAMIN B12 2019-04-30 07:02:00 [facility] BASIC METABOLIC PANEL (7) 2019-04-30 04:28:00 [facility] 2019-04-30 04:28[facility] 2019-04-30 04:28:00 Yosvany [facility] TROPONIN I 2019-04-30 04:28:00 Yosvany [facility] CBC W/PLT COUNT & AUTO 2019-04-30 04:28:00 Yosvany [facility] Emergency Departmentalex [facility] Plan of Care Planned Activity Planned Date Details Comments Source Future Appointment 2020-08-24 00:00:00 [facility], [address]; [address], [place] [address] Encounters Start End Encounter Admission Attending Care Care Encounter Source Date/Time Date/Time Type Type Clinicians Facility Department ID 2020-02-19 2020-02-19 [place] - [id number] [facility] ill[place] 00:00:00 00:00:00 Richard Rodriguez Fam eliana aguilar, [employer] P[employer]: Medical - Practi c [id number] [email or web address] [email or web address], [address], [place] [address] , Ph. 2020-01-18 2020-01-18 [facility] [id number] 10:39:00 10:39:00 t [facility] l Medicine Outpati ent Clinics 2020-01-17 2020-01-17 [facility] [id number] [facility] 10:40:00 10:40:00 t [facility] Medicine l Medicine Outpati ent Clinics 2020-01-01 2020-01-01 [facility] [id number] 13:55:00 13:55:00 t [facility] l Medicine Outpati ent Clinics 2019-12-20 2019-12-20 [facility] [id number] 09:43:00 09:43:00 t [facility] l Medicine Outpati ent Clinics 2019-12-18 2019-12-18 [facility] [id number] 11:20:00 11:20:00 t [facility] l Medicine Outpati ent Clinics 2019-12-04 2019-12-04 [facility] [id number] 10:00:00 10:00:00 t Specialty/U Cyndi kes - Specialty rology [facility] a /Urology Clinic l Clinic Outpati ent Clinics 2019-12-03 2019-12-03 [facility] [id number] 11:31:00 11:31:00 t [facility]an[facility] l Medicine Outpati ent Clinics 2019-11-26 2019-11-26 [facility] [id number] 08:43:00 08:43:00 t [employer] s - Drive [facility] Medicine l Medicine Outpati ent Clinics 2019-11-16 2019-11-16 [facility] [id number] 08:35:00 08:35:00 t Specialty/U Cyndi kes - Specialty rology Memori a /Urology Clinic l Clinic Outpati ent Clinics 2019-11-10 2019-11-10 [facility] [id number] 14:05:00 14:05:00 t [facility] [address] [place] s - Road [facility] l Medicine Outpati ent Clinics 2019-10-17 2019-10-17 [facility] [id number] 14:55:00 14:55:00 t [employer] s - Drive [facility] Medicine Outpati ent Clinics 2019-10-16 2019-10-16 [facility] [place] - [id number] V illage 00:00:00 00:00:00 [facility] eliana aguilar [employer] P[employer]DLER: Medical - Practi c [id number] [email or web address] [facility], [address], [place] [address] , Ph. 2019-10-12 2019-10-12 [facility] [id number] 15:58:00 15:58:00 t [employer] s - Drive [facility] Medicine Outpati ent Clinics 2019-10-01 2019-10-01 [facility] [id number] 15:42:00 15:42:00 t [employer] s - Drive [facility] Medicine Outpati ent Clinics 2019-09-25 2019-09-25 [facility] [id number] 11:20:00 11:20:00 t [employer] s - Drive [facility] Medicine l Medicine Outpati ent Clinics 2019-09-18 2019-09-18 [facility] [id number] 11:15:00 11:15:00 t Specialty/U Cyndi kes - Specialty rology Memori a /Urology Clinic l Clinic Outpati ent Clinics 2019-09-14 2019-09-14 [facility] [id number] 11:32:00 11:32:00 t [employer] Medicine Outpati ent Clinics 2019-09-04 2019-09-04 [facility] [id number] 11:20:00 11:20:00 t [employer] Medicine Outpati ent Clinics 2019-09-04 2019-09-04 [facility] [place] [id number] [facility] 10:00:00 10:00:00 t Specialty/U Cyndi kes - Specialty rology Memori a /Urology Clinic l Clinic Outpati ent Clinics 2019-08-08 2019-08-08 [facility] [id number] 10:40:00 10:40:00 t Slanissue [facility] Outpati ent Clinics 2019-08-02 2019-08-02 [facility] [id number] 13:00:00 13:00:00 t Specialty/U Cyndi kes - Specialty rology Memori a /Urology Clinic l Clinic Outpati ent Clinics 2019-07-09 2019-07-09 [facility] [id number] [address] 14:00:00 14:00:00 t Slanissue [facility] Outpati ent Clinics 2019-05-29 2019-05-29 [facility] [id number] 11:20:00 11:20:00 t Slanissue [facility] Medicine Outpati ent Clinics 2019-05-15 2019-05-15 [facility] [id number] 10:15:00 10:15:00 t Specialty/U Cyndi kes - Specialty rology Memori a /Urology Clinic l Clinic Outpati ent Clinics 2019-04-24 2019-04-24 [facility] [id number] 10:40:00 10:40:00 t Slanissue [facility] Outpati ent Clinics 2019-04-09 2019-04-09 [facility] [id number] 13:20:00 13:20:00 t [place] [employer] Book s - Drive [facility] Medicine l Medicine Outpati ent Clinics 2019-03-24 2019-03-24 [facility] [place] [id number] 12:00:00 12:00:00 t Urgent Urgent Care L ukes - Care Clinic [facility] Clinic l Outpati ent Clinics 2019-03-15 2019-03-15 [facility] [place] [id number] 13:22:00 13:22:00 t Urgent Urgent Care L ukes - Care Clinic [facility] Clinic l Outpati ent Clinics 2019-03-13 2019-03-13 [facility] [place] [id number] 10:39:00 10:39:00 t [place] [employer] s - Drive [facility] l Medicine Outpati ent Clinics 2019-03-12 2019-03-12 [facility] [place] [id number] 10:30:00 10:30:00 t Urgent Urgent Care L ukes - Care Clinic [facility] Clinic l Outpati ent Clinics 2019-02-28 2019-02-28 [facility] [place] [id number] 13:00:00 13:00:00 t [place] [employer] s - Drive [facility] Medicine Outpati ent Clinics 2019-02-12 2019-02-12 [facility] [place] [id number] 10:15:00 10:15:00 t Specialty/U Cyndi kes - [facility] Clinics 2019-02-08 2019-02-08 [facility] [id number] 15:00:00 15:00:00 t [place] [employer] s - Drive [facility] Medicine Outpati ent Clinics 2019-02-08 2019-02-08 [facility] [id number] 08:42:00 08:42:00 t [place] [employer] s - Drive [facility] l Medicine Outpati ent Clinics 2019-02-06 2019-02-06 [facility] [id number] 09:40:00 09:40:00 t [place] [employer] s - Drive [facility] Medicine Outpati ent Clinics 2019-01-09 2019-01-09 [facility] [id number] 10:40:00 10:40:00 t [place] [employer] s - Drive [facility] Medicine Outpati ent Clinics 2019-01-03 2019-01-03 [facility] [id number] 13:07:00 13:07:00 t [place] [employer]iem[employer] s - Drive [facility] Medicine Outpati ent Clinics 2018-12-28 2018-12-28 [facility] [id number] 14:00:00 14:00:00 t [place] [employer]iem[employer] s - Drive [facility] Medicine Outpati ent Clinics 2018-09-14 2018-09-14 [facility] [id number] 09:26:00 09:26:00 t [place] [employer] Book s - Drive [facility] Medicine Outpati ent Clinics 2018-09-08 2018-09-08 [facility] [id number] 09:30:00 09:30:00 t [place] [employer] Book s - Drive [facility] Medicine Outpati ent Clinics 2018-08-07 2018-08-07 [facility] [id number] 08:45:00 08:45:00 t [place] [employer] Book s - Drive [facility] Medicine Outpati ent Clinics 2018-02-20 2018-02-20 [facility] [id number] 14:30:00 14:30:00 t [place] [employer] s - Drive [facility] Medicine Outpati ent Clinics 2018-02-03 2018-02-03 [facility] [id number] 09:00:00 09:00:00 t [place] [employer] s - Drive [facility] Medicine Outpati ent Clinics Results Test Description Test Time Test Comments Results Result Sour e Comments 2D Echo Ejection FractionSLEH WILMER Ramsey W/Doppler(CW/PW/C 8 ECHO [facility] senthil) 10:59:53 [facility] CPACSInterface, External Ris In - 05/01/2019 11:00 AM CDTTransthoracic Echocardiography Report (TTE) Demographics Patient Name JAMES ARGUETA Date of Study 04/30/2019 M Gender Female Visit Number [id number] Race Room Number 1461 Number Date of 1935 Referring Physician LEVAR ROBLES Age 83 year(s) [employer] Josefina Siddiqui [facility] Interpreting Physician MYA Cruz Procedure Type of Study TTE procedure:2DECHO W DOPPLER(CW/PW/COLOR) (Routine) Indications:Stroke .Clinical HistoryAFIB;CAD;DM;HT N;PULM EMBOLISM;STROKE.HGB 10.6HCT 32.1 %Height: 63 inches Weight: 60.78 kg (134 lbs) BSA: 1.63 m^2 BMI: 23.74 kg/m^2HR: 68 bpm BP: 160/70 mmHg Summary The left ventricle is chamber size (by PSLAX dimension) is normal (female - LVIDd 3.8-5.2cm) . Mild concentric LV hypertrophy. All of the LV segments contract normally . Estimated LVEF by qualitative assessment is normal (>60%) . LA size is severely enlarged (>48 ml/m2) . Atrial fibrillation with controlled ventricular response. IV saline contrast injection was negative for a PFO (patent foramen ovale) at rest and post Valsalva . Mild aortic stenosis. Rknf-sb-aigwvrnr mitral regurgitation. Mild tricuspid regurgitation. Estimated peak systolic PA pressure is 65-70 mmHg . The estimated RA pressure by IVC dynamics 16-20mmHg . Previous Study In comparison with the prior exam 11/21/2017 the following changes are noted: PAP higher . Signature - - Findings Rhythm/BP Atrial fibrillation with controlled ventricular response. Left Ventricle The left ventricle is chamber size (by PSLAX dimension) is normal (female - LVIDd 3.8-5.2cm) . Mild concentric LV hypertrophy. All of the LV segments contract normally . Estimated LVEF by qualitative assessment is normal (>60%) . Degree of diastolic dysfunction (LAP assessment) is inconclusive due to mitral annular calcification . Left Atrium LA size is severely enlarged (>48 ml/m2) . Right Ventricle RV chamber size is mildly enlarged . Global RV systolic function is normal . Right Atrium Right atrium dilated. Atrial Septum IV saline contrast injection was negative for a PFO (patent foramen ovale) at rest and post Valsalva . Aortic Valve Mild AoV cusp thickening. Mild AoV cusp calcification. Mild aortic stenosis. AoV cusp mobility is moderately decreased . Mitral Valve Mild MV leaflet thickening. Moderate mitral annular calcification. Ehuw-zy-tkrqjbcy mitral regurgitation. MV inflow gradients are increased in part due to MAC. Tricuspid Valve Mild tricuspid regurgitation. Estimated peak systolic PA pressure is 65-70 mmHg . Pulmonic Valve Normal PV structure and function by limited views and Doppler. Aorta Aortic root size (SInus of Valsalva diameter) is normal . Pericardium No evidence of pericardial effusion. IVC/SVC/PA/PV/Pleura l The estimated RA pressure by IVC dynamics [...] Valve MV Peak E-Wave: 1.75 m/s MV Peak A-Wave: 0.01 m/s P1/2t: 57.7 msec E/A Ratio: 219.24 Mean Velocity: 1 m/s Peak Gradient: 12.3 mmHg Mean Gradient: 5.11 mmHg Deceleration Time: 198.8 msec MV Area (PHT): 3.82 cm^2 Area (continuity): 2.13 cm^2 MV VTI: 38.85 cm [...] LVOT VTI: 23.88 cm LVOT Area: 3.46 cm^2 LVOT SV:82.67 ml LVOT CO: 5.62 l/min LVOT CI: 3.45 l/min/m^2 CT, CTANGIO 2018-10-0 Reason for FINAL REPORT PATIENT BRAIN 8 exam:->stroke ID: [id number] 10:58:00 CLINICAL HISTORY: TIA TECHNIQUE: Initially, noncontrast head [...] intact. There is no evidence for a [place] proximal branch vessel occlusion. Mild [...] artery stenosis, unchanged. No evidence for a [place] proximal branch vessel occlusion. Signed: Alexa Bolden MDReport Verified Date/Time: 05/01/2019 10:58:29 Reading Location: [facility] C0[facility] Neuro Reading Room , CAROTID, 2019-04-0 Reason for FINAL REPORT PATIENT ANGIO 8 exam:->eval ID: [id number] 10:58:00 for TIA CLINICAL HISTORY: TIA TECHNIQUE: Initially, noncontrast head [...] intact. There is no evidence for a [place] proximal branch vessel occlusion. Mild [...] artery stenosis, unchanged. No evidence for a [place] proximal branch vessel occlusion. Signed: Alexa Bolden MDReport Verified Date/Time: 05/01/2019 10:58:29 Reading Location: [facility] C013V Neuro Reading Room brain 2018--0 Interface, External [facility] Ris In - 05/01/2019 - Med ical 10:58:00 11:07 AM CDTFINAL Center REPORT CLINICAL HISTORY: TIA TECHNIQUE: Initially, noncontrast [...] intact. There is no evidence for a [place] proximal branch vessel occlusion. Mild [...] artery stenosis, unchanged. No evidence for a [place] proximal branch vessel occlusion. Signed: Alexa Bolden MDReport Verified Date/Time: 05/01/2019 10:58:29 Reading Location: [facility] C013 Neuro Reading Room carotid Interface, External [facility] 8 Ris In - 05/01/2019 - Med ical 10:58:00 11:07 AM [facility] REPORT CLINICAL HISTORY: TIA TECHNIQUE: Initially, noncontrast [...] intact. There is no evidence for a [place] proximal branch vessel occlusion. Mild [...] artery stenosis, unchanged. No evidence for a [place] proximal branch vessel occlusion. Signed: Alexa Bolden MDReport Verified Date/Time: 05/01/2019 10:58:29 Reading Location: [address] Neuro Reading Room Basic Metabolic Panel 2019-05-01 06:04:00 Test Item Value Reference Range Interpretation Comme nts Sodium (test code = 2951-2) 133 meq/L 136-145 L Potassium (test code = 2823-3) 4.3 meq/L 3.5-5.1 Chloride (test code = 2075-0) 104 meq/L 98-107 CO2 (test code = 8-9) 24 meq/L 22-29 BUN (test code = 3094-0) 8 mg/dL 7-21 Creatinine (test code = 0.63 mg/dL 0.57-1.25 2160-0) Glucose (test code = 2345-7) 105 mg/dL 70-105 Calcium (test code = 61106-6) 8.8 mg/dL 8.4-10.2 EGFR (test code = 02145-2) 90 mL/min/1.73 sq m ESTIMATED GFR IS NOT ACCURATE CRE ATININE CLEARANCE IN [place] EDICTING GLOMERULAR FILT RATION RATE. ESTIMATED GFR IS NOT APPLICABLE FOR DIALYSIS PATIEN TS. Lab Interpretation (test code Abnormal = 74744-9) [facility] [id number] 06:04:00 Test Item Value Reference Range Interpretation Comments SODIUM (BEAKER) 133 meq/L 136-145 L (test code = 381) POTASSIUM (BEAKER) 4.3 meq/L 3.5-5.1 (test code = 379) CHLORIDE (BEAKER) 104 meq/L 98-107 (test code = 382) CO2 (BEAKER) (test 24 meq/L 22-29 code = 355) BLOOD UREA NITROGEN 8 mg/dL 7-21 (BEAKER) (test code = 354) CREATININE (BEAKER) 0.63 mg/dL 0.57-1.25 (test code = 358) GLUCOSE RANDOM 105 mg/dL 70-105 (BEAKER) (test code = 652) CALCIUM (BEAKER) 8.8 mg/dL 8.4-10.2 (test code = 697) EGFR (BEAKER) (test 90 mL/min/1.73 ESTIMA OMAR GFR IS code = 1092) sq m NOT ACCURATE CREATININE CLEARANCE IN PREDICTING GLOMERULAR FILTRATION RATE . ESTIMATED GFR I S NOT APPLICABLE FOR DIALYSIS PATIEN TS. CBC (Hemogram only)2019-05-01 04:59:00 Test Item Value Reference Range Interpretation Comments WBC (test code = 6690-2) 7.4 3.5- 10.5 K/L RBC (test code = 789-8) 3.56 3.93- 5.22 M/L L MCHC (test code = 786-4) 33.3 32.2- 35.5 GM/DL Hematocrit (test code = 4544-3) 33.9 % 34.1-44.9 L MCV (test code = 787-2) 95.2 fL 79.4-94.8 H MCH (test code = 785-6) 31.7 pg 25.6-32.2 RDW (test code = 788-0) 12.0 % 11.7-14.4 Platelets (test code = 777-3) 170 150- 450 K/CU MM MPV (test code = 40661-2) 9.6 fL 9.4-12.3 nRBC (test code = 413) 0 0- 0 /100 WBC Lab Interpretation (test code = Abnormal 92507-9) [facility]2019-05-01 04:59:00 Test Item Value Reference Range Interpretation Comments WHITE BLOOD CELL COUNT (BEAKER) 7.4 K/ L 3.5-10.5 (test code = 775) RED BLOOD CELL COUNT (BEAKER) 3.56 M/ L 3.93-5.22 L (test code = 761) HEMOGLOBIN (BEAKER) (test code = 11.3 GM/DL 11.2-15.7 410) HEMATOCRIT (BEAKER) (test code = 33.9 % 34.1-44.9 L 411) MEAN CORPUSCULAR VOLUME (BEAKER) 95.2 fL 79.4-94.8 H (test code = 753) MEAN CORPUSCULAR HEMOGLOBIN 31.7 pg 25.6-32.2 (BEAKER) (test code = 751) MEAN CORPUSCULAR HEMOGLOBIN CONC 33.3 GM/DL 32.2-35.5 (BEAKER) (test code = 752) RED CELL DISTRIBUTION WIDTH 12.0 % 11.7-14.4 (BEAKER) (test code = 412) PLATELET COUNT (BEAKER) (test 170 K/CU MM 150-450 code = 756) MEAN PLATELET VOLUME (BEAKER) 9.6 fL 9.4-12.3 (test code = 754) NUCLEATED RED BLOOD CELLS 0 /100 WBC 0-0 (BEAKER) (test code = 413) Troponin [id number] 20:18:00 Test Item Value Reference Range Interpretation Comments Troponin I (test code = <0.01 0-0.03 71923-1) ALEX (test code = ALEX) Troponin I (TnI) levels must be interpreted [...] acidosis, acute neurological disease, and persistent tachyarrhythmia. Lab Interpretation (test Normal code = 47014-9) [facility] CenterTRADRIELNIN [id number] 20:18:00 Test Item Value Reference Range Interpretation Comments TROPONIN I (BEAKER) (test code = [...] neurological disease, and persistent tachyarrhythmia.MR, BRAIN, WITHOUT [id number] 19:07:00Reason for exam:->Ischemic Stroke EvaluationFINAL REPORT MR, [...] IMPRESSION: No acute infarct Signed: Brenden Hernandez MDRort Verified Date/Time: 04/30/2019 19:07:03 Reading Location: [address] Neuro Reading Room MR brain without IV [id number] 19:07:00Interface, External Ris In - 04/30/2019 7:09 PM CDTFINAL REPORT MR, BRAIN, WITHOUT CONTRAST INDICATION: Stroke, follow upIschemic Stroke Evaluation Technique: MRI of the brain utilizing axial T1, T2, FLAIR, GRE, DWI, sagittal T1; and postgadolinium axial, sagittal, and coronal T1-weighted images. COMPARISON: November 20, 2017 FINDINGS:Brain parenchyma is normal in morphology. Midline structures are normally developed. No restricted diffusion to suggest recent ischemic insult. Noabnormal susceptibility. Remote bilateral cerebellar infarcts. Cerebellar tonsils are low-lying. Scattered T2/FLAIR hyperintense foci within the periventricular and subcortical white matter are nonspecific, however, statistically represent chronic microvascular ischemic changes. No hydrocephalus. Orbits are within normal limits. Prior bilateral lens surgery No obstructive paranasal sinus disease. Additional findings: None. IMPRESSION: No acute infarct Signed: Brenden Hernandez Verified Date/Time: 04/30/2019 19:07:03 Reading Location: [facility] C013V Neuro Reading [facility] Center[facility] - [id number] 10:33:00 Test Item Value Reference Range Interpretation Comments Hemoglobin A1C (test code = 4548-4) 6.6 % 4.3-6.1 H ALEX (test code = ALEX) Fasting Lab Interpretation (test code = Abnormal 24116-7) [facility] CenterHEMOGLOBIN [id number] 10:33:00 Test Item Value Reference Range Interpretation Comments HEMOGLOBIN A1C (BEAKER) (test code = 6.6 % 4.3-6.1 H 368) FastingVitamin [id number] 09:00:00 Test Item Value Reference Range Interpretation Comments Vitamin B12 (test code = 654 pg/mL 839-766 8597-9) ALEX (test code = ALEX) Add on please to morning labsAdd on to morning labs Lab Interpretation (test Normal code = 89340-3) [facility] CenterTSH/Free T4 If [id number] 09:00:00 Test Item Value Reference Range Interpretation Comments TSH (test code = 18067-1) 0.69 0.35- 4.94 uIU/mL ALEX (test code = ALEX) Add on please to morning labsAdd on to morning labs Lab Interpretation (test Normal code = 99513-1) [facility] CenterVITAMIN [id number] 09:00:00 Test Item Value Reference Range Interpretation Comments VITAMIN B12 (BEAKER) (test code = 654 pg/mL 213-816 774) Add on please to morning labsAdd on to morning labsTSH/FREE T4 IF INDICATED 2019-04-30 09:00:00 Test Item Value Reference Range Interpretation Comments THYROID STIMULATING HORMONE 0.69 uIU/mL 0.35-4.94 (BEAKER) (test code = 772) Add on please to morning labsAdd on to morning labsFasting lipid [id number] 07:30:00 Test Item Value Reference Range Interpretation Comments Triglycerides (test 57 mg/dL Specimen code = 2571-8) slightly hemolyzed Cholesterol (test 83 mg/dL Specimen code = 2093-3) slightly hemolyzed HDL (test code = 37 mg/dL 2085-9) LDL Calculated (test 35 mg/dL code = 81060-0) ALEX (test code = Triglyceride ALEX) Reference Range: Low Risk <150 Borderline 150-199 High Risk 200-499 Very High Risk >=500 Cholesterol Reference Range: Low Risk <200 Borderline 200-239 High Risk >240 HDL Cholesterol Reference Range: Low Risk >=60 High Risk <40 LDL Cholesterol Reference Range: Optimal <100 Near Optimal 100-129 Borderline 130-159 High 160-189 Very High >=190 Fasting [facility] METABOLIC [id number] 07:30:00 Test Item Value Reference Range Interpretation Comments SODIUM (BEAKER) 131 meq/L 136-145 L (test code = 381) POTASSIUM (BEAKER) 4.2 meq/L 3.5-5.1 Specimen slightly (test code = 379) hemolyzed CHLORIDE (BEAKER) 99 meq/L 98-107 (test code = 382) CO2 (BEAKER) (test 23 meq/L 22-29 code = 355) BLOOD UREA NITROGEN 10 mg/dL 7-21 (BEAKER) (test code = 354) CREATININE (BEAKER) 0.67 mg/dL 0.57-1.25 Specimen slightly (test code = 358) hemolyzed GLUCOSE RANDOM 115 mg/dL 70-105 H (BEAKER) (test code = 652) CALCIUM (BEAKER) 8.8 mg/dL 8.4-10.2 (test code = 697) EGFR (BEAKER) (test 84 mL/min/1.73 ESTIMA OMAR GFR IS code = 1092) sq m NOT ACCURATE CREATININE CLEARANCE IN PREDICTING GLOMERULAR FILTRATION RATE . ESTIMATED GFR I S NOT APPLICABLE FOR DIALYSIS PATIEN TS. FastingLIPID [id number] 07:30:00 Test Item Value Reference Range Interpretation Comments TRIGLYCERIDES (BEAKER) 57 mg/dL Speci men slightly (test code = 540) hemolyzed CHOLESTEROL (BEAKER) 83 mg/dL Specime n slightly (test code = 631) hemolyzed HDL CHOLESTEROL (BEAKER) 37 mg/dL (test code = 976) LDL CHOLESTEROL 35 mg/dL CALCULATED (BEAKER) (test code = 633) Triglyceride Reference Range: Low Risk <150 Borderline 150-199 High Risk 200-499 Very High Risk >=500Cholesterol Reference Range: Low Risk <200 Borderline 200-239 High Risk >240HDL Cholesterol Reference Range: Low Risk >=60 High Risk <40LDL Cholesterol Reference Range: Optimal <100 Near Optimal 100-129 Borderline 130-159 High 160-189 Very High >=190 FastingTROPONIN [id number] 07:28:00 Test Item Value Reference Range Interpretation Comments TROPONIN I (CHINYEREAKER) (test code = 397) < ng/mL 0.00-0.03 [...] acidosis, acute neurological disease, and persistent tachyarrhythmia.FastingCBC with platelet count + automated [id number] 05:43:00 Test Item Value Reference Range Interpretation Comments WBC (test code = 6690-2) 7.9 3.5- 10.5 K/L RBC (test code = 789-8) 3.40 3.93- 5.22 M/L L MCHC (test code = 786-4) 33.0 32.2- 35.5 GM/DL L Hematocrit (test code = 4544-3) 32.1 % 34.1-44.9 L MCV (test code = 787-2) 94.4 fL 79.4-94.8 MCH (test code = 785-6) 31.2 pg 25.6-32.2 RDW (test code = 788-0) 12.0 % 11.7-14.4 Platelets (test code = 777-3) 168 150- 450 K/CU MM MPV (test code = 67115-6) 9.6 fL 9.4-12.3 nRBC (test code = 413) 0 0- 0 /100 WBC % Neutros (test code = 429) 57 % % Lymphs (test code = 430) 28 % % Monos (test code = 431) 12 % % Eos (test code = 432) 2 % % Baso (test code = 437) 0 % # Neutros (test code = 670) 4.50 1.56- 6.13 K/L # Lymphs (test code = 414) 2.23 1.18- 3.74 K/L # Monos (test code = 415) 0.98 0.24- 0.36 K/L H # Eos (test code = 416) 0.15 0.04- 0.36 K/L # Baso (test code = 417) 0.03 0.01- 0.08 K/L Immature Granulocytes-Relative 0 % 0-1 (test code = 2801) Lab Interpretation (test code = Abnormal 35653-6) [facility] W/PLT COUNT & AUTO [id number] 05:43:00 Test Item Value Reference Range Interpretation Comments WHITE BLOOD CELL COUNT (BEAKER) 7.9 K/ L 3.5-10.5 (test code = 775) RED BLOOD CELL COUNT (BEAKER) 3.40 M/ L 3.93-5.22 L (test code = 761) HEMOGLOBIN (BEAKER) (test code = 10.6 GM/DL 11.2-15.7 L 410) HEMATOCRIT (BEAKER) (test code = 32.1 % 34.1-44.9 L 411) MEAN CORPUSCULAR VOLUME (BEAKER) 94.4 fL 79.4-94.8 (test code = 753) MEAN CORPUSCULAR HEMOGLOBIN 31.2 pg 25.6-32.2 (BEAKER) (test code = 751) MEAN CORPUSCULAR HEMOGLOBIN CONC 33.0 GM/DL 32.2-35.5 (BEAKER) (test code = 752) RED CELL DISTRIBUTION WIDTH 12.0 % 11.7-14.4 (BEAKER) (test code = 412) PLATELET COUNT (BEAKER) (test 168 K/CU MM 150-450 code = 756) MEAN PLATELET VOLUME (BEAKER) 9.6 fL 9.4-12.3 (test code = 754) NUCLEATED RED BLOOD CELLS 0 /100 WBC 0-0 (BEAKER) (test code = 413) NEUTROPHILS RELATIVE PERCENT 57 % (BEAKER) (test code = 429) LYMPHOCYTES RELATIVE PERCENT 28 % (BEAKER) (test code = 430) MONOCYTES RELATIVE PERCENT 12 % (BEAKER) (test code = 431) EOSINOPHILS RELATIVE PERCENT 2 % (BEAKER) (test code = 432) BASOPHILS RELATIVE PERCENT 0 % (BEAKER) (test code = 437) NEUTROPHILS ABSOLUTE COUNT 4.50 K/ L 1.56-6.13 (BEAKER) (test code = 670) LYMPHOCYTES ABSOLUTE COUNT 2.23 K/ L 1.18-3.74 (BEAKER) (test code = 414) MONOCYTES ABSOLUTE COUNT (BEAKER) 0.98 K/ L 0.24-0.36 H (test code = 415) EOSINOPHILS ABSOLUTE COUNT 0.15 K/ L 0.04-0.36 (BEAKER) (test code = 416) BASOPHILS ABSOLUTE COUNT (BEAKER) 0.03 K/ L 0.01-0.08 (test code = 417) IMMATURE GRANULOCYTES-RELATIVE 0 % 0-1 PERCENT (BEAKER) (test code = 2801) NV, ANGIOGRAM, [id number] 11:37:00Reason for exam:->TIAsFINAL REPORT November 22, 2017 [...] guidance and strict sterile technique a 4 Yoruba femoral sheath was inserted into the right common femoral artery. Through the sheath a 4 Yoruba vertebral catheter was then advanced over the [...] demonstrates a critical supraclinoid ICA stenosis of lkpcigkcvhydt90%. There is delayed antegrade flow. The venous [...] MDReport Verified Date/Time: 11/22/2017 11:37:47 Reading Location: [facility] Y018 Neuro Angio Reading Room POCT- GLUCOSE [id number] 07:43:00 Test Item Value Reference Range Interpretation Comments POC-GLUCOSE METER 149 mg/dL 70-110 H TESTED AT [facility] 6720 (BEAKER) (test code = [place] 1538) [address] [id number] 06:46:00 Test Item Value Reference Range Interpretation Comments MAGNESIUM (BEAKER) (test code = 2.0 mg/dL 1.6-2.6 627) BASIC METABOLIC [id number] 06:46:00 Test Item Value Reference Range Interpretation Comments SODIUM (BEAKER) 133 meq/L 136-145 L (test code = 381) POTASSIUM (BEAKER) 4.4 meq/L 3.5-5.1 (test code = 379) CHLORIDE (BEAKER) 99 meq/L 98-107 (test code = 382) CO2 (BEAKER) (test 25 meq/L 22-29 code = 355) BLOOD UREA NITROGEN 11 mg/dL 7-21 (BEAKER) (test code = 354) CREATININE (BEAKER) 0.65 mg/dL 0.57-1.25 (test code = 358) GLUCOSE RANDOM 162 mg/dL 70-105 H (BEAKER) (test code = 652) CALCIUM (BEAKER) 9.5 mg/dL 8.4-10.2 (test code = 697) EGFR (BEAKER) (test 87 mL/min/1.73 ESTIMA OMAR GFR IS code = 1092) sq m NOT ACCURATE CREATININE CLEARANCE IN PREDICTING GLOMERULAR FILTRATION RATE . ESTIMATED GFR I S NOT APPLICABLE FOR DIALYSIS PATIEN TS. [id number] 06:33:00 Test Item Value Reference Range Interpretation Comments PROTIME (BEAKER) (test code = 15.5 seconds 11.7-14.7 H 759) INR (BEAKER) (test code = 370) 1.2 <=5.9 PARTIAL THROMBOPLASTIN TIME 35.9 seconds 22.5-36.0 (BEAKER) (test code = 760) RECOMMENDED COUMADIN/WARFARIN INR THERAPY RANGESSTANDARD DOSE: 2.0 - 3.0 Includes: PROPHYLAXIS forvenous thrombosis, systemic embolization; TREATMENT for venous thrombosis and/or pulmonary embolus.HIGH RISK: Target INR is 2.5-3.5 for patients with mechanical heart valves.POCT-GLUCOSE [id number] 06:22:00 Test Item Value Reference Range Interpretation Comments POC-GLUCOSE METER 161 mg/dL 70-110 H TESTED AT [place] [id number] ([facility]) (test code = [place] 1538) [address] POCT-GLUCOSE [id number] 02:08:00 Test Item Value Reference Range Interpretation Comments POC-GLUCOSE METER 182 mg/dL 70-110 H TESTED AT [facility] 6720 [facility] (test code = [place] 1538) [id number] POCT-GLUCOSE [id number] 19:30:00 Test Item Value Reference Range Interpretation Comments POC-GLUCOSE METER 146 mg/dL 70-110 H TESTED AT [facility] 67 ([facility] (test code = [place] 1538) [id number] CT, CAROTID, [id number] 14:54:00Please include aortaFINAL REPORT CT angiogram of [...] the left ICA terminus. There is also qmdx-hd-uxrysqpy multifocal narrowing of the right carotid siphon. [...] Mcdaniels Verified Date/Time: 11/21/2017 14:54:26 Reading Location: [facility] Radiology Reading Room [facility], [place] [id number] 14:54:00FINAL REPORT CT angiogram of the upper [...] the left ICA terminus. There is also yuyj-tn-mtlvpxqd multifocal narrowing of the right carotid siphon. [...] of the right carotid siphon. Signed: Sylvia Mcdanielseport Verified Date/Time: 11/21/2017 14:54:26 Reading Location: [facility] [place] Radiology Reading Room POCT-GLUCOSE [id number] 11:50:00 Test Item Value Reference Range Interpretation Comments POC-GLUCOSE METER 153 mg/dL 70-110 H TESTED AT [facility] 6720 (BEAKER) (test code = [facility] 1538) [id number] POCT-GLUCOSE [id number] 08:08:00 Test Item Value Reference Range Interpretation Comments POC-GLUCOSE METER 125 mg/dL 70-110 H TESTED AT [facility] 6720 (BEAKER) (test code = [facility] 1538) [id number] 06:43:00 Test Item Value Reference Range Interpretation Comments MAGNESIUM (BEAKER) (test code = 2.1 mg/dL 1.6-2.6 627) BASIC METABOLIC [id number] 06:43:00 Test Item Value Reference Range Interpretation Comments SODIUM (BEAKER) 136 meq/L 136-145 (test code = 381) POTASSIUM (BEAKER) 4.0 meq/L 3.5-5.1 (test code = 379) CHLORIDE (BEAKER) 101 meq/L 98-107 (test code = 382) CO2 (BEAKER) (test 27 meq/L 22-29 code = 355) BLOOD UREA NITROGEN 12 mg/dL 7-21 (BEAKER) (test code = 354) CREATININE (BEAKER) 0.68 mg/dL 0.57-1.25 (test code = 358) GLUCOSE RANDOM 122 mg/dL 70-105 H (BEAKER) (test code = 652) CALCIUM (BEAKER) 9.5 mg/dL 8.4-10.2 (test code = 697) EGFR (BEAKER) (test 83 mL/min/1.73 ESTIMA OMAR GFR IS code = 1092) sq m NOT ACCURATE CREATININE CLEARANCE IN PREDICTING GLOMERULAR FILTRATION RATE . ESTIMATED GFR I S NOT APPLICABLE FOR DIALYSIS PATIEN TS. TSH/FREE T4 IF [id number] 22:12:00 Test Item Value Reference Range Interpretation Comments THYROID STIMULATING HORMONE 4.66 uIU/mL 0.35-4.94 (BEAKER) (test code = 772) [id number] 21:54:00 Test Item Value Reference Range Interpretation Comments MAGNESIUM (BEAKER) (test code = 2.0 mg/dL 1.6-2.6 627) BASIC METABOLIC [id number] 21:54:00 Test Item Value Reference Range Interpretation Comments SODIUM (BEAKER) 134 meq/L 136-145 L (test code = 381) POTASSIUM (BEAKER) 4.1 meq/L 3.5-5.1 (test code = 379) CHLORIDE (BEAKER) 101 meq/L 98-107 (test code = 382) CO2 (BEAKER) (test 24 meq/L code = 355) BLOOD UREA NITROGEN 11 mg/dL 7-21 (BEAKER) (test code = 354) CREATININE (BEAKER) 0.65 mg/dL 0.57-1.25 (test code = 358) GLUCOSE RANDOM 126 mg/dL 70-105 H (BEAKER) (test code = 652) CALCIUM (BEAKER) 9.5 mg/dL 8.4-10.2 (test code = 697) EGFR (BEAKER) (test 87 mL/min/1.73 ESTIMA OMAR GFR IS code = 1092) sq m NOT ACCURATE CREATININE CLEARANCE IN PREDICTING GLOMERULAR FILTRATION RATE . ESTIMATED GFR I S NOT APPLICABLE FOR DIALYSIS PATIEN TS. LIPID [id number] 21:54:00 Test Item Value Reference Range Interpretation Comments TRIGLYCERIDES (BEAKER) (test code = 70 mg/dL 540) CHOLESTEROL (BEAKER) (test code = 101 mg/dL 631) HDL CHOLESTEROL (BEAKER) (test code 39 mg/dL = 976) LDL CHOLESTEROL CALCULATED (BEAKER) 48 mg/dL (test code = 633) Triglyceride Reference Range: Low Risk <150 Borderline 150-199 High Risk 200-499 Very High Risk >=500Cholesterol Reference Range: Low Risk <200 Borderline 200-239 High Risk >240HDL Cholesterol Reference Range: Low Risk >=60 High Risk <40LDL Cholesterol Reference Range: Optimal <100 Near Optimal 100-129 Borderline 130-159 High 160-189 Very High >=190POCT-GLUCOSE [id number] 21:35:00 Test Item Value Reference Range Interpretation Comments POC-GLUCOSE METER 128 mg/dL 70-110 H TESTED AT [facility] 67 ([facility]) (test code = [place] [facility] 1538) [id number] POCT-GLUCOSE [id number] 17:55:00 Test Item Value Reference Range Interpretation Comments POC-GLUCOSE METER 113 mg/dL 70-110 H TESTED AT [place] [address] ([facility]) (test code = [place] [facility] 1538) [id number] POCT-GLUCOSE [id number] 12:32:00 Test Item Value Reference Range Interpretation Comments POC-GLUCOSE METER 120 mg/dL 70-110 H TESTED AT [place] [address] ([facility]) (test code = [place] [facility] 1538) [id number] MR, MRA, BRAIN, WITHOUT [id number] 11:33:00Reason for exam:->Ischemic Stroke EvaluationFINAL REPORT MRA Head and Neck CLINICAL HISTORY: CVA TECHNIQUE: MRA of the head utilizing 3-D zhrf-ym-dqkovw technique, with 3-D reconstructions. MRA of the neck utilizing 2-D and 3-D svup-fl-nlchxu technique, with 3-D reconstructions. COMPARISON: None FINDINGS: [...] There is no other evidence for a [place] proximal branch vessel occlusion. There [...] right internal carotid artery siphon. Signed: Alexa Boldenort Verified Date/Time: 11/20/2017 11:33:14 Reading Location: [address] Neuro Reading Room MR, MRA, NECK, WITHOUT IV [id number] 11:33:00Reason for exam:->Ischemic Stroke EvaluationFINAL REPORT MRA Head and Neck CLINICAL HISTORY: CVA TECHNIQUE: MRA of the head utilizing 3-D sfgf-jr-jabuxj technique, with 3-D reconstructions. MRA of the neck utilizing 2- D and 3-D ybgw-qo-gslgmt technique, with 3-D reconstructions. COMPARISON: None FINDINGS: [...] There is no other evidence for a [place] proximal branch vessel occlusion. There [...] internal carotid artery siphon. Signed: Alexa Bolden Verified Date/Time: 11/20/2017 11:33:14 Reading Location: [address] Neuro Reading Room MR, BRAIN, WITHOUT [id number] 11:05:00Reason for exam:->Ischemic Stroke EvaluationFINAL REPORT MRI [...] Clinical correl ation is requested. Signed: Alexa Bolden MDReport Verified Date/Time: 11/20/2017 11:05:05 Reading Location: [address] Neuro Reading Room HEMOGLOBIN [id number] 09:08:00 Test Item Value Reference Range Interpretation Comments H[facility]GLOBIN A1C ([facility] (test code = 6.1 % 4.3-6.1 368) POCT-GLUCOSE [id number] 08:27:00 Test Item Value Reference Range Interpretation Comments POC-GLUCOSE METER 125 mg/dL 70-110 H TESTED AT [facility] 6720 ([facility]) (test code = [place] 1538) [address] TSH/FREE T4 IF [id number] 07:47:00 Test Item Value Reference Range Interpretation Comments THYROID STIMULATING HORMONE 5.97 uIU/mL 0.35-4.94 H ([facility]) (test code = 772) VITAMIN [id number] 07:44:00 Test Item Value Reference Range Interpretation Comments VITAMIN B12 (BEAKER) (test code = 857 pg/mL 213-816 H 774) CBC W/PLT COUNT & AUTO [id number] 06:47:00 Test Item Value Reference Range Interpretation Comments WHITE BLOOD CELL COUNT (BEAKER) 8.3 K/ L 3.5-10.5 (test code = 775) RED BLOOD CELL COUNT (BEAKER) 4.11 M/ L 3.93-5.22 (test code = 761) HEMOGLOBIN (BEAKER) (test code = 13.4 GM/DL 11.2-15.7 410) HEMATOCRIT (BEAKER) (test code = 39.7 % 34.1-44.9 411) MEAN CORPUSCULAR VOLUME (BEAKER) 96.6 fL 79.4-94.8 H (test code = 753) MEAN CORPUSCULAR HEMOGLOBIN 32.6 pg 25.6-32.2 H (BEAKER) (test code = 751) MEAN CORPUSCULAR HEMOGLOBIN CONC 33.8 GM/DL 32.2-35.5 (BEAKER) (test code = 752) RED CELL DISTRIBUTION WIDTH 12.1 % 11.7-14.4 (BEAKER) (test code = 412) PLATELET COUNT (BEAKER) (test 209 K/CU MM 150-450 code = 756) MEAN PLATELET VOLUME (BEAKER) 9.7 fL 9.4-12.3 (test code = 754) NUCLEATED RED BLOOD CELLS 0 /100 WBC 0-0 (BEAKER) (test code = 413) NEUTROPHILS RELATIVE PERCENT 49 % (BEAKER) (test code = 429) LYMPHOCYTES RELATIVE PERCENT 35 % (BEAKER) (test code = 430) MONOCYTES RELATIVE PERCENT 12 % (BEAKER) (test code = 431) EOSINOPHILS RELATIVE PERCENT 4 % (BEAKER) (test code = 432) BASOPHILS RELATIVE PERCENT 1 % (BEAKER) (test code = 437) NEUTROPHILS ABSOLUTE COUNT 4.02 K/ L 1.56-6.13 (BEAKER) (test code = 670) LYMPHOCYTES ABSOLUTE COUNT 2.89 K/ L 1.18-3.74 (BEAKER) (test code = 414) MONOCYTES ABSOLUTE COUNT (BEAKER) 0.95 K/ L 0.24-0.36 H (test code = 415) EOSINOPHILS ABSOLUTE COUNT 0.35 K/ L 0.04-0.36 ([facility]) (test code = 416) BASOPHILS ABSOLUTE COUNT ([facility]) 0.04 K/ L 0.01-0.08 (test code = 417) IMMATURE GRANULOCYTES-RELATIVE 0 % 0-1 PERCENT ([facility]) (test code = 2801) POCT-GLUCOSE [id number] 22:09:00 Test Item Value Reference Range Interpretation Comments POC-GLUCOSE METER 130 mg/dL 70-110 H TESTED AT [facility] 0841 ([facility]) (test code = [place] 1538) [id number]
--- OUTSIDE RECORDS SUMMARY | 2020-03-04 17:09 | XMS REPORT ---
:1935 Author Organization eClinicalWorks Care Team Providers Name Role Phone Britt, Na Provider Role Unavailable Allergies No Known Allergies Problems Problem Type Condition Code Onset Dates Condition Statu s Assessment Low sodium levels E87.1 Active Problem Chronic a-fib I48.2 Active Problem Overactive bladder N32.81 Active Problem Obstructive sleep apnea G47.33 Acti ve Problem GERD (gastroesophageal reflux K21.9 Active disease) Problem Obesity E66.9 Active Problem Chronic fatigue R53.82 Active Problem Mild depression F32.0 Active Problem Hypertension I10 Active Problem Elevated TSH R79.89 Active Problem Memory change R41.3 Active Problem Stress at home F43.9 Active Problem Osteoarthritis of multiple joints, M15.9 Active unspecified osteoarthritis type Problem Seasonal allergic rhinitis, J30.2 Active unspecified trigger Problem Abnormal mammogram R92.8 Active Problem Hyperlipidemia E78.5 Active Problem Gastroesophageal reflux disease, K21.9 Active esophagitis presence not specified Problem Allergic rhinitis J30.9 Active Problem Mixed stress and urge urinary N39.46 Active incontinence Problem Other chronic pain G89.29 Active Problem Seizure disorder G40.909 Active Problem Acquired hypothyroidism E03.9 Acti ve Problem 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 Active Problem Stenosis of left carotid artery I65.22 Active Problem Type 2 diabetes E11.9 Active Problem Recurrent urinary tract infection N39.0 Active Problem Hospital discharge follow-up Z09 Active Problem Atherosclerosis I70.90 Active Problem Other speech disturbance R47.89 Act marty Problem History of TIA (transient ischemic Z86.73 Active attack) Medications Medication Code Code Instructions Start End Status Dosage System Date Date Sodium Chloride [facility] [address]-97 1000 MG Orally December 02Feb Act marty 2 tablets every 6 hours 2020 09, am, then 1 2019 tablet Vitamin D3 ND 04144258578 1000 UNIT Active 1 capsu le Orally Once a day Rosuvastatin ND 57248111709 40 Active TAKE 1 Calcium TABLET BY MOUTH DAILY Vitamin E ND 37858517821 400 UNIT Orally Active no t defined Omeprazole ND 66018535748 40 Active TAKE 1 CAPSULE BY MOUTH EVERY DAY Irbesartan [facility] 45298861922 150 MG Orally Active 1 t ablet Once a day HydrALAZINE HCl [facility] 42394162373 100 MG Orally Active 1 tablet Three times a with food day Omeprazole [facility] 81191887429 40 MG orally Active 1 EA CH daily in AM ONCE A DAY Metformin HCl [facility] 93270393975 500 MG Orally Active 1 tablet Twice a day with meals Vitamin B-[address] [facility] [address] Active not defined Cyanocobalamin [facility] [address]-67 1000 MCG/15ML Activ e 15 ml Orally Once a day Tylenol Arthritis ND 0 Active not Pain defined Coreg [facility] 99723772078 25 MG Orally Active not defined Carvedilol [facility] 73808701988 25 MG Orally Active as directed Cranberry [facility] [address] 425 MG Orally Active 1 ca psule Concentrate with meals Trimethoprim [facility] 50657119797 100 MG Orally Active 1 tablet Once a day Metformin HCl [facility] 25559282035 500 Active TAKE 1 TABLET BY MOUTH TWICE DAILY Probiotic [facility] 24178059459 - Orally Active not defined HydrALAZINE HCl [facility] 45459775850 100 MG Orally December 05, Active as Three times a 2017 directed day Amlodipine [facility] 44795954887 10 MG Orally Active 1 ta blet Besylate Once a day Multivitamin [facility] [address] Active not defined Magnesium [facility] 84600416174 500 MG Orally Active not defined Levothyroxine [facility] 73609935030 125 MCG Orally Active 1 tablet Sodium Once a day in the morning on an empty stomach Methenamine [facility] 17124513868 1 GM Orally Active 1 ta blet Hippurate Twice a day Crestor [facility] 51345759924 40 MG Active 1 EACH ONCE A DAY Sertraline HCl [facility] 98576266235 25 MG Orally Active 1 tablet Once a day Eliquis [facility] 31332549750 5 MG Orally Active 1 tablet twice a day Levetiracetam [facility] 92281435457 250 MG Orally Active 1 tablet every 12 hrs Estradiol [facility] 44176428346 0.1 MG/GM January Active as Vaginal Two 22, directed times a Week [address] [facility] 49347482516 75 MG Orally Active 1 table t Once a day Montelukast [facility] 88359347361 10 MG Orally September Active 1 t ablet Sodium Once a day 2019 Results No Known Results Summary Purpose eClinicalWorks Submission
--- OUTSIDE RECORDS SUMMARY | 2020-03-04 17:09 | XMS REPORT ---
[...] Code Onset Dates Condition Statu s Assessment Hypertension I10 Active Assessment Acquired hypothyroidism E03.9 Acti ve Assessment Hospital discharge follow-up Z09 Active Assessment Hyponatremia E87.1 Active Problem Chronic a-fib I48.2 Active [...] Active Problem Acquired hypothyroidism E03.9 Acti ve Assessment Weakness R53.1 Active Problem 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 Active Assessment Nausea R11.0 Active Problem Stenosis of left carotid artery I65.22 Active Assessment Gastroesophageal reflux disease, K21.9 Active esophagitis presence not specified Problem Type 2 diabetes E11.9 Active Assessment Seasonal allergic rhinitis, J30.2 Active unspecified trigger Problem Recurrent urinary tract infection N39.0 Active Assessment Positive colorectal cancer R19.5 A ctive screening using Cologuard test Problem Hospital discharge follow-up Z09 Active Assessment Stress at home F43.9 Active Problem Atherosclerosis I70.90 Active Problem Other speech disturbance R47.89 Act marty Problem History of TIA (transient ischemic Z86.73 Active attack) Medications Medication Code Code Instructions Start End Status Dosage System Date Date HydrALAZINE HCl [facility] 93587284379 100 MG Orally December 05, Active as Three times a 2017 directed day Omeprazole [facility] 40487846560 40 MG orally Active 1 EA CH daily in AM ONCE A DAY Omeprazole [facility] 24657374261 40 Active TAKE 1 CAPSULE BY MOUTH EVERY DAY Tylenol Arthritis ND 0 Active not Pain defined Rosuvastatin [facility] 45629200120 40 Active TAKE 1 Calcium TABLET BY MOUTH DAILY Amlodipine [facility] 61192235725 10 MG Orally Active 1 ta blet Besylate Once a day Irbesartan [facility] 71161623108 150 MG Orally Active 1 t ablet Once a day Carvedilol [facility] 95045525229 25 MG Orally Active as directed Montelukast [facility] 38380239143 10 MG Orally September Active 1 t ablet Sodium Once a day [address] [facility] 10379042778 125 MCG Orally Active 1 tablet Sodium Once a day in the morning on an empty stomach HydrALAZINE HCl [facility] 38007256981 100 MG Orally Active 1 tablet Three times a with food day Magnesium [facility] 35211830771 500 MG Orally Active not defined Coreg [facility] 75699955180 25 MG Orally Active not defined Trimethoprim [facility] 28438242173 100 MG Orally Active 1 tablet Once a day Methenamine [facility] 44750720710 1 GM Orally Active 1 ta blet Hippurate Twice a day Eliquis [facility] 31781991565 5 MG Orally Active 1 tablet twice a day Crestor [facility] 99855620345 40 MG Active 1 EACH ONCE A DAY Plavix [facility] 36135301343 75 MG Orally Active 1 table t Once a day Vitamin D3 [facility] 99337917769 1000 UNIT Active 1 capsu le Orally Once a day Metformin HCl [facility] 28353415516 500 Active TAKE 1 TABLET BY MOUTH TWICE DAILY Levetiracetam [facility] 18187597847 250 MG Orally Active 1 tablet every [address] [facility] [address]-70 1000 MCG/15ML Activ e 15 ml Orally Once a day Sertraline HCl [facility] 90050562149 25 MG Orally Active 1 tablet Once a day Vitamin E [facility] 53038186575 400 UNIT Orally Active no t defined Vitamin B-[address] [facility] [address] Active not defined Cranberry [facility] [address] 425 MG Orally Active 1 ca psule Concentrate with meals Estradiol [facility] 05655403381 0.1 MG/GM January Active as Vaginal Two 22, directed times a Week [address] [facility] 02046011818 500 MG Orally Active 1 tablet Twice a day with meals Multivitamin [facility] [address] Active not defined Probiotic [facility] 68900320303 - Orally Active not defined Sodium Chloride [facility] [address]-29 1000 MG Orally December 02Feb Act marty 1 tablet every 6 hours 2019 Results No Known Results Summary Purpose eClinicalWorks Submission
--- OUTSIDE RECORDS SUMMARY | 2020-03-04 17:09 | XMS REPORT ---
:1935 Author Organization eClinicalWorks Care Team Providers Name Role Phone Britt, Na Provider Role Unavailable Allergies No Known Allergies Problems Problem Type Condition Code Onset Dates Condition Statu s Assessment GERD (gastroesophageal reflux K21.9 Active disease) Problem Chronic a-fib I48.2 Active Problem Overactive [...] Start End Status Dosage System Date Date Irbesartan ND 40751413995 150 MG Orally Active 1 t ablet Once a day Coreg ND 32328947350 25 MG Orally Active not defined Omeprazole ND 84331311556 40 Active TAKE 1 CAPSULE BY MOUTH EVERY DAY Levetiracetam ND 19103952934 250 MG Orally Active 1 tablet every 12 hrs HydrALAZINE HCl ND 36736534887 100 MG Orally December 05, Active as Three times a 2018 directed day Estradiol [facility] 46508890965 0.1 MG/GM January Active as Vaginal Two 22, directed times a Week 2018 Plavix [facility] 43532564848 75 MG Orally Active 1 table t Once a day HydrALAZINE HCl ND 68918535924 100 MG Orally Active 1 tablet Three times a with food day Methenamine [facility] 01709101052 1 GM Orally Active 1 ta blet Hippurate Twice a day Sodium Chloride [facility] [address]-14 1000 MG Orally December 02Feb Act marty 1 tablet every 6 hours 2019 Eliquis [facility] 08926524250 5 MG Orally Active 1 tablet twice a day Crestor [facility] 66520155143 40 MG Active 1 EACH ONCE A DAY Vitamin B-12 [facility] 29[address]21 Active not defined Levothyroxine ND 86246429128 125 MCG Orally Active 1 tablet Sodium Once a day in the morning on an empty stomach Vitamin E [facility] 40683663114 400 UNIT Active not Orally defined Amlodipine [facility] 60544758567 10 MG Orally Active 1 ta blet Besylate Once a day Metformin HCl [facility] 07064241340 500 Active TAKE 1 TABLET BY MOUTH TWICE DAILY Sertraline HCl [facility] 53669500698 25 MG Orally Active 1 tablet Once a day Multivitamin [facility] 08[address]-93863 Active not defined Cranberry [facility] 459[address] 425 MG Orally Active 1 ca psule Concentrate with meals Tylenol Arthritis ND 0 Active not Pain defined Cyanocobalamin [facility] [address]-23 1000 MCG/15ML Activ e 15 ml Orally Once a day Probiotic [facility] 74729954610 - Orally Active not defined Rosuvastatin [facility] 09340479604 40 Active TAKE 1 Calcium TABLET BY MOUTH DAILY Montelukast ND 59429141565 10 MG Orally September Active 1 t ablet Sodium Once a day 2019 Magnesium ND 74759337279 500 MG Orally Active not defined Pantoprazole [facility] 32247785124 40 MG Orally December 04, Active 1 tablet Sodium Once a day 2019 Metformin HCl ND 73119204192 500 MG Orally Active 1 tablet Twice a day with meals Vitamin D3 [facility] 16527162311 1000 UNIT Active 1 capsu le Orally Once a day Trimethoprim ND 85203905904 100 MG Orally Active 1 tablet Once a day Omeprazole [facility] 86724553267 40 MG orally Inactive 1 E [facility] daily in AM ONCE A DAY Carvedilol [facility] 16309757214 25 MG Orally Active as directed Results No Known Results Summary Purpose eClinicalWorks Submission
--- OUTSIDE RECORDS SUMMARY | 2020-03-04 17:09 | XMS REPORT ---
[...] TIA (transient ischemic Z86.73 Active attack) Medications No Known Medications Results No Known Results Summary Purpose eClinicalWorks Submission
--- OUTSIDE RECORDS SUMMARY | 2020-03-04 17:10 | XMS REPORT | Encounter Summary ---
:1935 Author Care Team Providers Name Role Phone Dr. Cher Kwon Primary Care Provider Unavailable Na Balwinder CARIAS Primary Care Provider [phone] Reason for Visit Hyperlipidemia; Gastroesophageal reflux disease; Atrial fibrillation; Congestive heart failure; Telemedicine Visit Instructions 1. Congestive heart failure 2. Atrial fibrillation 3. Gastroesophageal reflux disea se 4. Hyperlipidemia high cholesterol: care ins tructions 5. Seizure disorder Vimpat 50 mg tablet Discussion Note Patient denies any acute issues at this time. Patient report she is able to reach her pcp as needed. Patient encoura ged to wash her hands frequently wear mask when in public. Plan of Care Reminders Provider Appointments Telemedicine on or around [facility] 08/24/2020 LIANNE Garcia Lab None recorded. Referral None recorded. Procedures [...] tablet twice a day by oral route. hydralazine 100 mg tablet Take 1 tablet 3 times a day by oral route. irbesartan 150 mg tablet Take 1 tablet every day by oral route. metformin 500 mg tablet Take 1 tablet twice a day by oral route. omeprazole 40 mg capsule,delayed release Take 1 capsule every day by oral route. Vimpat 50 mg tablet Take 1 tablet every day by oral route. Medications Administered None recorded. Vitals Height 5 ft 2 in Results Lab Results None recorded. Allergies Code Code System Name Reaction Severity Status Onset 1191 RxNorm Aspirin Tachycardia Mild to Active Moderate 2599 RxNorm Clonidine Tachycardia Mild to Active Moderate 2670 RxNorm Codeine Confusion Mild to Active Moderate 7454 RxNorm Nitrofurantoin Irregular Heart Mild to Active Rate Moderate 70258 RxNorm Zoloft Confusion Moderate Active Problems Name Status Onset Date Source Diabetes Mellitus Active 01/08/2019 Hyperlipidemia Active 01/08/2019 Essential Hypertension Active 01/08/2019 Atrial Fibrillation Active 01/08/2019 Gastroesophageal Reflux Disease Active 01/08/2019 Congestive Heart Failure Active 10/15/2019 Seizure Disorder Active 02/19/2020 Procedures None recorded. Vaccine List None recorded. Social History Tobacco Smoking Status Never Smoker Past Encounters 02/19/2020 Congestive Heart Failure; Atrial Fibrill ation; Gastroesophageal Reflux Disease; Hyperlipidemia; Seizure Disorder Belle Garcia, FELT COVERER: [address] [facility], [address], [place] [address], Ph. History of Present Illness HTN Reported [...] palpi tations, no associated dizziness, no edema Note: I confirm that I received verbal consent from the patient for the virtual visit.
This telemedicine encounter was performed using live {{video and audio|audio only because either patient did not have technology or unable to connect due to technical problems*}}.
<strong>(for a udio only)</strong> Total time spent with patient: {{35#| }} minutes.<div>[facility] ( BREANNA: __Belle Garcia ) reviewed the Virtual Care consent form verbally withpatient. Patient {{did*|did not}} have questions. Any and all patient questions were addressed. Patient consented to health care services provided via Virtual Care. Patient was directed to the [facility] website to review the form in greater detail. Patient was informed that a physical copy of the consent would be mailed to his/her home. Patient confirmed that, upon receipt of the consent, that he/she will sign and return the form in the pre-addressed and stamped envelope.</div> Review of Systems Comprehensive General Adult ROS [...] on exertion, no shortness of breath when [place], no shortness of breath when lying down, no palpitations, no known heart murmur, no lightheadedness Respiratory: Respiratory: no cough, no wh eezing, [...] no arthralgias/joint pain, no b ack pain, no swelling in the extremities Integumentary: Skin: no [...] hives, no freque nt sneezing Physical Exam Telemedicine/Virtual Visit Reported By: Patient Constitutional: Ambulation: ambulating chelle lly Psychiatric: Insight: good judgement. Men tish Status: active and alert, normal mood, normal affect. Orienta tion: to time, to place, to person. Memory: recent memory normal"
--- OUTSIDE RECORDS SUMMARY | 2020-03-04 17:10 | XMS REPORT ---
[...] Code Onset Dates Condition Statu s Assessment Seizure disorder G40.909 Active Assessment Hypertension I10 Active Assessment Hyponatremia E87.1 Active Problem Recurrent urinary tract infection N39.0 Active Problem 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 Active Problem Chronic a-fib I48.2 Active Problem Overactive bladder N32.81 Active Problem Obstructive sleep apnea G47.33 Acti ve Problem GERD (gastroesophageal reflux K21.9 Active disease) Problem Elevated TSH R79.89 Active Problem Mild depression F32.0 Active Problem Obesity E66.9 Active Problem Stress at home F43.9 Active Problem Other chronic pain G89.29 Active Problem Memory change R41.3 Active Problem Gastroesophageal reflux disease, K21.9 Active esophagitis presence not specified Problem Osteoarthritis of multiple joints, M15.9 Active unspecified osteoarthritis type Problem Hyperlipidemia E78.5 Active Problem Allergic rhinitis J30.9 Active Problem Hyponatremia E87.1 Active Problem Hypertension I10 Active Problem Acquired hypothyroidism E03.9 Acti ve Problem Mixed stress and urge urinary N39.46 Active incontinence Problem Seasonal allergic rhinitis, J30.2 Active unspecified trigger Problem Seizure disorder G40.909 Active Assessment Weakness R53.1 Active Problem History of TIA (transient ischemic Z86.73 Active attack) Assessment Acquired hypothyroidism E03.9 Acti ve Problem Hospital discharge follow-up Z09 Active Problem Abnormal mammogram R92.8 Active Problem Type 2 diabetes E11.9 Active Problem Stenosis of left carotid artery I65.22 Active Problem Chronic fatigue R53.82 Active Problem Atherosclerosis I70.90 Active Problem Other speech disturbance R47.89 Act marty Medications Medication Code Code Instructions Start End Status Dosage System Date Date Carvedilol [facility] 61815337463 25 MG Orally Active as directed Eliquis [facility] 35716309288 5 MG Orally Active 1 tablet twice a day Sodium Chloride [facility] [address]-34 1000 MG Orally Act marty 1 tablet every 6 hours Coreg [facility] 16316987509 25 MG Orally Active not defined Metformin HCl [facility] 50231086768 500 Active TAKE 1 TABLET BY MOUTH TWICE DAILY Vitamin D3 [facility] 24355980896 1000 UNIT Active 1 capsu le Orally Once a day Estradiol [facility] 93975705704 0.1 MG/GM January Active as Vaginal Two 22, directed times a Week 2018 Levothyroxine [facility] 64096240229 125 MCG Orally Active 1 tablet Sodium Once a day in the morning on an empty stomach Amlodipine [facility] 00474151425 10 MG Orally Active 1 ta blet Besylate Once a day Vitamin E [facility] 94312530699 400 UNIT Orally Active no t defined Rosuvastatin [facility] 90246101366 40 MG Active TAKE 1 Calcium TABLET BY MOUTH DAILY Trimethoprim [facility] 83055145567 100 MG Orally Active 1 tablet Once a day Plavix [facility] 57485873185 75 MG Orally Active 1 table t Once a day Omeprazole [facility] 73466150919 40 MG orally Active 1 EA CH daily in AM ONCE A DAY Cyanocobalamin [facility] [address]-83 1000 MCG/15ML Activ e 15 ml Orally Once a day Crestor [facility] 20300906789 40 MG Active 1 EACH ONCE A DAY Cranberry [facility] 18470-25964 425 MG Orally Active 1 ca psule Concentrate with meals Tylenol Arthritis ND 0 Active not Pain defined Sertraline HCl [facility] 51018630504 25 MG Orally Active 1 tablet Once a day Vitamin B-12 [facility] 26321-74760 Active not defined Irbesartan [facility] 41178696001 150 MG Orally Active 1 t ablet Once a day HydrALAZINE HCl [facility] 05677916745 100 MG Orally Active 1 tablet Three times a with food day Methenamine [facility] 97683547328 1 GM Orally Active 1 ta blet Hippurate Twice a day Levetiracetam [facility] 20453679772 250 MG Orally Active 1 tablet every 12 hrs Probiotic [facility] 13375683637 - Orally Active not defined Montelukast [facility] 04364286441 10 MG Orally September Active 1 t ablet Sodium Once a day 2019 Magnesium [facility] 42928292658 500 MG Orally Active not defined Omeprazole [facility] 48786057892 40 Active TAKE 1 CAPSULE BY MOUTH EVERY DAY HydrALAZINE HCl ND 75527646380 100 MG Orally December 05, Active as Three times a 2018 day Multivitamin [facility] 70450-34424 Active not defined Rosuvastatin [facility] 23244146301 40 Active TAKE 1 Calcium TABLET BY MOUTH DAILY Metformin HCl [facility] 72212608816 500 MG Orally Active 1 tablet Twice a day with meals Results Name Result Date Reference Range Unit Abnormali ty Flag Basic Metabolic Panel (7) ----Chloride 98 20200117 96-106 mmol/L ----Potassium 4.3 20200117 3.5-5.2 mmol/L ----Sodium 139 39250285 134-144 mmol/L ----BUN/Creatinine Ratio 24 20200117 12-28 ----eGFR If Africn Am 101 20200117 >59 mL/min/1.73 ----Glucose 89 20200117 65-99 mg/dL ----Carbon Dioxide, 23 20200117 20-29 mmol/L Total ----BUN 13 20200117 8-27 mg/dL ----Creatinine 0.54 20200117 0.57-1.00 mg/dL L ----eGFR If NonAfricn Am 88 [id number] >59 mL/min/1.73 Summary Purpose [employer]Clinical[employer] Submission
--- OUTSIDE RECORDS SUMMARY | 2020-03-04 17:10 | XMS REPORT ---
:1935 Author Organization [employer] Care Team Providers Name Role Phone Britt, Na Provider Role Unavailable Allergies No Known Allergies Problems Problem Type Condition Code Onset Dates Condition Statu s Problem Recurrent urinary tract infection N39.0 Active [...] trigger Problem Seizure disorder G40.909 Active Problem History of TIA (transient ischemic [...]
[2020-03-04 18:54] LABS: Absolute Lymphocytes (CBC) 1.9 K/uL (0.7-4.9); Basophils % 0.3 % (0-1.3); Hematocrit 41.5 % (36.0-45.0); Lymphocytes % 20.9 % (15.3-44.8); MPV 7.7 fL (7.6-11.3); RBC Red Blood Cell Count 4.25 M/uL (3.86-4.86)
[2020-03-04 19:11] LABS: Protime INR 1.18
[2020-03-04 19:12] LABS: ALT/SGPT 29 U/L (12-78); AST/SGOT 20 U/L (15-37); Albumin 3.9 g/dL (3.4-5.0); Alkaline Phosphatase 108 U/L (45-117); BUN Blood Urea Nitrogen 11 mg/dL (7-18); Bicarbonate 31 mmol/L (21-32); Bilirubin Direct 0.2 mg/dL (0-0.2); Bilirubin Total 0.6 mg/dL (0.2-1.0); Glucose Level 145 mg/dL (74-106); Lipase 120 U/L (73-393); Potassium 4.2 mmol/L (3.5-5.1); Protein, Total 7.8 g/dL (6.4-8.2); Sodium Level 138 mmol/L (136-145)
[2020-03-04 19:32] LABS: Magnesium 2.3 mg/dL (1.8-2.4); NT PRO-BNP 1497 pg/mL (<450); Troponin (Emerg Dept Use Only) < 0.02 ng/mL (0.0-0.045)
[2020-03-04] MEDS ORDERED: NA CHLORIDE 0.9% 500 ML ONE (19:43)
[2020-03-04] MEDS ORDERED: ONDANSETRON 4 MG/2 ML VIAL ONE (19:43)
[2020-03-04] MEDS ORDERED: FAMOTIDINE 20 MG/2 ML VIAL IV ONE (19:43)
--- NOTE | 2020-03-04 19:52 | RAD REPORT ---
EXAM DESCRIPTION: CT - Head Brain Wo Cont - 03/04/2020 7:41 pm CLINICAL HISTORY: WEAKNESS Headache, drowsiness COMPARISON: Head Brain Wo Cont dated 11/24/2019; Head Brain Wo Cont dated 09/12/2019 TECHNIQUE: All CT scans are performed using dose optimization technique as appropriate and may inclu de automated exposure control or mA/KV adjustment according to patient size. FINDINGS: No intracranial hemorrhage, hydrocephalus or extra-axial fluid collection.Moderate general ized brain atrophy is present with moderate periventricular and deep white matter chronic microvascul ar ischemic changes.No areas of brain edema or evidence of midline shift. Vertebral atherosclerosis. The paranasal sinuses and mastoids are clear. The calvarium is intact. IMPRESSION: No acute intracranial abnormality.
--- NOTE | 2020-03-04 20:15 | RAD REPORT ---
EXAM DESCRIPTION: RAD - Chest Single View - 03/04/2020 7:58 pm CLINICAL HISTORY: weakness Chest pain. COMPARISON: Chest Single View dated 11/24/2019; Chest Pa And Lat (2 Views) dated 10/14/2019; Chest Sing le View dated 10/01/2019; Chest Single View dated 09/12/2019 FINDINGS: Portable technique limits examination quality. The lungs are grossly clear. The heart is mildly prominent size with postsurgical changes of a prior CABG. No displaced fractures. IMPRESSION: No acute intrathoracic process suspected.
[2020-03-04 21:07] LABS: Urine Bacteria <20 /HPF (<20); Urine Culture Reflex Order NOT NEEDED; Urine RBC <5 /HPF (NONE SEEN)
[2020-03-04 21:10] LABS: Urine Blood NEGATIVE (NEG); Urine Glucose NEGATIVE (NEG); Urine Protein NEGATIVE (NEG); Urine pH 7.5 (5.0-7.0)
--- NOTE | 2020-03-04 21:25 | ER ---
Nurse's Notes [facility] Name: Radha Lara Age: 84 yrs Sex: Female : 1935 Arrival Date: 03/04/2020 Time: 17:10 Bed 16 Private MD: Diagnosis: Nausea;Weakness-general Presentation: 03/04 17:20 Chief complaint: Patient states: N/V, weakness, upper back pain for 1 week. No known ll1 fever. + dizziness. Coronavirus screen: Client denies travel out of the [place] in the last 14 days. fatigue, muscle pain, Client presents with at least one sign or symptom that may indicate coronavirus-19. Standard/surgical mask placed on the client. Ebola Screen: Patient denies travel to an Ebola-affected area in the 21 days before illness onset. No acute neurological deficit is noted. Initial Sepsis Screen: Does the patient meet any 2 criteria? HR > 90 bpm. No. Patient's initial sepsis screen is negative. Risk Assessment: Do you want to hurt yourself or someone else? Patient reports no desire to harm self or others. Onset of symptoms was February 26, 2020. 17:20 Method Of Arrival: Wheelchair ll1 17:20 Acuity: YOLANDE 3 ll1 18:06 Initial Sepsis Screen: Does the patient have a suspected source of infection? No. jd3 Patient's initial sepsis screen is negative. Stroke Activation: Symptom onset > 6 hours Physician: Stroke Attending; Name: ; Notified At: ; Arrived At: Physician: Chief Stroke Resident; Name: ; Notified At: ; Arrived At: Physician: Stroke Resident; Name: ; Notified At: ; Arrived At: Physician: ED Attending; Name: ; Notified At: ; Arrived At: Physician: ED Resident; Name: ; Notified At: ; Arrived At: Historical: - Allergies: 17:23 Codeine; ll1 17:23 Ibuprofen; ll1 17:23 Iodinated Contrast Media - IV Dye; ll1 17:23 Lisinopril; ll1 17:23 Niacin; ll1 17:23 Nitrofurantoin; ll1 17:23 Clonidine; ll1 17:23 vicoden; ll1 17:23 Zoloft; ll1 17:23 nitrous oxide; ll1 17:23 Aspirin; ll1 - PMHx: 17:23 PE; Diabetes - NIDDM; Kidney stones; TIA; CVA; acid reflux; ADD/ADHD; Atrial Fib; Sleep ll1 Apnea; Hypertension; Hyperlipidemia; UTI; - PSHx: 17:23 Tonsillectomy; Hysterectomy; Cholecystectomy; CABG; ll1 - Immunization history:: Flu vaccine is not up to date. - Social history:: Smoking status: Patient denies any tobacco usage or history of. Patient/guardian denies using alcohol, street drugs, tobacco products. Screenin:06 Abuse screen: Denies threats or abuse. Nutritional screening: No deficits noted. jd3 Tuberculosis screening: No symptoms or risk factors identified. Fall Risk Ambulatory Aid- None/Bed Rest/Nurse Assist (0 pts). Gait- Normal/Bed Rest/Wheelchair (0 pts) Mental Status- Oriented to own ability (0 pts). Total Glez Fall Scale indicates No Risk (0-24 pts). Assessment: 18:05 General: Appears in no apparent distress. uncomfortable, Behavior is calm, cooperative, jd3 appropriate for age, Reports fatigue for 2-3 days. Pain: Complains of pain in back of neck Quality of pain is described as aching. Neuro: Level of Consciousness is awake, alert, obeys commands, Oriented to person, place, time, situation. Cardiovascular: Denies chest pain, Heart tones present Capillary refill < 3 seconds Patient's skin is warm and dry. Respiratory: Airway is patent Respiratory effort is even, unlabored, Respiratory pattern is regular, symmetrical, Breath sounds are clear bilaterally. Denies cough, shortness of breath. GI: Abdomen is round non-distended, Abd is soft and non tender X 4 quads. Reports nausea, vomiting, Patient currently denies abdominal pain, constipation, diarrhea. : No signs and/or symptoms were reported regarding the genitourinary system. EENT: No signs and/or symptoms were reported regarding the EENT system. Derm: Skin is intact, Skin is dry, Skin is normal, Skin temperature is warm. Musculoskeletal: Circulation, motion, and sensation intact. Range of motion: intact in all extremities. 19:03 Reassessment: Patient appears in no apparent distress at this time. No changes from jd3 previously documented assessment. Patient and/or family updated on plan of care and expected duration. Pain level reassessed. Patient is alert, oriented x 3, equal unlabored respirations, skin warm/dry/pink. 20:53 Reassessment: Patient appears in no apparent distress at this time. No changes from jd3 previously documented assessment. Patient and/or family updated on plan of care and expected duration. Pain level reassessed. Patient is alert, oriented x 3, equal unlabored respirations, skin warm/dry/pink. 21:48 Reassessment: Patient appears in no apparent distress at this time. Patient and/or jd3 family updated on plan of care and expected duration. Pain level reassessed. Patient is alert, oriented x 3, equal unlabored respirations, skin warm/dry/pink. pt awaiting ride for discharge Patient states feeling better. Vital Signs: 17:20 BP 167 / 64; Pulse 91; Resp 18; Temp 98.3; Pulse Ox 100% ; Weight 54.43 kg; Height 5 ll1 ft. 2 in. (157.48 cm); Pain 5/10; 19:03 BP 162 / 61; Pulse 75; Resp 19 S; Pulse Ox 99% on R/A; jd3 20:53 BP 159 / 60; Pulse 82; Resp 16 S; Pulse Ox 98% on R/A; jd3 21:49 BP 166 / 68; Pulse 83; Resp 18 S; Pulse Ox 99% on R/A; jd3 17:20 Body Mass Index 21.95 (54.43 kg, 157.48 cm) ll1 ED Course: 17:10 Patient arrived in ED. as 17:21 Triage completed. ll1 17:24 Arm band placed on Patient placed in an exam room, on a stretcher. 1 18:05 Anthony Beltre, RN is Primary Nurse. jd3 18:07 Patient has correct armband on for positive identification. Bed in low position. Call jd3 light in reach. Side rails up X 1. Adult w/ patient. online affiliate marketing manager on. Pulse ox on. NIBP on. 18:50 Inserted saline lock: 20 gauge in left antecubital area, using aseptic technique. Blood jd3 collected. placed by [employer]. 19:03 Hari Lara PA is PHCP. cp 19:03 Kyree Marcos MD is Attending Physician. cp 21:06 Vega Gomez MD is Attending Physician. cp 21:50 No provider procedures requiring assistance completed. IV discontinued, intact, jd3 bleeding controlled, No redness/swelling at site. Pressure dressing applied. Administered Medications: 19:53 Drug: NS 0.9% 500 ml Route: IV; Rate: 250 ml/hr; Site: left antecubital; jd3 21:52 Follow up: Response: No adverse reaction; IV Status: Order to discontinue infusion jd3 19:53 Drug: Zofran (Ondansetron) 4 mg Route: IVP; Site: left antecubital; jd3 20:50 Follow up: Response: No adverse reaction jd3 19:53 Drug: Pepcid 20 mg Route: IVP; Site: left antecubital; jd3 20:50 Follow up: Response: No adverse reaction jd3 Outcome: 21:24 Discharge ordered by . cp 21:50 Condition: stable jd3 21:50 Discharge instructions given to patient, Instructed on discharge instructions, follow up and referral plans. medication usage, Demonstrated understanding of instructions, follow-up care, medications, Prescriptions given X 1. 22:10 Discharged to home via wheelchair, with family. jd3 22:10 Patient left the ED. jd3 Signatures: Vicki Thomas Corey, PA PA cp Davies, Jonathon, RN RN jd3 Harpreet Sepulveda RN RN ll1
--- NOTE | 2020-03-04 21:25 | EDPHYS ---
Physician Documentation [facility] Name: Radha Lara Age: 84 yrs Sex: Female : 1935 Arrival Date: 03/04/2020 Time: 17:10 Bed 16 Private MD: ED Physician Vega Gomez HPI: 03/04 18:35 This 84 yrs old Female presents to ER via Wheelchair with complaints of cp Weakness, Nausea/Vomiting, Neck and Upper Back Pain. 18:35 The patient presents to the emergency department with weakness of the entire body, cp generalized weakness, that is mild. 18:35 Onset: The symptoms/episode began/occurred 1 week(s) ago. cp 18:35 Associated signs and symptoms: Pertinent positives: dizziness, nausea, vomiting, cp Pertinent negatives: altered mental status, headache, neck stiffness, paresthesias, loss of vision. Severity of symptoms: in the emergency department the symptoms are unchanged despite home interventions. Patient's baseline: Neuro: alert and fully oriented, Motor: no deficits, Ambulation: walks without assistance, Speech: normal, The patient has a previous history of CVA. Current symptoms: general weakness. Historical: - Allergies: 17:23 Codeine; ll1 17:23 Ibuprofen; ll1 17:23 Iodinated Contrast Media - IV Dye; ll1 17:23 Lisinopril; ll1 17:23 Niacin; ll1 17:23 Nitrofurantoin; ll1 17:23 Clonidine; ll1 17:23 vicoden; ll1 17:23 Zoloft; ll1 17:23 nitrous oxide; ll1 17:23 Aspirin; ll1 - PMHx: 17:23 PE; Diabetes - NIDDM; Kidney stones; TIA; CVA; acid reflux; ADD/ADHD; Atrial Fib; Sleep ll1 Apnea; Hypertension; Hyperlipidemia; UTI; - PSHx: 17:23 Tonsillectomy; Hysterectomy; Cholecystectomy; CABG; ll1 - Immunization history:: Flu vaccine is not up to date. - Social history:: Smoking status: Patient denies any tobacco usage or history of. Patient/guardian denies using alcohol, street drugs, tobacco products. ROS: 18:38 Constitutional: Negative for body aches, chills, fever, poor PO intake. cp 18:38 Eyes: Negative for injury, pain, redness, and discharge. cp 18:38 Cardiovascular: Negative for chest pain, edema. 18:38 Respiratory: Negative for cough, shortness of breath, wheezing. 18:38 Abdomen/GI: Positive for nausea, Negative for abdominal pain, diarrhea, constipation, active vomiting. 18:38 Neuro: Positive for dizziness, weakness, Negative for altered mental status, headache. 18:38 All other systems are negative. Exam: 18:20 ECG was reviewed by the Attending Physician. cp 18:40 Constitutional: The patient appears in no acute distress, alert, awake, cp non-diaphoretic, non-toxic, well developed, well nourished. 18:40 Head/Face: Normocephalic, atraumatic. cp 18:40 Eyes: Periorbital structures: appear normal, Pupils: equal, round, and reactive to light and accomodation, Extraocular movements: intact throughout, Conjunctiva: normal, no exudate, no injection, Lids and lashes: appear normal, bilaterally. 18:40 ENT: External ear(s): are unremarkable, Nose: is normal, Mouth: Lips: moist, Oral mucosa: moist, Posterior pharynx: Airway: no evidence of obstruction, patent. 18:40 Neck: C-spine: vertebral tenderness, is not appreciated, crepitus, is not appreciated, ROM/movement: is normal, is supple, no range of motions limitations, no meningismus, no nuchal rigidity. 18:40 Chest/axilla: Inspection: normal, Palpation: is normal, no crepitus, no tenderness. 18:40 Cardiovascular: Rate: normal, Rhythm: irregularly irregular, Edema: is not appreciated, JVD: is not appreciated. 18:40 Respiratory: the patient does not display signs of respiratory distress, Respirations: normal, no use of accessory muscles, no retractions, labored breathing, is not present, Breath sounds: are clear throughout, no decreased breath sounds. 18:40 Abdomen/GI: Inspection: abdomen appears normal, Palpation: abdomen is soft and non-tender, in all quadrants, rebound tenderness, is not appreciated, voluntary guarding, is not appreciated, involuntary guarding, is not appreciated. 18:40 Back: pain, that is mild, ROM is normal, vertebral tenderness, is not appreciated. 18:40 Skin: cellulitis, is not appreciated, no rash present. 18:40 Neuro: Orientation: to person, place \T\ time. Mentation: is normal, Cerebellar function: is grossly normal, Motor: moves all fours, strength is normal, Sensation: is normal. Vital Signs: 17:20 BP 167 / 64; Pulse 91; Resp 18; Temp 98.3; Pulse Ox 100% ; Weight 54.43 kg; Height 5 ll1 ft. 2 in. (157.48 cm); Pain 5/10; 19:03 BP 162 / 61; Pulse 75; Resp 19 S; Pulse Ox 99% on R/A; jd3 20:53 BP 159 / 60; Pulse 82; Resp 16 S; Pulse Ox 98% on R/A; jd3 21:49 BP 166 / 68; Pulse 83; Resp 18 S; Pulse Ox 99% on R/A; jd3 17:20 Body Mass Index 21.95 (54.43 kg, 157.48 cm) ll1 MDM: 19:10 Patient medically screened. cp 21:23 Data reviewed: vital signs, nurses notes, lab test result(s), EKG, radiologic studies, cp CT scan, and as a result, I will discharge patient. 21:23 Counseling: I had a detailed discussion with the patient and/or guardian regarding: the cp historical points, exam findings, and any diagnostic results supporting the discharge/admit diagnosis, lab results, radiology results, to return to the emergency department if symptoms worsen or persist or if there are any questions or concerns that arise at home. Response to treatment: the patient's symptoms have mildly improved after treatment. 03/04 18:30 Order name: Basic Metabolic Panel 03/04 18:30 Order name: CBC with Diff 03/04 18:30 Order name: Hepatic Function 03/04 18:30 Order name: Lipase 03/04 18:37 Order name: Magnesium [facility] 03/04 18:37 Order name: NT PRO-BNP [facility] 03/04 18:37 Order name: PT-INR [facility] 03/04 18:37 Order name: Troponin (emerg Dept Use Only) [facility] 03/04 19:08 Order name: CBC with Automated Diff; Complete Time: 19:13 EDMS 03/04 19:45 Interpretation: Normal except: MCV 97.7. cp 03/04 19:12 Order name: Basic Metabolic Panel; Complete Time: 19:13 EDMS 0811 20:59 Interpretation: Normal except: GLUC 145. cp 03/04 19:12 Order name: Liver (Hepatic) Function; Complete Time: 19:13 EDMS 0811 19:45 Interpretation: Normal except: GLOB 3.9; A/G 1.0. cp / 19:12 Order name: Lipase; Complete Time: 19:13 EDMS 08 19:12 Order name: Urine Microscopic Only; Complete Time: 21:18 cp 03/04 19:28 Order name: Protime (+INR); Complete Time: 19:45 EDMS 03/04 18:30 Order name: IV Saline Lock; Complete Time: 18:37 ss 03/04 18:30 Order name: Labs collected and sent; Complete Time: 19:43 ss 03/04 18:37 Order name: EKG; Complete Time: 18:38 jd3 03/04 18:37 Order name: Cardiac monitoring; Complete Time: 18:37 d3 03/04 19:12 Order name: CT Head Brain wo Cont 03/04 19:12 Order name: XRAY Chest (1 view) 03/04 19:33 Order name: Troponin (Emerg Dept Use Only); Complete Time: 19:45 EDMS 11 21:00 Interpretation: Within normal limits: TROPED < 0.02. 03/04 19:33 Order name: NT PRO-BNP; Complete Time: 19:45 EDMS 03/04 19:45 Interpretation: Abnormal: NT PRO-BNP 1497. 03/04 19:33 Order name: Magnesium; Complete Time: 19:45 EDMS 03/04 19:42 Order name: Urine Dipstick--Ancillary (enter results); Complete Time: 21:18 tt3 03/04 19:52 Order name: CT; Complete Time: 20:29 EDMS 11 20:17 Order name: RAD; Complete Time: 20:29 EDMS 11 18:37 Order name: EKG - Nurse/Tech; Complete Time: 18:37 jd3 11 19:12 Order name: Urine Dipstick-Ancillary (obtain specimen); Complete Time: 19:43 cp 03/04 20:30 Order name: PO challenge; Complete Time: 20:55 cp 03/04 21:18 Order name: PO challenge; Complete Time: 21:20 cp EC:20 Rate is 84 beats/min. Rhythm is irregularly irregular. QRS interval is normal. QT cp interval is normal. T waves are Inverted in leads aVL, V4, V5, V6. Interpreted by me. Reviewed by me. Administered Medications: 19:53 Drug: NS 0.9% 500 ml Route: IV; Rate: 250 ml/hr; Site: left antecubital; jd3 21:52 Follow up: Response: No adverse reaction; IV Status: Order to discontinue infusion jd3 19:53 Drug: Zofran (Ondansetron) 4 mg Route: IVP; Site: left antecubital; jd3 20:50 Follow up: Response: No adverse reaction jd3 19:53 Drug: Pepcid 20 mg Route: IVP; Site: left antecubital; jd3 20:50 Follow up: Response: No adverse reaction jd3 Disposition: 23:52 Co-signature as Attending Physician, Vega Gomez MD I agree with the assessment and tw4 plan of care. Disposition: 03/04/20 21:24 Discharged to Home. Impression: Nausea, Weakness - general. - Condition is Stable. - Discharge Instructions: Nausea, Adult, Weakness. - Prescriptions for Zofran 4 mg Oral Tablet - take 1 tablet by ORAL route every 12 hours As needed; 20 tablet. - Medication Reconciliation Form, Thank You Letter, Antibiotic Education, Prescription Opioid Use form. - Follow up: Private Physician; When: 1 - 2 days; Reason: Recheck today's complaints. - Problem is new. - Symptoms have improved. Signatures: Dispatcher [employer] [facility] Abigail Ayala RN RN Hari Lara PA PA cp Davies, Jonathon, RN RN jVega Rangel MD MD tw4 Harpreet Sepulveda RN RN ll1 Corrections: (The following items were deleted from the chart) 19:15 18:31 Urine Dipstick-Ancillary ordered. [facility] 22:10 21:24 03/04/2020 21:24 Discharged to Home. Impression: Nausea; Weakness - general. jd3 Condition is Stable. Forms are Medication Reconciliation Form, Thank You Letter, Antibiotic Education, Prescription Opioid Use. Follow up: Private Physician; When: 1 - 2 days; Reason: Recheck today's complaints. Problem is new. Symptoms have improved. cp
[2020-03-04 22:19] VITALS: TEMP 98.3
[2020-03-04 22:33] VITALS: BP 166/68; O2SAT 99
--- NOTE | 2020-03-05 12:36 | EKG ---
Test Date: 2020-03-04 Test Time: 18:15:15 Fur Blowing Machine Operator: ANJALI MEASUREMENT RESULTS: Intervals: Rate: 84 MI: QRSD: 92 QT: 380 QTc: 449 [place]: P: MI: QRS: 5 T: 148 INTERPRETIVE STATEMENTS: Atrial fibrillation ST & T wave abnormality, consider lateral ischemia or digitalis effect Abnormal ECG Compared to ECG 11/24/2019 21:07:02 Left ventricular hypertrophy no longer present Myocardial infarct finding no longer present ST (T wave) deviation still present Possible ischemia still present Electronically Signed On 03-05-20 12:35:28 CDT by Jass Lance
== END 2020-03-04 22:10 | disposition home or self-care (01) ==
LOC: ER 17:03
DX: R11.0 Nausea (principal); I10 Essential (primary) hypertension; Z95.1 Presence of aortocoronary bypass graft; Z88.5 Allergy status to narcotic agent; Z88.6 Allergy status to analgesic agent; Z88.8 Allergy status to other drugs, medicaments and biological substances; Z91.041 Radiographic dye allergy status
CPT/HCPCS: 93005; 85025; 80048; 36415; 83735; 85610; 80076; 84484; 83690; 83880; 70450; 71045; J7040; J2405; 81003; 81015; 96361; 96374; 96375; 99284

== ENCOUNTER 2020-04-12 16:14 | Observation (INO) | payer OTHER ==
--- OUTSIDE RECORDS SUMMARY | 2020-04-12 16:17 | XMS REPORT | Clinical Summary ---
:1935 Author Organization [facility] Address [address] [place] [address] Care Team Providers Name Role Phone Unavailable [...] 42-Bifid Take 1 tablet by 0 Active 9-shddwd-STC (PROBIOTIC mouth daily. PLUS COLOSTRUM) 30-500-50 mg PwPk dliqyytr-vgu-awufjin Take 1 tablet by 0 Active fumarate [...] Abstract Internal Medicine Svetlana Edwards MD after 04/12/2019 Social History Tobacco Use Types Packs/Day Years [...] are i n the results section. after 04/12/2019 Results EKG-SCANNED (05/02/2019 1:30 PM CDT) Narrative [...] CDT) Specimen Narrative Performed At FINAL REPORT [employer] CLINICAL HISTORY: TIA TECHNIQUE: Initially, noncontrast head [...] intact. There is no evidence for a [place] proximal branch vessel occlusion. [...] aron stenosis, unchanged. No evidence for a [place] proxi mal branch vessel occlusion. Signed: Alexa Bolden MD Report Verified Date/Time:05/01/2019 10:58:29 Reading Location: [address] Room Procedure Note Interface, External Ris [...] intact. There is no evidence for a [place] proximal branch vessel occlusion. [...] aron stenosis, unchanged. No evidence for a [place] proxi mal branch vessel occlusion. Signed: Alexa Bolden MD Report Verified Date/Time: 05/01/2019 1 0:58:29 Reading Location: [facility] C013V [facility] Performing Organization Address City/State/Zipcode Phone Number [employer] CTA brain (05/01/2019 10:12 AM CDT) Specimen Narrative Performed At FINAL REPORT [employer] [facility] CLINICAL HISTORY: TIA TECHNIQUE: Initially, noncontrast head [...] intact. There is no evidence for a [place] proximal branch vessel occlusion. [...] aron stenosis, unchanged. No evidence for a [place] proxi mal branch vessel occlusion. Signed: Alexa Bolden MD Report Verified Date/Time:05/01/2019 10:58:29 Reading Location: [facility] C013[facility] Room Procedure Note Interface, External Ris In [...] intact. There is no evidence for a [place] proximal branch vessel occlusion. [...] aron stenosis, unchanged. No evidence for a [place] proxi mal branch vessel occlusion. Signed: Alexa Bolden MD Report Verified Date/Time: 05/01/2019 1 0:58:29 Reading Location: [address] Performing Organization Address City/State/Zipcode Phone Number GE RIS CBC (Hemogram only) (05/01/2019 4:23 AM CDT) WBC 7.4 3.5 - 10.5 K/L [facility] RBC 3.56 (L) 3.93 - 5.22 M/L [facility] Hemoglobin 11.3 11.2 - 15.7 GM/DL [facility] Hematocrit 33.9 (L) 34.1 - 44.9 % [facility] MCV 95.2 (H) 79.4 - 94.8 fL [facility] MCH 31.7 25.6 - 32.2 pg [facility] MCHC 33.3 32.2 - 35.5 GM/DL [facility] RDW 12.0 11.7 - 14.4 % [facility] Platelets 170 150 - 450 K/CU MM [facility] MPV 9.6 9.4 - 12.3 fL [facility] nRBC 0 0 - 0 /100 WBC [facility] Specimen Blood Performing Organization Address City/State/Zipcode Phone Number [address] [address] CENTER Basic Metabolic Panel (05/01/2019 4:23 AM CDT)Only the most recent of2 results within the time period is included. Sodium 133 (L) 136 - 145 meq/L [facility] Potassium 4.3 3.5 - 5.1 meq/L [facility] Chloride 104 98 - 107 meq/L [facility] CO2 24 22 - 29 meq/L [facility] BUN 8 7 - 21 mg/dL [facility] Creatinine 0.63 0.57 - 1.25 mg/dL [facility] Glucose 105 70 - 105 mg/dL [facility] Calcium 8.8 8.4 - 10.2 mg/dL [facility] EGFR 90Comment: ESTIMATED GFR IS mL/min/1.73 sq m [facility] NOT ACCURATE CREATININE [facility] CLEARANCE IN PREDICTING GLOMERULAR FILTRATION RATE. ESTIMATED GFR IS NOT APPLICABLE FOR DIALYSIS PATIENTS. Specimen Blood Performing Organization Address City/[facility]/Zipcode Phone Number [address] [address] CENTER Troponin I (04/30/2019 7:34 PM CDT)Only the most recent of2 resultswithin the time period is included. Troponin I <0.01 0.00 - 0.03 ng/mL [facility] Specimen Blood Narrative Performed At Troponin I (TnI) levels must be interpreted [facility] in the context of the presenting [...] tachyarrhythmia. Performing Organization Address City/State/Zipcode Phone Number [facility] [address] [place] [address] CENTER MR brain without IV contrast (04/30/2019 6:31 PM CDT) Specimen Narrative Performed At FINAL REPORT [employer] [facility] MR, BRAIN, WITHOUT CONTRAST INDICATION: Stroke, [...] MD Report Verified Date/Time:04/30/2019 19:07:03 Reading Location: [facility] [address] [place] [address] Procedure Note Interface, External Ris In - [...] Verified Date/Time: 04/30/2019 1 9:07:03 Reading Location: [facility] [address] [place] [address] Room Performing Organization Address City/State/Zipcode Phone Number [employer] 2D Echo W/Doppler(CW/PW/Color) (04/30/2019 4:26 PM CDT) Ejection Fraction [facility] ECHO HEAR TLAB [email or web address] CPACS Specimen Narrative Performed At Transthoracic Echocardiography Report (T TE) [facility] ECHO HEARTLAB [facility]CK[facility] Patient Name RADHA LARA Date of Study 04/30/2019 Silvio [id number] GenderFema Visit Number [id number] Room Number 1461 Number Date of Birth1935Referring Physician NATHAN ROBLES Age83 year(s)[employer] Custodian Josefina Siddiqui [facility] InterpretingRaPhysician MYA Bauer Procedure Type of Study [...] and post Valsalva . Mild aortic stenosis. Unue-oe-fwaepzxp mitral regurgitation. Mild tricuspid regurgitation. Estimated peak [...] leaflet thickening. Moderate mitral annular ca lcification. Vyqx-bg-tohlnokx mitral re gurgitation. MV inflow gradients are [...] Study 04/30/2019 Silvio Gender Female Visit Number [id number] Race Room Num [place] [address] Number Date of 1935 Lissette rossi Physician [...] and post Valsalva . Mild aortic stenosis. Siim-ag-yrwrqwzp mitral regurgitation. Mild tricuspid regurgitation. Estimated peak [...] leaflet thickening. Moderate mitral annular calcification. M ijg-ci-jzhexvne mitral regurgitation. M V inflow gradients are [...] Performing Organization Address City/State/Zipcode Phone Number [facility] MKCK[employer]ON CPACS TSH/Free T4 If Indicated (04/30/2019 7:02 AM CDT) TSH 0.69 0.35 - 4.94 uIU/mL [facility] Specimen Blood Narrative Performed At Add on please to morning labs [facility] Add on to morning labs Performing Organization Address City/State/Zipcode Phone Number [facility] [address] [place] [address] CENTER Vitamin B12 (04/30/2019 7:02 AM CDT) Vitamin B12 654 213 - 816 pg/mL [facility] Specimen Blood Narrative Performed At Add on please to morning labs [facility] Add on to morning labs Performing Organization Address City/State/Zipcode Phone Number [facility] [address] [place] [address] CENTER CBC with platelet count + automated diff (04/30/2019 4:28 AM CDT) WBC 7.9 3.5 - 10.5 K/L [facility] RBC 3.40 (L) 3.93 - 5.22 M/L [facility] Hemoglobin 10.6 (L) 11.2 - 15.7 GM/DL [facility] Hematocrit 32.1 (L) 34.1 - 44.9 % [facility] MCV 94.4 79.4 - 94.8 fL [facility] MCH 31.2 25.6 - 32.2 pg [facility] MCHC 33.0 32.2 - 35.5 GM/DL [facility] RDW 12.0 11.7 - 14.4 % [facility] Platelets 168 150 - 450 K/CU MM [facility] MPV 9.6 9.4 - 12.3 fL [facility] nRBC 0 0 - 0 /[address] [facility] % Neutros 57 % [facility] % Lymphs 28 % [facility] % Monos 12 % [facility] % Eos 2 % [facility] % Baso 0 % [facility] # Neutros 4.50 1.56 - 6.13 K/L [facility] # Lymphs 2.23 1.18 - 3.74 K/L [facility] # Monos 0.98 (H) 0.24 - 0.36 K/L [facility] # Eos 0.15 0.04 - 0.36 K/L [facility] # Baso 0.03 0.01 - 0.08 K/L [facility] Immature Granulocytes-Relative 0 0 - 1 % C [facility] Specimen Blood Performing Organization Address City/[facility]/Zipcode Phone Number [address] [address] [place] Hemoglobin A1c - Fasting (04/30/2019 4:28 AM CDT) Hemoglobin A1C 6.6 (H) 4.3 - 6.1 % [facility] Specimen Blood Narrative Performed At Fasting [facility] Performing Organization Address City/[facility] Centercode Phone Number [address] [address] [place] Fasting lipid panel (04/30/2019 4:28 AM CDT) Triglycerides 57Comment: Specimen slightly mg/dL [facility] Cholesterol 83Comment: Specimen slightly mg/dL [facility] HDL 37 mg/dL [facility] LDL Calculated 35 mg/dL [facility] Specimen Blood Narrative Performed At Triglyceride Reference Range: [facility] Low Risk <150 [id number] High Risk 200-499 Very High Risk>=500 Cholesterol Reference Range: Low Risk <200 [id number] High Risk>240 HDL Cholesterol Reference Range: Low Risk >=60 High Risk <40 LDL Cholesterol Reference Range: Optimal<100 Near Acrhgdu751-096 [id number] Gucu950-521 Very High >=190 Fasting Performing Organization Address City/[facility]/Zipcode Phone Number [address] [address] CENTER after 04/12/2019 Insurance Payer Benefit Plan / Group Subscriber ID Type Phone A ddress [employer] xxxxxxxxx Maps Contracted Advance Directives For more information, please contact:[address] [phone] Code Status Date Activated Date Inactivated Comments [...]
--- OUTSIDE RECORDS SUMMARY | 2020-04-12 16:18 | XMS REPORT ---
[...] End Status Dosage System Date Date Carvedilol [facility] [place] 92783562802 25 MG Orally Active as directed Eliquis [facility] [place]] 09628999765 5 MG Orally Active 1 tablet twice a day Sodium Chloride [facility] [place] [address]-41 1000 MG Orally Act marty 1 tablet every 6 hours Coreg [facility] [place]] 83005657783 25 MG Orally Active not defined Metformin HCl [facility] [place]] 18115417346 500 Active TAKE 1 TABLET BY MOUTH TWICE DAILY Vitamin D3 [facility] [place] [facility]] 79036380589 1000 UNIT Active 1 capsu le Orally Once a day Estradiol [facility] [place]] 87288568365 0.1 MG/GM January Active as Vaginal Two 22, directed times a Week 2018 Levothyroxine [facility] [place] [facility]] 65386967069 125 MCG Orally Active 1 tablet Sodium Once a day in the morning on an empty stomach Amlodipine [facility] [place]] 37466729371 10 MG Orally Active 1 ta blet Besylate Once a day Vitamin E [facility] [place]] 22462101920 400 UNIT Orally Active no t defined Rosuvastatin [facility] [place]] 29306085155 40 MG Active TAKE 1 Calcium TABLET BY MOUTH DAILY Trimethoprim [facility] [place]] 21549397903 100 MG Orally Active 1 tablet Once a day Plavix [facility] [place]] 77748076022 75 MG Orally Active 1 table t Once a day Omeprazole [facility] [place]] 30497866727 40 MG orally Active 1 EA CH daily in AM ONCE A DAY Cyanocobalamin [facility] [place]] [address]-53 1000 MCG/15ML Activ e 15 ml Orally Once a day Crestor [facility] [place]] 12709639606 40 MG Active 1 EACH ONCE A DAY Cranberry [facility] [place]] [address]146 425 MG Orally Active 1 ca psule Concentrate with meals Tylenol Arthritis ND 0 Active not Pain defined Sertraline HCl [facility] [place]] 61973046827 25 MG Orally Active 1 tablet Once a day Vitamin B-12 [facility] [place] [address]3335 Active not defined Irbesartan [facility] [place]] 45613199521 150 MG Orally Active 1 t ablet Once a day HydrALAZINE HCl [facility] [place]] 81173874619 100 MG Orally Active 1 tablet Three times a with food day Methenamine [facility] [place]] 79771850576 1 GM Orally Active 1 ta blet Hippurate Twice a day Levetiracetam [facility] [place]] 37581435687 250 MG Orally Active 1 tablet every 12 hrs Probiotic [facility] [place] 94802756452 - Orally Active not defined Montelukast [facility] [place]] 24782810474 10 MG Orally September Active 1 t ablet Sodium Once a day 2019 Magnesium [facility] [place]] 28328028987 500 MG Orally Active not defined Omeprazole [facility] [place]] 85044567942 40 Active TAKE 1 CAPSULE BY MOUTH EVERY DAY HydrALAZINE HCl ND 99189218299 100 MG Orally December 05, Active as Three times a 2018 day Multivitamin [facility] [place] [facility]] [address]59-[address] Active not defined Rosuvastatin [facility] [place]] 97423708644 40 Active TAKE 1 Calcium TABLET BY MOUTH DAILY Metformin HCl [facility] [place]] 66395423153 500 MG Orally Active 1 tablet Twice a day with meals Results Name Result Date Reference Range Unit Abnormali ty Flag Basic Metabolic Panel (7) ----Chloride 98 20200117 96-106 mmol/L ----Potassium 4.3 20200117 3.5-5.2 mmol/L ----Sodium 139 55421222 134-144 mmol/L ----BUN/Creatinine Ratio 24 20200117 12-28 ----eGFR If Africn Am 101 20200117 >59 mL/min/1.73 ----Glucose 89 20200117 65-99 mg/dL ----Carbon Dioxide, 23 20200117 20-29 mmol/L Total ----BUN 13 20200117 8-27 mg/dL ----Creatinine 0.54 20200117 0.57-1.00 mg/dL L ----eGFR If NonAfricn Am 88 32786952 >59 mL/min/1.73 Summary Purpose eClinicalWorks Submission
--- OUTSIDE RECORDS SUMMARY | 2020-04-12 16:18 | XMS REPORT | Continuity of Care Document ---
:1935 Author Organization [facility] t Address [address] [place] [address] Care Team Providers Name Role Phone Mir Mendenhall MD Attending Clinician Ayaan Bar MD Attending Clinician Tracy Robles Attending Clinician MIR MENDENHALL Attending Clinician Unavailable JAMAAL MEJIA Attending Clinician Unavailable MIR MENDENHALL Admitting Clinician Unavailable JAMAAL MEJIA Admitting Clinician Unavailable Payers Payer Name Policy Type Policy Number Effective Expiration Source Date Date TEXANPLUSTEXANPLUS O xxxxxxxxx [facility] Problems Condition Condition Condition Status Onset Resolution [...] Active [place] hypertensi Hypertensi 6-17 [facility] on on 00:00: Practic 00 e Atrial [...] St diabetes diabetes [facility] Obstructiv Obstructiv Problem Active [facility] e sleep e sleep [facility] apnea apnea [facility] Overactive Overactive Problem Active [facility] bladder bladder [facility] Hospital Hospital Problem Active [facility] discharge discharge Luke [facility] - follow-up follow-up Vicente marky l [facility] Hyperlipid Hyperlipid Diagnosis Active [facility] emia emia [facility] 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[facility] rosis rosis [facility] 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 [facility] History of History of Problem Active [facility] TIA TIA [facility] - (transient (transient Me moria ischemic ischemic l attack) attack) [facility] Renal cyst Renal cyst Problem Active [facility] 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 [facility] - tract tract Memoria infection infection l [facility] 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 [facility] - carotid carotid Memoria artery artery l [facility]ics Other Other Problem Active [facility] speech speech [facility] - disturbanc disturbanc Me moria e e l [facility]ics Gastroesop Gastroesop Problem Active [facility] hageal hageal [facility] - reflux reflux Memoria disease, disease, l esophagiti esophagiti Ou tpati s presence s presence en t not not Clinics specified specified Hypertensi Hypertensi Problem Active [facility] on on [facility] Obesity Obesity Problem Active [facility] Chronic Chronic Problem Active [facility] a-fib a-fib [facility] Abnormal Abnormal Problem Active [facility] t mammogram mammogram Luke s - Memoria l [facility] Chronic Chronic Problem Active [facility] fatigue fatigue [facility] Elevated Elevated Problem Active [facility] t TSH TSH kes - Memoria l [facility]ics 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 depression Cyndi kes - Memoria l [facility]ics Stress at Stress at Problem Active [facility] home home [facility] Other Other Problem Active [facility] chronic chronic [facility] - pain pain Memoria l [facility] Mixed Mixed Problem Active [facility] stress and stress and Cyndi kes - urge urge Memoria urinary urinary l incontinen incontinen Ou tpati [facility] Clinics Acquired Acquired Diagnosis Active [facility] hypothyroi hypothyroi Cyndi kes - dism dism Memoria l [facility] Memory Memory Problem Active [facility] change change [facility] Seizure Seizure Problem Active [facility] disorder disorder [facility] Seasonal Seasonal Diagnosis Active [facility] allergic allergic [facility] - rhinitis, rhinitis, Vicente marky unspecifie unspecifie l d trigger d trigger Outp at ent Clinics 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 [facility]ukes - multiple multiple Memori a joints, joints, l unspecifie unspecifie Ou tpati d d ent osteoarthr osteoarthr Cl inics itis type itis type Low sodium Low sodium Diagnosis Active [facility] levels levels [facility] Weakness Weakness Diagnosis Active [facility] Clinics Allergies, Adverse Reactions, Alerts Allergy [...] Active Info Not [facility] Reaction Available [facility] Macrodan Adverse Active Info Not [facility] tin Reaction Available [facility] Lisinopr Adverse Active Info Not [facility] t il Reaction Available [facility] Aspirin Adverse Active Info Not [facility] Reaction Available [facility] Nitrous Adverse Active Info Not [facility] oxide Reaction Available [facility] Iodine Adverse Active Info Not [facility] contrast Reaction Available Cristian es - dye [facility] Vicodin Adverse Active Info Not [facility] Reaction Available [facility] Niacin Adverse Active Info Not [facility] Reaction Available [facility] Social History Social Habit Start Date Stop Date Quantity Comments Source Sex Assigned [facility] Smoking Status Start Date Stop Date Source Never smoker [facility] Medications Ordered Filled Start Stop Current Ordering Indication Dosage Frequency Signature Comments Components Source Medication Medication Date Date Medication? Clinician (SIG) Name Name Sodium Sodium 2020- Yes Na Britt [address] Chloride Chloride 03-10 [facility] - 00:00: 00:00 Memoria 00 :00 [facility] Yes Na Britt [address] Sodium Sodium 3-20 [facility] - 00:00: Memoria 00 [facility] clopidogrel 2018-07 Yes 75mg QD Take [address] (PLAVIX) 75 0-07 by mouth Luke s - mg tablet 00:32: daily. Medica l [address] sertraline 2018-07 Yes 25mg QD Take [address] (ZOLOFT) 25 0-07 by mouth Luke s - MG tablet 00:32: daily. Medica l [address] cranberry 2018-07 Yes 4200mg Q.5D Take 4,[address] conc-ascorb 0-07 mg by [facility] - ic acid 00:32: mouth 2 Medical (CRANBERRY 41 (two) Center CONCENTRATE times ) 140-100 daily. mg Cap Lactobac 2018-07 Yes 1{tbl} QD Take 1 [facility] t 42-Bifid 0-07 tablet by [facility] - 8-colost-FO 00:32: mouth Medic al S 41 daily. [place] (PROBIOTIC PLUS COLOSTRUM) 30-500-50 mg PwPk multivit-mi 2018-07 Yes 1{tbl} QD Take [address] n-ferrous 0-07 tablet by [facility]ukes - fumarate 00:32: mouth Medical (MULTI 41 daily. [place] VITAMIN) 9 mg iron/15 mL Liqd magnesium 2018-07 Yes 500mg QD Take [address] gluconate 0-07 mg by Lukes - (MAGONATE) 00:25: mouth Medica l 27.5 mg 41 daily . [place] (500 mg) tablet irbesartan Yes 150mg QD Take [address] (AVAPRO) 7-28 mg by [facility]ukes - 150 MG 00:00: mouth Medical tablet 00 daily. [place] amLODIPine Yes 10mg QD Take [address] (NORVASC) 7-28 by mouth [facility] - 10 MG 00:00: daily. Medical tablet 00 [place] Estradiol Estradiol Yes Na Britt as [facility] 7-22 directed [facility] - 00:00: Memoria [facility] HydrALAZINE HydrALAZINE Yes Na Britt [address] HCl HCl 5-14 with food [facility] - 00:00: Memoria 00 [facility] rosuvastati 2018-0 Yes 40mg QD Take [address] n (CRESTOR) 4-28 by mouth Luke s - 40 MG 22:09: daily. Medical tablet 45 [place] apixaban 2018-0 Yes 5mg Q.5D Take [address] (ELIQUIS) 5 4-28 by mouth 2 Cyndi kes - mg Tab 22:09: (two) Medical tablet 45 times Center daily. hydrALAZINE 2018-0 Yes 100mg [id number] Take [address] (APRESOLINE 4-28 [id number] mg by L ukes - ) 100 [...] 40 MG 22:09: daily. Medical capsule 45 [place] valsartan 2018-0 Yes 160mg QD Take [address] (DIOVAN) 4-28 mg by [facility]ukes - 160 MG 22:09: mouth Medical tablet 45 daily. [place] verapamil 2018-0 Yes 240mg QD Take [address] (VERELAN 4-28 mg by [facility]ukes - PM) 240 MG 22:09: mouth Medica l 24 hr 45 nightly. [place] capsule cyanocobala 2018-0 Yes 1000ug QD Take 1,[address] min 4-28 mcg by [employer] - (VITAMIN 22:09: mouth Medical B-12) 1000 45 daily. [place] MCG tablet cholecalcif 2018-0 Yes 1000U QD Take 1,[address] roly, 4-28 Units by [employer] - vitamin D3, 22:09: mouth Medic al 1,000 unit 45 daily. [place] capsule carvedilol 2018-0 Yes 25mg Take 25 [...] route. carvedilol carvedilol No 1 BID carvedilol [facility] 25 mg 25 mg 25 mg Family tablet Take tablet Take tablet Practic 1 tablet 1 tablet Take 1 e twice a day twice a day tablet by oral by oral twice a route. route. day by oral route. clopidogrel clopidogrel No 1 Q1D clopidogre [facility] 75 mg 75 mg l 75 mg Family tablet Take tablet Take tablet Practic 1 tablet 1 tablet Take 1 e every day every day tablet by oral by oral every day route. route. by oral route. Crestor 40 Crestor 40 No 1 Q1D Crestor 40 [facility] mg tablet mg tablet mg tablet Family Take 1 Take 1 Take 1 Practic tablet tablet tablet e every day every day every day by oral by oral by oral route. route. route. Eliquis 5 Eliquis 5 No 1 BID Eliquis 5 [facility] mg tablet mg tablet mg tablet Family Take 1 Take 1 Take 1 Practic tablet tablet tablet e twice a day twice a day twice a by oral by oral day by route. route. oral route. hydralazine hydralazine No 1 TID hydralazin [facility] 100 mg 100 mg e 100 mg Family tablet Take tablet Take tablet Practic 1 tablet 3 1 tablet 3 Take 1 e times a day times a day tablet 3 by oral by oral times a route. route. day by oral route. irbesartan irbesartan No 1 Q1D irbesartan [facility] 150 mg 150 mg 150 mg Family tablet Take tablet Take tablet Practic 1 tablet 1 tablet Take 1 e every day every day tablet by oral by oral every day route. route. by oral route. metformin metformin No 1 BID metformin [facility] 500 mg 500 mg 500 mg Family tablet Take tablet Take tablet Practic 1 tablet 1 tablet Take 1 e twice a day twice a day tablet by oral by oral twice a route. route. day by oral route. omeprazole omeprazole No 1capsul Q1D omeprazole [facility] 40 mg 40 mg e(s) 40 mg [...] by oral by oral route. route. route. Tylenol Tylenol Yes Na Britt not [facility] Arthritis Arthritis defined Cyndi kes - Pain Pain Memoria l [facility] Methenamine Methenamine Yes Na Britt [address] Hippurate Hippurate [facility] Irbesartan Irbesartan Yes Na Britt [address] [facility] Vitamin Vitamin Yes Na Britt not [facility] B-12 B-12 defined [facility] Crestor Crestor Yes Na Britt [address] [facility] ONCE A DAY [facility] Metformin Metformin Yes Na Britt [address] HCl HCl with meals [facility] Vitamin E Vitamin E Yes Na Britt not [facility] defined [facility] Omeprazole Omeprazole Yes Na Britt TAKE [address] [facility] CAPSULE BY Lukes - MOUTH Memoria EVERY DAY l [facility] Amlodipine Amlodipine Yes Na Britt [address] Besylate Besylate [facility] Eliquis Eliquis Yes Na Britt [address] [facility] Out[facility] Clinics Multivitami Multivitami Yes Na Britt not [facility] n n defined [facility] Probiotic Probiotic Yes Na Britt not [facility] defined [facility] Trimethopri Trimethopri Yes Na Britt [address] m m [facility] Magnesium Magnesium Yes Na Britt not [facility] defined [facility] Levetiracet Levetiracet Yes Na Britt [address] am am [facility] Coreg Coreg Yes Na Britt not [facility] defined [facility] Metformin Metformin Yes Na Britt TAKE [address] [facility] HCl HCl TABLET BY Lukes - MOUTH Memoria TWICE l DAILY [facility] Rosuvastati Rosuvastati Yes Na Britt TAKE [address] [facility] [facility] n Calcium n Calcium TABLET BY [facility]ukes - MOUTH Memoria DAILY l [facility] Sertraline Sertraline Yes Na Britt [address] HCl HCl [facility] Vitamin D3 Vitamin D3 Yes Na Britt [address] [facility] Cyanocobala Cyanocobala Yes Na Britt [address] min min [facility] Omeprazole Omeprazole Yes Na Britt [address] ONCE A DAY [facility] Plavix Plavix Yes Na Britt [address] kes - [facility] Carvedilol Carvedilol Yes Na Britt as [facility] directed [facility] Levothyroxi Levothyroxi Yes Na Britt [address] ne Sodium ne Sodium in the Cristian es - morning on Memoria an empty l stomach [facility] Sodium Sodium Yes Na Britt TAKE [address] Chloride Chloride TABLET in Cyndi kes - AM and 1 Memoria tab EVERY l 6 HOURS [facility] Cranberry Cranberry Yes Na Britt [address] Concentrate Concentrate with meals [facility] Vital Signs Vital Name Observation Time Observation Value Comments Source Height 2020-02-19 00:00:00 62 [in_i] [facility] Height 2019-10-16 00:00:00 62 [in_i] [facility] BMI (Body Mass Index) 2019-10-16 00:00:00 23.8 kg/m2 [facility] Body Weight 2019-10-16 00:00:00 130 [lb_av] [facility] Systolic blood 2019-05-01 15:00:00 159 mm[Hg] [facility] Diastolic blood 2019-05-01 15:00:00 60 mm[Hg] [facility] Heart rate 2019-05-01 15:00:00 68 /min [facility] Body temperature 2019-05-01 15:00:00 36.67 Monica [facility] Respiratory rate 2019-05-01 15:00:00 18 /min [facility] Oxygen saturation in 2019-05-01 15:00:00 96 /min [facility] Arterial blood by Medical Ce ntperla Pulse oximetry Body weight Measured 2019-05-01 09:00:00 59.149 kg [facility] BMI 2019-05-01 09:00:00 22.38 kg/m2 [facility] Procedures Procedure Date / Time Performing Clinician Source Performed REPORT OF PROCEDURE - 2019-05-02 13:30:41 Provider, Default [facility] ENDOSCOPY SCAN [facility] RHYTHM STRIP - SCAN 2019-05-02 13:30:39 Provider, Default [facility] ECHOCARDIOGRAM REPORT - 2019-05-01 21:20:54 Provider, Default [facility] CTA BRAIN 2019-05-01 10:12:[facility]OTID 2019-05-01 10:12:[address] [facility] CBC (HEMOGRAM ONLY) 2019-05-01 04:23:00 [place] [facility] BASIC METABOLIC PANEL (7) 2019-05-01 04:23:00 Nathan Robles [facility] TROPONIN I 2019-04-30 19:34:[address] [facility] MR BRAIN WITHOUT IV 2019-04-30 18:31:00 [facility] 2D ECHO W/ DOPPLER 2019-04-30 16:26:22 [facility] (CW/PW/COLOR) [facility] TSH/FREE T4 IF INDICATED 2019-04-30 07:02:00 Kacey Ryan [facility] VITAMIN B12 2019-04-30 07:02:[address] [facility] BASIC METABOLIC PANEL (7) 2019-04-30 04:28:00 [facility] LIPID PANEL 2019-04-30 04:28[facility] 2019-04-30 04:28[facility]00 [facility] TROPONIN I 2019-04-30 04:28:00 [facility] CBC W/PLT COUNT & AUTO 2019-04-30 04:28:00 [facility]vany [place] [facility] Plan of Care Planned Activity Planned Date Details Comments Source Future Appointment 2020-08-24 00:00:00 Belle Jennifer maxim [facility] Richard, [address]; [address], [place] [address] Encounters Start End Encounter Admission Attending Care Care Encounter Source Date/Time Date/Time Type Type Clinicians Facility Department ID 2020-03-26 2020-03-26 [facility] [id number] 11:20:00 11:20:00 t [employer] [facility] Medicine Outpati ent Clinics 2020-03-07 2020-03-07 [facility] [id number] 14:44:00 14:44:00 t [employer] [facility] Outpati ent Clinics 2020-03-05 2020-03-05 [facility] [id number] 11:00:00 11:00:00 t Specialty/U Cyndi kes - [facility] Outpati ent Clinics 2020-03-03 2020-03-03 [facility] [id number] 12:39:00 12:39:00 t [employer] [facility] Medicine Outpati ent Clinics 2020-03-03 2020-03-03 [facility] [id number] 12:15:00 12:15:00 t [employer] [facility] Outpati ent Clinics 2020-02-19 2020-02-19 Belle [facility] [place] - [id number] V illage 00:00:00 00:00:00 AdamsTiffanie [facility] Juancarlos aguilar SEAT NAILER: Medical - Practi c [email or web address], [address], [place] [address] , Ph. 2020-01-18 2020-01-18 [facility] [id number] 10:39:00 10:39:00 t [employer] [facility] Outpati ent Clinics 2020-01-17 2020-01-17 [facility] [id number] 10:40:00 10:40:[address] [facility] Medicine l Medicine Outpati ent Clinics 2020-01-01 2020-01-01 [facility] [id number] 13:55:00 13:55:[address] [address] [facility] l Medicine Outpati ent Clinics 2019-12-20 2019-12-20 [facility] [id number] 09:43:00 09:43:[address] [facility] Medicine l Medicine Outpati ent Clinics 2019-12-18 2019-12-18 [facility] [id number] 11:20:00 11:20:[address] [facility] l Medicine Outpati ent Clinics 2019-12-04 2019-12-04 [facility] [id number] 10:00:00 10:00:00 t Specialty/U Cyndi kes - Specialty rology Memori a /Urology Clinic l Clinic Outpati ent Clinics 2019-12-03 2019-12-03 [facility] [id number] 11:31:00 11:31:00 t [employer] [facility] Medicine Outpati ent Clinics 2019-11-26 2019-11-26 [facility] [id number] 08:43:00 08:43:00 t [employer] [facility] Medicine Outpati ent Clinics 2019-11-16 2019-11-16 [facility] [id number] 08:35:00 08:35:00 t Specialty/U Cyndi kes - Specialty rology Memori a /Urology Clinic l Clinic Outpati ent Clinics 2019-11-10 2019-11-10 [facility] [id number] 14:05:00 14:05:00 t [facility] l Medicine Outpati ent Clinics 2019-10-17 2019-10-17 [facility] [id number] 14:55:00 14:55:[address] [facility] Medicine l Medicine Outpati ent Clinics 2019-10-16 2019-10-16 Belle [facility] [place] - [id number] V illage 00:00:00 00:00:00 [facility] eliana aguilar SEAT NAILER: Medical - Practi winter [email or web address], [address], [place] [address] , Ph. 2019-10-12 2019-10-12 [facility] [id number] 15:58:00 15:58:00 t [employer] [facility] Medicine Outpati ent Clinics 2019-10-01 2019-10-01 [facility] [id number] 15:42:00 15:42:00 t [employer] [facility] Medicine Outpati ent Clinics 2019-09-25 2019-09-25 [facility] [id number] 11:20:00 11:20:[address] [facility] Medicine Medicine Outpati ent Clinics 2019-09-18 2019-09-18 [facility] [id number] 11:15:00 11:15:00 t Specialty/U Cyndi kes - Specialty rology Memori a /Urology Clinic l Clinic Outpati ent Clinics 2019-09-14 2019-09-14 [facility] [id number] 11:32:00 11:32:00 t [employer] [facility] Medicine Outpati ent Clinics 2019-09-04 2019-09-04 [facility] [id number] 11:20:00 11:20:[address] [facility] l Medicine Outpati ent Clinics 2019-09-04 2019-09-04 [facility] [id number] 10:00:00 10:00:00 t Specialty/U Cyndi kes - Specialty rology Memori a /Urology Clinic l Clinic Outpati ent Clinics 2019-08-08 2019-08-08 [facility] [id number] 10:40:00 10:40:[address] [facility] Medicine l Medicine Outpati ent Clinics 2019-08-02 2019-08-02 [facility] [id number] 13:00:00 13:00:00 t Specialty/U Cyndi kes - Specialty rology Memori a /Urology Clinic l Clinic Outpati ent Clinics 2019-07-09 2019-07-09 [facility] [id number] 14:00:00 14:00:[address] [facility] Medicine l Medicine Outpati ent Clinics 2019-05-29 2019-05-29 [facility] [id number] 11:20:00 11:20:00 t [employer] [facility] Medicine Outpati ent Clinics 2019-05-15 2019-05-15 [facility] [id number] 10:15:00 10:15:00 t Specialty/U Cyndi kes - Specialty rology Memori a /Urology Clinic l Clinic Outpati ent Clinics 2019-04-24 2019-04-24 [facility] [id number] 10:40:00 10:40:[address] [facility] l Medicine Outpati ent Clinics 2019-04-09 2019-04-09 [facility] [id number] 13:20:00 13:20:00 t [employer] [facility] Medicine Outpati ent Clinics 2019-03-24 2019-03-24 [facility] [id number] 12:00:00 12:00:00 t [facility] u[facility] - Care Clinic Memoria Clinic l Outpati ent Clinics 2019-03-15 2019-03-15 [facility] [id number] 13:22:00 13:22:00 t [facility] 2019-03-13 2019-03-13 [facility] [id number] 10:39:00 10:39:[address] [facility] l Medicine Outpati ent Clinics 2019-03-12 2019-03-12 [facility] [id number] 10:30:00 10:30:00 t Urgent Urgent Care L uk - Care Clinic [facility] l Outpati ent Clinics 2019-02-28 2019-02-28 [facility] [id number] 13:00:00 13:00:00 t [employer] [facility] l Medicine Outpati ent Clinics 2019-02-12 2019-02-12 [facility] [id number] 10:15:00 10:15:00 t Specialty/U Cyndi kes - Specialty rology [facility] a /Urology Clinic l Clinic Outpati ent Clinics 2019-02-08 2019-02-08 [facility] [id number] [address] 15:00:00 15:00:00 t [place] [employer] [facility] - [facility] l Medicine Outpati ent Clinics 2019-02-08 2019-02-08 [facility] [id number] 08:42:00 08:42:00 t [place] [employer] [facility] Medicine Outpati ent Clinics 2019-02-06 2019-02-06 [facility] [id number] 09:40:00 09:40:00 t [place] [employer] [facility] - [employer] Special[facility] Medicine Outpati ent Clinics 2019-01-09 2019-01-09 [facility] [id number] 10:40:00 10:40:00 t [place] Cellu[employer] s - [facility] l Medicine Outpati ent Clinics 2019-01-03 2019-01-03 [facility] [id number] 13:07:00 13:07:00 t [place] [employer] [facility] Medicine Outpati ent Clinics 2018-12-28 2018-12-28 [facility] [id number] 14:00:00 14:00:00 t [place] [employer] [facility] - [facility] l Medicine Outpati ent Clinics 2018-09-14 2018-09-14 [facility] [id number] 09:26:00 09:26:00 t [place] [employer] [facility] [facility] Medicine Outpati ent Clinics 2018-09-08 2018-09-08 [facility] [id number] 09:30:00 09:30:00 t ActualSun Luke s - Drive [facility] Clinics 2018-08-07 2018-08-07 [facility] [id number] 08:45:00 08:45:[address] Luke s - Drive [facility] ent Clinics 2018-02-20 2018-02-20 [facility] [id number] 14:30:00 14:30:00 t Afton Afton [employer] Lu[employer]ient s - Drive [facility] Medicine [facility] ent Clinics 2018-02-03 2018-02-03 [facility] [id number] 09:00:00 09:00:00 t [place] [employer] s - Drive [facility] Results Test Description Test Time Test Comments Results Result [facility] e Comments 2D Echo Ejection FractionSLEH [facility] W/Doppler(CW/PW/C 8 ECHO HEARTLAB - [facility]) 10:59:53 [facility] CPACSInterface, External Ris In - 05/01/2019 11:00 AM CDTTransthoracic Echocardiography Report (TTE) Demographics Patient Name JAMES ARGUETA Date of Study 04/30/2019 M Gender Female Visit Number [id number] Race Room Number 1461 Number Date of 1935 Referring Physician NATHAN ROBLES Age 83 year(s) Knocker Out Josefina Siddiqui RUST Interpreting Cheikh Pacheco, Physician Procedure Type of Study TTE procedure:2DECHO [...] and post Valsalva . Mild aortic stenosis. Onyi-cq-fmgtwpfm mitral regurgitation. Mild tricuspid regurgitation. Estimated peak [...] MV leaflet thickening. Moderate mitral annular calcification. Qyyt-kk-rhzvcmdp mitral regurgitation. MV inflow gradients are increased [...] l/min LVOT CI: 3.45 l/min/m^2 CT, CTANGIO Reason for FINAL REPORT PATIENT BRAIN 8 exam:->stroke ID: [id number] 10:58:00 CLINICAL HISTORY: TIA TECHNIQUE: Initially, noncontrast [...] intact. There is no evidence for a pokagon of Lawson proximal branch vessel occlusion. Mild [...] artery stenosis, unchanged. No evidence for a pokagon of Lawson proximal branch vessel occlusion. Signed: Alexa Bolden MDReport Verified Date/Time: 05/01/2019 10:58:29 Reading Location: [address] Neuro Reading Room , CAROTID, Reason for FINAL REPORT PATIENT ANGIO 8 exam:->eval ID: [id number] 10:58:00 for TIA CLINICAL HISTORY: TIA TECHNIQUE: [...] intact. There is no evidence for a pokagon of Lawson proximal branch vessel occlusion. Mild [...] artery stenosis, unchanged. No evidence for a pokagon of Lawson proximal branch vessel occlusion. Signed: Alexa Bolden MDReport Verified Date/Time: 05/01/2019 10:58:29 Reading Location: [address] Neuro Reading Room brain Interface, External [facility] Ris In - 05/01/2019 - Med ical 10:58:00 11:07 AM [facility] Center REPORT CLINICAL HISTORY: TIA TECHNIQUE: Initially, [...] intact. There is no evidence for a pokagon of Lawson proximal branch vessel occlusion. Mild [...] artery stenosis, unchanged. No evidence for a pokagon of Lawson proximal branch vessel occlusion. Signed: Alexa Bolden MDReport Verified Date/Time: 05/01/2019 10:58:29 Reading Location: [address] Neuro Reading Room carotid 0 Interface, External [facility] 8 Ris In - 05/01/2019 - Med ical 10:58:00 11:07 AM [facility] Center REPORT CLINICAL HISTORY: TIA TECHNIQUE: Initially, [...] intact. There is no evidence for a pokagon of Lawson proximal branch vessel occlusion. Mild [...] artery stenosis, unchanged. No evidence for a pokagon of Lawson proximal branch vessel occlusion. Signed: Alexa Bolden MDReport Verified Date/Time: 05/01/2019 10:58:29 Reading Location: [facility] C013V Neuro Reading Room Basic Metabolic Panel 2019-05-01 [...] 105 mg/dL 70-105 Calcium (test code = 58524-0) 8.8 mg/dL 8.4-10.2 EGFR (test code = 37028-1) 90 mL/min/1.73 sq m ESTIMATED GFR IS NOT ACCURATE CRE ATININE CLEARANCE IN AL EDICTING GLOMERULAR FILT RATION RATE. ESTIMATED GFR IS NOT APPLICABLE FOR DIALYSIS PATIEN TS. Lab Interpretation (test code Abnormal = 76095-8) [facility] METABOLIC [id number] 06:04:00 Test Item Value Reference Range Interpretation [...] 450 K/CU MM MPV (test code = 87917-6) 9.6 fL 9.4-12.3 nRBC (test code = 413) 0 0- 0 /100 WBC Lab Interpretation (test code = Abnormal 36057-4) [facility]2019-05-01 04:59:00 Test Item Value Reference [...] 0-0 (BEAKER) (test code = 413) Troponin [id number] 20:18:00 Test Item Value Reference Range Interpretation Comments Troponin I (test code = <0.01 0-0.03 89360-5) ALEX (test code = ALEX) Troponin I [...] tachyarrhythmia. Lab Interpretation (test Normal code = 96658-7) [facility] ValleyTROPONIN [id number] 20:18:00 Test Item Value Reference Range Interpretation [...] neurological disease, and persistent tachyarrhythmia.MR, BRAIN, WITHOUT [id number] 19:07:00Reason for exam:->Ischemic Stroke EvaluationFINAL REPORT MR, [...] Hernandez Verified Date/Time: 04/30/2019 19:07:03 Reading Location: [address] Neuro Reading Room MR brain without IV [id number] 19:07:00Interface, External Ris In - 04/30/2019 7:09 [...] Hernandez Verified Date/Time: 04/30/2019 19:07:03 Reading Location: [address] Neuro Reading [facility] HeartHemoglobin A1c - [id number] 10:33:00 Test Item Value Reference Range Interpretation Comments Hemoglobin A1C (test code = 4548-4) 6.6 % 4.3-6.1 H ALEX (test code = ALEX) Fasting Lab Interpretation (test code = Abnormal 78905-5) [facility]MOGLOBIN [id number] 10:33:00 Test Item Value Reference Range Interpretation Comments HEMOGLOBIN A1C (BEAKER) (test code = 6.6 % 4.3-6.1 H 368) FastingVitamin [id number] 09:00:00 Test Item Value Reference Range Interpretation Comments Vitamin B12 (test code = 654 pg/mL 023-658 4643-9) ALEX (test code = ALEX) Add on please to morning labsAdd on to morning labs Lab Interpretation (test Normal code = 70957-4) [facility]SH/Free T4 If [id number] 09:00:00 Test Item Value Reference Range Interpretation Comments TSH (test code = 16531-9) 0.69 0.35- 4.94 uIU/mL ALEX (test code = ALEX) Add on please to morning labsAdd on to morning labs Lab Interpretation (test Normal code = 59536-7) [facility]VITAMIN [id number] 09:00:00 Test Item Value Reference Range Interpretation Comments VITAMIN B12 (BEAKER) (test code = 654 pg/mL 213-816 774) Add on please to morning labsAdd on to morning labsTSH/FREE T4 IF INDICATED 2019-04-30 09:00:00 Test Item Value Reference Range Interpretation Comments THYROID STIMULATING HORMONE 0.69 uIU/mL 0.35-4.94 (BEAKER) (test code = 772) Add on please to morning labsAdd on to morning labsFasting lipid [id number] 07:30:00 Test Item Value Reference Range Interpretation Comments Triglycerides (test 57 mg/dL Specimen code = 2571-8) slightly hemolyzed Cholesterol (test 83 mg/dL Specimen code = 2093-3) slightly hemolyzed HDL (test code = 37 mg/dL 5-9) LDL Calculated (test 35 mg/dL code = 51489-9) ALEX (test code = Triglyceride ALEX) Reference Range: Low Risk <150 Borderline 150-199 High Risk 200-499 Very High Risk >=500 Cholesterol Reference Range: Low Risk <200 Borderline 200-239 High Risk >240 HDL Cholesterol Reference Range: Low Risk >=60 High Risk <40 LDL Cholesterol Reference Range: Optimal <100 Near Optimal 100-129 Borderline 130-159 High 160-189 Very High >=190 Fasting [facility] METABOLIC [id number] 07:30:00 Test Item Value Reference Range Interpretation [...] NOT APPLICABLE FOR DIALYSIS PATIEN TS. FastingLIPID [id number] 07:30:00 Test Item Value Reference Range Interpretation [...] 130-159 High 160-189 Very High >=190 FastingTROPONIN [id number] 07:28:00 Test Item Value Reference Range Interpretation [...] persistent tachyarrhythmia.FastingCBC with platelet count + automated [id number] 05:43:00 Test Item Value Reference Range Interpretation [...] 450 K/CU MM MPV (test code = 45001-5) 9.6 fL 9.4-12.3 nRBC (test code = [...] 2801) Lab Interpretation (test code = Abnormal 40515-5) [facility] W/PLT COUNT & AUTO [id number] 05:43:00 Test Item Value Reference Range Interpretation [...] (BEAKER) (test code = 2801) [place], ANGIOGRAM, [id number] 11:37:00Reason for exam:->TIAsFINAL REPORT November 22, 2017 [...] guidance and strict sterile technique a 4 Ethiopian femoral sheath was inserted into the right common femoral artery. Through the sheath a 4 Ethiopian vertebral catheter was then advanced over the [...] demonstrates a critical supraclinoid ICA stenosis of oywcxchbfjgov82%. There is delayed antegrade flow. The venous [...] MDReport Verified Date/Time: 11/22/2017 11:37:47 Reading Location: [facility] POCT- GLUCOSE [id number] 07:43:00 Test Item Value Reference Range Interpretation Comments POC-GLUCOSE METER 149 mg/dL 70-110 H TESTED AT [facility] 6720 (BEAKER) (test code = [facility] 1538) [address] [id number] 06:46:00 Test Item Value Reference Range Interpretation Comments MAGNESIUM (BEAKER) (test code = 2.0 mg/dL 1.6-2.6 627) BASIC METABOLIC [id number] 06:46:00 Test Item Value Reference Range Interpretation Comments SODIUM (BEAKER) 133 meq/L 136-145 L (test code = 381) POTASSIUM (BEAKER) 4.4 meq/L 3.5-5.1 (test code = 379) CHLORIDE (BEAKER) 99 meq/L 98-107 (test code = 382) CO2 (BEAKER) (test 25 meq/L 22-29 code = 355) BLOOD UREA NITROGEN 11 mg/dL 7-[address] ([facility]) (test code = 354) CREATININE (AKER) 0.65 mg/dL 0.57-1.25 (test code = 358) GLUCOSE RANDOM 162 mg/dL 70-105 H ([facility]) (test code = 652) CALCIUM (BEAKER) 9.5 mg/dL 8.4-10.2 (test code = 697) EGFR ([facility]) (test 87 mL/min/1.73 ESTIMA OMAR GFR IS code = 1092) sq m NOT ACCURATE CREATININE CLEARANCE IN PREDICTING GLOMERULAR FILTRATION RATE . ESTIMATED GFR I S NOT APPLICABLE FOR DIALYSIS PATIEN TS. [id number] 06:33:00 Test Item Value Reference Range Interpretation Comments PROTIME ([facility]) (test code = 15.5 seconds 11.7-14.7 H 759) INR ([facility]) (test code = 370) 1.2 <=5.9 PARTIAL THROMBOPLASTIN TIME 35.9 seconds 22.5-36.[address] ([facility]) (test code = 760) RECOMMENDED COUMADIN/WARFARIN INR THERAPY RANGESSTANDARD DOSE: 2.0 - 3.0 Includes: PROPHYLAXIS forvenous thrombosis, systemic embolization; TREATMENT for venous thrombosis and/or pulmonary embolus.HIGH RISK: Target INR is 2.5-3.5 for patients with mechanical heart valves.POCT-GLUCOSE [id number] 06:22:00 Test Item Value Reference Range Interpretation Comments POC-GLUCOSE METER 161 mg/dL 70-110 H TESTED AT [place] [address] ([facility]) (test code = [place] 1538) [address] POCT-GLUCOSE [id number] 02:08:00 Test Item Value Reference Range Interpretation Comments POC-GLUCOSE METER 182 mg/dL 70-110 H TESTED AT [place] [address] ([facility]) (test code = [place] 1538) [address] POCT-GLUCOSE [id number] 19:30:00 Test Item Value Reference Range Interpretation Comments POC-GLUCOSE METER 146 mg/dL 70-110 H TESTED AT [place] [address] ([facility]) (test code = [place] 1538) [address] CT, CAROTID, [id number] 14:54:00Please include aortaFINAL REPORT CT angiogram of [...] the left ICA terminus. There is also igbc-gw-lluzqvtf multifocal narrowing of the right carotid siphon. [...] MDReport Verified Date/Time: 11/21/2017 14:54:26 Reading Location: [facility] Radiology [facility] CT[facility]IO [id number] 14:54:00FINAL REPORT CT angiogram of the upper [...] the left ICA terminus. There is also brqv-bj-tpijmjmj multifocal narrowing of the right carotid siphon. [...] 11/21/2017 14:54:26 Reading Location: [facility] Radiology Reading Room POCT-GLUCOSE [id number] 11:50:00 Test Item Value Reference Range Interpretation Comments POC-GLUCOSE METER 153 mg/dL 70-110 H TESTED AT [place] [address] ([facility]) (test code = [place] 15[address] POCT-GLUCOSE [id number] 08:08:00 Test Item Value Reference Range Interpretation Comments POC-GLUCOSE METER 125 mg/dL 70-110 H TESTED AT [place] [address] (BEAKER) (test code = [place] 1538) [address] [id number] 06:43:00 Test Item Value Reference Range Interpretation Comments MAGNESIUM (BEAKER) (test code = 2.1 mg/dL 1.6-2.6 627) BASIC METABOLIC [id number] 06:43:00 Test Item Value Reference Range Interpretation Comments SODIUM (BEAKER) 136 meq/L 136-145 (test code = 381) POTASSIUM (BEAKER) 4.0 meq/L 3.5-5.1 (test code = 379) CHLORIDE (BEAKER) 101 meq/L 98-107 (test code = 382) CO2 (BEAKER) (test 27 meq/L - code = 355) BLOOD UREA NITROGEN 12 [...] FOR DIALYSIS PATIEN TS. TSH/FREE T4 IF [id number] 22:12:00 Test Item Value Reference Range Interpretation Comments THYROID STIMULATING HORMONE 4.66 uIU/mL 0.35-4.94 (BEAKER) (test code = 772) [id number] 21:54:00 Test Item Value Reference Range Interpretation Comments MAGNESIUM (BEAKER) (test code = 2.0 mg/dL 1.6-2.6 627) BASIC METABOLIC [id number] 21:54:00 Test Item Value Reference Range Interpretation Comments SODIUM (BEAKER) 134 meq/L 136-145 L (test code = 381) POTASSIUM (BEAKER) 4.1 meq/L 3.5-5.1 (test code = 379) CHLORIDE (BEAKER) 101 meq/L 98-107 (test code = 382) CO2 (BEAKER) (test 24 meq/L - code = 355) BLOOD UREA NITROGEN 11 mg/dL 7-21 (BEAKER) (test code = 354) CREATININE ([facility]) 0.65 mg/dL 0.57-1.25 (test code = 358) GLUCOSE RANDOM 126 mg/dL 70-105 H ([facility]) (test code = 652) CALCIUM (AKER) 9.5 mg/dL 8.4-10.2 (test code = 697) EGFR ([facility]) (test 87 mL/min/1.73 ESTIMA OMAR GFR IS code = 1092) sq m NOT ACCURATE CREATININE CLEARANCE IN PREDICTING GLOMERULAR FILTRATION RATE . ESTIMATED GFR I S NOT APPLICABLE FOR DIALYSIS PATIEN TS. LIPID [id number] 21:54:00 Test Item Value Reference Range Interpretation Comments TRIGLYCERIDES ([facility]) (test code = 70 mg/dL 540) CHOLESTEROL ([facility]) (test code = 101 mg/dL 631) HDL CHOLESTEROL ([facility]) (test code 39 mg/dL = 976) LDL CHOLESTEROL CALCULATED ([facility]) 48 mg/dL (test code = 633) Triglyceride Reference Range: Low Risk <150 Borderline 150-199 High Risk 200-499 Very High Risk >=500Cholesterol Reference Range: Low Risk <200 Borderline 200-239 High Risk >240HDL Cholesterol Reference Range: Low Risk >=60 High Risk <40LDL Cholesterol Reference Range: Optimal <100 Near Optimal 100-129 Borderline 130-159 High 160-189 Very High >=190POCT-GLUCOSE [id number] 21:35:00 Test Item Value Reference Range Interpretation Comments POC-GLUCOSE METER 128 mg/dL 70-110 H TESTED AT [place] [address] ([facility]) (test code = [facility] 1538) [address] POCT-GLUCOSE [id number] 17:55:00 Test Item Value Reference Range Interpretation Comments POC-GLUCOSE METER 113 mg/dL 70-110 H TESTED AT [place] [address] ([facility]) (test code = [facility] 1538) [address] POCT-GLUCOSE [id number] 12:32:00 Test Item Value Reference Range Interpretation Comments POC-GLUCOSE METER 120 mg/dL 70-110 H TESTED AT [place] [address] ([facility]) (test code = [facility] 1538) [address] MR, MRA, BRAIN, WITHOUT [id number] 11:33:00Reason for exam:->Ischemic Stroke EvaluationFINAL REPORT MRA Head and Neck CLINICAL HISTORY: CVA TECHNIQUE: MRA of the head utilizing 3-D emem-lp-jocyjb technique, with 3-D reconstructions. MRA of the neck utilizing 2-D and 3-D mrso-kr-ugcqxc technique, with 3-D reconstructions. COMPARISON: None FINDINGS: [...] There is no other evidence for a pokagon of Lawson proximal branch vessel occlusion. There [...] internal carotid artery siphon. Signed: Alexa Bolden [facility] Verified Date/Time: 11/20/2017 11:33:14 Reading Location: [facility] C013V Neuro Reading Room MR, MRA, NECK, WITHOUT IV [id number] 11:33:00Reason for exam:->Ischemic Stroke EvaluationFINAL REPORT MRA Head and Neck CLINICAL HISTORY: CVA TECHNIQUE: MRA of the head utilizing 3-D uyqa-yg-vdzxdc technique, with 3-D reconstructions. MRA of the neck utilizing 2- D and 3-D aznf-zk-hqipjf technique, with 3-D reconstructions. COMPARISON: None FINDINGS: [...] There is no other evidence for a pokagon of Lawson proximal branch vessel occlusion. There [...] internal carotid artery siphon. Signed: Alexa Bolden MDReport Verified Date/Time: 11/20/2017 11:33:14 Reading Location: [address] Neuro Reading Room MR, BRAIN, WITHOUT [id number] 11:05:00Reason for exam:->Ischemic Stroke EvaluationFINAL REPORT MRI [...] MDReport Verified Date/Time: 11/20/2017 11:05:05 Reading Location: [address] Neuro Reading Room HEMOGLOBIN [id number] 09:08:00 Test Item Value Reference Range Interpretation Comments HEMOGLOBIN A1C ([facility]) (test code = 6.1 % 4.3-6.1 368) POCT-GLUCOSE [id number] 08:27:00 Test Item Value Reference Range Interpretation Comments POC-GLUCOSE METER 125 mg/dL 70-110 H TESTED AT [facility] 6720 ([facility]) (test code = [facility] [facility] 1538) [address] TSH/FREE T4 IF [id number] 07:47:00 Test Item Value Reference Range Interpretation Comments THYROID STIMULATING HORMONE 5.97 uIU/mL 0.35-4.94 H (AKER) (test code = 772) VITAMIN [id number] 07:44:00 Test Item Value Reference Range Interpretation Comments VITAMIN B12 (BEAKER) (test code = 857 pg/mL 213-816 H 774) CBC W/PLT COUNT & AUTO [id number] 06:47:00 Test Item Value Reference Range Interpretation Comments WHITE BLOOD CELL COUNT (AKER) 8.3 K/ L 3.5-10.5 (test code = 775) RED BLOOD CELL COUNT (AKER) 4.11 M/ L 3.93-5.22 (test code = 761) HEMOGLOBIN (BEAKER) (test code = 13.4 GM/DL 11.2-15.7 410) HEMATOCRIT (BEAKER) (test code = 39.7 % 34.1-44.9 411) MEAN CORPUSCULAR VOLUME (AKER) 96.6 fL 79.4-94.8 H (test code = [...] EOSINOPHILS ABSOLUTE COUNT 0.35 K/ L 0.04-0.36 (BEAKER) (test code = 416) BASOPHILS ABSOLUTE COUNT (BEAKER) 0.04 K/ L 0.01-0.08 (test code = 417) IMMATURE GRANULOCYTES-RELATIVE 0 % 0-1 PERCENT (BEAKER) (test code = 2801) POCT-GLUCOSE [id number] 22:09:00 Test Item Value Reference Range Interpretation Comments POC-GLUCOSE METER 130 mg/dL 70-110 H TESTED AT [facility] 6720 (BEAKER) (test code = [place] 1538) [address]
--- OUTSIDE RECORDS SUMMARY | 2020-04-12 16:18 | XMS REPORT ---
[...] Code Onset Dates Condition Statu s Assessment Contact with and (suspected) Z20.828 Active exposure to other viral communicable diseases Assessment Ear ache H92.09 Active Assessment Upper respiratory tract infection, J06.9 Active unspecified type Problem Recurrent urinary tract infection N39.0 [...] End Status Dosage System Date Date Vitamin E [facility] 00049113245 400 UNIT Orally Active no t defined Rosuvastatin [facility] 40806666946 40 Active TAKE 1 Calcium TABLET BY MOUTH DAILY Levothyroxine [facility] 92161217470 125 MCG Orally Active 1 tablet Sodium Once a day in the morning on an empty stomach Eliquis [facility] 94870242953 5 MG Orally Active 1 tablet twice a day Plavix [facility] 22896949871 75 MG Orally Active 1 table t Once a day Sertraline HCl [facility] 36087055008 25 MG Orally Active 1 tablet Once a day Montelukast [facility] 95985587871 10 MG Orally September Active 1 t ablet Sodium Once a day 2019 Magnesium [facility] 55832985745 500 MG Orally Active not defined Cranberry [facility] [address] 425 MG Orally Active 1 ca psule Concentrate with meals Augmentin [facility] 62292532031 500-125 MG Mar 03Feb Active 1 table t Orally every 2019 17, hrs 2019 Omeprazole [facility] 41588107006 40 MG orally Active 1 EA CH daily in AM ONCE A DAY Vitamin D3 [facility] 74768537114 1000 UNIT Active 1 capsu le Orally Once a day Vitamin B-12 [facility] [address] Active not defined Omeprazole [facility] 43978689050 40 Active TAKE 1 CAPSULE BY MOUTH EVERY DAY Coreg [facility] 99949169045 25 MG Orally Active not defined Multivitamin [facility] [address] Active not defined Probiotic [facility] 91007146200 - Orally Active not defined Sodium Chloride [facility] [address]-82 1000 MG Orally Act marty 1 tablet every 6 hours Tylenol Arthritis NDC 0 Active not Pain defined Methenamine [facility] 04362113001 1 GM Orally Active 1 ta blet Hippurate Twice a day Crestor [facility] 82408763636 40 MG Active 1 EACH ONCE A DAY Carvedilol [facility] 00719400438 25 MG Orally Active as directed Levetiracetam [facility] 66494400942 250 MG Orally Active 1 tablet every 12 hrs Metformin HCl [facility] 69960068480 500 Active TAKE 1 TABLET BY MOUTH TWICE DAILY Metformin HCl [facility] 60249343643 500 MG Orally Active 1 tablet Twice a day with meals Cyanocobalamin [facility] [address]-60 1000 MCG/15ML Activ e 15 ml Orally Once a day Irbesartan ND 98818881492 150 MG Orally Active 1 t ablet Once a day HydrALAZINE HCl [facility] 20842488309 100 MG Orally December 05, Active as Three times a 2018 directed day HydrALAZINE HCl [facility] 76938014400 100 MG Orally Active 1 tablet Three times a with food day Amlodipine ND 20332356391 10 MG Orally Active 1 ta blet Besylate Once a day Estradiol [facility] 02760536128 0.1 MG/GM January Active as Vaginal Two 22, directed times a Week 2018 Trimethoprim ND 40960953440 100 MG Orally Active 1 tablet Once a day Rosuvastatin [facility] 87113022354 40 MG Active TAKE 1 Calcium TABLET BY MOUTH DAILY PredniSONE ND 70893257018 10 MG Orally Mar 03, Feb Active 2 ta blet Once a day 2019 20, daily x 5 2019 days then one tablet daily x 5 days Results No Known Results Summary Purpose eClinicalWorks Submission
--- OUTSIDE RECORDS SUMMARY | 2020-04-12 16:19 | XMS REPORT ---
[...] Code Onset Dates Condition Statu s Assessment Hyponatremia E87.1 Active Assessment Hypertension I10 Active Assessment Seizure disorder G40.909 Active Problem Recurrent urinary tract infection N39.0 [...] ve Problem Hospital discharge follow-up Z09 Active Assessment Low sodium levels E87.1 Active Problem Abnormal mammogram R92.8 Active Assessment Seasonal allergic rhinitis, J30.2 Active unspecified trigger Problem Type 2 diabetes E11.9 Active Problem Stenosis of left carotid artery I65.22 Active Assessment Hyperlipidemia E78.5 Active Problem Chronic fatigue R53.82 Active Problem Atherosclerosis I70.90 Active Problem Other speech disturbance R47.89 Act marty Medications Medication Code Code Instructions Start End Status Dosage System Date Date Tylenol Arthritis ND 0 Active not Pain defined Methenamine [facility] 87115964799 1 GM Orally Active 1 ta blet Hippurate Twice a day Irbesartan [facility] 71716655592 150 MG Orally Active 1 t ablet Once a day Vitamin B-12 [facility] [address] Active not defined Crestor [facility] 01404600825 40 MG Active 1 EACH ONCE A DAY Metformin HCl [facility] 66698649168 500 MG Orally Active 1 tablet Twice a day with meals Vitamin E [facility] 58599950767 400 UNIT Orally Active no t defined Omeprazole [facility] 27729584565 40 Active TAKE 1 CAPSULE BY MOUTH EVERY DAY Amlodipine [facility] 84047142422 10 MG Orally Active 1 ta blet Besylate Once a day Eliquis [facility] 29694401304 5 MG Orally Active 1 tablet twice a day Multivitamin [facility] [address] Active not defined Probiotic [facility] 10794361422 - Orally Active not defined Trimethoprim [facility] 47322022099 100 MG Orally Active 1 tablet Once a day Magnesium [facility] 51141659969 500 MG Orally Active not defined Estradiol [facility] 53350831002 0.1 MG/GM January Active as Vaginal Two 22, directed times a Week 2018 Levetiracetam [facility] 94940393778 250 MG Orally Active 1 tablet every 12 hrs Montelukast [facility] 12132946864 10 MG Orally September Active 1 t ablet Sodium Once a day 2019 Coreg [facility] 02423801433 25 MG Orally Active not defined Metformin HCl [facility] 25255090100 500 Active TAKE 1 TABLET BY MOUTH TWICE DAILY Rosuvastatin [facility] 78722345065 40 Active TAKE 1 Calcium TABLET BY MOUTH DAILY Sodium Chloride [facility] [address]-09 1000 MG Orally Act marty 1 tablet every 6 hours Sertraline HCl [facility] 27914171111 25 MG Orally Active 1 tablet Once a day Rosuvastatin [facility] 80664376474 40 MG Active TAKE 1 Calcium TABLET BY MOUTH DAILY Vitamin D3 [facility] 95286801067 1000 UNIT Active 1 capsu le Orally Once a day Cyanocobalamin [facility] [address]-07 1000 MCG/15ML Activ e 15 ml Orally Once a day Omeprazole [facility] 90196446529 40 MG orally Active 1 EA CH daily in AM ONCE A DAY Plavix [facility] 77995375696 75 MG Orally Active 1 table t Once a day Carvedilol [facility] 46987514610 25 MG Orally Active as directed HydrALAZINE HCl [facility] 36478226297 100 MG Orally December 05, Active as Three times a 2017 directed day HydrALAZINE HCl [facility] 58819325666 100 MG Orally Active 1 tablet Three times a with food day Levothyroxine [facility] 67644373190 125 MCG Orally Active 1 tablet Sodium Once a day in the morning on an empty stomach Sodium Chloride [facility] 68429622773 1 GM Orally Active TAKE 2 TABLET in AM and 1 tab EVERY 6 HOURS Sodium Chloride [facility] [address]-55 1000 MG Orally Mar 10Aug Act marty 1 tablet 5 times daily 2019 Cranberry [facility] [address] 425 MG Orally Active 1 ca psule Concentrate with meals Results No Known Results Summary Purpose eClinicalWorks Submission
--- OUTSIDE RECORDS SUMMARY | 2020-04-12 16:19 | XMS REPORT ---
:1935 Author Organization eClinicalWorks Care Team Providers Name Role Phone Britt, Na Provider Role Unavailable Allergies No Known Allergies Problems Problem Type Condition Code Onset Dates Condition Statu s Assessment Hyponatremia E87.1 Active Problem Recurrent urinary [...] disturbance R47.89 Act marty Medications Medication Code System Code Instructions Start End Date Status Dos age Date Sodium Chloride [facility] [address]1997-289 1000 MG Orally 5 Mar 10, Aug 12, Activ e 1 tablet 1-50 times daily 2019 2020 Results No Known Results Summary Purpose eClinicalWorks Submission
--- OUTSIDE RECORDS SUMMARY | 2020-04-12 16:19 | XMS REPORT ---
[...] Code Onset Dates Condition Statu s Assessment History of recurrent UTI (urinary Z87.440 Active tract infection) Assessment Lower urinary tract symptoms (LUTS) R39.9 [...] TIA (transient ischemic Z86.73 Active attack) Assessment Recurrent UTI N39.0 Active Problem Hospital discharge follow-up Z09 Active Problem Abnormal mammogram R92.8 Active Problem Type 2 diabetes E11.9 Active Problem Stenosis of left carotid artery I65.22 Active Problem Chronic fatigue R53.82 Active Problem Atherosclerosis I70.90 Active Problem Other speech disturbance R47.89 Act marty Medications Medication Code Code Instructions Start End Status Dosage System Date Date Montelukast [facility] 48616891304 10 MG Orally September Active 1 t ablet Sodium Once a day 2019 Omeprazole [facility] 21842583098 40 Active TAKE 1 CAPSULE BY MOUTH EVERY DAY Vitamin B-12 [facility] [address] Active not defined Methenamine [facility] 76187780686 1 GM Orally Active 1 ta blet Hippurate Twice a day Probiotic [facility] 49850370608 - Orally Active not defined Irbesartan [facility] 59067390195 150 MG Orally Active 1 t ablet Once a day Metformin HCl [facility] 73410996082 500 MG Orally Active 1 tablet Twice a day with meals Cyanocobalamin [facility] [address]-32 1000 MCG/15ML Activ e 15 ml Orally Once a day Estradiol [facility] 83391342661 0.1 MG/GM January Active as Vaginal Two 22, directed times a Week 2018 Carvedilol [facility] 05665405806 25 MG Orally Active as directed Magnesium [facility] 67218208844 500 MG Orally Active not defined Rosuvastatin [facility] 93796338619 40 Active TAKE 1 Calcium TABLET BY MOUTH DAILY Coreg [facility] 57720533058 25 MG Orally Active not defined Trimethoprim [facility] 02669124440 100 MG Orally Active 1 tablet Once a day PredniSONE [facility] 86586183586 10 MG Orally Mar 03Feb Active 2 ta blet Once a day 2019 20, daily x 5 2019 days then one tablet daily x 5 days Levetiracetam [facility] 01621656893 250 MG Orally Active 1 tablet every 12 hrs Tylenol Arthritis NDC 0 Active not Pain defined Omeprazole [facility] 18584736263 40 MG orally Active 1 EA CH daily in AM ONCE A DAY Metformin HCl [facility] 91786998528 500 Active TAKE 1 TABLET BY MOUTH TWICE DAILY HydrALAZINE HCl [facility] 51010389907 100 MG Orally Active 1 tablet Three times a with food day Plavix [facility] 62173950494 75 MG Orally Active 1 table t Once a day Sertraline HCl [facility] 92266922091 25 MG Orally Active 1 tablet Once a day Augmentin [facility] 88758447431 500-125 MG Mar 03Feb Active 1 table t Orally every 12 2019 17, hrs 2019 HydrALAZINE HCl [facility] 46323000872 100 MG Orally December 05, Active as Three times a 2017 day Levothyroxine [facility] 94761951007 125 MCG Orally Active 1 tablet Sodium Once a day in the morning on an empty stomach Sodium Chloride [facility] [address]-03 1000 MG Orally Act marty 1 tablet every 6 hours Rosuvastatin [facility] 32992761418 40 MG Active TAKE 1 Calcium TABLET BY MOUTH DAILY Crestor [facility] 55381685795 40 MG Active 1 EACH ONCE A DAY Amlodipine [facility] 24213577695 10 MG Orally Active 1 ta blet Besylate Once a day Vitamin D3 [facility] 19140401493 1000 UNIT Active 1 capsu le Orally Once a day Multivitamin [facility] [address] Active not defined Cranberry [facility] [address]51 425 MG Orally Active 1 ca psule Concentrate with meals Eliquis [facility] 13988871461 5 MG Orally Active 1 tablet twice a day Vitamin E [facility] 22080806193 400 UNIT Orally Active no t defined Results No Known Results Summary Purpose eClinicalWorks Submission
[2020-04-12] MEDS ORDERED: CEFAZOLIN/SWI 1gm 1 GM/10 ML SYR ONE (16:56)
[2020-04-12] MEDS ORDERED: NA CHLORIDE 0.9% 1,000 ML ONE (16:56)
[2020-04-12 17:03] LABS: Protime INR 1.45
[2020-04-12 17:04] LABS: Absolute Lymphocytes (CBC) 2.2 K/uL (0.7-4.9); Basophils % 0.7 % (0-1.3); Hematocrit 39.7 % (36.0-45.0); Lymphocytes % 35.2 % (15.3-44.8); MPV 8.2 fL (7.6-11.3); RBC Red Blood Cell Count 4.07 M/uL (3.86-4.86)
[2020-04-12 17:15] LABS: ALT/SGPT 26 U/L (12-78); AST/SGOT 20 U/L (15-37); Albumin 3.9 g/dL (3.4-5.0); Alkaline Phosphatase 118 U/L (45-117); BUN Blood Urea Nitrogen 13 mg/dL (7-18); Bicarbonate 24 mmol/L (21-32); Bilirubin Direct 0.2 mg/dL (0-0.2); Bilirubin Total 0.5 mg/dL (0.2-1.0); Glucose Level 147 mg/dL (74-106); Magnesium 2.2 mg/dL (1.8-2.4); NT PRO-BNP 723 pg/mL (<450); Potassium 4.3 mmol/L (3.5-5.1); Protein, Total 7.8 g/dL (6.4-8.2); Sodium Level 136 mmol/L (136-145); Troponin (Emerg Dept Use Only) < 0.02 ng/mL (0.0-0.045)
--- NOTE | 2020-04-12 17:51 | RAD REPORT ---
EXAM DESCRIPTION: CT - Head C Spine Mpr Wo Con - 04/12/2020 5:11 pm CLINICAL HISTORY: Head and neck injury status post fall. Head and neck pain COMPARISON: February 2020 TECHNIQUE: Computed axial tomography of the head and cervical spine was obtained. Sagittal and coronal reconstruction was performed. All CT scans are performed using dose optimization technique as appropriate and may include automated exposure control or mA/KV adjustment according to patient size. FINDINGS: Frontal scalp hematoma An intracranial bleed is not seen. The ventricles are normal in caliber. An extra-axial fluid collect ion is not noted.Fluid within the visualized sinuses and mastoids is not seen A cervical fracture is not visualized. No dislocation is noted. IMPRESSION: No acute intracranial abnormality is seen. A cervical fracture is not visualized. If the patient continues to have symptoms to suggest intracra nial /spinal cord pathology then MRI would be recommended
--- NOTE | 2020-04-12 17:55 | RAD REPORT ---
EXAM DESCRIPTION: CT - Facial Bones W/ Mpr - 04/12/2020 5:11 pm CLINICAL HISTORY: Facial injury status post fall. Facial pain COMPARISON: 2014 TECHNIQUE: Computed axial tomography of the face was obtained. Coronal and sagittal reconstruction w as performed. All CT scans are performed using dose optimization technique as appropriate and may include automated exposure control or mA/KV adjustment according to patient size. FINDINGS: Soft tissue swelling nose/ frontal scalp Nondisplaced nasal bone fracture A TMJ dislocation is not noted. The globes are intact. Fluid within the sinuses is not seen. IMPRESSION: Nondisplaced nasal bone fracture
--- NOTE | 2020-04-12 17:58 | RAD REPORT ---
EXAM DESCRIPTION: RAD - Knee Right 3 View - 04/12/2020 5:35 pm CLINICAL HISTORY: Right knee pain status post injury FINDINGS: Anterior soft tissue swelling Osteoporosis. Chondrocalcinosis No fracture or dislocation is seen.
--- NOTE | 2020-04-12 17:59 | RAD REPORT ---
EXAM DESCRIPTION: Diane Single View04/12/2020 5:35 pm CLINICAL HISTORY: Chest pain COMPARISON: February 2020 FINDINGS: The lungs appear clear of acute infiltrate. The heart is mildly enlarged. Postsurgical changes involve the chest. IMPRESSION: No acute abnormalities displayed
--- NOTE | 2020-04-12 18:03 | RAD REPORT ---
EXAM DESCRIPTION: RAD - Knee Left 3 View - 04/12/2020 5:35 pm CLINICAL HISTORY: Left knee pain status post injury FINDINGS: Bones are osteoporotic No fracture or dislocation is visualized There does appear to be a lipohemarthrosis. In the setting of trauma this may indicate an occult frac ture
--- NOTE | 2020-04-12 18:35 | ER ---
Nurse's Notes [facility] Name: Radha Lara Age: 84 yrs Sex: Female : 1935 Arrival Date: 04/12/2020 Time: 16:13 Bed 3 Private MD: Diagnosis: Fall due to bumping against object;Fracture of nasal bones;Atrial fibrillation and flutter;Superficial injury of head-LARGE HEMATOMA, FOREHEAD;Contusion of left knee;Contusion of right knee;Laceration without foreign body of other part of head-SMALL NASAL BRIDGE LACERATION Presentation: 04/12 16:17 Chief complaint: EMS states: pt stumbled at home, tripped over her feet, fell forward, iw hit face on ground, no LOC, on eliquis, has bruising and swelling to face , also has pain to left knee. Mechanism of Injury: Fall from standing position. Trauma event details: Injury occurred in the [facility]. 16:17 Acuity: YOLANDE 2 iw 16:17 Method Of Arrival: EMS: [facility] iw 16:20 Care prior to arrival: Bleeding of injury controlled. iw 16:34 Coronavirus screen: At this time, the client does not indicate any symptoms associated iw with coronavirus-19. Ebola Screen: Patient negative for fever greater than or equal to 101.5 degrees Fahrenheit, and additional compatible Ebola Virus Disease symptoms Patient denies exposure to infectious person. Patient denies travel to an Ebola-affected area in the 21 days before illness onset. No symptoms or risks identified at this time. Initial Sepsis Screen: Does the patient meet any 2 criteria? No. Patient's initial sepsis screen is negative. Does the patient have a suspected source of infection? No. Patient's initial sepsis screen is negative. Risk Assessment: Do you want to hurt yourself or someone else? Patient reports no desire to harm self or others. Onset of symptoms was April 12, 2020. Trauma Activation: Alert Physician: ED Physician; Name: Dr. Simmons; Notified At: 16:12; Arrived At: 16:12 Physician: General Surgeon; Name: N/A; Notified At: 16:12; Arrived At: Physician: Radiology; Name: Betty; Notified At: 16:12; Arrived At: 16:12 Physician: Respiratory; Name: N/A; Notified At: 16:12; Arrived At: Physician: Lab; Name: N/A; Notified At: 16:12; Arrived At: Historical: - Allergies: 16:27 Aspirin; iw 16:27 Clonidine; iw 16:27 Codeine; iw 16:27 Ibuprofen; iw 16:27 Lisinopril; iw 16:27 Iodinated Contrast Media - IV Dye; iw 16:27 Niacin; iw 16:27 Nitrofurantoin; iw 16:27 nitrous oxide; iw 16:27 vicoden; iw 16:27 Zoloft; iw - Home Meds: 16:34 carvedilol 12.5 mg oral tab 2 times per day [Active]; irbesartan 150 mg Oral tab 1 tab iw once daily [Active]; amlodipine 10 mg oral tab once daily [Active]; hydralazine 100 mg Oral tab 3 times per day [Active]; Eliquis 5 mg Oral tab 2 times per day [Active]; metformin 500 mg Oral Tb24 1 tab 2 times per day [Active]; Crestor 40 mg Oral tab once daily [Active]; Plavix 75 mg Oral tab 1 tab once daily [Active]; levothyroxine 75 mcg tab 1 tab once daily [Active]; Probiotic Oral daily [Active]; Multiple Vitamins Oral tab daily [Active]; vitamin E Oral once daily [Active]; magnesium oxide 500 mg Oral tab daily [Active]; pantoprazole 40 mg oral TbEC 1 tab once daily [Active]; Vimpat 50 mg oral tab daily [Active]; sodium chloride 1 gram oral tab 5 times per day [Active]; - PMHx: 16:27 acid reflux; ADD/ADHD; Atrial Fib; CVA; Diabetes - NIDDM; Hyperlipidemia; Hypertension; iw Kidney stones; PE; TIA; UTI; Sleep Apnea; - PSHx: 16:27 Tonsillectomy; Hysterectomy; Cholecystectomy; CABG; iw - Social history:: Smoking status: Patient denies any tobacco usage or history of. - Immunization history: Last tetanus immunization: unknown. - Family history:: not pertinent. Screenin:10 Abuse screen: Denies threats or abuse. Denies injuries from another. Tuberculosis jl7 screening: No symptoms or risk factors identified. 16:30 Nutritional screening: No deficits noted. Fall Risk Fall in past 12 months (25 points). jl7 No secondary diagnosis (0 pts). IV access (20 points). Ambulatory Aid- None/Bed Rest/Nurse Assist (0 pts). Gait- Weak (10 pts.). Mental Status- Oriented to own ability (0 pts). Total Glez Fall Scale indicates High Risk Score (45 or more points). Fall prevention measures have been instituted. Side Rails Up X 2 Placed Close to Nursing Station Frequent Obs/Assessments Occuring Family Present and informed to notify staff if the need to leave the bedside As available patient and family educated on Fall Prevention Program and Strategies. Primary Survey: 16:10 NO uncontrolled hemorrhage observed. Breathing/Chest: Respiratory pattern: regular, jl7 Respiratory effort: spontaneous, unlabored. Circulation: Skin color: pink, Skin temperature: warm. Disability Alert. Exposure/Environment: All clothing and personal items were removed. Forensic evidence collection is not deemed to be indicated at this time. Items placed in patient belonging bag. There is no evidence of uncontrolled external bleeding. Obvious injury(ies) are noted at this time: bruising and swelling noted to upper lip, nose, bilateral eyes and forehead. Small abrasion noted to bridge of nose. 16:45 Reassessment Breathing/Chest Respiratory pattern Regular Respiratory effort Spontaneous jl7 Unlabored Chest inspection Symmetrical Circulation Color [place] Temperature Warm Disability Alert. Secondary Survey: 16:10 Musculoskeletal: Swelling present in right knee and left knee denies tenderness on jl7 palpation of posterior neck. Musculoskeletal: Swelling present in right hand and left hand rings removed and given to daughter. Assessment: 16:10 General: Appears in no apparent distress. uncomfortable, Behavior is calm, cooperative, jl7 appropriate for age. Pain: Complains of pain in mouth and nose and forehead Quality of pain is described as pressure, Is continuous. Neuro: Level of Consciousness is awake, alert, obeys commands, Oriented to person, place, time, situation. EENT: Oral mucosa is dry. Cardiovascular: Denies chest pain, lightheadedness, shortness of breath, Patient's skin is warm and dry. Respiratory: Airway is patent Respiratory effort is even, unlabored, Respiratory pattern is regular, symmetrical, Denies shortness of breath. Derm: Skin is pink, warm \T\ dry. Bruising that is bright red, dark purple, on face. Musculoskeletal: Swelling present in face. 17:00 Reassessment: Patient appears in no apparent distress at this time. No changes from jl7 previously documented assessment. Patient and/or family updated on plan of care and expected duration. Pain level reassessed. Patient is alert, oriented x 3, equal unlabored respirations, skin warm/dry/pink. 18:00 Reassessment: Patient appears in no apparent distress at this time. No changes from jl7 previously documented assessment. Patient and/or family updated on plan of care and expected duration. Pain level reassessed. Patient is alert, oriented x 3, equal unlabored respirations, skin warm/dry/pink. 19:21 Reassessment: Patient appears in no apparent distress at this time. Patient and/or mg2 family updated on plan of care and expected duration. Pain level reassessed. Patient is alert, oriented x 3, equal unlabored respirations, skin warm/dry/pink. 20:32 Reassessment: Patient and/or family updated on plan of care and expected duration. Pain ea level reassessed. Patient is alert, oriented x 3, equal unlabored respirations, skin warm/dry/pink. 20:45 Reassessment: Report given to Patricia ULLOA. Pt admitted to second floor. Pt left ED via ea stretcher per tech. Pt left ED ambulatory tolerating well. Vital Signs: 16:15 BP 159 / 102; Pulse 69; Resp 15 S; Temp 97.9(TE); Pulse Ox 99% on R/A; Weight 68.04 kg; jl7 Pain 1/10; 17:00 BP 164 / 66; Pulse 77; Resp 17 S; Pulse Ox 98% on R/A; jl7 18:00 BP 160 / 79; Pulse 69; Resp 15; Pulse Ox 99% ; jl7 19:21 BP 173 / 65; Pulse 71; Resp 17; Pulse Ox 92% on R/A; mg2 20:32 BP 143 / 61; Pulse 69; Resp 18; Pulse Ox 98% ; ea Debra Coma Score: 16:15 Eye Response: spontaneous(4). Verbal Response: oriented(5). Motor Response: obeys jl7 commands(6). Total: 15. 17:00 Eye Response: spontaneous(4). Verbal Response: oriented(5). Motor Response: obeys jl7 commands(6). Total: 15. 18:00 Eye Response: spontaneous(4). Verbal Response: oriented(5). Motor Response: obeys jl7 commands(6). Total: 15. Trauma Score (Adult): 16:15 Eye Response: spontaneous(1); Verbal Response: oriented(1); Motor Response: obeys jl7 commands(2); Systolic BP: > 89 mm Hg(4); Respiratory Rate: 10 to 29 per min(4); [place] Score: 15; Trauma Score: 12 ED Course: 16:10 Patient has correct armband on for positive identification. Placed in gown. Bed in low jl7 position. Call light in reach. Side rails up X2. 16:10 Patient maintains SpO2 saturation greater than 95% on room air. Thermoregulation: warm jl7 blanket given to patient. 16:13 Patient arrived in ED. aa5 16:15 Vicente Villatoro, LAILA is Primary Nurse. jl7 16:20 Triage completed. iw 16:22 Hari Simmons MD is Attending Physician. iron 16:30 rigger supervisor on. Pulse ox on. NIBP on. Warm blanket given. jl7 16:30 Inserted saline lock: 20 gauge in left antecubital area, using aseptic technique. Blood jl7 collected. 16:34 Arm band placed on. iw 17:00 Initial lab(s) drawn, by wv, sent to lab. Urine collected: clean catch specimen, clear, jl7 EKG done, by ED staff, reviewed by Hari Simmons MD. 17:11 CT Facial Bones W/O Con In Process Unspecified. EDMS 17:11 Head C Spine Mpr Wo Con In Process Unspecified. EDMS 17:35 XRAY Chest (1 view) In Process Unspecified. EDMS 17:35 Knee Left 3 View XRAY In Process Unspecified. EDMS 17:35 Knee Right 3 View XRAY In Process Unspecified. EDMS 18:32 Cheikh Hammond MD is Hospitalizing Provider. iron 19:09 No provider procedures requiring assistance completed. Patient admitted, IV remains in jl7 place. intact, No redness/swelling at site. Administered Medications: 17:00 Drug: Ancef 1 grams Route: IVPB; Site: left antecubital; jl7 17:04 Follow up: Response: No adverse reaction; IV Status: Completed infusion jl 17:00 Drug: NS 0.9% 500 ml Route: IV; Rate: bolus; Site: left antecubital; jl7 17:30 Follow up: Response: No adverse reaction; IV Status: Completed infusion; IV Intake: jl7 500ml 17:30 Drug: NS 0.9% 1000 ml Route: IV; Rate: 125 ml/hr; Site: left antecubital; jl7 19:12 Follow up: IV Status: Infusion continued upon admission jl7 19:20 Drug: Tetanus-Diphtheria Toxoid Adult 0.5 ml {Twine Winder: [employer]. Exp: mg2 09/13/2022. Lot #: [id number]. } Route: IM; Site: right deltoid; 20:46 Follow up: Response: No adverse reaction ea 19:21 Drug: fentaNYL (PF) 25 mcg Route: IVP; Site: left antecubital; mg2 20:46 Follow up: Response: No adverse reaction; Pain is decreased; RASS: Alert and Calm (0) ea 19:21 Drug: Zofran (Ondansetron) 4 mg Route: IVP; Site: left antecubital; mg2 20:46 Follow up: Response: No adverse reaction ea Intake: 17:30 IV: 500ml; Total: 500ml. jl7 19:40 PO: 0ml; Total: 500ml. ea Outcome: 18:34 Decision to Hospitalize by Provider. iron 19:39 Instructed on the need for admit, Demonstrated understanding of instructions. ea 19:40 pt admittedPatient's length of stay extended due to ea 20:44 Admitted to Med/surg accompanied by tech, room 223, with chart, Report called to ea Receiving nurse on second floor 20:44 Condition: stable 20:46 Patient left the ED. ea Signatures: Dispatcher [employer] EDID Hari Simmons MD MD cha Williams, Irene RN Guerda Momin, RN RN Vicente Nazario RN RN jl7 Antunez, Elena, RN RN ea Gardose, Michele, RN RN mg2 Corrections: (The following items were deleted from the chart) 16:19 16:14 Guerda Ku, RN is Primary Nurse. kely aa5 16:19 16:15 Primary Nurse role handed off by Ku, Guerda, RN jl7 aa5
--- NOTE | 2020-04-12 18:35 | EDPHYS ---
Physician Documentation [facility] Name: Radha Lara Age: 84 yrs Sex: Female : 1935 Arrival Date: 04/12/2020 Time: 16:13 Bed 3 Private MD: ED Physician Hari Simmons HPI: 04/12 16:29 This 84 yrs old Female presents to ER via EMS with complaints of Fall Injury. iron 16:29 Details of fall: The patient fell from an upright position, while walking. Onset: The iron symptoms/episode began/occurred just prior to arrival. Associated injuries: The patient sustained injury to the head, neck injury, face, abrasion, contusion, deformity, ecchymosis, hematoma, painful injury, swelling. Severity of symptoms: At their worst the symptoms were mild, moderate, in the emergency department the symptoms have improved, mildly. The patient has not experienced similar symptoms in the past. Historical: - Allergies: 16:27 Aspirin; iw 16:27 Clonidine; iw 16:27 Codeine; iw 16:27 Ibuprofen; iw 16:27 Lisinopril; iw 16:27 Iodinated Contrast Media - IV Dye; iw 16:27 Niacin; iw 16:27 Nitrofurantoin; iw 16:27 nitrous oxide; iw 16:27 vicoden; iw 16:27 Zoloft; iw - Home Meds: 16:34 carvedilol 12.5 mg oral tab 2 times per day [Active]; irbesartan 150 mg Oral tab 1 tab iw once daily [Active]; amlodipine 10 mg oral tab once daily [Active]; hydralazine 100 mg Oral tab 3 times per day [Active]; Eliquis 5 mg Oral tab 2 times per day [Active]; metformin 500 mg Oral Tb24 1 tab 2 times per day [Active]; Crestor 40 mg Oral tab once daily [Active]; Plavix 75 mg Oral tab 1 tab once daily [Active]; levothyroxine 75 mcg tab 1 tab once daily [Active]; Probiotic Oral daily [Active]; Multiple Vitamins Oral tab daily [Active]; vitamin E Oral once daily [Active]; magnesium oxide 500 mg Oral tab daily [Active]; pantoprazole 40 mg oral TbEC 1 tab once daily [Active]; Vimpat 50 mg oral tab daily [Active]; sodium chloride 1 gram oral tab 5 times per day [Active]; - PMHx: 16:27 acid reflux; ADD/ADHD; Atrial Fib; CVA; Diabetes - NIDDM; Hyperlipidemia; Hypertension; iw Kidney stones; PE; TIA; UTI; Sleep Apnea; - PSHx: 16:27 Tonsillectomy; Hysterectomy; Cholecystectomy; CABG; iw - Social history:: Smoking status: Patient denies any tobacco usage or history of. - Immunization history: Last tetanus immunization: unknown. - Family history:: not pertinent. ROS: 16:29 Constitutional: Negative for fever, chills, and weight loss, Eyes: Negative for injury, iron pain, redness, and discharge, Neck: Negative for injury, pain, and swelling, Cardiovascular: Negative for chest pain, palpitations, and edema, Respiratory: Negative for shortness of breath, cough, wheezing, and pleuritic chest pain, Abdomen/GI: Negative for abdominal pain, nausea, vomiting, diarrhea, and constipation, Back: Negative for injury and pain, : Negative for injury, bleeding, discharge, and swelling, MS/Extremity: Negative for injury and deformity, Skin: Negative for injury, rash, and discoloration, Neuro: Negative for headache, weakness, numbness, tingling, and seizure, Psych: Negative for depression, anxiety, suicide ideation, homicidal ideation, and hallucinations, Allergy/Immunology: Negative for hives, rash, and allergies, Endocrine: Negative for neck swelling, polydipsia, polyuria, polyphagia, and marked weight changes, Hematologic/Lymphatic: Negative for swollen nodes, abnormal bleeding, and unusual bruising. Exam: 16:29 Constitutional: This is a well developed, well nourished patient who is awake, alert, iron and in no acute distress. Eyes: Pupils equal round and reactive to light, extra-ocular motions intact. Lids and lashes normal. Conjunctiva and sclera are non-icteric and not injected. Cornea within normal limits. Periorbital areas with no swelling, redness, or edema. ENT: Nares patent. No nasal discharge, no septal abnormalities noted. Tympanic membranes are normal and external auditory canals are clear. Oropharynx with no redness, swelling, or masses, exudates, or evidence of obstruction, uvula midline. Mucous membranes moist. Neck: Trachea midline, no thyromegaly or masses palpated, and no cervical lymphadenopathy. Supple, full range of motion without nuchal rigidity, or vertebral point tenderness. No Meningismus. Chest/axilla: Normal chest wall appearance and motion. Nontender with no deformity. No lesions are appreciated. Cardiovascular: Regular rate and rhythm with a normal S1 and S2. No gallops, murmurs, or rubs. Normal PMI, no JVD. No pulse deficits. Respiratory: Lungs have equal breath sounds bilaterally, clear to auscultation and percussion. No rales, rhonchi or wheezes noted. No increased work of breathing, no retractions or nasal flaring. Abdomen/GI: Soft, non-tender, with normal bowel sounds. No distension or tympany. No guarding or rebound. No evidence of tenderness throughout. Back: No spinal tenderness. No costovertebral tenderness. Full range of motion. Female : Normal external genitalia. Neuro: Awake and alert, GCS 15, oriented to person, place, time, and situation. Cranial nerves II-XII grossly intact. Motor strength 5/5 in all extremities. Sensory grossly intact. Cerebellar exam normal. Normal gait. Psych: Awake, alert, with orientation to person, place and time. Behavior, mood, and affect are within normal limits. 16:29 Skin: injury, abrasion(s), contusion(s), that are deep, of the forehead, right eye, nose, left eye and mouth, HEMATOMAS , BOTH KNEES, LEFT KNEE MORE PAINFUL THAN RIGHT KNEE. 18:36 ECG was reviewed by the Attending Physician. iron Vital Signs: 16:15 BP 159 / 102; Pulse 69; Resp 15 S; Temp 97.9(TE); Pulse Ox 99% on R/A; Weight 68.04 kg; jl7 Pain 1/10; 17:00 BP 164 / 66; Pulse 77; Resp 17 S; Pulse Ox 98% on R/A; jl7 18:00 BP 160 / 79; Pulse 69; Resp 15; Pulse Ox 99% ; jl7 19:21 BP 173 / 65; Pulse 71; Resp 17; Pulse Ox 92% on R/A; mg2 20:32 BP 143 / 61; Pulse 69; Resp 18; Pulse Ox 98% ; ea [place] Coma Score: 16:15 Eye Response: spontaneous(4). Verbal Response: oriented(5). Motor Response: obeys jl7 commands(6). Total: 15. 17:00 Eye Response: spontaneous(4). Verbal Response: oriented(5). Motor Response: obeys jl7 commands(6). Total: 15. 18:00 Eye Response: spontaneous(4). Verbal Response: oriented(5). Motor Response: obeys jl7 commands(6). Total: 15. Trauma Score (Adult): 16:15 Eye Response: spontaneous(1); Verbal Response: oriented(1); Motor Response: obeys jl7 commands(2); Systolic BP: > 89 mm Hg(4); Respiratory Rate: 10 to 29 per min(4); Debra Score: 15; Trauma Score: 12 MDM: 16:22 Patient medically screened. [facility] 16:33 Differential diagnosis: abrasion, closed head injury, contusion, fracture, multiple iron trauma, sprain, strain. Data reviewed: vital signs, nurses notes, lab test result(s), EKG, radiologic studies, CT scan, plain films. Data interpreted: environmental monitoring technician: rate is 75 beats/min, rhythm is regular, Pulse oximetry: on room air is 96 %. Test interpretation: by ED physician or midlevel provider: ECG, plain radiologic studies. Counseling: I had a detailed discussion with the patient and/or guardian regarding: the historical points, exam findings, and any diagnostic results supporting the discharge/admit diagnosis, the presence of at least one elevated blood pressure reading (>120/80) during this emergency department visit, lab results, radiology results, the need for outpatient follow up. 04/12 16:29 Order name: Basic Metabolic Panel; Complete Time: 18:30 [facility] 04/12 16:29 Order name: CBC with Diff; Complete Time: 17:14 [facility] 04/12 16:29 Order name: LFT's; Complete Time: 18:30 [facility] 04/12 16:29 Order name: Magnesium; Complete Time: 18:30 [facility] 04/12 16:29 Order name: NT PRO-BNP; Complete Time: 18:30 [facility] 04/12 16:29 Order name: PT-INR; Complete Time: 17:14 [facility] 04/12 16:24 Order name: CT Facial Bones W/O Con; Complete Time: 18:30 04/12 16:29 Order name: Troponin (emerg Dept Use Only); Complete Time: 18:30 [facility] 04/12 16:29 Order name: XRAY Chest (1 view); Complete Time: 18:30 [facility] 04/12 16:29 Order name: Knee Left 3 View XRAY; Complete Time: 18:30 [facility] 04/12 16:29 Order name: Knee Right 3 View XRAY; Complete Time: 18:30 [facility] 04/12 19:23 Order name: Urine Dipstick--Ancillary (enter results) 04/12 16:29 Order name: EKG; Complete Time: 16:30 [facility] 04/12 16:29 Order name: Cardiac monitoring; Complete Time: 19:11 [facility] 04/12 16:29 Order name: EKG - Nurse/Tech; Complete Time: 19:11 [facility] 04/12 16:29 Order name: IV Saline Lock; Complete Time: 19:11 [facility] 04/12 16:29 Order name: Labs collected and sent; Complete Time: 19:11 [facility] 04/12 16:29 Order name: O2 Per Protocol; Complete Time: 19:11 [facility] 04/12 16:29 Order name: O2 Sat Monitoring; Complete Time: 19:11 [facility] 04/12 16:29 Order name: Ice pack; Complete Time: 19:03 [facility] 04/12 16:29 Order name: Urine Dipstick-Ancillary (obtain specimen); Complete Time: 19:21 [facility] 04/12 16:29 Order name: Head C Spine Mpr Wo Con; Complete Time: 18:30 EDMS EC:36 Rate is 79 beats/min. Rhythm is irregular. QRS [place] is Normal. [place] interval is normal. [facility] QRS interval is normal. QT interval is normal. No Q waves. T waves are Normal. No ST changes noted. Clinical impression: Atrial Fibrillation and No evidence of ischemia. Interpreted by me. Reviewed by me. Administered Medications: 17:00 Drug: Ancef 1 grams Route: IVPB; Site: left antecubital; jl7 17:04 Follow up: Response: No adverse reaction; IV Status: Completed infusion jl7 17:00 Drug: NS 0.9% 500 ml Route: IV; Rate: bolus; Site: left antecubital; jl7 17:30 Follow up: Response: No adverse reaction; IV Status: Completed infusion; IV Intake: jl7 500ml 17:30 Drug: NS 0.9% 1000 ml Route: IV; Rate: 125 ml/hr; Site: left antecubital; jl 19:12 Follow up: IV Status: Infusion continued upon admission [facility] 19:20 Drug: Tetanus-Diphtheria Toxoid Adult 0.5 ml {[employer]: [employer]. Exp: mg2 09/13/2022. Lot #: [id number]. } Route: IM; Site: right deltoid; 20:46 Follow up: Response: No adverse reaction ea 19:21 Drug: fentaNYL (PF) 25 mcg Route: IVP; Site: left antecubital; mg2 20:46 Follow up: Response: No adverse reaction; Pain is decreased; RASS: Alert and Calm (0) ea 19:21 Drug: Zofran (Ondansetron) 4 mg Route: IVP; Site: left antecubital; mg2 20:46 Follow up: Response: No adverse reaction ea Disposition: 04/12/20 18:34 Hospitalization ordered by Cheikh Hammond for Observation. Preliminary diagnosis are Fall due to bumping against object, Fracture of nasal bones, Atrial fibrillation and flutter, Superficial injury of head - LARGE HEMATOMA, FOREHEAD, Contusion of left knee, Contusion of right knee, Laceration without foreign body of other part of head - SMALL NASAL BRIDGE LACERATION. - Bed requested for Telemetry/MedSurg (observation). - Status is Observation. ea - Condition is Fair. - Problem is new. - Symptoms have improved. Signatures: Dispatcher [employer] EDMS Hari Simmons MD MD cha Williams, Irene, RN RN iw Garcia, Cindy, RN RN cg Leal, Jahala, RN RN jl7 Shilpa Brewer RN RN ea Gardose, Michele, RN RN mg2 Corrections: (The following items were deleted from the chart) 16:29 16:25 Head Brain Wo Cont+CT.RAD.BRZ ordered. EDMS EDMS 16:30 16:25 C Spine Wo Con+CT.RAD.BRZ ordered. EDMI EDMS 19:36 18:34 Hospitalization Ordered by Cheikh Hammond MD for Observation. Preliminary cg diagnosis is Fall due to bumping against object; Fracture of nasal bones; Atrial fibrillation and flutter; Superficial injury of head - LARGE HEMATOMA, FOREHEAD; Contusion of left knee; Contusion of right knee; Laceration without foreign body of other part of head - SMALL NASAL BRIDGE LACERATION. Bed requested for Telemetry/MedSurg (observation). Status is Observation. Condition is Fair. Problem is new. Symptoms have improved. iron 20:46 19:36 04/12/2020 18:34 Hospitalization Ordered by Cheikh Hammond MD for Observation. ea Preliminary diagnosis is Fall due to bumping against object; Fracture of nasal bones; Atrial fibrillation and flutter; Superficial injury of head - LARGE HEMATOMA, FOREHEAD; Contusion of left knee; Contusion of right knee; Laceration without foreign body of other part of head - SMALL NASAL BRIDGE LACERATION. Bed requested for Telemetry/MedSurg (observation). Status is Observation. Condition is Fair. Problem is new. Symptoms have improved. cg
[2020-04-12] MEDS ORDERED: TETANUS & DIPHTHERIA TOX,ADULT 0.5 ML VIAL ONE (19:24)
[2020-04-12] MEDS ORDERED: ONDANSETRON 4 MG/2 ML VIAL ONE (19:24)
[2020-04-12] MEDS ORDERED: FENTANYL CITR 100 MCG/2 ML ONE (19:24)
--- NOTE | 2020-04-12 19:25 | P.HP ---
Certification for Inpatient Patient admitted to: Observation With expected LOS: <2 Midnights Patient will require the following post-hospital care: None Practitioner: I am a practitioner with admitting privileges, knowledge of patient current condition, hospital course, and medical plan of care. Services: Services provided to patient in accordance with Admission requirements found in Title 42 Section 412.3 of the Code of Federal Regulations <Kevin Minaya - Last Filed: 04/12/20 19:20> Patient History Date of Service: 04/12/20 Primary Care Provider: Dr. Britt, Neuro-Dr. Diamond, Cardiology- Dr. Lance Reason for admission: Fall History of Present Illness: 84-year-old female with history of atrial fibrillation on chronic anticoagulation therapy, hypertension, hyperlipidemia, seizure disorder, hypothyroidism presents emergency department after a mechanical fall from standing without loss of consciousness. Patient was walking and states she still mammography, denies any chest pain, shortness of breath, palpitations, headache, dizziness prior to fall. Patient was complaining of pain to bilateral knees, neck, head, large hematoma noted to the forehead, bruising below both eyes. Patient was evaluated in the emergency department with CT head/C-spine, CT facial bones, x-rays of bilateral knees, and cardiac workup. Patient evaluation revealed only nondisplaced nasal bone fracture. Due to the fact that patient had substantial fall with large hematoma is currently taking both Eliqu is and Plavix ED provider wishes to admit patient for further evaluation and management. When I saw the patient in the emergency department she is awake, alert, oriented x4. Daughter is at bedside. Patient reports that she did have mechanical fall from standing, stumbling over the feet. Patient currently lives in a [id number] apartment on the bottom floor per daughter's home. Discussed plan of care with patient and daughter, made him aware that we do not have neurosurgery services if they were to become needed but we will keep close eye on her overnight and repeat CT as needed. Will have patient see physical therapy in the morning. Patient and family agreeable with plan of care. - Past Medical/Surgical History Diabetic: Yes -: History of nephrolithiasis -: History of TIA- 2 -: History of pulmonary embolism on chronic anti coagulation therapy -: Diabetes mellitus type 2, [id number] -: CAD -: GERD -: Atrial fibrillation on chronic anti coagulation therapy -: Hyperlipidemia -: HTN -: Depression with anxiety -: UTI -: Tonsillectomy -: Removal of colon polyps -: CABG -: Cholecystectomy -: Hysterectomy -: Bone Spurs removed -: Triple Bypass -: 3 Stents in right kidney Psychosocial/ Personal History: Patient lives in small [id number] apartment and her daughter's house on the bottom floor. - Family History Mother -: Heart disease, Other (see notes) Notes: [place]. Age of 64 Father -: Heart disease Notes: Age of 77 - Social History Smoking Status: Never smoker Alcohol use: No CD- Drugs: No Caffeine use: Yes Place of Residence: Home <Kevin Minaya - Last Filed: 04/12/20 19:20> Date of Service: 04/13/20 <Cheikh Hammond - Last Filed: 04/13/20 14:26> Allergies aspirin Adverse Reaction (Verified 11/25/19 00:06) RAPID HEART RATE clonidine Adverse Reaction (Verified 11/25/19 00:06) Rapid Heart Rate codeine [Codeine] Adverse Reaction (Verified 11/25/19 00:06) CONFUSION hydrocodone bitartrate [From Vicodin] Adverse Reaction (Verified 11/25/19 00:06) CONFUSION iodine Adverse Reaction (Verified 11/25/19 00:06) NAUSEA lisinopril Adverse Reaction (Verified 11/25/19 00:06) COUGH niacin Adverse Reaction (Verified 11/25/19 00:06) Rash nitrofurantoin Adverse Reaction (Verified 11/25/19 00:06) Itching/Hives/Rash nitrous oxide [Nitrous Oxide] Adverse Reaction (Verified 11/25/19 00:06) Shortness of breath iodine dye Allergy (Intermediate, Uncoded 11/10/19 14:36) Itching/Hives/Rash Home Medications: Apixaban [Eliquis] 1 tab PO BID 02/18/19 Hydralazine HCl [Apresoline] 100 mg PO TID 02/18/19 Irbesartan [Avapro*] 150 mg PO DAILY 02/18/19 Magnesium Oxide [Magnesium] 1 tab PO DAILY 02/18/19 Metformin ER [Glucophage ER*] 500 mg PO BID 02/18/19 Multivitamin [Multivitamins] 1 cap PO DAILY 02/18/19 Rosuvastatin Calcium [Crestor] 40 mg PO BEDTIME 02/18/19 Vitamin E 1 tab PO DAILY 02/18/19 carvediloL [Coreg*] 12.5 mg PO BID 02/18/19 Pantoprazole [Protonix Tab*] 40 mg PO DAILYAC #30 tab 11/15/19 Levothyroxine [Synthroid*] 75 mcg PO [id number] 11/25/19 Sodium Chloride Tab [Sodium Chloride*] 1 gm PO QID #30 tab 11/26/19 Amlodipine [Norvasc] 10 mg PO DAILY 04/12/20 Clopidogrel Bisulfate [Plavix] 75 mg PO DAILY 04/12/20 L.acidoph,Paracasei, B.lactis [Probiotic] 1 each PO DAILY 04/12/20 Lacosamide [Vimpat] 50 mg PO BID 04/12/20 Review of Systems 10-point ROS is otherwise unremarkable Integumentary: Bruising (Bruising to forehead, below bilateral eyes.) <Kevin Minaya - Last Filed: 04/12/20 19:20> Physical Examination - Physical Exam General: Alert, In no apparent distress, Oriented x3 HEENT: Atraumatic, Normocephalic, PERRLA, Mucous membr. moist/pink Neck: Supple Respiratory: Clear to auscultation bilaterally, Normal air movement Cardiovascular: No edema, Regular rate/rhythm, Normal S1 S2 Capillary refill: <2 Seconds Gastrointestinal: Normal bowel sounds, Soft and benign, No tenderness, No rebound, No guarding Musculoskeletal: No erythema, No tenderness Integumentary: No rashes, No breakdown, No erythema, Other (Bruising noted to bilateral eyes, forehead.) Neurological: Normal speech, Normal strength at 5/5 x4 extr, Normal tone - Studies Laboratory Data (last 24 hrs) 04/12/20 16:50: PT 17.0 H, INR 1.45 04/12/20 16:50: WBC 6.3, Hgb 13.7, Hct 39.7, Plt Count 215 04/12/20 16:50: Sodium 136, Potassium 4.3, BUN 13, Creatinine 0.64, Glucose 147 H, Magnesium 2.2, Total Bilirubin 0.5, AST 20, ALT 26, Alkaline Phosphatase 118 H <Kevin Minaya - Last Filed: 04/12/20 19:20> - Studies Laboratory Data (last 24 hrs) 04/12/20 16:50: PT 17.0 H, INR 1.45 04/12/20 16:50: WBC 6.3, Hgb 13.7, Hct 39.7, Plt Count 215 04/12/20 16:50: Sodium 136, Potassium 4.3, BUN 13, Creatinine 0.64, Glucose 147 H, Magnesium 2.2, Total Bilirubin 0.5, AST 20, ALT 26, Alkaline Phosphatase 118 H <Cheikh Hammond - Last Filed: 04/13/20 14:26> Assessment and Plan - Plan Assessment Mechanical fall with large hematoma to scalp-on Eliquis and Plavix Atrial fibrillation on chronic anticoagulation therapy History of pulmonary embolism Hypertension Hyperlipidemia Hypothyroidism GERD Seizure disorder Plan Mechanical fall with large hematoma to scalp-on Eliquis and Plavix: Will hold all blood thinners, hold off on DVT prophylaxis at this time. Q 4 neuro checks. Fall risk. Will have patient evaluated by physical therapy in the morning. Will repeat CT without contrast as needed for neurological changes. Atrial fibrillation on chronic anticoagulation therapy: Hold Eliquis, Plavix. Continue patient's beta-nghia for rate control. History of pulmonary embolism: Hold patient's Eliquis. Hypertension: Continue patient's home medications including amlodipine, carvedilol, hydralazine. Will provide patient with p.r.n. medications. Hyperlipidemia: Continue patient's Crestor. Hypothyroidism: Continue patient's levothyroxine. GERD: Continue Protonix. Seizure disorder: Continue Vimpat, neuro checks. Discharge Plan: Home Plan to discharge in: 24 Hours - Advance Directives Does patient have a Living Will: Yes Does patient have a Durable POA for Healthcare: Yes - Code Status/Comfort Care Code Status Assessed: Yes (Patient is full code) Critical Care: No Time Spent Managing Pts Care (In Minutes): 55 <Kevin Minaya - Last Filed: 04/12/20 19:20> Physician Review Additional Text: Plan of care discussed with Kevin Minaya, and I agree with the management plan as noted above. <Cheikh Hammond - Last Filed: 04/13/20 14:26>
[2020-04-12 19:26] LABS: Urine Blood NEGATIVE (NEG); Urine Glucose NEGATIVE (NEG); Urine Protein NEGATIVE (NEG); Urine pH 7.5 (5.0-7.0)
[2020-04-12] MEDS: INSULIN -REGULAR HUMAN 50 UNIT/0.5 ML ML SQ SCH (21:20)
[2020-04-12] MEDS ORDERED: ACETAMINOPHEN 500 MG TAB PO PRN (21:20)
[2020-04-12] MEDS ORDERED: NA CHLORIDE 0.9% 1,000 ML IV SCH (21:20)
[2020-04-12] MEDS ORDERED: ONDANSETRON 4 MG/2 ML VIAL IV PRN (21:20)
[2020-04-12] MEDS ORDERED: ROSUVASTATIN 10 MG TAB PO SCH (21:20)
[2020-04-12] MEDS: HYDRALAZINE HCL 25 MG TABLET PO SCH (21:50)
[2020-04-12] MEDS: carvediloL 12.5 MG TAB PO SCH (21:50)
[2020-04-12 22:31] VITALS: BMI 22.8
[2020-04-12] MEDS: FENTANYL CITR 100 MCG/2 ML IV PRN (22:34)
[2020-04-13] MEDS: FENTANYL CITR 100 MCG/2 ML IV PRN (04:19)
[2020-04-13] MEDS: carvediloL 12.5 MG TAB PO SCH (05:09)
[2020-04-13 06:30] LABS: Absolute Lymphocytes (CBC) 1.5 K/uL (0.7-4.9); Basophils % 0.3 % (0-1.3); Hematocrit 34.3 % (36.0-45.0); Lymphocytes % 22.3 % (15.3-44.8); RBC Red Blood Cell Count 3.49 M/uL (3.86-4.86)
[2020-04-13] MEDS ORDERED: LEVOTHYROXINE SOD 0.075 MG TAB PO SCH (06:30)
[2020-04-13] MEDS ORDERED: PANTOPRAZOLE 40MG TABLET PO SCH (06:30)
[2020-04-13 06:52] LABS: BUN Blood Urea Nitrogen 10 mg/dL (7-18); Bicarbonate 26 mmol/L (21-32); Glucose Level 125 mg/dL (74-106); Potassium 4.1 mmol/L (3.5-5.1); Sodium Level 137 mmol/L (136-145)
[2020-04-13] MEDS: INSULIN -REGULAR HUMAN 50 UNIT/0.5 ML ML SQ SCH ×2 (07:30→11:30)
[2020-04-13] MEDS ORDERED: AMLODIPINE 10 MG TAB PO SCH (09:00)
[2020-04-13] MEDS ORDERED: LACOSAMIDE 50 MG TABLET PO SCH ×2 (09:00→21:00)
[2020-04-13] MEDS ORDERED: IRBESARTAN 150 MG TAB PO SCH (09:00)
[2020-04-13] MEDS: HYDRALAZINE HCL 25 MG TABLET PO SCH ×2 (09:16→14:43)
[2020-04-13 13:14] VITALS: O2SAT 96
--- NOTE | 2020-04-13 13:30 | P.DS ---
Admission Date: 04/12/20 Discharge Date: 04/13/20 Primary Care Provider: Dr. Britt, Neuro-Dr. Diamond, Cardiology- Dr. Lance Disposition: ROUTINE DISCHARGE Discharge Condition: GOOD Reason for Admission: Fall Consultations: Cardiology - Dr. Bunn Procedures: CT facial bones (04/12): Nondisplaced nasal bone fracture CT head and C-spine (04/12): No acute intracranial abnormalities seen. A cervical fracture not visualized. CXR (04/12): Lungs clear of acute infiltrate. Heart size mildly enlarged. Postsurgical changes involved chest. No acute abnormalities displayed. Left knee x-ray (04/12): Bones are osteoporotic, no fracture dislocation is visualized, there does seem to be a Lipohemarthrosis. In setting of trauma could represent occult fracture Right knee x-ray (04/12): Anterior soft tissue swelling, osteoporosis, chond rocalcinosis, no fracture dislocation seen. Problem list Mechanical fall with large hematoma to face/scalp on Eliquis and Plavix Nondisplaced nasal bone fracture Atrial fibrillation on chronic anticoagulation therapy (Eliquis) History of pulmonary embolism h/o stroke Hypertension Hyperlipidemia Hypothyroidism GERD Seizure disorder Brief History of Present Illness: 84-year-old female with history of atrial fibrillation on chronic anticoagulation therapy, hypertension, hyperlipidemia, seizure disorder, hypothyroidism presents emergency department after a mechanical fall from standing without loss of consciousness. Patient was walking and states she still mammography, denies any chest pain, shortness of breath, palpitations, headache, dizziness prior to fall. Patient was complaining of pain to bilateral knees, neck, head, large hematoma noted to the forehead, bruising below both eyes. Patient was evaluated in the emergency department with CT head/C-spine, CT facial bones, x-rays of bilateral knees, and cardiac workup. Patient evaluation revealed only nondisplaced nasal bone fracture. Due to the fact that patient had substantial fall with large hematoma is currently taking both Eliquis and Plavix ED provider wishes to admit patient for further evaluation and management. Hospital Course: Patient was brought in for observation overnight. The following morning, her facial swelling had decreased, she was feeling much better, only complaining of some mild soreness of bilateral knees and face. She ambulated well with physical therapy. Her hemoglobin was trended and stable. 13.7 (04/12/20)-> 11.8 (6am 9/20) -> 11.9 (noon 04/13). Given her significant history of AFib, PE, strokes, CAD s/p CABG, Cardiology was consulted for assistance in determining best course of action regarding her Eliquis and Plavix. Patient's Eliquis will be decreased to 2.5 mg b.i.d. on discharge, to continue Plavix. She will follow up with Dr. Bunn in the next 1-2 weeks. She may benefit from the left atrial appendage closure. Discussed the left knee x-ray with the patient, and advised if the pain persists or worsens to follow up with PCP, may benefit from an outpatient MRI or repeat x-ray. Vital Signs/Physical Exam: Temp Pulse Resp BP Pulse Ox 98.8 F 68 18 136/61 96 04/13/20 08:00 04/13/20 08:00 04/13/20 08:00 04/13/20 08:00 04/13/20 08:00 General: Alert, In no apparent distress HEENT: PERRLA, Other (Ecchymosis around bilateral eyes and upper cheeks. Sclera normal), EOMI Neck: Supple, No LAD Respiratory: Clear to auscultation bilaterally, Normal air movement Cardiovascular: No edema, Irregular heart rate/rhythm (AFib) Gastrointestinal: Soft and benign, Non-distended, No tenderness Musculoskeletal: Other (Mild swelling and mild tenderness of bilateral knees, left slightly worse) Neurological: Normal speech, Normal strength at 5/5 x4 extr, Normal affect Laboratory Data at Discharge: WBC 6.8 K/uL (4.3-10.9) 04/13/20 06:00 Hgb 11.9 g/dL (12.0-15.0) L 04/13/20 11:55 Hct 34.3 % (36.0-45.0) L 04/13/20 06:00 Plt Count 161 K/uL (152-406) D 04/13/20 06:00 PT 17.0 SECONDS (9.5-12.5) H 04/12/20 16:50 INR 1.45 04/12/20 16:50 Sodium 137 mmol/L (136-145) 04/13/20 06:00 Potassium 4.1 mmol/L (3.5-5.1) 04/13/20 06:00 BUN 10 mg/dL (7-18) 04/13/20 06:00 Creatinine 0.55 mg/dL (0.55-1.3) 04/13/20 06:00 Glucose 125 mg/dL (74-106) H 04/13/20 06:00 Magnesium 2.2 mg/dL (1.8-2.4) 04/12/20 16:50 Total Bilirubin 0.5 mg/dL (0.2-1.0) 04/12/20 16:50 AST 20 U/L (15-37) 04/12/20 16:50 ALT 26 U/L (12-78) 04/12/20 16:50 Alkaline Phosphatase 118 U/L (45-117) H 04/12/20 16:50 Home Medications: Hydralazine HCl [Apresoline] 100 mg PO TID 02/18/19 Irbesartan [Avapro*] 150 mg PO DAILY 02/18/19 Magnesium Oxide [Magnesium] 1 tab PO DAILY 02/18/19 Metformin ER [Glucophage ER*] 500 mg PO BID 02/18/19 Multivitamin [Multivitamins] 1 cap PO DAILY 02/18/19 Rosuvastatin Calcium [Crestor] 40 mg PO BEDTIME 02/18/19 Vitamin E 1 tab PO DAILY 02/18/19 carvediloL [Coreg*] 12.5 mg PO BID 02/18/19 Pantoprazole [Protonix Tab*] 40 mg PO DAILYAC #30 tab 11/15/19 Levothyroxine [Synthroid*] 75 mcg PO [id number] 11/25/19 Sodium Chloride Tab [Sodium Chloride*] 1 gm PO QID #30 tab 11/26/19 Amlodipine [Norvasc*] 10 mg PO DAILY 04/12/20 Clopidogrel Bisulfate [Plavix*] 75 mg PO DAILY 04/12/20 L.acidoph,Paracasei, B.lactis [Probiotic] 1 each PO DAILY 04/12/20 Lacosamide [Vimpat*] 50 mg PO BID 04/12/20 Apixaban [Eliquis] 1 tab PO BID 30 Days #60 tablet 04/13/20 New Medications: Apixaban [Eliquis] 1 tab PO BID 30 Days #60 tablet Patient Discharge Instructions: Follow up with PCP in 1 week. Follow up with Cardiology - Dr Bunn in 1-2 weeks. Findings: Nondisplaced nasal fracture Diet: AHA Activity: Fall precautions Followup: Jaya Bunn MD [ACTIVE - CAN ADMIT] - Time spent managing pt's care (in minutes): 40
[2020-04-13 17:48] VITALS: BP 140/67; TEMP 97.2
== END 2020-04-13 18:09 | disposition home or self-care (01) ==
LOC: ER 16:14 → ERHOLD 19:11 → 2ND 21:11
PROVIDERS: ADMIT Hospitalist; ATTEND Hospitalist
DX: S00.03XA Contusion of scalp, initial encounter (principal); S02.2XXA Fracture of nasal bones, initial encounter for closed fracture; I48.91 Unspecified atrial fibrillation; I48.92 Unspecified atrial flutter; I10 Essential (primary) hypertension; E78.5 Hyperlipidemia, unspecified; G40.909 Epilepsy, unspecified, not intractable, without status epilepticus; E03.9 Hypothyroidism, unspecified; I25.10 Atherosclerotic heart disease of native coronary artery without angina pectoris; K21.9 Gastro-esophageal reflux disease without esophagitis; F41.8 Other specified anxiety disorders; W19.XXXA Unspecified fall, initial encounter; Z95.1 Presence of aortocoronary bypass graft; Z79.01 Long term (current) use of anticoagulants; Z86.711 Personal history of pulmonary embolism; Z86.73 Personal history of transient ischemic attack (TIA), and cerebral infarction without residual deficits
CPT/HCPCS: 96361; 93005; 85025 ×2; 80048 ×2; 36415; 83735; 85610; 82947 ×4; 80076; 84443; 85018; 81003; 84484; 84439; 83880; 70450; 72125; 70486; 76377; 71045; 73562 ×2; 90471; 90714; 97116; 97161; 96375; 96374; 99285; J3010 ×3; J0690; J7030 ×2; J2405; G0378 ×3; G0390

== ENCOUNTER 2020-04-30 13:49 | Emergency (ER) | payer OTHER ==
[2020-04-30] MEDS ORDERED: FAMOTIDINE 20 MG/2 ML VIAL IV ONE (14:33)
[2020-04-30] MEDS ORDERED: ONDANSETRON 4 MG/2 ML VIAL ONE (14:33)
[2020-04-30] MEDS ORDERED: NA CHLORIDE 0.9% 500 ML ONE ×2 (14:33→15:46)
[2020-04-30 14:46] LABS: Basophils % 0.6 % (0-1.3); Hematocrit 37.4 % (36.0-45.0); Lymphocytes % 24.9 % (15.3-44.8); MPV 7.8 fL (7.6-11.3)
[2020-04-30 15:04] LABS: ALT/SGPT 33 U/L (12-78); AST/SGOT 23 U/L (15-37); Albumin 3.6 g/dL (3.4-5.0); Alkaline Phosphatase 108 U/L (45-117); BUN Blood Urea Nitrogen 12 mg/dL (7-18); Bicarbonate 28 mmol/L (21-32); Bilirubin Direct 0.2 mg/dL (0-0.2); Bilirubin Total 0.6 mg/dL (0.2-1.0); Glucose Level 117 mg/dL (74-106); Lipase 117 U/L (73-393); Potassium 3.9 mmol/L (3.5-5.1); Protein, Total 7.3 g/dL (6.4-8.2); Sodium Level 138 mmol/L (136-145); Troponin I < 0.02 ng/mL (0.0-0.045)
--- NOTE | 2020-04-30 15:28 | RAD REPORT ---
EXAM DESCRIPTION: RAD - Chest Single View - 04/30/2020 3:16 pm CLINICAL HISTORY: nausea/vomiting Chest pain. COMPARISON: Chest Single View dated 04/12/2020; Chest Single View dated 03/04/2020; Chest Single View dated 11/24/2019; Chest Pa And Lat (2 Views) dated 10/14/2019 FINDINGS: Portable technique limits examination quality. Mild interstitial pulmonary edema. The heart is mildly enlarged with changes of a prior CABG. No disp laced fractures. IMPRESSION: Mild CHF.
--- NOTE | 2020-04-30 16:14 | ER ---
Nurse's Notes [facility] Name: Radha Lara Age: 84 yrs Sex: Female : 1935 Arrival Date: 04/30/2020 Time: 13:51 Bed 18 Private MD: Elli Britt Diagnosis: Nausea and vomiting;Weakness-general Presentation: 04/30 14:07 Chief complaint: Patient states: N/V, decreased appetite for 3-4 days and general body ca1 weakness. Reports this has happened before. Coronavirus screen: Client denies travel out of the [place] in the last 14 days. nausea, vomiting. Ebola Screen: Patient negative for fever greater than or equal to 101.5 degrees Fahrenheit, and additional compatible Ebola Virus Disease symptoms Patient denies exposure to infectious person. Patient denies travel to an Ebola-affected area in the 21 days before illness onset. No symptoms or risks identified at this time. Initial Sepsis Screen: Does the patient meet any 2 criteria? No. Patient's initial sepsis screen is negative. Does the patient have a suspected source of infection? No. Patient's initial sepsis screen is negative. Risk Assessment: Do you want to hurt yourself or someone else? Patient reports no desire to harm self or others. Onset of symptoms was April 30, 2020. 14:07 Method Of Arrival: Wheelchair ca1 14:07 Acuity: YOLANDE 3 ca1 Historical: - Allergies: 14:24 Aspirin; ca1 14:24 Clonidine; ca1 14:24 Codeine; ca1 14:24 Ibuprofen; ca1 14:24 Iodinated Contrast Media - IV Dye; ca1 14:24 Lisinopril; ca1 14:24 Niacin; ca1 14:24 Nitrofurantoin; ca1 14:24 nitrous oxide; ca1 14:24 vicoden; ca1 14:24 Zoloft; ca1 14:24 Demerol; ca1 - Home Meds: 14:24 carvedilol 12.5 mg Oral tab 2 times per day [Active]; amlodipine 10 mg tab once daily ca1 for Hypertension [Active]; cranberry Oral twice a day [Active]; Crestor 40 mg Oral tab once daily [Active]; Eliquis 5 mg Oral tab 2 times per day [Active]; furosemide 40 mg Oral tab as needed [Active]; hydralazine 100 mg Oral tab 3 times per day [Active]; irbesartan 150 mg Oral tab 1 tab once daily [Active]; levothyroxine 75 mcg tab 1 tab once daily [Active]; magnesium oxide 500 mg Oral tab daily [Active]; metformin 500 mg Oral Tb24 1 tab 2 times per day [Active]; Multiple Vitamins Oral tab daily [Active]; omeprazole 40 mg Oral cpDR 1 cap once daily [Active]; pantoprazole 40 mg Oral TbEC 1 tab once daily [Active]; Plavix 75 mg Oral tab 1 tab once daily [Active]; Probiotic Oral daily [Active]; sodium chloride 1 gram Oral tab 5 times per day [Active]; Vimpat 50 mg Oral tab daily [Active]; vitamin E Oral once daily [Active]; - PMHx: 14:24 acid reflux; ADD/ADHD; Atrial Fib; CVA; Diabetes - NIDDM; Hyperlipidemia; Hypertension; ca1 Kidney stones; PE; Sleep Apnea; TIA; UTI; - PSHx: 14:24 Tonsillectomy; Hysterectomy; Cholecystectomy; CABG; ca1 - Immunization history:: Adult Immunizations up to date, Flu vaccine is not up to date. - Social history:: Smoking status: Patient denies any tobacco usage or history of. Screenin:15 Abuse screen: Denies threats or abuse. Denies injuries from another. Nutritional jl7 screening: No deficits noted. Tuberculosis screening: No symptoms or risk factors identified. Fall Risk IV access (20 points). Total Glez Fall Scale indicates No Risk (0-24 pts). Assessment: 14:15 General: Appears in no apparent distress. uncomfortable, Behavior is calm, cooperative, jl7 appropriate for age. Pain: Denies pain. Neuro: Level of Consciousness is awake, alert, obeys commands, Oriented to person, place, time, situation. Cardiovascular: Patient's skin is warm and dry. Respiratory: Airway is patent Respiratory effort is even, unlabored, Respiratory pattern is regular, symmetrical. GI: Reports nausea. : Denies burning with urination. Derm: Skin is pink, warm \T\ dry. 15:15 Reassessment: Patient appears in no apparent distress at this time. Patient and/or jl7 family updated on plan of care and expected duration. Pain level reassessed. Patient is alert, oriented x 3, equal unlabored respirations, skin warm/dry/pink. Patient states feeling better. 15:30 Reassessment: Pt able to keep bottle of water down for PO challenge, ERP notified. jl7 Vital Signs: 14:07 BP 177 / 69; Pulse 64; Resp 19 S; Temp 98.1(TE); Pulse Ox 98% on R/A; Weight 56.7 kg ca1 (R); Height 5 ft. 2 in. (157.48 cm) (R); 14:53 BP 180 / 60; Pulse 70; Resp 15; Pulse Ox 97% ; Pain 0/10; jl7 15:46 BP 177 / 53; Pulse 75; Resp 15; Pulse Ox 97% ; jl7 16:50 BP 157 / 51; Pulse 61; Resp 17; Pulse Ox 98% on R/A; tw2 14:07 Body Mass Index 22.86 (56.70 kg, 157.48 cm) ca1 ED Course: 13:51 Patient arrived in ED. as 13:51 Elli Britt MD is Private Physician. as 14:06 [facility]. cp 14:06 Chris Hammond MD is Attending Physician. cp 14:15 Patient has correct armband on for positive identification. Placed in gown. Bed in low jl7 position. Call light in reach. Side rails up X 1. traveling engineer on. Pulse ox on. NIBP on. Warm blanket given. 14:17 Vicente Villatoro, RN is Primary Nurse. jl7 14:19 Triage completed. ca1 14:24 Arm band placed on right wrist. ca1 14:30 Initial lab(s) drawn, by ct, sent to lab. Inserted saline lock: 22 gauge in right jl7 wrist, using aseptic technique. Blood collected. 14:55 EKG done, by ED staff, reviewed by Chris Hammond MD. jl7 15:16 XRAY Chest (1 view) In Process Unspecified. EDMS 15:30 Urine collected: clean catch specimen, clear. jl7 16:12 Mark Rosa MD is Referral Physician. cp 16:55 No provider procedures requiring assistance completed. IV discontinued, intact, jl7 bleeding controlled, No redness/swelling at site. Pressure dressing applied. Administered Medications: Discontinued: NS 0.9% 500 ml IV at bolus once 14:30 Drug: Zofran (Ondansetron) 4 mg Route: IVP; Site: right wrist; jl7 14:45 Follow up: Response: No adverse reaction; Nausea is decreased jl7 14:30 Drug: NS 0.9% 500 ml Route: IV; Rate: 500 ml/hr; Site: right wrist; jl7 15:15 Follow up: Response: No adverse reaction; IV Status: Completed infusion; IV Intake: jl7 500ml 14:32 Drug: Pepcid 20 mg Route: IVP; Site: right wrist; jl7 15:16 Follow up: Response: No adverse reaction jl7 15:36 Drug: NS 0.9% 500 ml Route: IV; Rate: bolus; Site: right wrist; jl7 Intake: 15:15 IV: 500ml; Total: 500ml. 7 Outcome: 16:13 Discharge ordered by MD. cp 16:55 Discharged to home ambulatory, with family. jl7 16:55 Condition: stable 16:55 Discharge instructions given to patient, family, Instructed on discharge instructions, follow up and referral plans. medication usage, Demonstrated understanding of instructions, follow-up care, medications, Prescriptions given X 1. 17:18 Patient left the ED. jl7 Signatures: Dispatcher [employer] EDMS Vicki Thomas Corey, PA PA cp Wise, Tara, RN RN tw2 Vicente Villatoro RN RN jl7 Yandy Luna RN RN ca1
--- NOTE | 2020-04-30 16:14 | EDPHYS ---
Physician Documentation [facility] Name: Radha Lara Age: 84 yrs Sex: Female : 1935 Arrival Date: 04/30/2020 Time: 13:51 Bed 18 Private MD: Elli Britt ED Physician Chris Hammond HPI: 04/30 14:14 This 84 yrs old Female presents to ER via Unassigned with complaints of cp Weakness, Nausea/Vomiting. 14:15 The patient presents to the emergency department with nausea, that is moderate, cp vomiting, that is intermittent, described as bilious. 14:15 Onset: The symptoms/episode began/occurred 3 day(s) ago. Possible causes: unknown. cp Associated signs and symptoms: Pertinent positives: anorexia, general weakness, Pertinent negatives: abdominal pain, constipation, diarrhea, fever, GI bleeding, active vomiting. 14:15 Severity of symptoms: in the emergency department the symptoms are unchanged despite cp home interventions. The patient has experienced similar episodes in the past, several times. Historical: - Allergies: 14:24 Aspirin; ca1 14:24 Clonidine; ca1 14:24 Codeine; ca1 14:24 Ibuprofen; ca1 14:24 Iodinated Contrast Media - IV Dye; ca1 14:24 Lisinopril; ca1 14:24 Niacin; ca1 14:24 Nitrofurantoin; ca1 14:24 nitrous oxide; ca1 14:24 vicoden; ca1 14:24 Zoloft; ca1 14:24 Demerol; ca1 - Home Meds: 14:24 carvedilol 12.5 mg Oral tab 2 times per day [Active]; amlodipine 10 mg tab once daily ca1 for Hypertension [Active]; cranberry Oral twice a day [Active]; Crestor 40 mg Oral tab once daily [Active]; Eliquis 5 mg Oral tab 2 times per day [Active]; furosemide 40 mg Oral tab as needed [Active]; hydralazine 100 mg Oral tab 3 times per day [Active]; irbesartan 150 mg Oral tab 1 tab once daily [Active]; levothyroxine 75 mcg tab 1 tab once daily [Active]; magnesium oxide 500 mg Oral tab daily [Active]; metformin 500 mg Oral Tb24 1 tab 2 times per day [Active]; Multiple Vitamins Oral tab daily [Active]; omeprazole 40 mg Oral cpDR 1 cap once daily [Active]; pantoprazole 40 mg Oral TbEC 1 tab once daily [Active]; Plavix 75 mg Oral tab 1 tab once daily [Active]; Probiotic Oral daily [Active]; sodium chloride 1 gram Oral tab 5 times per day [Active]; Vimpat 50 mg Oral tab daily [Active]; vitamin E Oral once daily [Active]; - PMHx: 14:24 acid reflux; ADD/ADHD; Atrial Fib; CVA; Diabetes - NIDDM; Hyperlipidemia; Hypertension; ca1 Kidney stones; PE; Sleep Apnea; TIA; UTI; - PSHx: 14:24 Tonsillectomy; Hysterectomy; Cholecystectomy; CABG; ca1 - Immunization history:: Adult Immunizations up to date, Flu vaccine is not up to date. - Social history:: Smoking status: Patient denies any tobacco usage or history of. ROS: 14:20 Constitutional: Negative for body aches, chills, fever, poor PO intake. cp 14:20 Eyes: Negative for injury, pain, redness, and discharge. cp 14:20 Cardiovascular: Negative for chest pain, edema, palpitations. cp 14:20 Respiratory: Negative for cough, shortness of breath, wheezing. 14:20 Abdomen/GI: Positive for nausea and vomiting, Negative for abdominal pain, diarrhea, constipation, black/tarry stool, rectal bleeding. 14:20 ENT: Negative for ear pain, sore throat, difficulty swallowing, difficulty handling cp secretions. 14:20 Back: Negative for pain at rest, pain with movement. 14:20 : Negative for urinary symptoms. 14:20 Neuro: Positive for weakness, Negative for altered mental status, dizziness, headache, syncope. 14:20 All other systems are negative. Exam: 14:25 Constitutional: The patient appears in no acute distress, alert, awake, cp non-diaphoretic, non-toxic, well developed, well nourished. 14:25 Head/Face: Normocephalic, atraumatic. cp 14:25 Eyes: Periorbital structures: appear normal, Conjunctiva: normal, no exudate, no injection, Sclera: no appreciated abnormality, Lids and lashes: appear normal, bilaterally. 14:25 ENT: External ear(s): are unremarkable, Nose: is normal, Mouth: Lips: moist, Oral mucosa: moist, Posterior pharynx: Airway: no evidence of obstruction, patent. 14:25 Chest/axilla: Inspection: normal, Palpation: is normal, no crepitus, no tenderness. 14:25 Cardiovascular: Rate: normal, Rhythm: regular, Edema: is not appreciated. 14:25 Respiratory: the patient does not display signs of respiratory distress, Respirations: normal, no use of accessory muscles, no retractions, labored breathing, is not present, Breath sounds: are clear throughout, no decreased breath sounds, no stridor, no wheezing. 14:25 Abdomen/GI: Inspection: abdomen appears normal, Bowel sounds: active, all quadrants, Palpation: abdomen is soft and non-tender, in all quadrants, voluntary guarding, is not appreciated, involuntary guarding, is not appreciated. 14:25 Back: pain, is absent. 14:25 Neuro: Orientation: to person, place \T\ time. Mentation: is normal, Cerebellar function: is grossly normal, Motor: moves all fours, general weakness with no focal deficits, Sensation: is normal. 14:35 ECG was reviewed by the Attending Physician. cp Vital Signs: 14:07 BP 177 / 69; Pulse 64; Resp 19 S; Temp 98.1(TE); Pulse Ox 98% on R/A; Weight 56.7 kg ca1 (R); Height 5 ft. 2 in. (157.48 cm) (R); 14:53 BP 180 / 60; Pulse 70; Resp 15; Pulse Ox 97% ; Pain 0/10; jl7 15:46 BP 177 / 53; Pulse 75; Resp 15; Pulse Ox 97% ; jl7 16:50 BP 157 / 51; Pulse 61; Resp 17; Pulse Ox 98% on R/A; tw2 14:07 Body Mass Index 22.86 (56.70 kg, 157.48 cm) ca1 MDM: 14:11 Patient medically screened. cp 15:00 Differential diagnosis: gastritis, viral gastroenteritis, gastroenteritis, dehydration, cp electrolyte abnormality. 16:12 Data reviewed: vital signs, nurses notes, lab test result(s), EKG, radiologic studies, cp plain films. 16:12 Test interpretation: by ED physician or midlevel provider: ECG. Counseling: I had a cp detailed discussion with the patient and/or guardian regarding: the historical points, exam findings, and any diagnostic results supporting the discharge/admit diagnosis, lab results, radiology results, to return to the emergency department if symptoms worsen or persist or if there are any questions or concerns that arise at home. Response to treatment: Symptoms improved. No vomiting observed while patient in ED, and as a result, I will discharge patient. 04/30 14:15 Order name: Basic Metabolic Panel; Complete Time: 15:09 cp 04/30 15:10 Interpretation: Normal except: GLUC 117; CRE 0.53. cp 04/30 14:15 Order name: CBC with Diff; Complete Time: 14:53 cp 04/30 14:54 Interpretation: Normal except: RBC 3.80. cp 04/30 14:15 Order name: Hepatic Function; Complete Time: 15:09 cp 04/30 15:10 Interpretation: Normal except: GLOB 3.7; A/G 1.0. cp 04/30 14:15 Order name: Lipase; Complete Time: 15:09 cp 04/30 14:15 Order name: Troponin I; Complete Time: 15:09 cp 04/30 14:55 Order name: XRAY Chest (1 view) cp 04/30 14:15 Order name: IV Saline Lock; Complete Time: 14:50 cp 04/30 14:15 Order name: Labs collected and sent; Complete Time: 14:50 cp 04/30 14:15 Order name: EKG; Complete Time: 14:16 cp 04/30 14:15 Order name: EKG - Nurse/Tech; Complete Time: 14:50 cp 04/30 15:11 Order name: PO challenge; Complete Time: 15:37 cp 04/30 15:32 Order name: Urine Dipstick-Ancillary (obtain specimen); Complete Time: 15:44 cp EC:35 Rate is 70 beats/min. Rhythm is irregularly irregular. QRS interval is normal. QT cp interval is normal. Interpreted by me. Reviewed by me. Administered Medications: Discontinued: NS 0.9% 500 ml IV at bolus once 14:30 Drug: Zofran (Ondansetron) 4 mg Route: IVP; Site: right wrist; jl7 14:45 Follow up: Response: No adverse reaction; Nausea is decreased jl7 14:30 Drug: NS 0.9% 500 ml Route: IV; Rate: 500 ml/hr; Site: right wrist; jl7 15:15 Follow up: Response: No adverse reaction; IV Status: Completed infusion; IV Intake: jl7 500ml 14:32 Drug: Pepcid 20 mg Route: IVP; Site: right wrist; jl7 15:16 Follow up: Response: No adverse reaction 15:36 Drug: NS 0.9% 500 ml Route: IV; Rate: bolus; Site: right wrist; jl7 Disposition: 17:31 Co-signature as Attending Physician, Chris Hammond MD. rn Disposition: 04/30/20 16:13 Discharged to Home. Impression: Nausea and vomiting, Weakness - general. - Condition is Stable. - Discharge Instructions: Nausea and Vomiting, Adult, Weakness. - Prescriptions for promethazine 25 mg Oral Tablet - take 0.5 tablet by ORAL route every 6-8 hours As needed; 20 tablet. - Medication Reconciliation Form, Thank You Letter, Antibiotic Education, Prescription Opioid Use form. - Follow up: Mark Rosa MD; When: 1 - 2 days; Reason: Recheck today's complaints. - Problem is an ongoing problem. - Symptoms have improved. Signatures: Dispatcher [employer] EDMS Chris Hammond MD MD rn Hari Lara PA PA cp Vicente Villatoro RN RN jl7 Yandy Luna RN RN ca1 Corrections: (The following items were deleted from the chart) 17:18 16:13 04/30/2020 16:13 Discharged to Home. Impression: Nausea and vomiting; Weakness - [facility]. Condition is Stable. Forms are Medication Reconciliation Form, Thank You Letter, Antibiotic Education, Prescription Opioid Use. Follow up: Mark Rosa; When: 1 - 2 days; Reason: Recheck today's complaints. Problem is an ongoing problem. Symptoms have improved. cp
[2020-04-30 17:44] VITALS: TEMP 98.1
[2020-04-30 17:49] VITALS: BP 157/51; O2SAT 98
--- OUTSIDE RECORDS SUMMARY | 2020-05-01 21:14 | XMS REPORT | Clinical Summary ---
:1935 Author Organization [facility] Address [address] [place] [address] Care Team Providers Name Role Phone Unavailable [...] 42-Bifid Take 1 tablet by 0 Active 0-gbzoik-GAN (PROBIOTIC mouth daily. PLUS COLOSTRUM) 30-500-50 mg PwPk zltuvoie-kda-htiigfo Take 1 tablet by 0 Active fumarate (MULTI mouth daily. VITAMIN) 9 mg iron/15 mL Liqd Active Problems Problem Noted Date Expressive aphasia 11/19/2017 Essential hypertension 11/19/2017 Type 2 diabetes mellitus without complication, without long-term current 11/19/2017 use of insulin Chronic atrial fibrillation 11/19/2017 Hyponatremia 11/19/2017 TIA (transient ischemic attack) 11/19/2017 Encounters Date Type Specialty Care Team Description 04/30/2019 - Hospital Encounter Cardiology Svetlana Edwards Chr onic atrial fibrillation; 05/01/2019 MD Rivas Essential hypertension; Canelo Bar Expressiv e aphasia; MD Ayaan Hyponatremia; Nathan Robles Type 2 juventino betes mellitus without complication, without long-term current use of insulin (HCC); Hx-TIA (transie nt ischemic attack); Intracranial va scular stenosis 04/30/2019 Travel after 04/30/2019 Social History Tobacco Use Types Packs/Day Years [...] are i n the results section. after 04/30/2019 Results EKG-SCANNED (05/02/2019 1:30 PM CDT) Narrative [...] CDT) Specimen Narrative Performed At FINAL REPORT [facility] CLINICAL HISTORY: TIA TECHNIQUE: Initially, noncontrast head [...] intact. There is no evidence for a elim ira of Remy lis proximal branch vessel occlusion. [...] aron stenosis, unchanged. No evidence for a elim ira of Lawson proxi mal branch vessel occlusion. Signed: Alexa Koch MD Report Verified Date/Time:05/01/2019 10:58:29 Reading Location: [address] Room Procedure Note Interface, External Ris [...] intact. There is no evidence for a elim ira of Remy lis proximal branch vessel occlusion. [...] aron stenosis, unchanged. No evidence for a elim ira of Lawson proxi mal branch vessel occlusion. Signed: Alexa Koch MD Report Verified Date/Time: 05/01/2019 1 0:58:29 Reading Location: [facility] C013V [facility] Performing Organization Address City/State/Zipcode Phone Number [facility] CTA brain (05/01/2019 10:12 AM CDT) Specimen Narrative Performed At FINAL REPORT [facility] CLINICAL HISTORY: TIA TECHNIQUE: Initially, noncontrast head [...] intact. There is no evidence for a elim ira of Remy lis proximal branch vessel occlusion. [...] aron stenosis, unchanged. No evidence for a elim ira of Lawson proxi mal branch vessel occlusion. Signed: Alexa Koch MD Report Verified Date/Time:05/01/2019 10:58:29 Reading Location: [address] Procedure Note Interface, External Ris In - [...] intact. There is no evidence for a elim ira of Remy lis proximal branch vessel occlusion. [...] aron stenosis, unchanged. No evidence for a elim ira of Lawson proxi mal branch vessel occlusion. Signed: Alexa Koch MD Report Verified Date/Time: 05/01/2019 1 0:58:29 Reading Location: [facility] C013V [facility] Room Performing Organization Address City/State/Zipcode Phone Number GE RIS CBC (Hemogram only) (05/01/2019 4:23 AM CDT) WBC 7.4 3.5 - 10.5 K/L [facility] RBC 3.56 (L) 3.93 - 5.22 M/L [facility] Hemoglobin 11.3 11.2 - 15.7 GM/DL [facility] Hematocrit 33.9 (L) 34.1 - 44.9 % [facility] MCV 95.2 (H) 79.4 - 94.8 fL [facility] MCH 31.7 25.6 - 32.2 pg [facility] MCHC 33.3 32.2 - 35.5 GM/DL [facility] RDW 12.0 11.7 - 14.4 % [facility] Platelets 170 150 - 450 K/CU MM [facility] MPV 9.6 9.4 - 12.3 fL [facility] nRBC 0 0 - 0 /100 WBC [facility] Specimen Blood Performing Organization Address City/State/Zipcode Phone Number [facility] [address] [place] [address] [place] Basic Metabolic Panel (05/01/2019 4:23 AM CDT)Only the most recent of2 results within the time period is included. Sodium 133 (L) 136 - 145 meq/L [facility] Potassium 4.3 3.5 - 5.1 meq/L [facility] Chloride 104 98 - 107 meq/L [facility] CO2 24 22 - 29 meq/L [facility] BUN 8 7 - 21 mg/dL [facility] Creatinine 0.63 0.57 - 1.25 mg/dL [facility] Glucose 105 70 - 105 mg/dL [facility] Calcium 8.8 8.4 - 10.2 mg/dL [facility] EGFR 90Comment: ESTIMATED GFR IS mL/min/1.73 sq m [facility] NOT ACCURATE CREATININE [facility] CLEARANCE IN PREDICTING GLOMERULAR FILTRATION RATE. ESTIMATED GFR IS NOT APPLICABLE FOR DIALYSIS PATIENTS. Specimen Blood Performing Organization Address City/State/Zipcode Phone Number [facility] [address] [place] [address] [place] Troponin I (04/30/2019 7:34 PM CDT)Only the most recent of2 resultswithin the time period is included. Troponin I <0.01 0.00 - 0.03 ng/mL [facility] Specimen Blood Narrative Performed At Troponin I (TnI) levels must be interpreted [facility] in the context of the presenting symptoms [...] tachyarrhythmia. Performing Organization Address City/State/Zipcode Phone Number [facility] [address] [place] [address] CENTER MR brain without IV contrast (04/30/2019 6:31 PM CDT) Specimen Narrative Performed At FINAL REPORT [facility] MR, BRAIN, WITHOUT CONTRAST INDICATION: Stroke, follow [...] IMPRESSION: No acute infarct Signed: Brenden Gee MD Report Verified Date/Time:04/30/2019 19:07:03 Reading Location: [facility] C013V [facility] Procedure Note Interface, External Ris In - [...] IMPRESSION: No acute infarct Signed: Brenden Gee MD Report Verified Date/Time: 04/30/2019 1 9:07:03 Reading Location: [address] Room Performing Organization Address City/State/Zipcode Phone Number [facility] 2D Echo W/Doppler(CW/PW/Color) (04/30/2019 4:26 PM CDT) Ejection Fraction [facility] ECHO HEAR TLAB MKCK[facility]ON CPA Specimen Narrative Performed At Transthoracic Echocardiography Report (T TE) [facility] ECHO HEARTLAB [facility] Demographics Patient Name RADHA LARA Date of Study 04/30/2019 M [id number] GenderFema le Visit Number [id number] Room Number 1461 Number Date of Birth1935Referring Physician NATHAN ROBLES Age83 year(s)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 Mild aortic stenosis. Eybm-cw-rzokptka mitral regurgitation. Mild tricuspid regurgitation. Estimated peak [...] leaflet thickening. Moderate mitral annular ca lcification. Mizj-xb-eyprcyza mitral re gurgitation. MV inflow gradients are [...] Name RADHA LARA Date of Study 04/30/2019 M Gender Female Visit Number [id number] Race Room Num [facility] 1461 Number Date of 1935 Lissette rossi Physician NATHAN ROBLES Age 83 year(s) Sonograp her Josefina Melhem RDCS [facility] Rubens Cruz MD Procedure Type of Study [...] and post Valsalva . Mild aortic stenosis. Mlxn-ls-fjkbkwkp mitral regurgitation. Mild tricuspid regurgitation. Estimated peak [...] leaflet thickening. Moderate mitral annular calcification. M kra-mb-ahcdksmc mitral regurgitation. M V inflow gradients are [...] T CI: 3.45 l/min/m^2 Performing Organization Address City/[facility] [place] [place] Phone Number [facility] ECHO HEARTLAB MKCK[facility]ON CPACS TSH/Free T4 If Indicated (04/30/2019 7:02 AM CDT) TSH 0.69 0.35 - 4.94 uIU/mL [facility] Specimen Blood Narrative Performed At Add on please to morning labs [facility] Add on to morning labs Performing Organization Address City/[facility]/Zipcode Phone Number [facility] [address] [place] [address] CENTER Vitamin B12 (04/30/2019 7:02 AM CDT) Vitamin B12 654 213 - 816 pg/mL [facility] Specimen Blood Narrative Performed At Add on please to morning labs [facility] Add on to morning labs Performing Organization Address City/State/Zipcode Phone Number [facility] [address] [place] [address] CENTER CBC with platelet count + automated diff (04/30/2019 4:28 AM CDT) WBC 7.9 3.5 - 10.5 K/L [facility] RBC 3.40 (L) 3.93 - 5.22 M/L [facility] Hemoglobin 10.6 (L) 11.2 - 15.7 GM/DL [facility] Hematocrit 32.1 (L) 34.1 - 44.9 % [facility] MCV 94.4 79.4 - 94.8 fL [facility] MCH 31.2 25.6 - 32.2 pg [facility] MCHC 33.0 32.2 - 35.5 GM/DL [facility] RDW 12.0 11.7 - 14.4 % [facility] Platelets 168 150 - 450 K/CU MM [facility] MPV 9.6 9.4 - 12.3 fL [facility] nRBC 0 0 - 0 /100 WBC [facility] % Neutros 57 % [facility] % Lymph[facility] 28 % [facility] % Monos 12 % [facility] % Eos 2 % [facility] % Baso 0 % [facility] # Neutros 4.50 1.56 - 6.13 K/L [facility] # Lymphs 2.23 1.18 - 3.74 K/L [facility] # Monos 0.98 (H) 0.24 - 0.36 K/L [facility] # Eos 0.15 0.04 - 0.36 K/L [facility] # Baso 0.03 0.01 - 0.08 K/L [facility] Immature Granulocytes-Relative 0 0 - 1 % C [facility] Specimen Blood Performing Organization Address City/[facility]/Zipcode Phone Number [address] [address] [place] Hemoglobin A1c - Fasting (04/30/2019 4:28 AM CDT) Hemoglobin A1C 6.6 (H) 4.3 - 6.1 % [facility] Specimen Blood Narrative Performed At Fasting [facility] Performing Organization Address City/[facility] Phone Number [address] [address] [place] Fasting lipid panel (04/30/2019 4:28 AM CDT) Triglycerides 57Comment: Specimen slightly mg/dL [facility] Cholesterol 83Comment: Specimen slightly mg/dL [facility] HDL 37 mg/dL [facility] LDL Calculated 35 mg/dL [facility] Specimen Blood Narrative Performed At Triglyceride Reference Range: [facility] Low Risk <150 [id number] High Risk 200-499 Very High Risk>=500 Cholesterol Reference Range: Low Risk <200 [id number] High Risk>240 HDL Cholesterol Reference Range: Low Risk >=60 High Risk <40 LDL Cholesterol Reference Range: Optimal<100 Near Bdfhcft722-417 Lzjsrzyctm099-519 Tubw216-417 Very High >=190 Fasting Performing Organization Address City/[facility]/Zipcode Phone Number [place] [phone] [place] [address] CENTER after 04/30/2019 Insurance Payer Benefit Plan / Group Subscriber ID Type Phone A ddress [employer] xxxxxxxxx Maps Contracted Advance Directives For more information, please contact:[address] [phone] Code Status Date Activated Date Inactivated Comments [...]
--- OUTSIDE RECORDS SUMMARY | 2020-05-01 21:16 | XMS REPORT ---
[...] Date Status Dos age Date Sodium Chloride [facility] [address] 1000 MG Orally 5 Mar 10, Aug 12, Activ e 1 tablet 1-50 times daily 2019 2020 Results No Known Results Summary Purpose eClinicalWorks Submission
--- OUTSIDE RECORDS SUMMARY | 2020-05-01 21:16 | XMS REPORT ---
[...] End Status Dosage System Date Date Montelukast [facility] 08800980135 10 MG Orally September Active 1 t ablet Sodium Once a day 2019 Omeprazole [facility] 82045431772 40 Active TAKE 1 CAPSULE BY MOUTH EVERY DAY Vitamin B-12 [facility] 01507-[address]21 Active not defined Methenamine [facility] 70694971528 1 GM Orally Active 1 ta blet Hippurate Twice a day Probiotic [facility] 99222310436 - Orally Active not defined Irbesartan [facility] 79872668470 150 MG Orally Active 1 t ablet Once a day Metformin HCl [facility] 17823896611 500 MG Orally Active 1 tablet Twice a day with meals Cyanocobalamin [facility] [address]-16 1000 MCG/15ML Activ e 15 ml Orally Once a day Estradiol [facility] 82585298796 0.1 MG/GM January Active as Vaginal Two 22, directed times a Week 2018 Carvedilol [facility] 69025483285 25 MG Orally Active as directed Magnesium [facility] 00235319768 500 MG Orally Active not defined Rosuvastatin [facility] 84275174118 40 Active TAKE 1 Calcium TABLET BY MOUTH DAILY Coreg [facility] 42146921126 25 MG Orally Active not defined Trimethoprim [facility] 34985718792 100 MG Orally Active 1 tablet Once a day PredniSONE [facility] 99303899728 10 MG Orally Mar 03Feb Active 2 ta blet Once a day 2019 20, daily x 5 2019 days then one tablet daily x 5 days Levetiracetam [facility] 07628521410 250 MG Orally Active 1 tablet every 12 hrs Tylenol Arthritis NDC 0 Active not Pain defined Omeprazole [facility] 48482011892 40 MG orally Active 1 EA CH daily in AM ONCE A DAY Metformin HCl [facility] 97131646772 500 Active TAKE 1 TABLET BY MOUTH TWICE DAILY HydrALAZINE HCl [facility] 55462006608 100 MG Orally Active 1 tablet Three times a with food day Plavix [facility] 44912685047 75 MG Orally Active 1 table t Once a day Sertraline HCl [facility] 52421913746 25 MG Orally Active 1 tablet Once a day Augmentin [facility] 11173367884 500-125 MG Mar 03Feb Active 1 table t Orally every 12 2019 17, hrs 2019 HydrALAZINE HCl [facility] 62422429520 100 MG Orally December 05, Active as Three times a 2017 day Levothyroxine [facility] 19839145282 125 MCG Orally Active 1 tablet Sodium Once a day in the morning on an empty stomach Sodium Chloride [facility] [address]-90 1000 MG Orally Act marty 1 tablet every 6 hours Rosuvastatin [facility] 30898259206 40 MG Active TAKE 1 Calcium TABLET BY MOUTH DAILY Crestor [facility] 02311782005 40 MG Active 1 EACH ONCE A DAY Amlodipine [facility] 67407180606 10 MG Orally Active 1 ta blet Besylate Once a day Vitamin D3 [facility] 36688155080 1000 UNIT Active 1 capsu le Orally Once a day Multivitamin [facility] 52970-91436 Active not defined Cranberry [facility] 12830-94313 425 MG Orally Active 1 ca psule Concentrate with meals Eliquis [facility] 33760064189 5 MG Orally Active 1 tablet twice a day Vitamin E [facility] 04779787089 400 UNIT Orally Active no t defined Results No Known Results Summary Purpose eClinicalWorks Submission
--- OUTSIDE RECORDS SUMMARY | 2020-05-01 21:16 | XMS REPORT ---
[...] Status Dosage System Date Date Vitamin E [facility] 59166761517 400 UNIT Orally Active no t defined Rosuvastatin [facility] 07692990473 40 Active TAKE 1 Calcium TABLET BY MOUTH DAILY Levothyroxine [facility] 65282086339 125 MCG Orally Active 1 tablet Sodium Once a day in the morning on an empty stomach Eliquis [facility] 30360100942 5 MG Orally Active 1 tablet twice a day Plavix [facility] 52156801272 75 MG Orally Active 1 table t Once a day Sertraline HCl [facility] 40616084247 25 MG Orally Active 1 tablet Once a day Montelukast [facility] 31930253866 10 MG Orally September Active 1 t ablet Sodium Once a day 2019 Magnesium [facility] 02333507016 500 MG Orally Active not defined Cranberry [facility] 54[address]-20563 425 MG Orally Active 1 ca psule Concentrate with meals Augmentin [facility] 22013685520 500-125 MG Mar 03Feb Active 1 table t Orally every 2019 17, hrs 2019 Omeprazole [facility] 93830924486 40 MG orally Active 1 EA CH daily in AM ONCE A DAY Vitamin D3 [facility] 14325382328 1000 UNIT Active 1 capsu le Orally Once a day Vitamin B-12 [facility] 60899-76199 Active not defined Omeprazole [facility] 65791443800 40 Active TAKE 1 CAPSULE BY MOUTH EVERY DAY Coreg [facility] 46543053646 25 MG Orally Active not defined Multivitamin [facility] 89899-41788 Active not defined Probiotic [facility] 03260560831 - Orally Active not defined Sodium Chloride [facility] [address]-45 1000 MG Orally Act marty 1 tablet every 6 hours Tylenol Arthritis NDC 0 Active not Pain defined Methenamine [facility] 40801117605 1 GM Orally Active 1 ta blet Hippurate Twice a day Crestor [facility] 08229421981 40 MG Active 1 EACH ONCE A DAY Carvedilol [facility] 05703268841 25 MG Orally Active as directed Levetiracetam [facility] 08128318103 250 MG Orally Active 1 tablet every 12 hrs Metformin HCl [facility] 77396869153 500 Active TAKE 1 TABLET BY MOUTH TWICE DAILY Metformin HCl [facility] 36612190976 500 MG Orally Active 1 tablet Twice a day with meals Cyanocobalamin [facility] [address]-34 1000 MCG/15ML Activ e 15 ml Orally Once a day Irbesartan ND 47291189156 150 MG Orally Active 1 t ablet Once a day HydrALAZINE HCl [facility] 98229401834 100 MG Orally December 05, Active as Three times a 2018 directed day HydrALAZINE HCl [facility] 64851552206 100 MG Orally Active 1 tablet Three times a with food day Amlodipine ND 35943914626 10 MG Orally Active 1 ta blet Besylate Once a day Estradiol [facility] 77924061004 0.1 MG/GM January Active as Vaginal Two 22, directed times a Week 2018 Trimethoprim ND 53817235496 100 MG Orally Active 1 tablet Once a day Rosuvastatin [facility] 42575362807 40 MG Active TAKE 1 Calcium TABLET BY MOUTH DAILY PredniSONE ND 02330138919 10 MG Orally Mar 03, Feb Active 2 ta blet Once a day 2019 20, daily x 5 2019 days then one tablet daily x 5 days Results No Known Results Summary Purpose eClinicalWorks Submission
--- OUTSIDE RECORDS SUMMARY | 2020-05-01 21:16 | XMS REPORT | Continuity of Care Document ---
:1935 Author Organization [facility] t Address [address] [place] [address] Care Team Providers Name Role Phone Mir Mendenhall MD Attending Clinician Ayaan Bar MD Attending Clinician Tracy Robles Attending Clinician MIR MENDENHALL Attending Clinician Unavailable JAMAAL MEJIA Attending Clinician Unavailable MIR MENDENHALL Admitting Clinician Unavailable JAMAAL MEJIA Admitting Clinician Unavailable Payers Payer Name Policy Type Policy Number Effective Expiration Source Date Date TEXANPLUSTEXANPLUS O x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 00:00: Practic 00 e Diabetes Diabetes Problem Active [place] mellitus Mellitus 01-08 Family 00:00: Practic 00 e Hyperlipid Hyperlipid Problem Active [place] emia emia 6-17 Family 00:00: Practic 00 e Essential Essential Problem Active [facility] hypertensi Hypertensi 6-17 Fa castro on on 00:00: Practic 00 e Atrial Atrial Problem Active [place] fibrillati Fibrillati 6-17 Fa castro on on 00:00: Practic e Gastroesop Gastroesop Problem Active [place] hageal hageal 6-17 Family reflux Reflux 00:00: Practic disease Disease 00 e Expressive Expressive Disease Active [facility] aphasia aphasia 11-19 [facility] Center Essential Essential Disease Active [facility] hypertensi hypertensi 28 Cyndi kes - on on 00:00: Medical [...] fibrillati fibrillati 00:00: Me dical on on 00 Center Hyponatrem Hyponatrem Disease Active [facility] ia ia 11-19 [facility] 00 Center TIA TIA Disease Active [facility] (transient (transient 11-19 Cyndi kes - ischemic ischemic 00:00: Medica l attack) attack) 00 Center Allergies, Adverse Reactions, Alerts Allergy Allergy Status Severity Reaction(s) Onset Inactive Treating Comm ents Source Name Type Date Date Clinician Aspirin Propensi Active palpitati [facility] ty to -28 ons [facility] - adverse 00:00: Medical reaction 00 Center s Codeine Propensi Active Confusion [facility] ty to 4-28 [facility] - adverse 00:00: Medical reaction 00 Center s Iodinate Propensi Active vomiting [facility] d ty to 28 [facility] - Contrast adverse 00:00: Medical Media [...] Active Info Not [facility] Reaction Available [facility] Macrodan Adverse Active Info Not [facility] tin Reaction Available [facility] Lisinopr Adverse Active Info Not [facility] il Reaction Available [facility] Aspirin Adverse Active Info Not [facility] Reaction Available [facility] Nitrous Adverse Active Info Not [facility] oxide Reaction Available [facility] Iodine Adverse Active Info Not [facility] contrast Reaction Available [facility] es - dye [facility] Vicodin Adverse Active Info Not [facility] Reaction Available [facility] Niacin Adverse Active Info Not [facility] Reaction Available [facility] Social History Social Habit Start Date Stop Date Quantity Comments Source Sex Assigned At [facility] Smoking Status Start Date Stop Date Source Never smoker [facility] Medications Ordered Filled Start Stop Current Ordering Indication Dosage Frequency Signature Comments Components Source Medication Medication Date Date Medication? Clinician (SIG) Name Name Sodium Sodium 2020- Yes Na Britt [address] Chloride Chloride 8-17 02-12 [facility] - 00:00: 00:00 Memoria 00 :00 [facility] Monteluka Montelukast Yes Na Britt [address] [facility] Sodium Sodium 3-20 [facility] - 00:00: Memoria 00 [facility] clopidogrel 2018-07 Yes 75mg QD Take [address] [address] (PLAVIX) 75 0-07 by mouth Luke s - mg tablet 00:32: daily. Medica [address] sertraline 2018-07 Yes 25mg QD Take [address] (ZOLOFT) 25 0-07 by mouth Luke s - MG tablet 00:32: daily. Medica [address] cranberry 2018-07 Yes 4200mg Q.5D Take 4,[address] conc-ascorb 0-07 mg by [facility] - ic acid 00:32: mouth 2 Medical (CRANBERRY 41 (two) Center CONCENTRATE times ) 140-100 daily. mg Cap Lactobac 2018-07 Yes 1{tbl} QD Take 1 [facility] 42-Bifid 0-07 tablet by [facility] - 8-colost-FO 00:32: mouth Medic al S 41 daily. Tony (PROBIOTIC PLUS COLOSTRUM) 30-500-50 mg PwPk multivit-mi 2018-07 Yes 1{tbl} QD Take [address] n-ferrous 0-07 tablet by [facility] - fumarate 00:32: mouth Medical (MULTI 41 daily. Tony VITAMIN) 9 mg iron/15 mL Liqd magnesium 2018-07 Yes 500mg QD Take [address] gluconate 0-07 mg by [facility] - (MAGONATE) 00:25: mouth Medica l 27.5 mg 41 daily . Tony (500 mg) tablet irbesartan Yes 150mg QD Take [address] (AVAPRO) 7-28 mg by [facility] - 150 MG 00:00: mouth Medical tablet 00 daily. Tony amLODIPine Yes 10mg QD Take [address] (NORVASC) 7-28 by mouth [facility] - 10 MG 00:00: daily. Medical tablet 00 Tony Estradiol Estradiol Yes Na Britt as [facility] 7-22 directed [facility] - 00:00: Memoria 00 [facility] HydrALAZINE HydrALAZINE 0 Yes Na Britt [address] HCl HCl 5-14 with food [facility] - 00:00: Memoria 00 [facility] rosuvastati Yes 40mg QD Take [address] n (CRESTOR) 4-28 by mouth Luke s - 40 MG 22:09: daily. Medical tablet 45 Tony apixaban 0 Yes 5mg Q.5D Take [address] (ELIQUIS) 5 4-28 by mouth 2 Cyndi kes - mg Tab 22:09: (two) Medical tablet 45 times Center daily. hydrALAZINE 2017-0 Yes 100mg [id number] Take [address] (APRESOLINE 4-28 [id number] mg by L ukes - ) 100 MG 22:09: 3D mouth 3 Medica l tablet 45 (three) Center times daily. metFORMIN Yes 500mg Take [address] (GLUCOPHAGE 4-28 mg by [facility] - ) 500 MG 22:09: mouth 2 Medica l tablet 45 (two) Center times daily with breakfast and dinner. omeprazole 2018-0 Yes 40mg QD Take [address] (PRILOSEC) 4-28 by mouth [facility] - 40 MG 22:09: daily. Medical capsule 45 Tony valsartan 2018-0 Yes 160mg QD Take [address] (DIOVAN) 4-28 mg by [facility] - 160 MG 22:09: mouth Medical tablet 45 daily. Center verapamil 2018-0 Yes 240mg QD Take [address] (VERELAN 4-28 mg by [facility] - PM) 240 MG 22:09: mouth Medica l 24 hr 45 nightly. Center capsule cyanocobala 2018-0 Yes 1000ug QD Take 1,[address] min 4-28 mcg by [email or web address] - (VITAMIN 22:09: mouth Medical B-12) 1000 45 daily. Center MCG tablet cholecalcif 2017-0 Yes 1000U QD Take 1,[address] roly, 4-28 Units by [employer] - vitamin D3, 22:09: mouth Medic al 1,000 unit 45 daily. Center capsule carvedilol Yes 25mg Take [address] (COREG) 25 4-28 by mouth 2 Cristian es - MG tablet 22:09: (two) Medical 44 times Center daily with breakfast and dinner. amlodipine amlodipine No 1 Q1D amlodipine [facility] 5 mg tablet 5 mg tablet 5 mg F amily Take 1 Take 1 tablet Practic tablet tablet Take 1 e every day every day tablet by oral by oral every day route. route. by oral route. carvedilol carvedilol No 1 BID carvedilol [facility] 25 mg 25 mg 25 mg Family tablet Take tablet Take tablet Practic 1 tablet 1 tablet Take 1 e twice a day twice a day tablet by oral by oral twice a route. route. day by oral route. clopidogrel clopidogrel No 1 Q1D clopidogre [facility] 75 mg 75 mg l 75 mg Family tablet Take tablet Take tablet Practic 1 tablet 1 tablet Take 1 e every day every day tablet by oral by oral every day route. route. by oral route. Crestor 40 Crestor 40 No 1 Q1D Crestor 40 [facility] mg tablet mg tablet mg tablet Family Take 1 Take 1 Take 1 Practic tablet tablet tablet e every day every day every day by oral by oral by oral route. route. route. Eliquis 5 Eliquis 5 No 1 BID Eliquis 5 [facility] mg tablet mg tablet mg tablet Family Take 1 Take 1 Take 1 Practic tablet tablet tablet e twice a day twice a day twice a by oral by oral day by route. route. oral route. hydralazine hydralazine No 1 TID hydralazin [place] 100 mg 100 mg e 100 mg Family tablet Take tablet Take tablet Practic 1 tablet 3 1 tablet 3 Take 1 e times a day times a day tablet 3 by oral by oral times a route. route. day by oral route. irbesartan irbesartan No 1 Q1D irbesartan [facility] 150 mg 150 mg 150 mg Family tablet Take tablet Take tablet Practic 1 tablet 1 tablet Take 1 e every day every day tablet by oral by oral every day route. route. by oral route. metformin metformin No 1 BID metformin [facility] 500 mg 500 mg 500 mg Family tablet Take tablet Take tablet Practic 1 tablet 1 tablet Take 1 e twice a day twice a day tablet by oral by oral twice a route. route. day by oral route. omeprazole omeprazole No 1capsul Q1D omeprazole [facility] 40 mg 40 mg e(s) 40 mg [...] Cyndi kes - Pain [facility] Methenamine Methenamine Yes Na Britt [address] Hippurate Hippurate [facility] Irbesartan Irbesartan Yes Na Britt [address] [facility] Vitamin Vitamin Yes Na Britt not [facility] B-12 B-12 defined [facility]restor Crestor Yes Na Britt [address] [facility] ONCE A DAY [facility] Metformin Metformin Yes Na Britt [address] [facility] [facility] HCl HCl with meals [facility] Vitamin E Vitamin E Yes Na Britt not [facility] defined [facility] Omeprazole Omeprazole Yes Na Britt TAKE [address] [facility] CAPSULE BY [facility] - MOUTH Memoria EVERY DAY l [facility] Amlodipine Amlodipine Yes Na Britt [address] [facility] Besylate Besylate [facility] Eliquis Eliquis Yes Na Britt [address] [facility] Multivitami Multivitami Yes Na Britt not [facility] n n defined [facility] Probiotic Probiotic Yes Na Britt not [facility] defined [facility] Trimethopri Trimethopri Yes Na Britt [address] [facility] m m [facility] Magnesium Magnesium Yes Na Britt not [facility] defined [facility] Levetiracet Levetiracet Yes Na Britt [address] [facility] am am [facility] Coreg Coreg Yes Na Britt not [facility] defined [facility] Metformin Metformin Yes Na Britt TAKE [address] [facility] HCl HCl TABLET BY [facility] MOUTH Memoria TWICE l DAILY [facility] Rosuvastati Rosuvastati Yes Na Britt TAKE [address] [facility] [facility] n Calcium n Calcium TABLET BY [facility]TH [facility]oria DAILY l [facility] Sertraline Sertraline Yes Na Britt [address] [facility] HCl HCl [facility] Vitamin D3 Vitamin D3 Yes Na Britt [address] [facility] [facility] Cyanocobala Cyanocobala Yes Na Britt [address] [facility] min min [facility] Omeprazole Omeprazole Yes Na Britt [address] [facility] [facility] ONCE A DAY [facility] Plavix Plavix Yes Na Britt [address] Carvedilol Carvedilol Yes Na Britt as [facility] directed [facility] Levothyroxi Levothyroxi Yes Na Britt [address] [facility] ne Sodium ne Sodium in the Cristian es - morning on Memoria an empty l stomach [facility] Sodium Sodium Yes Na Britt TAKE [address] [facility] Chloride Chloride TABLET in Cyndi kes - AM and 1 Memoria tab EVERY l 6 HOURS [facility] Cranberry Cranberry Yes Na Britt [address] Concentrate Concentrate with meals [facility] Vital Signs Vital Name Observation Time Observation Value Comments Source Height 2020-02-19 00:00:00 62 [in_i] [facility] Height 2019-10-16 00:00:00 62 [in_i] [facility] BMI (Body Mass Index) 2019-10-16 00:00:00 23.8 kg/m2 [facility] Body Weight 2019-10-16 00:00:00 130 [lb_av] [facility] Systolic blood 2019-05-01 15:00:00 159 mm[Hg] [facility] Diastolic blood 2019-05-01 15:00:00 60 mm[Hg] [facility] Heart rate 2019-05-01 15:00:00 68 /min [facility] Body temperature 2019-05-01 15:00:00 36.67 [facility] Respiratory rate 2019-05-01 15:00:00 18 /min [facility] Oxygen saturation in 2019-05-01 15:00:00 96 /min [facility] Arterial blood by Medical Ce nter Pulse oximetry Body weight Measured 2019-05-01 09:00:00 59.149 kg [facility] BMI 2019-05-01 09:00:00 22.38 kg/m2 [facility] Procedures Procedure Date / Time Performing Clinician Source Performed REPORT OF PROCEDURE - 2019-05-02 13:30:41 Provider, Default [facility] ENDOSCOPY SCAN [facility] RHYTHM STRIP - SCAN 2019-05-02 13:30:39 Provider, Default [facility] ECHOCARDIOGRAM REPORT - 2019-05-01 21:20:54 Provider, Default [facility] CTA BRAIN 2019-05-01 10:12:[address] [facility] CT/CTA CAROTID 2019-05-01 10:12:[address] [facility] CBC (HEMOGRAM ONLY) 2019-05-01 04:23:00 Nathan Robles [facility] BASIC METABOLIC PANEL (7) 2019-05-01 04:23:00 Nathan Robles [facility] Plan of Care Planned Activity Planned Date Details Comments Source Future Appointment 2020-08-24 00:00:00 Belle Jennifer will Family AdamsZenaida, [address]; [address] [address], [place] [address] Encounters Start End Encounter Admission Attending Care Care Encounter Source Date/Time Date/Time Type Type Clinicians Facility Department ID 2020-04-23 2020-04-23 [facility] [id number] 2020-04-16 2020-04-16 [facility] [id number] [facility] 2020-03-26 2020-03-26 [facility] [id number] 11:20:00 11:20:00 t Clinithink [facility] Medicine Outpati ent Clinics 2020-03-07 2020-03-07 [facility] [id number] 14:44:00 14:44:00 t Clinithink [facility] Medicine l Medicine Outpati ent Clinics 2020-03-05 2020-03-05 [facility] [id number] 11:00:00 11:00:00 t Specialty/U Cyndi kes - Specialty rology [facility] a /Urology Clinic l Clinic Outpati ent Clinics 2020-03-03 2020-03-03 [facility] [id number] 12:39:00 12:39:00 t Clinithink [facility] Medicine Outpati ent Clinics 2020-03-03 2020-03-03 [facility] [id number] 12:15:00 12:15:00 t Clinithink [facility] Medicine Outpati ent Clinics 2020-02-19 2020-02-19 [place] [facility] [place] - [id number] [place] [facility] 00:00:00 00:00:00 AdamsLeylaguerita Jennifer monroy o, [employer] 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, [address] [address], [place] [address] , Ph. 2020-01-18 2020-01-18 [facility] [id number] 10:39:00 10:39:00 t Clinithink [facility] Medicine Outpati ent Clinics 2020-01-17 2020-01-17 [facility] [id number] 10:40:00 10:40:00 t Clinithink [facility] Medicine Outpati ent Clinics 2020-01-01 2020-01-01 [facility] [id number] 13:55:00 13:55:00 t Clinithink [facility] Medicine Outpati ent Clinics 2019-12-20 2019-12-20 [facility] [id number] 09:43:00 09:43:00 t Clinithink [facility] Medicine Outpati ent Clinics 2019-12-18 2019-12-18 [facility] [id number] 11:20:00 11:20:00 t Clinithink [facility] Medicine Outpati ent Clinics 2019-12-04 2019-12-04 [facility] [id number] 10:00:00 10:00:00 t Specialty/U Cyndi kes - Specialty rology [facility] /Urology Clinic l Clinic Outpati ent Clinics 2019-12-03 2019-12-03 [facility] [id number] 11:31:00 11:31:00 t Clinithink [facility] Medicine Outpati ent Clinics 2019-11-26 2019-11-26 [facility] [id number] 08:43:00 08:43:00 t Clinithink [facility] Medicine Outpati ent Clinics 2019-11-16 2019-11-16 [facility] [id number] 08:35:00 08:35:00 t Specialty/U Cyndi kes - Specialty rology Memori a /Urology Clinic l Clinic Outpati ent Clinics 2019-11-10 2019-11-10 [facility] [id number] 14:05:00 14:05:00 t [facility] Lu s - Road [facility] Medicine Outpati ent Clinics 2019-10-17 2019-10-17 [facility] [id number] 14:55:00 14:55:00 t [employer] s - Six Month Smiles [facility] Medicine Outpati ent Clinics 2019-10-16 2019-10-16 Belle [employer] [facility] [place] - [id number] V illage 00:00:00 00:00:00 [facility] eliana aguilar, FRAMING MILL 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, [address], [place] [address] , Ph. 2019-10-12 2019-10-12 [facility] [id number] 15:58:00 15:58:00 t Clinithink [facility] Medicine Outpati ent Clinics 2019-10-01 2019-10-01 [facility] [id number] 15:42:00 15:42:00 t Clinithink [facility] Medicine Outpati ent Clinics 2019-09-25 2019-09-25 [facility] [id number] 11:20:00 11:20:00 t Clinithink [facility] Medicine Outpati ent Clinics 2019-09-18 2019-09-18 [facility] [id number] 11:15:00 11:15:00 t Specialty/U [facility] 2019-09-14 2019-09-14 [facility] [id number] 11:32:00 11:32:00 t Clinithink [facility] l Medicine Outpati ent Clinics 2019-09-04 2019-09-04 [facility] [id number] 11:20:00 11:20:00 t Clinithink [facility] Medicine Outpati ent Clinics 2019-09-04 2019-09-04 [facility] [id number] 10:00:00 10:00:00 t Specialty/U Cyndi kes - Specialty rology Mem[facility] a /Urology Clinic l Clinic Outpati ent Clinics 2019-08-08 2019-08-08 [facility] [id number] 10:40:00 10:40:00 t [employer] [facility] Medicine Medicine Outpati ent Clinics 2019-08-02 2019-08-02 [facility] [id number] 13:00:00 13:00:00 t Specialty/U Cyndi kes - Specialty rology [facility] a /Urology Clinic l Clinic Outpati ent Clinics 2019-07-09 2019-07-09 [facility] [id number] 14:00:00 14:00:00 t Clinithink [facility] Outpati ent Clinics 2019-05-29 2019-05-29 [facility] [id number] 11:20:00 11:20:00 t Clinithink [facility] Medicine Outpati ent Clinics 2019-05-15 2019-05-15 [facility] [id number] 10:15:00 10:15:00 t Specialty/U Cyndi kes - Specialty rology [facility] a /Urology Clinic l Clinic Outpati ent Clinics 2019-04-24 2019-04-24 [facility] [id number] 10:40:00 10:40:00 t Clinithink [facility] Medicine Outpati ent Clinics 2019-04-09 2019-04-09 [facility] [id number] 13:20:00 13:20:00 t Clinithink [facility] Medicine Outpati ent Clinics 2019-03-24 2019-03-24 [facility] [id number] 12:00:00 12:00:00 t Urgent Urgent Care L uk - Care Clinic [facility] Clinic l Outpati ent Clinics 2019-03-15 2019-03-15 [facility] [id number] 13:22:00 13:22:00 t Urgent Urgent Care L ukes - Care Clinic [facility] Clinic l Outpati ent Clinics 2019-03-13 2019-03-13 [facility] [id number] 10:39:00 10:39:00 t Center Center [employer] Luke s - Drive [facility] l Medicine Outpati ent Clinics 2019-03-12 2019-03-12 [facility] [id number] 10:30:00 10:30:00 t Urgent Urgent Care L ukes - Care Clinic [facility] Clinic l Outpati ent Clinics 2019-02-28 2019-02-28 [facility] [id number] 13:00:00 13:00:00 t Center Center [employer]iles Luke s - Drive [facility] Medicine Outpati ent Clinics 2019-02-12 2019-02-12 [facility] [id number] 10:15:00 10:15:00 t Specialty/U Cyndi kes - Specialty rology [facility] a [facility]Urology Clinic l Clinic Outpati ent Clinics 2019-02-08 2019-02-08 [facility] [id number] 15:00:00 15:00:00 t Center Center [employer]iles Luke s - Drive [facility] Medicine Outpati ent Clinics 2019-02-08 2019-02-08 [facility] [id number] 08:42:00 08:42:00 t Center Center [employer] Luke s - Drive [facility] l Medicine Outpati ent Clinics 2019-02-06 2019-02-06 [facility] [id number] 09:40:00 09:40:00 t Center Center [employer]iles Luke s - Drive [facility] Medicine Outpati ent Clinics 2019-01-09 2019-01-09 [facility] [id number] 10:40:00 10:40:00 t Center Center Six Month Smiles Luke s - Drive [facility] l Medicine Outpati ent Clinics 2019-01-03 2019-01-03 [facility] [id number] 13:07:00 13:07:00 t Center Center Six Month Smiles Luke s - Drive [facility] l Medicine Outpati ent Clinics 2018-12-28 2018-12-28 [facility] [id number] 14:00:00 14:00:00 t [facility] s [facility] Outpati ent Clinics 2018-09-14 2018-09-14 [facility] [id number] 09:26:00 09:26:00 t [facility] Outpati ent Clinics 2018-09-08 2018-09-08 [facility] [id number] 09:30:00 09:30:00 t [facility] Outpati ent Clinics 2018-08-07 2018-08-07 [facility] [id number] [facility] 08:45:00 08:45:00 t [facility] Outpati ent Clinics 2018-02-20 2018-02-20 [facility] [id number] [facility] 14:30:00 14:30:00 t [facility] 2018-02-03 2018-02-03 [facility] [place] [id number] 09:00:00 09:00:00 [facility] Results Test Description Test Time Test Comments Results Result [facility] e Comments CT, CTANGIO 2019-05-01 Reason for FINAL REPORT PATIENT BRAIN 10:58:00 exam:->stroke ID: [id number] CLINICAL HISTORY: TIA TECHNIQUE: Initially, noncontrast head [...] intact. There is no evidence for a [place] proximal branch vessel occlusion. Mild [...] artery stenosis, unchanged. No evidence for a [place] proximal branch vessel occlusion. Signed: Alexa Bolden MDReport Verified Date/Time: 05/01/2019 10:58:29 Reading Location: [address] Neuro Reading Room , CAROTID, 2019-05-01 Reason for FINAL REPORT PATIENT ANGIO 10:58:00 exam:->eval ID: [id number] for TIA CLINICAL HISTORY: TIA TECHNIQUE: Initially, [...] intact. There is no evidence for a [place] proximal branch vessel occlusion. Mild [...] artery stenosis, unchanged. No evidence for a [place] of [place] proximal branch vessel occlusion. Signed: Alexa Bolden MDReport Verified Date/Time: 05/01/2019 10:58:29 Reading Location: [address] Neuro Reading Room brain 2019-05-01 Interface, External [facility] 10:58:00 Ris In - 05/01/2019 - Med ical 11:07 AM [facility]AL Center REPORT CLINICAL HISTORY: [...] intact. There is no evidence for a bre[place] proximal branch vessel occlusion. Mild [...] artery stenosis, unchanged. No evidence for a [place] mission [place] proximal branch vessel occlusion. Signed: Alexa Bolden MDReport Verified Date/Time: 05/01/2019 10:58:29 Reading Location: [facility] Neuro Reading Room carotid 2019-05-01 Interface, External [facility] 10:58:00 Ris In - 05/01/2019 - Med ical 11:07 AM [facility]INAL Center REPORT CLINICAL HISTORY: [...] intact. There is no evidence for a [place] proximal branch vessel occlusion. Mild [...] artery stenosis, unchanged. No evidence for a bre[place] mission [place] proximal branch vessel occlusion. Signed: Alexa Bolden MDReport Verified Date/Time: 05/01/2019 10:58:29 Reading Location: [facility] B1 C013V Neuro Reading Room Basic Metabolic Panel 2019-05-01 06:04:00 Test Item Value Reference Range Interpretation Comme nts Sodium (test code = 2951-2) 133 meq/L 136-145 L Potassium (test code = 2823-3) 4.3 meq/L 3.5-5.1 Chloride (test code = 2075-0) 104 meq/L 98-107 CO2 (test code = 2027-9) 24 meq/L 22-29 BUN (test code = 3094-0) 8 mg/dL 7-21 Creatinine (test code = 0.63 mg/dL 0.57-1.25 2160-0) Glucose (test code = 2345-7) 105 mg/dL 70-105 Calcium (test code = 09725-1) 8.8 mg/dL 8.4-10.2 EGFR (test code = 95917-1) 90 mL/min/1.73 sq m ESTIMATED GFR IS NOT ACCURATE CRE ATININE CLEARANCE IN ND EDICTING GLOMERULAR FILT RATION RATE. ESTIMATED GFR IS NOT APPLICABLE FOR DIALYSIS PATIEN TS. Lab Interpretation (test code Abnormal = 62387-8) [facility] METABOLIC [id number] 06:04:00 Test Item Value Reference Range Interpretation [...] 450 K/CU MM MPV (test code = 09412-5) 9.6 fL 9.4-12.3 nRBC (test code = 413) 0 0- 0 /100 WBC Lab Interpretation (test code = Abnormal 48187-6) [facility] (HEMOGRAM ONLY)2019-05-01 04:59:00 Test Item Value Reference [...] WBC 0-0 (BEAKER) (test code = 413) TROPONIN [id number] 20:18:00 Test Item Value Reference Range Interpretation [...] neurological disease, and persistent tachyarrhythmia.MR, BRAIN, WITHOUT [id number] 19:07:00Reason for exam:->Ischemic Stroke EvaluationFINAL REPORT MR, [...] Hernandez Verified Date/Time: 04/30/2019 19:07:03 Reading Location: [address] Neuro Reading Room HEMOGLOBIN [id number] 10:33:00 Test Item Value Reference Range Interpretation Comments HEMOGLOBIN A1C (BEAKER) (test code = 6.6 % 4.3-6.1 H 368) FastingVITAMIN [id number] 09:00:00 Test Item Value Reference Range Interpretation [...] 2019-04-30 07:30:00 Test Item Value Reference Range Interpretation [...] NOT APPLICABLE FOR DIALYSIS PATIEN TS. FastingLIPID [id number] 07:30:00 Test Item Value Reference Range Interpretation [...] 130-159 High 160-189 Very High >=190 FastingTROPONIN [id number] 07:28:00 Test Item Value Reference Range Interpretation [...] and persistent tachyarrhythmia.FastingCBC W/PLT COUNT & AUTO [id number] 05:43:00 Test Item Value Reference Range Interpretation [...] (BEAKER) (test code = 2801) [place], ANGIOGRAM, [id number] 11:37:00Reason for exam:->TIAsFINAL REPORT November 22, 2017 [...] guidance and strict sterile technique a 4 Cambodian femoral sheath was inserted into the right common femoral artery. Through the sheath a 4 Cambodian vertebral catheter was then advanced over the [...] demonstrates a critical supraclinoid ICA stenosis of wuecjfrplnqaq44%. There is delayed antegrade flow. The venous [...] right cavernous ICA stenosis. Signed: Susanna Aden Verified Date/Time: 11/22/2017 11:37:47 Reading Location: [facility] Y018 Neuro Angio Reading Room POCT- GLUCOSE [id number] 07:43:00 Test Item Value Reference Range Interpretation Comments POC-GLUCOSE METER 149 mg/dL 70-[address] [facility] 6720 (BEAKER) (test code = [place] [facility] 1538) [address] [id number] 06:46:00 Test Item Value Reference Range Interpretation Comments MAGNESIUM (BEAKER) (test code = 2.0 mg/dL 1.6-2.6 627) BASIC METABOLIC [id number] 06:46:00 Test Item Value Reference Range Interpretation [...] S NOT APPLICABLE FOR DIALYSIS PATIEN TS. [id number] 06:33:00 Test Item Value Reference Range Interpretation [...] 2.5-3.5 for patients with mechanical heart valves.POCT-GLUCOSE [id number] 06:22:00 Test Item Value Reference Range Interpretation Comments POC-GLUCOSE METER 161 mg/dL 70-110 H TESTED AT [place] [address] ([facility]) (test code = [place]A [place] [facility] 1538) [address] POCT-GLUCOSE [id number] 02:08:00 Test Item Value Reference Range Interpretation Comments POC-GLUCOSE METER 182 mg/dL 70-110 H TESTED AT [place] [address] ([facility]) (test code = [place] [facility] 1538) [address] POCT-GLUCOSE [id number] 19:30:00 Test Item Value Reference Range Interpretation Comments POC-GLUCOSE METER 146 mg/dL 70-110 H TESTED AT [place] [address] ([facility]) (test code = [place] 1538) [address] CT, CAROTID, [id number] 14:54:00Please include aortaFINAL REPORT CT angiogram of [...] the left ICA terminus. There is also grct-jk-mddfhzrm multifocal narrowing of the right carotid siphon. [...] Reading Location: [facility] Radiology Reading [facility] CTANGIO [id number] 14:54:00FINAL REPORT CT angiogram of the upper [...] the left ICA terminus. There is also sftb-sd-hwwaefbx multifocal narrowing of the right carotid siphon. [...] Reading Location: [facility] Radiology Reading Room POCT-GLUCOSE [id number] 11:50:00 Test Item Value Reference Range Interpretation Comments POC-GLUCOSE METER 153 mg/dL 70-110 H TESTED AT [place] [address] ([facility]) (test code = [place]A [place] 15[address] POCT-GLUCOSE [id number] 08:08:00 Test Item Value Reference Range Interpretation Comments POC-GLUCOSE METER 125 mg/dL 70-[address] [facility] 6720 (BEAKER) (test code = [place] 1538) [address] [id number] 06:43:00 Test Item Value Reference Range Interpretation Comments MAGNESIUM (BEAKER) (test code = 2.1 mg/dL 1.6-2.6 627) BASIC METABOLIC [id number] 06:43:00 Test Item Value Reference Range Interpretation [...] FOR DIALYSIS PATIEN TS. TSH/FREE T4 IF [id number] 22:12:00 Test Item Value Reference Range Interpretation Comments THYROID STIMULATING HORMONE 4.66 uIU/mL 0.35-4.94 (BEAKER) (test code = 772) [id number] 21:54:00 Test Item Value Reference Range Interpretation Comments MAGNESIUM (BEAKER) (test code = 2.0 mg/dL 1.6-2.6 627) BASIC METABOLIC [id number] 21:54:00 Test Item Value Reference Range Interpretation Comments SODIUM (BEAKER) 134 meq/L 136-145 L (test code = 381) POTASSIUM (BEAKER) 4.1 meq/L 3.5-5.1 (test code = 379) CHLORIDE (BEAKER) 101 meq/L 98-107 (test code = 382) CO2 (BEAKER) (test 24 meq/L 22- code = 355) BLOOD UREA NITROGEN 11 [...] GFR I S NOT APPLICABLE FOR DIALYSIS BONNIE TS. LIPID [id number] 21:54:00 Test Item Value Reference Range Interpretation [...] Borderline 130-159 High 160-189 Very High >=190POCT-GLUCOSE [id number] 21:35:00 Test Item Value Reference Range Interpretation Comments POC-GLUCOSE METER 128 mg/dL 70-[address] [facility] 6720 ([facility]) (test code = [facility] [place] 1538) [address] POCT-GLUCOSE [id number] 17:55:00 Test Item Value Reference Range Interpretation Comments POC-GLUCOSE METER 113 mg/dL 70-[address] [facility] 6720 ([facility]) (test code = [facility] [place] 1538) [address] POCT-GLUCOSE [id number] 12:32:00 Test Item Value Reference Range Interpretation Comments POC-GLUCOSE METER 120 mg/dL 70-[address] [facility] 6720 (JANNETH) (test code = [place] 1534) [address] MR, MRA, BRAIN, WITHOUT [id number] 11:33:00Reason for exam:->Ischemic Stroke EvaluationFINAL REPORT MRA Head and Neck CLINICAL HISTORY: CVA TECHNIQUE: MRA of the head utilizing 3-D mnvv-mo-meugik technique, with 3-D reconstructions. MRA of the neck utilizing 2-D and 3-D nocl-pt-mwgwjn technique, with 3-D reconstructions. COMPARISON: None FINDINGS: [...] There is no other evidence for a [place] mission of [place] proximal branch vessel occlusion. There [...] MDReport Verified Date/Time: 11/20/2017 11:33:14 Reading Location: [address] Neuro Reading Room MR, MRA, NECK, WITHOUT IV [id number] 11:33:00Reason for exam:->Ischemic Stroke EvaluationFINAL REPORT MRA Head and Neck CLINICAL HISTORY: CVA TECHNIQUE: MRA of the head utilizing 3-D qlpt-cy-rnbyaz technique, with 3-D reconstructions. MRA of the neck utilizing 2- D and 3-D xkqb-oe-udhbrp technique, with 3-D reconstructions. COMPARISON: None FINDINGS: [...] There is no other evidence for a bre[place] proximal branch vessel occlusion. There [...] MDReport Verified Date/Time: 11/20/2017 11:33:14 Reading Location: [address] Neuro Reading Room MR, BRAIN, WITHOUT [id number] 11:05:00Reason for exam:->Ischemic Stroke EvaluationFINAL REPORT MRI [...] MDReport Verified Date/Time: 11/20/2017 11:05:05 Reading Location: [facility] B1 C013V Neuro Reading Room HEMOGLOBIN [id number] 09:08:00 Test Item Value Reference Range Interpretation Comments HEMOGLOBIN A1C ([facility]) (test code = 6.1 % 4.3-6.1 368) POCT-GLUCOSE [id number] 08:27:00 Test Item Value Reference Range Interpretation Comments POC-GLUCOSE METER 125 mg/dL 70-[address] [facility] 6720 ([facility]) (test code = [facility] 1538) [address] TSH/FREE T4 IF [id number] 07:47:00 Test Item Value Reference Range Interpretation Comments THYROID STIMULATING HORMONE 5.97 uIU/mL 0.35-4.94 H ([facility]) (test code = 772) VITAMIN [id number] 07:44:00 Test Item Value Reference Range Interpretation Comments [facility]IN B[facility] ([facility] (test code = 857 pg/mL 213-816 H 774) CBC W/PLT COUNT & AUTO [id number] 06:47:00 Test Item Value Reference Range Interpretation [...] PERCENT (BEAKER) (test code = 2801) POCT-GLUCOSE [id number] 22:09:00 Test Item Value Reference Range Interpretation Comments POC-GLUCOSE METER 130 mg/dL 70-[address] [facility] 6720 (BEAKER) (test code = ISA [place] 1538) [address]
--- OUTSIDE RECORDS SUMMARY | 2020-05-01 21:17 | XMS REPORT ---
:1935 Author Organization [facility] Address [address] [place], [address] [place] [address] Care Team Providers Name Role Phone Britt Unavailable [phone] PROBLEMS Type Condition ICD9-CM NHP88-CC Onset Condition SNOMED Code Notes Code Code Dates Status Problem 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 Active 782937154 Problem Overactive bladder N32.81 Active 936237222 Problem Chronic a-fib I48.2 Active 37403228 Problem GERD K21.9 Active 048654522 (gastroesophageal reflux disease) Problem Obstructive sleep G47.33 Active 28907780 apnea Problem Hypertension I10 Active 98439654 Problem Obesity E66.9 Active 631076136 Problem Stress at home F43.9 Active 318921483 Problem Mild depression F32.0 Active 367218199 Problem Recurrent urinary N39.0 Active 386056764 tract infection Problem History of TIA Z86.73 Active 641029557 (transient ischemic attack) Problem Type 2 diabetes E11.9 Active 617002057 Problem Atherosclerosis I70.90 Active 86625709 Problem Hospital discharge Z09 Active 373573376 follow-up Problem 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 [id number] carotid artery Problem Other speech R47.89 Active 71999437 disturbance Problem Elevated TSH R79.89 Active 504738076 Problem Chronic fatigue R53.82 Active 08845918 Problem Memory change R41.3 Active 57213847 Problem Other chronic pain G89.29 Active 71948217 Problem Mixed stress and N39.46 Active 557983200 urge urinary incontinence Problem Gastroesophageal K21.9 Active 755839897 reflux disease, esophagitis presence not specified Problem Hyperlipidemia E78.5 Active 13016555 Problem Hyponatremia E87.1 Active 46238672 Problem Allergic rhinitis J30.9 Active 69779841 Problem Abnormal mammogram R92.8 Active 091134415 Problem Acquired E03.9 Active 471705309 hypothyroidism Problem Seizure disorder G40.909 Active 112803738 Problem Seasonal allergic J30.2 Active 727416937 rhinitis, unspecified trigger Problem 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 Active 841565469 multiple joints, unspecified osteoarthritis type ALLERGIES Allergen (clinical drug Drug/Non Drug Reaction Allergy Type Onset D ate Status ingredient) Allergy documented on EMR sertraline Zoloft([facility] Unknown Drug Allergy Active Code:[address]-58) Iodine contrast dye Unknown Non Drug Allergy Active niacin Niacin([facility] Unknown Drug Allergy Active Code:[address]-96) aspirin Aspirin([facility] Unknown Drug Allergy Active Code:[address]-55) clonidine CloNIDine([facility] Unknown Drug Allergy Active Code:[address]-28) nitrofurantoin Macrodantin([facility] Unknown Drug Allergy Act marty Code:[address]-43) codeine codeine Unknown Drug Allergy Active Nitrous oxide Unknown Non Drug Allergy Activ e lisinopril Lisinopril([facility] Unknown Drug Allergy Active Code:[address]-09) Vicodin Unknown Drug Allergy Active ENCOUNTERS from 1935 to 2020-04-17 Encounter Location Date Provider Diagnosis [facility] [address] [place] [address] Mar, 2020 [place] [address] IMMUNIZATIONS Vaccine Route Administration Date Status Vitamin B12 (Cyanocobalamin) IM Intramuscular Aug 08, 2019 Ad ministered SOCIAL HISTORY Tobacco Use: Social History Observation Description Date Details (start date - stop date) Never Smoker Sex Assigned At : Social History Observation Description Sex Assigned At Unknown PHQ9 Question Answer Notes Little interest or pleasure in doing things Several days Feeling down, depressed, or hopeless Several days Trouble falling or staying asleep or sleeping too much More than half the days Feeling tired or having little energy Nearly every day Poor appetite or overeating Nearly every day Feeling bad about yourself, or that you are a failure, Not a t all or have let yourself or your family down Trouble concentrating on things, such as reading the Several days newspaper or watching television Moving or speaking so slowly that other people could Several days have noticed; or the opposite, being so fidgety or restless that you have been moving around a lot more than usual Total Score 12 Interpretation Moderate Depression Thoughts that you would be better off or of Not at all hurting yourself in some way Alcohol Screen Question Answer Notes Did you have a drink containing alcohol in the past year? No Points 0 Interpretation Negative Tobacco Use/Smoking Question Answer Notes Are you a never smoker REASON FOR REFERRAL No Information VITAL SIGNS No information MEDICATIONS Medication SIG (Take, Route, Start Date End Date Status Frequency, Duration) Eliquis 5 MG 1 tablet Orally twice Active a day HydrALAZINE HCl 100 MG as directed Orally November, Not-Taking Three times a day Probiotic - Orally Active Crestor 40 MG 1 EACH ONCE A DAY Active Rosuvastatin Calcium 40 MG TAKE 1 TABLET BY MOUTH Not-Taking DAILY for 90 Sertraline HCl 25 MG 1 tablet Orally Once a Not-Taking day for 30 day(s) HydrALAZINE HCl 100 MG 1 tablet with food Active Orally Three times a day Vitamin D3 1000 UNIT 1 capsule Orally Once Not-Taking a day Multivitamin Active Carvedilol 25 MG as directed Orally Activ e Omeprazole 40 MG 1 EACH ONCE A DAY Not-Ta sofiya orally daily in AM for 90 days Methenamine Hippurate 1 GM 1 tablet Orally Twice Not-Taking a day for 30 day(s) Estradiol 0.1 MG/GM as directed Vaginal Jan, N ot-Taking Two times a Week for 90 days Coreg 25 MG Orally Active Plavix 75 MG 1 tablet Orally Once a Not-T aking day Sodium Chloride 1000 MG 1 tablet Orally every Active 6 hours Tylenol Arthritis Pain Not-T aking Sodium Chloride 1 GM TAKE 2 TABLET in AM Active and 1 tab EVERY 6 HOURS Orally for 90 days Montelukast Sodium 10 MG 1 tablet Orally Once a Sep, Not-Taking day for 90 days Cranberry Concentrate 425 1 capsule with meals Active MG Orally Amlodipine Besylate 10 MG 1 tablet Orally Once a Active day for 30 day(s) Omeprazole 40 TAKE 1 CAPSULE BY Not-Takin g MOUTH EVERY DAY for 90 Cyanocobalamin 1000 15 ml Orally Once a N ot-Taking MCG/15ML day Irbesartan 150 MG 1 tablet Orally Once a Active day for 30 day(s) Metformin HCl 500 TAKE 1 TABLET BY MOUTH Active TWICE DAILY for 90 Vitamin B-12 Not-Taking Levetiracetam 250 MG 1 tablet Orally every Not-Taking 12 hrs Levothyroxine Sodium 125 1 tablet in the Active MCG morning on an empty stomach Orally Once a day Sodium Chloride 1000 MG 1 tablet Orally 5 Feb, Aug, Active times daily for 90 days Vitamin E 400 UNIT Orally Active Trimethoprim 100 MG 1 tablet Orally Once a Active day for 90 Metformin HCl 500 MG 1 tablet with meals Active Orally Twice a day Magnesium 500 MG Orally Active Rosuvastatin Calcium 40 TAKE 1 TABLET BY MOUTH Active DAILY for 90 PROCEDURES No Information RESULTS No Results REASON FOR VISIT Fall MEDICAL (GENERAL) HISTORY Type Description Date Medical History Type 2 diabetes Medical History Hypertension Medical History Hyperlipidemia Medical History GERD (gastroesophageal reflux disease) Medical History Obstructive sleep apnea Medical History Obesity Medical History Allergic rhinitis Medical History Recurrent urinary tract infection Medical History Overactive bladder Medical History Renal cyst Medical History Abnormal mammogram Surgical History tonsillectomy 1946 Surgical History cholecystectomy Surgical History bone spurs removed 1996 Surgical History triple coronary artrery bypass graft 200 4 Surgical History 3 stents in rt kidney 2003 Surgical History colon polyps removed 12/2011 Surgical History total abdominal hysterectomy 1973 Surgical History blood clot in lung Surgical History cataracts Goals Section No Information Health Concerns No Information MEDICAL EQUIPMENT No Information MENTAL STATUS No Information FUNCTIONAL STATUS No Information ASSESSMENTS No Information PLAN OF TREATMENT Medication Medication Name Sig Start Date Stop Date Coreg 25 MG Orally HydrALAZINE HCl 100 MG 1 tablet with food Orally Three times a day Amlodipine Besylate 10 MG 1 tablet Orally Once a day for 30 day(s) Irbesartan 150 MG 1 tablet Orally Once a day for 30 day(s) Sodium Chloride 1000 MG 1 tablet Orally every 6 hours Next Appt Details Provider Name:Elli Britt, 2020-04-23 11:2 0:00 AM, [address], [address], [place], [address], Provider Name:Adamaris Cifuentes, 10:15:00 AM, [address], [address], [place], [address], Insurance Providers Payer Name Payer Payer Insured Patient Coverage Coverage End Address Phone Name Relationship to Start Date Dwain e Insured [facility] [address] [address] [phone] Rodri Lara [address] [employer] [place] [address] [place] [id number]
--- OUTSIDE RECORDS SUMMARY | 2020-05-01 21:17 | XMS REPORT ---
[...] ND 0 Active not Pain defined Methenamine [facility] 44244173550 1 GM Orally Active 1 ta blet Hippurate Twice a day Irbesartan [facility] [place] 83551991635 150 MG Orally Active 1 t ablet Once a day Vitamin B-12 [facility] [place] [address] Active not defined Crestor [facility] [place] [place] 94998165317 40 MG Active 1 EACH ONCE A DAY Metformin HCl [facility] [place] [place] 03729812553 500 MG Orally Active 1 tablet Twice a day with meals Vitamin E [facility] [place] [place] 22065249653 400 UNIT Orally Active no t defined Omeprazole [facility] 12120066607 40 Active TAKE 1 CAPSULE BY MOUTH EVERY DAY Amlodipine [facility] [place] 86026356760 10 MG Orally Active 1 ta blet Besylate Once a day Eliquis [facility] 27259948885 5 MG Orally Active 1 tablet twice a day Multivitamin [facility] [place] [address] Active not defined Probiotic [facility] [place] [place] 58575604519 - Orally Active not defined Trimethoprim [facility] [place] 73473562229 100 MG Orally Active 1 tablet Once a day Magnesium [facility] [place] 39703638873 500 MG Orally Active not defined Estradiol [facility] [place] [place] 70525108460 0.1 MG/GM January Active as Vaginal Two 22, directed times a Week 2018 Levetiracetam [facility] [place] [place] 38094006489 250 MG Orally Active 1 tablet every 12 hrs Montelukast [facility] [place] 22976777280 10 MG Orally September Active 1 t ablet Sodium Once a day 2019 Coreg [facility] [place] [place] 47873820416 25 MG Orally Active not defined Metformin HCl [facility] [place] 46615275583 500 Active TAKE 1 TABLET BY MOUTH TWICE DAILY Rosuvastatin [facility] [place] 30479765935 40 Active TAKE 1 Calcium TABLET BY MOUTH DAILY Sodium Chloride [facility] [place] [address]-27 1000 MG Orally Act marty 1 tablet every 6 hours Sertraline HCl [facility] [place] 38747673636 25 MG Orally Active 1 tablet Once a day Rosuvastatin [facility] [place] 60598693798 40 MG Active TAKE 1 Calcium TABLET BY MOUTH DAILY Vitamin D3 [facility] [place] 86073711530 1000 UNIT Active 1 capsu le Orally Once a day Cyanocobalamin [facility] [place] [address]-26 1000 MCG/15ML Activ e 15 ml Orally Once a day Omeprazole [facility] [place] 06842469122 40 MG orally Active 1 EA CH daily in AM ONCE A DAY Plavix [facility] [place] [place] 41082435494 75 MG Orally Active 1 table t Once a day Carvedilol [facility] [place] 98467091049 25 MG Orally Active as directed HydrALAZINE HCl [facility] [place] 55821227831 100 MG Orally December 05, Active as Three times a 2017 directed day HydrALAZINE HCl [facility] [place] 98429684143 100 MG Orally Active 1 tablet Three times a with food day Levothyroxine [facility] [place] 44421869274 125 MCG Orally Active 1 tablet Sodium Once a day in the morning on an empty stomach Sodium Chloride [facility] [place] [place] 62474536717 1 GM Orally Active TAKE 2 TABLET in AM and 1 tab EVERY 6 HOURS Sodium Chloride [facility] [place] [address]-78 1000 MG Orally Mar 10Aug Act marty 1 tablet 5 times daily 2019 Cranberry [facility] [place] [address] 425 MG Orally Active 1 ca psule Concentrate with meals Results No Known Results Summary Purpose eClinicalWorks Submission
--- OUTSIDE RECORDS SUMMARY | 2020-05-01 21:17 | XMS REPORT ---
:1935 Author Organization [facility] Address [address], [address] [place] [address] Care Team Providers Name Role Phone Britt Unavailable [phone] PROBLEMS Type Condition ICD9-CM [id number] Onset Condition SNOMED Code Notes Code Code Dates Status Problem 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 Active 728254388 Problem Overactive bladder N32.81 Active 745506957 Problem Chronic a-fib I48.2 Active 22197051 Problem GERD K21.9 Active 731235859 (gastroesophageal reflux disease) Problem Obstructive sleep G47.33 Active 98206942 apnea Problem Hypertension I10 Active 19216783 Problem Obesity E66.9 Active 876314635 Problem Stress at home F43.9 Active 899417840 Problem Mild depression F32.0 Active 295380898 Problem Recurrent urinary N39.0 Active 385850301 tract infection Problem History of TIA Z86.73 Active 409195353 (transient ischemic attack) Problem Type 2 diabetes E11.9 Active 983313665 Problem Atherosclerosis I70.90 Active 34811043 Problem Hospital discharge Z09 Active 558532308 follow-up Problem 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 053457525652581 carotid artery Problem Other speech R47.89 Active 34412470 disturbance Problem Elevated TSH R79.89 Active 057974361 Problem Chronic fatigue R53.82 Active 47542015 Problem Memory change R41.3 Active 22940431 Problem Other chronic pain G89.29 Active 11149139 Problem Mixed stress and N39.46 Active 761896423 urge urinary incontinence Problem Gastroesophageal K21.9 Active 404728262 reflux disease, esophagitis presence not specified Problem Hyperlipidemia E78.5 Active 77021147 Problem Hyponatremia E87.1 Active 86701128 Problem Allergic rhinitis J30.9 Active 28213770 Problem Abnormal mammogram R92.8 Active 380583251 Problem Acquired E03.9 Active 662890765 hypothyroidism Problem Seizure disorder G40.909 Active 810355175 Problem Seasonal allergic J30.2 Active 665156232 rhinitis, unspecified trigger Problem 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 Active 197648400 multiple joints, unspecified osteoarthritis type ALLERGIES Allergen (clinical drug Drug/Non Drug Reaction Allergy Type Onset D ate Status ingredient) Allergy documented on EMR sertraline Zoloft([facility] Unknown Drug Allergy Active Code:[address]-55) Iodine contrast dye Unknown Non Drug Allergy Active niacin Niacin([facility] Unknown Drug Allergy Active Code:[address]-21) aspirin Aspirin([facility] Unknown Drug Allergy Active Code:[address]-96) clonidine CloNIDine([facility] Unknown Drug Allergy Active Code:[address]-87) nitrofurantoin Macrodantin([facility] Unknown Drug Allergy Act marty Code:[address]-07) codeine codeine Unknown Drug Allergy Active Nitrous oxide Unknown Non Drug Allergy Activ e lisinopril Lisinopril([facility] Unknown Drug Allergy Active Code:[address]-58) Vicodin Unknown Drug Allergy Active ENCOUNTERS from 1935 to 2020-04-24 Encounter Location Date Provider Diagnosis [facility] [address] [facility] [address] [place], Na Britt [facility] [address], [facility], [address] ; [place] [address] Hyponatremia E 87.1 ; Seizure disorde r G40.909 ; Hypertension I10 ; Acquired hypoth yroidism E03.9 ; Hyperli pidemia E78.5 and Weakn ess R53.1 IMMUNIZATIONS Vaccine Route Administration Date Status Vitamin [...] Start Date End Date Status Frequency, Duration) Metformin HCl 500 MG 1 tablet with meals Active Orally Twice a day Carvedilol 25 MG as directed Orally Activ e Levetiracetam 250 MG 1 tablet Orally every Not-Taking 12 hrs Irbesartan 150 MG 1 tablet Orally Once a Active day for 30 day(s) Vitamin B-12 Not-Taking Montelukast Sodium 10 MG 1 tablet Orally Once a Sep, Not-Taking day for 90 days HydrALAZINE HCl 100 MG 1 tablet with food Active Orally Three times a day Eliquis 5 MG 1 tablet Orally twice Active a day Cyanocobalamin 1000 15 ml Orally Once a N ot-Taking MCG/15ML day Rosuvastatin Calcium 40 MG TAKE 1 TABLET BY MOUTH Active DAILY for 90 Sertraline HCl 25 MG 1 tablet Orally Once a Not-Taking day for 30 day(s) Tylenol Arthritis Pain Not-T aking Crestor 40 MG 1 EACH ONCE A DAY Active Magnesium 500 MG Orally Active Methenamine Hippurate 1 GM 1 tablet Orally Twice Not-Taking a day for 30 day(s) Omeprazole 40 TAKE 1 CAPSULE BY Not-Takin g MOUTH EVERY DAY for 90 Trimethoprim 100 MG 1 tablet Orally Once a Active day for 90 Amlodipine Besylate 10 MG 1 tablet Orally Once a Active day for 30 day(s) Cranberry Concentrate 425 1 capsule with meals Active MG Orally Coreg 25 MG Orally Active Vitamin D3 1000 UNIT 1 capsule Orally Once Not-Taking a day HydrALAZINE HCl 100 MG as directed Orally November, Not-Taking Three times a day Metformin HCl 500 TAKE 1 TABLET BY MOUTH Active TWICE DAILY for Plavix 75 MG 1 tablet Orally Once a Not-T aking day Estradiol 0.1 MG/GM as directed Vaginal Jan, N ot-Taking Two times a Week for 90 days Levothyroxine Sodium 125 1 tablet in the Active MCG morning on an empty stomach Orally Once a day Sodium Chloride 1000 MG 1 tablet Orally every Active 6 hours Rosuvastatin Calcium 40 TAKE 1 TABLET BY MOUTH Active DAILY for 90 Omeprazole 40 MG 1 EACH ONCE A DAY Not-Ta sofiya orally daily in AM for 90 days Probiotic - Orally Active Vitamin E 400 UNIT Orally Active Multivitamin Active Sodium Chloride 1000 MG 1 tablet Orally Feb, Aug, Active times daily for 90 days Sodium Chloride 1 GM TAKE 2 TABLET in AM Active and 1 tab EVERY 6 HOURS Orally for 90 days PROCEDURES No Information RESULTS No Results REASON FOR VISIT 4 week follow up MEDICAL (GENERAL) HISTORY Type Description Date Medical [...] removed 12/2011 Surgical History total abdominal hysterectomy 1972 Surgical History blood clot in lung Surgical History cataracts Goals Section No Information Health Concerns No Information MEDICAL EQUIPMENT No Information MENTAL STATUS No Information FUNCTIONAL STATUS No Information ASSESSMENTS Encounter Date Diagnosis Notes Mar, Hyperlipidemia (ICD-10 - E78.5) Mar, Acquired hypothyroidism (ICD-10 - E03.9) Mar, Weakness (ICD-10 - R53.1) Mar, Hyponatremia (ICD-10 - E87.1) Mar, Traumatic ecchymosis of face, sequela (I CD-10 - S00.83XS) Mar, Hypertension (ICD-10 - I10) Mar, Seizure disorder (ICD-10 - G40.909) PLAN OF TREATMENT Medication Medication Name Sig Start Date Stop Date Amlodipine Besylate 10 MG 1 tablet Orally Once a day for 30 day(s) Sodium Chloride 1000 MG 1 tablet Orally every 6 hours Irbesartan 150 MG 1 tablet Orally Once a day for 30 day(s) Coreg 25 MG Orally HydrALAZINE HCl 100 MG 1 tablet with food Orally Three times a day Treatment Notes Assessment Notes Clinical Notes Traumatic ecchymosis of face, improving advised fall precaut ions sequela Hyponatremia will monitor sodium this week to make sure sodium in normal range. continue sodium chloride tabsf/u with nephro Seizure disorder controlled on vipmat new antiseizure medication started on by doing well no reported fatigue or seizures. Hypertension Maintian a low salt DASH diet, exercise, weight loss and decrease stress recommended. Keep BP log and will review next visit. If blood pressure consistently above 140/90 return to clinic for adjustment of meds. Try to quit smoking if you currently smoke. Decrease caffeine intake if possible.-- also has chronic afib will followup with cardiology and continue home health to monitor BP Acquired hypothyroidism continue levothyroxine 75 mcg once a day . Patient has hypothyroidism stable on current levothyroxne with no major complaints. Patient is taking medication daily no missing doses and taking it first thing in AM with water at least 30 mins before and after other meds. Weakness improved Treatment Notes Test Name Order Date Lipid Panel w/ Chol/HDL Ratio 2020-04-24 Comp. Metabolic Panel (14) (CMP) 2020-04-24 CBC With Differential/Platelet 2020-04-24 TSH reflex to T4F 2020-04-24 Next Appt Details 3 Months las 1 week prior Reason: Provider Name:Elli Britt, 2020-07-15 08:3 0:00 AM, [address], [address], [place], [address], Provider Name:Elli Britt, 2020-07-22 01:0 0:00 PM, [address], [address], [place], [address], Provider Name:Adamaris Cifuentes, 10:15:00 AM, [address], [address], [place], [address], Insurance Providers Payer Name Payer Payer Insured Patient Coverage Coverage End Address Phone Name Relationship to Start Date Dwain e Insured [employer] [address] [address] [phone] Rodri Lara self [address] [employer] [facility] [address] [id number]
== END 2020-04-30 17:18 | disposition home or self-care (01) ==
LOC: ER 13:49
DX: R53.1 Weakness (principal); I10 Essential (primary) hypertension; E78.5 Hyperlipidemia, unspecified; E11.9 Type 2 diabetes mellitus without complications; I48.91 Unspecified atrial fibrillation; Z95.1 Presence of aortocoronary bypass graft; Z79.01 Long term (current) use of anticoagulants; Z88.5 Allergy status to narcotic agent; Z88.6 Allergy status to analgesic agent; Z88.8 Allergy status to other drugs, medicaments and biological substances; Z86.73 Personal history of transient ischemic attack (TIA), and cerebral infarction without residual deficits; Z91.041 Radiographic dye allergy status
CPT/HCPCS: 96361; 93005; 85025; 80048; 36415; 80076; 84484; 83690; 71045; 96375; 96374; 99285; J7040 ×2; J2405

== ENCOUNTER 2020-05-30 14:10 | Emergency (ER) | payer OTHER ==
--- OUTSIDE RECORDS SUMMARY | 2020-05-30 14:13 | XMS REPORT | Clinical Summary ---
:1935 Author Organization [facility] Address [address] [place] [address] Care Team Providers Name Role Phone Unavailable [...] 42-Bifid Take 1 tablet by 0 Active 3-pvutxr-CXK (PROBIOTIC mouth daily. PLUS COLOSTRUM) 30-500-50 mg PwPk fntvajjr-gqk-yhntaus Take 1 tablet by 0 Active fumarate [...] Assigned at Date Recorded Not on file Last Filed Vital Signs Not on file Plan of Treatment Health Maintenance Due Date Last Done Comments DIABETIC EYE EXAM 1946 DIABETIC FOOT EXAM 1945 URINE MICROALBUMIN 1946 PNEUMOCOCCAL 65+ YRS (1 of 1 - 2001 [id number] PCV13) MEDICARE ANNUAL WELLNESS (YEAR 2 or FIRST 07/26/2019 YEAR if no IPPE) HEMOGLOBIN A1C 10/30/2019 04/30/2019, 11/20/2017 INFLUENZA VACCINE (#1) 2020 Results Not on fileafter 05/30/2019 Insurance Payer Benefit Plan / Subscriber ID Effective Dates Phone Addre ss Type Group [employer] [id number] 2018-Emelyn Olivas Contracted ALL t Advance Directives For more information, please contact: [phone] Code Status Date Activated Date Inactivated Comments [...]
--- OUTSIDE RECORDS SUMMARY | 2020-05-30 14:15 | XMS REPORT ---
[...] Status Dos age Date Sodium Chloride [facility] [address] 1000 MG Orally 5 Mar 10, Aug 12, Activ e 1 tablet 1-50 times daily 2019 2020 Results No Known Results Summary Purpose eClinicalWorks Submission
--- OUTSIDE RECORDS SUMMARY | 2020-05-30 14:15 | XMS REPORT ---
[...] ND 0 Active not Pain defined Methenamine [facility] 47578192012 1 GM Orally Active 1 ta blet Hippurate Twice a day Irbesartan [facility] 66404056645 150 MG Orally Active 1 t ablet Once a day Vitamin B-12 [facility] [address] Active not defined Crestor [facility] 59246354578 40 MG Active 1 EACH ONCE A DAY Metformin HCl [facility] 35093898400 500 MG Orally Active 1 tablet Twice a day with meals Vitamin E [facility] 98715638817 400 UNIT Orally Active no t defined Omeprazole [facility] 68874684156 40 Active TAKE 1 CAPSULE BY MOUTH EVERY DAY Amlodipine [facility] 71981232342 10 MG Orally Active 1 ta blet Besylate Once a day Eliquis [facility] 72846187037 5 MG Orally Active 1 tablet twice a day Multivitamin [facility] 17[address] Active not defined Probiotic [facility] 75221441585 - Orally Active not defined Trimethoprim [facility] 35668283770 100 MG Orally Active 1 tablet Once a day Magnesium [facility] 60449631736 500 MG Orally Active not defined Estradiol [facility] 15547868427 0.1 MG/GM January Active as Vaginal Two 22, directed times a Week 2018 Levetiracetam [facility] 24534760711 250 MG Orally Active 1 tablet every 12 hrs Montelukast [facility] 24341747143 10 MG Orally September Active 1 t ablet Sodium Once a day 2019 Coreg [facility] 37053634189 25 MG Orally Active not defined Metformin HCl [facility] 23899872303 500 Active TAKE 1 TABLET BY MOUTH TWICE DAILY Rosuvastatin [facility] 17874783870 40 Active TAKE 1 Calcium TABLET BY MOUTH DAILY Sodium Chloride [facility] [address]-85 1000 MG Orally Act marty 1 tablet every 6 hours Sertraline HCl [facility] 10474538069 25 MG Orally Active 1 tablet Once a day Rosuvastatin [facility] 01808313353 40 MG Active TAKE 1 Calcium TABLET BY MOUTH DAILY Vitamin D3 [facility] 72641774187 1000 UNIT Active 1 capsu le Orally Once a day Cyanocobalamin [facility] [address]-84 1000 MCG/15ML Activ e 15 ml Orally Once a day Omeprazole [facility] 33346712126 40 MG orally Active 1 EA CH daily in AM ONCE A DAY Plavix [facility] 02752957021 75 MG Orally Active 1 table t Once a day Carvedilol [facility] 25297588014 25 MG Orally Active as directed HydrALAZINE HCl [facility] 12877609820 100 MG Orally December 05, Active as Three times a 2017 directed day HydrALAZINE HCl [facility] 45807637773 100 MG Orally Active 1 tablet Three times a with food day Levothyroxine [facility] 56653897579 125 MCG Orally Active 1 tablet Sodium Once a day in the morning on an empty stomach Sodium Chloride [facility] 70240918454 1 GM Orally Active TAKE 2 TABLET in AM and 1 tab EVERY 6 HOURS Sodium Chloride [facility] [address]-28 1000 MG Orally Mar 10Aug Act marty 1 tablet 5 times daily 2019 Cranberry [facility] [address] 425 MG Orally Active 1 ca psule Concentrate with meals Results No Known Results Summary Purpose eClinicalWorks Submission
--- OUTSIDE RECORDS SUMMARY | 2020-05-30 14:15 | XMS REPORT ---
[...] Status Dosage System Date Date Vitamin E [facility] 55714622181 400 UNIT Orally Active no t defined Rosuvastatin [facility] 27434555928 40 Active TAKE 1 Calcium TABLET BY MOUTH DAILY Levothyroxine [facility] 03180174200 125 MCG Orally Active 1 tablet Sodium Once a day in the morning on an empty stomach Eliquis [facility] 50275574530 5 MG Orally Active 1 tablet twice a day Plavix [facility] 27978266412 75 MG Orally Active 1 table t Once a day Sertraline HCl [facility] 82178410218 25 MG Orally Active 1 tablet Once a day Montelukast [facility] 15594337043 10 MG Orally September Active 1 t ablet Sodium Once a day 2019 Magnesium [facility] 98654003486 500 MG Orally Active not defined Cranberry [facility] [address]58 425 MG Orally Active 1 ca psule Concentrate with meals Augmentin [facility] 52636128200 500-125 MG Mar 03Feb Active 1 table t Orally every 2019 17, hrs 2019 Omeprazole [facility] 17342124141 40 MG orally Active 1 EA CH daily in AM ONCE A DAY Vitamin D3 [facility] 05309253014 1000 UNIT Active 1 capsu le Orally Once a day Vitamin B-12 [facility] [address]68 Active not defined Omeprazole [facility] 32241634643 40 Active TAKE 1 CAPSULE BY MOUTH EVERY DAY Coreg [facility] 79697760193 25 MG Orally Active not defined Multivitamin [facility] [address] Active not defined Probiotic [facility] 32082467853 - Orally Active not defined Sodium Chloride [facility] [address]-00 1000 MG Orally Act matry 1 tablet every 6 hours Tylenol Arthritis NDC 0 Active not Pain defined Methenamine [facility] 80097199706 1 GM Orally Active 1 ta blet Hippurate Twice a day Crestor [facility] 44767753506 40 MG Active 1 EACH ONCE A DAY Carvedilol [facility] 88401613663 25 MG Orally Active as directed Levetiracetam [facility] 39944085154 250 MG Orally Active 1 tablet every 12 hrs Metformin HCl [facility] 72971041826 500 Active TAKE 1 TABLET BY MOUTH TWICE DAILY Metformin HCl [facility] 79924049698 500 MG Orally Active 1 tablet Twice a day with meals Cyanocobalamin [facility] [address]-75 1000 MCG/15ML Activ e 15 ml Orally Once a day Irbesartan ND 82916721702 150 MG Orally Active 1 t ablet Once a day HydrALAZINE HCl [facility] 73227142662 100 MG Orally December 05, Active as Three times a 2018 directed day HydrALAZINE HCl [facility] 73299180625 100 MG Orally Active 1 tablet Three times a with food day Amlodipine ND 97602590051 10 MG Orally Active 1 ta blet Besylate Once a day Estradiol [facility] 17930825521 0.1 MG/GM January Active as Vaginal Two 22, directed times a Week 2018 Trimethoprim ND 73612055183 100 MG Orally Active 1 tablet Once a day Rosuvastatin [facility] 81855270250 40 MG Active TAKE 1 Calcium TABLET BY MOUTH DAILY PredniSONE ND 36833778474 10 MG Orally Mar 03, Feb Active 2 ta blet Once a day 2019 20, daily x 5 2019 days then one tablet daily x 5 days Results No Known Results Summary Purpose eClinicalWorks Submission
--- OUTSIDE RECORDS SUMMARY | 2020-05-30 14:15 | XMS REPORT ---
[...] End Status Dosage System Date Date Montelukast [facility] 30685038614 10 MG Orally September Active 1 t ablet Sodium Once a day 2019 Omeprazole [facility] 94775664883 40 Active TAKE 1 CAPSULE BY MOUTH EVERY DAY Vitamin B-12 [facility] [address] Active not defined Methenamine [facility] 33734706905 1 GM Orally Active 1 ta blet Hippurate Twice a day Probiotic [facility] 72698460798 - Orally Active not defined Irbesartan [facility] 85004943044 150 MG Orally Active 1 t ablet Once a day Metformin HCl [facility] 43515757927 500 MG Orally Active 1 tablet Twice a day with meals Cyanocobalamin [facility] [address]-67 1000 MCG/15ML Activ e 15 ml Orally Once a day Estradiol [facility] 21801582026 0.1 MG/GM January Active as Vaginal Two 22, directed times a Week 2018 Carvedilol [facility] 38672575058 25 MG Orally Active as directed Magnesium [facility] 74707173000 500 MG Orally Active not defined Rosuvastatin [facility] 59437261728 40 Active TAKE 1 Calcium TABLET BY MOUTH DAILY Coreg [facility] 61538671621 25 MG Orally Active not defined Trimethoprim [facility] 65270573061 100 MG Orally Active 1 tablet Once a day PredniSONE [facility] 44490058699 10 MG Orally Mar 03Feb Active 2 ta blet Once a day 2019 20, daily x 5 2019 days then one tablet daily x 5 days Levetiracetam [facility] 00025427941 250 MG Orally Active 1 tablet every 12 hrs Tylenol Arthritis NDC 0 Active not Pain defined Omeprazole [facility] 02007826525 40 MG orally Active 1 EA CH daily in AM ONCE A DAY Metformin HCl [facility] 69521882215 500 Active TAKE 1 TABLET BY MOUTH TWICE DAILY HydrALAZINE HCl [facility] 86726858143 100 MG Orally Active 1 tablet Three times a with food day Plavix [facility] 37367044333 75 MG Orally Active 1 table t Once a day Sertraline HCl [facility] 37216437480 25 MG Orally Active 1 tablet Once a day Augmentin [facility] 54546063599 500-125 MG Mar 03Feb Active 1 table t Orally every 12 2019 17, hrs 2019 HydrALAZINE HCl [facility] 88884361707 100 MG Orally December 05, Active as Three times a 2017 day Levothyroxine [facility] 32603096154 125 MCG Orally Active 1 tablet Sodium Once a day in the morning on an empty stomach Sodium Chloride [facility] [address]-09 1000 MG Orally Act marty 1 tablet every 6 hours Rosuvastatin [facility] 70751776325 40 MG Active TAKE 1 Calcium TABLET BY MOUTH DAILY Crestor [facility] 56817572246 40 MG Active 1 EACH ONCE A DAY Amlodipine [facility] 02409877339 10 MG Orally Active 1 ta blet Besylate Once a day Vitamin D3 [facility] 86890560270 1000 UNIT Active 1 capsu le Orally Once a day Multivitamin [facility] [address] Active not defined Cranberry [facility] [address] 425 MG Orally Active 1 ca psule Concentrate with meals Eliquis [facility] 25808734003 5 MG Orally Active 1 tablet twice a day Vitamin E [facility] 21255609737 400 UNIT Orally Active no t defined Results No Known Results Summary Purpose eClinicalWorks Submission
--- OUTSIDE RECORDS SUMMARY | 2020-05-30 14:15 | XMS REPORT ---
:1935 Author Organization [facility] Address [address] [place] [address] Care Team Providers Name Role Phone Britt Unavailable [phone] PROBLEMS Type Condition ICD9-CM [id number] Onset Condition SNOMED Code Notes Code Code Dates Status Problem 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 Active 500247897 Problem Overactive bladder N32.81 Active 585467948 Problem Chronic a-fib I48.2 Active 20458493 Problem GERD K21.9 Active 389907296 (gastroesophageal reflux disease) Problem Obstructive sleep G47.33 Active 80915861 apnea Problem Hypertension I10 Active 51251064 Problem Obesity E66.9 Active 841947641 Problem Stress at home F43.9 Active 539323259 Problem Mild depression F32.0 Active 141630473 Problem Recurrent urinary N39.0 Active 592971874 tract infection Problem History of TIA Z86.73 Active 723683762 (transient ischemic attack) Problem Type 2 diabetes E11.9 Active 005479413 Problem Atherosclerosis I70.90 Active 52805340 Problem Hospital discharge Z09 Active 644426265 follow-up Problem 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 288390378898928 carotid artery Problem Other speech R47.89 Active 22111580 disturbance Problem Elevated TSH R79.89 Active 697989402 Problem Chronic fatigue R53.82 Active 84672314 Problem Memory change R41.3 Active 13592373 Problem Other chronic pain G89.29 Active 38977109 Problem Mixed stress and N39.46 Active 291907551 urge urinary incontinence Problem Gastroesophageal K21.9 Active 291848182 reflux disease, esophagitis presence not specified Problem Hyperlipidemia E78.5 Active 94204821 Problem Hyponatremia E87.1 Active 65136675 Problem Allergic rhinitis J30.9 Active 20155168 Problem Abnormal mammogram R92.8 Active 237035689 Problem Acquired E03.9 Active 661160127 hypothyroidism Problem Seizure disorder G40.909 Active 812643536 Problem Seasonal allergic J30.2 Active 373331127 rhinitis, unspecified trigger Problem 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 Unknown Drug Allergy Active Code:[address]-97) Iodine contrast dye Unknown Non Drug Allergy Active niacin Niacin([facility] Unknown Drug Allergy Active Code:[address]-98) aspirin Aspirin([facility] Unknown Drug Allergy Active Code:[address]-00) clonidine CloNIDine([facility] Unknown Drug Allergy Active Code:[address]-31) nitrofurantoin Macrodantin([facility] Unknown Drug Allergy Act marty Code:[address]-58) codeine codeine Unknown Drug Allergy Active Nitrous oxide Unknown Non Drug Allergy Activ e lisinopril Lisinopril([facility] Unknown Drug Allergy Active Code:[address]-77) Vicodin Unknown Drug Allergy Active ENCOUNTERS from 1935 to 2020-04-17 Encounter Location Date Provider Diagnosis [facility] [address] [address] Mar, 2020 [place] [address] IMMUNIZATIONS Vaccine Route Administration Date Status Vitamin [...] 0:00 AM, [address], [place], [address], Provider Name:Adamaris Cifuentes, 10:15:00 AM, [address], [address], [place], [address], Insurance Providers Payer Name Payer Payer Insured Patient Coverage Coverage End Address Phone Name Relationship to Start Date Dwain e Insured [facility] [address] [address] [phone] Rodri Lara [address] [employer] [place] [address] [place] [phone]
--- OUTSIDE RECORDS SUMMARY | 2020-05-30 14:15 | XMS REPORT | Continuity of Care Document ---
:1935 Author Organization [facility] t Address [address] [place] [address] Care Team Providers Name Role Phone MIR MENDENHALL Attending Clinician Unavailable JAMAAL MJEIA Attending Clinician Unavailable MIR MENDENHALL Admitting Clinician Unavailable JAMAAL MEJIA Admitting Clinician Unavailable Problems Condition Condition Condition Status Onset [...] Disease 00 e Expressive Expressive Disease Active 2018-[address] aphasia aphasia 11-19 [facility] [...] Active Info Not [facility] Reaction Available [facility] Macrodan Adverse Active Info Not [facility] tin Reaction Available [facility] Lisinopr Adverse Active Info Not [facility] il Reaction Available [facility] Aspirin Adverse Active Info Not [facility] Reaction Available [facility] Nitrous Adverse Active Info Not [facility] oxide Reaction Available [facility] Iodine Adverse Active Info Not [facility] contrast Reaction Available Cristian es - dye [facility] Vicodin Adverse Active Info Not [facility] Reaction Available [facility][note 3] Niacin Adverse Active Info Not [facility] Reaction Available [facility][note 3] Social History Social Habit Start Date Stop Date Quantity Comments Source Sex Assigned At [facility] Tobacco use and 2019-04-30 2019-04-30 Never used [facility] St Cyndi kes - exposure 00:00:00 00:00:00 [facility] Smoking Status Start Date Stop Date Source Never smoker [facility] Medications Ordered Filled Start Stop Current Ordering Indication Dosage Frequency Signature Comments Components Source Medication Medication Date Date Medication? Clinician (SIG) Name Name Sodium Sodium 2020- Yes Na Britt [address] Chloride Chloride 8-17 -12 [facility] - 00:00: 00:00 Memoria 00 :00 [facility] Montelukast Montelukast Yes Na Britt [address] [facility] Sodium Sodium 3-20 [facility] - 00:00: Memoria 00 [facility] carvedilol 2018-07 Yes 25mg Take [address] (COREG) 25 0-08 by mouth 2 Cristian es - MG tablet 16:46: (two) Medical 41 times Center daily with breakfast and dinner. rosuvastati 2018-07 Yes 40mg QD Take [address] n (CRESTOR) 0-08 by mouth Luke s - 40 MG 16:46: daily. Medical tablet [address] [place] [address] apixaban 2018-07 Yes 5mg Q.5D Take [address] (ELIQUIS) 5 0-08 by mouth 2 Cyndi kes - mg Tab 16:46: (two) Medical tablet 41 times Center daily. hydrALAZINE 2018-07 Yes 100mg [id number] Take [address] (APRESOLINE 0-08 [id number] mg by L ukes - ) 100 MG 16:46: 3D mouth 3 Medica l tablet 41 (three) Center times daily. magnesium 2018-07 Yes 500mg QD Take [address] gluconate 0-08 mg by [facility]ukes - (MAGONATE) 16:46: mouth Medica l 27.5 mg 41 daily . [place] (500 mg) tablet metFORMIN 2018-07 Yes 500mg Take [address] [facility] (GLUCOPHAGE 0-08 mg by [facility]ukes - ) 500 MG 16:46: mouth 2 Medica l tablet 41 (two) Center times daily with breakfast and dinner. omeprazole 2018-07 Yes 40mg QD Take [address] (PRILOSEC) 0-08 by mouth [facility] - 40 MG 16:46: daily. Medical capsule 41 Center valsartan 2018-07 Yes 160mg QD Take [address] (DIOVAN) 0-08 mg by [facility] - 160 MG 16:46: mouth Medical tablet 41 daily. Center verapamil 2018-07 Yes 240mg QD Take [address] (VERELAN 0-08 mg by [facility] - PM) 240 MG 16:46: mouth Medica l 24 hr 41 nightly. [place] capsule cyanocobala 2018-07 Yes 1000ug QD Take 1,[address] min 0-08 mcg by Lukes - (VITAMIN 16:46: mouth Medical B-12) 1000 41 daily. [place] MCG tablet cholecalcif 2018-07 Yes 1000U QD Take 1,[address] roly, 0-08 Units by [facility] - vitamin D3, 16:46: mouth Medic al 1,000 unit 41 daily. [place] capsule clopidogrel 2018-07 Yes 75mg QD Take [address] (PLAVIX) 75 0-08 by mouth Luke s - mg tablet 16:46: daily. Medica l 41 [place] sertraline 2018-07 Yes 25mg QD Take [address] (ZOLOFT) 25 0-08 by mouth Luke s - MG tablet 16:46: daily. Medica l 41 [place] cranberry 2018-07 Yes 4200mg Q.5D Take 4,[address] conc-ascorb 0-08 mg by [facility] - ic acid 16:46: mouth 2 Medical (CRANBERRY 41 (two) Center CONCENTRATE times ) 140-100 daily. mg Cap Lactobac 2018-07 Yes 1{tbl} QD Take 1 [facility] 42-Bifid 0-08 tablet by [facility]ukes - 8-colost-FO 16:46: mouth Medic al S 41 daily. [place] (PROBIOTIC PLUS COLOSTRUM) 30-500-50 mg PwPk multivit-mi 2018-07 Yes 1{tbl} QD Take [address] n-ferrous 0-08 tablet by [facility] - fumarate 16:46: mouth Medical (MULTI 41 daily. [place] VITAMIN) 9 mg iron/15 mL Liqd irbesartan Yes 150mg QD Take [address] (AVAPRO) 7-28 mg by [facility]ukes - 150 MG 00:00: mouth Medical tablet 00 daily. [place] amLODIPine Yes 10mg QD Take [address] (NORVASC) 7-28 by mouth [facility] - 10 MG 00:00: daily. Medical tablet 00 [place] Estradiol Estradiol Yes Na Britt as [facility] 7-22 directed [facility] - 00:00: Memoria 00 [facility] ent [facility] HydrALAZINE HydrALAZINE Yes Na Britt [address] HCl HCl 5-14 with food [facility] - 00:00: Memoria 00 [facility] amlodipine amlodipine No 1 Q1D amlodipine [facility] 5 mg tablet 5 mg tablet 5 mg F amily Take 1 Take 1 tablet Practic tablet tablet Take 1 e every day every day tablet by oral by oral every day route. route. by oral route. carvedilol carvedilol No 1 BID carvedilol [facility] 25 mg 25 mg 25 mg Family tablet Take tablet Take tablet Practic 1 tablet 1 tablet Take 1 e twice a day twice a day tablet by oral by oral twice a route. route. day by oral route. clopidogrel clopidogrel No 1 Q1D clopidogre [facility] 75 mg 75 mg l 75 mg Family tablet Take tablet Take tablet Practic 1 tablet 1 tablet Take 1 e every day every day tablet by oral by oral every day route. route. by oral route. Crestor 40 Crestor 40 No 1 Q1D Crestor 40 [facility] mg tablet mg tablet mg tablet Family Take 1 Take 1 Take 1 Practic tablet tablet tablet e every day every day every day by oral by oral by oral route. route. route. Eliquis 5 Eliquis 5 No 1 BID Eliquis 5 [facility] mg tablet mg tablet mg tablet Family Take 1 Take 1 Take 1 Practic tablet tablet tablet e twice a day twice a day twice a by oral by oral day by route. route. oral route. hydralazine hydralazine No 1 TID hydralazin [facility] 100 mg 100 mg e 100 mg Family tablet Take tablet Take tablet Practic 1 tablet 3 1 tablet 3 Take 1 e times a day times a day tablet 3 by oral by oral times a route. route. day by oral route. irbesartan irbesartan No 1 Q1D irbesartan [facility] 150 mg 150 mg 150 mg Family tablet Take tablet Take tablet Practic 1 tablet 1 tablet Take 1 e every day every day tablet by oral by oral every day route. route. by oral route. metformin metformin No 1 BID metformin [facility] 500 mg 500 mg 500 mg Family tablet Take tablet Take tablet Practic 1 tablet 1 tablet Take 1 e twice a day twice a day tablet by oral by oral twice a route. route. day by oral route. omeprazole omeprazole No 1capsul Q1D omeprazole [facility] 40 mg 40 mg e(s) 40 mg [...] Cyndi kes - Pain Pain Memoria l [facility] Methenamine Methenamine Yes Na Britt [address] Hippurate Hippurate [facility] Irbesartan Irbesartan Yes Na Britt [address] [facility] Vitamin Vitamin Yes Na Britt not [facility] B-12 B-12 defined [facility] Crestor Crestor Yes Na Britt [address] [facility] ONCE A DAY [facility] Metformin Metformin Yes Na Britt [address] [facility] HCl HCl with meals [facility] Vitamin E Vitamin E Yes Na Britt not [facility] defined [facility] Omeprazole Omeprazole Yes Na Britt TAKE [address] [facility] [facility] CAPSULE BY Lukes - MOUTH Memoria EVERY DAY l [facility] Amlodipine Amlodipine Yes Na Britt [address] [facility] Besylate Besylate [facility] Eliquis Eliquis Yes Na Britt [address] [facility] Out[facility] Clin[facility] Multivitami Multivitami Yes Na Britt not [facility] n n defined [facility] Probiotic Probiotic Yes Na Britt not [facility] defined [facility] Trimethopri Trimethopri Yes Na Britt [address] [facility] m m [facility]ics Magnesium Magnesium Yes Na Britt not [facility] defined [facility] Levetiracet Levetiracet Yes Na Britt [address] [facility] am am [facility] Coreg Coreg Yes Na Britt not [facility] defined [facility] Metformin Metformin Yes Na Britt TAKE [address] [facility] HCl HCl TABLET BY [facility] - MOUTH Memoria TWICE l DAILY [facility] Rosuvastati Rosuvastati Yes Na Britt TAKE [address] [facility] [facility] n Calcium n Calcium TABLET BY [facility] - MOUTH Memoria DAILY l [facility] Sertraline Sertraline Yes Na Britt [address] HCl HCl [facility] Vitamin D3 Vitamin D3 Yes Na Britt [address] [facility] [facility] Cyanocobala Cyanocobala Yes Na Britt [address] [facility] min min [facility] Omeprazole Omeprazole Yes Na Britt [address] [facility] ONCE A DAY [facility] Plavix Plavix Yes Na Britt [address] Carvedilol Carvedilol Yes Na Britt as [facility] directed [facility] Levothyroxi Levothyroxi Yes Na Britt [address] [facility] ne Sodium ne Sodium in the Cristian es - morning on Memoria an empty l stomach [facility] Sodium Sodium Yes Na Britt TAKE [address] [facility] Chloride Chloride TABLET in Cyndi kes - AM and 1 Memoria tab EVERY l 6 HOURS [facility] Cranberry Cranberry Yes Na Britt [address] Concentrate Concentrate with meals [facility] Vital Signs Vital Name Observation Time Observation Value Comments Source Height 2020-02-19 00:00:00 62 [in_i] [facility] Height 2019-10-16 00:00:00 62 [in_i] [facility] BMI (Body Mass 2019-10-16 00:00:00 23.8 kg/m2 [facility] Index) Practice Body Weight 2019-10-16 00:00:00 130 [lb_av] [facility] Procedures This patient has no known procedures. Plan of Care Planned Activity Planned Date Details Comments Source Future Scheduled Test 2020-03-[address] [facility] 00:[facility]:00 (#1) [code = Medical Center INFLUENZA VACCINE (#1)] Future Scheduled Test 2019-10-[address] [facility] - 00:[facility]:00 measurement Medical Center (procedure) [code = 58448872] Future Scheduled Test 2019-07-[address] [facility] - 00:00:00 WELLNESS (YEAR 2 or Medical Center FIRST YEAR if no IPPE) [code = MEDICARE ANNUAL WELLNESS (YEAR 2 or FIRST YEAR if no IPPE)] Future Scheduled Test 2001 PNEUMOCOCCAL 65+ YRS [facility] - 00:00:00 (1 of 1 - Medical Center [id number]) [code = PNEUMOCOCCAL 65+ YRS (1 of 1 - [id number])] Future Scheduled Test 1946 DIABETIC EYE EXAM [facility] - 00:00:00 [code = DIABETIC EYE Medical Center EXAM] Future Scheduled Test 1946 [facility] - [facility] examination Medical Center (regime/therapy) [code = 478255924] Future Scheduled Test 1946 Urine screening for [facility] - 00:[facility]:00 protein (procedure) Medical Center [code = 643906372] Future Appointment 2020-08-24 [facility] 00:00:00 [address]; [address], [place] [address] Encounters Start End Encounter Admission Attending Care Care Encounter Source Date/Time Date/Time Type Type Clinicians Facility Department ID 2020-05-22 2020-05-22 Outpatient [facility] [id number] [facility] 2020-04-23 2020-04-23 Outpatient [facility] [id number] [facility] 2020-04-16 2020-04-16 Outpatient [facility] [id number] [facility] 2020-03-26 2020-03-26 [facility] [id number] 11:20:00 11:20:00 t [employer] [facility] Medicine Outpati ent Clinics 2020-03-07 2020-03-07 [facility] [id number] 14:44:00 14:44:00 [employer] [facility] Medicine Outpati ent Clinics 2020-03-05 2020-03-05 [facility] [id number] 11:00:00 11:00:00 t Specialty/U Cyndi kes - Specialty rology Memori a /Urology Clinic l Clinic Outpati ent Clinics 2020-03-03 2020-03-03 [facility] [id number] 12:39:00 12:39:00 [employer] [facility] Outpati ent Clinics 2020-03-03 2020-03-03 [facility] [id number] 12:15:00 12:15:00 t [employer] [facility] Outpati ent Clinics 2020-02-19 2020-02-19 [facility] [place] - [id number] V illage 00:00:00 00:00:00 [facility] eliana aguilar 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 2020-01-18 2020-01-18 [facility] [id number] 10:39:00 10:39:00 [employer] [facility] Outpati ent Clinics 2020-01-17 2020-01-17 [facility] [id number] 10:40:00 10:40:00 [employer] [facility] Outpati ent Clinics 2020-01-01 2020-01-01 [facility] [id number] 13:55:00 13:55:00 t [place] [employer] - [employer] [facility] Medicine l Medicine Outpati ent Clinics 2019-12-20 2019-12-20 [facility] [id number] 09:43:00 09:43:00 t [employer] [facility] l Medicine Outpati ent Clinics 2019-12-18 2019-12-18 [facility] [id number] 11:20:00 11:20:00 t [employer] - [facility] l Medicine Outpati ent Clinics 2019-12-04 2019-12-04 [facility] [id number] 10:00:00 10:00:00 t Specialty/U Cyndi kes - Specialty rology Memori a /Urology Clinic l Clinic Outpati ent Clinics 2019-12-03 2019-12-03 [facility] [id number] 11:31:00 11:31:00 [employer] - [facility] l Medicine Outpati ent Clinics 2019-11-26 2019-11-26 [facility] [id number] 08:43:00 08:43:00 t [employer] - [employer] [facility] l Medicine Outpati ent Clinics 2019-11-16 2019-11-16 [facility] [id number] 08:35:00 08:35:00 t Specialty/U Cyndi kes - Specialty rology Memori a /Urology Clinic l Clinic Outpati ent Clinics 2019-11-10 2019-11-10 [facility] [id number] 14:05:00 14:05:[address] [facility] [address] [employer]per [employer] [facility] l Medicine Outpati ent Clinics 2019-10-17 2019-10-17 [facility] [id number] 14:55:00 14:55:00 t [employer] [facility] l Medicine Outpati ent Clinics 2019-10-16 2019-10-16 [facility] [place] - [id number] V illage 00:00:00 00:00:00 [facility] eliana aguilar 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 2019-10-12 2019-10-12 [facility] [id number] 15:58:00 15:58:00 [employer] [facility] Medicine Medicine Outpati ent Clinics 2019-10-01 2019-10-01 [facility] [id number] 15:42:00 15:42:00 [employer] [facility] Medicine l Medicine Outpati ent Clinics 2019-09-25 2019-09-25 [facility] [id number] 11:20:00 11:20:00 t [employer] [facility] Family Medicine l Medicine Outpati ent Clinics 2019-09-18 2019-09-18 [facility] [id number] 11:15:00 11:15:00 t Specialty/U Cyndi kes - Specialty rology Memori a /Urology Clinic l Clinic Outpati ent Clinics 2019-09-14 2019-09-14 [facility] [id number] 11:32:00 11:32:00 t [employer] [facility] Medicine l Medicine Outpati ent Clinics 2019-09-04 2019-09-04 [facility] [id number] 11:20:00 11:20:00 [employer] [facility] Family Medicine l Medicine Outpati ent Clinics 2019-09-04 2019-09-04 [facility] [id number] 10:00:00 10:00:00 t Specialty/U Cyndi kes - Specialty rology Memori a /Urology Clinic l Clinic Outpati ent Clinics 2019-08-08 2019-08-08 [facility] [id number] 10:40:00 10:40:00 [employer] [facility] Family Medicine l Medicine Outpati ent Clinics 2019-08-02 2019-08-02 [facility] [id number] 13:00:00 13:00:00 t Specialty/U Cyndi kes - Specialty rology Memori a /Urology Clinic l Clinic Outpati ent Clinics 2019-07-09 2019-07-09 [facility] [id number] 14:00:00 14:00:00 [employer] [facility] Medicine Outpati ent Clinics 2019-05-29 2019-05-29 [facility] [id number] 11:20:00 11:20:00 [employer] [facility] Medicine Outpati ent Clinics 2019-05-15 2019-05-15 [facility] [id number] 10:15:00 10:15:00 t Specialty/U Cyndi kes - Specialty rology Memori a /Urology Clinic l Clinic Outpati ent Clinics 2019-04-24 2019-04-24 [facility] [id number] 10:40:00 10:40:00 [employer] [facility] Medicine Outpati ent Clinics 2019-04-09 2019-04-09 [facility] [id number] 13:20:00 13:20:00 [employer] [facility] Medicine Outpati ent Clinics 2019-03-24 2019-03-24 [facility] [id number] 12:00:00 12:00:00 t Urgent [facility] L ukes - Care Clinic [facility] Clinic l Outpati ent Clinics 2019-03-15 2019-03-15 [facility] [id number] 13:22:00 13:22:00 t Urgent Ur[facility] L ukes - Care Clinic [facility]oria Clinic l Outpati ent Clinics 2019-03-13 2019-03-13 [facility] [id number] 10:39:00 10:39:00 [employer] [facility] Medicine Outpati ent Clinics 2019-03-12 2019-03-12 [facility] [id number] 10:30:00 10:30:00 t [facility]gent [facility] 2019-02-28 2019-02-28 [facility] [id number] 13:00:00 13:00:00 [place] Luke s - Drive [facility] Medicine l Medicine Outpati ent Clinics 2019-02-12 2019-02-12 [facility] [id number] 10:15:00 10:15:00 t Specialty/U Cyndi kes - Specialty rology Memori a /Urology Clinic l Clinic Outpati ent Clinics 2019-02-08 2019-02-08 [facility] [id number] 15:00:00 15:00:00 [place] [employer] Luke s - Drive [facility] Medicine l Medicine Outpati ent Clinics 2019-02-08 2019-02-08 [facility] [id number] 08:42:00 08:42:00 t [place] [employer] s - Drive [facility] l Medicine Outpati ent Clinics 2019-02-06 2019-02-06 [facility] [id number] 09:40:00 09:40:00 [place] Luke s - Drive [facility] Medicine l Medicine Outpati ent Clinics 2019-01-09 2019-01-09 [facility] [id number] 10:40:00 10:40:00 t [place] [employer] LuPiper s - Drive [facility] Medicine l Medicine Outpati ent Clinics 2019-01-03 2019-01-03 [facility] [id number] 13:07:00 13:07:00 t [place] [employer] Luke s - Drive [facility] Medicine l Medicine Outpati ent Clinics 2018-12-28 2018-12-28 [facility] [id number] 14:00:00 14:00:00 t [place] [employer] Luke s - Drive [facility] Medicine l Medicine Outpati ent Clinics 2018-09-14 2018-09-14 [facility] [id number] 09:26:00 09:26:00 t [place] [employer] LuPiper s - Drive [facility] l Medicine Outpati ent Clinics 2018-09-08 2018-09-08 [facility] [id number] 09:30:00 09:30:00 [place] [employer] [facility] 2018-08-07 2018-08-07 Outpatient Jeff Aguilart [id number] 08:45:00 08:45:00 t [facility] s [facility] 2018-02-20 2018-02-20 Outpatient Jeff Aguilart [id number] 14:30:00 14:30:00 [facility] 2018-02-03 2018-02-03 [facility] [id number] 09:00:00 09:00:00 [facility] Results Test Description Test Time Test Comments Results Result Sour e Comments CT, CTANGIO BRAIN 2019-05-01 Reason for FINAL REPORT PATIENT 10:58:00 exam:->stroke ID: [id number] CLINICAL HISTORY: TIA TECHNIQUE: Initially, noncontrast head [...] intact. There is no evidence for a [place] proximal branch vessel occlusion. Mild [...] artery stenosis, unchanged. No evidence for a [place] proximal branch vessel occlusion. Signed: Alexa Bolden MDReport Verified Date/Time: 05/01/2019 10:58:29 Reading Location: [facility] C013V Neuro Reading Room , CAROTID, ANGIO 2019-05-01 Reason for FINAL REPORT PATIENT 10:58:00 exam:->eval ID: [id number] for TIA CLINICAL HISTORY: TIA TECHNIQUE: Initially, [...] intact. There is no evidence for a [place] of [place] proximal branch vessel occlusion. Mild [...] artery stenosis, unchanged. No evidence for a [place] of [place] proximal branch vessel occlusion. Signed: Alexa Bolden MDReport Verified Date/Time: 05/01/2019 10:58:29 Reading Location: [facility] C013V Neuro Reading Room C METABOLIC PANEL 2019-05-01 06:04:00 Test Item Value Reference Range Interpretation Comme nts SODIUM (BEAKER) (test code 133 meq/L 136-145 L = 381) POTASSIUM (BEAKER) (test 4.3 meq/L 3.5-5.1 code = 379) CHLORIDE (BEAKER) (test 104 meq/L 98-107 code = 382) CO2 (BEAKER) (test code = 24 meq/L 22-29 355) BLOOD UREA NITROGEN 8 mg/dL 7-21 (BEAKER) (test code = 354) CREATININE (BEAKER) (test 0.63 mg/dL 0.57-1.25 code = 358) GLUCOSE RANDOM (BEAKER) 105 mg/dL 70-105 (test code = 652) CALCIUM (BEAKER) (test code 8.8 mg/dL 8.4-10.2 = 697) EGFR (BEAKER) (test code = 90 mL/min/1.73 sq m ESTIMATED GFR IS NOT 1092) ACCURATE CRE ATININE CLEARANCE IN [place] EDICTING GLOMERULAR FILT RATION RATE. ESTIMATED GFR [...] 0-0 (BEAKER) (test code = 413) TROPONIN [id number] 20:18:00 Test Item Value Reference Range Interpretation [...] neurological disease, and persistent tachyarrhythmia.MR, BRAIN, WITHOUT [id number] 19:07:00Reason for exam:->Ischemic Stroke EvaluationFINAL REPORT MR, [...] IMPRESSION: No acute infarct Signed: Brenden Hernandez MDReport Verified Date/Time: 04/30/2019 19:07:03 Reading Location: [address] Neuro Reading Room HEMOGLOBIN [id number] 10:33:00 Test Item Value Reference Range Interpretation Comments HEMOGLOBIN A1C (BEAKER) (test code = 6.6 % 4.3-6.1 H 368) FastingVITAMIN [id number] 09:00:00 Test Item Value Reference Range Interpretation [...] NOT APPLICABLE FOR DIALYSIS PATIEN TS. FastingLIPID [id number] 07:30:00 Test Item Value Reference Range Interpretation [...] 130-159 High 160-189 Very High >=190 FastingTROPONIN [id number] 07:28:00 Test Item Value Reference Range Interpretation [...] and persistent tachyarrhythmia.FastingCBC W/PLT COUNT & AUTO [id number] 05:43:00 Test Item Value Reference Range Interpretation [...] (BEAKER) (test code = 2801) NV, ANGIOGRAM, [id number] 11:37:00Reason for exam:->TIAsFINAL REPORT November 22, 2017 [...] guidance and strict sterile technique a 4 Afghan femoral sheath was inserted into the right common femoral artery. Through the sheath a 4 Afghan vertebral catheter was then advanced over the [...] demonstrates a critical supraclinoid ICA stenosis of zhnfyzlhbvdzv71%. There is delayed antegrade flow. The venous [...] Verified Date/Time: 11/22/2017 11:37:47 [facility] POCT- GLUCOSE [id number] 07:43:00 Test Item Value Reference Range Interpretation Comments POC-GLUCOSE METER 149 mg/dL 70-110 H TESTED AT [facility] 6720 (BEAKER) (test code = ISA Norman [facility] 1538) [id number] 06:46:00 Test Item Value Reference Range Interpretation Comments MAGNESIUM (BEAKER) (test code = 2.0 mg/dL 1.6-2.6 627) BASIC METABOLIC [id number] 06:46:00 Test Item Value Reference Range Interpretation [...] S NOT APPLICABLE FOR DIALYSIS PATIEN TS. [id number] 06:33:00 Test Item Value Reference Range Interpretation Comments PROTIME ([facility]) (test code = 15.5 seconds 11.7-14.7 H 759) INR ([facility]) (test code = 370) 1.2 <=5.9 PARTIAL THROMBOPLASTIN TIME 35.9 seconds 22.5-36.0 ([facility]) (test code = 760) RECOMMENDED COUMADIN/WARFARIN INR THERAPY RANGESSTANDARD DOSE: 2.0 - 3.0 Includes: PROPHYLAXIS forvenous thrombosis, systemic embolization; TREATMENT for venous thrombosis and/or pulmonary embolus.HIGH RISK: Target INR is 2.5-3.5 for patients with mechanical heart valves.POCT-GLUCOSE [id number] 06:22:00 Test Item Value Reference Range Interpretation Comments POC-GLUCOSE METER 161 mg/dL 70-110 H TESTED AT [place] [address] ([facility]) (test code = ISA Norman [facility] 1538) [address] POCT-GLUCOSE [id number] 02:08:00 Test Item Value Reference Range Interpretation Comments POC-GLUCOSE METER 182 mg/dL 70-110 H TESTED AT [place] [address] ([facility]) (test code = ISA Norman [facility] 1538) [address] POCT-GLUCOSE [id number] 19:30:00 Test Item Value Reference Range Interpretation Comments POC-GLUCOSE METER 146 mg/dL 70-110 H TESTED AT [place] [address] ([facility]) (test code = ISA Norman [facility] 1538) [address] CT, CAROTID, [id number] 14:54:00Please include aortaFINAL REPORT CT angiogram of [...] the left ICA terminus. There is also dkzk-up-henhzxmm multifocal narrowing of the right carotid siphon. [...] MDReport Verified Date/Time: 11/21/2017 14:54:26 Reading Location: [facility] Radiology Reading Room H MEJIA [id number] 14:54:00FINAL REPORT CT angiogram of the upper [...] the left ICA terminus. There is also wddk-ar-ihceehva multifocal narrowing of the right carotid siphon. [...] Mcdaniels Verified Date/Time: 11/21/2017 14:54:26 Reading Location: [facility] Radiology Reading Room POCT-GLUCOSE [id number] 11:50:00 Test Item Value Reference Range Interpretation Comments POC-GLUCOSE METER 153 mg/dL 70-110 H TESTED AT [place] [address] ([facility]) (test code = [facility] 1538) [address] POCT-GLUCOSE [id number] 08:08:00 Test Item Value Reference Range Interpretation Comments POC-GLUCOSE METER 125 mg/dL 70-110 H TESTED AT [place] [address] ([facility]) (test code = [facility] 1538) [address] [id number] 06:43:00 Test Item Value Reference Range Interpretation Comments MAGNESIUM (BEAKER) (test code = 2.1 mg/dL 1.6-2.6 627) BASIC METABOLIC [id number] 06:43:00 Test Item Value Reference Range Interpretation [...] FOR DIALYSIS PATIEN TS. TSH/FREE T4 IF [id number] 22:12:00 Test Item Value Reference Range Interpretation Comments THYROID STIMULATING HORMONE 4.66 uIU/mL 0.35-4.94 (BEAKER) (test code = 772) [id number] 21:54:00 Test Item Value Reference Range Interpretation Comments MAGNESIUM (BEAKER) (test code = 2.0 mg/dL 1.6-2.6 627) BASIC METABOLIC [id number] 21:54:00 Test Item Value Reference Range Interpretation [...] NOT APPLICABLE FOR DIALYSIS PATIEN TS. LIPID [id number] 21:54:00 Test Item Value Reference Range Interpretation Comments TRIGLYCERIDES ([facility]) (test code = 70 mg/dL 540) CHOLESTEROL ([facility]) (test code = 101 mg/dL 631) HDL CHOLESTEROL ([facility]) (test code 39 mg/dL = 976) LDL CHOLESTEROL CALCULATED ([facility]) 48 mg/dL (test code = 633) Triglyceride Reference Range: Low Risk <150 Borderline 150-199 High Risk 200-499 Very High Risk >=500Cholesterol Reference Range: Low Risk <200 Borderline 200-239 High Risk >240HDL Cholesterol Reference Range: Low Risk >=60 High Risk <40LDL Cholesterol Reference Range: Optimal <100 Near Optimal 100-129 Borderline 130-159 High 160-189 Very High >=190POCT-GLUCOSE [id number] 21:35:00 Test Item Value Reference Range Interpretation Comments POC-GLUCOSE METER 128 mg/dL 70-110 H TESTED AT [place] [address] ([facility]) (test code = [facility] Ester [facility] 1538) [address] POCT-GLUCOSE [id number] 17:55:00 Test Item Value Reference Range Interpretation Comments POC-GLUCOSE METER 113 mg/dL 70-110 H TESTED AT [place] [address] ([facility]) ([facility] = [facility] [place] [facility] 1538) [address] POCT-GLUCOSE [id number] 12:32:00 Test Item Value Reference Range Interpretation Comments POC-GLUCOSE METER 120 mg/dL 70-110 H TESTED AT [place] [address] ([facility]) (test code = [facility] [place] [facility] 1538) [address] MR, MRA, BRAIN, WITHOUT [id number] 11:33:00Reason for exam:->Ischemic Stroke EvaluationFINAL REPORT MRA Head and Neck CLINICAL HISTORY: CVA TECHNIQUE: MRA of the head utilizing 3-D imhu-qu-eyxhim technique, with 3-D reconstructions. MRA of the neck utilizing 2-D and 3-D cqkw-jy-odinjs technique, with 3-D reconstructions. COMPARISON: None FINDINGS: [...] There is no other evidence for a [place] of [place] proximal branch vessel occlusion. There [...] MDReport Verified Date/Time: 11/20/2017 11:33:14 Reading Location: [facility] C[facility] Neuro Reading Room MR, MRA, NECK, WITHOUT IV [id number] 11:33:00Reason for exam:->Ischemic Stroke EvaluationFINAL REPORT MRA Head and Neck CLINICAL HISTORY: CVA TECHNIQUE: MRA of the head utilizing 3-D oicz-sh-aosyoi technique, with 3-D reconstructions. MRA of the neck utilizing 2- D and 3-D mozy-yj-xrcvil technique, with 3-D reconstructions. COMPARISON: None FINDINGS: [...] There is no other evidence for a [place] of [place] proximal branch vessel occlusion. There [...] internal carotid artery siphon. Signed: Alexa Bolden MDRsilviaort Verified Date/Time: 11/20/2017 11:33:14 Reading Location: [address] Neuro Reading Room MR, BRAIN, WITHOUT [id number] 11:05:00Reason for exam:->Ischemic Stroke EvaluationFINAL REPORT MRI [...] correl ation is requested. Signed: Alexa Bolden MDRjoy Verified Date/Time: 11/20/2017 11:05:05 Reading Location: [address] Neuro Reading Room HEMOGLOBIN [id number] 09:08:00 Test Item Value Reference Range Interpretation Comments HEMOGLOBIN A1C (BEAKER) (test code = 6.1 % 4.3-6.1 368) POCT-GLUCOSE QCSFJ Test Item Value Reference Range Interpretation Comments POC-GLUCOSE METER 125 mg/dL 70-110 H TESTED AT [facility] 6720 (BEAKER) (test code = [place] 1538) [address] TSH/FREE T4 IF [id number] 07:47:00 Test Item Value Reference Range Interpretation Comments THYROID STIMULATING HORMONE 5.97 uIU/mL 0.35-4.94 H (BEAKER) (test code = 772) VITAMIN [id number] 07:44:00 Test Item Value Reference Range Interpretation Comments VITAMIN B12 (BEAKER) (test code = 857 pg/mL 213-816 H 774) CBC W/PLT COUNT & AUTO [id number] 06:47:00 Test Item Value Reference Range Interpretation [...] PERCENT (BEAKER) (test code = 2801) POCT-GLUCOSE [id number] 22:09:00 Test Item Value Reference Range Interpretation Comments POC-GLUCOSE METER 130 mg/dL 70-110 H TESTED AT [facility] 6720 ([facility]) (test code = ISA [place] 1538) [address]
--- OUTSIDE RECORDS SUMMARY | 2020-05-30 14:16 | XMS REPORT ---
:1935 Author Organization [facility] Address [address] [place], [address] [place] [address] Care Team Providers Name Role Phone Britt Unavailable [phone] PROBLEMS Type Condition ICD9-CM [id number] Onset Condition SNOMED Code Notes Code Code Dates Status Problem 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 Active 243297711 Problem Overactive bladder N32.81 Active 376748528 Problem Chronic a-fib I48.2 Active 77913659 Problem GERD K21.9 Active 649308074 (gastroesophageal reflux disease) Problem Obstructive sleep G47.33 Active 25697809 apnea Problem Hypertension I10 Active 28985816 Problem Obesity E66.9 Active 291789313 Problem Stress at home F43.9 Active 408334100 Problem Mild depression F32.0 Active 500704386 Problem Recurrent urinary N39.0 Active 341926189 tract infection Problem History of TIA Z86.73 Active 257287014 (transient ischemic attack) Problem Type 2 diabetes E11.9 Active 153077625 Problem Atherosclerosis I70.90 Active 05764155 Problem Hospital discharge Z09 Active 302766275 follow-up Problem 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 293263028487606 carotid artery Problem Other speech R47.89 Active 24761046 disturbance Problem Elevated TSH R79.89 Active 354548175 Problem Chronic fatigue R53.82 Active 39777273 Problem Memory change R41.3 Active 84521247 Problem Other chronic pain G89.29 Active 24592502 Problem Mixed stress and N39.46 Active 814678982 urge urinary incontinence Problem Gastroesophageal K21.9 Active 284867208 reflux disease, esophagitis presence not specified Problem Hyperlipidemia E78.5 Active 03830740 Problem Hyponatremia E87.1 Active 97034222 Problem Allergic rhinitis J30.9 Active 04908700 Problem Abnormal mammogram R92.8 Active 840221924 Problem Acquired E03.9 Active 987638314 hypothyroidism Problem Seizure disorder G40.909 Active 613048053 Problem Seasonal allergic J30.2 Active 805663980 rhinitis, unspecified trigger Problem 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 Active 077589035 multiple joints, unspecified osteoarthritis type ALLERGIES Allergen (clinical drug Drug/Non Drug Reaction Allergy Type Onset D ate Status ingredient) Allergy documented on EMR sertraline Zoloft([facility] Unknown Drug Allergy Active Code:[address]-79) Iodine contrast dye Unknown Non Drug Allergy Active niacin Niacin([facility] Unknown Drug Allergy Active Code:[address]-13) aspirin Aspirin([facility] Unknown Drug Allergy Active Code:[address]-05) clonidine CloNIDine([facility] Unknown Drug Allergy Active Code:[address]-14) nitrofurantoin Macrodantin([facility] Unknown Drug Allergy Act marty Code:[address]-64) codeine codeine Unknown Drug Allergy Active Nitrous oxide Unknown Non Drug Allergy Activ e lisinopril Lisinopril([facility] Unknown Drug Allergy Active Code:[address]-87) Vicodin Unknown Drug Allergy Active ENCOUNTERS from 1935 to 2020-04-24 Encounter Location Date Provider Diagnosis [facility] [address] [facility] [place], Na Britt Tra umatic ecchymosis [facility] [address] [place], [facility], [address] ; [place] [address] Hyponatremia E 87.1 ; Seizure disorde r [...] 0:00 AM, [address], [address], [place], [address], Provider Name:Elli Britt, 2020-07-22 01:0 0:00 PM, [address], [address], [place], [address], Provider Name:Adamaris Cifuentes, 10:15:00 AM, [address], [address], [place], [address], Insurance Providers Payer Name Payer Payer Insured Patient Coverage Coverage End Address Phone Name Relationship to Start Date Dwain e Insured [employer] [address] [address] [phone] Rodri Lara self [address] [facility] [address] [address]
--- OUTSIDE RECORDS SUMMARY | 2020-05-30 14:16 | XMS REPORT ---
:1935 Author Organization [facility] Address [address] [place], [address] [place] [address] Care Team Providers Name Role Phone Britt Unavailable [phone] PROBLEMS Type Condition ICD9-CM ISN81-UP Onset Condition SNOMED Code Notes Code Code Dates Status Problem 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 Active 741074839 Problem Overactive bladder N32.81 Active 846182113 Problem Chronic a-fib I48.2 Active 74840176 Problem GERD K21.9 Active 882004938 (gastroesophageal reflux disease) Problem Obstructive sleep G47.33 Active 44169461 apnea Problem Hypertension I10 Active 27599542 Problem Obesity E66.9 Active 600242266 Problem Stress at home F43.9 Active 983001611 Problem Mild depression F32.0 Active 383408547 Problem Recurrent urinary N39.0 Active 105023974 tract infection Problem History of TIA Z86.73 Active 774881652 (transient ischemic attack) Problem Type 2 diabetes E11.9 Active 593836399 Problem Atherosclerosis I70.90 Active 24195712 Problem Hospital discharge Z09 Active 247594315 follow-up Problem 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 804468669416308 carotid artery Problem Other speech R47.89 Active 59449746 disturbance Problem Elevated TSH R79.89 Active 611660980 Problem Chronic fatigue R53.82 Active 38478922 Problem Memory change R41.3 Active 93429506 Problem Other chronic pain G89.29 Active 51532691 Problem Mixed stress and N39.46 Active 955796408 urge urinary incontinence Problem Gastroesophageal K21.9 Active 752266218 reflux disease, esophagitis presence not specified Problem Hyperlipidemia E78.5 Active 97996968 Problem Hyponatremia E87.1 Active 66662211 Problem Allergic rhinitis J30.9 Active 33619052 Problem Abnormal mammogram R92.8 Active 607509276 Problem Acquired E03.9 Active 739707465 hypothyroidism Problem Seizure disorder G40.909 Active 742276018 Problem Seasonal allergic J30.2 Active 801722921 rhinitis, unspecified trigger Problem 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 Active 533415627 multiple joints, unspecified osteoarthritis type ALLERGIES Allergen (clinical drug Drug/Non Drug Reaction Allergy Type Onset D ate Status ingredient) Allergy documented on EMR Vicodin Unknown Drug Allergy Active aspirin Aspirin([facility] Unknown Drug Allergy Active Code:[address]-81) lisinopril Lisinopril([facility] Unknown Drug Allergy Active Code:[address]-62) Iodine contrast dye Unknown Non Drug Allergy Active clonidine CloNIDine([facility] Unknown Drug Allergy Active Code:[address]-07) Nitrous oxide Unknown Non Drug Allergy Activ e sertraline Zoloft([facility] Unknown Drug Allergy Active Code:[address]-08) nitrofurantoin Macrodantin([facility] Unknown Drug Allergy Act marty Code:[address]-47) codeine codeine Unknown Drug Allergy Active niacin Niacin([facility] Unknown Drug Allergy Active Code:[address]-16) ENCOUNTERS from 1935 to 2020-05-22 Encounter Location Date Provider Diagnosis [address] 29 Apr, 2020 Na Britt Hyponatremia E87.1 [place] [address] IMMUNIZATIONS Vaccine Route Administration Date Status Vitamin [...] Start Date End Date Status Frequency, Duration) Plavix 75 MG 1 tablet Orally Once a Not-T aking day Omeprazole 40 MG 1 EACH ONCE A DAY Not-Ta sofiya orally daily in AM for 90 days Cranberry Concentrate 425 1 capsule with meals Active MG Orally Vitamin D3 1000 UNIT 1 capsule Orally Once Not-Taking a day Irbesartan 150 MG 1 tablet Orally Once a Active day for 30 day(s) Sodium Chloride 1000 MG 1 tablet Orally 5 Feb, Aug, Active times daily for 90 days Sodium Chloride 1 GM 1 tablet Orally every Oct, 1 Active 6 hours for 90 days Rosuvastatin Calcium 40 MG TAKE 1 TABLET BY MOUTH Active DAILY for 90 Sodium Chloride 1 GM TAKE 2 TABLET in AM Active and 1 tab EVERY 6 HOURS Orally for 90 days Rosuvastatin Calcium 40 TAKE 1 TABLET BY MOUTH Active DAILY for 90 Trimethoprim 100 MG 1 tablet Orally Once a Active day for 90 Probiotic - Orally Active Metformin HCl 500 TAKE 1 TABLET BY MOUTH Active TWICE DAILY for 90 Metformin HCl 500 MG TAKE 1 TABLET BY MOUTH Active TWICE DAILY for 90 HydrALAZINE HCl 100 MG 1 tablet with food Active Orally Three times a day Multivitamin Active Eliquis 5 MG 1 tablet Orally twice Active a day Montelukast Sodium 10 MG 1 tablet Orally Once a 20 Sep, 2019 Not-Taking day for 90 days Tylenol Arthritis Pain Not-T aking Estradiol 0.1 MG/GM as directed Vaginal Jan, N ot-Taking Two times a Week for 90 days Coreg 25 MG Orally Active Cyanocobalamin 1000 15 ml Orally Once a N ot-Taking MCG/15ML day Levetiracetam 250 MG 1 tablet Orally every Not-Taking 12 hrs Magnesium 500 MG Orally Active HydrALAZINE HCl 100 MG as directed Orally November, Not-Taking Three times a day Vitamin E 400 UNIT Orally Active Levothyroxine Sodium 125 1 tablet in the Active MCG morning on an empty stomach Orally Once a day Amlodipine Besylate 10 MG 1 tablet Orally Once a Active day for 30 day(s) Carvedilol 25 MG as directed Orally Activ e Crestor 40 MG 1 EACH ONCE A DAY Active Vitamin B-12 Not-Taking Sertraline HCl 25 MG 1 tablet Orally Once a Not-Taking day for 30 day(s) Omeprazole 40 TAKE 1 CAPSULE BY Not-Takin g MOUTH EVERY DAY for 90 Methenamine Hippurate 1 GM 1 tablet Orally Twice Not-Taking a day for 30 day(s) PROCEDURES No Information RESULTS No Results REASON FOR VISIT med refill MEDICAL (GENERAL) HISTORY Type Description Date Medical [...] No Information ASSESSMENTS Encounter Date Diagnosis Notes Apr, Hyponatremia (ICD-10 - E87.1) PLAN OF TREATMENT Medication Medication Name Sig Start Date Stop Date Sodium Chloride 1 GM 1 tablet Orally every 6 hours for Oct, 90 days Amlodipine Besylate 10 MG 1 tablet Orally Once a day for 30 day(s) Coreg 25 MG Orally Metformin HCl 500 MG TAKE 1 TABLET BY MOUTH TWICE DAILY for 90 HydrALAZINE HCl 100 MG 1 tablet with food Orally Three times a day Irbesartan 150 MG 1 tablet Orally Once a day for 30 day(s) Next Appt Details Provider Name:Elli Britt 2020-07-15 08:3 0:00 AM, [address], [address], [place], [address], Provider Name:Elli Britt 2020-07-22 01:0 0:00 PM, [address], [address], [place], [address], Provider Name:Adamaris Cifuentes, 10:15:00 AM, [address] [facility], [facility] [address], [place], [address], Insurance Providers Payer Name Payer Payer Insured Patient Coverage Coverage End Address Phone Name Relationship to Start Date Dwain e Insured [facility] [address] [address] [phone] Rodri Lara self [address] [facility] [address] [address]
--- NOTE | 2020-05-30 15:32 | RAD REPORT ---
EXAM DESCRIPTION: Diane Single View05/30/2020 3:07 pm CLINICAL HISTORY: Hypertension/dizziness COMPARISON: April 2020 FINDINGS: The lungs appear clear of acute infiltrate. The heart is mildly to moderately enlarged. P ostsurgical changes involve the chest IMPRESSION: No acute abnormalities displayed
[2020-05-30 15:36] LABS: Absolute Lymphocytes (CBC) 2.3 K/uL (0.7-4.9); Basophils % 0.7 % (0-1.3); Hematocrit 37.6 % (36.0-45.0); Lymphocytes % 32.4 % (15.3-44.8); MPV 8.3 fL (7.6-11.3); RBC Red Blood Cell Count 3.84 M/uL (3.86-4.86)
[2020-05-30] MEDS ORDERED: ONDANSETRON 4 MG/2 ML VIAL ONE (15:41)
[2020-05-30] MEDS ORDERED: NA CHLORIDE 0.9% 500 ML ONE (15:41)
[2020-05-30 15:43] LABS: Protime INR 1.31
[2020-05-30 15:58] LABS: ALT/SGPT 27 U/L (12-78); AST/SGOT 17 U/L (15-37); Albumin 3.7 g/dL (3.4-5.0); Alkaline Phosphatase 107 U/L (45-117); BUN Blood Urea Nitrogen 11 mg/dL (7-18); Bicarbonate 29 mmol/L (21-32); Bilirubin Direct 0.1 mg/dL (0-0.2); Bilirubin Total 0.5 mg/dL (0.2-1.0); Glucose Level 121 mg/dL (74-106); Magnesium 2.2 mg/dL (1.8-2.4); NT PRO-BNP 1168 pg/mL (<450); Potassium 4.1 mmol/L (3.5-5.1); Protein, Total 7.4 g/dL (6.4-8.2); Sodium Level 138 mmol/L (136-145); Troponin (Emerg Dept Use Only) < 0.02 ng/mL (0.0-0.045)
--- NOTE | 2020-05-30 17:48 | EDPHYS ---
Physician Documentation [facility] Name: Radha Lara Age: 84 yrs Sex: Female : 1935 Arrival Date: 05/30/2020 Time: 14:14 Bed 6 Private MD: ED Physician Eleazar Tenorio HPI: 05/30 16:42 This 84 yrs old Female presents to ER via Ambulatory with complaints of kdr Nausea, Dizziness, Body Pain. 16:42 The patient states that she feels weak and aches all of her. She reportedly took two of kdr her B-nghia, Eliquis and metformin this morning. Onset: The symptoms/episode began/occurred suddenly, this morning. Severity of symptoms: At their worst the symptoms were very mild in the emergency department the symptoms are unchanged. The patient has not experienced similar symptoms in the past. The patient has not recently seen a physician. After taking the her additional medications this morning, she went to bed and slept for about three hours. When she awoke, she still felt weak and generalized pain all over.. Historical: - Allergies: 14:48 Aspirin; ss 14:48 Clonidine; ss 14:48 Codeine; ss 14:48 Demerol; ss 14:48 Ibuprofen; ss 14:48 Iodinated Contrast Media - IV Dye; ss 14:48 Lisinopril; ss 14:48 Niacin; ss 14:48 Nitrofurantoin; ss 14:48 nitrous oxide; ss 14:48 vicoden; ss 14:48 Zoloft; ss - Home Meds: 14:48 Vitamin B-12 2,000 mcg Oral TbER daily [Active]; Crestor 40 mg Oral tab once daily ss [Active]; furosemide 40 mg Oral tab as needed [Active]; Eliquis 5 mg Oral tab 2 times per day [Active]; hydralazine 100 mg Oral tab 3 times per day [Active]; levothyroxine 75 mcg tab 1 tab once daily [Active]; metformin 500 mg Oral Tb24 1 tab 2 times per day [Active]; magnesium oxide 500 mg Oral tab daily [Active]; Multiple Vitamins Oral tab daily [Active]; irbesartan 150 mg Oral tab 1 tab once daily [Active]; amlodipine 10 mg tab once daily for Hypertension [Active]; omeprazole 40 mg Oral cpDR 1 cap once daily [Active]; cranberry Oral twice a day [Active]; pantoprazole 40 mg Oral TbEC 1 tab once daily [Active]; carvedilol 12.5 mg Oral tab 2 times per day [Active]; Plavix 75 mg Oral tab 1 tab once daily [Active]; Probiotic Oral daily [Active]; sodium chloride 1 gram Oral tab 5 times per day [Active]; Vimpat 50 mg Oral tab daily [Active]; Vitamin D3 1,000 unit Oral chew daily [Active]; vitamin E Oral once daily [Active]; - PMHx: 14:48 acid reflux; ADD/ADHD; TIA; Atrial Fib; Hypertension; Kidney stones; UTI; CVA; Sleep ss Apnea; PE; Diabetes - NIDDM; Hyperlipidemia; - PSHx: 14:48 Tonsillectomy; Hysterectomy; Cholecystectomy; CABG; ss - Immunization history:: Adult Immunizations up to date. - Social history:: Smoking status: Patient denies any tobacco usage or history of. ROS: 16:42 Constitutional: Negative for fever, chills, and weight loss - she has had global kdr myalgia and arthragias Eyes: Negative for injury, pain, redness, and discharge, ENT: Negative for injury, pain, and discharge, Neck: Negative for injury, pain, and swelling, Cardiovascular: Negative for chest pain, palpitations, and edema, Respiratory: Negative for shortness of breath, cough, wheezing, and pleuritic chest pain, Abdomen/GI: Negative for abdominal pain, nausea, vomiting, diarrhea, and constipation, Back: Negative for injury and pain, : Negative for injury, bleeding, discharge, and swelling, MS/Extremity: Negative for injury and deformity, Skin: Negative for injury, rash, and discoloration, Neuro: Negative for headache, weakness, numbness, tingling, and seizure activity. Psych: Negative for depression, anxiety, suicide ideation, homicidal ideation, and hallucinations, Allergy/Immunology: Negative for hives, rash, and allergies, Endocrine: Negative for neck swelling, polydipsia, polyuria, polyphagia, and marked weight changes, Hematologic/Lymphatic: Negative for swollen nodes, abnormal bleeding, and unusual bruising. Exam: 16:42 Constitutional: This is a well developed, well nourished patient who is awake, alert, kdr and in no acute distress. Head/Face: Normocephalic, atraumatic. Eyes: Pupils equal round and reactive to light, extra-ocular motions intact. Lids and lashes normal. Conjunctiva and sclera are non-icteric and not injected. Cornea within normal limits. Periorbital areas with no swelling, redness, or edema. Neck: Trachea midline, no thyromegaly or masses palpated, and no cervical lymphadenopathy. Supple, full range of motion without nuchal rigidity, or vertebral point tenderness. No Meningismus. Chest/axilla: Normal chest wall appearance and motion. Nontender with no deformity. No lesions are appreciated. Cardiovascular: Regular rate and rhythm with a normal S1 and S2. No gallops, murmurs, or rubs. Normal PMI, no JVD. No pulse deficits. Respiratory: Lungs have equal breath sounds bilaterally, clear to auscultation and percussion. No rales, rhonchi or wheezes noted. No increased work of breathing, no retractions or nasal flaring. Abdomen/GI: Soft, non-tender, with normal bowel sounds. No distension or tympany. No guarding or rebound. No evidence of tenderness throughout. Back: No spinal tenderness. No costovertebral tenderness. Full range of motion. Skin: Warm, dry with normal turgor. Normal color with no rashes, no lesions, and no evidence of cellulitis. MS/ Extremity: Pulses equal, no cyanosis. Neurovascular intact. Full, normal range of motion. Neuro: Awake and alert, GCS 15, oriented to person, place, time, and situation. Cranial nerves II-XII grossly intact. Motor strength 5/5 in all extremities. Sensory grossly intact. Cerebellar exam normal. Normal gait. Psych: Awake, alert, with orientation to person, place and time. Behavior, mood, and affect are within normal limits. 17:05 ECG was reviewed by the Attending Physician. kdr Vital Signs: 14:42 BP 165 / 60; Pulse 56; Resp 16; Temp 97.5(TE); Pulse Ox 99% on R/A; Weight 55.34 kg; ss Height 5 ft. 2 in. (157.48 cm); Pain 0/10; 16:31 BP 167 / 81; Pulse 73; Resp 16; Pulse Ox 99% on R/A; hb 18:08 BP 189 / 65 RA Supine; Pulse 78; Resp 14; Pulse Ox 97% on R/A; dh3 18:10 BP 160 / 77 RA Sitting; Pulse 83; Resp 14; Pulse Ox 97% on R/A; dh3 18:12 BP 144 / 70 RA Standing; Pulse 91; Resp 21; Pulse Ox 97% on R/A; dh3 14:42 Body Mass Index 22.31 (55.34 kg, 157.48 cm) ss MDM: 16:42 Data reviewed: vital signs, nurses notes, lab test result(s), radiologic studies. kdr Counseling: I had a detailed discussion with the patient and/or guardian regarding: the historical points, exam findings, and any diagnostic results supporting the discharge/admit diagnosis, lab results, radiology results. 17:47 Patient medically screened. kdr 05/30 14:54 Order name: Basic Metabolic Panel kdr 05/30 14:54 Order name: CBC with Diff; Complete Time: 16:39 kdr 05/30 14:54 Order name: LFT's; Complete Time: 16:39 kdr 05/30 14:54 Order name: Magnesium; Complete Time: 16:39 kdr 05/30 14:54 Order name: NT PRO-BNP; Complete Time: 16:39 kdr 05/30 14:54 Order name: PT-INR; Complete Time: 16:39 kdr 05/30 14:54 Order name: Troponin (emerg Dept Use Only); Complete Time: 16:39 kdr 05/30 14:54 Order name: XRAY Chest (1 view); Complete Time: 16:39 kdr 05/30 14:54 Order name: EKG; Complete Time: 14:55 kdr 05/30 14:54 Order name: Cardiac monitoring; Complete Time: 15:10 kdr 05/30 14:55 Order name: Basic Metabolic Panel; Complete Time: 16:39 EDMS 05/30 15:28 Order name: COVID-19 kdr 05/30 14:54 Order name: EKG - Nurse/Tech; Complete Time: 15:10 kdr 05/30 14:54 Order name: IV Saline Lock; Complete Time: 15:22 kdr 05/30 14:54 Order name: Labs collected and sent; Complete Time: 15:22 kdr 05/30 14:54 Order name: O2 Per Protocol; Complete Time: 15:22 kdr 05/30 14:54 Order name: O2 Sat Monitoring; Complete Time: 15:22 kdr 05/30 16:41 Order name: Orthostatic Blood Pressure; Complete Time: 18:17 kdr EC:05 Rate is 66 beats/min. Rhythm is regular, A fib with Occasional PVCs. QRS [place] is kdr Normal. [place] interval is normal. QRS interval is normal. QT interval is normal. Clinical impression: Atrial Fibrillation. Administered Medications: 15:30 Drug: Zofran (Ondansetron) 2 mg Route: IVP; Site: left antecubital; hb 17:15 Follow up: Response: No adverse reaction hb 15:30 Drug: NS 0.9% 500 ml Route: IV; Rate: bolus; Site: left antecubital; hb 16:15 Follow up: Response: No adverse reaction; IV Status: Completed infusion; IV Intake: hb 500ml Disposition: 05/30/20 17:47 Discharged to Home. Impression: Myalgia, Generalized arthralgias, Viral infection of unspecified site. - Condition is Stable. - Discharge Instructions: Musculoskeletal Pain, Pain Without a Known Cause. - Medication Reconciliation Form, Thank You Letter form. - Follow up: Private Physician; When: 2 - 3 days; Reason: If symptoms return, Further diagnostic work-up, Recheck today's complaints, Continuance of care, Re-evaluation by your physician. - Problem is new. - Symptoms have improved. Signatures: Dispatcher [employer] EDMS Eleazar Tenorio MD MD [facility] Abigail Ayala RN RN Deepthi Pablo RN RN Corrections: (The following items were deleted from the chart) 18:42 17:47 05/30/2020 17:47 Discharged to Home. Impression: Myalgia; Generalized hb arthralgias; Viral infection of unspecified site. Condition is Stable. Forms are Medication Reconciliation Form, Thank You Letter, Antibiotic Education, Prescription Opioid Use. Follow up: Private Physician; When: 2 - 3 days; Reason: If symptoms return, Further diagnostic work-up, Recheck today's complaints, Continuance of care, Re-evaluation by your physician. Problem is new. Symptoms have improved. kdr
--- NOTE | 2020-05-30 17:48 | ER ---
Nurse's Notes [facility] Name: Radha Lara Age: 84 yrs Sex: Female : 1935 Arrival Date: 05/30/2020 Time: 14:14 Bed 6 Private MD: Diagnosis: Myalgia;Generalized arthralgias;Viral infection of unspecified site Presentation: 05/30 14:42 Chief complaint: Patient's son or daughter states: "She accidently took 2 tablets of ss her Carvedilol, metformin and Eliquis this morning at 0800." Pt c/o nausea, fatigue and intermittent dizziness. Coronavirus screen: Client denies travel out of the [place] in the last 14 days. Ebola Screen: Patient denies exposure to infectious person. Patient denies travel to an Ebola-affected area in the 21 days before illness onset. Initial Sepsis Screen: Does the patient meet any 2 criteria? No. Patient's initial sepsis screen is negative. Does the patient have a suspected source of infection? No. Patient's initial sepsis screen is negative. Risk Assessment: Do you want to hurt yourself or someone else? Patient reports no desire to harm self or others. Onset of symptoms was May 30, 2020. 14:42 Method Of Arrival: Ambulatory ss 14:42 Acuity: YOLANDE 3 ss Historical: - Allergies: 14:48 Aspirin; ss 14:48 Clonidine; ss 14:48 Codeine; ss 14:48 Demerol; ss 14:48 Ibuprofen; ss 14:48 Iodinated Contrast Media - IV Dye; ss 14:48 Lisinopril; ss 14:48 Niacin; ss 14:48 Nitrofurantoin; ss 14:48 nitrous oxide; ss 14:48 vicoden; ss 14:48 Zoloft; ss - Home Meds: 14:48 Vitamin B-12 2,000 mcg Oral TbER daily [Active]; Crestor 40 mg Oral tab once daily ss [Active]; furosemide 40 mg Oral tab as needed [Active]; Eliquis 5 mg Oral tab 2 times per day [Active]; hydralazine 100 mg Oral tab 3 times per day [Active]; levothyroxine 75 mcg tab 1 tab once daily [Active]; metformin 500 mg Oral Tb24 1 tab 2 times per day [Active]; magnesium oxide 500 mg Oral tab daily [Active]; Multiple Vitamins Oral tab daily [Active]; irbesartan 150 mg Oral tab 1 tab once daily [Active]; amlodipine 10 mg tab once daily for Hypertension [Active]; omeprazole 40 mg Oral cpDR 1 cap once daily [Active]; cranberry Oral twice a day [Active]; pantoprazole 40 mg Oral TbEC 1 tab once daily [Active]; carvedilol 12.5 mg Oral tab 2 times per day [Active]; Plavix 75 mg Oral tab 1 tab once daily [Active]; Probiotic Oral daily [Active]; sodium chloride 1 gram Oral tab 5 times per day [Active]; Vimpat 50 mg Oral tab daily [Active]; Vitamin D3 1,000 unit Oral chew daily [Active]; vitamin E Oral once daily [Active]; - PMHx: 14:48 acid reflux; ADD/ADHD; TIA; Atrial Fib; Hypertension; Kidney stones; UTI; CVA; Sleep ss Apnea; PE; Diabetes - NIDDM; Hyperlipidemia; - PSHx: 14:48 Tonsillectomy; Hysterectomy; Cholecystectomy; CABG; ss - Immunization history:: Adult Immunizations up to date. - Social history:: Smoking status: Patient denies any tobacco usage or history of. Screenin:24 Abuse screen: Denies threats or abuse. Denies injuries from another. Nutritional hb screening: No deficits noted. Tuberculosis screening: No symptoms or risk factors identified. Fall Risk None identified. Assessment: 15:22 General: Appears in no apparent distress. Behavior is calm, cooperative. Pain: Denies hb pain. Neuro: Level of Consciousness is awake, alert, obeys commands. Cardiovascular: Capillary refill < 3 seconds Patient's skin is warm and dry. Respiratory: Respiratory effort is even, unlabored, Respiratory pattern is regular, symmetrical. GI: Reports nausea. : No signs and/or symptoms were reported regarding the genitourinary system. EENT: No signs and/or symptoms were reported regarding the EENT system. Derm: Skin is pink, warm \\T\\ dry. Musculoskeletal: No signs and/or symptoms reported regarding the musculoskeletal system. 16:31 Reassessment: Patient appears in no apparent distress at this time. Patient and/or hb family updated on plan of care and expected duration. Pain level reassessed. Patient is alert, oriented x 3, equal unlabored respirations, skin warm/dry/pink. 17:28 Reassessment: Patient appears in no apparent distress at this time. Patient and/or hb family updated on plan of care and expected duration. Pain level reassessed. Patient is alert, oriented x 3, equal unlabored respirations, skin warm/dry/pink. 18:30 Reassessment: Patient appears in no apparent distress at this time. Patient and/or hb family updated on plan of care and expected duration. Pain level reassessed. Patient is alert, oriented x 3, equal unlabored respirations, skin warm/dry/pink. Vital Signs: 14:42 BP 165 / 60; Pulse 56; Resp 16; Temp 97.5(TE); Pulse Ox 99% on R/A; Weight 55.34 kg; ss Height 5 ft. 2 in. (157.48 cm); Pain 0/10; 16:31 BP 167 / 81; Pulse 73; Resp 16; Pulse Ox 99% on R/A; hb 18:08 BP 189 / 65 RA Supine; Pulse 78; Resp 14; Pulse Ox 97% on R/A; dh3 18:10 BP 160 / 77 RA Sitting; Pulse 83; Resp 14; Pulse Ox 97% on R/A; dh3 18:12 BP 144 / 70 RA Standing; Pulse 91; Resp 21; Pulse Ox 97% on R/A; dh3 14:42 Body Mass Index 22.31 (55.34 kg, 157.48 cm) ss ED Course: 12:21 Initial lab(s) drawn, by fl, sent to lab. Inserted saline lock: 20 gauge in left dh3 antecubital area, using aseptic technique. Blood collected. 14:14 Patient arrived in ED. bg2 14:45 Triage completed. ss 14:48 Arm band placed on right wrist. ss 14:49 Eleazar Tenorio MD is Attending Physician. kdr 14:59 Deepthi Pablo, LAILA is Primary Nurse. hb 15:04 XRAY Chest (1 view) In Process Unspecified. EDMS 15:04 EKG done, by ED staff, reviewed by Eleazar Tenorio MD. dh3 15:24 Patient has correct armband on for positive identification. Bed in low position. Call hb light in reach. Side rails up X 1. 18:41 No provider procedures requiring assistance completed. IV discontinued, intact, hb bleeding controlled, No redness/swelling at site. Administered Medications: 15:30 Drug: Zofran (Ondansetron) 2 mg Route: IVP; Site: left antecubital; hb 17:15 Follow up: Response: No adverse reaction hb 15:30 Drug: NS 0.9% 500 ml Route: IV; Rate: bolus; Site: left antecubital; hb 16:15 Follow up: Response: No adverse reaction; IV Status: Completed infusion; IV Intake: hb 500ml Intake: 16:15 IV: 500ml; Total: 500ml. hb Outcome: 17:47 Discharge ordered by MD. kdr 18:41 Discharged to home via wheelchair, with family. hb 18:41 Condition: stable 18:41 Discharge instructions given to patient, Instructed on discharge instructions, follow up and referral plans. Demonstrated understanding of instructions, follow-up care. 18:42 Patient left the ED. hb Addendum: 06/02/2020 16:27 Addendum: COVID-19 Result: Negative result given to RN to notify pt. Left voice mail. i w 17:15 Addendum: COVID-19 Result: Negative result given to RN to notify pt. Notified pt of i w negative COVID 19 swab results. Pt advised that even with a negative test result they should remain in isolation until symptom free for 3 days without medication. Pt also advised to return to the ED for worsening symptoms. Signatures: Dispatcher [employer] EDMS Eleazar Tenorio MD MD kdr Williams, Irene, RN RN Abigail Ayala RN RN Marnie Snell [facility] Deepthi Pablo RN RN Chanel Pisano [facility]
[2020-05-30 19:04] VITALS: TEMP 97.5
[2020-05-30 19:07] VITALS: O2SAT 97
[2020-05-30 19:10] VITALS: BP 144/70
== END 2020-05-30 18:42 | disposition home or self-care (01) ==
LOC: ER 14:10
DX: B34.9 Viral infection, unspecified (principal); Z20.828 Contact with and (suspected) exposure to other viral communicable diseases; M25.50 Pain in unspecified joint; I10 Essential (primary) hypertension; E11.9 Type 2 diabetes mellitus without complications; E78.5 Hyperlipidemia, unspecified; I48.91 Unspecified atrial fibrillation; Z79.01 Long term (current) use of anticoagulants; Z88.1 Allergy status to other antibiotic agents; Z88.5 Allergy status to narcotic agent; Z88.6 Allergy status to analgesic agent; Z88.8 Allergy status to other drugs, medicaments and biological substances; Z86.73 Personal history of transient ischemic attack (TIA), and cerebral infarction without residual deficits; Z91.041 Radiographic dye allergy status; Z95.1 Presence of aortocoronary bypass graft
CPT/HCPCS: 96361; 93005; 85025; 80048; 36415; 83735; 85610; 80076; 84484; 83880; 71045; 96374; 99284; U0002; J7040; J2405

== ENCOUNTER 2020-07-14 14:39 | Emergency (ER) | payer OTHER ==
--- OUTSIDE RECORDS SUMMARY | 2020-07-14 14:41 | XMS REPORT | Clinical Summary ---
:1935 Author Organization [facility] Address [address] [place] [address] Care Team Providers Name Role Phone Unavailable [...] 42-Bifid Take 1 tablet by 0 Active [id number] (PROBIOTIC mouth daily. PLUS COLOSTRUM) 30-500-50 mg PwPk [id number] Take 1 tablet by 0 Active fumarate [...] 65+ YRS (1 of 1 - 2001 [id number]) MEDICARE ANNUAL WELLNESS (YEAR 2 or FIRST 07/26/2019 YEAR if no IPPE) HEMOGLOBIN A1C 10/30/2019 04/30/2019, 11/20/2017 INFLUENZA VACCINE (#1) 2020 Results Not on fileafter 07/14/2019 Insurance Payer Benefit Plan / Subscriber ID Effective Dates Phone Addre ss Type Group [employer] [id number] 2018-Emelyn Olivas Contracted ALL t Advance Directives For more information, please contact: [phone] Code Status Date Activated Date Inactivated Comments [...]
--- OUTSIDE RECORDS SUMMARY | 2020-07-14 14:42 | XMS REPORT ---
:1935 Author Organization [facility] Address [address] [place], [address] [place] [address] Care Team Providers Name Role Phone Britt Unavailable [phone] PROBLEMS Type Condition ICD9-CM [id number] Onset Condition SNOMED Code Notes Code Code Dates Status Problem Chronic a-fib I48.2 Active 34329800 Problem Obstructive sleep G47.33 Active 17727343 apnea Problem Overactive bladder N32.81 Active 494676645 Problem Obesity E66.9 Active 333324417 Problem GERD K21.9 Active 119835433 (gastroesophageal reflux disease) Problem Allergic rhinitis J30.9 Active 59805310 Problem Hypertension I10 Active 86121350 Problem Memory change R41.3 Active 00885923 Problem Stress at home F43.9 Active 150541286 Problem 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 Active 018579199 Problem Recurrent urinary N39.0 Active 217489837 tract infection Problem Hospital discharge Z09 Active 979725671 follow-up Problem History of TIA Z86.73 Active 963483923 (transient ischemic attack) Problem Other speech R47.89 Active 00829542 disturbance Problem Atherosclerosis I70.90 Active 26228299 Problem Chronic fatigue R53.82 Active 26485799 Problem 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 [id number] carotid artery Problem Mild depression F32.0 Active 110489495 Problem Elevated TSH R79.89 Active 250116853 Problem Other chronic pain G89.29 Active 39544282 Problem Mixed stress and N39.46 Active 848925355 urge urinary incontinence Problem Acquired E03.9 Active 662995220 hypothyroidism Problem Hyponatremia E87.1 Active 82800850 Problem Abnormal mammogram R92.8 Active 662624199 Problem Dysuria R30.0 Active 95497693 Problem Hyperlipidemia E78.5 Active 19881839 Problem Type 2 diabetes E11.9 Active 801997402 Problem Seizure disorder G40.909 Active 516356522 Problem Seasonal allergic J30.2 Active 400351508 rhinitis, unspecified trigger Problem 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 Active 518762665 multiple joints, unspecified osteoarthritis type Problem Gastroesophageal K21.9 Active 614913856 reflux disease, esophagitis presence not specified ALLERGIES Allergen (clinical drug Drug/Non Drug Reaction Allergy Type Onset D ate Status ingredient) Allergy documented on EMR Vicodin Unknown Drug Allergy Active aspirin Aspirin([facility] Unknown Drug Allergy Active Code:[address]-04) lisinopril Lisinopril([facility] Unknown Drug Allergy Active Code:[address]-59) Iodine contrast dye Unknown Non Drug Allergy Active clonidine CloNIDine([facility] Unknown Drug Allergy Active Code:[address]-81) Nitrous oxide Unknown Non Drug Allergy Activ e sertraline Zoloft([facility] Unknown Drug Allergy Active Code:[address]-14) nitrofurantoin Macrodantin([facility] Unknown Drug Allergy Act marty Code:[address]-87) codeine codeine Unknown Drug Allergy Active niacin Niacin([facility] Unknown Drug Allergy Active Code:[address]-29) ENCOUNTERS from 1935 to 2020-06-18 Encounter Location Date Provider Diagnosis [address] [place], Elli Britt Acute cystitis with Family Medicine [place], [place] hematuri a N30.01 and [address] Dysuria R30.0 IMMUNIZATIONS Vaccine Route Administration Date Status Vitamin [...] No information MEDICATIONS Medication SIG (Take, Route, Notes Start Date End Date Status Frequency, Duration) Omeprazole 40 MG 1 EACH ONCE A DAY N ot-Taking orally daily in AM for 90 days Metformin HCl 500 TAKE 1 TABLET BY A ctive MOUTH TWICE DAILY for 90 HydrALAZINE HCl 100 MG 1 tablet with food Active Orally Three times a day Pantoprazole Sodium 40 1 tablet Orally Active MG Once a day for 90 Amlodipine Besylate 10 1 tablet Orally Active MG Once a day for 30 day(s) Vitamin E 400 UNIT Orally Active Magnesium 500 MG Orally Active Cranberry Concentrate 1 capsule with Active 425 MG meals Orally Tylenol Arthritis Pain No t-Taking HydrALAZINE HCl 100 MG as directed Orally November, Not-Taking Three times a day Sodium Chloride 1000 MG 1 tablet Orally 5 Feb, Aug, Active times daily for 90 days Levetiracetam 250 MG 1 tablet Orally Not-Taking every 12 hrs Sodium Chloride 1 GM TAKE 2 TABLET in AM Active and 1 tab EVERY 6 HOURS Orally for 90 days Cyanocobalamin 1000 15 ml Orally Once a Not-Taking MCG/15ML day Coreg 25 MG Orally Active Probiotic - Orally Active Levothyroxine Sodium 1 tablet in the Active 125 MCG morning on an empty stomach Orally Once a day Multivitamin Active Estradiol 0.1 MG/GM as directed Vaginal Jan, Not-Taking Two times a Week for 90 days Plavix 75 MG 1 tablet Orally Not-Seven ing Once a day Carvedilol 25 MG as directed Orally Active Metformin HCl 500 MG TAKE 1 TABLET BY Active MOUTH TWICE DAILY for 90 Irbesartan 150 MG 1 tablet Orally Ac tive Once a day for 30 day(s) Bactrim DS 800-160 MG 1 tablet Orally May, Jun, Active Twice a day for 7 day(s) Vitamin B-12 Not-Taking Rosuvastatin Calcium 40 TAKE 1 TABLET BY Active MOUTH DAILY for 90 Trimethoprim 100 MG 1 tablet Orally Active Once a day for 90 Rosuvastatin Calcium 40 TAKE 1 TABLET BY Active MG MOUTH DAILY for 90 Montelukast Sodium 10 1 tablet Orally Sep, Not-Taking MG Once a day for 90 days Sodium Chloride 1 GM 1 tablet Orally Oct, Active every 6 hours for 90 days Vitamin D3 1000 UNIT 1 capsule Orally Not-Taking Once a day Omeprazole 40 TAKE 1 CAPSULE BY Not- Taking MOUTH EVERY DAY for 90 Sertraline HCl 25 MG 1 tablet Orally Not-Taking Once a day for 30 day(s) Methenamine Hippurate 1 1 tablet Orally Not-Taking GM Twice a day for 30 day(s) Crestor 40 MG 1 EACH ONCE A DAY Acti ve Eliquis 5 MG 1 tablet Orally Active twice a day PROCEDURES No Information RESULTS No Results REASON FOR VISIT possible UTI [phone] MEDICAL (GENERAL) HISTORY Type Description Date Medical [...] STATUS No Information ASSESSMENTS Encounter Date Diagnosis Assessment Notes Treatment Notes Treatm ent Clinical Notes May, Acute cystitis -- take antibiotics with hematuria as directed. Will (ICD-10 - N30.01) send urine for urine culture and sensitivity to make sure antibiotic placed on is sensitive to the organism causing UTIl. -- increase water intake -- always wipe front to back -- try to clean well after bowel movement possibly with baby wipes. -- urinate after intercourse May, Dysuria (ICD-10 - R30.0) PLAN OF TREATMENT Medication Medication Name Sig Start Date Stop Date Bactrim DS 800-160 MG 1 tablet Orally Twice a day for 7 May, Jun, day(s) Treatment Notes Assessment Notes Clinical Notes Acute cystitis with hematuria -- take antibiotics as smita johns Will send urine for urine culture and sensitivity to make sure antibiotic placed on is sensitive to the organism causing UTIl.-- increase water intake-- always wipe front to back-- try to clean well after bowel movement possibly with baby wipes.-- urinate after intercourse Treatment Notes Test Name Order Date Urine Culture, Routine 2020-06-18 URINALYSIS AUTO W/O SCOPE ([id number]) 2020-06-18 Next Appt Details 2M Reason: Provider Name:Elli Britt, 2020-07-15 08:3 0:00 AM, [facility] [address], [facility] [address], [place], [address], Provider Name:Elli Britt, 2020-07-22 01:0 0:00 PM, [address], [facility] [address], [place], [address], Provider Name:Adamaris Cifuentes, 10:15:00 AM, [address] [place] [address], [facility] [address], [place], [address], Insurance Providers Payer Name Payer Payer Insured Patient Coverage Coverage End Address Phone Name Relationship to Start Date Dwain e Insured [employer] [address] [address] [phone] Rodri Lara self [employer] [facility] [place] [id number]
--- OUTSIDE RECORDS SUMMARY | 2020-07-14 14:42 | XMS REPORT | Continuity of Care Document ---
:1935 Author Organization [facility] t Address [address] [place] [address] Care Team Providers Name Role Phone MIR MENDENHALL Attending Clinician Unavailable JAMAAL MEJIA [...] Active Info Not [facility] Reaction Available [facility] ent Clinics Macrodan Adverse Active Info Not [facility] tin Reaction Available [facility] ent Clinics Lisinopr Adverse Active Info Not [facility] il Reaction Available [facility] ent [facility] Aspirin Adverse Active Info Not [facility] Reaction Available [facility] Nitrous Adverse Active Info Not [facility] oxide Reaction Available [facility] Iodine Adverse Active Info Not [facility] contrast Reaction Available Cristian es - dye [facility] Vicodin Adverse Active Info Not [facility] Reaction Available [facility] Niacin Adverse Active Info Not [facility] Reaction Available [facility] Social History Social Habit Start Date Stop Date Quantity Comments Source Sex Assigned At [facility] Tobacco use and 2019-04-30 2019-04-30 Never used [facility] kes - exposure 00:00:00 00:00:00 [facility] Smoking Status Start Date Stop Date Source Never smoker [facility] Medications Ordered Filled Start Stop Current Ordering Indication Dosage Frequency Signature Comments Components Source Medication Medication Date Date Medication? Clinician (SIG) Name Name Sodium Sodium 2020- No Na Britt [address] Chloride Chloride 8-17 -12 [facility]: [facility]:00 Memoria 00 :00 [facility] Monteluka Montelukast Yes Na Britt [address] [facility] Sodium Sodium 3-20 [facility] - 00:00: Memoria 00 [facility] carvedilol 2018-07 Yes 25mg Take [address] (COREG) 25 0-08 by mouth 2 Cristian es - MG tablet 16:46: (two) Medical 41 times Center daily with breakfast and dinner. rosuvastati 2018-07 Yes 40mg QD Take [address] [facility] n (CRESTOR) 0-08 by mouth Luke s - 40 MG 16:46: daily. Medical tablet 41 Center apixaban 2018-07 Yes 5mg Q.5D Take [address] [facility] (ELIQUIS) 5 0-08 by mouth 2 Cyndi kes - mg Tab 16:46: (two) Medical tablet 41 times Center daily. hydrALAZINE 2018-07 Yes 100mg Q.[id number] Take [address] [facility] (APRESOLINE 0-08 [id number] mg by L ukes - ) 100 MG 16:46: 3D mouth 3 Medica l tablet 41 (three) Center times daily. magnesium 2018-07 Yes 500mg QD Take [address] gluconate 0-08 mg by [facility]ukes - (MAGONATE) 16:46: mouth Medica l 27.5 mg 41 daily . [place] (500 mg) tablet metFORMIN 2018-07 Yes 500mg [...] mouth Medica l 24 hr 41 nightly. [place] capsule cyanocobala 2018-07 Yes 1000ug QD Take 1,[address] [facility] min 0-08 mcg by [facility]ukes - (VITAMIN 16:46: mouth Medical B-12) 1000 41 daily. [place] MCG tablet cholecalcif 2018-07 Yes 1000U QD Take 1,[address] roly, 0-08 Units by [facility] - vitamin D3, 16:46: mouth Medic al 1,000 unit 41 daily. [place] capsule clopidogrel 2018-07 Yes 75mg QD Take [address] [facility] (PLAVIX) 75 0-08 by mouth Luke s - mg tablet 16:46: daily. Medica l 41 [place] sertraline 2018-07 Yes 25mg QD Take [address] (ZOLOFT) 25 0-08 by mouth Luke s - MG tablet 16:46: daily. Medica l 41 [place] cranberry 2018-07 Yes 4200mg Q.5D Take 4,[address] conc-ascorb 0-08 mg by [facility]ukes - ic acid 16:46: mouth 2 Medical (CRANBERRY 41 (two) Center CONCENTRATE times ) 140-100 daily. mg Cap Lactobac 2018-07 Yes 1{tbl} QD Take 1 [facility] 42-Bifid 0-08 tablet by [facility]ukes - 8-colost-FO 16:46: mouth Medic al S 41 daily. [place] (PROBIOTIC PLUS COLOSTRUM) 30-500-50 mg PwPk multivit-mi 2018-07 Yes 1{tbl} QD Take [address] n-ferrous 0-08 tablet by [facility] - fumarate 16:46: mouth Medical (MULTI 41 daily. [place] VITAMIN) 9 mg iron/15 mL Liqd irbesartan Yes 150mg QD Take [address] (AVAPRO) 7-28 mg by [facility]ukes - 150 MG 00:00: mouth Medical tablet 00 daily. [place] amLODIPine Yes 10mg QD Take [address] (NORVASC) 7-28 by mouth [facility] - 10 MG 00:00: daily. Medical tablet 00 [place] Estradiol Estradiol Yes Na Britt as [facility] 7-22 directed [facility] - 00:00: Memoria 00 [facility] ent [facility] HydrALAZINE HydrALAZINE Yes Na Britt [address] [facility] HCl HCl 5-14 with food [facility] - 00:00: Memoria 00 [facility] amlodipine amlodipine No 1 Q1D amlodipine [facility] 5 mg tablet 5 mg tablet 5 mg F amily Take 1 Take 1 tablet Practic tablet tablet Take 1 e every day every day tablet by oral by oral every day route. route. by oral route. carvedilol carvedilol No 1 BID carvedilol [facility] 25 mg 25 mg 25 mg Family tablet Take tablet Take tablet Practic 1 tablet 1 tablet Take 1 e twice a day twice a day tablet by oral by oral twice a route. route. day by oral route. clopidogrel clopidogrel No 1 Q1D clopidogre [facility] 75 mg 75 mg l 75 mg Family tablet Take tablet Take tablet Practic 1 tablet 1 tablet Take 1 e every day every day tablet by oral by oral every day route. route. by oral route. Crestor 40 Crestor 40 No 1 Q1D Crestor 40 Village mg tablet mg tablet mg tablet [...] route. hydralazine hydralazine No 1 TID hydralazin [facility] 100 mg 100 mg e 100 mg Family tablet Take tablet Take tablet Practic 1 tablet 3 1 tablet 3 Take 1 e times a day times a day tablet 3 by oral by oral times a route. route. day by oral route. irbesartan irbesartan No 1 Q1D irbesartan [facility] 150 mg 150 mg 150 mg Family tablet Take tablet Take tablet Practic 1 tablet 1 tablet Take 1 e every day every day tablet by oral by oral every day route. route. by oral route. metformin metformin No 1 BID metformin [facility] 500 mg 500 mg 500 mg Family tablet Take tablet Take tablet Practic 1 tablet 1 tablet Take 1 e twice a day twice a day tablet by oral by oral twice a route. route. day by oral route. omeprazole omeprazole No 1capsul Q1D omeprazole [facility] 40 mg 40 mg e(s) 40 [...] Cyndi kes - Pain Pain Memoria l [facility] Methenamine Methenamine Yes Na Britt [address] [facility] Hippurate Hippurate [facility] Irbesartan Irbesartan Yes Na Britt [address] [facility] Vitamin Vitamin Yes Na Britt not [facility] B-12 B-12 defined [facility] Crestor Crestor Yes Na Britt [address] [facility] ONCE A DAY [facility] Metformin Metformin Yes Na Britt [address] [facility] HCl HCl with meals [facility] Vitamin E Vitamin E Yes Na Britt not [facility] defined [facility] Omeprazole Omeprazole Yes Na Britt TAKE [address] [facility] CAPSULE BY [facility] - MOUTH Memoria EVERY DAY l [facility] Amlodipine Amlodipine Yes Na Britt [address] [facility] Besylate Besylate [facility] Eliquis Eliquis Yes Na Britt [address] [facility] Multivitami Multivitami Yes Na Britt not [facility] n n defined [facility] Probiotic Probiotic Yes Na Britt not [facility] defined [facility] Trimethopri Trimethopri Yes Na Britt [address] [facility] m m [facility] Magnesium Magnesium Yes Na Britt not [facility] defined [facility] Levetiracet Levetiracet Yes Na Britt [address] [facility] am am [facility] Coreg Coreg Yes Na Britt not [facility] defined [facility] Metformin Metformin Yes Na Britt TAKE [address] [facility] HCl HCl TABLET BY [facility] - MOUTH Memoria TWICE l DAILY [facility] ent Clinics Rosuvastati Rosuvastati Yes Na Britt TAKE [address] [facility] n Calcium n Calcium TABLET BY [facility] - MOUTH Memoria DAILY l [facility] Sertraline Sertraline Yes Na Britt [address] [facility] HCl HCl [facility] Vitamin D3 Vitamin D3 Yes Na Britt [address] [facility] Cyanocobala Cyanocobala Yes Na Britt [address] [facility] min min [facility] Omeprazole Omeprazole Yes Na Britt [address] [facility] [facility] ONCE A DAY [facility] Plavix Plavix Yes Na Britt [address] [facility] Carvedilol Carvedilol Yes Na Britt as [facility] directed [facility] Levothyroxi Levothyroxi Yes Na Brtit [address] [facility] ne Sodium ne Sodium in the Cristian es - morning on Memoria an empty l stomach [facility] Sodium Sodium Yes Na Britt TAKE [address] [facility] [facility] Chloride Chloride TABLET in Cyndi kes - AM and 1 Memoria tab EVERY l 6 HOURS [facility] Cranberry Cranberry Yes Na Britt [address] [facility] Concentrate Concentrate with meals [facility]ics Vital Signs Vital Name Observation Time Observation Value Comments Source Height 2020-02-19 00:00:00 62 [in_i] [facility] Height 2019-10-16 00:00:00 62 [in_i] [facility] BMI (Body Mass 2019-10-16 00:00:00 23.8 kg/m2 [facility]) Practice Body Weight 2019-10-16 00:00:00 130 [lb_av] [facility] Procedures This patient has no known procedures. Plan of Care Planned Activity Planned Date Details Comments Source Future Scheduled Test 2020-03-[address] [facility] 00:[facility]00 (#1) [code = Medical Center INFLUENZA VACCINE (#1)] Future Scheduled Test 2019-10-[address] [facility] - 00:[facility]00 measurement Medical Center (procedure) [code = 42721514] Future Scheduled Test 2019-07-[address] [facility] - 00:00:00 WELLNESS (YEAR 2 or Medical Center FIRST YEAR if no IPPE) [code = MEDICARE ANNUAL WELLNESS (YEAR 2 or FIRST YEAR if no IPPE)] Future Scheduled Test 2001 PNEUMOCOCCAL 65+ YRS [facility] - 00:00:00 (1 of 1 - Medical Center [id number]) [code = PNEUMOCOCCAL 65+ YRS (1 of 1 - [id number] PCV13)] Future Scheduled Test 1946 DIABETIC EYE EXAM [facility] - 00:00:00 [code = DIABETIC EYE Medical Center EXAM] Future Scheduled Test 1946 [facility] examination Medical Center (regime/therapy) [code = 615634144] Future Scheduled Test 1946 Urine screening for [facility] - 00:00:00 protein (procedure) Medical Center [code = 236837008] Future Appointment 2020-08-24 Belle Garcia, Reese illage Family 00:00:00 [address]; [address], [place] [address] Encounters Start End Encounter Admission Attending Care Care Encounter Source Date/Time Date/Time Type Type Clinicians Facility Department ID 2020-06-17 2020-06-17 Outpatient [facility] [id number] [facility] 2020-05-22 2020-05-22 Outpatient [facility] [id number] [facility] 2020-04-23 2020-04-23 Outpatient [facility] [id number] [facility] 2020-04-16 2020-04-16 Outpatient [facility] [id number] [facility] 2020-03-26 2020-03-26 [facility] [id number] 11:20:00 11:20:00 t [place] [facility] Outpati ent Clinics 2020-03-07 2020-03-07 [facility] [id number] 14:44:00 14:44:00 t [place] [facility] Outpati ent Clinics 2020-03-05 2020-03-05 [facility] [id number] 11:00:00 11:00:00 t Specialty/U Cyndi kes - Specialty rology [facility] a /Urology Clinic l Clinic Outpati ent Clinics 2020-03-03 2020-03-03 [facility] [id number] 12:39:00 12:39:00 t [place] [facility] Outpati ent Clinics 2020-03-03 2020-03-03 [facility] [id number] 12:15:00 12:15:00 t [place] [facility] Outpati ent Clinics 2020-02-19 2020-02-[address] [facility] [place] - [id number] V illage 00:00:00 00:00:00 [facility] eliana o, DIRECTOR OF FINANCIAL REPORTING: Medical - Practi c [address] [email or web address], [address] [address], [place] [address] , Ph. 2020-01-18 2020-01-18 [facility] [id number] 10:39:00 10:39:00 t [place] [facility] Outpati ent Clinics 2020-01-17 2020-01-17 [facility] [id number] 10:40:00 10:40:00 t [place] [facility] Medicine Medicine Outpati ent Clinics 2020-01-01 2020-01-01 [facility] [id number] 13:55:00 13:55:00 t Panraven s [email or web address] [facility] l Medicine Outpati ent Clinics 2019-12-20 2019-12-20 [facility] [id number] 09:43:00 09:43:00 t [place] [facility] Medicine l Medicine Outpati ent Clinics 2019-12-18 2019-12-18 [facility] [id number] 11:20:00 11:20:00 t [place] [facility] l Medicine Outpati ent Clinics 2019-12-04 2019-12-04 [facility] [id number] 10:00:00 10:00:00 t Specialty/U Cyndi kes - Specialty rology Memori a /Urology Clinic l Clinic Outpati ent Clinics 2019-12-03 2019-12-03 [facility] [id number] 11:31:00 11:31:00 t [place] [facility] l Medicine Outpati ent Clinics 2019-11-26 2019-11-26 [facility] [id number] 08:43:00 08:43:00 t [place] [facility] l Medicine Outpati ent Clinics 2019-11-16 2019-11-16 [facility] [id number] 08:35:00 08:35:00 t Specialty/U Cyndi kes - Specialty rology Memori a /Urology Clinic l Clinic Outpati ent Clinics 2019-11-10 2019-11-10 [facility] [id number] 14:05:00 14:05:00 t [facility] Sympara Medical s [email or web address] [facility] l Medicine Outpati ent Clinics 2019-10-17 2019-10-17 [facility] [id number] 14:55:00 14:55:00 t [place] [facility] Medicine Outpati ent Clinics 2019-10-16 2019-10-[address] [facility] [place] - [id number] V illage 00:00:00 00:00:00 [facility] eliana aguilar DIRECTOR OF FINANCIAL REPORTING: Medical - Practi winter [address] [email or web address] [facility], [address], [place] [address] , Ph. 2019-10-12 2019-10-12 [facility] [id number] 15:58:00 15:58:00 t [place] [facility] Medicine Outpati ent Clinics 2019-10-01 2019-10-01 [facility] [id number] 15:42:00 15:42:00 t [place] [facility] Medicine Outpati ent Clinics 2019-09-25 2019-09-25 [facility] [id number] 11:20:00 11:20:00 t [place] [facility] Medicine Medicine Outpati ent Clinics 2019-09-18 2019-09-18 [facility] [id number] 11:15:00 11:15:00 t Specialty/U Cyndi kes - Specialty rology Memori a /Urology Clinic l Clinic Outpati ent Clinics 2019-09-14 2019-09-14 [facility] [id number] 11:32:00 11:32:00 t [place] [facility] Medicine Medicine Outpati ent Clinics 2019-09-04 2019-09-04 [facility] [id number] 11:20:00 11:20:00 t [place] [facility] Medicine Medicine Outpati ent Clinics 2019-09-04 2019-09-04 [facility] [id number] 10:00:00 10:00:00 t Specialty/U Cyndi kes - Specialty rology Memori a /Urology Clinic l Clinic Outpati ent Clinics 2019-08-08 2019-08-08 [facility] [id number] 10:40:00 10:40:00 t Panraven s [email or web address] [facility] l Medicine Outpati ent Clinics 2019-08-02 2019-08-02 [facility] [id number] 13:00:00 13:00:00 t Specialty/U Cyndi kes - Specialty rology Memori a /Urology Clinic l Clinic Outpati ent Clinics 2019-07-09 2019-07-09 [facility] [id number] 14:00:00 14:00:00 t [employer] [email or web address] [facility] Medicine l Medicine Outpati ent Clinics 2019-05-29 2019-05-29 [facility] [id number] 11:20:00 11:20:00 t [place] [facility] l Medicine Outpati ent Clinics 2019-05-15 2019-05-15 [facility] [id number] 10:15:00 10:15:00 t Specialty/U Cyndi kes - Specialty rology Memori a /Urology Clinic l Clinic Outpati ent Clinics 2019-04-24 2019-04-24 [facility] [id number] 10:40:00 10:40:00 t [place] [facility] Medicine Outpati ent Clinics 2019-04-09 2019-04-09 [facility] [id number] 13:20:00 13:20:00 t [place] [facility] Medicine Medicine Outpati ent Clinics 2019-03-24 2019-03-24 [facility] [id number] 12:00:00 12:00:00 t Urgent Urgent [facility] L ukes - Care Clinic [facility] l Outpati ent Clinics 2019-03-15 2019-03-15 [facility] [id number] 13:22:00 13:22:00 t Urgent Ur[facility] L ukes - Care Clinic [facility] l Outpati ent Clinics 2019-03-13 2019-03-13 [facility] [id number] 10:39:00 10:39:00 t Panra[employer] s [email or web address] [facility] Medicine l Medicine Outpati ent Clinics 2019-03-12 2019-03-12 [facility] [id number] 10:30:00 10:30:00 t Urgent Ur[facility] L ukes - Care Clinic [facility] l Outpati ent Clinics 2019-02-28 2019-02-28 [facility] [id number] 13:00:00 13:00:00 [place] [employer] Luke s - Drive [facility] Medicine l Medicine Outpati ent Clinics 2019-02-12 2019-02-12 [facility] [id number] 10:15:00 10:15:00 t Specialty/U Cyndi kes - Specialty rology [facility] a /Urology Clinic l Clinic Outpati ent Clinics 2019-02-08 2019-02-08 [facility] [id number] 15:00:00 15:00:00 [place] [employer] s - Drive [facility] l Medicine Outpati ent Clinics 2019-02-08 2019-02-08 [facility] [id number] 08:42:00 08:42:00 t [place] [employer] s - Drive [facility] l Medicine Outpati ent Clinics 2019-02-06 2019-02-06 [facility] [id number] 09:40:00 09:40:00 t [place] [employer] s - Drive [facility] l Medicine Outpati ent Clinics 2019-01-09 2019-01-09 [facility] [id number] 10:40:00 10:40:00 t [place] [employer] Luke s - Drive [facility] l Medicine Outpati ent Clinics 2019-01-03 2019-01-03 [facility] [id number] 13:07:00 13:07:00 t [place] [employer] Luke s - Drive [facility] l Medicine Outpati ent Clinics 2018-12-28 2018-12-28 [facility] [id number] 14:00:00 14:00:00 t [place] [employer] s - Drive [facility] Medicine Outpati ent Clinics 2018-09-14 2018-09-14 [facility] [id number] 09:26:00 09:26:00 t [place] [facility] s [facility] 2018-09-08 2018-09-08 [facility] [id number] 09:30:00 09:30:00 t [facility] ent [facility] 2018-08-07 2018-08-07 [facility] [id number] 08:45:00 08:45:00 [facility] ent [facility] 2018-02-20 2018-02-20 [facility] [id number] 14:30:00 14:30:00 t [facility] 2018-02-03 2018-02-03 [facility] [id number] 09:00:00 09:00:00 [facility] Results Test Description Test Time Test Comments Results Result [facility] e Comments CT, CTANGIO BRAIN 2019-05-01 Reason for FINAL REPORT PATIENT 10:58:00 exam:->stroke ID: [id number] CLINICAL HISTORY: TIA TECHNIQUE: Initially, noncontrast head [...] intact. There is no evidence for a [place] proximal branch vessel occlusion. Mild [...] artery stenosis, unchanged. No evidence for a [place] proximal branch vessel occlusion. Signed: Alexa Bolden MDReport Verified Date/Time: 05/01/2019 10:58:29 Reading Location: [address] Neuro Reading Room , CAROTID, ANGIO 2019-05-01 Reason for FINAL REPORT PATIENT 10:58:00 exam:->eval ID: [id number] for TIA CLINICAL HISTORY: TIA TECHNIQUE: Initially, [...] intact. There is no evidence for a [place] proximal branch vessel occlusion. Mild [...] artery stenosis, unchanged. No evidence for a [place] proximal branch vessel occlusion. Signed: Alexa Bolden MDReport Verified Date/Time: 05/01/2019 10:58:29 Reading Location: [address] Neuro Reading Room C METABOLIC PANEL [...] NOT 1092) ACCURATE CRE ATININE CLEARANCE IN [place] EDICTING [...] 0-0 (BEAKER) (test code = 413) TROPONIN [id number] 20:18:00 Test Item Value Reference Range Interpretation [...] neurological disease, and persistent tachyarrhythmia.MR, BRAIN, WITHOUT [id number] 19:07:00Reason for exam:->Ischemic Stroke EvaluationFINAL REPORT MR, [...] MDReport Verified Date/Time: 04/30/2019 19:07:03 Reading Location: [address] Neuro Reading Room HEMOGLOBIN [id number] 10:33:00 Test Item Value Reference Range Interpretation Comments HEMOGLOBIN A1C (BEAKER) (test code = 6.6 % 4.3-6.1 H 368) FastingVITAMIN [id number] 09:00:00 Test Item Value Reference Range Interpretation [...] NOT APPLICABLE FOR DIALYSIS PATIEN TS. FastingLIPID [id number] 07:30:00 Test Item Value Reference Range Interpretation [...] 130-159 High 160-189 Very High >=190 FastingTROPONIN [id number] 07:28:00 Test Item Value Reference Range Interpretation [...] and persistent tachyarrhythmia.FastingCBC W/PLT COUNT & AUTO [id number] 05:43:00 Test Item Value Reference Range Interpretation [...] (BEAKER) (test code = 2801) [place], ANGIOGRAM, [id number] 11:37:00Reason for exam:->TIAsFINAL REPORT November 22, 2017 [...] guidance and strict sterile technique a 4 [place] femoral sheath was inserted into the right common femoral artery. Through the sheath a 4 [place] vertebral catheter was then advanced over the [...] demonstrates a critical supraclinoid ICA stenosis of [id number]%. There is delayed antegrade flow. The venous [...] diffuse right cavernous ICA stenosis. Signed: Susanna Adeneport Verified Date/Time: 11/22/2017 11:37:47 Reading Location: [facility] Y018 Neuro Angio Reading Room POCT- GLUCOSE [id number] 07:43:00 Test Item Value Reference Range Interpretation Comments POC-GLUCOSE METER 149 mg/dL 70-110 H TESTED AT [facility] 6720 (BEAKER) (test code = [facility] 1538) [id number] 06:46:00 Test Item Value Reference Range Interpretation Comments MAGNESIUM (BEAKER) (test code = 2.0 mg/dL 1.6-2.6 627) BASIC METABOLIC [id number] 06:46:00 Test Item Value Reference Range Interpretation [...] mg/dL 8.4-10.2 (test code = 697) EGFR ([facility]) (test 87 mL/min/1.73 ESTIMA OMAR GFR IS code = 1092) sq m NOT ACCURATE CREATININE CLEARANCE IN PREDICTING GLOMERULAR FILTRATION RATE . ESTIMATED GFR I S NOT APPLICABLE FOR DIALYSIS PATIEN [place]. [id number] 06:33:00 Test Item Value Reference Range Interpretation Comments PROTIME ([facility]) (test code = 15.5 seconds 11.7-14.7 H 759) INR ([facility]) (test code = 370) 1.2 <=5.9 PARTIAL THROMBOPLASTIN TIME 35.9 seconds 22.5-36.0 ([facility]) (test code = 760) RECOMMENDED COUMADIN/WARFARIN INR THERAPY RANGESSTANDARD DOSE: 2.0 - 3.0 Includes: PROPHYLAXIS forvenous thrombosis, systemic embolization; TREATMENT for venous thrombosis and/or pulmonary embolus.HIGH RISK: Target INR is 2.5-3.5 for patients with mechanical heart valves.POCT-GLUCOSE [id number] 06:22:00 Test Item Value Reference Range Interpretation Comments POC-GLUCOSE METER 161 mg/dL 70-110 H TESTED AT [place] [address] ([facility]) (test code = [facility]A [facility] 1538) [id number] POCT-GLUCOSE [id number] 02:08:00 Test Item Value Reference Range Interpretation Comments POC-GLUCOSE METER 182 mg/dL 70-110 H TESTED AT [place] [address] ([facility]) (test code = [facility] 1538) [id number] POCT-GLUCOSE [id number] 19:30:00 Test Item Value Reference Range Interpretation Comments POC-GLUCOSE METER 146 mg/dL 70-110 H TESTED AT [place] [address] ([facility]) (test code = [facility] 1538) [id number] CT, CAROTID, [id number] 14:54:00Please include aortaFINAL REPORT CT angiogram of [...] the left ICA terminus. There is also jtyj-ro-ebvzxqbb multifocal narrowing of the right carotid siphon. [...] Mcdanielsort Verified Date/Time: 11/21/2017 14:54:26 Reading Location: [facility] Radiology Reading [facility] [id number] 14:54:00FINAL REPORT CT angiogram of the upper [...] the left ICA terminus. There is also rgmd-wz-zjunxjbn multifocal narrowing of the right carotid siphon. [...] Mcdaniels Verified Date/Time: 11/21/2017 14:54:26 Reading Location: [facility] Radiology Reading Room POCT-GLUCOSE [id number] 11:50:00 Test Item Value Reference Range Interpretation Comments POC-GLUCOSE METER 153 mg/dL 70-110 H TESTED AT [place] [address] ([facility]) (test code = [facility] 1538) [id number] POCT-GLUCOSE [id number] 08:08:00 Test Item Value Reference Range Interpretation Comments POC-GLUCOSE METER 125 mg/dL 70-110 H TESTED AT [facility] 67 ([facility]) (test code = [facility] 1538) [id number] 06:43:00 Test Item Value Reference Range Interpretation Comments MAGNESIUM ([facility]) (test code = 2.1 mg/dL 1.6-2.6 627) BASIC METABOLIC [id number] 06:43:00 Test Item Value Reference Range Interpretation Comments SODIUM (BEAKER) 136 meq/L 136-145 (test code = 381) POTASSIUM (BEAKER) 4.0 meq/L 3.5-5.1 (test code = 379) CHLORIDE (BEAKER) 101 meq/L 98-107 (test code = 382) CO2 (BEAKER) (test 27 meq/L code = 355) BLOOD UREA NITROGEN 12 [...] FOR DIALYSIS PATIEN TS. TSH/FREE T4 IF [id number] 22:12:00 Test Item Value Reference Range Interpretation Comments THYROID STIMULATING HORMONE 4.66 uIU/mL 0.35-4.94 (BEAKER) (test code = 772) [id number] 21:54:00 Test Item Value Reference Range Interpretation Comments MAGNESIUM (BEAKER) (test code = 2.0 mg/dL 1.6-2.6 627) BASIC METABOLIC [id number] 21:54:00 Test Item Value Reference Range Interpretation [...] NOT APPLICABLE FOR DIALYSIS PATIEN TS. LIPID [id number] 21:54:00 Test Item Value Reference Range Interpretation Comments TRIGLYCERIDES ([facility]) (test code = 70 mg/dL 540) CHOLESTEROL ([facility]) (test code = 101 mg/dL 631) HDL CHOLESTEROL ([facility]) (test code 39 mg/dL = 976) LDL CHOLESTEROL CALCULATED ([facility]) 48 mg/dL (test code = 633) Triglyceride Reference Range: Low Risk <150 Borderline 150-199 High Risk 200-499 Very High Risk >=500Cholesterol Reference Range: Low Risk <200 Borderline 200-239 High Risk >240HDL Cholesterol Reference Range: Low Risk >=60 High Risk <40LDL Cholesterol Reference Range: Optimal <100 Near Optimal 100-129 Borderline 130-159 High 160-189 Very High >=190POCT-GLUCOSE [id number] 21:35:00 Test Item Value Reference Range Interpretation Comments POC-GLUCOSE METER 128 mg/dL 70-110 H TESTED AT [place] [address] ([facility]) (test code = [facility] 1538) [id number] POCT-GLUCOSE [id number] 17:55:00 Test Item Value Reference Range Interpretation Comments POC-GLUCOSE METER 113 mg/dL 70-110 H TESTED AT [place] [address] ([facility]) (test code = [facility] 1538) [address] POCT-GLUCOSE [id number] 12:32:00 Test Item Value Reference Range Interpretation Comments POC-GLUCOSE METER 120 mg/dL 70-110 H TESTED AT [place] [address] ([facility]) (test code = [facility] 1538) [id number] MR, MRA, BRAIN, WITHOUT [id number] 11:33:00Reason for exam:->Ischemic Stroke EvaluationFINAL REPORT MRA Head and Neck CLINICAL HISTORY: CVA TECHNIQUE: MRA of the head utilizing 3-D ltca-gx-vuaact technique, with 3-D reconstructions. MRA of the neck utilizing 2-D and 3-D xqtv-lt-qgreog technique, with 3-D reconstructions. COMPARISON: None FINDINGS: [...] There is no other evidence for a [place] proximal branch vessel occlusion. There [...] MDReport Verified Date/Time: 11/20/2017 11:33:14 Reading Location: [address] Neuro Reading Room MR, MRA, NECK, WITHOUT IV [id number] 11:33:00Reason for exam:->Ischemic Stroke EvaluationFINAL REPORT MRA Head and Neck CLINICAL HISTORY: CVA TECHNIQUE: MRA of the head utilizing 3-D zufp-ls-kdwmgo technique, with 3-D reconstructions. MRA of the neck utilizing 2- D and 3-D grqu-rq-auqbio technique, with 3-D reconstructions. COMPARISON: None FINDINGS: [...] There is no other evidence for a [place] proximal branch vessel occlusion. There [...] Bolden Verified Date/Time: 11/20/2017 11:33:14 Reading Location: [address] Neuro Reading Room MR, BRAIN, WITHOUT [id number] 11:05:00Reason for exam:->Ischemic Stroke EvaluationFINAL REPORT MRI [...] correl ation is requested. Signed: Alexa Bolden Verified Date/Time: 11/20/2017 11:05:05 Reading Location: [facility] C013V Neuro Reading Room HEMOGLOBIN [id number] 09:08:00 Test Item Value Reference Range Interpretation Comments HEMOGLOBIN A1C (BEAKER) (test code = 6.1 % 4.3-6.1 368) POCT-GLUCOSE [id number] 08:27:00 Test Item Value Reference Range Interpretation Comments POC-GLUCOSE METER 125 mg/dL 70-110 H TESTED AT [facility] 6720 (BEAKER) (test code = [place] [place] 1538) [id number] TSH/FREE T4 IF [id number] 07:47:00 Test Item Value Reference Range Interpretation Comments THYROID STIMULATING HORMONE 5.97 uIU/mL 0.35-4.94 H (BEAKER) (test code = 772) VITAMIN [id number] 07:44:00 Test Item Value Reference Range Interpretation Comments VITAMIN B12 (BEAKER) (test code = 857 pg/mL 213-816 H 774) CBC W/PLT COUNT & AUTO [id number] 06:47:00 Test Item Value Reference Range Interpretation [...] % 0-1 PERCENT (BEAKER) (test code = 3986) POCT-GLUCOSE [id number] 22:09:00 Test Item Value Reference Range Interpretation Comments POC-GLUCOSE METER 130 mg/dL 70-110 H TESTED AT [facility] 6720 ([facility]) (test code = ISA [place] 1538) [id number]
[2020-07-14] MEDS ORDERED: NA CHLORIDE 0.9% 500 ML ONE (15:30)
--- NOTE | 2020-07-14 15:31 | RAD REPORT ---
EXAM DESCRIPTION: CT - Head Brain Wo Cont - 07/14/2020 3:21 pm CLINICAL HISTORY: DIZZINESS Headache, drowsiness COMPARISON: Facial Bones W/ Mpr dated 04/12/2020; Head Brain Wo Cont dated 03/04/2020 TECHNIQUE: All CT scans are performed using dose optimization technique as appropriate and may inclu de automated exposure control or mA/KV adjustment according to patient size. FINDINGS: No intracranial hemorrhage, hydrocephalus or extra-axial fluid collection.Mild frontal bra in atrophy noted.No areas of brain edema or evidence of midline shift. The paranasal sinuses and mastoids are clear. The calvarium is intact. Atherosclerotic vertebral nacho rafael. IMPRESSION: No acute intracranial abnormality.
--- NOTE | 2020-07-14 16:44 | RAD REPORT ---
EXAM DESCRIPTION: CT - Abdomen Pelvis Wo Contrast - 07/14/2020 4:21 pm CLINICAL HISTORY: Abdominal pain. NAUSEA / VOMITING COMPARISON: Abdomen Pelvis Wo Contrast dated 11/10/2019; CT-STONE PROTOCOL dated 05/11/2011 TECHNIQUE: CT imaging of the abdomen and pelvis was performed without contrast. Solid organ, bowel a nd vascular assessment is limited due to lack of IV and oral contrast. All CT scans are performed using dose optimization technique as appropriate and may include automated exposure control or mA/KV adjustment according to patient size. FINDINGS: The lower lung de souza are clear.Aortic atherosclerosis. Cholecystectomy clips. No liver mass or biliary dilatation. The spleen, pancreas, adrenal glands are normal. Left kidney shows no hydronephrosis or mass. Cystic lesion involving the inferior right renal cortex with rim calcifications noted, measuring 26 x 24 mm, stable since prior studies. No bowel obstruction, free air, free fluid or abscess. Sigmoid diverticulosis coli without diverticul itis. The appendix is not identified as a discrete structure, however, no secondary findings of appen dicitis are identified. Mild lower lumbar spondylosis. IMPRESSION: No acute intra-abdominal or pelvic findings. A limited non-contrast examination was performed as detailed.
[2020-07-14 17:20] LABS: Urine Bacteria NONE SEEN /HPF (<20); Urine RBC <5 /HPF (NONE SEEN)
[2020-07-14 17:20] LABS: Urine Blood NEGATIVE (NEG); Urine Glucose NEGATIVE (NEG); Urine Protein NEGATIVE (NEG)
[2020-07-14 17:23] LABS: Basophils % 0.4 % (0-1.3); Hematocrit 38.8 % (36.0-45.0); Lymphocytes % 33.6 % (15.3-44.8); MPV 8.3 fL (7.6-11.3); RBC Red Blood Cell Count 3.98 M/uL (3.86-4.86)
[2020-07-14 17:41] LABS: ALT/SGPT 25 U/L (12-78); AST/SGOT 18 U/L (15-37); Albumin 3.7 g/dL (3.4-5.0); Alkaline Phosphatase 99 U/L (45-117); BUN Blood Urea Nitrogen 12 mg/dL (7-18); Bicarbonate 32 mmol/L (21-32); Bilirubin Direct 0.2 mg/dL (0-0.2); Bilirubin Total 0.6 mg/dL (0.2-1.0); Glucose Level 133 mg/dL (74-106); Lipase 111 U/L (73-393); Potassium 4.2 mmol/L (3.5-5.1); Protein, Total 7.3 g/dL (6.4-8.2); Sodium Level 139 mmol/L (136-145)
--- NOTE | 2020-07-14 17:58 | ER ---
Nurse's Notes [facility] Name: Radha Lara Age: 85 yrs Sex: Female : 1935 Arrival Date: 07/14/2020 Time: 14:41 Bed 19 Private MD: Elli Britt Diagnosis: Nausea;Weakness Presentation: 07/14 14:47 Chief complaint: Patient states: 3rd day of feeling sick, nauseated, dizzy and feel ca1 very weak, L Leg pain, and nasal congestion. Denies fever, cough, diarrhea. Coronavirus screen: Client denies travel out of the [place] in the last 14 days. congestion, fatigue, nausea, Client presents with at least one sign or symptom that may indicate coronavirus-19. Standard/surgical mask placed on the client. Provider contacted for isolation considerations. Ebola Screen: Patient negative for fever greater than or equal to 101.5 degrees Fahrenheit, and additional compatible Ebola Virus Disease symptoms Patient denies exposure to infectious person. Patient denies travel to an Ebola-affected area in the 21 days before illness onset. No symptoms or risks identified at this time. Initial Sepsis Screen: Does the patient meet any 2 criteria? No. Patient's initial sepsis screen is negative. Does the patient have a suspected source of infection? No. Patient's initial sepsis screen is negative. Risk Assessment: Do you want to hurt yourself or someone else? Patient reports no desire to harm self or others. Onset of symptoms was July 14, 2020. 14:47 Method Of Arrival: Wheelchair ca1 14:47 Acuity: YOLANDE 3 ca1 Triage Assessment: 14:55 The onset of the patients symptoms was more than six hours ago. The onset of the bp patients symptoms was. General: Appears in no apparent distress. uncomfortable, Behavior is cooperative, appropriate for age, anxious. Pain: Denies pain. EENT: No deficits noted. Neuro: Reports dizziness, weakness. Cardiovascular: No deficits noted. Respiratory: No deficits noted. GI: Reports nausea. : No signs and/or symptoms were reported regarding the genitourinary system. Derm: No deficits noted. Musculoskeletal: No deficits noted. Historical: - Allergies: 14:53 Aspirin; ca1 14:53 Clonidine; ca1 14:53 Codeine; ca1 14:53 Demerol; ca1 14:53 Ibuprofen; ca1 14:53 Iodinated Contrast Media - IV Dye; ca1 14:53 Lisinopril; ca1 14:53 Nitrofurantoin; ca1 14:53 nitrous oxide; ca1 14:53 vicoden; ca1 14:53 Zoloft; ca1 14:53 Niacin; ca1 - Home Meds: 14:53 amlodipine 10 mg tab once daily for Hypertension [Active]; carvedilol 12.5 mg Oral tab ca1 2 times per day [Active]; cranberry Oral twice a day [Active]; Crestor 40 mg Oral tab once daily [Active]; Eliquis 5 mg Oral tab 2 times per day [Active]; furosemide 40 mg Oral tab as needed [Active]; hydralazine 100 mg Oral tab 3 times per day [Active]; irbesartan 150 mg Oral tab 1 tab once daily [Active]; levothyroxine 75 mcg tab 1 tab once daily [Active]; magnesium oxide 500 mg Oral tab daily [Active]; metformin 500 mg Oral Tb24 1 tab 2 times per day [Active]; Multiple Vitamins Oral tab daily [Active]; omeprazole 40 mg Oral cpDR 1 cap once daily [Active]; pantoprazole 40 mg Oral tab 1 tab once daily [Active]; Plavix 75 mg Oral tab 1 tab once daily [Active]; Probiotic Oral daily [Active]; sodium chloride 1 gram Oral tab 5 times per day [Active]; Vimpat 50 mg Oral tab daily [Active]; Vitamin B-12 2,000 mcg Oral TbER daily [Active]; Vitamin D3 1,000 unit Oral chew daily [Active]; vitamin E Oral once daily [Active]; - PMHx: 14:53 acid reflux; ADD/ADHD; Atrial Fib; CVA; Diabetes - NIDDM; Hyperlipidemia; Hypertension; ca1 Kidney stones; PE; Sleep Apnea; TIA; UTI; - PSHx: 14:53 Tonsillectomy; Hysterectomy; Cholecystectomy; CABG; ca1 - Immunization history:: Adult Immunizations up to date, Pneumococcal vaccine is up to date, Flu vaccine is not up to date. - Social history:: Smoking status: Patient denies any tobacco usage or history of. - Family history:: not pertinent. - Hospitalizations: : No recent hospitalization is reported. Screenin:50 Abuse screen: Denies threats or abuse. Denies injuries from another. Nutritional bp screening: No deficits noted. Tuberculosis screening: No symptoms or risk factors identified. Fall Risk None identified. Assessment: 14:55 General: SEE TRIAGE NOTE. bp 16:31 Reassessment: PT RETURNED FROM CT. UNABLE TO OBTAIN PIV ACCESS OR BLOOD SPECIMEN, MX bp ATTEMPTS BY MX STAFF. AWARE. 17:30 Reassessment: Patient appears in no apparent distress at this time. Patient and/or bp family updated on plan of care and expected duration. Pain level reassessed. Patient is alert, oriented x 3, equal unlabored respirations, skin warm/dry/pink. VENOUS ACCESS ACHIEVED. IVF INFUSING. 18:24 Reassessment: PT D/C HOME VIA W/C WITH FAMILY, DX WITH NAUSEA AND VOMITING. bp Vital Signs: 14:47 BP 152 / 55; Pulse 77; Resp 16 S; Temp 97.6(TE); Pulse Ox 99% on R/A; Weight 54.43 kg ca1 (R); Height 5 ft. 2 in. (157.48 cm) (R); Pain 3/10; 16:30 BP 162 / 54; Pulse 66; Resp 16; Pulse Ox 99% ; bp 17:30 BP 174 / 66; Pulse 71; Resp 16; Pulse Ox 99% ; bp 18:24 BP 163 / 57; Pulse 72; Resp 16; Temp 97.8; Pulse Ox 98% ; bp 14:47 Body Mass Index 21.95 (54.43 kg, 157.48 cm) ca1 ED Course: 14:41 Patient arrived in ED. ag5 14:41 Elli Britt MD is Private Physician. ag5 14:50 Triage completed. ca1 14:50 Patient has correct armband on for positive identification. Bed in low position. Call bp light in reach. Side rails up X2. 14:53 Arm band placed on right wrist. ca1 14:58 Chris Hammond MD is Attending Physician. rn 15:39 Julian Castro, LAILA is Primary Nurse. bp 15:45 Initial lab(s) drawn, by me, sent to lab. COVID swab sent to lab. Flu and/or RSV swab ca1 sent to lab. Missed attempt(s): 20 gauge in right antecubital area. Bleeding controlled, band aid applied, catheter tip intact. 16:02 Missed attempt(s): 22 gauge in left forearm. Bleeding controlled, band aid applied, ca1 catheter tip intact. 17:13 Lab(s) recollected, by me, sent to lab. Inserted saline lock: 24 gauge in left iw antecubital area, using aseptic technique. Blood collected. 18:24 No provider procedures requiring assistance completed. IV discontinued, intact, bp bleeding controlled, No redness/swelling at site. Pressure dressing applied. Administered Medications: 17:12 Drug: NS 0.9% 500 ml Route: IV; Rate: bolus; Site: left antecubital; iw 18:24 Follow up: IV Status: Completed infusion; IV Intake: 500ml bp 18:24 Not Given (Patient Refused): Zofran (Ondansetron) 4 mg IVP once; over 2 minutes bp Intake: 18:24 IV: 500ml; Total: 500ml. bp Outcome: 17:57 Discharge ordered by . rn 18:24 Discharged to home via wheelchair, with family. bp 18:24 Condition: stable 18:24 Discharge instructions given to patient, Instructed on discharge instructions, follow up and referral plans. medication usage, Demonstrated understanding of instructions, follow-up care, medications, Prescriptions given X 1. 18:27 Patient left the ED. bp Signatures: Priti Crawford, RN RN Chris Hammond MD MD rn Peltier, Brian, RN RN bp Acob, Cheryl, RN RN ca1 Gaskin, Ajare ag5
--- NOTE | 2020-07-14 17:58 | EDPHYS ---
Physician Documentation [facility] Name: Radha Lara Age: 85 yrs Sex: Female : 1935 Arrival Date: 07/14/2020 Time: 14:41 Bed 19 Private MD: Elli Britt ED Physician Chris Hammond HPI: 07/14 15:22 This 85 yrs old Female presents to ER via Wheelchair with complaints of rn Weakness, Nausea, Decreased Appetite, Leg Pain. 15:23 The patient presents to the emergency department with weakness of the entire body, rn generalized weakness. 15:24 Onset: The symptoms/episode began/occurred 3 day(s) ago. Associated signs and symptoms: rn Pertinent positives: nausea, weakness, Pertinent negatives: chills, fever, neck stiffness, paresthesias, seizure, syncope, near-syncope, blurred vision, double vision, visual field changes, loss of vision. Severity of symptoms: At their worst the symptoms were mild in the emergency department the symptoms are unchanged. Current symptoms: Currently, the patient is not experiencing any symptoms. The patient has experienced similar episodes in the past. Reports generalized weakness, began 3 days ago, assoc with nausea and dizziness. No fever/chest pain/sob/abd pain. No diarrhea. Decreased appetite. . Historical: - Allergies: 14:53 Aspirin; ca1 14:53 Clonidine; ca1 14:53 Codeine; ca1 14:53 Demerol; ca1 14:53 Ibuprofen; ca1 14:53 Iodinated Contrast Media - IV Dye; ca1 14:53 Lisinopril; ca1 14:53 Nitrofurantoin; ca1 14:53 nitrous oxide; ca1 14:53 vicoden; ca1 14:53 Zoloft; ca1 14:53 Niacin; ca1 - Home Meds: 14:53 amlodipine 10 mg tab once daily for Hypertension [Active]; carvedilol 12.5 mg Oral tab ca1 2 times per day [Active]; cranberry Oral twice a day [Active]; Crestor 40 mg Oral tab once daily [Active]; Eliquis 5 mg Oral tab 2 times per day [Active]; furosemide 40 mg Oral tab as needed [Active]; hydralazine 100 mg Oral tab 3 times per day [Active]; irbesartan 150 mg Oral tab 1 tab once daily [Active]; levothyroxine 75 mcg tab 1 tab once daily [Active]; magnesium oxide 500 mg Oral tab daily [Active]; metformin 500 mg Oral Tb24 1 tab 2 times per day [Active]; Multiple Vitamins Oral tab daily [Active]; omeprazole 40 mg Oral cpDR 1 cap once daily [Active]; pantoprazole 40 mg Oral tab 1 tab once daily [Active]; Plavix 75 mg Oral tab 1 tab once daily [Active]; Probiotic Oral daily [Active]; sodium chloride 1 gram Oral tab 5 times per day [Active]; Vimpat 50 mg Oral tab daily [Active]; Vitamin B-12 2,000 mcg Oral TbER daily [Active]; Vitamin D3 1,000 unit Oral chew daily [Active]; vitamin E Oral once daily [Active]; - PMHx: 14:53 acid reflux; ADD/ADHD; Atrial Fib; CVA; Diabetes - NIDDM; Hyperlipidemia; Hypertension; ca1 Kidney stones; PE; Sleep Apnea; TIA; UTI; - PSHx: 14:53 Tonsillectomy; Hysterectomy; Cholecystectomy; CABG; ca1 - Immunization history:: Adult Immunizations up to date, Pneumococcal vaccine is up to date, Flu vaccine is not up to date. - Social history:: Smoking status: Patient denies any tobacco usage or history of. - Family history:: not pertinent. - Hospitalizations: : No recent hospitalization is reported. ROS: 15:24 Constitutional: Negative for fever, chills, and weight loss, Eyes: Negative for injury, rn pain, redness, and discharge, ENT: Negative for injury, pain, and discharge, Neck: Negative for injury, pain, and swelling, Cardiovascular: Negative for chest pain, palpitations, and edema, Respiratory: Negative for shortness of breath, cough, wheezing, and pleuritic chest pain, Abdomen/GI: Negative for abdominal pain, diarrhea, and constipation, Back: Negative for injury and pain, MS/Extremity: Negative for injury and deformity, Skin: Negative for injury, rash, and discoloration, Neuro: Negative for headache, numbness, tingling, and seizure. Exam: 15:24 Constitutional: This is a well developed, well nourished patient who is awake, alert, rn and in no acute distress. Head/Face: Normocephalic, atraumatic. ENT: MMM Cardiovascular: Regular rate and rhythm. No pulse deficits. Respiratory: No increased work of breathing, no retractions or nasal flaring. Abdomen/GI: soft, non-tender Skin: Warm, dry MS/ Extremity: Pulses equal, no cyanosis. Neuro: Awake and alert, GCS 15, oriented to person, place, time, and situation. Cranial nerves II-XII grossly intact. Motor strength 4/5 in all extremities. Sensory grossly intact. Cerebellar exam normal. Vital Signs: 14:47 BP 152 / 55; Pulse 77; Resp 16 S; Temp 97.6(TE); Pulse Ox 99% on R/A; Weight 54.43 kg ca1 (R); Height 5 ft. 2 in. (157.48 cm) (R); Pain 3/10; 16:30 BP 162 / 54; Pulse 66; Resp 16; Pulse Ox 99% ; bp 17:30 BP 174 / 66; Pulse 71; Resp 16; Pulse Ox 99% ; bp 18:24 BP 163 / 57; Pulse 72; Resp 16; Temp 97.8; Pulse Ox 98% ; bp 14:47 Body Mass Index 21.95 (54.43 kg, 157.48 cm) ca1 MDM: 14:58 Patient medically screened. rn 17:56 Data reviewed: vital signs, nurses notes, lab test result(s), EKG, radiologic studies, rn CT scan, and as a result, I will discharge patient. Counseling: I had a detailed discussion with the patient and/or guardian regarding: the historical points, exam findings, and any diagnostic results supporting the discharge/admit diagnosis, lab results, radiology results, the need for outpatient follow up, to return to the emergency department if symptoms worsen or persist or if there are any questions or concerns that arise at home. Response to treatment: the patient's symptoms have markedly improved after treatment, the patient's condition has returned to base line, the patient is now symptom free, and as a result, I will discharge patient. Special discussion: I discussed with the patient/guardian in detail that at this point there is no indication for admission to the hospital. It is understood, however, that if the symptoms persist or worsen the patient needs to return immediately for re-evaluation. 07/14 15: Order name: CBC with Diff rn 07/14 15: Order name: Basic Metabolic Panel rn 07/14 15: Order name: Hepatic Function rn 12/21 15:09 Order name: Lipase rn 07/14 15:09 Order name: Urine Microscopic Only rn 07/14 15:09 Order name: Flu rn 07/14 15:09 Order name: COVID-19 07/14 15:48 Order name: CORONAVIRUS EDWI 07/14 16:45 Order name: Influenza Screen (A ; Complete Time: 16:51 EDWI 07/14 16:50 Order name: SARS-COV-2 RT PCR; Complete Time: 16:51 EDWI 07/14 17:07 Order name: Urine Dipstick--Ancillary (enter results) 07/14 17:20 Order name: Urine Microscopic Only; Complete Time: 17:34 EDWI 07/14 17:20 Order name: Urine Dipstick-Ancillary; Complete Time: 17:34 EDWI 07/14 15:09 Order name: IV Start; Complete Time: 17:13 07/14 15:09 Order name: Labs collected and sent; Complete Time: 15:46 07/14 15:09 Order name: Urine Dipstick-Ancillary (obtain specimen); Complete Time: 17:15 07/14 15:09 Order name: EKG; Complete Time: 15:10 rn 07/14 15:09 Order name: EKG - Nurse/Tech; Complete Time: 15:46 rn 07/14 15:09 Order name: CT Head Brain wo Cont rn 07/14 15:23 Order name: CT Abd/Pelvis - Without Contrast 07/14 15:32 Order name: CT; Complete Time: 15:50 EDWI 07/14 15:58 Order name: Labs - recollect needed: recollect purple and green; Complete Time: 17:12 07/14 16:44 Order name: CT; Complete Time: 16:51 EDWI 07/14 17:25 Order name: CBC with Automated Diff; Complete Time: 17:34 EDWI 07/14 17:41 Order name: Basic Metabolic Panel; Complete Time: 17:51 EDWI 07/14 17:41 Order name: Liver (Hepatic) Function; Complete Time: 17:51 EDWI 07/14 17:41 Order name: Lipase; Complete Time: 17:51 EDMS Administered Medications: 17:12 Drug: NS 0.9% 500 ml Route: IV; Rate: bolus; Site: left antecubital; iw 18:24 Follow up: IV Status: Completed infusion; IV Intake: 500ml bp 18:24 Not Given (Patient Refused): Zofran (Ondansetron) 4 mg IVP once; over 2 minutes bp Disposition: 07/14/20 17:57 Discharged to Home. Impression: Nausea, Weakness. - Condition is Stable. - Discharge Instructions: Nausea, Adult, Weakness. - Prescriptions for Zofran ODT 4 mg Oral tablet,disintegrating - place 1 tablet by TRANSLINGUAL route every 8 hours As needed; 20 tablet. - Medication Reconciliation Form, Thank You Letter, Antibiotic Education, Prescription Opioid Use form. - Follow up: Private Physician; When: As needed; Reason: Recheck today's complaints, Re-evaluation by your physician. - Problem is new. - Symptoms have improved. Signatures: Dispatcher [employer] EDMS Priti Crawford RN LAILA iw Chris Hammond MD MD rn Peltier, Brian, RN RN bp Botello, Elizabeth Jeremy, LAILA Kebede RN ca1 Corrections: (The following items were deleted from the chart) 18:27 17:57 07/14/2020 17:57 Discharged to Home. Impression: Nausea; Weakness. Condition is bp Stable. Discharge Instructions: Nausea, Adult, Weakness. Prescriptions for Zofran ODT 4 mg Oral tablet,disintegrating - place 1 tablet by TRANSLINGUAL route every 8 hours As needed; 20 tablet. and Forms are Medication Reconciliation Form, Thank You Letter, Antibiotic Education, Prescription Opioid Use. Follow up: Private Physician; When: As needed; Reason: Recheck today's complaints, Re-evaluation by your physician. Problem is new. Symptoms have improved. rn
--- NOTE | 2020-07-15 12:42 | EKG ---
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
[2020-07-16 00:54] VITALS: BP 163/57; TEMP 97.8; O2SAT 98
== END 2020-07-14 18:27 | disposition home or self-care (01) ==
LOC: ER 14:39
DX: R11.0 Nausea (principal); Z20.828 Contact with and (suspected) exposure to other viral communicable diseases; I10 Essential (primary) hypertension; E11.9 Type 2 diabetes mellitus without complications; I48.91 Unspecified atrial fibrillation; E78.5 Hyperlipidemia, unspecified; Z79.01 Long term (current) use of anticoagulants; Z88.5 Allergy status to narcotic agent; Z88.6 Allergy status to analgesic agent; Z88.8 Allergy status to other drugs, medicaments and biological substances; Z95.1 Presence of aortocoronary bypass graft; Z91.041 Radiographic dye allergy status; Z91.048 Other nonmedicinal substance allergy status
CPT/HCPCS: 93005; 85025; 80048; 80076; 83690; 87804 ×2; 70450; 74176; 96360; 99284; U0003; J7040; 81003; 81015

== ENCOUNTER 2020-08-03 16:29 | Emergency (ER) | payer OTHER ==
--- OUTSIDE RECORDS SUMMARY | 2020-08-03 16:32 | XMS REPORT | Clinical Summary ---
:1935 Author Organization [facility] Address [address] [place] [address] Care Team Providers Name Role Phone Unavailable [...] 42-Bifid Take 1 tablet by 0 Active 4-rxlliz-COE (PROBIOTIC mouth daily. PLUS COLOSTRUM) 30-500-50 mg PwPk edgkznbx-cbo-lneqwfr Take 1 tablet by 0 Active fumarate [...] 65+ YRS (1 of 1 - 2001 [id number]) MEDICARE ANNUAL WELLNESS (YEAR 2 or FIRST 07/26/2019 YEAR if no IPPE) HEMOGLOBIN A1C 10/30/2019 04/30/2019, 11/20/2017 INFLUENZA VACCINE (#1) 2020 Results Not on fileafter 08/03/2019 Insurance Payer Benefit Plan / Subscriber ID Effective Dates Phone Addre ss Type Group [employer] HMO [id number] 2018-Emelyn Olivas Contracted ALL t Advance Directives For more information, please contact: [phone] Code Status Date Activated Date Inactivated Comments [...]
--- OUTSIDE RECORDS SUMMARY | 2020-08-03 16:33 | XMS REPORT ---
:1935 Author Organization [facility] Address [address] [place], [address] [place] [address] Care Team Providers Name Role Phone Britt Unavailable [phone] PROBLEMS Type Condition ICD9-CM [id number] Onset Condition SNOMED Code Notes Code Code Dates Status Problem Chronic a-fib I48.2 Active 59994346 Problem Obstructive sleep G47.33 Active 63888142 apnea Problem Overactive bladder N32.81 Active 257709178 Problem Obesity E66.9 Active 247314407 Problem GERD K21.9 Active 172275715 (gastroesophageal reflux disease) Problem Allergic rhinitis J30.9 Active 87751413 Problem Hypertension I10 Active 10029596 Problem Memory change R41.3 Active 19586673 Problem Stress at home F43.9 Active 124734557 Problem 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 Active 540300826 Problem Recurrent urinary N39.0 Active 077909283 tract infection Problem Hospital discharge Z09 Active 571052965 follow-up Problem History of TIA Z86.73 Active 990954337 (transient ischemic attack) Problem Other speech R47.89 Active 53814696 disturbance Problem Atherosclerosis I70.90 Active 67469032 Problem Chronic fatigue R53.82 Active 44406598 Problem 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 353495029133362 carotid artery Problem Mild depression F32.0 Active 315308412 Problem Elevated TSH R79.89 Active 346724128 Problem Other chronic pain G89.29 Active 54163032 Problem Mixed stress and N39.46 Active 356790608 urge urinary incontinence Problem Acquired E03.9 Active 415698996 hypothyroidism Problem Hyponatremia E87.1 Active 99852799 Problem Abnormal mammogram R92.8 Active 158723043 Problem Dysuria R30.0 Active 65808583 Problem Hyperlipidemia E78.5 Active 98426259 Problem Type 2 diabetes E11.9 Active 714166321 Problem Seizure disorder G40.909 Active 588082737 Problem Seasonal allergic J30.2 Active 202209909 rhinitis, unspecified trigger Problem 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 Active 640631696 multiple joints, unspecified osteoarthritis type Problem Gastroesophageal K21.9 Active 548323564 reflux disease, esophagitis presence not specified ALLERGIES Allergen (clinical drug Drug/Non Drug Reaction Allergy Type Onset D ate Status ingredient) Allergy documented on EMR Vicodin Unknown Drug Allergy Active aspirin Aspirin([facility] Unknown Drug Allergy Active Code:[address]-81) lisinopril Lisinopril([facility] Unknown Drug Allergy Active Code:[address]-43) Iodine contrast dye Unknown Non Drug Allergy Active clonidine CloNIDine([facility] Unknown Drug Allergy Active Code:[address]-70) Nitrous oxide Unknown Non Drug Allergy Activ e sertraline Zoloft([facility] Unknown Drug Allergy Active Code:[address]-53) nitrofurantoin Macrodantin([facility] Unknown Drug Allergy Act marty Code:[address]-64) codeine codeine Unknown Drug Allergy Active niacin Niacin([facility] Unknown Drug Allergy Active Code:[address]-49) ENCOUNTERS from 1935 to 2020-07-29 Encounter Location Date Provider Diagnosis [address], [place] [address] IMMUNIZATIONS Vaccine Route Administration Date Status Vitamin [...] Start Date End Date Status Frequency, Duration) Amlodipine Besylate 10 1 tablet Orally Active MG Once a day for 30 day(s) Sertraline HCl 25 MG 1 tablet Orally Not-Taking Once a day for 30 day(s) Methenamine Hippurate 1 1 tablet Orally Not-Taking GM Twice a day for 30 day(s) Magnesium 500 MG Orally Active Vitamin B-12 Not-Taking Crestor 40 MG 1 EACH ONCE A DAY Acti ve Metformin HCl 500 MG TAKE 1 TABLET BY Active MOUTH TWICE DAILY for 90 Rosuvastatin Calcium 40 TAKE 1 TABLET BY Active MOUTH DAILY for 90 Montelukast Sodium 10 1 tablet Orally Sep, Not-Taking MG Once a day for 90 days Trimethoprim 100 MG 1 tablet Orally Active Once a day for 90 Pantoprazole Sodium 40 1 tablet Orally Active MG Once a day for 90 Omeprazole 40 TAKE 1 CAPSULE BY Not- Taking MOUTH EVERY DAY for 90 Carvedilol 25 MG as directed Orally Active Sodium Chloride 1 GM 1 tablet Orally Oct, Active every 6 hours for 90 days Vitamin D3 1000 UNIT 1 capsule Orally Not-Taking Once a day Levetiracetam 250 MG 1 tablet Orally Not-Taking every 12 hrs Tylenol Arthritis Pain No t-Taking HydrALAZINE HCl 100 MG as directed Orally November, Not-Taking Three times a day Sodium Chloride 1000 MG 1 tablet Orally 5 Feb, Aug, Active times daily for 90 days HydrALAZINE HCl 100 MG 1 tablet with food Active Orally Three times a day Vitamin E 400 UNIT Orally Active Plavix 75 MG 1 tablet Orally Not-Seven ing Once a day Coreg 25 MG Orally Active Omeprazole 40 MG 1 EACH ONCE A DAY N ot-Taking orally daily in AM for 90 days Metformin HCl 500 TAKE 1 TABLET BY A ctive MOUTH TWICE DAILY for 90 Estradiol 0.1 MG/GM as directed Vaginal Jan, Not-Taking Two times a Week for 90 days Eliquis 5 MG 1 tablet Orally Active twice a day Multivitamin Active Irbesartan 150 MG 1 tablet Orally Ac tive Once a day for 30 day(s) Cyanocobalamin 1000 15 ml Orally Once a Not-Taking MCG/15ML day Probiotic - Orally Active Cranberry Concentrate 1 capsule with Active 425 MG meals Orally Rosuvastatin Calcium 40 TAKE 1 TABLET BY Active MG MOUTH DAILY for 90 Sodium Chloride 1 GM TAKE 2 TABLET in AM Active and 1 tab EVERY 6 HOURS Orally for 90 days Levothyroxine Sodium 1 tablet in the Active 125 MCG morning on an empty stomach Orally Once a day PROCEDURES No Information RESULTS No Results REASON FOR VISIT Covid exposed MEDICAL (GENERAL) HISTORY Type Description Date Medical [...] Information ASSESSMENTS No Information PLAN OF TREATMENT Next Appt Details Provider Name:Elli Britt, 2020-08-06 10:0 0:00 AM, [address] [facility], [address], [address], Provider Name:Adamaris Cifuentes, 10:15:00 AM, [address] [facility], [facility] [address], [place], [address], Insurance Providers Payer Name Payer Payer Insured Patient Coverage Coverage End Address Phone Name Relationship to Start Date Dwain e Insured [employer] [address] [address] [phone] Marco,Be self [address] [facility] [address] [id number]
--- OUTSIDE RECORDS SUMMARY | 2020-08-03 16:33 | XMS REPORT ---
:1935 Author Organization [facility] Address [address] [place], [address] [place] [address] Care Team Providers Name Role Phone Britt Unavailable [phone] PROBLEMS Type Condition ICD9-CM [id number] Onset Condition SNOMED Code Notes Code Code Dates Status Problem Chronic a-fib I48.2 Active 53941059 Problem Obstructive sleep G47.33 Active 38920784 apnea Problem Overactive bladder N32.81 Active 441059646 Problem Obesity E66.9 Active 437154118 Problem GERD K21.9 Active 688589885 (gastroesophageal reflux disease) Problem Allergic rhinitis J30.9 Active 77499771 Problem Hypertension I10 Active 44930813 Problem Memory change R41.3 Active 56640674 Problem Stress at home F43.9 Active 858038122 Problem 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 Active 417537546 Problem Recurrent urinary N39.0 Active 064586574 tract infection Problem Hospital discharge Z09 Active 547589440 follow-up Problem History of TIA Z86.73 Active 450079473 (transient ischemic attack) Problem Other speech R47.89 Active 44441570 disturbance Problem Atherosclerosis I70.90 Active 62603934 Problem Chronic fatigue R53.82 Active 87752595 Problem 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 597164537103585 carotid artery Problem Mild depression F32.0 Active 793892831 Problem Elevated TSH R79.89 Active 336587390 Problem Other chronic pain G89.29 Active 14249177 Problem Mixed stress and N39.46 Active 037810558 urge urinary incontinence Problem Acquired E03.9 Active 133776651 hypothyroidism Problem Hyponatremia E87.1 Active 84524672 Problem Abnormal mammogram R92.8 Active 155061714 Problem Dysuria R30.0 Active 28266176 Problem Hyperlipidemia E78.5 Active 39450019 Problem Type 2 diabetes E11.9 Active 711380817 Problem Seizure disorder G40.909 Active 019717364 Problem Seasonal allergic J30.2 Active 991097511 rhinitis, unspecified trigger Problem 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 Active 019299344 multiple joints, unspecified osteoarthritis type Problem Gastroesophageal K21.9 Active 524800603 reflux disease, esophagitis presence not specified ALLERGIES Allergen (clinical drug Drug/Non Drug Reaction Allergy Type Onset D ate Status ingredient) Allergy documented on EMR Vicodin Unknown Drug Allergy Active aspirin Aspirin([facility] Unknown Drug Allergy Active Code:[address]-46) lisinopril Lisinopril([facility] Unknown Drug Allergy Active Code:[address]-32) Iodine contrast dye Unknown Non Drug Allergy Active clonidine CloNIDine([facility] Unknown Drug Allergy Active Code:[address]-25) Nitrous oxide Unknown Non Drug Allergy Activ e sertraline Zoloft([facility] Unknown Drug Allergy Active Code:[address]-75) nitrofurantoin Macrodantin([facility] Unknown Drug Allergy Act marty Code:[address]-21) codeine codeine Unknown Drug Allergy Active niacin Niacin([facility] Unknown Drug Allergy Active Code:[address]-62) ENCOUNTERS from 1935 to 2020-07-30 Encounter Location Date Provider Diagnosis [address], [place] [address] IMMUNIZATIONS Vaccine Route Administration Date Status Vitamin [...] Status Frequency, Duration) Metformin HCl 500 MG TAKE 1 TABLET BY Active MOUTH TWICE DAILY for 90 Plavix 75 MG 1 tablet Orally Not-Seven ing Once a day Rosuvastatin Calcium 40 TAKE 1 TABLET BY Active MOUTH DAILY for 90 Amlodipine Besylate 10 1 tablet Orally Active MG Once a day for 30 day(s) Vitamin D3 1000 UNIT 1 capsule Orally Not-Taking Once a day Eliquis 5 MG 1 tablet Orally Active twice a day Sodium Chloride 1 GM TAKE 2 TABLET in AM Active and 1 tab EVERY 6 HOURS Orally for 90 days Montelukast Sodium 10 1 tablet Orally Sep, Not-Taking MG Once a day for 90 days Sertraline HCl 25 MG 1 tablet Orally Not-Taking Once a day for 30 day(s) Sodium Chloride 1000 MG 1 tablet Orally 5 Feb, Aug, Active times daily for 90 days Estradiol 0.1 MG/GM as directed Vaginal Jan, Not-Taking Two times a Week for 90 days Vitamin B-12 Not-Taking Levetiracetam 250 MG 1 tablet Orally Not-Taking every 12 hrs Omeprazole 40 TAKE 1 CAPSULE BY Not- Taking MOUTH EVERY DAY for 90 Rosuvastatin Calcium 40 TAKE 1 TABLET BY Active MG MOUTH DAILY for 90 Sodium Chloride 1 GM 1 tablet Orally Oct, Active every 6 hours for 90 days Methenamine Hippurate 1 1 tablet Orally Not-Taking GM Twice a day for 30 day(s) Carvedilol 25 MG as directed Orally Active Vitamin E 400 UNIT Orally Active Multivitamin Active HydrALAZINE HCl 100 MG as directed Orally November, Not-Taking Three times a day Coreg 25 MG Orally Active Bgjefmwu-Xqhfjeuuf-MB 4 drops into Jul, Active 3.5-44959-7 affected ear Otic Three times a day for 10 days Cyanocobalamin 1000 15 ml Orally Once a Not-Taking MCG/15ML day Magnesium 500 MG Orally Active HydrALAZINE HCl 100 MG 1 tablet with food Active Orally Three times a day Omeprazole 40 MG 1 EACH ONCE A DAY N ot-Taking orally daily in AM for 90 days Pantoprazole Sodium 40 1 tablet Orally Active MG Once a day for 90 Tylenol Arthritis Pain No t-Taking Irbesartan 150 MG 1 tablet Orally Ac tive Once a day for 30 day(s) Probiotic - Orally Active Metformin HCl 500 TAKE 1 TABLET BY A ctive MOUTH TWICE DAILY for 90 Cranberry Concentrate 1 capsule with Active 425 MG meals Orally Trimethoprim 100 MG 1 tablet Orally Active Once a day for 90 Levothyroxine Sodium 1 tablet in the Active 125 MCG morning on an empty stomach Orally Once a day Crestor 40 MG 1 EACH ONCE A DAY Acti ve PROCEDURES No Information RESULTS No Results REASON FOR VISIT ear pain MEDICAL (GENERAL) HISTORY Type Description Date Medical [...] Medication Name Sig Start Date Stop Date Tbeqwfvk-Cxxsdtlbv-FT 4 drops into affected ear Otic Jul, 3.5-00422-0 Three times a day for 10 days Next Appt Details Provider Name:Elli Britt, 2020-08-06 10:0 0:00 AM, [address] [facility] [address], [place], [address], Provider Name:Adamaris Cifuentes, 10:15:00 AM, [address] [facility], [facility] [address], [place], [address], Insurance Providers Payer Name Payer Payer Insured Patient Coverage Coverage End Address Phone Name Relationship to Start Date Dwain e Insured [facility] [address] [address] [phone] Rodri Lara self [address] [facility] [address] [place] [id number]
--- OUTSIDE RECORDS SUMMARY | 2020-08-03 16:33 | XMS REPORT | Continuity of Care Document ---
:1935 Author Organization [facility] t Address 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-14 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 00:00: Practic 00 e [...] Active vomiting [facility] to -28 [facility] - Contrast adverse 00:00: Medical Media reaction 00 [place] s iodine DA Active [facility] 8-04 Clear 00:00: [place] [facility] codeine DA Active U [facility] 8-04 Clear 00:00: [place] [facility] aspirin DA Active U [facility] 8-04 Clear 00:00: [place] [facility] ASPIRIN DA Active U [facility] 7 Clear 00:00: [facility] CITRUS DA Active U [facility] FRUITS 7- Clear 00:: [facility] CODEINE DA Active U [facility] 7 Clear 00:: [facility] IVP DYE DA Active U [facility] 02-20 Clear 00:00: [facility] POLLEN DA Active U [facility] 02-20 Clear 00:00: [facility] TOMATOE DA Active U [facility] 02-20 Clear 00:00: [facility] Aspirin Allergy Active Mild to Tachycardia Vi [...] contrast Reaction Available Cristian es - dye [facility] Vicodin Adverse Active Info Not [facility] Reaction Available [facility] Niacin Adverse Active Info Not [facility] Reaction Available [facility] Clinics Social History Social Habit Start Date Stop Date Quantity Comments Source Sex Assigned At [facility] Tobacco use and 2019-04-30 2019-04-30 Never used [facility] - exposure 00:00:00 00:00:00 [facility] Smoking Status Start Date Stop Date Source Never smoker [facility] Medications Ordered Filled Start Stop Current Ordering Indication Dosage Frequency Signature Comments Components Source Medication Medication Date Date Medication? Clinician (SIG) Name Name Sodium Sodium 2020- No Na Britt [address] Chloride Chloride 8-17 02-12 [facility] - 00:00: 00:00 Memoria 00 :00 [facility] ent [facility] Yes Na Britt [address] [facility] Sodium Sodium 3-20 [facility] - 00:00: Memoria 00 [facility] carvedilol 2018-07 Yes 25mg Take [address] (COREG) 25 0-08 by mouth 2 Cristian es - MG tablet 16:46: (two) Medical 41 times Center daily with breakfast and dinner. rosuvastati 2018-07 Yes 40mg QD Take [address] [facility] n (CRESTOR) 0-08 by mouth Luke s - 40 MG 16:46: daily. Medical tablet 41 [place] apixaban 2018-07 Yes 5mg Q.5D Take [address] (ELIQUIS) 5 0-08 by mouth 2 Cyndi kes - mg Tab 16:46: (two) Medical tablet 41 times Center daily. hydrALAZINE 2018-07 Yes 100mg [id number] Take [address] [facility] (APRESOLINE 0-08 [id number] mg by L ukes - ) 100 MG 16:46: 3D mouth 3 Medica l tablet 41 (three) Center times daily. magnesium 2018-07 Yes 500mg QD Take [address] gluconate 0-08 mg by [facility]ukes - (MAGONATE) 16:46: mouth Medica l 27.5 mg 41 daily . Center (500 mg) tablet metFORMIN 2018-07 Yes 500mg Take [address] [facility] (GLUCOPHAGE 0-08 mg by [facility] - ) 500 MG 16:46: mouth 2 Medica l tablet 41 (two) Center times daily with breakfast and dinner. omeprazole 2018-07 Yes 40mg QD Take [address] (PRILOSEC) 0-08 by mouth [facility] - 40 MG 16:46: daily. Medical capsule 41 [place] valsartan 2018-07 Yes 160mg QD Take [address] (DIOVAN) 0-08 mg by [facility] - 160 MG 16:46: mouth Medical tablet 41 daily. Center verapamil 2018-07 Yes 240mg QD Take [address] (VERELAN 0-08 mg by [facility] - PM) 240 MG 16:46: mouth Medica l 24 hr 41 nightly. [place] capsule cyanocobala 2018-07 Yes 1000ug QD Take 1,[address] [facility] min 0-08 mcg by [facility]ukes - (VITAMIN 16:46: mouth Medical B-12) 1000 41 daily. [place] MCG tablet cholecalcif 2018-07 Yes 1000U QD Take 1,[address] roly, 0-08 Units by [facility] - vitamin D3, 16:46: mouth Medic al 1,000 unit 41 daily. [place] capsule clopidogrel 2018-07 Yes 75mg QD Take [address] [facility] (PLAVIX) 75 0-08 by mouth Luke s - mg tablet 16:46: daily. Medica l 41 [place] sertraline 2018-07 Yes 25mg QD Take [address] (ZOLOFT) 25 0-08 by mouth Luke s - MG tablet 16:46: daily. Medica l 41 [place] cranberry 2018-07 Yes 4200mg Q.5D Take 4,[address] conc-ascorb 0-08 mg by [facility] - ic acid 16:46: mouth 2 Medical (CRANBERRY 41 (two) Center CONCENTRATE times ) 140-100 daily. mg Cap Lactobac 2018-07 Yes 1{tbl} QD Take 1 [facility] 42-Bifid 0-08 tablet by [facility] - 8-colost-FO 16:46: mouth Medic al S 41 daily. [place] (PROBIOTIC PLUS COLOSTRUM) 30-500-50 mg PwPk multivit-mi 2018-07 Yes 1{tbl} QD Take [address] n-ferrous 0-08 tablet by [facility] - fumarate 16:46: mouth Medical (MULTI 41 daily. [place] VITAMIN) 9 mg iron/15 mL Liqd irbesartan Yes 150mg QD Take [address] (AVAPRO) 7-28 mg by [facility] - 150 MG 00:00: mouth Medical tablet 00 daily. [place] amLODIPine Yes 10mg QD Take [address] (NORVASC) 7-28 by mouth [facility] - 10 MG 00:00: daily. Medical tablet 00 [place] Estradiol Estradiol Yes Na Britt as [facility] 7-22 directed [facility] - 00:00: Memoria 00 l Outpati ent Clinics HydrALAZINE HydrALAZINE Yes Na Britt [address] [facility] HCl HCl 5-14 with food [facility] - 00:00: Memoria 00 l Outpati ent Clinics amlodipine amlodipine No 1 Q1D amlodipine [facility] 5 mg tablet 5 mg tablet 5 mg F amily Take 1 Take 1 tablet Practic tablet tablet Take 1 e every day every day tablet by oral by oral every day route. route. by oral route. carvedilol carvedilol No 1 BID carvedilol [facility] 25 mg 25 mg 25 mg Family tablet Take tablet Take tablet Practic 1 tablet 1 tablet Take 1 e twice a day twice a day tablet by oral by oral twice a route. route. day by oral route. clopidogrel clopidogrel No 1 Q1D clopidogre [facility] 75 mg 75 mg l [...] Eliquis 5 No 1 BID Eliquis 5 [facility] mg tablet mg tablet mg tablet Family Take 1 Take 1 Take 1 Practic tablet tablet tablet e twice a day twice a day twice a by oral by oral day by route. route. oral route. hydralazine hydralazine No 1 TID hydralazin [facility] 100 mg 100 mg e 100 mg Family tablet Take tablet Take tablet Practic 1 tablet 3 1 tablet 3 Take 1 e times a day times a day tablet 3 by oral by oral times a route. route. day by oral route. irbesartan irbesartan No 1 Q1D irbesartan [facility] 150 mg 150 mg 150 mg Family tablet Take tablet Take tablet Practic 1 tablet 1 tablet Take 1 e every day every day tablet by oral by oral every day route. route. by oral route. metformin metformin No 1 BID metformin [facility] 500 mg 500 mg 500 mg Family tablet Take tablet Take tablet Practic 1 tablet 1 tablet Take 1 e twice a day twice a day tablet by oral by oral twice a route. route. day by oral route. omeprazole omeprazole No 1capsul Q1D omeprazole [facility] 40 mg 40 mg e(s) [...] Cyndi kes - Pain Pain Memoria l Outpati ent Clinics Methenamine Methenamine Yes Na Britt [address] [facility] Hippurate Hippurate [facility] Irbesartan Irbesartan Yes Na Britt [address] [facility] Vitamin Vitamin Yes Na Britt not [facility] B-12 B-12 defined [facility] Crestor Crestor Yes Na Britt [address] [facility] ONCE A DAY [facility] Metformin Metformin Yes Na Britt [address] [facility] HCl HCl with meals [facility] Vitamin E Vitamin E Yes Na Britt not [facility] defined [facility] Omeprazole Omeprazole Yes Na Britt TAKE [address] [facility] CAPSULE BY [facility]ukes - MOUTH Memoria EVERY DAY l Outpati ent Clinics Amlodipine Amlodipine Yes Na Britt [address] [facility] Besylate Besylate [facility] Eliquis Eliquis Yes Na Britt [address] [facility] Multivitami Multivitami Yes Na Britt not [facility] n n defined [facility] Probiotic Probiotic Yes Na Britt not [facility] defined [facility] Trimethopri Trimethopri Yes Na Britt [address] [facility] m m [facility] Magnesium Magnesium Yes Na Britt not [facility] defined [facility] Levetiracet Levetiracet Yes Na Britt [address] [facility] am am [facility] Coreg Coreg Yes Na Britt not [facility] defined [facility] Metformin Metformin Yes Na Britt TAKE [address] [facility] HCl HCl TABLET BY [facility] - MOUTH Memoria TWICE l DAILY Outpati ent Clinics Rosuvastati Rosuvastati Yes Na Britt TAKE [address] [facility] n Calcium n Calcium TABLET BY [facility] - MOUTH Memoria DAILY l [facility] Sertraline Sertraline Yes Na Britt [address] HCl HCl [facility] Vitamin D3 Vitamin D3 Yes Na Britt [address] [facility] Cyanocobala Cyanocobala Yes Na Britt [address] min min [facility] Omeprazole Omeprazole Yes Na Britt [address] ONCE A DAY [facility] Plavix Plavix Yes Na Britt [address] [facility] Carvedilol Carvedilol Yes Na Britt as [facility] directed [facility] Levothyroxi Levothyroxi Yes Na Britt [address] [facility] ne Sodium ne Sodium in the Cristian es - morning on Memoria an empty l stomach [facility] Sodium Sodium Yes Na Britt TAKE [address] [facility] Chloride Chloride TABLET in Cyndi kes - AM and 1 Memoria tab EVERY l 6 HOURS [facility] Cranberry Cranberry Yes Na Britt [address] Concentrate Concentrate with meals [facility] Vital Signs Vital Name Observation Time Observation Value Comments Source Height 2020-02-19 00:00:00 62 [in_i] [facility] Height 2019-10-16 00:00:00 62 [in_i] [facility] BMI (Body Mass 2019-10-16 00:00:00 23.8 kg/m2 [facility] Family Index) Practice Body Weight 2019-10-16 00:00:00 130 [lb_av] [facility] Procedures This patient has no known procedures. Plan of Care Planned Activity Planned Date Details Comments Source Future Scheduled Test 2020-03-[address] [facility] - 00:00:00 (#1) [code = Medical Center INFLUENZA VACCINE (#1)] Future Scheduled Test 2019-10-[address] [facility] - 00:00:00 measurement Medical Center (procedure) [code = 63033985] Future Scheduled Test 2019-07-[address] [facility] - 00:00:00 WELLNESS (YEAR 2 or Medical Center FIRST YEAR if no IPPE) [code = MEDICARE ANNUAL WELLNESS (YEAR 2 or FIRST YEAR if no IPPE)] Future Scheduled Test 2001 PNEUMOCOCCAL 65+ YRS [facility] - 00:00:00 (1 of 1 - Medical Center [id number]) [code = PNEUMOCOCCAL 65+ YRS (1 of 1 - [id number] PCV13)] Future Scheduled Test 1946 DIABETIC EYE EXAM [facility] - 00:00:00 [code = DIABETIC EYE Medical Center EXAM] Future Scheduled Test 1946 [facility] examination Medical Center (regime/therapy) [code = 913069826] Future Scheduled Test 1946 Urine screening for [facility] - 00:00:00 protein (procedure) Medical Center [code = 934833438] Future Appointment 2020-08-24 Belle Reese Garcia kimani Family 00:00:00 [address]; [address], [place] [address] Encounters Start End Encounter Admission Attending Care Care Encounter Source Date/Time Date/Time Type Type Clinicians Facility Department ID 2020-07-30 2020-07-30 [facility] [id number] [facility] 2020-07-29 2020-07-29 [facility] [id number] [facility] 2020-07-28 2020-07-28 [facility] [id number] [facility] 2020-06-17 2020-06-17 Outpatient [facility] [id number] [facility] 2020-05-22 2020-05-22 Outpatient [facility] [id number] [facility] 2020-04-23 2020-04-23 Outpatient [facility] [id number] [facility] 2020-04-16 2020-04-16 [facility] [id number] [facility] 2020-03-26 2020-03-26 [facility] [id number] 11:20:00 11:20:00 t [employer] [facility] Outpati ent Clinics 2020-03-07 2020-03-07 [facility] [id number] 14:44:00 14:44:00 t [employer] [facility] Outpati ent Clinics 2020-03-05 2020-03-05 [facility] [id number] 11:00:00 11:00:00 t Specialty/U Cyndi kes - Specialty rology Memori a /Urology Clinic l Clinic Outpati ent Clinics 2020-03-03 2020-03-03 [facility] [id number] 12:39:00 12:39:00 t [employer] [facility] Outpati ent Clinics 2020-03-03 2020-03-03 [facility] [id number] 12:15:00 12:15:00 t [employer] [facility] Outpati ent Clinics 2020-02-19 2020-02-19 Belle [facility] [place] - [id number] V illage 00:00:00 00:00:00 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 2020-01-18 2020-01-18 [facility] [id number] 10:39:00 10:39:00 t [employer] [facility] Outpati ent Clinics 2020-01-17 2020-01-17 [facility] [id number] 10:40:00 10:40:00 t [employer] [facility] Outpati ent Clinics 2020-01-01 2020-01-01 [facility] [id number] 13:55:00 13:55:00 t [employer] s - Drive [facility] Family Medicine l Medicine Outpati ent Clinics 2019-12-20 2019-12-20 [facility] [id number] 09:43:00 09:43:00 t [employer] s - Drive [facility] l Medicine Outpati ent Clinics 2019-12-18 2019-12-18 [facility] [id number] 11:20:00 11:20:00 t [employer] s - Drive [facility] Medicine l Medicine Outpati ent Clinics 2019-12-04 2019-12-04 [facility] [id number] 10:00:00 10:00:00 t Specialty/U Cyndi kes - Specialty rology Memori a /Urology Clinic l Clinic Outpati ent Clinics 2019-12-03 2019-12-03 [facility] [id number] 11:31:00 11:31:00 t [employer] s - Drive [facility] Medicine l Medicine Outpati ent Clinics 2019-11-26 2019-11-26 [facility] [id number] 08:43:00 08:43:00 t [employer] s - [employer] [facility] Medicine l Medicine Outpati ent Clinics 2019-11-16 2019-11-16 [facility] [id number] 08:35:00 08:35:00 t Specialty/U Cyndi kes - Specialty rology Memori a /Urology Clinic l Clinic Outpati ent Clinics 2019-11-10 2019-11-10 [facility] [id number] 14:05:00 14:05:00 t [facility] [employer] s - Road [facility] Medicine l Medicine Outpati ent Clinics 2019-10-17 2019-10-17 [facility] [id number] 14:55:00 14:55:00 t [employer] s [employer] Drive [facility] Medicine l Medicine Outpati ent Clinics 2019-10-16 2019-10-16 Belle [facility] [place] - [id number] V illage 00:00:00 00:00:00 [facility], INDUSTRIAL TECHNICIAN: Arlet max [address] [email or web address] e [facility], [address], [place] [address] , Ph. 2019-10-12 2019-10-12 [facility] [id number] 15:58:00 15:58:00 t [employer] [facility] Medicine Medicine Outpati ent Clinics 2019-10-01 2019-10-01 [facility] [id number] 15:42:00 15:42:00 t [employer] [facility] Medicine l Medicine Outpati ent Clinics 2019-09-25 2019-09-25 [facility] [id number] 11:20:00 11:20:00 t [employer] [facility] Medicine l Medicine Outpati ent Clinics 2019-09-18 2019-09-18 [facility] [id number] 11:15:00 11:15:00 t Specialty/U Cyndi kes - Specialty rology Memori a /Urology Clinic l Clinic Outpati ent Clinics 2019-09-14 2019-09-14 [facility] [id number] 11:32:00 11:32:00 t [employer] [facility] Medicine l Medicine Outpati ent Clinics 2019-09-04 2019-09-04 [facility] [id number] 11:20:00 11:20:00 t [employer] [facility] Medicine Medicine Outpati ent Clinics 2019-09-04 2019-09-04 [facility] [id number] 10:00:00 10:00:00 t Specialty/U Cyndi kes - Specialty rology Memori a /Urology Clinic l Clinic Outpati ent Clinics 2019-08-08 2019-08-08 [facility] [id number] 10:40:00 10:40:00 t [employer] [facility] Medicine l Medicine Outpati ent Clinics 2019-08-02 2019-08-02 [facility] [id number] 13:00:00 13:00:00 t Specialty/U Cyndi kes - Specialty rology Memori a /Urology Clinic l Clinic Outpati ent Clinics 2019-07-09 2019-07-09 [facility] [id number] 14:00:00 14:00:00 t [employer] [facility] Medicine Outpati ent Clinics 2019-05-29 2019-05-29 [facility] [id number] 11:20:00 11:20:00 t [employer] [facility] Medicine Outpati ent Clinics 2019-05-15 2019-05-15 [facility] [id number] 10:15:00 10:15:00 t Specialty/U Cyndi kes - Specialty rology Memori a /Urology Clinic l Clinic Outpati ent Clinics 2019-04-24 2019-04-24 [facility] [id number] 10:40:00 10:40:00 t [employer] [facility] Outpati ent Clinics 2019-04-09 2019-04-09 [facility] [id number] 13:20:00 13:20:00 t [employer] [facility] Outpati ent Clinics 2019-03-24 2019-03-24 [facility] [id number] 12:00:00 12:00:00 t Urgent Ur[facility] L ukes - Care Clinic [facility] Clinic l Outpati ent Clinics 2019-03-15 2019-03-15 [facility] [id number] 13:22:00 13:22:00 t Urgent Urgent Care L [facility] 2019-03-13 2019-03-13 [facility] [id number] 10:39:00 10:39:00 t [employer] [facility] Medicine Outpati ent Clinics 2019-03-12 2019-03-12 [facility] [id number] 10:30:00 10:30:00 t Urgent Urgent Care L ukes - Care Clinic [facility] Clinic l Outpati ent Clinics 2019-02-28 2019-02-28 [facility] [id number] 13:00:00 13:00:[address] Luke s - Drive [facility] Medicine Medicine Outpati ent Clinics 2019-02-12 2019-02-12 [facility] [id number] 10:15:00 10:15:00 t Specialty/U Cyndi kes - [facility] l Clinic Outpati ent Clinics 2019-02-08 2019-02-08 [facility] [id number] 15:00:00 15:00:00 t Walters [employer] Luke s - Drive [facility] Medicine l Medicine Outpati ent Clinics 2019-02-08 2019-02-08 [facility] [id number] 08:42:00 08:42:00 t Walters [employer] Luke s - Drive [facility] l Medicine Outpati ent Clinics 2019-02-06 2019-02-06 [facility] [id number] 09:40:00 09:40:[address] Luke s - Drive [facility] Medicine Outpati ent Clinics 2019-01-09 2019-01-09 [facility] [id number] 10:40:00 10:40:00 t Walters [employer] Luke s - Drive [facility] l Medicine Outpati ent Clinics 2019-01-03 2019-01-03 [facility] [id number] 13:07:00 13:07:00 t Walters [employer] Luke s - Drive [facility] l Medicine Outpati ent Clinics 2018-12-28 2018-12-28 [facility] [id number] 14:00:00 14:00:[address] Luke s - Drive [facility] Medicine Outpati ent Clinics 2018-09-14 2018-09-14 [facility] [id number] 09:26:00 09:26:[address] Luke s - Drive [facility] l Medicine Outpati ent Clinics 2018-09-08 2018-09-08 [facility] [id number] 09:30:00 09:30:00 t Walters [employer] Luke s [facility] ent [facility] 2018-08-07 2018-08-07 Outpatient Jeff Aguilart [id number] 08:45:00 08:45:00 [facility] 2018-02-20 2018-02-20 Outpatient Jeff Aguilart [id number] 14:30:00 14:30:00 [facility] randal [facility] 2018-02-03 2018-02-03 [place] [facility] [place] [id number] 09:00:00 09:00:00 [facility] Results Test Description Test Time Test Comments Results Result Sour e Comments CT, CTANGIO BRAIN 2019-05-01 Reason for FINAL REPORT PATIENT 10:58:00 exam:->stroke ID: [id number] CLINICAL HISTORY: TIA TECHNIQUE: Initially, noncontrast head [...] intact. There is no evidence for a chev[place] of [place] proximal branch vessel occlusion. Mild [...] artery stenosis, unchanged. No evidence for a chevak of [place] proximal branch vessel occlusion. Signed: Alexa Bolden MDReport Verified Date/Time: 05/01/2019 10:58:29 Reading Location: [facility] Neuro Reading Room , CAROTID, ANGIO 2019-05-01 Reason for FINAL REPORT PATIENT 10:58:00 exam:->eval ID: [id number] for TIA CLINICAL HISTORY: TIA TECHNIQUE: Initially, [...] intact. There is no evidence for a chev[place] of [place] proximal branch vessel occlusion. Mild [...] artery stenosis, unchanged. No evidence for a chevak of [place] proximal branch vessel occlusion. Signed: Alexa Bolden MDReport Verified Date/Time: 05/01/2019 10:58:29 Reading Location: [facility] Neuro Reading Room C METABOLIC PANEL 2019-05-01 [...] NOT 1092) ACCURATE CRE ATININE CLEARANCE IN DC EDICTING GLOMERULAR FILT RATION RATE. ESTIMATED GFR [...] 0-0 (BEAKER) (test code = 413) TROPONIN [id number] 20:18:00 Test Item Value Reference Range Interpretation [...] neurological disease, and persistent tachyarrhythmia.MR, BRAIN, WITHOUT [id number] 19:07:00Reason for exam:->Ischemic Stroke EvaluationFINAL REPORT MR, [...] None. IMPRESSION: No acute infarct Signed: Brenden Hernandezeport Verified Date/Time: 04/30/2019 19:07:03 Reading Location: [address] Neuro Reading Room HEMOGLOBIN [id number] 10:33:00 Test Item Value Reference Range Interpretation Comments HEMOGLOBIN A1C (BEAKER) (test code = 6.6 % 4.3-6.1 H 368) FastingVITAMIN [id number] 09:00:00 Test Item Value Reference Range Interpretation [...] NOT APPLICABLE FOR DIALYSIS PATIEN TS. FastingLIPID [id number] 07:30:00 Test Item Value Reference Range Interpretation [...] 130-159 High 160-189 Very High >=190 FastingTROPONIN [id number] 07:28:00 Test Item Value Reference Range Interpretation [...] and persistent tachyarrhythmia.FastingCBC W/PLT COUNT & AUTO [id number] 05:43:00 Test Item Value Reference Range Interpretation [...] (BEAKER) (test code = 2801) NV, ANGIOGRAM, [id number] 11:37:00Reason for exam:->TIAsFINAL REPORT November 22, 2017 [...] guidance and strict sterile technique a 4 Andorran femoral sheath was inserted into the right common femoral artery. Through the sheath a 4 Andorran vertebral catheter was then advanced over the [...] demonstrates a critical supraclinoid ICA stenosis of odsbgawcwcxki76%. There is delayed antegrade flow. The venous [...] Verified Date/Time: 11/22/2017 11:37:47 Reading Location: [facility] Y018 Neuro Angio Reading Room POCT- GLUCOSE [id number] 07:43:00 Test Item Value Reference Range Interpretation Comments POC-GLUCOSE METER 149 mg/dL 70-[address] [facility] 6720 (BEAKER) (test code = ISA Norman [place] 1538) [address] [id number] 06:46:00 Test Item Value Reference Range Interpretation Comments MAGNESIUM (BEAKER) (test code = 2.0 mg/dL 1.6-2.6 627) BASIC METABOLIC [id number] 06:46:00 Test Item Value Reference Range Interpretation [...] S NOT APPLICABLE FOR DIALYSIS PATIEN TS. [id number] 06:33:00 Test Item Value Reference Range Interpretation Comments PROTIME ([facility]) (test code = 15.5 seconds 11.7-14.7 H 759) INR ([facility]) (test code = 370) 1.2 <=5.9 PARTIAL THROMBOPLASTIN TIME 35.9 seconds 22.5-36.0 ([facility]) (test code = 760) RECOMMENDED COUMADIN/WARFARIN INR THERAPY RANGESSTANDARD DOSE: 2.0 - 3.0 Includes: PROPHYLAXIS forvenous thrombosis, systemic embolization; TREATMENT for venous thrombosis and/or pulmonary embolus.HIGH RISK: Target INR is 2.5-3.5 for patients with mechanical heart valves.POCT-GLUCOSE [id number] 06:22:00 Test Item Value Reference Range Interpretation Comments POC-GLUCOSE METER 161 mg/dL 70-110 H TESTED AT [place] [address] ([facility]) (test code = ISA Norman [facility] 1538) [address] POCT-GLUCOSE [id number] 02:08:00 Test Item Value Reference Range Interpretation Comments POC-GLUCOSE METER 182 mg/dL 70-[address] [facility] [address] ([facility]) (test code = ISA Norman [facility] 1538) [address] POCT-GLUCOSE [id number] 19:30:00 Test Item Value Reference Range Interpretation Comments POC-GLUCOSE METER 146 mg/dL 70-110 H TESTED AT [place] [address] ([facility]) (test code = ISA Norman [facility] 1538) [address] CT, CAROTID, [id number] 14:54:00Please include aortaFINAL REPORT CT angiogram of [...] the left ICA terminus. There is also toil-mg-cskpxeer multifocal narrowing of the right carotid siphon. [...] Mcdanielsort Verified Date/Time: 11/21/2017 14:54:26 Reading Location: [facility] Radiology Reading Room H MEJIA [id number] 14:54:00FINAL REPORT CT angiogram of the upper [...] the left ICA terminus. There is also lkks-ng-umsxjqwh multifocal narrowing of the right carotid siphon. [...] [facility] POCT-GLUCOSE [id number] 11:50:00 Test Item Value Reference Range Interpretation Comments POC-GLUCOSE METER 153 mg/dL 70-110 H TESTED AT [place] [address] ([facility]) (test code = [facility] 1538) [address] POCT-GLUCOSE [id number] 08:08:00 Test Item Value Reference Range Interpretation Comments POC-GLUCOSE METER 125 mg/dL 70-110 H TESTED AT [place] [address] ([facility]) (test code = [facility] 1538) [address] [id number] 06:43:00 Test Item Value Reference Range Interpretation Comments MAGNESIUM (BEAKER) (test code = 2.1 mg/dL 1.6-2.6 627) BASIC METABOLIC [id number] 06:43:00 Test Item Value Reference Range Interpretation [...] FOR DIALYSIS PATIEN TS. TSH/FREE T4 IF [id number] 22:12:00 Test Item Value Reference Range Interpretation Comments THYROID STIMULATING HORMONE 4.66 uIU/mL 0.35-4.94 (BEAKER) (test code = 772) [id number] 21:54:00 Test Item Value Reference Range Interpretation Comments MAGNESIUM (BEAKER) (test code = 2.0 mg/dL 1.6-2.6 627) BASIC METABOLIC [id number] 21:54:00 Test Item Value Reference Range Interpretation [...] NOT APPLICABLE FOR DIALYSIS PATIEN TS. LIPID [id number] 21:54:00 Test Item Value Reference Range Interpretation Comments TRIGLYCERIDES ([facility]) (test code = 70 mg/dL 540) CHOLESTEROL ([facility]) (test code = 101 mg/dL 631) HDL CHOLESTEROL ([facility]) (test code 39 mg/dL = 976) LDL CHOLESTEROL CALCULATED ([facility]) 48 mg/dL (test code = 633) Triglyceride Reference Range: Low Risk <150 Borderline 150-199 High Risk 200-499 Very High Risk >=500Cholesterol Reference Range: Low Risk <200 Borderline 200-239 High Risk >240HDL Cholesterol Reference Range: Low Risk >=60 High Risk <40LDL Cholesterol Reference Range: Optimal <100 Near Optimal 100-129 Borderline 130-159 High 160-189 Very High >=190POCT-GLUCOSE [id number] 21:35:00 Test Item Value Reference Range Interpretation Comments POC-GLUCOSE METER 128 mg/dL 70-110 H TESTED AT [place] [address] ([facility]) (test code = [facility] [employer] [facility] 1538) [address] POCT-GLUCOSE [id number] 17:55:00 Test Item Value Reference Range Interpretation Comments POC-GLUCOSE METER 113 mg/dL 70-110 H TESTED AT [place] [address] ([facility]) (test code = [facility] [employer] [facility] 1538) [address] POCT-GLUCOSE [id number] 12:32:00 Test Item Value Reference Range Interpretation Comments POC-GLUCOSE METER 120 mg/dL 70-110 H TESTED AT [place] [address] ([facility]) (test code = [facility] [employer] [facility] 1538) [address] MR, MRA, BRAIN, WITHOUT [id number] 11:33:00Reason for exam:->Ischemic Stroke EvaluationFINAL REPORT MRA Head and Neck CLINICAL HISTORY: CVA TECHNIQUE: MRA of the head utilizing 3-D ezxg-yr-jemvbe technique, with 3-D reconstructions. MRA of the neck utilizing 2-D and 3-D phkz-tc-vevune technique, with 3-D reconstructions. COMPARISON: None FINDINGS: [...] There is no other evidence for a chevak of Lawson proximal branch vessel occlusion. There [...] MDReport Verified Date/Time: 11/20/2017 11:33:14 Reading Location: [address] Neuro Reading Room MR, MRA, NECK, WITHOUT IV [id number] 11:33:00Reason for exam:->Ischemic Stroke EvaluationFINAL REPORT MRA Head and Neck CLINICAL HISTORY: CVA TECHNIQUE: MRA of the head utilizing 3-D rcvi-pi-legjpf technique, with 3-D reconstructions. MRA of the neck utilizing 2- D and 3-D tabh-ce-brhpzz technique, with 3-D reconstructions. COMPARISON: None FINDINGS: [...] There is no other evidence for a chevak of Lawson proximal branch vessel occlusion. There [...] Bolden Verified Date/Time: 11/20/2017 11:33:14 Reading Location: [address] Neuro Reading Room MR, BRAIN, WITHOUT [id number] 11:05:00Reason for exam:->Ischemic Stroke EvaluationFINAL REPORT MRI [...] MDRjoy Verified Date/Time: 11/20/2017 11:05:05 Reading Location: [address] Neuro Reading Room HEMOGLOBIN [id number] 09:08:00 Test Item Value Reference Range Interpretation Comments HEMOGLOBIN A1C (BEAKER) (test code = 6.1 % 4.3-6.1 368) POCT-GLUCOSE [id number] 08:27:00 Test Item Value Reference Range Interpretation Comments POC-GLUCOSE METER 125 mg/dL 70-[address] [facility] 67[address] (BEAKER) (test code = ISA [place] 1538) [address] TSH/FREE T4 IF [id number] 07:47:00 Test Item Value Reference Range Interpretation Comments THYROID STIMULATING HORMONE 5.97 uIU/mL 0.35-4.94 H (BEAKER) (test code = 772) VITAMIN [id number] 07:44:00 Test Item Value Reference Range Interpretation Comments VITAMIN B12 (BEAKER) (test code = 857 pg/mL 213-816 H 774) CBC W/PLT COUNT & AUTO [id number] 06:47:00 Test Item Value Reference Range Interpretation [...] PERCENT (BEAKER) (test code = 2801) POCT-GLUCOSE [id number] 22:09:00 Test Item Value Reference Range Interpretation Comments POC-GLUCOSE METER 130 mg/dL 70-[address] [facility] 6764 (BEAKER) (test code = ISA [place] 1538) [address]
--- OUTSIDE RECORDS SUMMARY | 2020-08-03 16:33 | XMS REPORT ---
:1935 Author Organization [facility] Address [address] [place], [address] [place] [address] Care Team Providers Name Role Phone Britt Unavailable [phone] PROBLEMS Type Condition ICD9-CM [id number] Onset Condition SNOMED Code Notes Code Code Dates Status Problem Chronic a-fib I48.2 Active 42895447 Problem Obstructive sleep G47.33 Active 23268645 apnea Problem Overactive bladder N32.81 Active 693158033 Problem Obesity E66.9 Active 508325797 Problem GERD K21.9 Active 983631518 (gastroesophageal reflux disease) Problem Allergic rhinitis J30.9 Active 04858713 Problem Hypertension I10 Active 61501801 Problem Memory change R41.3 Active 18111193 Problem Stress at home F43.9 Active 483931196 Problem 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 Active 914424950 Problem Recurrent urinary N39.0 Active 875557084 tract infection Problem Hospital discharge Z09 Active 712213501 follow-up Problem History of TIA Z86.73 Active 081803026 (transient ischemic attack) Problem Other speech R47.89 Active 40547409 disturbance Problem Atherosclerosis I70.90 Active 81894787 Problem Chronic fatigue R53.82 Active 66861739 Problem 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 580456925347435 carotid artery Problem Mild depression F32.0 Active 168170604 Problem Elevated TSH R79.89 Active 553220135 Problem Other chronic pain G89.29 Active 86103903 Problem Mixed stress and N39.46 Active 223602612 urge urinary incontinence Problem Acquired E03.9 Active 520629659 hypothyroidism Problem Hyponatremia E87.1 Active 00439342 Problem Abnormal mammogram R92.8 Active 288903772 Problem Dysuria R30.0 Active 24416438 Problem Hyperlipidemia E78.5 Active 54482223 Problem Type 2 diabetes E11.9 Active 192828627 Problem Seizure disorder G40.909 Active 894212124 Problem Seasonal allergic J30.2 Active 711579877 rhinitis, unspecified trigger Problem 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 Active 690711227 multiple joints, unspecified osteoarthritis type Problem Gastroesophageal K21.9 Active 340358321 reflux disease, esophagitis presence not specified ALLERGIES Allergen (clinical drug Drug/Non Drug Reaction Allergy Type Onset D ate Status ingredient) Allergy documented on EMR Vicodin Unknown Drug Allergy Active aspirin Aspirin([facility] Unknown Drug Allergy Active Code:[address]-61) lisinopril Lisinopril([facility] Unknown Drug Allergy Active Code:[address]-52) Iodine contrast dye Unknown Non Drug Allergy Active clonidine CloNIDine([facility] Unknown Drug Allergy Active Code:[address]-86) Nitrous oxide Unknown Non Drug Allergy Activ e sertraline Zoloft([facility] Unknown Drug Allergy Active Code:[address]-19) nitrofurantoin Macrodantin([facility] Unknown Drug Allergy Act marty Code:[address]-17) codeine codeine Unknown Drug Allergy Active niacin Niacin([facility] Unknown Drug Allergy Active Code:[address]-45) ENCOUNTERS from 1935 to 2020-07-31 Encounter Location Date Provider Diagnosis [address], [place] [address] IMMUNIZATIONS Vaccine Route Administration Date Status Vitamin [...] a day Coreg 25 MG Orally Active Qvdqvcwy-Nxvzoocwj-QQ 4 drops into Jul, Active 3.5-42182-1 affected ear Otic Three times a day [...] Information RESULTS No Results REASON FOR VISIT Need covid testing - NEGATIVE MEDICAL (GENERAL) HISTORY Type Description Date Medical [...] Medication Name Sig Start Date Stop Date Ubtrtjxq-Bfegpehjq-TW 4 drops into affected ear Otic Jul, 3.5-57285-1 Three times a day for 10 days Next Appt Details Provider Name:Elli Britt, 2020-08-06 10:0 0:00 AM, [address] , [facility] [address], [address], Provider Name:Adamaris Cifuentes, 10:15:00 AM, [address] [facility], [facility] [address], [place], [address], Insurance Providers Payer Name Payer Payer Insured Patient Coverage Coverage End Address Phone Name Relationship to Start Date Dwain e Insured [facility] [address] [address] [phone] Rodri Lara self [address] [employer] [facility] [address] [address]
[2020-08-03] MEDS ORDERED: LORAZEPAM 0.5 MG TABLET ONE (17:41)
[2020-08-03] MEDS ORDERED: DIPHENHYDRAMINE 50 MG/ML VIAL ONE (17:41)
--- NOTE | 2020-08-03 18:48 | ER ---
Nurse's Notes [facility] Name: Radha Lara Age: 85 yrs Sex: Female : 1935 Arrival Date: 08/03/2020 Time: 16:31 Bed 4 Private MD: Elli Britt Diagnosis: Anxiety disorder, unspecified;Nausea Presentation: 08/03 16:47 Chief complaint: Patient states: Dizzy, weak, ill, nausea, loss of appetite, bodyaches ca1 x 3 days. Denies vomiting, diarrhea, fever. Ear pain on both sided but I have always had that and I am taking drops for it. Coronavirus screen: Client denies travel out of the [place] in the last 14 days. fatigue, muscle pain, nausea, Client presents with at least one sign or symptom that may indicate coronavirus-19. Standard/surgical mask placed on the client. Provider contacted for isolation considerations. Ebola Screen: Patient negative for fever greater than or equal to 101.5 degrees Fahrenheit, and additional compatible Ebola Virus Disease symptoms Patient denies exposure to infectious person. Patient denies travel to an Ebola-affected area in the 21 days before illness onset. No symptoms or risks identified at this time. Initial Sepsis Screen: Does the patient meet any 2 criteria? No. Patient's initial sepsis screen is negative. Does the patient have a suspected source of infection? No. Patient's initial sepsis screen is negative. Risk Assessment: Do you want to hurt yourself or someone else? Patient reports no desire to harm self or others. Onset of symptoms was August 03, 2020. 16:47 Method Of Arrival: Wheelchair ca1 16:47 Acuity: YOLANDE 3 ca1 Historical: - Allergies: 16:53 Aspirin; ca1 16:53 Clonidine; ca1 16:53 Codeine; ca1 16:53 Demerol; ca1 16:53 Ibuprofen; ca1 16:53 Iodinated Contrast Media - IV Dye; ca1 16:53 Lisinopril; ca1 16:53 Niacin; ca1 16:53 Nitrofurantoin; ca1 16:53 nitrous oxide; ca1 16:53 vicoden; ca1 16:53 Zoloft; ca1 - Home Meds: 17:00 amlodipine 10 mg tab once daily for Hypertension [Active]; carvedilol 12.5 mg Oral tab ca1 2 times per day [Active]; cranberry Oral twice a day [Active]; Crestor 40 mg Oral tab once daily [Active]; Eliquis 5 mg Oral tab 2 times per day [Active]; furosemide 40 mg/5 mL (8 mg/mL) oral soln [Active]; hydralazine 100 mg Oral tab 3 times per day [Active]; irbesartan 150 mg Oral tab 1 tab once daily [Active]; levothyroxine 75 mcg tab 1 tab once daily [Active]; magnesium oxide 500 mg Oral tab daily [Active]; metformin 500 mg Oral Tb24 1 tab 2 times per day [Active]; Multiple Vitamins Oral tab daily [Active]; omeprazole 40 mg Oral cpDR 1 cap once daily [Active]; pantoprazole 40 mg Oral tab 1 tab once daily [Active]; Plavix 75 mg Oral tab 1 tab once daily [Active]; Probiotic Oral daily [Active]; sodium chloride 1 gram Oral tab 5 times per day [Active]; Vimpat 50 mg Oral tab daily [Active]; Vitamin B-12 2,000 mcg Oral TbER daily [Active]; Vitamin D3 1,000 unit Oral chew daily [Active]; vitamin E Oral once daily [Active]; - PMHx: 16:55 acid reflux; ADD/ADHD; Atrial Fib; CVA; Diabetes - NIDDM; Hyperlipidemia; Hypertension; ca1 Kidney stones; PE; Sleep Apnea; TIA; UTI; - PSHx: 16:55 Tonsillectomy; Hysterectomy; Cholecystectomy; CABG; ca1 - Immunization history:: Adult Immunizations up to date, Pneumococcal vaccine is up to date, Flu vaccine is not up to date. - Social history:: Smoking status: Patient denies any tobacco usage or history of. Screenin:15 Abuse screen: Denies threats or abuse. Denies injuries from another. Nutritional jl7 screening: No deficits noted. Tuberculosis screening: No symptoms or risk factors identified. Fall Risk None identified. Assessment: 17:15 General: Appears in no apparent distress. uncomfortable, Behavior is calm, cooperative, jl7 appropriate for age. Pain: Complains of pain in right ear and left ear. Neuro: Level of Consciousness is awake, alert, obeys commands, Oriented to person, place, time, situation. Cardiovascular: Patient's skin is warm and dry. Respiratory: Airway is patent Respiratory effort is even, unlabored, Respiratory pattern is regular, symmetrical. EENT: Reports pain. Derm: Skin is pink, warm \T\ dry. 19:26 Reassessment: Patient and/or family updated on plan of care and expected duration. Pain ea level reassessed. Patient is alert, oriented x 3, equal unlabored respirations, skin warm/dry/pink. Discharge instruction given to patient, verbalized the understanding of instruction. Pt left ED via wheelchair tolerating well. Vital Signs: 16:47 BP 187 / 65; Pulse 85; Resp 17 S; Temp 97.9(TE); Pulse Ox 97% on R/A; Weight 54.43 kg ca1 (R); Height 5 ft. 4 in. (162.56 cm) (R); 17:47 BP 169 / 61; Pulse 70; Resp 17; Pulse Ox 99% ; jl7 16:47 Body Mass Index 20.60 (54.43 kg, 162.56 cm) ca1 ED Course: 16:31 Patient arrived in ED. ag5 16:32 Elli Britt MD is Private Physician. ag5 16:44 [facility]C [facility] snw 16:44 Chris Hammond MD is Attending Physician. snw 16:47 Arm band placed on right wrist. ca1 16:49 Triage completed. ca1 17:15 Patient has correct armband on for positive identification. Placed in gown. Bed in low jl7 position. Call light in reach. Side rails up X2. Pulse ox on. NIBP on. 17:27 Vicente Villatoro, LAILA is Primary Nurse. jl7 18:46 Elli Britt MD is Referral Physician. snw 19:27 No provider procedures requiring assistance completed. Patient did not have IV access ea during this emergency room visit. Administered Medications: 17:30 Drug: Ativan 0.5 mg Route: PO; jl7 19:28 Follow up: Response: No adverse reaction ea 17:30 Drug: Phenergan 12.5 mg Route: IM; Site: right deltoid; jl7 19:28 Follow up: Response: No adverse reaction ea Outcome: 18:47 Discharge ordered by . snw 19:27 Discharged to home via wheelchair, with family. ea 19:27 Condition: stable 19:27 Discharge instructions given to patient, Instructed on discharge instructions, follow up and referral plans. medication usage, Demonstrated understanding of instructions, follow-up care, medications, Prescriptions given X 1. 19:27 Patient left the ED. ea Signatures: Bessie Menezes, SERVICE RIG OPERATOR-C SERVICE RIG OPERATOR-Csnw Vicente Villatoro, RN RN jl7 Shilpa Brewer RN Yandy Woodruff ea RN RN ca1 Brooks Camara5
--- NOTE | 2020-08-03 18:48 | EDPHYS ---
Physician Documentation [facility] Name: Radha Lara Age: 85 yrs Sex: Female : 1935 Arrival Date: 08/03/2020 Time: 16:31 Bed 4 Private MD: Elli Britt ED Physician Chris Hammond HPI: 08/03 16:54 This 85 yrs old Female presents to ER via Wheelchair with complaints of Ear snw Pain, Decreased Appetite, Nausea, Neck Pain, <24hrs Old. 16:54 The patient presents with pain. The complaints affect the right ear and left ear. snw Onset: The symptoms/episode began/occurred gradually. Associated signs and symptoms: Pertinent positives: nausea. The patient has experienced similar episodes in the past, chronically. The patient has been recently seen by a physician: The patient has been recently seen at the [facility] Emergency Department, a couple of weeks ago, for similar complaints was given a prescription for an antiemetic. Historical: - Allergies: 16:53 Aspirin; ca1 16:53 Clonidine; ca1 16:53 Codeine; ca1 16:53 Demerol; ca1 16:53 Ibuprofen; ca1 16:53 Iodinated Contrast Media - IV Dye; ca1 16:53 Lisinopril; ca1 16:53 Niacin; ca1 16:53 Nitrofurantoin; ca1 16:53 nitrous oxide; ca1 16:53 vicoden; ca1 16:53 Zoloft; ca1 - Home Meds: 17:00 amlodipine 10 mg tab once daily for Hypertension [Active]; carvedilol 12.5 mg Oral tab ca1 2 times per day [Active]; cranberry Oral twice a day [Active]; Crestor 40 mg Oral tab once daily [Active]; Eliquis 5 mg Oral tab 2 times per day [Active]; furosemide 40 mg/5 mL (8 mg/mL) oral soln [Active]; hydralazine 100 mg Oral tab 3 times per day [Active]; irbesartan 150 mg Oral tab 1 tab once daily [Active]; levothyroxine 75 mcg tab 1 tab once daily [Active]; magnesium oxide 500 mg Oral tab daily [Active]; metformin 500 mg Oral Tb24 1 tab 2 times per day [Active]; Multiple Vitamins Oral tab daily [Active]; omeprazole 40 mg Oral cpDR 1 cap once daily [Active]; pantoprazole 40 mg Oral tab 1 tab once daily [Active]; Plavix 75 mg Oral tab 1 tab once daily [Active]; Probiotic Oral daily [Active]; sodium chloride 1 gram Oral tab 5 times per day [Active]; Vimpat 50 mg Oral tab daily [Active]; Vitamin B-12 2,000 mcg Oral TbER daily [Active]; Vitamin D3 1,000 unit Oral chew daily [Active]; vitamin E Oral once daily [Active]; - PMHx: 16:55 acid reflux; ADD/ADHD; Atrial Fib; CVA; Diabetes - NIDDM; Hyperlipidemia; Hypertension; ca1 Kidney stones; PE; Sleep Apnea; TIA; UTI; - PSHx: 16:55 Tonsillectomy; Hysterectomy; Cholecystectomy; CABG; ca1 - Immunization history:: Adult Immunizations up to date, Pneumococcal vaccine is up to date, Flu vaccine is not up to date. - Social history:: Smoking status: Patient denies any tobacco usage or history of. ROS: 16:52 Eyes: Negative for injury, pain, redness, and discharge, ENT: Negative for injury and snw discharge, ear pain of lengthy duration - using drops presently Neck: Negative for injury, pain, and swelling, Cardiovascular: Negative for chest pain, palpitations, and edema, Respiratory: Negative for shortness of breath, cough, wheezing, and pleuritic chest pain, Back: Negative for injury and pain, : Negative for injury, bleeding, discharge, and swelling, MS/Extremity: Negative for injury and deformity, Skin: Negative for injury, rash, and discoloration, Neuro: Negative for headache, weakness, numbness, tingling, and seizure, Psych: Negative for depression, anxiety, suicide ideation, homicidal ideation, and hallucinations. 16:52 Constitutional: Positive for body aches, malaise, poor PO intake. 16:52 Abdomen/GI: Positive for nausea. Exam: 16:52 Head/Face: Normocephalic, atraumatic. Eyes: Pupils equal round and reactive to light, snw extra-ocular motions intact. Lids and lashes normal. Conjunctiva and sclera are non-icteric and not injected. Cornea within normal limits. Periorbital areas with no swelling, redness, or edema. ENT: Nares patent. No nasal discharge, no septal abnormalities noted. Tympanic membranes are normal and external auditory canals are clear. Oropharynx with no redness, swelling, or masses, exudates, or evidence of obstruction, uvula midline. Mucous membranes moist. Neck: Trachea midline, no thyromegaly or masses palpated, and no cervical lymphadenopathy. Supple, full range of motion without nuchal rigidity, or vertebral point tenderness. No Meningismus. Chest/axilla: Normal chest wall appearance and motion. Nontender with no deformity. No lesions are appreciated. Cardiovascular: Regular rate and rhythm with a normal S1 and S2. No gallops, murmurs, or rubs. Normal PMI, no JVD. No pulse deficits. Respiratory: Lungs have equal breath sounds bilaterally, clear to auscultation and percussion. No rales, rhonchi or wheezes noted. No increased work of breathing, no retractions or nasal flaring. Abdomen/GI: Soft, non-tender, with normal bowel sounds. No distension or tympany. No guarding or rebound. No evidence of tenderness throughout. Back: No spinal tenderness. No costovertebral tenderness. Full range of motion. Skin: Warm, dry with normal turgor. Normal color with no rashes, no lesions, and no evidence of cellulitis. MS/ Extremity: Pulses equal, no cyanosis. Neurovascular intact. Full, normal range of motion. Neuro: Awake and alert, GCS 15, oriented to person, place, time, and situation. Cranial nerves II-XII grossly intact. Motor strength 5/5 in all extremities. Sensory grossly intact. Cerebellar exam normal. Normal gait. 16:52 Constitutional: The patient appears alert, awake, anxious, frail. Vital Signs: 16:47 BP 187 / 65; Pulse 85; Resp 17 S; Temp 97.9(TE); Pulse Ox 97% on R/A; Weight 54.43 kg ca1 (R); Height 5 ft. 4 in. (162.56 cm) (R); 17:47 BP 169 / 61; Pulse 70; Resp 17; Pulse Ox 99% ; jl7 16:47 Body Mass Index 20.60 (54.43 kg, 162.56 cm) ca1 MDM: 16:49 Patient medically screened. snw 18:47 Data reviewed: vital signs, nurses notes. Data interpreted: Pulse oximetry: on room air snw is 99 %. Interpretation: normal. Counseling: I had a detailed discussion with the patient and/or guardian regarding: the historical points, exam findings, and any diagnostic results supporting the discharge/admit diagnosis, the presence of at least one elevated blood pressure reading (>120/80) during this emergency department visit, the need for outpatient follow up, for definitive care, to return to the emergency department if symptoms worsen or persist or if there are any questions or concerns that arise at home. Special discussion: I have referred the patient to see his PCP for further evaluation of high blood pressure. Based on the history and exam findings, there is no indication for further emergent testing or inpatient evaluation. I discussed with the patient/guardian the need to see the primary care provider for further evaluation of the symptoms. 08/03 18:10 Order name: Orthostatics; Complete Time: 18:39 ca1 Administered Medications: 17:30 Drug: Ativan 0.5 mg Route: PO; jl7 19:28 Follow up: Response: No adverse reaction ea 17:30 Drug: Phenergan 12.5 mg Route: IM; Site: right deltoid; jl7 19:28 Follow up: Response: No adverse reaction ea Disposition: 08/03/20 18:47 Discharged to Home. Impression: Anxiety disorder, unspecified, Nausea. - Condition is Stable. - Discharge Instructions: Nausea, Adult, Generalized Anxiety Disorder. - Prescriptions for promethazine 25 mg Oral Tablet - take 1 tablet by ORAL route every 12 hours As needed; 10 tablet. - Medication Reconciliation Form, Thank You Letter, Antibiotic Education, Prescription Opioid Use form. - Follow up: Elli Britt MD; When: 1 - 2 days; Reason: Recheck today's complaints, Continuance of care, Re-evaluation by your physician. Follow up: Emergency Department; When: As needed; Reason: Worsening of condition. Addendum: 08/06/2020 07:11 Co-signature as Attending Physician, Chris Hammond MD. r n Signatures: Bessie Menezes, VISUAL SPECIALIST-C VISUAL SPECIALIST-[place] Chris Hammond MD MD rn Leal, Jahala RN RN jl7 Shilpa Brewer RN Yandy Woodruff ea RN RN ca1 Corrections: (The following items were deleted from the chart) 08/03 19:27 18:47 08/03/2020 18:47 Discharged to Home. Impression: Anxiety disorder, unspecified; ea Nausea. Condition is Stable. Forms are Medication Reconciliation Form, Thank You Letter, Antibiotic Education, Prescription Opioid Use. Follow up: Elli Britt; When: 1 - 2 days; Reason: Recheck today's complaints, Continuance of care, Re-evaluation by your physician. Follow up: Emergency Department; When: As needed; Reason: Worsening of condition. angela
[2020-08-03 19:33] VITALS: BP 169/61; O2SAT 99
[2020-08-03 19:34] VITALS: TEMP 97.9
== END 2020-08-03 19:27 | disposition home or self-care (01) ==
LOC: ER 16:29
DX: F41.9 Anxiety disorder, unspecified (principal); I10 Essential (primary) hypertension; E11.9 Type 2 diabetes mellitus without complications; E78.5 Hyperlipidemia, unspecified; I48.91 Unspecified atrial fibrillation; Z79.01 Long term (current) use of anticoagulants; Z88.5 Allergy status to narcotic agent; Z88.6 Allergy status to analgesic agent; Z88.8 Allergy status to other drugs, medicaments and biological substances; Z95.1 Presence of aortocoronary bypass graft; Z91.041 Radiographic dye allergy status
CPT/HCPCS: 96372; 99283; J1200

== ENCOUNTER 2020-08-24 17:37 | Emergency (ER) | payer OTHER ==
--- OUTSIDE RECORDS SUMMARY | 2020-08-24 17:40 | XMS REPORT | Clinical Summary ---
:1935 Author Organization [facility] Address [address] [place] [address] Care Team Providers Name Role Phone Unavailable [...] 42-Bifid Take 1 tablet by 0 Active [id number] (PROBIOTIC mouth daily. PLUS COLOSTRUM) 30-500-50 mg PwPk [id number] Take 1 tablet by 0 Active fumarate [...] 65+ YRS (1 of 1 - 2001 [id number]) MEDICARE ANNUAL WELLNESS (YEAR 2 or FIRST 07/26/2019 YEAR if no IPPE) HEMOGLOBIN A1C 10/30/2019 04/30/2019, 11/20/2017 INFLUENZA VACCINE (#1) 2020 Results Not on fileafter 08/24/2019 Insurance Payer Benefit Plan / Subscriber ID Effective Dates Phone Addre ss Type Group [employer] [id number] 2018-Emelyn Olivas Contracted ALL t Advance Directives For more information, please contact: [phone] Code Status Date Activated Date Inactivated Comments [...]
--- OUTSIDE RECORDS SUMMARY | 2020-08-24 17:41 | XMS REPORT | Continuity of Care Document ---
:1935 Author Organization [facility] t Address [address] [place] [address] Care Team Providers Name Role Phone MIR [...] 00 e Essential Essential Problem Active [place] hypertensi Hypertensi 6-17 Fa castro on on [...] Contrast adverse 00:00: Medical Media reaction 00 [place] [facility] iodine DA Active [facility] 8-04 Clear 00:00: [facility] codeine DA Active U [facility] 8-04 Clear 00:00: [place] aspirin DA Active U [facility] 8-04 Clear 00:00: [place] ASPIRIN DA Active U [facility] 7 Clear 00:00: [facility] CITRUS DA Active U [facility] FRUITS 7- Clear 00:: [facility] CODEINE DA Active [facility] 7 Clear 00:: [facility] IVP DYE DA Active U [facility] 02-20 Clear 00:00: [facility] POLLEN DA Active U [facility] 02-20 Clear 00:00: [facility] TOMATOE DA Active U [facility] 02-20 Clear 00:00: [facility] Aspirin Allergy Active Mild to Tachycardia [...] Active Info Not [facility] Reaction Available [facility] Macrodan Adverse Active Info Not [facility] tin Reaction Available [facility] Lisinopr Adverse Active Info Not [facility] il Reaction Available [facility] Aspirin Adverse Active Info Not [facility] Reaction Available [facility] Nitrous Adverse Active Info Not [facility] oxide Reaction Available [facility] Iodine Adverse Active Info Not [facility] contrast Reaction Available Cristian es - dye [facility] Vicodin Adverse Active Info Not [facility] Reaction Available [facility] Niacin Adverse Active Info Not [facility] Reaction Available [facility] Social History Social Habit Start Date Stop Date Quantity Comments Source Sex Assigned At [facility] Tobacco use and 2019-04-30 2019-04-30 Never used [facility] - exposure 00:00:00 00:00:00 [facility] Smoking Status Start Date Stop Date Source Never smoker [facility] Medications Ordered Filled Start Stop Current Ordering Indication Dosage Frequency Signature Comments Components Source Medication Medication Date Date Medication? Clinician (SIG) Name Name Sodium Sodium 2020- No Na Britt [address] Chloride Chloride 8-17 02-12 [facility] 00:[facility]: [facility]:00 [facility] 00 :00 [facility] Yes Na Britt [address] [facility] Sodium Sodium 3-20 [facility] - 00:00: Memoria 00 [facility] carvedilol 2018-07 Yes 25mg Take [address] (COREG) 25 0-08 by mouth 2 Cristian es - MG tablet 16:46: (two) Medical 41 times Center daily with breakfast and dinner. rosuvastati 2018-07 Yes 40mg QD Take [address] [facility] n (CRESTOR) 0-08 by mouth Luke s - 40 MG 16:46: daily. Medical tablet 41 [place] apixaban 2018-07 Yes 5mg Q.5D Take [address] [facility] (ELIQUIS) 5 0-08 by mouth 2 Cyndi kes - mg Tab 16:46: (two) Medical tablet 41 times Center daily. hydrALAZINE 2018-07 Yes 100mg [id number] Take [address] [facility] (APRESOLINE 0-08 [id number] mg by L ukes - ) 100 [...] 40 MG 16:46: daily. Medical capsule 41 [place] valsartan 2018-07 Yes 160mg QD Take [address] (DIOVAN) 0-08 mg by [facility] - 160 MG 16:46: mouth Medical tablet 41 daily. Center verapamil 2018-07 Yes 240mg QD Take [address] [facility] [address] (VERELAN 0-08 mg by [facility] - PM) 240 MG 16:46: mouth Medica l 24 hr 41 nightly. [place] capsule cyanocobala 2018-07 Yes 1000ug QD Take 1,[address] [facility] [facility] min 0-08 mcg by [facility]ukes - (VITAMIN 16:46: mouth Medical B-12) 1000 41 daily. [place] MCG tablet cholecalcif 2018-07 Yes 1000U QD Take 1,[address] roly, 0-08 Units by [facility] - vitamin D3, 16:46: mouth Medic al 1,000 unit 41 daily. [place] capsule clopidogrel 2018-07 Yes 75mg QD Take [address] [facility] (PLAVIX) 75 0-08 by mouth Luke s - mg tablet 16:46: daily. Medica l 41 [place] sertraline 2018-07 Yes 25mg QD Take [address] (ZOLOFT) 25 0-08 by mouth Luke s - MG tablet 16:46: daily. Medica l 41 [place] cranberry 2018-07 Yes 4200mg Q.5D Take 4,[address] conc-ascorb 0-08 mg by [facility] - ic acid 16:46: mouth 2 Medical (CRANBERRY 41 (two) Center CONCENTRATE times ) 140-100 daily. mg Cap Lactobac 2018-07 Yes 1{tbl} QD Take 1 [facility] 42-Bifid 0-08 tablet by [facility] - 8-colost-FO 16:46: mouth Medic al S 41 daily. [place] (PROBIOTIC PLUS COLOSTRUM) 30-500-50 mg PwPk multivit-mi 2018-07 Yes 1{tbl} QD Take [address] n-ferrous 0-08 tablet by [facility] - fumarate 16:46: mouth Medical (MULTI 41 daily. [place] VITAMIN) 9 mg iron/15 mL Liqd irbesartan Yes 150mg QD Take [address] (AVAPRO) 7-28 mg by [facility] - 150 MG 00:00: mouth Medical tablet 00 daily. [place] amLODIPine Yes 10mg QD Take [address] (NORVASC) 7-28 by mouth [facility] - 10 MG 00:00: daily. Medical tablet 00 [place] Estradiol Estradiol Yes Na Britt as [facility] 7-22 directed [facility] - 00:[facility]: [facility] 00 l Outpati ent Clinics HydrALAZINE HydrALAZINE Yes Na Britt [address] [facility] HCl HCl 5-14 with food [facility] - 00:00: [facility] 00 l Outpati ent Clinics amlodipine amlodipine No 1 Q1D amlodipine [facility] 5 mg tablet 5 mg tablet 5 mg F amily Take 1 Take 1 tablet Practic tablet tablet Take 1 e every day every day tablet by oral by oral every day route. route. by oral route. carvedilol carvedilol No 1 BID carvedilol [facility] 25 mg 25 mg 25 mg Family tablet Take tablet Take tablet Practic 1 tablet 1 tablet Take 1 e twice a day twice a day tablet by oral by oral twice a route. route. day by oral route. clopidogrel clopidogrel No 1 Q1D clopidogre [facility] 75 mg 75 mg l [...] Eliquis 5 No 1 BID Eliquis 5 [facility] mg tablet mg tablet mg tablet Family Take 1 Take 1 Take 1 Practic tablet tablet tablet e twice a day twice a day twice a by oral by oral day by route. route. oral route. hydralazine hydralazine No 1 TID hydralazin [facility] 100 mg 100 mg e 100 mg Family tablet Take tablet Take tablet Practic 1 tablet 3 1 tablet 3 Take 1 e times a day times a day tablet 3 by oral by oral times a route. route. day by oral route. irbesartan irbesartan No 1 Q1D irbesartan [facility] 150 mg 150 mg 150 mg Family tablet Take tablet Take tablet Practic 1 tablet 1 tablet Take 1 e every day every day tablet by oral by oral every day route. route. by oral route. metformin metformin No 1 BID metformin [facility] 500 mg 500 mg 500 mg Family tablet Take tablet Take tablet Practic 1 tablet 1 tablet Take 1 e twice a day twice a day tablet by oral by oral twice a route. route. day by oral route. omeprazole omeprazole No 1capsul Q1D omeprazole [facility] 40 mg 40 mg e(s) [...] B-12 B-12 defined [facility] Crestor Crestor Yes Na [...] St am am [facility] Coreg Coreg Yes Na Britt not [facility] defined [facility] Metformin Metformin Yes Na Britt TAKE [address] [facility] HCl HCl TABLET BY [facility] - MOUTH Memoria TWICE l DAILY Outpati ent Clinics Rosuvastati Rosuvastati Yes Na Britt TAKE [address] [facility] n Calcium n Calcium TABLET BY [facility] - MOUTH Memoria DAILY l [facility] Sertraline Sertraline Yes Na Britt [address] HCl HCl [facility] Vitamin D3 Vitamin D3 Yes Na Britt [address] [facility] Cyanocobala Cyanocobala Yes Na Britt [address] [facility] min min [facility] Omeprazole Omeprazole Yes Na Britt [address] [facility] ONCE A DAY [facility] Plavix Plavix Yes Na Britt [address] [facility] Carvedilol Carvedilol Yes Na Britt as [facility] directed [facility] Levothyroxi Levothyroxi Yes Na Britt [address] [facility] ne Sodium ne Sodium in the Cristian es - morning on Memoria an empty l stomach [facility] Sodium Sodium Yes Na Britt TAKE [address] [facility] Chloride Chloride TABLET in Cyndi kes - AM and 1 Memoria tab EVERY l 6 HOURS [facility] Cranberry Cranberry Yes Na Britt [address] Concentrate Concentrate with meals [facility] Vital Signs Vital Name Observation Time Observation Value Comments Source Height 2020-02-19 00:00:00 62 [in_i] [facility] Height 2019-10-16 00:00:00 62 [in_i] [facility] BMI (Body Mass 2019-10-16 00:00:00 23.8 kg/m2 [facility] Family Index) Practice Body Weight 2019-10-16 00:00:00 130 [lb_av] [facility] Procedures This patient has no known procedures. Plan of Care Planned Activity Planned Date Details Comments Source Future Scheduled 2020-03-25 INFLUENZA VACCINE (#1) [facility] Test 00:00:00 [code = INFLUENZA Medical Ce nter VACCINE (#1)] Future Scheduled 2019-10-[address] Cyndi kes - Test 00:00:00 measurement Medical Center (procedure) [code = 95816592] Future Scheduled 2019-07-[address] L ukes - Test 00:00:00 WELLNESS (YEAR 2 or Medical Center FIRST YEAR if no IPPE) [code = MEDICARE ANNUAL WELLNESS (YEAR 2 or FIRST YEAR if no IPPE)] Future Scheduled 2001 PNEUMOCOCCAL 65+ YRS [facility] - Test 00:00:00 (1 of 1 - Medical Center [id number]) [code = PNEUMOCOCCAL 65+ YRS (1 of 1 - [id number] PCV13)] Future Scheduled 1946 DIABETIC EYE EXAM [facility] - Test 00:00:00 [code = DIABETIC EYE Medical Center EXAM] Future Scheduled [address] Cristian es - Test 00:00:00 examination Medical Center (regime/therapy) [code = 176061929] Future Scheduled 1946 Urine screening for [facility] - Test 00:00:00 protein (procedure) Medical Center [code = 751160801] Encounters Start End Encounter Admission Attending Care Care Encounter Source Date/Time Date/Time Type Type Clinicians Facility Department ID 2020-08-22 2020-08-22 Outpatient [facility] [id number] [facility] 2020-08-06 2020-08-06 [facility] [id number] [facility] 2020-07-30 2020-07-30 [facility] [id number] [facility] 2020-07-29 2020[facility]07[facility] [id number] [facility] 2020-07-29 2020-07-29 [facility] [id number] [facility] 2020-07-28 2020-07-28 Out[facility] [id number] [facility] 2020-06-17 2020-06-17 Out[facility] [id number] [facility] 2020-05-22 2020-05-[facility] [id number] [facility] 2020-04-23 2020-04-23 [facility] [id number] [facility] 2020-04-16 2020-04-16 [facility] [id number] [facility] 2020-03-26 2020-03-26 [facility] [id number] [address] 11:20:00 11:20:00 t [employer] [facility] Medicine Outpati ent Clinics 2020-03-07 2020-03-07 [facility] [id number] 14:44:00 14:44:00 t [employer] [facility] Outpati ent Clinics 2020-03-05 2020-03-05 [facility] [id number] 11:00:00 11:00:00 t Specialty/U Cyndi kes - [facility] Outpati ent Clinics 2020-03-03 2020-03-03 [facility] [id number] 12:39:00 12:39:00 t [employer] [facility] Outpati ent Clinics 2020-03-03 2020-03-03 [facility] [id number] 12:15:00 12:15:00 t [employer] [facility] Outpati ent Clinics 2020-02-19 2020-02-19 Belle [facility] [place] - [id number] V illage 00:00:00 00:00:00 [facility] eliana aguilar FISH NET STRINGER: Medical - Practi winter [address] [email or web address], [place] [address], [place] [address] , Ph. 2020-01-18 2020-01-18 [facility] [id number] 10:39:00 10:39:00 t [place] [email or web address] [facility] Medicine l Medicine Outpati ent Clinics 2020-01-17 2020-01-17 [facility] [id number] 10:40:00 10:40:00 t [place] [email or web address] [facility] Medicine l Medicine Outpati ent Clinics 2020-01-01 2020-01-01 [facility] [id number] 13:55:00 13:55:00 t [place] [email or web address] [facility] Medicine l Medicine Outpati ent Clinics 2019-12-20 2019-12-20 [facility] [id number] 09:43:00 09:43:00 t [employer] [facility] Medicine l Medicine Outpati ent Clinics 2019-12-18 2019-12-18 [facility] [id number] 11:20:00 11:20:00 t [employer] [facility] Medicine l Medicine Outpati ent Clinics 2019-12-04 2019-12-04 [facility] [id number] 10:00:00 10:00:00 t Specialty/U Cyndi kes - Specialty rology Memori a /Urology Clinic l Clinic Outpati ent Clinics 2019-12-03 2019-12-03 [facility] [id number] 11:31:00 11:31:00 t [employer] [facility] Medicine l Medicine Outpati ent Clinics 2019-11-26 2019-11-26 [facility] [id number] 08:43:00 08:43:00 t [employer] [facility] Medicine l Medicine Outpati ent Clinics 2019-11-16 2019-11-16 [facility] [id number] 08:35:00 08:35:00 t Specialty/U Cyndi kes - Specialty rology Memori a /Urology Clinic l Clinic Outpati ent Clinics 2019-11-10 2019-11-10 [facility] [id number] 14:05:00 14:05:00 t [facility] [employer] [facility] Medicine l Medicine Outpati ent Clinics 2019-10-17 2019-10-17 [facility] [id number] 14:55:00 14:55:00 t [employer] [facility] Medicine Outpati ent Clinics 2019-10-16 2019-10-16 Belle [facility] [place] - [id number] V illage 00:00:00 00:00:00 [facility] eliana agiular FISH NET STRINGER: Medical - Practi c [address] [email or web address] [facility], [address], [place] [address] , Ph. 2019-10-12 2019-10-12 [facility] [id number] 15:58:00 15:58:00 t [employer] [facility] Medicine Outpati ent Clinics 2019-10-01 2019-10-01 [facility] [id number] 15:42:00 15:42:00 t [employer] [facility] Medicine Outpati ent Clinics 2019-09-25 2019-09-25 [facility] [id number] 11:20:00 11:20:00 t [employer] [facility] Medicine Outpati ent Clinics 2019-09-18 2019-09-18 [facility] [id number] 11:15:00 11:15:00 t Specialty/U Cyndi kes - Specialty rology Memori a /Urology Clinic l Clinic Outpati ent Clinics 2019-09-14 2019-09-14 [facility] [id number] 11:32:00 11:32:00 t [employer] [facility] Medicine Outpati ent Clinics 2019-09-04 2019-09-04 [facility] [id number] 11:20:00 11:20:00 t [employer] [facility] Medicine Outpati ent Clinics 2019-09-04 2019-09-04 [facility] [id number] 10:00:00 10:00:00 t Specialty/U Cyndi kes - Specialty rology Memori a /Urology Clinic l Clinic Outpati ent Clinics 2019-08-08 2019-08-08 [facility] [id number] 10:40:00 10:40:00 t [employer] [facility] Medicine Outpati ent Clinics 2019-08-02 2019-08-02 [facility] [id number] 13:00:00 13:00:00 t Specialty/U Cyndi kes - [facility] Out[facility] Clinics 2019-07-09 2019-07-09 [facility] [id number] 14:00:00 14:00:00 t [employer] [facility] Medicine Outpati ent Clinics 2019-05-29 2019-05-29 [facility] [id number] 11:20:00 11:20:00 t [employer] [facility] Outpati ent Clinics 2019-05-15 2019-05-15 [facility] [id number] 10:15:00 10:15:00 t Specialty/U Cyndi kes - Specialty rology [facility] Clinic Outpati ent Clinics 2019-04-24 2019-04-24 [facility] [id number] 10:40:00 10:40:00 t [employer] [facility] Medicine Outpati ent Clinics 2019-04-09 2019-04-09 [facility] [id number] 13:20:00 13:20:00 t [employer] [facility] Medicine Outpati ent Clinics 2019-03-24 2019-03-24 [facility] [id number] 12:00:00 12:00:00 t [facility] - Care Clinic [facility] Clinic l Outpati ent Clinics 2019-03-15 2019-03-15 [facility] [id number] 13:22:00 13:22:00 t [facility] - Care Clinic [facility] Clinic l Outpati ent Clinics 2019-03-13 2019-03-13 [facility] [id number] 10:39:00 10:39:00 [place] [employer] Luke s - Drive [facility] Family Medicine l Medicine Outpati ent Clinics 2019-03-12 2019-03-12 [facility] [id number] 10:30:00 10:30:00 t Urgent Urgent Care [facility] - Care Clinic [facility] l Outpati ent Clinics 2019-02-28 2019-02-28 [facility] [id number] 13:00:00 13:00:00 [place] [employer] Luke s - Drive [facility] Medicine l Medicine Outpati ent Clinics 2019-02-12 2019-02-12 [facility] [id number] 10:15:00 10:15:00 t Specialty/U Cyndi kes - Specialty rology [facility] a /Urology Clinic l Clinic Outpati ent Clinics 2019-02-08 2019-02-08 [facility] [id number] 15:00:00 15:00:00 [place] [employer] Luke s - Drive [facility] Medicine l Medicine Outpati ent Clinics 2019-02-08 2019-02-08 [facility] [id number] 08:42:00 08:42:00 t [place] [employer] [facility] - Drive [facility] Medicine l Medicine Outpati ent Clinics 2019-02-06 2019-02-06 [facility] [id number] 09:40:00 09:40:00 t [place] [employer] [facility] - Drive [facility] Medicine l Medicine Outpati ent Clinics 2019-01-09 2019-01-09 [facility] [id number] 10:40:00 10:40:00 [place] [employer] Luke s - Drive [facility] Medicine l Medicine Outpati ent Clinics 2019-01-03 2019-01-03 [facility] [id number] 13:07:00 13:07:00 [place] [employer] Luke s - Drive [facility] l Medicine Outpati ent Clinics 2018-12-28 2018-12-28 [facility] [id number] 14:00:00 14:00:00 t [place] [employer] Luke s - Drive [facility] Medicine l Medicine Outpati ent Clinics 2018-09-14 2018-09-14 [facility] [id number] 09:26:00 09:26:00 t [facility] s [facility] ent Clinics 2018-09-08 2018-09-08 [facility] [id number] 09:30:00 09:30:00 t [facility] s [facility] ent Clinics 2018-08-07 2018-08-07 [facility] [id number] 08:45:00 08:45:00 t [facility] s [facility] ent Clinics 2018-02-20 2018-02-20 [facility] [id number] 14:30:00 14:30:00 t [facility] 2018-02-03 2018-02-03 [facility] [id number] 09:00:00 09:00:00 [facility] Results Test Description Test Time Test Comments Results Result [facility] e Comments CT, CTANGIO BRAIN 2019-05-01 Reason for FINAL REPORT PATIENT 10:58:00 exam:->stroke ID: [id number] CLINICAL HISTORY: TIA TECHNIQUE: Initially, noncontrast head [...] intact. There is no evidence for a [place] proximal branch vessel occlusion. Mild [...] artery stenosis, unchanged. No evidence for a [place] proximal branch vessel occlusion. Signed: Alexa Bolden MDReport Verified Date/Time: 05/01/2019 10:58:29 Reading Location: [address] Neuro Reading Room , CAROTID, ANGIO 2019-05-01 Reason for FINAL REPORT PATIENT 10:58:00 exam:->eval ID: [id number] for TIA CLINICAL HISTORY: TIA TECHNIQUE: Initially, [...] intact. There is no evidence for a [place] proximal branch vessel occlusion. Mild [...] artery stenosis, unchanged. No evidence for a [place] proximal branch vessel occlusion. Signed: Alexa Bolden MDReport Verified Date/Time: 05/01/2019 10:58:29 Reading Location: [facility] C0[facility] Neuro Reading Room C [...] 0-0 (BEAKER) (test code = 413) TROPONIN [id number] 20:18:00 Test Item Value Reference Range Interpretation [...] neurological disease, and persistent tachyarrhythmia.MR, BRAIN, WITHOUT [id number] 19:07:00Reason for exam:->Ischemic Stroke EvaluationFINAL REPORT MR, [...] None. IMPRESSION: No acute infarct Signed: Brenden Hernandezort Verified Date/Time: 04/30/2019 19:07:03 Reading Location: [address] Neuro Reading Room HEMOGLOBIN [id number] 10:33:00 Test Item Value Reference Range Interpretation Comments HEMOGLOBIN A1C (BEAKER) (test code = 6.6 % 4.3-6.1 H 368) FastingVITAMIN [id number] 09:00:00 Test Item Value Reference Range Interpretation [...] NOT APPLICABLE FOR DIALYSIS PATIEN TS. FastingLIPID [id number] 07:30:00 Test Item Value Reference Range Interpretation [...] 130-159 High 160-189 Very High >=190 FastingTROPONIN [id number] 07:28:00 Test Item Value Reference Range Interpretation [...] and persistent tachyarrhythmia.FastingCBC W/PLT COUNT & AUTO [id number] 05:43:00 Test Item Value Reference Range Interpretation [...] (BEAKER) (test code = 2801) [place], ANGIOGRAM, [id number] 11:37:00Reason for exam:->TIAsFINAL REPORT November 22, 2017 [...] guidance and strict sterile technique a 4 [place] femoral sheath was inserted into the right common femoral artery. Through the sheath a 4 [place] vertebral catheter was then advanced over the [...] demonstrates a critical supraclinoid ICA stenosis of fknauzfedjbid10%. There is delayed antegrade flow. The venous [...] MDReport Verified Date/Time: 11/22/2017 11:37:47 Reading Location: [facility] POCT- GLUCOSE [id number] 07:43:00 Test Item Value Reference Range Interpretation Comments POC-GLUCOSE METER 149 mg/dL 70-110 H TESTED AT [facility] 6720 (BEAKER) (test code = ISA [facility] 1538) [address] [id number] 06:46:00 Test Item Value Reference Range Interpretation Comments MAGNESIUM (BEAKER) (test code = 2.0 mg/dL 1.6-2.6 627) BASIC METABOLIC [id number] 06:46:00 Test Item Value Reference Range Interpretation [...] 358) GLUCOSE RANDOM 162 mg/dL 70-105 H ([facility]) (test code = 652) CALCIUM (AKER) 9.5 mg/dL 8.4-10.2 (test code = 697) EGFR ([facility]) (test 87 mL/min/1.73 ESTIMA OMAR GFR IS code = 1092) sq m NOT ACCURATE CREATININE CLEARANCE IN PREDICTING GLOMERULAR FILTRATION RATE . ESTIMATED GFR I S NOT APPLICABLE FOR DIALYSIS PATIEN TS. [id number] 06:33:00 Test Item Value Reference Range Interpretation Comments PROTIME ([facility]) (test code = 15.5 seconds 11.7-14.7 H 759) INR ([facility]) (test code = 370) 1.2 <=5.9 PARTIAL THROMBOPLASTIN TIME 35.9 seconds 22.5-36.0 ([facility]) (test code = 760) RECOMMENDED COUMADIN/WARFARIN INR THERAPY RANGESSTANDARD DOSE: 2.0 - 3.0 Includes: PROPHYLAXIS forvenous thrombosis, systemic embolization; TREATMENT for venous thrombosis and/or pulmonary embolus.HIGH RISK: Target INR is 2.5-3.5 for patients with mechanical heart valves.POCT-GLUCOSE [id number] 06:22:00 Test Item Value Reference Range Interpretation Comments POC-GLUCOSE METER 161 mg/dL 70-110 H TESTED AT [place] [address] ([facility]) (test code = ISA Norman [facility] 1538) [address] POCT-GLUCOSE [id number] 02:08:00 Test Item Value Reference Range Interpretation Comments POC-GLUCOSE METER 182 mg/dL 70-110 H TESTED AT [place] [address] ([facility]) (test code = [facility] 1538) [address] POCT-GLUCOSE [id number] 19:30:00 Test Item Value Reference Range Interpretation Comments POC-GLUCOSE METER 146 mg/dL 70-110 H TESTED AT [place] [address] ([facility]) (test code = [facility] 1538) [address] CT, CAROTID, [id number] 14:54:00Please include aortaFINAL REPORT CT angiogram of [...] the left ICA terminus. There is also vvjw-vv-cisenyjr multifocal narrowing of the right carotid siphon. [...] MDReport Verified Date/Time: 11/21/2017 14:54:26 Reading Location: [facility] [id number] 14:54:00FINAL REPORT CT angiogram of the upper [...] the left ICA terminus. There is also xfbv-ff-lpzncuol multifocal narrowing of the right carotid siphon. [...] Mcdaniels Verified Date/Time: 11/21/2017 14:54:26 Reading Location: [facility] Radiology Reading Room POCT-GLUCOSE [id number] 11:50:00 Test Item Value Reference Range Interpretation Comments POC-GLUCOSE METER 153 mg/dL 70-110 H TESTED AT [facility] 67 ([facility]) (test code = [facility] 1538) [address] POCT-GLUCOSE [id number] 08:08:00 Test Item Value Reference Range Interpretation Comments POC-GLUCOSE METER 125 mg/dL 70-110 H TESTED AT [facility] 6720 ([facility]) (test code = ANTOINETTENY [place] [facility] 1538) [address] [id number] 06:43:00 Test Item Value Reference Range Interpretation Comments MAGNESIUM ([facility]) (test code = 2.1 mg/dL 1.6-2.6 627) BASIC METABOLIC [id number] 06:43:00 Test Item Value Reference Range Interpretation [...] FOR DIALYSIS PATIEN TS. TSH/FREE T4 IF [id number] 22:12:00 Test Item Value Reference Range Interpretation Comments THYROID STIMULATING HORMONE 4.66 uIU/mL 0.35-4.94 (BEAKER) (test code = 772) [id number] 21:54:00 Test Item Value Reference Range Interpretation Comments MAGNESIUM (BEAKER) (test code = 2.0 mg/dL 1.6-2.6 627) BASIC METABOLIC [id number] 21:54:00 Test Item Value Reference Range Interpretation [...] H (BEAKER) (test code = 652) CALCIUM ([facility]) 9.5 mg/dL 8.4-10.2 (test code = 697) EGFR ([facility]) (test 87 mL/min/1.73 ESTIMA OMAR GFR IS code = 1092) sq m NOT ACCURATE CREATININE CLEARANCE IN PREDICTING GLOMERULAR FILTRATION RATE . ESTIMATED GFR I S NOT APPLICABLE FOR DIALYSIS PATIEN TS. LIPID [id number] 21:54:00 Test Item Value Reference Range Interpretation Comments TRIGLYCERIDES ([facility]) (test code = 70 mg/dL 540) CHOLESTEROL ([facility]) (test code = 101 mg/dL 631) HDL CHOLESTEROL ([facility]) (test code 39 mg/dL = 976) LDL CHOLESTEROL CALCULATED ([facility]) 48 mg/dL (test code = 633) Triglyceride Reference Range: Low Risk <150 Borderline 150-199 High Risk 200-499 Very High Risk >=500Cholesterol Reference Range: Low Risk <200 Borderline 200-239 High Risk >240HDL Cholesterol Reference Range: Low Risk >=60 High Risk <40LDL Cholesterol Reference Range: Optimal <100 Near Optimal 100-129 Borderline 130-159 High 160-189 Very High >=190POCT-GLUCOSE [id number] 21:35:00 Test Item Value Reference Range Interpretation Comments POC-GLUCOSE METER 128 mg/dL 70-110 H TESTED AT [place] [address] ([facility]) (test code = [facility] 1538) [address] POCT-GLUCOSE [id number] 17:55:00 Test Item Value Reference Range Interpretation Comments POC-GLUCOSE METER 113 mg/dL 70-110 H TESTED AT [place] [address] ([facility]) (test code = [facility] 1538) [address] POCT-GLUCOSE [id number] 12:32:00 Test Item Value Reference Range Interpretation Comments POC-GLUCOSE METER 120 mg/dL 70-110 H TESTED AT [place] [address] ([facility]) (test code = [facility] 1538) [address] MR, MRA, BRAIN, WITHOUT [id number] 11:33:00Reason for exam:->Ischemic Stroke EvaluationFINAL REPORT MRA Head and Neck CLINICAL HISTORY: CVA TECHNIQUE: MRA of the head utilizing 3-D htzp-hh-ddldpx technique, with 3-D reconstructions. MRA of the neck utilizing 2-D and 3-D nlcm-ql-obacuw technique, with 3-D reconstructions. COMPARISON: None FINDINGS: [...] There is no other evidence for a [place] proximal branch vessel occlusion. There [...] MDReport Verified Date/Time: 11/20/2017 11:33:14 Reading Location: [address] Neuro Reading Room MR, MRA, NECK, WITHOUT IV [id number] 11:33:00Reason for exam:->Ischemic Stroke EvaluationFINAL REPORT MRA Head and Neck CLINICAL HISTORY: CVA TECHNIQUE: MRA of the head utilizing 3-D uphl-bf-crihav technique, with 3-D reconstructions. MRA of the neck utilizing 2- D and 3-D fumc-kq-sovgjm technique, with 3-D reconstructions. COMPARISON: None FINDINGS: [...] There is no other evidence for a [place] proximal branch vessel occlusion. There [...] internal carotid artery siphon. Signed: Alexa Bolden MDRort Verified Date/Time: 11/20/2017 11:33:14 Reading Location: [facility] C013V Neuro Reading Room MR, BRAIN, WITHOUT [id number] 11:05:00Reason for exam:->Ischemic Stroke EvaluationFINAL REPORT MRI [...] MDReport Verified Date/Time: 11/20/2017 11:05:05 Reading Location: [facility] C013V Neuro Reading Room HEMOGLOBIN [id number] 09:08:00 Test Item Value Reference Range Interpretation Comments HEMOGLOBIN A1C (BEAKER) (test code = 6.1 % 4.3-6.1 368) POCT-GLUCOSE [id number] 08:27:00 Test Item Value Reference Range Interpretation Comments POC-GLUCOSE METER 125 mg/dL 70-110 H TESTED AT [facility] 6720 ([facility]) (test code = [place] 1538) [address] TSH/FREE T4 IF [id number] 07:47:00 Test Item Value Reference Range Interpretation Comments THYROID STIMULATING HORMONE 5.97 uIU/mL 0.35-4.94 H (BEAKER) (test code = 772) VITAMIN [id number] 07:44:00 Test Item Value Reference Range Interpretation Comments VITAMIN B12 (BEAKER) (test code = 857 pg/mL 213-816 H 774) CBC W/PLT COUNT & AUTO [id number] 06:47:00 Test Item Value Reference Range Interpretation [...] % 0-1 PERCENT (BEAKER) (test code = 280) POCT-GLUCOSE [id number] 22:09:00 Test Item Value Reference Range Interpretation Comments POC-GLUCOSE METER 130 mg/dL 70-110 H TESTED AT [facility] 6720 ([facility]) (test code = [place] 1538) [address]
--- OUTSIDE RECORDS SUMMARY | 2020-08-24 17:42 | XMS REPORT ---
:1935 Author Organization [facility] Address [address] [place], [address] [place] [address] Care Team Providers Name Role Phone Britt Unavailable [phone] PROBLEMS Type Condition ICD9-CM VEU78-SX Onset Condition SNOMED Code Notes Code Code Dates Status Problem Chronic a-fib I48.2 Active 22983588 Problem Obstructive sleep G47.33 Active 95991582 apnea Problem Overactive bladder N32.81 Active 778522442 Problem Obesity E66.9 Active 429012574 Problem GERD K21.9 Active 588403187 (gastroesophageal reflux disease) Problem Allergic rhinitis J30.9 Active 08907182 Problem Hypertension I10 Active 70405781 Problem Memory change R41.3 Active 67626899 Problem Stress at home F43.9 Active 009725397 Problem 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 Active 861648656 Problem Recurrent urinary N39.0 Active 873336273 tract infection Problem Hospital discharge Z09 Active 719635892 follow-up Problem History of TIA Z86.73 Active 232740861 (transient ischemic attack) Problem Other speech R47.89 Active 98723749 disturbance Problem Atherosclerosis I70.90 Active 80455723 Problem Chronic fatigue R53.82 Active 48052055 Problem 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 090856162858802 carotid artery Problem Mild depression F32.0 Active 796651969 Problem Elevated TSH R79.89 Active 869264668 Problem Other chronic pain G89.29 Active 40635893 Problem Mixed stress and N39.46 Active 723918158 urge urinary incontinence Problem Acquired E03.9 Active 221638826 hypothyroidism Problem Hyponatremia E87.1 Active 13143762 Problem Abnormal mammogram R92.8 Active 227667813 Problem Dysuria R30.0 Active 50544602 Problem Hyperlipidemia E78.5 Active 63135130 Problem Type 2 diabetes E11.9 Active 478604213 Problem Seizure disorder G40.909 Active 356199956 Problem Seasonal allergic J30.2 Active 552904452 rhinitis, unspecified trigger Problem 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 Active 514203644 multiple joints, unspecified osteoarthritis type Problem Gastroesophageal K21.9 Active 919049882 reflux disease, esophagitis presence not specified ALLERGIES Allergen (clinical drug Drug/Non Drug Reaction Allergy Type Onset D ate Status ingredient) Allergy documented on EMR Vicodin Unknown Drug Allergy Active aspirin Aspirin([facility] Unknown Drug Allergy Active Code:[address]-10) lisinopril Lisinopril([facility] Unknown Drug Allergy Active Code:[address]-19) Iodine contrast dye Unknown Non Drug Allergy Active clonidine CloNIDine([facility] Unknown Drug Allergy Active Code:[address]-28) Nitrous oxide Unknown Non Drug Allergy Activ e sertraline Zoloft([facility] Unknown Drug Allergy Active Code:[address]-05) nitrofurantoin Macrodantin([facility] Unknown Drug Allergy Act marty Code:[address]-33) codeine codeine Unknown Drug Allergy Active niacin Niacin([facility] Unknown Drug Allergy Active Code:[address]-91) ENCOUNTERS from 1935 to 2020-08-03 Encounter Location Date Provider Diagnosis [facility] [address] [address] [facility] Jul, Elli ragland with and Family Medicine [address], ([place] [address] other viral communicable di seases Z20.828 ; Sinus congestion R09. 81 and Encounter for s creening for COVID-19 Z1 1.52 IMMUNIZATIONS Vaccine Route Administration Date Status Vitamin [...] REASON FOR REFERRAL No Information VITAL SIGNS Height 62 in Jul, Weight 122 lbs Jul, Temperature 97.9 degrees Fahrenheit Jul, BMI 22.31 kg/m2 Jul, Blood pressure systolic 133 mm Hg Jul, Blood pressure diastolic 57 mm Hg Jul, MEDICATIONS Medication SIG (Take, Route, Notes Start [...] a day Coreg 25 MG Orally Active Pcxnrymj-Apjssyphn-TB 4 drops into Jul, Active 3.5-11870-5 affected ear Otic Three times a day [...] DAY Acti ve PROCEDURES No Information RESULTS Component Value Reference Range Novel Coronavirus (COVID-19), NILA Reviewed date:07/31/2020 12:32:52 Interpretation:Negative Negative Performing Lab:, [facility] [employer] [address], [place], [place] [id number], Phone - [phone], Director - [facility] SARS-CoV-2, NILA Not Detected Not Detected Inpatient Reviewed date:07/31/2020 12:32:52 Interpretation: Negative Performing Lab:, [facility], [address], [place], [place] [address], Phone - [phone], Director - [facility] Inpatient REASON FOR VISIT COVID exposure-, ear pain, nasal congestion, allergies MEDICAL (GENERAL) HISTORY Type Description Date Medical [...] No Information ASSESSMENTS Encounter Date Diagnosis Assessment Treatment Notes Treatment Notes Clinical Notes Jul, Contact with and get plenty of rest, (suspected) vitamin C, D 3, zinc exposure to other to help boost your viral communicable immune system. As diseases (ICD-10 - you are getting Z20.828) better, your immune systems has cleared the virus , and the rest is your body healing. Treat your symptoms or any fever with otc medications as directed. Get plenty of rest and stay well hydrated with fluids.__ recommend to monitor temperature control with tylenol fever is anything above 100.4 F, monitor your oxygen saturation with a pulse oximeter call clinic or go to ER if oxygen less than 90 %get plenty of rest, vitamin C, D 3, zinc to help boost your immune system. As you are getting better, your immune systems has cleared the virus , and the rest is your body healing. Treat your symptoms or any fever with otc medications as directed. Get plenty of rest and stay well hydrated with fluids.-- recommend to monitor temperature control with tyelnol fever is anything above 100.4 F, monitor your oxygen saturation with a pulse oximeter call clinic or go to ER if oxygen less than 90 %discussed sometimes testing may be too early and may result in false negatives so need to be symptoms free and quarantine until results negative and symptom free for at least 72 hours or quarantine for 14 days to be safe. Jul, Sinus congestion treat Increase (ICD-10 - R09.81) symptomatically hydrati on. allergies. Advised on signs/symptoms to monitor. OK to use OTC Tylenol and/or NSAIDs f or pain and fever, temporarily. It is important to rest and take your medication as recommended by the doctor. Augustine al saline sprays three times a d ay to the nostrils may help with t he nasal congestio n. You may also ta ke Mucinex OTC for chest congestio n. If the symptoms persists or worsen after 24-48 hours especially if taking medication, the n you are to call back for reevaluation or go to the ER. Jul, Encounter for screening for COVID-19 (ICD-10 - Z11.52) Jul, Other time was spent counseling and coordinating ca re including but n ot limited to discussion of test results, diagnostic or treatment recommendations , prognosis, risk s and benefits of management options, instructions, education, compliance and or risk reductiion PLAN OF TREATMENT Medication Medication Name Sig Start Date Stop Date Bbmvtatb-Xuwclzggr-BL 4 drops into affected ear Otic Jul, 1 3.5-05182-7 Three times a day for 10 days Treatment Notes Assessment Notes Clinical Notes Contact with and (suspected) get plenty of rest, vitamin C, exposure to other viral D 3, zinc to help boost your communicable diseases immune system. As you are getting better, your immune systems has cleared the virus , and the rest is your body healing. Treat your symptoms or any fever with otc medications as directed. Get plenty of rest and stay well hydrated with fluids.__ recommend to monitor temperature control with tylenol fever is anything above 100.4 F, monitor your oxygen saturation with a pulse oximeter call clinic or go to ER if oxygen less than 90 %get plenty of rest, vitamin C, D 3, zinc to help boost your immune system. As you are getting better, your immune systems has cleared the virus , and the rest is your body healing. Treat your symptoms or any fever with otc medications as directed. Get plenty of rest and stay well hydrated with fluids.-- recommend to monitor temperature control with tyelnol fever is anything above 100.4 F, monitor your oxygen saturation with a pulse oximeter call clinic or go to ER if oxygen less than 90 %discussed sometimes testing may be too early and may result in false negatives so need to be symptoms free and quarantine until results negative and symptom free for at least 72 hours or quarantine for 14 days to be safe. Sinus congestion treat symptomatically Increase hydration . Advised allergies. on signs/symptoms to monitor. OK to use O TC Tylenol and/or NSAID s for pain and fever, temporarily. It is important to rest an d take your medication as recommended by the [facility]. Nasal saline sprays three times a day to the n ostrils may help with the na yves congestion. You may also take Mucinex OTC for chest congestion. If the s ymptoms persists or worsen a fter 24-48 hours especial ly if taking medication, t hen you are to call back for reevaluation or go t o the ER. Next Appt Details prn Reason: Provider Name:Elli Britt, 2020-08-06 10:0 0:00 AM, [address] [place] [address], [facility] [address], [place], [address], Provider Name:Adamaris Cifuentes, 10:15:00 AM, [address] [facility], [facility] [address], [place], [address], Insurance Providers Payer Name Payer Payer Insured Patient Coverage Coverage End Address Phone Name Relationship to Start Date Dwain e Insured [employer] [address] [address] [phone] Rodri Lara self [address] [employer] [address] [facility] [address] [place] [id number]
--- OUTSIDE RECORDS SUMMARY | 2020-08-24 17:42 | XMS REPORT ---
:1935 Author Organization [facility] Address [address] [place], [address] [place] [address] Care Team Providers Name Role Phone Britt Unavailable [phone] PROBLEMS Type Condition ICD9-CM EDY33-UL Onset Condition SNOMED Code Notes Code Code Dates Status Problem Chronic a-fib I48.2 Active 73384403 Problem Obstructive sleep G47.33 Active 73072852 apnea Problem Overactive bladder N32.81 Active 707177108 Problem Obesity E66.9 Active 985991816 Problem GERD K21.9 Active 972177524 (gastroesophageal reflux disease) Problem Allergic rhinitis J30.9 Active 68497379 Problem Hypertension I10 Active 46808648 Problem Memory change R41.3 Active 36230869 Problem Stress at home F43.9 Active 926884472 Problem 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 Active 797373689 Problem Recurrent urinary N39.0 Active 270334549 tract infection Problem Hospital discharge Z09 Active 518833983 follow-up Problem History of TIA Z86.73 Active 796698057 (transient ischemic attack) Problem Other speech R47.89 Active 56199997 disturbance Problem Atherosclerosis I70.90 Active 78223935 Problem Chronic fatigue R53.82 Active 32139110 Problem 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 690698234990271 carotid artery Problem Mild depression F32.0 Active 203129847 Problem Elevated TSH R79.89 Active 331850477 Problem Other chronic pain G89.29 Active 71175411 Problem Mixed stress and N39.46 Active 469882698 urge urinary incontinence Problem Acquired E03.9 Active 891845340 hypothyroidism Problem Hyponatremia E87.1 Active 50763203 Problem Abnormal mammogram R92.8 Active 806081912 Problem Dysuria R30.0 Active 33681044 Problem Hyperlipidemia E78.5 Active 00726318 Problem Type 2 diabetes E11.9 Active 616370644 Problem Seizure disorder G40.909 Active 294547901 Problem Seasonal allergic J30.2 Active 971456905 rhinitis, unspecified trigger Problem 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 Active 374327999 multiple joints, unspecified osteoarthritis type Problem Gastroesophageal K21.9 Active 836404743 reflux disease, esophagitis presence not specified ALLERGIES Allergen (clinical drug Drug/Non Drug Reaction Allergy Type Onset D ate Status ingredient) Allergy documented on EMR Vicodin Unknown Drug Allergy Active aspirin Aspirin([facility] Unknown Drug Allergy Active Code:[address]-24) lisinopril Lisinopril([facility] Unknown Drug Allergy Active Code:[address]-40) Iodine contrast dye Unknown Non Drug Allergy Active clonidine CloNIDine([facility] Unknown Drug Allergy Active Code:[address]-62) Nitrous oxide Unknown Non Drug Allergy Activ e sertraline Zoloft([facility] Unknown Drug Allergy Active Code:[address]-07) nitrofurantoin Macrodantin([facility] Unknown Drug Allergy Act marty Code:[address]-37) codeine codeine Unknown Drug Allergy Active niacin Niacin([facility] Unknown Drug Allergy Active Code:[address]-77) ENCOUNTERS from 1935 to 2020-08-11 Encounter Location Date Provider Diagnosis [address] Jul, Na Britt Sei zure disorder G40.909 Family Medicine [address] [place] [address], ; Hypon atremia E87.1 ; [place] [address] Hypertension I 10 ; Acquired hypoth yroidism E03.9 ; Hyperli [...] VITAL SIGNS Height 62 in Jul, Weight 120 lbs Jul, Temperature 97.3 degrees Fahrenheit Jul, BMI 21.95 kg/m2 Jul, Blood pressure systolic 120 mm Hg Jul, Blood pressure diastolic 67 mm Hg Jul, MEDICATIONS Medication SIG (Take, Route, Notes Start Date End Date Status Frequency, Duration) Sodium Chloride 1000 MG 1 tablet Orally 5 Feb, Aug, Active times daily for 90 days Sertraline HCl 25 MG 1 tablet Orally Not-Taking Once a day for 30 day(s) Vitamin D3 1000 UNIT 1 capsule Orally Not-Taking Once a day Irbesartan 150 MG 1 tablet Orally Ac tive Once a day for 30 day(s) Vitamin B-12 Not-Taking Rosuvastatin Calcium 40 TAKE 1 TABLET BY Active MOUTH DAILY for 90 Levetiracetam 250 MG 1 tablet Orally Not-Taking every 12 hrs Estradiol 0.1 MG/GM as directed Vaginal Jan, Not-Taking Two times a Week for 90 days Metformin HCl 500 TAKE 1 TABLET BY A ctive MOUTH TWICE DAILY for 90 Crestor 40 MG 1 EACH ONCE A DAY Acti ve Plavix 75 MG 1 tablet Orally Not-Seven ing Once a day Vfzkblmn-Sgjdbguas-ZS 4 drops into Jul, Active 3.5-64711-3 affected ear Otic Three times a day for 10 days Trimethoprim 100 MG 1 tablet Orally Active Once a day for 90 Pantoprazole Sodium 40 1 tablet Orally Active MG Once a day for 90 HydrALAZINE HCl 100 MG 1 tablet with food Active Orally Three times a day Methenamine Hippurate 1 1 tablet Orally Not-Taking GM Twice a day for 30 day(s) HydrALAZINE HCl 100 MG as directed Orally November, Not-Taking Three times a day Metformin HCl 500 MG TAKE 1 TABLET BY Active MOUTH TWICE DAILY for 90 Montelukast Sodium 10 1 tablet Orally Sep, Not-Taking MG Once a day for 90 days Omeprazole 40 TAKE 1 CAPSULE BY Not- Taking MOUTH EVERY DAY for 90 Cranberry Concentrate 1 capsule with Active 425 MG meals Orally Eliquis 5 MG 1 tablet Orally Active twice a day Tylenol Arthritis Pain No t-Taking Vitamin E 400 UNIT Orally Active Coreg 25 MG Orally Active Carvedilol 25 MG as directed Orally Active Sodium Chloride 1000 MG 1 tablet Orally Active every 6 hours Omeprazole 40 MG 1 EACH ONCE A DAY N ot-Taking orally daily in AM for 90 days Rosuvastatin Calcium 40 TAKE 1 TABLET BY Active MG MOUTH DAILY for 90 Cyanocobalamin 1000 15 ml Orally Once a Not-Taking MCG/15ML day Magnesium 500 MG Orally Active Sodium Chloride 1 GM TAKE 2 TABLET in AM Active and 1 tab EVERY 6 HOURS Orally for 90 days Amlodipine Besylate 10 1 tablet Orally Active MG Once a day for 30 day(s) Levothyroxine Sodium 1 tablet in the Active 125 MCG morning on an empty stomach Orally Once a day Multivitamin Active Probiotic - Orally Active PROCEDURES No Information RESULTS No Results REASON FOR VISIT follow up ER followup, weakness/nausea, ear ache MEDICAL (GENERAL) HISTORY Type Description Date Medical [...] Treatment Notes Treatment Notes Clinical Notes Jul, Seizure disorder controlled on (ICD-10 - G40.909) vipmat new antiseizure medication started on by pt doing well no reported fatigue or seizures. Jul, Hyponatremia will monitor (ICD-10 - E87.1) sodium this week to make sure sodium in normal range. continue sodium chloride tabs f/u with nephro Jul, Hypertension Maintian a low salt (ICD-10 - I10) DASH diet, exercise, weight loss and decrease stress recommended. Keep BP log and will review next visit. If blood pressure consistently above 140/90 return to clinic for adjustment of meds. Try to quit smoking if you currently smoke. Decrease caffeine intake if possible. -- also has chronic afib will followup with cardiology and continue home health to monitor BP Jul, Acquired continue hypothyroidism levothyroxine 75 (ICD-10 - E03.9) mcg once a day . Patient has hypothyroidism stable on current levothyroxne with no major complaints. Patient is taking medication daily no missing doses and taking it first thing in AM with water at least 30 mins before and after other meds. Jul, Hyperlipidemia ( goal LDL is less (ICD-10 - E78.5) 100 and less than 70 if you have heart disease or diabetes). maintain low fat diet, decrease fast food and fried foods. Increase fruit and vegetable intake. exercise as tolerated 30minutes per day at least 3 days a week. May take fish oil 1000mg twice daily to help increase good cholesterol (HDL) and take metamucil / eat oatmeal in AM to help lower bad cholesterol. Jul, Weakness (ICD-10 - improved R53.1) Jul, Other -- Medications Total time sp ent reviewed and by provider updated. -- Dietary during t his and Lifestyle virtual visit was modifications approx 15 discussed with minutes. Also , patient regarding time was s pent low fat low salt counseling and diet diet, exercise coordina ting care and weight including but n ot management. -- limited to Treatment options, discussio n of risks and benefits, test res ults, side effects diagnostic or reviewed in detail. treatmen t Patient accepts recommendati ons, risk. -- Advised on prognosi s, risks signs/symptoms to and benefi ts of monitor and when to manageme nt call clinic and/or options, visit the nearest instructio ns, ER. Patient education, verbalized compliance and or understanding and risk reduc tion. agreed with plan. - time was spent counseling and coordinating care including but not limited to discussion of test results, diagnostic or treatment recommendations, prognosis, risks and benefits of management options, instructions, education, compliance and or risk reduction. PLAN OF TREATMENT Medication Medication Name Sig Start Date Stop Date Coreg 25 MG Orally Amlodipine Besylate 10 MG 1 tablet Orally Once a day for 30 day(s) HydrALAZINE HCl 100 MG 1 tablet with food Orally Three times a day Irbesartan 150 MG 1 tablet Orally Once a day for 30 day(s) Sodium Chloride 1000 MG 1 tablet Orally every 6 hours Treatment Notes Assessment Notes Clinical Notes Seizure disorder controlled on vipmat new antiseizure medication started on by Dr.Krellpt armen bhakta no reported fatigue or seizures. Hyponatremia will monitor sodium this week to make s ure sodium in normal range. continue sodium chloride tabsf/u with nephro Hypertension Maintian a low salt DASH diet, exercise, weight loss and decrease stress recommen ded. Keep BP log and will review next visit. If blood pressure consistently above 140/90 return to clinic for adjustment of meds. Try to quit smoking if you currently smoke. Decrease caffeine intake if possible.-- also has chronic afib will followup with card iology and continue home health to monitor BP Acquired hypothyroidism continue levothyroxine 75 mcg once a day . Patient has hypothyroidism stable on cur rent levothyroxne with no major complaints. P atient is taking medication daily no missing do ses and taking it first thing in AM with ludy er at least 30 mins before and after other med s. Hyperlipidemia ( goal LDL is less 100 and less than 70 if you have heart disease or diabetes). ma intain low fat diet, decrease fast food and fri ed foods. Increase fruit and vegetable inta ke. exercise as tolerated 30minutes per day at least 3 days a week. May take fish oil 1 000mg twice daily to help increase good choles terol (HDL) and take metamucil / eat oatmeal i n AM to help lower bad cholesterol. Weakness improved Next Appt Details prn,3M Reason: Provider Name:Adamaris Cifuentes, 10:15:00 AM, [address] [place] [address], [place] [address], [place], [address], Insurance Providers Payer Name Payer Payer Insured Patient Coverage Coverage End Address Phone Name Relationship to Start Date Dwain e Insured [employer] [address] [address] [phone] Rodri Lara self [address] [facility] [address] [address]
--- OUTSIDE RECORDS SUMMARY | 2020-08-24 17:43 | XMS REPORT ---
:1935 Author Organization [facility] Address [address] [place], [address] [place] [address] Care Team Providers Name Role Phone Britt Unavailable [phone] PROBLEMS Type Condition ICD9-CM CTL40-PM Onset Condition SNOMED Code Notes Code Code Dates Status Problem Overactive bladder N32.81 Active 324729206 Problem GERD K21.9 Active 965118504 (gastroesophageal reflux disease) Problem Obstructive sleep G47.33 Active 02681733 apnea Problem Hypertension I10 Active 11740794 Problem Obesity E66.9 Active 004265405 Problem Hyperlipidemia E78.5 Active 23307962 Problem Allergic rhinitis J30.9 Active 24658094 Problem Other chronic pain G89.29 Active 05121477 Problem Recurrent urinary N39.0 Active 801559669 tract infection Problem Memory change R41.3 Active 89080177 Problem Chronic a-fib I48.2 Active 86752694 Problem 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 Active 342761019 Problem Atherosclerosis I70.90 Active 08999283 Problem Hospital discharge Z09 Active 089094478 follow-up Problem 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 555653473219531 carotid artery Problem Other speech R47.89 Active 04871511 disturbance Problem Elevated TSH R79.89 Active 770586383 Problem Chronic fatigue R53.82 Active 42346050 Problem Stress at home F43.9 Active 139993144 Problem Mild depression F32.0 Active 733828540 Problem Mixed stress and 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 Active 930303707 urge urinary incontinence Problem Acquired E03.9 Active 920726306 hypothyroidism Problem Seizure disorder G40.909 Active 206612377 Problem Dysuria R30.0 Active 39634246 Problem Type 2 diabetes E11.9 Active 109658511 Problem Otalgia, H92.09 Active 00030667 unspecified laterality Problem Abnormal mammogram R92.8 Active 532177284 Problem History of TIA Z86.73 Active 388110660 (transient ischemic attack) Problem Seasonal allergic J30.2 Active 226660835 rhinitis, unspecified trigger Problem 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 Active 749624814 multiple joints, unspecified osteoarthritis type Problem Gastroesophageal K21.9 Active 435106458 reflux disease, esophagitis presence not specified Problem Hyponatremia E87.1 Active 68354286 ALLERGIES Allergen (clinical drug Drug/Non Drug Reaction Allergy Type Onset D ate Status ingredient) Allergy documented on EMR Vicodin Unknown Drug Allergy Active aspirin Aspirin([facility] Unknown Drug Allergy Active Code:[address]-65) lisinopril Lisinopril([facility] Unknown Drug Allergy Active Code:[address]-63) Iodine contrast dye Unknown Non Drug Allergy Active clonidine CloNIDine([facility] Unknown Drug Allergy Active Code:[address]-95) Nitrous oxide Unknown Non Drug Allergy Activ e sertraline Zoloft([facility] Unknown Drug Allergy Active Code:[address]-08) nitrofurantoin Macrodantin([facility] Unknown Drug Allergy Act marty Code:[address]-70) codeine codeine Unknown Drug Allergy Active niacin Niacin([facility] Unknown Drug Allergy Active Code:[address]-52) ENCOUNTERS from 1935 to 2020-08-22 Encounter Location Date Provider Diagnosis [facility] [address] [facility] Jul, Elli Valentine lgia, unspecified Family Medicine [address] [facility] [place] [address] [place] [address] IMMUNIZATIONS Vaccine Route Administration Date Status Vitamin [...] tablet Orally Not-Seven ing Once a day Bdqwleov-Tpklcgudo-[place] 4 drops into Jul, Active 3.5-51359-0 affected ear Otic Three times a day [...] Information RESULTS No Results REASON FOR VISIT ent referral MEDICAL (GENERAL) HISTORY Type Description Date Medical [...] Notes Treatment Notes Treatm ent Clinical Notes Jul, Otalgia, unspecified laterality (ICD-10 - H92.09) PLAN OF TREATMENT Medication Medication Name Sig [...] every 6 hours Next Appt Details Provider Name:Adamaris Cifuentes, 10:15:00 AM, [address] [facility] [address], [place], [address], Insurance Providers Payer Name Payer Payer Insured Patient Coverage Coverage End Address Phone Name Relationship to Start Date Dwain e Insured [facility] [address] [address] [phone] Marco,Be self [address] [facility] [address] [phone]
--- NOTE | 2020-08-24 20:01 | RAD REPORT ---
EXAM DESCRIPTION: Diane Single View08/24/2020 7:46 pm CLINICAL HISTORY: Chest pain COMPARISON: 2019 FINDINGS: The lungs appear clear of acute infiltrate. The heart is mildly enlarged. Postsurgical changes involve the chest. IMPRESSION: No acute abnormalities displayed
[2020-08-24] MEDS ORDERED: ONDANSETRON 4 MG/2 ML VIAL ONE (20:09)
[2020-08-24] MEDS ORDERED: NA CHLORIDE 0.9% 500 ML ONE (20:09)
[2020-08-24 20:21] LABS: Absolute Lymphocytes (CBC) 1.8 K/uL (0.7-4.9); Basophils % 0.4 % (0-1.3); Hematocrit 39.8 % (36.0-45.0); Lymphocytes % 27.7 % (15.3-44.8); MPV 8.5 fL (7.6-11.3); RBC Red Blood Cell Count 4.08 M/uL (3.86-4.86)
[2020-08-24 20:23] LABS: Protime INR 1.1
[2020-08-24 20:27] LABS: ALT/SGPT 26 U/L (12-78); AST/SGOT 16 U/L (15-37); Albumin 3.8 g/dL (3.4-5.0); Alkaline Phosphatase 114 U/L (45-117); BUN Blood Urea Nitrogen 18 mg/dL (7-18); Bicarbonate 29 mmol/L (21-32); Bilirubin Direct 0.2 mg/dL (0-0.2); Bilirubin Total 0.5 mg/dL (0.2-1.0); Glucose Level 131 mg/dL (74-106); Lipase 113 U/L (73-393); Magnesium 2.3 mg/dL (1.8-2.4); NT PRO-BNP 837 pg/mL (<450); Potassium 4.1 mmol/L (3.5-5.1); Protein, Total 7.8 g/dL (6.4-8.2); Sodium Level 139 mmol/L (136-145); Troponin (Emerg Dept Use Only) < 0.02 ng/mL (0.0-0.045)
--- NOTE | 2020-08-24 20:32 | RAD REPORT ---
EXAM DESCRIPTION: CT - Head Brain Wo Cont - 08/24/2020 8:17 pm CLINICAL HISTORY: Generalize weakness COMPARISON: June 2020 TECHNIQUE: Computed axial tomography of the head was obtained. IV contrast was not requested. All CT scans are performed using dose optimization technique as appropriate and may include automated exposure control or mA/KV adjustment according to patient size. FINDINGS: An intracranial bleed is not seen . The ventricles are normal in caliber. No extra-axial fluid collection is noted. Fluid within the sinuses/ mastoids is not seen. IMPRESSION: No acute intracranial abnormality is seen. If patient's symptoms persist MRI of the bra in would be recommended.
[2020-08-24 21:46] LABS: Urine Blood NEGATIVE (NEG); Urine Glucose NEGATIVE (NEG); Urine Protein NEGATIVE (NEG)
[2020-08-24 22:18] LABS: SARS-COV-2 RT PCR NEGATIVE (NEGATIVE)
--- NOTE | 2020-08-24 22:40 | ER ---
Nurse's Notes [facility] Name: Radha Lara Age: 85 yrs Sex: Female : 1935 Arrival Date: 08/24/2020 Time: 17:41 Bed 3 Private MD: Elli Britt Diagnosis: Generalized Weakness;Decreased Appetite;Fatigue;Otalgia, bilateral Presentation: 08/24 17:50 Chief complaint: Patient states: Not feeling well, weakness, fatigue, decreased ll1 appetite, bilateral ear pain for 2 days. No fever or cough. Coronavirus screen: Client denies travel out of the [place] in the last 14 days. At this time, the client does not indicate any symptoms associated with coronavirus-19. Ebola Screen: Patient denies travel to an Ebola-affected area in the 21 days before illness onset. No acute neurological deficit is noted. Initial Sepsis Screen: Does the patient meet any 2 criteria? No. Patient's initial sepsis screen is negative. Does the patient have a suspected source of infection? No. Patient's initial sepsis screen is negative. Risk Assessment: Do you want to hurt yourself or someone else? Patient reports no desire to harm self or others. Onset of symptoms was August 23, 2020. 17:50 Method Of Arrival: Wheelchair ll1 17:50 Acuity: YOLANDE 3 ll1 Stroke Activation: Symptom onset > 6 hours Physician: Stroke Attending; Name: ; Notified At: ; Arrived At: Physician: Chief Stroke Resident; Name: ; Notified At: ; Arrived At: Physician: Stroke Resident; Name: ; Notified At: ; Arrived At: Physician: ED Attending; Name: ; Notified At: ; Arrived At: Physician: ED Resident; Name: ; Notified At: ; Arrived At: Historical: - Allergies: 17:50 Aspirin; ll1 17:50 Clonidine; ll1 17:50 Codeine; ll1 17:50 Demerol; ll1 17:50 Ibuprofen; ll1 17:50 Iodinated Contrast Media - IV Dye; ll1 17:50 Lisinopril; ll1 17:50 Niacin; ll1 17:50 Nitrofurantoin; ll1 17:50 nitrous oxide; ll1 17:50 vicoden; ll1 17:50 Zoloft; ll1 - PMHx: 17:50 PE; ADD/ADHD; Diabetes - NIDDM; UTI; Hyperlipidemia; TIA; Sleep Apnea; Kidney stones; ll1 Hypertension; Atrial Fib; CVA; acid reflux; - PSHx: 17:50 Tonsillectomy; Hysterectomy; Cholecystectomy; CABG; ll1 - Immunization history:: Flu vaccine is not up to date. - Social history:: Smoking status: Patient denies any tobacco usage or history of. Screenin:04 Abuse screen: Denies threats or abuse. Denies injuries from another. Nutritional wh screening: No deficits noted. Tuberculosis screening: No symptoms or risk factors identified. Fall Risk None identified. Assessment: 20:03 VAN Scoring: Arm Drift: Patients demonstrates NO arm weakness. Patient is VAN Negative. wh Visual Disturbance: No visual disturbance noted. Aphasia: No aphasia noted. Neglect: No neglect noted. 20:04 General: Appears in no apparent distress. Behavior is calm, cooperative, appropriate wh for age. Pain: Complains of pain in knee pain. Neuro: Level of Consciousness is awake, alert, obeys commands, Oriented to person, place, time, situation, Appropriate for age Fence Builder are equal bilaterally Moves all extremities. Speech is normal, Facial symmetry appears normal, Reports weakness generalized. Cardiovascular: Heart tones S1 S2. Respiratory: Airway is patent Respiratory effort is even, unlabored, Respiratory pattern is regular, symmetrical, Breath sounds are clear bilaterally. GI: Abdomen is flat, non-distended. : No signs and/or symptoms were reported regarding the genitourinary system. EENT: No signs and/or symptoms were reported regarding the EENT system. Derm: Skin is intact. Musculoskeletal: Circulation, motion, and sensation intact. 21:15 Reassessment: Patient appears in no apparent distress at this time. No changes from previously documented assessment. Patient and/or family updated on plan of care and expected duration. Pain level reassessed. Patient is alert, oriented x 3, equal unlabored respirations, skin warm/dry/pink. 22:30 Reassessment: Patient appears in no apparent distress at this time. Patient and/or family updated on plan of care and expected duration. Pain level reassessed. Patient is alert, oriented x 3, equal unlabored respirations, skin warm/dry/pink. Vital Signs: 17:50 BP 163 / 64; Pulse 80; Resp 17; Temp 97.6; Pulse Ox 99% ; Weight 54.43 kg; Height 5 ft. 1 2 in. (157.48 cm); Pain 3/10; 20:05 BP 166 / 60; Pulse 79; Resp 18; Pulse Ox 97% on R/A; wh 21:00 BP 154 / 68; Pulse 75; Resp 18; Pulse Ox 98% on R/A; wh 22:30 BP 131 / 60; Pulse 65; Resp 18; Pulse Ox 97% on R/A; wh 17:50 Body Mass Index 21.95 (54.43 kg, 157.48 cm) 1 NIH Stroke Scale Scores: 20:03 NIHSS Score: 0 ED Course: 17:41 Patient arrived in ED. mr 17:41 Elli Britt MD is Private Physician. mr 17:50 Arm band placed on. 1 17:52 Triage completed. 1 19:16 Chepe Oliver MD is Attending Physician. [facility] 19:18 Jessica Lucero, LAILA is Primary Nurse. 19:48 XRAY Chest (1 view) In Process Unspecified. EDMS 20:03 Inserted saline lock: 20 gauge in left antecubital area, using aseptic technique. Blood oe collected. 20:05 Patient has correct armband on for positive identification. Placed in gown. Bed in low wh position. Call light in reach. Side rails up X 1. monitoring and evaluation advisor on. Pulse ox on. NIBP on. 20:17 CT Head Brain wo Cont In Process Unspecified. EDMS 22:55 No provider procedures requiring assistance completed. IV discontinued, intact, wh bleeding controlled, No redness/swelling at site. Administered Medications: 19:58 Drug: NS 0.9% 500 ml Route: IV; Rate: bolus; Site: left antecubital; 21:32 Follow up: Response: No adverse reaction; IV Status: Completed infusion 20:00 Drug: Zofran (Ondansetron) 4 mg Route: IVP; Site: left antecubital; 21:32 Follow up: Response: No adverse reaction; Nausea is decreased Outcome: 22:39 Discharge ordered by . [facility] 22:55 Discharged to home via wheelchair, with family. 22:55 Condition: stable 22:55 Discharge instructions given to patient, family, Instructed on discharge instructions, follow up and referral plans. POC Demonstrated understanding of instructions, follow-up care, POC 22:55 Patient left the ED. NIH Stroke Scale - NIH Stroke Score Date: 08/24/2020 Time: 20:03 Total Score = 0 1a. Level of Consciousness (LOC) - 0(Alert) 1b. Level of Consciousness (LOC) (Year \T\ Age) - 0(Both) 1c. LOC Commands (Open \T\ Closes Eyes/Stick Welder) - 0(Both) 2. Best Gaze (Lateral Gaze Paresis) - 0(Normal) 3. Visual Field Loss - 0(No visual loss) 4. Facial Palsy - 0(Normal) 5a. Left Arm: Motor (10-second hold) - 0(No drift) 5b. Right Arm: Motor (10-second hold) - 0(No drift) 6a. Left Leg: Motor (5-second hold - always test supine) - 0(No drift) 6b. Right Leg: Motor (5-second hold - always test supine) - 0(No drift) 7. Limb Ataxia (finger/nose \T\ heel/felix - test with eyes open) - 0(Absent) 8. Sensory Loss (pinprick arms/legs/face) - 0(Normal) 9. Best Language: Aphasia (description/naming/reading) - 0(No aphasia) 10. Dysarthria (speech clarity - read or repeat words) - 0(Normal) 11. Extinction and Inattention (visual/tactile/auditory/spatial/personal) - 0(No abnormality) Initials: Signatures: Dispatcher [employer] JESSICAMarley GarciaFrancisco Winsy, RN RN Harpreet Sepulveda RN RN 1 Chepe Oliver MD MD 7
--- NOTE | 2020-08-24 22:40 | EDPHYS ---
Physician Documentation [facility] Name: Radha Lara Age: 85 yrs Sex: Female : 1935 Arrival Date: 08/24/2020 Time: 17:41 Bed 3 Private MD: Elli Britt ED Physician Chepe Oliver HPI: 08/24 19:55 This 85 yrs old Female presents to ER via Wheelchair with complaints of mh7 Weakness, Decreased Appetite, Ear Pain. 19:55 The patient presents to the emergency department with weakness of the entire body, mh7 generalized weakness, that is moderate. Onset: The symptoms/episode began/occurred 2 day(s) ago. Context: occurred at home, occurred while the patient was unknown. Associated signs and symptoms: Pertinent positives: nausea, Bilateral ear pain x 2 weeks, fatigue, Pertinent negatives: altered mental status, chills, dizziness, fever, headache, neck stiffness, paresthesias, seizure, syncope, near-syncope, blurred vision, double vision, visual field changes, loss of vision. Severity of symptoms: At their worst the symptoms were moderate yesterday, in the emergency department the symptoms have improved moderately. Patient's baseline:. Current symptoms: Generalized weakness/fatigue, decreased appetite. The patient has experienced similar episodes in the past, multiple times. Historical: - Allergies: 17:50 Aspirin; ll1 17:50 Clonidine; ll1 17:50 Codeine; ll1 17:50 Demerol; ll1 17:50 Ibuprofen; ll1 17:50 Iodinated Contrast Media - IV Dye; ll1 17:50 Lisinopril; ll1 17:50 Niacin; ll1 17:50 Nitrofurantoin; ll1 17:50 nitrous oxide; ll1 17:50 vicoden; ll1 17:50 Zoloft; ll1 - PMHx: 17:50 PE; ADD/ADHD; Diabetes - NIDDM; UTI; Hyperlipidemia; TIA; Sleep Apnea; Kidney stones; ll1 Hypertension; Atrial Fib; CVA; acid reflux; - PSHx: 17:50 Tonsillectomy; Hysterectomy; Cholecystectomy; CABG; ll1 - Immunization history:: Flu vaccine is not up to date. - Social history:: Smoking status: Patient denies any tobacco usage or history of. ROS: 19:55 Constitutional: Negative for fever, chills, and weight loss, Eyes: Negative for injury, mh7 pain, redness, and discharge, Neck: Negative for injury, pain, and swelling, Cardiovascular: Negative for chest pain, palpitations, and edema, Respiratory: Negative for shortness of breath, cough, wheezing, and pleuritic chest pain, Back: Negative for injury and pain. 19:55 : Negative for injury, bleeding, discharge, and swelling, MS/Extremity: Negative for injury and deformity, Skin: Negative for injury, rash, and discoloration, Psych: Negative for depression, anxiety, suicide ideation, homicidal ideation, and hallucinations, Allergy/Immunology: Negative for hives, rash, and allergies, Endocrine: Negative for neck swelling, polydipsia, polyuria, polyphagia, and marked weight changes, Hematologic/Lymphatic: Negative for swollen nodes, abnormal bleeding, and unusual bruising. 19:55 Abdomen/GI: Negative for abdominal pain, vomiting, diarrhea, constipation, abdominal cramps, abdominal distension, dysphagia, hematemesis, black/tarry stool, rectal pain, rectal bleeding, bowel incontinence, flatulence. 19:55 Neuro: Negative for altered mental status, dizziness, gait disturbance, headache, hearing loss, loss of consciousness, numbness, seizure activity, speech changes, syncope, near syncope, tingling, tinnitus, tremor, visual changes. Exam: 19:55 Constitutional: This is a well developed, well nourished patient who is awake, alert, mh7 and in no acute distress. Head/Face: Normocephalic, atraumatic. Eyes: Pupils equal round and reactive to light, extra-ocular motions intact. Lids and lashes normal. Conjunctiva and sclera are non-icteric and not injected. Cornea within normal limits. Periorbital areas with no swelling, redness, or edema. ENT: Nares patent. No nasal discharge, no septal abnormalities noted. Tympanic membranes are normal and external auditory canals are clear. Oropharynx with no redness, swelling, or masses, exudates, or evidence of obstruction, uvula midline. Mucous membranes moist. Neck: Trachea midline, no thyromegaly or masses palpated, and no cervical lymphadenopathy. Supple, full range of motion without nuchal rigidity, or vertebral point tenderness. No Meningismus. Chest/axilla: Normal chest wall appearance and motion. Nontender with no deformity. No lesions are appreciated. 19:55 Respiratory: Lungs have equal breath sounds bilaterally, clear to auscultation and percussion. No rales, rhonchi or wheezes noted. No increased work of breathing, no retractions or nasal flaring. Abdomen/GI: Soft, non-tender, with normal bowel sounds. No distension or tympany. No guarding or rebound. No evidence of tenderness throughout. Back: No spinal tenderness. No costovertebral tenderness. Full range of motion. Skin: Warm, dry with normal turgor. Normal color with no rashes, no lesions, and no evidence of cellulitis. MS/ Extremity: Pulses equal, no cyanosis. Neurovascular intact. Full, normal range of motion. Neuro: Awake and alert, GCS 15, oriented to person, place, time, and situation. Cranial nerves II-XII grossly intact. Motor strength 5/5 in all extremities. Sensory grossly intact. Cerebellar exam normal. Normal gait. Psych: Awake, alert, with orientation to person, place and time. Behavior, mood, and affect are within normal limits. 19:55 Cardiovascular: Rate: normal, Rhythm: irregularly irregular, Pulses: no pulse deficits are appreciated, Heart sounds: murmur, systolic, grade 2 over 6, heard in the aortic area, Edema: is not appreciated, JVD: is not appreciated. Vital Signs: 17:50 BP 163 / 64; Pulse 80; Resp 17; Temp 97.6; Pulse Ox 99% ; Weight 54.43 kg; Height 5 ft. ll1 2 in. (157.48 cm); Pain 3/10; 20:05 BP 166 / 60; Pulse 79; Resp 18; Pulse Ox 97% on R/A; wh 21:00 BP 154 / 68; Pulse 75; Resp 18; Pulse Ox 98% on R/A; wh 22:30 BP 131 / 60; Pulse 65; Resp 18; Pulse Ox 97% on R/A; wh 17:50 Body Mass Index 21.95 (54.43 kg, 157.48 cm) ll1 NIH Stroke Scale Scores: 20:03 NIHSS Score: 0 MDM: 22:36 Data reviewed: vital signs, nurses notes, old medical records, lab test result(s), [facility] cardiac enzymes, CBC, electrolytes, urinalysis, EKG, radiologic studies, CT scan, plain films. Data interpreted: Pulse oximetry: on room air is 97 %. Interpretation: normal. Counseling: I had a detailed discussion with the patient and/or guardian regarding: the historical points, exam findings, and any diagnostic results supporting the discharge/admit diagnosis, the presence of at least one elevated blood pressure reading (>120/80) during this emergency department visit, lab results, radiology results, the need for outpatient follow up, to return to the emergency department if symptoms worsen or persist or if there are any questions or concerns that arise at home. Response to treatment: the patient's symptoms have resolved after treatment, the patient's blood pressure is in an acceptable range, mental status has returned to baseline, the patient no longer shows bradycardia, the patient is not short of breath, the patient is not tachycardic, the patient's pain is gone, the patient's temperature has normalized. 22:39 Patient medically screened. [facility] 08/24 19:35 Order name: Basic Metabolic Panel; Complete Time: 20:49 [facility] 08/24 19:35 Order name: CBC with Diff; Complete Time: 20:49 [facility] 08/24 19:35 Order name: LFT's; Complete Time: 20:49 [facility] 08/24 19:35 Order name: Magnesium; Complete Time: 20:49 [facility] 08/24 19:35 Order name: NT PRO-BNP; Complete Time: 20:49 [facility] 08/24 19:35 Order name: PT-INR; Complete Time: 20:49 [facility] 08/24 19:35 Order name: Troponin (emerg Dept Use Only); Complete Time: 20:49 [facility] 08/24 19:35 Order name: XRAY Chest (1 view); Complete Time: 20:24 [facility] 08/24 19:35 Order name: Lipase; Complete Time: 20:49 [facility] 08/24 19:35 Order name: CT Head Brain wo Cont; Complete Time: 20:49 [facility] 08/24 21:32 Order name: Urine Dipstick--Ancillary (enter results); Complete Time: 22:07 em 08/24 22:18 Order name: COVID-19/FLU A+B; Complete Time: 22:33 EDMS 08/24 19:35 Order name: EKG; Complete Time: 19:36 [facility] 08/24 19:35 Order name: Cardiac monitoring; Complete Time: 20: [facility] 08/24 19:35 Order name: EKG - Nurse/Tech; Complete Time: 20: [facility] 08/24 19:35 Order name: IV Saline Lock; Complete Time: 20: [facility] 08/24 19:35 Order name: Labs collected and sent; Complete Time: 20: [facility] 08/24 19:35 Order name: O2 Per Protocol; Complete Time: 20: [facility] 08/24 19:35 Order name: O2 Sat Monitoring; Complete Time: 20: [facility] 08/24 19:35 Order name: Urine Dipstick-Ancillary (obtain specimen); Complete Time: 21:32 7 Administered Medications: 19:58 Drug: NS 0.9% 500 ml Route: IV; Rate: bolus; Site: left antecubital; 21:32 Follow up: Response: No adverse reaction; IV Status: Completed infusion 20:00 Drug: Zofran (Ondansetron) 4 mg Route: IVP; Site: left antecubital; 21:32 Follow up: Response: No adverse reaction; Nausea is decreased Disposition: 08/24/20 22:39 Discharged to Home. Impression: Generalized Weakness, Decreased Appetite, Fatigue, Otalgia, bilateral. - Condition is Stable. - Discharge Instructions: Fatigue, Weakness, [id number]. - Medication Reconciliation Form, Thank You Letter, Antibiotic Education, Prescription Opioid Use form. - Follow up: Private Physician; When: 1 - 2 days; Reason: Worsening of condition, Recheck today's complaints, Continuance of care, Re-evaluation by your physician. - Problem is an acute exacerbation. - Symptoms have improved. NIH Stroke Scale - NIH Stroke Score Date: 08/24/2020 Time: 20:03 Total Score = 0 1a. Level of Consciousness (LOC) - 0(Alert) 1b. Level of Consciousness (LOC) (Year \T\ Age) - 0(Both) 1c. LOC Commands (Open \T\ Closes Eyes/[employer] Sales Representative) - 0(Both) 2. Best Gaze (Lateral Gaze Paresis) - 0(Normal) 3. Visual Field Loss - 0(No visual loss) 4. Facial Palsy - 0(Normal) 5a. Left Arm: Motor (10-second hold) - 0(No drift) 5b. Right Arm: Motor (10-second hold) - 0(No drift) 6a. Left Leg: Motor (5-second hold - always test supine) - 0(No drift) 6b. Right Leg: Motor (5-second hold - always test supine) - 0(No drift) 7. Limb Ataxia (finger/nose \T\ heel/felix - test with eyes open) - 0(Absent) 8. Sensory Loss (pinprick arms/legs/face) - 0(Normal) 9. Best Language: Aphasia (description/naming/reading) - 0(No aphasia) 10. Dysarthria (speech clarity - read or repeat words) - 0(Normal) 11. Extinction and Inattention (visual/tactile/auditory/spatial/personal) - 0(No abnormality) Initials: Signatures: Dispatcher [employer] [facility] Jessica Lucero RN LAILA Harpreet Sepulveda RN RN ll1 Chepe Oliver MD MD 7 Corrections: (The following items were deleted from the chart) 21:21 20:15 Influenza Screen (A \T\ B)+[id number].LAB.BRZ ordered. [facility] 22:41 22:39 08/24/2020 22:39 Discharged to Home. Impression: Generalized Weakness; 7 Decreased Appetite; Fatigue. Condition is Stable. Forms are Medication Reconciliation Form, Thank You Letter, Antibiotic Education, Prescription Opioid Use. Follow up: Private Physician; When: 1 - 2 days; Reason: Worsening of condition, Recheck today's complaints, Continuance of care, Re-evaluation by your physician. Problem is an acute exacerbation. Symptoms have improved. [facility] 22:55 22:41 08/24/2020 22:39 Discharged to Home. Impression: Generalized Weakness; wh Decreased Appetite; Fatigue; Otalgia, bilateral. Condition is Stable. Discharge Instructions: Fatigue, Weakness, [place]-pr-Hcyu. Forms are Medication Reconciliation Form, Thank You Letter, Antibiotic Education, Prescription Opioid Use. Follow up: Private Physician; When: 1 - 2 days; Reason: Worsening of condition, Recheck today's complaints, Continuance of care, Re-evaluation by your physician. Problem is an acute exacerbation. Symptoms have improved. [facility]
[2020-08-24 23:16] VITALS: TEMP 97.6
[2020-08-24 23:20] VITALS: BP 131/60; O2SAT 97
--- NOTE | 2020-08-25 08:18 | EKG ---
Test Date: 2020-08-24 Test Time: 19:45:04 Binding Cutter: KIMI MEASUREMENT RESULTS: Intervals: Rate: 73 [place]: QRSD: 96 QT: 394 QTc: 434 [place]: P: AK: QRS: 22 T: 156 INTERPRETIVE STATEMENTS: Atrial fibrillation with a competing junctional pacemaker with premature ventricular or aberrantly conducted complexes Anterior infarct, age undetermined ST & T wave abnormality, consider lateral ischemia or digitalis effect Abnormal ECG Compared to ECG 07/14/2020 15:33:13 ST (T wave) deviation now present Possible ischemia now present Myocardial infarct finding still present Electronically Signed On 08-25-20 08:17:37 LONGWALL SHEARER OPERATOR by Jass Lance
== END 2020-08-24 22:55 | disposition home or self-care (01) ==
LOC: ER 17:37
DX: R53.83 Other fatigue (principal); R63.0 Anorexia; H92.03 Otalgia, bilateral; Z88.6 Allergy status to analgesic agent; Z88.8 Allergy status to other drugs, medicaments and biological substances; Z91.09 Other allergy status, other than to drugs and biological substances; Z95.1 Presence of aortocoronary bypass graft; Z20.822 Contact with and (suspected) exposure to COVID-19
CPT/HCPCS: 93005; 85025; 80048; 36415; 83735; 85610; 80076; 81003; 84484; 83690; 83880; 0240U; 70450; 71045; J7040; J2405; 96361; 96374; 99284

== ENCOUNTER 2020-10-18 16:34 | Emergency (ER) | payer OTHER ==
[2020-10-18 18:30] LABS: Absolute Lymphocytes (CBC) 2.4 K/uL (0.7-4.9); Basophils % 0.4 % (0-1.3); Lymphocytes % 37.2 % (15.3-44.8); MPV 8.2 fL (7.6-11.3); Protime INR 1.13; RBC Red Blood Cell Count 4.03 M/uL (3.86-4.86)
[2020-10-18 18:41] LABS: ALT/SGPT 31 U/L (12-78); AST/SGOT 20 U/L (15-37); Albumin 3.6 g/dL (3.4-5.0); Alkaline Phosphatase 101 U/L (45-117); BUN Blood Urea Nitrogen 10 mg/dL (7-18); Bicarbonate 27 mmol/L (21-32); Bilirubin Direct 0.2 mg/dL (0-0.2); Bilirubin Total 0.6 mg/dL (0.2-1.0); Glucose Level 141 mg/dL (74-106); Magnesium 2.1 mg/dL (1.8-2.4); Protein, Total 7.3 g/dL (6.4-8.2); Sodium Level 137 mmol/L (136-145); Troponin (Emerg Dept Use Only) < 0.02 ng/mL (0.0-0.045)
[2020-10-18] MEDS ORDERED: NA CHLORIDE 0.9% 250 ML ONE (19:02)
[2020-10-18 19:14] LABS: Urine Bacteria <20 /HPF (<20); Urine RBC <5 /HPF (NONE SEEN)
--- NOTE | 2020-10-18 19:25 | RAD REPORT ---
EXAM DESCRIPTION: Diane Single View10/18/2020 5:32 pm CLINICAL HISTORY: Nausea and weakness COMPARISON: July 2020 FINDINGS: The lungs appear clear of acute infiltrate. The heart is mildly to moderately enlarged. Postsurgical changes involve the chest. The aorta is tortuous/ectatic IMPRESSION: No acute abnormalities displayed
--- NOTE | 2020-10-18 19:59 | ER ---
Nurse's Notes [facility] Name: Radha Lara Age: 85 yrs Sex: Female : 1935 Arrival Date: 10/18/2020 Time: 16:38 Bed 19 Private MD: Elli Britt Diagnosis: Adverse effect of other viral vaccines;Malaise and fatigue;Nausea Presentation: 10/18 16:45 Chief complaint: Patient states: Had Lukasz \T\Lukasz vaccine 10/14. Started to feel bad ll1 with nausea, fatigue, weakness since 10/16. No fever. + nausea/slight vomiting, loose stool. Coronavirus screen: Client denies travel out of the [place] in the last 14 days. congestion, cough unrelated to allergies, fatigue, muscle pain, nausea, vomiting. Client presents with at least one sign or symptom that may indicate coronavirus-19. Standard/surgical mask placed on the client. Ebola Screen: Patient denies travel to an Ebola-affected area in the 21 days before illness onset. No acute neurological deficit is noted. Initial Sepsis Screen: Does the patient meet any 2 criteria? No. Patient's initial sepsis screen is negative. Does the patient have a suspected source of infection? Yes: Productive cough/pneumonia. Risk Assessment: Do you want to hurt yourself or someone else? Patient reports no desire to harm self or others. Onset of symptoms was October 16, 2020. 16:45 Method Of Arrival: Wheelchair ll1 16:45 Acuity: YOLANDE 3 ll1 Stroke Activation: Symptom onset > 6 hours Physician: Stroke Attending; Name: ; Notified At: ; Arrived At: Physician: Chief Stroke Resident; Name: ; Notified At: ; Arrived At: Physician: Stroke Resident; Name: ; Notified At: ; Arrived At: Physician: ED Attending; Name: ; Notified At: ; Arrived At: Physician: ED Resident; Name: ; Notified At: ; Arrived At: Historical: - Allergies: 16:45 Aspirin; ll1 16:45 Clonidine; ll1 16:45 Codeine; ll1 16:45 Demerol; ll1 16:45 Ibuprofen; ll1 16:45 Iodinated Contrast Media - IV Dye; ll1 16:45 Lisinopril; ll1 16:45 Niacin; ll1 16:45 Nitrofurantoin; ll1 16:45 nitrous oxide; ll1 16:45 vicoden; ll1 16:45 Zoloft; ll1 - PMHx: 16:45 CVA; Hypertension; Kidney stones; Sleep Apnea; TIA; acid reflux; PE; Hyperlipidemia; ll1 Diabetes - NIDDM; UTI; ADD/ADHD; Atrial Fib; - PSHx: 16:45 Hysterectomy; Tonsillectomy; Cholecystectomy; CABG; ll1 - Immunization history:: Client reports receiving the 1st dose of the Covid vaccine, Flu vaccine is not up to date. - Social history:: Smoking status: Patient denies any tobacco usage or history of. Screenin:58 Abuse screen: Denies threats or abuse. Nutritional screening: No deficits noted. bw Tuberculosis screening: No symptoms or risk factors identified. Fall Risk None identified. Assessment: 16:56 General: Appears in no apparent distress. uncomfortable, Behavior is calm, cooperative, bw appropriate for age. Pain: Complains of pain in generalized weakness. Neuro: No deficits noted. Reports weakness in generalized. 16:58 Cardiovascular: hypertension. Respiratory: No deficits noted. GI: Reports nausea, since 10/16/2020. : No signs and/or symptoms were reported regarding the genitourinary system. EENT: No signs and/or symptoms were reported regarding the EENT system. 18:36 Reassessment: Patient appears in no apparent distress at this time. Patient and/or bw family updated on plan of care and expected duration. Pain level reassessed. Patient is alert, oriented x 3, equal unlabored respirations, skin warm/dry/pink. 19:50 Reassessment: Patient appears in no apparent distress at this time. Patient and/or family updated on plan of care and expected duration. Pain level reassessed. Patient is alert, oriented x 3, equal unlabored respirations, skin warm/dry/pink. Given cup of water for PO challenge Patient states feeling better. Patient states symptoms have improved. Vital Signs: 16:45 BP 158 / 67; Pulse 88; Resp 17; Temp 98.3; Pulse Ox 96% on R/A; Weight 55.34 kg; Height ll1 5 ft. 2 in. (157.48 cm); Pain 4/10; 18:36 BP 155 / 64; Pulse 87; Resp 18; Pulse Ox 95% on R/A; bw 19:00 BP 172 / 60; Pulse 79; Resp 16; Pulse Ox 95% ; sf 19:30 BP 162 / 53; Pulse 74; Resp 16; Pulse Ox 95% ; sf 16:45 Body Mass Index 22.31 (55.34 kg, 157.48 cm) ll1 ED Course: 16:38 Patient arrived in ED. mr 16:38 Elli Britt MD is Private Physician. mr 16:45 Arm band placed on. ll1 16:48 Triage completed. ll1 16:49 Hari Lara PA is PHCP. cp 16:49 Chris Hammond MD is Attending Physician. cp 16:52 Chiquita Taylor, RN is Primary Nurse. bw 16:58 Patient has correct armband on for positive identification. Bed in low position. Call bw light in reach. Side rails up X 1. Pulse ox on. NIBP on. Warm blanket given. 16:58 No provider procedures requiring assistance completed. bw 17:32 XRAY Chest (1 view) In Process Unspecified. EDMS 18:36 Inserted saline lock: 22 gauge in right forearm, using aseptic technique. bw 19:03 Urine Dipstick--Ancillary (enter results) Sent. sf 19:05 Primary Nurse role handed off by Chiquita Taylor, LAILA sf 19:05 Fran Marvin, LAILA is Primary Nurse. sf 20:14 IV discontinued, intact, bleeding controlled, No redness/swelling at site. Pressure sf dressing applied. Administered Medications: 18:50 Drug: NS 0.9% 250 ml Route: IV; Rate: bolus; Site: right forearm; bw 19:40 Follow up: IV Status: Completed infusion; IV Intake: 250ml sf 20:03 Follow up: Response: No adverse reaction sf Intake: 19:40 IV: 250ml; Total: 250ml. sf Outcome: 19:58 Discharge ordered by MD. cp 20:15 Discharged to home ambulatory. sf 20:15 Condition: stable 20:15 Discharge instructions given to patient, Instructed on discharge instructions, follow up and referral plans. medication usage, Demonstrated understanding of instructions, follow-up care, medications, Prescriptions given X 1. 20:23 Patient left the ED. mw2 Signatures: Dispatcher [employer] EDAR Marley Hanna mr Hari Lara PA PA cp Chacha Roper mw2 Harpreet Sepulveda, RN RN ll1 Fran Marvin, RN RN sf Taylor, LAILA Porras RN bw
--- NOTE | 2020-10-18 19:59 | EDPHYS ---
Physician Documentation [facility] Name: Radha Lara Age: 85 yrs Sex: Female : 1935 Arrival Date: 10/18/2020 Time: 16:38 Bed 19 Private MD: Elli Britt ED Physician Chris Hammond HPI: 10/18 17:10 This 85 yrs old Female presents to ER via Wheelchair with complaints of cp Nausea, Fatigue. 17:10 The patient presents to the emergency department with weakness of the entire body, cp generalized weakness, that is mild. 17:20 Onset: The symptoms/episode began/occurred 2 day(s) ago. cp 17:20 Possible causes: recent vaccination: Lukasz [employer] Luk[employer] COVID vaccine on 10/14/2020. cp Associated signs and symptoms: Pertinent negatives: altered mental status, fever, headache, neck stiffness. Associated signs and symptoms: Pertinent positives: nausea, loose stools, fatigue, general weakness, Pertinent negatives: abdominal pain, fever, chest pain. Patient's baseline: Neuro: alert and fully oriented, Motor: no deficits, Ambulation: walks without assistance, Speech: normal. Historical: - Allergies: 16:45 Aspirin; ll1 16:45 Clonidine; ll1 16:45 Codeine; ll1 16:45 Demerol; ll1 16:45 Ibuprofen; ll1 16:45 Iodinated Contrast Media - IV Dye; ll1 16:45 Lisinopril; ll1 16:45 Niacin; ll1 16:45 Nitrofurantoin; ll1 16:45 nitrous oxide; ll1 16:45 vicoden; ll1 16:45 Zoloft; ll1 - PMHx: 16:45 CVA; Hypertension; Kidney stones; Sleep Apnea; TIA; acid reflux; PE; Hyperlipidemia; ll1 Diabetes - NIDDM; UTI; ADD/ADHD; Atrial Fib; - PSHx: 16:45 Hysterectomy; Tonsillectomy; Cholecystectomy; CABG; ll1 - Immunization history:: Client reports receiving the 1st dose of the Covid vaccine, Flu vaccine is not up to date. - Social history:: Smoking status: Patient denies any tobacco usage or history of. ROS: 17:15 Constitutional: Positive for fatigue, Negative for body aches, chills, fever, poor PO cp intake. 17:15 Eyes: Negative for injury, pain, redness, and discharge. cp 17:15 ENT: Negative for ear pain, sore throat, difficulty swallowing, difficulty handling secretions. 17:15 Cardiovascular: Negative for chest pain, edema, palpitations. 17:15 Respiratory: Negative for cough, shortness of breath, wheezing. 17:15 Abdomen/GI: Positive for nausea, loose stools, Negative for vomiting, constipation, anorexia, black/tarry stool, rectal bleeding. 17:15 : Negative for urinary symptoms. 17:15 Neuro: Positive for general weakness, Negative for altered mental status, dizziness, headache, syncope. 17:15 All other systems are negative. Exam: 17:20 Constitutional: The patient appears in no acute distress, alert, awake, cp non-diaphoretic, non-toxic, well developed, well nourished. 17:20 Head/Face: Normocephalic, atraumatic. cp 17:20 Eyes: Periorbital structures: appear normal, Pupils: equal, round, and reactive to light and accomodation, Extraocular movements: intact throughout, Conjunctiva: normal, no exudate, no injection, Sclera: no appreciated abnormality, Lids and lashes: appear normal, bilaterally. 17:20 ENT: External ear(s): are unremarkable, Nose: is normal, Mouth: Lips: moist, Oral mucosa: moist, Posterior pharynx: Airway: no evidence of obstruction, patent. 17:20 Neck: ROM/movement: is normal, is supple, without pain, no range of motions limitations, no meningismus. 17:20 Chest/axilla: Inspection: normal, Palpation: is normal, no crepitus, no tenderness. 17:20 Cardiovascular: Rate: normal, Rhythm: irregular, Edema: is not appreciated, JVD: is not appreciated. 17:20 Respiratory: the patient does not display signs of respiratory distress, Respirations: normal, no use of accessory muscles, no retractions, labored breathing, is not present, Breath sounds: are clear throughout, no decreased breath sounds, no stridor, no wheezing. 17:20 Abdomen/GI: Inspection: abdomen appears normal, Bowel sounds: active, all quadrants, Palpation: abdomen is soft and non-tender, in all quadrants, rebound tenderness, is not appreciated, voluntary guarding, is not appreciated, involuntary guarding, is not appreciated. 17:20 Back: CVA tenderness, is absent. 17:20 Skin: cellulitis, is not appreciated, no rash present. 17:20 Neuro: Orientation: to person, place \T\ time. Mentation: is normal, Cerebellar function: is grossly normal, Motor: moves all fours, strength is normal, Sensation: is normal. 19:15 ECG was reviewed by the Attending Physician. cp Vital Signs: 16:45 BP 158 / 67; Pulse 88; Resp 17; Temp 98.3; Pulse Ox 96% on R/A; Weight 55.34 kg; Height ll1 5 ft. 2 in. (157.48 cm); Pain 4/10; 18:36 BP 155 / 64; Pulse 87; Resp 18; Pulse Ox 95% on R/A; bw 19:00 BP 172 / 60; Pulse 79; Resp 16; Pulse Ox 95% ; sf 19:30 BP 162 / 53; Pulse 74; Resp 16; Pulse Ox 95% ; sf 16:45 Body Mass Index 22.31 (55.34 kg, 157.48 cm) ll1 MDM: 16:55 Patient medically screened. cp 18:00 Differential diagnosis: gastritis, viral gastroenteritis, gastroenteritis, dehydration, cp UTI, electrolyte abnormality. 19:55 Data reviewed: vital signs, nurses notes, lab test result(s), EKG, radiologic studies, cp plain films. 19:55 Test interpretation: by ED physician or midlevel provider: ECG, plain radiologic cp studies. Counseling: I had a detailed discussion with the patient and/or guardian regarding: the historical points, exam findings, and any diagnostic results supporting the discharge/admit diagnosis, lab results, radiology results, to return to the emergency department if symptoms worsen or persist or if there are any questions or concerns that arise at home. 19:57 Response to treatment: Patient reports symptoms improved. Discussed results of labs, cp EKG and radiology studies. Will discharge to home for continued monitoring. 10/18 17:07 Order name: Basic Metabolic Panel; Complete Time: 18:57 cp 10/18 18:58 Interpretation: Normal except: GLUC 141; CRE 0.40. cp 10/18 17:07 Order name: CBC with Diff; Complete Time: 19:29 cp 10/18 17:07 Order name: LFT's; Complete Time: 18:57 cp 10/18 18:58 Interpretation: Normal except: GLOB 3.7; A/G 1.0. cp 10/18 17:07 Order name: Magnesium; Complete Time: 18:57 cp 10/18 17:07 Order name: PT-INR; Complete Time: 19:29 cp 10/18 19:29 Interpretation: Normal except: PT 13.0. cp 10/18 17:07 Order name: Troponin (emerg Dept Use Only); Complete Time: 18:57 cp 10/18 18:58 Interpretation: TROPED < 0.02; Reviewed. cp 10/18 17:07 Order name: XRAY Chest (1 view); Complete Time: 19:29 cp 10/18 17:07 Order name: EKG; Complete Time: 17:08 cp 10/18 17:07 Order name: Cardiac monitoring; Complete Time: 18:41 cp 10/18 17:07 Order name: EKG - Nurse/Tech; Complete Time: 19:51 cp 10/18 17:07 Order name: Urine Microscopic Only; Complete Time: 19:29 cp 10/18 18:49 Order name: Urine Dipstick--Ancillary (enter results) eb 10/18 18:49 Order name: Urine Dipstick-Ancillary EDMS 10/18 17:07 Order name: IV Saline Lock; Complete Time: 18:40 cp 10/18 17:07 Order name: Labs collected and sent; Complete Time: 18:40 cp 10/18 17:07 Order name: O2 Per Protocol; Complete Time: 18:40 cp 10/18 17:07 Order name: O2 Sat Monitoring; Complete Time: 18:40 cp 10/18 17:07 Order name: Cath; Complete Time: 18:40 cp 10/18 19:30 Order name: PO challenge; Complete Time: 19:59 cp EC:15 Rate is 76 beats/min. Rhythm is irregular. QRS interval is normal. QT interval is cp normal. Interpreted by me. Reviewed by me. Administered Medications: 18:50 Drug: NS 0.9% 250 ml Route: IV; Rate: bolus; Site: right forearm; bw 19:40 Follow up: IV Status: Completed infusion; IV Intake: 250ml sf 20:03 Follow up: Response: No adverse reaction sf Disposition: 10/19 07:06 Co-signature as Attending Physician, Chris Hammond MD. Chart complete. rn Disposition: 10/18/20 19:58 Discharged to Home. Impression: Adverse effect of other viral vaccines, Malaise and fatigue, Nausea. - Condition is Stable. - Discharge Instructions: Nausea, Adult, Weakness, Fatigue. - Prescriptions for Zofran 4 mg Oral Tablet - take 1 tablet by ORAL route every 12 hours As needed; 20 tablet. - Medication Reconciliation Form, Thank You Letter, Antibiotic Education, Prescription Opioid Use form. - Follow up: Private Physician; When: 1 - 2 days; Reason: Worsening of condition. Signatures: Dispatcher [employer] EDMS Chris Hammond MD MD rn Hari Lara PA PA cp Judson, Chacha mw2 Harpreet Sepulveda RN RN 1 Chiquita Taylor RN RN Fran Marvin RN sf Corrections: (The following items were deleted from the chart) 10/18 20:02 19:58 10/18/2020 19:58 Discharged to Home. Impression: Weakness. Condition is Stable. cp Forms are Medication Reconciliation Form, Thank You Letter, Antibiotic Education, Prescription Opioid Use. Follow up: Private Physician; When: 1 - 2 days; Reason: Worsening of condition. cp 20:23 20:02 10/18/2020 19:58 Discharged to Home. Impression: Adverse effect of other viral mw2 vaccines; Malaise and fatigue; Nausea. Condition is Stable. Discharge Instructions: Weakness. Forms are Medication Reconciliation Form, Thank You Letter, Antibiotic Education, Prescription Opioid Use. Follow up: Private Physician; When: 1 - 2 days; Reason: Worsening of condition. cp
[2020-10-18 20:57] LABS: Urine Blood NEGATIVE (Negative); Urine Glucose NEGATIVE (Negative); Urine Protein NEGATIVE (NEG); Urine pH 7.5 (5.0-7.0)
[2020-10-19 02:47] VITALS: TEMP 98.3
[2020-10-19 02:48] VITALS: O2SAT 95
[2020-10-19 02:50] VITALS: BP 162/53
--- NOTE | 2020-10-19 09:49 | EKG ---
Test Date: 2020-10-18 Test Time: 19:09:59 Knife Grinder: ANJALI MEASUREMENT RESULTS: Intervals: Rate: 76 VA: QRSD: 96 QT: 366 QTc: 411 [place]: P: VA: QRS: 45 T: 195 INTERPRETIVE STATEMENTS: Atrial fibrillation with premature ventricular or aberrantly conducted complexes Septal infarct, age undetermined Marked ST abnormality, possible inferior subendocardial injury Abnormal ECG Compared to ECG 08/24/2020 19:45:04 Possible ischemia no longer present Myocardial infarct finding still present ST (T wave) deviation still present Electronically Signed On 10-19-20 09:47:42 CDT by Jass Lance
== END 2020-10-18 20:23 | disposition home or self-care (01) ==
LOC: ER 16:34
DX: R53.81 Other malaise (principal); T50.B95A Adverse effect of other viral vaccines, initial encounter; R53.83 Other fatigue; I10 Essential (primary) hypertension; Z95.1 Presence of aortocoronary bypass graft; Z88.5 Allergy status to narcotic agent; Z88.6 Allergy status to analgesic agent; Z88.8 Allergy status to other drugs, medicaments and biological substances; Z91.041 Radiographic dye allergy status
CPT/HCPCS: 96365; 93005; 85025; 80048; 36415; 83735; 85610; 80076; 84484; 71045; 99284; J7050; 81003; 81015

== ENCOUNTER 2020-11-08 18:45 | Emergency (ER) | payer OTHER ==
--- OUTSIDE RECORDS SUMMARY | 2020-11-08 18:49 | XMS REPORT | Continuity of Care Document ---
:1935 Author Organization [facility] t Address [address] [place] [address] Care Team Providers Name Role Phone MIR MENDENHALL Attending Clinician Unavailable JAMAAL MEJIA Attending Clinician Unavailable MIR MENDENHALL Admitting Clinician Unavailable JAMAAL MEJIA Admitting Clinician Unavailable Payers Payer Name Policy Type Policy Number Effective Date Expiration Date S ource Problems Condition Condition Condition Status Onset Resolution Last Treating Co mments Source Name Details Category Date Date Treatment Clinician Date Hypercoagu Hypercoagu Problem Active 2019-07 [place] lability lability 1-24 Family state State 00:00: Practic 00 e Hypertensi Hypertensi Problem Active 2019-07 [place] ve heart ve Heart 0-29 Family disease Disease 00:00: Practic with with 00 e congestive Congestive heart Heart failure Failure Seizure Seizure Problem Active [place] disorder Disorder 7-28 Family 00:00: Practic 00 e 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 3-23 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 00:00: Practic 00 e Diabetes Diabetes Problem Active Eyad ge mellitus Mellitus 6-17 Family 00:00: Practic 00 e Hyperlipid Hyperlipid Problem Active [place] emia emia 6-17 Family 00:00: Practic e Atrial Atrial Problem Active [place] fibrillati Fibrillati 617 Fa castro on on 00:00: Practic e Gastroesop Gastroesop Problem Active V kimani hageal hageal 617 Family reflux Reflux 00:00: Practic disease Disease e Essential Essential Disease Active [facility] hypertensi [...] 00:00: Medica l attack) attack) 00 Center Expressive Expressive Disease Active [facility] aphasia aphasia 11-19 [facility] 00:[facility]: Medical 00 Center Allergies, Adverse Reactions, Alerts Allergy Allergy Status Severity Reaction(s) Onset Inactive Treating Comm ents Source Name Type Date Date Clinician sertrali DA Active [facility] ne 3-31 Clear 00:00: [facility] iodine DA Active [facility] 3-29 Clear 00:00: [facility] codeine DA Active [facility] 3-29 Clear 00:00: [facility] aspirin DA Active U [facility] 3-29 Clear 00:00: [facility] Aspirin Propensi Active palpitati [facility] ty to 4-28 ons [facility] - adverse 00:00: Medical reaction 00 Center s Codeine Propensi Active Confusion [facility] ty to 4-28 [facility] - adverse 00:00: Medical reaction 00 Center s Iodinate Propensi Active vomiting [facility] d ty to 11-19 [facility] - Contrast adverse 00:00: Medical Media reaction 00 Center s iodine DA Active U [facility] 8-04 Clear 00:00: [facility] codeine DA Active U [facility] 8-04 Clear 00:00: [facility] aspirin DA Active U [facility] 8-04 Clear 00:00: [facility] ASPIRIN DA Active U [facility] 7-30 Clear 00:00: [facility] CITRUS DA Active U [facility] FRUITS 7-30 Clear 00:00: [facility] CODEINE DA Active U [facility] 7-30 Clear 00:00: [facility] IVP DYE DA Active U [facility] 7-30 Clear 00:00: [facility] POLLEN DA Active U [facility] 7-30 Clear 00:00: [facility] TOMATOE DA Active U [facility] 7-30 Clear 00:00: [facility] Zoloft Adverse Active Info Not [facility] Reaction Available [facility] Macrodan Adverse Active Info Not [facility] tin Reaction Available [facility] Lisinopr Adverse Active Info Not [facility] il Reaction Available [facility] Aspirin Adverse Active Info Not [facility] Reaction Available [facility] Nitrous Adverse Active Info Not [facility] oxide Reaction Available [facility] Iodine Adverse Active Info Not [facility] contrast Reaction Available [facility] es - dye [facility] Vicodin Adverse Active Info Not [facility] Reaction Available [facility] Niacin Adverse Active Info Not [facility] Reaction Available [facility] Aspirin Allergy Active Mild to Tachycardia Vi [...] age to Family substanc Practic e e Social History Social Habit Start Date Stop Date Quantity Comments Source Sex Assigned At [facility] Tobacco use and 2019-04-30 2019-04-30 Never used WILMER Dorsey kes - exposure 00:00:00 00:00:00 [facility] Smoking Status Start Date Stop Date Source [facility] Medications Ordered Filled Start Stop Current Ordering Indication Dosage Frequency Signature Comments Components Source Medication Medication Date Date Medication? Clinician (SIG) Name Name Sodium Sodium 2020- No Na Britt [address] Chloride Chloride 8-17 02-12 [facility] - 00:00: 00:00 Memoria 00 :[address] [facility] [place] Yes Na Britt [address] [facility] Sodium Sodium 3-20 [facility] - 00:00: Memoria [address] [facility] carvedilol 2018-07 Yes 25mg Take [...] times Center daily. hydrALAZINE 2018-07 Yes 100mg [id number] Take [address] [facility] [address] (APRESOLINE 0-08 [id number] mg by L ukes - ) 100 [...] 40 MG 16:46: daily. Medical capsule 41 [place] valsartan 2018-07 Yes 160mg QD Take [address] (DIOVAN) 0-08 mg by [facility] - 160 MG 16:46: mouth Medical tablet 41 daily. Center verapamil 2018-07 Yes 240mg QD Take [address] [facility] [address] (VERELAN 0-08 mg by [facility] - PM) 240 MG 16:46: mouth Medica l 24 hr 41 nightly. [place] capsule cyanocobala 2018-07 Yes 1000ug QD Take 1,[address] [facility] [facility] min 0-08 mcg by [facility] - (VITAMIN 16:46: mouth Medical B-12) 1000 41 daily. [place] MCG tablet cholecalcif 2018-07 Yes 1000U QD Take 1,[address] roly, 0-08 Units by [facility] - vitamin D3, 16:46: mouth Medic al 1,000 unit 41 daily. [place] capsule clopidogrel 2018-07 Yes 75mg QD Take [address] [facility] (PLAVIX) 75 0-08 by mouth Luke s - mg tablet 16:46: daily. Medica l 41 [place] sertraline 2018-07 Yes 25mg QD Take [address] (ZOLOFT) 25 0-08 by mouth Luke s - MG tablet 16:46: daily. Medica l 41 [place] cranberry 2018-07 Yes 4200mg Q.5D Take 4,[address] conc-ascorb 0-08 mg by [facility] - ic acid 16:46: mouth 2 Medical (CRANBERRY 41 (two) Center CONCENTRATE times ) 140-100 daily. mg Cap Lactobac 2018-07 Yes 1{tbl} QD Take 1 [facility] 42-Bifid 0-08 tablet by [facility] - 8-colost-FO 16:46: mouth Medic al S 41 daily. [place] (PROBIOTIC PLUS COLOSTRUM) 30-500-50 mg PwPk multivit-mi 2018-07 Yes 1{tbl} QD Take [address] n-ferrous 0-08 tablet by [facility] - fumarate 16:46: mouth Medical (MULTI 41 daily. [place] VITAMIN) 9 mg iron/15 mL Liqd irbesartan Yes 150mg QD Take [address] (AVAPRO) 7-28 mg by [facility] - 150 MG 00:00: mouth Medical tablet 00 daily. [place] amLODIPine Yes 10mg QD Take [address] (NORVASC) 7-28 by mouth [facility] - 10 MG 00:00: daily. Medical tablet 00 [place] Estradiol Estradiol Yes Na Britt as [facility] 7-22 directed [facility] - 00:00: Memoria [address] [facility] HydrALAZINE HydrALAZINE Yes Na Britt [address] [facility] [address] HCl HCl 5-14 with food [facility] - 00:00: Memoria [facility] amlodipine amlodipine No 1 Q1D amlodipine [facility] 5 mg tablet 5 mg tablet 5 mg F amily Take 1 Take 1 tablet Practic tablet tablet Take 1 e every day every day tablet by oral by oral every day route. route. by oral route. carvedilol carvedilol No 1 BID carvedilol [facility] 25 mg 25 mg 25 mg Family tablet Take tablet Take tablet Practic 1 tablet 1 tablet Take 1 e twice a day twice a day tablet by oral by oral twice a route. route. day by oral route. clopidogrel clopidogrel No 1 Q1D clopidogre [facility] 75 mg 75 mg l 75 [...] oral day by route. route. oral route. Tylenol Tylenol Yes Na Britt not [facility] Arthritis Arthritis defined Cyndi kes - Pain Pain [facility] Methenamine Methenamine Yes Na Britt [address] Hippurate Hippurate [facility] - [facility] hydralazine hydralazine No 1 TID hydralazin [facility] 100 mg 100 mg e 100 mg Family tablet Take tablet Take tablet Practic 1 tablet 3 1 tablet 3 Take 1 e times a day times a day tablet 3 by oral by oral times a route. route. day by oral route. Irbesartan Irbesartan Yes Na Britt [address] [facility] Vitamin Vitamin Yes Na Britt not [facility] B-12 B-12 defined [facility] Crestor Crestor Yes Na Britt [address] [facility] [facility] ONCE A DAY [facility] irbesartan irbesartan No 1 Q1D irbesartan [place] 150 mg 150 mg 150 mg Family tablet Take tablet Take tablet Practic 1 tablet 1 tablet Take 1 e every day every day tablet by oral by oral every day route. route. by oral route. Metformin Metformin Yes Na Britt [address] [facility] HCl HCl with meals [facility] ent [facility] Vitamin E Vitamin E Yes Na Britt not [facility] defined [facility] Omeprazole Omeprazole Yes Na Britt TAKE [address] [facility] CAPSULE BY [facility] - MOUTH [facility] EVERY DAY [facility] [employer] ent [facility] metformin metformin No 1 BID metformin [facility] 500 mg 500 mg 500 mg Family tablet Take tablet Take tablet Practic 1 tablet 1 tablet Take 1 e twice a day twice a day tablet by oral by oral twice a route. route. day by oral route. Amlodipine Amlodipine Yes Na Britt [address] [facility] Besylate Besylate [facility] ent [facility] Eliquis Eliquis Yes Na Britt [address] [facility] Multivitami Multivitami Yes Na Britt not [facility] n n defined [facility] omeprazole omeprazole No 1capsul Q1D omeprazole [facility] 40 mg 40 mg e(s) 40 mg Family capsule,del capsule,del capsule,de Practic ayed ayed layed e release release release Take 1 Take 1 Take 1 capsule capsule capsule every day every day every day by oral by oral by oral route. route. route. Probiotic Probiotic Yes Na Britt not [facility] defined [facility] Trimethopri Trimethopri Yes Na Britt [address] [facility] [facility] m m [facility] ent [facility] Magnesium Magnesium Yes Na Britt not [facility] defined [facility] ent [facility] Vimpat 50 Vimpat 50 No 1 Q1D Vimpat 50 Village mg tablet mg tablet mg tablet Family Take 1 Take 1 Take 1 Practic tablet tablet tablet e every day every day every day by oral by oral by oral route. route. route. Levetiracet Levetiracet Yes Na Britt [address] [facility] am am [facility] Coreg Coreg Yes Na Britt not [facility] defined [facility] Metformin Metformin Yes Na Britt TAKE [address] [facility] [facility] HCl HCl TABLET BY [facility] - MOUTH Memoria TWICE l DAILY [facility] Rosuvastati Rosuvastati Yes Na Britt TAKE [address] [facility] n Calcium n Calcium TABLET BY [facility] - MOUTH Memoria DAILY l [facility] Sertraline Sertraline Yes Na Britt [address] HCl HCl [facility] Vitamin D3 Vitamin D3 Yes Na Britt [address] [facility] l [facility] Cyanocobala Cyanocobala Yes Na Britt [address] min min [facility] Omeprazole Omeprazole Yes Na Britt [address] ONCE A DAY [facility] Plavix Plavix Yes Na Britt [address] [facility] kes - Memoria [facility] Carvedilol Carvedilol Yes Na Britt as [facility] directed kes - Memoria [facility] Levothyroxi Levothyroxi Yes Na Britt [address] [facility] ne Sodium ne Sodium in the Cristian es - morning on Memoria an empty l stomach [facility] Sodium Sodium Yes Na Britt TAKE [address] [facility] Chloride Chloride TABLET in Cyndi kes - AM and 1 Memoria tab EVERY l 6 HOURS [facility] Cranberry Cranberry Yes Na Britt [address] Concentrate Concentrate with meals [facility] Vital Signs Vital Name Observation Time Observation Value Comments Source Height 2020-02-19 00:00:00 62 [in_i] [facility] Height 2019-10-16 00:00:00 62 [in_i] [facility] BMI (Body Mass 2019-10-16 00:00:00 23.8 kg/m2 Ramirez tao Family Index) Practice Body Weight 2019-10-16 00:00:00 130 [lb_av] [facility] Procedures This patient has no known procedures. Plan of Care Planned Activity Planned Date Details Comments Source Future Scheduled Test 2020-03-[address] [facility] - 00:[facility]:00 (#1) [code = Medical Center INFLUENZA VACCINE (#1)] Future Scheduled Test 2019-10-[address] [facility] - 00:[facility]:00 measurement Medical Center (procedure) [code = 56296875] Future Scheduled Test 2019-07-[address] [facility] - 00:00:00 WELLNESS (YEAR 2 or Medical Center FIRST YEAR if no IPPE) [code = MEDICARE ANNUAL WELLNESS (YEAR 2 or FIRST YEAR if no IPPE)] Future Scheduled Test 2001 PNEUMOCOCCAL 65+ YRS [facility] - 00:00:00 (1 of 1 - Medical Center [id number]) [code = PNEUMOCOCCAL 65+ YRS (1 of 1 - [id number] PCV13)] Future Scheduled Test 1946 DIABETIC EYE EXAM [facility] - 00:00:00 [code = DIABETIC EYE Medical Center EXAM] Future Scheduled Test 1946 [facility] - [facility] examination Medical Center (regime/therapy) [code = 337290115] Future Scheduled Test 1946 Urine screening for [facility] - 00:00:00 protein (procedure) Medical Center [code = 099144792] Future Appointment 2021-02-21 Reese Beckerage Family 00:00:00 [id number]; [address], [place] [address] Encounters Start End Encounter Admission Attending Care Care Encounter Source Date/Time Date/Time Type Type Clinicians Facility Department ID 2020-10-14 2020-10-14 Outpatient [facility] [id number] [facility] 2020-09-15 2020-09-15 Out[facility] [id number] [facility] 2020-09-05 2020-09-05 [facility] [id number] [facility] 2020-08-22 2020-08-22 Outpatient [facility] [id number] [facility] 2020-08-21 2020-08-[address] [facility] [place] - [id number] V illage 00:00:00 [facility]:00:[facility] eliana aguilar HORSE TREKKING GUIDE: Arlet - Pracautumn max [id number] [email or web address] [facility], [address], [place] [address] , Ph. 2020-08-06 2020-08-06 Outpatient [facility] [id number] [facility] 2020-07-30 2020-07-30 Outpatient [facility] [id number] [facility] 2020-07-29 2020-07-29 Outpatient [facility] [id number] [facility] 2020-07-29 2020-07-29 Outpatient [facility] [id number] [facility] 2020-07-28 2020-07-28 Outpatient [facility] [id number] [facility] 2020-06-17 2020-06-17 Outpatient [facility] [id number] [facility] 2020-05-22 2020-05-22 Outpatient [facility] [id number] [facility] 2020-04-23 2020-04-23 Outpatient [facility] [id number] [facility] 2020-04-16 2020-04-16 Outpatient [facility] [id number] [facility] 2020-03-26 2020-03-26 [facility] [id number] 11:20:00 11:20:00 t [place] [address] - Drive [facility] l Medicine Outpati ent Clinics 2020-03-07 2020-03-07 [facility] [id number] [address] 14:44:00 14:44:00 t [place] [address] - Drive [facility] Medicine Outpati ent Clinics 2020-03-05 2020-03-05 [facility] [id number] 11:00:00 11:00:00 t Specialty/U Cyndi kes - Specialty rology Memori a /Urology Clinic l Clinic Outpati ent Clinics 2020-03-03 2020-03-03 [facility] [id number] 12:39:00 12:39:00 t Casmul s - [facility] Medicine Outpati ent Clinics 2020-03-03 2020-03-03 [facility] [id number] 12:15:00 12:15:00 t Casmul s - [facility] Medicine Outpati ent Clinics 2020-02-19 2020-02-19 [facility] [place] - [id number] V illage 00:00:00 00:00:00 [facility] eliana aguilar HORSE TREKKING GUIDE: Medical - Practi winter [id number] [email or web address] [facility], [address] [address], [place] [address] , Ph. 2020-01-18 2020-01-18 [facility] [id number] 10:39:00 10:39:00 t Casmul s - [facility] Medicine Outpati ent Clinics 2020-01-17 2020-01-17 [facility] [id number] 10:40:00 10:40:00 [address] [place] [address] [facility] l Medicine Outpati ent Clinics 2020-01-01 2020-01-01 [facility] [id number] 13:55:00 13:55:00 t [employer] [facility] Medicine Outpati ent Clinics 2019-12-20 2019-12-20 [facility] [id number] 09:43:00 09:43:00 t [employer] [facility] Medicine Outpati ent Clinics 2019-12-18 2019-12-18 [facility] [id number] 11:20:00 11:20:00 t [employer] [facility] Medicine Outpati ent Clinics 2019-12-04 2019-12-04 [facility] [id number] 10:00:00 10:00:00 t Specialty/U Cyndi kes - Specialty rology Memori a /Urology Clinic l Clinic Outpati ent Clinics 2019-12-03 2019-12-03 [facility] [id number] 11:31:00 11:31:00 t [employer] [facility] Medicine Outpati ent Clinics 2019-11-26 2019-11-26 [facility] [id number] 08:43:00 08:43:00 t [employer] [facility] Medicine Outpati ent Clinics 2019-11-16 2019-11-16 [facility] [id number] 08:35:00 08:35:00 t Specialty/U Cyndi kes - Specialty rology Memori a /Urology Clinic l Clinic Outpati ent Clinics 2019-11-10 2019-11-10 [facility] [id number] 14:05:00 14:05:00 t [facility] Medicine Outpati ent Clinics 2019-10-17 2019-10-17 [facility] [id number] 14:55:00 14:55:00 t [employer] [facility] Medicine Outpati ent Clinics 2019-10-16 2019-10-[address] [facility] [place] - [id number] V illage 00:00:00 00:00:00 [facility] eliana o, HORSE TREKKING GUIDE: Medical - Practi c [id number] [email or web address], [address], [place] [address] , Ph. 2019-10-12 2019-10-12 [facility] [id number] 15:58:00 15:58:00 t [employer] [facility] Medicine Outpati ent Clinics 2019-10-01 2019-10-01 [facility] [id number] 15:42:00 15:42:00 t [employer] [facility] Medicine Outpati ent Clinics 2019-09-25 2019-09-25 [facility] [id number] 11:20:00 11:20:00 t [employer] [facility] Medicine Outpati ent Clinics 2019-09-18 2019-09-18 [facility] [id number] 11:15:00 11:15:00 t Specialty/U Cyndi kes - Specialty rology Memori a /Urology Clinic l Clinic Outpati ent Clinics 2019-09-14 2019-09-14 [facility] [id number] 11:32:00 11:32:00 t [employer] [facility] Medicine Outpati ent Clinics 2019-09-04 2019-09-04 [facility] [id number] 11:20:00 11:20:00 t [employer] [facility] Medicine Outpati ent Clinics 2019-09-04 2019-09-04 [facility] [id number] 10:00:00 10:00:00 t Specialty/U Cyndi kes - Specialty rology Memori a /Urology Clinic l Clinic Outpati ent Clinics 2019-08-08 2019-08-08 [facility] [id number] 10:40:00 10:40:00 t [employer] [facility] Medicine Outpati ent Clinics 2019-08-02 2019-08-02 [facility] [id number] 13:00:00 13:00:00 t Specialty/U Cyndi kes - Specialty rology Memori a /Urology Clinic l Clinic Outpati ent Clinics 2019-07-09 2019-07-09 [facility] [id number] 14:00:00 14:00:00 t [employer] [facility] Medicine Outpati ent Clinics 2019-05-29 2019-05-29 [facility] [id number] 11:20:00 11:20:00 t [employer] [facility] Medicine Outpati ent Clinics 2019-05-15 2019-05-15 [facility] [id number] 10:15:00 10:15:00 t Specialty/U Cyndi kes - Specialty rology Memori a /Urology Clinic l Clinic Outpati ent Clinics 2019-04-24 2019-04-24 [facility] [id number] 10:40:00 10:40:00 t [employer] [facility] Medicine Outpati ent Clinics 2019-04-09 2019-04-09 [facility] [id number] 13:20:00 13:20:00 t [employer] [facility] Medicine Outpati ent Clinics 2019-03-24 2019-03-24 [facility] [id number] 12:00:00 12:00:00 t [facility] 2019-03-15 2019-03-15 [facility] [id number] 13:22:00 13:22:00 t [facility] 2019-03-13 2019-03-13 [facility] [id number] 10:39:00 10:39:00 t [employer] [facility] Medicine Outpati ent Clinics 2019-03-12 2019-03-12 [facility] [id number] 10:30:00 10:30:00 t Urgent Urgent Care L ukes - Care Clinic [facility] Clinic l Outpati ent Clinics 2019-02-28 2019-02-28 [facility] [id number] 13:00:00 13:00:00 t [employer] [facility] Medicine l Medicine Outpati ent Clinics 2019-02-12 2019-02-12 [facility] [id number] 10:15:00 10:15:00 t Specialty/U Cyndi kes - Specialty rology [facility] a /Urology Clinic l Clinic Outpati ent Clinics 2019-02-08 2019-02-08 [facility] [id number] 15:00:00 15:00:00 t Casmul s [facility] Medicine Medicine Outpati ent Clinics 2019-02-08 2019-02-08 [facility] [id number] 08:42:00 08:42:00 t [employer] [facility] Medicine Outpati ent Clinics 2019-02-06 2019-02-06 [facility] [id number] 09:40:00 09:40:00 t Casmul s [facility] Medicine Outpati ent Clinics 2019-01-09 2019-01-09 [facility] [id number] 10:40:00 10:40:00 t [employer] [facility] Medicine Outpati ent Clinics 2019-01-03 2019-01-03 [facility] [id number] 13:07:00 13:07:00 t Casmul s [employer] [facility] Medicine Outpati ent Clinics 2018-12-28 2018-12-28 [facility] [id number] 14:00:00 14:00:00 t Casmul s [facility] Medicine Outpati ent Clinics 2018-09-14 2018-09-14 [facility] [id number] 09:26:00 09:26:00 t [employer] [facility] Medicine Outpati ent Clinics 2018-09-08 2018-09-08 [facility] [id number] 09:30:00 09:30:00 t Casmul s [facility] Medicine Outpati ent Clinics 2018-08-07 2018-08-07 [facility] [id number] 08:45:00 08:45:00 [facility] ent [facility] 2018-02-20 2018-02-20 Outpatient Jeff Aguilart [id number] 14:30:00 14:30:00 [facility] ent [facility] 2018-02-03 2018-02-03 [place] [place] [id number] [facility] St 09:00:00 09:00:00 [facility] Results Test Description Test Time Test Comments Results Result Comments Source GLUBED 2020-10-23 12:09:00 Test Item Value Reference Range Interpretation Comme nts GLUBED (test code = GLUBED) 215 MG/DL 70-110 H Performed by certified tie in machine operator at [facility] [id number] 08:25:00 Test Item Value Reference Range Interpretation Comments GLUBED (test code = 152 MG/DL 70-110 H Performe d by certified GLUBED) tie in machine operator at [facility] [place] BASIC METABOLIC [id number] 04:54:00 Test Item Value Reference Range Interpretation Comments SODIUM (test code = NA) 135 mEq/L 134-147 N POTASSIUM (test code = 4.0 mEq/L 3.4-5.0 N K) CHLORIDE (test code = 103 mEq/L 100-108 N CL) CARBON DIOXIDE (test 26 mEq/l 21-33 N code = CO2) ANION GAP (test code = 10 0-20 N GAP) GLUCOSE (test code = 199 mg/dL 70-110 H GLU) BLOOD UREA NITROGEN 18 mg/dL 7-18 N (test code = BUN) GLOMERULAR FILTRATION 59.7 70-80 L Units of measure = RATE (test code = GFR) ml/mi n/1.73 m2 CREATININE (test code = 0.9 mg/dL 0.6-1.3 N CREAT) CALCIUM (test code = 9.0 mg/dL 8.0-10.5 N CA) CBC W/AUTO [id number] 04:42:00 Test Item Value Reference Range Interpretation Comments WHITE BLOOD CELL (test code = 8.3 x10 3/uL 4.5-11.0 N WBC) RED BLOOD CELL (test code = 3.66 x10 6/uL 3.54-5.02 N RBC) HEMOGLOBIN (test code = HGB) 11.9 g/dL 11.0-15.0 N HEMATOCRIT (test code = HCT) 36.2 % 33.0-45.0 N MEAN CELL VOLUME (test code = 98.9 fL 81.0-99.0 N MCV) MEAN CELL HGB (test code = MCH) 32.5 pg 27.0-33.0 N MEAN CELL HGB CONCETRATION 32.9 g/dL 33.0-37.0 L (test code = MCHC) RED CELL DISTRIBUTION WIDTH CV 11.7 % 11.5-14.5 N (test code = RDW) RED CELL DISTRIBUTION WIDTH SD 42.8 fL 37.0-54.0 N (test code = RDW-SD) PLATELET COUNT (test code = 173 x10 3/uL 150-400 N PLT) MEAN PLATELET VOLUME (test code 10.0 fL 7.0-9.0 H = MPV) NEUTROPHIL % (test code = NT%) 84.9 % 56.0-77.0 H IMMATURE GRANULOCYTE % (test 0.2 % 0.0-2.0 N code = IG%) LYMPHOCYTE % (test code = LY%) 11.9 % 14.0-32.0 L MONOCYTE % (test code = MO%) 3.0 % 4.8-9.0 L EOSINOPHIL % (test code = EO%) 0.0 % 0.3-3.7 L BASOPHIL % (test code = BA%) 0.0 % 0.0-2.0 N NUCLEATED RBC % (test code = 0.0 % 0-0 N NRBC%) NEUTROPHIL # (test code = NT#) 7.08 x10 3/uL 2.0-7.6 N IMMATURE GRANULOCYTE # (test 0.02 x10 3/uL 0.00-0.03 N code = IG#) LYMPHOCYTE # (test code = LY#) 0.99 x10 3/uL 1.0-3.8 L MONOCYTE # (test code = MO#) 0.25 x10 3/uL 0.1-0.8 N EOSINOPHIL # (test code = EO#) 0.00 x10 3/uL 0.0-0.2 N BASOPHIL # (test code = BA#) 0.00 x10 3/uL 0.0-0.2 N NUCLEATED RBC # (test code = 0.00 x10 3/uL 0.0-0.1 N NRBC#) MANUAL DIFF REQUIRED (test code NO = MDIFF) CBC W/AUTO [id number] 04:40:00 Test Item Value Reference Range Interpretation Comments WHITE BLOOD CELL (test code = x10 3/uL 4.5-11.0 WBC) RED BLOOD CELL (test code = RBC) x10 6/uL 3.54-5.02 HEMOGLOBIN (test code = HGB) 11.9 g/dL 11.0-15.0 N HEMATOCRIT (test code = HCT) 36.2 % 33.0-45.0 N MEAN CELL VOLUME (test code = fL 81.0-99.0 MCV) MEAN CELL HGB (test code = MCH) pg 27.0-33.0 MEAN CELL HGB CONCETRATION (test g/dL 33.0-37.0 code = MCHC) RED CELL DISTRIBUTION WIDTH CV % 11.5-14.5 (test code = RDW) PLATELET COUNT (test code = PLT) 173 x10 3/uL 150-400 N NEUTROPHIL % (test code = NT%) % 56.0-77.0 LYMPHOCYTE % (test code = LY%) % 14.0-32.0 NEUTROPHIL # (test code = NT#) x10 3/uL 2.0-7.6 LYMPHOCYTE # (test code = LY#) x10 3/uL 1.0-3.8 MANUAL DIFF REQUIRED (test code = MDIFF) [id number] 22:32:00 Test Item Value Reference Range Interpretation Comments GLUBED (test code = 251 MG/DL 70-110 H Performe d by certified GLUBED) tie in machine operator at [facility] [id number] 18:17:00 Test Item Value Reference Range Interpretation Comments GLUBED (test code = 186 MG/DL 70-110 H Performe d by certified GLUBED) tie in machine operator at [facility] - XR CHEST 1 [id number] 16:30:00 [facility] NING HILTONSName: JAMES ARGUETA : 1935 Sex: F FAX: Jaya Holm MD [phone] [place]: St: ADM FAX: Jossue Talamantes i, NP [phone] FAX: Elli Stanley DO [phone] Name: JAMES ARGUETA [facility] [place] : 1935 Age/S: 85/F [address] [place] [address] Unit #: [id number] Loc: [place] [address] Phys: Jossue Reyes NP Acct: [id number] Dis Date: Status: ADM IN PHONE #: [phone] Exam Date: 10/22/2020 1613 FAX #: [phone] Reason: POST WATCHMAN EXAMS: CPT CODE: [id number] XR CHEST 1 V 71979 Portable single view AP chest INDICATION: Post watchman Comparison: 10/20/2020 chest x-ray FINDINGS: The cardio mediastinal silhouette is enlarged and stable with partially calcified aorta. The watchman device is faintly visualized just inferior to the left mainstem bronchus shadow over the descending aortic shadow. Cardiac valve calcifications are seen. Mediastinal surgical clips present. Sternotomy wires present. The lungs are well inflated and clear. No pneumothorax or pleural effusion identified by portable study. Surgical clips partially visualized over the right upper quadrant of the abdomen. IMPRESSION: Watchman device present. No evidence for acute cardiopulmonary disease. SL: [id number]-H at 1630 Reported and signed by: Fran Rios M.D. 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 at [facility] [place] [id number] 12:40:00 Test Item Value Reference Range Interpretation Comments GLUBED (test code = 127 MG/DL 70-110 H Performe d by certified GLUBED) 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 Positiv e results do not rule out bacterial infection or co -infection with other viru ses. Negative result s do not preclude SARS-C oV-2 infection andsh ould not be used as the samuel e basis for patient managementdecis ions. Negative result s must be combined with otherclinical observations, p atient history, and epidemiological information . Detection of SARS-CoV-2 RNA may be affe cted bysample collec tion methods, storag e conditions, and /or stageof infection. Agatha l RNA mutations, vacc inations, antiviraltherap eutics, antibiotics, chemotherapeuti c orimmunosuppres zee drugs have not been e valuated for effectson d etection. Results are for the identification of SARS-CoV-2 RNA usingthe [employer] M2000 Sy stem under the FDA Emergen cy UseAuthorizatio n. The testing is perf ormed by priscila naranjo in the procedures for the Andres M2000 molecular diagnostic SARS-CoV-2 dirk clements in vitro. - XR CHEST 2 [id number] 13:58:00 [facility] : 1935 Sex: F FAX: Jaya Holm MD [phone] [place]: St: PRE FAX: Elli Stanley DO [phone] Name: JAMES ARGUETA [facility] : 1935 Age/S: 85/F [address] [place] [address] Unit #: [id number] Loc: [place] [address] Phys: Jaya Bunn MD Acct: [id number] Dis Date: Status: PRE SDC PHONE #: [phone] Exam Date: 10/20/2020 1334 FAX #: [phone] Reason: PRE-OP WATCHMAN EXAMS: CPT CODE: [id number] XR CHEST 2 V 97464 Clinical Indication: Atrial fibrillation. Preoperative chest radiograph. Comparison: Noneavailable. Impression: Chest, 2 views. Prior median sternotomy. Cardiac silhouette is prominent without evidence of failure. No pleural effusion or pneumothorax. No acute osseous abnormality. Right upper quadrant surgical clips. SL: [id number] at 1358 Reported and signed by: Kelly Boogie M.D. CC: Jaya Bunn MD; Elli Britt DO Technologist: RT Rajan(R) Trnscrd Date/Time/By: 10/20/2020 (9313) : By: [email or web address] Orig Print D/T: S: 10/20/2020 (1857) PAGE 1 Signed ReportBASIC METABOLIC [id number] 13:12:00 Test Item Value Reference Range Interpretation Comments SODIUM (test code = NA) 138 mEq/L 134-147 N POTASSIUM (test code = 4.6 mEq/L 3.4-5.0 N K) CHLORIDE (test code = 102 mEq/L 100-108 N CL) CARBON DIOXIDE (test 32 mEq/l 21-33 N code = CO2) ANION GAP (test code = 9 0-20 N GAP) GLUCOSE (test code = 117 mg/dL 70-110 H GLU) BLOOD UREA NITROGEN 18 mg/dL 7-18 N (test code = BUN) GLOMERULAR FILTRATION 79.7 70-80 N Units of measure = RATE (test code = GFR) ml/mi n/1.73 m2 CREATININE (test code = 0.7 mg/dL 0.6-1.3 N CREAT) CALCIUM (test code = 9.9 mg/dL 8.0-10.5 N CA) [id number] 13:12:00 Test Item Value Reference Range Interpretation Comments PREALBUMIN (test code = PREALB) 21.2 mg/dL 16.0-40.0 N PROTHROMBIN [id number] 13:10:00 Test Item Value Reference Range Interpretation Comments PROTHROMBIN TIME 16.4 SECONDS 9.3-12.9 H PATIENT (test code = PTP) INTERNATIONAL NORMAL 1.5 0.8-1.2 H TARGET RATIO (test code = INR BY IN DICATION INR) Indication INR1. Prophyl axis of venous thrombos is 2.0 - 3. 0 (orthopedic mohini leydi), Prophylaxis of venous thrombos is (other than hig h-risk surgery), Eliz tment of Deep Vein Thrombosis/Pulm onary Embolism, Preve ntion of systemic emb olism - Tissue heart va lves, Acute Myocardia l Infarction (to prevent systemic embo lism), Valvular heart disease, Atri al Fibrillation, Bileaflet mecha nical valve in aortic position.2. Mec hanical prosthetic valv es (high risk), 2.5 - 3.5 Presence of Lupus Anticoagu lant or Antiphospholi pid Antibodies, Pre vention of systemic e mbolism - Acute Myocard ial Infarction (t o prevent recurre nt infarct). CBC W/AUTO [id number] 12:58:00 Test Item Value Reference Range Interpretation Comments WHITE BLOOD CELL (test code = 7.8 x10 3/uL 4.5-11.0 N WBC) RED BLOOD CELL (test code = 4.14 x10 6/uL 3.54-5.02 N RBC) HEMOGLOBIN (test code = HGB) 13.7 g/dL 11.0-15.0 N HEMATOCRIT (test code = HCT) 41.6 % 33.0-45.0 N MEAN CELL VOLUME (test code = 100.5 fL 81.0-99.0 H MCV) MEAN CELL HGB (test code = MCH) 33.1 pg 27.0-33.0 H MEAN CELL HGB CONCETRATION 32.9 g/dL 33.0-37.0 L (test code = MCHC) RED CELL DISTRIBUTION WIDTH CV 11.9 % 11.5-14.5 N (test code = RDW) RED CELL DISTRIBUTION WIDTH SD 44.1 fL 37.0-54.0 N (test code = RDW-SD) PLATELET COUNT (test code = 193 x10 3/uL 150-400 N PLT) MEAN PLATELET VOLUME (test code 9.4 fL 7.0-9.0 H = MPV) NEUTROPHIL % (test code = NT%) 51.5 % 56.0-77.0 L IMMATURE GRANULOCYTE % (test 0.3 % 0.0-2.0 N code = IG%) LYMPHOCYTE % (test code = LY%) 34.8 % 14.0-32.0 H MONOCYTE % (test code = MO%) 10.9 % 4.8-9.0 H EOSINOPHIL % (test code = EO%) 2.1 % 0.3-3.7 N BASOPHIL % (test code = BA%) 0.4 % 0.0-2.0 N NUCLEATED RBC % (test code = 0.0 % 0-0 N NRBC%) NEUTROPHIL # (test code = NT#) 4.01 x10 3/uL 2.0-7.6 N IMMATURE GRANULOCYTE # (test 0.02 x10 3/uL 0.00-0.03 N code = IG#) LYMPHOCYTE # (test code = LY#) 2.71 x10 3/uL 1.0-3.8 N MONOCYTE # (test code = MO#) 0.85 x10 3/uL 0.1-0.8 H EOSINOPHIL # (test code = EO#) 0.16 x10 3/uL 0.0-0.2 N BASOPHIL # (test code = BA#) 0.03 x10 3/uL 0.0-0.2 N NUCLEATED RBC # (test code = 0.00 x10 3/uL 0.0-0.1 N NRBC#) MANUAL DIFF REQUIRED (test code NO = MDIFF) CBC W/AUTO [id number] 12:55:00 Test Item Value Reference Range Interpretation Comments WHITE BLOOD CELL (test code = x10 3/uL 4.5-11.0 WBC) RED BLOOD CELL (test code = RBC) x10 6/uL 3.54-5.02 HEMOGLOBIN (test code = HGB) 13.7 g/dL 11.0-15.0 N HEMATOCRIT (test code = HCT) 41.6 % 33.0-45.0 N MEAN CELL VOLUME (test code = fL 81.0-99.0 MCV) MEAN CELL HGB (test code = MCH) pg 27.0-33.0 MEAN CELL HGB CONCETRATION (test g/dL 33.0-37.0 code = MCHC) RED CELL DISTRIBUTION WIDTH CV % 11.5-14.5 (test code = RDW) PLATELET COUNT (test code = PLT) 193 x10 3/uL 150-400 N NEUTROPHIL % (test code = NT%) % 56.0-77.0 LYMPHOCYTE % (test code = LY%) % 14.0-32.0 NEUTROPHIL # (test code = NT#) x10 3/uL 2.0-7.6 LYMPHOCYTE # (test code = LY#) x10 3/uL 1.0-3.8 MANUAL DIFF REQUIRED (test code = MDIFF) CT, CTANGIO [id number] 10:58:00Reason for exam:->strokeFINAL REPORT CLINICAL HISTORY: TIA TECHNIQUE: Initially, noncontrast head CT images were performed. Contiguous contrast-enhanced axial images through the neck followed by axial images through the head with coronal and sagittal reformations to assess the arterial circulation. 3-Dreconstructions were performed using a volume rendered technique separately on a workstation. This ex am was performed according to the departmental dose [...] intact. There is no evidence for a prairie band of Lawson proximal branch vessel occlusion. Mild [...] from the proximal left cervical internal carotid arterycompatible with a pseudoaneurysm, also unchanged. Mild to moderate bilateral vertebral artery originand intradural segment stenoses are unchanged. There are dorsal spondylitic changes in the cervicalspine. There are scattered subcentimeter lymph nodes in the neck. The visualized lung apices are clear. IMPRESSION: Since 2018, severe left internal carotid artery siphon stenosis, with near criticalnarrowing at the carotid terminus is unchanged. 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 No hemodynamically significant stenosis of the proximal internal carotid arteries by NASCET criteria. Mild to moderate bilateral vertebral artery stenosis, unchanged. No evidence for a prairie band of Lawson proximal branch vessel occlusion. Signed: Alexa Bolden MDReport Verified Date/Time: 05/01/2019 10:58:29 Reading Location: [facility] C013V Neuro Reading Room Electronically signed by: ALEXA BOLDEN M.D. on 10:58 AMCT, CAROTID, [id number] 10:58:00Reason for exam:->eval for TIAFINAL REPORT CLINICAL HISTORY: TIA TECHNIQUE: Initially, noncontrast head CT images were performed. Contiguous contrast- enhanced axial images through the neck followed by [...] intact. There is no evidence for a prairie band of Lawson proximal branch vessel occlusion. Mild [...] from the proximal left cervical internal carotid arterycompatible with a pseudoaneurysm, also unchanged. Mild to moderate bilateral vertebral artery originand intradural segment stenoses are unchanged. There are dorsal spondylitic changes in the cervicalspine. There are scattered subcentimeter lymph nodes in the neck. The visualized lung apices are clear. IMPRESSION: Since 2018, severe left internal carotid artery siphon stenosis, with near criticalnarrowing at the carotid terminus is unchanged. 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 No hemodynamically significant stenosis of the proximal internal carotid arteries by NASCET criteria. Mild to moderate bilateral vertebral artery stenosis, unchanged. No evidence for a prairie band of Lawson proximal branch vessel occlusion. Signed: Alexa Bolden MDReport Verified Date/Time: 05/01/2019 10:58:29 Reading Location: [facility] C013V Neuro Reading Room Electronically signed by: ALEXA BOLDEN M.D. on 10:58 AMBASIC METABOLIC [id number] 06:04:00 Test Item Value Reference Range Interpretation [...] NOT APPLICABLE FOR DIALYSIS PATIEN TS. CBC (HEMOGRAM ONLY)2019-05-01 04:59:00 Test Item Value [...] 0-0 (BEAKER) (test code = 413) TROPONIN [id number] 20:18:00 Test Item Value Reference Range Interpretation [...] neurological disease, and persistent tachyarrhythmia.MR, BRAIN, WITHOUT [id number] 19:07:00Reason for exam:->Ischemic Stroke EvaluationFINAL REPORT MR, [...] Hernandez Verified Date/Time: 04/30/2019 19:07:03 Reading Location: [place] [address]V Neuro Reading Room HEMOGLOBIN [id number] 10:33:00 Test Item Value Reference Range Interpretation Comments HEMOGLOBIN A1C (BEAKER) (test code = 6.6 % 4.3-6.1 H 368) FastingVITAMIN [id number] 09:00:00 Test Item Value Reference Range Interpretation [...] NOT APPLICABLE FOR DIALYSIS PATIEN TS. FastingLIPID [id number] 07:30:00 Test Item Value Reference Range Interpretation [...] 130-159 High 160-189 Very High >=190 FastingTROPONIN [id number] 07:28:00 Test Item Value Reference Range Interpretation [...] and persistent tachyarrhythmia.FastingCBC W/PLT COUNT & AUTO [id number] 05:43:00 Test Item Value Reference Range Interpretation [...] (BEAKER) (test code = 2801) NV, ANGIOGRAM, [id number] 11:37:00Reason for exam:->TIAsFINAL REPORT November 22, 2017 [...] guidance and strict sterile technique a 4 Sudanese femoral sheath was inserted into the right common femoral artery. Through the sheath a 4 Sudanese vertebral catheter was then advanced over the [...] demonstrates a critical supraclinoid ICA stenosis of qkntebountdjj04%. There is delayed antegrade flow. The venous [...] [facility] Room POCT- GLUCOSE [id number] 07:43:00 Test Item Value Reference Range Interpretation Comments POC-GLUCOSE METER 149 mg/dL 70-110 H TESTED AT [facility] 6720 (BEAKER) (test code = ISA [place] 1538) [address] [id number] 06:46:00 Test Item Value Reference Range Interpretation Comments MAGNESIUM (BEAKER) (test code = 2.0 mg/dL 1.6-2.6 627) BASIC METABOLIC [id number] 06:46:00 Test Item Value Reference Range Interpretation [...] S NOT APPLICABLE FOR DIALYSIS PATIEN TS. [id number] 06:33:00 Test Item Value Reference Range Interpretation [...] 2.5-3.5 for patients with mechanical heart valves.POCT-GLUCOSE [id number] 06:22:00 Test Item Value Reference Range Interpretation Comments POC-GLUCOSE METER 161 mg/dL 70-110 H TESTED AT [place] [address] ([facility]) (test code = [facility] 1538) [address] POCT-GLUCOSE [id number] 02:08:00 Test Item Value Reference Range Interpretation Comments POC-GLUCOSE METER 182 mg/dL 70-110 H TESTED AT [place] [address] ([facility]) (test code = [facility] 1538) [address] POCT-GLUCOSE [id number] 19:30:00 Test Item Value Reference Range Interpretation Comments POC-GLUCOSE METER 146 mg/dL 70-110 H TESTED AT [place] [address] ([facility]) (test code = [facility] 1538) [address] CT, CAROTID, [id number] 14:54:00Please include aortaFINAL REPORT CT angiogram of [...] the left ICA terminus. There is also djqx-gm-srkqbdgu multifocal narrowing of the right carotid siphon. [...] Mcdaniels Verified Date/Time: 11/21/2017 14:54:26 Reading Location: [facility] Radiology Reading Room . [facility] [id number] 14:54:00FINAL REPORT CT angiogram of the upper [...] the left ICA terminus. There is also obcl-ib-ljtqfuys multifocal narrowing of the right carotid siphon. [...] Mcdanielseport Verified Date/Time: 11/21/2017 14:54:26 Reading Location: [facility] Radiology Reading Room POCT-GLUCOSE [id number] 11:50:00 Test Item Value Reference Range Interpretation Comments POC-GLUCOSE METER 153 mg/dL 70-110 H TESTED AT [place] [address] [facility] ([facility] = [facility] 1538) [address] POCT-GLUCOSE [id number] 08:08:00 Test Item Value Reference Range Interpretation Comments POC-GLUCOSE METER 125 mg/dL 70-110 H TESTED AT [place] [address] ([facility] (test code = [facility] 1538) [address] [id number] 06:43:00 Test Item Value Reference Range Interpretation Comments MAGNESIUM (BEAKER) (test code = 2.1 mg/dL 1.6-2.6 627) BASIC METABOLIC [id number] 06:43:00 Test Item Value Reference Range Interpretation [...] FOR DIALYSIS PATIEN TS. TSH/FREE T4 IF [id number] 22:12:00 Test Item Value Reference Range Interpretation Comments THYROID STIMULATING HORMONE 4.66 uIU/mL 0.35-4.94 (BEAKER) (test code = 772) [id number] 21:54:00 Test Item Value Reference Range Interpretation Comments MAGNESIUM (BEAKER) (test code = 2.0 mg/dL 1.6-2.6 627) BASIC METABOLIC [id number] 21:54:00 Test Item Value Reference Range Interpretation [...] NOT APPLICABLE FOR DIALYSIS PATIEN TS. LIPID [id number] 21:54:00 Test Item Value Reference Range Interpretation [...] Borderline 130-159 High 160-189 Very High >=190POCT-GLUCOSE [id number] 21:35:00 Test Item Value Reference Range Interpretation Comments POC-GLUCOSE METER 128 mg/dL 70-110 H TESTED AT [place] [address] ([facility]) (test code = [facility] 1538) [address] POCT-GLUCOSE [id number] 17:55:00 Test Item Value Reference Range Interpretation Comments POC-GLUCOSE METER 113 mg/dL 70-110 H TESTED AT [place] [address] ([facility]) (test code = [employer] [facility] 1538) [address] POCT-GLUCOSE [id number] 12:32:00 Test Item Value Reference Range Interpretation Comments POC-GLUCOSE METER 120 mg/dL 70-110 H TESTED AT [place] [address] ([facility]) (test code = [facility] 1538) [address] MR, MRA, BRAIN, WITHOUT [id number] 11:33:00Reason for exam:->Ischemic Stroke EvaluationFINAL REPORT MRA Head and Neck CLINICAL HISTORY: CVA TECHNIQUE: MRA of the head utilizing 3-D gkug-hv-altxea technique, with 3-D reconstructions. MRA of the neck utilizing 2-D and 3-D faev-gg-wpiwhz technique, with 3-D reconstructions. COMPARISON: None FINDINGS: [...] There is no other evidence for a prairie band of Lawson proximal branch vessel occlusion. There [...] MDReport Verified Date/Time: 11/20/2017 11:33:14 Reading Location: [address] Neuro Reading Room MR, MRA, NECK, WITHOUT IV [id number] 11:33:00Reason for exam:->Ischemic Stroke EvaluationFINAL REPORT MRA Head and Neck CLINICAL HISTORY: CVA TECHNIQUE: MRA of the head utilizing 3-D iypb-zv-rduioc technique, with 3-D reconstructions. MRA of the neck utilizing 2- D and 3-D qeoo-cr-hhkgvn technique, with 3-D reconstructions. COMPARISON: None FINDINGS: [...] There is no other evidence for a prairie band of Lawson proximal branch vessel occlusion. There [...] Bolden Verified Date/Time: 11/20/2017 11:33:14 Reading Location: [address] Neuro Reading Room MR, BRAIN, WITHOUT [id number] 11:05:00Reason for exam:->Ischemic Stroke EvaluationFINAL REPORT MRI [...] Bolden Verified Date/Time: 11/20/2017 11:05:05 Reading Location: [facility] C0[facility] Neuro Reading Room HEMOGLOBIN [id number] 09:08:00 Test Item Value Reference Range Interpretation Comments HEMOGLOBIN A1C (JANNETH) (test code = 6.1 % 4.3-6.1 368) POCT-GLUCOSE [id number] 08:27:00 Test Item Value Reference Range Interpretation Comments POC-GLUCOSE METER 125 mg/dL 70-110 H TESTED AT [place] [address] (JANNETH) (test code = [place] 1538) [address] TSH/FREE T4 IF [id number] 07:47:00 Test Item Value Reference Range Interpretation Comments THYROID STIMULATING HORMONE 5.97 uIU/mL 0.35-4.94 H (BEAKER) (test code = 772) VITAMIN [id number] 07:44:00 Test Item Value Reference Range Interpretation Comments VITAMIN B12 (BEAKER) (test code = 857 pg/mL 213-816 H 774) CBC W/PLT COUNT & AUTO [id number] 06:47:00 Test Item Value Reference Range Interpretation [...] NEUTROPHILS ABSOLUTE COUNT 4.02 K/ L 1.56-6.13 ([facility]) (test code = 670) LYMPHOCYTES ABSOLUTE COUNT 2.89 K/ L 1.18-3.74 [facility] [facility]) (test code = 414) MONOCYTES ABSOLUTE COUNT ([facility]) 0.95 K/ L 0.24-0.36 H (test code = 415) EOSINOPHILS ABSOLUTE COUNT 0.35 K/ L 0.04-0.36 ([facility]) (test code = 416) BASOPHILS ABSOLUTE COUNT ([facility]) 0.04 K/ L 0.01-0.08 (test code = 417) IMMATURE GRANULOCYTES-RELATIVE 0 % 0-1 PERCENT ([facility]) (test code = 2801) POCT-GLUCOSE [id number] 22:09:00 Test Item Value Reference Range Interpretation Comments POC-GLUCOSE METER 130 mg/dL 70-110 H TESTED AT [facility] 7390 ([facility]) (test code = ISA ARELLANO 1538) [id number]
[2020-11-08 21:13] LABS: Absolute Lymphocytes (CBC) 2.2 K/uL (0.7-4.9); Basophils % 0.7 % (0-1.3); Hematocrit 38.9 % (36.0-45.0); Lymphocytes % 31.4 % (15.3-44.8); MPV 8.4 fL (7.6-11.3)
[2020-11-08 21:14] LABS: Protime INR 1.22
[2020-11-08 21:14] LABS: Urine Bacteria <20 /HPF (<20); Urine RBC <5 /HPF (NONE SEEN)
[2020-11-08] MEDS ORDERED: NA CHLORIDE 0.9% 500 ML ONE ×2 (21:22→22:19)
[2020-11-08 21:31] LABS: ALT/SGPT 26 U/L (12-78); AST/SGOT 18 U/L (15-37); Albumin 3.8 g/dL (3.4-5.0); Alkaline Phosphatase 100 U/L (45-117); BUN Blood Urea Nitrogen 11 mg/dL (7-18); Bicarbonate 27 mmol/L (21-32); Bilirubin Direct 0.2 mg/dL (0-0.2); Bilirubin Total 0.5 mg/dL (0.2-1.0); Glucose Level 133 mg/dL (74-106); Magnesium 2.3 mg/dL (1.8-2.4); NT PRO-BNP 785 pg/mL (<450); Potassium 4.1 mmol/L (3.5-5.1); Protein, Total 7.6 g/dL (6.4-8.2); Sodium Level 135 mmol/L (136-145); Troponin (Emerg Dept Use Only) < 0.02 ng/mL (0.0-0.045)
[2020-11-08 21:51] LABS: SARS-COV-2 RT PCR NEGATIVE (NEGATIVE)
--- NOTE | 2020-11-08 23:33 | ER ---
Nurse's Notes [facility] Name: Radha Lara Age: 85 yrs Sex: Female : 1935 Arrival Date: 11/08/2020 Time: 18:47 Bed 4 Private MD: Elli Britt Diagnosis: Diarrhea, unspecified;Nausea;Dehydration Presentation: 11/08 19:36 Chief complaint: Patient states: I just feel weak and I can't eat anything for several ca1 days. Reports nausea, diarrhea. Denies vomiting. Reports runny nose and congestion. Denies cough and fever. Coronavirus screen: Client denies travel out of the [place] in the last 14 days. congestion, diarrhea, nausea, runny nose, Client presents with at least one sign or symptom that may indicate coronavirus-19. Standard/surgical mask placed on the client. Provider contacted for isolation considerations. Ebola Screen: Patient negative for fever greater than or equal to 101.5 degrees Fahrenheit, and additional compatible Ebola Virus Disease symptoms Patient denies exposure to infectious person. Patient denies travel to an Ebola-affected area in the 21 days before illness onset. No symptoms or risks identified at this time. Initial Sepsis Screen: Does the patient meet any 2 criteria? No. Patient's initial sepsis screen is negative. Does the patient have a suspected source of infection? No. Patient's initial sepsis screen is negative. Risk Assessment: Do you want to hurt yourself or someone else? Patient reports no desire to harm self or others. Onset of symptoms was November 08, 2020. 19:36 Method Of Arrival: Wheelchair ca1 19:36 Acuity: YOLANDE 3 ca1 Historical: - Allergies: 19:39 Aspirin; ca1 19:39 Clonidine; ca1 19:39 Codeine; ca1 19:39 Demerol; ca1 19:39 Ibuprofen; ca1 19:39 Iodinated Contrast Media - IV Dye; ca1 19:39 Lisinopril; ca1 19:39 Niacin; ca1 19:39 Nitrofurantoin; ca1 19:39 nitrous oxide; ca1 19:39 vicoden; ca1 19:39 Zoloft; ca1 - PMHx: 19:39 ADD/ADHD; Atrial Fib; PE; Kidney stones; Sleep Apnea; Hyperlipidemia; Diabetes - NIDDM; ca1 CVA; Hypertension; acid reflux; TIA; UTI; - PSHx: 19:39 Hysterectomy; Tonsillectomy; Cholecystectomy; CABG; ca1 - Immunization history:: Adult Immunizations up to date, Client reports receiving the 2nd dose of the Covid vaccine, Client reports receiving the 1st dose of the Covid vaccine, Pneumococcal vaccine is up to date, Flu vaccine is up to date. - Social history:: Smoking status: Patient denies any tobacco usage or history of. Screenin:53 Abuse screen: Denies threats or abuse. Denies injuries from another. Nutritional rv screening: No deficits noted. Tuberculosis screening: No symptoms or risk factors identified. Fall Risk None identified. Assessment: 20:54 General: Appears uncomfortable, Behavior is calm, cooperative. Pain: Complains of pain rv in back. Neuro: Level of Consciousness is awake, alert, obeys commands. Cardiovascular: Patient's skin is warm and dry. Respiratory: Airway is patent. GI: Abdomen is flat. Derm: Skin is intact. Vital Signs: 19:36 BP 149 / 81; Pulse 79; Resp 16 S; Temp 97.5(TE); Pulse Ox 99% on R/A; Weight 52.62 kg ca1 (R); Height 5 ft. 2 in. (157.48 cm) (R); Pain 0/10; 20:55 BP 186 / 69 Supine; Pulse 70; Resp 16; Pulse Ox 99% ; rv 21:00 BP 160 / 64 Sitting; Pulse 84; Resp 16; Pulse Ox 99% ; rv 21:09 BP 134 / 69; Pulse 81; Resp 17; Pulse Ox 99% on R/A; rv 22:00 BP 151 / 55; Pulse 84; Resp 14; Pulse Ox 98% on R/A; rv 19:36 Body Mass Index 21.22 (52.62 kg, 157.48 cm) ca1 ED Course: 18:47 Patient arrived in ED. as 18:48 Elli Britt MD is Private Physician. as 19:38 Triage completed. ca1 19:39 Arm band placed on right wrist. ca1 20:10 Davide Garcia, LAILA is Primary Nurse. rv 20:11 John Macedo NP is PHCP. pm1 20:11 Chepe Oliver MD is Attending Physician. pm1 20:45 Inserted saline lock: 20 gauge in right forearm, using aseptic technique. Blood rv collected. 20:45 No provider procedures requiring assistance completed. Initial lab(s) drawn, by me, rv sent to lab. COVID swab sent to lab. Flu and/or RSV swab sent to lab. 20:54 Patient has correct armband on for positive identification. dope worker on. Pulse rv ox on. NIBP on. 21:48 XRAY Chest (1 view) In Process Unspecified. EDMS Administered Medications: 21:08 Drug: NS 0.9% 500 ml Route: IV; Rate: bolus; Site: right forearm; rv 22:06 Follow up: IV Status: Completed infusion; IV Intake: 500ml rv 22:06 Drug: NS 0.9% 500 ml Route: IV; Rate: bolus; Site: right antecubital; rv 22:34 Follow up: IV Status: Completed infusion; IV Intake: 500ml rv Intake: 22:06 IV: 500ml; Total: 500ml. rv 22:34 IV: 500ml; Total: 1000ml. rv Outcome: 23:33 Discharge ordered by . pm1 11/09 00:02 Patient left the ED. lp1 Signatures: Dispatcher [employer] EDMS Vicki Thomas Laura, RN RN lp1 John Macedo, INDUSTRIAL SAFETY AND HEALTH SPECIALIST INDUSTRIAL SAFETY AND HEALTH SPECIALIST pm1 Davide Garcia RN RN rv Yandy Luna RN RN ca1
--- NOTE | 2020-11-08 23:33 | EDPHYS ---
Physician Documentation [facility] Name: Radha Lara Age: 85 yrs Sex: Female : 1935 Arrival Date: 11/08/2020 Time: 18:47 Bed 4 Private MD: Elli Britt ED Physician Chepe Oliver HPI: 11/08 21:03 This 85 yrs old Female presents to ER via Wheelchair with complaints of pm1 Diarrhea, Nausea, Weakness, Runny Nose. 21:03 The patient's problem is reported as weakness, that is generalized. Onset: The pm1 symptoms/episode began/occurred 1 week(s) ago. Context:. Associated signs and symptoms: Pertinent positives: diarrhea, nausea, Poor appetite. Runny nose and nasal congestion. Dizziness with changing position, Pertinent negatives: abdominal pain, chest pain, headache, lightheadedness, numbness, shortness of breath, vomiting, Cough, Fever. Severity of symptoms: in the emergency department the symptoms are unchanged. Patient's baseline: Neuro: alert and fully oriented, Motor: no deficits, Ambulation: walks without assistance. The patient has experienced similar episodes in the past, several times. The patient has been recently seen by a physician: with different complaint(s), Followed up with Dr. Bunn post watchman procedure a few weeks ago. Patient was complaining of arm pain when she saw him and the impression was post covid vaccine myalgia. Historical: - Allergies: 19:39 Aspirin; ca1 19:39 Clonidine; ca1 19:39 Codeine; ca1 19:39 Demerol; ca1 19:39 Ibuprofen; ca1 19:39 Iodinated Contrast Media - IV Dye; ca1 19:39 Lisinopril; ca1 19:39 Niacin; ca1 19:39 Nitrofurantoin; ca1 19:39 nitrous oxide; ca1 19:39 vicoden; ca1 19:39 Zoloft; ca1 - PMHx: 19:39 ADD/ADHD; Atrial Fib; PE; Kidney stones; Sleep Apnea; Hyperlipidemia; Diabetes - NIDDM; ca1 CVA; Hypertension; acid reflux; TIA; UTI; - PSHx: 19:39 Hysterectomy; Tonsillectomy; Cholecystectomy; CABG; ca1 - Immunization history:: Adult Immunizations up to date, Client reports receiving the 2nd dose of the Covid vaccine, Client reports receiving the 1st dose of the Covid vaccine, Pneumococcal vaccine is up to date, Flu vaccine is up to date. - Social history:: Smoking status: Patient denies any tobacco usage or history of. ROS: 21:03 Cardiovascular: Negative for chest pain, palpitations, and edema, Respiratory: Negative pm1 for shortness of breath, cough, wheezing, and pleuritic chest pain. 21:03 Back: Negative for injury and pain, : Negative for injury, bleeding, discharge, and swelling, MS/Extremity: Negative for injury and deformity, Skin: Negative for injury, rash, and discoloration. 21:03 Constitutional: Positive for poor PO intake, Negative for body aches, chills, fever. 21:03 ENT: Positive for rhinorrhea, Nasal congestion, Negative for ear pain, sore throat. 21:03 Abdomen/GI: Positive for nausea, diarrhea, Negative for abdominal pain, vomiting. 21:03 Neuro: Positive for dizziness, Generalized weakness, Negative for headache, numbness, tingling. Exam: 21:06 Constitutional: This is a well developed, well nourished patient who is awake, alert, pm1 and in no acute distress. Head/Face: Normocephalic, atraumatic. ENT: Nares patent. No nasal discharge, no septal abnormalities noted. Tympanic membranes are normal and external auditory canals are clear. Oropharynx with no redness, swelling, or masses, exudates, or evidence of obstruction, uvula midline. Mucous membranes moist. 21:06 Respiratory: Lungs have equal breath sounds bilaterally, clear to auscultation and percussion. No rales, rhonchi or wheezes noted. No increased work of breathing, no retractions or nasal flaring. 21:06 Back: No spinal tenderness. No costovertebral tenderness. Full range of motion. Skin: Warm, dry with normal turgor. Normal color with no rashes, no lesions, and no evidence of cellulitis. MS/ Extremity: Pulses equal, no cyanosis. Neurovascular intact. Full, normal range of motion. 21:06 Cardiovascular: Rate: normal, Rhythm: irregular, Pulses: no pulse deficits are appreciated, Heart sounds: normal, normal S1and S2, Edema: is not appreciated. 21:06 Abdomen/GI: Inspection: abdomen appears normal, Palpation: abdomen is soft and non-tender, in all quadrants. 21:06 Neuro: Exam negative for acute changes, Orientation: is normal, Mentation: is normal, Motor: is normal, moves all fours, Sensation: is normal, no obvious gross deficits. Vital Signs: 19:36 BP 149 / 81; Pulse 79; Resp 16 S; Temp 97.5(TE); Pulse Ox 99% on R/A; Weight 52.62 kg ca1 (R); Height 5 ft. 2 in. (157.48 cm) (R); Pain 0/10; 20:55 BP 186 / 69 Supine; Pulse 70; Resp 16; Pulse Ox 99% ; rv 21:00 BP 160 / 64 Sitting; Pulse 84; Resp 16; Pulse Ox 99% ; rv 21:09 BP 134 / 69; Pulse 81; Resp 17; Pulse Ox 99% on R/A; rv 22:00 BP 151 / 55; Pulse 84; Resp 14; Pulse Ox 98% on R/A; rv 19:36 Body Mass Index 21.22 (52.62 kg, 157.48 cm) ca1 MDM: 20:31 Patient medically screened. pm1 23:31 Data reviewed: vital signs. Data interpreted: Pulse oximetry: on room air is 98 %. pm1 Interpretation: normal. Counseling: I had a detailed discussion with the patient and/or guardian regarding: the historical points, exam findings, and any diagnostic results supporting the discharge/admit diagnosis, lab results, radiology results, the need for outpatient follow up, to return to the emergency department if symptoms worsen or persist or if there are any questions or concerns that arise at home. 11/08 20:33 Order name: Basic Metabolic Panel pm1 11/08 20:33 Order name: CBC with Diff pm1 11/08 20:33 Order name: LFT's pm1 11/08 20:33 Order name: Magnesium pm1 11/08 20:33 Order name: NT PRO-BNP; Complete Time: 21:33 pm1 11/08 20:33 Order name: PT-INR; Complete Time: 21:33 pm1 11/08 20:33 Order name: Troponin (emerg Dept Use Only); Complete Time: 21:33 pm1 11/08 20:33 Order name: Urine Microscopic Only; Complete Time: 21:24 pm1 11/08 20:33 Order name: Basic Metabolic Panel; Complete Time: 21:33 EDMS 11/08 20:33 Order name: CBC with Automated Diff; Complete Time: 21:33 EDMS 11/08 20:33 Order name: Liver (Hepatic) Function; Complete Time: 21:33 EDMS 11/08 20:33 Order name: Magnesium; Complete Time: 21:33 EDMS 11/08 20:33 Order name: XRAY Chest (1 view) pm1 11/08 20:33 Order name: EKG; Complete Time: 20:34 pm1 11/08 20:33 Order name: Cardiac monitoring; Complete Time: 20:55 pm1 11/08 20:33 Order name: EKG - Nurse/Tech; Complete Time: 20:55 pm1 11/08 20:33 Order name: IV Saline Lock; Complete Time: 20:55 pm1 11/08 20:33 Order name: Labs collected and sent; Complete Time: 20:55 pm1 11/08 20:33 Order name: O2 Per Protocol; Complete Time: 20:55 pm1 11/08 20:33 Order name: O2 Sat Monitoring; Complete Time: 20:55 pm1 11/08 20:33 Order name: Orthostatic Blood Pressure; Complete Time: 21:07 pm1 11/08 20:33 Order name: Urine Dipstick-Ancillary (obtain specimen); Complete Time: 21:07 pm1 11/08 21:51 Order name: COVID-19/FLU A+B; Complete Time: 21:57 EDMS Administered Medications: 21:08 Drug: NS 0.9% 500 ml Route: IV; Rate: bolus; Site: right forearm; rv 22:06 Follow up: IV Status: Completed infusion; IV Intake: 500ml rv 22:06 Drug: NS 0.9% 500 ml Route: IV; Rate: bolus; Site: right antecubital; rv 22:34 Follow up: IV Status: Completed infusion; IV Intake: 500ml rv Disposition: 11/09 04:27 Co-signature as Attending Physician, Chepe Oliver MD. [email or web address] Disposition: 11/08/20 23:33 Discharged to Home. Impression: Dehydration, Diarrhea, unspecified, Nausea. - Condition is Stable. - Discharge Instructions: Food Choices to Help Relieve Diarrhea, Adult, Dehydration, Elderly, Diarrhea, Adult, Nausea, Adult, Rehydration, Elderly. - Prescriptions for Zofran ODT 4 mg Oral tablet,disintegrating - place 1 tablet by TRANSLINGUAL route every 8 hours As needed; 20 tablet. - Medication Reconciliation Form, Thank You Letter, Antibiotic Education, Prescription Opioid Use form. - Follow up: Emergency Department; When: As needed; Reason: Worsening of condition. Follow up: Private Physician; When: 2 - 3 days; Reason: Recheck today's complaints, Continuance of care, Re-evaluation by your physician. - Problem is new. - Symptoms have improved. Signatures: Dispatcher [employer] EDNC Jess Luevano RN RN lp1 John Macedo, EMERGENCY PREPAREDNESS COORDINATOR EMERGENCY PREPAREDNESS COORDINATOR pm1 Davide Garcia RN RN rv Yandy Luna RN RN ca1 Chepe Oliver MD MD 7 Corrections: (The following items were deleted from the chart) 11/08 21:03 20:34 Influenza Screen (A \T\ B)+BA.LAB.BRZ ordered. EDNC EDNC 21:03 20:34 CORONAVIRUS+MR.LAB.BRZ ordered. [facility] EDNC 11/09 00:02 11/08 23:33 11/08/2020 23:33 Discharged to Home. Impression: DehydrationDiarrhea, lp1 unspecified; Nausea. Condition is Stable. Forms are Medication Reconciliation Form, Thank You Letter, Antibiotic Education, Prescription Opioid Use. Follow up: Emergency Department; When: As needed; Reason: Worsening of condition. Follow up: Private Physician; When: 2 - 3 days; Reason: Recheck today's complaints, Continuance of care, Re-evaluation by your physician. Problem is new. Symptoms have improved. pm1
[2020-11-09 00:52] VITALS: TEMP 97.5
[2020-11-09 00:57] VITALS: BP 151/55; O2SAT 98
--- NOTE | 2020-11-10 12:06 | RAD REPORT ---
EXAM DESCRIPTION: RADChest Single View11/08/2020 9:48 pm CLINICAL HISTORY: Weakness COMPARISON: 10/18/2020. TECHNIQUE: XR CHEST 1 VIEW 11/08/2020 8:33 PM CDT FINDINGS: The heart is enlarged. Sternotomy was performed. Lungs are clear without consolidation, at electasis, mass or edema. There is no pleural effusion. There is no pneumothorax. There are no acute osseous findings. IMPRESSION: Clear lungs. Electronically signed by: Jt Chavarria MD 11/08/2020 10:46 PM CDT Due to temporary technical issues with the PACS/Fluency reporting system, reports are being signed by the in house radiologist without review as a courtesy to ensure prompt reporting. The interpreting r adiologist is fully responsible for the content of the report.
[2020-11-11 14:46] LABS: Urine Blood Negative (Negative); Urine Glucose Negative (Negative); Urine Protein Negative (Negative)
== END 2020-11-09 00:02 | disposition home or self-care (01) ==
LOC: ER 18:45
DX: E86.0 Dehydration (principal); R11.0 Nausea; I10 Essential (primary) hypertension; Z95.1 Presence of aortocoronary bypass graft; Z88.5 Allergy status to narcotic agent; Z88.6 Allergy status to analgesic agent; Z88.8 Allergy status to other drugs, medicaments and biological substances; Z91.041 Radiographic dye allergy status
CPT/HCPCS: 93005; 85025; 80048; 36415; 83735; 85610; 80076; 81015; 84484; 83880; 0240U; 71045; 96360; 99284; J7040 ×2; 81003

== ENCOUNTER 2020-11-10 19:21 | Emergency (ER) | payer OTHER ==
--- OUTSIDE RECORDS SUMMARY | 2020-11-10 19:25 | XMS REPORT | Continuity of Care Document ---
:1935 Author Organization [facility] t Address [address] [place] [address] Care Team Providers Name Role Phone MIR [...] [facility] ne 3-31 Clear 00:00: [place] iodine DA Active [facility] 3-29 Clear 00:00: [place] codeine DA Active [facility] 3-29 Clear 00:00: [place] aspirin DA Active U [facility] 3-29 Clear 00:00: [place] Aspirin Propensi Active palpitati [facility] [...] Active [facility] 8-04 Clear 00:00: [place] codeine DA Active [facility] 8-04 Clear 00:00: [place] aspirin DA Active U [facility] 8-04 Clear 00:00: [place] ASPIRIN DA Active U [facility] 7-30 Clear 00:00: [place] CITRUS DA Active U [facility] FRUITS 7-30 Clear 00:00: [place] CODEINE DA Active U [facility] 7-30 Clear 00:00: [place] IVP DYE DA Active U [facility] 7-30 Clear 00:00: [place] POLLEN DA Active U [facility] 7-30 Clear 00:00: [place] TOMATOE DA Active U [facility] 7-30 Clear 00:00: [facility] Zoloft Adverse Active Info Not [facility] Reaction Available [facility] Macrodan Adverse Active Info Not [facility] tin Reaction Available [facility] Lisinopr Adverse Active Info Not [facility] il Reaction Available [facility] Aspirin Adverse Active Info Not [facility] Reaction Available [facility] Nitrous Adverse Active Info Not [facility] oxide Reaction Available [facility] Iodine Adverse Active Info Not [facility] contrast Reaction Available [facility] es - dye [facility] Vicodin Adverse Active Info Not [facility] Reaction Available [facility] Niacin Adverse Active Info Not [facility] Reaction Available [facility] Aspirin Allergy Active Mild to Tachycardia [...] Date Quantity Comments Source Sex Assigned At [facility] Tobacco use and 2019-04-30 2019-04-30 Never used WILMER Dorsey kes - exposure 00:00:00 00:00:00 [facility] Smoking Status Start Date Stop Date Source [facility]ations Ordered Filled Start Stop Current Ordering Indication Dosage Frequency Signature Comments Components Source Medication Medication Date Date Medication? Clinician (SIG) Name Name Sodium Sodium 2020- No Na Britt [address] Chloride Chloride 8-17 02-12 [facility] - 00:[facility]: 00:00 Memoria 00 :00 [facility] Monte[place] Montekast Yes Na Britt [address] [facility] Sodium Sodium 3-20 [facility] - 00:00: Memoria 00 [facility] carvedilol 2018-07 Yes 25mg Take 25 [...] times Center daily. hydrALAZINE 2018-07 Yes 100mg [id number] Take [address] [facility] (APRESOLINE 0-08 [id number] mg by L ukes - ) 100 [...] 40 MG 16:46: daily. Medical capsule 41 [place] valsartan 2018-07 Yes 160mg QD Take [address] [facility] (DIOVAN) 0-08 mg by [facility] - 160 MG 16:46: mouth Medical tablet 41 daily. Center verapamil 2018-07 Yes 240mg QD Take [address] [facility] (VERELAN 0-08 mg by [facility] - PM) 240 MG 16:46: mouth Medica l 24 hr 41 nightly. [place] capsule cyanocobala 2018-07 Yes 1000ug QD Take 1,[address] [facility] min 0-08 mcg by [facility]ukes - (VITAMIN 16:46: mouth Medical B-12) 1000 41 daily. [place] MCG tablet cholecalcif 2018-07 Yes 1000U QD Take 1,[address] [facility] [address] roly, 0-08 Units by [facility] - vitamin D3, 16:46: mouth Medic al 1,000 unit 41 daily. [place] capsule clopidogrel 2018-07 Yes 75mg QD Take [address] (PLAVIX) 75 0-08 by mouth Luke s - mg tablet 16:46: daily. Medica l 41 [place] sertraline 2018-07 Yes 25mg QD Take [address] (ZOLOFT) 25 0-08 by mouth Luke s - MG tablet 16:46: daily. Medica l 41 [place] cranberry 2018-07 Yes 4200mg Q.5D Take 4,[address] conc-ascorb 0-08 mg by [facility]ukes - ic acid 16:46: mouth 2 Medical (CRANBERRY 41 (two) Center CONCENTRATE times ) 140-100 daily. mg Cap Lactobac 2018-07 Yes 1{tbl} QD Take 1 [facility] 42-Bifid 0-08 tablet by [facility]ukes - 8-colost-FO 16:46: mouth Medic al S 41 daily. [place] (PROBIOTIC PLUS COLOSTRUM) 30-500-50 mg PwPk multivit-mi 2018-07 Yes 1{tbl} QD Take [address] n-ferrous 0-08 tablet by [facility] - fumarate 16:46: mouth Medical (MULTI 41 daily. [place] VITAMIN) 9 mg iron/15 mL Liqd irbesartan Yes 150mg QD Take [address] (AVAPRO) 7-28 mg by [facility]ukes - 150 MG 00:00: mouth Medical tablet 00 daily. [place] amLODIPine Yes 10mg QD Take [address] (NORVASC) 7-28 by mouth [facility] - 10 MG 00:00: daily. Medical tablet 00 [place] Estradiol Estradiol Yes Na Britt as [facility] 7-22 directed [facility] - 00:00: Memoria 00 [facility] HydrALAZINE HydrALAZINE Yes Na Britt [address] [facility] HCl HCl 5-14 with food [facility] - 00:00: Memoria 00 [facility] amlodipine amlodipine No 1 Q1D amlodipine [place] 5 mg tablet 5 mg tablet 5 mg F amily Take 1 Take 1 tablet Practic tablet tablet Take 1 e every day every day tablet by oral by oral every day route. route. by oral route. Tylenol Tylenol Yes Na Britt not [facility] Arthritis Arthritis defined Cyndi kes [facility] carvedilol carvedilol No 1 BID carvedilol [facility] 25 mg 25 mg 25 mg Family tablet Take tablet Take tablet Practic 1 tablet 1 tablet Take 1 e twice a day twice a day tablet by oral by oral twice a route. route. day by oral route. Methenamine Methenamine Yes Na Britt [address] [facility] Hippurate Hippurate [facility] Irbesartan Irbesartan Yes Na Britt [address] [facility] Vitamin Vitamin Yes Na Britt not [facility] B-12 B-12 defined [facility] Crestor Crestor Yes Na Britt [address] [facility] ONCE A DAY [facility] clopidogrel clopidogrel No 1 Q1D clopidogre [facility] 75 mg 75 mg l 75 mg Family tablet Take tablet Take tablet Practic 1 tablet 1 tablet Take 1 e every day every day tablet by oral by oral every day route. route. by oral route. Metformin Metformin Yes Na Britt [address] [facility] HCl HCl with meals [facility] Vitamin E Vitamin E Yes Na Britt not [facility] defined [facility] Omeprazole Omeprazole Yes Na Britt TAKE [address] [facility] [facility] CAPSULE BY Lukes - MOUTH Memoria EVERY DAY [facility] Amlodipine Amlodipine Yes Na Britt [address] [facility] Besylate Besylate [facility] Crestor 40 Crestor 40 No 1 Q1D Crestor 40 Village mg tablet mg tablet mg tablet Family Take 1 Take 1 Take 1 Practic tablet tablet tablet e every day every day every day by oral by oral by oral route. route. route. Eliquis Eliquis Yes Na Britt [address] [facility] Multivitami Multivitami Yes Na Britt not [facility] n n defined [facility] Probiotic Probiotic Yes Na Britt not [facility] defined [facility] Trimethopri Trimethopri Yes Na Britt [address] [facility] m m [facility] Eliquis 5 Eliquis 5 No 1 BID Eliquis 5 Village mg tablet mg tablet mg tablet Family Take 1 Take 1 Take 1 Practic tablet tablet tablet e twice a day twice a day twice a by oral by oral day by route. route. oral route. Magnesium Magnesium Yes Na Britt not [facility] defined [facility] Levetiracet Levetiracet Yes Na Britt [address] [facility] am am [facility] Coreg Coreg Yes Na Birtt not [facility] defined [facility] hydralazine hydralazine No 1 TID hydralazin [facility] 100 mg 100 mg e 100 mg Family tablet Take tablet Take tablet Practic 1 tablet 3 1 tablet 3 Take 1 e times a day times a day tablet 3 by oral by oral times a route. route. day by oral route. Metformin Metformin Yes Na Britt TAKE [address] [facility] HCl HCl TABLET BY [facility]ukes - MOUTH Memoria TWICE l DAILY [facility] Rosuvastati Rosuvastati Yes Na Britt TAKE [address] [facility] [facility] n Calcium n Calcium TABLET BY [facility] - MOUTH Memoria DAILY l [facility] Sertraline Sertraline Yes Na Britt [address] HCl HCl [facility] irbesartan irbesartan No 1 Q1D irbesartan [facility] 150 mg 150 mg 150 mg Family tablet Take tablet Take tablet Practic 1 tablet 1 tablet Take 1 e every day every day tablet by oral by oral every day route. route. by oral route. Vitamin D3 Vitamin D3 Yes Na Britt [address] [facility] Cyanocobala Cyanocobala Yes Na Britt [address] min min [facility] Omeprazole Omeprazole Yes Na Britt [address] ONCE A DAY [facility] metformin metformin No 1 BID metformin [facility] 500 mg 500 mg 500 mg Family tablet Take tablet Take tablet Practic 1 tablet 1 tablet Take 1 e twice a day twice a day tablet by oral by oral twice a route. route. day by oral route. Plavix Plavix Yes Na Britt [address] [facility] Carvedilol Carvedilol Yes Na Britt as [facility] directed [facility] Levothyroxi Levothyroxi Yes Na Britt [address] [facility] ne Sodium ne Sodium in the Cristian es - morning [facility] an empty l stomach [facility] omeprazole omeprazole No 1capsul Q1D omeprazole [facility] 40 mg 40 mg e(s) 40 mg Family capsule,del capsule,del capsule,de Practic ayed ayed layed e release release release Take 1 Take 1 Take 1 capsule capsule capsule every day every day every day by oral by oral by oral route. route. route. Sodium Sodium Yes Na Britt TAKE [address] [facility] Chloride Chloride TABLET in Cyndi kes - AM and 1 Memoria tab EVERY l 6 HOURS [facility] ent [facility] Cranberry Cranberry Yes Na Britt [address] Concentrate Concentrate with meals [facility] Vimpat 50 Vimpat 50 No 1 Q1D Vimpat 50 Village mg tablet mg tablet mg tablet Family Take 1 Take 1 Take 1 Practic tablet tablet tablet e every day every day every day by oral by oral by oral route. route. route. Vital Signs Vital Name Observation Time Observation Value Comments Source Height 2020-02-19 00:00:00 62 [in_i] [facility] Height 2019-10-16 00:00:00 62 [in_i] [facility] BMI (Body Mass 2019-10-16 00:00:00 23.8 kg/m2 Desean dinh Family Index) Practice Body Weight 2019-10-16 00:00:00 130 [lb_av] [facility] Procedures This patient has no known procedures. Plan of Care Planned Activity Planned Date Details Comments Source Future Scheduled Test 2020-03-[address] [facility] 00:[facility]00 (#1) [code = Medical Center INFLUENZA VACCINE (#1)] Future Scheduled Test 2019-10-[address] [facility] - 00:[facility]00 measurement Medical Center (procedure) [code = 98978774] Future Scheduled Test 2019-07-[address] [facility] - 00:00:00 WELLNESS (YEAR 2 or Medical Center FIRST YEAR if no IPPE) [code = MEDICARE ANNUAL WELLNESS (YEAR 2 or FIRST YEAR if no IPPE)] Future Scheduled Test 2001 PNEUMOCOCCAL 65+ [facility] - 00:00:00 (1 of 1 - Medical Center [id number] [id number]) [code = PNEUMOCOCCAL 65+ YRS (1 of 1 - [id number] PCV13)] Future Scheduled Test 1946 DIABETIC EYE EXAM [facility] - 00:00:00 [code = DIABETIC EYE Medical Center EXAM] Future Scheduled Test [facility] examination Medical Center (regime/therapy) [code = 540541039] Future Scheduled Test 1946 Urine screening for [facility] - [facility]:00 protein (procedure) Medical Center [code = 319893596] Future Appointment 2021-02-21 Reese Beckerage Family 00:00:00 [address]; [address], [place] [address] Encounters Start End Encounter Admission Attending Care Care Encounter Source Date/Time Date/Time Type Type Clinicians Facility Department ID 2020-10-14 2020-10-14 Outpatient [facility] [id number] [facility] 2020-09-15 2020-09-15 Outpatient [facility] [id number] [facility] 2020-09-05 2020-09-05 Outpatient [facility] [id number] [facility] 2020-08-22 2020-08-22 Outpatient [facility] [id number] [facility] 2020-08-21 2020-08-21 Belle [facility] [place] - [id number] V illage 00:00:00 00:00:00 [facility] eliana aguilar 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 2020-08-06 2020-08-06 Outpatient [facility] [id number] [facility] 2020-07-30 2020-07-30 Outpatient [facility] [id number] [facility] 2020-07-29 2020-07-29 Outpatient [facility] [id number] [facility] 2020-07-29 2020-07-29 Outpatient [facility] [id number] [facility] 2020-07-28 2020-07-28 Outpatient [facility] [id number] [facility] 2020-06-17 2020-06-17 Outpatient [facility] [id number] [facility] 2020-05-22 2020-05-22 Outpatient [facility] [id number] [facility] 2020-04-23 2020-04-23 Outpatient [facility] [id number] [facility] 2020-04-16 2020-04-16 Outpatient [facility] [id number] [facility] 2020-03-26 2020-03-26 [facility] [id number] 11:20:00 11:20:00 t [place] [employer] s - Drive [facility] Medicine Outpati ent Clinics 2020-03-07 2020-03-07 [facility] [id number] 14:44:00 14:44:00 t [place] [employer] s - Drive [facility] Medicine Outpati ent Clinics 2020-03-05 2020-03-05 [facility] [id number] 11:00:00 11:00:00 t Specialty/U Cyndi kes - Specialty rology Memori a /Urology Clinic l Clinic Outpati ent Clinics 2020-03-03 2020-03-03 [facility] [id number] 12:39:00 12:39:00 t Retail Info s - Bia [facility] Medicine Outpati ent Clinics 2020-03-03 2020-03-03 [facility] [id number] 12:15:00 12:15:00 t Retail Info s - Bia [facility] Medicine Outpati ent Clinics 2020-02-19 2020-02-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 2020-01-18 2020-01-18 [facility] [id number] 10:39:00 10:39:00 t Retail Info s - Bia [facility] Medicine Outpati ent Clinics 2020-01-17 2020-01-17 [facility] [id number] 10:40:00 10:40:00 t Retail Info s [address] [facility] l Medicine Outpati ent Clinics 2020-01-01 2020-01-01 [facility] [id number] 13:55:00 13:55:00 t [employer]ensor [employer] [facility] Medicine Outpati ent Clinics 2019-12-20 2019-12-20 [facility] [id number] 09:43:00 09:43:00 t [employer] [facility] Medicine Outpati ent Clinics 2019-12-18 2019-12-18 [facility] [id number] 11:20:00 11:20:00 t [employer] [facility] Medicine Outpati ent Clinics 2019-12-04 2019-12-04 [facility] [id number] 10:00:00 10:00:00 t Specialty/U Cyndi kes - Specialty rology Memori a /Urology Clinic l Clinic Outpati ent Clinics 2019-12-03 2019-12-03 [facility] [id number] 11:31:00 11:31:00 t [employer] [facility] Medicine Outpati ent Clinics 2019-11-26 2019-11-26 [facility] [id number] 08:43:00 08:43:00 t [employer]ensor [employer] [facility] Medicine Outpati ent Clinics 2019-11-16 2019-11-16 [facility] [id number] 08:35:00 08:35:00 t Specialty/U Cyndi kes - Specialty rology Memori a /Urology Clinic l Clinic Outpati ent Clinics 2019-11-10 2019-11-10 [facility] [id number] 14:05:00 14:05:00 t [facility] Medicine Outpati ent Clinics 2019-10-17 2019-10-17 [facility] [id number] 14:55:00 14:55:00 t [employer] [facility] Medicine Outpati ent Clinics 2019-10-16 2019-10-16 Belle [facility] [place] - [id number] V illage 00:00:00 00:00:00 [facility] eliana o, PLASTER MACHINE OPERATOR: Medical - Practi c [email or web address], [address], [place] [address] , Ph. 2019-10-12 2019-10-12 [facility] [id number] 15:58:00 15:58:00 t [employer]ensor [employer] [facility] Medicine Outpati ent Clinics 2019-10-01 2019-10-01 [facility] [id number] 15:42:00 15:42:00 t [employer] [facility] Medicine Outpati ent Clinics 2019-09-25 2019-09-25 [facility] [id number] 11:20:00 11:20:00 t [employer] [facility] Medicine Outpati ent Clinics 2019-09-18 2019-09-18 [facility] [id number] 11:15:00 11:15:00 t Specialty/U Cyndi kes - Specialty rology Memori a /Urology Clinic l Clinic Outpati ent Clinics 2019-09-14 2019-09-14 [facility] [id number] 11:32:00 11:32:00 t [employer]ensor [employer] [facility] Medicine Outpati ent Clinics 2019-09-04 2019-09-04 [facility] [id number] 11:20:00 11:20:00 t [employer] [facility] Medicine Outpati ent Clinics 2019-09-04 2019-09-04 [facility] [id number] 10:00:00 10:00:00 t Specialty/U Cyndi kes - Specialty rology Memori a /Urology Clinic l Clinic Outpati ent Clinics 2019-08-08 2019-08-08 [facility] [id number] 10:40:00 10:40:00 t Sensor [employer] [facility] Medicine Outpati ent Clinics 2019-08-02 2019-08-02 [facility] [id number] 13:00:00 13:00:00 t Specialty/U Cyndi kes - Specialty rology Memori a /Urology Clinic l Clinic Outpati ent Clinics 2019-07-09 2019-07-09 [facility] [id number] 14:00:00 14:00:00 t Sensor [employer] [facility] Medicine Outpati ent Clinics 2019-05-29 2019-05-29 [facility] [id number] 11:20:00 11:20:00 t Sensor [employer] [facility] Medicine Outpati ent Clinics 2019-05-15 2019-05-15 [facility] [id number] 10:15:00 10:15:00 t Specialty/U Cyndi kes - Specialty rology Memori a /Urology Clinic l Clinic Outpati ent Clinics 2019-04-24 2019-04-24 [facility] [id number] 10:40:00 10:40:00 t [employer]ensor [employer] [facility] Medicine Outpati ent Clinics 2019-04-09 2019-04-09 [facility] [id number] 13:20:00 13:20:00 t Sensor [employer] [facility] Medicine Outpati ent Clinics 2019-03-24 2019-03-24 [facility] [id number] 12:00:00 12:00:00 t Urgent [facility] 2019-03-15 2019-03-15 [facility] [id number] 13:22:00 13:22:00 t Urgent [facility] 2019-03-13 2019-03-13 [facility] [id number] 10:39:00 10:39:00 t Sensor Tower [facility] Medicine Outpati ent Clinics 2019-03-12 2019-03-12 [facility] [id number] 10:30:00 10:30:00 t Urgent Urgent Care L ukes - Care Clinic [facility] Clinic l Outpati ent Clinics 2019-02-28 2019-02-28 [facility] [id number] 13:00:00 13:00:00 t [employer] Personal Estate Manager [facility] Medicine l Medicine Outpati ent Clinics 2019-02-12 2019-02-12 [facility] [id number] 10:15:00 10:15:00 t Specialty/U Cyndi kes - Specialty rology [facility]Urology Clinic l Clinic Outpati ent Clinics 2019-02-08 2019-02-08 [facility] [id number] 15:00:00 15:00:00 t Retail Info s Personal Estate Manager [facility] Medicine Medicine Outpati ent Clinics 2019-02-08 2019-02-08 [facility] [id number] 08:42:00 08:42:00 t Sensor [employer] [facility] Medicine Outpati ent Clinics 2019-02-06 2019-02-06 [facility] [id number] 09:40:00 09:40:00 t Retail Info s Personal Estate Manager [facility] Medicine Outpati ent Clinics 2019-01-09 2019-01-09 [facility] [id number] 10:40:00 10:40:00 t Sensor Tower [facility] Medicine Outpati ent Clinics 2019-01-03 2019-01-03 [facility] [id number] 13:07:00 13:07:00 t Retail Info s Personal Estate Manager [facility] Medicine Outpati ent Clinics 2018-12-28 2018-12-28 [facility] [id number] 14:00:00 14:00:00 t Retail Info s Personal Estate Manager [facility] Medicine Outpati ent Clinics 2018-09-14 2018-09-14 [facility] [id number] 09:26:00 09:26:00 t Sensor Tower [facility] Medicine Outpati ent Clinics 2018-09-08 2018-09-08 [facility] [id number] 09:30:00 09:30:00 t Retail Info s Personal Estate Manager [facility] Medicine Outpati ent Clinics 2018-08-07 2018-08-07 [facility] [id number] 08:45:00 08:45:00 [facility] 2018-02-20 2018-02-20 Outpatient Jeff Aguilart [id number] [facility] 14:30:00 14:30:00 [facility] 2018-02-03 2018-02-03 [facility] [id number] 09:00:00 09:00:00 [facility] Results Test Description Test Time Test Comments Results Result Comments Source GLUBED 2020-10-23 12:09:00 Test Item Value Reference Range Interpretation Comme nts GLUBED (test code = GLUBED) 215 MG/DL 70-110 H Performed by certified saddle stitching machine operator at [facility] [id number] 08:25:00 Test Item Value Reference Range Interpretation Comments GLUBED (test code = 152 MG/DL 70-110 H Performe d by certified GLUBED) saddle stitching machine operator at [facility] BASIC METABOLIC [id number] 04:54:00 Test Item Value Reference Range Interpretation [...] 9.0 mg/dL 8.0-10.5 N CA) CBC W/AUTO [id number] 04:42:00 Test Item Value Reference Range Interpretation [...] (test code NO = MDIFF) CBC W/AUTO [id number] 04:40:00 Test Item Value Reference Range Interpretation [...] MANUAL DIFF REQUIRED (test code = MDIFF) [id number] 22:32:00 Test Item Value Reference Range Interpretation Comments GLUBED (test code = 251 MG/DL 70-110 H Performe d by certified GLUBED) saddle stitching machine operator at [facility] [id number] 18:17:00 Test Item Value Reference Range Interpretation Comments GLUBED (test code = 186 MG/DL 70-110 H Performe d by certified GLUBED) saddle stitching machine operator at [facility] - XR CHEST 1 [id number] 16:30:00 [facility] NING EPHRAIMName: JAMES ARGUETA : 1935 Sex: F FAX: Jaya Holm MD [phone] [place]: St: ADM FAX: Jossue Talamantes i, NP [phone] FAX: Elli Stanley DO [phone] Name: JAMES ARGUETA [facility] Edward : 1935 Age/S: 85/F [address] [place] [address] Unit #: [id number] Loc: [place] [address] Phys: Jossue Reyes NP Acct: [id number] Dis Date: Status: ADM IN PHONE #: [phone] Exam Date: 10/22/2020 1613 FAX #: [phone] Reason: POST WATCHMAN EXAMS: CPT CODE: [id number] XR CHEST 1 V 38963 Portable single view AP chest INDICATION: Post [...] M.D. CC: Jaya Bunn MD; Jossue Reyes PLASTER MACHINE OPERATOR; Elli Britt DO Technologist: Milagro Ryan RT(R) Trnscrd Date/Time/By: 10/22/2020 (1630) : By: [email or web address] Orig Print D/T: S: 10/22/2020 (4754) PAGE 1 Signed ReportGLUBED 2020-10-22 16:07:00 Test Item Value Reference Range Interpretation Comments GLUBED (test code = 125 MG/DL 70-110 H Performe d by certified GLUBED) saddle stitching machine operator at [facility] [id number] 15:06:00 Test Item Value Reference Range Interpretation Comments ACT-ISTAT (test code 279 SEC 74-137 H Perform ed by certified = ACTI) saddle stitching machine operator at [facility] [id number] 12:40:00 Test Item Value Reference Range Interpretation Comments GLUBED (test code = 127 MG/DL 70-110 H Performe d by certified GLUBED) saddle stitching machine operator at [facility] Novel Coronavirus 2018 [id number] 07:25:00 Test Item Value Reference Range Interpretation [...] for the identification of SARS-CoV-2 RNA usingthe [employer] Plus M2000 Sy stem under the FDA Emergen cy UseAuthorizatio n. The testing is perf ormed by priscila naranjo in the procedures for the Andres M2000 molecular diagnostic SARS-CoV-2 dirk clements in vitro. - XR CHEST 2 [id number] 13:58:00 [facility] 1935 Sex: F FAX: Jaya Holm MD [phone] [place]: St: PRE FAX: Elli Stanley DO [phone] Name: JAMES ARGUETA [facility] : 1935 Age/S: 85/F [address] [place] [address] Unit #: [id number] Loc: [place] [address] Phys: Jaya Bunn MD Acct: [id number] Dis Date: Status: PRE SDC PHONE #: [phone] Exam Date: 10/20/2020 1334 FAX #: [phone] Reason: PRE-OP WATCHMAN EXAMS: CPT CODE: [id number] XR CHEST 2 V 97274 Clinical Indication: Atrial fibrillation. Preoperative chest radiograph. Comparison: Noneavailable. Impression: Chest, 2 views. Prior median sternotomy. Cardiac silhouette is prominent without evidence of failure. No pleural effusion or pneumothorax. No acute osseous abnormality. Right upper quadrant surgical clips. SL: [id number] at 1358 Reported and signed by: Kelly Boogie M.D. CC: Jaya Bunn MD; Elli Britt DO Technologist: RT Rajan(R) Trnscrd Date/Time/By: 10/20/2020 (0227) : By: [email or web address] Orig Print D/T: S: 10/20/2020 (9650) PAGE 1 Signed ReportBASIC METABOLIC [id number] 13:12:00 Test Item Value Reference Range Interpretation [...] code = 9.9 mg/dL 8.0-10.5 N CA) [id number] 13:12:00 Test Item Value Reference Range Interpretation Comments PREALBUMIN (test code = PREALB) 21.2 mg/dL 16.0-40.0 N PROTHROMBIN [id number] 13:10:00 Test Item Value Reference Range Interpretation [...] o prevent recurre nt infarct). CBC W/AUTO [id number] 12:58:00 Test Item Value Reference Range Interpretation [...] (test code NO = MDIFF) CBC W/AUTO [id number] 12:55:00 Test Item Value Reference Range Interpretation [...] DIFF REQUIRED (test code = MDIFF) CT, CAROTID, [id number] 10:58:00Reason for exam:->eval for TIAFINAL REPORT CLINICAL [...] intact. There is no evidence for a [place] proximal branch vessel occlusion. Mild [...] artery stenosis, unchanged. No evidence for a [place] proximal branch vessel occlusion. Signed: Alexa Bolden MDReport Verified Date/Time: 05/01/2019 10:58:29 Reading Location: [facility] C013V Neuro Reading Room Electronically signed by: ALEXA BOLDEN M.D. on 10:58 AMCT, CTANG [id number] 10:58:00Reason for exam:->strokeFINAL REPORT CLINICAL HISTORY: TIA [...] intact. There is no evidence for a [place] proximal branch vessel occlusion. Mild [...] artery stenosis, unchanged. No evidence for a [place] proximal branch vessel occlusion. Signed: Alexa Bolden MDReport Verified Date/Time: 05/01/2019 10:58:29 Reading Location: [facility] B1 C013V Neuro Reading Room BASIC METABOLIC PANEL 2019-05-01 06:04:00 Test Item Value [...] 0-0 (BEAKER) (test code = 413) TROPONIN [id number] 20:18:00 Test Item Value Reference Range Interpretation [...] neurological disease, and persistent tachyarrhythmia.MR, BRAIN, WITHOUT [id number] 19:07:00Reason for exam:->Ischemic Stroke EvaluationFINAL REPORT MR, [...] Hernandezort Verified Date/Time: 04/30/2019 19:07:03 Reading Location: [facility] C013V Neuro Reading Room HEMOGLOBIN [id number] 10:33:00 Test Item Value Reference Range Interpretation Comments HEMOGLOBIN A1C (BEAKER) (test code = 6.6 % 4.3-6.1 H 368) FastingVITAMIN [id number] 09:00:00 Test Item Value Reference Range Interpretation [...] NOT APPLICABLE FOR DIALYSIS PATIEN TS. FastingLIPID [id number] 07:30:00 Test Item Value Reference Range Interpretation [...] 130-159 High 160-189 Very High >=190 FastingTROPONIN [id number] 07:28:00 Test Item Value Reference Range Interpretation [...] and persistent tachyarrhythmia.FastingCBC W/PLT COUNT & AUTO [id number] 05:43:00 Test Item Value Reference Range Interpretation [...] (BEAKER) (test code = 2801) NV, ANGIOGRAM, [id number] 11:37:00Reason for exam:->TIAsFINAL REPORT November 22, 2017 [...] guidance and strict sterile technique a 4 Grenadian femoral sheath was inserted into the right common femoral artery. Through the sheath a 4 Grenadian vertebral catheter was then advanced over the [...] demonstrates a critical supraclinoid ICA stenosis of hpfshqzdevkdu80%. There is delayed antegrade flow. The venous [...] MDReport Verified Date/Time: 11/22/2017 11:37:47 Reading Location: [facility] Y018 Neuro Angio Reading Room POCT- GLUCOSE [id number] 07:43:00 Test Item Value Reference Range Interpretation Comments POC-GLUCOSE METER 149 mg/dL 70-[address] [facility] 6720 (BEAKER) (test code = ISA [place] [facility] 1538) [address] [id number] 06:46:00 Test Item Value Reference Range Interpretation Comments MAGNESIUM (BEAKER) (test code = 2.0 mg/dL 1.6-2.6 627) BASIC METABOLIC [id number] 06:46:00 Test Item Value Reference Range Interpretation [...] S NOT APPLICABLE FOR DIALYSIS PATIEN TS. [id number] 06:33:00 Test Item Value Reference Range Interpretation Comments PROTIME (BEAKER) (test code = 15.5 seconds 11.7-14.7 H 759) INR (BEAKER) (test code = 370) 1.2 <=5.9 PARTIAL THROMBOPLASTIN TIME 35.9 seconds 22.5-36.0 ([facility]) (test code = 760) RECOMMENDED COUMADIN/WARFARIN INR THERAPY RANGESSTANDARD DOSE: 2.0 - 3.0 Includes: PROPHYLAXIS forvenous thrombosis, systemic embolization; TREATMENT for venous thrombosis and/or pulmonary embolus.HIGH RISK: Target INR is 2.5-3.5 for patients with mechanical heart valves.POCT-GLUCOSE [id number] 06:22:00 Test Item Value Reference Range Interpretation Comments POC-GLUCOSE METER 161 mg/dL 70-110 H TESTED AT [place] [address] ([facility]) (test code = Qitio [facility] 1538) [address] POCT-GLUCOSE [id number] 02:08:00 Test Item Value Reference Range Interpretation Comments POC-GLUCOSE METER 182 mg/dL 70-110 H TESTED AT [place] [address] ([facility]) (test code = Qitio [facility] 1538) [address] POCT-GLUCOSE [id number] 19:30:00 Test Item Value Reference Range Interpretation Comments POC-GLUCOSE METER 146 mg/dL 70-110 H TESTED AT [place] [address] ([facility]) (test code = Qitio [facility] 1538) [address] CT, CAROTID, [id number] 14:54:00Please include aortaFINAL REPORT CT angiogram of [...] the left ICA terminus. There is also dmbm-pn-mfepubjj multifocal narrowing of the right carotid siphon. [...] Mcdaniels Verified Date/Time: 11/21/2017 14:54:26 Reading Location: [facility] Radiology Reading [facility] [id number] 14:54:00FINAL REPORT CT angiogram of the upper [...] the left ICA terminus. There is also weqe-qt-ybdokpts multifocal narrowing of the right carotid siphon. [...] Mcdanielsort Verified Date/Time: 11/21/2017 14:54:26 Reading Location: [facility] Radiology Reading Room POCT-GLUCOSE [id number] 11:50:00 Test Item Value Reference Range Interpretation Comments POC-GLUCOSE METER 153 mg/dL 70-110 H TESTED AT [place] [address] (BEAKER) (test code = [facility] 1538) [address] POCT-GLUCOSE [id number] 08:08:00 Test Item Value Reference Range Interpretation Comments POC-GLUCOSE METER 125 mg/dL 70-110 H TESTED AT [place] [address] ([facility]) (test code = [facility] 1538) [address] [id number] 06:43:00 Test Item Value Reference Range Interpretation Comments MAGNESIUM (BEAKER) (test code = 2.1 mg/dL 1.6-2.6 627) BASIC METABOLIC [id number] 06:43:00 Test Item Value Reference Range Interpretation [...] FOR DIALYSIS PATIEN TS. TSH/FREE T4 IF [id number] 22:12:00 Test Item Value Reference Range Interpretation Comments THYROID STIMULATING HORMONE 4.66 uIU/mL 0.35-4.94 (BEAKER) (test code = 772) [id number] 21:54:00 Test Item Value Reference Range Interpretation Comments MAGNESIUM (BEAKER) (test code = 2.0 mg/dL 1.6-2.6 627) BASIC METABOLIC [id number] 21:54:00 Test Item Value Reference Range Interpretation [...] NOT APPLICABLE FOR DIALYSIS PATIEN TS. LIPID [id number] 21:54:00 Test Item Value Reference Range Interpretation [...] Borderline 130-159 High 160-189 Very High >=190POCT-GLUCOSE [id number] 21:35:00 Test Item Value Reference Range Interpretation Comments POC-GLUCOSE METER 128 mg/dL 70-110 H TESTED AT [place] [address] ([facility]) (test code = [facility] 1538) [address] POCT-GLUCOSE [id number] 17:55:00 Test Item Value Reference Range Interpretation Comments POC-GLUCOSE METER 113 mg/dL 70-110 H TESTED AT [place] [address] ([facility]) (test code = [facility] [place] 1538) [address] POCT-GLUCOSE [id number] 12:32:00 Test Item Value Reference Range Interpretation Comments POC-GLUCOSE METER 120 mg/dL 70-110 H TESTED AT [place] [address] ([facility]) (test code = [facility] [place] [facility] 1538) [address] MR, MRA, BRAIN, WITHOUT [id number] 11:33:00Reason for exam:->Ischemic Stroke EvaluationFINAL REPORT MRA Head and Neck CLINICAL HISTORY: CVA TECHNIQUE: MRA of the head utilizing 3-D cqal-rh-vzgkbl technique, with 3-D reconstructions. MRA of the neck utilizing 2-D and 3-D eucq-bk-oegglf technique, with 3-D reconstructions. COMPARISON: None FINDINGS: [...] There is no other evidence for a [place] proximal branch vessel occlusion. There [...] MDReport Verified Date/Time: 11/20/2017 11:33:14 Reading Location: [address] Neuro Reading Room MR, MRA, NECK, WITHOUT IV [id number] 11:33:00Reason for exam:->Ischemic Stroke EvaluationFINAL REPORT MRA Head and Neck CLINICAL HISTORY: CVA TECHNIQUE: MRA of the head utilizing 3-D qpek-bz-uefiiw technique, with 3-D reconstructions. MRA of the neck utilizing 2- D and 3-D hecl-yn-iswpxt technique, with 3-D reconstructions. COMPARISON: None FINDINGS: [...] There is no other evidence for a [place] proximal branch vessel occlusion. There [...] Bolden Verified Date/Time: 11/20/2017 11:33:14 Reading Location: [address] Neuro Reading Room MR, BRAIN, WITHOUT [id number] 11:05:00Reason for exam:->Ischemic Stroke EvaluationFINAL REPORT MRI [...] Bolden Verified Date/Time: 11/20/2017 11:05:05 Reading Location: [address] Neuro Reading Room HEMOGLOBIN [id number] 09:08:00 Test Item Value Reference Range Interpretation Comments HEMOGLOBIN A1C (JANNETH) (test code = 6.1 % 4.3-6.1 368) POCT-GLUCOSE [id number] 08:27:00 Test Item Value Reference Range Interpretation Comments POC-GLUCOSE METER 125 mg/dL 70-110 H TESTED AT [place] [address] (BEAKER) (test code = [place] 1538) [address] TSH/FREE T4 IF [id number] 07:47:00 Test Item Value Reference Range Interpretation Comments THYROID STIMULATING HORMONE 5.97 uIU/mL 0.35-4.94 H (BEAKER) (test code = 772) VITAMIN [id number] 07:44:00 Test Item Value Reference Range Interpretation Comments VITAMIN B12 (BEAKER) (test code = 857 pg/mL 213-816 H 774) CBC W/PLT COUNT & AUTO [id number] 06:47:00 Test Item Value Reference Range Interpretation [...] NEUTROPHILS ABSOLUTE COUNT 4.02 K/ L 1.56-6.13 ([facility]) (test code = 670) LYMPHOCYTES ABSOLUTE COUNT 2.89 K/ L 1.18-3.74 ([facility]) (test code = 414) MONOCYTES ABSOLUTE COUNT ([facility]) 0.95 K/ L 0.24-0.36 H (test code = 415) EOSINOPHILS ABSOLUTE COUNT 0.35 K/ L 0.04-0.36 ([facility]) (test code = 416) BASOPHILS ABSOLUTE COUNT ([facility]) 0.04 K/ L 0.01-0.08 (test code = 417) IMMATURE GRANULOCYTES-RELATIVE 0 % 0-1 PERCENT ([facility]) (test code = 2801) POCT-GLUCOSE [id number] 22:09:00 Test Item Value Reference Range Interpretation Comments POC-GLUCOSE METER 130 mg/dL 70-[address] [facility] 8431 ([facility]) (test code = ISA [place] 1538) [address]
[2020-11-10] MEDS ORDERED: NA CHLORIDE 0.9% 500 ML ONE (22:48)
[2020-11-10 23:58] LABS: Absolute Lymphocytes (CBC) 2.6 K/uL (0.7-4.9); Basophils % 0.3 % (0-1.3); Hematocrit 37.5 % (36.0-45.0); Lymphocytes % 40.9 % (15.3-44.8); MPV 8.2 fL (7.6-11.3); RBC Red Blood Cell Count 3.91 M/uL (3.86-4.86)
[2020-11-11 00:30] LABS: ALT/SGPT 25 U/L (12-78); AST/SGOT 18 U/L (15-37); Albumin 3.5 g/dL (3.4-5.0); Alkaline Phosphatase 94 U/L (45-117); BUN Blood Urea Nitrogen 11 mg/dL (7-18); Bicarbonate 26 mmol/L (21-32); Bilirubin Direct 0.2 mg/dL (0-0.2); Bilirubin Total 0.6 mg/dL (0.2-1.0); Glucose Level 125 mg/dL (74-106); Magnesium 2.2 mg/dL (1.8-2.4); NT PRO-BNP 1199 pg/mL (<450); Potassium 3.9 mmol/L (3.5-5.1); Protein, Total 6.9 g/dL (6.4-8.2); Sodium Level 137 mmol/L (136-145); Troponin (Emerg Dept Use Only) < 0.02 ng/mL (0.0-0.045)
[2020-11-11 01:09] LABS: Protime INR 1.39
--- NOTE | 2020-11-11 01:50 | ER ---
Nurse's Notes [facility] Name: Radha Lara Age: 85 yrs Sex: Female : 1935 Arrival Date: 11/10/2020 Time: 19:24 Bed 15 Private MD: Diagnosis: Dehydration;Weakness Presentation: 11/10 19:28 Chief complaint: Patient's son or daughter states: Pt was here on Tuesday for jb4 weakness, dizziness, loss of appetite and left rib pain. She had a watch man put in on 10/22 and has not felt right since She is feeling worse so we came back to get checked out. Coronavirus screen: Client denies travel out of the [place] in the last 14 days. At this time, the client does not indicate any symptoms associated with coronavirus-19. Ebola Screen: No symptoms or risks identified at this time. Initial Sepsis Screen: Does the patient meet any 2 criteria? No. Patient's initial sepsis screen is negative. Does the patient have a suspected source of infection? No. Patient's initial sepsis screen is negative. Risk Assessment: Do you want to hurt yourself or someone else? Patient reports no desire to harm self or others. Onset of symptoms was October 22, 2020. Transition of care: patient was not received from another setting of care. 19:28 Method Of Arrival: Wheelchair jb4 19:28 Acuity: YOLANDE 3 jb4 Historical: - Allergies: 19:34 Aspirin; jb4 19:34 Clonidine; jb4 19:34 Codeine; jb4 19:34 Demerol; jb4 19:34 Ibuprofen; jb4 19:34 Iodinated Contrast Media - IV Dye; jb4 19:34 Lisinopril; jb4 19:34 Niacin; jb4 19:34 Nitrofurantoin; jb4 19:34 nitrous oxide; jb4 19:34 vicoden; jb4 19:34 Zoloft; jb4 - Home Meds: 19:34 amlodipine 10 mg tab once daily for Hypertension [Active]; carvedilol 12.5 mg Oral tab jb4 2 times per day [Active]; cranberry Oral twice a day [Active]; Crestor 40 mg Oral tab once daily [Active]; Eliquis 5 mg Oral tab 2 times per day [Active]; furosemide 40 mg/5 mL (8 mg/mL) Oral soln [Active]; hydralazine 100 mg Oral tab 3 times per day [Active]; irbesartan 150 mg Oral tab 1 tab once daily [Active]; magnesium oxide 500 mg Oral tab daily [Active]; levothyroxine 75 mcg tab 1 tab once daily [Active]; metformin 500 mg Oral Tb24 1 tab 2 times per day [Active]; Multiple Vitamins Oral tab daily [Active]; omeprazole 40 mg Oral cpDR 1 cap once daily [Active]; pantoprazole 40 mg Oral tab 1 tab once daily [Active]; Plavix 75 mg Oral tab 1 tab once daily [Active]; Probiotic Oral daily [Active]; Vimpat 50 mg Oral tab daily [Active]; sodium chloride 1 gram Oral tab 5 times per day [Active]; Vitamin D3 1,000 unit Oral chew daily [Active]; Vitamin B-12 2,000 mcg Oral TbER daily [Active]; vitamin E Oral once daily [Active]; - PMHx: 19:34 ADD/ADHD; Atrial Fib; CVA; acid reflux; Diabetes - NIDDM; Hyperlipidemia; Hypertension; jb4 Kidney stones; PE; Sleep Apnea; TIA; UTI; - PSHx: 19:34 Hysterectomy; Tonsillectomy; Cholecystectomy; CABG; jb4 - Immunization history:: Adult Immunizations up to date, Client reports receiving the 1st dose of the Covid vaccine, J\T\J Flu vaccine is not up to date. - Social history:: Smoking status: Patient denies any tobacco usage or history of. Patient/guardian denies using alcohol, street drugs. Screenin:00 Abuse screen: Denies threats or abuse. Nutritional screening: No deficits noted. jb4 Tuberculosis screening: No symptoms or risk factors identified. Fall Risk None identified. Assessment: 22:00 General: Appears in no apparent distress. uncomfortable, Behavior is calm, cooperative, jb4 appropriate for age. Pain: Denies pain. Neuro: Level of Consciousness is awake, alert, obeys commands, Oriented to person, place, time, situation, Hydrometer Finisher are equal bilaterally Moves all extremities. Full function Speech is normal, Facial symmetry appears normal, Pupils are PERRLA. Cardiovascular: Patient's skin is warm and dry. Respiratory: Airway is patent Respiratory effort is even, unlabored, Respiratory pattern is regular, symmetrical. GI: No signs and/or symptoms were reported involving the gastrointestinal system. : No signs and/or symptoms were reported regarding the genitourinary system. EENT: No signs and/or symptoms were reported regarding the EENT system. Derm: Skin is intact, Skin is pink, warm \T\ dry. Musculoskeletal: Circulation, motion, and sensation intact. Range of motion: intact in all extremities. 23:00 Reassessment: Patient appears in no apparent distress at this time. Patient and/or jb4 family updated on plan of care and expected duration. Pain level reassessed. Patient is alert, oriented x 3, equal unlabored respirations, skin warm/dry/pink. 11/11 00:00 Reassessment: Patient appears in no apparent distress at this time. Patient and/or jb4 family updated on plan of care and expected duration. Pain level reassessed. Patient is alert, oriented x 3, equal unlabored respirations, skin warm/dry/pink. 00:56 Reassessment: Patient appears in no apparent distress at this time. Patient and/or jb4 family updated on plan of care and expected duration. Pain level reassessed. Patient is alert, oriented x 3, equal unlabored respirations, skin warm/dry/pink. 02:16 Reassessment: Patient appears in no apparent distress at this time. Patient and/or jb4 family updated on plan of care and expected duration. Pain level reassessed. Patient is alert, oriented x 3, equal unlabored respirations, skin warm/dry/pink. Vital Signs: 11/10 19:28 BP 151 / 67; Pulse 83; Resp 18; Temp 97.9; Pulse Ox 75% on R/A; Weight 52.62 kg (R); jb4 Height 5 ft. 2 in. (157.48 cm) (R); Pain 5/10; 11/11 00:30 BP 134 / 56 RA Supine (auto/reg); Pulse 70; Pulse Ox 96% ; ds4 00:33 BP 104 / 89 RA Sitting (auto/reg); Pulse 80; Pulse Ox 96% ; ds4 00:36 BP 127 / 51 RA Standing (auto/reg); Pulse 94 MON; Pulse Ox 97% ; ds4 01:00 BP 127 / 57; Pulse 71; Resp 18; Pulse Ox 97% on R/A; jb4 02:00 BP 141 / 56; Pulse 72; Resp 17; Pulse Ox 96% on R/A; jb4 11/10 19:28 Body Mass Index 21.22 (52.62 kg, 157.48 cm) jb4 ED Course: 11/10 19:24 Patient arrived in ED. cl3 19:32 Triage completed. jb4 19:34 Arm band placed on right wrist. jb4 22:00 Patient has correct armband on for positive identification. Placed in gown. Bed in low jb4 position. Call light in reach. Side rails up X 1. Pulse ox on. NIBP on. 22:07 John Macedo NP is PHCP. pm1 22:07 Hari Simmons MD is Attending Physician. pm1 22:25 Jose Arteaga, RN is Primary Nurse. jb4 22:50 XRAY Chest (1 view) In Process Unspecified. EDMS 23:30 Initial lab(s) drawn, by in, sent to lab. Inserted saline lock: 22 gauge in left wrist, jb4 using aseptic technique. Blood collected. 11/11 01:49 Elli Britt MD is Referral Physician. pm1 02:18 No provider procedures requiring assistance completed. IV discontinued, intact, jb4 bleeding controlled, No redness/swelling at site. Pressure dressing applied. Administered Medications: 11/10 23:36 Drug: NS 0.9% 500 ml Route: IV; Rate: bolus; Site: left wrist; jb4 Outcome: 11/11 01:49 Discharge ordered by . pm1 02:18 Discharged to home ambulatory. jb4 02:18 Condition: stable 02:18 Discharge instructions given to patient, Instructed on discharge instructions, follow up and referral plans. Demonstrated understanding of instructions, follow-up care. 02:18 Patient left the ED. jb4 Signatures: Dispatcher [employer] EDMS José Guy ds4 John Macedo, LIANNE SODDER pm1 Jose Arteaga, RN RN jb4 Augie Sepulveda cl3
--- NOTE | 2020-11-11 01:50 | EDPHYS ---
Physician Documentation [facility] Name: Radha Lara Age: 85 yrs Sex: Female : 1935 Arrival Date: 11/10/2020 Time: 19:24 Bed 15 Private MD: ED Physician Hari Simmons HPI: 11/10 22:39 This 85 yrs old Female presents to ER via Wheelchair with complaints of pm1 Weakness, Dizziness. 22:39 The patient presents to the emergency department with weakness of the entire body, pm1 generalized weakness. 22:39 Onset: The symptoms/episode began/occurred 1 week(s) ago. Associated signs and pm1 symptoms: Pertinent positives: dizziness, Pertinent negatives: headache, vomiting, diarrhea. Severity of symptoms: in the emergency department the symptoms are unchanged. Current symptoms: Currently, the patient is not experiencing any symptoms. The patient has experienced similar episodes in the past, several times. The patient has been recently seen at the [facility] Emergency Department, for similar complaints labs were performed, X-rays were performed, Patient with the same complaints as last ER visit 2 days ago. Improvement in presentation is diarrhea resolved and patient is taking ensure x 4 PO daily. Daughter would like patient's TSH to be evaluated this time. Daughter is concerned that the patient might be depressed and has not been open to taking medications for it from Dr. Britt in the past. Historical: - Allergies: 19:34 Aspirin; jb4 19:34 Clonidine; jb4 19:34 Codeine; jb4 19:34 Demerol; jb4 19:34 Ibuprofen; jb4 19:34 Iodinated Contrast Media - IV Dye; jb4 19:34 Lisinopril; jb4 19:34 Niacin; jb4 19:34 Nitrofurantoin; jb4 19:34 nitrous oxide; jb4 19:34 vicoden; jb4 19:34 Zoloft; jb4 - Home Meds: 19:34 amlodipine 10 mg tab once daily for Hypertension [Active]; carvedilol 12.5 mg Oral tab jb4 2 times per day [Active]; cranberry Oral twice a day [Active]; Crestor 40 mg Oral tab once daily [Active]; Eliquis 5 mg Oral tab 2 times per day [Active]; furosemide 40 mg/5 mL (8 mg/mL) Oral soln [Active]; hydralazine 100 mg Oral tab 3 times per day [Active]; irbesartan 150 mg Oral tab 1 tab once daily [Active]; magnesium oxide 500 mg Oral tab daily [Active]; levothyroxine 75 mcg tab 1 tab once daily [Active]; metformin 500 mg Oral Tb24 1 tab 2 times per day [Active]; Multiple Vitamins Oral tab daily [Active]; omeprazole 40 mg Oral cpDR 1 cap once daily [Active]; pantoprazole 40 mg Oral tab 1 tab once daily [Active]; Plavix 75 mg Oral tab 1 tab once daily [Active]; Probiotic Oral daily [Active]; Vimpat 50 mg Oral tab daily [Active]; sodium chloride 1 gram Oral tab 5 times per day [Active]; Vitamin D3 1,000 unit Oral chew daily [Active]; Vitamin B-12 2,000 mcg Oral TbER daily [Active]; vitamin E Oral once daily [Active]; - PMHx: 19:34 ADD/ADHD; Atrial Fib; CVA; acid reflux; Diabetes - NIDDM; Hyperlipidemia; Hypertension; jb4 Kidney stones; PE; Sleep Apnea; TIA; UTI; - PSHx: 19:34 Hysterectomy; Tonsillectomy; Cholecystectomy; CABG; jb4 - Immunization history:: Adult Immunizations up to date, Client reports receiving the 1st dose of the Covid vaccine, J\T\J Flu vaccine is not up to date. - Social history:: Smoking status: Patient denies any tobacco usage or history of. Patient/guardian denies using alcohol, street drugs. ROS: 22:39 Constitutional: Negative for fever, chills, and weight loss, Cardiovascular: Negative pm1 for chest pain, palpitations, and edema, Respiratory: Negative for shortness of breath, cough, wheezing, and pleuritic chest pain, Abdomen/GI: Negative for abdominal pain, nausea, vomiting, diarrhea, and constipation, Back: Negative for injury and pain, MS/Extremity: Negative for injury and deformity, Skin: Negative for injury, rash, and discoloration. 22:39 Neuro: Positive for dizziness, weakness, Negative for altered mental status, headache, numbness, tingling. Exam: 22:39 Constitutional: This is a well developed, well nourished patient who is awake, alert, pm1 and in no acute distress. Head/Face: Normocephalic, atraumatic. 22:39 Back: No spinal tenderness. No costovertebral tenderness. Full range of motion. Skin: Warm, dry with normal turgor. Normal color with no rashes, no lesions, and no evidence of cellulitis. MS/ Extremity: Pulses equal, no cyanosis. Neurovascular intact. Full, normal range of motion. 22:39 Cardiovascular: Exam negative for acute changes, Rate: normal, Rhythm: regular, Pulses: no pulse deficits are appreciated. 22:39 Respiratory: Exam negative for acute changes, respiratory distress, Breath sounds: are clear throughout. 22:39 Abdomen/GI: Inspection: abdomen appears normal, Palpation: abdomen is soft and non-tender, in all quadrants. 22:39 Neuro: Exam negative for acute changes, Orientation: is normal, Mentation: is normal, Motor: is normal, moves all fours. Vital Signs: 19:28 BP 151 / 67; Pulse 83; Resp 18; Temp 97.9; Pulse Ox 75% on R/A; Weight 52.62 kg (R); jb4 Height 5 ft. 2 in. (157.48 cm) (R); Pain 5/10; 11/11 00:30 BP 134 / 56 RA Supine (auto/reg); Pulse 70; Pulse Ox 96% ; ds4 00:33 BP 104 / 89 RA Sitting (auto/reg); Pulse 80; Pulse Ox 96% ; ds4 00:36 BP 127 / 51 RA Standing (auto/reg); Pulse 94 MON; Pulse Ox 97% ; ds4 01:00 BP 127 / 57; Pulse 71; Resp 18; Pulse Ox 97% on R/A; jb4 02:00 BP 141 / 56; Pulse 72; Resp 17; Pulse Ox 96% on R/A; jb4 11/10 19:28 Body Mass Index 21.22 (52.62 kg, 157.48 cm) [facility] MDM: 11/10 22:12 Patient medically screened. [facility] 11/11 01:48 Data reviewed: vital signs. Data interpreted: Pulse oximetry: on room air is 97 %. pm1 Interpretation: normal. Counseling: I had a detailed discussion with the patient and/or guardian regarding: the historical points, exam findings, and any diagnostic results supporting the discharge/admit diagnosis, lab results, radiology results, the need for outpatient follow up, PCP tomorrow as scheduled, to return to the emergency department if symptoms worsen or persist or if there are any questions or concerns that arise at home. 11/10 22:25 Order name: Basic Metabolic Panel pm11/10 22:25 Order name: CBC with Diff pm11/10 22:25 Order name: LFT's pm11/10 22:25 Order name: Magnesium pm11/10 22:25 Order name: NT PRO-BNP pm11/10 22:25 Order name: PT-INR; Complete Time: 01:29 pm1 11/10 22:25 Order name: Troponin (emerg Dept Use Only); Complete Time: 00:44 pm1 11/10 22:25 Order name: XRAY Chest (1 view) pm11/10 22:25 Order name: TSH; Complete Time: 00:44 pm1 11/10 22:26 Order name: Basic Metabolic Panel; Complete Time: 00:44 EDMS 11/10 22:26 Order name: CBC with Automated Diff; Complete Time: 00:29 EDMS 11/10 22:26 Order name: Liver (Hepatic) Function; Complete Time: 00:44 EDMS 11/10 22:26 Order name: Magnesium; Complete Time: 00:44 EDMS 11/10 22:26 Order name: NT PRO-BNP; Complete Time: 00:44 EDMS 11/10 22:25 Order name: EKG; Complete Time: 22:27 pm1 11/10 22:25 Order name: Cardiac monitoring; Complete Time: 23:39 pm1 11/10 22:25 Order name: EKG - Nurse/Tech; Complete Time: 23:39 pm11/10 22:25 Order name: IV Saline Lock; Complete Time: 23:38 pm1 11/10 22:25 Order name: Labs collected and sent; Complete Time: 23:38 pm1 11/10 22:25 Order name: O2 Per Protocol; Complete Time: 23:38 pm1 11/10 22:25 Order name: O2 Sat Monitoring; Complete Time: 23:38 pm11/10 22:25 Order name: Orthostatic Blood Pressure; Complete Time: 00:47 pm1 11/10 22:27 Order name: EKG Electrocardiogram EDMS Administered Medications: 11/10 23:36 Drug: NS 0.9% 500 ml Route: IV; Rate: bolus; Site: left wrist; jb4 Disposition: 11/11 10:43 Co-signature as Attending Physician, Hari Simmons MD I agree with the assessment and iron plan of care. Disposition: 11/11/20 01:49 Discharged to Home. Impression: Dehydration, Weakness. - Condition is Stable. - Discharge Instructions: Dehydration, Elderly, Weakness, Rehydration, Elderly. - Medication Reconciliation Form, Thank You Letter, Antibiotic Education, Prescription Opioid Use form. - Follow up: Emergency Department; When: As needed; Reason: Worsening of condition. Follow up: Elli Britt MD; When: Tomorrow; Reason: Recheck today's complaints, Continuance of care, Re-evaluation by your physician. - Problem is new. - Symptoms have improved. Signatures: Dispatcher [employer] EDPR Hari Simmons MD MD cha Marinas, Patrick PERMANENT MOLD SUPERVISOR PERMANENT MOLD SUPERVISOR pm1 Jose Arteaga RN RN jb4 Corrections: (The following items were deleted from the chart) 11/10 22:32 22:26 Chest Single View ordered. [facility] 11/11 02:18 01:49 11/11/2020 01:49 Discharged to Home. Impression: Dehydration; Weakness. Condition jb4 is Stable. Forms are Medication Reconciliation Form, Thank You Letter, Antibiotic Education, Prescription Opioid Use. Follow up: Emergency Department; When: As needed; Reason: Worsening of condition. Follow up: Elli Britt; When: Tomorrow; Reason: Recheck today's complaints, Continuance of care, Re-evaluation by your physician. Problem is new. Symptoms have improved. pm1
[2020-11-11 04:07] VITALS: TEMP 97.9
[2020-11-11 04:22] VITALS: BP 141/56; O2SAT 96
--- NOTE | 2020-11-11 11:17 | RAD REPORT ---
EXAM DESCRIPTION: RAD - Chest Single View - 11/10/2020 10:50 pm CLINICAL HISTORY: Hypoxia. COMPARISON: None. TECHNIQUE: CTA of the chest was performed following intravenous administration of iodinated contrast . Axial soft tissue and bone window, and coronal and sagittal soft tissue window reconstructions were created and sent to PACS. 3D postprocessing was performed on an independent workstation, with images sent to PACS for subsequen t review. This exam was performed according to our departmental dose-optimization program, which includes autom ated exposure control, adjustment of the mA and/or kV according to patient size and/or use of iterati ve reconstruction technique. FINDINGS: Mild motion degradation. Vascular: Suboptimal evaluation of the distal pulmonary arteries due to streak artifact, possibly due to patient body habitus and motion degradation. No CT evidence of central acute pulmonary thromboemb olism, in the main pulmonary trunk, or right and left main pulmonary arteries. No evidence of aortic aneurysm or dissection. Lungs and pleura: Motion degraded. No pulmonary consolidation. No pleural effusion. No pneumothorax. Mediastinum and neck: No mediastinal lymphadenopathy by CT size criteria. Unremarkable appearance of the thyroid gland. Cardiac: No cardiomegaly or pericardial effusion. Abdomen: Hepatic steatosis. Musculoskeletal: No concerning osseous abnormality. Prior healed multilevel bilateral rib fractures. IMPRESSION: 1. Suboptimal exam due to motion degradation and patient body habitus. 2. No CTA evidence of central acute pulmonary thromboembolism. 3. No pulmonary consolidation or pleural effusions. 4. Hepatic steatosis. Electronically signed by: Cleopatra Escalante MD 11/10/2020 11:15 PM CDT Due to temporary technical issues with the PACS/Fluency reporting system, reports are being signed by the in house radiologists without review as a courtesy to insure prompt reporting. The interpreting radiologist is fully responsible for the content of the report.
--- NOTE | 2020-11-11 12:14 | EKG ---
Test Date: 2020-11-10 Test Time: 23:36:46 Edge Molder: WAYNE MEASUREMENT RESULTS: Intervals: Rate: 79 MO: QRSD: 94 QT: 412 QTc: 472 [place]: P: MO: QRS: 46 T: 212 INTERPRETIVE STATEMENTS: Atrial fibrillation Anterior infarct, age undetermined Abnormal ECG Compared to ECG 11/08/2020 21:14:11 Left ventricular hypertrophy no longer present ST (T wave) deviation no longer present Possible ischemia no longer present Myocardial infarct finding still present Electronically Signed On 11-11-20 12:13:19 CDT by Jass Lance
== END 2020-11-11 02:18 | disposition home or self-care (01) ==
LOC: ER 19:21
DX: E86.0 Dehydration (principal); I10 Essential (primary) hypertension; E11.9 Type 2 diabetes mellitus without complications; E78.5 Hyperlipidemia, unspecified; I48.91 Unspecified atrial fibrillation; Z79.01 Long term (current) use of anticoagulants; Z95.1 Presence of aortocoronary bypass graft; Z88.4 Allergy status to anesthetic agent; Z88.5 Allergy status to narcotic agent; Z88.6 Allergy status to analgesic agent; Z88.8 Allergy status to other drugs, medicaments and biological substances; Z91.041 Radiographic dye allergy status; Z91.048 Other nonmedicinal substance allergy status
CPT/HCPCS: 93005; 85025; 80048; 36415; 83735; 85610; 80076; 84443; 84484; 83880; 71045; J7040; 99284

== ENCOUNTER 2020-11-18 19:29 | Inpatient (IN) | payer OTHER ==
--- OUTSIDE RECORDS SUMMARY | 2020-11-18 19:34 | XMS REPORT | Continuity of Care Document ---
:1935 Author Organization [facility] t Address [address] [place] [address] Care Team Providers Name Role Phone MIR [...] Problem Active [place] fibrillati Fibrillati 617 Fa catsro on on 00:00: Practic e Gastroesop Gastroesop [...] [facility] ne 3-31 Clear 00:00: [facility] iodine DA Active U [facility] 3-29 Clear 00:00: [facility] codeine DA Active U [facility] 3-29 Clear 00:00: [facility] aspirin DA Active U [facility] 3-29 Clear 00:00: [facility] Aspirin Propensi Active palpitati [facility] [...] Active U [facility] 8-04 Clear 00:00: [facility] codeine DA Active U [facility] 8-04 Clear 00:00: [facility] aspirin DA Active U [facility] 8-04 Clear 00:00: [facility] ASPIRIN DA Active U [facility] 7-30 Clear 00:00: [facility] CITRUS DA Active U [facility] FRUITS 7-30 Clear 00:00: [facility] CODEINE DA Active U [facility] 7-30 Clear 00:00: [facility] IVP DYE DA Active U [facility] 7-30 Clear 00:00: [facility] POLLEN DA Active U [facility] 7-30 Clear 00:00: [facility] TOMATOE DA Active U [facility] 7-30 Clear 00:00: [facility] Zoloft Adverse Active Info Not [facility] Reaction Available [facility] Macrodan Adverse Active Info Not [facility] tin Reaction Available [facility] Lisinopr Adverse Active Info Not [facility] il Reaction Available [facility] Aspirin Adverse Active Info Not [facility] Reaction Available [facility] Nitrous Adverse Active Info Not [facility] oxide Reaction Available [facility] Iodine Adverse Active Info Not [facility] contrast Reaction Available [facility] es - dye [facility] Vicodin Adverse Active Info Not [facility] Reaction Available [facility] Niacin Adverse Active Info Not [facility] Reaction Available [facility] Aspirin Allergy Active Mild to [...] Date Quantity Comments Source Sex Assigned [employer] Tobacco use and 2019-04-30 2019-04-30 Never used IWLMER Dorsey kes - exposure 00:00:00 00:00:00 [facility] Smoking Status Start Date Stop Date Source [facility]ations Ordered Filled Start Stop Current Ordering Indication Dosage Frequency Signature Comments Components Source Medication Medication Date Date Medication? Clinician (SIG) Name Name Sodium Sodium 2020- No Na Britt [address] Chloride Chloride 8-17 02-12 [facility] 00[facility]: [facility]:00 Memoria 00 :00 [facility] [place] Yes Na Britt [address] [facility] Sodium Sodium 3-20 [facility] - 00:00: Memoria 00 [facility] carvedilol 2018-07 Yes 25mg Take 25 mg [...] times Center daily. hydrALAZINE 2018-07 Yes 100mg [id number] Take [address] [facility] (APRESOLINE 0-08 [id number] mg by L ukes - ) 100 [...] 40 MG 16:46: daily. Medical capsule 41 [facility] valsartan 2018-07 Yes 160mg QD Take [address] [facility] (DIOVAN) 0-08 mg by [facility] - 160 MG 16:46: mouth Medical tablet 41 daily. Center verapamil 2018-07 Yes 240mg QD Take [address] [facility] (VERELAN 0-08 mg by [facility] - PM) 240 MG 16:46: mouth Medica l 24 hr 41 nightly. [facility] capsule cyanocobala 2018-07 Yes 1000ug QD Take 1,[address] [facility] min 0-08 mcg by [facility]ukes - (VITAMIN 16:46: mouth Medical B-12) 1000 41 daily. [facility] MCG tablet cholecalcif 2018-07 Yes 1000U QD Take 1,[address] [facility] roly, 0-08 Units by [facility] - vitamin D3, 16:46: mouth Medic al 1,000 unit 41 daily. [facility] capsule clopidogrel 2018-07 Yes 75mg QD Take [address] [facility] (PLAVIX) 75 0-08 by mouth Luke s - mg tablet 16:46: daily. Medica l 41 [facility] sertraline 2018-07 Yes 25mg QD Take [address] (ZOLOFT) 25 0-08 by mouth Luke s - MG tablet 16:46: daily. Medica l 41 [facility] cranberry 2018-07 Yes 4200mg Q.5D Take 4,[address] conc-ascorb 0-08 mg by [facility] - ic acid 16:46: mouth 2 Medical (CRANBERRY 41 (two) Center CONCENTRATE times ) 140-100 daily. mg Cap Lactobac 2018-07 Yes 1{tbl} QD Take 1 [facility] 42-Bifid 0-08 tablet by [facility] - 8-colost-FO 16:46: mouth Medic al S 41 daily. [facility] (PROBIOTIC PLUS COLOSTRUM) 30-500-50 mg PwPk multivit-mi 2018-07 Yes 1{tbl} QD Take [address] n-ferrous 0-08 tablet by [facility] - fumarate 16:46: mouth Medical (MULTI 41 daily. [facility] VITAMIN) 9 mg iron/15 mL Liqd irbesartan Yes 150mg QD Take [address] (AVAPRO) 7-28 mg by [facility] - 150 MG 00:00: mouth Medical tablet 00 daily. [facility] amLODIPine Yes 10mg QD Take [address] (NORVASC) 7-28 by mouth [facility] - 10 MG 00:00: daily. Medical tablet 00 [facility] Estradiol Estradiol Yes Na Britt as [facility] 7-22 directed [facility] - 00:00: Memoria 00 [facility] HydrALAZINE HydrALAZINE Yes Na Britt [address] [facility] HCl HCl 5-14 with food [facility] - 00:00: Memoria 00 [facility] Tylenol Tylenol Yes Na Britt not [facility] Arthritis Arthritis defined Cyndi kes - Pain Pain [facility] Methenamine Methenamine Yes Na Britt [address] [facility] Hippurate Hippurate [facility] Irbesartan Irbesartan Yes Na Britt [address] [facility] kes - [facility] Vitamin Vitamin Yes Na Britt not [facility] B-12 B-12 defined [facility] Crestor Crestor Yes Na Britt [address] [facility] ONCE A DAY [facility] amlodipine amlodipine No 1 Q1D amlodipine [place] 5 mg tablet 5 mg tablet 5 mg F amily Take 1 Take 1 tablet Practic tablet tablet Take 1 e every day every day tablet by oral by oral every day route. route. by oral route. Metformin Metformin Yes Na Britt [address] [facility] HCl HCl with meals [facility] Vitamin E Vitamin E Yes Na Britt not [facility] defined [facility] Omeprazole Omeprazole Yes Na Britt TAKE [address] [facility] CAPSULE BY [facility] - MOUTH Memoria EVERY DAY [facility] carvedilol carvedilol No 1 BID carvedilol [place] 25 mg 25 mg 25 mg Family tablet Take tablet Take tablet Practic 1 tablet 1 tablet Take 1 e twice a day twice a day tablet by oral by oral twice a route. route. day by oral route. Amlodipine Amlodipine Yes Na Britt [address] [facility] Besylate Besylate [facility] Eliquis Eliquis Yes Na Britt [address] [facility] Multivitami Multivitami Yes Na Britt not [facility] n n defined [facility] Probiotic Probiotic Yes Na Britt not [facility] defined [facility] clopidogrel clopidogrel No 1 Q1D clopidogre [place] 75 mg 75 mg l 75 mg Family tablet Take tablet Take tablet Practic 1 tablet 1 tablet Take 1 e every day every day tablet by oral by oral every day route. route. by oral route. Trimethopri Trimethopri Yes Na Britt [address] [facility] m m [facility] Magnesium Magnesium Yes Na Britt not [facility] defined [facility] Levetiracet Levetiracet Yes Na Britt [address] [facility] am am [facility] Coreg Coreg Yes Na Britt not [facility] defined [facility] Crestor 40 Crestor 40 No 1 Q1D Crestor 40 Village mg tablet mg tablet mg tablet Family Take 1 Take 1 Take 1 Practic tablet tablet tablet e every day every day every day by oral by oral by oral route. route. route. Metformin Metformin Yes Na Britt TAKE [address] [facility] HCl HCl TABLET [facility] TW[facility] DAILY [facility] Rosuvastati Rosuvastati Yes Na Britt TAKE [address] [facility] n Calcium n Calcium TABLET BY [facility]TH [facility] DAILY l [facility] Sertraline Sertraline Yes Na Britt [address] [facility] [facility] HCl HCl [facility] Eliquis 5 Eliquis 5 No 1 BID Eliquis 5 Village mg tablet mg tablet mg tablet Family Take 1 Take 1 Take 1 Practic tablet tablet tablet e twice a day twice a day twice a by oral by oral day by route. route. oral route. Vitamin D3 Vitamin D3 Yes Na Britt [address] [facility] [facility] ent [facility] Cyanocobala Cyanocobala Yes Na Britt [address] [facility] min min [facility] Omeprazole Omeprazole Yes Na Britt [address] [facility] ONCE A DAY [facility] Plavix Plavix Yes Na Britt [address] [facility] hydralazine hydralazine No 1 TID hydralazin [facility] 100 mg 100 mg e 100 mg Family tablet Take tablet Take tablet Practic 1 tablet 3 1 tablet 3 Take 1 e times a day times a day tablet 3 by oral by oral times a route. route. day by oral route. Carvedilol Carvedilol Yes Na Britt as [facility] directed [facility] Levothyroxi Levothyroxi Yes Na Britt [address] [facility] [facility] ne Sodium ne Sodium in the [facility] es - morning on Memoria an empty l stomach [facility] Sodium Sodium Yes Na Britt TAKE [address] [facility] Chloride Chloride TABLET in Cyndi kes - AM and 1 Memoria tab EVERY l 6 HOURS [facility] Cranberry Cranberry Yes Na Britt [address] Concentrate Concentrate with meals [facility] irbesartan irbesartan No 1 Q1D irbesartan [facility] 150 mg 150 mg 150 mg Family tablet Take tablet Take tablet Practic 1 tablet 1 tablet Take 1 e every day every day tablet by oral by oral every day route. route. by oral route. metformin metformin No 1 BID metformin [facility] 500 mg 500 mg 500 mg Family tablet Take tablet Take tablet Practic 1 tablet 1 tablet Take 1 e twice a day twice a day tablet by oral by oral twice a route. route. day by oral route. omeprazole omeprazole No 1capsul Q1D omeprazole [facility] 40 mg 40 mg e(s) [...] Comments Source Height 2020-02-19 00:00:00 62 [in_i] [facility] Height 2019-10-16 00:00:00 62 [in_i] [facility] BMI (Body Mass 2019-10-16 00:00:00 23.8 kg/m2 Ramirez tao [facility] Index) Practice Body Weight 2019-10-16 00:00:00 130 [lb_av] [facility] Procedures This patient has no known procedures. Plan of Care Planned Activity Planned Date Details Comments Source Future Scheduled Test 2020-03-[address] [facility] 00:[facility]:00 (#1) [code = Medical Center INFLUENZA VACCINE (#1)] Future Scheduled Test 2019-10-[address] [facility] - 00:[facility]:00 measurement Medical Center (procedure) [code = 07346593] Future Scheduled Test 2019-07-[address] [facility] - 00:00:00 WELLNESS (YEAR 2 or Medical Center FIRST YEAR if no IPPE) [code = MEDICARE ANNUAL WELLNESS (YEAR 2 or FIRST YEAR if no IPPE)] Future Scheduled Test 2001 PNEUMOCOCCAL 65+ [facility]RS [facility] - 00:00:00 (1 of 1 - Medical Center [id number]) [code = PNEUMOCOCCAL 65+ YRS (1 of 1 - [id number] PCV13)] Future Scheduled Test 1946 DIABETIC EYE EXAM [facility] - 00:00:00 [code = DIABETIC EYE Medical Center EXAM] Future Scheduled Test [facility] examination Medical Center (regime/therapy) [code = 657100358] Future Scheduled Test [address] [facility] - 00:00:00 protein (procedure) Medical Center [code = 284765291] Future Appointment 2021-02-21 Reese Becker[facility] Family 00:00:00 [id number]; [address], [place] [address] Encounters Start End Encounter Admission Attending Care Care Encounter Source Date/Time Date/Time Type Type Clinicians Facility Department ID 2020-11-11 2020-11-11 Outpatient [facility] [id number] [facility] 2020-11-10 2020-11-10 Outpatient [facility] [id number] [facility] 2020-10-14 2020-10-14 Outpatient [facility] [id number] [facility] 2020-09-15 2020-09-15 Outpatient [facility] [id number] [facility] 2020-09-05 2020-09-05 Outpatient [facility] [id number] [facility] 2020-08-22 2020-08-22 Outpatient [facility] [id number] [facility] 2020-08-21 2020-08-21 [place] - [id number] V illage 00:00:00 00:00:00 [facility] eliana aguilar CHIEF PORT DIRECTOR: Medical - Practi c [address] [email or web address], [address] [address], [place] [address] , Ph. 2020-08-06 2020-08-06 Outpatient [facility] [id number] [facility] 2020-07-30 2020-07-30 Outpatient [facility] [id number] [facility] 2020-07-29 2020-07-29 Outpatient [facility] [id number] [facility] 2020-07-29 2020-07-29 Outpatient [facility] [id number] [facility] 2020-07-28 2020-07-28 Outpatient [facility] [id number] [facility] 2020-06-17 2020-06-17 Outpatient [facility] [id number] [facility] 2020-05-22 2020-05-22 Outpatient [facility] [id number] [facility] 2020-04-23 2020-04-23 [id number] 2020-04-16 2020-04-16 [facility] [id number] 2020-03-26 2020-03-26 [facility] [id number] 11:20:00 11:20:00 [facility] Medicine Outpati ent Clinics 2020-03-07 2020-03-07 [facility] [id number] 14:44:00 14:44:00 [facility] Outpati ent Clinics 2020-03-05 2020-03-05 [facility] [id number] 11:00:00 11:00:00 t Specialty/U Cyndi kes - Specialty rology [facility] [place] a /Urology Clinic l Clinic Outpati ent Clinics 2020-03-03 2020-03-03 [facility] [id number] 12:39:00 12:39:00 t [facility] Outpati ent Clinics 2020-03-03 2020-03-03 [facility] [id number] 12:15:00 12:15:00 t [facility] Outpati ent Clinics 2020-02-19 2020-02-19 Belle [facility] [place] - [id number] V illage 00:00:00 00:00:00 [facility] eliana aguilar CHIEF PORT DIRECTOR: Medical - Practi c [address] [email or web address], [address] [address], [place] [address] , Ph. 2020-01-18 2020-01-18 [facility] [id number] 10:39:00 10:39:00 [facility] l Medicine Outpati ent Clinics 2020-01-17 2020-01-17 [facility] [id number] 10:40:00 10:40:00 t Shelby Aero[employer] s - RingTu [facility] Medicine l Medicine Outpati ent Clinics 2020-01-01 2020-01-01 [facility] [id number] 13:55:00 13:55:00 t Social Touch s - Drive [facility] Medicine l Medicine Outpati ent Clinics 2019-12-20 2019-12-20 [facility] [id number] 09:43:00 09:43:00 t Social Touch s - [employer]Tu [facility] Medicine l Medicine Outpati ent Clinics 2019-12-18 2019-12-18 [facility] [id number] 11:20:00 11:20:00 t Social Touch s Meedor [facility] Medicine l Medicine Outpati ent Clinics 2019-12-04 2019-12-04 [facility] [id number] 10:00:00 10:00:00 t Specialty/U Cyndi kes - Specialty rology Mem[facility] a /Urology Clinic l Clinic Outpati ent Clinics 2019-12-03 2019-12-03 [facility] [id number] 11:31:00 11:31:00 t Social Touch s - [employer]Tu [facility] Medicine l Medicine Outpati ent Clinics 2019-11-26 2019-11-26 [facility] [id number] 08:43:00 08:43:00 t Social [employer] [address] [facility] Medicine l Medicine Outpati ent Clinics 2019-11-16 2019-11-16 [facility] [id number] 08:35:00 08:35:00 t Specialty/U Cyndi kes - Specialty rology Mem[facility] a /Urology Clinic l Clinic Outpati ent Clinics 2019-11-10 2019-11-10 [facility] [id number] 14:05:00 14:05:00 t [facility] Clean TeQ s - Road [facility] Medicine l Medicine Outpati ent Clinics 2019-10-17 2019-10-17 [facility] [id number] 14:55:00 14:55:00 t [facility] Family Medicine Medicine Outpati ent Clinics 2019-10-16 2019-10-16 Belle [facility] [place] - [id number] V illage 00:00:00 00:00:00 [facility] eliana aguilar CHIEF PORT DIRECTOR: Arlet - Emmie max [address] [email or web address], [address], [place] [address] , Ph. 2019-10-12 2019-10-12 [facility] [id number] 15:58:00 15:58:00 t [facility] [employer] [facility] Medicine Medicine Outpati ent Clinics 2019-10-01 2019-10-01 [facility] [id number] 15:42:00 15:42:00 t [facility] [employer] Medicine Medicine Outpati ent Clinics 2019-09-25 2019-09-25 [facility] [id number] 11:20:00 11:20:00 t [facility] [employer] Family Medicine l Medicine Outpati ent Clinics 2019-09-18 2019-09-18 [facility] [id number] 11:15:00 11:15:00 t Specialty/U Cyndi kes - Specialty rology [facility] a /Urology Clinic l Clinic Outpati ent Clinics 2019-09-14 2019-09-14 [facility] [id number] 11:32:00 11:32:00 t [facility] [employer] Family Medicine l Medicine Outpati ent Clinics 2019-09-04 2019-09-04 [facility] [id number] 11:20:00 11:20:00 t [facility] [employer] [facility] Medicine l Medicine Outpati ent Clinics 2019-09-04 2019-09-04 [facility] [id number] 10:00:00 10:00:00 t Specialty/U Cyndi kes - Specialty rology [facility] a /Urology Clinic l Clinic Outpati ent Clinics 2019-08-08 2019-08-08 [facility] [id number] 10:40:00 10:40:00 t [facility] [employer] Family Medicine l Medicine Outpati ent Clinics 2019-08-02 2019-08-02 [facility] [id number] 13:00:00 13:00:00 t Specialty/U Cyndi kes - Specialty rology Mem[facility] a /Urology Clinic l Clinic Outpati ent Clinics 2019-07-09 2019-07-09 [facility] [id number] 14:00:00 14:00:00 t [facility] [employer] [facility] Medicine l Medicine Outpati ent Clinics 2019-05-29 2019-05-29 [facility] [id number] 11:20:00 11:20:00 t [facility] [employer] l Medicine Outpati ent Clinics 2019-05-15 2019-05-15 [facility] [id number] 10:15:00 10:15:00 t Specialty/U Cyndi kes - Specialty rology Memori a /Urology Clinic l Clinic Outpati ent Clinics 2019-04-24 2019-04-24 [facility] [id number] 10:40:00 10:40:00 t [facility] [employer] Medicine l Medicine Outpati ent Clinics 2019-04-09 2019-04-09 [facility] [id number] 13:20:00 13:20:00 t [facility] [employer] Medicine l Medicine Outpati ent Clinics 2019-03-24 2019-03-24 [facility] [id number] 12:00:00 12:00:00 t Urgent Urgent Care L ukes - Care Clinic [facility] Clinic l Outpati ent Clinics 2019-03-15 2019-03-15 [facility] [id number] [address] 13:22:00 13:22:00 t Urgent Urgent Care L ukes - Care Clinic [facility] Clinic l Outpati ent Clinics 2019-03-13 2019-03-13 [facility] [id number] 10:39:00 10:39:00 t [facility] [employer] Medicine l Medicine Outpati ent Clinics 2019-03-12 2019-03-12 [facility] [id number] 10:30:00 10:30:00 t Urgent Urgent Care L ukes - Care Clinic [facility] l Outpati ent Clinics 2019-02-28 2019-02-28 [facility] [id number] 13:00:00 13:00:00 t Shelby AeroFS s - Drive [facility] Medicine l Medicine Outpati ent Clinics 2019-02-12 2019-02-12 [facility] [id number] 10:15:00 10:15:00 t Specialty/U Cyndi kes - Specialty rology [facility] [place] a /Urology Clinic l Clinic Outpati ent Clinics 2019-02-08 2019-02-08 [facility] [id number] 15:00:00 15:00:00 t Social Touch s - Drive [facility] Medicine l Medicine Outpati ent Clinics 2019-02-08 2019-02-08 [facility] [id number] 08:42:00 08:42:00 t Shelby AeroFS s - Drive [facility] l Medicine Outpati ent Clinics 2019-02-06 2019-02-06 [facility] [id number] 09:40:00 09:40:00 t Shelby AeroFS s - Drive [facility] Medicine Outpati ent Clinics 2019-01-09 2019-01-09 [facility] [id number] 10:40:00 10:40:00 t Shelby AeroFS s - Drive [facility] Medicine l Medicine Outpati ent Clinics 2019-01-03 2019-01-03 [facility] [id number] 13:07:00 13:07:00 t Shelby AeroFS s - Drive [facility] Medicine l Medicine Outpati ent Clinics 2018-12-28 2018-12-28 [facility] [id number] 14:00:00 14:00:00 t Shelby AeroFS s - Drive [facility] Medicine l Medicine Outpati ent Clinics 2018-09-14 2018-09-14 [facility] [id number] 09:26:00 09:26:00 t [facility] Outpati ent Clinics 2018-09-08 2018-09-08 [facility] [id number] 09:30:00 09:30:00 t [employer] [facility] Outpati ent Clinics 2018-08-07 2018-08-07 [facility] [id number] 08:45:00 08:45:00 [employer] [facility] Outpati ent Clinics 2018-02-20 2018-02-20 [facility] [id number] 14:30:00 14:30:00 [employer] [facility] 2018-02-03 2018-02-03 [facility] [id number] 09:00:00 09:00:00 [employer] [facility] ent Clinics Results Test Description Test Time Test Comments Results Result Comments Source GLUBED 2020-10-23 12:09:00 Test Item Value Reference Range Interpretation Comme nts GLUBED (test code = GLUBED) 215 MG/DL 70-110 H Performed by certified knife operator at [facility] [id number] 08:25:00 Test Item Value Reference Range Interpretation Comments GLUBED (test code = 152 MG/DL 70-110 H Performe d by certified GLUBED) knife operator at [facility] BASIC METABOLIC [id number] 04:54:00 Test Item Value Reference Range Interpretation [...] 9.0 mg/dL 8.0-10.5 N CA) CBC W/AUTO [id number] 04:42:00 Test Item Value Reference Range Interpretation [...] (test code NO = MDIFF) CBC W/AUTO [id number] 04:40:00 Test Item Value Reference Range Interpretation [...] MANUAL DIFF REQUIRED (test code = MDIFF) [id number] 22:32:00 Test Item Value Reference Range Interpretation Comments GLUBED (test code = 251 MG/DL 70-110 H Performe d by certified GLUBED) knife operator at [facility] [id number] 18:17:00 Test Item Value Reference Range Interpretation Comments GLUBED (test code = 186 MG/DL 70-110 H Performe d by certified GLUBED) knife operator at [facility] - XR CHEST 1 [id number] 16:30:00 [facility] ARGUETA : 1935 Sex: F FAX: Jaya Holm MD [phone] [place]: St: ADM FAX: Jossue Talamantes i, NP [phone] FAX: Elli Stanley DO [phone] Name: JAMES ARGUETA [facility] : 1935 Age/S: 85/F [address] [place] [address] Blvd Unit #: [id number] Loc: [place] [address] Phys: Jossue Reyes NP Acct: [id number] Dis Date: Status: ADM IN PHONE #: [phone] Exam Date: 10/22/20201612 FAX #: [phone] Reason: POST WATCHMAN EXAMS: CPT CODE: [id number] XR CHEST 1 V 74865 Portable single view AP chest INDICATION: Post [...] No evidence for acute cardiopulmonary disease. SL: SG-H at 1630 Reported and signed by: Fran Rios M.D. CC: Jaya Bunn MD; Jossue Reyes CHIEF PORT DIRECTOR; Elli Britt DO Technologist: RT Jamaal(R) Trnscrd Date/Time/By: 10/22/2020 (1629) : By: [email or web address] Orig Print D/T: S: 10/22/2020 (5596) PAGE 1 Signed ReportGLUBED 2020-10-22 16:07:00 Test Item Value Reference Range Interpretation Comments GLUBED (test code = 125 MG/DL 70-110 H Performe d by certified GLUBED) knife operator at [facility] [id number] 15:06:00 Test Item Value Reference Range Interpretation Comments ACT-ISTAT (test code 279 SEC 74-137 H Perform ed by certified = ACTI) knife operator at [facility] [id number] 12:40:00 Test Item Value Reference Range Interpretation Comments GLUBED (test code = 127 MG/DL 70-110 H Performe d by certified GLUBED) knife operator at [facility] Novel Coronavirus 2018 [id number] 07:25:00 Test Item Value Reference Range Interpretation [...] for the identification of SARS-CoV-2 RNA usingthe Prizeo M2000 Sy stem under the FDA Emergen cy UseAuthorizatio n. The testing is perf ormed by priscila naranjo in the procedures for the Prizeo M2000 molecular diagnostic SARS-CoV-2 dirk clements in vitro. - XR CHEST 2 [id number] 13:58:00 [facility] : 1935 Sex: F FAX: Jaya Holm MD [phone] [place]: St: PRE FAX: Elli Stanley DO [phone] Name: JAMES ARGUETA [facility] : 1935 Age/S: 85/F [address] [place] [address] Unit #: [id number] Loc: [place] [address] Phys: Jaya Bunn MD Acct: [id number] Dis Date: Status: PRE SDC PHONE #: [phone] Exam Date: 10/20/2020 1334 FAX #: [phone] Reason: PRE-OP WATCHMAN EXAMS: CPT CODE: [id number] XR CHEST 2 V 76348 Clinical Indication: Atrial fibrillation. Preoperative chest radiograph. Comparison: Noneavailable. Impression: Chest, 2 views. Prior median sternotomy. Cardiac silhouette is prominent without evidence of failure. No pleural effusion or pneumothorax. No acute osseous abnormality. Right upper quadrant surgical clips. SL: [id number] at 1358 Reported and signed by: Kelly Boogie M.D. CC: Jaya Bunn MD; Elli Ly Britt DO Technologist: RT Rajan(R) Trnscrd Date/Time/By: 10/20/2020 (5301) : By: [email or web address] Orig Print D/T: S: 10/20/2020 (9682) PAGE 1 Signed ReportBASIC METABOLIC [id number] 13:12:00 Test Item Value Reference Range Interpretation [...] code = 9.9 mg/dL 8.0-10.5 N CA) [id number] 13:12:00 Test Item Value Reference Range Interpretation Comments PREALBUMIN (test code = PREALB) 21.2 mg/dL 16.0-40.0 N PROTHROMBIN [id number] 13:10:00 Test Item Value Reference Range Interpretation [...] o prevent recurre nt infarct). CBC W/AUTO [id number] 12:58:00 Test Item Value Reference Range Interpretation [...] (test code NO = MDIFF) CBC W/AUTO [id number] 12:55:00 Test Item Value Reference Range Interpretation [...] DIFF REQUIRED (test code = MDIFF) [facility] [id number] 10:58:00Reason for exam:->strokeFINAL REPORT CLINICAL HISTORY: TIA [...] intact. There is no evidence for a [place] proximal branch vessel occlusion. Mild [...] artery stenosis, unchanged. No evidence for a [place] proximal branch vessel occlusion. Signed: Alexa Bolden MDReport Verified Date/Time: 05/01/2019 10:58:29 Reading Location: [address] Neuro Reading Room Electronically signed by: ALEXA BOLDEN M.D. on 10:58 AMCT, CAROTID, [id number] 10:58:00Reason for exam:->eval for TIAFINAL REPORT CLINICAL [...] intact. There is no evidence for a [place] proximal branch vessel occlusion. Mild [...] artery stenosis, unchanged. No evidence for a [place] proximal branch vessel occlusion. Signed: Alexa Bolden MDReport Verified Date/Time: 05/01/2019 10:58:29 Reading Location: [facility] C013 Neuro Reading Room Electronically signed by: ALEXA BOLDEN M.D. on 10:58 AMBASIC METABOLIC [id number] 06:04:00 Test Item Value Reference Range Interpretation [...] 0-0 (BEAKER) (test code = 413) TROPONIN [id number] 20:18:00 Test Item Value Reference Range Interpretation [...] neurological disease, and persistent tachyarrhythmia.MR, BRAIN, WITHOUT [id number] 19:07:00Reason for exam:->Ischemic Stroke EvaluationFINAL REPORT MR, [...] Hernandezeport Verified Date/Time: 04/30/2019 19:07:03 Reading Location: [address] Neuro Reading Room HEMOGLOBIN [id number] 10:33:00 Test Item Value Reference Range Interpretation Comments HEMOGLOBIN A1C (BEAKER) (test code = 6.6 % 4.3-6.1 H 368) FastingVITAMIN [id number] 09:00:00 Test Item Value Reference Range Interpretation [...] NOT APPLICABLE FOR DIALYSIS PATIEN TS. FastingLIPID [id number] 07:30:00 Test Item Value Reference Range Interpretation [...] 130-159 High 160-189 Very High >=190 FastingTROPONIN [id number] 07:28:00 Test Item Value Reference Range Interpretation [...] and persistent tachyarrhythmia.FastingCBC W/PLT COUNT & AUTO [id number] 05:43:00 Test Item Value Reference Range Interpretation [...] (BEAKER) (test code = 2801) NV, ANGIOGRAM, [id number] 11:37:00Reason for exam:->TIAsFINAL REPORT November 22, 2017 [...] guidance and strict sterile technique a 4 Vietnamese femoral sheath was inserted into the right common femoral artery. Through the sheath a 4 Vietnamese vertebral catheter was then advanced over the [...] demonstrates a critical supraclinoid ICA stenosis of ffuasnkjqhebg42%. There is delayed antegrade flow. The venous [...] MDReport Verified Date/Time: 11/22/2017 11:37:47 Reading Location: [facility] Y018 Neuro Angio Reading Room POCT- GLUCOSE [id number] 07:43:00 Test Item Value Reference Range Interpretation Comments POC-GLUCOSE METER 149 mg/dL 70-110 H TESTED AT [facility] 6720 (BEAKER) (test code = ISA [place] 1538) [address] [id number] 06:46:00 Test Item Value Reference Range Interpretation Comments MAGNESIUM (BEAKER) (test code = 2.0 mg/dL 1.6-2.6 627) BASIC METABOLIC [id number] 06:46:00 Test Item Value Reference Range Interpretation [...] S NOT APPLICABLE FOR DIALYSIS PATIEN TS. [id number] 06:33:00 Test Item Value Reference Range Interpretation [...] 2.5-3.5 for patients with mechanical heart valves.POCT-GLUCOSE [id number] 06:22:00 Test Item Value Reference Range Interpretation Comments POC-GLUCOSE METER 161 mg/dL 70-110 H TESTED AT [place] [address] ([facility]) (test code = ISA Norman [facility] 1538) [address] POCT-GLUCOSE [id number] 02:08:00 Test Item Value Reference Range Interpretation Comments POC-GLUCOSE METER 182 mg/dL 70-110 H TESTED AT [facility] [address] ([facility]) (test code = ISA [place] [facility] 1538) [address] POCT-GLUCOSE [id number] 19:30:00 Test Item Value Reference Range Interpretation Comments POC-GLUCOSE METER 146 mg/dL 70-110 H TESTED AT [place] [address] ([facility]) (test code = ISA [place] [facility] 1538) [address] CT, CAROTID, [id number] 14:54:00Please include aortaFINAL REPORT CT angiogram of [...] the left ICA terminus. There is also zfbz-yg-nmmmhvis multifocal narrowing of the right carotid siphon. [...] Mcdaniels Verified Date/Time: 11/21/2017 14:54:26 Reading Location: [facility] Radiology Reading Room H MEJIA [id number] 14:54:00FINAL REPORT CT angiogram of the upper [...] the left ICA terminus. There is also aopm-wi-wpjwinfk multifocal narrowing of the right carotid siphon. [...] Mcdaniels Verified Date/Time: 11/21/2017 14:54:26 Reading Location: [facility] Radiology Reading Room POCT-GLUCOSE [id number] 11:50:00 Test Item Value Reference Range Interpretation Comments POC-GLUCOSE METER 153 mg/dL 70-110 H TESTED AT [place] [address] ([facility]) (test code = [facility] 1538) [address] POCT-GLUCOSE [id number] 08:08:00 Test Item Value Reference Range Interpretation Comments POC-GLUCOSE METER 125 mg/dL 70-110 H TESTED AT [place] [address] ([facility]) (test code = [facility] 1538) [address] [id number] 06:43:00 Test Item Value Reference Range Interpretation Comments MAGNESIUM (BEAKER) (test code = 2.1 mg/dL 1.6-2.6 627) BASIC METABOLIC [id number] 06:43:00 Test Item Value Reference Range Interpretation [...] FOR DIALYSIS PATIEN TS. TSH/FREE T4 IF [id number] 22:12:00 Test Item Value Reference Range Interpretation Comments THYROID STIMULATING HORMONE 4.66 uIU/mL 0.35-4.94 (BEAKER) (test code = 772) [id number] 21:54:00 Test Item Value Reference Range Interpretation Comments MAGNESIUM (BEAKER) (test code = 2.0 mg/dL 1.6-2.6 627) BASIC METABOLIC [id number] 21:54:00 Test Item Value Reference Range Interpretation [...] NOT APPLICABLE FOR DIALYSIS PATIEN TS. LIPID [id number] 21:54:00 Test Item Value Reference Range Interpretation [...] Borderline 130-159 High 160-189 Very High >=190POCT-GLUCOSE [id number] 21:35:00 Test Item Value Reference Range Interpretation Comments POC-GLUCOSE METER 128 mg/dL 70-110 H TESTED AT [place] [address] ([facility]) (test code = [facility] [employer] [facility] 1538) [address] POCT-GLUCOSE [id number] 17:55:00 Test Item Value Reference Range Interpretation Comments POC-GLUCOSE METER 113 mg/dL 70-110 H TESTED AT [place] [address] ([facility]) (test code = [facility] 1538) [address] POCT-GLUCOSE [id number] 12:32:00 Test Item Value Reference Range Interpretation Comments POC-GLUCOSE METER 120 mg/dL 70-110 H TESTED AT [place] [address] ([facility]) (test code = [facility] [employer] [facility] 1538) [address] MR, MRA, BRAIN, WITHOUT [id number] 11:33:00Reason for exam:->Ischemic Stroke EvaluationFINAL REPORT MRA Head and Neck CLINICAL HISTORY: CVA TECHNIQUE: MRA of the head utilizing 3-D wuem-no-wrhmll technique, with 3-D reconstructions. MRA of the neck utilizing 2-D and 3-D yxkr-qa-atiity technique, with 3-D reconstructions. COMPARISON: None FINDINGS: [...] There is no other evidence for a [place] proximal branch vessel occlusion. There [...] MDReport Verified Date/Time: 11/20/2017 11:33:14 Reading Location: [address] Neuro Reading Room MR, MRA, NECK, WITHOUT IV [id number] 11:33:00Reason for exam:->Ischemic Stroke EvaluationFINAL REPORT MRA Head and Neck CLINICAL HISTORY: CVA TECHNIQUE: MRA of the head utilizing 3-D qbmv-ve-igctvu technique, with 3-D reconstructions. MRA of the neck utilizing 2- D and 3-D zcpq-wf-qdlxdz technique, with 3-D reconstructions. COMPARISON: None FINDINGS: [...] There is no other evidence for a [place] proximal branch vessel occlusion. There [...] Bolden Verified Date/Time: 11/20/2017 11:33:14 Reading Location: [address] Neuro Reading Room MR, BRAIN, WITHOUT [id number] 11:05:00Reason for exam:->Ischemic Stroke EvaluationFINAL REPORT MRI [...] Bolden Verified Date/Time: 11/20/2017 11:05:05 Reading Location: [address] Neuro Reading Room HEMOGLOBIN [id number] 09:08:00 Test Item Value Reference Range Interpretation Comments HEMOGLOBIN A1C (BEAKER) (test code = 6.1 % 4.3-6.1 368) POCT-GLUCOSE [id number] 08:27:00 Test Item Value Reference Range Interpretation Comments POC-GLUCOSE METER 125 mg/dL 70-110 H TESTED AT [facility] 6720 (BEAKER) (test code = IS[place] 1538) [address] TSH/FREE T4 IF [id number] 07:47:00 Test Item Value Reference Range Interpretation Comments THYROID STIMULATING HORMONE 5.97 uIU/mL 0.35-4.94 H (BEAKER) (test code = 772) VITAMIN [id number] 07:44:00 Test Item Value Reference Range Interpretation Comments VITAMIN B12 (BEAKER) (test code = 857 pg/mL 213-816 H 774) CBC W/PLT COUNT & AUTO [id number] 06:47:00 Test Item Value Reference Range Interpretation [...] PERCENT (BEAKER) (test code = 2801) POCT-GLUCOSE [id number] 22:09:00 Test Item Value Reference Range Interpretation Comments POC-GLUCOSE METER 130 mg/dL 70-110 H TESTED AT [facility] 6767 (BEAKER) (test code = ISA [place] 1538) [address]
[2020-11-18] MEDS ORDERED: ALBUTEROL 2.5 MG/3 ML NEB SOL ONE (21:50)
[2020-11-18] MEDS ORDERED: IPRATROPIUM BROM 0.5MG/2.5ML ONE (21:51)
[2020-11-18 22:31] LABS: Absolute Lymphocytes (CBC) 2.1 K/uL (0.7-4.9); Basophils % 0.3 % (0-1.3); Hematocrit 35.4 % (36.0-45.0); Lymphocytes % 18.7 % (15.3-44.8); MPV 7.9 fL (7.6-11.3)
[2020-11-18 22:32] LABS: Protime INR 1.21
[2020-11-18 22:42] LABS: ALT/SGPT 39 U/L (12-78); AST/SGOT 31 U/L (15-37); Albumin 3.2 g/dL (3.4-5.0); Alkaline Phosphatase 91 U/L (45-117); BUN Blood Urea Nitrogen 8 mg/dL (7-18); Bicarbonate 25 mmol/L (21-32); Bilirubin Direct 0.2 mg/dL (0-0.2); Bilirubin Total 0.6 mg/dL (0.2-1.0); Glucose Level 135 mg/dL (74-106); Magnesium 1.8 mg/dL (1.8-2.4); NT PRO-BNP 1650 pg/mL (<450); Potassium 3.8 mmol/L (3.5-5.1); Protein, Total 7.1 g/dL (6.4-8.2); Sodium Level 133 mmol/L (136-145); Troponin (Emerg Dept Use Only) < 0.02 ng/mL (0.0-0.045)
[2020-11-18] MEDS ORDERED: AZITHROMYCIN 500 MG INJ IVPB ONE (23:15)
[2020-11-18] MEDS ORDERED: NA CHLORIDE 0.9% 1,000 ML ONE (23:16)
[2020-11-18] MEDS ORDERED: NA CHLORIDE 0.9% 250 ML ONE (23:16)
[2020-11-18] MEDS ORDERED: CEFTRIAXONE/SWI 1gm 1 GM/10 ML SYR ONE (23:16)
--- NOTE | 2020-11-18 23:20 | ER ---
Nurse's Notes [facility] Name: Radha Lara Age: 85 yrs Sex: Female : 1935 Arrival Date: 11/18/2020 Time: 19:44 Bed 14 Private MD: Diagnosis: Pneumonia due to other specified bacteria Presentation: 11/18 19:50 Chief complaint: Patient's son or daughter states: daughter: she's was here 11/10/2020 ca1 and 2 days before that too. But she hasn't been better since. Now, she has a cough for 2 days. She sleeps all day, she's gotten more confused, more disoriented. She hardly eats and she feels real weak. Coronavirus screen: Client denies travel out of the [place] in the last 14 days. cough unrelated to allergies, Client presents with at least one sign or symptom that may indicate coronavirus-19. Standard/surgical mask placed on the client. Provider contacted for isolation considerations. Ebola Screen: Patient negative for fever greater than or equal to 101.5 degrees Fahrenheit, and additional compatible Ebola Virus Disease symptoms Patient denies exposure to infectious person. Patient denies travel to an Ebola-affected area in the 21 days before illness onset. No symptoms or risks identified at this time. Initial Sepsis Screen: Does the patient meet any 2 criteria? No. Patient's initial sepsis screen is negative. Does the patient have a suspected source of infection? No. Patient's initial sepsis screen is negative. Risk Assessment: Do you want to hurt yourself or someone else? Patient reports no desire to harm self or others. Onset of symptoms was November 18, 2020. 19:50 Method Of Arrival: Wheelchair ca1 19:50 Acuity: YOLANDE 3 ca1 Historical: - Allergies: 20:15 Aspirin; ca1 20:15 Codeine; ca1 20:15 Demerol; ca1 20:15 Ibuprofen; ca1 20:15 Iodinated Contrast Media - IV Dye; ca1 20:15 Lisinopril; ca1 20:15 Niacin; ca1 20:15 Nitrofurantoin; ca1 20:15 nitrous oxide; ca1 20:15 vicoden; ca1 20:15 Zoloft; ca1 20:15 Clonidine; ca1 - Home Meds: 20:15 amlodipine 10 mg tab once daily for Hypertension [Active]; carvedilol 12.5 mg Oral tab ca1 2 times per day [Active]; cranberry Oral twice a day [Active]; Crestor 40 mg Oral tab once daily [Active]; hydralazine 100 mg Oral tab 3 times per day [Active]; levothyroxine 75 mcg tab 1 tab once daily [Active]; irbesartan 150 mg Oral tab 1 tab once daily [Active]; magnesium oxide 500 mg Oral tab daily [Active]; metformin 500 mg Oral Tb24 1 tab 2 times per day [Active]; Multiple Vitamins Oral tab daily [Active]; pantoprazole 40 mg Oral tab 1 tab once daily [Active]; Plavix 75 mg Oral tab 1 tab once daily [Active]; Probiotic Oral daily [Active]; sodium chloride 1 gram Oral tab 5 times per day [Active]; Vitamin B-12 2,000 mcg Oral TbER daily [Active]; Vitamin D3 1,000 unit Oral chew daily [Active]; vitamin E Oral once daily [Active]; 21:40 Eliquis 2.5 mg oral tab 2 times per day [Active]; Vimpat 50 mg Oral tab 2 times per day iw [Active]; - PMHx: 20:15 Mirtazapine 7.5mg; ca1 20:15 acid reflux; ADD/ADHD; Atrial Fib; CVA; Diabetes - NIDDM; Hyperlipidemia; Hypertension; ca1 Kidney stones; PE; Sleep Apnea; TIA; UTI; - PSHx: 20:15 Watchman; ca1 - Immunization history:: [employer] 10/14/2020 Pneumococcal vaccine is up to date. - Social history:: Smoking status: Patient denies any tobacco usage or history of. Screenin:58 Abuse screen: Denies threats or abuse. Denies injuries from another. Nutritional iw screening: No deficits noted. Tuberculosis screening: No symptoms or risk factors identified. Fall Risk IV access (20 points). Assessment: 20:58 General: Appears in no apparent distress. Behavior is calm, cooperative. General: iw Reports fatigue for >3 days, Denies fever. Neuro: Level of Consciousness is awake, alert, obeys commands, Moves all extremities. Cardiovascular: Patient's skin is warm and dry. Respiratory: Reports cough that is productive. GI: Abdomen is flat, non-distended, Patient currently denies nausea, vomiting. : Denies burning with urination. 22:00 Reassessment: Patient appears in no apparent distress at this time. Patient and/or jb4 family updated on plan of care and expected duration. Pain level reassessed. Patient is alert, oriented x 3, equal unlabored respirations, skin warm/dry/pink. 23:00 Reassessment: Patient appears in no apparent distress at this time. Patient and/or jb4 family updated on plan of care and expected duration. Pain level reassessed. Patient is alert, oriented x 3, equal unlabored respirations, skin warm/dry/pink. 11/19 00:00 Reassessment: Patient appears in no apparent distress at this time. Patient and/or jb4 family updated on plan of care and expected duration. Pain level reassessed. Patient is alert, oriented x 3, equal unlabored respirations, skin warm/dry/pink. Vital Signs: 11/18 19:50 BP 135 / 65; Pulse 78; Resp 18 S; Temp 98.4(O); Pulse Ox 98% on R/A; Weight 52.62 kg ca1 (R); Height 5 ft. 2 in. (157.48 cm) (R); Pain 0/10; 23:00 BP 149 / 78; Pulse 80; Resp 18; Pulse Ox 93% on 2 lpm NC; jb4 11/19 00:58 BP 155 / 70; Pulse 78; Resp 18; Pulse Ox 96% on 3 lpm NC; jb4 11/18 19:50 Body Mass Index 21.22 (52.62 kg, 157.48 cm) ca1 ED Course: 11/18 19:44 Patient arrived in ED. ag3 20:10 Triage completed. ca1 20:15 Arm band placed on right wrist. ca1 20:51 Flavio Watters PA is PHCP. jr8 20:51 Chris Hamomnd MD is Attending Physician. jr8 21:45 Jose Arteaga, LAILA is Primary Nurse. jb4 22:14 XRAY Chest (1 view) In Process Unspecified. EDMS 23:17 Arben Martin DO is Hospitalizing Provider. jr8 11/19 01:01 No provider procedures requiring assistance completed. Patient admitted, IV remains in jb4 place. Administered Medications: 11/18 21:40 Drug: DuoNeb (albuterol 2.5 mg, ipratropium 0.5 mg) (3:1) (2.5 mg - 0.5 mg) 3 ml Route: jb4 Nebulizer; 23:10 Drug: Rocephin - (cefTRIAXone) 1 grams {Note: Administered IVP per pharmacy protocol jb4 and providers instruction..} Route: IVPB; Infused Over: 30 mins; Site: right hand; 23:15 Drug: Zithromax (azithromycin) 500 mg Route: IVPB; Infused Over: 1 hrs; Site: right jb4 hand; 23:15 Drug: NS 0.9% 500 ml Route: IV; Rate: bolus; Site: right hand; jb4 11/19 00:38 Drug: NS 0.9% 1000 ml Route: IV; Rate: 75 ml/hr; Site: right hand; jb4 Outcome: 11/18 23:19 Decision to Hospitalize by Provider. jr8 11/19 01:01 Admitted to Tele accompanied by tech, via stretcher, room 405, on monitor, with chart. jb4 Condition: stable Discharge instructions given to patient, family, Instructed on the need for admit, Demonstrated understanding of instructions. 01:22 Patient left the ED. jb4 Signatures: Dispatcher [employer] Priti Messina RN RN iw Flavio Watters PA PA jr8 Jose Arteaga RN RN jb4 Sade Keane 3 Yandy Luna RN RN ca1 Corrections: (The following items were deleted from the chart) 11/18 21:40 20:15 Home Meds: Eliquis 5 mg Oral tab 2 times per day; ca1 iw 21:40 20:15 Home Meds: furosemide 40 mg/5 mL (8 mg/mL) Oral soln; ca1 iw :40 20:15 Home Meds: omeprazole 40 mg Oral cpDR 1 cap once daily; ca1 iw 21:40 20:15 Home Meds: Vimpat 50 mg Oral tab daily; ca1 iw
--- NOTE | 2020-11-18 23:20 | EDPHYS ---
Physician Documentation [facility] Name: Radha Lara Age: 85 yrs Sex: Female : 1935 Arrival Date: 11/18/2020 Time: 19:44 Bed 14 Private MD: ED Physician Chris Hammond HPI: 11/18 21:57 This 85 yrs old Female presents to ER via Wheelchair with complaints of LOSS jr8 OF APPETITE, COUGH. 21:57 Patient seen twice about 1 week ago for fatigue, decreased appetite, and general jr8 illness. No acute findings were found on blood work, CT, or plain films. Patient and daughter stated that she is getting worse and now having cough. Severity of symptoms: At their worst the symptoms were moderate in the emergency department the symptoms are unchanged. It is unknown whether or not the patient has had similar symptoms in the past. The patient has been recently seen by a physician:. Historical: - Allergies: 20:15 Aspirin; ca1 20:15 Codeine; ca1 20:15 Demerol; ca1 20:15 Ibuprofen; ca1 20:15 Iodinated Contrast Media - IV Dye; ca1 20:15 Lisinopril; ca1 20:15 Niacin; ca1 20:15 Nitrofurantoin; ca1 20:15 nitrous oxide; ca1 20:15 vicoden; ca1 20:15 Zoloft; ca1 20:15 Clonidine; ca1 - Home Meds: 20:15 amlodipine 10 mg tab once daily for Hypertension [Active]; carvedilol 12.5 mg Oral tab ca1 2 times per day [Active]; cranberry Oral twice a day [Active]; Crestor 40 mg Oral tab once daily [Active]; hydralazine 100 mg Oral tab 3 times per day [Active]; levothyroxine 75 mcg tab 1 tab once daily [Active]; irbesartan 150 mg Oral tab 1 tab once daily [Active]; magnesium oxide 500 mg Oral tab daily [Active]; metformin 500 mg Oral Tb24 1 tab 2 times per day [Active]; Multiple Vitamins Oral tab daily [Active]; pantoprazole 40 mg Oral tab 1 tab once daily [Active]; Plavix 75 mg Oral tab 1 tab once daily [Active]; Probiotic Oral daily [Active]; sodium chloride 1 gram Oral tab 5 times per day [Active]; Vitamin B-12 2,000 mcg Oral TbER daily [Active]; Vitamin D3 1,000 unit Oral chew daily [Active]; vitamin E Oral once daily [Active]; 21:40 Eliquis 2.5 mg oral tab 2 times per day [Active]; Vimpat 50 mg Oral tab 2 times per day iw [Active]; - PMHx: 20:15 Mirtazapine 7.5mg; ca1 20:15 acid reflux; ADD/ADHD; Atrial Fib; CVA; Diabetes - NIDDM; Hyperlipidemia; Hypertension; ca1 Kidney stones; PE; Sleep Apnea; TIA; UTI; - PSHx: 20:15 Watchman; ca1 - Immunization history:: KOALA.CH 10/14/2020 Pneumococcal vaccine is up to date. - Social history:: Smoking status: Patient denies any tobacco usage or history of. ROS: 21:59 Eyes: Negative for injury, pain, redness, and discharge, ENT: Negative for injury, jr8 pain, and discharge, Neck: Negative for injury, pain, and swelling, Cardiovascular: Negative for chest pain, palpitations, and edema, Abdomen/GI: Negative for abdominal pain, nausea, vomiting, diarrhea, and constipation, Back: Negative for injury and pain, MS/Extremity: Negative for injury and deformity, Skin: Negative for injury, rash, and discoloration, Neuro: Negative for headache, weakness, numbness, tingling, and seizure. 21:59 Constitutional: Positive for body aches, chills, fatigue, malaise, poor PO intake. 21:59 Respiratory: Positive for cough, shortness of breath, wheezing. Exam: 21:59 Eyes: Pupils equal round and reactive to light, extra-ocular motions intact. Lids and jr8 lashes normal. Conjunctiva and sclera are non-icteric and not injected. Cornea within normal limits. Periorbital areas with no swelling, redness, or edema. ENT: Nares patent. No nasal discharge, no septal abnormalities noted. Tympanic membranes are normal and external auditory canals are clear. Oropharynx with no redness, swelling, or masses, exudates, or evidence of obstruction, uvula midline. Mucous membranes moist. Neck: Trachea midline, no thyromegaly or masses palpated, and no cervical lymphadenopathy. Supple, full range of motion without nuchal rigidity, or vertebral point tenderness. No Meningismus. Cardiovascular: Regular rate and rhythm with a normal S1 and S2. No gallops, murmurs, or rubs. Normal PMI, no JVD. No pulse deficits. Abdomen/GI: Soft, non-tender, with normal bowel sounds. No distension or tympany. No guarding or rebound. No evidence of tenderness throughout. Back: No spinal tenderness. No costovertebral tenderness. Full range of motion. Skin: Warm, dry with normal turgor. Normal color with no rashes, no lesions, and no evidence of cellulitis. MS/ Extremity: Pulses equal, no cyanosis. Neurovascular intact. Full, normal range of motion. Neuro: Awake and alert, GCS 15, oriented to person, place, time, and situation. Cranial nerves II-XII grossly intact. Motor strength 5/5 in all extremities. Sensory grossly intact. 21:59 Constitutional: The patient appears alert, awake, frail. 21:59 Respiratory: the patient does not display signs of respiratory distress, Respirations: normal, Breath sounds: rhonchi, that are moderate, are heard diffusely. Vital Signs: 19:50 BP 135 / 65; Pulse 78; Resp 18 S; Temp 98.4(O); Pulse Ox 98% on R/A; Weight 52.62 kg ca1 (R); Height 5 ft. 2 in. (157.48 cm) (R); Pain 0/10; 23:00 BP 149 / 78; Pulse 80; Resp 18; Pulse Ox 93% on 2 lpm NC; jb4 11/19 00:58 BP 155 / 70; Pulse 78; Resp 18; Pulse Ox 96% on 3 lpm NC; jb4 11/18 19:50 Body Mass Index 21.22 (52.62 kg, 157.48 cm) ca1 MDM: 11/18 20:51 Patient medically screened. jr8 23:17 Data reviewed: vital signs, nurses notes, lab test result(s), EKG, radiologic studies, jr8 plain films. Data interpreted: Pulse oximetry: on room air is 91 %. Interpretation: normal. Counseling: I had a detailed discussion with the patient and/or guardian regarding: the historical points, exam findings, and any diagnostic results supporting the discharge/admit diagnosis, lab results, radiology results, the need for further work-up and treatment in the hospital. 11/18 21:12 Order name: Basic Metabolic Panel jr8 11/18 21:12 Order name: CBC with Diff 11/18 21:12 Order name: LFT's 11/18 21:12 Order name: Magnesium [facility] 11/18 21:12 Order name: NT PRO-BNP 11/18 21:12 Order name: PT-INR; Complete Time: 22:46 [facility] 11/18 21:12 Order name: Troponin (emerg Dept Use Only); Complete Time: 22:43 [facility] 11/18 21:12 Order name: Blood Culture Adult (2) [facility] 11/18 21:12 Order name: Procalcitonin; Complete Time: 23:42 [facility] 11/18 21:13 Order name: Basic Metabolic Panel; Complete Time: 22:43 EDMS 11/18 21:13 Order name: CBC with Automated Diff; Complete Time: 22:46 EDMS 11/18 21:13 Order name: Liver (Hepatic) Function; Complete Time: 22:43 EDMS 11/18 21:13 Order name: Magnesium; Complete Time: 22:43 EDMS 11/18 21:13 Order name: NT PRO-BNP; Complete Time: 22:43 EDMS 11/18 21:12 Order name: XRAY Chest (1 view) 11/18 21:12 Order name: EKG; Complete Time: 21:13 [facility] 11/18 21:12 Order name: Cardiac monitoring; Complete Time: 21:38 [facility] 11/18 21:12 Order name: EKG - Nurse/Tech; Complete Time: 21:38 [facility] 11/18 21:12 Order name: IV Saline Lock; Complete Time: 22:11 [facility] 11/18 21:12 Order name: Labs collected and sent; Complete Time: 22:10 [facility] 11/18 21:12 Order name: O2 Per Protocol; Complete Time: 21:38 [facility] 11/18 21:12 Order name: O2 Sat Monitoring; Complete Time: 21:38 [facility] 11/18 23:21 Order name: SARS-COV-2 RT PCR; Complete Time: 23:42 EDMS Administered Medications: 21:40 Drug: DuoNeb (albuterol 2.5 mg, ipratropium 0.5 mg) (3:1) (2.5 mg - 0.5 mg) 3 ml Route: jb4 Nebulizer; 23:10 Drug: Rocephin - (cefTRIAXone) 1 grams {Note: Administered IVP per pharmacy protocol jb4 and providers instruction..} Route: IVPB; Infused Over: 30 mins; Site: right hand; 23:15 Drug: Zithromax (azithromycin) 500 mg Route: IVPB; Infused Over: 1 hrs; Site: right jb4 hand; 23:15 Drug: NS 0.9% 500 ml Route: IV; Rate: bolus; Site: right hand; jb4 11/19 00:38 Drug: NS 0.9% 1000 ml Route: IV; Rate: 75 ml/hr; Site: right hand; jb4 Disposition: 01:25 Co-signature as Attending Physician, Chris Hammond MD. rn Disposition: 11/18/20 23:19 Hospitalization ordered by Arben Martin for Inpatient Admission. Preliminary diagnosis is Pneumonia due to other specified bacteria. - Bed requested for Telemetry/MedSurg (Inpatient). - Status is Inpatient Admission. jb4 - Condition is Stable. - Problem is new. - Symptoms have improved. Signatures: Dispatcher [employer] [facility] Jennie See RN RN dw Priti Crawford RN RN iw Nieto, Roman, MD MD rn Roszak, Josh, PA PA jr8 Kevin Minaya, ART CONSERVATOR-C ART CONSERVATOR-Cla1 Jose Arteaga RN RN jb4 Yandy Luna RN RN ca1 Corrections: (The following items were deleted from the chart) 11/18 21:40 20:15 Home Meds: Eliquis 5 mg Oral tab 2 times per day; ca1 iw 21:40 20:15 Home Meds: furosemide 40 mg/5 mL (8 mg/mL) Oral soln; ca1 iw 21:40 20:15 Home Meds: omeprazole 40 mg Oral cpDR 1 cap once daily; ca1 iw 21:40 20:15 Home Meds: Vimpat 50 mg Oral tab daily; ca1 iw 22:35 21:59 CORONAVIRUS+MR.LAB.BRZ ordered. [facility] 11/19 00:07 11/18 23:19 Hospitalization Ordered by Arben Martin DO for Inpatient Admission. dw Preliminary diagnosis is Pneumonia due to other specified bacteria. Bed requested for Telemetry/MedSurg (Inpatient). Status is Inpatient Admission. Condition is Stable. Problem is new. Symptoms have improved. jr8 11/19 01:22 00:07 11/18/2020 23:19 Hospitalization Ordered by Arben Martin DO for Inpatient jb4 Admission. Preliminary diagnosis is Pneumonia due to other specified bacteria. Bed requested for Telemetry/MedSurg (Inpatient). Status is Inpatient Admission. Condition is Stable. Problem is new. Symptoms have improved. dw
--- NOTE | 2020-11-18 23:56 | P.HP ---
Certification for Inpatient Patient admitted to: Inpatient With expected LOS: >2 Midnights Patient will require the following post-hospital care: None Practitioner: I am a practitioner with admitting privileges, knowledge of patient current condition, hospital course, and medical plan of care. Services: Services provided to patient in accordance with Admission requirements found in Title 42 Section 412.3 of the Code of Federal Regulations Patient History Date of Service: 11/18/20 Primary Care Provider: Dr. Britt Reason for admission: Pneumonia History of Present Illness: 85-year-old female with history of atrial fibrillation on chronic anticoagulation therapy, diabetes mellitus type 2, hypertension, hyperlipidemia, hypothyroidism, CAD status post CABG presents emergency department for cough, shortness of breath, malaise/weakness. Patient reports increasing symptoms over the course of the last 1-2 weeks. Workup in the emergency department significant for white blood cell count 11.0 sodium 133 BNP 1650 pro calcitonin 0.05. Chest x-ray appears to show a mild right middle lobe pneumonia. Patient saturating between 89 and 91% on room air, requiring 2-3 L per nasal cannula, patient with rhonchi in both lung de souza, with productive cough. ED provider wishes to admit for further evaluation and management. Allergies aspirin Adverse Reaction (Verified 11/25/19 00:06) RAPID HEART RATE clonidine Adverse Reaction (Verified 11/25/19 00:06) Rapid Heart Rate codeine [Codeine] Adverse Reaction (Verified 11/25/19 00:06) CONFUSION hydrocodone bitartrate [From Vicodin] Adverse Reaction (Verified 11/25/19 00:06) CONFUSION iodine Adverse Reaction (Verified 11/25/19 00:06) NAUSEA lisinopril Adverse Reaction (Verified 11/25/19 00:06) COUGH niacin Adverse Reaction (Verified 11/25/19 00:06) Rash nitrofurantoin Adverse Reaction (Verified 11/25/19 00:06) Itching/Hives/Rash nitrous oxide [Nitrous Oxide] Adverse Reaction (Verified 11/25/19 00:06) Shortness of breath iodine dye Allergy (Intermediate, Uncoded 11/10/19 14:36) Itching/Hives/Rash Home Medications: Hydralazine HCl [Apresoline] 100 mg PO TID 02/18/19 Irbesartan [Avapro*] 150 mg PO DAILY 02/18/19 Magnesium Oxide [Magnesium] 1 tab PO DAILY 02/18/19 Metformin ER [Glucophage ER*] 500 mg PO BID 02/18/19 Multivitamin [Multivitamins] 1 cap PO DAILY 02/18/19 Rosuvastatin Calcium [Crestor] 40 mg PO BEDTIME 02/18/19 Vitamin E 1 tab PO DAILY 02/18/19 carvediloL [Coreg*] 12.5 mg PO BID 02/18/19 Pantoprazole [Protonix Tab*] 40 mg PO DAILYAC #30 tab 11/15/19 Levothyroxine [Synthroid*] 75 mcg PO [id number] 11/25/19 Sodium Chloride Tab [Sodium Chloride*] 1 gm PO QID #30 tab 11/26/19 Amlodipine [Norvasc*] 10 mg PO DAILY 04/12/20 Clopidogrel Bisulfate [Plavix*] 75 mg PO DAILY 04/12/20 L.acidoph,Paracasei, B.lactis [Probiotic] 1 each PO DAILY 04/12/20 Lacosamide [Vimpat*] 50 mg PO BID 04/12/20 Apixaban [Eliquis] 1 tab PO BID 30 Days #60 tablet 04/13/20 - Past Medical/Surgical History Diabetic: Yes -: History of nephrolithiasis -: History of TIA- 2 -: History of pulmonary embolism on chronic anti coagulation therapy -: Diabetes mellitus type 2, [id number] -: CAD -: GERD -: Atrial fibrillation on chronic anti coagulation therapy -: Hyperlipidemia -: HTN -: Depression with anxiety -: UTI -: Tonsillectomy -: Removal of colon polyps -: CABG -: Cholecystectomy -: Hysterectomy -: Bone Spurs removed -: Triple Bypass -: 3 Stents in right kidney Psychosocial/ Personal History: Patient lives in small [place] apartment and her daughter's house on the bottom floor. - Family History Mother -: Heart disease, Other (see notes) Notes: [place]. Age of 64 Father -: Heart disease Notes: Age of 77 - Social History Smoking Status: Never smoker Alcohol use: No CD- Drugs: No Caffeine use: No Place of Residence: Home Review of Systems 10-point ROS is otherwise unremarkable General: Chills, Weakness, Malaise Respiratory: Cough, Shortness of Breath, Sputum Physical Examination - Physical Exam General: Alert, In no apparent distress, Oriented x3 HEENT: Atraumatic, PERRLA, Other (Mucous membranes dry), EOMI, Sclerae nonicteric Neck: Supple, 2+ carotid pulse no bruit, No LAD, Without JVD or thyroid abnormality Respiratory: Normal air movement, Rhonchi/gurgles Cardiovascular: Normal S1 S2, Irregular heart rate/rhythm (AFib, rate controlled) Capillary refill: <2 Seconds Gastrointestinal: Normal bowel sounds, No tenderness Musculoskeletal: No tenderness Integumentary: No rashes Neurological: Normal speech, Normal strength at 5/5 x4 extr, Normal tone, Normal affect - Studies Laboratory Data (last 24 hrs) 11/18/20 22:00: PT 14.0 H, INR 1.21 11/18/20 22:00: WBC 11.00 H D, Hgb 12.3, Hct 35.4 L, Plt Count 192 11/18/20 22:00: Sodium 133 L, Potassium 3.8, BUN 8, Creatinine 0.47 L, Glucose 135 H, Magnesium 1.8, Total Bilirubin 0.6, AST 31, ALT 39, Alkaline Phosphatase 91 Assessment and Plan - Plan Assessment Dyspnea, hypoxia secondary to right middle lobe pneumonia Atrial fibrillation with history of PE/CVA on chronic anticoagulation therapy s/p watchman procedure 10/22/2020 CAD s/p CABG Hypertension, hyperlipidemia, GERD, hypothyroidism, seizure disorder Plan Dyspnea, hypoxia secondary to right middle lobe pneumonia: Continue with IV Rocephin, Zithromax, incentive spirometry, daily room air saturations, supplemental oxygen as needed to maintain saturations greater than 93%. Patient with some weakness will also have patient see physical therapy for ambulation. Continue Eliquis for DVT prophylaxis, anticipate clinical improvement next 48- 72 hr. Atrial fibrillation with history of PE/CVA on chronic anticoagulation therapy s/p watchman procedure 10/22/2020: Patient recently had watchman procedure, is still on Eliquis 2.5 mg b.i.d. and Plavix 75 mg daily. Patient is due to follow up with her employer relations representative in November to evaluate if the device is in place and functional so that she can be taken off for for anti coagulation therapy. Rate controlled at this time. CAD s/p CABG: Continue Plavix, other home medications. Stable this time. Hypertension, hyperlipidemia, GERD, hypothyroidism, seizure disorder: Obtain and continue home medications. Adjust as necessary. Discharge Plan: Home Plan to discharge in: 48 Hours - Advance Directives Does patient have a Living Will: Yes Does patient have a Durable POA for Healthcare: Yes - Code Status/Comfort Care Code Status Assessed: Yes (DNR) Critical Care: No Time Spent Managing Pts Care (In Minutes): 55
[2020-11-19] MEDS ORDERED: NA CHLORIDE 0.9% 1,000 ML IV SCH ×2 (01:11→07:06)
[2020-11-19] MEDS ORDERED: ONDANSETRON 4 MG/2 ML VIAL IV PRN (01:11)
[2020-11-19] MEDS: ACETAMINOPHEN 500 MG TAB PO PRN ×2 (02:11→17:11)
[2020-11-19 02:24] VITALS: BMI 21.1
[2020-11-19 04:12] LABS: Absolute Lymphocytes (CBC) 1.2 K/uL (0.7-4.9); Basophils % 0.3 % (0-1.3); Hematocrit 32.3 % (36.0-45.0); MPV 7.8 fL (7.6-11.3); RBC Red Blood Cell Count 3.35 M/uL (3.86-4.86)
[2020-11-19 04:33] LABS: ALT/SGPT 34 U/L (12-78); AST/SGOT 25 U/L (15-37); Albumin 2.8 g/dL (3.4-5.0); Alkaline Phosphatase 76 U/L (45-117); BUN Blood Urea Nitrogen 6 mg/dL (7-18); Bicarbonate 24 mmol/L (21-32); Bilirubin Total 0.4 mg/dL (0.2-1.0); Glucose Level 141 mg/dL (74-106); Magnesium 1.5 mg/dL (1.8-2.4); Potassium 3.4 mmol/L (3.5-5.1); Protein, Total 6.3 g/dL (6.4-8.2); Sodium Level 133 mmol/L (136-145)
[2020-11-19 07:12] LABS: Urine Appearance TURBID (Clear); Urine Bilirubin NEGATIVE (Negataive); Urine Blood NEGATIVE (Negative); Urine Color YELLOW (Yellow); Urine Glucose NEGATIVE (Negative); Urine Protein 1+ (Negative); Urine pH 7.5 (5.0-7.0)
[2020-11-19] MEDS: INSULIN -REGULAR HUMAN 50 UNIT/0.5 ML ML SQ SCH ×4 (07:30→21:00)
[2020-11-19 07:34] LABS: Urine Microscopic Reflex ORDER UMIC
[2020-11-19 07:35] LABS: Urine Amorphous Sediment 3+ /HPF (NONE SEEN); Urine Bacteria <20 /HPF (<20); Urine Mucus 1+ /HPF (NONE SEEN); Urine RBC <5 /HPF (NONE SEEN)
--- NOTE | 2020-11-19 07:36 | EKG ---
Test Date: 2020-11-18 Test Time: 21:30:06 Silver Chaser: MADIE MEASUREMENT RESULTS: Intervals: Rate: 76 NV: QRSD: 100 QT: 400 QTc: 450 [place]: P: NV: QRS: 29 T: 141 INTERPRETIVE STATEMENTS: Atrial fibrillation Anteroseptal infarct, age undetermined Abnormal ECG Compared to ECG 11/10/2020 23:36:46 No significant changes Electronically Signed On 11-19-20 07:34:59 CDT by Jass Lance
--- NOTE | 2020-11-19 08:08 | RAD REPORT ---
EXAM DESCRIPTION: Diane Single View11/18/2020 10:15 pm CLINICAL HISTORY: Cough COMPARISON: November 10, 2020 FINDINGS: The mid right lung is mildly hazy. The remainder lungs appear clear of acute infiltrate. The heart is mildly enlarged. Postsurgical changes involve the chest. IMPRESSION: Mid right lung is mildly suspicious for a mild infiltrate
[2020-11-19] MEDS: IRBESARTAN 150 MG TAB PO SCH (08:17)
[2020-11-19] MEDS: HYDRALAZINE HCL 25 MG TABLET PO SCH ×3 (08:18→23:32)
[2020-11-19] MEDS: AMLODIPINE 10 MG TAB PO SCH (08:19)
[2020-11-19] MEDS: MULTIVITAMIN TAB PO SCH (08:19)
[2020-11-19] MEDS: LACTOBACILLUS/ACIDOPHILUS TAB PO SCH (08:19)
[2020-11-19] MEDS: carvediloL 25 MG TAB PO SCH ×2 (08:19→23:32)
[2020-11-19] MEDS: CLOPIDOGREL 75 MG TABLET PO SCH (08:19)
[2020-11-19] MEDS: MAGNESIUM OXIDE 400 MG TAB PO SCH (08:19)
[2020-11-19] MEDS: LEVOTHYROXINE SOD 0.075 MG TAB PO SCH (08:20)
[2020-11-19] MEDS: PANTOPRAZOLE 40MG TABLET PO SCH (08:20)
[2020-11-19] MEDS: APIXABAN 2.5 MG TABLET PO SCH ×2 (08:23→23:33)
[2020-11-19] MEDS ORDERED: POTASSIUM 25 MEQ EFFERV TAB PO ONE (09:00)
[2020-11-19] MEDS ORDERED: CEFTRIAXONE 1 GM/NS 50 ML 1 GM/50 ML BAG IV SCH (09:00)
[2020-11-19] MEDS ORDERED: AZITHROMYCIN IV 500 MG in NA CHLORIDE 0.9% 250 ML IVPB SCH (09:00)
[2020-11-19] MEDS ORDERED: CEFTRIAXONE/SWI 1gm 1 GM/10 ML SYR IV SCH (09:00)
[2020-11-19] MEDS: LACOSAMIDE 50 MG TABLET PO SCH ×2 (09:38→23:34)
[2020-11-19] MEDS: SODIUM CHLORIDE 1 GM TAB PO SCH ×5 (09:38→23:33)
[2020-11-19] MEDS: VITAMIN D 400 UNIT TAB PO SCH (09:39)
--- NOTE | 2020-11-19 11:55 | RAD REPORT ---
EXAM DESCRIPTION: Diane Single View11/19/2020 11:45 am CLINICAL HISTORY: Pneumonia COMPARISON: November 18 FINDINGS: Mild mid right lung opacity has partially resolved. Remainder lungs appear clear. Heart remains enlarged. Postsurgical changes involve the chest IMPRESSION: Partial resolution in a mild mid right lung infiltrate
--- NOTE | 2020-11-19 13:00 | P.PN ---
Subjective Date of Service: 11/19/20 Primary Care Provider: Dr. Britt Chief Complaint: Pneumonia Subjective: Improving, Other (Still with cough still with cough.) Physical Examination - Vital Signs Temperature: 98.4 F Blood Pressure: 148/92 Pulse: 85 Respirations: 16 Pulse Ox (%): 90 - Studies Laboratory Data (last 24 hrs) 11/18/20 22:00: PT 14.0 H, INR 1.21 11/18/20 22:00: WBC 11.00 H D, Hgb 12.3, Hct 35.4 L, Plt Count 192 11/18/20 22:00: Sodium 133 L, Potassium 3.8, BUN 8, Creatinine 0.47 L, Glucose 135 H, Magnesium 1.8, Total Bilirubin 0.6, AST 31, ALT 39, Alkaline Phosphatase 91 Microbiology Data (last 24 hrs): 11/18/20 22:44 Blood - Blood Anaerobic Blood Culture - Final Assessment & Plan Discharge Plan: Other ([facility] facility) Plan to discharge in: 48 Hours Physician Review Additional Text: Physical exam: Patient alert, cooperative. No significant distress Heart: A. fib rate controlled Lungs: Some wheezing bilateral GI: Soft unremarkable Extremities: Good range of motion to upper and lower extremities without any fo vaishnavi deficits Impression: Dyspnea, hypoxia secondary to right middle lobe pneumonia with possible underlying COPD exacerbation Atrial fibrillation with history of PE/CVA on chronic anticoagulation therapy s/p watchman procedure 10/22/2020 CAD s/p CABG Hypertension Hyperlipidemia GERD Hypothyroidism Seizure disorder Plan Dyspnea, hypoxia secondary to right middle lobe pneumonia with possible underlying COPD exacerbation: Procalcitonin negative. Case discussed with pulmonology. Suspect COPD exacerbation with possible pneumonia. Will change IV antibiotic therapy to Augmentin. We will start Brovana. Continue incentive spirometer, provide medication for cough, and wean off oxygen. Advance care planning addressed in detail. Patient is DO NOT RESUSCITATE. Patient wishes to go to a skilled facility. Will consult service of services to help with this. Physical therapy to assess and monitor. Patient would benefit going to a skilled facility to continue her care at discharge. Likely discharge in the next 48 hours. Advance care [id number] minutes. Atrial fibrillation with history of PE/CVA on chronic anticoagulation therapy s/p watchman procedure 10/22/2020: Patient recently had watchman procedure, is still on Eliquis 2.5 mg b.i.d. and Plavix 75 mg daily. Patient to continue with Eliquis for a total of 45 days. She was to get reevaluated to determine when Eliquis can be discontinued. She will follow up with chief commercial officer in November for this. CAD s/p CABG: Continue Plavix, other home medications. Stable this time. Hypertension: Continue medication Hyperlipidemia: Continue medication GERD: Continue medication Hypothyroidism: Continue medication Seizure disorder: Continue medication. Time Spent Managing Pts Care (In Minutes): 55
[2020-11-19] MEDS: BENZONATATE 100 MG CAP PO PRN ×2 (14:25→21:30)
[2020-11-19] MEDS: ALBUTEROL 2.5 MG/3 ML NEB SOL NEB PRN (17:25)
[2020-11-19] MEDS: IPRATROPIUM BROM 0.5MG/2.5ML NEB PRN (17:25)
[2020-11-19] MEDS ORDERED: FUROSEMIDE 20 MG/ 2ML VIAL IV ONE (19:00)
[2020-11-19] MEDS: ARFORMOTEROL TARTRATE 15 MCG/2 ML VIAL.NEB NEB SCH (20:00)
[2020-11-19] MEDS: AMOX/K CLAV 500 MG TAB PO SCH (23:31)
[2020-11-19] MEDS: ROSUVASTATIN 10 MG TAB PO SCH (23:32)
[2020-11-19] MEDS: predniSONE 20 MG TAB PO SCH (23:33)
[2020-11-20 03:57] LABS: Absolute Lymphocytes (CBC) 0.9 K/uL (0.7-4.9); Basophils % 0.1 % (0-1.3); Hematocrit 32.3 % (36.0-45.0); Lymphocytes % 8.2 % (15.3-44.8); MPV 7.8 fL (7.6-11.3); RBC Red Blood Cell Count 3.39 M/uL (3.86-4.86)
[2020-11-20 04:06] LABS: ALT/SGPT 31 U/L (12-78); AST/SGOT 23 U/L (15-37); Albumin 2.7 g/dL (3.4-5.0); Alkaline Phosphatase 81 U/L (45-117); BUN Blood Urea Nitrogen 8 mg/dL (7-18); Bicarbonate 26 mmol/L (21-32); Bilirubin Total 0.5 mg/dL (0.2-1.0); Glucose Level 150 mg/dL (74-106); Magnesium 1.8 mg/dL (1.8-2.4); Potassium 3.1 mmol/L (3.5-5.1); Protein, Total 6.2 g/dL (6.4-8.2); Sodium Level 129 mmol/L (136-145)
[2020-11-20] MEDS: INSULIN -REGULAR HUMAN 50 UNIT/0.5 ML ML SQ SCH ×4 (07:30→20:48)
[2020-11-20] MEDS ORDERED: MAGNESIUM SULFATE 1 gm IVPB 1 GM/100 ML BAG IV ONE (08:00)
[2020-11-20] MEDS ORDERED: POTASSIUM 25 MEQ EFFERV TAB PO ONE (08:00)
--- NOTE | 2020-11-20 08:39 | P.CNS ---
Date of Consult: 11/20/20 Reason for Consult: Possible pneumonia Primary Care Provider: Dr. Britt Chief Complaint: Pneumonia History of Present Illness: Patient is 85 years of age is in chronic anticoagulation therapy diabetes hypertension admitted with being sick for the past 2 weeks cough shortness of breath amylase weakness admitted with a possible pneumonia she is still short of breath a little hypoxic Allergies sertraline [From Zoloft] Allergy (Verified 11/19/20 02:32) Rash aspirin Adverse Reaction (Verified 11/25/19 00:06) RAPID HEART RATE clonidine Adverse Reaction (Verified 11/25/19 00:06) Rapid Heart Rate codeine [Codeine] Adverse Reaction (Verified 11/25/19 00:06) CONFUSION hydrocodone bitartrate [From Vicodin] Adverse Reaction (Verified 11/25/19 00:06) CONFUSION iodine Adverse Reaction (Verified 11/25/19 00:06) NAUSEA lisinopril Adverse Reaction (Verified 11/25/19 00:06) COUGH niacin Adverse Reaction (Verified 11/25/19 00:06) Rash nitrofurantoin Adverse Reaction (Verified 11/25/19 00:06) Itching/Hives/Rash nitrous oxide [Nitrous Oxide] Adverse Reaction (Verified 11/25/19 00:06) Shortness of breath iodine dye Allergy (Intermediate, Uncoded 11/10/19 14:36) Itching/Hives/Rash Home Medications: Hydralazine HCl [Apresoline] 100 mg PO TID 02/18/19 Irbesartan [Avapro*] 150 mg PO DAILY 02/18/19 Magnesium Oxide [Magnesium] 1 tab PO DAILY 02/18/19 Metformin ER [Glucophage ER*] 500 mg PO BID 02/18/19 Multivitamin [Multivitamins] 1 cap PO DAILY 02/18/19 Rosuvastatin Calcium [Crestor] 40 mg PO BEDTIME 02/18/19 Vitamin E 2 tab PO DAILY 02/18/19 carvediloL [Coreg*] 12.5 mg PO BID 02/18/19 Levothyroxine [Synthroid*] 75 mcg PO DAILY 11/25/19 Amlodipine [Norvasc*] 10 mg PO DAILY 04/12/20 Clopidogrel Bisulfate [Plavix*] 75 mg PO DAILY 04/12/20 L.acidoph,Paracasei, B.lactis [Probiotic] 1 each PO DAILY 04/12/20 Lacosamide [Vimpat*] 50 mg PO BID 04/12/20 Apixaban [Eliquis] 1 tab PO BID 30 Days #60 tablet 04/13/20 Pantoprazole [Protonix Tab*] 40 mg PO DAILY 11/19/20 Sodium Chloride Tab [Sodium Chloride*] 1 gm PO 5XD 11/19/20 - Past Medical/Surgical History Diabetic: Yes -: History of nephrolithiasis -: History of TIA- 2 -: History of pulmonary embolism on chronic anti coagulation therapy -: Diabetes mellitus type 2, [id number] -: CAD -: GERD -: Atrial fibrillation on chronic anti coagulation therapy -: Hyperlipidemia -: HTN -: Depression with anxiety -: UTI -: Tonsillectomy -: Removal of colon polyps -: CABG -: Cholecystectomy -: Hysterectomy -: Bone Spurs removed -: Triple Bypass -: 3 Stents in right kidney Psychosocial/ Personal History: Patient lives in small aikzti[place]aj-fus apartment and her daughter's house on the bottom floor. - Family History Mother Medical History: Heart disease, Other (see notes) Notes: [place]. Age of 64 Father Medical History: Heart disease Notes: Age of 77 - Social History Smoking Status: Unknown if ever smoked Alcohol use: No CD- Drugs: No Caffeine use: No Place of Residence: Home Review of Systems General: Weakness Respiratory: Cough, Shortness of Breath Physical Examination Temp Pulse Resp BP Pulse Ox 98.0 F 80 20 160/70 H 95 11/20/20 08:00 11/20/20 08:00 11/20/20 08:00 11/20/20 08:00 11/20/20 08:00 General: Alert, Moderate distress Respiratory: Clear to auscultation bilaterally Cardiovascular: No edema, Normal S1 S2 Gastrointestinal: Normal bowel sounds, Soft and benign
[2020-11-20] MEDS: ALBUTEROL 2.5 MG/3 ML NEB SOL NEB PRN ×2 (08:48→14:00)
[2020-11-20] MEDS: ARFORMOTEROL TARTRATE 15 MCG/2 ML VIAL.NEB NEB SCH ×2 (08:48→19:20)
[2020-11-20] MEDS: IPRATROPIUM BROM 0.5MG/2.5ML NEB PRN ×3 (08:48→19:20)
[2020-11-20] MEDS: AMLODIPINE 10 MG TAB PO SCH (09:00)
[2020-11-20] MEDS: MAGNESIUM OXIDE 400 MG TAB PO SCH (09:00)
[2020-11-20] MEDS: MULTIVITAMIN TAB PO SCH (09:21)
[2020-11-20] MEDS: VITAMIN D 400 UNIT TAB PO SCH (09:21)
[2020-11-20] MEDS: IRBESARTAN 150 MG TAB PO SCH (09:21)
[2020-11-20] MEDS: LACOSAMIDE 50 MG TABLET PO SCH ×2 (09:22→20:02)
[2020-11-20] MEDS: SODIUM CHLORIDE 1 GM TAB PO SCH ×5 (09:22→21:00)
[2020-11-20] MEDS: HYDRALAZINE HCL 25 MG TABLET PO SCH ×3 (09:22→20:03)
[2020-11-20] MEDS: carvediloL 25 MG TAB PO SCH ×2 (09:22→20:02)
[2020-11-20] MEDS: CLOPIDOGREL 75 MG TABLET PO SCH (09:23)
[2020-11-20] MEDS: LACTOBACILLUS/ACIDOPHILUS TAB PO SCH (09:23)
[2020-11-20] MEDS: LEVOTHYROXINE SOD 0.075 MG TAB PO SCH (09:23)
[2020-11-20] MEDS: APIXABAN 2.5 MG TABLET PO SCH ×2 (09:23→20:02)
[2020-11-20] MEDS: PANTOPRAZOLE 40MG TABLET PO SCH (09:23)
[2020-11-20] MEDS: predniSONE 20 MG TAB PO SCH (09:24)
[2020-11-20] MEDS: AMOX/K CLAV 500 MG TAB PO SCH ×2 (09:24→20:03)
--- NOTE | 2020-11-20 10:02 | RAD REPORT ---
EXAM DESCRIPTION: RAD - Chest Pa And Lat (2 Views) - 11/20/2020 9:53 am CLINICAL HISTORY: follow up Pneumonia Chest pain. COMPARISON: Chest Single View dated 11/19/2020; Chest Single View dated 11/18/2020; Chest Single View dated 11/10/2020; Chest Single View dated 11/08/2020 FINDINGS: The lungs are clear. Small left pleural effusion. The heart is mildly enlarged with change s of a prior CABG. No displaced fractures. IMPRESSION: Small left pleural effusion. Previously noted pneumonia on the right appears largely resolved.
--- NOTE | 2020-11-20 11:48 | RAD REPORT ---
CLINICAL HISTORY: 85 years Female Fall, hit head, blood thinner use COMPARISON: 08/24/2020. TECHNIQUE: Contiguous axial CT images obtained through the brain without IV contrast. This exam was performed according to our department optimization program which includes automated exp osure control, adjustment of the mA and/or kv according to patient size and/or use of iterative recon struction technique. FINDINGS: The ventricles and sulci are mildly prominent. Mild microvascular ischemic changes. No mass lesions. No acute hemorrhage. Atherosclerotic calcifications. No fluid or significant mucosal thickening in the visualized paranasal sinuses. No depressed calvarial fractures. IMPRESSION: Mild atrophy and microvascular ischemic changes. No acute intracranial abnormality is identified. EXAM DESCRIPTION: Head C Spine Mpr Wo Con CLINICAL HISTORY: 85 years Female Fall, hit head, blood thinner use COMPARISON: None. TECHNIQUE: Contiguous axial images obtained through the cervical spine without IV contrast. Coronal and sagittal reformatted images obtained. This exam was performed according to our department optimization program which includes automated exp osure control, adjustment of the mA and/or kv according to patient size and/or use of iterative recon struction technique. FINDINGS: Mild curvature in the cervical spine convex right which could be secondary to patient posi tioning. Straightening of the normal lordosis. Mild anterolisthesis at C3-4, C4-5 and C6-7 likely degenerative. No acute fractures are identified. Degenerative changes. There does not appear to be significant spinal stenosis. There is moderate to s evere left neural foraminal stenosis at C5-6. Atherosclerotic calcifications. There is tortuosity in the innominate artery. There is mild nonspecific opacity in the upper lungs greater on the right. Changes from an infectio us/inflammatory process are not excluded. Some of these areas appear somewhat nodular measuring up to approximately 0.5 cm in diameter. IMPRESSION: No acute fractures are identified. Nonspecific opacity in the upper lungs greater on the right which appears somewhat nodular. The findi ngs could be from infectious/inflammatory process. Three month follow-up is recommended to document r esolution and exclude the possibility of underlying nodular lesions. Electronically signed by: Nik Joshua MD 11/19/2020 10:08 PM CDT Due to temporary technical issues with the PACS/Fluency reporting system, reports are being signed by the in house radiologists without review as a courtesy to insure prompt reporting. The interpreting radiologist is fully responsible for the content of the report.
[2020-11-20] MEDS: AZITHROMYCIN 250 MG TAB PO SCH (12:34)
--- NOTE | 2020-11-20 12:35 | P.CNS ---
Date of Consult: 11/20/20 Reason for Consult: Possible pneumonia Primary Care Provider: Dr. Britt Chief Complaint: Cough congestion shortness of breath History of Present Illness: Patient is 85 years of age has been sick for 2 weeks complaining of cough congestion shortness of breath no prior history of obstructive airways disease denies any lower extremity edema still not doing very well has productive sputum Allergies sertraline [From Zoloft] Allergy (Verified 11/19/20 02:32) Rash aspirin Adverse Reaction (Verified 11/25/19 00:06) RAPID HEART RATE clonidine Adverse Reaction (Verified 11/25/19 00:06) Rapid Heart Rate codeine [Codeine] Adverse Reaction (Verified 11/25/19 00:06) CONFUSION hydrocodone bitartrate [From Vicodin] Adverse Reaction (Verified 11/25/19 00:06) CONFUSION iodine Adverse Reaction (Verified 11/25/19 00:06) NAUSEA lisinopril Adverse Reaction (Verified 11/25/19 00:06) COUGH niacin Adverse Reaction (Verified 11/25/19 00:06) Rash nitrofurantoin Adverse Reaction (Verified 11/25/19 00:06) Itching/Hives/Rash nitrous oxide [Nitrous Oxide] Adverse Reaction (Verified 11/25/19 00:06) Shortness of breath iodine dye Allergy (Intermediate, Uncoded 11/10/19 14:36) Itching/Hives/Rash Home Medications: Hydralazine HCl [Apresoline] 100 mg PO TID 02/18/19 Irbesartan [Avapro*] 150 mg PO DAILY 02/18/19 Magnesium Oxide [Magnesium] 1 tab PO DAILY 02/18/19 Metformin ER [Glucophage ER*] 500 mg PO BID 02/18/19 Multivitamin [Multivitamins] 1 cap PO DAILY 02/18/19 Rosuvastatin Calcium [Crestor] 40 mg PO BEDTIME 02/18/19 Vitamin E 2 tab PO DAILY 02/18/19 carvediloL [Coreg*] 12.5 mg PO BID 02/18/19 Levothyroxine [Synthroid*] 75 mcg PO DAILY 11/25/19 Amlodipine [Norvasc*] 10 mg PO DAILY 04/12/20 Clopidogrel Bisulfate [Plavix*] 75 mg PO DAILY 04/12/20 L.acidoph,Paracasei, B.lactis [Probiotic] 1 each PO DAILY 04/12/20 Lacosamide [Vimpat*] 50 mg PO BID 04/12/20 Apixaban [Eliquis] 1 tab PO BID 30 Days #60 tablet 04/13/20 Pantoprazole [Protonix Tab*] 40 mg PO DAILY 11/19/20 Sodium Chloride Tab [Sodium Chloride*] 1 gm PO 5XD 11/19/20 - Past Medical/Surgical History Diabetic: Yes -: History of nephrolithiasis -: History of TIA- 2 -: History of pulmonary embolism on chronic anti coagulation therapy -: Diabetes mellitus type 2, [id number] -: CAD -: GERD -: Atrial fibrillation on chronic anti coagulation therapy -: Hyperlipidemia -: HTN -: Depression with anxiety -: UTI -: Tonsillectomy -: Removal of colon polyps -: CABG -: Cholecystectomy -: Hysterectomy -: Bone Spurs removed -: Triple Bypass -: 3 Stents in right kidney Psychosocial/ Personal History: Patient lives in small [id number] apartment and her daughter's house on the bottom floor. - Family History Mother Medical History: Heart disease, Other (see notes) Notes: [place]. Age of 64 Father Medical History: Heart disease Notes: Age of 77 - Social History Smoking Status: Unknown if ever smoked Alcohol use: No CD- Drugs: No Caffeine use: No Place of Residence: Home Review of Systems 10-point ROS is otherwise unremarkable General: Weakness Respiratory: Cough, Shortness of Breath Physical Examination Temp Pulse Resp BP Pulse Ox 98.0 F 80 20 160/70 H 95 11/20/20 08:00 11/20/20 09:22 11/20/20 08:00 11/20/20 09:22 11/20/20 08:00 General: Alert, Oriented x3, Moderate distress Respiratory: Clear to auscultation bilaterally, Diminished Cardiovascular: No edema, Normal S1 S2 - Problems (1) Pneumonia Current Visit: Yes Status: Acute Plan: 85-year-old admitted with 2 week history of cough congestion shortness of breath she has productive cough possible pneumonia patient is hypernatremic hypokalemic I suspect is from the IV Lasix echocardiogram done in 2019 was normal white count is normal cultures are negative so far rash labile changes on the chest x- ray repeat chest x-ray today is clear vital signs stable no evidence of volume overload on the x-ray Dc steroids plan for discharge tomorrow on Augmentin and Zithromax or DIS levofloxacin patient is anti coagulated on Eliquis Qualifiers: Pneumonia type: due to unspecified organism Lung location: unspecified part of lung
--- NOTE | 2020-11-20 15:58 | P.PN ---
Subjective Date of Service: 11/20/20 Primary Care Provider: Dr. Britt Chief Complaint: Cough congestion shortness of breath Subjective: Improving, Doing well (Still with cough. Less oxygen requirement noted.) Physical Examination - Vital Signs Temperature: 97.9 F Blood Pressure: 135/60 Pulse: 74 Respirations: 20 Pulse Ox (%): 95 - Studies Microbiology Data (last 24 hrs): 11/18/20 22:44 Blood - Blood Anaerobic Blood Culture - Final Assessment & Plan Discharge Plan: Other (alf facility) Plan to discharge in: 24 Hours Physician Review Additional Text: Physical exam: Patient alert, cooperative. No significant distress Heart: A. fib rate controlled Lungs: Some wheezing bilateral GI: Soft unremarkable Extremities: Good range of motion to upper and lower extremities without any focal deficits Impression: Dyspnea, hypoxia secondary to right middle lobe pneumonia with possible underlying COPD exacerbation Atrial fibrillation with history of PE/CVA on chronic anticoagulation therapy s/p watchman procedure 10/22/2020 CAD s/p CABG Hypertension Hyperlipidemia GERD Hypothyroidism Seizure disorder Plan Dyspnea, hypoxia secondary to right middle lobe pneumonia with possible underlying COPD exacerbation: Procalcitonin negative. Case discussed with pulmonology. Pulmonology to adjust antibiotic therapy. Continue with COPD medication. Patient is DO NOT RESUSCITATE. Social work working to get patient to skilled facility. Atrial fibrillation with history of PE/CVA on chronic anticoagulation therapy s/p watchman procedure 10/22/2020: Patient recently had watchman procedure, is still on Eliquis 2.5 mg b.i.d. and Plavix 75 mg daily. Patient to continue with Eliquis for a total of 45 days. She was to get reevaluated to determine when Eliquis can be discontinued. She will follow up with implant polisher in November for this. CAD s/p CABG: Continue Plavix, other home medications. Stable this time. Hypertension: Continue medication Hyperlipidemia: Continue medication GERD: Continue medication Hypothyroidism: Continue medication Seizure disorder: Continue medication. Time Spent Managing Pts Care (In Minutes): 55
[2020-11-20] MEDS ORDERED: ALBUTEROL 2.5 MG/3 ML NEB SOL NEB PRN (19:00)
[2020-11-20] MEDS: ROSUVASTATIN 10 MG TAB PO SCH (20:03)
[2020-11-20] MEDS ORDERED: POTASSIUM CL SA 10 MEQ TAB PO ONE (21:00)
[2020-11-21] MEDS: ACETAMINOPHEN 500 MG TAB PO PRN (03:45)
[2020-11-21 04:16] LABS: BUN Blood Urea Nitrogen 10 mg/dL (7-18); Bicarbonate 33 mmol/L (21-32); Glucose Level 129 mg/dL (74-106); Magnesium 2.4 mg/dL (1.8-2.4); Sodium Level 133 mmol/L (136-145)
[2020-11-21] MEDS: BENZONATATE 100 MG CAP PO PRN ×3 (05:00→21:12)
[2020-11-21] MEDS: INSULIN -REGULAR HUMAN 50 UNIT/0.5 ML ML SQ SCH ×4 (07:10→21:00)
--- NOTE | 2020-11-21 08:22 | ECHO ---
HEIGHT: 5 ft 2 in WEIGHT: 115 lb 6.4 oz DATE OF STUDY: 11/20/[address]: Trey Eaton MD 2-DIMENSIONAL: YES M.MODE: YES DOPPLER: YES COLOR FLOW: YES TDS: YES PORTABLE: DEFINITY: BUBBLE STUDY: DIAGNOSIS: DYSPNEA HYPOXEMIA CARDIAC HISTORY: CATHERIZATION: NO SURGERY: NO PROSTHETIC VALVE: NO PACEMAKER: NO MEASUREMENTS (cm) DIASTOLIC (NORMALS) SYSTOLIC (NORMALS) IVSd 1.1 (0.6-1.2) LA Diam 3.9 (1.9-4.0) LVEF 56% LVIDd 3.4 (3.5-5.7) LVIDs 2.4 (2.0-3.5) %FS 28% LVPWd 1.1 (0.6-1.2) Ao Diam 2.7 (2.0-3.7) 2 DIMENSIONAL ASSESSMENT: RIGHT ATRIUM: NORMAL LEFT ATRIUM: ENLARGED RIGHT VENTRICLE: NORMAL LEFT VENTRICLE: NORMAL TRICUSPID VALVE: MILD TRICUSPID REGURGITATION MITRAL VALVE: SEVERELY CALCIFIED PULMONIC VALVE: NORMAL AORTIC VALVE: NORMAL PERICARDIAL EFFUSION: NONE AORTIC ROOT: NORMAL LEFT VENTRICULAR WALL MOTION: NORMAL DOPPLER/COLOR FLOW: MODERATE MITRAL REGURGITATION. MILD TRICUSPID REGURGITATION. COMMENTS: NORMAL LEFT VENTRICULAR EJECTION FRACTION 55-60%. SEVERELY CALCIFIED MITRAL VALVE WITH MILD MITRAL STENOSIS AND MODERATE MITRAL REGURGITATION. MILD TRICUSPID REGURGITATION. PULMONARY HYPERTENSION WITH RIGHT VENTRICULAR SYSTOLIC PRESSURE OF 40 mmHg AND RIGHT ATRIAL PRESSURE. TECHNOLOGIST: FARHAN BATISTA
[2020-11-21] MEDS: LEVOTHYROXINE SOD 0.075 MG TAB PO SCH (08:51)
[2020-11-21] MEDS: HYDRALAZINE HCL 25 MG TABLET PO SCH ×3 (08:51→21:09)
[2020-11-21] MEDS: carvediloL 25 MG TAB PO SCH ×2 (08:52→21:09)
[2020-11-21] MEDS: AMLODIPINE 10 MG TAB PO SCH (08:52)
[2020-11-21] MEDS: SODIUM CHLORIDE 1 GM TAB PO SCH ×5 (08:53→21:09)
[2020-11-21] MEDS: PANTOPRAZOLE 40MG TABLET PO SCH (08:53)
[2020-11-21] MEDS: IRBESARTAN 150 MG TAB PO SCH (08:53)
[2020-11-21] MEDS: VITAMIN D 400 UNIT TAB PO SCH (08:54)
[2020-11-21] MEDS: LACTOBACILLUS/ACIDOPHILUS TAB PO SCH (08:54)
[2020-11-21] MEDS: CLOPIDOGREL 75 MG TABLET PO SCH (08:54)
[2020-11-21] MEDS: APIXABAN 2.5 MG TABLET PO SCH ×2 (08:54→21:12)
[2020-11-21] MEDS: MAGNESIUM OXIDE 400 MG TAB PO SCH (08:55)
[2020-11-21] MEDS: MULTIVITAMIN TAB PO SCH (08:55)
[2020-11-21] MEDS: AZITHROMYCIN 250 MG TAB PO SCH (08:56)
[2020-11-21] MEDS: AMOX/K CLAV 500 MG TAB PO SCH ×2 (09:06→21:09)
[2020-11-21] MEDS: LACOSAMIDE 50 MG TABLET PO SCH ×2 (11:12→21:12)
--- NOTE | 2020-11-21 12:02 | P.PN ---
Subjective Date of Service: 11/21/20 Primary Care Provider: Dr. Britt Chief Complaint: Cough congestion shortness of breath Subjective: Improving Physical Examination - Vital Signs Temperature: 97.4 F Blood Pressure: 122/58 Pulse: 72 Respirations: 18 Pulse Ox (%): 96 Assessment & Plan Discharge Plan: Other (custodial facility) Plan to discharge in: 48 Hours Physician Review Additional Text: Physical exam: Patient alert, cooperative. No significant distress. Currently on 2 L per nasal cannula. Patient reports improvement. Less cough noted today. Heart: A. fib rate controlled Lungs: Some wheezing bilateral GI: Soft unremarkable Extremities: Good range of motion to upper and lower extremities without any focal deficits Impression: Dyspnea, hypoxia secondary to right middle lobe pneumonia with COPD exacerbation complicated with moderate pulmonary hypertension and likely acute on chronic diastolic CHF Atrial fibrillation with history of PE/CVA on chronic anticoagulation therapy s/p watchman procedure 10/22/2020 CAD s/p CABG Hypertension Hyperlipidemia GERD Hypothyroidism Seizure disorder Plan Dyspnea, hypoxia secondary to right middle lobe pneumonia with COPD exacerbation complicated with moderate pulmonary hypertension and likely acute on chronic diastolic CHF: Patient continues to improve. Continue Augmentin and Zithromax. Echo shows moderate pulmonary hypertension. Spoke with pulmonology. We will start Aldactone 25 mg daily. Continue COPD medication. Continue to wean off oxygen. Continue physical therapy. Will check sputum culture. So far other cultures negative. Awaiting placement approval to go to skilled facility. Anticipate this will occur within the next 24 to 48 hours. Atrial fibrillation with history of PE/CVA on chronic anticoagulation therapy s/p watchman procedure 10/22/2020: Patient recently had watchman procedure, is still on Eliquis 2.5 mg b.i.d. and Plavix 75 mg daily. Patient to continue with Eliquis for a total of 45 days. She was to get reevaluated to determine when Eliquis can be discontinued. She will follow up with waterproofer in November for this. CAD s/p CABG: Continue Plavix, other home medications. Stable this time. Hypertension: Continue medication Hyperlipidemia: Continue medication GERD: Continue medication Hypothyroidism: Continue medication Seizure disorder: Continue medication. Time Spent Managing Pts Care (In Minutes): 55
[2020-11-21] MEDS: ARFORMOTEROL TARTRATE 15 MCG/2 ML VIAL.NEB NEB SCH ×2 (15:33→20:00)
[2020-11-21] MEDS: IPRATROPIUM BROM 0.5MG/2.5ML NEB PRN (20:00)
[2020-11-21] MEDS: ROSUVASTATIN 10 MG TAB PO SCH (21:09)
[2020-11-22 04:25] LABS: BUN Blood Urea Nitrogen 11 mg/dL (7-18); Bicarbonate 31 mmol/L (21-32); Glucose Level 123 mg/dL (74-106); Potassium 3.7 mmol/L (3.5-5.1); Sodium Level 134 mmol/L (136-145)
[2020-11-22] MEDS: IPRATROPIUM BROM 0.5MG/2.5ML NEB PRN (07:16)
[2020-11-22] MEDS: ARFORMOTEROL TARTRATE 15 MCG/2 ML VIAL.NEB NEB SCH ×2 (07:16→20:45)
[2020-11-22] MEDS: INSULIN -REGULAR HUMAN 50 UNIT/0.5 ML ML SQ SCH ×4 (07:30→19:49)
[2020-11-22] MEDS: MAGNESIUM OXIDE 400 MG TAB PO SCH (09:00)
[2020-11-22] MEDS: VITAMIN D 400 UNIT TAB PO SCH (09:00)
[2020-11-22] MEDS: AZITHROMYCIN 250 MG TAB PO SCH (09:00)
[2020-11-22] MEDS ORDERED: POTASSIUM CL SA 10 MEQ TAB PO ONE (09:00)
[2020-11-22] MEDS: LACTOBACILLUS/ACIDOPHILUS TAB PO SCH (09:16)
[2020-11-22] MEDS: HYDRALAZINE HCL 25 MG TABLET PO SCH ×3 (09:16→19:44)
[2020-11-22] MEDS: LEVOTHYROXINE SOD 0.075 MG TAB PO SCH (09:16)
[2020-11-22] MEDS: SPIRONOLACTONE 25 MG TABLET PO SCH (09:17)
[2020-11-22] MEDS: PANTOPRAZOLE 40MG TABLET PO SCH (09:17)
[2020-11-22] MEDS: APIXABAN 2.5 MG TABLET PO SCH ×2 (09:17→19:44)
[2020-11-22] MEDS: AMLODIPINE 10 MG TAB PO SCH (09:17)
[2020-11-22] MEDS: carvediloL 25 MG TAB PO SCH ×2 (09:17→19:47)
[2020-11-22] MEDS: MULTIVITAMIN TAB PO SCH (09:18)
[2020-11-22] MEDS: CLOPIDOGREL 75 MG TABLET PO SCH (09:18)
[2020-11-22] MEDS: IRBESARTAN 150 MG TAB PO SCH (09:20)
[2020-11-22] MEDS: LACOSAMIDE 50 MG TABLET PO SCH ×2 (09:21→19:45)
[2020-11-22] MEDS: AMOX/K CLAV 500 MG TAB PO SCH ×2 (09:25→19:44)
[2020-11-22] MEDS: SODIUM CHLORIDE 1 GM TAB PO SCH ×5 (09:26→19:47)
--- NOTE | 2020-11-22 13:25 | P.PN ---
Subjective Date of Service: 11/22/20 Primary Care Provider: Dr. Britt Chief Complaint: Cough congestion shortness of breath Subjective: Improving, Doing well Physical Examination - Vital Signs Temperature: 97.8 F Blood Pressure: 117/55 Pulse: 67 Respirations: 16 Pulse Ox (%): 94 Assessment & Plan Discharge Plan: Other (alf facility) Plan to discharge in: 48 Hours Physician Review Additional Text: Physical exam: Patient alert, cooperative. No significant distress. Currently on 1.5 L per nasal cannula. Patient reports improvement. Less cough noted today. Heart: A. fib rate controlled Lungs: Some wheezing bilateral GI: Soft unremarkable Extremities: Good range of motion to upper and lower extremities without any focal deficits Impression: Dyspnea, hypoxia secondary to right middle lobe pneumonia with COPD exacerbation complicated with moderate pulmonary hypertension and likely acute on chronic diastolic CHF Atrial fibrillation with history of PE/CVA on chronic anticoagulation therapy s/p watchman procedure 10/22/2020 CAD s/p CABG Hypertension Hyperlipidemia GERD Hypothyroidism Seizure disorder Plan Dyspnea, hypoxia secondary to right middle lobe pneumonia with COPD exacerbation complicated with moderate pulmonary hypertension and likely acute on chronic diastolic CHF: Patient continues to do well. Less oxygen requirement noted. Patient continues to improve. Continue Augmentin and Zithromax. Echo shows moderate pulmonary hypertension. Spoke with pulmonology. Patient now on Aldactone 25 mg daily. Continue COPD medication. Continue to wean off oxygen. Continue physical therapy. Will check sputum culture. So far other cultures negative. Awaiting placement approval to go to skilled facility. Anticipate this will occur within the next 24 to 48 hours. Atrial fibrillation with history of PE/CVA on chronic anticoagulation therapy s/p watchman procedure 10/22/2020: Patient recently had watchman procedure, is still on Eliquis 2.5 mg b.i.d. and Plavix 75 mg daily. Patient to continue with Eliquis for a total of 45 days. She was to get reevaluated to determine when Eliquis can be discontinued. She will follow up with iron plastic bullet maker in November for this. CAD s/p CABG: Continue Plavix, other home medications. Stable this time. Hypertension: Continue medication Hyperlipidemia: Continue medication GERD: Continue medication Hypothyroidism: Continue medication Seizure disorder: Continue medication. Time Spent Managing Pts Care (In Minutes): 55
[2020-11-22] MEDS: ROSUVASTATIN 10 MG TAB PO SCH (19:44)
[2020-11-22] MEDS: BENZONATATE 100 MG CAP PO PRN (19:47)
[2020-11-23] MEDS: ARFORMOTEROL TARTRATE 15 MCG/2 ML VIAL.NEB NEB SCH ×2 (07:29→19:25)
[2020-11-23] MEDS: IPRATROPIUM BROM 0.5MG/2.5ML NEB PRN ×2 (07:29→19:25)
[2020-11-23] MEDS: INSULIN -REGULAR HUMAN 50 UNIT/0.5 ML ML SQ SCH ×4 (07:30→20:26)
[2020-11-23 07:37] LABS: BUN Blood Urea Nitrogen 6 mg/dL (7-18); Bicarbonate 28 mmol/L (21-32); Glucose Level 118 mg/dL (74-106); Magnesium 2.1 mg/dL (1.8-2.4); Sodium Level 135 mmol/L (136-145)
[2020-11-23] MEDS: CLOPIDOGREL 75 MG TABLET PO SCH (07:57)
[2020-11-23] MEDS: LEVOTHYROXINE SOD 0.075 MG TAB PO SCH (07:57)
[2020-11-23] MEDS: HYDRALAZINE HCL 25 MG TABLET PO SCH ×3 (07:57→20:24)
[2020-11-23] MEDS: AZITHROMYCIN 250 MG TAB PO SCH (07:59)
[2020-11-23] MEDS: IRBESARTAN 150 MG TAB PO SCH (07:59)
[2020-11-23] MEDS: LACOSAMIDE 50 MG TABLET PO SCH ×2 (07:59→20:26)
[2020-11-23] MEDS: AMOX/K CLAV 500 MG TAB PO SCH ×2 (07:59→20:27)
[2020-11-23] MEDS: LACTOBACILLUS/ACIDOPHILUS TAB PO SCH (07:59)
[2020-11-23] MEDS: MULTIVITAMIN TAB PO SCH (08:00)
[2020-11-23] MEDS: SPIRONOLACTONE 25 MG TABLET PO SCH ×3 (08:00→20:26)
[2020-11-23] MEDS: MAGNESIUM OXIDE 400 MG TAB PO SCH (08:00)
[2020-11-23] MEDS: APIXABAN 2.5 MG TABLET PO SCH ×2 (08:00→20:25)
[2020-11-23] MEDS: carvediloL 25 MG TAB PO SCH ×2 (08:01→20:24)
[2020-11-23] MEDS: AMLODIPINE 10 MG TAB PO SCH (08:01)
[2020-11-23] MEDS: VITAMIN D 400 UNIT TAB PO SCH (08:02)
[2020-11-23] MEDS: SODIUM CHLORIDE 1 GM TAB PO SCH ×5 (08:03→22:50)
[2020-11-23] MEDS: PANTOPRAZOLE 40MG TABLET PO SCH (08:06)
--- NOTE | 2020-11-23 09:06 | P.PN ---
Subjective Date of Service: 11/23/20 Primary Care Provider: Dr. Britt Chief Complaint: Cough congestion shortness of breath Subjective: Improving, Doing well Physical Examination - Vital Signs Temperature: 97.6 F Blood Pressure: 168/73 Pulse: 76 Respirations: 18 Pulse Ox (%): 97 Assessment & Plan Discharge Plan: Group Home Plan to discharge in: 24 Hours Physician Review Additional Text: Physical exam: Patient alert, cooperative. No significant distress. Currently on 1.5 L per nasal cannula. Patient reports improvement. Less cough noted today. Heart: A. fib rate controlled Lungs: Better breath sounds noted today. Currently on nasal cannula. GI: Soft unremarkable Extremities: Good range of motion to upper and lower extremities without any focal deficits Impression: Dyspnea, hypoxia secondary to right middle lobe pneumonia with COPD exacerbation complicated with moderate pulmonary hypertension and likely acute on chronic diastolic CHF Atrial fibrillation with history of PE/CVA on chronic anticoagulation therapy s/p watchman procedure 10/22/2020 CAD s/p CABG Hypertension Hyperlipidemia GERD Hypothyroidism Seizure disorder Plan Dyspnea, hypoxia secondary to right middle lobe pneumonia with COPD exacerbation complicated with moderate pulmonary hypertension and likely acute on chronic diastolic CHF: Patient continues to improve. Less oxygen requirement noted. Continue Augmentin and Zithromax for total of 7 days. Echo shows moderate pulmonary hypertension. Continue Aldactone 25 mg daily. Continue 1500 cc/day fluid restriction. Continue COPD medication. Continue to wean off oxygen. Continue physical therapy. Awaiting placement approval to go to skilled facility. Anticipate this will occur within the next 24 to 48 hours. I will turn to the service over to the hospitalist team tomorrow. I will go plan of care with him. Atrial fibrillation with history of PE/CVA on chronic anticoagulation therapy s/p watchman procedure 10/22/2020: Patient recently had watchman procedure, is still on Eliquis 2.5 mg b.i.d. and Plavix 75 mg daily. Patient to continue with Eliquis for a total of 45 days. She was to get reevaluated to determine when Eliquis can be discontinued. She will follow up with site administrator in November for this. CAD s/p CABG: Continue Plavix, other home medications. Stable this time. Hypertension: Continue medication-Norvasc, Avapro, Coreg, and Hydralazine. Hyperlipidemia: Continue medication-Crestor GERD: Continue medication-Protonix Hypothyroidism: Continue medication-levofloxacin Seizure disorder: Continue medication-Vimpat. Time Spent Managing Pts Care (In Minutes): 55
--- NOTE | 2020-11-23 12:09 | P.PN ---
Subjective Date of Service: 11/23/20 Primary Care Provider: Dr. Britt Chief Complaint: Cough congestion shortness of breath Subjective: Improving (Patient is improving still little weak very alert responsive cooperative) Review of Systems General: Weakness Respiratory: Shortness of Breath Physical Examination - Vital Signs Temperature: 97.6 F Blood Pressure: 168/73 Pulse: 76 Respirations: 18 Pulse Ox (%): 97 - Physical Exam General: Alert, Oriented x3 Respiratory: Expiratory wheezes Assessment & Plan - Problems (Diagnosis) (1) Pneumonia Status: Acute Plan: Patient seems to be improving afebrile white count is normal blood pressure elevated increase spironolactone pneumonia has improved increase spironolactone to 25 b.i.d. is blood pressure is elevated ambulate possible discharge Qualifiers: Pneumonia type: due to unspecified organism Lung location: unspecified part of lung
[2020-11-23] MEDS: ROSUVASTATIN 10 MG TAB PO SCH (20:24)
[2020-11-23] MEDS: BENZONATATE 100 MG CAP PO PRN (22:50)
[2020-11-24 06:25] LABS: BUN Blood Urea Nitrogen 7 mg/dL (7-18); Bicarbonate 28 mmol/L (21-32); Glucose Level 130 mg/dL (74-106); Potassium 3.9 mmol/L (3.5-5.1); Sodium Level 136 mmol/L (136-145)
[2020-11-24] MEDS: INSULIN -REGULAR HUMAN 50 UNIT/0.5 ML ML SQ SCH ×4 (07:30→20:09)
[2020-11-24] MEDS: ARFORMOTEROL TARTRATE 15 MCG/2 ML VIAL.NEB NEB SCH ×3 (08:00→21:30)
[2020-11-24] MEDS: LACOSAMIDE 50 MG TABLET PO SCH ×2 (09:00→20:07)
[2020-11-24] MEDS ORDERED: POTASSIUM CL SA 10 MEQ TAB PO ONE (09:00)
[2020-11-24] MEDS: APIXABAN 2.5 MG TABLET PO SCH ×2 (09:41→20:06)
[2020-11-24] MEDS: AMOX/K CLAV 500 MG TAB PO SCH ×2 (09:41→20:03)
[2020-11-24] MEDS: AZITHROMYCIN 250 MG TAB PO SCH (09:41)
[2020-11-24] MEDS: PANTOPRAZOLE 40MG TABLET PO SCH (09:41)
[2020-11-24] MEDS: SPIRONOLACTONE 25 MG TABLET PO SCH ×2 (09:42→20:04)
[2020-11-24] MEDS: carvediloL 25 MG TAB PO SCH ×2 (09:43→20:06)
[2020-11-24] MEDS: HYDRALAZINE HCL 25 MG TABLET PO SCH ×3 (09:43→20:04)
[2020-11-24] MEDS: IRBESARTAN 150 MG TAB PO SCH (09:43)
[2020-11-24] MEDS: MULTIVITAMIN TAB PO SCH (09:43)
[2020-11-24] MEDS: AMLODIPINE 10 MG TAB PO SCH (09:44)
[2020-11-24] MEDS: LEVOTHYROXINE SOD 0.075 MG TAB PO SCH (09:45)
[2020-11-24] MEDS: MAGNESIUM OXIDE 400 MG TAB PO SCH (09:45)
[2020-11-24] MEDS: CLOPIDOGREL 75 MG TABLET PO SCH (09:45)
[2020-11-24] MEDS: LACTOBACILLUS/ACIDOPHILUS TAB PO SCH (09:45)
[2020-11-24] MEDS: SODIUM CHLORIDE 1 GM TAB PO SCH ×5 (09:46→20:03)
[2020-11-24] MEDS: VITAMIN D 400 UNIT TAB PO SCH (09:46)
--- NOTE | 2020-11-24 12:41 | P.DS ---
Discharge Date: 11/24/20 Primary Care Provider: Dr. Britt Disposition: TRANSFER TO SNF - REHAB Discharge Condition: GOOD Reason for Admission: Cough congestion shortness of breath Consultations: Pulmonary Brief History of Present Illness: 85-year-old female with history of atrial fibrillation on chronic anticoagulation therapy, diabetes mellitus type 2, hypertension, hyperlipidemia, hypothyroidism, CAD status post CABG presents emergency department for cough, shortness of breath, malaise/weakness. Patient reports increasing symptoms over the course of the last 1-2 weeks. Workup in the emergency department significant for white blood cell count 11.0 sodium 133 BNP 1650 pro calcitonin 0.05. Chest x-ray appears to show a mild right middle lobe pneumonia. Patient saturating between 89 and 91% on room air, requiring 2-3 L per nasal cannula, patient with rhonchi in both lung de souza, with productive cough. ED provider wishes to admit for further evaluation and management. Hospital Course: Patient is doing well. At this time, patient is stable for discharge home. Continue with antibiotic therapy for the pneumonia. Will arrange for home health with physical therapy. Stable for discharge home. Vital Signs/Physical Exam: Temp Pulse Resp BP Pulse Ox 97.4 F 73 18 99/55 L 95 11/24/20 12:00 11/24/20 12:00 11/24/20 12:00 11/24/20 12:00 11/24/20 12:00 General: Alert, In no apparent distress, Oriented x2 Laboratory Data at Discharge: WBC 11.10 K/uL (4.3-10.9) H 11/20/20 03:21 Hgb 11.1 g/dL (12.0-15.0) L 11/20/20 03:21 Hct 32.3 % (36.0-45.0) L 11/20/20 03:21 Plt Count 172 K/uL (152-406) 11/20/20 03:21 PT 14.0 SECONDS (9.5-12.5) H 11/18/20 22:00 INR 1.21 11/18/20 22:00 Sodium 136 mmol/L (136-145) 11/24/20 05:25 Potassium 3.9 mmol/L (3.5-5.1) 11/24/20 05:25 BUN 7 mg/dL (7-18) 11/24/20 05:25 Creatinine 0.49 mg/dL (0.55-1.3) L 11/24/20 05:25 Glucose 130 mg/dL (74-106) H 11/24/20 05:25 Magnesium 2.1 mg/dL (1.8-2.4) 11/23/20 06:49 Total Bilirubin 0.5 mg/dL (0.2-1.0) 11/20/20 03:21 AST 23 U/L (15-37) 11/20/20 03:21 ALT 31 U/L (12-78) 11/20/20 03:21 Alkaline Phosphatase 81 U/L (45-117) 11/20/20 03:21 Home Medications: Irbesartan [Avapro*] 150 mg PO DAILY 02/18/19 Magnesium Oxide [Magnesium] 1 tab PO DAILY 02/18/19 Metformin ER [Glucophage ER*] 500 mg PO BID 02/18/19 Multivitamin [Multivitamins] 1 cap PO DAILY 02/18/19 Rosuvastatin Calcium [Crestor] 40 mg PO BEDTIME 02/18/19 Vitamin E 2 tab PO DAILY 02/18/19 carvediloL [Coreg*] 12.5 mg PO BID 02/18/19 Levothyroxine [Synthroid*] 75 mcg PO DAILY 11/25/19 Clopidogrel Bisulfate [Plavix*] 75 mg PO DAILY 04/12/20 L.acidoph,Paracasei, B.lactis [Probiotic] 1 each PO DAILY 04/12/20 Lacosamide [Vimpat*] 50 mg PO BID 04/12/20 Apixaban [Eliquis] 1 tab PO BID 30 Days #60 tablet 04/13/20 Pantoprazole [Protonix Tab*] 40 mg PO DAILY 11/19/20 Sodium Chloride Tab [Sodium Chloride*] 1 gm PO 5XD 11/19/20 Amox/Clavulanate [Augmentin 500-125 mg Tab*] 500 mg PO BID #14 tab 11/24/20 Arformoterol Tartrate [Brovana] 15 mcg NEB BIDRESP #30 vial.neb 11/24/20 Azithromycin Tab [Zithromax*] 500 mg PO DAILY #5 tab 11/24/20 Benzonatate [Tessalon Perle*] 100 mg PO TID PRN #30 cap 11/24/20 Ipratropium Neb [Atrovent*] 0.5 mg NEB [id number] PRN #30 amp 11/24/20 Spironolactone [Aldactone*] 25 mg PO BID #30 tab 11/24/20 New Medications: Spironolactone [Aldactone*] 25 mg PO BID #30 tab Ipratropium Neb [Atrovent*] 0.5 mg NEB [id number] PRN #30 amp PRN Reason: Wheezing Amox/Clavulanate [Augmentin 500-125 mg Tab*] 500 mg PO BID #14 tab Arformoterol Tartrate [Brovana] 15 mcg NEB BIDRESP #30 vial.neb Benzonatate [Tessalon Perle*] 100 mg PO TID PRN #30 cap PRN Reason: Cough Azithromycin Tab [Zithromax*] 500 mg PO DAILY #5 tab Physician Discharge Instructions: OK TO DC IV AND DC to [facility] FOLLOW-UP WITH PRIMARY CARE PROVIDER IN 1-2 WEEKS FOLLOW-UP WITH CARDIOLOGY IN 1-2 WEEKS RETURN TO THE ER IF symptoms worsen CALL or TEXT DR. LOPEZ AT [phone] IF ANY QUESTIONS REGARDING HOSPITAL STAY. PLEASE CALL THE FLOOR AT [phone] IF ANY MEDICATION OR NURSING QUESTIONS. Diet: AHA Activity: Fall precautions Followup: Jass Lance MD [ACTIVE - CAN ADMIT] - 1-2 Weeks (Call to schedulae an appointment) Elli Britt DO [Primary Care Provider] - 1-2 Weeks (Call to schedule fo appoitnment) Time spent managing pt's care (in minutes): 35
[2020-11-24] MEDS: ROSUVASTATIN 10 MG TAB PO SCH (20:06)
[2020-11-24 21:33] VITALS: O2SAT 98
[2020-11-30 11:04] VITALS: BP 168/73; TEMP 97.6
== END 2020-11-24 21:45 | DRG 194 ==
LOC: ER 19:29 → ERHOLD 11-19 00:08 → 4TH 11-19 01:02
PROVIDERS: ADMIT Family Medicine; ATTEND Hospitalist
DX: J18.9 Pneumonia, unspecified organism (principal); E87.0 Hyperosmolality and hypernatremia; J44.1 Chronic obstructive pulmonary disease with (acute) exacerbation; J44.0 Chronic obstructive pulmonary disease with (acute) lower respiratory infection; I10 Essential (primary) hypertension; E11.9 Type 2 diabetes mellitus without complications; I48.91 Unspecified atrial fibrillation; E87.6 Hypokalemia; I27.20 Pulmonary hypertension, unspecified; I25.10 Atherosclerotic heart disease of native coronary artery without angina pectoris; E03.9 Hypothyroidism, unspecified; E78.5 Hyperlipidemia, unspecified; K21.9 Gastro-esophageal reflux disease without esophagitis; R09.02 Hypoxemia; Z88.8 Allergy status to other drugs, medicaments and biological substances; Z91.041 Radiographic dye allergy status; Z79.890 Hormone replacement therapy; Z79.84 Long term (current) use of oral hypoglycemic drugs; Z88.5 Allergy status to narcotic agent; Z79.02 Long term (current) use of antithrombotics/antiplatelets; Z79.01 Long term (current) use of anticoagulants; Z79.899 Other long term (current) drug therapy; Z86.73 Personal history of transient ischemic attack (TIA), and cerebral infarction without residual deficits; Z86.711 Personal history of pulmonary embolism; Z95.1 Presence of aortocoronary bypass graft; Z90.49 Acquired absence of other specified parts of digestive tract; Z90.710 Acquired absence of both cervix and uterus; Z66 Do not resuscitate; Z20.822 Contact with and (suspected) exposure to COVID-19
CPT/HCPCS: 36415; 70450; 71045; 71046; 72125; 80048; 80053; 80076; 81003; 81015; 82947; 83036; 83735; 83880; 84132; 84145; 84439; 84443; 84484; 85025; 85610; 87040; 87070; 87205; 93005; 93306; 94010; 94640; 96374; 96375; 97110; 97112; 97116; 97161; 97530; 99285; J0456; J0696; J1940; J2405; J3475; J7030; J7050; J7512; J7605; U0003